=== PATIENT | female | born 1960 | race American Indian/Alaskan Native ===

== ENCOUNTER 2017-02-01 12:24 | Inpatient (IN) | payer MEDICAID, MEDICARE ==
[2017-02-01 12:34] VITALS: BMI 25.0
[2017-02-01] MEDS ORDERED: Glucagon Recombinant 1 mg Inj IV STA (12:58)
--- NOTE | 2017-02-01 13:14 | RAD ---
HISTORY: pain after eating COMPARISON: 05/27/2016 FINDINGS: LUNGS: No active pulmonary disease. PLEURA: Possible very small left pleural effusion. Vague opacity at left costophrenic angle. No evidence of right pleural effusion. CARDIOVASCULAR: Normal. OSSEOUS STRUCTURES: No significant abnormalities. VISUALIZED UPPER ABDOMEN: Normal. OTHER FINDINGS: None. IMPRESSION: Possible small left pleural effusion. Otherwise unremarkable examination.
--- NOTE | 2017-02-01 13:18 | C.PDOC ---
History Of Present Illness 57 y/o female presents to the ED with complaints of foreign body sensation in her chest since eating a hotdog 2 days ago. Pt has been able to tolerate liquids and solids, has eaten a turkey sandwich and drank tea and water since without vomiting. She reports having pain after eating and drinking. Pt scheduled for dialysis today. Denies SOB, vomiting, diarrhea or any other complaints. Time Seen by Provider: 02/01/17 12:32 Chief Complaint (Nursing): Foreign Body History Per: Patient History/Exam Limitations: no limitations Onset/Duration Of Symptoms: Days Current Symptoms Are (Timing): Still Present Severity: Mild Recent travel outside of the [place]: No Past Medical History Reviewed: Historical Data, Nursing Documentation, Vital Signs Vital Signs: Last Vital Signs Temp 98.2 F 02/01/17 12:34 Pulse 75 02/01/17 12:34 Resp 18 02/01/17 12:34 BP 153/82 H 02/01/17 12:34 Pulse Ox 97 02/01/17 13:22 - Medical History PMH: Anxiety, CHF, Dementia, Diabetes, HIV, HTN, Hyperthyroidism, Hypothyroidism , End Stage Renal Disease, Chronic Kidney Disease - [facility] Procedures CENTRAL VENOUS CATHETER PLACEMENT WITH GUIDANCE (09/12/13) FLUOROSCOPY OF RIGHT HEART USING LOW OSMOLAR CONTRAST (05/25/16) HEMODIALYSIS (08/26/14) IMMOBILIZATION OF RIGHT LOWER EXTREMITY USING CAST (05/25/16) IMMOBILIZATION OF RIGHT UPPER LEG USING SPLINT (05/25/16) INSERTION OF INFUSION DEV INTO INF VENA CAVA, PERC APPROACH (04/02/16) INSERTION OF INFUSION DEVICE INTO R [facility], PERC APPROACH (05/25/16) PERFORMANCE OF URINARY FILTRATION, MULTIPLE (05/25/16) REMOVAL OF INFUSION DEVICE FROM LOWER VEIN, PERC APPROACH (04/02/16) REPOSITION RIGHT LOWER FEMUR, EXTERNAL APPROACH (05/25/16) TRANSFUSE NONAUT RED BLOOD CELLS IN PERIPH VEIN, PERC (05/25/16) Family History: States: Unknown Family Hx - Social History Hx Tobacco Use: Yes (former smoker) Hx Alcohol Use: No Hx Substance Use: No - Immunization History Hx Tetanus Toxoid Vaccination: Yes Hx Influenza Vaccination: No Hx Pneumococcal Vaccination: No Review Of Systems Except As Marked, All Systems Reviewed And Found Negative. Constitutional: Negative for: Fever ENT: Positive for: Other (foreign body sensation in chest) Respiratory: Negative for: Shortness of Breath Gastrointestinal: Negative for: Vomiting, Diarrhea Physical Exam - Physical Exam Appears: Non-toxic, No Acute Distress Skin: Warm, Dry, No Rash Head: Atraumatic, Normacephalic Oral Mucosa: Moist Throat: Normal, No Erythema Neck: Normal, Normal ROM, Supple Chest: Symmetrical Cardiovascular: Rhythm Regular, No Murmur Respiratory: Normal Breath Sounds, No Rales, No Rhonchi, No Wheezing Gastrointestinal/Abdominal: Normal Exam, Soft, No Tenderness Extremity: Normal ROM, Other (Right AKA) Neurological/Psych: Oriented x3, Normal Speech ED Course And Treatment - Laboratory Results Result Diagrams: 02/01/17 13:44 02/01/17 13:44 ECG: Interpreted By Me, Viewed By Me ECG Rhythm: Sinus Rhythm Interpretation Of ECG: No acute ischemia Rate From EC (BPM) O2 Sat by Pulse Oximetry: 97 (room air) Pulse Ox Interpretation: Normal Progress Note: Plan: EKG, labs, CXR, glucagon, pepcid, zofran Disposition - Disposition Disposition: HOSPITALIZED Disposition Time: 13:59 Condition: STABLE - Clinical Impression Clinical Impression: Dysphagia - Scribe Statement The provider has reviewed the documentation as recorded by the Jesus Vital Provider Attestation: All medical record entries made by the Jesus were at my direction and personally dictated by me. I have reviewed the chart and agree that the record accurately reflects my personal performance of the history, physical exam, medical decision making, and the department course for this patient. I have also personally directed, reviewed, and agree with the discharge instructions and disposition.
[2017-02-01] MEDS ORDERED: Glucagon Recombinant 1 mg Inj ONE (13:40)
[2017-02-01 13:51] LABS: BASO % 0.9 % (0.0-2.0); EOS % 0.8 % (0.0-4.0); HEMOGLOBIN 11.6 g/dL (11.0-16.0); LYMPH # 1.2 K/uL (1.0-4.3); LYMPH % 21.8 % (20.0-40.0); MEAN CELL VOLUME 91.8 fL (81.0-99.0); MEAN CORPUSCULAR HEMOGLOBIN 29.2 pg (27.0-31.0); MEAN CORPUSCULAR HGB CONC 31.8 g/dL (33.0-37.0); MEAN PLATELET VOLUME 8.8 fL (7.2-11.7); MONO # 0.6 K/uL (0.0-0.8); MONO % 9.8 % (0.0-10.0); NEUT # 3.8 K/uL (1.8-7.0); NEUT % 66.7 % (50.0-75.0); NRBC % 0.1 % (0.0-2.0); RBC 3.98 Mil/uL (3.80-5.20); WHITE BLOOD COUNT 5.6 K/uL (4.8-10.8)
[2017-02-01 13:58] LABS: ALBUMIN 3.9 g/dL (3.5-5.0); INR 0.9; PROTHROMBIN TIME 10.7 SECONDS (9.7-12.2)
[2017-02-01 14:01] LABS: ALB/GLOB RATIO 0.7 (1.0-2.1)
[2017-02-01 14:02] LABS: CALCIUM 6.7 mg/dl (8.6-10.4)
[2017-02-01] MEDS ORDERED: Fluconazole IV 200mg/100 ml NS 100 MG in Premixed IV 1 EA IVPB SCH (15:45)
[2017-02-01] MEDS ORDERED: Brimonidine 0.2% Opth Sol (5ml) OU SCH (15:45)
--- NOTE | 2017-02-01 18:05 | CP.PCM.PN ---
Subjective - Date & Time of Evaluation Date of Evaluation: 02/01/17 Time of Evaluation: 09:20 - Subjective Subjective: clinically same Objective - Vital Signs/Intake and Output Vital Signs (last 24 hours): Temp Pulse Resp BP Pulse Ox 98.6 F 78 20 142/74 95 02/01/17 17:00 02/01/17 17:00 02/01/17 17:00 02/01/17 17:00 02/01/17 17:00 - Medications Medications: Current Medications Azithromycin (Zithromax) 1,200 mg PO Q7D [facility] Brimonidine Tartrate (Alphagan 0.2% Opht) 0 ml OS Q12H [facility] Cinacalcet (Sensipar) 60 mg PO DAILY [facility] Emtricitabine/Tenofovir (Truvada 200 Mg-300 Mg) 1 tab PO DAILY [facility] Famotidine (Pepcid) 20 mg PO DAILY [facility] Heparin Sodium (Porcine) (Heparin) 5,000 units SC Q8 [facility] Fluconazole (Diflucan Iv 100 Mg/50 Ml Ns) 50 mls @ 100 mls/hr IVPB Q24H [facility] Insulin Human Regular (Novolin R) 0 unit SC ACHS [facility] PRN Reason: Protocol Lopinavir/Ritonavir (Kaletra 200-50 Mg) 2 cap PO BID [facility] Magnesium Citrate (Citrate Of Mag) 300 ml PO DAILY [facility] Metoprolol Tartrate (Lopressor) 12.5 mg PO BID [facility] Nateglinide (Starlix) 60 mg PO DAILY [facility] Nystatin (Nystatin Oral Susp) 5 ml PO TID [facility] Raltegravir (Isentress) 400 mg PO BID [facility] Sevelamer Carbonate (Renvela) 800 mg PO TID [facility] Timolol Maleate (Timoptic 0.5% Ophth Soln) 1 drop OS BID [facility] Trimethoprim/Sulfamethoxazole (Bactrim Ds Tab) 1 tab PO MWF [facility] Vancomycin/Sodium Chloride (Vancocin) 1 gm IVPB MWF [facility] - Labs Labs: PT 10.7 SECONDS (9.7-12.2) 02/01/17 13:44 INR 0.9 02/01/17 13:44 APTT 33 SECONDS (21-34) 02/01/17 13:44 - Constitutional Appears: Well - Head Exam Head Exam: ATRAUMATIC, NORMAL INSPECTION, NORMOCEPHALIC - Eye Exam Eye Exam: EOMI, Normal appearance, PERRL Pupil Exam: NORMAL ACCOMODATION, PERRL - ENT Exam ENT Exam: Mucous Membranes Moist, Normal Exam - Neck Exam Neck Exam: Full ROM, Normal Inspection. absent: Lymphadenopathy - Respiratory Exam Respiratory Exam: Decreased Breath Sounds - Cardiovascular Exam Cardiovascular Exam: REGULAR RHYTHM, +S1, +S2 - GI/Abdominal Exam GI & Abdominal Exam: Soft, Diminished Bowel Sounds - Rectal Exam Rectal Exam: Deferred
--- NOTE | 2017-02-01 18:06 | CP.PCM.HP ---
Past Patient History - Infectious Disease Hx of Infectious Diseases: None - Past Medical History & Family History Past Medical History?: Yes - Past Social History Smoking Status: Former Smoker - CARDIAC Hx Congestive Heart Failure: Yes Hx Hypertension: Yes - PULMONARY Hx Respiratory Disorders: No - NEUROLOGICAL Hx Dementia: Yes - HEENT Hx HEENT Problems: Yes Hx Glaucoma: Yes (L Eye) - RENAL Hx Chronic Kidney Disease: Yes - ENDOCRINE/METABOLIC Hx Hyperthyroidism: Yes Hx Hypothyroidism: Yes - HEMATOLOGICAL/ONCOLOGICAL Hx Human Immunodeficiency Virus (HIV): Yes - INTEGUMENTARY Hx Dermatological Problems: No - MUSCULOSKELETAL/RHEUMATOLOGICAL Hx Musculoskeletal Disorders: Yes Hx Falls: Yes Other/Comment: right bka - GASTROINTESTINAL Hx Gastrointestinal Disorders: No - GENITOURINARY/GYNECOLOGICAL Hx Genitourinary Disorders: Yes Other/Comment: oliguria, on hemodialysis MWF - PSYCHIATRIC Hx Anxiety: Yes Hx Substance Use: No - SURGICAL HISTORY Hx Surgeries: Yes Hx Amputation: Yes (RIGHT BKA) Hx Orthopedic Surgery: Yes Hx Vascular Access Device: Yes (R lower back area) - ANESTHESIA Hx Anesthesia: Yes Hx Anesthesia Reactions: No Hx Malignant Hyperthermia: No Meds Allergies/Adverse Reactions: Allergies Allergy/AdvReac Type Severity Reaction Status Date / Time No Known Allergies Allergy Verified 02/01/17 12:33 Physical Exam - Constitutional Appears: Well - Head Exam Head Exam: ATRAUMATIC, NORMAL INSPECTION, NORMOCEPHALIC - Eye Exam Eye Exam: EOMI, Normal appearance, PERRL Pupil Exam: NORMAL ACCOMODATION, PERRL - ENT Exam ENT Exam: Mucous Membranes Moist, Normal Exam - Neck Exam Neck exam: Positive for: Normal Inspection - Respiratory Exam Respiratory Exam: Decreased Breath Sounds - Cardiovascular Exam Cardiovascular Exam: REGULAR RHYTHM, +S1, +S2 - GI/Abdominal Exam GI & Abdominal Exam: Diminished Bowel Sounds, Soft - Rectal Exam Rectal Exam: Deferred Results - Vital Signs Recent Vital Signs: Last Vital Signs Temp 98.6 F 02/01/17 17:00 Pulse 78 02/01/17 17:00 Resp 20 02/01/17 17:00 BP 142/74 02/01/17 17:00 Pulse Ox 95 02/01/17 17:00 - Labs Result Diagrams: 02/01/17 13:44 02/01/17 13:44
[2017-02-01] MEDS: (Novolin R) Insulin Human Regular 100 units/ml vial SC SCH ×2 (22:07→22:11)
[2017-02-01] MEDS: Nystatin 100,000 Units/ml Oral Susp 5 ml UD PO SCH (22:08)
[2017-02-01] MEDS: Lopinavir/Ritonavir Tab PO SCH (22:09)
[2017-02-01] MEDS: Fluconazole IV 100mg/50 ml NS 50 ML IVPB SCH (22:11)
--- NOTE | 2017-02-01 23:45 | CP.PCM.CON ---
History of Present Illness - History of Present Illness History of Present Illness: REASONS FOR CONSULT : ESRD ON HD [facility] .. NEEDS HD NOW .. PT WAS SEEN ON HD ANEMIA OF CKD .. OLD RECORDS ALL REVIEWED .. PT WAS SEEN AND EXAMINED .. WAS SEEN ON HD 57 y/o female presents to the ED with complaints of foreign body sensation in her chest since eating a hotdog 2 days ago. Pt has been able to tolerate liquids and solids, has eaten a turkey sandwich and drank tea and water since without vomiting. She reports having pain after eating and drinking. Pt scheduled for dialysis today. Denies SOB, vomiting, diarrhea or any other complaints. Time Seen by Provider: 02/01/17 12:32 Chief Complaint (Nursing): Foreign Body History Per: Patient History/Exam Limitations: no limitations Onset/Duration Of Symptoms: Days Current Symptoms Are (Timing): Still Present Severity: Mild Recent travel outside of the [place]: No Past Medical History Reviewed: Historical Data, Nursing Documentation, Vital Signs Vital Signs: Past Patient History - Infectious Disease Hx of Infectious Diseases: None - Past Medical History & Family History Past Medical History?: Yes - Past Social History Smoking Status: Never Smoked - CARDIAC Hx Congestive Heart Failure: Yes Hx Hypertension: Yes - PULMONARY Hx Respiratory Disorders: No - NEUROLOGICAL Hx Dementia: Yes - HEENT Hx HEENT Problems: Yes Hx Glaucoma: Yes (L Eye) - RENAL Hx Chronic Kidney Disease: Yes Date of Last Dialysis Treatment: 05/23/16 - ENDOCRINE/METABOLIC Hx Hyperthyroidism: Yes Hx Hypothyroidism: Yes - HEMATOLOGICAL/ONCOLOGICAL Hx Human Immunodeficiency Virus (HIV): Yes - INTEGUMENTARY Hx Dermatological Problems: No - MUSCULOSKELETAL/RHEUMATOLOGICAL Hx Musculoskeletal Disorders: Yes Hx Falls: Yes Other/Comment: right bka - GASTROINTESTINAL Hx Gastrointestinal Disorders: No - GENITOURINARY/GYNECOLOGICAL Hx Genitourinary Disorders: Yes Other/Comment: oliguria, on hemodialysis MWF - PSYCHIATRIC Hx Anxiety: Yes Hx Substance Use: No - SURGICAL HISTORY Hx Surgeries: Yes Hx Amputation: Yes (RIGHT BKA) Hx Orthopedic Surgery: Yes Hx Vascular Access Device: Yes (R lower back area) - ANESTHESIA Hx Anesthesia: Yes Hx Anesthesia Reactions: No Hx Malignant Hyperthermia: No Meds Allergies/Adverse Reactions: Allergies Allergy/AdvReac Type Severity Reaction Status Date / Time No Known Allergies Allergy Verified 02/01/17 12:33 - Medications Medications: Current Medications Azithromycin (Zithromax) 1,200 mg PO Q7D [facility] Last Admin: 02/01/17 22:23 Dose: 1,200 mg Brimonidine Tartrate (Alphagan 0.2% Opht) 0 ml OS Q12H [facility] Cinacalcet (Sensipar) 60 mg PO DAILY [facility] Emtricitabine/Tenofovir (Truvada 200 Mg-300 Mg) 1 tab PO DAILY [facility] Heparin Sodium (Porcine) (Heparin) 5,000 units SC Q8 [facility] Last Admin: 02/01/17 22:08 Dose: 5,000 units Heparin Sodium (Porcine) (Heparin) 6,500 units IVP MWF [facility] Stop: 02/04/17 21:01 Last Admin: 02/01/17 21:25 Dose: 6,500 units Fluconazole (Diflucan Iv 100 Mg/50 Ml Ns) 50 mls @ 100 mls/hr IVPB Q24H [facility] Last Admin: 02/01/17 22:11 Dose: 100 mls/hr Insulin Human Regular (Novolin R) 0 unit SC ACHS [facility] PRN Reason: Protocol Last Admin: 02/01/17 22:11 Dose: Not Given Lopinavir/Ritonavir (Kaletra 200-50 Mg) 2 cap PO BID [facility] Last Admin: 02/01/17 22:09 Dose: 2 cap Magnesium Citrate (Citrate Of Mag) 300 ml PO DAILY [facility] Metoprolol Tartrate (Lopressor) 12.5 mg PO BID [facility] Last Admin: 02/01/17 22:08 Dose: 12.5 mg Nateglinide (Starlix) 60 mg PO DAILY [facility] Nystatin (Nystatin Oral Susp) 5 ml PO TID [facility] Last Admin: 02/01/17 22:08 Dose: 5 ml Pantoprazole Sodium (Protonix Inj) 40 mg IVP DAILY [facility] Last Admin: 02/01/17 22:07 Dose: 40 mg Raltegravir (Isentress) 400 mg PO BID [facility] Last Admin: 02/01/17 22:09 Dose: 400 mg Sevelamer Carbonate (Renvela) 800 mg PO TID [facility] Last Admin: 02/01/17 22:13 Dose: Not Given Timolol Maleate (Timoptic 0.5% Ophth Soln) 1 drop OS BID [facility] Last Admin: 02/01/17 22:07 Dose: 1 applic Trimethoprim/Sulfamethoxazole (Bactrim Ds Tab) 1 tab PO MWF [facility] Vancomycin/Sodium Chloride (Vancocin) 1 gm IVPB MWF [facility] Results - Vital Signs Recent Vital Signs: Last Vital Signs Temp 99.8 F H 02/01/17 23:32 Pulse 85 02/01/17 23:32 Resp 20 02/01/17 23:32 BP 121/61 02/01/17 23:32 Pulse Ox 95 02/01/17 23:32 - Labs Result Diagrams: 02/01/17 13:44 02/01/17 13:44 Labs: Laboratory Results - last 24 hr 02/01/17 02/01/17 20:29 21:47 POC Glucose (mg/dL) 75 119 H Assessment & Plan - Assessment and Plan (Free Text) Assessment: ESRD ON HD M W F .. NOW SEEN ON HD .. CASE D/W HD RN ANRMIS OF CKD .. HGB > 10 .. NO EPO MULTIPLE CO MORBIDITIES P : C/O CURRENT CARE C/O PRESENT MANAGRMRNT WILL F/U CLOSELY - Date & Time Date: 02/01/17 Time: 17:00
[2017-02-02] MEDS: Brimonidine 0.2% Opth Sol (5ml) OS SCH ×2 (05:06→17:47)
--- NOTE | 2017-02-02 07:41 | CP.PCM.CON ---
<Lyssa Grant - Last Filed: 02/02/17 10:01> History of Present Illness - History of Present Illness History of Present Illness: Gastoenterology Fellow/PGY5 Consult Note 57 year old female with history of HIV on HAART therapy, Diabetes, Right BKA, Diabetes, Hypertension, left eye Glaucoma, and systolic CHF 40-45% presenting with epigastric pain. Patient describes eating a hot dog three days ago and feeling as though it did not completely pass with pain at her epigastrium. She notes being able to eat and drink daily without nausea or vomiting. She had a turkey sandwich two nights ago without dysphagia or odynophagia. She drank hot tea yesterday morning which relieved sensation of food stuck in throat. She presented to ER yesterday due to persistent epigastric pain described as acid reflux. Associated indigestion, heartburn, bloating, and indigestion. Denies diarrhea, constipation, melena, hematochezia, unintentional weight loss, chest pain, shortness of breath, or excessive salivation. Tolerated sips of water in ER and clear liquid diet overnight without nausea or vomiting. No prior EGD or colonoscopy. Family- denies colon cancer or stomach cancer Social- quit tobacco 5 years ago( previous 1 pack per week), denies alcohol or illicit drug use Surgery- R BKA, RUE AV fistula Review of Systems - Review of Systems Review of Systems: 12-point review of systems negative except for as above Past Patient History - Infectious Disease Hx of Infectious Diseases: None - Past Medical History & Family History Past Medical History?: Yes - Past Social History Smoking Status: Never Smoked - CARDIAC Hx Congestive Heart Failure: Yes Hx Hypertension: Yes - PULMONARY Hx Respiratory Disorders: No - NEUROLOGICAL Hx Dementia: Yes - HEENT Hx HEENT Problems: Yes Hx Glaucoma: Yes (L Eye) - RENAL Hx Chronic Kidney Disease: Yes Date of Last Dialysis Treatment: 05/23/16 - ENDOCRINE/METABOLIC Hx Hyperthyroidism: Yes Hx Hypothyroidism: Yes - HEMATOLOGICAL/ONCOLOGICAL Hx Human Immunodeficiency Virus (HIV): Yes - INTEGUMENTARY Hx Dermatological Problems: No - MUSCULOSKELETAL/RHEUMATOLOGICAL Hx Musculoskeletal Disorders: Yes Hx Falls: Yes Other/Comment: right bka - GASTROINTESTINAL Hx Gastrointestinal Disorders: No - GENITOURINARY/GYNECOLOGICAL Hx Genitourinary Disorders: Yes Other/Comment: oliguria, on hemodialysis MWF - PSYCHIATRIC Hx Anxiety: Yes Hx Substance Use: No - SURGICAL HISTORY Hx Surgeries: Yes Hx Amputation: Yes (RIGHT BKA) Hx Orthopedic Surgery: Yes Hx Vascular Access Device: Yes (R lower back area) - ANESTHESIA Hx Anesthesia: Yes Hx Anesthesia Reactions: No Hx Malignant Hyperthermia: No Meds Allergies/Adverse Reactions: Allergies Allergy/AdvReac Type Severity Reaction Status Date / Time No Known Allergies Allergy Verified 02/01/17 12:33 - Medications Medications: Current Medications Azithromycin (Zithromax) 1,200 mg PO Q7D [facility] Last Admin: 02/01/17 22:23 Dose: 1,200 mg Brimonidine Tartrate (Alphagan 0.2% Opht) 0 ml OS Q12H [facility] Last Admin: 02/02/17 05:06 Dose: 1 drop Cinacalcet (Sensipar) 60 mg PO DAILY [facility] Emtricitabine/Tenofovir (Truvada 200 Mg-300 Mg) 1 tab PO DAILY [facility] Heparin Sodium (Porcine) (Heparin) 5,000 units SC Q8 [facility] Last Admin: 02/02/17 06:06 Dose: 5,000 units Heparin Sodium (Porcine) (Heparin) 6,500 units IVP MWF [facility] Stop: 02/04/17 21:01 Last Admin: 02/01/17 21:25 Dose: 6,500 units Fluconazole (Diflucan Iv 100 Mg/50 Ml Ns) 50 mls @ 100 mls/hr IVPB Q24H [facility] Last Admin: 02/01/17 22:11 Dose: 100 mls/hr Insulin Human Regular (Novolin R) 0 unit SC ACHS [facility] PRN Reason: Protocol Last Admin: 02/01/17 22:11 Dose: Not Given Lopinavir/Ritonavir (Kaletra 200-50 Mg) 2 cap PO BID [facility] Last Admin: 02/01/17 22:09 Dose: 2 cap Magnesium Citrate (Citrate Of Mag) 300 ml PO DAILY [facility] Metoprolol Tartrate (Lopressor) 12.5 mg PO BID [facility] Last Admin: 02/01/17 22:08 Dose: 12.5 mg Nateglinide (Starlix) 60 mg PO DAILY [facility] Nystatin (Nystatin Oral Susp) 5 ml PO TID [facility] Last Admin: 02/01/17 22:08 Dose: 5 ml Pantoprazole Sodium (Protonix Inj) 40 mg IVP DAILY [facility] Last Admin: 02/01/17 22:07 Dose: 40 mg Raltegravir (Isentress) 400 mg PO BID [facility] Last Admin: 02/01/17 22:09 Dose: 400 mg Sevelamer Carbonate (Renvela) 800 mg PO TID [facility] Last Admin: 02/01/17 22:13 Dose: Not Given Timolol Maleate (Timoptic 0.5% Ophth Soln) 1 drop OS BID [facility] Last Admin: 02/01/17 22:07 Dose: 1 applic Trimethoprim/Sulfamethoxazole (Bactrim Ds Tab) 1 tab PO [facility] Vancomycin/Sodium Chloride (Vancocin) 1 gm IVPB [facility] Physical Exam - Constitutional Appears: Non-toxic, No Acute Distress - Head Exam Head Exam: ATRAUMATIC, NORMOCEPHALIC - Eye Exam Eye Exam: EOMI, PERRL Pupil Exam: PERRL. absent: Miosis, Mydriatic - ENT Exam ENT Exam: Mucous Membranes Moist, Normal Oropharynx - Neck Exam Neck exam: Positive for: Full Rom, Normal Inspection - Respiratory Exam Respiratory Exam: Clear to Auscultation Bilateral. absent: Rales, Rhonchi, Wheezes - Cardiovascular Exam Cardiovascular Exam: RRR, +S1, +S2. absent: Gallop, Rubs - GI/Abdominal Exam GI & Abdominal Exam: Normal Bowel Sounds, Soft, Tenderness. absent: Distended, Firm, Guarding, Organomegaly, Rebound, Rigid Additional comments: mild epigastric tenderness to palpation - Extremities Exam Extremities exam: Negative for: pedal edema Additional comments: right BKA, left heel dried pressure ulcer - Neurological Exam Neurological exam: Alert - Psychiatric Exam Psychiatric exam: Normal Affect, Normal Mood - Skin Skin Exam: Dry, Intact, Normal Color, Warm Results - Vital Signs Recent Vital Signs: Last Vital Signs Temp 99.8 F H 02/01/17 23:32 Pulse 85 02/01/17 23:32 Resp 20 02/01/17 23:32 BP 121/61 02/01/17 23:32 Pulse Ox 95 02/01/17 23:32 - Labs Result Diagrams: 02/01/17 13:44 02/01/17 13:44 Labs: Laboratory Results - last 24 hr 02/01/17 02/01/17 20:29 21:47 POC Glucose (mg/dL) 75 119 H Assessment & Plan - Assessment and Plan (Free Text) Assessment: 57 year old female with history of HIV on HAART therapy, Diabetes, Right BKA, Diabetes, Hypertension, left eye Glaucoma, and systolic CHF 40-45% presenting with epigastric pain. Active treatment of resolved foreign body sensation and dyspepsia. No prior EGD or colonoscopy. Plan: >tolerating clear liquids >advance to full liquid diet >continue PPI daily >supportive care: anti-emetics, IVFs >will benefit from elective endoscopic evaluation to evaluate for esophagitis, H pylori Gastritis >will benefit form elective colonoscopy for CRC screening >will follow clinical course <Micha Forbes - Last Filed: 02/02/17 11:42> Meds - Medications Medications: Current Medications Azithromycin (Zithromax) 1,200 mg PO Q7D [facility] Last Admin: 02/01/17 22:23 Dose: 1,200 mg Brimonidine Tartrate (Alphagan 0.2% Opht) 0 ml OS Q12H [facility] Last Admin: 02/02/17 05:06 Dose: 1 drop Cinacalcet (Sensipar) 60 mg PO DAILY [facility] Last Admin: 02/02/17 10:46 Dose: Not Given Emtricitabine/Tenofovir (Truvada 200 Mg-300 Mg) 1 tab PO DAILY [facility] Last Admin: 02/02/17 10:46 Dose: Not Given Heparin Sodium (Porcine) (Heparin) 5,000 units SC Q8 [facility] Last Admin: 02/02/17 06:06 Dose: 5,000 units Heparin Sodium (Porcine) (Heparin) 6,500 units IVP MWF [facility] Stop: 02/04/17 21:01 Last Admin: 02/01/17 21:25 Dose: 6,500 units Fluconazole (Diflucan Iv 100 Mg/50 Ml Ns) 50 mls @ 100 mls/hr IVPB Q24H [facility] Last Admin: 02/01/17 22:11 Dose: 100 mls/hr Insulin Human Regular (Novolin R) 0 unit SC ACHS [facility] PRN Reason: Protocol Last Admin: 02/02/17 07:46 Dose: Not Given Lopinavir/Ritonavir (Kaletra 200-50 Mg) 2 cap PO BID [facility] Last Admin: 02/02/17 10:45 Dose: Not Given Magnesium Citrate (Citrate Of Mag) 300 ml PO DAILY [facility] Last Admin: 02/02/17 10:45 Dose: Not Given Metoprolol Tartrate (Lopressor) 12.5 mg PO BID [facility] Last Admin: 02/02/17 10:45 Dose: Not Given Nateglinide (Starlix) 60 mg PO DAILY [facility] Last Admin: 02/02/17 10:46 Dose: Not Given Nystatin (Nystatin Oral Susp) 5 ml PO TID [facility] Last Admin: 02/02/17 10:45 Dose: Not Given Pantoprazole Sodium (Protonix Inj) 40 mg IVP DAILY [facility] Last Admin: 02/02/17 10:45 Dose: Not Given Raltegravir (Isentress) 400 mg PO BID [facility] Last Admin: 02/02/17 10:45 Dose: Not Given Sevelamer Carbonate (Renvela) 800 mg PO TID [facility] Last Admin: 02/02/17 10:45 Dose: Not Given Timolol Maleate (Timoptic 0.5% Oph Soln) 1 drop OS BID [facility] Last Admin: 02/02/17 10:46 Dose: Not Given Trimethoprim/Sulfamethoxazole (Bactrim Ds Tab) 1 tab PO [facility] Vancomycin/Sodium Chloride (Vancocin) 1 gm IVPB [facility] Results - Vital Signs Recent Vital Signs: Last Vital Signs Temp 99.8 F H 02/01/17 23:32 Pulse 85 02/01/17 23:32 Resp 20 02/01/17 23:32 BP 121/61 02/01/17 23:32 Pulse Ox 95 02/01/17 23:32 - Labs Result Diagrams: 02/01/17 13:44 02/01/17 13:44 Labs: Laboratory Results - last 24 hr 02/01/17 02/01/17 02/02/17 20:29 21:47 07:40 POC Glucose (mg/dL) 75 119 H 73 Attending/Attestation - Attestation I have personally seen and examined this patient.: Yes I have fully participated in the care of the patient.: Yes I have reviewed all pertinent clinical information: Yes Notes (Text): 02/02/17 11:40 57 year old female with h/o HIV on HAART, DM, Right BKA, HTN, CHF complaing of dyspepsia. 1. Dyspepsia Plan: -no real evidence of food impaction, patient is swallowing fine and tolerating liquid diet -epigsatric discomfort is improved with PPI -advance diet as tolerated -continue ppi -recommend outpatient endoscopy / colonoscopy (screening) -will sign off at this time
[2017-02-02] MEDS: (Novolin R) Insulin Human Regular 100 units/ml vial SC SCH ×4 (07:46→22:11)
[2017-02-02] MEDS: Lopinavir/Ritonavir Tab PO SCH ×2 (10:45→18:48)
[2017-02-02] MEDS: Nystatin 100,000 Units/ml Oral Susp 5 ml UD PO SCH ×3 (10:45→17:49)
[2017-02-02] MEDS: Magnesium Citrate Oral SOL (300 ml) PO SCH (10:45)
[2017-02-02] MEDS: Emtricitabine-Tenofovir 200 mg-300 mg Tab PO SCH (10:46)
--- NOTE | 2017-02-02 13:31 | CP.PCM.CON ---
Past Patient History - Infectious Disease Hx of Infectious Diseases: None - Past Medical History & Family History Past Medical History?: Yes - Past Social History Smoking Status: Never Smoked - CARDIAC Hx Congestive Heart Failure: Yes Hx Hypertension: Yes - PULMONARY Hx Respiratory Disorders: No - NEUROLOGICAL Hx Dementia: Yes - HEENT Hx HEENT Problems: Yes Hx Glaucoma: Yes (L Eye) - RENAL Hx Chronic Kidney Disease: Yes Date of Last Dialysis Treatment: 05/23/16 - ENDOCRINE/METABOLIC Hx Hyperthyroidism: Yes Hx Hypothyroidism: Yes - HEMATOLOGICAL/ONCOLOGICAL Hx Human Immunodeficiency Virus (HIV): Yes - INTEGUMENTARY Hx Dermatological Problems: No - MUSCULOSKELETAL/RHEUMATOLOGICAL Hx Musculoskeletal Disorders: Yes Hx Falls: Yes Other/Comment: right bka - GASTROINTESTINAL Hx Gastrointestinal Disorders: No - GENITOURINARY/GYNECOLOGICAL Hx Genitourinary Disorders: Yes Other/Comment: oliguria, on hemodialysis MWF - PSYCHIATRIC Hx Anxiety: Yes Hx Substance Use: No - SURGICAL HISTORY Hx Surgeries: Yes Hx Amputation: Yes (RIGHT BKA) Hx Orthopedic Surgery: Yes Hx Vascular Access Device: Yes (R lower back area) - ANESTHESIA Hx Anesthesia: Yes Hx Anesthesia Reactions: No Hx Malignant Hyperthermia: No Meds Allergies/Adverse Reactions: Allergies Allergy/AdvReac Type Severity Reaction Status Date / Time No Known Allergies Allergy Verified 02/01/17 12:33 - Medications Medications: Current Medications Azithromycin (Zithromax) 1,200 mg PO Q7D [facility] Last Admin: 02/01/17 22:23 Dose: 1,200 mg Brimonidine Tartrate (Alphagan 0.2% Opht) 0 ml OS Q12H [facility] Last Admin: 02/02/17 05:06 Dose: 1 drop Cinacalcet (Sensipar) 60 mg PO DAILY [facility] Last Admin: 02/02/17 10:46 Dose: Not Given Emtricitabine/Tenofovir (Truvada 200 Mg-300 Mg) 1 tab PO DAILY [facility] Last Admin: 02/02/17 10:46 Dose: Not Given Heparin Sodium (Porcine) (Heparin) 5,000 units SC Q8 [facility] Last Admin: 02/02/17 06:06 Dose: 5,000 units Heparin Sodium (Porcine) (Heparin) 6,500 units IVP MWF [facility] Stop: 02/04/17 21:01 Last Admin: 02/01/17 21:25 Dose: 6,500 units Fluconazole (Diflucan Iv 100 Mg/50 Ml Ns) 50 mls @ 100 mls/hr IVPB Q24H [facility] Last Admin: 02/01/17 22:11 Dose: 100 mls/hr Insulin Human Regular (Novolin R) 0 unit SC ACHS [facility] PRN Reason: Protocol Last Admin: 02/02/17 12:06 Dose: Not Given Lopinavir/Ritonavir (Kaletra 200-50 Mg) 2 cap PO BID [facility] Last Admin: 02/02/17 10:45 Dose: Not Given Magnesium Citrate (Citrate Of Mag) 300 ml PO DAILY [facility] Last Admin: 02/02/17 10:45 Dose: Not Given Metoprolol Tartrate (Lopressor) 12.5 mg PO BID [facility] Last Admin: 02/02/17 10:45 Dose: Not Given Nateglinide (Starlix) 60 mg PO DAILY [facility] Last Admin: 02/02/17 10:46 Dose: Not Given Nystatin (Nystatin Oral Susp) 5 ml PO TID [facility] Last Admin: 02/02/17 10:45 Dose: Not Given Pantoprazole Sodium (Protonix Inj) 40 mg IVP DAILY [facility] Last Admin: 02/02/17 10:45 Dose: Not Given Raltegravir (Isentress) 400 mg PO BID [facility] Last Admin: 02/02/17 10:45 Dose: Not Given Sevelamer Carbonate (Renvela) 800 mg PO TID [facility] Last Admin: 02/02/17 10:45 Dose: Not Given Timolol Maleate (Timoptic 0.5% Ophth Soln) 1 drop OS BID [facility] Last Admin: 02/02/17 10:46 Dose: Not Given Trimethoprim/Sulfamethoxazole (Bactrim Ds Tab) 1 tab PO [facility] Vancomycin/Sodium Chloride (Vancocin) 1 gm IVPB [facility] Results - Vital Signs Recent Vital Signs: Last Vital Signs Temp 99.8 F H 02/01/17 23:32 Pulse 85 02/01/17 23:32 Resp 20 02/01/17 23:32 BP 121/61 02/01/17 23:32 Pulse Ox 95 02/01/17 23:32 - Labs Result Diagrams: 02/01/17 13:44 02/01/17 13:44 Labs: Laboratory Results - last 24 hr 02/01/17 02/01/17 02/02/17 20:29 21:47 07:40 POC Glucose (mg/dL) 75 119 H 73 02/02/17 02/02/17 11:45 12:14 POC Glucose (mg/dL) 66 114 H
--- NOTE | 2017-02-02 14:24 | CP.PCM.PN ---
Subjective - Date & Time of Evaluation Date of Evaluation: 02/02/17 Time of Evaluation: 09:20 - Subjective Subjective: clinically same Objective - Vital Signs/Intake and Output Vital Signs (last 24 hours): Temp Pulse Resp BP Pulse Ox 99.8 F H 85 20 121/61 95 02/01/17 23:32 02/01/17 23:32 02/01/17 23:32 02/01/17 23:32 02/01/17 23:32 - Medications Medications: Current Medications Azithromycin (Zithromax) 1,200 mg PO Q7D [facility] Last Admin: 02/01/17 22:23 Dose: 1,200 mg Brimonidine Tartrate (Alphagan 0.2% Opht) 0 ml OS Q12H [facility] Last Admin: 02/02/17 05:06 Dose: 1 drop Cinacalcet (Sensipar) 60 mg PO DAILY [facility] Last Admin: 02/02/17 10:46 Dose: Not Given Emtricitabine/Tenofovir (Truvada 200 Mg-300 Mg) 1 tab PO DAILY [facility] Last Admin: 02/02/17 10:46 Dose: Not Given Heparin Sodium (Porcine) (Heparin) 5,000 units SC Q8 [facility] Last Admin: 02/02/17 13:35 Dose: Not Given Heparin Sodium (Porcine) (Heparin) 6,500 units IVP MWF [facility] Stop: 02/04/17 21:01 Last Admin: 02/01/17 21:25 Dose: 6,500 units Fluconazole (Diflucan Iv 100 Mg/50 Ml Ns) 50 mls @ 100 mls/hr IVPB Q24H [facility] Last Admin: 02/01/17 22:11 Dose: 100 mls/hr Insulin Human Regular (Novolin R) 0 unit SC ACHS [facility] PRN Reason: Protocol Last Admin: 02/02/17 12:06 Dose: Not Given Lopinavir/Ritonavir (Kaletra 200-50 Mg) 2 cap PO BID [facility] Last Admin: 02/02/17 10:45 Dose: Not Given Magnesium Citrate (Citrate Of Mag) 300 ml PO DAILY [facility] Last Admin: 02/02/17 10:45 Dose: Not Given Metoprolol Tartrate (Lopressor) 12.5 mg PO BID [facility] Last Admin: 02/02/17 10:45 Dose: Not Given Nateglinide (Starlix) 60 mg PO DAILY [facility] Last Admin: 02/02/17 10:46 Dose: Not Given Nystatin (Nystatin Oral Susp) 5 ml PO TID [facility] Last Admin: 02/02/17 13:35 Dose: Not Given Pantoprazole Sodium (Protonix Inj) 40 mg IVP DAILY [facility] Last Admin: 02/02/17 10:45 Dose: Not Given Raltegravir (Isentress) 400 mg PO BID [facility] Last Admin: 02/02/17 10:45 Dose: Not Given Sevelamer Carbonate (Renvela) 800 mg PO TID [facility] Last Admin: 02/02/17 13:35 Dose: Not Given Timolol Maleate (Timoptic 0.5% Ophth Soln) 1 drop OS BID [facility] Last Admin: 02/02/17 10:46 Dose: Not Given Trimethoprim/Sulfamethoxazole (Bactrim Ds Tab) 1 tab PO [facility] [place] Vancomycin/Sodium Chloride (Vancocin) 1 gm IVPB [facility] [place] - Labs Labs: PT 10.7 SECONDS (9.7-12.2) 02/01/17 13:44 INR 0.9 02/01/17 13:44 APTT 33 SECONDS (21-34) 02/01/17 13:44 - Constitutional Appears: Well - Head Exam Head Exam: ATRAUMATIC, NORMAL INSPECTION, NORMOCEPHALIC - Eye Exam Eye Exam: EOMI, Normal appearance, PERRL Pupil Exam: NORMAL ACCOMODATION, PERRL - ENT Exam ENT Exam: Mucous Membranes Moist, Normal Exam - Neck Exam Neck Exam: Full ROM, Normal Inspection. absent: Lymphadenopathy - Respiratory Exam Respiratory Exam: Decreased Breath Sounds - Cardiovascular Exam Cardiovascular Exam: REGULAR RHYTHM, +S1, +S2 - GI/Abdominal Exam GI & Abdominal Exam: Soft, Diminished Bowel Sounds - Rectal Exam Rectal Exam: Deferred
[2017-02-02] MEDS: Fluconazole IV 100mg/50 ml NS 50 ML IVPB SCH (17:49)
--- NOTE | 2017-02-02 18:05 | CP.PCM.PN ---
Subjective - Date & Time of Evaluation Date of Evaluation: 02/02/17 Time of Evaluation: 18:04 - Subjective Subjective: for hd on mon vss stable for same w/up in progress. Objective - Vital Signs/Intake and Output Vital Signs (last 24 hours): Temp Pulse Resp BP Pulse Ox 99.2 F 71 20 130/80 98 02/02/17 15:10 02/02/17 15:10 02/02/17 15:10 02/02/17 15:10 02/02/17 15:10 Intake and Output: 02/02/17 02/02/17 06:59 18:59 Intake Total 75 Balance 75 - Medications Medications: Current Medications Azithromycin (Zithromax) 1,200 mg PO Q7D [facility] Last Admin: 02/01/17 22:23 Dose: 1,200 mg Brimonidine Tartrate (Alphagan 0.2% Opht) 0 ml OS Q12H [facility] Last Admin: 02/02/17 17:47 Dose: 1 drop Cinacalcet (Sensipar) 60 mg PO DAILY [facility] Last Admin: 02/02/17 10:46 Dose: Not Given Emtricitabine/Tenofovir (Truvada 200 Mg-300 Mg) 1 tab PO DAILY [facility] Last Admin: 02/02/17 10:46 Dose: Not Given Heparin Sodium (Porcine) (Heparin) 5,000 units SC Q8 [facility] Last Admin: 02/02/17 13:35 Dose: Not Given Heparin Sodium (Porcine) (Heparin) 6,500 units IVP MWF [facility] Stop: 02/04/17 21:01 Last Admin: 02/01/17 21:25 Dose: 6,500 units Fluconazole (Diflucan Iv 100 Mg/50 Ml Ns) 50 mls @ 100 mls/hr IVPB Q24H [facility] Last Admin: 02/02/17 17:49 Dose: 100 mls/hr Insulin Human Regular (Novolin R) 0 unit SC ACHS [facility] PRN Reason: Protocol Last Admin: 02/02/17 17:59 Dose: Not Given Lopinavir/Ritonavir (Kaletra 200-50 Mg) 2 cap PO BID [facility] Last Admin: 02/02/17 10:45 Dose: Not Given Magnesium Citrate (Citrate Of Mag) 300 ml PO DAILY [facility] Last Admin: 02/02/17 10:45 Dose: Not Given Metoprolol Tartrate (Lopressor) 12.5 mg PO BID [facility] Last Admin: 02/02/17 17:48 Dose: 12.5 mg Nateglinide (Starlix) 60 mg PO DAILY [facility] Last Admin: 02/02/17 10:46 Dose: Not Given Nystatin (Nystatin Oral Susp) 5 ml PO TID [facility] Last Admin: 02/02/17 17:49 Dose: 5 ml Pantoprazole Sodium (Protonix Inj) 40 mg IVP DAILY [facility] Last Admin: 02/02/17 10:45 Dose: Not Given Raltegravir (Isentress) 400 mg PO BID [facility] Last Admin: 02/02/17 10:45 Dose: Not Given Sevelamer Carbonate (Renvela) 800 mg PO TID [facility] Last Admin: 02/02/17 17:48 Dose: 800 mg Timolol Maleate (Timoptic 0.5% Ophth Soln) 1 drop OS BID [facility] Last Admin: 02/02/17 18:00 Dose: 1 applic Trimethoprim/Sulfamethoxazole (Bactrim Ds Tab) 1 tab PO [facility] [place] Vancomycin/Sodium Chloride (Vancocin) 1 gm IVPB [facility] - Labs Labs: PT 10.7 SECONDS (9.7-12.2) 02/01/17 13:44 INR 0.9 02/01/17 13:44 APTT 33 SECONDS (21-34) 02/01/17 13:44 - Constitutional Appears: Non-toxic - Head Exam Head Exam: NORMAL INSPECTION - Eye Exam Eye Exam: Normal appearance Pupil Exam: NORMAL ACCOMODATION - ENT Exam ENT Exam: Mucous Membranes Moist - Neck Exam Neck Exam: Normal Inspection - Respiratory Exam Respiratory Exam: NORMAL BREATHING PATTERN - Cardiovascular Exam Cardiovascular Exam: REGULAR RHYTHM - GI/Abdominal Exam GI & Abdominal Exam: Soft - Neurological Exam Neurological Exam: Alert, Awake - Psychiatric Exam Psychiatric exam: Normal Affect, Normal Mood
[2017-02-03] MEDS: Brimonidine 0.2% Opth Sol (5ml) OS SCH ×3 (05:11→18:34)
[2017-02-03] MEDS: (Novolin R) Insulin Human Regular 100 units/ml vial SC SCH ×4 (08:07→21:26)
[2017-02-03] MEDS: Magnesium Citrate Oral SOL (300 ml) PO SCH (09:43)
[2017-02-03] MEDS: Lopinavir/Ritonavir Tab PO SCH ×2 (09:43→18:10)
[2017-02-03] MEDS: Nystatin 100,000 Units/ml Oral Susp 5 ml UD PO SCH ×3 (09:43→18:11)
[2017-02-03] MEDS: Emtricitabine-Tenofovir 200 mg-300 mg Tab PO SCH (09:44)
[2017-02-03] MEDS: Pantoprazole 40 mg EC Tab PO SCH (09:45)
--- NOTE | 2017-02-03 15:25 | CP.PCM.CON ---
History of Present Illness - History of Present Illness History of Present Illness: 57 y/o female presents to the ED with complaints of foreign body sensation in her chest since eating a hotdog 2 days ago. Pt has been able to tolerate liquids and solids, has eaten a turkey sandwich and drank tea and water since without vomiting. She reports having pain after eating and drinking. Pt scheduled for dialysis today. Denies SOB, vomiting, diarrhea or any other complaints. is on HD for CKD has had R BKA and is on HAART rx for HIV CD4 Unknown - Medical History PMH: Anxiety, CHF, Dementia, Diabetes, HIV, HTN, Hyperthyroidism, Hypothyroidism , End Stage Renal Disease, Chronic Kidney Disease Review of Systems - Review of Systems Systems not reviewed;Unavailable: Altered Mental Status - Constitutional Constitutional: As Per HPI - EENT Eyes: absent: As Per HPI, Blind Spots, Blurred Vision, Change in Vision, Decreased Night Vision, Diplopia, Discharge, Dry Eye, Exophthalmos, Floaters, Irritation, Itchy Eyes, Loss of Peripheral Vision, Pain, Photophobia, Requires Corrective Lenses, Sees Flashes, Spots in Vision, Tunnel Vision, Other Visual Disturbances, Loss of Vision, Other Ears: absent: As Per HPI, Decreased Hearing, Ear Discharge, Ear Pain, Tinnitus, Abnormal Hearing, Disequilibrium, Dizziness, Other Nose/Mouth/Throat: absent: As Per HPI, Epistaxis, Nasal Congestion, Nasal Discharge, Nasal Obstruction, Nasal Trauma, Nose Pain, Post Nasal Drip, Sinus Pain, Sinus Pressure, Bleeding Gums, Change in Voice, Dental Pain, Dry Mouth, Dysphagia, Halitosis, Hoarsness, Lip Swelling, Mouth Lesions, Mouth Pain, Odynophagia, Sore Throat, Throat Swelling, Tongue Swelling, Facial Pain, Neck Pain, Neck Mass, Other - Breasts Breasts: absent: As Per HPI, Change in Shape, Mass, Pain, Nipple Discharge, Nipple Inversion, Skin Changes, Swelling, Other - Cardiovascular Cardiovascular: absent: As Per HPI, Acrocyanosis, Chest Pain, Chest Pain at Rest , Chest Pain with Activity, Claudication, Diaphoresis, Dyspnea, Dyspnea on Exertion, Edema, Irregular Heart Rhythm, Pain Radiating to Arm/Neck/Jaw, Leg Edema, Leg Ulcers, Lightheadedness, Orthopnea, Palpitations, Paroxysmal Nocturnal Dyspnea, Pedal Edema, Radiating Pain, Rapid Heart Rate, Slow Heart Rate, Syncope, Other - Respiratory Respiratory: absent: As Per HPI, Cough, Dyspnea, Hemoptysis, Dyspnea on Exertion , Wheezing, Snoring, Stridor, Pain on Inspiration, Chest Congestion, Excessive Mucous Production, Change in Mucous Color, Pain with Coughing, Other - Gastrointestinal Gastrointestinal: As Per HPI - Genitourinary Genitourinary: absent: As Per HPI, Change in Urinary Stream, Difficulty Urinating, Dysuria, Flank Pain, Hematuria, Pyuria, Nocturia, Urinary Incontinence, Urinary Frequency, Urinary Hesitance, Urinary Urgency, Voiding Freq/Small Amts, Freq UTI, Hx Renal/Bladder Calculi, Hx /Renal Surgery, Bladder Distension, Other - Reproductive: Female Reproductive:Female: absent: As Per HPI, Amenorrhea, Amenorrhea/ Control, Currently Menstual, Cycle <21 Days, Cycle >35 Days, Cycle Variable, Menses 1-7 Days, Menses >/= 8 Days, Menses Variable, Cycle > 4 Weeks Between, No Menses for 6 Months, Heavy Menses, Light Menses, Normal Menses, Spotting Between Cycles , S/P Hysterectomy, Menopausal, Post Menopausal, Premenarche, Abnormal Vaginal Bleeding, Dysmenorrhea, Dyspareunia, Genital Lesions, Genital Pruritis, Pelvic Pain, Prolapse Symptoms, Sexual Dysfunction, Vaginal Discharge, Vaginal Dryness , Vaginal Odor, Vaginal Pruritis, Other - Menstruation Menstruation: absent: As Per HPI, Amenorrhea, Amenorrhea/ Control, Currently Menstual, Cycle <21 Days, Cycle >35 Days, Cycle Variable, Menses 1-7 Days, Menses >/= 8 Days, Menses Variable, Cycle > 4 Weeks Between, No Menses for 6 Months, Heavy Menses, Light Menses, Normal Menses, Spotting Between Cycles , S/P Hysterectomy, Menopausal, Post Menopausal, Premenarche, Abnormal Vaginal Bleeding, Dysmenorrhea, Other - Musculoskeletal Musculoskeletal: As Per HPI - Integumentary Integumentary: absent: As Per HPI, Acne, Alopecia, Bleeding Lesions, Change in Hair, Change in Nails, Change in Pigmentation, Changing Lesions, Dry Skin, Erythema, Furuncle, Hirsutism, Lesions, New Lesions, Non-Healing Lesions, Photosensitivity, Pruritus, Rash, Skin Pain, Skin Ulcer, Sores, Striae, Swelling , Unusual Bruising, Wounds, Jaundice, Other - Neurological Neurological: As Per HPI - Psychiatric Psychiatric: absent: As Per HPI, Abnormal Sleep Pattern, Anhedonia, Anxiety, Auditory Hallucinations, Behavioral Changes, Change in Appetite, Change in Libido, Confusion, Depression, Difficulty Concentrating, Hallucinations, Homicidal Ideation, Hopelessness, Irritability, Memory Loss, Mood Swings, Panic Attacks, Paranoia, Suicidal Ideation, Visual Hallucinations, Tactile Hallucinations, Other - Endocrine Endocrine: As Per HPI - Hematologic/Lymphatic Hematologic: absent: As Per HPI, Easy Bleeding, Easy Bruising, Lymphadenopathy, Other Past Patient History - Infectious Disease Hx of Infectious Diseases: None - Past Medical History & Family History Past Medical History?: Yes - Past Social History Smoking Status: Never Smoked - CARDIAC Hx Congestive Heart Failure: Yes Hx Hypertension: Yes - PULMONARY Hx Respiratory Disorders: No - NEUROLOGICAL Hx Dementia: Yes - HEENT Hx HEENT Problems: Yes Hx Glaucoma: Yes (L Eye) - RENAL Hx Chronic Kidney Disease: Yes Date of Last Dialysis Treatment: 05/23/16 - ENDOCRINE/METABOLIC Hx Hyperthyroidism: Yes Hx Hypothyroidism: Yes - HEMATOLOGICAL/ONCOLOGICAL Hx Human Immunodeficiency Virus (HIV): Yes - INTEGUMENTARY Hx Dermatological Problems: No - MUSCULOSKELETAL/RHEUMATOLOGICAL Hx Musculoskeletal Disorders: Yes Hx Falls: Yes Other/Comment: right bka - GASTROINTESTINAL Hx Gastrointestinal Disorders: No - GENITOURINARY/GYNECOLOGICAL Hx Genitourinary Disorders: Yes Other/Comment: oliguria, on hemodialysis MWF - PSYCHIATRIC Hx Anxiety: Yes Hx Substance Use: No - SURGICAL HISTORY Hx Surgeries: Yes Hx Amputation: Yes (RIGHT BKA) Hx Orthopedic Surgery: Yes Hx Vascular Access Device: Yes (R lower back area) - ANESTHESIA Hx Anesthesia: Yes Hx Anesthesia Reactions: No Hx Malignant Hyperthermia: No Meds Allergies/Adverse Reactions: Allergies Allergy/AdvReac Type Severity Reaction Status Date / Time No Known Allergies Allergy Verified 02/01/17 12:33 - Medications Medications: Current Medications Azithromycin (Zithromax) 1,200 mg PO Q7D [facility] Last Admin: 02/01/17 22:23 Dose: 1,200 mg Brimonidine Tartrate (Alphagan 0.2% Opht) 0 ml OS Q12H [facility] Last Admin: 02/03/17 05:11 Dose: 1 drop Cinacalcet (Sensipar) 60 mg PO DAILY [facility] Last Admin: 02/03/17 09:44 Dose: 60 mg Emtricitabine/Tenofovir (Truvada 200 Mg-300 Mg) 1 tab PO DAILY [facility] Last Admin: 02/03/17 09:44 Dose: 1 tab Heparin Sodium (Porcine) (Heparin) 5,000 units SC Q8 [facility] Last Admin: 02/03/17 13:02 Dose: Not Given Heparin Sodium (Porcine) (Heparin) 6,500 units IVP [facility] [place] Stop: 02/04/17 21:01 Last Admin: 02/01/17 21:25 Dose: 6,500 units Fluconazole (Diflucan Iv 100 Mg/50 Ml Ns) 50 mls @ 100 mls/hr IVPB Q24H [facility] Last Admin: 02/02/17 17:49 Dose: 100 mls/hr Insulin Human Regular (Novolin R) 0 unit SC ACHS [facility] PRN Reason: Protocol Last Admin: 02/03/17 11:56 Dose: Not Given Lopinavir/Ritonavir (Kaletra 200-50 Mg) 2 cap PO BID [facility] Last Admin: 02/03/17 09:43 Dose: 2 cap Magnesium Citrate (Citrate Of Mag) 300 ml PO DAILY [facility] Last Admin: 02/03/17 09:43 Dose: 300 ml Metoprolol Tartrate (Lopressor) 12.5 mg PO BID [facility] Last Admin: 02/03/17 09:44 Dose: 12.5 mg Nateglinide (Starlix) 60 mg PO DAILY [facility] Last Admin: 02/03/17 09:45 Dose: 60 mg Nystatin (Nystatin Oral Susp) 5 ml PO TID [facility] Last Admin: 02/03/17 13:02 Dose: 5 ml Pantoprazole Sodium (Protonix Ec Tab) 40 mg PO DAILY [facility] Last Admin: 02/03/17 09:45 Dose: 40 mg Raltegravir (Isentress) 400 mg PO BID [facility] Last Admin: 02/03/17 09:44 Dose: 400 mg Sevelamer Carbonate (Renvela) 800 mg PO TID [facility] Last Admin: 02/03/17 13:02 Dose: 800 mg Timolol Maleate (Timoptic 0.5% Oph Soln) 1 drop OS BID [facility] Last Admin: 02/03/17 09:44 Dose: 1 applic Trimethoprim/Sulfamethoxazole (Bactrim Ds Tab) 1 tab PO [facility] [place] Vancomycin/Sodium Chloride (Vancocin) 1 gm IVPB [facility] [place] Physical Exam - Constitutional Appears: Non-toxic, Cachectic, Chronically Ill - Head Exam Head Exam: ATRAUMATIC, NORMAL INSPECTION, NORMOCEPHALIC - Eye Exam Eye Exam: EOMI, PERRL. absent: Scleral icterus - ENT Exam ENT Exam: Mucous Membranes Dry, Normal External Ear Exam, Normal Oropharynx - Neck Exam Neck exam: Negative for: Lymphadenopathy, Thyromegaly - Respiratory Exam Respiratory Exam: Decreased Breath Sounds, Rhonchi - Cardiovascular Exam Cardiovascular Exam: REGULAR RHYTHM, +S1, +S2 - GI/Abdominal Exam GI & Abdominal Exam: Diminished Bowel Sounds, Soft. absent: Tenderness - Rectal Exam Rectal Exam: Deferred - Exam Exam: NORMAL INSPECTION - Extremities Exam Extremities exam: Negative for: pedal edema Additional comments: right BKA - Back Exam Back exam: absent: CVA tenderness (L), CVA tenderness (R) - Neurological Exam Neurological exam: Alert, CN II-XII Intact, Oriented x3, Reflexes Normal - Psychiatric Exam Psychiatric exam: Normal Mood - Skin Skin Exam: Dry, Intact Results - Vital Signs Recent Vital Signs: Last Vital Signs Temp 98.1 F 02/03/17 08:00 Pulse 65 02/03/17 08:00 Resp 20 02/03/17 08:00 BP 115/73 02/03/17 08:00 Pulse Ox 96 02/03/17 08:00 - Labs Result Diagrams: 02/01/17 13:44 02/01/17 13:44 Labs: Laboratory Results - last 24 hr 02/02/17 02/02/17 02/03/17 16:43 21:44 07:55 POC Glucose (mg/dL) 220 H 104 107 02/03/17 11:13 POC Glucose (mg/dL) 78 Assessment & Plan (1) Diabetes Status: Acute (2) Dysphagia Status: Acute (3) Anxiety disorder Status: Acute (4) HIV (human immunodeficiency virus infection) Status: Acute (5) HTN (hypertension) Status: Acute (6) End stage renal disease on dialysis Status: Chronic - Assessment and Plan (Free Text) Assessment: will check t cells observe for signs/ symptoms of dyspahagia/ odynophagia/ stridor
--- NOTE | 2017-02-03 16:06 | CP.PCM.PN ---
Subjective - Date & Time of Evaluation Date of Evaluation: 02/03/17 Time of Evaluation: 16:06 Objective - Vital Signs/Intake and Output Vital Signs (last 24 hours): Temp Pulse Resp BP Pulse Ox 98.1 F 65 20 115/73 96 02/03/17 08:00 02/03/17 08:00 02/03/17 08:00 02/03/17 08:00 02/03/17 08:00 Intake and Output: 02/03/17 02/03/17 06:59 18:59 Intake Total 450 200 Balance 450 200 - Medications Medications: Current Medications Azithromycin (Zithromax) 1,200 mg PO Q7D [facility] Last Admin: 02/01/17 22:23 Dose: 1,200 mg Brimonidine Tartrate (Alphagan 0.2% Opht) 0 ml OS Q12H [facility] Last Admin: 02/03/17 05:11 Dose: 1 drop Cinacalcet (Sensipar) 60 mg PO DAILY [facility] Last Admin: 02/03/17 09:44 Dose: 60 mg Emtricitabine/Tenofovir (Truvada 200 Mg-300 Mg) 1 tab PO DAILY [facility] Last Admin: 02/03/17 09:44 Dose: 1 tab Heparin Sodium (Porcine) (Heparin) 5,000 units SC Q8 [facility] Last Admin: 02/03/17 13:02 Dose: Not Given Heparin Sodium (Porcine) (Heparin) 6,500 units IVP MWF [facility] Stop: 02/04/17 21:01 Last Admin: 02/01/17 21:25 Dose: 6,500 units Fluconazole (Diflucan Iv 100 Mg/50 Ml Ns) 50 mls @ 100 mls/hr IVPB Q24H [facility] Last Admin: 02/02/17 17:49 Dose: 100 mls/hr Insulin Human Regular (Novolin R) 0 unit SC ACHS [facility] PRN Reason: Protocol Last Admin: 02/03/17 11:56 Dose: Not Given Lopinavir/Ritonavir (Kaletra 200-50 Mg) 2 cap PO BID [facility] Last Admin: 02/03/17 09:43 Dose: 2 cap Magnesium Citrate (Citrate Of Mag) 300 ml PO DAILY [facility] Last Admin: 02/03/17 09:43 Dose: 300 ml Metoprolol Tartrate (Lopressor) 12.5 mg PO BID [facility] Last Admin: 02/03/17 09:44 Dose: 12.5 mg Nateglinide (Starlix) 60 mg PO DAILY [facility] Last Admin: 02/03/17 09:45 Dose: 60 mg Nystatin (Nystatin Oral Susp) 5 ml PO TID [facility] Last Admin: 02/03/17 13:02 Dose: 5 ml Pantoprazole Sodium (Protonix Ec Tab) 40 mg PO DAILY [facility] Last Admin: 02/03/17 09:45 Dose: 40 mg Raltegravir (Isentress) 400 mg PO BID [facility] Last Admin: 02/03/17 09:44 Dose: 400 mg Sevelamer Carbonate (Renvela) 800 mg PO TID [facility] Last Admin: 02/03/17 13:02 Dose: 800 mg Timolol Maleate (Timoptic 0.5% [facility]) 1 drop OS BID [facility] Last Admin: 02/03/17 09:44 Dose: 1 applic Trimethoprim/Sulfamethoxazole (Bactrim Ds Tab) 1 tab PO [facility] Vancomycin/Sodium Chloride (Vancocin) 1 gm IVPB [facility] - Labs Labs: PT 10.7 SECONDS (9.7-12.2) 02/01/17 13:44 INR 0.9 02/01/17 13:44 APTT 33 SECONDS (21-34) 02/01/17 13:44
[2017-02-03] MEDS: Fluconazole IV 100mg/50 ml NS 50 ML IVPB SCH (18:09)
--- NOTE | 2017-02-03 20:54 | CP.PCM.PN ---
Subjective - Date & Time of Evaluation Date of Evaluation: 02/03/17 Time of Evaluation: 08:40 - Subjective Subjective: clinically same Objective - Vital Signs/Intake and Output Vital Signs (last 24 hours): Temp Pulse Resp BP Pulse Ox 98.1 F 60 20 121/74 98 02/03/17 16:00 02/03/17 16:00 02/03/17 16:00 02/03/17 16:00 02/03/17 16:00 Intake and Output: 02/03/17 02/04/17 18:59 06:59 Intake Total 200 Balance 200 - Medications Medications: Current Medications Azithromycin (Zithromax) 1,200 mg PO Q7D [facility] Last Admin: 02/01/17 22:23 Dose: 1,200 mg Brimonidine Tartrate (Alphagan 0.2% Opht) 0 ml OS Q12H [facility] Last Admin: 02/03/17 18:34 Dose: Not Given Cinacalcet (Sensipar) 60 mg PO DAILY [facility] Last Admin: 02/03/17 09:44 Dose: 60 mg Emtricitabine/Tenofovir (Truvada 200 Mg-300 Mg) 1 tab PO DAILY [facility] Last Admin: 02/03/17 09:44 Dose: 1 tab Heparin Sodium (Porcine) (Heparin) 5,000 units SC Q8 [facility] Last Admin: 02/03/17 13:02 Dose: Not Given Heparin Sodium (Porcine) (Heparin) 6,500 units IVP MWF [facility] Stop: 02/04/17 21:01 Last Admin: 02/01/17 21:25 Dose: 6,500 units Fluconazole (Diflucan Iv 100 Mg/50 Ml Ns) 50 mls @ 100 mls/hr IVPB Q24H [facility] Last Admin: 02/03/17 18:09 Dose: 100 mls/hr Insulin Human Regular (Novolin R) 0 unit SC ACHS [facility] PRN Reason: Protocol Last Admin: 02/03/17 18:10 Dose: Not Given Lopinavir/Ritonavir (Kaletra 200-50 Mg) 2 cap PO BID [facility] Last Admin: 02/03/17 18:10 Dose: 2 cap Magnesium Citrate (Citrate Of Mag) 300 ml PO DAILY [facility] Last Admin: 02/03/17 09:43 Dose: 300 ml Metoprolol Tartrate (Lopressor) 12.5 mg PO BID [facility] Last Admin: 02/03/17 18:10 Dose: 12.5 mg Nateglinide (Starlix) 60 mg PO DAILY [facility] Last Admin: 02/03/17 09:45 Dose: 60 mg Nystatin (Nystatin Oral Susp) 5 ml PO TID [facility] Last Admin: 02/03/17 18:11 Dose: 5 ml Pantoprazole Sodium (Protonix Ec Tab) 40 mg PO DAILY [facility] Last Admin: 02/03/17 09:45 Dose: 40 mg Raltegravir (Isentress) 400 mg PO BID [facility] Last Admin: 02/03/17 18:10 Dose: 400 mg Sevelamer Carbonate (Renvela) 800 mg PO TID [facility] Last Admin: 02/03/17 18:11 Dose: 800 mg Timolol Maleate (Timoptic 0.5% [facility]) 1 drop OS BID [facility] Last Admin: 02/03/17 18:08 Dose: 1 applic Trimethoprim/Sulfamethoxazole (Bactrim Ds Tab) 1 tab PO [facility] Vancomycin/Sodium Chloride (Vancocin) 1 gm IVPB [facility] - Labs Labs: PT 10.7 SECONDS (9.7-12.2) 02/01/17 13:44 INR 0.9 02/01/17 13:44 APTT 33 SECONDS (21-34) 02/01/17 13:44 - Constitutional Appears: Well - Head Exam Head Exam: ATRAUMATIC, NORMAL INSPECTION, NORMOCEPHALIC - Eye Exam Eye Exam: EOMI, Normal appearance, PERRL Pupil Exam: NORMAL ACCOMODATION, PERRL - ENT Exam ENT Exam: Mucous Membranes Moist, Normal Exam - Neck Exam Neck Exam: Full ROM, Normal Inspection. absent: Lymphadenopathy - Respiratory Exam Respiratory Exam: Decreased Breath Sounds - Cardiovascular Exam Cardiovascular Exam: REGULAR RHYTHM, +S1, +S2 - GI/Abdominal Exam GI & Abdominal Exam: Soft, Diminished Bowel Sounds - Rectal Exam Rectal Exam: Deferred
[2017-02-04] MEDS: Brimonidine 0.2% Opth Sol (5ml) OS SCH ×2 (05:32→18:59)
[2017-02-04] MEDS: (Novolin R) Insulin Human Regular 100 units/ml vial SC SCH ×3 (08:05→19:09)
[2017-02-04] MEDS ORDERED: NS IVPB SCH (09:00)
[2017-02-04] MEDS ORDERED: Tmp-Smz 800 mg-160 mg DS Tab PO SCH (09:00)
[2017-02-04] MEDS ORDERED: VANCOMYCIN IVPB SCH (09:00)
[2017-02-04] MEDS: Magnesium Citrate Oral SOL (300 ml) PO SCH (09:15)
[2017-02-04] MEDS: Emtricitabine-Tenofovir 200 mg-300 mg Tab PO SCH (09:16)
[2017-02-04] MEDS: Pantoprazole 40 mg EC Tab PO SCH (09:16)
[2017-02-04] MEDS: Lopinavir/Ritonavir Tab PO SCH ×2 (09:16→19:09)
[2017-02-04] MEDS: Nystatin 100,000 Units/ml Oral Susp 5 ml UD PO SCH ×3 (09:16→19:00)
[2017-02-04 09:23] LABS: BASO % 1.4 % (0.0-2.0); EOS # 0.1 K/uL (0.0-0.7); EOS % 2.4 % (0.0-4.0); HEMOGLOBIN 11.1 g/dL (11.0-16.0); LYMPH # 1.1 K/uL (1.0-4.3); LYMPH % 33.5 % (20.0-40.0); MEAN CELL VOLUME 91.6 fL (81.0-99.0); MEAN CORPUSCULAR HGB CONC 31.7 g/dL (33.0-37.0); MEAN PLATELET VOLUME 9.1 fL (7.2-11.7); MONO # 0.3 K/uL (0.0-0.8); MONO % 9.6 % (0.0-10.0); NEUT # 1.8 K/uL (1.8-7.0); NEUT % 53.1 % (50.0-75.0); NRBC % 0.1 % (0.0-2.0); RBC 3.83 Mil/uL (3.80-5.20); RED CELL DISTRIBUTION WIDTH 18.9 % (11.5-14.5); WHITE BLOOD COUNT 3.3 K/uL (4.8-10.8)
[2017-02-04 09:50] LABS: ALBUMIN 3.5 g/dL (3.5-5.0)
[2017-02-04 09:54] LABS: CALCIUM 7.3 mg/dl (8.6-10.4)
[2017-02-04 10:03] LABS: ALB/GLOB RATIO 0.7 (1.0-2.1)
[2017-02-04 10:21] LABS: HEPATITIS B SURFACE AG NEGATIVE (NEGATIVE)
[2017-02-04 10:26] LABS: HEPATITIS B CORE AB NEGATIVE (NEGATIVE)
[2017-02-04 10:38] LABS: HEPATITIS C ANTIBODY NEGATIVE (NEGATIVE)
--- NOTE | 2017-02-04 10:51 | CARD ---
APPROVED REPORT EKG Measurement Heart [id number] CT 180P41 [id number] <Conclusion> Normal sinus rhythm Septal infarct, age undetermined Abnormal ECG
[2017-02-04 11:06] LABS: HEPATITIS A IGM NEGATIVE (NEGATIVE)
[2017-02-04 12:44] VITALS: RESP 20
--- NOTE | 2017-02-04 14:12 | CP.PCM.PN ---
Subjective - Date & Time of Evaluation Date of Evaluation: 02/04/17 Time of Evaluation: 08:40 - Subjective Subjective: clinically same Objective - Vital Signs/Intake and Output Vital Signs (last 24 hours): Temp Pulse Resp BP Pulse Ox 97.7 F 59 L 20 100/34 L 93 L 02/04/17 12:05 02/04/17 12:05 02/04/17 12:05 02/04/17 12:05 02/04/17 12:05 Intake and Output: 02/04/17 02/04/17 06:59 18:59 Intake Total 550 Balance 550 - Medications Medications: Current Medications Azithromycin (Zithromax) 1,200 mg PO Q7D [facility] Last Admin: 02/01/17 22:23 Dose: 1,200 mg Brimonidine Tartrate (Alphagan 0.2% Opht) 0 ml OS Q12H [facility] Last Admin: 02/04/17 05:32 Dose: 1 drop Cinacalcet (Sensipar) 60 mg PO DAILY [facility] Last Admin: 02/04/17 09:16 Dose: Not Given Emtricitabine/Tenofovir (Truvada 200 Mg-300 Mg) 1 tab PO DAILY [facility] Last Admin: 02/04/17 09:16 Dose: Not Given Heparin Sodium (Porcine) (Heparin) 5,000 units SC Q8 [facility] Last Admin: 02/04/17 12:59 Dose: Not Given Heparin Sodium (Porcine) (Heparin) 6,500 units IVP MWF [facility] Stop: 02/04/17 21:01 Last Admin: 02/04/17 10:39 Dose: 6,500 units Fluconazole (Diflucan Iv 100 Mg/50 Ml Ns) 50 mls @ 100 mls/hr IVPB Q24H [facility] Last Admin: 02/03/17 18:09 Dose: 100 mls/hr Insulin Human Regular (Novolin R) 0 unit SC ACHS [facility] PRN Reason: Protocol Last Admin: 02/04/17 11:48 Dose: Not Given Lopinavir/Ritonavir (Kaletra 200-50 Mg) 2 cap PO BID [facility] Last Admin: 02/04/17 09:16 Dose: Not Given Magnesium Citrate (Citrate Of Mag) 300 ml PO DAILY [facility] Last Admin: 02/04/17 09:15 Dose: Not Given Metoprolol Tartrate (Lopressor) 12.5 mg PO BID [facility] Last Admin: 02/04/17 09:16 Dose: Not Given Nateglinide (Starlix) 60 mg PO DAILY [facility] Last Admin: 02/04/17 09:16 Dose: Not Given Nystatin (Nystatin Oral Susp) 5 ml PO TID [facility] Last Admin: 02/04/17 12:59 Dose: Not Given Pantoprazole Sodium (Protonix Ec Tab) 40 mg PO DAILY [facility] Last Admin: 02/04/17 09:16 Dose: Not Given Raltegravir (Isentress) 400 mg PO BID [facility] Last Admin: 02/04/17 09:16 Dose: Not Given Sevelamer Carbonate (Renvela) 800 mg PO TID [facility] Last Admin: 02/04/17 13:00 Dose: Not Given Timolol Maleate (Timoptic 0.5% [facility]) 1 drop OS BID [facility] Last Admin: 02/04/17 09:16 Dose: Not Given Trimethoprim/Sulfamethoxazole (Bactrim Ds Tab) 1 tab PO [facility] Last Admin: 02/04/17 09:00 Dose: Not Given Vancomycin/Sodium Chloride (Vancocin) 1 gm IVPB [facility] Last Admin: 02/04/17 08:00 Dose: Not Given - Labs Labs: 02/04/17 09:19 02/04/17 09:19 PT 10.7 SECONDS (9.7-12.2) 02/01/17 13:44 INR 0.9 02/01/17 13:44 APTT 33 SECONDS (21-34) 02/01/17 13:44 - Constitutional Appears: Well - Head Exam Head Exam: ATRAUMATIC, NORMAL INSPECTION, NORMOCEPHALIC - Eye Exam Eye Exam: EOMI, Normal appearance, PERRL Pupil Exam: NORMAL ACCOMODATION, PERRL - ENT Exam ENT Exam: Mucous Membranes Moist, Normal Exam - Neck Exam Neck Exam: Full ROM, Normal Inspection. absent: Lymphadenopathy - Respiratory Exam Respiratory Exam: Decreased Breath Sounds - Cardiovascular Exam Cardiovascular Exam: REGULAR RHYTHM, +S1, +S2 - GI/Abdominal Exam GI & Abdominal Exam: Soft, Diminished Bowel Sounds - Rectal Exam Rectal Exam: Deferred
--- NOTE | 2017-02-04 15:18 | CP.PCM.PN ---
Subjective - Date & Time of Evaluation Date of Evaluation: 02/04/17 Objective - Vital Signs/Intake and Output Vital Signs (last 24 hours): Temp Pulse Resp BP Pulse Ox 97.7 F 59 L 20 100/34 L 93 L 02/04/17 12:05 02/04/17 12:05 02/04/17 12:05 02/04/17 12:05 02/04/17 12:05 Intake and Output: 02/04/17 02/04/17 06:59 18:59 Intake Total 550 250 Balance 550 250 - Medications Medications: Current Medications Azithromycin (Zithromax) 1,200 mg PO Q7D [facility] Last Admin: 02/01/17 22:23 Dose: 1,200 mg Brimonidine Tartrate (Alphagan 0.2% Opht) 0 ml OS Q12H [facility] Last Admin: 02/04/17 05:32 Dose: 1 drop Cinacalcet (Sensipar) 60 mg PO DAILY [facility] Last Admin: 02/04/17 09:16 Dose: Not Given Emtricitabine/Tenofovir (Truvada 200 Mg-300 Mg) 1 tab PO DAILY [facility] Last Admin: 02/04/17 09:16 Dose: Not Given Heparin Sodium (Porcine) (Heparin) 5,000 units SC Q8 [facility] Last Admin: 02/04/17 12:59 Dose: Not Given Heparin Sodium (Porcine) (Heparin) 6,500 units IVP MWF [facility] Stop: 02/04/17 21:01 Last Admin: 02/04/17 10:39 Dose: 6,500 units Fluconazole (Diflucan Iv 100 Mg/50 Ml Ns) 50 mls @ 100 mls/hr IVPB Q24H [facility] Last Admin: 02/03/17 18:09 Dose: 100 mls/hr Insulin Human Regular (Novolin R) 0 unit SC ACHS [facility] PRN Reason: Protocol Last Admin: 02/04/17 11:48 Dose: Not Given Lopinavir/Ritonavir (Kaletra 200-50 Mg) 2 cap PO BID [facility] Last Admin: 02/04/17 09:16 Dose: Not Given Magnesium Citrate (Citrate Of Mag) 300 ml PO DAILY [facility] Last Admin: 02/04/17 09:15 Dose: Not Given Metoprolol Tartrate (Lopressor) 12.5 mg PO BID [facility] Last Admin: 07/10/17 09:16 Dose: Not Given Nateglinide (Starlix) 60 mg PO DAILY [facility] Last Admin: 02/04/17 09:16 Dose: Not Given Nystatin (Nystatin Oral Susp) 5 ml PO TID [facility] Last Admin: 02/04/17 12:59 Dose: Not Given Pantoprazole Sodium (Protonix Ec Tab) 40 mg PO DAILY [facility] Last Admin: 02/04/17 09:16 Dose: Not Given Raltegravir (Isentress) 400 mg PO BID [facility] Last Admin: 02/04/17 09:16 Dose: Not Given Sevelamer Carbonate (Renvela) 800 mg PO TID [facility] Last Admin: 02/04/17 13:00 Dose: Not Given Timolol Maleate (Timoptic 0.5% [facility]) 1 drop OS BID [facility] Last Admin: 02/04/17 09:16 Dose: Not Given Trimethoprim/Sulfamethoxazole (Bactrim Ds Tab) 1 tab PO [facility] [place] Last Admin: 02/04/17 09:00 Dose: Not Given Vancomycin/Sodium Chloride (Vancocin) 1 gm IVPB [facility] [place] Last Admin: 02/04/17 08:00 Dose: Not Given - Labs Labs: 02/04/17 09:19 02/04/17 09:19 PT 10.7 SECONDS (9.7-12.2) 02/01/17 13:44 INR 0.9 02/01/17 13:44 APTT 33 SECONDS (21-34) 02/01/17 13:44
--- NOTE | 2017-02-04 15:59 | CP.PCM.PN ---
Subjective - Date & Time of Evaluation Date of Evaluation: 02/04/17 Time of Evaluation: 15:52 - Subjective Subjective: 57 y/o female seen and examined today by Dr Renan Arias, PMHX: Anxiety, CHF, Dementia, Diabetes, HIV, HTN, Hyperthyroidism, Hypothyroidism, End Stage Renal Disease, Chronic Kidney Disease. Pt admitted for foreign body sensation in her chest since eating a hotdog 2 days ago. Pt has been able to tolerate liquids and solids, Denies SOB, vomiting, diarrhea or any other complaints. Patient awake, alert, resp easy and unlabored, NAD, no dtsphagia, no stridor or odynophagia. Pt cleared for discharge as per Dr Arias, Dr Lopez, Dr Narvaez, continue meds, HD, vancomycin for 3 more dose as per Dr. Lopez. Objective - Vital Signs/Intake and Output Vital Signs (last 24 hours): Temp Pulse Resp BP Pulse Ox 97.7 F 59 L 20 100/34 L 93 L 02/04/17 12:05 02/04/17 12:05 02/04/17 12:05 02/04/17 12:05 02/04/17 12:05 Intake and Output: 02/04/17 02/04/17 06:59 18:59 Intake Total 550 250 Balance 550 250 - Medications Medications: Current Medications Azithromycin (Zithromax) 1,200 mg PO Q7D [facility] Last Admin: 02/01/17 22:23 Dose: 1,200 mg Brimonidine Tartrate (Alphagan 0.2% Opht) 0 ml OS Q12H [facility] Last Admin: 02/04/17 05:32 Dose: 1 drop Cinacalcet (Sensipar) 60 mg PO DAILY [facility] Last Admin: 02/04/17 09:16 Dose: Not Given Emtricitabine/Tenofovir (Truvada 200 Mg-300 Mg) 1 tab PO DAILY [facility] Last Admin: 02/04/17 09:16 Dose: Not Given Heparin Sodium (Porcine) (Heparin) 5,000 units SC Q8 [facility] Last Admin: 02/04/17 12:59 Dose: Not Given Heparin Sodium (Porcine) (Heparin) 6,500 units IVP MWF [facility] Stop: 02/04/17 21:01 Last Admin: 02/04/17 10:39 Dose: 6,500 units Fluconazole (Diflucan Iv 100 Mg/50 Ml Ns) 50 mls @ 100 mls/hr IVPB Q24H [facility] Last Admin: 02/03/17 18:09 Dose: 100 mls/hr Insulin Human Regular (Novolin R) 0 unit SC ACHS [facility] PRN Reason: Protocol Last Admin: 02/04/17 11:48 Dose: Not Given Lopinavir/Ritonavir (Kaletra 200-50 Mg) 2 cap PO BID [facility] Last Admin: 02/04/17 09:16 Dose: Not Given Magnesium Citrate (Citrate Of Mag) 300 ml PO DAILY [facility] Last Admin: 02/04/17 09:15 Dose: Not Given Metoprolol Tartrate (Lopressor) 12.5 mg PO BID [facility] Last Admin: 02/04/17 09:16 Dose: Not Given Nateglinide (Starlix) 60 mg PO DAILY [facility] Last Admin: 02/04/17 09:16 Dose: Not Given Nystatin (Nystatin Oral Susp) 5 ml PO TID [facility] Last Admin: 02/04/17 12:59 Dose: Not Given Pantoprazole Sodium (Protonix Ec Tab) 40 mg PO DAILY [facility] Last Admin: 02/04/17 09:16 Dose: Not Given Raltegravir (Isentress) 400 mg PO BID [facility] Last Admin: 02/04/17 09:16 Dose: Not Given Sevelamer Carbonate (Renvela) 800 mg PO TID [facility] Last Admin: 02/04/17 13:00 Dose: Not Given Timolol Maleate (Timoptic 0.5% [facility]) 1 drop OS BID [facility] Last Admin: 02/04/17 09:16 Dose: Not Given Trimethoprim/Sulfamethoxazole (Bactrim Ds Tab) 1 tab PO F [facility] Last Admin: 02/04/17 09:00 Dose: Not Given Vancomycin/Sodium Chloride (Vancocin) 1 gm IVPB F [facility] Last Admin: 02/04/17 08:00 Dose: Not Given - Labs Labs: 02/04/17 09:19 02/04/17 09:19 PT 10.7 SECONDS (9.7-12.2) 02/01/17 13:44 INR 0.9 02/01/17 13:44 APTT 33 SECONDS (21-34) 02/01/17 13:44
[2017-02-04 16:24] VITALS: BP 121/76; PULSE 68; TEMP 97.5; O2SAT 97
[2017-02-04] MEDS ORDERED: Dextrose 50% SYRINGE Inj (50 ml) IV STA (17:41)
[2017-02-04] MEDS: Fluconazole IV 100mg/50 ml NS 50 ML IVPB SCH (19:00)
--- NOTE | 2017-02-04 19:35 | CP.PCM.PN ---
Subjective - Date & Time of Evaluation Date of Evaluation: 02/04/17 Time of Evaluation: 15:00 - Subjective Subjective: SEEN ON RENAL F/U SEEN ON HD FEELS IMPROVED W/UP IN PROGRESS ALL PREVIOUS EMR REVIEWED .. LABS REVIEWED Objective - Vital Signs/Intake and Output Vital Signs (last 24 hours): Temp Pulse Resp BP Pulse Ox 97.5 F L 68 20 121/76 97 02/04/17 16:00 02/04/17 16:00 02/04/17 16:00 02/04/17 16:00 02/04/17 16:00 Intake and Output: 02/04/17 02/05/17 18:59 06:59 Intake Total 250 Balance 250 - Medications Medications: Current Medications Azithromycin (Zithromax) 1,200 mg PO Q7D [facility] Last Admin: 02/01/17 22:23 Dose: 1,200 mg Brimonidine Tartrate (Alphagan 0.2% Opht) 0 ml OS Q12H [facility] Last Admin: 02/04/17 18:59 Dose: 1 drop Cinacalcet (Sensipar) 60 mg PO DAILY [facility] Last Admin: 02/04/17 09:16 Dose: Not Given Emtricitabine/Tenofovir (Truvada 200 Mg-300 Mg) 1 tab PO DAILY [facility] Last Admin: 02/04/17 09:16 Dose: Not Given Heparin Sodium (Porcine) (Heparin) 5,000 units SC Q8 [facility] Last Admin: 02/04/17 12:59 Dose: Not Given Heparin Sodium (Porcine) (Heparin) 6,500 units IVP MWF [facility] Stop: 02/04/17 21:01 Last Admin: 02/04/17 10:39 Dose: 6,500 units Fluconazole (Diflucan Iv 100 Mg/50 Ml Ns) 50 mls @ 100 mls/hr IVPB Q24H [facility] Last Admin: 02/04/17 19:00 Dose: 100 mls/hr Insulin Human Regular (Novolin R) 0 unit SC ACHS [facility] PRN Reason: Protocol Last Admin: 02/04/17 19:09 Dose: Not Given Lopinavir/Ritonavir (Kaletra 200-50 Mg) 2 cap PO BID [facility] Last Admin: 02/04/17 19:09 Dose: 2 cap Magnesium Citrate (Citrate Of Mag) 300 ml PO DAILY [facility] Last Admin: 02/04/17 09:15 Dose: Not Given Metoprolol Tartrate (Lopressor) 12.5 mg PO BID [facility] Last Admin: 02/04/17 18:59 Dose: 12.5 mg Nateglinide (Starlix) 60 mg PO DAILY [facility] Last Admin: 02/04/17 09:16 Dose: Not Given Nystatin (Nystatin Oral Susp) 5 ml PO TID [facility] Last Admin: 02/04/17 19:00 Dose: 5 ml Pantoprazole Sodium (Protonix Ec Tab) 40 mg PO DAILY [facility] Last Admin: 02/04/17 09:16 Dose: Not Given Raltegravir (Isentress) 400 mg PO BID [facility] Last Admin: 02/04/17 18:59 Dose: 400 mg Sevelamer Carbonate (Renvela) 800 mg PO TID [facility] Last Admin: 02/04/17 18:59 Dose: 800 mg Timolol Maleate (Timoptic 0.5% [facility]) 1 drop OS BID [facility] Last Admin: 02/04/17 19:10 Dose: 1 applic Trimethoprim/Sulfamethoxazole (Bactrim Ds Tab) 1 tab PO [facility] [place] Last Admin: 02/04/17 09:00 Dose: Not Given Vancomycin/Sodium Chloride (Vancocin) 1 gm IVPB [facility] [place] Last Admin: 02/04/17 08:00 Dose: Not Given - Labs Labs: 02/04/17 09:19 02/04/17 09:19 PT 10.7 SECONDS (9.7-12.2) 02/01/17 13:44 INR 0.9 02/01/17 13:44 APTT 33 SECONDS (21-34) 02/01/17 13:44 Assessment and Plan - Assessment and Plan (Free Text) Assessment: ESRD ON HD M W F .. TO BE C/O ANEMIA OF CKD .. HGB STABLE MULTIPLE CO MORBIDITIES P : C/O CURRENT CARE C/O PRESENT MANAGEMENT C/O CURRENT MEDS
[2017-02-06 08:38] LABS: % CD4 (T HELPER CELL) 16 Percent (30-61); % CD8 (SUPPRESSOR T CELL) 49 Percent (12-42); ABSOLUTE CD4 CELLS 142 Cells/mcL (490-1740); ABSOLUTE CD8 CELLS 425 Cells/mcL (180-1170); ABSOLUTE LYMPHOCYTES 874 Cells/mcL (850-3900); HELPER/SUPPRESSOR RATIO 0.33 Ratio (0.86-5.00)
== END 2017-02-04 20:57 | disposition home or self-care (01) | DRG 391 ==
LOC: C.ER 12:24 → C.9E 13:59 → C.3T 16:37 → OBSVTOIN 02-03 18:00
PROVIDERS: ADMIT Internal Medicine Nephrology; ATTEND Internal Medicine Nephrology
PROC: 5A1D00Z (ICD-10-PCS; principal; 2017-02-03)
DX: K30 Functional dyspepsia (principal); N18.6 End stage renal disease; I13.2 Hypertensive heart and chronic kidney disease with heart failure and with stage 5 chronic kidney disease, or end stage renal disease; B20 Human immunodeficiency virus [HIV] disease; I50.22 Chronic systolic (congestive) heart failure; E11.22 Type 2 diabetes mellitus with diabetic chronic kidney disease; D63.1 Anemia in chronic kidney disease; E03.9 Hypothyroidism, unspecified; E05.90 Thyrotoxicosis, unspecified without thyrotoxic crisis or storm; F03.90 Unspecified dementia, unspecified severity, without behavioral disturbance, psychotic disturbance, mood disturbance, and anxiety; K21.9 Gastro-esophageal reflux disease without esophagitis; F41.9 Anxiety disorder, unspecified; Z89.511 Acquired absence of right leg below knee; Z79.899 Other long term (current) drug therapy; Z99.2 Dependence on renal dialysis; Z87.891 Personal history of nicotine dependence

== ENCOUNTER 2017-04-30 13:39 | Emergency (ER) | payer MEDICARE, OTHER ==
[2017-04-30 13:39] VITALS: BMI 25.0
--- NOTE | 2017-04-30 14:49 | C.PDOC ---
History Of Present Illness pt is a 57 y/o female with known hx CRK on 3 times weekly hemodialysis.Now presents with c/o L heel ulcer. has seen her medical health researcher in past or same but has not called for an appt. Pt sees Dr smith. Pt also is IDDM,known HIV pos Time Seen by Provider: 04/30/17 14:48 Chief Complaint (Nursing): Lower Extremity Problem/Injury History Per: Patient History/Exam Limitations: no limitations Onset/Duration Of Symptoms: Persistent (2 weeks ) Current Symptoms Are (Timing): Still Present Severity: Mild Recent travel outside of the [place]: No - Hip Description Of Injury: Other (chronic R heel ulcer) Past Medical History Reviewed: Historical Data, Nursing Documentation, Vital Signs Vital Signs: Last Vital Signs Temp 98.2 F 04/30/17 18:35 Pulse 68 04/30/17 18:35 Resp 20 04/30/17 14:00 BP 176/92 H 04/30/17 18:35 Pulse Ox 97 04/30/17 20:00 - Medical History PMH: Anxiety, CHF, Dementia, Diabetes, HIV, HTN, Hyperthyroidism, Hypothyroidism , End Stage Renal Disease, Chronic Kidney Disease Denies: Kidney Stones Surgical History: No Surg Hx - [facility] Procedures CENTRAL VENOUS CATHETER PLACEMENT WITH GUIDANCE (09/12/13) FLUOROSCOPY OF RIGHT HEART USING LOW OSMOLAR CONTRAST (05/25/16) HEMODIALYSIS (08/26/14) IMMOBILIZATION OF RIGHT LOWER EXTREMITY USING CAST (05/25/16) IMMOBILIZATION OF RIGHT UPPER LEG USING SPLINT (05/25/16) INSERTION OF INFUSION DEV INTO INF VENA CAVA, PERC APPROACH (04/02/16) INSERTION OF INFUSION DEVICE INTO R ATRIUM, PERC APPROACH (05/25/16) PERFORMANCE OF URINARY FILTRATION, MULTIPLE (05/25/16) PERFORMANCE OF URINARY FILTRATION, SINGLE (02/03/17) REMOVAL OF INFUSION DEVICE FROM LOWER VEIN, PERC APPROACH (04/02/16) REPOSITION RIGHT LOWER FEMUR, EXTERNAL APPROACH (05/25/16) TRANSFUSE NONAUT RED BLOOD CELLS IN PERIPH VEIN, PERC (05/25/16) Family History: States: Unknown Family Hx - Social History Hx Tobacco Use: Yes (former smoker) Hx Alcohol Use: No Hx Substance Use: No - Immunization History Hx Tetanus Toxoid Vaccination: Yes Hx Influenza Vaccination: No Hx Pneumococcal Vaccination: No Review Of Systems Constitutional: Negative for: Fever, Chills Cardiovascular: Negative for: Chest Pain Respiratory: Negative for: Cough, Shortness of Breath Musculoskeletal: Positive for: Foot Pain (left heel pain ) Skin: Negative for: Rash Neurological: Negative for: Weakness, Numbness Physical Exam - Physical Exam Appears: Non-toxic, No Acute Distress Skin: Warm, Dry Head: Atraumatic, Normacephalic Eye(s): bilateral: Normal Inspection, PERRL, EOMI Ear(s): Bilateral: Normal Nose: Normal, No Discharge Oral Mucosa: Moist Throat: Normal, No Erythema, No Exudate Chest: Symmetrical, No Deformity Cardiovascular: Rhythm Regular (S1 and S2 within normal limits ), No Murmur Respiratory: No Rales, No Rhonchi, No Wheezing, Other (clear to auscultation bilaterally ) Gastrointestinal/Abdominal: Soft, No Tenderness, No Distention, No Guarding, No Rebound Extremity: No Calf Tenderness, Other (AV fistula present to left antecubital fossa. Left heel ulcer, grade two without obvious exudate or discharge, necrotic with exposure only of subQ tissue. ) Neurological/Psych: Other (awake, alert, and with cognitive impairment) ED Course And Treatment O2 Sat by Pulse Oximetry: 97 (RA) - Other Rad L heel X-Ray: Viewed By Me Interpretation: no evidence for osteo Progress Note: spoke with podiatry resident who will be down to see pt. Podiatry resident evaluated patient ay bed side and agrees patient does not need antibiotics. Heel ulcer can be managed with topical collagenase. Medical Decision Making Medical Decision Making: Impression: Diabetic foot ulcer not requiring antibiotics but instead follow up with medical health researcher Dr. Alonso. Disposition Discussed With : Tracy Alonso Doctor Will See Patient In The: Office Counseled Patient/Family Regarding: Studies Performed, Diagnosis - Disposition Referrals: Tracy Alonso DPM [Doctor Podiatric Medicine] - Disposition: HOME/ ROUTINE Disposition Time: 17:51 Condition: FAIR Prescriptions: Collagenase [Santyl] 30 applic EXT DAILY #100 tube Collagenase [Santyl] 30 applic EXT TID #100 tube Forms: [employer] (Spanish) - Scribe Statement The provider has reviewed the documentation as recorded by the Scribe Charlotte Browne All medical record entries made by the Scribe were at my direction and personally dictated by me. I have reviewed the chart and agree that the record accurately reflects my personal performance of the history, physical exam, medical decision making, and the department course for this patient. I have also personally directed, reviewed, and agree with the discharge instructions and disposition.
--- NOTE | 2017-04-30 15:44 | RAD ---
PROCEDURE: Left Foot Radiographs. HISTORY: diabetic foot ulcer COMPARISON: None. FINDINGS: BONES: Extensive osteopenia suggests osteoporosis. No displaced fractures identified throughout the left foot or suspicious lytic or blastic change. No definite periosteal reaction is identified. Soft tissue ulcer is seen at the posterior heel. No definite pattern suggests calcaneal osteomyelitis at this time. MRI is more sensitive than radiography however. A mild plantar calcaneal spurs identified. JOINTS: Diffuse osteoarthritis seen throughout the joints of the forefoot midfoot and with hammertoe deformities appreciated throughout the left foot digits diffusely. SOFT TISSUES: Vascular calcifications are seen diffusely throughout the dorsal as well as plantar foot soft tissues in incidentally anterior and posterior ankle as well. OTHER FINDINGS: None. IMPRESSION: No definite displaced fracture or pattern to suggest osteomyelitis throughout the left foot as discussed above. A heel soft tissue ulcer is suggested. MRI is more sensitive for evaluation of osteomyelitis and can be performed if clinically warranted. Diffuse degenerative disease appears [id number] severity. Vascular calcifications seen in the dorsal as well as plantar foot soft tissues diffusely.
[2017-04-30 18:36] VITALS: TEMP 98.2
[2017-04-30 19:36] VITALS: O2SAT 97
--- NOTE | 2017-04-30 19:52 | CP.PCM.CON ---
History of Present Illness - History of Present Illness History of Present Illness: 57 y/o female with PMH of IDDM, CKD with 3 times weekly hemodialysis, & HIV presents to ER concerning left foot heel ulceration. Pt says the wound is chronic and has gotten worse over the past month. Tried contacting her previous podiatrists Dr. Elder and Gavin (whom she admits she hasn't seen in a at least 1 year). They suggested the patient come to their office, however patient decided to come to ER instead. Pt reports that there is pain, graded a throbbing 4/10 at peak, localized to the left heel. She noted some bloody non- pus filled drainage a week ago which spiked her concern, this symptom has since resolved. She and her home and school visitor keep the wound clean with hydrogen peroxide and alcohol washes. She denies recent f/c/cp/sob/n/v/d. Past Patient History - Infectious Disease Hx of Infectious Diseases: None - Past Medical History & Family History Past Medical History?: Yes - Past Social History Smoking Status: Never Smoked - CARDIAC Hx Congestive Heart Failure: Yes Hx Hypertension: Yes - PULMONARY Hx Respiratory Disorders: No - NEUROLOGICAL Hx Dementia: Yes - HEENT Hx HEENT Problems: Yes Hx Glaucoma: Yes (L Eye) - RENAL Hx Chronic Kidney Disease: Yes Hx Kidney Stones: No - ENDOCRINE/METABOLIC Hx Hyperthyroidism: Yes Hx Hypothyroidism: Yes - HEMATOLOGICAL/ONCOLOGICAL Hx Human Immunodeficiency Virus (HIV): Yes - INTEGUMENTARY Hx Dermatological Problems: No - MUSCULOSKELETAL/RHEUMATOLOGICAL Hx Musculoskeletal Disorders: Yes Hx Falls: Yes Other/Comment: right bka - GASTROINTESTINAL Hx Gastrointestinal Disorders: No - GENITOURINARY/GYNECOLOGICAL Hx Genitourinary Disorders: Yes Other/Comment: oliguria, on hemodialysis MWF - PSYCHIATRIC Hx Anxiety: Yes Hx Substance Use: No - SURGICAL HISTORY Hx Surgeries: Yes Hx Amputation: Yes (RIGHT BKA) Hx Orthopedic Surgery: Yes Hx Vascular Access Device: Yes (R lower back area) - ANESTHESIA Hx Anesthesia: Yes Hx Anesthesia Reactions: No Hx Malignant Hyperthermia: No Meds Home Medications: Home Medication List Medication Instructions Recorded Confirmed Type Collagenase [Santyl] 30 applic EXT DAILY #100 tube 04/30/17 Rx Collagenase [Santyl] 30 applic EXT TID #100 tube 04/30/17 Rx Allergies/Adverse Reactions: Allergies Allergy/AdvReac Type Severity Reaction Status Date / Time No Known Allergies Allergy Verified 02/01/17 12:33 Physical Exam - Constitutional Appears: Well, Non-toxic, No Acute Distress - Extremities Exam Additional comments: Left Lower extremity focused. Right lower lag absent due to priro Below knee level amputation VASC: DP and PT pulses graded 2/4 and 1/4 respectively. Mild non-pitting edema noted at level of ankle and rearfoot. Capillary refill time <5 seconds to digits. Temperature runs warm to cold proximal to distal with localized area of calor to lateral aspect of rearfoot. DERM: Full thickness ulceration measuring 3.2 x 4 x 1.9 cm to posterior lateral aspect of heel. Ulcerative bed is 70% necrotic central core with fibro-granular ring and hyperkeratotic scaling periwound skin. No noted fluctuance, no undermining nor tunneling of margins. Ulcer probes down to level of capsule. No periwound erythema, though periwound discoloration noted. Mal-odor noted. No active drainage. No inter-digital macerations NERUO: Protective sensation grossly diminished. ORTHO: Pedal muscle strength graded 5/5 in all 4 major muscle groups. No gross deformities noted. Lower leg muscle mass mildy decreased for patient demographic , muscle tone within normal limits. Tenderness to direct palpation to ulcer bed. - Neurological Exam Neurological exam: Alert, Oriented x3 - Psychiatric Exam Psychiatric exam: Normal Affect, Normal Mood Results - Vital Signs Recent Vital Signs: Last Vital Signs Temp 98.2 F 04/30/17 18:35 Pulse 68 04/30/17 18:35 Resp 20 04/30/17 14:00 BP 176/92 H 04/30/17 18:35 Pulse Ox 97 04/30/17 19:35 Assessment & Plan - Assessment and Plan (Free Text) Assessment: 57 year odl female with left heel full thickness ulceration secondary to pressure and diabetic neuropathy. Plan: Pt evaluated and treated. Chart and vitals reviewed. Seen with attending Dr. Alonso. Left foot radiographs were evaluated, no signs of acute osteomyelitis, no soft tissue emphysema. Aseptic sharp debridement of all non-viable necrotic, hyperkeratic, and fibrotic tissue. Area of tissue removed totalled 9 cm^2 Wound culture of left foot ulcer taken. Prescribed Collagenase for enzymatic outpatient debridement of wound base. Detailed to patient to apply directly to ulcer bed with saline soaked gauze and wrap with dry sterile dressing. . cleanse ulcer site with saline, dressed with betadine soaked 4x4 and DSD. Ordered for wound care nurse visitations. Pt to followup in office with Dr. Alonso on outpatient basis within 1 week. - Date & Time Date: 04/30/17 Time: 16:30
[2017-04-30 20:44] VITALS: BP 155/85; PULSE 84; RESP 16
== END 2017-04-30 20:42 | disposition home or self-care (01) ==
LOC: C.ER 13:39
DX: L89.629 Pressure ulcer of left heel, unspecified stage (principal); E11.40 Type 2 diabetes mellitus with diabetic neuropathy, unspecified; Z79.4 Long term (current) use of insulin

== ENCOUNTER 2017-05-28 10:07 | Inpatient (IN) | payer MEDICARE, OTHER ==
[2017-05-28 10:07] VITALS: BMI 25.0
--- NOTE | 2017-05-28 10:58 | C.PDOC ---
History Of Present Illness 57 year old female with a history of DM and End Stage Kidney Failure, presents to the ED for evaluation of painful left heel ulcer. Patient reports increased odor with drainage since this morning. Patient was referred to the ED for evaluation by histologic technician, Dr. Keyonna Alonso. Patient received dialysis yesterday and ulcer is regularly cleaned and re-dressed. She denies fever, trauma, or other complaints at this time. Time Seen by Provider: 05/28/17 10:31 Chief Complaint (Nursing): Lower Extremity Problem/Injury History Per: Patient, Family History/Exam Limitations: no limitations Onset/Duration Of Symptoms: Hrs Current Symptoms Are (Timing): Still Present Recent travel outside of the [place]: No Additional History Per: Prior Records Past Medical History Reviewed: Historical Data, Nursing Documentation, Vital Signs Vital Signs: Last Vital Signs Temp 99.2 F 05/28/17 13:30 Pulse 80 05/28/17 13:30 Resp 20 05/28/17 13:30 BP 148/83 05/28/17 13:30 Pulse Ox 100 05/28/17 14:24 - Medical History PMH: Anxiety, CHF, Dementia, Diabetes, HIV, HTN, Hyperthyroidism, Hypothyroidism , End Stage Renal Disease, Chronic Kidney Disease - [facility] Procedures CENTRAL VENOUS CATHETER PLACEMENT WITH GUIDANCE (09/12/13) FLUOROSCOPY OF RIGHT HEART USING LOW OSMOLAR CONTRAST (05/25/16) HEMODIALYSIS (08/26/14) IMMOBILIZATION OF RIGHT LOWER EXTREMITY USING CAST (05/25/16) IMMOBILIZATION OF RIGHT UPPER LEG USING SPLINT (05/25/16) INSERTION OF INFUSION DEV INTO INF VENA CAVA, PERC APPROACH (04/02/16) INSERTION OF INFUSION DEVICE INTO R ATRIUM, PERC APPROACH (05/25/16) PERFORMANCE OF URINARY FILTRATION, MULTIPLE (05/25/16) PERFORMANCE OF URINARY FILTRATION, SINGLE (02/03/17) REMOVAL OF INFUSION DEVICE FROM LOWER VEIN, PERC APPROACH (04/02/16) REPOSITION RIGHT LOWER FEMUR, EXTERNAL APPROACH (05/25/16) TRANSFUSE NONAUT RED BLOOD CELLS IN PERIPH VEIN, PERC (05/25/16) Family History: States: Unknown Family Hx - Social History Hx Tobacco Use: Yes (former smoker) Hx Alcohol Use: No Hx Substance Use: No - Immunization History Hx Tetanus Toxoid Vaccination: Yes Hx Influenza Vaccination: Yes Hx Pneumococcal Vaccination: No Review Of Systems Constitutional: Negative for: Fever, Chills Cardiovascular: Negative for: Chest Pain, Palpitations Respiratory: Negative for: Cough, Shortness of Breath Gastrointestinal: Negative for: Nausea, Vomiting Skin: Positive for: Other (left heel ulcer ) Physical Exam - Physical Exam Appears: Non-toxic, No Acute Distress Skin: Warm, Dry Head: Atraumatic, Normacephalic, No Tenderness Eye(s): bilateral: Normal Inspection, PERRL, EOMI Oral Mucosa: Moist Neck: Supple Chest: Symmetrical, No Deformity Cardiovascular: Rhythm Regular, No Murmur Respiratory: No Rales, No Rhonchi, No Wheezing, Other (clear to auscultation bilaterally ) Gastrointestinal/Abdominal: Soft, No Tenderness, No Distention, No Guarding, No Rebound Back: No CVA Tenderness, No Decreased ROM, Other (shunt present to right back ) Extremity: Normal ROM, No Calf Tenderness, Deformity (Right BKA), Other (3cm x 2cm left heel ulcer with drainage, malodor, and surrounding edema. ) Neurological/Psych: Oriented x3, Normal Speech ED Course And Treatment - Laboratory Results Result Diagrams: 05/28/17 12:12 05/28/17 12:12 Lab Interpretation: No Acute Changes O2 Sat by Pulse Oximetry: 100 (RA) Progress Note: XR of the left foot was ordered along with blood work and wound culture. Podiatry resident evaluates patient at bedside, also asked to add Bone scan of extremity. - Physician Consult Information Time Consulting Physician Contacted: 11:05 Physician Contacted: Gus Alonso Outcome Of Conversation: Dr. Alonso referred patient to the ED and agrees with plan and admission for left heel ulcer, osteo, DM diagnosis. Patient to be admitted to Dr Bonilla service, he will see as consult; also requests vascular and ID consults Disposition - Disposition Disposition: HOSPITALIZED Disposition Time: 10:40 Condition: STABLE - POA Present On Arrival: Poor Glycemic Control, Pressure Ulcer - Clinical Impression Clinical Impression: ESRD (end stage renal disease), Diabetes, Foot ulcer, left, Osteomyelitis - PA / KEY ACCOUNT DIRECTOR / Resident Statement MD/DO has reviewed & agrees with the documentation as recorded. - Scribe Statement The provider has reviewed the documentation as recorded by the Scribe Charlotte Browne All medical record entries made by the Scribe were at my direction and personally dictated by me. I have reviewed the chart and agree that the record accurately reflects my personal performance of the history, physical exam, medical decision making, and the department course for this patient. I have also personally directed, reviewed, and agree with the discharge instructions and disposition. Decision To Admit - Pt Status Changed To: Hospital Disposition Of: Inpatient - Admit Certification Admit to Inpatient:: After my assessment, the patient will require hospitalization for at least two midnights. This is because of the severity of symptoms shown, intensity of services needed, and/or the medical risk in this patient being treated as an outpatient. - InPatient: Physician Admission Certification: I certify that this patient requires 2 or more midnights of care for the following reason:: Patient to be admitted for osteomyelitis from foot ulcer. Consult podiatry, ID, Vascular - . Bed Request Type: Regular Admitting Physician: Glenny Bonilla Patient Diagnosis: ESRD (end stage renal disease), Diabetes, Foot ulcer, left, Osteomyelitis
--- NOTE | 2017-05-28 11:08 | CP.PCM.CON ---
<Vangie Delgado - Last Filed: 05/28/17 11:04> History of Present Illness - History of Present Illness History of Present Illness: 57 y/o female with pmhx of Anxiety, CHF, Dementia, Diabetes, HIV, HTN, Hyperthyroidism, Hypothyroidism, End Stage Renal Disease, Chronic Kidney Disease , seen at bedside for left posterior heel wound. Patient was sent from Dr. Alonso 's office when he noticed drainage, and foul smelling odor from the left foot. Patient states that she has mild pain in her foot. She is contracted at the knee and it is difficult for her to lift her leg. Melo has a BKA on the right lower extremity. Patient denies any other pedal complaints. She denies n/ f/v/d/c/sob. Review of Systems - Constitutional Constitutional: As Per HPI Past Patient History - Infectious Disease Hx of Infectious Diseases: None - Past Medical History & Family History Past Medical History?: Yes - Past Social History Smoking Status: Never Smoked - CARDIAC Hx Congestive Heart Failure: Yes Hx Hypertension: Yes - PULMONARY Hx Respiratory Disorders: No - NEUROLOGICAL Hx Dementia: Yes - HEENT Hx HEENT Problems: Yes Hx Glaucoma: Yes (L Eye) - RENAL Hx Chronic Kidney Disease: Yes Hx Kidney Stones: No - ENDOCRINE/METABOLIC Hx Hyperthyroidism: Yes Hx Hypothyroidism: Yes - HEMATOLOGICAL/ONCOLOGICAL Hx Human Immunodeficiency Virus (HIV): Yes - INTEGUMENTARY Hx Dermatological Problems: No - MUSCULOSKELETAL/RHEUMATOLOGICAL Hx Musculoskeletal Disorders: Yes Hx Falls: Yes Other/Comment: right bka - GASTROINTESTINAL Hx Gastrointestinal Disorders: No - GENITOURINARY/GYNECOLOGICAL Hx Genitourinary Disorders: Yes Other/Comment: oliguria, on hemodialysis MWF - PSYCHIATRIC Hx Anxiety: Yes Hx Substance Use: No - SURGICAL HISTORY Hx Surgeries: Yes Hx Amputation: Yes (RIGHT BKA) Hx Orthopedic Surgery: Yes Hx Vascular Access Device: Yes (R lower back area) - ANESTHESIA Hx Anesthesia: Yes Hx Anesthesia Reactions: No Hx Malignant Hyperthermia: No Meds Allergies/Adverse Reactions: Allergies Allergy/AdvReac Type Severity Reaction Status Date / Time No Known Allergies Allergy Verified 02/01/17 12:33 Physical Exam - Constitutional Appears: Well, Non-toxic, No Acute Distress - Extremities Exam Additional comments: 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 focused: Vasc: lightly palpable DP and PT pulses, TG wnl, CFT < 4 sec to all digits Neuro: grossly diminished derm: posterior heel ulceration measuring 3cm x 4cm on the lateral aspect, fibrous base, necrotic edges, necrotic eschar on the posteromedial aspect, severe malodor, no purulence, serous drainage noted on bandage, no underlying fluctuance, no ascending cellulitis, diffuse xerosis noted plantarly ortho: contracted lower extremity, pain on palpation of posterior heel - Neurological Exam Neurological exam: Alert, Oriented x3 Results - Vital Signs Recent Vital Signs: Last Vital Signs Temp 98.8 F 05/28/17 10:16 Pulse 78 05/28/17 10:16 Resp 18 05/28/17 10:16 BP 141/59 L 05/28/17 10:16 Pulse Ox 100 05/28/17 10:57 Assessment & Plan - Assessment and Plan (Free Text) Assessment: 57 y/o female with pmhx of Anxiety, CHF, Dementia, Diabetes, HIV, HTN, Hyperthyroidism, Hypothyroidism, End Stage Renal Disease, Chronic Kidney Disease , seen at bedside in the ED for left foot unstageable ulceration of posterior heel secondary to pressure Plan: patient evaluated and chart reviewed discussed in detail with attending Dr. Alonso labs and vitals reviewed; afebrile f/u CBC, BMP f/u x rays of foot f/u bone scan patient to be admitted for IV abx ID consult placed Vasc consult placed wound cx taken of left foot cleansed wound with sterilenormal saline, applied xeroform, DSD to left foot podiatry will continue to follow while patient remains in house <Gus Alonso - Last Filed: 05/28/17 12:39> Meds - Medications Medications: Current Medications Sodium Hypochlorite (Dakins Solution 0.25%) 0 ml TOP DAILY KATARINA Results - Vital Signs Recent Vital Signs: Last Vital Signs Temp 98.8 F 05/28/17 10:16 Pulse 78 05/28/17 10:16 Resp 18 05/28/17 10:16 BP 141/59 L 05/28/17 10:16 Pulse Ox 100 05/28/17 11:28 - Labs Result Diagrams: 05/28/17 12:12 05/28/17 12:12 Labs: Laboratory Results - last 24 hr 05/28/17 05/28/17 12:12 12:12 WBC 6.5 D RBC 3.68 L Hgb 10.3 L Hct 33.0 L MCV 89.6 D MCH 28.1 MCHC 31.3 L RDW 20.9 H Plt Count 219 MPV 8.4 Neut % (Auto) 81.6 H Lymph % (Auto) 10.6 L [place] % (Auto) 7.2 Eos % (Auto) 0.3 Baso % (Auto) 0.3 Neut # 5.3 Lymph # 0.7 L [place] # 0.5 Eos # 0.0 Baso # 0.0 Sodium 138 Potassium 3.5 L Chloride 95 L Carbon Dioxide 31 H Anion Gap 16 BUN 31 H Creatinine 5.1 H Est GFR ( Amer) 11 Est GFR (Non-Af Amer) 9 Random Glucose 67 Calcium 8.7 Total Bilirubin 0.6 AST 15 ALT 11 Alkaline Phosphatase 132 H Total Protein 9.9 H Albumin 3.9 Globulin 6.0 H Albumin/Globulin Ratio 0.7 L Attending/Attestation - Attestation I have personally seen and examined this patient.: Yes I have fully participated in the care of the patient.: Yes I have reviewed all pertinent clinical information: Yes Notes (Text): 05/28/17 12:[address] Sinclair and Dr. Lopez for further work up of non healing diabetic ulcer of left heel.
[2017-05-28 12:17] LABS: BASO % 0.3 % (0.0-2.0); EOS % 0.3 % (0.0-4.0); LYMPH # 0.7 K/uL (1.0-4.3); LYMPH % 10.6 % (20.0-40.0); MEAN CORPUSCULAR HEMOGLOBIN 28.1 pg (27.0-31.0); MEAN CORPUSCULAR HGB CONC 31.3 g/dL (33.0-37.0); MEAN PLATELET VOLUME 8.4 fL (7.2-11.7); MONO # 0.5 K/uL (0.0-0.8); MONO % 7.2 % (0.0-10.0); NRBC % 0.1 % (0.0-2.0); RED CELL DISTRIBUTION WIDTH 20.9 % (11.5-14.5)
[2017-05-28 12:20] LABS: MEAN CELL VOLUME 89.6 fL (81.0-99.0); WHITE BLOOD COUNT 6.5 K/uL (4.8-10.8)
[2017-05-28 12:28] LABS: POTASSIUM 3.5 mmol/L (3.6-5.2)
[2017-05-28 12:31] LABS: BILIRUBIN,TOTAL 0.6 mg/dL (0.2-1.3); TOTAL PROTEIN 9.9 g/dL (6.3-8.3)
[2017-05-28 12:32] LABS: ALB/GLOB RATIO 0.7 (1.0-2.1); CALCIUM 8.7 mg/dl (8.6-10.4)
--- NOTE | 2017-05-28 15:26 | RAD ---
PROCEDURE: Left Foot Radiographs. HISTORY: foot ulcer, poss osteo COMPARISON: None. FINDINGS: BONES: Generalized osteopenia. No fracture. No periosteal reaction. Inferior calcaneal spurring. Hammertoe orientations JOINTS: Normal. SOFT TISSUES: Phleboliths and atherosclerotic arterial vascular calcifications Large posterior heel ulcer. No subjacent periosteal reaction or cortical destruction here to suggest contiguous osteomyelitis OTHER FINDINGS: First metatarsal-phalangeal joint osteoarthrosis. Metatarsus adductus IMPRESSION: Large heel ulcer without radiographic evidence of osteomyelitis. Close follow-up recommended. Consider MRI of the left hindfoot .
--- NOTE | 2017-05-28 16:30 | CP.PCM.CON ---
History of Present Illness - History of Present Illness History of Present Illness: VASCULAR SURGERY CONSULT NOTE FOR DR. BRIAN 57 year old female with a past medical history of Diabetes Mellitus, End Stage Renal Disease on dialysis, and HIV presented to the ED today for evaluation of a painful left foot ulcer. Patient states that the ulcer started about 2 weeks ago. The ulcer progressively worsened and was advised by her cuff presser, Dr. Alonso, to come to the hospital this morning. Patient states the pain is intermittent and burning in nature and rates the pain 8/10. At home, patient has been taking Tylenol for pain relief. There is no radiation of the pain and patient is not experiencing any numbness or tingling. Patient normally receives dialysis on Saturday, Saturday, Saturday. Patient denies any other compliant at this time. ROS: Denies AREVALO, fever, chills, chest pain, palpitations, shortness of breath, cough, nausea, vomiting, constipation, diarrhea, numbness, tingling Positive for left heel ulcer PMHx: Anxiety, CHF, DM, HIV, HTN, ESRD, CKD PSHx: Right BKA Allergies: NKDA Social: denies alcohol or recreational drug abuse; denies smoking but has smoked in the past Family Hx: Mother - DM; Father - HTN Review of Systems - Review of Systems All systems: reviewed and no additional remarkable complaints except (As per HPI ) - Constitutional Constitutional: As Per HPI Past Patient History - Infectious Disease Hx of Infectious Diseases: None - Past Medical History & Family History Past Medical History?: Yes - Past Social History Smoking Status: Former Smoker Alcohol: None Drugs: Denies - CARDIAC Hx Congestive Heart Failure: Yes Hx Hypertension: Yes - PULMONARY Hx Respiratory Disorders: No - NEUROLOGICAL Hx Dementia: Yes - HEENT Hx HEENT Problems: Yes Hx Glaucoma: Yes (L Eye) - RENAL Hx Chronic Kidney Disease: Yes Hx Dialysis: Yes Date of Last Dialysis Treatment: 05/27/17 - ENDOCRINE/METABOLIC Hx Hyperthyroidism: Yes Hx Hypothyroidism: Yes - HEMATOLOGICAL/ONCOLOGICAL Hx Human Immunodeficiency Virus (HIV): Yes - INTEGUMENTARY Hx Dermatological Problems: No - MUSCULOSKELETAL/RHEUMATOLOGICAL Hx Musculoskeletal Disorders: Yes Hx Falls: Yes Other/Comment: right bka - GASTROINTESTINAL Hx Gastrointestinal Disorders: No - GENITOURINARY/GYNECOLOGICAL Hx Genitourinary Disorders: Yes Other/Comment: oliguria, on hemodialysis MWF - PSYCHIATRIC Hx Anxiety: Yes Hx Substance Use: No - SURGICAL HISTORY Hx Surgeries: Yes Hx Amputation: Yes (RIGHT BKA) Hx Orthopedic Surgery: Yes Hx Vascular Access Device: Yes (R lower back area for HD) - ANESTHESIA Hx Anesthesia: Yes Hx Anesthesia Reactions: No Hx Malignant Hyperthermia: No Meds Allergies/Adverse Reactions: Allergies Allergy/AdvReac Type Severity Reaction Status Date / Time No Known Allergies Allergy Verified 02/01/17 12:33 - Medications Medications: Current Medications Acetaminophen (Tylenol 325mg Tab) 650 mg PO Q6 PRN PRN Reason: Pain, Mild (1-3) Ondansetron HCl (Zofran Inj) 4 mg IVP Q4 PRN PRN Reason: Nausea/Vomiting Sodium Hypochlorite (Dakins Solution 0.25%) 0 ml TOP DAILY [facility] Physical Exam - Constitutional Appears: Non-toxic, No Acute Distress, Chronically Ill - Head Exam Head Exam: ATRAUMATIC, NORMAL INSPECTION, NORMOCEPHALIC - Eye Exam Eye Exam: EOMI, PERRL - Respiratory Exam Respiratory Exam: Wheezes (bilaterally) - Cardiovascular Exam Cardiovascular Exam: REGULAR RHYTHM, +S1, +S2 - GI/Abdominal Exam GI & Abdominal Exam: Normal Bowel Sounds, Soft. absent: Distended, Tenderness - Extremities Exam Extremities exam: Negative for: calf tenderness Additional comments: left heel ulcer 3cm x 4cm (malodorous, necrotic skin) posterior tibial and dorsalis pedis Doppler signals present +1 pitting edema left leg left foot warm to touch - Neurological Exam Neurological exam: Alert, Oriented x3 - Psychiatric Exam Psychiatric exam: Normal Affect, Normal Mood - Skin Skin Exam: Dry, Warm Results - Vital Signs Recent Vital Signs: Last Vital Signs Temp 99.2 F 05/28/17 13:30 Pulse 80 05/28/17 13:30 Resp 20 05/28/17 13:30 BP 148/83 05/28/17 13:30 Pulse Ox 100 05/28/17 14:28 - Labs Result Diagrams: 05/28/17 12:12 05/28/17 12:12 Labs: Laboratory Results - last 24 hr 05/28/17 05/28/17 12:12 12:12 WBC 6.5 D RBC 3.68 L Hgb 10.3 L Hct 33.0 L MCV 89.6 D MCH 28.1 MCHC 31.3 L RDW 20.9 H Plt Count 219 MPV 8.4 Neut % (Auto) 81.6 H Lymph % (Auto) 10.[address] [place] % (Auto) 7.2 Eos % (Auto) 0.3 Baso % (Auto) 0.3 Neut # 5.3 Lymph # 0.[address] [place] # 0.5 Eos # 0.0 Baso # 0.0 Sodium 138 Potassium 3.5 L Chloride 95 L Carbon Dioxide 31 H Anion Gap 16 BUN 31 H Creatinine 5.1 H Est GFR ( Amer) 11 Est GFR (Non-Af Amer) 9 Random Glucose 67 Calcium 8.7 Total Bilirubin 0.6 AST 15 ALT 11 Alkaline Phosphatase 132 H Total Protein 9.9 H Albumin 3.9 Globulin 6.0 H Albumin/Globulin Ratio 0.7 L Assessment & Plan - Assessment and Plan (Free Text) Assessment: 57 year old female with past medical history of DM, ESRD, HIV, HTN with a chronic non healing left heel ulcer Plan: Ordered CTA Continue dressing changes per podiatry May need debridement Repeat electrolytes PRN Iv Abx per ID Pain Management Discussed plan with Dr. Yahir Martinez PGY-3
[2017-05-28] MEDS: Tramadol 25 mg PO PRN (22:17)
--- NOTE | 2017-05-28 22:21 | CP.PCM.HP ---
History of Present Illness - History of Present Illness History of Present Illness: Chief concern: Left heel ulcer foul-smelling History of present illness: 57-year-old female with a history of end-stage renal disease on dialysis, receiving hemodialysis on Saturday. Patient went to see Dr. Alonso the machine maintenance mechanic today, after examining the patient he suggested that patient has a possibly of left foot ulcer with foul-smelling, infected. Social history adjusted the patient has to go to the emergency room for possible inpatient management. Patient is currently having increasing pain over the leg, foul-smelling discharge noted from the legs especially in the heel. Patient also having some fever like reaction, chills noted. She was on antibiotic from the beginning. Patient has a hemodialysis catheter in the inferior vena cava on the backside. Patient had old shunt in the both upper extremity. Complaining of more pain. No fever or chills at this time. No vomiting or diarrhea. Past medical history: Patient has a history of diabetes, hypertension, renal insufficiency, on dialysis, history of human immunodeficiency virus infection, on medication. Diabetic foot, peripheral vascular disease, high cholesterol and hypertension. Surgical history include right below-knee amputation. Patient also has a multiply AV shunt. Currently having hemodialysis catheter in the inferior vena cava on the backside. Allergies: No known drug allergy Personal history: Nonsmoker nonalcoholic Patient is not bleeding much. Patient is is a hemodialysis regular basis Review of system Currently having no headache, no chest pain or shortness of breath. She denied any history of NM or stroke in the past. Right below-knee limitation noted. No abdominal pain. Normal BM On examination: Patient is somewhat in pain, no distress. Chest good air entry. Regular. Patient Has a Scar Tissues over the Both Upper Extremities for Old AV Shunt. Hemodialysis Catheter in the Back Noted. Foul-Smelling Ulcer in the Left Leg and the Foot Noted. Right Below-Knee Limitation. Patient's Labs Reviewed WBC Is Normal. Mildly Elevated Neutrophil Count Noted. She Underwent Angiogram, Awaiting Results. 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 Patient came to the office and hospitalized with the left foot foul-smelling ulcer, infected. Patient is currently admitted, for IV antibiotic. Infectious disease evaluation. Podiatry evaluation. Vascular surgery consultation. Wound consultation. Pain management. Patient is currently also needing hemodialysis, will get nephrology evaluation. Baron infante. Overall prognosis is guarded. Patient is at high risk for a below-knee amputation of the left leg also. Present on Admission - Present on Admission Any Indicators Present on Admission: No History of DVT/PE: No History of Uncontrolled Diabetes: Yes Urinary Catheter: No Decubitus Ulcer Present: No Past Patient History - Infectious Disease Hx of Infectious Diseases: None - Past Medical History & Family History Past Medical History?: Yes - Past Social History Smoking Status: Former Smoker Alcohol: None Drugs: Denies - CARDIAC Hx Congestive Heart Failure: Yes Hx Hypertension: Yes - PULMONARY Hx Respiratory Disorders: No - NEUROLOGICAL Hx Dementia: Yes - HEENT Hx HEENT Problems: Yes Hx Glaucoma: Yes (L Eye) - RENAL Hx Chronic Kidney Disease: Yes Hx Dialysis: Yes Date of Last Dialysis Treatment: 05/27/17 - ENDOCRINE/METABOLIC Hx Hyperthyroidism: Yes Hx Hypothyroidism: Yes - HEMATOLOGICAL/ONCOLOGICAL Hx Human Immunodeficiency Virus (HIV): Yes - INTEGUMENTARY Hx Dermatological Problems: No - MUSCULOSKELETAL/RHEUMATOLOGICAL Hx Musculoskeletal Disorders: Yes Hx Falls: Yes Other/Comment: right bka - GASTROINTESTINAL Hx Gastrointestinal Disorders: No - GENITOURINARY/GYNECOLOGICAL Hx Genitourinary Disorders: Yes Other/Comment: oliguria, on hemodialysis MWF - PSYCHIATRIC Hx Anxiety: Yes Hx Substance Use: No - SURGICAL HISTORY Hx Surgeries: Yes Hx Amputation: Yes (RIGHT BKA) Hx Orthopedic Surgery: Yes Hx Vascular Access Device: Yes (R lower back area for HD) - ANESTHESIA Hx Anesthesia: Yes Hx Anesthesia Reactions: No Hx Malignant Hyperthermia: No Meds Allergies/Adverse Reactions: Allergies Allergy/AdvReac Type Severity Reaction Status Date / Time No Known Allergies Allergy Verified 02/01/17 12:33 Results - Vital Signs Recent Vital Signs: Last Vital Signs Temp 100.0 F H 05/28/17 15:15 Pulse 71 05/28/17 15:15 Resp 20 05/28/17 15:15 BP 129/73 05/28/17 15:15 Pulse Ox 100 05/28/17 15:15 - Labs Result Diagrams: 05/28/17 12:12 05/28/17 12:12 Labs: Laboratory Results - last 24 hr 05/28/17 05/28/17 05/28/17 12:12 12:12 17:13 WBC 6.5 D RBC 3.68 L Hgb 10.3 L Hct 33.0 L MCV 89.6 D MCH 28.1 MCHC 31.3 L RDW 20.9 H Plt Count 219 MPV 8.4 Neut % (Auto) 81.6 H Lymph % (Auto) 10.6 L [place] % (Auto) 7.2 Eos % (Auto) 0.3 Baso % (Auto) 0.3 Neut # 5.3 Lymph # 0.7 L [place] # 0.5 Eos # 0.0 Baso # 0.0 Sodium 138 Potassium 3.5 L Chloride 95 L Carbon Dioxide 31 H Anion Gap 16 BUN 31 H Creatinine 5.1 H Est GFR ( Amer) 11 Est GFR (Non-Af Amer) 9 POC Glucose (mg/dL) 77 Random Glucose 67 Calcium 8.7 Total Bilirubin 0.6 AST 15 ALT 11 Alkaline Phosphatase 132 H Total Protein 9.9 H Albumin 3.9 Globulin 6.0 H Albumin/Globulin Ratio 0.7 L 05/28/17 21:16 WBC RBC Hgb Hct MCV MCH MCHC RDW Plt Count MPV Neut % (Auto) Lymph % (Auto) [place] % (Auto) Eos % (Auto) Baso % (Auto) Neut # Lymph # [place] # Eos # Baso # Sodium Potassium Chloride Carbon Dioxide Anion Gap BUN Creatinine Est GFR ( Amer) Est GFR (Non-Af Amer) POC Glucose (mg/dL) 107 Random Glucose Calcium Total Bilirubin AST ALT Alkaline Phosphatase Total Protein Albumin Globulin Albumin/Globulin Ratio
--- NOTE | 2017-05-28 23:56 | CP.PCM.CON ---
History of Present Illness - History of Present Illness History of Present Illness: REASONS FOR CONSULT : ESRD ON HD M W ANEMIA OF CKD .. ON HD M W ALL PREVIOUS EMR REVIEWED PT WAS SEEN AND EXAMINED PT IS WELL KNOWN TO US .. ON HD W F 57 year old female with a history of DM and End Stage Kidney Failure, presents to the ED for evaluation of painful left heel ulcer. Patient reports increased odor with drainage since this morning. Patient was referred to the ED for evaluation by security escort, Dr. Keyonna Alonso. Patient received dialysis yesterday and ulcer is regularly cleaned and re-dressed. She denies fever, trauma, or other complaints at this time. Time Seen by Provider: 05/28/17 10:31 Chief Complaint (Nursing): Lower Extremity Problem/Injury History Per: Patient, Family History/Exam Limitations: no limitations Onset/Duration Of Symptoms: Hrs Current Symptoms Are (Timing): Still Present Recent travel outside of the [place]: No Additional History Per: Prior Records Past Medical History Reviewed: Historical Data, Nursing Documentation, Vital Signs Vital Signs: Last Vital Signs Temp 99.2 F 05/28/17 13:30 Pulse 80 05/28/17 13:30 Resp 20 05/28/17 13:30 BP 148/83 05/28/17 13:30 Pulse Ox 100 05/28/17 14:24 - Medical History PMH: Anxiety, CHF, Dementia, Diabetes, HIV, HTN, Hyperthyroidism, Hypothyroidism , End Stage Renal Disease, Chronic Kidney Disease Past Patient History - Infectious Disease Hx of Infectious Diseases: None - Past Medical History & Family History Past Medical History?: Yes - Past Social History Smoking Status: Former Smoker Alcohol: None Drugs: Denies - CARDIAC Hx Congestive Heart Failure: Yes Hx Hypertension: Yes - PULMONARY Hx Respiratory Disorders: No - NEUROLOGICAL Hx Dementia: Yes - HEENT Hx HEENT Problems: Yes Hx Glaucoma: Yes (L Eye) - RENAL Hx Chronic Kidney Disease: Yes Hx Dialysis: Yes Date of Last Dialysis Treatment: 05/27/17 - ENDOCRINE/METABOLIC Hx Hyperthyroidism: Yes Hx Hypothyroidism: Yes - HEMATOLOGICAL/ONCOLOGICAL Hx Human Immunodeficiency Virus (HIV): Yes - INTEGUMENTARY Hx Dermatological Problems: No - MUSCULOSKELETAL/RHEUMATOLOGICAL Hx Musculoskeletal Disorders: Yes Hx Falls: Yes Other/Comment: right bka - GASTROINTESTINAL Hx Gastrointestinal Disorders: No - GENITOURINARY/GYNECOLOGICAL Hx Genitourinary Disorders: Yes Other/Comment: oliguria, on hemodialysis MWF - PSYCHIATRIC Hx Anxiety: Yes Hx Substance Use: No - SURGICAL HISTORY Hx Surgeries: Yes Hx Amputation: Yes (RIGHT BKA) Hx Orthopedic Surgery: Yes Hx Vascular Access Device: Yes (R lower back area for HD) - ANESTHESIA Hx Anesthesia: Yes Hx Anesthesia Reactions: No Hx Malignant Hyperthermia: No Meds Allergies/Adverse Reactions: Allergies Allergy/AdvReac Type Severity Reaction Status Date / Time No Known Allergies Allergy Verified 02/01/17 12:33 - Medications Medications: Current Medications Acetaminophen (Tylenol 325mg Tab) 650 mg PO Q6 PRN PRN Reason: Pain, Mild (1-3) Last Admin: 05/28/17 17:46 Dose: 650 mg Acetaminophen (Tylenol 325mg Tab) 650 mg PO Q6 PRN PRN Reason: Fever >100.4 F Brimonidine Tartrate (Alphagan 0.2% Opht) 0 ml OU Q12 [facility] Cinacalcet (Sensipar) 60 mg PO DAILY [facility] Collagenase (Santyl) 0 gm EXT TID [facility] Emtricitabine/Tenofovir (Truvada 200 Mg-300 Mg) 1 tab PO DAILY [facility] Epoetin Alonso (Procrit) 10,000 unit IV MWF [facility] Famotidine (Pepcid) 20 mg PO DAILY [facility] Home Med (Nateglinide) 60 mg PO DAILY [facility] Vancomycin/Sodium Chloride (Vancomycin 1 Gm/Ns 200 Ml) 1 gm in 200 mls @ 133 mls/hr IVPB MWF [facility] Stop: 06/03/17 09:01 Lopinavir/Ritonavir (Kaletra 200-50 Mg) 2 cap PO BID [facility] Magnesium Citrate (Citrate Of Mag) 300 ml PO DAILY [facility] Metoprolol Tartrate (Lopressor) 12.5 mg PO BID [facility] Nystatin (Nystatin Oral Susp) 5 ml PO TID [facility] Ondansetron HCl (Zofran Inj) 4 mg IVP Q4 PRN PRN Reason: Nausea/Vomiting Pantoprazole Sodium (Protonix Ec Tab) 40 mg PO DAILY [facility] Pneumococcal Polyvalent Vaccine (Pneumovax 23 Vaccine) 0.5 ml IM .ONCE ONE Stop: 05/30/17 10:01 Raltegravir (Isentress) 400 mg PO BID [facility] Sevelamer Carbonate (Renvela) 800 mg PO TID [facility] Sodium Hypochlorite (Dakins Solution 0.25%) 0 ml TOP DAILY [facility] Timolol Maleate (Timoptic 0.5% Ophth Soln) 1 drop OS BID [facility] Tramadol HCl (Ultram) 25 mg PO TID PRN PRN Reason: Pain, severe (8-10) Last Admin: 05/28/17 22:17 Dose: 25 mg Trimethoprim/Sulfamethoxazole (Bactrim Ds Tab) 1 tab PO MWF [facility] Results - Vital Signs Recent Vital Signs: Last Vital Signs Temp 100.0 F H 05/28/17 15:15 Pulse 71 05/28/17 15:15 Resp 20 05/28/17 15:15 BP 129/73 05/28/17 15:15 Pulse Ox 100 05/28/17 15:15 - Labs Result Diagrams: 05/28/17 12:12 05/28/17 12:12 Labs: Laboratory Results - last 24 hr 05/28/17 05/28/17 05/28/17 12:12 12:12 17:13 WBC 6.5 D RBC 3.68 L Hgb 10.3 L Hct 33.0 L MCV 89.6 D MCH 28.1 MCHC 31.3 L RDW 20.9 H Plt Count 219 MPV 8.4 Neut % (Auto) 81.6 H Lymph % (Auto) 10.6 L [place] % (Auto) 7.2 Eos % (Auto) 0.3 Baso % (Auto) 0.3 Neut # 5.3 Lymph # 0.7 L [place] # 0.5 Eos # 0.0 Baso # 0.0 Sodium 138 Potassium 3.5 L Chloride 95 L Carbon Dioxide 31 H Anion Gap 16 BUN 31 H Creatinine 5.1 H Est GFR ( Amer) 11 Est GFR (Non-Af Amer) 9 POC Glucose (mg/dL) 77 Random Glucose 67 Calcium 8.7 Total Bilirubin 0.6 AST 15 ALT 11 Alkaline Phosphatase 132 H Total Protein 9.9 H Albumin 3.9 Globulin 6.0 H Albumin/Globulin Ratio 0.7 L 05/28/17 21:16 WBC RBC Hgb Hct MCV MCH MCHC RDW Plt Count MPV Neut % (Auto) Lymph % (Auto) [place] % (Auto) Eos % (Auto) Baso % (Auto) Neut # Lymph # [place] # Eos # Baso # Sodium Potassium Chloride Carbon Dioxide Anion Gap BUN Creatinine Est GFR ( Amer) Est GFR (Non-Af Amer) POC Glucose (mg/dL) 107 Random Glucose Calcium Total Bilirubin AST ALT Alkaline Phosphatase Total Protein Albumin Globulin Albumin/Globulin Ratio Assessment & Plan - Assessment and Plan (Free Text) Assessment: ESRD ON HD M W F .. WILL SCHEDULE HER FOR HD IN AM ANEMIA OF CKD .. H/H STABLE MULTIPLE CO MORBIDITIES P : HD IN AM AND C/O CURRENT CARE - Date & Time Date: 05/28/17 Time: 17:00
[2017-05-29] MEDS ORDERED: Home Med 1 UNIT (Vancomycin 1 Gm [Vancomycin 1gm In Normal Saline Addvantage] 1 GM) IVPB SCH (09:00)
--- NOTE | 2017-05-29 09:51 | CT ---
PROCEDURE: CT Angiography Abdomen, Pelvis and Lower Extremity with Contrast HISTORY: PAD, non-healing daibetic foot ulcer COMPARISON: None. TECHNIQUE: Technique: CT angiography of the abdomen, pelvis and bilateral lower extremities performed in the arterial phase of enhancement. Coronal and sagittal reformats, and well as rotating MIP images of the vessels generated at the workstation. Intravenous contrast dose: 150 milliliters Omnipaque 350 Radiation dose: Total exam DLP = 2778.23 MGy-cm. This CT exam was performed using one or more of the following dose reduction techniques: Automated exposure control, adjustment of the mA and/or kV according to patient size, and/or use of iterative reconstruction technique. FINDINGS: CT ANGIOGRAPHY: ABDOMINAL AORTA:: The abdominal aorta is unremarkable. MAJOR AORTIC BRANCHES: Celiac [place]: Unremarkable. Superior mesenteric artery: Moderate calcific plaque of the SMA and also proximal right colic branch. Inferior mesenteric artery: Unremarkable. Renal arteries: Bilateral stenotic renal arteries. Atretic kidneys. PELVIC ARTERIES: Right Common Iliac: Moderate calcific plaque at the proximal segment otherwise unremarkable. Right External Iliac: Unremarkable. Right Internal Iliac: Unremarkable. Left Common Iliac: Moderate calcific plaque in the proximal segment otherwise unremarkable. Left External Iliac: Unremarkable. Left Internal Iliac: Unremarkable. RIGHT LOWER EXTREMITY ARTERIES: Right Common Femoral: Moderate plaque of the common femoral artery with mild stenosis. Right Superficial Femoral: Severely stenotic proximally then occludes in the mid and distal segments. Right Profunda Femoris: Unremarkable. Right Popliteal:Occluded. Below-knee amputation. LEFT LOWER EXTREMITY ARTERIES: Left Common Femoral: Moderate plaque of the common femoral artery with mild stenosis. Left Superficial Femoral: Moderate plaque. Multiple areas of moderate stenosis in the proximal and segment. Distal occlusion of the SFA with no reconsitution. Left Profunda Femoris: Unremarkable. Left Popliteal: OCCLUDED. Tibial peroneal artery: Severely calcified with severe stenosis. Anterior tibial artery: Unremarkable. Posterior tibial artery: Heavily calcified and occludes in the proximal segment with possible distal reconstitution. Peroneal artery: Heavily calcified and occludes in the mid segment Dorsalis pedis artery: NON-ANGIOGRAPHIC ASPECT OF THE EXAM: LOWER THORAX: Unremarkable. LIVER: Unremarkable. No gross lesion or ductal dilatation. GALLBLADDER AND BILE DUCTS: Cholecystectomy PANCREAS: Unremarkable. No gross lesion or ductal dilatation. SPLEEN: Unremarkable. ADRENALS: Unremarkable. No mass. KIDNEYS AND URETERS: Atretic kidneys. Patient renal failure. STOMACH AND BOWEL: Limited evaluation without PO contrast. No obvious mass. APPENDIX: PERITONEUM: Unremarkable. No free fluid. No free air. LYMPH NODES: Unremarkable. No enlarged lymph nodes. BLADDER: Underdistended, limiting its evaluation. REPRODUCTIVE: BONES: No acute fracture. OTHER FINDINGS: Translumbar hemodialysis catheter terminates in the right atrium IMPRESSION: CT ANGIOGRAM ABDOMEN/ PELVIS: 1. No significant stenosis in the abdominal aorta or its major branches. 2. Iliac arteries are unremarkable. LEFT LOWER EXTREMITY CT ANGIOGRAM: 1. The multiple areas of stenosis throughout the SFA. There is moderate to severe stenosis in the proximal mid segment. The SFA is occluded distally with no definite reconstitution. 2. Popliteal artery is occluded. 3. The tibioperoneal artery is heavily calcified and severely stenotic. 4. The anterior tibial artery is patent unremarkable. The posterior tibial artery calcified and occludes in the proximal segment with possible distal reconstitution. The peroneal artery occludes in distal segment. RIGHT LOWER EXTREMITY CT ANGIOGRAM: 1. Femoral artery profunda femoral artery are unremarkable. 2. Superficial femoral was occluded 3. Below-knee amputation.
[2017-05-29] MEDS ORDERED: Emtricitabine-Tenofovir 200 mg-300 mg Tab PO SCH ×2 (10:00)
[2017-05-29] MEDS ORDERED: Enoxaparin 30 mg Syringe SC SCH (10:00)
[2017-05-29] MEDS ORDERED: Dakin's Topical 0.25%-Half Strength (480 ml) TOP SCH (10:00)
[2017-05-29] MEDS ORDERED: NATEGLINIDE 60 MG PO SCH (10:00)
[2017-05-29] MEDS: Brimonidine 0.2% Opth Sol (5ml) OU SCH ×2 (10:04→21:22)
[2017-05-29] MEDS: Tmp-Smz 800 mg-160 mg DS Tab PO SCH (10:06)
[2017-05-29] MEDS: Lopinavir/Ritonavir Tab PO SCH ×2 (10:07→18:00)
[2017-05-29] MEDS: Nystatin 100,000 Units/ml Oral Susp 5 ml UD PO SCH ×3 (10:08→17:55)
[2017-05-29] MEDS: Collagenase 250 Units/gm Ointment(30 gm) EXT SCH ×3 (10:09→18:00)
[2017-05-29] MEDS: Pantoprazole 40 mg EC Tab PO SCH (10:09)
[2017-05-29] MEDS: Vancomycin 1 gm/NS 200 ml 1 GM/200 ML BAG IVPB SCH (10:11)
[2017-05-29] MEDS: Magnesium Citrate Oral SOL (300 ml) PO SCH (10:30)
[2017-05-29] MEDS: Tramadol 25 mg PO PRN (10:38)
[2017-05-29] MEDS: Epoetin Alfa 10,000 unit/ml Dialysis IV SCH (12:32)
--- NOTE | 2017-05-29 13:09 | CP.PCM.PN ---
Subjective - Date & Time of Evaluation Date of Evaluation: 05/29/17 Time of Evaluation: 13:00 - Subjective Subjective: SEEN ON RENAL F/U HD TO START SHORTLY FEELS IMPROVED Objective - Vital Signs/Intake and Output Vital Signs (last 24 hours): Temp Pulse Resp BP Pulse Ox 98.5 F 76 16 83/32 L 95 05/29/17 09:38 05/29/17 10:10 05/29/17 10:10 05/29/17 12:40 05/29/17 09:38 - Medications Medications: Current Medications Acetaminophen (Tylenol 325mg Tab) 650 mg PO Q6 PRN PRN Reason: Pain, Mild (1-3) Last Admin: 05/28/17 17:46 Dose: 650 mg Acetaminophen (Tylenol 325mg Tab) 650 mg PO Q6 PRN PRN Reason: Fever >100.4 F Brimonidine Tartrate (Alphagan 0.2% Opht) 0 ml OU Q12 [facility] Last Admin: 05/29/17 10:04 Dose: 1 drop Cinacalcet (Sensipar) 60 mg PO DAILY [facility] Last Admin: 05/29/17 10:10 Dose: 60 mg Collagenase (Santyl) 0 gm EXT TID [facility] Last Admin: 05/29/17 10:09 Dose: 1 applic Emtricitabine/Tenofovir (Truvada 200 Mg-300 Mg) 1 tab PO DAILY [facility] Epoetin Alonso (Procrit) 10,[address] [facility] Last Admin: 05/29/17 12:32 Dose: 10,000 unit Famotidine (Pepcid) 20 mg PO DAILY [facility] Last Admin: 05/29/17 10:08 Dose: 20 mg Heparin Sodium (Porcine) (Heparin) 5,000 units SC Q8 [facility] Home Med (Nateglinide) 60 mg PO DAILY [facility] Vancomycin/Sodium Chloride (Vancomycin 1 Gm/Ns 200 Ml) 1 gm in 200 mls @ 133 mls/hr IVPB [facility] Stop: 06/03/17 09:01 Lopinavir/Ritonavir (Kaletra 200-50 Mg) 2 cap PO BID [facility] Last Admin: 05/29/17 10:07 Dose: 2 cap Magnesium Citrate (Citrate Of Mag) 300 ml PO DAILY [facility] Last Admin: 05/29/17 10:30 Dose: 300 ml Metoprolol Tartrate (Lopressor) 12.5 mg PO BID [facility] Last Admin: 05/29/17 12:07 Dose: Not Given Nystatin (Nystatin Oral Susp) 5 ml PO TID [facility] Last Admin: 05/29/17 10:08 Dose: 5 ml Ondansetron HCl (Zofran Inj) 4 mg IVP Q4 PRN PRN Reason: Nausea/Vomiting Pantoprazole Sodium (Protonix Ec Tab) 40 mg PO DAILY [facility] Last Admin: 05/29/17 10:09 Dose: 40 mg Pneumococcal Polyvalent Vaccine (Pneumovax 23 Vaccine) 0.5 ml IM .ONCE ONE Stop: 05/30/17 10:01 Raltegravir (Isentress) 400 mg PO BID [facility] Last Admin: 05/29/17 10:07 Dose: 400 mg Sevelamer Carbonate (Renvela) 800 mg PO TID [facility] Last Admin: 05/29/17 10:09 Dose: 800 mg Sodium Hypochlorite (Dakins Solution 0.25%) 0 ml TOP DAILY [facility] Last Admin: 05/29/17 10:23 Dose: 1 applic Timolol Maleate (Timoptic 0.5% Ophth Soln) 1 drop OS BID [facility] Last Admin: 05/29/17 10:10 Dose: 1 applic Tramadol HCl (Ultram) 25 mg PO TID PRN PRN Reason: Pain, severe (8-10) Last Admin: 05/29/17 10:38 Dose: 25 mg Trimethoprim/Sulfamethoxazole (Bactrim Ds Tab) 1 tab PO MWF [facility] Last Admin: 05/29/17 10:06 Dose: 1 tab - Labs Labs: 05/28/17 12:12 05/28/17 12:12 Assessment and Plan - Assessment and Plan (Free Text) Assessment: ESRD ON HD M W F .. ANEMIA OF CKD .. H/H STABLE FEELS IMPROVED p : C/O CURRENT CARE
--- NOTE | 2017-05-29 14:33 | CP.PCM.PN ---
<Gina Arias - Last Filed: 05/29/17 14:29> Subjective - Date & Time of Evaluation Date of Evaluation: 05/29/17 Time of Evaluation: 12:30 - Subjective Subjective: 57 y/o female seen and evaluated at bedside in dialysis with Dr. Alonso this afternoon. Patient appeared to be resting comfortably in her bed in NAD. Patient is AAOx3 and denies of any acute overnight events. Patient denies of any recent F/N/V/C/shortness of breath/chest pain/calf pain/headache/diarrhea. Patient denies of any other pedal complains at this time. Objective - Vital Signs/Intake and Output Vital Signs (last 24 hours): Temp Pulse Resp BP Pulse Ox 98.1 F 76 20 108/65 94 L 05/29/17 12:55 05/29/17 12:55 05/29/17 12:55 05/29/17 12:55 05/29/17 12:55 - Medications Medications: Current Medications Acetaminophen (Tylenol 325mg Tab) 650 mg PO Q6 PRN PRN Reason: Pain, Mild (1-3) Last Admin: 05/28/17 17:46 Dose: 650 mg Acetaminophen (Tylenol 325mg Tab) 650 mg PO Q6 PRN PRN Reason: Fever >100.4 F Brimonidine Tartrate (Alphagan 0.2% Opht) 0 ml OU Q12 [facility] Last Admin: 05/29/17 10:04 Dose: 1 drop Cinacalcet (Sensipar) 60 mg PO DAILY [facility] Last Admin: 05/29/17 10:10 Dose: 60 mg Collagenase (Santyl) 0 gm EXT TID [facility] Last Admin: 05/29/17 10:09 Dose: 1 applic Emtricitabine/Tenofovir (Truvada 200 Mg-300 Mg) 1 tab PO DAILY [facility] Epoetin Alonso (Procrit) 10,000 unit IV MWF [facility] Last Admin: 05/29/17 12:32 Dose: 10,000 unit Famotidine (Pepcid) 20 mg PO DAILY [facility] Last Admin: 05/29/17 10:08 Dose: 20 mg Heparin Sodium (Porcine) (Heparin) 5,000 units SC Q8 [facility] Home Med (Nateglinide) 60 mg PO DAILY [facility] Vancomycin/Sodium Chloride (Vancomycin 1 Gm/Ns 200 Ml) 1 gm in 200 mls @ 133 mls/hr IVPB MWF [facility] Stop: 06/03/17 09:01 Lopinavir/Ritonavir (Kaletra 200-50 Mg) 2 cap PO BID [facility] Last Admin: 05/29/17 10:07 Dose: 2 cap Magnesium Citrate (Citrate Of Mag) 300 ml PO DAILY [facility] Last Admin: 05/29/17 10:30 Dose: 300 ml Metoprolol Tartrate (Lopressor) 12.5 mg PO BID [facility] Last Admin: 05/29/17 12:07 Dose: Not Given Nystatin (Nystatin Oral Susp) 5 ml PO TID [facility] Last Admin: 05/29/17 10:08 Dose: 5 ml Ondansetron HCl (Zofran Inj) 4 mg IVP Q4 PRN PRN Reason: Nausea/Vomiting Pantoprazole Sodium (Protonix Ec Tab) 40 mg PO DAILY [facility] Last Admin: 05/29/17 10:09 Dose: 40 mg Pneumococcal Polyvalent Vaccine (Pneumovax 23 Vaccine) 0.5 ml IM .ONCE ONE Stop: 05/30/17 10:01 Raltegravir (Isentress) 400 mg PO BID [facility] Last Admin: 05/29/17 10:07 Dose: 400 mg Sevelamer Carbonate (Renvela) 800 mg PO TID [facility] Last Admin: 05/29/17 10:09 Dose: 800 mg Sodium Hypochlorite (Dakins Solution 0.25%) 0 ml TOP DAILY [facility] Last Admin: 05/29/17 10:23 Dose: 1 applic Timolol Maleate (Timoptic 0.5% Oph Soln) 1 drop OS BID [facility] Last Admin: 05/29/17 10:10 Dose: 1 applic Tramadol HCl (Ultram) 25 mg PO TID PRN PRN Reason: Pain, severe (8-10) Last Admin: 05/29/17 10:38 Dose: 25 mg Trimethoprim/Sulfamethoxazole (Bactrim Ds Tab) 1 tab PO F [facility] Last Admin: 05/29/17 10:06 Dose: 1 tab - Labs Labs: 05/28/17 12:12 05/28/17 12:12 - Constitutional Appears: Well, Non-toxic, No Acute Distress - Extremities Exam Additional comments: 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 focused: Vasc: lightly palpable DP and PT pulses, TG wnl, CFT < 4 sec to all digits Derm: posterior heel ulceration measuring 3cm x 4cm on the lateral aspect, fibrous base, necrotic edges, necrotic eschar on the posteromedial aspect, malodor decreased but still present, no purulence, mild serous drainage noted on bandage, no underlying fluctuance, no ascending cellulitis, diffuse xerosis noted plantarly Neuro: grossly diminished Ortho: contracted lower extremity, pain on palpation of posterior heel - Neurological Exam Neurological Exam: Alert, Awake, Oriented x3 - Psychiatric Exam Psychiatric exam: Normal Affect, Normal Mood Assessment and Plan - Assessment and Plan (Free Text) Assessment: 57 y/o female with pmhx of Anxiety, CHF, Dementia, Diabetes, HIV, HTN, Hyperthyroidism, Hypothyroidism, End Stage Renal Disease, Chronic Kidney Disease , seen at bedside in dialysis for left foot unstageable ulceration of posterior heel secondary to pressure Plan: Patient evaluated and chart reviewed with attending Dr. Alonso labs and vitals reviewed; afebrile WBC @ 6.5 from yesterday X-ray: No evidence of active OM Bone scan - pending Remain on IV abx as per ID - Vancomycin Vasc consult placed, inputs appreciated - occlusion of the SFA and popliteal artery noted on LLE on angio. Anterior tibial artery is patent. Posterior tibial artery is calcified and occludes in the proximal segment. Peroneal artery occludes in distal segment Wound cx taken of left foot - pending cleansed wound with sterile normal saline, applied DSD to left foot podiatry will continue to follow while patient remains in house <Gus Alonso - Last Filed: 05/29/17 21:48> Objective - Vital Signs/Intake and Output Vital Signs (last 24 hours): Temp Pulse Resp BP Pulse Ox 99.3 F 71 20 119/76 100 05/29/17 15:00 05/29/17 15:00 05/29/17 15:00 05/29/17 15:00 05/29/17 15:00 - Medications Medications: Current Medications Acetaminophen (Tylenol 325mg Tab) 650 mg PO Q6 PRN PRN Reason: Pain, Mild (1-3) Last Admin: 05/28/17 17:46 Dose: 650 mg Acetaminophen (Tylenol 325mg Tab) 650 mg PO Q6 PRN PRN Reason: Fever >100.4 F Brimonidine Tartrate (Alphagan 0.2% Opht) 0 ml OU Q12 [facility] Last Admin: 05/29/17 21:22 Dose: 1 drop Cinacalcet (Sensipar) 60 mg PO DAILY [facility] Last Admin: 05/29/17 10:10 Dose: 60 mg Collagenase (Santyl) 0 gm EXT TID [facility] Last Admin: 05/29/17 14:10 Dose: 1 applic Epoetin Alonso (Procrit) 10,000 unit IV [facility] Last Admin: 05/29/17 12:32 Dose: 10,000 unit Famotidine (Pepcid) 20 mg PO DAILY [facility] Last Admin: 05/29/17 10:08 Dose: 20 mg Heparin Sodium (Porcine) (Heparin) 5,000 units SC Q8 [facility] Last Admin: 05/29/17 21:23 Dose: 5,000 units Home Med (Nateglinide) 60 mg PO DAILY [facility] Vancomycin/Sodium Chloride (Vancomycin 1 Gm/Ns 200 Ml) 1 gm in 200 mls @ 133 mls/hr IVPB MWF [facility] Stop: 06/03/17 09:01 Last Admin: 05/29/17 10:11 Dose: 133 mls/hr Cefepime HCl (Maxipime Iv 1 Gm Premix) 1 gm in 50 mls @ 100 mls/hr IVPB Q24H [facility] Last Admin: 05/29/17 18:12 Dose: 100 mls/hr Lopinavir/Ritonavir (Kaletra 200-50 Mg) 2 cap PO BID [facility] Last Admin: 05/29/17 18:00 Dose: 2 cap Magnesium Citrate (Citrate Of Mag) 300 ml PO DAILY [facility] Last Admin: 05/29/17 10:30 Dose: 300 ml Metoprolol Tartrate (Lopressor) 12.5 mg PO BID [facility] Last Admin: 05/29/17 17:55 Dose: 12.5 mg Nystatin (Nystatin Oral Susp) 5 ml PO TID [facility] Last Admin: 05/29/17 17:55 Dose: 5 ml Ondansetron HCl (Zofran Inj) 4 mg IVP Q4 PRN PRN Reason: Nausea/Vomiting Pantoprazole Sodium (Protonix Ec Tab) 40 mg PO DAILY [facility] Last Admin: 05/29/17 10:09 Dose: 40 mg Pneumococcal Polyvalent Vaccine (Pneumovax 23 Vaccine) 0.5 ml IM .ONCE ONE Stop: 05/30/17 10:01 Raltegravir (Isentress) 400 mg PO BID [facility] Last Admin: 05/29/17 18:00 Dose: 400 mg Sevelamer Carbonate (Renvela) 800 mg PO TID [facility] Last Admin: 05/29/17 17:55 Dose: 800 mg Sodium Hypochlorite (Dakins Solution 0.25%) 0 ml TOP DAILY [facility] Last Admin: 05/29/17 10:23 Dose: 1 applic Timolol Maleate (Timoptic 0.5% Oph Soln) 1 drop OS BID [facility] Last Admin: 05/29/17 10:10 Dose: 1 applic Tramadol HCl (Ultram) 25 mg PO TID PRN PRN Reason: Pain, severe (8-10) Last Admin: 05/29/17 10:38 Dose: 25 mg Trimethoprim/Sulfamethoxazole (Bactrim Ds Tab) 1 tab PO MWF [facility] Last Admin: 05/29/17 10:06 Dose: 1 tab - Labs Labs: 05/28/17 12:12 05/28/17 12:12 Attending/Attestation - Attestation I have personally seen and examined this patient.: Yes I have fully participated in the care of the patient.: Yes I have reviewed all pertinent clinical information, including history, physical exam and plan: Yes Notes (Text): 05/29/17 21:48 Vasc work up in progress. Cont with local wound care for now.
--- NOTE | 2017-05-29 16:22 | CP.PCM.CON ---
History of Present Illness - History of Present Illness History of Present Illness: 57 year old female presented to the ED for evaluation of a painful left foot ulcer which started about 2 weeks ago. The ulcer progressively worsened and was advised by her editor department, Dr. Alonso, to come to the hospital Found to have severer left heel ulcer with necrotic tissue and Vascular, Podiatric and ID eval in progress Hx HIV on HAART rx with reportedly good response ROS: Denies AREVALO, fever, chills, chest pain, palpitations, shortness of breath, cough, nausea, vomiting, constipation, diarrhea, numbness, tingling Positive for left heel ulcer PMHx: Anxiety, CHF, DM, HIV, HTN, ESRD, CKD PSHx: Right BKA Allergies: NKDA Social: denies alcohol or recreational drug abuse; denies smoking but has smoked in the past Family Hx: Mother - DM; Father - HTN Review of Systems - Constitutional Constitutional: As Per HPI - EENT Eyes: As Per HPI, Blind Spots, Blurred Vision Ears: absent: As Per HPI, Decreased Hearing, Ear Discharge, Ear Pain, Tinnitus, Abnormal Hearing, Disequilibrium, Dizziness, Other Nose/Mouth/Throat: absent: As Per HPI, Epistaxis, Nasal Congestion, Nasal Discharge, Nasal Obstruction, Nasal Trauma, Nose Pain, Post Nasal Drip, Sinus Pain, Sinus Pressure, Bleeding Gums, Change in Voice, Dental Pain, Dry Mouth, Dysphagia, Halitosis, Hoarsness, Lip Swelling, Mouth Lesions, Mouth Pain, Odynophagia, Sore Throat, Throat Swelling, Tongue Swelling, Facial Pain, Neck Pain, Neck Mass, Other - Breasts Breasts: absent: As Per HPI, Change in Shape, Mass, Pain, Nipple Discharge, Nipple Inversion, Skin Changes, Swelling, Other - Cardiovascular Cardiovascular: absent: As Per HPI, Acrocyanosis, Chest Pain, Chest Pain at Rest , Chest Pain with Activity, Claudication, Diaphoresis, Dyspnea, Dyspnea on Exertion, Edema, Irregular Heart Rhythm, Pain Radiating to Arm/Neck/Jaw, Leg Edema, Leg Ulcers, Lightheadedness, Orthopnea, Palpitations, Paroxysmal Nocturnal Dyspnea, Pedal Edema, Radiating Pain, Rapid Heart Rate, Slow Heart Rate, Syncope, Other - Respiratory Respiratory: absent: As Per HPI, Cough, Dyspnea, Hemoptysis, Dyspnea on Exertion , Wheezing, Snoring, Stridor, Pain on Inspiration, Chest Congestion, Excessive Mucous Production, Change in Mucous Color, Pain with Coughing, Other - Gastrointestinal Gastrointestinal: absent: As Per HPI, Abdominal Pain, Belching, Bloating, Change in Bowel Habits, Change in Stool Character, Coffee Ground Emesis, Constipation, Cramping, Diarrhea, Dyspepsia, Dysphagia, Early Satiety, Excessive Flatus, Fecal Incontinence, Heartburn, Hematemesis, Hematochezia, Loose Stools, Melena, Nausea, Odynophagia, Temesmus, Vomiting, Other - Genitourinary Genitourinary: absent: As Per HPI, Change in Urinary Stream, Difficulty Urinating, Dysuria, Flank Pain, Hematuria, Pyuria, Nocturia, Urinary Incontinence, Urinary Frequency, Urinary Hesitance, Urinary Urgency, Voiding Freq/Small Amts, Freq UTI, Hx Renal/Bladder Calculi, Hx /Renal Surgery, Bladder Distension, Other - Reproductive: Female Reproductive:Female: absent: As Per HPI, Amenorrhea, Amenorrhea/ Control, Currently Menstual, Cycle <21 Days, Cycle >35 Days, Cycle Variable, Menses 1-7 Days, Menses >/= 8 Days, Menses Variable, Cycle > 4 Weeks Between, No Menses for 6 Months, Heavy Menses, Light Menses, Normal Menses, Spotting Between Cycles , S/P Hysterectomy, Menopausal, Post Menopausal, Premenarche, Abnormal Vaginal Bleeding, Dysmenorrhea, Dyspareunia, Genital Lesions, Genital Pruritis, Pelvic Pain, Prolapse Symptoms, Sexual Dysfunction, Vaginal Discharge, Vaginal Dryness , Vaginal Odor, Vaginal Pruritis, Other - Menstruation Menstruation: absent: As Per HPI, Amenorrhea, Amenorrhea/ Control, Currently Menstual, Cycle <21 Days, Cycle >35 Days, Cycle Variable, Menses 1-7 Days, Menses >/= 8 Days, Menses Variable, Cycle > 4 Weeks Between, No Menses for 6 Months, Heavy Menses, Light Menses, Normal Menses, Spotting Between Cycles , S/P Hysterectomy, Menopausal, Post Menopausal, Premenarche, Abnormal Vaginal Bleeding, Dysmenorrhea, Other - Musculoskeletal Musculoskeletal: As Per HPI - Integumentary Integumentary: As Per HPI, Skin Pain, Wounds - Neurological Neurological: As Per HPI - Psychiatric Psychiatric: absent: As Per HPI, Abnormal Sleep Pattern, Anhedonia, Anxiety, Auditory Hallucinations, Behavioral Changes, Change in Appetite, Change in Libido, Confusion, Depression, Difficulty Concentrating, Hallucinations, Homicidal Ideation, Hopelessness, Irritability, Memory Loss, Mood Swings, Panic Attacks, Paranoia, Suicidal Ideation, Visual Hallucinations, Tactile Hallucinations, Other - Endocrine Endocrine: absent: As Per HPI, Change in Body Appearance, Change in Libido, Cold Intolorance, Deepening of Voice, Excessive Sweating, Fatigue, Flushing, Heat Intolorance, Increase in Ring/Shoe/Hat Size, Palpitations, Polydipsia, Polyphagia, Polyuria, Other - Hematologic/Lymphatic Hematologic: absent: As Per HPI, Easy Bleeding, Easy Bruising, Lymphadenopathy, Other Past Patient History - Infectious Disease Hx of Infectious Diseases: None - Past Medical History & Family History Past Medical History?: Yes - Past Social History Smoking Status: Former Smoker Alcohol: None Drugs: Denies - CARDIAC Hx Congestive Heart Failure: Yes Hx Hypertension: Yes - PULMONARY Hx Respiratory Disorders: No - NEUROLOGICAL Hx Dementia: Yes - HEENT Hx HEENT Problems: Yes Hx Glaucoma: Yes (L Eye) - RENAL Hx Chronic Kidney Disease: Yes Hx Dialysis: Yes Date of Last Dialysis Treatment: 05/27/17 - ENDOCRINE/METABOLIC Hx Hyperthyroidism: Yes Hx Hypothyroidism: Yes - HEMATOLOGICAL/ONCOLOGICAL Hx Human Immunodeficiency Virus (HIV): Yes - INTEGUMENTARY Hx Dermatological Problems: No - MUSCULOSKELETAL/RHEUMATOLOGICAL Hx Musculoskeletal Disorders: Yes Hx Falls: Yes Other/Comment: right bka - GASTROINTESTINAL Hx Gastrointestinal Disorders: No - GENITOURINARY/GYNECOLOGICAL Hx Genitourinary Disorders: Yes Other/Comment: oliguria, on hemodialysis MWF - PSYCHIATRIC Hx Anxiety: Yes Hx Substance Use: No - SURGICAL HISTORY Hx Surgeries: Yes Hx Amputation: Yes (RIGHT BKA) Hx Orthopedic Surgery: Yes Hx Vascular Access Device: Yes (R lower back area for HD) - ANESTHESIA Hx Anesthesia: Yes Hx Anesthesia Reactions: No Hx Malignant Hyperthermia: No Meds Allergies/Adverse Reactions: Allergies Allergy/AdvReac Type Severity Reaction Status Date / Time No Known Allergies Allergy Verified 02/01/17 12:33 - Medications Medications: Current Medications Acetaminophen (Tylenol 325mg Tab) 650 mg PO Q6 PRN PRN Reason: Pain, Mild (1-3) Last Admin: 05/28/17 17:46 Dose: 650 mg Acetaminophen (Tylenol 325mg Tab) 650 mg PO Q6 PRN PRN Reason: Fever >100.4 F Brimonidine Tartrate (Alphagan 0.2% Opht) 0 ml OU Q12 [facility] Last Admin: 05/29/17 10:04 Dose: 1 drop Cinacalcet (Sensipar) 60 mg PO DAILY [facility] Last Admin: 05/29/17 10:10 Dose: 60 mg Collagenase (Santyl) 0 gm EXT TID [facility] Last Admin: 05/29/17 14:10 Dose: 1 applic Emtricitabine/Tenofovir (Truvada 200 Mg-300 Mg) 1 tab PO DAILY [facility] Epoetin Alonso (Procrit) 10,000 unit IV MWF [facility] Last Admin: 05/29/17 12:32 Dose: 10,000 unit Famotidine (Pepcid) 20 mg PO DAILY [facility] Last Admin: 05/29/17 10:08 Dose: 20 mg Heparin Sodium (Porcine) (Heparin) 5,000 units SC Q8 [facility] Last Admin: 05/29/17 15:00 Dose: 5,000 units Home Med (Nateglinide) 60 mg PO DAILY [facility] Vancomycin/Sodium Chloride (Vancomycin 1 Gm/Ns 200 Ml) 1 gm in 200 mls @ 133 mls/hr IVPB MWF [facility] Stop: 06/03/17 09:01 Last Admin: 05/29/17 10:11 Dose: 133 mls/hr Lopinavir/Ritonavir (Kaletra 200-50 Mg) 2 cap PO BID [facility] Last Admin: 05/29/17 10:07 Dose: 2 cap Magnesium Citrate (Citrate Of Mag) 300 ml PO DAILY [facility] Last Admin: 05/29/17 10:30 Dose: 300 ml Metoprolol Tartrate (Lopressor) 12.5 mg PO BID [facility] Last Admin: 05/29/17 12:07 Dose: Not Given Nystatin (Nystatin Oral Susp) 5 ml PO TID [facility] Last Admin: 05/29/17 15:00 Dose: Not Given Ondansetron HCl (Zofran Inj) 4 mg IVP Q4 PRN PRN Reason: Nausea/Vomiting Pantoprazole Sodium (Protonix Ec Tab) 40 mg PO DAILY [facility] Last Admin: 05/29/17 10:09 Dose: 40 mg Pneumococcal Polyvalent Vaccine (Pneumovax 23 Vaccine) 0.5 ml IM .ONCE ONE Stop: 05/30/17 10:01 Raltegravir (Isentress) 400 mg PO BID [facility] Last Admin: 05/29/17 10:07 Dose: 400 mg Sevelamer Carbonate (Renvela) 800 mg PO TID [facility] Last Admin: 05/29/17 14:11 Dose: 800 mg Sodium Hypochlorite (Dakins Solution 0.25%) 0 ml TOP DAILY [facility] Last Admin: 05/29/17 10:23 Dose: 1 applic Timolol Maleate (Timoptic 0.5% Ophth Soln) 1 drop OS BID [facility] Last Admin: 05/29/17 10:10 Dose: 1 applic Tramadol HCl (Ultram) 25 mg PO TID PRN PRN Reason: Pain, severe (8-10) Last Admin: 05/29/17 10:38 Dose: 25 mg Trimethoprim/Sulfamethoxazole (Bactrim Ds Tab) 1 tab PO MWF [facility] Last Admin: 05/29/17 10:06 Dose: 1 tab Physical Exam - Constitutional Appears: Non-toxic, Cachectic, Chronically Ill - Head Exam Head Exam: ATRAUMATIC, NORMAL INSPECTION, NORMOCEPHALIC - Eye Exam Eye Exam: absent: Scleral icterus - ENT Exam ENT Exam: Mucous Membranes Dry, Normal External Ear Exam - Neck Exam Neck exam: Negative for: Lymphadenopathy - Respiratory Exam Respiratory Exam: Decreased Breath Sounds, Rhonchi - Cardiovascular Exam Cardiovascular Exam: REGULAR RHYTHM, +S1, +S2 - GI/Abdominal Exam GI & Abdominal Exam: Diminished Bowel Sounds, Soft. absent: Tenderness - Rectal Exam Rectal Exam: Deferred - Exam Exam: NORMAL INSPECTION - Extremities Exam Extremities exam: Positive for: pedal edema Additional comments: RIGHT BKA LEFT HEEL NECROTIC PULSE DIMINISHED - Back Exam Back exam: absent: CVA tenderness (L), CVA tenderness (R) - Neurological Exam Neurological exam: Alert, CN II-XII Intact, Oriented x3, Reflexes Normal - Psychiatric Exam Psychiatric exam: Depressed - Skin Skin Exam: Dry Results - Vital Signs Recent Vital Signs: Last Vital Signs Temp 99.3 F 05/29/17 15:00 Pulse 71 05/29/17 15:00 Resp 20 05/29/17 15:00 BP 119/76 05/29/17 15:00 Pulse Ox 100 05/29/17 15:00 - Labs Result Diagrams: 05/28/17 12:12 05/28/17 12:12 Labs: Laboratory Results - last 24 hr 05/28/17 05/28/17 05/29/17 17:13 21:16 07:36 POC Glucose (mg/dL) 77 107 63 L 05/29/17 05/29/17 05/29/17 08:51 11:45 16:05 POC Glucose (mg/dL) 134 H 79 137 H Assessment & Plan (1) Foot ulcer, left Status: Acute (2) Bandemia Status: Acute - Assessment and Plan (Free Text) Assessment: AWAIT BONE SCAN, VASCULAR EVAL AND CULTURES CONT IV ANTIBIOTICS
--- NOTE | 2017-05-29 16:31 | CP.PCM.PN ---
Subjective - Date & Time of Evaluation Date of Evaluation: 05/29/17 Time of Evaluation: 11:00 - Subjective Subjective: VASCULAR SURGERY CONSULT NOTE FOR DR. BRIAN Patient seen and examined at bedside. She had dialysis today. Has pain in her foot. Objective - Vital Signs/Intake and Output Vital Signs (last 24 hours): Temp Pulse Resp BP Pulse Ox 99.3 F 71 20 119/76 100 05/29/17 15:00 05/29/17 15:00 05/29/17 15:00 05/29/17 15:00 05/29/17 15:00 - Medications Medications: Current Medications Acetaminophen (Tylenol 325mg Tab) 650 mg PO Q6 PRN PRN Reason: Pain, Mild (1-3) Last Admin: 05/28/17 17:46 Dose: 650 mg Acetaminophen (Tylenol 325mg Tab) 650 mg PO Q6 PRN PRN Reason: Fever >100.4 F Brimonidine Tartrate (Alphagan 0.2% Opht) 0 ml OU Q12 [facility] Last Admin: 05/29/17 10:04 Dose: 1 drop Cinacalcet (Sensipar) 60 mg PO DAILY [facility] Last Admin: 05/29/17 10:10 Dose: 60 mg Collagenase (Santyl) 0 gm EXT TID [facility] Last Admin: 05/29/17 14:10 Dose: 1 applic Emtricitabine/Tenofovir (Truvada 200 Mg-300 Mg) 1 tab PO DAILY [facility] Epoetin Alonso (Procrit) 10,000 unit IV MWF [facility] Last Admin: 05/29/17 12:32 Dose: 10,000 unit Famotidine (Pepcid) 20 mg PO DAILY [facility] Last Admin: 05/29/17 10:08 Dose: 20 mg Heparin Sodium (Porcine) (Heparin) 5,000 units SC Q8 [facility] Last Admin: 05/29/17 15:00 Dose: 5,000 units Home Med (Nateglinide) 60 mg PO DAILY [facility] Vancomycin/Sodium Chloride (Vancomycin 1 Gm/Ns 200 Ml) 1 gm in 200 mls @ 133 mls/hr IVPB MWF [facility] Stop: 06/03/17 09:01 Last Admin: 05/29/17 10:11 Dose: 133 mls/hr Lopinavir/Ritonavir (Kaletra 200-50 Mg) 2 cap PO BID [facility] Last Admin: 05/29/17 10:07 Dose: 2 cap Magnesium Citrate (Citrate Of Mag) 300 ml PO DAILY [facility] Last Admin: 05/29/17 10:30 Dose: 300 ml Metoprolol Tartrate (Lopressor) 12.5 mg PO BID [facility] Last Admin: 05/29/17 12:07 Dose: Not Given Nystatin (Nystatin Oral Susp) 5 ml PO TID [facility] Last Admin: 05/29/17 15:00 Dose: Not Given Ondansetron HCl (Zofran Inj) 4 mg IVP Q4 PRN PRN Reason: Nausea/Vomiting Pantoprazole Sodium (Protonix Ec Tab) 40 mg PO DAILY [facility] Last Admin: 05/29/17 10:09 Dose: 40 mg Pneumococcal Polyvalent Vaccine (Pneumovax 23 Vaccine) 0.5 ml IM .ONCE ONE Stop: 05/30/17 10:01 Raltegravir (Isentress) 400 mg PO BID [facility] Last Admin: 05/29/17 10:07 Dose: 400 mg Sevelamer Carbonate (Renvela) 800 mg PO TID [facility] Last Admin: 05/29/17 14:11 Dose: 800 mg Sodium Hypochlorite (Dakins Solution 0.25%) 0 ml TOP DAILY [facility] Last Admin: 05/29/17 10:23 Dose: 1 applic Timolol Maleate (Timoptic 0.5% Oph Soln) 1 drop OS BID [facility] Last Admin: 05/29/17 10:10 Dose: 1 applic Tramadol HCl (Ultram) 25 mg PO TID PRN PRN Reason: Pain, severe (8-10) Last Admin: 05/29/17 10:38 Dose: 25 mg Trimethoprim/Sulfamethoxazole (Bactrim Ds Tab) 1 tab PO MWF [facility] Last Admin: 05/29/17 10:06 Dose: 1 tab - Labs Labs: 05/28/17 12:12 05/28/17 12:12 - Constitutional Appears: Non-toxic, No Acute Distress, Chronically Ill - Respiratory Exam Respiratory Exam: NORMAL BREATHING PATTERN. absent: Respiratory Distress - Cardiovascular Exam Cardiovascular Exam: +S1, +S2 - Extremities Exam Additional comments: left foot dressing clean/dry/intact - Neurological Exam Neurological Exam: Alert, Awake Assessment and Plan - Assessment and Plan (Free Text) Assessment: 57 year old female with past medical history of DM, ESRD, HIV, HTN with a chronic non healing left heel ulcer - CTA: left SFA stenosis, SFA occluded distally with no definite reconstitution , popliteal artery occluded - Angio tomorrow - NPO past midnight - Heparin held at 1 AM - Iv Abx per ID Discussed plan with Dr. Yahir Martinez PGY-3
[2017-05-29] MEDS: Cefepime IV 1 gm in Dextrose 1 GM/50 ML BAG IVPB SCH (18:12)
--- NOTE | 2017-05-30 01:03 | CP.PCM.PN ---
Subjective - Date & Time of Evaluation Date of Evaluation: 05/29/17 Time of Evaluation: 22:00 - Subjective Subjective: She has a pain over the left leg. But slightly tolerable. Taking tramadol. Received hemodialysis today No chest pain. Patient seen by infectious disease, vascular surgery. Possible surgical intervention tomorrow. Continue the current treatment, antibiotic and will follow the patient Objective - Vital Signs/Intake and Output Vital Signs (last 24 hours): Temp Pulse Resp BP Pulse Ox 99.3 F 71 20 119/76 100 05/29/17 15:00 05/29/17 15:00 05/29/17 15:00 05/29/17 15:00 05/29/17 15:00 - Medications Medications: Current Medications Acetaminophen (Tylenol 325mg Tab) 650 mg PO Q6 PRN PRN Reason: Pain, Mild (1-3) Last Admin: 05/28/17 17:46 Dose: 650 mg Acetaminophen (Tylenol 325mg Tab) 650 mg PO Q6 PRN PRN Reason: Fever >100.4 F Brimonidine Tartrate (Alphagan 0.2% Opht) 0 ml OU Q12 [facility] Last Admin: 05/29/17 21:22 Dose: 1 drop Cinacalcet (Sensipar) 60 mg PO DAILY [facility] Last Admin: 05/29/17 10:10 Dose: 60 mg Collagenase (Santyl) 0 gm EXT TID [facility] Last Admin: 05/29/17 14:10 Dose: 1 applic Epoetin Alonso (Procrit) 10,000 unit IV [facility] [place] Last Admin: 05/29/17 12:32 Dose: 10,000 unit Famotidine (Pepcid) 20 mg PO DAILY [facility] Last Admin: 05/29/17 10:08 Dose: 20 mg Heparin Sodium (Porcine) (Heparin) 5,000 units SC Q8 [facility] Last Admin: 05/29/17 21:23 Dose: 5,000 units Home Med (Nateglinide) 60 mg PO DAILY [facility] Vancomycin/Sodium Chloride (Vancomycin 1 Gm/Ns 200 Ml) 1 gm in 200 mls @ 133 mls/hr IVPB [facility] [place] Stop: 06/03/17 09:01 Last Admin: 05/29/17 10:11 Dose: 133 mls/hr Cefepime HCl (Maxipime Iv 1 Gm Premix) 1 gm in 50 mls @ 100 mls/hr IVPB [facility] Last Admin: 05/29/17 18:12 Dose: 100 mls/hr Lopinavir/Ritonavir (Kaletra 200-50 Mg) 2 cap PO BID [facility] Last Admin: 05/29/17 18:00 Dose: 2 cap Magnesium Citrate (Citrate Of Mag) 300 ml PO DAILY [facility] Last Admin: 05/29/17 10:30 Dose: 300 ml Metoprolol Tartrate (Lopressor) 12.5 mg PO BID [facility] Last Admin: 05/29/17 17:55 Dose: 12.5 mg Nystatin (Nystatin Oral Susp) 5 ml PO TID [facility] Last Admin: 05/29/17 17:55 Dose: 5 ml Ondansetron HCl (Zofran Inj) 4 mg IVP Q4 PRN PRN Reason: Nausea/Vomiting Pantoprazole Sodium (Protonix Ec Tab) 40 mg PO DAILY [facility] Last Admin: 05/29/17 10:09 Dose: 40 mg Pneumococcal Polyvalent Vaccine (Pneumovax 23 Vaccine) 0.5 ml IM .ONCE ONE Stop: 05/30/17 10:01 Raltegravir (Isentress) 400 mg PO BID [facility] Last Admin: 05/29/17 18:00 Dose: 400 mg Sevelamer Carbonate (Renvela) 800 mg PO TID [facility] Last Admin: 05/29/17 17:55 Dose: 800 mg Sodium Hypochlorite (Dakins Solution 0.25%) 0 ml TOP DAILY [facility] Last Admin: 05/29/17 10:23 Dose: 1 applic Timolol Maleate (Timoptic 0.5% Oph Soln) 1 drop OS BID [facility] Last Admin: 05/29/17 10:10 Dose: 1 applic Tramadol HCl (Ultram) 25 mg PO TID PRN PRN Reason: Pain, severe (8-10) Last Admin: 05/29/17 10:38 Dose: 25 mg Trimethoprim/Sulfamethoxazole (Bactrim Ds Tab) 1 tab PO MWF [facility] Last Admin: 05/29/17 10:06 Dose: 1 tab - Labs Labs: 05/28/17 12:12 05/28/17 12:12
[2017-05-30] MEDS ORDERED: Morphine 4 MG/ML VIAL IV ONE (04:01)
[2017-05-30 08:34] LABS: BASO % 0.4 % (0.0-2.0); EOS # 0.1 K/uL (0.0-0.7); HEMATOCRIT 32.5 % (34.0-47.0); LYMPH # 0.8 K/uL (1.0-4.3); LYMPH % 14.9 % (20.0-40.0); MEAN CELL VOLUME 89.3 fL (81.0-99.0); MEAN CORPUSCULAR HEMOGLOBIN 28.3 pg (27.0-31.0); MEAN CORPUSCULAR HGB CONC 31.7 g/dL (33.0-37.0); MEAN PLATELET VOLUME 8.7 fL (7.2-11.7); MONO # 0.4 K/uL (0.0-0.8); MONO % 8.1 % (0.0-10.0); RED CELL DISTRIBUTION WIDTH 20.6 % (11.5-14.5); WHITE BLOOD COUNT 5.2 K/uL (4.8-10.8)
[2017-05-30 09:06] LABS: ALB/GLOB RATIO 0.6 (1.0-2.1); BILIRUBIN,TOTAL 0.6 mg/dL (0.2-1.3); TOTAL PROTEIN 9.6 g/dL (6.3-8.3)
[2017-05-30 09:07] LABS: CALCIUM 9.2 mg/dl (8.6-10.4)
[2017-05-30] MEDS: Brimonidine 0.2% Opth Sol (5ml) OU SCH ×2 (09:40→21:11)
[2017-05-30] MEDS: Nystatin 100,000 Units/ml Oral Susp 5 ml UD PO SCH ×3 (09:40→18:03)
[2017-05-30] MEDS: Lopinavir/Ritonavir Tab PO SCH ×2 (09:40→18:00)
[2017-05-30] MEDS: Pantoprazole 40 mg EC Tab PO SCH (09:41)
[2017-05-30] MEDS: Collagenase 250 Units/gm Ointment(30 gm) EXT SCH ×4 (09:43→18:05)
[2017-05-30] MEDS: Dakin's Topical 0.25%-Half Strength (480 ml) TOP SCH (09:44)
[2017-05-30] MEDS: Magnesium Citrate Oral SOL (300 ml) PO SCH (09:45)
[2017-05-30] MEDS ORDERED: Pneumococcal 23-Valent Vaccine IM ONE (10:00)
[2017-05-30] MEDS ORDERED: DiphenhydrAMINE 50 mg/ml Inj ONE (11:03)
[2017-05-30] MEDS ORDERED: Propofol 10 mg/ml Inj (20 ML) ONE (11:03)
[2017-05-30] MEDS ORDERED: Midazolam 2 MG/2 ML VIAL ONE (11:03)
[2017-05-30] MEDS ORDERED: Etomidate 20 mg/10ml Inj IV ONE (12:25)
[2017-05-30] MEDS ORDERED: ePHEDrine 50 mg/ml Inj ONE (12:25)
[2017-05-30] MEDS ORDERED: Iohexol 350mg/ml 100 ML ONE (12:50)
[2017-05-30] MEDS ORDERED: Iodixanol 320 MG/ML 100 ML BOTTLE IV ONE (12:52)
--- NOTE | 2017-05-30 13:08 | NM ---
PROCEDURE: Whole Body Bone Scan HISTORY: Left Leg: Foot ulcer COMPARISON: 05/28/2017 left foot radiographs TECHNIQUE: Following administration of 23.5 miCu of Tc MDP multiplanar whole body images were obtained. FINDINGS: Flow component: Increased flow to the visualize left lower extremity including left ankle and foot. Blood pool component: No focal accumulation of radionuclide with respect to visualized osseous structures. 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 Other findings: None. IMPRESSION: Findings consistent with cellulitis without evidence of acute osteomyelitis. Concordant results (preliminary interpretation) provided by [facility]. Procedure Completed: 17:14 Preliminary ([facility]) Report: Dictated and Authenticated: 17:27 Final Interpretation: 13:02 May 30, 2017
[2017-05-30] MEDS ORDERED: Ketamine 50 mg/ml Inj (10 ml) ONE (13:31)
--- NOTE | 2017-05-30 15:12 | PCM.SURG1 ---
Surgeon's Initial Post Op Note - Surgeon's Notes Surgeon: Dr. Sinclair Manager Analysis: Tahira PGY1 Type of Anesthesia: IV Sedation Anesthesia Administered By: Dr. Dean Pre-Operative Diagnosis: Peripheral artery Disease Operative Findings: see operative report Post-Operative Diagnosis: Peripheral artery Disease Operation Performed: Aortofemoral Angiogram with bilateral run-off, selective catheterization of left femoral artery, pathway arthrecetomy of superficial femoralartery, popliteal artery and anterior tibialis artery, balloon angioplasty of superficial femoral artery, popliteal artery and anterior tibialis artery, Drug eluting balloon angioplasty of superficial femoral artery , popliteal artery and anterior tibialis artery, stent placement x 2 in superficial femoral/popliteal artery Specimen/Specimens Removed: N/A Estimated Blood Loss: EBL {In ML}: 15 Blood Products Given: N/A Drains Used: No Drains Post-Op Condition: Good Date of Surgery/Procedure: 05/30/17 Time of Surgery/Procedure: 01:00
[2017-05-30] MEDS: Cefepime IV 1 gm in Dextrose 1 GM/50 ML BAG IVPB SCH (18:00)
--- NOTE | 2017-05-30 18:46 | CP.PCM.PN ---
Subjective - Date & Time of Evaluation Date of Evaluation: 05/30/17 Time of Evaluation: 08:00 - Subjective Subjective: s/p angioplasty wound + ESBL gram neg merrem added Objective - Vital Signs/Intake and Output Vital Signs (last 24 hours): Temp Pulse Resp BP Pulse Ox 97.9 F 62 20 110/70 96 05/30/17 16:40 05/30/17 16:40 05/30/17 16:40 05/30/17 16:40 05/30/17 16:40 Intake and Output: 05/30/17 05/30/17 06:59 18:59 Intake Total 0 0 Balance 0 0 - Medications Medications: Current Medications Acetaminophen (Tylenol 325mg Tab) 650 mg PO Q6 PRN PRN Reason: Pain, Mild (1-3) Last Admin: 05/28/17 17:46 Dose: 650 mg Acetaminophen (Tylenol 325mg Tab) 650 mg PO Q6 PRN PRN Reason: Fever >100.4 F Aspirin (Ecotrin) 81 mg PO DAILY [facility] Last Admin: 05/30/17 17:10 Dose: 81 mg Brimonidine Tartrate (Alphagan 0.2% Opht) 0 ml OU Q12 [facility] Last Admin: 05/30/17 09:40 Dose: 1 drop Cinacalcet (Sensipar) 60 mg PO DAILY [facility] Last Admin: 05/30/17 09:41 Dose: Not Given Clopidogrel Bisulfate (Plavix) 75 mg PO DAILY [facility] Collagenase (Santyl) 0 gm EXT TID [facility] Last Admin: 05/30/17 18:05 Dose: 1 applic Epoetin Alonso (Procrit) 10,000 unit IV [facility] [place] Last Admin: 05/29/17 12:32 Dose: 10,000 unit Famotidine (Pepcid) 20 mg PO DAILY [facility] Last Admin: 05/30/17 09:40 Dose: Not Given Heparin Sodium (Porcine) (Heparin) 5,000 units SC Q8 [facility] Last Admin: 05/29/17 21:23 Dose: 5,000 units Home Med (Nateglinide) 60 mg PO DAILY [facility] Vancomycin/Sodium Chloride (Vancomycin 1 Gm/Ns 200 Ml) 1 gm in 200 mls @ 133 mls/hr IVPB MWF [facility] Stop: 06/03/17 09:01 Last Admin: 05/29/17 10:11 Dose: 133 mls/hr Meropenem 500 mg/ Sodium (Chloride) 100 mls @ 100 mls/hr IVPB Q12 [facility] Lopinavir/Ritonavir (Kaletra 200-50 Mg) 2 cap PO BID [facility] Last Admin: 05/30/17 18:00 Dose: 2 cap Magnesium Citrate (Citrate Of Mag) 300 ml PO DAILY [facility] Last Admin: 05/30/17 09:45 Dose: Not Given Metoprolol Tartrate (Lopressor) 12.5 mg PO BID [facility] Last Admin: 05/30/17 18:01 Dose: 12.5 mg Nystatin (Nystatin Oral Susp) 5 ml PO TID [facility] Last Admin: 05/30/17 18:03 Dose: 5 ml Ondansetron HCl (Zofran Inj) 4 mg IVP Q4 PRN PRN Reason: Nausea/Vomiting Pantoprazole Sodium (Protonix Ec Tab) 40 mg PO DAILY [facility] Last Admin: 05/30/17 09:41 Dose: Not Given Raltegravir (Isentress) 400 mg PO BID [facility] Last Admin: 05/30/17 18:02 Dose: 400 mg Sevelamer Carbonate (Renvela) 800 mg PO TID [facility] Last Admin: 05/30/17 18:01 Dose: 800 mg Sodium Hypochlorite (Dakins Solution 0.25%) 0 ml TOP DAILY [facility] Last Admin: 05/30/17 09:44 Dose: 1 applic Timolol Maleate (Timoptic 0.5% Oph Soln) 1 drop OS BID [facility] Last Admin: 05/30/17 18:05 Dose: 1 applic Tramadol HCl (Ultram) 25 mg PO TID PRN PRN Reason: Pain, severe (8-10) Last Admin: 05/29/17 10:38 Dose: 25 mg Trimethoprim/Sulfamethoxazole (Bactrim Ds Tab) 1 tab PO MWF [facility] Last Admin: 05/29/17 10:06 Dose: 1 tab - Labs Labs: 05/30/17 08:21 05/30/17 08:21 PT 11.6 SECONDS (9.7-12.2) 05/30/17 08:21 INR 1.0 05/30/17 08:21 APTT 32 SECONDS (21-34) 05/30/17 08:21 - Constitutional Appears: Non-toxic - Head Exam Head Exam: NORMOCEPHALIC - Eye Exam Eye Exam: PERRL - ENT Exam ENT Exam: Mucous Membranes Moist - Respiratory Exam Respiratory Exam: Decreased Breath Sounds - Cardiovascular Exam Cardiovascular Exam: REGULAR RHYTHM - GI/Abdominal Exam GI & Abdominal Exam: Distended, Soft - Rectal Exam Rectal Exam: Deferred Assessment and Plan (1) Foot ulcer, left Status: Acute (2) Bandemia Status: Acute - Assessment and Plan (Free Text) Plan: consider mri iv antibiotics adjusted may need debridement prognosis guarded
--- NOTE | 2017-05-30 18:55 | CP.PCM.PN ---
Subjective - Date & Time of Evaluation Date of Evaluation: 05/30/17 Time of Evaluation: 14:00 - Subjective Subjective: SEEN ON RENAL F/U HD WAS DONE EARLIER S/P L E ANGIOGRAM / PLAST Objective - Vital Signs/Intake and Output Vital Signs (last 24 hours): Temp Pulse Resp BP Pulse Ox 97.9 F 62 20 110/70 96 05/30/17 16:40 05/30/17 16:40 05/30/17 16:40 05/30/17 16:40 05/30/17 16:40 Intake and Output: 05/30/17 05/30/17 06:59 18:59 Intake Total 0 0 Balance 0 0 - Medications Medications: Current Medications Acetaminophen (Tylenol 325mg Tab) 650 mg PO Q6 PRN PRN Reason: Pain, Mild (1-3) Last Admin: 05/28/17 17:46 Dose: 650 mg Acetaminophen (Tylenol 325mg Tab) 650 mg PO Q6 PRN PRN Reason: Fever >100.4 F Aspirin (Ecotrin) 81 mg PO DAILY [facility] Last Admin: 05/30/17 17:10 Dose: 81 mg Brimonidine Tartrate (Alphagan 0.2% Opht) 0 ml OU Q12 [facility] Last Admin: 05/30/17 09:40 Dose: 1 drop Cinacalcet (Sensipar) 60 mg PO DAILY [facility] Last Admin: 05/30/17 09:41 Dose: Not Given Clopidogrel Bisulfate (Plavix) 75 mg PO DAILY [facility] Collagenase (Santyl) 0 gm EXT TID [facility] Last Admin: 05/30/17 18:05 Dose: 1 applic Epoetin Alonso (Procrit) 10,000 unit IV [facility] [place] Last Admin: 05/29/17 12:32 Dose: 10,000 unit Famotidine (Pepcid) 20 mg PO DAILY [facility] Last Admin: 05/30/17 09:40 Dose: Not Given Heparin Sodium (Porcine) (Heparin) 5,000 units SC Q8 [facility] Last Admin: 05/29/17 21:23 Dose: 5,000 units Home Med (Nateglinide) 60 mg PO DAILY [facility] Vancomycin/Sodium Chloride (Vancomycin 1 Gm/Ns 200 Ml) 1 gm in 200 mls @ 133 mls/hr IVPB [facility] [place] Stop: 06/03/17 09:01 Last Admin: 05/29/17 10:11 Dose: 133 mls/hr Meropenem 500 mg/ Sodium (Chloride) 100 mls @ 100 mls/hr IVPB Q12 [facility] Lopinavir/Ritonavir (Kaletra 200-50 Mg) 2 cap PO BID [facility] Last Admin: 05/30/17 18:00 Dose: 2 cap Magnesium Citrate (Citrate Of Mag) 300 ml PO DAILY [facility] Last Admin: 05/30/17 09:45 Dose: Not Given Metoprolol Tartrate (Lopressor) 12.5 mg PO BID [facility] Last Admin: 05/30/17 18:01 Dose: 12.5 mg Nystatin (Nystatin Oral Susp) 5 ml PO TID [facility] Last Admin: 05/30/17 18:03 Dose: 5 ml Ondansetron HCl (Zofran Inj) 4 mg IVP Q4 PRN PRN Reason: Nausea/Vomiting Pantoprazole Sodium (Protonix Ec Tab) 40 mg PO DAILY [facility] Last Admin: 05/30/17 09:41 Dose: Not Given Raltegravir (Isentress) 400 mg PO BID [facility] Last Admin: 05/30/17 18:02 Dose: 400 mg Sevelamer Carbonate (Renvela) 800 mg PO TID [facility] Last Admin: 05/30/17 18:01 Dose: 800 mg Sodium Hypochlorite (Dakins Solution 0.25%) 0 ml TOP DAILY [facility] Last Admin: 05/30/17 09:44 Dose: 1 applic Timolol Maleate (Timoptic 0.5% Ophth Soln) 1 drop OS BID [facility] Last Admin: 05/30/17 18:05 Dose: 1 applic Tramadol HCl (Ultram) 25 mg PO TID PRN PRN Reason: Pain, severe (8-10) Last Admin: 05/29/17 10:38 Dose: 25 mg Trimethoprim/Sulfamethoxazole (Bactrim Ds Tab) 1 tab PO MWF [facility] Last Admin: 05/29/17 10:06 Dose: 1 tab - Labs Labs: 05/30/17 08:21 05/30/17 08:21 PT 11.6 SECONDS (9.7-12.2) 05/30/17 08:21 INR 1.0 05/30/17 08:21 APTT 32 SECONDS (21-34) 05/30/17 08:21 Assessment and Plan - Assessment and Plan (Free Text) Assessment: ESRD ON HD T T S .. TO BE C/O ANEMIA OF CKD .. H/H STABLE MULTIPLE CO MORBIDITIES P : C/O CURRENT CARE C/O PRESENT MEDS
[2017-05-30] MEDS: Meropenem 500 MG in Dextrose 5% In Water 100 ML IVPB SCH (21:14)
[2017-05-31] MEDS: Tramadol 25 mg PO PRN ×2 (04:09→12:35)
--- NOTE | 2017-05-31 08:53 | VAS ---
DATE: 05/30/2017 PREOPERATIVE DIAGNOSIS: Gangrene of the left foot. POSTOPERATIVE DIAGNOSIS: Gangrene of the left foot. PROCEDURE CARRIED OUT: Aortofemoral angiogram via right groin with selective catheterization of the left femoral artery, balloon angioplasty, drug-coated balloon angioplasty, atherectomy and stenting of the left superficial femoral and popliteal artery, and atherectomy and balloon angioplasty of the anterior tibial artery. SURGEON: Aden Sinclair Jr., MD DIRECTOR BUSINESS SYSTEMS: None. ANESTHESIOLOGIST: Bridger Donovan CRNA ANESTHESIA: Local with sedation. INDICATIONS: The patient is a 57-year-old woman, on dialysis with diabetes and previous amputation of the contralateral side. OPERATIVE FINDINGS: 1. The renal arteries are not well visualized on the present exam. 2. There is an indwelling vena cava catheter for hemodialysis. FINDINGS: The aorta and iliac arteries are free of significant occlusive disease. Both common iliac, internal iliac and common femoral arteries were widely patent. Limited views were taken through the pelvis, particularly of the right side. The proximal portion of both superficial femoral arteries were widely patent. On the left side, the superficial femoral artery occluded and above Fermin's canal reconstituted behind the knee. Below this, there was 1-vessel runoff via the anterior tibial artery, which is the only major vessel, which extended into the foot. Subsequent films demonstrated complete improvement and flow through the superficial, popliteal and anterior tibial arteries with placement of the stents. Subsequent to the performance of the diagnostic arteriogram, a stiff-angled Glidewire was advanced over the aortic bifurcation, exchanged for an Amplatz wire and the catheter delivered to the mid portion of the superficial femoral artery. Using road-mapping technique, the lesion was grasped. An access was obtained into the anterior tibial artery. This was subsequently exchanged for an 0.014 wire on which we used atherectomy device. This was subsequently touch-up with a 4 and a 5 mm balloon with good cosmetic results, but due to the patient's condition and the long occlusion, we then applied a 5-mm [employer] stent distally and a Zilver stent more proximally with use of the drug-coated balloon distally. The anterior tibial artery was widely patent. No additional interventions were taken on this beyond the initial atherectomy and balloon angioplasty. Thus at the end of the procedure, we had a patent superficial, femoral, popliteal artery and wide open flow into the anterior tibial artery down to the foot. The catheter was then withdrawn and pressure was applied to the groin. So, operation carried out: 1. Aortofemoral angiogram via right groin with selected catheterization of the left femoral artery. 2. Pathway atherectomy of the superficial femoral, popliteal, and anterior tibial artery. Balloon angioplasty using a drug-coated balloon of the same vessels and then deployment of a [employer] and then [employer] stent measuring 5 and then more proximally a 6 mm stent in the left popliteal and superficial femoral artery. Pressure was then applied to the groin and a Perclose device deployed. Blood loss was 50 to 100 mL. Operation carried out as mentioned. Aden Sinclair Jr., MD
[2017-05-31 10:00] LABS: BASO % 0.6 % (0.0-2.0); EOS # 0.1 K/uL (0.0-0.7); EOS % 1.1 % (0.0-4.0); HEMATOCRIT 30.8 % (34.0-47.0); LYMPH # 0.7 K/uL (1.0-4.3); LYMPH % 9.9 % (20.0-40.0); MEAN CELL VOLUME 88.7 fL (81.0-99.0); MEAN CORPUSCULAR HGB CONC 31.6 g/dL (33.0-37.0); MEAN PLATELET VOLUME 8.3 fL (7.2-11.7); MONO # 0.5 K/uL (0.0-0.8); MONO % 7.5 % (0.0-10.0); NRBC % 0.1 % (0.0-2.0); PLATELET COUNT 216 K/uL (130-400); RED CELL DISTRIBUTION WIDTH 20.9 % (11.5-14.5); WHITE BLOOD COUNT 6.8 K/uL (4.8-10.8)
--- NOTE | 2017-05-31 10:07 | CP.PCM.PN ---
Subjective - Date & Time of Evaluation Date of Evaluation: 05/30/17 Time of Evaluation: 10:07 - Subjective Subjective: Foul-smelling discharge from the left heel noted. 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 Will be getting hemodialysis. Continue the current antibiotic treatment and will follow the patient Objective - Vital Signs/Intake and Output Vital Signs (last 24 hours): Temp Pulse Resp BP Pulse Ox 97.9 F 68 18 110/54 L 97 05/31/17 09:40 05/31/17 09:40 05/31/17 09:40 05/31/17 09:55 05/31/17 09:40 Intake and Output: 05/31/17 05/31/17 06:59 18:59 Intake Total 120 Balance 120 - Medications Medications: Current Medications Acetaminophen (Tylenol 325mg Tab) 650 mg PO Q6 PRN PRN Reason: Pain, Mild (1-3) Last Admin: 05/28/17 17:46 Dose: 650 mg Acetaminophen (Tylenol 325mg Tab) 650 mg PO Q6 PRN PRN Reason: Fever >100.4 F Aspirin (Ecotrin) 81 mg PO DAILY [facility] Last Admin: 05/30/17 17:10 Dose: 81 mg Brimonidine Tartrate (Alphagan 0.2% Opht) 0 ml OU Q12 [facility] Last Admin: 05/30/17 21:11 Dose: 1 drop Cinacalcet (Sensipar) 60 mg PO DAILY [facility] Last Admin: 05/30/17 09:41 Dose: Not Given Clopidogrel Bisulfate (Plavix) 75 mg PO DAILY [facility] Collagenase (Santyl) 0 gm EXT TID [facility] Last Admin: 05/30/17 18:00 Dose: Not Given Epoetin Alonso (Procrit) 10,000 unit IV MWF [facility] Last Admin: 05/29/17 12:32 Dose: 10,000 unit Famotidine (Pepcid) 20 mg PO DAILY [facility] Last Admin: 05/30/17 09:40 Dose: Not Given Heparin Sodium (Porcine) (Heparin) 5,000 units SC Q8 [facility] Last Admin: 05/31/17 05:04 Dose: 5,000 units Heparin Sodium (Porcine) (Heparin) 2,000 units IVP MWF [facility] Stop: 06/05/17 09:01 Heparin Sodium (Porcine) (Heparin) 6,800 units IVP MWF [facility] Stop: 06/05/17 09:01 Home Med (Nateglinide) 60 mg PO DAILY [facility] Vancomycin/Sodium Chloride (Vancomycin 1 Gm/Ns 200 Ml) 1 gm in 200 mls @ 133 mls/hr IVPB MWF [facility] Stop: 06/03/17 09:01 Last Admin: 05/29/17 10:11 Dose: 133 mls/hr Meropenem 500 mg/ Dextrose 100 mls @ 100 mls/hr IVPB Q12 [facility] Last Admin: 05/30/17 21:14 Dose: 100 mls/hr Lopinavir/Ritonavir (Kaletra 200-50 Mg) 2 cap PO BID [facility] Last Admin: 05/30/17 18:00 Dose: 2 cap Magnesium Citrate (Citrate Of Mag) 300 ml PO DAILY [facility] Last Admin: 05/30/17 09:45 Dose: Not Given Metoprolol Tartrate (Lopressor) 12.5 mg PO BID [facility] Last Admin: 05/30/17 18:01 Dose: 12.5 mg Nystatin (Nystatin Oral Susp) 5 ml PO TID [facility] Last Admin: 05/30/17 18:03 Dose: 5 ml Ondansetron HCl (Zofran Inj) 4 mg IVP Q4 PRN PRN Reason: Nausea/Vomiting Pantoprazole Sodium (Protonix Ec Tab) 40 mg PO DAILY [facility] Last Admin: 05/30/17 09:41 Dose: Not Given Raltegravir (Isentress) 400 mg PO BID [facility] Last Admin: 05/30/17 18:02 Dose: 400 mg Sevelamer Carbonate (Renvela) 800 mg PO TID [facility] Last Admin: 05/30/17 18:01 Dose: 800 mg Sodium Hypochlorite (Dakins Solution 0.25%) 0 ml TOP DAILY [facility] Last Admin: 05/30/17 09:44 Dose: 1 applic Timolol Maleate (Timoptic 0.5% Ophth Soln) 1 drop OS BID [facility] Last Admin: 05/30/17 18:05 Dose: 1 applic Tramadol HCl (Ultram) 25 mg PO TID PRN PRN Reason: Pain, severe (8-10) Last Admin: 05/31/17 04:09 Dose: 25 mg Trimethoprim/Sulfamethoxazole (Bactrim Ds Tab) 1 tab PO [facility] Last Admin: 05/29/17 10:06 Dose: 1 tab - Labs Labs: 05/31/17 09:56 05/30/17 08:21 PT 11.6 SECONDS (9.7-12.2) 05/30/17 08:21 INR 1.0 05/30/17 08:21 APTT 32 SECONDS (21-34) 05/30/17 08:21
[2017-05-31 10:12] LABS: POTASSIUM 5.9 mmol/L (3.6-5.2)
[2017-05-31 10:14] LABS: ALB/GLOB RATIO 0.7 (1.0-2.1); BILIRUBIN,TOTAL 0.9 mg/dL (0.2-1.3); TOTAL PROTEIN 7.8 g/dL (6.3-8.3)
[2017-05-31 10:29] LABS: EOSINOPHIL 2 % (0-4); NEUTROPHIL 78 % (50-75); TOTAL CELLS COUNTED 100
[2017-05-31] MEDS: Pantoprazole 40 mg EC Tab PO SCH (10:47)
[2017-05-31] MEDS: Brimonidine 0.2% Opth Sol (5ml) OU SCH ×2 (10:54→21:33)
[2017-05-31] MEDS: Tmp-Smz 800 mg-160 mg DS Tab PO SCH (10:54)
[2017-05-31] MEDS: Magnesium Citrate Oral SOL (300 ml) PO SCH (10:55)
[2017-05-31] MEDS: Dakin's Topical 0.25%-Half Strength (480 ml) TOP SCH (10:56)
[2017-05-31] MEDS: Vancomycin 1 gm/NS 200 ml 1 GM/200 ML BAG IVPB SCH (10:59)
[2017-05-31] MEDS: Collagenase 250 Units/gm Ointment(30 gm) EXT SCH ×4 (10:59→18:17)
[2017-05-31] MEDS: Meropenem 500 MG in Dextrose 5% In Water 100 ML IVPB SCH ×2 (11:00→21:29)
[2017-05-31] MEDS: Lopinavir/Ritonavir Tab PO SCH ×2 (11:00→18:15)
[2017-05-31] MEDS: Nystatin 100,000 Units/ml Oral Susp 5 ml UD PO SCH ×4 (11:00→18:15)
[2017-05-31] MEDS: Epoetin Alfa 10,000 unit/ml Dialysis IV SCH (12:02)
--- NOTE | 2017-05-31 13:07 | CP.PCM.PN ---
Subjective - Date & Time of Evaluation Date of Evaluation: 05/31/17 Time of Evaluation: 13:04 - Subjective Subjective: Pt seen at bedside for f/u left heel non healing ulcer. Bone scan is negative for OM. Pt is s/p stent left leg. Discussed case with Dr. Lopez and Dr. Sinclair. Feel at present to treat with local wound care and IV abx and send pt to [facility]. Pt is still at high risk for BK or AK amp. Objective - Vital Signs/Intake and Output Vital Signs (last 24 hours): Temp Pulse Resp BP Pulse Ox 98 F 78 20 89/52 L 96 05/31/17 12:40 05/31/17 12:40 05/31/17 12:40 05/31/17 12:40 05/31/17 12:40 Intake and Output: 05/31/17 05/31/17 06:59 18:59 Intake Total 120 Balance 120 - Medications Medications: Current Medications Acetaminophen (Tylenol 325mg Tab) 650 mg PO Q6 PRN PRN Reason: Pain, Mild (1-3) Last Admin: 05/31/17 10:50 Dose: 650 mg Acetaminophen (Tylenol 325mg Tab) 650 mg PO Q6 PRN PRN Reason: Fever >100.4 F Aspirin (Ecotrin) 81 mg PO DAILY [facility] Last Admin: 05/31/17 11:01 Dose: Not Given Brimonidine Tartrate (Alphagan 0.2% Opht) 0 ml OU Q12 [facility] Last Admin: 05/31/17 10:54 Dose: Not Given Cinacalcet (Sensipar) 60 mg PO DAILY [facility] Last Admin: 05/31/17 10:59 Dose: Not Given Clopidogrel Bisulfate (Plavix) 75 mg PO DAILY [facility] Last Admin: 05/31/17 11:00 Dose: Not Given Collagenase (Santyl) 0 gm EXT TID [facility] Last Admin: 05/31/17 10:59 Dose: Not Given Epoetin Alonso (Procrit) 10,000 unit IV MWF [facility] Last Admin: 05/31/17 12:02 Dose: 10,000 unit Famotidine (Pepcid) 20 mg PO DAILY [facility] Last Admin: 05/31/17 10:47 Dose: 20 mg Heparin Sodium (Porcine) (Heparin) 5,000 units SC Q8 [facility] Last Admin: 05/31/17 05:04 Dose: 5,000 units Heparin Sodium (Porcine) (Heparin) 2,000 units IVP [facility] Stop: 06/05/17 09:01 Last Admin: 05/31/17 10:31 Dose: 2,000 units Heparin Sodium (Porcine) (Heparin) 6,800 units IVP [facility] Stop: 06/05/17 09:01 Last Admin: 05/31/17 12:47 Dose: Not Given Home Med (Nateglinide) 60 mg PO DAILY [facility] Vancomycin/Sodium Chloride (Vancomycin 1 Gm/Ns 200 Ml) 1 gm in 200 mls @ 133 mls/hr IVPB [facility] Stop: 06/03/17 09:01 Last Admin: 05/31/17 10:59 Dose: Not Given Meropenem 500 mg/ Dextrose 100 mls @ 100 mls/hr IVPB Q12 [facility] Last Admin: 05/31/17 11:00 Dose: Not Given Lopinavir/Ritonavir (Kaletra 200-50 Mg) 2 cap PO BID [facility] Last Admin: 05/31/17 11:00 Dose: Not Given Magnesium Citrate (Citrate Of Mag) 300 ml PO DAILY [facility] Last Admin: 05/31/17 10:55 Dose: Not Given Metoprolol Tartrate (Lopressor) 12.5 mg PO BID [facility] Last Admin: 05/31/17 11:00 Dose: Not Given Nystatin (Nystatin Oral Susp) 5 ml PO TID [facility] Last Admin: 05/31/17 11:00 Dose: Not Given Ondansetron HCl (Zofran Inj) 4 mg IVP Q4 PRN PRN Reason: Nausea/Vomiting Last Admin: 05/31/17 10:58 Dose: 4 mg Pantoprazole Sodium (Protonix Ec Tab) 40 mg PO DAILY [facility] Last Admin: 05/31/17 10:47 Dose: 40 mg Raltegravir (Isentress) 400 mg PO BID [facility] Last Admin: 05/31/17 11:00 Dose: Not Given Sevelamer Carbonate (Renvela) 800 mg PO TID [facility] Last Admin: 05/31/17 11:00 Dose: Not Given Sodium Hypochlorite (Dakins Solution 0.25%) 0 ml TOP DAILY [facility] Last Admin: 05/31/17 10:56 Dose: Not Given Timolol Maleate (Timoptic 0.5% [facility] Soln) 1 drop OS BID [facility] Last Admin: 05/31/17 10:59 Dose: Not Given Tramadol HCl (Ultram) 25 mg PO TID PRN PRN Reason: Pain, severe (8-10) Last Admin: 05/31/17 12:35 Dose: 25 mg Trimethoprim/Sulfamethoxazole (Bactrim Ds Tab) 1 tab PO [facility] Last Admin: 05/31/17 10:54 Dose: Not Given - Labs Labs: 05/31/17 09:56 05/31/17 09:56 PT 11.6 SECONDS (9.7-12.2) 05/30/17 08:21 INR 1.0 05/30/17 08:21 APTT 32 SECONDS (21-34) 05/30/17 08:21
--- NOTE | 2017-05-31 16:32 | CP.PCM.PN ---
Subjective - Date & Time of Evaluation Date of Evaluation: 05/31/17 Time of Evaluation: 08:00 - Subjective Subjective: discussed on rounds iv rx in progress will treat for 6-8 weeks Objective - Vital Signs/Intake and Output Vital Signs (last 24 hours): Temp Pulse Resp BP Pulse Ox 98 F 78 20 89/52 L 96 05/31/17 12:40 05/31/17 12:40 05/31/17 12:40 05/31/17 12:40 05/31/17 12:40 Intake and Output: 05/31/17 05/31/17 06:59 18:59 Intake Total 120 Balance 120 - Medications Medications: Current Medications Acetaminophen (Tylenol 325mg Tab) 650 mg PO Q6 PRN PRN Reason: Pain, Mild (1-3) Last Admin: 05/31/17 10:50 Dose: 650 mg Acetaminophen (Tylenol 325mg Tab) 650 mg PO Q6 PRN PRN Reason: Fever >100.4 F Aspirin (Ecotrin) 81 mg PO DAILY [facility] Last Admin: 05/31/17 11:01 Dose: Not Given Brimonidine Tartrate (Alphagan 0.2% Opht) 0 ml OU Q12 [facility] Last Admin: 05/31/17 10:54 Dose: Not Given Cinacalcet (Sensipar) 60 mg PO DAILY [facility] Last Admin: 05/31/17 10:59 Dose: Not Given Clopidogrel Bisulfate (Plavix) 75 mg PO DAILY [facility] Last Admin: 05/31/17 11:00 Dose: Not Given Collagenase (Santyl) 0 gm EXT TID [facility] Last Admin: 05/31/17 13:59 Dose: Not Given Epoetin Alonso (Procrit) 10,000 unit IV [facility] [place] Last Admin: 05/31/17 12:02 Dose: 10,000 unit Famotidine (Pepcid) 20 mg PO DAILY [facility] Last Admin: 05/31/17 10:47 Dose: 20 mg Heparin Sodium (Porcine) (Heparin) 5,000 units SC Q8 [facility] Last Admin: 05/31/17 13:57 Dose: Not Given Heparin Sodium (Porcine) (Heparin) 2,000 units IVP [facility] [place] Stop: 06/05/17 09:01 Last Admin: 05/31/17 10:31 Dose: 2,000 units Heparin Sodium (Porcine) (Heparin) 6,800 units IVP [facility] [place] Stop: 06/05/17 09:01 Last Admin: 05/31/17 13:14 Dose: 6,800 units Home Med (Nateglinide) 60 mg PO DAILY [facility] Vancomycin/Sodium Chloride (Vancomycin 1 Gm/Ns 200 Ml) 1 gm in 200 mls @ 133 mls/hr IVPB MWF [facility] Stop: 06/03/17 09:01 Last Admin: 05/31/17 10:59 Dose: Not Given Meropenem 500 mg/ Dextrose 100 mls @ 100 mls/hr IVPB Q12 [facility] Last Admin: 05/31/17 11:00 Dose: Not Given Lopinavir/Ritonavir (Kaletra 200-50 Mg) 2 cap PO BID [facility] Last Admin: 05/31/17 11:00 Dose: Not Given Magnesium Citrate (Citrate Of Mag) 300 ml PO DAILY [facility] Last Admin: 05/31/17 10:55 Dose: Not Given Metoprolol Tartrate (Lopressor) 12.5 mg PO BID [facility] Last Admin: 05/31/17 11:00 Dose: Not Given Nystatin (Nystatin Oral Susp) 5 ml PO TID [facility] Last Admin: 05/31/17 14:01 Dose: Not Given Ondansetron HCl (Zofran Inj) 4 mg IVP Q4 PRN PRN Reason: Nausea/Vomiting Last Admin: 05/31/17 10:58 Dose: 4 mg Pantoprazole Sodium (Protonix Ec Tab) 40 mg PO DAILY [facility] Last Admin: 05/31/17 10:47 Dose: 40 mg Raltegravir (Isentress) 400 mg PO BID [facility] Last Admin: 05/31/17 11:00 Dose: Not Given Sevelamer Carbonate (Renvela) 800 mg PO TID [facility] Last Admin: 05/31/17 13:52 Dose: 800 mg Sodium Hypochlorite (Dakins Solution 0.25%) 0 ml TOP DAILY [facility] Last Admin: 05/31/17 10:56 Dose: Not Given Timolol Maleate (Timoptic 0.5% Ophth Soln) 1 drop OS BID [facility] Last Admin: 05/31/17 10:59 Dose: Not Given Tramadol HCl (Ultram) 25 mg PO TID PRN PRN Reason: Pain, severe (8-10) Last Admin: 05/31/17 12:35 Dose: 25 mg Trimethoprim/Sulfamethoxazole (Bactrim Ds Tab) 1 tab PO MWF [facility] Last Admin: 05/31/17 10:54 Dose: Not Given - Labs Labs: 05/31/17 09:56 05/31/17 09:56 PT 11.6 SECONDS (9.7-12.2) 05/30/17 08:21 INR 1.0 05/30/17 08:21 APTT 32 SECONDS (21-34) 05/30/17 08:21 - Constitutional Appears: Non-toxic, Chronically Ill - Head Exam Head Exam: NORMOCEPHALIC - Eye Exam Eye Exam: PERRL - ENT Exam ENT Exam: Mucous Membranes Dry - Neck Exam Neck Exam: absent: Lymphadenopathy - Respiratory Exam Respiratory Exam: Decreased Breath Sounds - Cardiovascular Exam Cardiovascular Exam: REGULAR RHYTHM - GI/Abdominal Exam GI & Abdominal Exam: Distended, Soft - Rectal Exam Rectal Exam: Deferred - Exam Exam: NORMAL INSPECTION - Extremities Exam Extremities Exam: Pedal Edema, Tenderness - Back Exam Back Exam: absent: CVA tenderness (L), CVA tenderness (R) - Neurological Exam Neurological Exam: Alert, Awake Assessment and Plan (1) Foot ulcer, left Status: Acute (2) Bandemia Status: Acute - Assessment and Plan (Free Text) Assessment: rx as om for 6-8 weeks s/p angioplasty
--- NOTE | 2017-05-31 17:54 | CP.PCM.PN ---
Subjective - Date & Time of Evaluation Date of Evaluation: 05/31/17 Time of Evaluation: 07:00 - Subjective Subjective: VASCULAR SURGERY CONSULT NOTE FOR DR. BRIAN Patient seen and examined at bedside. She is doing well and her only complaint is that she is "sleepy". Objective - Vital Signs/Intake and Output Vital Signs (last 24 hours): Temp Pulse Resp BP Pulse Ox 98 F 88 20 100/63 95 05/31/17 16:00 05/31/17 16:00 05/31/17 16:00 05/31/17 16:00 05/31/17 16:00 Intake and Output: 05/31/17 05/31/17 06:59 18:59 Intake Total 120 100 Balance 120 100 - Medications Medications: Current Medications Acetaminophen (Tylenol 325mg Tab) 650 mg PO Q6 PRN PRN Reason: Pain, Mild (1-3) Last Admin: 05/31/17 10:50 Dose: 650 mg Acetaminophen (Tylenol 325mg Tab) 650 mg PO Q6 PRN PRN Reason: Fever >100.4 F Aspirin (Ecotrin) 81 mg PO DAILY [facility] Last Admin: 05/31/17 11:01 Dose: Not Given Brimonidine Tartrate (Alphagan 0.2% Opht) 0 ml OU Q12 [facility] Last Admin: 05/31/17 10:54 Dose: Not Given Cinacalcet (Sensipar) 60 mg PO DAILY [facility] Last Admin: 05/31/17 10:59 Dose: Not Given Clopidogrel Bisulfate (Plavix) 75 mg PO DAILY [facility] Last Admin: 05/31/17 11:00 Dose: Not Given Collagenase (Santyl) 0 gm EXT TID [facility] Last Admin: 05/31/17 13:59 Dose: Not Given Epoetin Alonso (Procrit) 10,000 unit IV [facility] Last Admin: 05/31/17 12:02 Dose: 10,000 unit Famotidine (Pepcid) 20 mg PO DAILY [facility] Last Admin: 05/31/17 10:47 Dose: 20 mg Heparin Sodium (Porcine) (Heparin) 5,000 units SC Q8 [facility] Last Admin: 05/31/17 13:57 Dose: Not Given Heparin Sodium (Porcine) (Heparin) 2,000 units IVP [facility] Stop: 06/05/17 09:01 Last Admin: 05/31/17 10:31 Dose: 2,000 units Heparin Sodium (Porcine) (Heparin) 6,800 units IVP [facility] Stop: 06/05/17 09:01 Last Admin: 05/31/17 13:14 Dose: 6,800 units Home Med (Nateglinide) 60 mg PO DAILY [facility] Vancomycin/Sodium Chloride (Vancomycin 1 Gm/Ns 200 Ml) 1 gm in 200 mls @ 133 mls[facility] Stop: 06/03/17 09:01 Last Admin: 05/31/17 10:59 Dose: Not Given Meropenem 500 mg/ Dextrose 100 mls @ 100 mls/hr IVPB Q12 [facility] Last Admin: 05/31/17 11:00 Dose: Not Given Lopinavir/Ritonavir (Kaletra 200-50 Mg) 2 cap PO BID [facility] Last Admin: 05/31/17 11:00 Dose: Not Given Magnesium Citrate (Citrate Of Mag) 300 ml PO DAILY [facility] Last Admin: 05/31/17 10:55 Dose: Not Given Metoprolol Tartrate (Lopressor) 12.5 mg PO BID [facility] Last Admin: 05/31/17 11:00 Dose: Not Given Nystatin (Nystatin Oral Susp) 5 ml PO TID [facility] Last Admin: 05/31/17 14:01 Dose: Not Given Ondansetron HCl (Zofran Inj) 4 mg IVP Q4 PRN PRN Reason: Nausea/Vomiting Last Admin: 05/31/17 10:58 Dose: 4 mg Pantoprazole Sodium (Protonix Ec Tab) 40 mg PO DAILY [facility] Last Admin: 05/31/17 10:47 Dose: 40 mg Raltegravir (Isentress) 400 mg PO BID [facility] Last Admin: 05/31/17 11:00 Dose: Not Given Sevelamer Carbonate (Renvela) 800 mg PO TID [facility] Last Admin: 05/31/17 13:52 Dose: 800 mg Sodium Hypochlorite (Dakins Solution 0.25%) 0 ml TOP DAILY [facility] Last Admin: 05/31/17 10:56 Dose: Not Given Timolol Maleate (Timoptic 0.5% Ophth Soln) 1 drop OS BID [facility] Last Admin: 05/31/17 10:59 Dose: Not Given Tramadol HCl (Ultram) 25 mg PO TID PRN PRN Reason: Pain, severe (8-10) Last Admin: 05/31/17 12:35 Dose: 25 mg Trimethoprim/Sulfamethoxazole (Bactrim Ds Tab) 1 tab PO MWF [facility] Last Admin: 05/31/17 10:54 Dose: Not Given - Labs Labs: 05/31/17 09:56 05/31/17 09:56 PT 11.6 SECONDS (9.7-12.2) 05/30/17 08:21 INR 1.0 05/30/17 08:21 APTT 32 SECONDS (21-34) 05/30/17 08:21 - Constitutional Appears: Non-toxic, No Acute Distress, Chronically Ill - Respiratory Exam Respiratory Exam: NORMAL BREATHING PATTERN. absent: Respiratory Distress - Cardiovascular Exam Cardiovascular Exam: +S1, +S2 - Extremities Exam Additional comments: Left foot warm, dressing clean/dry/intact on foot Pressure dressing intact R groin: clean/dry/intact, no edema, no hematoma - Neurological Exam Neurological Exam: Alert, Awake - Psychiatric Exam Psychiatric exam: Normal Affect, Normal Mood - Skin Skin Exam: Dry, Normal Color Assessment and Plan - Assessment and Plan (Free Text) Assessment: 57 year old female with past medical history of DM, ESRD, HIV, HTN with a chronic non healing left heel ulcer s/p angio with balloon angioplasty, pathway arthrectomy, stent placement POD#1 - CTA: left SFA stenosis, SFA occluded distally with no definite reconstitution , popliteal artery occluded - Dressing changes per podiatry - May resume Heparin - Iv Abx per ID Will discuss plan with Dr. Yahir Martinez PGY-3
--- NOTE | 2017-05-31 18:49 | CP.PCM.PN ---
Subjective - Date & Time of Evaluation Date of Evaluation: 05/31/17 Time of Evaluation: 14:00 - Subjective Subjective: SEEN ON RENAL F/U FEELS IMPROVED .. ALL PREVIOUS EMR REVIEWED HAD HD TODAY .. TOLERATED WELL .. NO UF BP WAS LOW Objective - Vital Signs/Intake and Output Vital Signs (last 24 hours): Temp Pulse Resp BP Pulse Ox 98 F 88 20 100/63 95 05/31/17 16:00 05/31/17 16:00 05/31/17 16:00 05/31/17 16:00 05/31/17 16:00 Intake and Output: 05/31/17 05/31/17 06:59 18:59 Intake Total 120 100 Balance 120 100 - Medications Medications: Current Medications Acetaminophen (Tylenol 325mg Tab) 650 mg PO Q6 PRN PRN Reason: Pain, Mild (1-3) Last Admin: 05/31/17 10:50 Dose: 650 mg Acetaminophen (Tylenol 325mg Tab) 650 mg PO Q6 PRN PRN Reason: Fever >100.4 F Aspirin (Ecotrin) 81 mg PO DAILY [facility] Last Admin: 05/31/17 11:01 Dose: Not Given Brimonidine Tartrate (Alphagan 0.2% Opht) 0 ml OU Q12 [facility] Last Admin: 05/31/17 10:54 Dose: Not Given Cinacalcet (Sensipar) 60 mg PO DAILY [facility] Last Admin: 05/31/17 10:59 Dose: Not Given Clopidogrel Bisulfate (Plavix) 75 mg PO DAILY [facility] Last Admin: 05/31/17 11:00 Dose: Not Given Collagenase (Santyl) 0 gm EXT TID [facility] Last Admin: 05/31/17 18:17 Dose: 1 applic Epoetin Alonso (Procrit) 10,000 unit IV [facility] Last Admin: 05/31/17 12:02 Dose: 10,000 unit Famotidine (Pepcid) 20 mg PO DAILY [facility] Last Admin: 05/31/17 10:47 Dose: 20 mg Heparin Sodium (Porcine) (Heparin) 5,000 units SC Q8 [facility] Last Admin: 05/31/17 13:57 Dose: Not Given Heparin Sodium (Porcine) (Heparin) 2,000 units IVP [facility] Stop: 06/05/17 09:01 Last Admin: 05/31/17 10:31 Dose: 2,000 units Heparin Sodium (Porcine) (Heparin) 6,800 units IVP MWF [facility] Stop: 06/05/17 09:01 Last Admin: 05/31/17 13:14 Dose: 6,800 units Home Med (Nateglinide) 60 mg PO DAILY [facility] Vancomycin/Sodium Chloride (Vancomycin 1 Gm/Ns 200 Ml) 1 gm in 200 mls @ 133 mls/hr IVPB MWF [facility] Stop: 06/03/17 09:01 Last Admin: 05/31/17 10:59 Dose: Not Given Meropenem 500 mg/ Dextrose 100 mls @ 100 mls/hr IVPB Q12 [facility] Last Admin: 05/31/17 11:00 Dose: Not Given Lopinavir/Ritonavir (Kaletra 200-50 Mg) 2 cap PO BID [facility] Last Admin: 05/31/17 18:15 Dose: 2 cap Magnesium Citrate (Citrate Of Mag) 300 ml PO DAILY [facility] Last Admin: 05/31/17 10:55 Dose: Not Given Metoprolol Tartrate (Lopressor) 12.5 mg PO BID [facility] Last Admin: 05/31/17 18:25 Dose: Not Given Nystatin (Nystatin Oral Susp) 5 ml PO TID [facility] Last Admin: 05/31/17 18:15 Dose: 5 ml Ondansetron HCl (Zofran Inj) 4 mg IVP Q4 PRN PRN Reason: Nausea/Vomiting Last Admin: 05/31/17 10:58 Dose: 4 mg Pantoprazole Sodium (Protonix Ec Tab) 40 mg PO DAILY [facility] Last Admin: 05/31/17 10:47 Dose: 40 mg Raltegravir (Isentress) 400 mg PO BID [facility] Last Admin: 05/31/17 18:15 Dose: 400 mg Sevelamer Carbonate (Renvela) 800 mg PO TID [facility] Last Admin: 05/31/17 18:15 Dose: 800 mg Sodium Hypochlorite (Dakins Solution 0.25%) 0 ml TOP DAILY [facility] Last Admin: 05/31/17 10:56 Dose: Not Given Timolol Maleate (Timoptic 0.5% Ophth Soln) 1 drop OS BID [facility] Last Admin: 05/31/17 18:24 Dose: 1 applic Tramadol HCl (Ultram) 25 mg PO TID PRN PRN Reason: Pain, severe (8-10) Last Admin: 05/31/17 12:35 Dose: 25 mg Trimethoprim/Sulfamethoxazole (Bactrim Ds Tab) 1 tab PO MWF [facility] Last Admin: 05/31/17 10:54 Dose: Not Given - Labs Labs: 05/31/17 09:56 05/31/17 09:56 PT 11.6 SECONDS (9.7-12.2) 05/30/17 08:21 INR 1.0 05/30/17 08:21 APTT 32 SECONDS (21-34) 05/30/17 08:21 Assessment and Plan - Assessment and Plan (Free Text) Assessment: ESRD ON HD M W F ANEMIA OF CKD .. H/H STABLE SEVERE PVD .. S/P ANGIOGRAM / PLASTY P : C/O CURRENT CARE FOR JOO .. I PREFERE PT IS SENT TO [facility] ,, I GO THERE AND THEY HAVE HD WELL [facility] ,, WILL D/W SW
[2017-06-01] MEDS: Meropenem 500 MG in Dextrose 5% In Water 100 ML IVPB SCH ×2 (09:52→21:43)
[2017-06-01] MEDS: Nystatin 100,000 Units/ml Oral Susp 5 ml UD PO SCH ×3 (09:53→17:40)
[2017-06-01] MEDS: Lopinavir/Ritonavir Tab PO SCH ×2 (09:55→17:33)
[2017-06-01] MEDS: Pantoprazole 40 mg EC Tab PO SCH (09:55)
[2017-06-01] MEDS: Magnesium Citrate Oral SOL (300 ml) PO SCH (09:56)
[2017-06-01] MEDS: Collagenase 250 Units/gm Ointment(30 gm) EXT SCH ×3 (09:58→17:39)
[2017-06-01] MEDS: Dakin's Topical 0.25%-Half Strength (480 ml) TOP SCH (09:59)
[2017-06-01] MEDS: Brimonidine 0.2% Opth Sol (5ml) OU SCH ×2 (09:59→21:44)
[2017-06-01] MEDS: Tramadol 25 mg PO PRN (10:03)
--- NOTE | 2017-06-01 13:30 | CP.PCM.PN ---
Subjective - Date & Time of Evaluation Date of Evaluation: 06/01/17 Time of Evaluation: 13:26 - Subjective Subjective: 57 y/o female seen and evaluated at bedside. Patient appeared to be resting comfortably in her bed in [facility]. Patient is AAOx3 and denies of any acute overnight events. Patient denies of any recent F/N/V/C/shortness of breath/ chest pain/calf pain/headache/diarrhea. Patient denies of any other pedal complains at this time. Objective - Vital Signs/Intake and Output Vital Signs (last 24 hours): Temp Pulse Resp BP Pulse Ox 99.1 F 67 20 106/69 97 06/01/17 08:00 06/01/17 08:00 06/01/17 08:00 06/01/17 08:00 06/01/17 08:00 Intake and Output: 06/01/17 06/01/17 06:59 18:59 Intake Total 430 Balance 430 - Medications Medications: Current Medications Acetaminophen (Tylenol 325mg Tab) 650 mg PO Q6 PRN PRN Reason: Pain, Mild (1-3) Last Admin: 05/31/17 10:50 Dose: 650 mg Acetaminophen (Tylenol 325mg Tab) 650 mg PO Q6 PRN PRN Reason: Fever >100.4 F Aspirin (Ecotrin) 81 mg PO DAILY [facility] Last Admin: 06/01/17 09:54 Dose: 81 mg Brimonidine Tartrate (Alphagan 0.2% Opht) 0 ml OU Q12 [facility] Last Admin: 06/01/17 09:59 Dose: 1 drop Cinacalcet (Sensipar) 60 mg PO DAILY [facility] Last Admin: 06/01/17 09:53 Dose: 60 mg Clopidogrel Bisulfate (Plavix) 75 mg PO DAILY [facility] Last Admin: 06/01/17 09:54 Dose: 75 mg Collagenase (Santyl) 0 gm EXT TID [facility] Last Admin: 06/01/17 09:58 Dose: 1 applic Epoetin Alonso (Procrit) 10,000 unit IV [facility] [place] Last Admin: 05/31/17 12:02 Dose: 10,000 unit Famotidine (Pepcid) 20 mg PO DAILY [facility] Last Admin: 06/01/17 09:53 Dose: 20 mg Heparin Sodium (Porcine) (Heparin) 2,000 units IVP [facility] [place] Stop: 06/05/17 09:01 Last Admin: 05/31/17 10:31 Dose: 2,000 units Heparin Sodium (Porcine) (Heparin) 6,800 units IVP [facility] [place] Stop: 06/05/17 09:01 Last Admin: 05/31/17 13:14 Dose: 6,800 units Heparin Sodium (Porcine) (Heparin) 5,000 units SC Q12 [facility] Last Admin: 06/01/17 10:17 Dose: Not Given Home Med (Nateglinide) 60 mg PO DAILY [facility] Vancomycin/Sodium Chloride (Vancomycin 1 Gm/Ns 200 Ml) 1 gm in 200 mls @ 133 mls/hr IVPB [facility] [place] Stop: 06/03/17 09:01 Last Admin: 05/31/17 10:59 Dose: Not Given Meropenem 500 mg/ Dextrose 100 mls @ 100 mls/hr IVPB Q12 [facility] Last Admin: 06/01/17 09:52 Dose: 100 mls/hr Lopinavir/Ritonavir (Kaletra 200-50 Mg) 2 cap PO BID [facility] Last Admin: 06/01/17 09:55 Dose: 2 cap Magnesium Citrate (Citrate Of Mag) 300 ml PO DAILY [facility] Last Admin: 06/01/17 09:56 Dose: 300 ml Metoprolol Tartrate (Lopressor) 12.5 mg PO BID [facility] Last Admin: 06/01/17 09:54 Dose: 12.5 mg Nystatin (Nystatin Oral Susp) 5 ml PO TID [facility] Last Admin: 06/01/17 09:53 Dose: 5 ml Ondansetron HCl (Zofran Inj) 4 mg IVP Q4 PRN PRN Reason: Nausea/Vomiting Last Admin: 05/31/17 10:58 Dose: 4 mg Pantoprazole Sodium (Protonix Ec Tab) 40 mg PO DAILY [facility] Last Admin: 06/01/17 09:55 Dose: 40 mg Raltegravir (Isentress) 400 mg PO BID [facility] Last Admin: 06/01/17 09:55 Dose: 400 mg Sevelamer Carbonate (Renvela) 800 mg PO TID [facility] Last Admin: 06/01/17 10:16 Dose: 800 mg Sodium Hypochlorite (Dakins Solution 0.25%) 0 ml TOP DAILY [facility] Last Admin: 06/01/17 09:59 Dose: 1 applic Timolol Maleate (Timoptic 0.5% Ophth Soln) 1 drop OS BID [facility] Last Admin: 06/01/17 10:00 Dose: 1 applic Tramadol HCl (Ultram) 25 mg PO TID PRN PRN Reason: Pain, severe (8-10) Last Admin: 06/01/17 10:03 Dose: 25 mg Trimethoprim/Sulfamethoxazole (Bactrim Ds Tab) 1 tab PO MWF [facility] Last Admin: 05/31/17 10:54 Dose: Not Given - Labs Labs: 05/31/17 09:56 05/31/17 09:56 PT 11.6 SECONDS (9.7-12.2) 05/30/17 08:21 INR 1.0 05/30/17 08:21 APTT 32 SECONDS (21-34) 05/30/17 08:21 - Constitutional Appears: Well, Non-toxic, No Acute Distress - Extremities Exam Additional comments: 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 focused: Vasc: lightly palpable DP and PT pulses, TG wnl, CFT < 4 sec to all digits Derm: posterior heel ulceration measuring 3cm x 4cm on the lateral aspect, fibrous base, necrotic edges, necrotic eschar on the posteromedial aspect, malodor decreased but still present, no purulence, mild serous drainage noted on bandage, minimal underlying fluctuance, no ascending cellulitis, diffuse xerosis noted plantarly Neuro: grossly diminished Ortho: contracted lower extremity, pain on palpation of posterior heel - Neurological Exam Neurological Exam: Alert, Awake, Oriented x3 - Psychiatric Exam Psychiatric exam: Normal Affect, Normal Mood Assessment and Plan - Assessment and Plan (Free Text) Assessment: 57 y/o female with pmhx of Anxiety, CHF, Dementia, Diabetes, HIV, HTN, Hyperthyroidism, Hypothyroidism, End Stage Renal Disease, Chronic Kidney Disease , seen at bedside in dialysis for left foot unstageable ulceration of posterior heel secondary to pressure Plan: Patient seen and evaluated at bedside labs and vitals reviewed; afebrile WBC @ 6.8 from yesterday X-ray: No evidence of active OM Bone scan - cellulitis, no acute OM Remain on IV abx as per ID cleansed wound with Daikins solution, applied DSD to left foot Continue PT Order for multipodus boots placed podiatry will continue to follow while patient remains in house
--- NOTE | 2017-06-01 18:22 | CP.PCM.PN ---
Subjective - Date & Time of Evaluation Date of Evaluation: 06/01/17 Time of Evaluation: 13:00 - Subjective Subjective: SEEN ON RENAL F/U FEELS IMPROVED ON HD M W F ON IVAB FOR CELLULITIS ALL PREVIOUS EMR REVIEWED Objective - Vital Signs/Intake and Output Vital Signs (last 24 hours): Temp Pulse Resp BP Pulse Ox 98.9 F 70 20 114/72 96 06/01/17 15:00 06/01/17 15:00 06/01/17 15:00 06/01/17 15:00 06/01/17 15:00 Intake and Output: 06/01/17 06/01/17 06:59 18:59 Intake Total 430 Balance 430 - Medications Medications: Current Medications Acetaminophen (Tylenol 325mg Tab) 650 mg PO Q6 PRN PRN Reason: Pain, Mild (1-3) Last Admin: 05/31/17 10:50 Dose: 650 mg Acetaminophen (Tylenol 325mg Tab) 650 mg PO Q6 PRN PRN Reason: Fever >100.4 F Aspirin (Ecotrin) 81 mg PO DAILY [facility] Last Admin: 06/01/17 09:54 Dose: 81 mg Brimonidine Tartrate (Alphagan 0.2% Opht) 0 ml OU Q12 [facility] Last Admin: 06/01/17 09:59 Dose: 1 drop Cinacalcet (Sensipar) 60 mg PO DAILY [facility] Last Admin: 06/01/17 09:53 Dose: 60 mg Clopidogrel Bisulfate (Plavix) 75 mg PO DAILY [facility] Last Admin: 06/01/17 09:54 Dose: 75 mg Collagenase (Santyl) 0 gm EXT TID [facility] Last Admin: 06/01/17 17:39 Dose: 1 applic Epoetin Alonso (Procrit) 10,000 unit IV [facility] [place] Last Admin: 05/31/17 12:02 Dose: 10,000 unit Famotidine (Pepcid) 20 mg PO DAILY [facility] Last Admin: 06/01/17 09:53 Dose: 20 mg Heparin Sodium (Porcine) (Heparin) 2,000 units IVP [facility] Stop: 06/05/17 09:01 Last Admin: 05/31/17 10:31 Dose: 2,000 units Heparin Sodium (Porcine) (Heparin) 6,800 units IVP [facility] Stop: 06/05/17 09:01 Last Admin: 05/31/17 13:14 Dose: 6,800 units Heparin Sodium (Porcine) (Heparin) 5,000 units SC Q12 [facility] Last Admin: 06/01/17 10:17 Dose: Not Given Home Med (Nateglinide) 60 mg PO DAILY [facility] Vancomycin/Sodium Chloride (Vancomycin 1 Gm/Ns 200 Ml) 1 gm in 200 mls @ 133 mls/hr IVPB MWF [facility] Stop: 06/03/17 09:01 Last Admin: 05/31/17 10:59 Dose: Not Given Meropenem 500 mg/ Dextrose 100 mls @ 100 mls/hr IVPB Q12 [facility] Last Admin: 06/01/17 09:52 Dose: 100 mls/hr Lopinavir/Ritonavir (Kaletra 200-50 Mg) 2 cap PO BID [facility] Last Admin: 06/01/17 17:33 Dose: 2 cap Magnesium Citrate (Citrate Of Mag) 300 ml PO DAILY [facility] Last Admin: 06/01/17 09:56 Dose: 300 ml Metoprolol Tartrate (Lopressor) 12.5 mg PO BID [facility] Last Admin: 06/01/17 17:32 Dose: 12.5 mg Nystatin (Nystatin Oral Susp) 5 ml PO TID [facility] Last Admin: 06/01/17 17:40 Dose: Not Given Ondansetron HCl (Zofran Inj) 4 mg IVP Q4 PRN PRN Reason: Nausea/Vomiting Last Admin: 05/31/17 10:58 Dose: 4 mg Pantoprazole Sodium (Protonix Ec Tab) 40 mg PO DAILY [facility] Last Admin: 06/01/17 09:55 Dose: 40 mg Raltegravir (Isentress) 400 mg PO BID [facility] Last Admin: 06/01/17 17:33 Dose: 400 mg Sevelamer Carbonate (Renvela) 800 mg PO TID [facility] Last Admin: 06/01/17 17:33 Dose: 800 mg Sodium Hypochlorite (Dakins Solution 0.25%) 0 ml TOP DAILY [facility] Last Admin: 06/01/17 09:59 Dose: 1 applic Timolol Maleate (Timoptic 0.5% Ophth Soln) 1 drop OS BID [facility] Last Admin: 06/01/17 17:40 Dose: 1 applic Tramadol HCl (Ultram) 25 mg PO TID PRN PRN Reason: Pain, severe (8-10) Last Admin: 06/01/17 10:03 Dose: 25 mg Trimethoprim/Sulfamethoxazole (Bactrim Ds Tab) 1 tab PO MWF [facility] Last Admin: 05/31/17 10:54 Dose: Not Given - Labs Labs: 05/31/17 09:56 05/31/17 09:56 PT 11.6 SECONDS (9.7-12.2) 05/30/17 08:21 INR 1.0 05/30/17 08:21 APTT 32 SECONDS (21-34) 05/30/17 08:21
--- NOTE | 2017-06-01 22:55 | CP.PCM.PN ---
Subjective - Date & Time of Evaluation Date of Evaluation: 06/01/17 Time of Evaluation: 22:55 - Subjective Subjective: Patient is to do hemodialysis. Feeling slightly better. No chest pain or shortness of breath Seen the clinical product manager. Possible I&D in next week. And will follow the patient Objective - Vital Signs/Intake and Output Vital Signs (last 24 hours): Temp Pulse Resp BP Pulse Ox 98.9 F 70 20 114/72 96 06/01/17 15:00 06/01/17 15:00 06/01/17 15:00 06/01/17 15:00 06/01/17 15:00 Intake and Output: 06/01/17 06/02/17 18:59 05:59 Intake Total 350 Balance 350 - Medications Medications: Current Medications Acetaminophen (Tylenol 325mg Tab) 650 mg PO Q6 PRN PRN Reason: Pain, Mild (1-3) Last Admin: 05/31/17 10:50 Dose: 650 mg Acetaminophen (Tylenol 325mg Tab) 650 mg PO Q6 PRN PRN Reason: Fever >100.4 F Aspirin (Ecotrin) 81 mg PO DAILY [facility] Last Admin: 06/01/17 09:54 Dose: 81 mg Brimonidine Tartrate (Alphagan 0.2% Opht) 0 ml OU Q12 [facility] Last Admin: 06/01/17 21:44 Dose: 1 drop Cinacalcet (Sensipar) 60 mg PO DAILY [facility] Last Admin: 06/01/17 09:53 Dose: 60 mg Clopidogrel Bisulfate (Plavix) 75 mg PO DAILY [facility] Last Admin: 06/01/17 09:54 Dose: 75 mg Collagenase (Santyl) 0 gm EXT TID [facility] Last Admin: 06/01/17 17:39 Dose: 1 applic Epoetin Alonso (Procrit) 10,000 unit IV [facility] Last Admin: 05/31/17 12:02 Dose: 10,000 unit Famotidine (Pepcid) 20 mg PO DAILY [facility] Last Admin: 06/01/17 09:53 Dose: 20 mg Heparin Sodium (Porcine) (Heparin) 2,000 units IVP [facility] Stop: 06/05/17 09:01 Last Admin: 05/31/17 10:31 Dose: 2,000 units Heparin Sodium (Porcine) (Heparin) 6,800 units IVP [facility] Stop: 06/05/17 09:01 Last Admin: 05/31/17 13:14 Dose: 6,800 units Heparin Sodium (Porcine) (Heparin) 5,000 units SC Q12 [facility] Last Admin: 06/01/17 21:44 Dose: 5,000 units Home Med (Nateglinide) 60 mg PO DAILY [facility] Vancomycin/Sodium Chloride (Vancomycin 1 Gm/Ns 200 Ml) 1 gm in 200 mls @ 133 mls/hr IVPB MWF [facility] Stop: 06/03/17 09:01 Last Admin: 05/31/17 10:59 Dose: Not Given Meropenem 500 mg/ Dextrose 100 mls @ 100 mls/hr IVPB Q12 [facility] Last Admin: 06/01/17 21:43 Dose: 100 mls/hr Lopinavir/Ritonavir (Kaletra 200-50 Mg) 2 cap PO BID [facility] Last Admin: 06/01/17 17:33 Dose: 2 cap Magnesium Citrate (Citrate Of Mag) 300 ml PO DAILY [facility] Last Admin: 06/01/17 09:56 Dose: 300 ml Metoprolol Tartrate (Lopressor) 12.5 mg PO BID [facility] Last Admin: 06/01/17 17:32 Dose: 12.5 mg Nystatin (Nystatin Oral Susp) 5 ml PO TID [facility] Last Admin: 06/01/17 17:40 Dose: Not Given Ondansetron HCl (Zofran Inj) 4 mg IVP Q4 PRN PRN Reason: Nausea/Vomiting Last Admin: 05/31/17 10:58 Dose: 4 mg Pantoprazole Sodium (Protonix Ec Tab) 40 mg PO DAILY [facility] Last Admin: 06/01/17 09:55 Dose: 40 mg Raltegravir (Isentress) 400 mg PO BID [facility] Last Admin: 06/01/17 17:33 Dose: 400 mg Sevelamer Carbonate (Renvela) 800 mg PO TID [facility] Last Admin: 06/01/17 17:33 Dose: 800 mg Sodium Hypochlorite (Dakins Solution 0.25%) 0 ml TOP DAILY [facility] Last Admin: 06/01/17 09:59 Dose: 1 applic Timolol Maleate (Timoptic 0.5% Ophth Soln) 1 drop OS BID [facility] Last Admin: 06/01/17 17:40 Dose: 1 applic Tramadol HCl (Ultram) 25 mg PO TID PRN PRN Reason: Pain, severe (8-10) Last Admin: 06/01/17 10:03 Dose: 25 mg Trimethoprim/Sulfamethoxazole (Bactrim Ds Tab) 1 tab PO [facility] Last Admin: 05/31/17 10:54 Dose: Not Given - Labs Labs: 05/31/17 09:56 05/31/17 09:56 PT 11.6 SECONDS (9.7-12.2) 05/30/17 08:21 INR 1.0 05/30/17 08:21 APTT 32 SECONDS (21-34) 05/30/17 08:21
[2017-06-02] MEDS: Meropenem 500 MG in Dextrose 5% In Water 100 ML IVPB SCH ×2 (10:15→21:48)
[2017-06-02] MEDS: Nystatin 100,000 Units/ml Oral Susp 5 ml UD PO SCH ×2 (10:16→17:14)
[2017-06-02] MEDS: Tramadol 25 mg PO PRN (10:17)
[2017-06-02] MEDS: Pantoprazole 40 mg EC Tab PO SCH (10:17)
[2017-06-02] MEDS: Magnesium Citrate Oral SOL (300 ml) PO SCH (10:18)
[2017-06-02] MEDS: Lopinavir/Ritonavir Tab PO SCH ×2 (10:21→17:17)
[2017-06-02] MEDS: Collagenase 250 Units/gm Ointment(30 gm) EXT SCH ×2 (10:57→17:14)
[2017-06-02] MEDS: Brimonidine 0.2% Opth Sol (5ml) OU SCH ×2 (10:58→21:49)
[2017-06-02] MEDS: Dakin's Topical 0.25%-Half Strength (480 ml) TOP SCH (10:58)
--- NOTE | 2017-06-02 14:24 | CP.PCM.PN ---
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 Objective - Vital Signs/Intake and Output Vital Signs (last 24 hours): Temp Pulse Resp BP Pulse Ox 98.5 F 71 20 108/67 96 06/02/17 08:45 06/02/17 08:45 06/02/17 08:45 06/02/17 08:45 06/02/17 08:45 Intake and Output: 06/02/17 06/02/17 06:59 18:59 Intake Total 500 Balance 500 - Medications Medications: Current Medications Acetaminophen (Tylenol 325mg Tab) 650 mg PO Q6 PRN PRN Reason: Pain, Mild (1-3) Last Admin: 05/31/17 10:50 Dose: 650 mg Acetaminophen (Tylenol 325mg Tab) 650 mg PO Q6 PRN PRN Reason: Fever >100.4 F Aspirin (Ecotrin) 81 mg PO DAILY [facility] Last Admin: 06/02/17 10:18 Dose: 81 mg Brimonidine Tartrate (Alphagan 0.2% Opht) 0 ml OU Q12 [facility] Last Admin: 06/02/17 10:58 Dose: 1 drop Cinacalcet (Sensipar) 60 mg PO DAILY [facility] Last Admin: 06/02/17 10:21 Dose: 60 mg Clopidogrel Bisulfate (Plavix) 75 mg PO DAILY [facility] Last Admin: 06/02/17 10:17 Dose: 75 mg Collagenase (Santyl) 0 gm EXT TID [facility] Last Admin: 06/02/17 10:57 Dose: 1 applic Epoetin Alonso (Procrit) 10,000 unit IV [facility] [place] Last Admin: 05/31/17 12:02 Dose: 10,000 unit Famotidine (Pepcid) 20 mg PO DAILY [facility] Last Admin: 06/02/17 10:18 Dose: 20 mg Heparin Sodium (Porcine) (Heparin) 2,000 units IVP [facility] Stop: 06/05/17 09:01 Last Admin: 05/31/17 10:31 Dose: 2,000 units Heparin Sodium (Porcine) (Heparin) 6,800 units IVP [facility] Stop: 06/05/17 09:01 Last Admin: 05/31/17 13:14 Dose: 6,800 units Heparin Sodium (Porcine) (Heparin) 5,000 units SC Q12 [facility] Last Admin: 06/02/17 10:19 Dose: 5,000 units Home Med (Nateglinide) 60 mg PO DAILY [facility] Vancomycin/Sodium Chloride (Vancomycin 1 Gm/Ns 200 Ml) 1 gm in 200 mls @ 133 mls/hr IVPB MWF [facility] Stop: 06/03/17 09:01 Last Admin: 05/31/17 10:59 Dose: Not Given Meropenem 500 mg/ Dextrose 100 mls @ 100 mls/hr IVPB Q12 [facility] Last Admin: 06/02/17 10:15 Dose: 100 mls/hr Lopinavir/Ritonavir (Kaletra 200-50 Mg) 2 cap PO BID [facility] Last Admin: 06/02/17 10:21 Dose: 2 cap Magnesium Citrate (Citrate Of Mag) 300 ml PO DAILY [facility] Last Admin: 06/02/17 10:18 Dose: 300 ml Metoprolol Tartrate (Lopressor) 12.5 mg PO BID [facility] Last Admin: 06/02/17 10:17 Dose: 12.5 mg Nystatin (Nystatin Oral Susp) 5 ml PO TID [facility] Last Admin: 06/02/17 10:16 Dose: 5 ml Ondansetron HCl (Zofran Inj) 4 mg IVP Q4 PRN PRN Reason: Nausea/Vomiting Last Admin: 05/31/17 10:58 Dose: 4 mg Pantoprazole Sodium (Protonix Ec Tab) 40 mg PO DAILY [facility] Last Admin: 06/02/17 10:17 Dose: 40 mg Raltegravir (Isentress) 400 mg PO BID [facility] Last Admin: 06/02/17 10:21 Dose: 400 mg Sevelamer Carbonate (Renvela) 800 mg PO TID [facility] Last Admin: 06/02/17 14:17 Dose: 800 mg Sodium Hypochlorite (Dakins Solution 0.25%) 0 ml TOP DAILY [facility] Last Admin: 06/02/17 10:58 Dose: 1 applic Timolol Maleate (Timoptic 0.5% Ophth Soln) 1 drop OS BID [facility] Last Admin: 06/02/17 10:57 Dose: 1 applic Tramadol HCl (Ultram) 25 mg PO TID PRN PRN Reason: Pain, severe (8-10) Last Admin: 06/02/17 10:17 Dose: 25 mg Trimethoprim/Sulfamethoxazole (Bactrim Ds Tab) 1 tab PO MWF [facility] Last Admin: 05/31/17 10:54 Dose: Not Given - Labs Labs: 05/31/17 09:56 05/31/17 09:56 PT 11.6 SECONDS (9.7-12.2) 05/30/17 08:21 INR 1.0 05/30/17 08:21 APTT 32 SECONDS (21-34) 05/30/17 08:21 - Constitutional Appears: Non-toxic, Chronically Ill - Head Exam Head Exam: NORMOCEPHALIC - Eye Exam Eye Exam: PERRL. absent: Scleral icterus - ENT Exam ENT Exam: Mucous Membranes Dry - Neck Exam Neck Exam: absent: Lymphadenopathy - Respiratory Exam Respiratory Exam: Decreased Breath Sounds, Clear to Ausculation Bilateral - Cardiovascular Exam Cardiovascular Exam: REGULAR RHYTHM - GI/Abdominal Exam GI & Abdominal Exam: Distended, Soft - Rectal Exam Rectal Exam: Deferred - Exam Exam: NORMAL INSPECTION - Extremities Exam Extremities Exam: absent: Pedal Edema - Back Exam Back Exam: absent: CVA tenderness (L), CVA tenderness (R) - Neurological Exam Neurological Exam: Alert, Awake, Oriented x3 - Psychiatric Exam Psychiatric exam: Depressed - Skin Skin Exam: Dry Assessment and Plan (1) Foot ulcer, left Status: Acute (2) Bandemia Status: Acute - Assessment and Plan (Free Text) Plan: cont merrem for 6-8 weeks
--- NOTE | 2017-06-02 18:02 | CP.PCM.PN ---
Subjective - Date & Time of Evaluation Date of Evaluation: 06/02/17 Time of Evaluation: 13:59 - Subjective Subjective: 57 y/o female seen and evaluated at bedside. Patient appeared to be resting comfortably in her bed in [facility]. Patient is AAOx3 and denies of any acute overnight events. Patient states that pain to her foot is increased slightly since yesterday. Patient denies of any recent F/N/V/C/shortness of breath/chest pain/calf pain/headache/diarrhea. Patient denies of any other pedal complains at this time. Objective - Vital Signs/Intake and Output Vital Signs (last 24 hours): Temp Pulse Resp BP Pulse Ox 98.5 F 71 20 108/67 96 06/02/17 08:45 06/02/17 08:45 06/02/17 08:45 06/02/17 08:45 06/02/17 08:45 Intake and Output: 06/02/17 06/02/17 06:59 18:59 Intake Total 500 Balance 500 - Medications Medications: Current Medications Acetaminophen (Tylenol 325mg Tab) 650 mg PO Q6 PRN PRN Reason: Pain, Mild (1-3) Last Admin: 05/31/17 10:50 Dose: 650 mg Acetaminophen (Tylenol 325mg Tab) 650 mg PO Q6 PRN PRN Reason: Fever >100.4 F Aspirin (Ecotrin) 81 mg PO DAILY [facility] Last Admin: 06/02/17 10:18 Dose: 81 mg Brimonidine Tartrate (Alphagan 0.2% Opht) 0 ml OU Q12 [facility] Last Admin: 06/02/17 10:58 Dose: 1 drop Cinacalcet (Sensipar) 60 mg PO DAILY [facility] Last Admin: 06/02/17 10:21 Dose: 60 mg Clopidogrel Bisulfate (Plavix) 75 mg PO DAILY [facility] Last Admin: 06/02/17 10:17 Dose: 75 mg Collagenase (Santyl) 0 gm EXT TID [facility] Last Admin: 06/02/17 17:14 Dose: Not Given Epoetin Alonso (Procrit) 10,000 unit IV MWF [facility] Last Admin: 05/31/17 12:02 Dose: 10,000 unit Famotidine (Pepcid) 20 mg PO DAILY [facility] Last Admin: 06/02/17 10:18 Dose: 20 mg Heparin Sodium (Porcine) (Heparin) 2,000 units IVP [facility] Stop: 06/05/17 09:01 Last Admin: 05/31/17 10:31 Dose: 2,000 units Heparin Sodium (Porcine) (Heparin) 6,800 units IVP [facility] Stop: 06/05/17 09:01 Last Admin: 05/31/17 13:14 Dose: 6,800 units Heparin Sodium (Porcine) (Heparin) 5,000 units SC Q12 [facility] Last Admin: 06/02/17 10:19 Dose: 5,000 units Home Med (Nateglinide) 60 mg PO DAILY [facility] Vancomycin/Sodium Chloride (Vancomycin 1 Gm/Ns 200 Ml) 1 gm in 200 mls @ 133 mls/hr IVPB [facility] Stop: 06/03/17 09:01 Last Admin: 05/31/17 10:59 Dose: Not Given Meropenem 500 mg/ Dextrose 100 mls @ 100 mls/hr IVPB Q12 [facility] Last Admin: 06/02/17 10:15 Dose: 100 mls/hr Lopinavir/Ritonavir (Kaletra 200-50 Mg) 2 cap PO BID [facility] Last Admin: 06/02/17 17:17 Dose: 2 cap Magnesium Citrate (Citrate Of Mag) 300 ml PO DAILY [facility] Last Admin: 06/02/17 10:18 Dose: 300 ml Metoprolol Tartrate (Lopressor) 12.5 mg PO BID [facility] Last Admin: 06/02/17 17:16 Dose: 12.5 mg Nystatin (Nystatin Oral Susp) 5 ml PO TID [facility] Last Admin: 06/02/17 17:14 Dose: Not Given Ondansetron HCl (Zofran Inj) 4 mg IVP Q4 PRN PRN Reason: Nausea/Vomiting Last Admin: 05/31/17 10:58 Dose: 4 mg Pantoprazole Sodium (Protonix Ec Tab) 40 mg PO DAILY [facility] Last Admin: 06/02/17 10:17 Dose: 40 mg Raltegravir (Isentress) 400 mg PO BID [facility] Last Admin: 06/02/17 17:16 Dose: 400 mg Sevelamer Carbonate (Renvela) 800 mg PO TID [facility] Last Admin: 06/02/17 17:16 Dose: 800 mg Sodium Hypochlorite (Dakins Solution 0.25%) 0 ml TOP DAILY [facility] Last Admin: 06/02/17 10:58 Dose: 1 applic Timolol Maleate (Timoptic 0.5% Ophth Soln) 1 drop OS BID [facility] Last Admin: 06/02/17 17:18 Dose: 1 applic Tramadol HCl (Ultram) 25 mg PO TID PRN PRN Reason: Pain, severe (8-10) Last Admin: 06/02/17 10:17 Dose: 25 mg Trimethoprim/Sulfamethoxazole (Bactrim Ds Tab) 1 tab PO MWF [facility] Last Admin: 05/31/17 10:54 Dose: Not Given - Labs Labs: 05/31/17 09:56 05/31/17 09:56 PT 11.6 SECONDS (9.7-12.2) 05/30/17 08:21 INR 1.0 05/30/17 08:21 APTT 32 SECONDS (21-34) 05/30/17 08:21 - Constitutional Appears: Well, Non-toxic, No Acute Distress - Extremities Exam Additional comments: 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 focused: Vasc: lightly palpable DP and PT pulses, TG wnl, CFT < 4 sec to all digits Derm: posterior heel ulceration measuring 3cm x 4cm on the lateral aspect, fibrous base, necrotic edges, necrotic eschar on the posteromedial aspect, malodor increased from yesterday, larry/green drainage noted from wound site, minimal underlying fluctuance, no ascending cellulitis, diffuse xerosis noted plantarly Neuro: grossly diminished Ortho: contracted lower extremity, pain on palpation of posterior heel - Neurological Exam Neurological Exam: Alert, Awake, Oriented x3 - Psychiatric Exam Psychiatric exam: Normal Affect, Normal Mood Assessment and Plan - Assessment and Plan (Free Text) Assessment: 57 y/o female with pmhx of Anxiety, CHF, Dementia, Diabetes, HIV, HTN, Hyperthyroidism, Hypothyroidism, End Stage Renal Disease, Chronic Kidney Disease , seen at bedside in dialysis for left foot unstageable ulceration of posterior heel secondary to pressure Plan: Patient seen and evaluated at bedside labs and vitals reviewed; afebrile X-ray: No evidence of active OM Bone scan - cellulitis, no acute OM Remain on IV abx as per ID cleansed wound with Daikins solution, applied DSD to left foot Continue PT Multipodus boot worn Per Dr. Alonso patient will be taken to OR for I and D of wound either 06/04 or 06/05. DOCUMENTATION OF MEDICAL OPTIMIZATION NEEDED podiatry will continue to follow while patient remains in house
--- NOTE | 2017-06-02 18:53 | CP.PCM.PN ---
Subjective - Date & Time of Evaluation Date of Evaluation: 06/02/17 Time of Evaluation: 18:52 - Subjective Subjective: Patient is not in any pain. Comfortable Eating okay. On antibiotic. On antiretroviral treatment. 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 Objective - Vital Signs/Intake and Output Vital Signs (last 24 hours): Temp Pulse Resp BP Pulse Ox 98.4 F 60 20 112/64 99 06/02/17 15:59 06/02/17 15:59 06/02/17 15:59 06/02/17 15:59 06/02/17 15:59 Intake and Output: 06/02/17 06/02/17 06:59 18:59 Intake Total 500 Balance 500 - Medications Medications: Current Medications Acetaminophen (Tylenol 325mg Tab) 650 mg PO Q6 PRN PRN Reason: Pain, Mild (1-3) Last Admin: 05/31/17 10:50 Dose: 650 mg Acetaminophen (Tylenol 325mg Tab) 650 mg PO Q6 PRN PRN Reason: Fever >100.4 F Aspirin (Ecotrin) 81 mg PO DAILY [facility] Last Admin: 06/02/17 10:18 Dose: 81 mg Brimonidine Tartrate (Alphagan 0.2% Opht) 0 ml OU Q12 [facility] Last Admin: 06/02/17 10:58 Dose: 1 drop Cinacalcet (Sensipar) 60 mg PO DAILY [facility] Last Admin: 06/02/17 10:21 Dose: 60 mg Clopidogrel Bisulfate (Plavix) 75 mg PO DAILY [facility] Last Admin: 06/02/17 10:17 Dose: 75 mg Collagenase (Santyl) 0 gm EXT TID [facility] Last Admin: 06/02/17 17:14 Dose: Not Given Epoetin Alonso (Procrit) 10,000 unit IV [facility] Last Admin: 05/31/17 12:02 Dose: 10,000 unit Famotidine (Pepcid) 20 mg PO DAILY [facility] Last Admin: 06/02/17 10:18 Dose: 20 mg Heparin Sodium (Porcine) (Heparin) 2,000 units IVP [facility] Stop: 06/05/17 09:01 Last Admin: 05/31/17 10:31 Dose: 2,000 units Heparin Sodium (Porcine) (Heparin) 6,800 units IVP [facility] Stop: 06/05/17 09:01 Last Admin: 05/31/17 13:14 Dose: 6,800 units Heparin Sodium (Porcine) (Heparin) 5,000 units SC Q12 [facility] Last Admin: 06/02/17 10:19 Dose: 5,000 units Home Med (Nateglinide) 60 mg PO DAILY [facility] Vancomycin/Sodium Chloride (Vancomycin 1 Gm/Ns 200 Ml) 1 gm in 200 mls @ 133 mls/hr IVPB MWF [facility] Stop: 06/03/17 09:01 Last Admin: 05/31/17 10:59 Dose: Not Given Meropenem 500 mg/ Dextrose 100 mls @ 100 mls/hr IVPB Q12 [facility] Last Admin: 06/02/17 10:15 Dose: 100 mls/hr Lopinavir/Ritonavir (Kaletra 200-50 Mg) 2 cap PO BID [facility] Last Admin: 06/02/17 17:17 Dose: 2 cap Magnesium Citrate (Citrate Of Mag) 300 ml PO DAILY [facility] Last Admin: 06/02/17 10:18 Dose: 300 ml Metoprolol Tartrate (Lopressor) 12.5 mg PO BID [facility] Last Admin: 06/02/17 17:16 Dose: 12.5 mg Nystatin (Nystatin Oral Susp) 5 ml PO TID [facility] Last Admin: 06/02/17 17:14 Dose: Not Given Ondansetron HCl (Zofran Inj) 4 mg IVP Q4 PRN PRN Reason: Nausea/Vomiting Last Admin: 05/31/17 10:58 Dose: 4 mg Pantoprazole Sodium (Protonix Ec Tab) 40 mg PO DAILY [facility] Last Admin: 06/02/17 10:17 Dose: 40 mg Raltegravir (Isentress) 400 mg PO BID [facility] Last Admin: 06/02/17 17:16 Dose: 400 mg Sevelamer Carbonate (Renvela) 800 mg PO TID [facility] Last Admin: 06/02/17 17:16 Dose: 800 mg Sodium Hypochlorite (Dakins Solution 0.25%) 0 ml TOP DAILY [facility] Last Admin: 06/02/17 10:58 Dose: 1 applic Timolol Maleate (Timoptic 0.5% Ophth Soln) 1 drop OS BID [facility] Last Admin: 06/02/17 17:18 Dose: 1 applic Tramadol HCl (Ultram) 25 mg PO TID PRN PRN Reason: Pain, severe (8-10) Last Admin: 06/02/17 10:17 Dose: 25 mg Trimethoprim/Sulfamethoxazole (Bactrim Ds Tab) 1 tab PO MWF [facility] Last Admin: 05/31/17 10:54 Dose: Not Given - Labs Labs: 05/31/17 09:56 05/31/17 09:56 PT 11.6 SECONDS (9.7-12.2) 05/30/17 08:21 INR 1.0 05/30/17 08:21 APTT 32 SECONDS (21-34) 05/30/17 08:21
[2017-06-03 06:31] LABS: HEMATOCRIT 30.2 % (34.0-47.0); MEAN CELL VOLUME 88.9 fL (81.0-99.0); MEAN CORPUSCULAR HEMOGLOBIN 28.1 pg (27.0-31.0); MEAN CORPUSCULAR HGB CONC 31.7 g/dL (33.0-37.0); MEAN PLATELET VOLUME 8.3 fL (7.2-11.7); RED CELL DISTRIBUTION WIDTH 20.9 % (11.5-14.5); WHITE BLOOD COUNT 5.2 K/uL (4.8-10.8)
[2017-06-03 06:54] LABS: ALB/GLOB RATIO 0.6 (1.0-2.1); BILIRUBIN,TOTAL 0.5 mg/dL (0.2-1.3); CALCIUM 9.1 mg/dl (8.6-10.4); POTASSIUM 4.7 mmol/L (3.6-5.2); TOTAL PROTEIN 8.7 g/dL (6.3-8.3)
[2017-06-03] MEDS: Tmp-Smz 800 mg-160 mg DS Tab PO SCH ×2 (10:00→14:54)
[2017-06-03] MEDS: Vancomycin 1 gm/NS 200 ml 1 GM/200 ML BAG IVPB SCH ×2 (10:00→14:51)
[2017-06-03] MEDS: Brimonidine 0.2% Opth Sol (5ml) OU SCH ×2 (10:02→21:53)
[2017-06-03] MEDS: Magnesium Citrate Oral SOL (300 ml) PO SCH ×2 (10:24→14:56)
[2017-06-03] MEDS: Dakin's Topical 0.25%-Half Strength (480 ml) TOP SCH (10:24)
[2017-06-03] MEDS: Lopinavir/Ritonavir Tab PO SCH ×2 (10:26→17:49)
[2017-06-03] MEDS: Meropenem 500 MG in Dextrose 5% In Water 100 ML IVPB SCH ×2 (10:27→16:50)
[2017-06-03] MEDS: Nystatin 100,000 Units/ml Oral Susp 5 ml UD PO SCH ×3 (10:28→18:50)
[2017-06-03] MEDS: Pantoprazole 40 mg EC Tab PO SCH ×2 (10:29→14:55)
[2017-06-03] MEDS: Collagenase 250 Units/gm Ointment(30 gm) EXT SCH ×3 (10:31→18:50)
--- NOTE | 2017-06-03 11:55 | CP.PCM.PN ---
Subjective - Date & Time of Evaluation Date of Evaluation: 06/03/17 Time of Evaluation: 07:00 - Subjective Subjective: increased foul smelling discharge from heel for or cont IV merrem Objective - Vital Signs/Intake and Output Vital Signs (last 24 hours): Temp Pulse Resp BP Pulse Ox 97.7 F 69 16 80/44 L 96 06/03/17 10:35 06/03/17 10:57 06/03/17 10:35 06/03/17 11:23 06/03/17 10:57 Intake and Output: 06/03/17 06/03/17 06:59 18:59 Intake Total 520 Balance 520 - Medications Medications: Current Medications Acetaminophen (Tylenol 325mg Tab) 650 mg PO Q6 PRN PRN Reason: Pain, Mild (1-3) Last Admin: 05/31/17 10:50 Dose: 650 mg Acetaminophen (Tylenol 325mg Tab) 650 mg PO Q6 PRN PRN Reason: Fever >100.4 F Aspirin (Ecotrin) 81 mg PO DAILY [facility] Last Admin: 06/03/17 10:25 Dose: Not Given Brimonidine Tartrate (Alphagan 0.2% Opht) 0 ml OU Q12 [facility] Last Admin: 06/03/17 10:02 Dose: 1 drop Cinacalcet (Sensipar) 60 mg PO DAILY [facility] Last Admin: 06/03/17 10:32 Dose: Not Given Clopidogrel Bisulfate (Plavix) 75 mg PO DAILY [facility] Last Admin: 06/03/17 10:28 Dose: Not Given Collagenase (Santyl) 0 gm EXT TID [facility] Last Admin: 06/03/17 10:31 Dose: Not Given Epoetin Alonso (Procrit) 10,000 unit IV [facility] Last Admin: 05/31/17 12:02 Dose: 10,000 unit Famotidine (Pepcid) 20 mg PO DAILY [facility] Last Admin: 06/03/17 10:28 Dose: Not Given Heparin Sodium (Porcine) (Heparin) 6,800 units IVP [facility] Stop: 06/05/17 09:01 Last Admin: 05/31/17 13:14 Dose: 6,800 units Heparin Sodium (Porcine) (Heparin) 5,000 units SC Q12 [facility] Last Admin: 06/03/17 10:25 Dose: Not Given Home Med (Nateglinide) 60 mg PO DAILY [facility] Meropenem 500 mg/ Dextrose 100 mls @ 100 mls/hr IVPB Q12 [facility] Last Admin: 06/03/17 10:27 Dose: Not Given Lopinavir/Ritonavir (Kaletra 200-50 Mg) 2 cap PO BID [facility] Last Admin: 06/03/17 10:26 Dose: Not Given Magnesium Citrate (Citrate Of Mag) 300 ml PO DAILY [facility] Last Admin: 06/03/17 10:24 Dose: Not Given Metoprolol Tartrate (Lopressor) 12.5 mg PO BID [facility] Last Admin: 06/03/17 10:26 Dose: Not Given Nystatin (Nystatin Oral Susp) 5 ml PO TID [facility] Last Admin: 06/03/17 10:28 Dose: Not Given Ondansetron HCl (Zofran Inj) 4 mg IVP Q4 PRN PRN Reason: Nausea/Vomiting Last Admin: 05/31/17 10:58 Dose: 4 mg Pantoprazole Sodium (Protonix Ec Tab) 40 mg PO DAILY [facility] Last Admin: 06/03/17 10:29 Dose: Not Given Raltegravir (Isentress) 400 mg PO BID [facility] Last Admin: 06/03/17 10:26 Dose: Not Given Sevelamer Carbonate (Renvela) 800 mg PO TID [facility] Last Admin: 06/03/17 10:29 Dose: Not Given Sodium Hypochlorite (Dakins Solution 0.25%) 0 ml TOP DAILY [facility] Last Admin: 06/03/17 10:24 Dose: Not Given Timolol Maleate (Timoptic 0.5% Oph Soln) 1 drop OS BID [facility] Last Admin: 06/03/17 10:02 Dose: 1 applic Tramadol HCl (Ultram) 25 mg PO TID PRN PRN Reason: Pain, severe (8-10) Last Admin: 06/02/17 10:17 Dose: 25 mg Trimethoprim/Sulfamethoxazole (Bactrim Ds Tab) 1 tab PO MWF [facility] Last Admin: 06/03/17 10:00 Dose: Not Given - Labs Labs: 06/03/17 06:24 06/03/17 06:24 PT 11.6 SECONDS (9.7-12.2) 05/30/17 08:21 INR 1.0 05/30/17 08:21 APTT 32 SECONDS (21-34) 05/30/17 08:21 - Constitutional Appears: Non-toxic, Chronically Ill - Head Exam Head Exam: NORMOCEPHALIC - Eye Exam Eye Exam: PERRL - ENT Exam ENT Exam: Mucous Membranes Dry - Neck Exam Neck Exam: absent: Lymphadenopathy - Respiratory Exam Respiratory Exam: Decreased Breath Sounds, Rhonchi - Cardiovascular Exam Cardiovascular Exam: REGULAR RHYTHM - GI/Abdominal Exam GI & Abdominal Exam: Distended, Soft - Rectal Exam Rectal Exam: Deferred - Exam Exam: NORMAL INSPECTION - Extremities Exam Extremities Exam: Pedal Edema, Tenderness. absent: Calf Tenderness - Back Exam Back Exam: absent: CVA tenderness (L), CVA tenderness (R) - Neurological Exam Neurological Exam: Alert, Awake, Oriented x3 Assessment and Plan (1) Foot ulcer, left Status: Acute (2) Bandemia Status: Acute - Assessment and Plan (Free Text) Plan: for OR Dr Bessy Alonso
--- NOTE | 2017-06-03 12:15 | CP.PCM.PN ---
<Vangie Delgado - Last Filed: 06/03/17 12:12> Subjective - Date & Time of Evaluation Date of Evaluation: 06/03/17 Time of Evaluation: 12:12 - Subjective Subjective: 57 y/o female seen and evaluated at bedside with attending Dr. Alonso regarding left heel ulceration. Patient appeared to be resting comfortably in her bed in [facility]. Patient is AAOx3 and denies of any acute overnight events. Patient states that pain to her foot is increased slightly since yesterday. Patient denies of any recent F/N/V/C/shortness of breath/chest pain/calf pain/headache/diarrhea. Patient denies of any other pedal complains at this time. Objective - Vital Signs/Intake and Output Vital Signs (last 24 hours): Temp Pulse Resp BP Pulse Ox 97.7 F 69 16 80/44 L 96 06/03/17 10:35 06/03/17 10:57 06/03/17 10:35 06/03/17 11:23 06/03/17 10:57 Intake and Output: 06/03/17 06/03/17 06:59 18:59 Intake Total 520 Balance 520 - Medications Medications: Current Medications Acetaminophen (Tylenol 325mg Tab) 650 mg PO Q6 PRN PRN Reason: Pain, Mild (1-3) Last Admin: 05/31/17 10:50 Dose: 650 mg Acetaminophen (Tylenol 325mg Tab) 650 mg PO Q6 PRN PRN Reason: Fever >100.4 F Aspirin (Ecotrin) 81 mg PO DAILY [facility] Last Admin: 06/03/17 10:25 Dose: Not Given Brimonidine Tartrate (Alphagan 0.2% Opht) 0 ml OU Q12 [facility] Last Admin: 06/03/17 10:02 Dose: 1 drop Cinacalcet (Sensipar) 60 mg PO DAILY [facility] Last Admin: 06/03/17 10:32 Dose: Not Given Clopidogrel Bisulfate (Plavix) 75 mg PO DAILY [facility] Last Admin: 06/03/17 10:28 Dose: Not Given Collagenase (Santyl) 0 gm EXT TID [facility] Last Admin: 06/03/17 10:31 Dose: Not Given Epoetin Alonso (Procrit) 10,000 unit IV MWF [facility] Last Admin: 05/31/17 12:02 Dose: 10,000 unit Famotidine (Pepcid) 20 mg PO DAILY [facility] Last Admin: 06/03/17 10:28 Dose: Not Given Heparin Sodium (Porcine) (Heparin) 5,000 units SC Q12 [facility] Last Admin: 06/03/17 10:25 Dose: Not Given Home Med (Nateglinide) 60 mg PO DAILY [facility] Meropenem 500 mg/ Dextrose 100 mls @ 100 mls/hr IVPB Q12 [facility] Last Admin: 06/03/17 10:27 Dose: Not Given Lopinavir/Ritonavir (Kaletra 200-50 Mg) 2 cap PO BID [facility] Last Admin: 06/03/17 10:26 Dose: Not Given Magnesium Citrate (Citrate Of Mag) 300 ml PO DAILY [facility] Last Admin: 06/03/17 10:24 Dose: Not Given Metoprolol Tartrate (Lopressor) 12.5 mg PO BID [facility] Last Admin: 06/03/17 10:26 Dose: Not Given Nystatin (Nystatin Oral Susp) 5 ml PO TID [facility] Last Admin: 06/03/17 10:28 Dose: Not Given Ondansetron HCl (Zofran Inj) 4 mg IVP Q4 PRN PRN Reason: Nausea/Vomiting Last Admin: 05/31/17 10:58 Dose: 4 mg Pantoprazole Sodium (Protonix Ec Tab) 40 mg PO DAILY [facility] Last Admin: 06/03/17 10:29 Dose: Not Given Raltegravir (Isentress) 400 mg PO BID [facility] Last Admin: 06/03/17 10:26 Dose: Not Given Sevelamer Carbonate (Renvela) 800 mg PO TID [facility] Last Admin: 06/03/17 10:29 Dose: Not Given Sodium Hypochlorite (Dakins Solution 0.25%) 0 ml TOP DAILY [facility] Last Admin: 06/03/17 10:24 Dose: Not Given Timolol Maleate (Timoptic 0.5% Ophth Soln) 1 drop OS BID [facility] Last Admin: 06/03/17 10:02 Dose: 1 applic Tramadol HCl (Ultram) 25 mg PO TID PRN PRN Reason: Pain, severe (8-10) Last Admin: 06/02/17 10:17 Dose: 25 mg Trimethoprim/Sulfamethoxazole (Bactrim Ds Tab) 1 tab PO MWF [facility] Last Admin: 06/03/17 10:00 Dose: Not Given - Labs Labs: 06/03/17 06:24 06/03/17 06:24 PT 11.6 SECONDS (9.7-12.2) 05/30/17 08:21 INR 1.0 05/30/17 08:21 APTT 32 SECONDS (21-34) 05/30/17 08:21 - Constitutional Appears: Well, Non-toxic, No Acute Distress - Extremities Exam Additional comments: 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 focused: Vasc: lightly palpable DP and PT pulses, TG wnl, CFT < 4 sec to all digits Derm: posterior heel ulceration measuring 3cm x 4cm on the lateral aspect, fibrous base, necrotic edges, necrotic eschar on the posteromedial aspect, malodor increased from yesterday, larry/green drainage noted from wound site, minimal underlying fluctuance, no ascending cellulitis, diffuse xerosis noted plantarly Neuro: grossly diminished Ortho: contracted lower extremity, pain on palpation of posterior heel - Neurological Exam Neurological Exam: Alert, Awake, Oriented x3 - Psychiatric Exam Psychiatric exam: Normal Affect, Normal Mood Assessment and Plan - Assessment and Plan (Free Text) Assessment: 57 y/o female seen at bedside for left heel ulceration Plan: patient evaluated and chart reviewed seen at bedside with attending Dr. Alonso labs and vitals reviewed; WBC 5.2, afebrile X-ray: No evidence of active OM Bone scan - cellulitis, no acute OM Remain on IV abx as per ID cleansed wound with saline, applied DSD to left foot Continue PT Multipodus boot worn patient to OR tomorrow for left heel wound debridement at 2pm with Dr. Alonso, patient aware that this is a limb salvage procedure due to severity of infection and was explained all risks, benefits, complications- patient understands that next step may proceed to BKA awaiting medical optimization, Dr. Bonilla aware consent signed and in the chart patient to be NPO after midnight tonight Heparin held for tomorrow podiatry will continue to follow while patient remains in house <Gus Alonso - Last Filed: 06/04/17 08:12> Objective - Vital Signs/Intake and Output Vital Signs (last 24 hours): Temp Pulse Resp BP Pulse Ox 98.3 F 72 20 101/57 L 97 06/04/17 00:00 06/04/17 00:00 06/04/17 00:00 06/04/17 00:00 06/04/17 00:00 Intake and Output: 06/04/17 06/04/17 06:59 18:59 Intake Total 300 100 Balance 300 100 - Medications Medications: Current Medications Acetaminophen (Tylenol 325mg Tab) 650 mg PO Q6 PRN PRN Reason: Pain, Mild (1-3) Last Admin: 05/31/17 10:50 Dose: 650 mg Acetaminophen (Tylenol 325mg Tab) 650 mg PO Q6 PRN PRN Reason: Fever >100.4 F Aspirin (Ecotrin) 81 mg PO DAILY [facility] Last Admin: 06/03/17 14:55 Dose: 81 mg Brimonidine Tartrate (Alphagan 0.2% Opht) 0 ml OU Q12 [facility] Last Admin: 06/03/17 21:53 Dose: 1 drop Cinacalcet (Sensipar) 60 mg PO DAILY [facility] Last Admin: 06/03/17 14:54 Dose: 60 mg Clopidogrel Bisulfate (Plavix) 75 mg PO DAILY [facility] Last Admin: 06/03/17 14:55 Dose: 75 mg Collagenase (Santyl) 0 gm EXT TID [facility] Last Admin: 06/03/17 18:50 Dose: 1 applic Epoetin [facility]onso ([facility]) [facility] Last Admin: 06/03/17 13:21 Dose: 10,000 unit Famotidine (Pepcid) 20 mg PO DAILY [facility] Last Admin: 06/03/17 14:55 Dose: 20 mg Heparin Sodium (Porcine) (Heparin) 5,000 units SC Q12 [facility] Last Admin: 06/03/17 10:25 Dose: Not Given Home Med (Nateglinide) 60 mg PO DAILY [facility] Meropenem 500 mg/ Dextrose 100 mls @ 100 mls/hr IVPB Q12H [facility] Last Admin: 06/04/17 04:34 Dose: 100 mls/hr Vancomycin/Sodium Chloride (Vancomycin 1 Gm/Ns 200 Ml) 1 gm in 200 mls @ 133 mls/hr IVPB MWF [facility] Stop: 06/10/17 09:01 Lopinavir/Ritonavir (Kaletra 200-50 Mg) 2 cap PO BID [facility] Last Admin: 06/03/17 17:49 Dose: 2 cap Magnesium Citrate (Citrate Of Mag) 300 ml PO DAILY [facility] Last Admin: 06/03/17 14:56 Dose: Not Given Metoprolol Tartrate (Lopressor) 12.5 mg PO BID [facility] Last Admin: 06/03/17 17:48 Dose: 12.5 mg Nystatin (Nystatin Oral Susp) 5 ml PO TID [facility] Last Admin: 06/03/17 18:50 Dose: Not Given Ondansetron HCl (Zofran Inj) 4 mg IVP Q4 PRN PRN Reason: Nausea/Vomiting Last Admin: 05/31/17 10:58 Dose: 4 mg Pantoprazole Sodium (Protonix Ec Tab) 40 mg PO DAILY [facility] Last Admin: 06/03/17 14:55 Dose: 40 mg Raltegravir (Isentress) 400 mg PO BID [facility] Last Admin: 06/03/17 17:49 Dose: 400 mg Sevelamer Carbonate (Renvela) 800 mg PO TID [facility] Last Admin: 06/03/17 17:48 Dose: 800 mg Sodium Hypochlorite (Dakins Solution 0.25%) 0 ml TOP DAILY [facility] Last Admin: 06/03/17 10:24 Dose: Not Given Timolol Maleate (Timoptic 0.5% Ophth Soln) 1 drop OS BID [facility] Last Admin: 06/03/17 18:50 Dose: 1 applic Tramadol HCl (Ultram) 25 mg PO TID PRN PRN Reason: Pain, severe (8-10) Last Admin: 06/02/17 10:17 Dose: 25 mg Trimethoprim/Sulfamethoxazole (Bactrim Ds Tab) 1 tab PO MWF [facility] Last Admin: 06/03/17 14:54 Dose: 1 tab - Labs Labs: 06/03/17 06:24 06/03/17 06:24 PT 11.6 SECONDS (9.7-12.2) 05/30/17 08:21 INR 1.0 05/30/17 08:21 APTT 32 SECONDS (21-34) 05/30/17 08:21 Attending/Attestation - Attestation I have personally seen and examined this patient.: Yes I have fully participated in the care of the patient.: Yes I have reviewed all pertinent clinical information, including history, physical exam and plan: Yes
[2017-06-03] MEDS: Epoetin Alfa 10,000 unit/ml Dialysis IV SCH (13:21)
--- NOTE | 2017-06-03 16:16 | CP.PCM.PN ---
Subjective - Date & Time of Evaluation Date of Evaluation: 06/03/17 Time of Evaluation: 16:14 - Subjective Subjective: PT SEEN TODAY SEVERAL TIMES; TOLERATED HD. NO NEW COMPLAINTS ASIDE FROM LEFT FOOT PAIN. PT IS FOR OR TOMORROW WITH PODIATRY FOR DEBRIDEMENT OF WOUND. LEATHER PATCHER DISCUSSED WITH DR. ALBERTO AND PT TO CONTINUE THE IV ABX FOR 8 WEEKS FOR TREATMENT OF OSTEO. ALSO DISCUSSED WITH NEPHRO REGARDING PICC LINE AND PER DR. TYLER IT IS OK TO INSERT PICC LINE FOR ABX TREATMENT. PT NOW CONSIDERING [facility] FOR IV ABX AND WOUND CARE, SHE LIVES AT HOME AND THERE IS A CONCERN THAT HER SON CANNOT PROVIDE ALL THE CARE SHE REQUIRES RIGHT NOW. SW CAN REFER TO [facility] IF PT AGREES; SHE WILL THINK ABOUT IT AND GIVE ANSWER TOMORROW MORNING. LEATHER PATCHER TO F /U WITH PT TOMORROW. CASE AND PLANS DISCUSSED WITH DR. HOLLEY. NO FURTHER ORDERS. Objective - Vital Signs/Intake and Output Vital Signs (last 24 hours): Temp Pulse Resp BP Pulse Ox 97.5 F L 74 20 130/67 96 06/03/17 15:00 06/03/17 15:00 06/03/17 15:00 06/03/17 15:00 06/03/17 15:00 Intake and Output: 06/03/17 06/03/17 06:59 18:59 Intake Total 520 Balance 520 - Medications Medications: Current Medications Acetaminophen (Tylenol 325mg Tab) 650 mg PO Q6 PRN PRN Reason: Pain, Mild (1-3) Last Admin: 05/31/17 10:50 Dose: 650 mg Acetaminophen (Tylenol 325mg Tab) 650 mg PO Q6 PRN PRN Reason: Fever >100.4 F Aspirin (Ecotrin) 81 mg PO DAILY [facility] Last Admin: 06/03/17 14:55 Dose: 81 mg Brimonidine Tartrate (Alphagan 0.2% Opht) 0 ml OU Q12 [facility] Last Admin: 06/03/17 10:02 Dose: 1 drop Cinacalcet (Sensipar) 60 mg PO DAILY [facility] Last Admin: 06/03/17 14:54 Dose: 60 mg Clopidogrel Bisulfate (Plavix) 75 mg PO DAILY [facility] Last Admin: 06/03/17 14:55 Dose: 75 mg Collagenase (Santyl) 0 gm EXT TID [facility] Last Admin: 06/03/17 14:59 Dose: Not Given Epoetin Alonso (Procrit) 10,000 unit IV MWF [facility] Last Admin: 06/03/17 13:21 Dose: 10,000 unit Famotidine (Pepcid) 20 mg PO DAILY [facility] Last Admin: 06/03/17 14:55 Dose: 20 mg Heparin Sodium (Porcine) (Heparin) 5,000 units SC Q12 [facility] Last Admin: 06/03/17 10:25 Dose: Not Given Home Med (Nateglinide) 60 mg PO DAILY [facility] Meropenem 500 mg/ Dextrose 100 mls @ 100 mls/hr IVPB Q12H [facility] Lopinavir/Ritonavir (Kaletra 200-50 Mg) 2 cap PO BID [facility] Last Admin: 06/03/17 10:26 Dose: Not Given Magnesium Citrate (Citrate Of Mag) 300 ml PO DAILY [facility] Last Admin: 06/03/17 14:56 Dose: Not Given Metoprolol Tartrate (Lopressor) 12.5 mg PO BID [facility] Last Admin: 06/03/17 10:26 Dose: Not Given Nystatin (Nystatin Oral Susp) 5 ml PO TID [facility] Last Admin: 06/03/17 15:00 Dose: Not Given Ondansetron HCl (Zofran Inj) 4 mg IVP Q4 PRN PRN Reason: Nausea/Vomiting Last Admin: 05/31/17 10:58 Dose: 4 mg Pantoprazole Sodium (Protonix Ec Tab) 40 mg PO DAILY [facility] Last Admin: 06/03/17 14:55 Dose: 40 mg Raltegravir (Isentress) 400 mg PO BID [facility] Last Admin: 06/03/17 10:26 Dose: Not Given Sevelamer Carbonate (Renvela) 800 mg PO TID [facility] Last Admin: 06/03/17 14:53 Dose: 800 mg Sodium Hypochlorite (Dakins Solution 0.25%) 0 ml TOP DAILY [facility] Last Admin: 06/03/17 10:24 Dose: Not Given Timolol Maleate (Timoptic 0.5% Ophth Soln) 1 drop OS BID [facility] Last Admin: 06/03/17 10:02 Dose: 1 applic Tramadol HCl (Ultram) 25 mg PO TID PRN PRN Reason: Pain, severe (8-10) Last Admin: 06/02/17 10:17 Dose: 25 mg Trimethoprim/Sulfamethoxazole (Bactrim Ds Tab) 1 tab PO MWF [facility] Last Admin: 06/03/17 14:54 Dose: 1 tab - Labs Labs: 06/03/17 06:24 06/03/17 06:24 PT 11.6 SECONDS (9.7-12.2) 05/30/17 08:21 INR 1.0 05/30/17 08:21 APTT 32 SECONDS (21-34) 05/30/17 08:21
--- NOTE | 2017-06-03 18:51 | CP.PCM.PN ---
Subjective - Date & Time of Evaluation Date of Evaluation: 06/03/17 Time of Evaluation: 14:00 - Subjective Subjective: SEEN ON RENAL F/U COMPLETED HER HD EARLIER TODAY C/O PAIN ON L FOOT ALL PREVIOUS EMR REVIEWED Objective - Vital Signs/Intake and Output Vital Signs (last 24 hours): Temp Pulse Resp BP Pulse Ox 97.5 F L 74 20 130/67 96 06/03/17 15:00 06/03/17 15:00 06/03/17 15:00 06/03/17 15:00 06/03/17 15:00 Intake and Output: 06/03/17 06/03/17 06:59 18:59 Intake Total 520 350 Balance 520 350 - Medications Medications: Current Medications Acetaminophen (Tylenol 325mg Tab) 650 mg PO Q6 PRN PRN Reason: Pain, Mild (1-3) Last Admin: 05/31/17 10:50 Dose: 650 mg Acetaminophen (Tylenol 325mg Tab) 650 mg PO Q6 PRN PRN Reason: Fever >100.4 F Aspirin (Ecotrin) 81 mg PO DAILY [facility] Last Admin: 06/03/17 14:55 Dose: 81 mg Brimonidine Tartrate (Alphagan 0.2% Opht) 0 ml OU Q12 [facility] Last Admin: 06/03/17 10:02 Dose: 1 drop Cinacalcet (Sensipar) 60 mg PO DAILY [facility] Last Admin: 06/03/17 14:54 Dose: 60 mg Clopidogrel Bisulfate (Plavix) 75 mg PO DAILY [facility] Last Admin: 06/03/17 14:55 Dose: 75 mg Collagenase (Santyl) 0 gm EXT TID [facility] Last Admin: 06/03/17 14:59 Dose: Not Given Epoetin Alonso (Procrit) 10,000 unit IV MWF [facility] Last Admin: 06/03/17 13:21 Dose: 10,000 unit Famotidine (Pepcid) 20 mg PO DAILY [facility] Last Admin: 06/03/17 14:55 Dose: 20 mg Heparin Sodium (Porcine) (Heparin) 5,000 units SC Q12 [facility] Last Admin: 06/03/17 10:25 Dose: Not Given Home Med (Nateglinide) 60 mg PO DAILY [facility] Meropenem 500 mg/ Dextrose 100 mls @ 100 mls/hr IVPB Q12H [facility] Last Admin: 06/03/17 16:50 Dose: 100 mls/hr Vancomycin/Sodium Chloride (Vancomycin 1 Gm/Ns 200 Ml) 1 gm in 200 mls @ 133 mls/hr IVPB MWF [facility] Stop: 06/10/17 09:01 Lopinavir/Ritonavir (Kaletra 200-50 Mg) 2 cap PO BID [facility] Last Admin: 06/03/17 17:49 Dose: 2 cap Magnesium Citrate (Citrate Of Mag) 300 ml PO DAILY [facility] Last Admin: 06/03/17 14:56 Dose: Not Given Metoprolol Tartrate (Lopressor) 12.5 mg PO BID [facility] Last Admin: 06/03/17 17:48 Dose: 12.5 mg Nystatin (Nystatin Oral Susp) 5 ml PO TID [facility] Last Admin: 06/03/17 15:00 Dose: Not Given Ondansetron HCl (Zofran Inj) 4 mg IVP Q4 PRN PRN Reason: Nausea/Vomiting Last Admin: 05/31/17 10:58 Dose: 4 mg Pantoprazole Sodium (Protonix Ec Tab) 40 mg PO DAILY [facility] Last Admin: 06/03/17 14:55 Dose: 40 mg Raltegravir (Isentress) 400 mg PO BID [facility] Last Admin: 06/03/17 17:49 Dose: 400 mg Sevelamer Carbonate (Renvela) 800 mg PO TID [facility] Last Admin: 06/03/17 17:48 Dose: 800 mg Sodium Hypochlorite (Dakins Solution 0.25%) 0 ml TOP DAILY [facility] Last Admin: 06/03/17 10:24 Dose: Not Given Timolol Maleate (Timoptic 0.5% [facility] Soln) 1 drop OS BID [facility] Last Admin: 06/03/17 10:02 Dose: 1 applic Tramadol HCl (Ultram) 25 mg PO TID PRN PRN Reason: Pain, severe (8-10) Last Admin: 06/02/17 10:17 Dose: 25 mg Trimethoprim/Sulfamethoxazole (Bactrim Ds Tab) 1 tab PO [facility] [place] [facility] Last Admin: 06/03/17 14:54 Dose: 1 tab - Labs Labs: 06/03/17 06:24 06/03/17 06:24 PT 11.6 SECONDS (9.7-12.2) 05/30/17 08:21 INR 1.0 05/30/17 08:21 APTT 32 SECONDS (21-34) 05/30/17 08:21 Assessment and Plan - Assessment and Plan (Free Text) Assessment: ESRD ON HD M W F .. TO BE C/O ANEMIA OF CKD .. H/H STABLE L FOOT CELLULITIS AND OSTEOMYELITIS MULTIPLE CO MORBIDITIES P : C/O CURRENT CARE C/O PRESENT MANAGEMENT TO TRANSFERE [facility] NEEDS IVAB FOR [address] ALBERTO
[2017-06-04] MEDS: Meropenem 500 MG in Dextrose 5% In Water 100 ML IVPB SCH ×2 (04:34→16:51)
--- NOTE | 2017-06-04 08:17 | CP.PCM.PN ---
Subjective - Date & Time of Evaluation Date of Evaluation: 06/04/17 Time of Evaluation: 08:14 - Subjective Subjective: Pt for OR today at 2PM. Discussed case at length with patient and her son, Dilip by phone. They both understand that this is a limb salvage procedure. We will try and cut out the and necrotic tissue. If healing is compromised due to her comorbidities and limited circulation, future surgery may be needed or ultimately she may need a BK or AK amp. Pt is aware and understands all risks and alternatives and has signed the consent. Pt will be on assisted IV abx afterwards and will be placed in subacute rehab. Objective - Vital Signs/Intake and Output Vital Signs (last 24 hours): Temp Pulse Resp BP Pulse Ox 98.3 F 72 20 101/57 L 97 06/04/17 00:00 06/04/17 00:00 06/04/17 00:00 06/04/17 00:00 06/04/17 00:00 Intake and Output: 06/04/17 06/04/17 06:59 18:59 Intake Total 300 100 Balance 300 100 - Medications Medications: Current Medications Acetaminophen (Tylenol 325mg Tab) 650 mg PO Q6 PRN PRN Reason: Pain, Mild (1-3) Last Admin: 05/31/17 10:50 Dose: 650 mg Acetaminophen (Tylenol 325mg Tab) 650 mg PO Q6 PRN PRN Reason: Fever >100.4 F Aspirin (Ecotrin) 81 mg PO DAILY [facility] Last Admin: 06/03/17 14:55 Dose: 81 mg Brimonidine Tartrate (Alphagan 0.2% Opht) 0 ml OU Q12 [facility] Last Admin: 06/03/17 21:53 Dose: 1 drop Cinacalcet (Sensipar) 60 mg PO DAILY [facility] Last Admin: 06/03/17 14:54 Dose: 60 mg Clopidogrel Bisulfate (Plavix) 75 mg PO DAILY [facility] Last Admin: 06/03/17 14:55 Dose: 75 mg Collagenase (Santyl) 0 gm EXT TID [facility] Last Admin: 06/03/17 18:50 Dose: 1 applic Epoetin Alonso (Procrit) 10,000 unit IV MWF [facility] Last Admin: 06/03/17 13:21 Dose: 10,000 unit Famotidine (Pepcid) 20 mg PO DAILY [facility] Last Admin: 06/03/17 14:55 Dose: 20 mg Heparin Sodium (Porcine) (Heparin) 5,000 units SC Q12 [facility] Last Admin: 06/03/17 10:25 Dose: Not Given Home Med (Nateglinide) 60 mg PO DAILY [facility] Meropenem 500 mg/ Dextrose 100 mls @ 100 mls/hr IVPB Q12H [facility] Last Admin: 06/04/17 04:34 Dose: 100 mls/hr Vancomycin/Sodium Chloride (Vancomycin 1 Gm/Ns 200 Ml) 1 gm in 200 mls @ 133 mls/hr IVPB MWF [facility] Stop: 06/10/17 09:01 Lopinavir/Ritonavir (Kaletra 200-50 Mg) 2 cap PO BID [facility] Last Admin: 06/03/17 17:49 Dose: 2 cap Magnesium Citrate (Citrate Of Mag) 300 ml PO DAILY [facility] Last Admin: 06/03/17 14:56 Dose: Not Given Metoprolol Tartrate (Lopressor) 12.5 mg PO BID [facility] Last Admin: 06/03/17 17:48 Dose: 12.5 mg Nystatin (Nystatin Oral Susp) 5 ml PO TID [facility] Last Admin: 06/03/17 18:50 Dose: Not Given Ondansetron HCl (Zofran Inj) 4 mg IVP Q4 PRN PRN Reason: Nausea/Vomiting Last Admin: 05/31/17 10:58 Dose: 4 mg Pantoprazole Sodium (Protonix Ec Tab) 40 mg PO DAILY [facility] Last Admin: 06/03/17 14:55 Dose: 40 mg Raltegravir (Isentress) 400 mg PO BID [facility] Last Admin: 06/03/17 17:49 Dose: 400 mg Sevelamer Carbonate (Renvela) 800 mg PO TID [facility] Last Admin: 06/03/17 17:48 Dose: 800 mg Sodium Hypochlorite (Dakins Solution 0.25%) 0 ml TOP DAILY [facility] Last Admin: 06/03/17 10:24 Dose: Not Given Timolol Maleate (Timoptic 0.5% Ophth Soln) 1 drop OS BID [facility] Last Admin: 06/03/17 18:50 Dose: 1 applic Tramadol HCl (Ultram) 25 mg PO TID PRN PRN Reason: Pain, severe (8-10) Last Admin: 06/02/17 10:17 Dose: 25 mg Trimethoprim/Sulfamethoxazole (Bactrim Ds Tab) 1 tab PO MWF [facility] Last Admin: 06/03/17 14:54 Dose: 1 tab - Labs Labs: 06/03/17 06:24 06/03/17 06:24 PT 11.6 SECONDS (9.7-12.2) 05/30/17 08:21 INR 1.0 05/30/17 08:21 APTT 32 SECONDS (21-34) 05/30/17 08:21
[2017-06-04] MEDS: Brimonidine 0.2% Opth Sol (5ml) OU SCH ×2 (09:06→21:56)
[2017-06-04] MEDS: Lopinavir/Ritonavir Tab PO SCH ×2 (09:06→17:33)
[2017-06-04] MEDS: Magnesium Citrate Oral SOL (300 ml) PO SCH (09:06)
[2017-06-04] MEDS: Nystatin 100,000 Units/ml Oral Susp 5 ml UD PO SCH ×3 (09:06→17:33)
[2017-06-04] MEDS: Dakin's Topical 0.25%-Half Strength (480 ml) TOP SCH (09:06)
[2017-06-04] MEDS: Collagenase 250 Units/gm Ointment(30 gm) EXT SCH ×3 (09:07→17:36)
[2017-06-04] MEDS: Pantoprazole 40 mg EC Tab PO SCH (09:07)
--- NOTE | 2017-06-04 10:02 | PCM.SURG1 ---
Surgeon's Initial Post Op Note - Surgeon's Notes Surgeon: Baron Kelly MD Web Developer Programmer: NONE Pre-Operative Diagnosis: Poor venous access, central venous occlusion Operative Findings: Patent right bracial vein. Occluded subclavian vein. Axillary vein stenosis. Post-Operative Diagnosis: Poor venous access, central venous occlusion Operation Performed: Single lumen midline picc placement, 10 cm. Tip in brachial vein. Unable to advance picc beyond axillary vein stenosis. Specimen/Specimens Removed: NONE Estimated Blood Loss: EBL {In ML}: 2 Blood Products Given: N/A Drains Used: No Drains Post-Op Condition: Fair Date of Surgery/Procedure: 06/04/17 Time of Surgery/Procedure: 10:00
--- NOTE | 2017-06-04 10:04 | CP.PCM.PN ---
Subjective - Date & Time of Evaluation Date of Evaluation: 06/04/17 Time of Evaluation: 10:01 - Subjective Subjective: PT CURRENTLY NOT IN ROOM. DOWN IN IR FOR PICC LINE INSERTION NOW. PT IS MEDICALLY STABLE AND CLEARED FOR DEBRIDEMENT WITH PODIATRY TODAY AT 2PM. POLYTECHNIC TEACHER WILL F/U WITH PT. WILL ALSO DISCUSS D/C PLANS WITH PT AND POSS JOO. NO FURTHER ORDERS FOR NOW. Objective - Vital Signs/Intake and Output Vital Signs (last 24 hours): Temp Pulse Resp BP Pulse Ox 98.2 F 70 20 109/59 L 98 06/04/17 08:50 06/04/17 08:50 06/04/17 08:50 06/04/17 08:50 06/04/17 08:50 Intake and Output: 06/04/17 06/04/17 06:59 18:59 Intake Total 300 100 Balance 300 100 - Medications Medications: Current Medications Acetaminophen (Tylenol 325mg Tab) 650 mg PO Q6 PRN PRN Reason: Pain, Mild (1-3) Last Admin: 05/31/17 10:50 Dose: 650 mg Acetaminophen (Tylenol 325mg Tab) 650 mg PO Q6 PRN PRN Reason: Fever >100.4 F Aspirin (Ecotrin) 81 mg PO DAILY [facility] Last Admin: 06/04/17 09:06 Dose: Not Given Brimonidine Tartrate (Alphagan 0.2% Opht) 0 ml OU Q12 [facility] Last Admin: 06/04/17 09:06 Dose: Not Given Cinacalcet (Sensipar) 60 mg PO DAILY [facility] Last Admin: 06/04/17 09:07 Dose: Not Given Clopidogrel Bisulfate (Plavix) 75 mg PO DAILY [facility] Last Admin: 06/04/17 09:06 Dose: Not Given Collagenase (Santyl) 0 gm EXT TID [facility] Last Admin: 06/04/17 09:07 Dose: Not Given Epoetin Alonso (Procrit) 10,000 unit IV MWF [facility] Last Admin: 06/03/17 13:21 Dose: 10,000 unit Famotidine (Pepcid) 20 mg PO DAILY [facility] Last Admin: 06/04/17 09:06 Dose: Not Given Heparin Sodium (Porcine) (Heparin) 5,000 units SC Q12 [facility] Last Admin: 06/03/17 10:25 Dose: Not Given Home Med (Nateglinide) 60 mg PO DAILY [facility] Meropenem 500 mg/ Dextrose 100 mls @ 100 mls/hr IVPB Q12H [facility] Last Admin: 06/04/17 04:34 Dose: 100 mls/hr Vancomycin/Sodium Chloride (Vancomycin 1 Gm/Ns 200 Ml) 1 gm in 200 mls @ 133 mls/hr IVPB MWF [facility] Stop: 06/10/17 09:01 Lopinavir/Ritonavir (Kaletra 200-50 Mg) 2 cap PO BID [facility] Last Admin: 06/04/17 09:06 Dose: Not Given Magnesium Citrate (Citrate Of Mag) 300 ml PO DAILY [facility] Last Admin: 06/04/17 09:06 Dose: Not Given Metoprolol Tartrate (Lopressor) 12.5 mg PO BID [facility] Last Admin: 06/04/17 09:06 Dose: Not Given Nystatin (Nystatin Oral Susp) 5 ml PO TID [facility] Last Admin: 06/04/17 09:06 Dose: Not Given Ondansetron HCl (Zofran Inj) 4 mg IVP Q4 PRN PRN Reason: Nausea/Vomiting Last Admin: 05/31/17 10:58 Dose: 4 mg Pantoprazole Sodium (Protonix Ec Tab) 40 mg PO DAILY [facility] Last Admin: 06/04/17 09:07 Dose: Not Given Raltegravir (Isentress) 400 mg PO BID [facility] Last Admin: 06/04/17 09:06 Dose: Not Given Sevelamer Carbonate (Renvela) 800 mg PO TID [facility] Last Admin: 06/04/17 09:07 Dose: Not Given Sodium Hypochlorite (Dakins Solution 0.25%) 0 ml TOP DAILY [facility] Last Admin: 06/04/17 09:06 Dose: Not Given Timolol Maleate (Timoptic 0.5% Ophth Soln) 1 drop OS BID [facility] Last Admin: 06/04/17 09:07 Dose: Not Given Tramadol HCl (Ultram) 25 mg PO TID PRN PRN Reason: Pain, severe (8-10) Last Admin: 06/02/17 10:17 Dose: 25 mg Trimethoprim/Sulfamethoxazole (Bactrim Ds Tab) 1 tab PO [facility] [place] Last Admin: 06/03/17 14:54 Dose: 1 tab - Labs Labs: 06/03/17 06:24 06/03/17 06:24 PT 11.6 SECONDS (9.7-12.2) 05/30/17 08:21 INR 1.0 05/30/17 08:21 APTT 32 SECONDS (21-34) 05/30/17 08:21
[2017-06-04] MEDS ORDERED: Lidocaine 1% Inj (20ml) ONE (13:08)
[2017-06-04] MEDS ORDERED: Bupivacaine 0.5% Inj(30mL) ONE (13:08)
[2017-06-04] MEDS ORDERED: Sodium Chloride 0.9% 1,000 ML IV ONE (13:35)
[2017-06-04] MEDS ORDERED: Midazolam 2 MG/2 ML VIAL ONE (13:39)
[2017-06-04] MEDS ORDERED: Propofol 10 mg/ml Inj (20 ML) ONE (13:39)
[2017-06-04] MEDS ORDERED: Bacitracin Ointment 30 GM TUBE ONE (14:13)
--- NOTE | 2017-06-04 14:26 | PCM.SURG1 ---
Surgeon's Initial Post Op Note - Surgeon's Notes Surgeon: Dr. beaulieu Wood Gluer: Dr. Delgado [id number] Type of Anesthesia: IV Sedation, Local Anesthesia Administered By: martín Pre-Operative Diagnosis: left heel chronic nonhealing ulcer Operative Findings: see dictation Post-Operative Diagnosis: same Operation Performed: left heel wound debridement Specimen/Specimens Removed: soft tissue Estimated Blood Loss: EBL {In ML}: 2 Blood Products Given: N/A Drains Used: No Drains Post-Op Condition: Good Date of Surgery/Procedure: 06/04/17 Time of Surgery/Procedure: 14:26
[2017-06-04] MEDS ORDERED: Oxycodone/Acetaminophen 5/325 mg Tab PO PRN (14:32)
[2017-06-04] MEDS ORDERED: HYDROmorphone 0.5 mg/0.5 ml ISec IVP PRN (14:44)
[2017-06-04] MEDS: Sodium Chloride 0.9% 1,000 ML IV SCH ×2 (16:00→23:45)
--- NOTE | 2017-06-04 18:58 | CP.PCM.PN ---
Subjective - Date & Time of Evaluation Date of Evaluation: 06/04/17 Time of Evaluation: 14:00 - Subjective Subjective: SEEN ON RENAL F/U ON HD M W F RECIEVED PICC LINE .. A/P L FOOT DEBRIDEBMENT ALL PREVIOUS EMR REVIEWED Objective - Vital Signs/Intake and Output Vital Signs (last 24 hours): Temp Pulse Resp BP Pulse Ox 98.0 F 62 11 L 125/61 100 06/04/17 15:30 06/04/17 15:30 06/04/17 15:30 06/04/17 15:30 06/04/17 15:30 Intake and Output: 06/04/17 06/04/17 06:59 18:59 Intake Total 300 100 Balance 300 100 - Medications Medications: Current Medications Acetaminophen (Tylenol 325mg Tab) 650 mg PO Q6 PRN PRN Reason: Pain, Mild (1-3) Last Admin: 05/31/17 10:50 Dose: 650 mg Acetaminophen (Tylenol 325mg Tab) 650 mg PO Q6 PRN PRN Reason: Fever >100.4 F Acetaminophen (Tylenol 325mg Tab) 650 mg PO Q6 PRN PRN Reason: Pain, Mild (1-3) Aspirin (Ecotrin) 81 mg PO DAILY [facility] Last Admin: 06/04/17 09:06 Dose: Not Given Brimonidine Tartrate (Alphagan 0.2% Opht) 0 ml OU Q12 [facility] Last Admin: 06/04/17 09:06 Dose: Not Given Cinacalcet (Sensipar) 60 mg PO DAILY [facility] Last Admin: 06/04/17 09:07 Dose: Not Given Clopidogrel Bisulfate (Plavix) 75 mg PO DAILY [facility] Last Admin: 06/04/17 09:06 Dose: Not Given Collagenase (Santyl) 0 gm EXT TID [facility] Last Admin: 06/04/17 17:36 Dose: Not Given Epoetin Alonso (Procrit) 10,000 unit IV MWF [facility] Last Admin: 06/03/17 13:21 Dose: 10,000 unit Famotidine (Pepcid) 20 mg PO DAILY [facility] Last Admin: 06/04/17 09:06 Dose: Not Given Heparin Sodium (Porcine) (Heparin) 5,000 units SC Q12 [facility] Last Admin: 06/03/17 10:25 Dose: Not Given Home Med (Nateglinide) 60 mg PO DAILY [facility] Meropenem 500 mg/ Dextrose 100 mls @ 100 mls/hr IVPB Q12H [facility] Last Admin: 06/04/17 16:51 Dose: 100 mls/hr Vancomycin HCl 1 gm/ Sodium (Chloride) 250 mls @ 133 mls/hr IVPB MWF [facility] Stop: 06/10/17 09:01 Sodium Chloride (Sodium Chloride 0.9%) 1,000 mls @ 100 mls/hr IV .Q10H [facility] Lopinavir/Ritonavir (Kaletra 200-50 Mg) 2 cap PO BID [facility] Last Admin: 06/04/17 17:33 Dose: 2 cap Magnesium Citrate (Citrate Of Mag) 300 ml PO DAILY [facility] Last Admin: 06/04/17 09:06 Dose: Not Given Metoprolol Tartrate (Lopressor) 12.5 mg PO BID [facility] Last Admin: 06/04/17 17:32 Dose: 12.5 mg Nystatin (Nystatin Oral Susp) 5 ml PO TID [facility] Last Admin: 06/04/17 17:33 Dose: 5 ml Ondansetron HCl (Zofran Inj) 4 mg IVP Q4 PRN PRN Reason: Nausea/Vomiting Last Admin: 05/31/17 10:58 Dose: 4 mg Oxycodone/Acetaminophen (Percocet 5/325 Mg Tab) 1 tab PO Q4H PRN PRN Reason: Pain, moderate (4-7) Stop: 06/07/17 14:33 Pantoprazole Sodium (Protonix Ec Tab) 40 mg PO DAILY [facility] Last Admin: 06/04/17 09:07 Dose: Not Given Raltegravir (Isentress) 400 mg PO BID [facility] Last Admin: 06/04/17 17:32 Dose: 400 mg Sevelamer Carbonate (Renvela) 800 mg PO TID [facility] Last Admin: 06/04/17 17:32 Dose: 800 mg Sodium Hypochlorite (Dakins Solution 0.25%) 0 ml TOP DAILY [facility] Last Admin: 06/04/17 09:06 Dose: Not Given Timolol Maleate (Timoptic 0.5% Ophth Soln) 1 drop OS BID [facility] Last Admin: 06/04/17 17:34 Dose: 1 applic Tramadol HCl (Ultram) 25 mg PO TID PRN PRN Reason: Pain, severe (8-10) Last Admin: 06/02/17 10:17 Dose: 25 mg Trimethoprim/Sulfamethoxazole (Bactrim Ds Tab) 1 tab PO MWF [facility] Last Admin: 06/03/17 14:54 Dose: 1 tab - Labs Labs: 06/03/17 06:24 06/03/17 06:24 PT 11.6 SECONDS (9.7-12.2) 05/30/17 08:21 INR 1.0 05/30/17 08:21 APTT 32 SECONDS (21-34) 05/30/17 08:21 Assessment and Plan - Assessment and Plan (Free Text) Assessment: ESRD ON HD M W F .. TO BE C/O ANEMIA OF CKD .. H/H STABLE MULTIPLE CO MORBIDITIES S/P PICC LINE .. NEEDS IVAB FOR 8 WEEKS PER ID S/P DEBRIDENMENT OF L FOOT OSTEOMEYLITIS P : C/O CURRENT CARE C/O PRESENT MANAGEMENT TO TRANSFER [facility]
--- NOTE | 2017-06-04 20:29 | CP.PCM.PN ---
Subjective - Date & Time of Evaluation Date of Evaluation: 06/04/17 Time of Evaluation: 20:28 - Subjective Subjective: pt underwent wound debrima today doing ok c/o pain stable vitals chest clear will f/u Objective - Vital Signs/Intake and Output Vital Signs (last 24 hours): Temp Pulse Resp BP Pulse Ox 98.0 F 62 11 L 125/61 100 06/04/17 15:30 06/04/17 15:30 06/04/17 15:30 06/04/17 15:30 06/04/17 15:30 Intake and Output: 06/04/17 06/05/17 18:59 06:59 Intake Total 100 Balance 100 - Medications Medications: Current Medications Acetaminophen (Tylenol 325mg Tab) 650 mg PO Q6 PRN PRN Reason: Pain, Mild (1-3) Last Admin: 05/31/17 10:50 Dose: 650 mg Acetaminophen (Tylenol 325mg Tab) 650 mg PO Q6 PRN PRN Reason: Fever >100.4 F Acetaminophen (Tylenol 325mg Tab) 650 mg PO Q6 PRN PRN Reason: Pain, Mild (1-3) Aspirin (Ecotrin) 81 mg PO DAILY [facility] Last Admin: 06/04/17 09:06 Dose: Not Given Brimonidine Tartrate (Alphagan 0.2% Opht) 0 ml OU Q12 [facility] Last Admin: 06/04/17 09:06 Dose: Not Given Cinacalcet (Sensipar) 60 mg PO DAILY [facility] Last Admin: 06/04/17 09:07 Dose: Not Given Clopidogrel Bisulfate (Plavix) 75 mg PO DAILY [facility] Last Admin: 06/04/17 09:06 Dose: Not Given Collagenase (Santyl) 0 gm EXT TID [facility] Last Admin: 06/04/17 17:36 Dose: Not Given Epoetin Alonso (Procrit) 10,000 unit IV MWF [facility] Last Admin: 06/03/17 13:21 Dose: 10,000 unit Famotidine (Pepcid) 20 mg PO DAILY [facility] Last Admin: 06/04/17 09:06 Dose: Not Given Heparin Sodium (Porcine) (Heparin) 5,000 units SC Q12 [facility] Last Admin: 06/03/17 10:25 Dose: Not Given Home Med (Nateglinide) 60 mg PO DAILY [facility] Meropenem 500 mg/ Dextrose 100 mls @ 100 mls/hr IVPB Q12H [facility] Last Admin: 06/04/17 16:51 Dose: 100 mls/hr Vancomycin HCl 1 gm/ Sodium (Chloride) 250 mls @ 133 mls/hr IVPB MWF [facility] Stop: 06/10/17 09:01 Sodium Chloride (Sodium Chloride 0.9%) 1,000 mls @ 100 mls/hr IV .Q10H [facility] Lopinavir/Ritonavir (Kaletra 200-50 Mg) 2 cap PO BID [facility] Last Admin: 06/04/17 17:33 Dose: 2 cap Magnesium Citrate (Citrate Of Mag) 300 ml PO DAILY [facility] Last Admin: 06/04/17 09:06 Dose: Not Given Metoprolol Tartrate (Lopressor) 12.5 mg PO BID [facility] Last Admin: 06/04/17 17:32 Dose: 12.5 mg Nystatin (Nystatin Oral Susp) 5 ml PO TID [facility] Last Admin: 06/04/17 17:33 Dose: 5 ml Ondansetron HCl (Zofran Inj) 4 mg IVP Q4 PRN PRN Reason: Nausea/Vomiting Last Admin: 05/31/17 10:58 Dose: 4 mg Oxycodone/Acetaminophen (Percocet 5/325 Mg Tab) 1 tab PO Q4H PRN PRN Reason: Pain, moderate (4-7) Stop: 06/07/17 14:33 Pantoprazole Sodium (Protonix Ec Tab) 40 mg PO DAILY [facility] Last Admin: 06/04/17 09:07 Dose: Not Given Raltegravir (Isentress) 400 mg PO BID [facility] Last Admin: 06/04/17 17:32 Dose: 400 mg Sevelamer Carbonate (Renvela) 800 mg PO TID [facility] Last Admin: 06/04/17 17:32 Dose: 800 mg Sodium Hypochlorite (Dakins Solution 0.25%) 0 ml TOP DAILY [facility] Last Admin: 06/04/17 09:06 Dose: Not Given Timolol Maleate (Timoptic 0.5% Ophth Soln) 1 drop OS BID [facility] Last Admin: 06/04/17 17:34 Dose: 1 applic Tramadol HCl (Ultram) 25 mg PO TID PRN PRN Reason: Pain, severe (8-10) Last Admin: 06/02/17 10:17 Dose: 25 mg Trimethoprim/Sulfamethoxazole (Bactrim Ds Tab) 1 tab PO MWF [facility] Last Admin: 06/03/17 14:54 Dose: 1 tab - Labs Labs: 06/03/17 06:24 06/03/17 06:24 PT 11.6 SECONDS (9.7-12.2) 05/30/17 08:21 INR 1.0 05/30/17 08:21 APTT 32 SECONDS (21-34) 05/30/17 08:21
[2017-06-05] MEDS: Meropenem 500 MG in Dextrose 5% In Water 100 ML IVPB SCH ×2 (04:00→16:00)
[2017-06-05] MEDS: Magnesium Citrate Oral SOL (300 ml) PO SCH ×2 (08:41→11:56)
[2017-06-05] MEDS: Lopinavir/Ritonavir Tab PO SCH ×3 (08:42→18:40)
[2017-06-05] MEDS: Pantoprazole 40 mg EC Tab PO SCH ×2 (08:44→11:59)
[2017-06-05] MEDS: Tmp-Smz 800 mg-160 mg DS Tab PO SCH (08:44)
[2017-06-05] MEDS: Epoetin Alfa 10,000 unit/ml Dialysis IV SCH (11:13)
[2017-06-05] MEDS: Brimonidine 0.2% Opth Sol (5ml) OU SCH ×2 (11:56→21:32)
[2017-06-05] MEDS: Dakin's Topical 0.25%-Half Strength (480 ml) TOP SCH (11:57)
[2017-06-05] MEDS: Nystatin 100,000 Units/ml Oral Susp 5 ml UD PO SCH ×3 (11:59→18:40)
[2017-06-05] MEDS: Sodium Chloride 0.9% 1,000 ML IV SCH ×2 (12:00→20:59)
[2017-06-05] MEDS: Collagenase 250 Units/gm Ointment(30 gm) EXT SCH ×3 (12:00→18:42)
--- NOTE | 2017-06-05 12:06 | CP.PCM.PN ---
Subjective - Date & Time of Evaluation Date of Evaluation: 06/05/17 Time of Evaluation: 07:00 - Subjective Subjective: s/p debridement IV rx in progress Bone scan reportedly neg cont rx for min 3 weeks then re-evaluate Objective - Vital Signs/Intake and Output Vital Signs (last 24 hours): Temp Pulse Resp BP Pulse Ox 97.7 F 65 17 149/78 100 06/05/17 09:16 06/05/17 09:16 06/05/17 09:16 06/05/17 11:46 06/05/17 09:16 Intake and Output: 06/05/17 06/05/17 06:59 18:59 Intake Total 1670 Balance 1670 - Medications Medications: Current Medications Acetaminophen (Tylenol 325mg Tab) 650 mg PO Q6 PRN PRN Reason: Pain, Mild (1-3) Last Admin: 05/31/17 10:50 Dose: 650 mg Acetaminophen (Tylenol 325mg Tab) 650 mg PO Q6 PRN PRN Reason: Fever >100.4 F Acetaminophen (Tylenol 325mg Tab) 650 mg PO Q6 PRN PRN Reason: Pain, Mild (1-3) Aspirin (Ecotrin) 81 mg PO DAILY [facility] Last Admin: 06/05/17 11:57 Dose: Not Given Brimonidine Tartrate (Alphagan 0.2% Opht) 0 ml OU Q12 [facility] Last Admin: 06/05/17 11:56 Dose: Not Given Cinacalcet (Sensipar) 60 mg PO DAILY [facility] Last Admin: 06/05/17 12:00 Dose: Not Given Clopidogrel Bisulfate (Plavix) 75 mg PO DAILY [facility] Last Admin: 06/05/17 11:59 Dose: Not Given Collagenase (Santyl) 0 gm EXT TID [facility] Last Admin: 06/05/17 12:00 Dose: Not Given Epoetin Alonso (Procrit) 10,000 unit IV [facility] [place] [facility] Last Admin: 06/05/17 11:13 Dose: 10,000 unit Famotidine (Pepcid) 20 mg PO DAILY [facility] Last Admin: 06/05/17 11:59 Dose: Not Given Heparin Sodium (Porcine) (Heparin) 5,000 units SC Q12 [facility] Last Admin: 06/03/17 10:25 Dose: Not Given Heparin Sodium (Porcine) (Heparin) 6,800 units IVP [facility] [place] Last Admin: 06/05/17 12:00 Dose: 6,800 units Home Med (Nateglinide) 60 mg PO DAILY [facility] Meropenem 500 mg/ Dextrose 100 mls @ 100 mls/hr IVPB Q12H [facility] Last Admin: 06/05/17 04:00 Dose: 100 mls/hr Vancomycin HCl 1 gm/ Sodium (Chloride) 250 mls @ 133 mls/hr IVPB [facility] [place] [facility] Stop: 06/10/17 09:01 Last Admin: 06/05/17 12:01 Dose: Not Given Sodium Chloride (Sodium Chloride 0.9%) 1,000 mls @ 100 mls/hr IV .Q10H [facility] Last Admin: 06/05/17 12:00 Dose: Not Given Lopinavir/Ritonavir (Kaletra 200-50 Mg) 2 cap PO BID [facility] Last Admin: 06/05/17 11:58 Dose: Not Given Magnesium Citrate (Citrate Of Mag) 300 ml PO DAILY [facility] Last Admin: 06/05/17 11:56 Dose: Not Given Metoprolol Tartrate (Lopressor) 12.5 mg PO BID [facility] Last Admin: 06/05/17 11:58 Dose: Not Given Nystatin (Nystatin Oral Susp) 5 ml PO TID [facility] Last Admin: 06/05/17 11:59 Dose: Not Given Ondansetron HCl (Zofran Inj) 4 mg IVP Q4 PRN PRN Reason: Nausea/Vomiting Last Admin: 05/31/17 10:58 Dose: 4 mg Oxycodone/Acetaminophen (Percocet 5/325 Mg Tab) 1 tab PO Q4H PRN PRN Reason: Pain, moderate (4-7) Stop: 06/07/17 14:33 Last Admin: 06/05/17 11:36 Dose: 1 tab Pantoprazole Sodium (Protonix Ec Tab) 40 mg PO DAILY [facility] Last Admin: 06/05/17 11:59 Dose: Not Given Raltegravir (Isentress) 400 mg PO BID [facility] Last Admin: 06/05/17 11:58 Dose: Not Given Sevelamer Carbonate (Renvela) 800 mg PO TID [facility] Last Admin: 06/05/17 12:00 Dose: Not Given Sodium Hypochlorite (Dakins Solution 0.25%) 0 ml TOP DAILY [facility] Last Admin: 06/05/17 11:57 Dose: Not Given Timolol Maleate (Timoptic 0.5% Ophth Soln) 1 drop OS BID [facility] Last Admin: 06/05/17 12:00 Dose: Not Given Tramadol HCl (Ultram) 25 mg PO TID PRN PRN Reason: Pain, severe (8-10) Last Admin: 06/02/17 10:17 Dose: 25 mg Trimethoprim/Sulfamethoxazole (Bactrim Ds Tab) 1 tab PO MWF [facility] Last Admin: 06/05/17 08:44 Dose: 1 tab - Labs Labs: 06/03/17 06:24 06/03/17 06:24 PT 11.6 SECONDS (9.7-12.2) 05/30/17 08:21 INR 1.0 05/30/17 08:21 APTT 32 SECONDS (21-34) 05/30/17 08:21 - Constitutional Appears: Non-toxic - Head Exam Head Exam: NORMOCEPHALIC - Eye Exam Eye Exam: PERRL - ENT Exam ENT Exam: Mucous Membranes Dry - Neck Exam Neck Exam: absent: Lymphadenopathy - Respiratory Exam Respiratory Exam: Decreased Breath Sounds - Cardiovascular Exam Cardiovascular Exam: REGULAR RHYTHM - GI/Abdominal Exam GI & Abdominal Exam: Distended, Soft - Rectal Exam Rectal Exam: Deferred - Exam Exam: NORMAL INSPECTION - Extremities Exam Extremities Exam: absent: Pedal Edema - Back Exam Back Exam: absent: CVA tenderness (L), CVA tenderness (R) - Neurological Exam Neurological Exam: Alert, Awake, Oriented x3 Assessment and Plan (1) Foot ulcer, left Status: Acute (2) Bandemia Status: Acute
--- NOTE | 2017-06-05 12:23 | SPECPROC ---
PROCEDURE: Date of procedure: 06/04/2017 Procedure: 1. Placement of a right arm midline PICC with ultrasound and fluoroscopic guidance, CPT 54345 2. PICC tip confirmation with spot radiograph and is in the brachial vein Medications: 2cc 1 percent lidocaine Total Fluoro time: 30 seconds Radiation: 4.2 MGy EBL: 2 cc HISTORY: Poor venous access, renal failure TECHNIQUE: Following informed consent and procedure time-out, the patient was placed supine on the interventional table and the right arm prepped and draped in the usual sterile fashion. Fluoroscopic image showed right subclavian vein stent. Ultrasound showed a small but patent and compressible right brachial vein. The basilic vein is not identified. There is a failed right arm transposed brachial basilic AV fistula. After the skin was anesthetized with lidocaine, the basilic vein was accessed with micro micropuncture technique using ultrasound guidance. A guidewire was then advanced under fluoroscopic guidance into the vein. There is difficulty advancing guidewire centrally secondary to the axillary vein stenosis and possible occlusion of the subclavian. The length of the single-lumen 4 Khmer PICC was trimmed to 10 centimeters and advanced through a peel-away sheath. The PICC was position with tip of PICC confirm a spot radiograph the brachial vein. The PICC was secured to the patient's skin. The PICC was flushed. A biopatch and sterile dressing was applied. 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 Unable to advance the PICC centrally. The single-lumen PICC was trimmed to an centimeters in position with tip in the brachial. The PICC may be used.
--- NOTE | 2017-06-05 12:36 | CP.PCM.PN ---
Subjective - Date & Time of Evaluation Date of Evaluation: 06/05/17 Time of Evaluation: 12:32 - Subjective Subjective: PT IN DIALYSIS. UNABLE TO EVAL PT AT THIS TIME. BONE SCAN REVIEWED AND NEG FOR OM (SEE OFFICIAL REPORT). DISCUSSED PLAN FOR IV ABX WITH DR. ALBERTO AND PT TO CONTINUE IV MEROPENEM 500 MG IV Q12 FOR 3 MORE WEEKS. SP PICC INSERTION AND LEFT HEEL WOUND DEBRIDEMENT YESTERDAY. WILL D/C TO [facility] ONCE PT IS CLEARED BY PODIATRY TEAM. LINER HELPER TO F/U FOR APPROPRIATE D/C PLAN. NO FURTHER ORDERS AT THIS TIME. Objective - Vital Signs/Intake and Output Vital Signs (last 24 hours): Temp Pulse Resp BP Pulse Ox 98 F 58 L 16 112/56 L 100 06/05/17 12:15 06/05/17 12:15 06/05/17 12:15 06/05/17 12:15 06/05/17 12:15 Intake and Output: 06/05/17 06/05/17 06:59 18:59 Intake Total 1670 Balance 1670 - Medications Medications: Current Medications Acetaminophen (Tylenol 325mg Tab) 650 mg PO Q6 PRN PRN Reason: Pain, Mild (1-3) Last Admin: 05/31/17 10:50 Dose: 650 mg Acetaminophen (Tylenol 325mg Tab) 650 mg PO Q6 PRN PRN Reason: Fever >100.4 F Acetaminophen (Tylenol 325mg Tab) 650 mg PO Q6 PRN PRN Reason: Pain, Mild (1-3) Aspirin (Ecotrin) 81 mg PO DAILY [facility] Last Admin: 06/05/17 11:57 Dose: Not Given Brimonidine Tartrate (Alphagan 0.2% Opht) 0 ml OU Q12 [facility] Last Admin: 06/05/17 11:56 Dose: Not Given Cinacalcet (Sensipar) 60 mg PO DAILY [facility] Last Admin: 06/05/17 12:00 Dose: Not Given Clopidogrel Bisulfate (Plavix) 75 mg PO DAILY [facility] Last Admin: 06/05/17 11:59 Dose: Not Given Collagenase (Santyl) 0 gm EXT TID [facility] Last Admin: 06/05/17 12:00 Dose: Not Given Epoetin Alonso (Procrit) 10,000 unit IV MWF [facility] Last Admin: 06/05/17 11:13 Dose: 10,000 unit Famotidine (Pepcid) 20 mg PO DAILY [facility] Last Admin: 06/05/17 11:59 Dose: Not Given Heparin Sodium (Porcine) (Heparin) 5,000 units SC Q12 [facility] Last Admin: 06/03/17 10:25 Dose: Not Given Heparin Sodium (Porcine) (Heparin) 6,800 units IVP [facility] [place] Last Admin: 06/05/17 12:00 Dose: 6,800 units Home Med (Nateglinide) 60 mg PO DAILY [facility] Meropenem 500 mg/ Dextrose 100 mls @ 100 mls/hr IVPB Q12H [facility] Last Admin: 06/05/17 04:00 Dose: 100 mls/hr Vancomycin HCl 1 gm/ Sodium (Chloride) 250 mls @ 133 mls/hr IVPB [facility] Stop: 06/10/17 09:01 Last Admin: 06/05/17 12:01 Dose: Not Given Sodium Chloride (Sodium Chloride 0.9%) 1,000 mls @ 100 mls/hr IV .Q10H [facility] Last Admin: 06/05/17 12:00 Dose: Not Given Lopinavir/Ritonavir (Kaletra 200-50 Mg) 2 cap PO BID [facility] Last Admin: 06/05/17 11:58 Dose: Not Given Magnesium Citrate (Citrate Of Mag) 300 ml PO DAILY [facility] Last Admin: 06/05/17 11:56 Dose: Not Given Metoprolol Tartrate (Lopressor) 12.5 mg PO BID [facility] Last Admin: 06/05/17 11:58 Dose: Not Given Nystatin (Nystatin Oral Susp) 5 ml PO TID [facility] Last Admin: 06/05/17 11:59 Dose: Not Given Ondansetron HCl (Zofran Inj) 4 mg IVP Q4 PRN PRN Reason: Nausea/Vomiting Last Admin: 05/31/17 10:58 Dose: 4 mg Oxycodone/Acetaminophen (Percocet 5/325 Mg Tab) 1 tab PO Q4H PRN PRN Reason: Pain, moderate (4-7) Stop: 06/07/17 14:33 Last Admin: 06/05/17 11:36 Dose: 1 tab Pantoprazole Sodium (Protonix Ec Tab) 40 mg PO DAILY [facility] Last Admin: 06/05/17 11:59 Dose: Not Given Raltegravir (Isentress) 400 mg PO BID [facility] Last Admin: 06/05/17 11:58 Dose: Not Given Sevelamer Carbonate (Renvela) 800 mg PO TID [facility] Last Admin: 06/05/17 12:00 Dose: Not Given Sodium Hypochlorite (Dakins Solution 0.25%) 0 ml TOP DAILY [facility] Last Admin: 06/05/17 11:57 Dose: Not Given Timolol Maleate (Timoptic 0.5% Oph Soln) 1 drop OS BID [facility] Last Admin: 06/05/17 12:00 Dose: Not Given Tramadol HCl (Ultram) 25 mg PO TID PRN PRN Reason: Pain, severe (8-10) Last Admin: 06/02/17 10:17 Dose: 25 mg Trimethoprim/Sulfamethoxazole (Bactrim Ds Tab) 1 tab PO F [facility] Last Admin: 06/05/17 08:44 Dose: 1 tab - Labs Labs: 06/03/17 06:24 06/03/17 06:24 PT 11.6 SECONDS (9.7-12.2) 05/30/17 08:21 INR 1.0 05/30/17 08:21 APTT 32 SECONDS (21-34) 05/30/17 08:21
--- NOTE | 2017-06-05 13:18 | CP.PCM.PN ---
Subjective - Date & Time of Evaluation Date of Evaluation: 06/05/17 Time of Evaluation: 11:45 - Subjective Subjective: Podiatry: Patient seen along with resident Dr Delgado. Patient had debridement of ulceration left foot yesterday. The wound was redressed. There is still some necrotic tissue and we will order santyl to assist with additional debridement. Patient is comfortable and was seen while in dialysis. To continue daily wound care as ordered. Objective - Vital Signs/Intake and Output Vital Signs (last 24 hours): Temp Pulse Resp BP Pulse Ox 98 F 58 L 16 112/56 L 100 06/05/17 12:15 06/05/17 12:15 06/05/17 12:15 06/05/17 12:15 06/05/17 12:15 Intake and Output: 06/05/17 06/05/17 06:59 18:59 Intake Total 1670 Balance 1670 - Medications Medications: Current Medications Acetaminophen (Tylenol 325mg Tab) 650 mg PO Q6 PRN PRN Reason: Fever >100.4 F Acetaminophen (Tylenol 325mg Tab) 650 mg PO Q6 PRN PRN Reason: Pain, Mild (1-3) Aspirin (Ecotrin) 81 mg PO DAILY [facility] Last Admin: 06/05/17 11:57 Dose: Not Given Brimonidine Tartrate (Alphagan 0.2% Opht) 0 ml OU Q12 [facility] Last Admin: 06/05/17 11:56 Dose: Not Given Cinacalcet (Sensipar) 60 mg PO DAILY [facility] Last Admin: 06/05/17 12:00 Dose: Not Given Clopidogrel Bisulfate (Plavix) 75 mg PO DAILY [facility] Last Admin: 06/05/17 11:59 Dose: Not Given Collagenase (Santyl) 0 gm EXT TID [facility] Last Admin: 06/05/17 12:00 Dose: Not Given Epoetin Alonso (Procrit) 10,000 unit IV MWF [facility] Last Admin: 06/05/17 11:13 Dose: 10,000 unit Famotidine (Pepcid) 20 mg PO DAILY [facility] Last Admin: 06/05/17 11:59 Dose: Not Given Heparin Sodium (Porcine) (Heparin) 5,000 units SC Q12 [facility] Last Admin: 06/03/17 10:25 Dose: Not Given Heparin Sodium (Porcine) (Heparin) 6,800 units IVP MWF [facility] Last Admin: 06/05/17 12:00 Dose: 6,800 units Home Med (Nateglinide) 60 mg PO DAILY [facility] Meropenem 500 mg/ Dextrose 100 mls @ 100 mls/hr IVPB Q12H [facility] Last Admin: 06/05/17 04:00 Dose: 100 mls/hr Sodium Chloride (Sodium Chloride 0.9%) 1,000 mls @ 100 mls/hr IV .Q10H [facility] Last Admin: 06/05/17 12:00 Dose: Not Given Lopinavir/Ritonavir (Kaletra 200-50 Mg) 2 cap PO BID [facility] Last Admin: 06/05/17 11:58 Dose: Not Given Magnesium Citrate (Citrate Of Mag) 300 ml PO DAILY [facility] Last Admin: 06/05/17 11:56 Dose: Not Given Metoprolol Tartrate (Lopressor) 12.5 mg PO BID [facility] Last Admin: 06/05/17 11:58 Dose: Not Given Nystatin (Nystatin Oral Susp) 5 ml PO TID [facility] Last Admin: 06/05/17 11:59 Dose: Not Given Ondansetron HCl (Zofran Inj) 4 mg IVP Q4 PRN PRN Reason: Nausea/Vomiting Last Admin: 05/31/17 10:58 Dose: 4 mg Oxycodone/Acetaminophen (Percocet 5/325 Mg Tab) 1 tab PO Q4H PRN PRN Reason: Pain, moderate (4-7) Stop: 06/07/17 14:33 Last Admin: 06/05/17 11:36 Dose: 1 tab Pantoprazole Sodium (Protonix Ec Tab) 40 mg PO DAILY [facility] Last Admin: 06/05/17 11:59 Dose: Not Given Raltegravir (Isentress) 400 mg PO BID [facility] Last Admin: 06/05/17 11:58 Dose: Not Given Sevelamer Carbonate (Renvela) 800 mg PO TID [facility] Last Admin: 06/05/17 12:00 Dose: Not Given Sodium Hypochlorite (Dakins Solution 0.25%) 0 ml TOP DAILY [facility] Last Admin: 06/05/17 11:57 Dose: Not Given Timolol Maleate (Timoptic 0.5% Ophth Soln) 1 drop OS BID [facility] Last Admin: 06/05/17 12:00 Dose: Not Given Tramadol HCl (Ultram) 25 mg PO TID PRN PRN Reason: Pain, severe (8-10) Last Admin: 06/02/17 10:17 Dose: 25 mg Trimethoprim/Sulfamethoxazole (Bactrim Ds Tab) 1 tab PO [facility] Last Admin: 06/05/17 08:44 Dose: 1 tab - Labs Labs: 06/03/17 06:24 06/03/17 06:24 PT 11.6 SECONDS (9.7-12.2) 05/30/17 08:21 INR 1.0 05/30/17 08:21 APTT 32 SECONDS (21-34) 05/30/17 08:21
[2017-06-05 16:33] VITALS: RESP 20
--- NOTE | 2017-06-05 20:43 | CP.PCM.PN ---
Subjective - Date & Time of Evaluation Date of Evaluation: 06/05/17 Time of Evaluation: 14:00 - Subjective Subjective: SEEN ON RENAL F/U SEEN ON HD ALL PREVIOUS EMR REVIEWED FOR POSSIBLE TRANSFERE TO [facility] FOR [facility] Objective - Vital Signs/Intake and Output Vital Signs (last 24 hours): Temp Pulse Resp BP Pulse Ox 98.1 F 61 20 124/79 99 06/05/17 15:15 06/05/17 15:15 06/05/17 15:15 06/05/17 15:15 06/05/17 15:15 Intake and Output: 06/05/17 06/06/17 18:59 06:59 Intake Total 500 Output Total 0 Balance 500 - Medications Medications: Current Medications Acetaminophen (Tylenol 325mg Tab) 650 mg PO Q6 PRN PRN Reason: Fever >100.4 F Acetaminophen (Tylenol 325mg Tab) 650 mg PO Q6 PRN PRN Reason: Pain, Mild (1-3) Ascorbic Acid (Vitamin C 500 Mg Tab) 500 mg PO DAILY [facility] Aspirin (Ecotrin) 81 mg PO DAILY [facility] Last Admin: 06/05/17 11:57 Dose: Not Given Brimonidine Tartrate (Alphagan 0.2% Opht) 0 ml OU Q12 [facility] Last Admin: 06/05/17 11:56 Dose: Not Given Cinacalcet (Sensipar) 60 mg PO DAILY [facility] Last Admin: 06/05/17 12:00 Dose: Not Given Clopidogrel Bisulfate (Plavix) 75 mg PO DAILY [facility] Last Admin: 06/05/17 11:59 Dose: Not Given Collagenase (Santyl) 0 gm EXT TID [facility] Last Admin: 06/05/17 18:42 Dose: Not Given Collagenase (Santyl) 0 gm TOP DAILY [facility] Epoetin Alonso (Procrit) 10,000 unit IV MWF [facility] Last Admin: 06/05/17 11:13 Dose: 10,000 unit Famotidine (Pepcid) 20 mg PO DAILY [facility] Last Admin: 06/05/17 11:59 Dose: Not Given Heparin Sodium (Porcine) (Heparin) 5,000 units SC Q12 [facility] Last Admin: 06/03/17 10:25 Dose: Not Given Heparin Sodium (Porcine) (Heparin) 6,800 units IVP MWF [facility] Last Admin: 06/05/17 12:00 Dose: 6,800 units Home Med (Nateglinide) 60 mg PO DAILY [facility] Meropenem 500 mg/ Dextrose 100 mls @ 100 mls/hr IVPB Q12H [facility] Last Admin: 06/05/17 16:00 Dose: 100 mls/hr Sodium Chloride (Sodium Chloride 0.9%) 1,000 mls @ 100 mls/hr IV .Q10H [facility] Last Admin: 06/05/17 12:00 Dose: Not Given Lopinavir/Ritonavir (Kaletra 200-50 Mg) 2 cap PO BID [facility] Last Admin: 06/05/17 18:40 Dose: 2 cap Magnesium Citrate (Citrate Of Mag) 300 ml PO DAILY [facility] Last Admin: 06/05/17 11:56 Dose: Not Given Metoprolol Tartrate (Lopressor) 12.5 mg PO BID [facility] Last Admin: 06/05/17 18:40 Dose: 12.5 mg Nystatin (Nystatin Oral Susp) 5 ml PO TID [facility] Last Admin: 06/05/17 18:40 Dose: 5 ml Ondansetron HCl (Zofran Inj) 4 mg IVP Q4 PRN PRN Reason: Nausea/Vomiting Last Admin: 05/31/17 10:58 Dose: 4 mg Oxycodone/Acetaminophen (Percocet 5/325 Mg Tab) 1 tab PO Q4H PRN PRN Reason: Pain, moderate (4-7) Stop: 06/07/17 14:33 Last Admin: 06/05/17 11:36 Dose: 1 tab Pantoprazole Sodium (Protonix Ec Tab) 40 mg PO DAILY [facility] Last Admin: 06/05/17 11:59 Dose: Not Given Raltegravir (Isentress) 400 mg PO BID [facility] Last Admin: 06/05/17 18:00 Dose: 400 mg Sevelamer Carbonate (Renvela) 800 mg PO TID [facility] Last Admin: 06/05/17 13:28 Dose: 800 mg Sodium Hypochlorite (Dakins Solution 0.25%) 0 ml TOP DAILY [facility] Last Admin: 06/05/17 11:57 Dose: Not Given Timolol Maleate (Timoptic 0.5% Ophth Soln) 1 drop OS BID [facility] Last Admin: 06/05/17 18:50 Dose: 1 applic Tramadol HCl (Ultram) 25 mg PO TID PRN PRN Reason: Pain, severe (8-10) Last Admin: 06/02/17 10:17 Dose: 25 mg Trimethoprim/Sulfamethoxazole (Bactrim Ds Tab) 1 tab PO MWF [facility] Last Admin: 06/05/17 08:44 Dose: 1 tab Vitamin B Complex/Vit C/Folic Acid (Nephro-Carlos) 1 tab PO 0800 [facility] - Labs Labs: 06/03/17 06:24 06/03/17 06:24 PT 11.6 SECONDS (9.7-12.2) 05/30/17 08:21 INR 1.0 05/30/17 08:21 APTT 32 SECONDS (21-34) 05/30/17 08:21 Assessment and Plan - Assessment and Plan (Free Text) Assessment: ESRD ON HD M W F ANEMIA OF CKD ON EPO L LED CELLULITIS .. ON IVAB MULTIPLE MED PROBLEMS P : C/O CURRENT CARE FOR D/C TO SELECT WHEN STABLE
[2017-06-06] MEDS: Meropenem 500 MG in Dextrose 5% In Water 100 ML IVPB SCH ×2 (04:18→17:41)
[2017-06-06] MEDS ORDERED: Multivitamin Vitamin B Complex (Nephro-Vite) Tab PO SCH (08:00)
--- NOTE | 2017-06-06 08:15 | CP.PCM.PN ---
Subjective - Date & Time of Evaluation Date of Evaluation: 05/31/17 Time of Evaluation: 08:15 - Subjective Subjective: Complaining of abdominal pain No nausea vomiting. Currently doing well. We'll continue the current treatment. Objective - Vital Signs/Intake and Output Vital Signs (last 24 hours): Temp Pulse Resp BP Pulse Ox 97.9 F 59 L 20 109/61 99 06/06/17 04:45 06/06/17 04:45 06/06/17 04:45 06/06/17 04:45 06/06/17 04:45 - Medications Medications: Current Medications Acetaminophen (Tylenol 325mg Tab) 650 mg PO Q6 PRN PRN Reason: Fever >100.4 F Acetaminophen (Tylenol 325mg Tab) 650 mg PO Q6 PRN PRN Reason: Pain, Mild (1-3) Ascorbic Acid (Vitamin C 500 Mg Tab) 500 mg PO DAILY [facility] Aspirin (Ecotrin) 81 mg PO DAILY [facility] Last Admin: 06/05/17 11:57 Dose: Not Given Brimonidine Tartrate (Alphagan 0.2% Opht) 0 ml OU Q12 [facility] Last Admin: 06/05/17 21:32 Dose: 1 drop Cinacalcet (Sensipar) 60 mg PO DAILY [facility] Last Admin: 06/05/17 12:00 Dose: Not Given Clopidogrel Bisulfate (Plavix) 75 mg PO DAILY [facility] Last Admin: 06/05/17 11:59 Dose: Not Given Collagenase (Santyl) 0 gm EXT TID [facility] Last Admin: 06/05/17 18:42 Dose: Not Given Collagenase (Santyl) 0 gm TOP DAILY [facility] Epoetin [facility]onso (Procrit) [facility] Last Admin: 06/05/17 11:13 Dose: 10,000 unit Famotidine (Pepcid) 20 mg PO DAILY [facility] Last Admin: 06/05/17 11:59 Dose: Not Given Heparin Sodium (Porcine) (Heparin) 5,000 units SC Q12 [facility] Last Admin: 06/03/17 10:25 Dose: Not Given Heparin Sodium (Porcine) (Heparin) 6,800 units IVP MWF [facility] Last Admin: 06/05/17 12:00 Dose: 6,800 units Home Med (Nateglinide) 60 mg PO DAILY [facility] Meropenem 500 mg/ Dextrose 100 mls @ 100 mls/hr IVPB Q12H [facility] Last Admin: 06/06/17 04:18 Dose: 100 mls/hr Lopinavir/Ritonavir (Kaletra 200-50 Mg) 2 cap PO BID [facility] Last Admin: 06/05/17 18:40 Dose: 2 cap Magnesium Citrate (Citrate Of Mag) 300 ml PO DAILY [facility] Last Admin: 06/05/17 11:56 Dose: Not Given Metoprolol Tartrate (Lopressor) 12.5 mg PO BID [facility] Last Admin: 06/05/17 18:40 Dose: 12.5 mg Nystatin (Nystatin Oral Susp) 5 ml PO TID [facility] Last Admin: 06/05/17 18:40 Dose: 5 ml Ondansetron HCl (Zofran Inj) 4 mg IVP Q4 PRN PRN Reason: Nausea/Vomiting Last Admin: 05/31/17 10:58 Dose: 4 mg Oxycodone/Acetaminophen (Percocet 5/325 Mg Tab) 1 tab PO Q4H PRN PRN Reason: Pain, moderate (4-7) Stop: 06/07/17 14:33 Last Admin: 06/05/17 11:36 Dose: 1 tab Pantoprazole Sodium (Protonix Ec Tab) 40 mg PO DAILY [facility] Last Admin: 06/05/17 11:59 Dose: Not Given Raltegravir (Isentress) 400 mg PO BID [facility] Last Admin: 06/05/17 18:00 Dose: 400 mg Sevelamer Carbonate (Renvela) 800 mg PO TID [facility] Last Admin: 06/05/17 18:00 Dose: 800 mg Sodium Hypochlorite (Dakins Solution 0.25%) 0 ml TOP DAILY [facility] Last Admin: 06/05/17 11:57 Dose: Not Given Timolol Maleate (Timoptic 0.5% Ophth Soln) 1 drop OS BID [facility] Last Admin: 06/05/17 18:50 Dose: 1 applic Tramadol HCl (Ultram) 25 mg PO TID PRN PRN Reason: Pain, severe (8-10) Last Admin: 06/02/17 10:17 Dose: 25 mg Trimethoprim/Sulfamethoxazole (Bactrim Ds Tab) 1 tab PO MWF [facility] Last Admin: 06/05/17 08:44 Dose: 1 tab Vitamin B Complex/Vit C/Folic Acid (Nephro-Carlos) 1 tab PO 0800 [facility] - Labs Labs: 06/03/17 06:24 06/03/17 06:24 PT 11.6 SECONDS (9.7-12.2) 05/30/17 08:21 INR 1.0 05/30/17 08:21 APTT 32 SECONDS (21-34) 05/30/17 08:21
--- NOTE | 2017-06-06 08:17 | CP.PCM.PN ---
Subjective - Date & Time of Evaluation Date of Evaluation: 06/05/17 Time of Evaluation: : - Subjective Subjective: Patient is comfortable. PICC line done. Possibly patient will be planning to go to rehabilitation. Objective - Vital Signs/Intake and Output Vital Signs (last 24 hours): Temp Pulse Resp BP Pulse Ox 97.9 F 59 L 20 109/61 99 06/06/17 04:45 06/06/17 04:45 06/06/17 04:45 06/06/17 04:45 06/06/17 04:45 - Medications Medications: Current Medications Acetaminophen (Tylenol 325mg Tab) 650 mg PO Q6 PRN PRN Reason: Fever >100.4 F Acetaminophen (Tylenol 325mg Tab) 650 mg PO Q6 PRN PRN Reason: Pain, Mild (1-3) Ascorbic Acid (Vitamin C 500 Mg Tab) 500 mg PO DAILY [facility] Aspirin (Ecotrin) 81 mg PO DAILY [facility] Last Admin: 06/05/17 11:57 Dose: Not Given Brimonidine Tartrate (Alphagan 0.2% Opht) 0 ml OU Q12 [facility] Last Admin: 06/05/17 21:32 Dose: 1 drop Cinacalcet (Sensipar) 60 mg PO DAILY [facility] Last Admin: 06/05/17 12:00 Dose: Not Given Clopidogrel Bisulfate (Plavix) 75 mg PO DAILY [facility] Last Admin: 06/05/17 11:59 Dose: Not Given Collagenase (Santyl) 0 gm EXT TID [facility] Last Admin: 06/05/17 18:42 Dose: Not Given Collagenase (Santyl) 0 gm TOP DAILY [facility] Epoetin Alonso (Procrit) 10,000 unit IV MWF [facility] Last Admin: 06/05/17 11:13 Dose: 10,000 unit Famotidine (Pepcid) 20 mg PO DAILY [facility] Last Admin: 06/05/17 11:59 Dose: Not Given Heparin Sodium (Porcine) (Heparin) 5,000 units SC Q12 [facility] Last Admin: 06/03/17 10:25 Dose: Not Given Heparin Sodium (Porcine) (Heparin) 6,800 units IVP MWF [facility] Last Admin: 06/05/17 12:00 Dose: 6,800 units Home Med (Nateglinide) 60 mg PO DAILY [facility] Meropenem 500 mg/ Dextrose 100 mls @ 100 mls/hr IVPB Q12H [facility] Last Admin: 06/06/17 04:18 Dose: 100 mls/hr Lopinavir/Ritonavir (Kaletra 200-50 Mg) 2 cap PO BID [facility] Last Admin: 06/05/17 18:40 Dose: 2 cap Magnesium Citrate (Citrate Of Mag) 300 ml PO DAILY [facility] Last Admin: 06/05/17 11:56 Dose: Not Given Metoprolol Tartrate (Lopressor) 12.5 mg PO BID [facility] Last Admin: 06/05/17 18:40 Dose: 12.5 mg Nystatin (Nystatin Oral Susp) 5 ml PO TID [facility] Last Admin: 06/05/17 18:40 Dose: 5 ml Ondansetron HCl (Zofran Inj) 4 mg IVP Q4 PRN PRN Reason: Nausea/Vomiting Last Admin: 05/31/17 10:58 Dose: 4 mg Oxycodone/Acetaminophen (Percocet 5/325 Mg Tab) 1 tab PO Q4H PRN PRN Reason: Pain, moderate (4-7) Stop: 06/07/17 14:33 Last Admin: 06/05/17 11:36 Dose: 1 tab Pantoprazole Sodium (Protonix Ec Tab) 40 mg PO DAILY [facility] Last Admin: 06/05/17 11:59 Dose: Not Given Raltegravir (Isentress) 400 mg PO BID [facility] Last Admin: 06/05/17 18:00 Dose: 400 mg Sevelamer Carbonate (Renvela) 800 mg PO TID [facility] Last Admin: 06/05/17 18:00 Dose: 800 mg Sodium Hypochlorite (Dakins Solution 0.25%) 0 ml TOP DAILY [facility] Last Admin: 06/05/17 11:57 Dose: Not Given Timolol Maleate (Timoptic 0.5% Ophth Soln) 1 drop OS BID [facility] Last Admin: 06/05/17 18:50 Dose: 1 applic Tramadol HCl (Ultram) 25 mg PO TID PRN PRN Reason: Pain, severe (8-10) Last Admin: 06/02/17 10:17 Dose: 25 mg Trimethoprim/Sulfamethoxazole (Bactrim Ds Tab) 1 tab PO MWF [facility] Last Admin: 06/05/17 08:44 Dose: 1 tab Vitamin B Complex/Vit C/Folic Acid (Nephro-Carlos) 1 tab PO 0800 [facility] - Labs Labs: 06/03/17 06:24 06/03/17 06:24 PT 11.6 SECONDS (9.7-12.2) 05/30/17 08:21 INR 1.0 05/30/17 08:21 APTT 32 SECONDS (21-34) 05/30/17 08:21
--- NOTE | 2017-06-06 08:35 | OP ---
PROCEDURE DATE: 06/04/2017 PREOPERATIVE DIAGNOSIS: Left heel chronic nonhealing ulceration. POSTOPERATIVE DIAGNOSIS: Left heel chronic nonhealing ulceration. PROCEDURE: Left heel wound debridement. SURGEON: Gus Parker CORPORATE AFFAIRS MANAGER: Vangie Delgado DPM, PGY-2 TYPE OF ANESTHESIA: IV sedation with local. ANESTHESIA ADMINISTERED BY: Lynda Sanchez MD INDICATION: The patient is a 57-year-old female with the above-mentioned diagnosis. The patient has exhausted all conservative treatment at this time and now requires surgical intervention. The patient signed the consent after careful explanation of risks, benefits, complications and alternatives for surgical procedure. No guarantees were given nor implied. N.p.o. status was confirmed prior to bringing the patient to the operating room. PREPARATION: The patient was brought into the operating room and placed on the operating room table in the prone position. Time-out was performed for identification of the correct patient and procedure. After induction of IV sedation, the lower extremity was then prepped and draped in a normal sterile manner and the procedure began. No tourniquet was used during the procedure. DESCRIPTION OF PROCEDURE: Left heel wound debridement with Misonix. Attention was then directed to the left posterior aspect of the heel where a 5 cm x 6 cm x 0.5 cm ulceration with severe malodor, fibrous base, hyperkeratotic border and no purulence was noted on the left foot on the posterior heel. Using Misonix, the posterior heel ulceration was excisionally debrided of all fibrotic and nonviable tissue until fresh and healthy bleeding granular tissue appeared. About 16 mL of 1:1 mixture of 1% lidocaine plain and 0.5% Marcaine plain was injected in a local block type fashion just proximal to the ulceration site. The wound was then copiously irrigated with sterile normal saline and the wound was then dressed with bacitracin, Adaptic, 4x4 gauze, Kerlix, Coban and Oneal. POSTOPERATIVE CONDITION: The patient tolerated the anesthesia and the procedure well and was escorted to the recovery room with vital signs stable and neurovascular status intact to the left leg. The patient will be monitored closely in the hospital and will follow up with Dr. Alonso as an outpatient. Vangie Delgado DPM
[2017-06-06] MEDS: Pantoprazole 40 mg EC Tab PO SCH (09:43)
[2017-06-06] MEDS: Nystatin 100,000 Units/ml Oral Susp 5 ml UD PO SCH ×3 (09:44→17:38)
[2017-06-06] MEDS: Lopinavir/Ritonavir Tab PO SCH ×2 (09:47→17:46)
[2017-06-06] MEDS: Dakin's Topical 0.25%-Half Strength (480 ml) TOP SCH (09:52)
[2017-06-06] MEDS: Collagenase 250 Units/gm Ointment(30 gm) EXT SCH ×2 (09:53→13:55)
[2017-06-06] MEDS: Brimonidine 0.2% Opth Sol (5ml) OU SCH (09:54)
[2017-06-06] MEDS: Magnesium Citrate Oral SOL (300 ml) PO SCH (09:55)
[2017-06-06] MEDS ORDERED: Collagenase 250 Units/gm Ointment(30 gm) TOP SCH (10:00)
[2017-06-06 11:52] LABS: BASO # 0.1 K/uL (0.0-0.2); BASO % 1.1 % (0.0-2.0); EOS # 0.1 K/uL (0.0-0.7); EOS % 2.4 % (0.0-4.0); HEMATOCRIT 33.8 % (34.0-47.0); LYMPH # 1.2 K/uL (1.0-4.3); LYMPH % 26.3 % (20.0-40.0); MEAN CELL VOLUME 90.4 fL (81.0-99.0); MEAN CORPUSCULAR HGB CONC 30.9 g/dL (33.0-37.0); MEAN PLATELET VOLUME 8.1 fL (7.2-11.7); MONO # 0.6 K/uL (0.0-0.8); MONO % 13.5 % (0.0-10.0); NRBC % 0.5 % (0.0-2.0); RED CELL DISTRIBUTION WIDTH 21.1 % (11.5-14.5); WHITE BLOOD COUNT 4.6 K/uL (4.8-10.8)
[2017-06-06 11:54] LABS: POTASSIUM 4.5 mmol/L (3.6-5.2)
[2017-06-06 11:55] LABS: BILIRUBIN,TOTAL 0.8 mg/dL (0.2-1.3)
[2017-06-06 11:56] LABS: ALB/GLOB RATIO 0.8 (1.0-2.1); CALCIUM 7.9 mg/dl (8.6-10.4); TOTAL PROTEIN 8.1 g/dL (6.3-8.3)
--- NOTE | 2017-06-06 15:31 | CP.PCM.PN ---
Subjective - Date & Time of Evaluation Date of Evaluation: 06/06/17 Time of Evaluation: 03:00 - Subjective Subjective: Podiatry Patient seen at bedside along with Dr Delgado. Redressed left heel. There is less necrosis of the wound. Using santyl ointment at present. Patient advised us that she is being transferred to rehab. I advised her to make arrangements to come to our office sometime next week. Objective - Vital Signs/Intake and Output Vital Signs (last 24 hours): Temp Pulse Resp BP Pulse Ox 98.4 F 59 L 20 105/65 99 06/06/17 09:23 06/06/17 09:45 06/06/17 09:23 06/06/17 09:45 06/06/17 09:45 - Medications Medications: Current Medications Acetaminophen (Tylenol 325mg Tab) 650 mg PO Q6 PRN PRN Reason: Fever >100.4 F Acetaminophen (Tylenol 325mg Tab) 650 mg PO Q6 PRN PRN Reason: Pain, Mild (1-3) Ascorbic Acid (Vitamin C 500 Mg Tab) 500 mg PO DAILY [facility] Last Admin: 06/06/17 10:11 Dose: Not Given Aspirin (Ecotrin) 81 mg PO DAILY [facility] Last Admin: 06/06/17 09:49 Dose: 81 mg Brimonidine Tartrate (Alphagan 0.2% Opht) 0 ml OU Q12 [facility] Last Admin: 06/06/17 09:54 Dose: 1 drop Cinacalcet (Sensipar) 60 mg PO DAILY [facility] Last Admin: 06/06/17 10:56 Dose: Not Given Clopidogrel Bisulfate (Plavix) 75 mg PO DAILY [facility] Last Admin: 06/06/17 09:45 Dose: 75 mg Collagenase (Santyl) 0 gm EXT TID [facility] Last Admin: 06/06/17 13:55 Dose: Not Given Collagenase (Santyl) 0 gm TOP DAILY [facility] Last Admin: 06/06/17 10:55 Dose: Not Given Epoetin Alonso (Procrit) 10,000 unit IV MWF [facility] Last Admin: 06/05/17 11:13 Dose: 10,000 unit Famotidine (Pepcid) 20 mg PO DAILY [facility] Last Admin: 06/06/17 09:44 Dose: 20 mg Heparin Sodium (Porcine) (Heparin) 5,000 units SC Q12 [facility] Last Admin: 06/03/17 10:25 Dose: Not Given Heparin Sodium (Porcine) (Heparin) 6,800 units IVP MWF [facility] Last Admin: 06/05/17 12:00 Dose: 6,800 units Home Med (Nateglinide) 60 mg PO DAILY [facility] Meropenem 500 mg/ Dextrose 100 mls @ 100 mls/hr IVPB Q12H [facility] Last Admin: 06/06/17 04:18 Dose: 100 mls/hr Lopinavir/Ritonavir (Kaletra 200-50 Mg) 2 cap PO BID [facility] Last Admin: 06/06/17 09:47 Dose: 2 cap Magnesium Citrate (Citrate Of Mag) 300 ml PO DAILY [facility] Last Admin: 06/06/17 09:55 Dose: Not Given Metoprolol Tartrate (Lopressor) 12.5 mg PO BID [facility] Last Admin: 06/06/17 10:04 Dose: Not Given Nystatin (Nystatin Oral Susp) 5 ml PO TID [facility] Last Admin: 06/06/17 13:57 Dose: Not Given Ondansetron HCl (Zofran Inj) 4 mg IVP Q4 PRN PRN Reason: Nausea/Vomiting Last Admin: 05/31/17 10:58 Dose: 4 mg Oxycodone/Acetaminophen (Percocet 5/325 Mg Tab) 1 tab PO Q4H PRN PRN Reason: Pain, moderate (4-7) Stop: 06/07/17 14:33 Last Admin: 06/05/17 11:36 Dose: 1 tab Pantoprazole Sodium (Protonix Ec Tab) 40 mg PO DAILY [facility] Last Admin: 06/06/17 09:43 Dose: 40 mg Raltegravir (Isentress) 400 mg PO BID [facility] Last Admin: 06/06/17 09:46 Dose: 400 mg Sevelamer Carbonate (Renvela) 800 mg PO TID [facility] Last Admin: 06/06/17 13:56 Dose: Not Given Sodium Hypochlorite (Dakins Solution 0.25%) 0 ml TOP DAILY [facility] Last Admin: 06/06/17 09:52 Dose: 1 applic Timolol Maleate (Timoptic 0.5% Ophth Soln) 1 drop OS BID [facility] Last Admin: 06/06/17 09:54 Dose: 1 applic Tramadol HCl (Ultram) 25 mg PO TID PRN PRN Reason: Pain, severe (8-10) Last Admin: 06/02/17 10:17 Dose: 25 mg Trimethoprim/Sulfamethoxazole (Bactrim Ds Tab) 1 tab PO MWF [facility] Last Admin: 06/05/17 08:44 Dose: 1 tab Vitamin B Complex/Vit C/Folic Acid (Nephro-Carlos) 1 tab PO 0800 [facility] Last Admin: 06/06/17 09:47 Dose: 1 tab - Labs Labs: 06/06/17 11:46 06/06/17 11:35 PT 11.6 SECONDS (9.7-12.2) 05/30/17 08:21 INR 1.0 05/30/17 08:21 APTT 32 SECONDS (21-34) 05/30/17 08:21
[2017-06-06 15:55] VITALS: BP 101/66; PULSE 63; TEMP 97.9; O2SAT 98
--- NOTE | 2017-06-06 15:59 | CP.PCM.PN ---
Subjective - Date & Time of Evaluation Date of Evaluation: 06/06/17 Time of Evaluation: 15:56 - Subjective Subjective: PT CLEARED FOR D/C TO [facility] TODAY PER DR. REINOSO'S DISCUSSION WITH ME YESTERDAY. DR. BRIAN CLEARED YESTERDAY. PER ID CONTINUE MEROPENEM 500 MG IV Q12 X3 MORE WKS (06/06/17-06/27/17). DISCUSSED WITH PODIATRY TEAM AND DR. WALTERS---F/U IN OFFICE IN 1 WEEK (MAY GO FROM [facility]) AND CONTINUE LOCAL WOUND CARE (PER DR. ALAS CLEAN WOUND WITH NS, APPLY SANTLY ,AND DSD ONCE A DAY) . PT TO BE DC WITH PICC LINE. TO BE PLACED UNDER THE SERVICE OF DR. REINOSO. DISCUSSED ALL PLANS AND CONCERNS WITH PT AND SON STEPHANIE AND HE IS IN AGREEMENT WITH PLAN FOR SAR. TALBERT TO ARRANGE TRANSPORTATION TO [facility] TODAY. NO FURTHER ORDERS. Objective - Vital Signs/Intake and Output Vital Signs (last 24 hours): Temp Pulse Resp BP Pulse Ox 97.9 F 63 20 101/66 98 06/06/17 15:00 06/06/17 15:00 06/06/17 15:00 06/06/17 15:00 06/06/17 15:00 Intake and Output: 06/06/17 06/06/17 06:59 18:59 Intake Total 700 Balance 700 - Medications Medications: Current Medications Acetaminophen (Tylenol 325mg Tab) 650 mg PO Q6 PRN PRN Reason: Fever >100.4 F Acetaminophen (Tylenol 325mg Tab) 650 mg PO Q6 PRN PRN Reason: Pain, Mild (1-3) Ascorbic Acid (Vitamin C 500 Mg Tab) 500 mg PO DAILY [facility] Last Admin: 06/06/17 10:11 Dose: Not Given Aspirin (Ecotrin) 81 mg PO DAILY [facility] Last Admin: 06/06/17 09:49 Dose: 81 mg Brimonidine Tartrate (Alphagan 0.2% Opht) 0 ml OU Q12 [facility] Last Admin: 06/06/17 09:54 Dose: 1 drop Cinacalcet (Sensipar) 60 mg PO DAILY [facility] Last Admin: 06/06/17 10:56 Dose: Not Given Clopidogrel Bisulfate (Plavix) 75 mg PO DAILY [facility] Last Admin: 06/06/17 09:45 Dose: 75 mg Collagenase (Santyl) 0 gm EXT TID [facility] Last Admin: 06/06/17 13:55 Dose: Not Given Collagenase (Santyl) 0 gm TOP DAILY [facility] Last Admin: 06/06/17 10:55 Dose: Not Given Epoetin Alonso (Procrit) 10,000 unit IV MWF [facility] Last Admin: 06/05/17 11:13 Dose: 10,000 unit Famotidine (Pepcid) 20 mg PO DAILY [facility] Last Admin: 06/06/17 09:44 Dose: 20 mg Heparin Sodium (Porcine) (Heparin) 5,000 units SC Q12 [facility] Last Admin: 06/03/17 10:25 Dose: Not Given Heparin Sodium (Porcine) ([facility]) 6,[facility] Last Admin: 06/05/17 12:00 Dose: 6,800 units Home Med (Nateglinide) 60 mg PO DAILY [facility] Meropenem 500 mg/ Dextrose 100 mls @ 100 mls/hr IVPB Q12H [facility] Last Admin: 06/06/17 04:18 Dose: 100 mls/hr Lopinavir/Ritonavir (Kaletra 200-50 Mg) 2 cap PO BID [facility] Last Admin: 06/06/17 09:47 Dose: 2 cap Magnesium Citrate (Citrate Of Mag) 300 ml PO DAILY [facility] Last Admin: 06/06/17 09:55 Dose: Not Given Metoprolol Tartrate (Lopressor) 12.5 mg PO BID [facility] Last Admin: 06/06/17 10:04 Dose: Not Given Nystatin (Nystatin Oral Susp) 5 ml PO TID [facility] Last Admin: 06/06/17 13:57 Dose: Not Given Ondansetron HCl (Zofran Inj) 4 mg IVP Q4 PRN PRN Reason: Nausea/Vomiting Last Admin: 05/31/17 10:58 Dose: 4 mg Oxycodone/Acetaminophen (Percocet 5/325 Mg Tab) 1 tab PO Q4H PRN PRN Reason: Pain, moderate (4-7) Stop: 06/07/17 14:33 Last Admin: 06/05/17 11:36 Dose: 1 tab Pantoprazole Sodium (Protonix Ec Tab) 40 mg PO DAILY [facility] Last Admin: 06/06/17 09:43 Dose: 40 mg Raltegravir (Isentress) 400 mg PO BID [facility] Last Admin: 06/06/17 09:46 Dose: 400 mg Sevelamer Carbonate (Renvela) 800 mg PO TID [facility] Last Admin: 06/06/17 13:56 Dose: Not Given Sodium Hypochlorite (Dakins Solution 0.25%) 0 ml TOP DAILY [facility] Last Admin: 06/06/17 09:52 Dose: 1 applic Timolol Maleate (Timoptic 0.5% Ophth Soln) 1 drop OS BID [facility] Last Admin: 06/06/17 09:54 Dose: 1 applic Tramadol HCl (Ultram) 25 mg PO TID PRN PRN Reason: Pain, severe (8-10) Last Admin: 06/02/17 10:17 Dose: 25 mg Trimethoprim/Sulfamethoxazole (Bactrim Ds Tab) 1 tab PO MWF [facility] Last Admin: 06/05/17 08:44 Dose: 1 tab Vitamin B Complex/Vit C/Folic Acid (Nephro-Carlos) 1 tab PO 0800 [facility] Last Admin: 06/06/17 09:47 Dose: 1 tab - Labs Labs: 06/06/17 11:46 06/06/17 11:35 PT 11.6 SECONDS (9.7-12.2) 05/30/17 08:21 INR 1.0 05/30/17 08:21 APTT 32 SECONDS (21-34) 05/30/17 08:21
--- NOTE | 2017-06-19 22:13 | CP.PCM.PN ---
Subjective - Date & Time of Evaluation Date of Evaluation: 06/03/17 Time of Evaluation: 22:15 - Subjective Subjective: Patient is feeling better. Seen by vascular surgery, nephrology. Seen by also infectious disease. Patient will need at least a 6 weeks of antibiotic. Clinically stable otherwise. Will continue to monitor. Once cleared patient will be possibly cancer the rehabilitation Objective - Vital Signs/Intake and Output Vital Signs (last 24 hours): Temp Pulse Resp BP Pulse Ox 97.9 F 63 20 101/66 98 06/06/17 15:00 06/06/17 15:00 06/06/17 15:00 06/06/17 15:00 06/06/17 15:00 - Labs Labs: 06/06/17 11:46 06/06/17 11:35 PT 11.6 SECONDS (9.7-12.2) 05/30/17 08:21 INR 1.0 05/30/17 08:21 APTT 32 SECONDS (21-34) 05/30/17 08:21
--- NOTE | 2017-06-19 22:13 | CP.PCM.PN ---
Subjective - Date & Time of Evaluation Date of Evaluation: 05/31/17 Time of Evaluation: 22:14 - Subjective Subjective: Patient is feeling better. Seen by vascular surgery, nephrology. Seen by also infectious disease. Patient will need at least a 6 weeks of antibiotic. Clinically stable otherwise. Will continue to monitor. Once cleared patient will be possibly transfer to the rehabilitation Objective - Vital Signs/Intake and Output Vital Signs (last 24 hours): Temp Pulse Resp BP Pulse Ox 97.9 F 63 20 101/66 98 06/06/17 15:00 06/06/17 15:00 06/06/17 15:00 06/06/17 15:00 06/06/17 15:00 - Labs Labs: 06/06/17 11:46 06/06/17 11:35 PT 11.6 SECONDS (9.7-12.2) 05/30/17 08:21 INR 1.0 05/30/17 08:21 APTT 32 SECONDS (21-34) 05/30/17 08:21
--- NOTE | 2017-06-19 22:13 | CP.PCM.DIS ---
Provider - Provider Date of Admission: 05/28/17 11:18 Attending physician: Glenny Reinoso MD Time Spent in preparation of Discharge (in minutes): 45 Hospital Course - Lab Results Lab Results: Micro Results 06/04/17 15:00 Foot - Left Gram Stain - Final 06/04/17 15:00 Foot - Left Wound Culture - Final Proteus Mirabilis 05/28/17 12:45 Blood Blood Culture - Final NO GROWTH AFTER 5 DAYS 05/28/17 12:45 Blood Gram Stain - Final TEST NOT PERFORMED 05/28/17 12:15 Blood Blood Culture - Final NO GROWTH AFTER 5 DAYS 05/28/17 12:15 Blood Gram Stain - Final TEST NOT PERFORMED 05/28/17 10:53 Foot - Left Gram Stain - Final 05/28/17 10:53 Foot - Left Wound Culture - Final Escherichia Coli Proteus Mirabilis Most Recent Lab Values WBC 4.6 K/uL (4.8-10.8) L 06/06/17 11:46 RBC 3.74 Mil/uL (3.80-5.20) L 06/06/17 11:46 Hgb 10.5 g/dL (11.0-16.0) L 06/06/17 11:46 Hct 33.8 % (34.0-47.0) L 06/06/17 11:46 MCV 90.4 fL (81.0-99.0) 06/06/17 11:46 MCH 28.0 pg (27.0-31.0) 06/06/17 11:46 MCHC 30.9 g/dL (33.0-37.0) L 06/06/17 11:46 RDW 21.1 % (11.5-14.5) H 06/06/17 11:46 Plt Count 279 K/uL (130-400) 06/06/17 11:46 MPV 8.1 fL (7.2-11.7) 06/06/17 11:46 Neut % (Auto) 56.7 % (50.0-75.0) 06/06/17 11:46 Lymph % (Auto) 26.3 % (20.0-40.0) 06/06/17 11:46 [place] % (Auto) 13.5 % (0.0-10.0) H 06/06/17 11:46 Eos % (Auto) 2.4 % (0.0-4.0) 06/06/17 11:46 Baso % (Auto) 1.1 % (0.0-2.0) 06/06/17 11:46 Neut # 2.6 K/uL (1.8-7.0) 06/06/17 11:46 Lymph # 1.2 K/uL (1.0-4.3) 06/06/17 11:46 [place] # 0.6 K/uL (0.0-0.8) 06/06/17 11:46 Eos # 0.1 K/uL (0.0-0.7) 06/06/17 11:46 Baso # 0.1 K/uL (0.0-0.2) 06/06/17 11:46 Neutrophils % (Manual) 78 % (50-75) H 05/31/17 09:56 Band Neutrophils % 1 % (0-2) 05/31/17 09:56 Lymphocytes % (Manual) 10 % (20-40) L 05/31/17 09:56 Monocytes % (Manual) 9 % (0-10) 05/31/17 09:56 Eosinophils % (Manual) 2 % (0-4) 05/31/17 09:56 Platelet Estimate Normal (NORMAL) 05/31/17 09:56 Hypochromasia (manual) Slight 05/31/17 09:56 Poikilocytosis (manual Slight 05/31/17 09:56 Anisocytosis (manual) Slight 05/31/17 09:56 Target Cells Slight 05/31/17 09:56 Ovalocytes Slight 05/31/17 09:56 [place] Cells Slight 05/31/17 09:56 PT 11.6 SECONDS (9.7-12.2) 05/30/17 08:21 INR 1.0 05/30/17 08:21 APTT 32 SECONDS (21-34) 05/30/17 08:21 Sodium 133 mmol/L (132-148) 06/06/17 11:35 Potassium 4.5 mmol/L (3.6-5.2) 06/06/17 11:35 Chloride 95 mmol/L (98-107) L 06/06/17 11:35 Carbon Dioxide 27 mmol/L (22-30) 06/06/17 11:35 Anion Gap 16 (10-20) 06/06/17 11:35 BUN 23 mg/dL (7-17) H 06/06/17 11:35 Creatinine 5.2 mg/dL (0.7-1.2) H 06/06/17 11:35 Est GFR ( Amer) 10 06/06/17 11:35 Est GFR (Non-Af Amer) 9 06/06/17 11:35 POC Glucose (mg/dL) 89 mg/dL (65-110) 06/06/17 16:15 Random Glucose 82 mg/dL (65-105) 06/06/17 11:35 Calcium 7.9 mg/dl (8.6-10.4) L 06/06/17 11:35 Total Bilirubin 0.8 mg/dL (0.2-1.3) 06/06/17 11:35 AST 21 U/L (14-36) 06/06/17 11:35 ALT 14 U/L (9-52) 06/06/17 11:35 Alkaline Phosphatase 116 U/L (38-126) 06/06/17 11:35 Total Protein 8.1 g/dL (6.3-8.3) 06/06/17 11:35 Albumin 3.5 g/dL (3.5-5.0) 06/06/17 11:35 Globulin 4.6 gm/dL (2.2-3.9) H 06/06/17 11:35 Albumin/Globulin Ratio 0.8 (1.0-2.1) L 06/06/17 11:35 Beta HCG, Quant < 2.39 mIU/ML 05/30/17 08:21 Absolute Lymphs (Flow) 808 Cells/mcL (850-3900) L 05/30/17 08:21 % CD4 Cells 8 Percent (30-61) L 05/30/17 08:21 Absolute CD4 Count 64 Cells/mcL (490-1740) L 05/30/17 08:21 T-Help/Suppress Ratio 0.20 Ratio (0.86-5.00) L 05/30/17 08:21 % CD8 Cells 41 Percent (12-42) 05/30/17 08:21 Absolute CD8 Count 328 Cells/mcL (180-1170) 05/30/17 08:21 T-Lymph Analys Comment See note 05/30/17 08:21 - Hospital Course Hospital Course: Chief concern: Left heel ulcer foul-smelling History of present illness: 57-year-old female with a history of end-stage renal disease on dialysis, receiving hemodialysis on Saturday. Patient went to see Dr. Alonso the oil well drilling manager today, after examining the patient he suggested that patient has a possibly of left foot ulcer with foul-smelling, infected. Social history adjusted the patient has to go to the emergency room for possible inpatient management. Patient is currently having increasing pain over the leg, foul-smelling discharge noted from the legs especially in the heel. Patient also having some fever like reaction, chills noted. She was on antibiotic from the beginning. Patient has a hemodialysis catheter in the inferior vena cava on the backside. Patient had old shunt in the both upper extremity. Complaining of more pain. No fever or chills at this time. No vomiting or diarrhea. Past medical history: Patient has a history of diabetes, hypertension, renal insufficiency, on dialysis, history of human immunodeficiency virus infection, on medication. Diabetic foot, peripheral vascular disease, high cholesterol and hypertension. Surgical history include right below-knee amputation. Patient also has a multiply AV shunt. Currently having hemodialysis catheter in the inferior vena cava on the backside. Allergies: No known drug allergy Personal history: Nonsmoker nonalcoholic Patient is not bleeding much. Patient is is a hemodialysis regular basis Review of system Currently having no headache, no chest pain or shortness of breath. She denied any history of [place] or stroke in the past. Right below-knee limitation noted. No abdominal pain. Normal BM On examination: Patient is somewhat in pain, no distress. Chest good air entry. Regular. Patient Has a Scar Tissues over the Both Upper Extremities for Old AV Shunt. Hemodialysis Catheter in the Back Noted. Foul-Smelling Ulcer in the Left Leg and the Foot Noted. Right Below-Knee Limitation. Patient's Labs Reviewed WBC Is Normal. Mildly Elevated Neutrophil Count Noted. She Underwent Angiogram, Awaiting Results. Assessment/Merchandise Presentation Associate: 57-year-old Female with a History of End-Stage Degenerative Disease on Dialysis , hypertension, peripheral vascular disease, hiv, diabetes, right below-knee on the dictation. Patient came to the office and hospitalized with the left foot foul-smelling ulcer, infected. Patient is currently admitted, for IV antibiotic. Infectious disease evaluation. Podiatry evaluation. Vascular surgery consultation. Wound consultation. Pain management. Patient is currently also needing hemodialysis, will get nephrology evaluation. Baron infante. Overall prognosis is guarded. Patient is at high risk for a below-knee amputation of the left leg also. patient underwent a vascular procedure Aortofemoral Angiogram with bilateral run-off, selective catheterization of left femoral artery, pathway arthrecetomy of superficial femoralartery, popliteal artery and anterior tibialis artery, balloon angioplasty of superficial femoral artery, popliteal artery and anterior tibialis artery, Drug eluting balloon angioplasty of superficial femoral artery, popliteal artery and anterior tibialis artery, stent placement x 2 in superficial femoral/popliteal artery patient also underwent a left leg, incision, drainage and wound debridement was done patient likely stable. She will need long-term IV antibiotic she will need PICC line. She will be discharged to rehabilitati. Clinical stable. Medications reviewed. Final diagnosis: Cellulitis of the left leg. Ischemic leg. Status post vascularization. End-stage renal disease on dialysis. Chronic HIV infection. Discharge Exam - Head Exam Head Exam: NORMOCEPHALIC Discharge Plan - Follow Up Plan Condition: STABLE Disposition: REHAB FACILITY/REHAB UNIT Instructions: Dialysis Diet (DC), Diabetic Foot Care (DC), Diabetic Hypoglycemia (DC), Diabetes Mellitus Type 2 in Adults (DC), End Stage Kidney Disease (DC) Additional Instructions: -PLACE UNDER THE SERVICE OF DR. REINOSO WHILE AT [facility]---CALL UPON ARRIVAL WITH BED ASSIGNMENT AND FOR ADMITTING ORDERS. -PER DR. LOPEZ (ID) RECOMMENDATIONS FOR THE FOLLOWING ANTIBIOTICS TO BE CONTINUED: MEROPENEM 500 MG IV Q12 HOURS X3 MORE WEEKS (START 06/06/17 AND LAST DOSE TO BE GIVEN ON 06/27/17). -PLEASE HAVE MRS. GREENE FOLLOW UP WITH DR. WALTERS (PODIATRY) IN THE OFFICE IN 1 WEEK (BY 06/13/17)---CALL OFFICE TO ARRANGE VISIT AND ARRANGE TRANSPORTATION TO AND FROM THE OFFICE. -CONTINUE WOUND CARE TO LEFT HEEL PER PODIATRY ORDERS: CLEAN HEEL WOUND WITH NS , APPLY SANTYL, AND APPLY DRY/STERILE DRESSING ONCE A DAY. MAY CHANGE DRESSING PRN IF SOILED. -PHYSICAL THERAPY TOLERATED. -ENCOURAGE OUT OF BED TO CHAIR. -PICC LINE CARE PER FACILITY PROTOCOL. -FALL PRECAUTIONS PER FACILITY PROTOCOL. -CONTINUE DIALYSIS USUAL. -FOR FURTHER ORDERS, CONTACT DR. REINOSO'S OFFICE. -PLEASE CALL STEPHANIE FUNG ON CELL PHONE WHEN PT ARRIVES TO [place] [place]: . Referrals: Tresa Cao MD [Staff Provider] - Tripp Lopez MD [Staff Provider] - Aden Sinclair Jr., MD [Staff Provider] - Glenny Reinoso MD [Staff Provider] - Gus Alonso DPM [Staff Provider] -
== END 2017-06-06 20:12 | DRG 969 ==
LOC: C.ER 10:07 → C.9E 11:18 → C.3T 13:19
PROVIDERS: ADMIT Internal Medicine; ATTEND Internal Medicine
PROC: 5A1D70Z Performance of Urinary Filtration, Intermittent, Less than 6 Hours Per Day (ICD-10-PCS; 2017-05-29)
PROC: 04CL3ZZ Extirpation of Matter from Left Femoral Artery, Percutaneous Approach (ICD-10-PCS; 2017-05-30)
PROC: 047L34Z Dilation of Left Femoral Artery with Drug-eluting Intraluminal Device, Percutaneous Approach (ICD-10-PCS; 2017-05-30)
PROC: 047L3DZ Dilation of Left Femoral Artery with Intraluminal Device, Percutaneous Approach (ICD-10-PCS; 2017-05-30)
PROC: B41DYZZ Fluoroscopy of Aorta and Bilateral Lower Extremity Arteries using Other Contrast (ICD-10-PCS; 2017-05-30)
PROC: 05H333Z Insertion of Infusion Device into Right Innominate Vein, Percutaneous Approach (ICD-10-PCS; 2017-06-04)
PROC: 0HBNXZZ Excision of Left Foot Skin, External Approach (ICD-10-PCS; principal; 2017-06-04 14:00)
DX: B20 Human immunodeficiency virus [HIV] disease (principal); N18.6 End stage renal disease; F03.90 Unspecified dementia, unspecified severity, without behavioral disturbance, psychotic disturbance, mood disturbance, and anxiety; I13.2 Hypertensive heart and chronic kidney disease with heart failure and with stage 5 chronic kidney disease, or end stage renal disease; E11.22 Type 2 diabetes mellitus with diabetic chronic kidney disease; L03.116 Cellulitis of left lower limb; E11.621 Type 2 diabetes mellitus with foot ulcer; L97.429 Non-pressure chronic ulcer of left heel and midfoot with unspecified severity; I70.244 Atherosclerosis of native arteries of left leg with ulceration of heel and midfoot; I50.9 Heart failure, unspecified; Z99.2 Dependence on renal dialysis; E78.00 Pure hypercholesterolemia, unspecified; E03.9 Hypothyroidism, unspecified; F41.9 Anxiety disorder, unspecified; Z87.891 Personal history of nicotine dependence; D63.1 Anemia in chronic kidney disease; Z89.511 Acquired absence of right leg below knee; D72.825 Bandemia

== ENCOUNTER 2017-11-28 12:28 | Inpatient (IN) | payer MEDICARE, OTHER ==
[2017-11-28 12:28] VITALS: BMI 29.9
[2017-11-28 14:32] LABS: BASO % 0.4 % (0.0-2.0); EOS % 0.7 % (0.0-4.0); HEMOGLOBIN 12.5 g/dL (11.0-16.0); LYMPH # 0.9 K/uL (1.0-4.3); LYMPH % 13.1 % (20.0-40.0); MEAN CELL VOLUME 95.3 fL (81.0-99.0); MEAN CORPUSCULAR HGB CONC 33.5 g/dL (33.0-37.0); MEAN PLATELET VOLUME 7.9 fL (7.2-11.7); MONO # 0.5 K/uL (0.0-0.8); MONO % 6.5 % (0.0-10.0); NEUT # 5.5 K/uL (1.8-7.0); NEUT % 79.3 % (50.0-75.0); NRBC % 0.1 % (0.0-2.0); RBC 3.9 Mil/uL (3.80-5.20); RED CELL DISTRIBUTION WIDTH 21.2 % (11.5-14.5)
[2017-11-28] MEDS ORDERED: Morphine 4 MG/ML VIAL ONE ×2 (14:32→20:11)
[2017-11-28 14:42] LABS: ALB/GLOB RATIO 0.7 (1.0-2.1); ALBUMIN 3.9 g/dL (3.5-5.0); AST/SGOT 20 U/L (14-36); BLOOD UREA NITROGEN 36 mg/dL (7-17); CALCIUM 9.5 mg/dl (8.6-10.4); GFR AFRICAN-AMERICAN 10; GFR NON-AFRICAN AMERICAN 8
[2017-11-28 14:43] LABS: ALT/SGPT < 6 U/L (9-52)
[2017-11-28 14:44] LABS: PROTHROMBIN TIME 11.7 SECONDS (9.7-12.2)
--- NOTE | 2017-11-28 14:53 | C.PDOC ---
History Of Present Illness Pt c/o atraumatic left foot/ankle pain. Time Seen by Provider: 11/28/17 12:42 Chief Complaint (Nursing): Lower Extremity Problem/Injury History Per: Patient Onset/Duration Of Symptoms: Days (about 3 weeks) Current Symptoms Are (Timing): Worse Severity: Severe Additional History Per: Prior Records Past Medical History Reviewed: Historical Data, Nursing Documentation, Vital Signs Vital Signs: Last Vital Signs Temp 98.7 F 11/28/17 12:37 Pulse 84 11/28/17 14:34 Resp 15 11/28/17 14:34 BP 89/44 L 11/28/17 14:34 Pulse Ox 100 11/28/17 14:57 - Medical History PMH: Anxiety, CHF, Dementia, Diabetes, HIV, HTN, Hyperthyroidism, Hypothyroidism , End Stage Renal Disease (on hemodialysis M/W/F.), Chronic Kidney Disease Other Surgeries: Right BKA - [facility] Procedures (06/19/17) CENTRAL VENOUS CATHETER PLACEMENT WITH GUIDANCE (09/12/13) DILATION OF L FEM ART WITH DRUG-ELUT INTRA, PERC APPROACH (05/28/17) DILATION OF L FEM ART WITH INTRALUM DEV, PERC APPROACH (05/28/17) EXCISION OF LEFT FOOT SKIN, EXTERNAL APPROACH (05/28/17) EXTIRPATION OF MATTER FROM L FEM ART, PERC APPROACH (05/28/17) FLUOROSCOPY OF AORTA, BI LE ART USING OTH CONTRAST (05/28/17) FLUOROSCOPY OF RIGHT HEART USING LOW OSMOLAR CONTRAST (05/25/16) HEMODIALYSIS (08/26/14) IMMOBILIZATION OF RIGHT LOWER EXTREMITY USING CAST (05/25/16) IMMOBILIZATION OF RIGHT UPPER LEG USING SPLINT (05/25/16) INSERTION OF INFUSION DEV INTO INF VENA CAVA, PERC APPROACH (04/02/16) INSERTION OF INFUSION DEV INTO R INNOM VEIN, PERC APPROACH (05/28/17) INSERTION OF INFUSION DEVICE INTO R ATRIUM, PERC APPROACH (06/19/17) PERFORMANCE OF URINARY FILTRATION, MULTIPLE (05/25/16) PERFORMANCE OF URINARY FILTRATION, SINGLE (02/03/17) REMOVAL OF INFUSION DEVICE FROM LOWER VEIN, PERC APPROACH (04/02/16) REPOSITION RIGHT LOWER FEMUR, EXTERNAL APPROACH (05/25/16) TRANSFUSE NONAUT RED BLOOD CELLS IN PERIPH VEIN, PERC (05/25/16) ULTRASONOGRAPHY OF RIGHT SUBCLAVIAN VEIN, GUIDANCE (06/19/17) Family History: States: Unknown Family Hx - Social History Hx Tobacco Use: Yes (former smoker) Hx Alcohol Use: No Hx Substance Use: No - Immunization History Hx Tetanus Toxoid Vaccination: Yes Hx Influenza Vaccination: Yes Hx Pneumococcal Vaccination: Yes Review Of Systems Except As Marked, All Systems Reviewed And Found Negative. Constitutional: Negative for: Fever Cardiovascular: Negative for: Chest Pain Respiratory: Negative for: Shortness of Breath Gastrointestinal: Negative for: Vomiting, Abdominal Pain Musculoskeletal: Positive for: Foot Pain (left). Negative for: Back Pain Skin: Positive for: Other (Nonhealing ulcer on left heel) Neurological: Negative for: Seizures, Altered Mental Status Physical Exam - Physical Exam Appears: No Acute Distress, Chronically Ill Skin: Warm, Dry Head: Atraumatic Neck: Normal ROM, Supple Chest: Other (Dialysis catheter in right chest ) Cardiovascular: Rhythm Regular Respiratory: Normal Breath Sounds, No Accessory Muscle Use Gastrointestinal/Abdominal: Soft, No Tenderness Extremity: Normal ROM, Tenderness (left medial ankle area), Other (Right BKA) Pulses: Left Dorsalis Pedis: Absent Neurological/Psych: Oriented x3, Normal Sensation ED Course And Treatment - Laboratory Results Result Diagrams: 11/28/17 14:22 11/28/17 14:22 Lab Interpretation: No Changes Compared To Prior Results O2 Sat by Pulse Oximetry: 100 Pulse Ox Interpretation: Normal - Physician Consult Information Physician Contacted: Aden Sinclair Jr. Outcome Of Conversation: He states pt can be admitted to obtain CTA of LE's for further evaluation and treatment. He will consult. Progress - Interventions Interventions:: Observation - Medications Administered Intravenous: Opiate - Data Reviewed Data Reviewed: Lab, Old records - Continuity of Care Discussed patient case with:: Patient, ED Nurse, Covering for PMD Discussed pt. case with senior recruitment consultant/specialty: Vascular Surgery - Patient Plan Patient Plan: Admission Disposition Discussed With : Mickey Arias Comment: He accepted pt on hospitalist service. Doctor Will See Patient In The: Hospital Counseled Patient/Family Regarding: Studies Performed, Diagnosis - Disposition Disposition: HOSPITALIZED Disposition Time: 14:57 Condition: GUARDED - Clinical Impression Clinical Impression: Left foot pain, PVD (peripheral vascular disease), Ischemia of left lower extremity
--- NOTE | 2017-11-28 16:30 | CP.PCM.CON ---
History of Present Illness - History of Present Illness History of Present Illness: Vascular Surgery- Dr. Sinclair 57F pmhx significant for PVD, non-healing left heel ulcer, DM, HTN, ESRD on hemodialysis (M/W/F), HIV, presents to [facility] ED for increased pain in the left leg localized to heal at rest for 1 week. Pain is described as aching /10. PMD gave medication but only helped mildly. Left calcaneal ulcer has been present for several and never completely heals, and is seen by wound care at home. Surgery was consulted for perhipheral vascular disease assessment Denies: Fevers, chills, chest pain, shortness of breath, nausea, vomiting, diarrhea, loss of consciousness. PMH: PVD, ESRD on HD MWF, HTN, DM, HIV PSH: AVF, left heel debridement (05/2017), LLE Angio (05/2017), Cholecystectomy (10 years ago). R BKA SocialHx: former smoker quit 10+ years ago. Denies current ETOH, recreational drug use ALL: NKDA Review of Systems - Review of Systems All systems: reviewed and no additional remarkable complaints except - Constitutional Constitutional: As Per HPI Past Patient History - Infectious Disease Hx of Infectious Diseases: None - Past Medical History & Family History Past Medical History?: Yes - Past Social History Smoking Status: Former Smoker - CARDIAC Hx Congestive Heart Failure: Yes Hx Hypertension: Yes - PULMONARY Hx Respiratory Disorders: No - NEUROLOGICAL Hx Dementia: Yes - HEENT Hx HEENT Problems: Yes (wears glasses) Hx Glaucoma: Yes - RENAL Hx Chronic Kidney Disease: Yes - ENDOCRINE/METABOLIC Hx Hyperthyroidism: Yes Hx Hypothyroidism: Yes - HEMATOLOGICAL/ONCOLOGICAL Hx Human Immunodeficiency Virus (HIV): Yes - INTEGUMENTARY Hx Dermatological Problems: No - MUSCULOSKELETAL/RHEUMATOLOGICAL Hx Musculoskeletal Disorders: Yes (Right BKA) - GASTROINTESTINAL Hx Gastrointestinal Disorders: No - GENITOURINARY/GYNECOLOGICAL Hx Genitourinary Disorders: Yes Other/Comment: oliguria, on hemodialysis MWF - PSYCHIATRIC Hx Anxiety: Yes Hx Substance Use: No - SURGICAL HISTORY Hx Amputation: Yes (Right BKA) - ANESTHESIA Hx Anesthesia Reactions: No Hx Malignant Hyperthermia: No Meds Allergies/Adverse Reactions: Allergies Allergy/AdvReac Type Severity Reaction Status Date / Time No Known Allergies Allergy Verified 11/14/17 11:49 Physical Exam - Constitutional Appears: Non-toxic, No Acute Distress, Older Than Stated Age - Eye Exam Eye Exam: EOMI. absent: Normal appearance Pupil Exam: Irregular, Unequal - ENT Exam ENT Exam: Mucous Membranes Moist - Respiratory Exam Respiratory Exam: NORMAL BREATHING PATTERN. absent: Accessory Muscle Use, Respiratory Distress - Cardiovascular Exam Cardiovascular Exam: +S1, +S2. absent: Bradycardia, Tachycardia - GI/Abdominal Exam GI & Abdominal Exam: Soft. absent: Firm, Guarding, Rebound, Tenderness - Extremities Exam Extremities exam: Negative for: normal inspection Additional comments: RUE permacath RLE amputation non palpable popletial, non-dopplerable DP&PT Stage 4 left heel ulcer - Neurological Exam Neurological exam: Alert, Oriented x3 - Skin Skin Exam: Dry, Warm Results - Vital Signs Recent Vital Signs: Last Vital Signs Temp 98.7 F 11/28/17 12:37 Pulse 83 11/28/17 16:18 Resp 13 11/28/17 16:18 BP 106/42 L 11/28/17 16:18 Pulse Ox 100 11/28/17 16:18 - Labs Result Diagrams: 11/28/17 14:22 11/28/17 14:22 Labs: Laboratory Results - last 24 hr 11/28/17 11/28/17 11/28/17 14:22 14:22 14:22 WBC 7.0 D RBC 3.90 Hgb 12.5 D Hct 37.1 MCV 95.3 D MCH 32.0 H MCHC 33.5 RDW 21.2 H Plt Count 201 MPV 7.9 Neut % (Auto) 79.3 H Lymph % (Auto) 13.1 L [place] % (Auto) 6.5 Eos % (Auto) 0.7 Baso % (Auto) 0.4 Neut # (Auto) 5.5 Lymph # (Auto) 0.9 L [place] # (Auto) 0.5 Eos # (Auto) 0.0 Baso # (Auto) 0.0 PT 11.7 INR 1.0 APTT 34 Sodium 142 Potassium 4.1 Chloride 97 L Carbon Dioxide 28 Anion Gap 22 H BUN 36 H Creatinine 5.6 H Est GFR ( Amer) 10 Est GFR (Non-Af Amer) 8 Random Glucose 159 H Calcium 9.5 Total Bilirubin 0.6 AST 20 ALT < 6 L D Alkaline Phosphatase 231 H Total Creatine Kinase 62 Total Protein 9.8 H Albumin 3.9 Globulin 5.9 H Albumin/Globulin Ratio 0.7 L Assessment & Plan - Assessment and Plan (Free Text) Assessment: 57F w/ hx of PVD, chronic non-healing Left heel ulcer Plan: - plan for CTA - pending results will plan for Angio - NPO after midnight - HD as scheduled tomorrow after procedures - discussed w/ Dr. Sinclair surgical attending PGY1
[2017-11-28] MEDS: Piperacill/Tazo 2.25gm in Dex 2.25 GM/50 ML BAG IVPB SCH (17:25)
--- NOTE | 2017-11-28 17:43 | CP.PCM.HP ---
<Eunice Mistry - Last Filed: 11/28/17 17:44> History of Present Illness - History of Present Illness History of Present Illness: HPI: Patient is a 57 year old female with a past medical history HIV, PVD, HTN, HLD, chronic left heel ulcer, CKD (on HD MWF), and poorly controlled DM, who presents to the ED complaining of left foot pain of 1 week duration. Patient says its a crampy 7/10 pain that has been constant. Patient told her PCP, Dr. Jones, who gave her a pain medication that she said mildly helped. Patient says the pain is worse when her foot is touched. The pain does not change when hanging it over the edge of the bed. She told Dr. Sinclair about her pain 2 days ago and he recommended she come to the hospital. Patient also has a chronic wound on her left heel that she has had for over 2 months. Patient says she has a nurse who comes to her home for wound care. Patient admits to constipation, but otherwise denies numbness/ tingling in the leg, fever, chills , headache, dizziness, chest pain, SOB, cough, plapitations, wheezing, abdominal pain, N&V, diarrhea, dysuria, and recent travel. PCP: Dr. Moya Nephro: Dr. Orta Blow Down Helper: Dr. Alonso and Dr. Elder PMH: HIV, PVD, HTN, HLD, chronic left heel ulcer, CKD (on HD MWF), and poorly controlled DM PSH: Left AKA, multiple AV fistulas, cholecystectomy Meds: See MAR Allergies: NKDA FH: mother with DM, father with HTN SH: former smoker (10 years, 1/2 PPD); denies tobacco and alcohol use; lives with son (Dilip) and has a home visiting nurse Code Status: Full code Proxy: Son, Dilip ([phone]) Present on Admission - Present on Admission Any Indicators Present on Admission: No Review of Systems - Review of Systems All systems: reviewed and no additional remarkable complaints except (as per HPI ) Past Patient History - Infectious Disease Hx of Infectious Diseases: None - Past Medical History & Family History Past Medical History?: Yes - Past Social History Smoking Status: Former Smoker - CARDIAC Hx Congestive Heart Failure: Yes Hx Hypertension: Yes - PULMONARY Hx Respiratory Disorders: No - NEUROLOGICAL Hx Dementia: Yes - HEENT Hx HEENT Problems: Yes (wears glasses) Hx Glaucoma: Yes - RENAL Hx Chronic Kidney Disease: Yes - ENDOCRINE/METABOLIC Hx Hyperthyroidism: Yes Hx Hypothyroidism: Yes - HEMATOLOGICAL/ONCOLOGICAL Hx Human Immunodeficiency Virus (HIV): Yes - INTEGUMENTARY Hx Dermatological Problems: No - MUSCULOSKELETAL/RHEUMATOLOGICAL Hx Musculoskeletal Disorders: Yes (Right BKA) - GASTROINTESTINAL Hx Gastrointestinal Disorders: No - GENITOURINARY/GYNECOLOGICAL Hx Genitourinary Disorders: Yes Other/Comment: oliguria, on hemodialysis MWF - PSYCHIATRIC Hx Anxiety: Yes Hx Substance Use: No - SURGICAL HISTORY Hx Amputation: Yes (Right BKA) - ANESTHESIA Hx Anesthesia Reactions: No Hx Malignant Hyperthermia: No Meds Allergies/Adverse Reactions: Allergies Allergy/AdvReac Type Severity Reaction Status Date / Time No Known Allergies Allergy Verified 11/14/17 11:49 Physical Exam - Constitutional Appears: Non-toxic, No Acute Distress - Head Exam Head Exam: ATRAUMATIC, NORMAL INSPECTION, NORMOCEPHALIC - Eye Exam Eye Exam: EOMI Additional comments: Left eye with cataract - ENT Exam ENT Exam: Mucous Membranes Moist - Neck Exam Neck exam: Positive for: Normal Inspection - Respiratory Exam Respiratory Exam: Clear to Auscultation Bilateral, NORMAL BREATHING PATTERN. absent: Accessory Muscle Use, Rales, Rhonchi, Wheezes, Respiratory Distress - Cardiovascular Exam Cardiovascular Exam: RRR, +S1, +S2. absent: Bradycardia, Tachycardia, Diastolic murmur, Gallop, Rubs, Systolic Murmur - GI/Abdominal Exam GI & Abdominal Exam: Normal Bowel Sounds, Soft. absent: Distended, Tenderness - Extremities Exam Extremities exam: Positive for: pedal edema (1+ pitting), tenderness (left foot ). Negative for: pedal pulses present (unable to find with doppler) Additional comments: s/p right AKA 4 cm x 2 cm ulcer on left heel, pink base, no drainage, erythema, or malodor - Back Exam Back exam: NORMAL INSPECTION - Neurological Exam Neurological exam: Alert, Oriented x3 - Psychiatric Exam Psychiatric exam: Normal Affect, Normal Mood - Skin Skin Exam: Dry, Intact, Normal Color, Warm Results - Vital Signs Recent Vital Signs: Last Vital Signs Temp 98.7 F 11/28/17 12:37 Pulse 83 11/28/17 16:18 Resp 13 11/28/17 16:18 BP 106/42 L 11/28/17 16:18 Pulse Ox 100 11/28/17 16:18 - Labs Result Diagrams: 11/28/17 14:22 11/28/17 14:22 Labs: Laboratory Results - last 24 hr 11/28/17 11/28/17 11/28/17 14:22 14:22 14:22 WBC 7.0 D RBC 3.90 Hgb 12.5 D Hct 37.1 MCV 95.3 D MCH 32.0 H MCHC 33.5 RDW 21.2 H Plt Count 201 MPV 7.9 Neut % (Auto) 79.3 H Lymph % (Auto) 13.1 L [place] % (Auto) 6.5 Eos % (Auto) 0.7 Baso % (Auto) 0.4 Neut # (Auto) 5.5 Lymph # (Auto) 0.9 L [place] # (Auto) 0.5 Eos # (Auto) 0.0 Baso # (Auto) 0.0 PT 11.7 INR 1.0 APTT 34 Sodium 142 Potassium 4.1 Chloride 97 L Carbon Dioxide 28 Anion Gap 22 H BUN 36 H Creatinine 5.6 H Est GFR ( Amer) 10 Est GFR (Non-Af Amer) 8 Random Glucose 159 H Calcium 9.5 Total Bilirubin 0.6 AST 20 ALT < 6 L D Alkaline Phosphatase 231 H Total Creatine Kinase 62 Total Protein 9.8 H Albumin 3.9 Globulin 5.9 H Albumin/Globulin Ratio 0.7 L Assessment & Plan - Assessment and Plan (Free Text) Plan: Peripheral Vascular Disease * Dr. Sinclair consulted - help appreciated * Will do CTA with runoff in the morning before dialysis * f/u CXR, ECG, and Type and Screen in case of need for procedure * f/u Lipid panel and HbA1c * Plavix 75 mg * Aspirin 81 mg * Morphine 2 mg PRN severe pain History of ESRD on HD -- * Dr. Cao consulted - help appreciated * Patient due for dialysis tomorrow AFTER CT angio with runoff History of Chronic Left Heel Ulcer * Dr. Elder consulted - help appreciated * will refer to his recs for wound care * f/u left foot XR * f/u blood cultures History of DM * Accuchecks ACHS * Insulin SS medium dose * Hypoglycemic protocol * Hold Nateglinide * f/u HbA1c * f/u lipid panel History of HTN * continue home meds: Imdur 60 mg ACB History of HLD * Not on statin at home - will start crestor 5 mg PO HS * f/u lipid panel History of HIV * Continue home meds: Truvada and Isentress History of Left Eye Cataract * Continue home eye drops: Timolol and Brimonidine History of Constipation * Colace 100 mg BID Prophylaxis * GI not indicated however she takes pepcid 20 mg QD at home so will start this * DVT: Hold heparin in case of procedure, SCD contraindicated <Aakash Regan - Last Filed: 11/29/17 07:28> Results - Vital Signs Recent Vital Signs: Last Vital Signs Temp 98.3 F 11/29/17 02:55 Pulse 69 11/29/17 02:55 Resp 20 11/29/17 02:55 BP 100/66 11/29/17 02:55 Pulse Ox 98 11/29/17 02:55 - Labs Result Diagrams: 11/29/17 06:44 11/28/17 14:22 Labs: Laboratory Results - last 24 hr 11/28/17 11/28/17 11/28/17 14:22 14:22 14:22 WBC 7.0 D RBC 3.90 Hgb 12.5 D Hct 37.1 MCV 95.3 D MCH 32.0 H MCHC 33.5 RDW 21.2 H Plt Count 201 MPV 7.9 Neut % (Auto) 79.3 H Lymph % (Auto) 13.1 L [place] % (Auto) 6.5 Eos % (Auto) 0.7 Baso % (Auto) 0.4 Neut # (Auto) 5.5 Lymph # (Auto) 0.9 L [place] # (Auto) 0.5 Eos # (Auto) 0.0 Baso # (Auto) 0.0 PT 11.7 INR 1.0 APTT 34 Sodium 142 Potassium 4.1 Chloride 97 L Carbon Dioxide 28 Anion Gap 22 H BUN 36 H Creatinine 5.6 H Est GFR ( Amer) 10 Est GFR (Non-Af Amer) 8 POC Glucose (mg/dL) Random Glucose 159 H Calcium 9.5 Total Bilirubin 0.6 AST 20 ALT < 6 L D Alkaline Phosphatase 231 H Total Creatine Kinase 62 Total Protein 9.8 H Albumin 3.9 Globulin 5.9 H Albumin/Globulin Ratio 0.7 L Blood Type Antibody Screen 11/28/17 11/28/17 11/29/17 17:22 22:46 06:44 WBC 5.6 RBC 3.80 Hgb 11.8 Hct 36.4 MCV 95.7 MCH 31.1 H MCHC 32.5 L RDW 21.2 H Plt Count 228 MPV 8.3 Neut % (Auto) 77.8 H Lymph % (Auto) 15.1 L [place] % (Auto) 5.5 Eos % (Auto) 1.0 Baso % (Auto) 0.6 Neut # (Auto) 4.4 Lymph # (Auto) 0.9 L [place] # (Auto) 0.3 Eos # (Auto) 0.1 Baso # (Auto) 0.0 PT INR APTT Sodium Potassium Chloride Carbon Dioxide Anion Gap BUN Creatinine Est GFR ( Amer) Est GFR (Non-Af Amer) POC Glucose (mg/dL) 137 H Random Glucose Calcium Total Bilirubin AST ALT Alkaline Phosphatase Total Creatine Kinase Total Protein Albumin Globulin Albumin/Globulin Ratio Blood Type B POSITIVE Antibody Screen Negative 11/29/17 06:44 WBC RBC Hgb Hct MCV MCH MCHC RDW Plt Count MPV Neut % (Auto) Lymph % (Auto) [place] % (Auto) Eos % (Auto) Baso % (Auto) Neut # (Auto) Lymph # (Auto) [place] # (Auto) Eos # (Auto) Baso # (Auto) PT 11.3 INR 1.0 APTT 33 Sodium Potassium Chloride Carbon Dioxide Anion Gap BUN Creatinine Est GFR ( Amer) Est GFR (Non-Af Amer) POC Glucose (mg/dL) Random Glucose Calcium Total Bilirubin AST ALT Alkaline Phosphatase Total Creatine Kinase Total Protein Albumin Globulin Albumin/Globulin Ratio Blood Type Antibody Screen Attending/Attestation - Attestation I have personally seen and examined this patient.: Yes I have fully participated in the care of the patient.: Yes I have reviewed all pertinent clinical information: Yes Notes (Text): Medical attending: Patient was seen and examined by me. Agree with the above note by the resident The patient was seen in the ER with the medical administrative technician. Patient was not in any acute distress and answering questions and following commands and we discussed her left foot pain that had been ongoing for one week duration. She also has a calcaneous/heel area open wound as well. She cannot walk because of the pain. The patient has ESRD on HD. We will try to get a CT of the femoral with run off to better assess her peripheral arterial disease and then after this she will need to go to HD. The patient will also need imaging of the foot since the wound has been open for quite some time she says, and so there is a chance of osteomylitis. thank you Aakash Regan
[2017-11-28] MEDS ORDERED: Dextrose 50% SYRINGE Inj (50 ml) IV PRN (18:06)
[2017-11-28] MEDS ORDERED: Glucagon Recombinant 1 mg Inj IM PRN (18:06)
[2017-11-28] MEDS: (Novolin R) Insulin Human Regular 100 units/ml vial SC SCH (22:55)
--- NOTE | 2017-11-28 23:40 | CP.PCM.CON ---
History of Present Illness - History of Present Illness History of Present Illness: REASONS FOR CONSULT : ESRD ON HD M W ANEMIS OF CKD .. H/H STABLE ALL PREVIOUS EMR REVIEWED .. PT WAS SEEN AND EXAMINED 57F pmhx significant for PVD, non-healing left heel ulcer, DM, HTN, ESRD on hemodialysis (M/W/F), HIV, presents to [facility] ED for increased pain in the left leg localized to heal at rest for 1 week. Pain is described as aching 03/07. PMD gave medication but only helped mildly. Left calcaneal ulcer has been present for several and never completely heals, and is seen by wound care at home. Vascular surgery consult was done by dr davis Denies: Fevers, chills, chest pain, shortness of breath, nausea, vomiting, diarrhea, loss of consciousness. PMH: PVD, ESRD on HD MWF, HTN, DM, HIV PSH: AVF, left heel debridement (05/2017), LLE Angio (05/2017), Cholecystectomy (10 years ago). R BKA SocialHx: former smoker quit 10+ years ago. Denies current ETOH, recreational drug use ALL: NKDA Review of Systems - Review of Systems All systems: reviewed and no additional remarkable complaints except - Constitutional Constitutional: As Per HPI Past Patient History Past Patient History - Infectious Disease Hx of Infectious Diseases: None - Past Medical History & Family History Past Medical History?: Yes - Past Social History Smoking Status: Former Smoker - CARDIAC Hx Congestive Heart Failure: Yes Hx Hypertension: Yes - PULMONARY Hx Respiratory Disorders: No - NEUROLOGICAL Hx Dementia: Yes - HEENT Hx HEENT Problems: Yes (wears glasses) Hx Glaucoma: Yes - RENAL Hx Chronic Kidney Disease: Yes - ENDOCRINE/METABOLIC Hx Hyperthyroidism: Yes Hx Hypothyroidism: Yes - HEMATOLOGICAL/ONCOLOGICAL Hx Human Immunodeficiency Virus (HIV): Yes - INTEGUMENTARY Hx Dermatological Problems: No - MUSCULOSKELETAL/RHEUMATOLOGICAL Hx Musculoskeletal Disorders: Yes (Right BKA) - GASTROINTESTINAL Hx Gastrointestinal Disorders: No - GENITOURINARY/GYNECOLOGICAL Hx Genitourinary Disorders: Yes Other/Comment: oliguria, on hemodialysis MWF - PSYCHIATRIC Hx Anxiety: Yes Hx Substance Use: No - SURGICAL HISTORY Hx Amputation: Yes (Right BKA) - ANESTHESIA Hx Anesthesia Reactions: No Hx Malignant Hyperthermia: No Meds Allergies/Adverse Reactions: Allergies Allergy/AdvReac Type Severity Reaction Status Date / Time No Known Allergies Allergy Verified 11/14/17 11:49 - Medications Medications: Current Medications Aspirin (Ecotrin) 81 mg PO DAILY [facility] Brimonidine Tartrate (Alphagan 0.2% Opht) 0 ml OS BID [facility] Clopidogrel Bisulfate (Plavix) 75 mg PO DAILY [facility] Dextrose (Dextrose 50% Inj) 0 ml IV STAT PRN; Protocol PRN Reason: Hypoglycemia Protocol Dextrose (Glutose 15) 0 gm PO ONCE PRN; Protocol PRN Reason: Hypoglycemia Protocol Docusate Sodium (Colace) 100 mg PO BID [facility] Last Admin: 11/28/17 17:57 Dose: 100 mg Emtricitabine/Tenofovir (Truvada 200 Mg-300 Mg) 1 tab PO DAILY [facility] PRN Reason: Protocol Famotidine (Pepcid) 20 mg PO DAILY [facility] Glucagon (Glucagen Diagnostic Kit) 0 mg IM STAT PRN; Protocol PRN Reason: Hypoglycemia Protocol Piperacillin Sod/Tazobactam Sod (Zosyn 2.25 Gm Iv Premix) 2.25 gm in 50 mls @ 100 mls/hr IVPB Q8H KATARINA PRN Reason: Protocol Last Admin: 11/28/17 17:25 Dose: 100 mls/hr Dextrose (Dextrose 5% In Water 1000 Ml) 1,000 mls @ 0 mls/hr IV .Q0M PRN; Protocol; Per Protocol PRN Reason: Hypoglycemia Protocol Insulin Human Regular (Novolin R) 0 unit SC ACHS [facility] PRN Reason: Protocol Last Admin: 11/28/17 22:55 Dose: Not Given Isosorbide Mononitrate (Imdur) 60 mg PO ACB [facility] Morphine Sulfate (Morphine) 2 mg IVP Q4H PRN PRN Reason: Pain, severe (8-10) Last Admin: 11/28/17 20:11 Dose: 2 mg Raltegravir (Isentress) 400 mg PO BID [facility] PRN Reason: Protocol Last Admin: 11/28/17 17:57 Dose: 400 mg Rosuvastatin Calcium (Crestor) 5 mg PO HS [facility] Last Admin: 11/28/17 23:06 Dose: Not Given Timolol Maleate (Timoptic 0.5% Ophth Soln) 1 drop OS BID [facility] Vitamin B Complex/Vit C/Folic Acid (Nephro-Carlos) 1 tab PO 0800 [facility] Results - Vital Signs Recent Vital Signs: Last Vital Signs Temp 98.7 F 11/28/17 12:37 Pulse 79 11/28/17 21:35 Resp 13 11/28/17 21:35 BP 86/45 L 11/28/17 21:35 Pulse Ox 98 11/28/17 21:35 - Labs Result Diagrams: 11/28/17 14:22 11/28/17 14:22 Labs: Laboratory Results - last 24 hr 11/28/17 11/28/17 11/28/17 14:22 14:22 14:22 WBC 7.0 D RBC 3.90 Hgb 12.5 D Hct 37.1 MCV 95.3 D MCH 32.0 H MCHC 33.5 RDW 21.2 H Plt Count 201 MPV 7.9 Neut % (Auto) 79.3 H Lymph % (Auto) 13.1 L [place] % (Auto) 6.5 Eos % (Auto) 0.7 Baso % (Auto) 0.4 Neut # (Auto) 5.5 Lymph # (Auto) 0.9 L [place] # (Auto) 0.5 Eos # (Auto) 0.0 Baso # (Auto) 0.0 PT 11.7 INR 1.0 APTT 34 Sodium 142 Potassium 4.1 Chloride 97 L Carbon Dioxide 28 Anion Gap 22 H BUN 36 H Creatinine 5.6 H Est GFR ( Amer) 10 Est GFR (Non-Af Amer) 8 POC Glucose (mg/dL) Random Glucose 159 H Calcium 9.5 Total Bilirubin 0.6 AST 20 ALT < 6 L D Alkaline Phosphatase 231 H Total Creatine Kinase 62 Total Protein 9.8 H Albumin 3.9 Globulin 5.9 H Albumin/Globulin Ratio 0.7 L Blood Type Antibody Screen 11/28/17 11/28/17 17:22 22:46 WBC RBC Hgb Hct MCV MCH MCHC RDW Plt Count MPV Neut % (Auto) Lymph % (Auto) [place] % (Auto) Eos % (Auto) Baso % (Auto) Neut # (Auto) Lymph # (Auto) Benson # (Auto) Eos # (Auto) Baso # (Auto) PT INR APTT Sodium Potassium Chloride Carbon Dioxide Anion Gap BUN Creatinine Est GFR ( Amer) Est GFR (Non-Af Amer) POC Glucose (mg/dL) 137 H Random Glucose Calcium Total Bilirubin AST ALT Alkaline Phosphatase Total Creatine Kinase Total Protein Albumin Globulin Albumin/Globulin Ratio Blood Type B POSITIVE Antibody Screen Negative Assessment & Plan - Assessment and Plan (Free Text) Plan: ESRD ON HD .. TO BE C/O ANEMIA OF CKD . . H/H STABLE PVD .. NON HEALING HEEL ULCER MMP P : HD TO BE C/O ON NO NEED FOR EPO TRX HGB > 10 C/O CURRENT MEDS - Date & Time Date: 11/28/17 Time: 17:00
[2017-11-28] MEDS ORDERED: Ergocalciferol 50,000 Intl Units Cap PO SCH (23:45)
--- NOTE | 2017-11-29 00:17 | CT ---
EXAM: CT Angiography Bilateral Abd/Aorta & Lwr Extrem Run Off With Intravenous Contrast EXAM DATE/TIME: 11/28/2017 8:35 PM CLINICAL HISTORY: 57 years old, female; Condition or disease; Peripheral vascular disease; Additional info: Pvd TECHNIQUE: Axial computed tomographic angiography images of the bilateral abd/aorta & lwr extrem run off with intravenous contrast. All CT scans at this facility use one or more dose reduction techniques, viz.: automated exposure control; ma/kV adjustment per patient size (including targeted exams where dose is matched to indication; i.e. head); or iterative reconstruction technique. MIP reconstructed images were created and reviewed. Coronal and sagittal reformatted images were created and reviewed. CONTRAST: 150 mL of omnipaque 350 administered intravenously. COMPARISON: No relevant prior studies available. FINDINGS: Cholecystectomy clips are present. There is intrahepatic duct dilation likely secondary to cholecystectomy. There is a large area of low attenuation in the left hepatic lobe. Awaiting priors for correlation at which time recommendations will be made. A splenule is noted. The pancreas is normal. The kidneys are hypotrophic. Subcentimeter hypoattenuating lesions small to characterize. Vasculature: There are extensive atherosclerotic calcifications throughout the vasculature of the abdomen pelvis and lower extremities. There are no precontrast images submitted making it difficult to differentiate calcium from contrast left in the caliber vessels. Calcification at the origin of the celiac axis with moderate stenosis. Calcification at the origin of the SMA without significant stenosis. Probable identification of thin caliber calcified SAI images 83 through 98. Thin caliber heavily calcified renal arteries severely stenotic on the right. Probable scattered areas of occlusion on the left. Densely calcified common iliac arteries without occlusion. Densely calcified internal iliac arteries there is occlusion. The external iliac arteries are patent. Dense calcifications in the common femoral arteries bilaterally resulting in moderate stenosis on the right. Right lower extremity: [id number] amputation. Extensive dense calcification throughout the superficial femoral artery. There are probable small scattered areas of intraluminal contrast within the densely calcified amaral however the majority is occluded. Extensive calcification of the right popliteal artery also felt to be excluded. Old fracture right distal femur. Left lower extremity: Extremely dense calcifications throughout the superficial femoral artery resulting in severe stenosis proximally and occlusion distally. Conclusion of the popliteal artery. Trifurcation vessels are best seen on images 363. All 3 vessels are densely calcified. There appears to be intraluminal contrast within the anterior tibial artery. Dense rim calcifications of the peroneal and posterior tibial arteries may identification of intraluminal contrast difficult however there appear to be areas of high-grade stenosis / occlusion in the proximal peroneal artery and posterior tibial artery with complete occlusion distally. IMPRESSION: Findings as described above similar to those described in prior report. I am awaiting actual images for direct correlation. Again seen is occlusion of the left superficial femoral and popliteal. Severe stenosis/occlusion of the left peroneal artery and posterior tibial artery. Patent left anterior tibial artery. Right [id number] amputation. Large hypoattenuating area in the left hepatic lobe. Awaiting priors for correlation at which time recommendations will be made.
[2017-11-29] MEDS: Piperacill/Tazo 2.25gm in Dex 2.25 GM/50 ML BAG IVPB SCH ×3 (01:00→21:57)
--- NOTE | 2017-11-29 06:52 | RAD ---
PROCEDURE: Left Foot Radiographs. HISTORY: r/o osteo COMPARISON: Left foot radiographs 05/28/2017 FINDINGS: BONES: There is no displaced fracture or destructive bony lesion appreciable. Soft tissue deformity at the posterior heel has increased in suggests likely worsening of ulcer though no periosteal reaction or bony erosions appreciable to suggest definite osteomyelitis. MRI is available for follow-up as well. There is gross osteopenia suggesting advanced osteoporosis limiting the evaluation of the bony elements throughout the left foot. The overall appearance is not appear significantly changed compared 05/28/2017 radiographs. JOINTS: No definitive subluxation or dislocation. Degenerative cortical sclerosis appreciated throughout the joints of the left foot diffusely compatible degenerative joint disease. Chronic extension deformities of the metatarsophalangeal joints is identified with flexion deformities of the interphalangeal joints diffusely noted as well. SOFT TISSUES: Vascular calcification identified once again. Likely ulceration of posterior heel soft tissues as discussed above. OTHER FINDINGS: None. IMPRESSION: No definitive pattern of osteomyelitis including at the posterior calcaneus. Worsening of of posterior heel soft tissue ulcer is suggested. Clinically correlate. Additional findings as discussed above.
--- NOTE | 2017-11-29 06:55 | RAD ---
PROCEDURE: CHEST RADIOGRAPH, 1 VIEW HISTORY: pre op COMPARISON: Portable chest 02/01/2017. FINDINGS: LUNGS: No acute infiltrate bilaterally. PLEURA: No pneumothorax or pleural fluid seen. CARDIOVASCULAR: Stable cardiac silhouette noted. Wall stent noted in the region of the right subclavian vein with additional wall stent noted in the region of the left axillary and proximal left subclavian veins. A lengthy apparent dialysis catheter is identified placed at the right upper extremity terminating at the cavoatrial junction region. OSSEOUS STRUCTURES: No significant abnormalities. VISUALIZED UPPER ABDOMEN: Normal. OTHER FINDINGS: None. IMPRESSION: No interval acute cardiopulmonary disease appreciable. Apparent dialysis catheter placed a right upper extremity terminating at the cavoatrial junction as discussed above. Apparent venous wall stents identified bilaterally.
[2017-11-29 07:05] LABS: PROTHROMBIN TIME 11.3 SECONDS (9.7-12.2)
[2017-11-29 07:15] LABS: BASO % 0.6 % (0.0-2.0); EOS # 0.1 K/uL (0.0-0.7); HEMOGLOBIN 11.8 g/dL (11.0-16.0); LYMPH # 0.9 K/uL (1.0-4.3); LYMPH % 15.1 % (20.0-40.0); MEAN CELL VOLUME 95.7 fL (81.0-99.0); MEAN CORPUSCULAR HEMOGLOBIN 31.1 pg (27.0-31.0); MEAN CORPUSCULAR HGB CONC 32.5 g/dL (33.0-37.0); MEAN PLATELET VOLUME 8.3 fL (7.2-11.7); MONO # 0.3 K/uL (0.0-0.8); MONO % 5.5 % (0.0-10.0); NEUT # 4.4 K/uL (1.8-7.0); NEUT % 77.8 % (50.0-75.0); RBC 3.8 Mil/uL (3.80-5.20); RED CELL DISTRIBUTION WIDTH 21.2 % (11.5-14.5); WHITE BLOOD COUNT 5.6 K/uL (4.8-10.8)
[2017-11-29 07:37] LABS: ALB/GLOB RATIO 0.7 (1.0-2.1); CALCIUM 9.4 mg/dl (8.6-10.4)
[2017-11-29] MEDS: (Novolin R) Insulin Human Regular 100 units/ml vial SC SCH ×4 (08:16→22:17)
[2017-11-29] MEDS: Multivitamin Vitamin B Complex (Nephro-Vite) Tab PO SCH (08:16)
[2017-11-29] MEDS ORDERED: Ergocalciferol 50,000 Intl Units Cap PO SCH (10:00)
--- NOTE | 2017-11-29 11:02 | CP.PCM.PN ---
<Eunice Mistry - Last Filed: 11/29/17 14:23> Subjective - Date & Time of Evaluation Date of Evaluation: 11/29/17 Time of Evaluation: 10:59 - Subjective Subjective: Patient seen and examined at bedside. Patient resting comfortably in bed with no new complaints at this time. Patient is nervous about her procedure today and says she has not eaten this morning in preparation for this. She currently denies fever, chills, headache, dizziness, chest pain, SOB, palpitations, cough , abdominal pain, N&V, diarrhea, constipation, and swelling in the lower extremity. Objective - Vital Signs/Intake and Output Vital Signs (last 24 hours): Temp Pulse Resp BP Pulse Ox 98.3 F 80 21 110/63 95 11/29/17 08:00 11/29/17 08:00 11/29/17 08:00 11/29/17 08:00 11/29/17 08:00 - Medications Medications: Current Medications Aspirin (Ecotrin) 81 mg PO DAILY [facility] Brimonidine Tartrate (Alphagan 0.2% Opht) 0 ml OS BID [facility] Clopidogrel Bisulfate (Plavix) 75 mg PO DAILY [facility] Dextrose (Dextrose 50% Inj) 0 ml IV STAT PRN; Protocol PRN Reason: Hypoglycemia Protocol Dextrose (Glutose 15) 0 gm PO ONCE PRN; Protocol PRN Reason: Hypoglycemia Protocol Docusate Sodium (Colace) 100 mg PO BID [facility] Last Admin: 11/28/17 17:57 Dose: 100 mg Emtricitabine/Tenofovir (Truvada 200 Mg-300 Mg) 1 tab PO DAILY [facility] PRN Reason: Protocol Ergocalciferol (Drisdol 50,000 Intl Units Cap) 1 cap PO Q7D [facility] Famotidine (Pepcid) 20 mg PO DAILY [facility] Glucagon (Glucagen Diagnostic Kit) 0 mg IM STAT PRN; Protocol PRN Reason: Hypoglycemia Protocol Piperacillin Sod/Tazobactam Sod (Zosyn 2.25 Gm Iv Premix) 2.25 gm in 50 mls @ 100 mls/hr IVPB Q8H [facility] PRN Reason: Protocol Last Admin: 11/29/17 01:00 Dose: 100 mls/hr Dextrose (Dextrose 5% In Water 1000 Ml) 1,000 mls @ 0 mls/hr IV .Q0M PRN; Protocol; Per Protocol PRN Reason: Hypoglycemia Protocol Insulin Human Regular (Novolin R) 0 unit SC ACHS [facility] PRN Reason: Protocol Last Admin: 11/29/17 08:16 Dose: Not Given Isosorbide Mononitrate (Imdur) 60 mg PO ACB [facility] Last Admin: 11/29/17 08:15 Dose: Not Given Morphine Sulfate (Morphine) 2 mg IVP Q4H PRN PRN Reason: Pain, severe (8-10) Last Admin: 11/29/17 08:07 Dose: 2 mg Raltegravir (Isentress) 400 mg PO BID [facility] PRN Reason: Protocol Last Admin: 11/28/17 17:57 Dose: 400 mg Rosuvastatin Calcium (Crestor) 5 mg PO HS [facility] Last Admin: 11/28/17 23:06 Dose: Not Given Timolol Maleate (Timoptic 0.5% Oph Soln) 1 drop OS BID [facility] Vitamin B Complex/Vit C/Folic Acid (Nephro-Carlos) 1 tab PO 0800 [facility] Last Admin: 11/29/17 08:16 Dose: Not Given - Labs Labs: 11/29/17 06:44 11/29/17 06:44 PT 11.3 SECONDS (9.7-12.2) 11/29/17 06:44 INR 1.0 11/29/17 06:44 APTT 33 SECONDS (21-34) 11/29/17 06:44 - Constitutional Appears: Non-toxic, No Acute Distress - Head Exam Head Exam: ATRAUMATIC, NORMAL INSPECTION, NORMOCEPHALIC - Eye Exam Eye Exam: EOMI Additional comments: Left eye with cataract - ENT Exam ENT Exam: Mucous Membranes Moist - Neck Exam Neck Exam: Normal Inspection - Respiratory Exam Respiratory Exam: Clear to Ausculation Bilateral, NORMAL BREATHING PATTERN. absent: Accessory Muscle Use, Rales, Rhonchi, Wheezes, Respiratory Distress - Cardiovascular Exam Cardiovascular Exam: RRR, +S1, +S2. absent: Bradycardia, Tachycardia, Diastolic murmur, Gallop, Rubs, Murmur - GI/Abdominal Exam GI & Abdominal Exam: Soft, Normal Bowel Sounds. absent: Distended, Tenderness - Extremities Exam Extremities Exam: Pedal Edema (1+ pitting), Tenderness (left foot). absent: Calf Tenderness Additional comments: s/p right AKA 4 cm x 2 cm ulcer on left heel, pink base, no drainage, erythema, or malodor Unable to palpate pulses on the left; cold to the touch - Neurological Exam Neurological Exam: Alert, Awake, Oriented x3 - Psychiatric Exam Psychiatric exam: Normal Affect, Normal Mood - Skin Skin Exam: Dry, Intact, Normal Color, Warm Assessment and Plan - Assessment and Plan (Free Text) Plan: Peripheral Vascular Disease * Dr. Sinclair consulted - help appreciated * For procedure today * CXR, EKG, and type/screen done * CTA with runoff: severe stenosis and occlusions of the left superficial femoral artery and popliteal artery (see full report) * Lipid panel: Trig 116, Chol 131, LDL 49, HDL 29 * HbA1c 5.8 * Plavix 75 mg * Aspirin 81 mg * Morphine 2 mg PRN severe pain Transaminitis * will monitor History of ESRD on HD * Dr. Cao consulted - help appreciated * Continue dialysis as scheduled History of Chronic Left Heel Ulcer * Dr. Elder consulted - help appreciated * will refer to his recs for wound care * f/u left foot XR * f/u blood cultures History of DM * Accuchecks ACHS * Insulin SS medium dose * Hypoglycemic protocol * Hold Nateglinide * Lipid panel: Trig 116, Chol 131, LDL 49, HDL 29 * HbA1c 5.8 History of HTN * continue home meds: Imdur 60 mg ACB History of HLD * Not on statin at home - will start crestor 5 mg PO HS * Lipid panel: Trig 116, Chol 131, LDL 49, HDL 29 History of HIV * Continue home meds: Truvada and Isentress History of Left Eye Cataract * Continue home eye drops: Timolol and Brimonidine History of Constipation * Colace 100 mg BID Prophylaxis * GI not indicated however she takes pepcid 20 mg QD at home so will start this * DVT: Hold heparin in case of procedure, SCD contraindicated <Aakash Regan - Last Filed: 11/29/17 14:54> Objective - Vital Signs/Intake and Output Vital Signs (last 24 hours): Temp Pulse Resp BP Pulse Ox 98.3 F 80 21 110/63 95 11/29/17 08:00 11/29/17 08:00 11/29/17 08:00 11/29/17 08:00 11/29/17 08:00 - Medications Medications: Current Medications Aspirin (Ecotrin) 81 mg PO DAILY [facility] Last Admin: 11/29/17 11:07 Dose: Not Given Brimonidine Tartrate (Alphagan 0.2% Opht) 0 ml OS BID [facility] Last Admin: 11/29/17 11:15 Dose: 1 drop Clopidogrel Bisulfate (Plavix) 75 mg PO DAILY [facility] Last Admin: 11/29/17 11:08 Dose: Not Given Dextrose (Dextrose 50% Inj) 0 ml IV STAT PRN; Protocol PRN Reason: Hypoglycemia Protocol Dextrose (Glutose 15) 0 gm PO ONCE PRN; Protocol PRN Reason: Hypoglycemia Protocol Docusate Sodium (Colace) 100 mg PO BID [facility] Last Admin: 11/29/17 11:06 Dose: Not Given Emtricitabine/Tenofovir (Truvada 200 Mg-300 Mg) 1 tab PO DAILY [facility] PRN Reason: Protocol Last Admin: 11/29/17 11:09 Dose: Not Given Ergocalciferol (Drisdol 50,000 Intl Units Cap) 1 cap PO Q7D [facility] Last Admin: 11/29/17 11:07 Dose: Not Given Famotidine (Pepcid) 20 mg PO DAILY [facility] Last Admin: 11/29/17 11:08 Dose: Not Given Glucagon (Glucagen Diagnostic Kit) 0 mg IM STAT PRN; Protocol PRN Reason: Hypoglycemia Protocol Piperacillin Sod/Tazobactam Sod (Zosyn 2.25 Gm Iv Premix) 2.25 gm in 50 mls @ 100 mls/hr IVPB Q8H [facility] PRN Reason: Protocol Last Admin: 11/29/17 11:10 Dose: 100 mls/hr Dextrose (Dextrose 5% In Water 1000 Ml) 1,000 mls @ 0 mls/hr IV .Q0M PRN; Protocol; Per Protocol PRN Reason: Hypoglycemia Protocol Insulin Human Regular (Novolin R) 0 unit SC ACHS [facility] PRN Reason: Protocol Last Admin: 11/29/17 13:04 Dose: Not Given Isosorbide Mononitrate (Imdur) 60 mg PO ACB [facility] Last Admin: 11/29/17 08:15 Dose: Not Given Morphine Sulfate (Morphine) 2 mg IVP Q4H PRN PRN Reason: Pain, severe (8-10) Last Admin: 11/29/17 08:07 Dose: 2 mg Raltegravir (Isentress) 400 mg PO BID [facility] PRN Reason: Protocol Last Admin: 11/29/17 11:07 Dose: Not Given Rosuvastatin Calcium (Crestor) 5 mg PO HS [facility] Last Admin: 11/28/17 23:06 Dose: Not Given Timolol Maleate (Timoptic 0.5% Ophth Soln) 1 drop OS BID [facility] Last Admin: 11/29/17 11:14 Dose: 1 drop Vitamin B Complex/Vit C/Folic Acid (Nephro-Carlos) 1 tab PO 0800 [facility] Last Admin: 11/29/17 08:16 Dose: Not Given - Labs Labs: 11/29/17 06:44 11/29/17 06:44 PT 11.3 SECONDS (9.7-12.2) 11/29/17 06:44 INR 1.0 11/29/17 06:44 APTT 33 SECONDS (21-34) 11/29/17 06:44 Attending/Attestation - Attestation I have personally seen and examined this patient.: Yes I have fully participated in the care of the patient.: Yes I have reviewed all pertinent clinical information, including history, physical exam and plan: Yes Notes (Text): 11/29/17 14:51 Medical attending: Patient was seen and examined by me, agrees the above note by medical receptionist medical assistant. We saw the patient together The patient reported that she was still having ongoing pain in the left lower extremity. Like she mentioned yesterday it's very difficult for her to move around due to the pain. The foot still feels a little bit cool on palpation. X-rays of the foot returned and it reported that it didn't look to be osteomyelitis in that area. She does not have a white blood cell count or fever. She also underwent a CTA with lower extremity runoff the results of which shows that she has a lot of occlusions and near stenosis is going on, hopefully vascular surgery will be able to do something for her. Later on today she'll be undergoing hemodialysis as well thank you Aakash Regan
[2017-11-29] MEDS: Emtricitabine-Tenofovir 200 mg-300 mg Tab PO SCH (11:09)
[2017-11-29] MEDS: Brimonidine 0.2% Opth Sol (5ml) OS SCH ×2 (11:15→21:57)
[2017-11-29] MEDS ORDERED: LIDOCAINE 2% PF (2ML) ONE (13:51)
[2017-11-29] MEDS ORDERED: Lidocaine/Epinephrine 1% 1:100000 10 ML IJ ONE (13:51)
[2017-11-29] MEDS ORDERED: Lidocaine Hydrochloride 15 ML INJ ONE (13:53)
[2017-11-29] MEDS ORDERED: Iodixanol 320 MG/ML 200 ML BOTTLE IV ONE (13:54)
[2017-11-29] MEDS ORDERED: Iodixanol 320 MG/ML 100 ML BOTTLE IV ONE (14:00)
[2017-11-29] MEDS ORDERED: Midazolam 2 MG/2 ML VIAL ONE ×3 (14:35→15:34)
[2017-11-29] MEDS ORDERED: Propofol 10 mg/ml Inj (20 ML) ONE (15:46)
--- NOTE | 2017-11-29 16:27 | PCM.SURG1 ---
Surgeon's Initial Post Op Note - Surgeon's Notes Surgeon: Yahir House Worker: 0 Type of Anesthesia: IV Sedation Anesthesia Administered By: amadou Pre-Operative Diagnosis: rest pain left foot. pvd Operative Findings: left sfa occluded. single vessel run off via anterior tibial. severe pedal disease. perclose right groin Post-Operative Diagnosis: same Operation Performed: aortofemoral angiogram via right groin. slective angiogram lefrt femoral artery. pathway atherectomy sfa/pop. and 6x60 zilver stent. balloon angioplasty left anterior tibial 2mm. perclose right Specimen/Specimens Removed: 0 Estimated Blood Loss: EBL {In ML}: 55 Blood Products Given: N/A Drains Used: No Drains Post-Op Condition: Good Date of Surgery/Procedure: 11/29/17 Time of Surgery/Procedure: 16:30
--- NOTE | 2017-11-29 23:19 | CARD ---
APPROVED REPORT EKG Measurement Heart [id number] <Conclusion> Normal sinus rhythm Poor R wave progression Abnormal ECG
[2017-11-30 01:08] VITALS: RESP 20
[2017-11-30] MEDS: Piperacill/Tazo 2.25gm in Dex 2.25 GM/50 ML BAG IVPB SCH ×3 (01:56→17:24)
[2017-11-30 07:42] LABS: ALB/GLOB RATIO 0.7 (1.0-2.1); ALBUMIN 3.5 g/dL (3.5-5.0); CALCIUM 8.7 mg/dl (8.6-10.4)
--- NOTE | 2017-11-30 07:45 | CP.PCM.CON ---
History of Present Illness - History of Present Illness History of Present Illness: Podiatry Consult Note - Dr. Alonso 57F pmhx of Anxiety, CHF, Dementia, Diabetes, HIV, HTN, Hyperthyroidism, Hypothyroidism, End Stage Renal Disease, Chronic Kidney Disease seen and evaluated at bedside for chronic wound to left heel. Patient states her wound has been improving since her wound debridement in May 2017 but recently became dark in color. Patient denies any pain to her heel wound today; states the pain is more in her forefoot. Of note, patient has a BKA on the right lower extremity. Denies other pedal complaints. Denies N/V/F/D/C/SOB. Review of Systems - Review of Systems All systems: reviewed and no additional remarkable complaints except (as per HPI ) Past Patient History - Infectious Disease Hx of Infectious Diseases: None - Past Medical History & Family History Past Medical History?: Yes - Past Social History Smoking Status: Former Smoker - CARDIAC Hx Cardiac Disorders: Yes Hx Congestive Heart Failure: Yes Hx Hypertension: Yes - PULMONARY Hx Respiratory Disorders: No - NEUROLOGICAL Hx Neurological Disorder: Yes Hx Dementia: Yes - HEENT Hx HEENT Problems: Yes (wears glasses) Hx Glaucoma: Yes - RENAL Hx Chronic Kidney Disease: Yes Date of Last Dialysis Treatment: 11/27/17 - ENDOCRINE/METABOLIC Hx Hypothyroidism: Yes - HEMATOLOGICAL/ONCOLOGICAL Hx Blood Disorders: Yes Hx Human Immunodeficiency Virus (HIV): Yes - INTEGUMENTARY Hx Dermatological Problems: No - MUSCULOSKELETAL/RHEUMATOLOGICAL Hx Musculoskeletal Disorders: Yes (Right BKA) Hx Falls: Yes - GASTROINTESTINAL Hx Gastrointestinal Disorders: No - GENITOURINARY/GYNECOLOGICAL Hx Genitourinary Disorders: Yes Other/Comment: oliguria, on hemodialysis MWF - PSYCHIATRIC Hx Psychophysiologic Disorder: Yes Hx Anxiety: Yes Hx Substance Use: No - SURGICAL HISTORY Hx Surgeries: Yes Hx Amputation: Yes (Right BKA) - ANESTHESIA Hx Anesthesia: Yes Hx Anesthesia Reactions: No Hx Malignant Hyperthermia: No Meds Allergies/Adverse Reactions: Allergies Allergy/AdvReac Type Severity Reaction Status Date / Time No Known Allergies Allergy Verified 11/14/17 11:49 - Medications Medications: Current Medications Aspirin (Ecotrin) 81 mg PO DAILY [facility] Last Admin: 11/29/17 11:07 Dose: Not Given Brimonidine Tartrate (Alphagan 0.2% Opht) 0 ml OS BID [facility] Last Admin: 05/04/18 21:57 Dose: 1 drop Clopidogrel Bisulfate (Plavix) 75 mg PO DAILY [facility] Last Admin: 11/29/17 11:08 Dose: Not Given Dextrose (Dextrose 50% Inj) 0 ml IV STAT PRN; Protocol PRN Reason: Hypoglycemia Protocol Dextrose (Glutose 15) 0 gm PO ONCE PRN; Protocol PRN Reason: Hypoglycemia Protocol Docusate Sodium (Colace) 100 mg PO BID [facility] Last Admin: 11/29/17 21:56 Dose: 100 mg Emtricitabine/Tenofovir (Truvada 200 Mg-300 Mg) 1 tab PO DAILY [facility] PRN Reason: Protocol Last Admin: 11/29/17 11:09 Dose: Not Given Ergocalciferol (Drisdol 50,000 Intl Units Cap) 1 cap PO Q7D [facility] Last Admin: 11/29/17 11:07 Dose: Not Given Famotidine (Pepcid) 20 mg PO DAILY [facility] Last Admin: 11/29/17 11:08 Dose: Not Given Glucagon (Glucagen Diagnostic Kit) 0 mg IM STAT PRN; Protocol PRN Reason: Hypoglycemia Protocol Heparin Sodium (Porcine) (Heparin) 3,800 units IV MWF [facility] Stop: 12/11/17 09:01 Last Admin: 11/29/17 20:57 Dose: 3,800 units Piperacillin Sod/Tazobactam Sod (Zosyn 2.25 Gm Iv Premix) 2.25 gm in 50 mls @ 100 mls/hr IVPB Q8H [facility] PRN Reason: Protocol Last Admin: 11/30/17 01:56 Dose: 100 mls/hr Dextrose (Dextrose 5% In Water 1000 Ml) 1,000 mls @ 0 mls/hr IV .Q0M PRN; Protocol; Per Protocol PRN Reason: Hypoglycemia Protocol Insulin Human Regular (Novolin R) 0 unit SC ACHS [facility] PRN Reason: Protocol Last Admin: 11/29/17 22:17 Dose: Not Given Isosorbide Mononitrate (Imdur) 60 mg PO ACB [facility] Last Admin: 11/29/17 08:15 Dose: Not Given Morphine Sulfate (Morphine) 2 mg IVP Q4H PRN PRN Reason: Pain, severe (8-10) Last Admin: 11/29/17 08:07 Dose: 2 mg Raltegravir (Isentress) 400 mg PO BID [facility] PRN Reason: Protocol Last Admin: 11/29/17 21:56 Dose: 400 mg Rosuvastatin Calcium (Crestor) 5 mg PO HS [facility] Last Admin: 11/29/17 21:56 Dose: 5 mg Timolol Maleate (Timoptic 0.5% Ophth Soln) 1 drop OS BID [facility] Last Admin: 11/29/17 21:57 Dose: 1 drop Vitamin B Complex/Vit C/Folic Acid (Nephro-Carlos) 1 tab PO 0800 [facility] Last Admin: 11/29/17 08:16 Dose: Not Given Physical Exam - Constitutional Appears: Well, Non-toxic, No Acute Distress - Extremities Exam Additional comments: 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 focused: Vasc: lightly palpable DP and PT pulses, TG wnl, CFT < 4 sec to all digits Neuro: grossly diminished derm: posterior heel ulceration measuring 1 x 2 x 0.3 cm on the lateral aspect noted to have a necrotic base and hyperkeratotic rim; no drainage; no purulence ; no fluctuance; no ascending cellulitis; diffuse xerosis noted ortho: contracted lower extremity, pain on palpation in forefoot, no pain on palpation posterior heel - Neurological Exam Neurological exam: Alert, Oriented x3 - Psychiatric Exam Psychiatric exam: Normal Affect, Normal Mood Results - Vital Signs Recent Vital Signs: Last Vital Signs Temp 99.1 F 11/30/17 00:00 Pulse 75 11/30/17 00:00 Resp 20 11/30/17 00:00 BP 100/65 11/30/17 00:00 Pulse Ox 100 11/30/17 00:00 - Labs Result Diagrams: 11/29/17 06:44 11/29/17 06:44 Labs: Laboratory Results - last 24 hr 11/29/17 11/29/17 11/29/17 06:44 06:44 11:19 POC Glucose (mg/dL) 102 Hemoglobin A1c 5.8 AST 308 H D 11/29/17 11/29/17 11/29/17 21:19 21:22 22:14 POC Glucose (mg/dL) 48 L 35 L* 95 Hemoglobin A1c AST 11/30/17 02:18 POC Glucose (mg/dL) 112 H Hemoglobin A1c AST Assessment & Plan - Assessment and Plan (Free Text) Assessment: 57 y/o female with pmhx of Anxiety, CHF, Dementia, Diabetes, HIV, HTN, Hyperthyroidism, Hypothyroidism, End Stage Renal Disease, Chronic Kidney Disease , with nonhealing ulceration left heel Plan: Patient seen and evaluated alongside attending, Dr. Alonso Afebrile, WBC 5.6 Left foot XR: Negative for OM CTA: occlusion on L SFA and popliteal, severe stenosis/occlusion L peroneal & [employer] Angio today with vascular Continue local wound care: bactroban, DSD Podiatry will continue to follow
[2017-11-30] MEDS: (Novolin R) Insulin Human Regular 100 units/ml vial SC SCH ×4 (07:56→22:07)
[2017-11-30] MEDS: Multivitamin Vitamin B Complex (Nephro-Vite) Tab PO SCH (08:47)
--- NOTE | 2017-11-30 09:00 | CP.PCM.PN ---
<Aakash He - Last Filed: 11/30/17 16:40> Subjective - Date & Time of Evaluation Date of Evaluation: 11/30/17 Time of Evaluation: 08:05 - Subjective Subjective: PGY2 Medicine note for Dr. Regan Patient seen and examined at bedside. She is POD#1 selective angiogram left femoral artery with pathway athrectomy of the sfa/pop. She tolerated the procedure well. Patient resting comfortably, stating that her LLE is coke still cleaner to touch, but the pain has improved since having the procedure. 12 point ROS otherwise negative. Objective - Vital Signs/Intake and Output Vital Signs (last 24 hours): Temp Pulse Resp BP Pulse Ox 98.5 F 73 20 104/68 95 11/30/17 07:56 11/30/17 07:56 11/30/17 07:56 11/30/17 07:56 11/30/17 07:56 Intake and Output: 11/30/17 11/30/17 06:59 18:59 Intake Total 340 Balance 340 - Medications Medications: Current Medications Aspirin (Ecotrin) 81 mg PO DAILY [facility] Last Admin: 11/29/17 11:07 Dose: Not Given Brimonidine Tartrate (Alphagan 0.2% Opht) 0 ml OS BID [facility] Last Admin: 11/29/17 21:57 Dose: 1 drop Clopidogrel Bisulfate (Plavix) 75 mg PO DAILY [facility] Last Admin: 11/29/17 11:08 Dose: Not Given Dextrose (Dextrose 50% Inj) 0 ml IV STAT PRN; Protocol PRN Reason: Hypoglycemia Protocol Dextrose (Glutose 15) 0 gm PO ONCE PRN; Protocol PRN Reason: Hypoglycemia Protocol Docusate Sodium (Colace) 100 mg PO BID [facility] Last Admin: 11/29/17 21:56 Dose: 100 mg Emtricitabine/Tenofovir (Truvada 200 Mg-300 Mg) 1 tab PO DAILY [facility] PRN Reason: Protocol Last Admin: 11/29/17 11:09 Dose: Not Given Ergocalciferol (Drisdol 50,000 Intl Units Cap) 1 cap PO Q7D [facility] Last Admin: 11/29/17 11:07 Dose: Not Given Famotidine (Pepcid) 20 mg PO DAILY [facility] Last Admin: 11/29/17 11:08 Dose: Not Given Glucagon (Glucagen Diagnostic Kit) 0 mg IM STAT PRN; Protocol PRN Reason: Hypoglycemia Protocol Heparin Sodium (Porcine) (Heparin) 3,800 units IV MWF [facility] Stop: 12/11/17 09:01 Last Admin: 11/29/17 20:57 Dose: 3,800 units Piperacillin Sod/Tazobactam Sod (Zosyn 2.25 Gm Iv Premix) 2.25 gm in 50 mls @ 100 mls/hr IVPB Q8H [facility] PRN Reason: Protocol Last Admin: 11/30/17 01:56 Dose: 100 mls/hr Dextrose (Dextrose 5% In Water 1000 Ml) 1,000 mls @ 0 mls/hr IV .Q0M PRN; Protocol; Per Protocol PRN Reason: Hypoglycemia Protocol Insulin Human Regular (Novolin R) 0 unit SC ACHS [facility] PRN Reason: Protocol Last Admin: 11/30/17 07:56 Dose: Not Given Isosorbide Mononitrate (Imdur) 60 mg PO ACB [facility] Last Admin: 11/30/17 08:30 Dose: Not Given Morphine Sulfate (Morphine) 2 mg IVP Q4H PRN PRN Reason: Pain, severe (8-10) Last Admin: 11/29/17 08:07 Dose: 2 mg Mupirocin (Bactroban Ointment) 0 gm TOP BID [facility] Raltegravir (Isentress) 400 mg PO BID [facility] PRN Reason: Protocol Last Admin: 11/29/17 21:56 Dose: 400 mg Rosuvastatin Calcium (Crestor) 5 mg PO HS [facility] Last Admin: 11/29/17 21:56 Dose: 5 mg Timolol Maleate (Timoptic 0.5% [facility]) 1 drop OS BID [facility] Last Admin: 11/29/17 21:57 Dose: 1 drop Vitamin B Complex/Vit C/Folic Acid (Nephro-Carlos) 1 tab PO 0800 [facility] Last Admin: 11/30/17 08:47 Dose: 1 tab - Labs Labs: 11/29/17 06:44 11/30/17 07:07 PT 11.3 SECONDS (9.7-12.2) 11/29/17 06:44 INR 1.0 11/29/17 06:44 APTT 33 SECONDS (21-34) 11/29/17 06:44 - Additional Findings Additional findings: - Constitutional Appears: Non-toxic, No Acute Distress - Head Exam Head Exam: ATRAUMATIC, NORMAL INSPECTION, NORMOCEPHALIC - Eye Exam Eye Exam: EOMI Additional comments: Left eye with cataract - ENT Exam ENT Exam: Mucous Membranes Moist - Neck Exam Neck Exam: Normal Inspection - Respiratory Exam Respiratory Exam: Clear to Ausculation Bilateral, NORMAL BREATHING PATTERN. absent: Accessory Muscle Use, Rales, Rhonchi, Wheezes, Respiratory Distress - Cardiovascular Exam Cardiovascular Exam: RRR, +S1, +S2. absent: Bradycardia, Tachycardia, Diastolic murmur, Gallop, Rubs, Murmur - GI/Abdominal Exam GI & Abdominal Exam: Soft, Normal Bowel Sounds. absent: Distended, Tenderness - Extremities Exam Extremities Exam: Pedal Edema (1+ pitting), Tenderness (left foot). absent: Calf Tenderness, Pedal pulses (could not palpate DP or TP pulses on LLE) Additional comments: s/p right AKA 4 cm x 2 cm ulcer on left heel, pink base, no drainage, erythema, or malodor - Neurological Exam Neurological Exam: Alert, Awake, Oriented x3 - Psychiatric Exam Psychiatric exam: Normal Affect, Normal Mood - Skin Skin Exam: Dry, Intact, Normal Color, Warm Assessment and Plan - Assessment and Plan (Free Text) Assessment: Peripheral Vascular Disease * 11/30: POD#1 selective angiogram left femoral artery with pathway athrectomy of the sfa/pop. Tolerated procedure well. Non-palpable DP/TP pulse. * Dr. Sinclair consulted - help appreciated * CTA with runoff: severe stenosis and occlusions of the left superficial femoral artery and popliteal artery (see full report) * Lipid panel: Trig 116, Chol 131, LDL 49, HDL 29 * HbA1c 5.8 * Plavix 75 mg * Aspirin 81 mg * Morphine 2 mg PRN severe pain Transaminitis * 11/30: AST, ALT, AlkPhos down-trending. * will monitor History of ESRD on HD -- * Dr. Cao consulted - help appreciated * Continue dialysis as scheduled History of Chronic Left Heel Ulcer * 11/30: Podiatry will follow pt in house, no plan for surgery. * Dr. Elder consulted - help appreciated * will refer to his recs for wound care * blood cultures negative x1d History of DM * Accuchecks ACHS * Insulin SS medium dose * Hypoglycemic protocol * Hold Nateglinide * Lipid panel: Trig 116, Chol 131, LDL 49, HDL 29 * HbA1c 5.8 History of HTN * continue home meds: Imdur 60 mg ACB History of HLD * Not on statin at home - will start crestor 5 mg PO HS * Lipid panel: Trig 116, Chol 131, LDL 49, HDL 29 History of HIV * Continue home meds: Truvada and Isentress History of Left Eye Cataract * Continue home eye drops: Timolol and Brimonidine History of Constipation * Colace 100 mg BID Prophylaxis * GI not indicated however she takes pepcid 20 mg QD at home so will start this * DVT: Hold heparin in case of procedure, SCD contraindicated Disposition: [facility] saturday12/02/17 vs home discharge tomorrow - patient currently deciding. <Aakash Regan - Last Filed: 11/30/17 16:51> Objective - Vital Signs/Intake and Output Vital Signs (last 24 hours): Temp Pulse Resp BP Pulse Ox 98.5 F 73 20 104/68 95 11/30/17 07:56 11/30/17 07:56 11/30/17 07:56 11/30/17 07:56 11/30/17 07:56 Intake and Output: 11/30/17 11/30/17 06:59 18:59 Intake Total 340 410 Balance 340 410 - Medications Medications: Current Medications Aspirin (Ecotrin) 81 mg PO DAILY [facility] Last Admin: 11/30/17 09:22 Dose: 81 mg Brimonidine Tartrate (Alphagan 0.2% Opht) 0 ml OS BID [facility] Last Admin: 11/30/17 09:23 Dose: 1 drop Clopidogrel Bisulfate (Plavix) 75 mg PO DAILY [facility] Last Admin: 11/30/17 09:22 Dose: 75 mg Dextrose (Dextrose 50% Inj) 0 ml IV STAT PRN; Protocol PRN Reason: Hypoglycemia Protocol Dextrose (Glutose 15) 0 gm PO ONCE PRN; Protocol PRN Reason: Hypoglycemia Protocol Docusate Sodium (Colace) 100 mg PO BID [facility] Last Admin: 11/30/17 09:22 Dose: 100 mg Emtricitabine/Tenofovir (Truvada 200 Mg-300 Mg) 1 tab PO DAILY [facility] PRN Reason: Protocol Last Admin: 11/30/17 09:22 Dose: 1 tab Ergocalciferol (Drisdol 50,000 Intl Units Cap) 1 cap PO Q7D [facility] Last Admin: 11/29/17 11:07 Dose: Not Given Famotidine (Pepcid) 20 mg PO DAILY [facility] Last Admin: 11/30/17 09:22 Dose: 20 mg Glucagon (Glucagen Diagnostic Kit) 0 mg IM STAT PRN; Protocol PRN Reason: Hypoglycemia Protocol Heparin Sodium (Porcine) (Heparin) 3,800 units IV MWF [facility] Stop: 12/11/17 09:01 Last Admin: 11/29/17 20:57 Dose: 3,800 units Piperacillin Sod/Tazobactam Sod (Zosyn 2.25 Gm Iv Premix) 2.25 gm in 50 mls @ 100 mls/hr IVPB Q8H [facility] PRN Reason: Protocol Last Admin: 11/30/17 09:21 Dose: 100 mls/hr Dextrose (Dextrose 5% In Water 1000 Ml) 1,000 mls @ 0 mls/hr IV .Q0M PRN; Protocol; Per Protocol PRN Reason: Hypoglycemia Protocol Insulin Human Regular (Novolin R) 0 unit SC ACHS [facility] PRN Reason: Protocol Last Admin: 11/30/17 16:44 Dose: Not Given Isosorbide Mononitrate (Imdur) 60 mg PO ACB [facility] Last Admin: 11/30/17 08:30 Dose: Not Given Morphine Sulfate (Morphine) 2 mg IVP Q4H PRN PRN Reason: Pain, severe (8-10) Last Admin: 11/30/17 13:36 Dose: 2 mg Mupirocin (Bactroban Ointment) 0 gm TOP BID [facility] Last Admin: 11/30/17 09:24 Dose: 1 applic Raltegravir (Isentress) 400 mg PO BID [facility] PRN Reason: Protocol Last Admin: 11/30/17 09:22 Dose: 400 mg Rosuvastatin Calcium (Crestor) 5 mg PO HS [facility] Last Admin: 11/29/17 21:56 Dose: 5 mg Timolol Maleate (Timoptic 0.5% [facility]) 1 drop OS BID [facility] Last Admin: 11/30/17 09:23 Dose: 1 drop Vitamin B Complex/Vit C/Folic Acid (Nephro-Carlos) 1 tab PO 0800 [facility] Last Admin: 11/30/17 08:47 Dose: 1 tab - Labs Labs: 11/30/17 11:18 11/30/17 07:07 PT 11.3 SECONDS (9.7-12.2) 11/29/17 06:44 INR 1.0 11/29/17 06:44 APTT 33 SECONDS (21-34) 11/29/17 06:44 Attending/Attestation - Attestation I have personally seen and examined this patient.: Yes I have fully participated in the care of the patient.: Yes I have reviewed all pertinent clinical information, including history, physical exam and plan: Yes Notes (Text): Medical attending: Patient was seen and examined by me. Agree with the above note by the resident She is reporting somewhat less pain than yesterday. Yesterday she underwent angiogram of the left femoral artery with athrectomy of the sfa/popliteal The XRAYs of the foot does not suggest osteomylitis. She does not have a WBC count. thank you Aakash Regan 11/30/17 16:50
[2017-11-30] MEDS: Emtricitabine-Tenofovir 200 mg-300 mg Tab PO SCH (09:22)
[2017-11-30] MEDS: Brimonidine 0.2% Opth Sol (5ml) OS SCH ×2 (09:23→17:23)
--- NOTE | 2017-11-30 10:18 | CP.PCM.PN ---
Subjective - Date & Time of Evaluation Date of Evaluation: 11/30/17 Time of Evaluation: 10:16 - Subjective Subjective: Vascular surgery progress note for Dr. Bret Rai, PGY-1 Pt S & E at bedside at 0720 Pt reports no pain of LLE unless touched. Denies N & V, F & C, numbness or tingling. Tolerating diet. Objective - Vital Signs/Intake and Output Vital Signs (last 24 hours): Temp Pulse Resp BP Pulse Ox 98.5 F 73 20 104/68 95 11/30/17 07:56 11/30/17 07:56 11/30/17 07:56 11/30/17 07:56 11/30/17 07:56 Intake and Output: 11/30/17 11/30/17 06:59 18:59 Intake Total 340 Balance 340 - Medications Medications: Current Medications Aspirin (Ecotrin) 81 mg PO DAILY [facility] Last Admin: 11/30/17 09:22 Dose: 81 mg Brimonidine Tartrate (Alphagan 0.2% Opht) 0 ml OS BID [facility] Last Admin: 11/30/17 09:23 Dose: 1 drop Clopidogrel Bisulfate (Plavix) 75 mg PO DAILY [facility] Last Admin: 11/30/17 09:22 Dose: 75 mg Dextrose (Dextrose 50% Inj) 0 ml IV STAT PRN; Protocol PRN Reason: Hypoglycemia Protocol Dextrose (Glutose 15) 0 gm PO ONCE PRN; Protocol PRN Reason: Hypoglycemia Protocol Docusate Sodium (Colace) 100 mg PO BID [facility] Last Admin: 11/30/17 09:22 Dose: 100 mg Emtricitabine/Tenofovir (Truvada 200 Mg-300 Mg) 1 tab PO DAILY [facility] PRN Reason: Protocol Last Admin: 11/30/17 09:22 Dose: 1 tab Ergocalciferol (Drisdol 50,000 Intl Units Cap) 1 cap PO Q7D [facility] Last Admin: 11/29/17 11:07 Dose: Not Given Famotidine (Pepcid) 20 mg PO DAILY [facility] Last Admin: 11/30/17 09:22 Dose: 20 mg Glucagon (Glucagen Diagnostic Kit) 0 mg IM STAT PRN; Protocol PRN Reason: Hypoglycemia Protocol Heparin Sodium (Porcine) (Heparin) 3,800 units IV F [facility] Stop: 12/11/17 09:01 Last Admin: 11/29/17 20:57 Dose: 3,800 units Piperacillin Sod/Tazobactam Sod (Zosyn 2.25 Gm Iv Premix) 2.25 gm in 50 mls @ 100 mls/hr IVPB Q8H [facility] PRN Reason: Protocol Last Admin: 11/30/17 09:21 Dose: 100 mls/hr Dextrose (Dextrose 5% In Water 1000 Ml) 1,000 mls @ 0 mls/hr IV .Q0M PRN; Protocol; Per Protocol PRN Reason: Hypoglycemia Protocol Insulin Human Regular (Novolin R) 0 unit SC ACHS [facility] PRN Reason: Protocol Last Admin: 11/30/17 07:56 Dose: Not Given Isosorbide Mononitrate (Imdur) 60 mg PO ACB [facility] Last Admin: 11/30/17 08:30 Dose: Not Given Morphine Sulfate (Morphine) 2 mg IVP Q4H PRN PRN Reason: Pain, severe (8-10) Last Admin: 11/29/17 08:07 Dose: 2 mg Mupirocin (Bactroban Ointment) 0 gm TOP BID [facility] Last Admin: 11/30/17 09:24 Dose: 1 applic Raltegravir (Isentress) 400 mg PO BID [facility] PRN Reason: Protocol Last Admin: 11/30/17 09:22 Dose: 400 mg Rosuvastatin Calcium (Crestor) 5 mg PO HS [facility] Last Admin: 11/29/17 21:56 Dose: 5 mg Timolol Maleate (Timoptic 0.5% [facility]) 1 drop OS BID [facility] Last Admin: 11/30/17 09:23 Dose: 1 drop Vitamin B Complex/Vit C/Folic Acid (Nephro-Carlos) 1 tab PO 0800 [facility] Last Admin: 11/30/17 08:47 Dose: 1 tab - Labs Labs: 11/29/17 06:44 11/30/17 07:07 PT 11.3 SECONDS (9.7-12.2) 11/29/17 06:44 INR 1.0 11/29/17 06:44 APTT 33 SECONDS (21-34) 11/29/17 06:44 - Constitutional Appears: Non-toxic, No Acute Distress - Head Exam Head Exam: ATRAUMATIC, NORMAL INSPECTION, NORMOCEPHALIC - Eye Exam Eye Exam: EOMI, Normal appearance - ENT Exam ENT Exam: Mucous Membranes Moist, Normal Exam - Neck Exam Neck Exam: Full ROM, Normal Inspection - Respiratory Exam Respiratory Exam: NORMAL BREATHING PATTERN - Cardiovascular Exam Cardiovascular Exam: REGULAR RHYTHM, +S1, +S2 - GI/Abdominal Exam GI & Abdominal Exam: Soft. absent: Distended, Tenderness - Extremities Exam Extremities Exam: Tenderness (LLE is diffusely tender. Unable to appreciate DP or TP pulses). absent: Normal Inspection (R BKA, well healed. R groin site without masses, hematoma- dressing is clean/dry/intact. ) - Neurological Exam Neurological Exam: Alert, Awake, CN II-XII Intact, Oriented x3 - Psychiatric Exam Psychiatric exam: Normal Affect, Normal Mood - Skin Skin Exam: Dry, Intact, Normal Color, Warm Assessment and Plan - Assessment and Plan (Free Text) Assessment: 57F POD#1 s/p selective angiogram L fem artery, pathway atherectomy SFA/ popliteal, stent and balloon angioplasty of L anterior tibial Artery Plan: Monitor pulses Pain control PRN Activity as tolerated Will TARUN attending Cecelia, PGY-1
[2017-11-30 11:22] LABS: BASO % 0.3 % (0.0-2.0); EOS # 0.1 K/uL (0.0-0.7); EOS % 1.6 % (0.0-4.0); HEMOGLOBIN 11.8 g/dL (11.0-16.0); LYMPH # 0.8 K/uL (1.0-4.3); LYMPH % 15.9 % (20.0-40.0); MEAN CELL VOLUME 95.9 fL (81.0-99.0); MEAN CORPUSCULAR HEMOGLOBIN 31.6 pg (27.0-31.0); MONO # 0.5 K/uL (0.0-0.8); NEUT # 3.6 K/uL (1.8-7.0); NEUT % 72.2 % (50.0-75.0); NRBC % 0.1 % (0.0-2.0); RBC 3.74 Mil/uL (3.80-5.20); RED CELL DISTRIBUTION WIDTH 20.9 % (11.5-14.5)
--- NOTE | 2017-11-30 12:14 | VAS ---
DATE: 11/29/2017 PREOPERATIVE DIAGNOSES: Rest pain, left foot, included stents, history of peripheral vascular disease, renal failure. The patient is a 57-year-old woman who previously underwent amputation of the right leg, now being catheter. OPERATIVE FINDINGS: 1. The aorta was free of any significant occlusive disease. The renal arteries are not well visualized on the study. Both common iliac, internal iliac, and external iliac arteries were widely patent. 2. The common femoral arteries are widely patent. The profunda femoris arteries were widely patent and the superficial femoral arteries were widely patent at the origin. The patient previously had an amputation of the right leg and because of her body habitus, we did not take additional films on the right side to confine this to the left side. The superficial femoral artery was occluded and reconstituted at the level of the anterior tibial artery. Below this the anterior tibial artery continued down to the foot, that was severely diseased as it crossed the ankle joint. No additional vessels, posterior tibial or peroneal was seen distally. Subsequently, we performed diagnostic arteriogram with great difficulty. Sheath was advanced over the aortic bifurcation and positioned in the proximal portion of the superficial femoral artery, that gives a variety of techniques to get this 7-Bengali sheath over. We then heparinized the patient. We used the atherectomy device down through the popliteal. Then we took a 2-mm balloon through the origin of the anterior tibial. The subsequent films showed some spasm distally. We ballooned it again. Eventually, the pictures looked good. We could not obtain as nice as pictures as we would have liked because of the patient's constant movement and combative. At this point, we then used a 5 balloon throughout the entire previously stented area and finally had a good flow through this. Careful inspection, however, revealed that at the proximal margin of the stent, there was a residual defect. We deployed another Zilver stent in this region, a 6 mm x 60. This deployed well. Subsequent films showed brisk flow down to the anterior tibial and the procedure was terminated. The catheter was removed from the groin and a proposed device deployed. Blood loss for the procedure is 50 mL. PROCEDURE CARRIED OUT: Aortofemoral angiogram via right groin with selective catheterization of the left femoral artery, Pathway atherectomy of the left superficial and popliteal artery, balloon angioplasty of the anterior tibial artery, balloon angioplasty and stenting of the superficial femoral artery on the patient's left side. Aden Sinclair Jr., MD cc: Gus Alonso DPM
--- NOTE | 2017-11-30 16:15 | CP.PCM.PN ---
Subjective - Date & Time of Evaluation Date of Evaluation: 11/30/17 Time of Evaluation: 16:12 - Subjective Subjective: Podiatry Consult Note - Dr. Alonso 57 year old female patient evaluated at bedside for chronic wound to left heel. Patient is AAOx3 and is in NAD. Reports of pain to the left foot. Reports that the pain is constant and when she moves it or touches the foot it gets worst. Denies of acute overnight events. Denies F/N/V/C/SOB/CP/headache. No new pedal complains. Dressing was not present at the time of the visit. Objective - Vital Signs/Intake and Output Vital Signs (last 24 hours): Temp Pulse Resp BP Pulse Ox 98.5 F 73 20 104/68 95 11/30/17 07:56 11/30/17 07:56 11/30/17 07:56 11/30/17 07:56 11/30/17 07:56 Intake and Output: 11/30/17 11/30/17 06:59 18:59 Intake Total 340 410 Balance 340 410 - Medications Medications: Current Medications Aspirin (Ecotrin) 81 mg PO DAILY [facility] Last Admin: 11/30/17 09:22 Dose: 81 mg Brimonidine Tartrate (Alphagan 0.2% Opht) 0 ml OS BID [facility] Last Admin: 11/30/17 09:23 Dose: 1 drop Clopidogrel Bisulfate (Plavix) 75 mg PO DAILY [facility] Last Admin: 11/30/17 09:22 Dose: 75 mg Dextrose (Dextrose 50% Inj) 0 ml IV STAT PRN; Protocol PRN Reason: Hypoglycemia Protocol Dextrose (Glutose 15) 0 gm PO ONCE PRN; Protocol PRN Reason: Hypoglycemia Protocol Docusate Sodium (Colace) 100 mg PO BID [facility] Last Admin: 11/30/17 09:22 Dose: 100 mg Emtricitabine/Tenofovir (Truvada 200 Mg-300 Mg) 1 tab PO DAILY [facility] PRN Reason: Protocol Last Admin: 11/30/17 09:22 Dose: 1 tab Ergocalciferol (Drisdol 50,000 Intl Units Cap) 1 cap PO Q7D [facility] Last Admin: 11/29/17 11:07 Dose: Not Given Famotidine (Pepcid) 20 mg PO DAILY [facility] Last Admin: 11/30/17 09:22 Dose: 20 mg Glucagon (Glucagen Diagnostic Kit) 0 mg IM STAT PRN; Protocol PRN Reason: Hypoglycemia Protocol Heparin Sodium (Porcine) (Heparin) 3,800 units IV MWF [facility] Stop: 12/11/17 09:01 Last Admin: 11/29/17 20:57 Dose: 3,800 units Piperacillin Sod/Tazobactam Sod (Zosyn 2.25 Gm Iv Premix) 2.25 gm in 50 mls @ 100 mls/hr IVPB Q8H [facility] PRN Reason: Protocol Last Admin: 11/30/17 09:21 Dose: 100 mls/hr Dextrose (Dextrose 5% In Water 1000 Ml) 1,000 mls @ 0 mls/hr IV .Q0M PRN; Protocol; Per Protocol PRN Reason: Hypoglycemia Protocol Insulin Human Regular (Novolin R) 0 unit SC ACHS [facility] PRN Reason: Protocol Last Admin: 11/30/17 11:37 Dose: Not Given Isosorbide Mononitrate (Imdur) 60 mg PO ACB [facility] Last Admin: 11/30/17 08:30 Dose: Not Given Morphine Sulfate (Morphine) 2 mg IVP Q4H PRN PRN Reason: Pain, severe (8-10) Last Admin: 11/30/17 13:36 Dose: 2 mg Mupirocin (Bactroban Ointment) 0 gm TOP BID [facility] Last Admin: 11/30/17 09:24 Dose: 1 applic Raltegravir (Isentress) 400 mg PO BID [facility] PRN Reason: Protocol Last Admin: 11/30/17 09:22 Dose: 400 mg Rosuvastatin Calcium (Crestor) 5 mg PO HS [facility] Last Admin: 11/29/17 21:56 Dose: 5 mg Timolol Maleate (Timoptic 0.5% [facility]) 1 drop OS BID [facility] Last Admin: 11/30/17 09:23 Dose: 1 drop Vitamin B Complex/Vit C/Folic Acid (Nephro-Carlos) 1 tab PO 0800 [facility] Last Admin: 11/30/17 08:47 Dose: 1 tab - Labs Labs: 11/30/17 11:18 11/30/17 07:07 PT 11.3 SECONDS (9.7-12.2) 11/29/17 06:44 INR 1.0 11/29/17 06:44 APTT 33 SECONDS (21-34) 11/29/17 06:44 - Constitutional Appears: Well, Non-toxic, No Acute Distress - Extremities Exam Additional comments: 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 focused: Vasc: lightly palpable DP and PT pulses, TG warm to cool up to the level of midfoot and cold at the distal foot, CFT < 4 sec to all digits Neuro: grossly diminished derm: posterior heel ulceration measuring 1 x 2 x 0.3 cm on the lateral aspect noted to have a necrotic base and hyperkeratotic rim; no drainage; no purulence ; no fluctuance; no ascending cellulitis; diffuse xerosis noted ortho: contracted lower extremity, pain on palpation in forefoot, no pain on palpation posterior heel - Neurological Exam Neurological Exam: Alert, Awake, Oriented x3 - Psychiatric Exam Psychiatric exam: Normal Affect, Normal Mood Assessment and Plan - Assessment and Plan (Free Text) Assessment: 57 y/o female with pmhx of Anxiety, CHF, Dementia, Diabetes, HIV, HTN, Hyperthyroidism, Hypothyroidism, End Stage Renal Disease, Chronic Kidney Disease , with nonhealing ulceration left heel Plan: Patient seen and evaluated alongside attending, Dr. Alonso Afebrile, WBC 5.0 Left foot XR: Negative for OM CTA: occlusion on L SFA and popliteal, severe stenosis/occlusion L peroneal & [employer] S/p vascular procedure Continue local wound care: INES demarco Podiatry does not plan any surgical intervention at this time Patient is stable from podiatry standpoint Podiatry will continue to follow while in-house Follow up with Dr. Alonso as an outpatient upon discharge
--- NOTE | 2017-11-30 20:03 | CP.PCM.PN ---
Subjective - Date & Time of Evaluation Date of Evaluation: 11/30/17 Time of Evaluation: 16:00 - Subjective Subjective: SEEN ON RENAL F/U C/O LOCAL PAIN ON L FOOT HAD HER HD YESTERDAY .. TOLERATED WELL ALL PREVIOUS EMR REVIEWED ALSO WAS SEEN YESTERDAY WHILE ON HD Objective - Vital Signs/Intake and Output Vital Signs (last 24 hours): Temp Pulse Resp BP Pulse Ox 98.2 F 20 L 20 88/58 L 95 11/30/17 15:00 11/30/17 15:00 11/30/17 15:00 11/30/17 15:00 11/30/17 15:00 Intake and Output: 11/30/17 12/01/17 18:59 06:59 Intake Total 410 Balance 410 - Medications Medications: Current Medications Aspirin (Ecotrin) 81 mg PO DAILY [facility] Last Admin: 11/30/17 09:22 Dose: 81 mg Brimonidine Tartrate (Alphagan 0.2% Opht) 0 ml OS BID [facility] Last Admin: 11/30/17 17:23 Dose: 1 drop Clopidogrel Bisulfate (Plavix) 75 mg PO DAILY [facility] Last Admin: 11/30/17 09:22 Dose: 75 mg Dextrose (Dextrose 50% Inj) 0 ml IV STAT PRN; Protocol PRN Reason: Hypoglycemia Protocol Dextrose (Glutose 15) 0 gm PO ONCE PRN; Protocol PRN Reason: Hypoglycemia Protocol Docusate Sodium (Colace) 100 mg PO BID [facility] Last Admin: 11/30/17 17:24 Dose: 100 mg Emtricitabine/Tenofovir (Truvada 200 Mg-300 Mg) 1 tab PO DAILY [facility] PRN Reason: Protocol Last Admin: 11/30/17 09:22 Dose: 1 tab Ergocalciferol (Drisdol 50,000 Intl Units Cap) 1 cap PO Q7D [facility] Last Admin: 11/29/17 11:07 Dose: Not Given Famotidine (Pepcid) 20 mg PO DAILY [facility] Last Admin: 11/30/17 09:22 Dose: 20 mg Glucagon (Glucagen Diagnostic Kit) 0 mg IM STAT PRN; Protocol PRN Reason: Hypoglycemia Protocol Heparin Sodium (Porcine) (Heparin) 3,800 units IV MWF [facility] Stop: 12/11/17 09:01 Last Admin: 11/29/17 20:57 Dose: 3,800 units Piperacillin Sod/Tazobactam Sod (Zosyn 2.25 Gm Iv Premix) 2.25 gm in 50 mls @ 100 mls/hr IVPB Q8H [facility]ATARINA PRN Reason: Protocol Last Admin: 11/30/17 17:24 Dose: 100 mls/hr Dextrose (Dextrose 5% In Water 1000 Ml) 1,000 mls @ 0 mls/hr IV .Q0M PRN; Protocol; Per Protocol PRN Reason: Hypoglycemia Protocol Insulin Human Regular (Novolin R) 0 unit SC ACHS KATARINA PRN Reason: Protocol Last Admin: 11/30/17 16:44 Dose: Not Given Isosorbide Mononitrate (Imdur) 60 mg PO ACB [facility] Last Admin: 11/30/17 08:30 Dose: Not Given Morphine Sulfate (Morphine) 2 mg IVP Q4H PRN PRN Reason: Pain, severe (8-10) Last Admin: 11/30/17 13:36 Dose: 2 mg Mupirocin (Bactroban Ointment) 0 gm TOP BID [facility] Last Admin: 11/30/17 17:24 Dose: 1 applic Raltegravir (Isentress) 400 mg PO BID [facility] PRN Reason: Protocol Last Admin: 11/30/17 17:23 Dose: 400 mg Rosuvastatin Calcium (Crestor) 5 mg PO HS [facility] Last Admin: 11/29/17 21:56 Dose: 5 mg Timolol Maleate (Timoptic 0.5% [facility] Sol) 1 drop OS BID [facility] Last Admin: 11/30/17 17:23 Dose: 1 drop Vitamin B Complex/Vit C/Folic Acid (Nephro-Carlos) 1 tab PO 0800 [facility] Last Admin: 11/30/17 08:47 Dose: 1 tab - Labs Labs: 11/30/17 11:18 11/30/17 07:07 PT 11.3 SECONDS (9.7-12.2) 11/29/17 06:44 INR 1.0 11/29/17 06:44 APTT 33 SECONDS (21-34) 11/29/17 06:44 Assessment and Plan - Assessment and Plan (Free Text) Assessment: ESRD ON HD M W F ANEMIA OF CKD .. H/H STABLE S/P L LEP ANGIOPLASTY MMP P : C/O CURRENT MEDS C/O PRESENT MANAGEMENT C/O MEDS C/O HD M W F
[2017-12-01] MEDS: Piperacill/Tazo 2.25gm in Dex 2.25 GM/50 ML BAG IVPB SCH ×2 (00:27→08:50)
[2017-12-01 07:03] LABS: BASO % 0.7 % (0.0-2.0); EOS # 0.1 K/uL (0.0-0.7); EOS % 1.7 % (0.0-4.0); HEMOGLOBIN 10.9 g/dL (11.0-16.0); LYMPH # 0.9 K/uL (1.0-4.3); LYMPH % 16.5 % (20.0-40.0); MEAN CELL VOLUME 94.8 fL (81.0-99.0); MEAN CORPUSCULAR HEMOGLOBIN 31.7 pg (27.0-31.0); MEAN CORPUSCULAR HGB CONC 33.4 g/dL (33.0-37.0); MEAN PLATELET VOLUME 8.1 fL (7.2-11.7); MONO # 0.5 K/uL (0.0-0.8); MONO % 8.3 % (0.0-10.0); NEUT # 4.2 K/uL (1.8-7.0); NEUT % 72.8 % (50.0-75.0); NRBC % 0.1 % (0.0-2.0); RBC 3.44 Mil/uL (3.80-5.20); WHITE BLOOD COUNT 5.8 K/uL (4.8-10.8)
--- NOTE | 2017-12-01 07:34 | CP.PCM.PN ---
Subjective - Date & Time of Evaluation Date of Evaluation: 12/01/17 Time of Evaluation: 07:32 - Subjective Subjective: Surgery: Dr. Sinclair Patient reports pain resolving in left leg. No acute events overnight. Objective - Vital Signs/Intake and Output Vital Signs (last 24 hours): Temp Pulse Resp BP Pulse Ox 98.5 F 63 20 98/62 L 97 12/01/17 00:00 12/01/17 00:00 12/01/17 00:00 12/01/17 00:00 12/01/17 00:00 Intake and Output: 12/01/17 12/01/17 06:59 18:59 Intake Total 200 Balance 200 - Medications Medications: Current Medications Aspirin (Ecotrin) 81 mg PO DAILY [facility] Last Admin: 11/30/17 09:22 Dose: 81 mg Brimonidine Tartrate (Alphagan 0.2% Opht) 0 ml OS BID [facility] Last Admin: 11/30/17 17:23 Dose: 1 drop Clopidogrel Bisulfate (Plavix) 75 mg PO DAILY [facility] Last Admin: 11/30/17 09:22 Dose: 75 mg Dextrose (Dextrose 50% Inj) 0 ml IV STAT PRN; Protocol PRN Reason: Hypoglycemia Protocol Dextrose (Glutose 15) 0 gm PO ONCE PRN; Protocol PRN Reason: Hypoglycemia Protocol Docusate Sodium (Colace) 100 mg PO BID [facility] Last Admin: 11/30/17 17:24 Dose: 100 mg Emtricitabine/Tenofovir (Truvada 200 Mg-300 Mg) 1 tab PO DAILY [facility] PRN Reason: Protocol Last Admin: 11/30/17 09:22 Dose: 1 tab Ergocalciferol (Drisdol 50,000 Intl Units Cap) 1 cap PO Q7D [facility] Last Admin: 11/29/17 11:07 Dose: Not Given Famotidine (Pepcid) 20 mg PO DAILY [facility] Last Admin: 11/30/17 09:22 Dose: 20 mg Glucagon (Glucagen Diagnostic Kit) 0 mg IM STAT PRN; Protocol PRN Reason: Hypoglycemia Protocol Heparin Sodium (Porcine) (Heparin) 3,800 units IV MWF [facility] Stop: 12/11/17 09:01 Last Admin: 11/29/17 20:57 Dose: 3,800 units Piperacillin Sod/Tazobactam Sod (Zosyn 2.25 Gm Iv Premix) 2.25 gm in 50 mls @ 100 mls/hr IVPB Q8H [facility]INA PRN Reason: Protocol Last Admin: 12/01/17 00:27 Dose: 100 mls/hr Dextrose (Dextrose 5% In Water 1000 Ml) 1,000 mls @ 0 mls/hr IV .Q0M PRN; Protocol; Per Protocol PRN Reason: Hypoglycemia Protocol Insulin Human Regular (Novolin R) 0 unit SC ACHS [facility]INA PRN Reason: Protocol Last Admin: 11/30/17 22:07 Dose: Not Given Isosorbide Mononitrate (Imdur) 60 mg PO ACB [facility] Last Admin: 11/30/17 08:30 Dose: Not Given Morphine Sulfate (Morphine) 2 mg IVP Q4H PRN PRN Reason: Pain, severe (8-10) Last Admin: 11/30/17 13:36 Dose: 2 mg Mupirocin (Bactroban Ointment) 0 gm TOP BID [facility] Last Admin: 11/30/17 17:24 Dose: 1 applic Raltegravir (Isentress) 400 mg PO BID [facility] PRN Reason: Protocol Last Admin: 11/30/17 17:23 Dose: 400 mg Rosuvastatin Calcium (Crestor) 5 mg PO HS [facility] Last Admin: 11/30/17 21:29 Dose: 5 mg Timolol Maleate (Timoptic 0.5% [facility]) 1 drop OS BID [facility] Last Admin: 11/30/17 17:23 Dose: 1 drop Vitamin B Complex/Vit C/Folic Acid (Nephro-Carlos) 1 tab PO 0800 [facility] Last Admin: 11/30/17 08:47 Dose: 1 tab - Labs Labs: 12/01/17 06:53 11/30/17 07:07 PT 11.3 SECONDS (9.7-12.2) 11/29/17 06:44 INR 1.0 11/29/17 06:44 APTT 33 SECONDS (21-34) 11/29/17 06:44 - Constitutional Appears: Non-toxic, No Acute Distress, Chronically Ill - Head Exam Head Exam: ATRAUMATIC, NORMOCEPHALIC - Eye Exam Eye Exam: EOMI, Normal appearance - ENT Exam ENT Exam: Mucous Membranes Moist - Respiratory Exam Respiratory Exam: NORMAL BREATHING PATTERN. absent: Respiratory Distress - Cardiovascular Exam Cardiovascular Exam: REGULAR RHYTHM. absent: Tachycardia - Extremities Exam Additional comments: LLE warm, DP dopplerable Assessment and Plan - Assessment and Plan (Free Text) Assessment: 57 y/o female s/p angio of LLE with revascularization Plan: -pulse dopplerable -cont pain control -local heal wound care per pod -no further surgical intervention at this time -further recs per Dr. Yahir Velazquez PGY3
[2017-12-01 07:40] LABS: ALB/GLOB RATIO 0.8 (1.0-2.1); ALBUMIN 3.5 g/dL (3.5-5.0); CALCIUM 8.5 mg/dl (8.6-10.4)
[2017-12-01 07:44] VITALS: BP 97/61; PULSE 70; TEMP 98.8; O2SAT 96
[2017-12-01] MEDS: (Novolin R) Insulin Human Regular 100 units/ml vial SC SCH ×2 (07:58→12:09)
[2017-12-01] MEDS: Multivitamin Vitamin B Complex (Nephro-Vite) Tab PO SCH (08:50)
[2017-12-01] MEDS: Emtricitabine-Tenofovir 200 mg-300 mg Tab PO SCH (09:24)
[2017-12-01] MEDS: Brimonidine 0.2% Opth Sol (5ml) OS SCH (09:24)
--- NOTE | 2017-12-01 11:28 | CP.PCM.DIS ---
<Aakash He - Last Filed: 12/01/17 12:47> Provider - Provider Date of Admission: 11/28/17 15:01 Attending physician: Mickey Arias MD Primary care physician: Dr. Jones Consults: Vascular Surgery - Dr. Sinclair Nephrology - Dr. Cao Time Spent in preparation of Discharge (in minutes): 28 Hospital Course - Lab Results Lab Results: Micro Results 11/28/17 17:10 Blood Blood Culture - Preliminary NO GROWTH AFTER 48 HOURS 11/28/17 16:40 Blood Blood Culture - Preliminary NO GROWTH AFTER 48 HOURS Most Recent Lab Values WBC 5.8 K/uL (4.8-10.8) 12/01/17 06:53 RBC 3.44 Mil/uL (3.80-5.20) L 12/01/17 06:53 Hgb 10.9 g/dL (11.0-16.0) L 12/01/17 06:53 Hct 32.6 % (34.0-47.0) L 12/01/17 06:53 MCV 94.8 fL (81.0-99.0) 12/01/17 06:53 MCH 31.7 pg (27.0-31.0) H 12/01/17 06:53 MCHC 33.4 g/dL (33.0-37.0) 12/01/17 06:53 RDW 21.0 % (11.5-14.5) H 12/01/17 06:53 Plt Count 214 K/uL (130-400) 12/01/17 06:53 MPV 8.1 fL (7.2-11.7) 12/01/17 06:53 Neut % (Auto) 72.8 % (50.0-75.0) 12/01/17 06:53 Lymph % (Auto) 16.5 % (20.0-40.0) L 12/01/17 06:53 [place] % (Auto) 8.3 % (0.0-10.0) 12/01/17 06:53 Eos % (Auto) 1.7 % (0.0-4.0) 12/01/17 06:53 Baso % (Auto) 0.7 % (0.0-2.0) 12/01/17 06:53 Neut # (Auto) 4.2 K/uL (1.8-7.0) 12/01/17 06:53 Lymph # (Auto) 0.9 K/uL (1.0-4.3) L 12/01/17 06:53 [place] # (Auto) 0.5 K/uL (0.0-0.8) 12/01/17 06:53 Eos # (Auto) 0.1 K/uL (0.0-0.7) 12/01/17 06:53 Baso # (Auto) 0.0 K/uL (0.0-0.2) 12/01/17 06:53 PT 11.3 SECONDS (9.7-12.2) 11/29/17 06:44 INR 1.0 11/29/17 06:44 APTT 33 SECONDS (21-34) 11/29/17 06:44 Sodium 138 mmol/L (132-148) 12/01/17 06:53 Potassium 4.2 mmol/L (3.6-5.2) 12/01/17 06:53 Chloride 95 mmol/L (98-107) L 12/01/17 06:53 Carbon Dioxide 28 mmol/L (22-30) 12/01/17 06:53 Anion Gap 19 (10-20) 12/01/17 06:53 BUN 34 mg/dL (7-17) H 12/01/17 06:53 Creatinine 6.8 mg/dL (0.7-1.2) H 12/01/17 06:53 Est GFR ( Amer) 8 12/01/17 06:53 Est GFR (Non-Af Amer) 6 12/01/17 06:53 POC Glucose (mg/dL) 111 mg/dL (65-110) H 12/01/17 07:07 Random Glucose 90 mg/dL (65-105) 12/01/17 06:53 Hemoglobin A1c 5.8 % (4.2-6.5) 11/29/17 06:44 Calcium 8.5 mg/dl (8.6-10.4) L 12/01/17 06:53 Phosphorus 5.2 mg/dL (2.5-4.5) H 12/01/17 06:53 Magnesium 2.3 mg/dL (1.6-2.3) 12/01/17 06:53 Total Bilirubin 0.6 mg/dL (0.2-1.3) 12/01/17 06:53 AST 81 U/L (14-36) H D 12/01/17 06:53 ALT 63 U/L (9-52) H D 12/01/17 06:53 Alkaline Phosphatase 279 U/L (38-126) H 12/01/17 06:53 Total Creatine Kinase 62 U/L (30-135) 11/28/17 14:22 Total Protein 8.1 g/dL (6.3-8.3) 12/01/17 06:53 Albumin 3.5 g/dL (3.5-5.0) 12/01/17 06:53 Globulin 4.7 gm/dL (2.2-3.9) H 12/01/17 06:53 Albumin/Globulin Ratio 0.8 (1.0-2.1) L 12/01/17 06:53 Triglycerides 116 mg/dL (0-149) D 11/29/17 06:44 Cholesterol 131 mg/dL (0-199) 11/29/17 06:44 LDL Cholesterol Direct 49 mg/dL (0-129) 11/29/17 06:44 HDL Cholesterol 29 mg/dL (30-70) L 11/29/17 06:44 Blood Type B POSITIVE 11/28/17 17:22 Antibody Screen Negative 11/28/17 17:22 - Hospital Course Hospital Course: Upon hospital admission: Patient is a 57 year old female with a past medical history HIV, PVD, HTN, HLD, chronic left heel ulcer, CKD (on HD MWF), and poorly controlled DM, who presents to the ED complaining of left foot pain of 1 week duration. Patient says its a crampy 7/10 pain that has been constant. Patient told her PCP, Dr. Jones, who gave her a pain medication that she said mildly helped. Patient says the pain is worse when her foot is touched. The pain does not change when hanging it over the edge of the bed. She told Dr. Sinclair about her pain 2 days ago and he recommended she come to the hospital. Patient also has a chronic wound on her left heel that she has had for over 2 months. Patient says she has a nurse who comes to her home for wound care. Patient admits to constipation, but otherwise denies numbness/ tingling in the leg, fever, chills, headache, dizziness, chest pain, SOB, cough, plapitations, wheezing, abdominal pain, N&V, diarrhea, dysuria, and recent travel. PCP: Dr. Moya Nephro: Dr. Orta Consulting Nurse: Dr. Alonso and Dr. Elder PMH: HIV, PVD, HTN, HLD, chronic left heel ulcer, CKD (on HD MWF), and poorly controlled DM PSH: Left AKA, multiple AV fistulas, cholecystectomy Meds: See SEP Allergies: NKDA FH: mother with DM, father with HTN SH: former smoker (10 years, 1/2 PPD); denies tobacco and alcohol use; lives with son (Dilip) and has a home visiting nurse Code Status: Full code Proxy: Son, Dilip ([phone]) During hospital course, the patient was evaluated and treated for the following : (1) Peripheral Vascular Disease. Patient was worked up with a CTA with runoff : showing severe stenosis and occlusions of the left superficial femoral artery and popliteal artery (see full report). She was taken to the OR by Dr. Sinclair (vascular surgery) who performed a selective angiogram left femoral artery with pathway athrectomy of the sfa/pop (on 11/29/17). She tolerated the procedure well , and although there were Non-palpable DP/TP pulses, they were measured with doppler. Her home meds of Plavix 75, ASA 81 were continued. She reported mild improvement in pain / tenderness to that lower extremity after blood flow was restored. (2) History of Chronic Left Heel Ulcer - she was followed by podiatry in house who did not recommend surgery. Blood cultures remained negative. XRay did not reveal osteomyelitis, however the heel ulcer was persistent, likely due to decreased circulation to that limb. (3) History of ESRD on HD ; she was seen by Dr. Cao and receive dialysis while in house. The patient did well during this admission, responded well to treatment, and was deemed stable for discharge. Upon hospital discharge, the patient was provided with the following instructions: Patient is stable for discharge per Dr. Regan. Patient should resume all medications as outlined in this document. 1. Please make an appointment and follow up with your Primary Doctor, Dr. Jones within one week of discharge. 2. Please make an appointment and follow up with your surgeon, Dr. Sinclair, within one week of discharge. He will continue to evaluate your L leg/foot now that blood flow has been restored. 3. 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 Based on Xray, you do not have an infection of the bone there, however the ulcer should be kept clean, wrapped, and treated by a Consulting Nurse. Patient should return to ED immediately if symptoms return or worsen. Instructions discussed with patient who understood and agreed. This is a summary of the patient's hospital admission, see chart for comprehensive detail. - Date & Time of H&P Date of H&P: 11/28/17 Time of H&P: 17:22 Discharge Exam - Additional Findings Additional findings: - Constitutional Appears: Non-toxic, No Acute Distress - Head Exam Head Exam: ATRAUMATIC, NORMAL INSPECTION, NORMOCEPHALIC - Eye Exam Eye Exam: EOMI Additional comments: Left eye with cataract - ENT Exam ENT Exam: Mucous Membranes Moist - Neck Exam Neck Exam: Normal Inspection - Respiratory Exam Respiratory Exam: Clear to Ausculation Bilateral, NORMAL BREATHING PATTERN. absent: Accessory Muscle Use, Rales, Rhonchi, Wheezes, Respiratory Distress - Cardiovascular Exam Cardiovascular Exam: RRR, +S1, +S2. absent: Bradycardia, Tachycardia, Diastolic murmur, Gallop, Rubs, Murmur - GI/Abdominal Exam GI & Abdominal Exam: Soft, Normal Bowel Sounds. absent: Distended, Tenderness - Extremities Exam Extremities Exam: Pedal Edema (1+ pitting), Tenderness (left foot, mild). absent: Calf Tenderness, Pedal pulses (could not palpate DP or TP pulses on LLE) Additional comments: s/p right AKA 4 cm x 2 cm ulcer on left heel, pink base, no drainage, erythema, or malodor Left LE pulses noted via doppler Left LE warm to palpation - Neurological Exam Neurological Exam: Alert, Awake, Oriented x3 - Psychiatric Exam Psychiatric exam: Normal Affect, Normal Mood - Skin Skin Exam: Dry, Intact, Normal Color, Warm Discharge Plan - Follow Up Plan Condition: GUARDED Disposition: HOME/ ROUTINE Instructions: Peripheral Vascular (Arterial) Disease (DC) Additional Instructions: Patient is stable for discharge per Dr. Regan. Patient should resume all medications as outlined in this document. 1. Please make an appointment and follow up with your Primary Doctor, Dr. Jones within one week of discharge. 2. Please make an appointment and follow up with your surgeon, Dr. Sinclair, within one week of discharge. He will continue to evaluate your L leg/foot now that blood flow has been restored. 3. 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 Based on Xray, you do not have an infection of the bone there, however the ulcer should be kept clean, wrapped, and treated by a Consulting Nurse. Patient should return to ED immediately if symptoms return or worsen. Instructions discussed with patient who understood and agreed. Referrals: Aden Sinclair Jr., MD [Staff Provider] - <Aakash Regan - Last Filed: 12/01/17 15:36> Provider - Provider Date of Admission: 11/28/17 15:01 Attending physician: Mickey Arias MD Hospital Course - Lab Results Lab Results: Micro Results 11/28/17 17:10 Blood Blood Culture - Preliminary NO GROWTH AFTER 48 HOURS 11/28/17 16:40 Blood Blood Culture - Preliminary NO GROWTH AFTER 48 HOURS Most Recent Lab Values WBC 5.8 K/uL (4.8-10.8) 12/01/17 06:53 RBC 3.44 Mil/uL (3.80-5.20) L 12/01/17 06:53 Hgb 10.9 g/dL (11.0-16.0) L 12/01/17 06:53 Hct 32.6 % (34.0-47.0) L 12/01/17 06:53 MCV 94.8 fL (81.0-99.0) 12/01/17 06:53 MCH 31.7 pg (27.0-31.0) H 12/01/17 06:53 MCHC 33.4 g/dL (33.0-37.0) 12/01/17 06:53 RDW 21.0 % (11.5-14.5) H 12/01/17 06:53 Plt Count 214 K/uL (130-400) 12/01/17 06:53 MPV 8.1 fL (7.2-11.7) 12/01/17 06:53 Neut % (Auto) 72.8 % (50.0-75.0) 12/01/17 06:53 Lymph % (Auto) 16.5 % (20.0-40.0) L 12/01/17 06:53 [place] % (Auto) 8.3 % (0.0-10.0) 12/01/17 06:53 Eos % (Auto) 1.7 % (0.0-4.0) 12/01/17 06:53 Baso % (Auto) 0.7 % (0.0-2.0) 12/01/17 06:53 Neut # (Auto) 4.2 K/uL (1.8-7.0) 12/01/17 06:53 Lymph # (Auto) 0.9 K/uL (1.0-4.3) L 12/01/17 06:53 [place] # (Auto) 0.5 K/uL (0.0-0.8) 12/01/17 06:53 Eos # (Auto) 0.1 K/uL (0.0-0.7) 12/01/17 06:53 Baso # (Auto) 0.0 K/uL (0.0-0.2) 12/01/17 06:53 PT 11.3 SECONDS (9.7-12.2) 11/29/17 06:44 INR 1.0 11/29/17 06:44 APTT 33 SECONDS (21-34) 11/29/17 06:44 Sodium 138 mmol/L (132-148) 12/01/17 06:53 Potassium 4.2 mmol/L (3.6-5.2) 12/01/17 06:53 Chloride 95 mmol/L (98-107) L 12/01/17 06:53 Carbon Dioxide 28 mmol/L (22-30) 12/01/17 06:53 Anion Gap 19 (10-20) 12/01/17 06:53 BUN 34 mg/dL (7-17) H 12/01/17 06:53 Creatinine 6.8 mg/dL (0.7-1.2) H 12/01/17 06:53 Est GFR ( Amer) 8 12/01/17 06:53 Est GFR (Non-Af Amer) 6 12/01/17 06:53 POC Glucose (mg/dL) 147 mg/dL (65-110) H 12/01/17 11:21 Random Glucose 90 mg/dL (65-105) 12/01/17 06:53 Hemoglobin A1c 5.8 % (4.2-6.5) 11/29/17 06:44 Calcium 8.5 mg/dl (8.6-10.4) L 12/01/17 06:53 Phosphorus 5.2 mg/dL (2.5-4.5) H 12/01/17 06:53 Magnesium 2.3 mg/dL (1.6-2.3) 12/01/17 06:53 Total Bilirubin 0.6 mg/dL (0.2-1.3) 12/01/17 06:53 AST 81 U/L (14-36) H D 12/01/17 06:53 ALT 63 U/L (9-52) H D 12/01/17 06:53 Alkaline Phosphatase 279 U/L (38-126) H 12/01/17 06:53 Total Creatine Kinase 62 U/L (30-135) 11/28/17 14:22 Total Protein 8.1 g/dL (6.3-8.3) 12/01/17 06:53 Albumin 3.5 g/dL (3.5-5.0) 12/01/17 06:53 Globulin 4.7 gm/dL (2.2-3.9) H 12/01/17 06:53 Albumin/Globulin Ratio 0.8 (1.0-2.1) L 12/01/17 06:53 Triglycerides 116 mg/dL (0-149) D 11/29/17 06:44 Cholesterol 131 mg/dL (0-199) 11/29/17 06:44 LDL Cholesterol Direct 49 mg/dL (0-129) 11/29/17 06:44 HDL Cholesterol 29 mg/dL (30-70) L 11/29/17 06:44 Blood Type B POSITIVE 11/28/17 17:22 Antibody Screen Negative 11/28/17 17:22 Attending/Attestation - Attestation I have personally seen and examined this patient.: Yes I have fully participated in the care of the patient.: Yes I have reviewed all pertinent clinical information, including history, physical exam and plan: Yes Notes (Text): 12/01/17 15:28 Medical attending: Patient was seen and examined by me. Agree with the above note by the resident This is a very talkative 57 year old female who has a history of a right side AKA in the past and also ESRD on HD MWF. She comes in with the left lower extremity feeling painful and cold and difficult to find pulses. She has a history of PAD in the past and also a small open calcaneal wound on her left heel as well. She underwent a CTA of the lower extremities and angiography of LLE with revascularization. The before and after flourocopy photos showed a marked improvment. She had less pain the next day. The pulses required a doppler to be found. She did NOT want to go to a [facility] when we spoke to her about it. She wanted to go home instead. thank you Aakash Regan
--- NOTE | 2017-12-01 16:46 | CP.PCM.PN ---
Subjective - Date & Time of Evaluation Date of Evaluation: 12/01/17 Time of Evaluation: 16:44 - Subjective Subjective: Podiatry Consult Note - Dr. Alonso 57 year old female patient evaluated at bedside for chronic wound to left heel. Patient is AAOx3 and is in NAD. Denies of acute overnight events. Reports of pain to the left foot. Reports that the pain is constant and when she moves it or touches the foot it gets worst. Denies F/N/V/C/SOB/CP/headache. No new pedal complains. Objective - Vital Signs/Intake and Output Vital Signs (last 24 hours): Temp Pulse Resp BP Pulse Ox 98.8 F 70 20 97/61 L 96 12/01/17 07:43 12/01/17 07:43 12/01/17 07:43 12/01/17 07:43 12/01/17 07:43 Intake and Output: 12/01/17 12/01/17 06:59 18:59 Intake Total 200 570 Balance 200 570 - Medications Medications: Current Medications Aspirin (Ecotrin) 81 mg PO DAILY [facility] Last Admin: 12/01/17 09:24 Dose: 81 mg Brimonidine Tartrate (Alphagan 0.2% Opht) 0 ml OS BID [facility] Last Admin: 12/01/17 09:24 Dose: 1 drop Clopidogrel Bisulfate (Plavix) 75 mg PO DAILY [facility] Last Admin: 12/01/17 09:24 Dose: 75 mg Dextrose (Dextrose 50% Inj) 0 ml IV STAT PRN; Protocol PRN Reason: Hypoglycemia Protocol Dextrose (Glutose 15) 0 gm PO ONCE PRN; Protocol PRN Reason: Hypoglycemia Protocol Docusate Sodium (Colace) 100 mg PO BID [facility] Last Admin: 12/01/17 09:24 Dose: 100 mg Emtricitabine/Tenofovir (Truvada 200 Mg-300 Mg) 1 tab PO DAILY [facility] PRN Reason: Protocol Last Admin: 12/01/17 09:24 Dose: 1 tab Ergocalciferol (Drisdol 50,000 Intl Units Cap) 1 cap PO Q7D [facility] Last Admin: 11/29/17 11:07 Dose: Not Given Famotidine (Pepcid) 20 mg PO DAILY [facility] Last Admin: 12/01/17 09:24 Dose: 20 mg Glucagon (Glucagen Diagnostic Kit) 0 mg IM STAT PRN; Protocol PRN Reason: Hypoglycemia Protocol Heparin Sodium (Porcine) (Heparin) 3,800 units IV MWF [facility] Stop: 12/11/17 09:01 Last Admin: 11/29/17 20:57 Dose: 3,800 units Piperacillin Sod/Tazobactam Sod (Zosyn 2.25 Gm Iv Premix) 2.25 gm in 50 mls @ 100 mls/hr IVPB Q8H [facility] PRN Reason: Protocol Last Admin: 12/01/17 08:50 Dose: 100 mls/hr Dextrose (Dextrose 5% In Water 1000 Ml) 1,000 mls @ 0 mls/hr IV .Q0M PRN; Protocol; Per Protocol PRN Reason: Hypoglycemia Protocol Insulin Human Regular (Novolin R) 0 unit SC ACHS [facility] PRN Reason: Protocol Last Admin: 12/01/17 12:09 Dose: Not Given Isosorbide Mononitrate (Imdur) 60 mg PO ACB [facility] Last Admin: 12/01/17 08:11 Dose: Not Given Morphine Sulfate (Morphine) 2 mg IVP Q4H PRN PRN Reason: Pain, severe (8-10) Last Admin: 11/30/17 13:36 Dose: 2 mg Mupirocin (Bactroban Ointment) 0 gm TOP BID [facility] Last Admin: 12/01/17 09:25 Dose: 1 applic Raltegravir (Isentress) 400 mg PO BID [facility] PRN Reason: Protocol Last Admin: 12/01/17 09:24 Dose: 400 mg Rosuvastatin Calcium (Crestor) 5 mg PO HS [facility] Last Admin: 11/30/17 21:29 Dose: 5 mg Timolol Maleate (Timoptic 0.5% Oph Soln) 1 drop OS BID [facility] Last Admin: 12/01/17 09:24 Dose: 1 drop Vitamin B Complex/Vit C/Folic Acid (Nephro-Carlos) 1 tab PO 0800 [facility] Last Admin: 12/01/17 08:50 Dose: 1 tab - Labs Labs: 12/01/17 06:53 12/01/17 06:53 PT 11.3 SECONDS (9.7-12.2) 11/29/17 06:44 INR 1.0 11/29/17 06:44 APTT 33 SECONDS (21-34) 11/29/17 06:44 - Constitutional Appears: Well, Non-toxic, No Acute Distress - Extremities Exam Additional comments: 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 focused: Vasc: lightly palpable DP and PT pulses, TG warm to cool up to the level of midfoot and cold at the distal foot, CFT < 4 sec to all digits Neuro: grossly diminished derm: posterior heel ulceration measuring 1 x 2 x 0.3 cm on the lateral aspect noted to have a necrotic base and hyperkeratotic rim; no drainage; no purulence ; no fluctuance; no ascending cellulitis; diffuse xerosis noted ortho: contracted lower extremity, pain on palpation in forefoot, no pain on palpation posterior heel - Neurological Exam Neurological Exam: Alert, Awake, Oriented x3 - Psychiatric Exam Psychiatric exam: Normal Affect, Normal Mood Assessment and Plan - Assessment and Plan (Free Text) Assessment: 57 y/o female with pmhx of Anxiety, CHF, Dementia, Diabetes, HIV, HTN, Hyperthyroidism, Hypothyroidism, End Stage Renal Disease, Chronic Kidney Disease , with nonhealing ulceration left heel Plan: Patient seen and evaluated alongside attending, Dr. Alonso Afebrile, WBC 5.8 Left foot XR: Negative for OM CTA: occlusion on L SFA and popliteal, severe stenosis/occlusion L peroneal & [employer] S/p vascular procedure Continue local wound care: INES demarco Podiatry does not plan any surgical intervention at this time Patient is stable from podiatry standpoint Podiatry will continue to follow while in-house Follow up with Dr. Alonso as an outpatient upon discharge
--- NOTE | 2017-12-03 11:40 | CP.PCM.PN ---
Subjective - Date & Time of Evaluation Date of Evaluation: 12/01/17 Time of Evaluation: 11:00 - Subjective Subjective: SEEN ON RENAL F/U SEEN ON HD FOR D/C TODAY WE WILL F/U AN OUT PT Objective - Vital Signs/Intake and Output Vital Signs (last 24 hours): Temp Pulse Resp BP Pulse Ox 98.8 F 70 20 97/61 L 96 12/01/17 07:43 12/01/17 07:43 12/01/17 07:43 12/01/17 07:43 12/01/17 07:43 - Labs Labs: 12/01/17 06:53 12/01/17 06:53 PT 11.3 SECONDS (9.7-12.2) 11/29/17 06:44 INR 1.0 11/29/17 06:44 APTT 33 SECONDS (21-34) 11/29/17 06:44 Assessment and Plan - Assessment and Plan (Free Text) Assessment: ESRD .. ON HD ANEMIA OF CKD .. H/H STABLE A/P L ANGIOPLASTY MMP p : C/O PRESENT CARE OK FOR D/C WILL F/U AN OUT PT
== END 2017-12-01 16:46 | disposition home or self-care (01) | DRG 270 ==
LOC: C.ER 12:28 → C.9E 15:01 → C.3T 11-29 01:39
PROVIDERS: ADMIT Family Medicine; ATTEND Family Medicine
PROC: 047L34Z Dilation of Left Femoral Artery with Drug-eluting Intraluminal Device, Percutaneous Approach (ICD-10-PCS; principal; 2017-11-29)
PROC: 04CL3ZZ Extirpation of Matter from Left Femoral Artery, Percutaneous Approach (ICD-10-PCS; 2017-11-29)
PROC: 04CN3ZZ Extirpation of Matter from Left Popliteal Artery, Percutaneous Approach (ICD-10-PCS; 2017-11-29)
PROC: 047Q3ZZ Dilation of Left Anterior Tibial Artery, Percutaneous Approach (ICD-10-PCS; 2017-11-29)
DX: E11.51 Type 2 diabetes mellitus with diabetic peripheral angiopathy without gangrene (principal); B20 Human immunodeficiency virus [HIV] disease; N18.6 End stage renal disease; I13.2 Hypertensive heart and chronic kidney disease with heart failure and with stage 5 chronic kidney disease, or end stage renal disease; L97.429 Non-pressure chronic ulcer of left heel and midfoot with unspecified severity; E11.621 Type 2 diabetes mellitus with foot ulcer; F03.90 Unspecified dementia, unspecified severity, without behavioral disturbance, psychotic disturbance, mood disturbance, and anxiety; E03.9 Hypothyroidism, unspecified; E11.22 Type 2 diabetes mellitus with diabetic chronic kidney disease; E78.5 Hyperlipidemia, unspecified; I50.9 Heart failure, unspecified; Z87.891 Personal history of nicotine dependence; Z89.511 Acquired absence of right leg below knee; Z79.4 Long term (current) use of insulin; D63.1 Anemia in chronic kidney disease; Z99.2 Dependence on renal dialysis

== ENCOUNTER 2017-12-02 16:34 | Emergency (ER) | payer MEDICARE, OTHER ==
[2017-12-02 16:40] VITALS: BMI 30.7
--- NOTE | 2017-12-02 17:01 | C.PDOC ---
History Of Present Illness 57 y/o female presents to the ER complaining of mild left groin discomfort s/p surgery on 11/28/17. Patient had a surgery performed by Dr. Sinclair. Patient had full dialysis today. She did not eat anything today. Time Seen by Provider: 12/02/17 16:49 Chief Complaint (Nursing): Abdominal Pain History Per: Patient History/Exam Limitations: no limitations Onset/Duration Of Symptoms: Days Current Symptoms Are (Timing): Still Present Severity: Moderate Past Medical History Reviewed: Historical Data, Nursing Documentation, Vital Signs Vital Signs: Last Vital Signs Temp 99.2 F 12/02/17 16:40 Pulse 96 H 12/02/17 16:40 Resp 20 12/02/17 16:40 BP 129/99 H 12/02/17 16:40 Pulse Ox 97 12/02/17 18:45 - Medical History PMH: Anxiety, CHF, Dementia, Diabetes, HIV, HTN, Hyperthyroidism, Hypothyroidism , End Stage Renal Disease (on hemodialysis M/W/F.), Chronic Kidney Disease Denies: Kidney Stones Surgical History: Other Surgeries: Hx of surgeries - [facility] Procedures (06/19/17) CENTRAL VENOUS CATHETER PLACEMENT WITH GUIDANCE (09/12/13) DILATION OF L FEM ART WITH DRUG-ELUT INTRA, PERC APPROACH (05/28/17) DILATION OF L FEM ART WITH INTRALUM DEV, PERC APPROACH (05/28/17) EXCISION OF LEFT FOOT SKIN, EXTERNAL APPROACH (05/28/17) EXTIRPATION OF MATTER FROM L FEM ART, PERC APPROACH (05/28/17) FLUOROSCOPY OF AORTA, BI LE ART USING OTH CONTRAST (05/28/17) FLUOROSCOPY OF RIGHT HEART USING LOW OSMOLAR CONTRAST (05/25/16) HEMODIALYSIS (08/26/14) IMMOBILIZATION OF RIGHT LOWER EXTREMITY USING CAST (05/25/16) IMMOBILIZATION OF RIGHT UPPER LEG USING SPLINT (05/25/16) INSERTION OF INFUSION DEV INTO INF VENA CAVA, PERC APPROACH (04/02/16) INSERTION OF INFUSION DEV INTO R INNOM VEIN, PERC APPROACH (05/28/17) INSERTION OF INFUSION DEVICE INTO R ATRIUM, PERC APPROACH (06/19/17) PERFORMANCE OF URINARY FILTRATION, MULTIPLE (05/25/16) PERFORMANCE OF URINARY FILTRATION, SINGLE (02/03/17) REMOVAL OF INFUSION DEVICE FROM LOWER VEIN, PERC APPROACH (04/02/16) REPOSITION RIGHT LOWER FEMUR, EXTERNAL APPROACH (05/25/16) TRANSFUSE NONAUT RED BLOOD CELLS IN PERIPH VEIN, PERC (05/25/16) ULTRASONOGRAPHY OF RIGHT SUBCLAVIAN VEIN, GUIDANCE (06/19/17) Family History: States: No Known Family Hx - Social History Hx Tobacco Use: Yes (former smoker) Hx Alcohol Use: No Hx Substance Use: No - Immunization History Hx Tetanus Toxoid Vaccination: Yes Hx Influenza Vaccination: Yes Hx Pneumococcal Vaccination: Yes Review Of Systems Except As Marked, All Systems Reviewed And Found Negative. Constitutional: Negative for: Fever, Chills Genitourinary: Positive for: Other (left groin discomfort) Physical Exam - Physical Exam Appears: Non-toxic, No Acute Distress Skin: Normal Color, Warm, Dry Head: Atraumatic, Normacephalic Nose: Normal Oral Mucosa: Moist Neck: Supple Chest: Symmetrical Cardiovascular: Rhythm Regular Respiratory: Normal Breath Sounds, No Rales, No Rhonchi, No Wheezing Gastrointestinal/Abdominal: Normal Exam, Soft, No Tenderness Rectal: Other (left groin- negative) Extremity: Other (right BKA, minimal edema to left leg) Neurological/Psych: Oriented x3, Normal Speech ED Course And Treatment O2 Sat by Pulse Oximetry: 97 Medical Decision Making Medical Decision Making: RIGHT BKA (not L AKA as previously described) normal minor discomfort in lower abd/pelvic area, no surgical wounds to review normal L leg circulation with baseline doppler pulses defer repeat w/u per Surgery, ok for f/u as opt. Disposition Doctor Will See Patient In The: Office Counseled Patient/Family Regarding: Studies Performed, Diagnosis - Disposition Referrals: [facility] [Outside] [facility] [Outside] Aden Sinclair Jr., MD [Staff Provider] - Disposition: HOME/ ROUTINE Disposition Time: 17:26 Condition: GOOD Additional Instructions: continue your normal post-op pain meds as needed normal routine follow-up with Dr. Sinclair as scheduled. Instructions: Postoperative Pain (DC) Forms: [facility] ([place]) - Clinical Impression Clinical Impression: Post-op pain - Scribe Statement The provider has reviewed the documentation as recorded by the Scribe [place] Provider Attestation: All medical record entries made by the Scribe were at my direction and personally dictated by me. I have reviewed the chart and agree that the record accurately reflects my personal performance of the history, physical exam, medical decision making, and the department course for this patient. I have also personally directed, reviewed, and agree with the discharge instructions and disposition.
[2017-12-02 20:54] VITALS: BP 93/42; PULSE 83; RESP 16; TEMP 98.2; O2SAT 96
--- NOTE | 2017-12-03 12:40 | CARD ---
APPROVED REPORT EKG Measurement Heart [id number] <Conclusion> Normal sinus rhythm Septal infarct, age undetermined Abnormal ECG
== END 2017-12-02 23:00 | disposition home or self-care (01) ==
LOC: C.ER 16:34
DX: G89.18 Other acute postprocedural pain (principal)

== ENCOUNTER 2017-12-30 13:09 | Inpatient (IN) | payer MEDICARE, OTHER ==
[2017-12-30 13:10] VITALS: BMI 29.9
--- NOTE | 2017-12-30 13:57 | C.PDOC ---
History Of Present Illness 57 year old female with past medical history of uncontrolled DM, HTN, HLD, HIV, PAD, chronic heel ulcers, ESRD on HD [facility] sent to ER by Dr. Sinclair for foot surgery. Patient unable to provide anymore Hx but notes some mild pain to the left leg. Denies fever, chills, or other complaints at this time. PCP: Dr. Moya admits to hospitalist Nephro: Dr. Orta Vascular: Dr Sinclair Public Relations Analyst: Dr. Alonso and Dr. Elder Time Seen by Provider: 12/30/17 13:37 Chief Complaint (Nursing): Lower Extremity Problem/Injury History Per: Patient History/Exam Limitations: no limitations Onset/Duration Of Symptoms: Days Current Symptoms Are (Timing): Still Present Recent travel outside of the [place]: No Past Medical History Reviewed: Historical Data, Nursing Documentation, Vital Signs Vital Signs: Last Vital Signs Temp 98.0 F 12/30/17 13:36 Pulse 79 12/30/17 15:40 Resp 20 12/30/17 15:40 BP 102/49 L 12/30/17 15:40 Pulse Ox 100 12/30/17 16:20 - Medical History PMH: Anxiety, CHF, Dementia, Diabetes, HIV, HTN, Hyperthyroidism, Hypothyroidism , End Stage Renal Disease, Chronic Kidney Disease Surgical History: - [facility] Procedures (12/05/17) CENTRAL VENOUS CATHETER PLACEMENT WITH GUIDANCE (09/12/13) DILATION OF L FEM ART WITH DRUG-ELUT INTRA, PERC APPROACH (11/28/17) DILATION OF L FEM ART WITH INTRALUM DEV, PERC APPROACH (05/28/17) DILATION OF LEFT ANTERIOR TIBIAL ARTERY, PERC APPROACH (11/28/17) EXCISION OF LEFT FOOT SKIN, EXTERNAL APPROACH (05/28/17) EXTIRPATION OF MATTER FROM L FEM ART, PERC APPROACH (11/28/17) EXTIRPATION OF MATTER FROM L POPL ART, PERC APPROACH (11/28/17) FLUOROSCOPY OF AORTA, BI LE ART USING OTH CONTRAST (05/28/17) FLUOROSCOPY OF RIGHT HEART USING LOW OSMOLAR CONTRAST (05/25/16) HEMODIALYSIS (08/26/14) IMMOBILIZATION OF RIGHT LOWER EXTREMITY USING CAST (05/25/16) IMMOBILIZATION OF RIGHT UPPER LEG USING SPLINT (05/25/16) INSERTION OF INFUSION DEV INTO INF VENA CAVA, PERC APPROACH (04/02/16) INSERTION OF INFUSION DEV INTO R INNOM VEIN, PERC APPROACH (05/28/17) INSERTION OF INFUSION DEV INTO SUP VENA CAVA, PERC APPROACH (12/05/17) INSERTION OF INFUSION DEVICE INTO R ATRIUM, PERC APPROACH (06/19/17) PERFORMANCE OF URINARY FILTRATION, MULTIPLE (05/25/16) PERFORMANCE OF URINARY FILTRATION, SINGLE (02/03/17) REMOVAL OF INFUSION DEVICE FROM LOWER VEIN, PERC APPROACH (04/02/16) REMOVAL OF INFUSION DEVICE FROM UPPER VEIN, PERC APPROACH (12/05/17) REPOSITION RIGHT LOWER FEMUR, EXTERNAL APPROACH (05/25/16) TRANSFUSE NONAUT RED BLOOD CELLS IN PERIPH VEIN, PERC (05/25/16) ULTRASONOGRAPHY OF RIGHT SUBCLAVIAN VEIN, GUIDANCE (06/19/17) Family History: States: Unknown Family Hx - Social History Hx Tobacco Use: Yes (former smoker) Hx Alcohol Use: No Hx Substance Use: No - Immunization History Hx Tetanus Toxoid Vaccination: Yes Hx Influenza Vaccination: Yes Hx Pneumococcal Vaccination: No Review Of Systems Constitutional: Negative for: Fever, Chills Cardiovascular: Negative for: Chest Pain, Palpitations Respiratory: Negative for: Cough, Shortness of Breath Gastrointestinal: Negative for: Nausea, Vomiting Musculoskeletal: Positive for: Leg Pain Physical Exam - Physical Exam Appears: Non-toxic, Chronically Ill, Other (Elderly) Skin: Warm, Dry Head: Atraumatic, Normacephalic Eye(s): right: Normal Inspection, left: Other (Blindness) Oral Mucosa: Moist Chest: Symmetrical, No Tenderness Cardiovascular: Rhythm Regular Respiratory: Normal Breath Sounds, No Rales, No Rhonchi, No Wheezing Gastrointestinal/Abdominal: Soft, No Tenderness Extremity: Tenderness (to the left lower leg and foot), No Swelling, Other (no palpable pulse. Discoloration and necrosis to all toes. Right leg above knee amputation) Neurological/Psych: Oriented x3, Normal Speech ED Course And Treatment - Laboratory Results Result Diagrams: 12/30/17 15:19 Lab Interpretation: No Acute Changes ECG: Interpreted By Me, Viewed By Me ECG Rhythm: Sinus Rhythm ECG Interpretation: No Acute Changes Rate From EC O2 Sat by Pulse Oximetry: 100 (Room air) Pulse Ox Interpretation: Normal Medical Decision Making Medical Decision Making: Plan: * EKG * Blood work * Admission Case discussed with Dr. Sinclair who requested to have patient admitted to medicine and will see patient in the OR. Contact hospitalist for admission Disposition - Disposition Disposition: HOSPITALIZED Disposition Time: 16:18 Condition: STABLE - Clinical Impression Clinical Impression: ESRD (end stage renal disease), PVD (peripheral vascular disease), Gangrene - PA / CRITICAL CARE EDUCATOR / Resident Statement MD/DO has reviewed & agrees with the documentation as recorded. - Scribe Statement The provider has reviewed the documentation as recorded by the Scribbebo Nowak All medical record entries made by the Scribbebo were at my direction and personally dictated by me. I have reviewed the chart and agree that the record accurately reflects my personal performance of the history, physical exam, medical decision making, and the department course for this patient. I have also personally directed, reviewed, and agree with the discharge instructions and disposition. Decision To Admit - Pt Status Changed To: Hospital Disposition Of: Inpatient - Admit Certification Admit to Inpatient:: After my assessment, the patient will require hospitalization for at least two midnights. This is because of the severity of symptoms shown, intensity of services needed, and/or the medical risk in this patient being treated as an outpatient. - InPatient: Physician Admission Certification: I certify that this patient requires 2 or more midnights of care for the following reason:: patient with multiple comorbidities and necrosis of left foot will need vascular and surgical intervention. - . Bed Request Type: Regular Admitting Physician: Savannah Martines Patient Diagnosis: ESRD (end stage renal disease), PVD (peripheral vascular disease), Gangrene
[2017-12-30 15:26] LABS: BASO # 0.1 K/uL (0.0-0.2); EOS # 0.2 K/uL (0.0-0.7); EOS % 2.9 % (0.0-4.0); LYMPH % 19.8 % (20.0-40.0)
[2017-12-30 15:31] LABS: INR 0.9; LYMPH # 1.5 K/uL (1.0-4.3); MEAN CORPUSCULAR HEMOGLOBIN 34.5 pg (27.0-31.0); MEAN CORPUSCULAR HGB CONC 33.5 g/dL (33.0-37.0); MEAN PLATELET VOLUME 8.4 fL (7.2-11.7); MONO # 0.5 K/uL (0.0-0.8); MONO % 5.9 % (0.0-10.0); NEUT # 5.4 K/uL (1.8-7.0); NEUT % 70.4 % (50.0-75.0); NRBC % 0.5 % (0.0-2.0); PROTHROMBIN TIME 10.2 SECONDS (9.7-12.2); RBC 3.88 Mil/uL (3.80-5.20); RED CELL DISTRIBUTION WIDTH 21.9 % (11.5-14.5); WHITE BLOOD COUNT 7.7 K/uL (4.8-10.8)
[2017-12-30 15:32] LABS: HEMOGLOBIN 13.4 g/dL (11.0-16.0); MEAN CELL VOLUME 103.1 fL (81.0-99.0)
--- NOTE | 2017-12-30 15:51 | CP.PCM.CON ---
History of Present Illness - History of Present Illness History of Present Illness: Vascular Surgery Consult Note for Dr. Sinclair This is a 57F with a PMH of HIV, HTN, HLD, CKD on HD MWF, Poorly controlled DM, Chronic LE ulcers, she has a histgory of a Left AKA, she presents today with a black RLE which has been that way for the past week. She denies any LE pain. She denies any pain, fevers, chills, chest pain. PMH: HIV, PAD, HTN, HLD, chronic left heel ulcer, CKD (on HD MWF), and poorly controlled DM PSH: Left AKA, multiple AV fistulas, cholecystectomy, permacath placements and removals ALL: NKDA Social: Denies vices Proxy: SonDilip ([phone]) Review of Systems - Review of Systems All systems: reviewed and no additional remarkable complaints except - Constitutional Constitutional: absent: Anorexia, Chills - EENT Eyes: absent: Change in Vision - Cardiovascular Cardiovascular: absent: Chest Pain, Dyspnea - Respiratory Respiratory: absent: Dyspnea, Dyspnea on Exertion - Gastrointestinal Gastrointestinal: absent: Abdominal Pain, Bloating, Change in Stool Character, Nausea, Vomiting - Genitourinary Genitourinary: absent: Dysuria - Musculoskeletal Musculoskeletal: Numbness - Integumentary Integumentary: New Lesions, Wounds Past Patient History - Infectious Disease Hx of Infectious Diseases: None - Past Medical History & Family History Past Medical History?: Yes - Past Social History Smoking Status: Former Smoker - CARDIAC Hx Congestive Heart Failure: Yes Hx Hypertension: Yes - PULMONARY Hx Respiratory Disorders: No - NEUROLOGICAL Hx Dementia: Yes - HEENT Hx HEENT Problems: Yes (wears glasses) Hx Glaucoma: Yes - RENAL Hx Chronic Kidney Disease: Yes - ENDOCRINE/METABOLIC Hx Hyperthyroidism: Yes Hx Hypothyroidism: Yes - HEMATOLOGICAL/ONCOLOGICAL Hx Human Immunodeficiency Virus (HIV): Yes - INTEGUMENTARY Hx Dermatological Problems: No - MUSCULOSKELETAL/RHEUMATOLOGICAL Hx Musculoskeletal Disorders: Yes (Right BKA) Hx Falls: Yes - GASTROINTESTINAL Hx Gastrointestinal Disorders: No - GENITOURINARY/GYNECOLOGICAL Hx Genitourinary Disorders: Yes Other/Comment: oliguria, on hemodialysis MWF - PSYCHIATRIC Hx Anxiety: Yes Hx Substance Use: No - SURGICAL HISTORY Hx Amputation: Yes (Right BKA) Other/Comment: vascular sx LLE - ANESTHESIA Hx Anesthesia: Yes Hx Anesthesia Reactions: No Hx Malignant Hyperthermia: No Meds Allergies/Adverse Reactions: Allergies Allergy/AdvReac Type Severity Reaction Status Date / Time No Known Allergies Allergy Verified 12/30/17 13:49 Physical Exam - Constitutional Appears: Non-toxic, No Acute Distress - Head Exam Head Exam: ATRAUMATIC, NORMOCEPHALIC - Eye Exam Eye Exam: EOMI, Normal appearance - ENT Exam ENT Exam: Mucous Membranes Moist - Respiratory Exam Respiratory Exam: NORMAL BREATHING PATTERN - Cardiovascular Exam Cardiovascular Exam: +S1, +S2 - GI/Abdominal Exam GI & Abdominal Exam: Soft. absent: Distended, Firm, Tenderness - Extremities Exam Additional comments: Peripheral pulses in LE non palpable, necrotic foot. - Neurological Exam Neurological exam: Alert, Oriented x3 - Psychiatric Exam Psychiatric exam: Normal Affect, Normal Mood - Skin Skin Exam: Dry, Normal Color Results - Vital Signs Recent Vital Signs: Last Vital Signs Temp 98.0 F 12/30/17 13:36 Pulse 79 12/30/17 15:40 Resp 20 12/30/17 15:40 BP 102/49 L 12/30/17 15:40 Pulse Ox 100 12/30/17 15:40 - Labs Result Diagrams: 12/30/17 15:19 Labs: Laboratory Results - last 24 hr 12/30/17 12/30/17 15:19 15:19 WBC 7.7 RBC 3.88 Hgb 13.4 D Hct 40.1 MCV 103.1 H D MCH 34.5 H MCHC 33.5 RDW 21.9 H Plt Count 203 D MPV 8.4 Neut % (Auto) 70.4 Lymph % (Auto) 19.8 L [place] % (Auto) 5.9 Eos % (Auto) 2.9 Baso % (Auto) 1.0 Neut # (Auto) 5.4 Lymph # (Auto) 1.5 [place] # (Auto) 0.5 Eos # (Auto) 0.2 Baso # (Auto) 0.1 PT 10.2 INR 0.9 APTT 23 Assessment & Plan - Assessment and Plan (Free Text) Assessment: 57F with necrotic lower extremity Continue medical management per primary team Proeop tomorrow Plan for OR Saturday after dialysis D/W Dr. Yahir Palacios PGY2
[2017-12-30 16:44] LABS: ALB/GLOB RATIO 0.8 (1.0-2.1); ALBUMIN 3.9 g/dL (3.5-5.0); CALCIUM 8.9 mg/dl (8.6-10.4)
[2017-12-30] MEDS ORDERED: Dextrose 50% SYRINGE Inj (50 ml) IV PRN (16:47)
[2017-12-30] MEDS ORDERED: Glucagon Recombinant 1 mg Inj IM PRN (16:47)
[2017-12-30] MEDS: Lopinavir/Ritonavir Tab PO SCH (17:46)
--- NOTE | 2017-12-30 17:56 | CP.PCM.HP ---
<Fred Louis - Last Filed: 12/30/17 18:24> History of Present Illness - History of Present Illness History of Present Illness: CC: Left foot necrosis FULL CODE Son Dilip Health [facility] Proxy [phone] This patient is a 57yo F w/ a PMHx HLD, HTN, HIV undetectable, ESRD MWF schedule , DM on insulin, PAD, schedule who is coming to the hospital with a left gangrenous foot that she has had for 2-3 months at this point, but has been problematic for the past year. She currently has no complaints, and states that she only came in at the urging of her surgeon Dr. Sinclair. PMhx: uncontrolled DM, HTN, HLD, HIV, PAD, chronic heel ulcers, ESRD on HD [facility] Allergies: None Surgeries: Right BKA amputation, multiple placements for vascular access for dialysis Medications: Isentress 400mg BID, Starlix 60mg daily, metroprolol 25mg BID, procrit 10k IV MWF, isorbide mononitrate 60mg PO daily, Lopinavir/Ritonavir 200- 50 PO BID, Toprol 25mg BID, Iron pills 500mg PO TID, Vit B complex, Folic Acid Social: Lives with son, does not walk at baseline (amputation of the right extrem below the knee most recently), former smoker Present on Admission - Present on Admission Any Indicators Present on Admission: Yes History of DVT/PE: Yes History of Uncontrolled Diabetes: Yes Urinary Catheter: No Decubitus Ulcer Present: No Past Patient History - Infectious Disease Hx of Infectious Diseases: None - Past Medical History & Family History Past Medical History?: Yes - Past Social History Smoking Status: Former Smoker - CARDIAC Hx Congestive Heart Failure: Yes Hx Hypertension: Yes - PULMONARY Hx Respiratory Disorders: No - NEUROLOGICAL Hx Dementia: Yes - HEENT Hx HEENT Problems: Yes (wears glasses) Hx Glaucoma: Yes - RENAL Hx Chronic Kidney Disease: Yes - ENDOCRINE/METABOLIC Hx Hyperthyroidism: Yes Hx Hypothyroidism: Yes - HEMATOLOGICAL/ONCOLOGICAL Hx Human Immunodeficiency Virus (HIV): Yes - INTEGUMENTARY Hx Dermatological Problems: No - MUSCULOSKELETAL/RHEUMATOLOGICAL Hx Musculoskeletal Disorders: Yes (Right BKA) Hx Falls: Yes - GASTROINTESTINAL Hx Gastrointestinal Disorders: No - GENITOURINARY/GYNECOLOGICAL Hx Genitourinary Disorders: Yes Other/Comment: oliguria, on hemodialysis MWF - PSYCHIATRIC Hx Anxiety: Yes Hx Substance Use: No - SURGICAL HISTORY Hx Amputation: Yes (Right BKA) Other/Comment: vascular sx LLE - ANESTHESIA Hx Anesthesia: Yes Hx Anesthesia Reactions: No Hx Malignant Hyperthermia: No Meds Allergies/Adverse Reactions: Allergies Allergy/AdvReac Type Severity Reaction Status Date / Time No Known Allergies Allergy Verified 12/30/17 13:49 Physical Exam - Constitutional Appears: Non-toxic, Older Than Stated Age, Chronically Ill - Head Exam Head Exam: ATRAUMATIC - Eye Exam Eye Exam: absent: PERRL (left eye white, glaucoma, blind in left eye, right eye EOMI ) - ENT Exam ENT Exam: Mucous Membranes Moist - Neck Exam Neck exam: Positive for: Full Rom. Negative for: Lymphadenopathy - Respiratory Exam Respiratory Exam: Clear to Auscultation Bilateral, NORMAL BREATHING PATTERN. absent: Rales, Rhonchi, Wheezes - Cardiovascular Exam Cardiovascular Exam: REGULAR RHYTHM, +S1, +S2 - GI/Abdominal Exam GI & Abdominal Exam: Normal Bowel Sounds, Soft. absent: Tenderness - Extremities Exam Extremities exam: Negative for: calf tenderness, normal inspection (no pain) - Back Exam Back exam: NORMAL INSPECTION. absent: CVA tenderness (L), CVA tenderness (R) - Neurological Exam Neurological exam: Alert, Oriented x3 - Psychiatric Exam Psychiatric exam: Normal Affect, Normal Mood - Skin Skin Exam: Warm Results - Vital Signs Recent Vital Signs: Last Vital Signs Temp 98.0 F 12/30/17 13:36 Pulse 79 12/30/17 15:40 Resp 20 12/30/17 15:40 BP 102/49 L 12/30/17 15:40 Pulse Ox 100 12/30/17 17:17 - Labs Result Diagrams: 12/30/17 15:19 12/30/17 16:18 Labs: Laboratory Results - last 24 hr 12/30/17 12/30/17 12/30/17 15:19 15:19 16:18 WBC 7.7 RBC 3.88 Hgb 13.4 D Hct 40.1 MCV 103.1 H D MCH 34.5 H MCHC 33.5 RDW 21.9 H Plt Count 203 D MPV 8.4 Neut % (Auto) 70.4 Lymph % (Auto) 19.8 L [place] % (Auto) 5.9 Eos % (Auto) 2.9 Baso % (Auto) 1.0 Neut # (Auto) 5.4 Lymph # (Auto) 1.5 [place] # (Auto) 0.5 Eos # (Auto) 0.2 Baso # (Auto) 0.1 PT 10.2 INR 0.9 APTT 23 Sodium 137 Potassium 3.2 L Chloride 97 L Carbon Dioxide 24 Anion Gap 19 BUN 43 H Creatinine 8.0 H* D Est GFR ( Amer) 6 Est GFR (Non-Af Amer) 5 POC Glucose (mg/dL) Random Glucose 227 H Calcium 8.9 Total Bilirubin 0.5 AST 19 ALT 14 Alkaline Phosphatase 263 H D Total Protein 8.8 H Albumin 3.9 Globulin 5.0 H Albumin/Globulin Ratio 0.8 L 12/30/17 17:36 WBC RBC Hgb Hct MCV MCH MCHC RDW Plt Count MPV Neut % (Auto) Lymph % (Auto) [place] % (Auto) Eos % (Auto) Baso % (Auto) Neut # (Auto) Lymph # (Auto) [place] # (Auto) Eos # (Auto) Baso # (Auto) PT INR APTT Sodium Potassium Chloride Carbon Dioxide Anion Gap BUN Creatinine Est GFR ( Amer) Est GFR (Non-Af Amer) POC Glucose (mg/dL) 199 H Random Glucose Calcium Total Bilirubin AST ALT Alkaline Phosphatase Total Protein Albumin Globulin Albumin/Globulin Ratio Assessment & Plan - Assessment and Plan (Free Text) Assessment: 57yo F admitted for amputation of left foot 2/2 to dry gangrene Dry gangrene L Foot -Will consult vascular surgery, Dr. Sinclair. -possible amputation on Monday 01/01; will need cardiac clearance -Dr. Collins Consulted; for lexiscan 12/31; NPO after midnight 12/30 -EKG, Chest X-Ray, PT/INR ordered -Will get chest xray, EKG for possible procedure. -d/c plavix for the time being for procedures -blood cultures ordered; f/u results; patient frequently becomes bactermic -patient is already moderate/high risk for procedures given medical history CHF Systolic dysfunction -previous echo shows systolic dysfunction of 30-35% -will do lexiscan as per Dr. Collins; NPO after midnight 12/30 -patient does not look clinically fluid overloaded on exam -telemetry monitoring ESRD: -On HD MWF. Last dialysis was today. -Will consult decontamination worker, Dr. Cao who saw pt on last admission. - Will continue home medications: Nephrovite and velphoro HLD: -Continue statin therapy. -Lipid panel from 11/29/17: TG 116 Chol 131 LDL 49 HDL 29 HTN: - Continue Imdur and metoprolol. -Will continue to monitor. DM: -HgbA1c checked on 11/29/17 was 5.8. -Accuchecks ACHS. -ISS. Will hold home diabetic medications -Hypoglycemic protocol. HIV: -Will continue HIV meds: Truvada 1 tab po qd and Issentriss 400 BID. -Last CD4 count from 05/2017 was 64. Will repeat CD4 count and viral load. -Will consult ID; Dr Villegas Case discussed and seen with attending physician Fred Louis PGY2 Decision To Admit - Pt Status Changed To: Hospital Disposition Of: Inpatient - Admit Certification Admit to Inpatient:: After my assessment, the patient will require hospitalization for at least two midnights. This is because of the severity of symptoms shown, intensity of services needed, and/or the medical risk in this patient being treated as an outpatient. - InPatient: Physician Admission Certification:: dry gangrene - . Bed Request Type: Telemetry Admitting Physician: Danielle Elizabeth <Danielle Elizabeth V - Last Filed: 12/30/17 18:59> Results - Vital Signs Recent Vital Signs: Last Vital Signs Temp 98.0 F 12/30/17 13:36 Pulse 68 12/30/17 18:03 Resp 20 12/30/17 18:03 BP 98/40 L 12/30/17 18:03 Pulse Ox 100 12/30/17 18:03 - Labs Result Diagrams: 12/30/17 15:19 12/30/17 16:18 Labs: Laboratory Results - last 24 hr 12/30/17 12/30/17 12/30/17 15:19 15:19 16:18 WBC 7.7 RBC 3.88 Hgb 13.4 D Hct 40.1 MCV 103.1 H D MCH 34.5 H MCHC 33.5 RDW 21.9 H Plt Count 203 D MPV 8.4 Neut % (Auto) 70.4 Lymph % (Auto) 19.8 L [place] % (Auto) 5.9 Eos % (Auto) 2.9 Baso % (Auto) 1.0 Neut # (Auto) 5.4 Lymph # (Auto) 1.5 [place] # (Auto) 0.5 Eos # (Auto) 0.2 Baso # (Auto) 0.1 PT 10.2 INR 0.9 APTT 23 Sodium 137 Potassium 3.2 L Chloride 97 L Carbon Dioxide 24 Anion Gap 19 BUN 43 H Creatinine 8.0 H* D Est GFR ( Amer) 6 Est GFR (Non-Af Amer) 5 POC Glucose (mg/dL) Random Glucose 227 H Calcium 8.9 Total Bilirubin 0.5 AST 19 ALT 14 Alkaline Phosphatase 263 H D Total Protein 8.8 H Albumin 3.9 Globulin 5.0 H Albumin/Globulin Ratio 0.8 L 12/30/17 17:36 WBC RBC Hgb Hct MCV MCH MCHC RDW Plt Count MPV Neut % (Auto) Lymph % (Auto) [place] % (Auto) Eos % (Auto) Baso % (Auto) Neut # (Auto) Lymph # (Auto) [place] # (Auto) Eos # (Auto) Baso # (Auto) PT INR APTT Sodium Potassium Chloride Carbon Dioxide Anion Gap BUN Creatinine Est GFR ( Amer) Est GFR (Non-Af Amer) POC Glucose (mg/dL) 199 H Random Glucose Calcium Total Bilirubin AST ALT Alkaline Phosphatase Total Protein Albumin Globulin Albumin/Globulin Ratio Attending/Attestation - Attestation I have personally seen and examined this patient.: Yes I have fully participated in the care of the patient.: Yes I have reviewed all pertinent clinical information: Yes Notes (Text): Patient seen, examined, and case discussed with day-time resident. Patient seen with her son, Dilip Zhong: [phone] who is her unofficial health proxy. Patient comes in following 2 month history of left lower extremity wound associated peripheral artery disease. Patient noted her toes are becoming black. Patient denies any sensation in the toes. Patient reports she has sensation in the legs but it is less. Per discussion with the son, patient has had recent vascular stent by Dr. Sinclair about a month ago but was evaluated today upon worsening of the legs specifically necrotic toes. Patient is afebrile, no elevated white count, is ESRD, asymptomatic of blood pressure, is due for dialysis today. Will start empiric antibiotic IV in light of necrotic toes. Patient is pending OR after dialysis on Saturday per surgery Discussed with cardiology, for cardiac risk assessment in light of echocardiogram Will consult ID. Assessment/Plan 1) Dry gangrene L Foot Hx of peripheral vascular disease Left heel chronic wound * Vascular surgery: Dr. Sinclair on board--> help appreciated * Infectious Disease: Dr. Villegas on board-->help appreciated * Cardiology: Dr. Collins on board-->help appreciated * Vascular study (11/29/17): aortofemoral angiogram underwent pathway atherectomy of the left superficial and popliteal artery, balloon angioplasty of the naterior tibial artery, balloon angioplasty, and stent of the superificial femoral artery on the patient's left side * Plavix held on admission * Blood cultures ordered * Patient prior hospitalizations from 11/28/17 and 12/06/17 no bactermia noted * Patient is already moderate-high risk individual in light of co-morbiditis (DM , COPD, HTN, Lipid disorder); will ask cardiology for risk assessment 2) CHF Systolic dysfunction * upgraded to telemetry * Cardiology (Dr. Collins) on the case-->Help appreciated * Patient has had no prior cardiac evaluation in light of low EF * Patient has cardiac risk factors: diabetes, hypertension, lipid disorder, no prior hx of [place] * Recommended for Lexiscan as per Dr. Collins; NPO after midnight 12/30 * Echocardiogram (12/07/17): left ventricle is normal size. left ventricle systolic function is moderately impaired. EF: 30-35% mild to moderate global hypokinesis of the left ventricle. left ventricular diastolc function is abnormal. 3) ESRD (MWF) * Patient is due for dialysis today but did not complete regular schedule dialysis. * Dialysis consent obtained by the resident with patient and patient's son at bedside. * Prior history of infected permcath site which was removed and replaced noted in last hospitalization * patient has howard over old dialysis access fron 12/07/17 * Will need to f/u surgery in regards to staple removal * Nephrology (Dr. Cao) on consult * Procrit 10,000 unit IV MWF * Nephro-Carlos 1 tab PO daily 5) Lipid Disorder * Lipid panel from 11/29/17: TG 116 Chol 131 LDL 49 HDL 29 6) Hypertension * Imdur 60mg PO daily * Lopressor 25mg PO BID * Holding parameters for blood pressure in the medications 7) Diabetes Mellitus, Controlled * HgbA1c checked on 11/29/17 was 5.8. * Accuchecks ACHS. * ISS. Will hold home diabetic medications: Starlix * Hypoglycemic protocol 8) Known hx of HIV: * Infectious Disease (Dr. Villegas) on consult-->help appreciate * HIV RNA <1.30 non detected * Will continue HIV meds: Truvada 1 tab po qd and Issentriss 400 BID. * Last CD4 count from 11/2017 was 143 9) Prophylactic measure * Contraindications to SCD secondary to peripheral vascular disease/necrotic toes * Hold plavix (prior hx of vascular stent) in left lower extremity in light of vascular procedure * Heparin 5000 units subq 8H for DVT ppx * Patient is Full code. * Patient's son Dilip Rabago is unofficial health proxy; his phone number to contact [phone]-->can be called at anytime
--- NOTE | 2017-12-30 18:36 | RAD ---
HISTORY: Preop. COMPARISON: 12/07/2017 FINDINGS: LUNGS: No active pulmonary disease. PLEURA: No significant pleural effusion identified, no pneumothorax apparent. CARDIOVASCULAR: No radiographic findings to suggest acute or significant cardiovascular disease. Venous access catheter in stable, satisfactory position. OSSEOUS STRUCTURES: No significant abnormalities. VISUALIZED UPPER ABDOMEN: Normal. OTHER FINDINGS: Left subclavian stent incompletely visualized. IMPRESSION: No active disease. No significant interval change compared to the prior examination(s).
[2017-12-30] MEDS ORDERED: Piperacillin/Tazobact 2.275 GM in Sodium Chloride 100 ML IVPB SCH (19:00)
[2017-12-30] MEDS: Piperacillin/Tazobact 2.275 GM in Sodium Chloride 100 ML IVPB SCH (22:20)
[2017-12-30] MEDS: (Novolog) Insulin Aspart, Recombinant 100 u/ml 10 ml vial SC SCH (22:22)
--- NOTE | 2017-12-30 23:08 | CP.PCM.CON ---
History of Present Illness - History of Present Illness History of Present Illness: REASONS FOR CONSULT : ESRD ON HD M W F HYPOKALEMIA .. K 3.5 ANEMIA OF CKD .. H/H GOOD PT WAS SEEN ON RENAL CONSULT PT WAS SEEN ON HD PT IS WELL KNOWN TO ME FOR LONG TIME ..HD PT History of Present Illness - History of Present Illness History of Present Illness: CC: Left foot necrosis FULL CODE Son Dilip Health Care Proxy [phone] This patient is a 57yo F w/ a PMHx HLD, HTN, HIV undetectable, ESRD MWF schedule , DM on insulin, PAD, schedule who is coming to the hospital with a left gangrenous foot that she has had for 2-3 months at this point, but has been problematic for the past year. She currently has no complaints, and states that she only came in at the urging of her surgeon Dr. Sinclair. PMhx: uncontrolled DM, HTN, HLD, HIV, PAD, chronic heel ulcers, ESRD on HD [facility] Allergies: None Surgeries: Right BKA amputation, multiple placements for vascular access for dialysis Medications: Isentress 400mg BID, Starlix 60mg daily, metroprolol 25mg BID, procrit 10k IV MWF, isorbide mononitrate 60mg PO daily, Lopinavir/Ritonavir 200- 50 PO BID, Toprol 25mg BID, Iron pills 500mg PO TID, Vit B complex, Folic Acid Social: Lives with son, does not walk at baseline (amputation of the right extrem below the knee most recently), former smoker Present on Admission - Present on Admission Any Indicators Present on Admission: Yes History of DVT/PE: Yes History of Uncontrolled Diabetes: Yes Urinary Catheter: No Decubitus Ulcer Present: No Past Patient History - Infectious Disease Hx of Infectious Diseases: None - Past Medical History & Family History Past Medical History?: Yes - Past Social History Smoking Status: Former Smoker - CARDIAC Hx Congestive Heart Failure: Yes Hx Hypertension: Yes - PULMONARY Hx Respiratory Disorders: No - NEUROLOGICAL Hx Dementia: Yes Past Patient History - Infectious Disease Hx of Infectious Diseases: None - Past Medical History & Family History Past Medical History?: Yes - Past Social History Smoking Status: Never Smoked - CARDIAC Hx Congestive Heart Failure: Yes Hx Hypertension: Yes - PULMONARY Hx Respiratory Disorders: No - NEUROLOGICAL Hx Dementia: Yes - HEENT Hx HEENT Problems: Yes (wears glasses) Hx Glaucoma: Yes - RENAL Date of Last Dialysis Treatment: 12/30/17 - ENDOCRINE/METABOLIC Hx Hyperthyroidism: Yes Hx Hypothyroidism: Yes - HEMATOLOGICAL/ONCOLOGICAL Hx Human Immunodeficiency Virus (HIV): Yes - INTEGUMENTARY Hx Dermatological Problems: No - MUSCULOSKELETAL/RHEUMATOLOGICAL Hx Falls: Yes - GASTROINTESTINAL Hx Gastrointestinal Disorders: No - GENITOURINARY/GYNECOLOGICAL Hx Genitourinary Disorders: Yes Other/Comment: oliguria, on hemodialysis MWF - PSYCHIATRIC Hx Substance Use: No - SURGICAL HISTORY Hx Amputation: Yes (Right BKA) Other/Comment: vascular sx LLE - ANESTHESIA Hx Anesthesia: Yes Hx Anesthesia Reactions: No Hx Malignant Hyperthermia: No Meds Allergies/Adverse Reactions: Allergies Allergy/AdvReac Type Severity Reaction Status Date / Time No Known Allergies Allergy Verified 12/30/17 13:49 - Medications Medications: Current Medications Acetaminophen (Tylenol 325mg Tab) 650 mg PO Q6 PRN PRN Reason: Fever >100.4 F Dextrose (Dextrose 50% Inj) 0 ml IV STAT PRN; Protocol PRN Reason: Hypoglycemia Protocol Dextrose (Glutose 15) 0 gm PO ONCE PRN; Protocol PRN Reason: Hypoglycemia Protocol Emtricitabine/Tenofovir (Truvada 200 Mg-300 Mg) 1 tab PO Q48H [place] PRN Reason: Protocol Epoetin Alonso (Procrit) 10,000 unit IV MWF [facility] Glucagon (Glucagen Diagnostic Kit) 0 mg IM STAT PRN; Protocol PRN Reason: Hypoglycemia Protocol Heparin Sodium (Porcine) (Heparin) 5,000 units SC Q8 [facility] Last Admin: 12/30/17 22:21 Dose: 5,000 units Dextrose (Dextrose 5% In Water 1000 Ml) 1,000 mls @ 0 mls/hr IV .Q0M PRN; Protocol; Per Protocol PRN Reason: Hypoglycemia Protocol Vancomycin/Sodium Chloride (Vancomycin 1 Gm/Ns 200 Ml) 1 gm in 200 mls @ 133 mls/hr IVPB MWF [facility] PRN Reason: Protocol Stop: 01/06/18 09:01 Piperacillin Sod/Tazobactam (Sod 2.275 gm/ Sodium Chloride) 100 mls @ 200 mls/ hr IVPB Q8H [facility] PRN Reason: Protocol Insulin Aspart (Novolog) 0 unit SC ACHS [facility] PRN Reason: Protocol Last Admin: 12/30/17 22:22 Dose: Not Given Isosorbide Mononitrate (Imdur) 60 mg PO DAILY [facility] Lopinavir/Ritonavir (Kaletra 200-50 Mg) 1 cap PO BID [facility] PRN Reason: Protocol Last Admin: 12/30/17 17:46 Dose: 1 cap Metoprolol Tartrate (Lopressor) 25 mg PO BID [facility] Ondansetron HCl (Zofran Inj) 4 mg IVP Q6 PRN PRN Reason: Nausea/Vomiting Petrolatum (Desitin Original) 0 gm EXT Q8H [facility] Pneumococcal Polyvalent Vaccine (Pneumovax 23 Vaccine) 0.5 ml IM .ONCE ONE Stop: 12/31/17 10:01 Sevelamer Carbonate (Renvela) 800 mg PO TID [facility] Last Admin: 12/30/17 22:21 Dose: 800 mg Vitamin B Complex/Vit C/Folic Acid (Nephro-Carlos) 1 tab PO DAILY [facility] Results - Vital Signs Recent Vital Signs: Last Vital Signs Temp 98.0 F 12/30/17 22:25 Pulse 66 12/30/17 22:32 Resp 18 12/30/17 22:25 BP 90/60 L 12/30/17 22:32 Pulse Ox 100 12/30/17 22:25 - Labs Result Diagrams: 12/30/17 15:19 12/30/17 16:18 Labs: Laboratory Results - last 24 hr 12/30/17 12/30/17 12/30/17 15:19 15:19 16:18 WBC 7.7 RBC 3.88 Hgb 13.4 D Hct 40.1 MCV 103.1 H D MCH 34.5 H MCHC 33.5 RDW 21.9 H Plt Count 203 D MPV 8.4 Neut % (Auto) 70.4 Lymph % (Auto) 19.8 L [place] % (Auto) 5.9 Eos % (Auto) 2.9 Baso % (Auto) 1.0 Neut # (Auto) 5.4 Lymph # (Auto) 1.5 [place] # (Auto) 0.5 Eos # (Auto) 0.2 Baso # (Auto) 0.1 PT 10.2 INR 0.9 APTT 23 Sodium 137 Potassium 3.2 L Chloride 97 L Carbon Dioxide 24 Anion Gap 19 BUN 43 H Creatinine 8.0 H* D Est GFR ( Amer) 6 Est GFR (Non-Af Amer) 5 POC Glucose (mg/dL) Random Glucose 227 H Calcium 8.9 Total Bilirubin 0.5 AST 19 ALT 14 Alkaline Phosphatase 263 H D Total Protein 8.8 H Albumin 3.9 Globulin 5.0 H Albumin/Globulin Ratio 0.8 L 12/30/17 12/30/17 17:36 22:20 WBC RBC Hgb Hct MCV MCH MCHC RDW Plt Count MPV Neut % (Auto) Lymph % (Auto) [place] % (Auto) Eos % (Auto) Baso % (Auto) Neut # (Auto) Lymph # (Auto) [place] # (Auto) Eos # (Auto) Baso # (Auto) PT INR APTT Sodium Potassium Chloride Carbon Dioxide Anion Gap BUN Creatinine Est GFR ( Amer) Est GFR (Non-Af Amer) POC Glucose (mg/dL) 199 H 123 H Random Glucose Calcium Total Bilirubin AST ALT Alkaline Phosphatase Total Protein Albumin Globulin Albumin/Globulin Ratio Assessment & Plan - Assessment and Plan (Free Text) Assessment: ESRD ON HD M W F .. GETTING HER HD NOW HYPOKALEMIA .. WILL TAKE CARE OF IT ON HD ANEMIA OF CKD ,, H/H [facility] P : SCHEDULE HD M W F .. ORDERS GIVEN TO HD RN C/O PRESENT CARE C/O [facility] WILL F/U C;W[facility] VASCULAR SURGERY CONSULT .. DR MCNAIR GOVERN - Date & Time Date: 12/30/17 Time: 17:00
--- NOTE | 2017-12-31 00:05 | CP.PCM.CON ---
History of Present Illness - History of Present Illness History of Present Illness: Patient seen and evaluated For Pre Op Oredered stress test and ECHO for am Past Patient History - Infectious Disease Hx of Infectious Diseases: None - Past Medical History & Family History Past Medical History?: Yes - Past Social History Smoking Status: Never Smoked - CARDIAC Hx Congestive Heart Failure: Yes Hx Hypertension: Yes - PULMONARY Hx Respiratory Disorders: No - NEUROLOGICAL Hx Dementia: Yes - HEENT Hx HEENT Problems: Yes (wears glasses) Hx Glaucoma: Yes - RENAL Date of Last Dialysis Treatment: 12/30/17 - ENDOCRINE/METABOLIC Hx Hyperthyroidism: Yes Hx Hypothyroidism: Yes - HEMATOLOGICAL/ONCOLOGICAL Hx Human Immunodeficiency Virus (HIV): Yes - INTEGUMENTARY Hx Dermatological Problems: No - MUSCULOSKELETAL/RHEUMATOLOGICAL Hx Falls: Yes - GASTROINTESTINAL Hx Gastrointestinal Disorders: No - GENITOURINARY/GYNECOLOGICAL Hx Genitourinary Disorders: Yes Other/Comment: oliguria, on hemodialysis MWF - PSYCHIATRIC Hx Substance Use: No - SURGICAL HISTORY Hx Amputation: Yes (Right BKA) Other/Comment: vascular sx LLE - ANESTHESIA Hx Anesthesia: Yes Hx Anesthesia Reactions: No Hx Malignant Hyperthermia: No Meds Allergies/Adverse Reactions: Allergies Allergy/AdvReac Type Severity Reaction Status Date / Time No Known Allergies Allergy Verified 12/30/17 13:49 - Medications Medications: Current Medications Acetaminophen (Tylenol 325mg Tab) 650 mg PO Q6 PRN PRN Reason: Fever >100.4 F Dextrose (Dextrose 50% Inj) 0 ml IV STAT PRN; Protocol PRN Reason: Hypoglycemia Protocol Dextrose (Glutose 15) 0 gm PO ONCE PRN; Protocol PRN Reason: Hypoglycemia Protocol Emtricitabine/Tenofovir (Truvada 200 Mg-300 Mg) 1 tab PO Q48H [facility] PRN Reason: Protocol Epoetin Alonso (Procrit) 10,000 unit IV MWF ON LICENSE OF [facility] Glucagon (Glucagen Diagnostic Kit) 0 mg IM STAT PRN; Protocol PRN Reason: Hypoglycemia Protocol Heparin Sodium (Porcine) (Heparin) 5,000 units SC Q8 ON LICENSE OF [facility] Last Admin: 12/30/17 22:21 Dose: 5,000 units Dextrose (Dextrose 5% In Water 1000 Ml) 1,000 mls @ 0 mls/hr IV .Q0M PRN; Protocol; Per Protocol PRN Reason: Hypoglycemia Protocol Vancomycin/Sodium Chloride (Vancomycin 1 Gm/Ns 200 Ml) 1 gm in 200 mls @ 133 mls/hr IVPB MWF [facility] PRN Reason: Protocol Stop: 01/06/18 09:01 Piperacillin Sod/Tazobactam (Sod 2.275 gm/ Sodium Chloride) 100 mls @ 200 mls/ hr IVPB Q8H [facility] PRN Reason: Protocol Last Admin: 12/30/17 22:20 Dose: Not Given Insulin Aspart (Novolog) 0 unit SC ACHS [facility] PRN Reason: Protocol Last Admin: 12/30/17 22:22 Dose: Not Given Isosorbide Mononitrate (Imdur) 60 mg PO DAILY ON [facility] OF [facility] Lopinavir/Ritonavir (Kaletra 200-50 Mg) 1 cap PO BID [facility] PRN Reason: Protocol Last Admin: 12/30/17 17:46 Dose: 1 cap Metoprolol Tartrate (Lopressor) 25 mg PO BID ON LICENSE OF [facility] Ondansetron HCl (Zofran Inj) 4 mg IVP Q6 PRN PRN Reason: Nausea/Vomiting Petrolatum (Desitin Original) 0 gm EXT Q8H ON LICENSE OF [facility] Pneumococcal Polyvalent Vaccine (Pneumovax 23 Vaccine) 0.5 ml IM .ONCE ONE Stop: 12/31/17 10:01 Sevelamer Carbonate (Renvela) 800 mg PO TID ON LICENSE OF [facility] Last Admin: 12/30/17 22:21 Dose: 800 mg Vitamin B Complex/Vit C/Folic Acid (Nephro-Carlos) 1 tab PO DAILY ON LICENSE OF [facility] Results - Vital Signs Recent Vital Signs: Last Vital Signs Temp 98.0 F 12/30/17 22:25 Pulse 66 12/30/17 22:32 Resp 18 12/30/17 22:25 BP 90/60 L 12/30/17 22:32 Pulse Ox 100 12/30/17 22:25 - Labs Result Diagrams: 12/30/17 15:19 12/30/17 16:18 Labs: Laboratory Results - last 24 hr 12/30/17 12/30/17 12/30/17 15:19 15:19 16:18 WBC 7.7 RBC 3.88 Hgb 13.4 D Hct 40.1 MCV 103.1 H D MCH 34.5 H MCHC 33.5 RDW 21.9 H Plt Count 203 D MPV 8.4 Neut % (Auto) 70.4 Lymph % (Auto) 19.8 L [place] % (Auto) 5.9 Eos % (Auto) 2.9 Baso % (Auto) 1.0 Neut # (Auto) 5.4 Lymph # (Auto) 1.5 [place] # (Auto) 0.5 Eos # (Auto) 0.2 Baso # (Auto) 0.1 PT 10.2 INR 0.9 APTT 23 Sodium 137 Potassium 3.2 L Chloride 97 L Carbon Dioxide 24 Anion Gap 19 BUN 43 H Creatinine 8.0 H* D Est GFR ( Amer) 6 Est GFR (Non-Af Amer) 5 POC Glucose (mg/dL) Random Glucose 227 H Calcium 8.9 Total Bilirubin 0.5 AST 19 ALT 14 Alkaline Phosphatase 263 H D Total Protein 8.8 H Albumin 3.9 Globulin 5.0 H Albumin/Globulin Ratio 0.8 L 18 12/30/17 17:36 22:20 WBC RBC Hgb Hct MCV MCH MCHC RDW Plt Count MPV Neut % (Auto) Lymph % (Auto) [place] % (Auto) Eos % (Auto) Baso % (Auto) Neut # (Auto) Lymph # (Auto) [place] # (Auto) Eos # (Auto) Baso # (Auto) PT INR APTT Sodium Potassium Chloride Carbon Dioxide Anion Gap BUN Creatinine Est GFR ( Amer) Est GFR (Non-Af Amer) POC Glucose (mg/dL) 199 H 123 H Random Glucose Calcium Total Bilirubin AST ALT Alkaline Phosphatase Total Protein Albumin Globulin Albumin/Globulin Ratio
[2017-12-31] MEDS: Zinc Oxide Topical 30 gm Tube EXT SCH ×3 (00:07→17:39)
[2017-12-31] MEDS: Piperacillin/Tazobact 2.275 GM in Sodium Chloride 100 ML IVPB SCH ×4 (05:33→21:53)
--- NOTE | 2017-12-31 06:42 | CP.PCM.PN ---
<Tara Rincon - Last Filed: 12/31/17 11:09> Subjective - Date & Time of Evaluation Date of Evaluation: 12/31/17 Time of Evaluation: 06:42 - Subjective Subjective: Medicine progress note for Dr. Elizabeth Patient was seen and examined at bedside in no acute distress. Patient report feeling well and has no complaints today. She denies chest pain, dyspnea, abdominal pain, nausea, vomiting, fevers, headaches, leg pain, leg swelling, and diarrhea. She states she has not has a BM in a few days. Per nursing and overnight resident, TRACK LAYER was called for hypotension. BP was recheck and TRACK LAYER was canceled. Patient has been asymptomatic. Objective - Vital Signs/Intake and Output Vital Signs (last 24 hours): Temp Pulse Resp BP Pulse Ox 97.3 F L 58 L 20 92/57 L 100 12/30/17 23:10 12/31/17 03:15 12/30/17 23:10 12/31/17 03:15 12/30/17 23:10 - Medications Medications: Current Medications Acetaminophen (Tylenol 325mg Tab) 650 mg PO Q6 PRN PRN Reason: Fever >100.4 F Dextrose (Dextrose 50% Inj) 0 ml IV STAT PRN; Protocol PRN Reason: Hypoglycemia Protocol Dextrose (Glutose 15) 0 gm PO ONCE PRN; Protocol PRN Reason: Hypoglycemia Protocol Emtricitabine/Tenofovir (Truvada 200 Mg-300 Mg) 1 tab PO Q48H [facility] PRN Reason: Protocol Epoetin Alonso (Procrit) 10,000 unit IV [facility] Glucagon (Glucagen Diagnostic Kit) 0 mg IM STAT PRN; Protocol PRN Reason: Hypoglycemia Protocol Heparin Sodium (Porcine) (Heparin) 5,000 units SC Q8 [facility] Last Admin: 12/31/17 05:19 Dose: 5,000 units Dextrose (Dextrose 5% In Water 1000 Ml) 1,000 mls @ 0 mls/hr IV .Q0M PRN; Protocol; Per Protocol PRN Reason: Hypoglycemia Protocol Vancomycin/Sodium Chloride (Vancomycin 1 Gm/Ns 200 Ml) 1 gm in 200 mls @ 133 mls/hr IVPB [facility] PRN Reason: Protocol Stop: 01/06/18 09:01 Piperacillin Sod/Tazobactam (Sod 2.275 gm/ Sodium Chloride) 100 mls @ 200 mls/ hr IVPB Q8H [facility] PRN Reason: Protocol Last Admin: 12/31/17 05:51 Dose: 200 mls/hr Insulin Aspart (Novolog) 0 unit SC ACHS [facility] PRN Reason: Protocol Last Admin: 12/30/17 22:22 Dose: Not Given Isosorbide Mononitrate (Imdur) 60 mg PO DAILY [facility] Lopinavir/Ritonavir (Kaletra 200-50 Mg) 1 cap PO BID [facility] PRN Reason: Protocol Last Admin: 12/30/17 17:46 Dose: 1 cap Metoprolol Tartrate (Lopressor) 25 mg PO BID [facility] Ondansetron HCl (Zofran Inj) 4 mg IVP Q6 PRN PRN Reason: Nausea/Vomiting Petrolatum (Desitin Original) 0 gm EXT Q8H [facility] Last Admin: 12/31/17 00:07 Dose: Not Given Pneumococcal Polyvalent Vaccine (Pneumovax 23 Vaccine) 0.5 ml IM .ONCE ONE Stop: 12/31/17 10:01 Sevelamer Carbonate (Renvela) 800 mg PO TID [facility] Last Admin: 12/30/17 22:21 Dose: 800 mg Vitamin B Complex/Vit C/Folic Acid (Nephro-Carlos) 1 tab PO DAILY [facility] - Labs Labs: 12/30/17 15:19 12/30/17 16:18 PT 10.2 SECONDS (9.7-12.2) 12/30/17 15:19 INR 0.9 12/30/17 15:19 APTT 23 SECONDS (21-34) 12/30/17 15:19 - Additional Findings Additional findings: - Constitutional Appears: Non-toxic, Older Than Stated Age, Chronically Ill - Head Exam Head Exam: ATRAUMATIC - Eye Exam Eye Exam: absent: PERRL (left eye white, glaucoma, blind in left eye, right eye EOMI ) - ENT Exam ENT Exam: Mucous Membranes Moist - Neck Exam Neck exam: Positive for: Full Rom. Negative for: Lymphadenopathy - Respiratory Exam Respiratory Exam: Clear to Auscultation Bilateral, NORMAL BREATHING PATTERN. absent: Rales, Rhonchi, Wheezes - Cardiovascular Exam Cardiovascular Exam: REGULAR RHYTHM, +S1, +S2 - GI/Abdominal Exam GI & Abdominal Exam: Normal Bowel Sounds, Soft. absent: Tenderness - Extremities Exam Extremities exam: Right BKA, well healed scar, no ulcers noted; LLE- gangrenous/ necrotic toes; pulse non palpable - Back Exam Back exam: NORMAL INSPECTION. absent: CVA tenderness (L), CVA tenderness (R) - Neurological Exam Neurological exam: Alert, Oriented x3 - Psychiatric Exam Psychiatric exam: Normal Affect, Normal Mood - Skin Skin Exam: Warm, dry; Right chest permacath Assessment and Plan (1) Dry gangrene Status: Acute (2) CHF (congestive heart failure) Status: Acute (3) End stage renal disease on dialysis Status: Chronic (4) HTN (hypertension) Status: Chronic (5) Diabetes Status: Acute (6) HIV (human immunodeficiency virus infection) Status: Acute (7) Prophylactic measure Status: Acute - Assessment and Plan (Free Text) Plan: (1) Dry gangrene (left foot) Assessment & Plan: Hx of BKA * Vascular surgery consulted- Dr. Sinclair * ID consulted- Dr. Villegas. * Possible amputation on 01/01/18 * Cardiac clearance-> Dr. Collins consulted * Lexiscan scheduled for 12/31/17: f/u results * PreOp: EKG, Chest Xray (negative), Coags, NPO * Plavix held in prep for procedure * Blood cx: f/u results (2) CHF (congestive heart failure) * Echo (12/05/17): EF 30-35% * Cardiology consulted- Dr. Collins * Lexiscan on 12/[address] Collins * Continue to monitor on telemetry (3) End stage renal disease on dialysis * ESRD on HD: MWF schedule * Nephrology consulted- Dr. Cao * Continue nephrovite and velphoro (4) HTN (hypertension)--> currently hypotensive * Continue home medications: Imdur 60mg PO daily and Metoprolol 25mg PO BID ( parameters placed- hold for SBP <100, HR <60) * Metoprolol has not been given due to hypotension * NS bolus 250mls/hr given on 12/31/17. * Continue to monitor (5) Diabetes * A1c (11/29/17): 5.8 * Accuchecks * ISS (will hold home diabetic medications) * Hypoglycemic protocol (6) HIV (human immunodeficiency virus infection) * Continue home medication: Truvada 1tab PO daily, Issentriss 400mg PO BID * CD4 count (06/14): 64 * CD4 count: f/u results * Viral load: f/u results * ID consulted, Dr. Villegas. (7) HLD * Lipid panel from 11/29/17: TG 116 Chol 131 LDL 49 HDL 29 (8) Constipation * Colace 100mg PO BID (9) Prophylactic measure * DVT: SCDs are c/i due to PVD, gangrene; heparin 5000u SC Q8; Plavix held in prep for procedure * Full Code * Patient's son Dilip Zhong is unofficial health proxy; his phone number to contact [phone] <Danielle Elizabeth V - Last Filed: 12/31/17 12:04> Objective - Vital Signs/Intake and Output Vital Signs (last 24 hours): Temp Pulse Resp BP Pulse Ox 98.2 F 62 18 82/53 L 100 12/31/17 08:25 12/31/17 11:06 12/31/17 08:25 12/31/17 08:25 12/31/17 08:25 Intake and Output: 12/31/17 12/31/17 06:59 18:59 Intake Total 100 Balance 100 - Medications Medications: Current Medications Acetaminophen (Tylenol 325mg Tab) 650 mg PO Q6 PRN PRN Reason: Fever >100.4 F Dextrose (Dextrose 50% Inj) 0 ml IV STAT PRN; Protocol PRN Reason: Hypoglycemia Protocol Dextrose (Glutose 15) 0 gm PO ONCE PRN; Protocol PRN Reason: Hypoglycemia Protocol Docusate Sodium (Colace) 100 mg PO BID [facility] Emtricitabine/Tenofovir (Truvada 200 Mg-300 Mg) 1 tab PO Q48H [facility] PRN Reason: Protocol Glucagon (Glucagen Diagnostic Kit) 0 mg IM STAT PRN; Protocol PRN Reason: Hypoglycemia Protocol Heparin Sodium (Porcine) (Heparin) 5,000 units SC Q8 [facility] Last Admin: 12/31/17 05:19 Dose: 5,000 units Dextrose (Dextrose 5% In Water 1000 Ml) 1,000 mls @ 0 mls/hr IV .Q0M PRN; Protocol; Per Protocol PRN Reason: Hypoglycemia Protocol Vancomycin/Sodium Chloride (Vancomycin 1 Gm/Ns 200 Ml) 1 gm in 200 mls @ 133 mls/hr IVPB MWF [facility] PRN Reason: Protocol Stop: 01/06/18 09:01 Piperacillin Sod/Tazobactam (Sod 2.275 gm/ Sodium Chloride) 100 mls @ 200 mls/ hr IVPB Q8H [facility] PRN Reason: Protocol Last Admin: 12/31/17 05:51 Dose: 200 mls/hr Sodium Chloride (Sodium Chloride 0.9%) 250 mls @ 1,000 mls/hr IV .Q15M [facility] Stop: 12/31/17 12:09 Insulin Aspart (Novolog) 0 unit SC ACHS [facility] PRN Reason: Protocol Last Admin: 12/31/17 07:15 Dose: Not Given Isosorbide Mononitrate (Imdur) 60 mg PO DAILY [facility] Last Admin: 12/31/17 10:17 Dose: Not Given Lopinavir/Ritonavir (Kaletra 200-50 Mg) 1 cap PO BID [facility] PRN Reason: Protocol Last Admin: 12/31/17 10:17 Dose: Not Given Metoprolol Tartrate (Lopressor) 25 mg PO BID [facility] Last Admin: 12/31/17 10:17 Dose: Not Given Ondansetron HCl (Zofran Inj) 4 mg IVP Q6 PRN PRN Reason: Nausea/Vomiting Petrolatum (Desitin Original) 0 gm EXT Q8H [facility] Last Admin: 12/31/17 07:52 Dose: Not Given Sevelamer Carbonate (Renvela) 800 mg PO TID [facility] Last Admin: 12/31/17 10:17 Dose: Not Given Vitamin B Complex/Vit C/Folic Acid (Nephro-Carlos) 1 tab PO DAILY [facility] Last Admin: 12/31/17 10:17 Dose: Not Given - Labs Labs: 12/30/17 15:19 12/30/17 16:18 PT 10.2 SECONDS (9.7-12.2) 12/30/17 15:19 INR 0.9 12/30/17 15:19 APTT 23 SECONDS (21-34) 12/30/17 15:19 Attending/Attestation - Attestation I have personally seen and examined this patient.: Yes I have fully participated in the care of the patient.: Yes I have reviewed all pertinent clinical information, including history, physical exam and plan: Yes Notes (Text): Patient seen, examined and case discussed with day-time resident. Clarification in regards to TRACK LAYER. There was TRACK LAYER called for hypotension overnight but it was cancelled because the blood pressure corrected without intervention. Patient completed dialysis yesterday. There are holding parameters to her blood pressure medications. Patient denies any acute symptoms except for she is unable to move her toes. Patient was seen with physical therapy this morning. She can completed the first part of her stress test and her echocardiogram this morning. Patient's blood pressure improved to 97/62 and on the telemetry 60s. Patient was given small 250 cc bolus of NS prior in light of her morning blood pressure of 82/55. We will f/u with cardiology in light of cardiac risk assessment. The plan is for surgery tomorrow following dialysis for necrotic toes over her left foot. Patient is on empiric antibiotic therapy. Blood cultures on admission were received; awaiting result. Patient has not had bloodwork collected today because she is doing cardiac testing. Assessment/Plan 1) Dry gangrene L Foot Hx of peripheral vascular disease Left heel chronic wound * Vascular surgery: Dr. Sinclair on board--> help appreciated * Infectious Disease: Dr. Villegas on board-->help appreciated * Cardiology: Dr. Collins on board-->help appreciated * Vascular study (11/29/17): aortofemoral angiogram underwent pathway atherectomy of the left superficial and popliteal artery, balloon angioplasty of the naterior tibial artery, balloon angioplasty, and stent of the superificial femoral artery on the patient's left side * Plavix held on admission * Blood cultures ordered * Patient prior hospitalizations from 11/28/17 and 12/06/17 no bactermia noted * Patient is already moderate-high risk individual in light of co-morbiditis (DM , COPD, HTN, Lipid disorder); will ask cardiology for risk assessment which is currently underway * Pending stress test and echocardiogram 2) CHF Systolic dysfunction * upgraded to telemetry * Cardiology (Dr. Collins) on the case-->Help appreciated * Patient has had no prior cardiac evaluation in light of low EF * Patient has cardiac risk factors: diabetes, hypertension, lipid disorder, no prior hx of [place] * Recommended for Lexiscan as per Dr. Collins; NPO after midnight 12/30 * Echocardiogram (12/07/17): left ventricle is normal size. left ventricle systolic function is moderately impaired. EF: 30-35% mild to moderate global hypokinesis of the left ventricle. left ventricular diastolc function is abnormal. * pending stress and echocardiogram 3) ESRD (MWF) * Patient is due for dialysis today but did not complete regular schedule dialysis. * Dialysis consent obtained by the resident with patient and patient's son at bedside. * Prior history of infected permcath site which was removed and replaced noted in last hospitalization * patient has howard over old dialysis access fron 12/07/17 * Will need to f/u surgery in regards to staple removal * Nephrology (Dr. Cao) on consult * Procrit 10,000 unit IV MWF * Nephro-Carlos 1 tab PO daily 5) Lipid Disorder * Lipid panel from 11/29/17: TG 116 Chol 131 LDL 49 HDL 29 6) Hypertension, History of Hypotension * Patient is asymptomatic at her borderline low blood pressure * Given 250 cc bolus X2 during the day; npo for cardiac testing * Holding parameters for blood pressure in the medications * Imdur 60mg PO daily * Lopressor 25mg PO BID 7) Diabetes Mellitus, Controlled * HgbA1c checked on 11/29/17 was 5.8. * Accuchecks Q6H--->will change to achs after completion for cardiac testing today * ISS. Will hold home diabetic medications: Starlix * Hypoglycemic protocol 8) Known hx of HIV: * Infectious Disease (Dr. Villegas) on consult-->help appreciated * HIV RNA <1.30 non detected * Will continue HIV meds: Truvada 1 tab po qd and Issentriss 400 BID. * Last CD4 count from 11/2017 was 143 9) Prophylactic measure * Contraindications to SCD secondary to peripheral vascular disease/necrotic toes * Hold plavix (prior hx of vascular stent) in left lower extremity in light of vascular procedure * Heparin 5000 units subq 8H for DVT ppx * Patient is Full code. * Patient's son Dilip Rabago is unofficial health proxy; his phone number to contact [phone]-->can be called at anytime
[2017-12-31] MEDS: (Novolog) Insulin Aspart, Recombinant 100 u/ml 10 ml vial SC SCH ×4 (07:15→22:32)
[2017-12-31] MEDS ORDERED: Sodium Chloride 0.9% 250 ML IV ONE ×2 (09:41→11:55)
[2017-12-31] MEDS ORDERED: Pneumococcal 23-Valent Vaccine IM ONE (10:00)
[2017-12-31] MEDS: Multivitamin Vitamin B Complex (Nephro-Vite) Tab PO SCH (10:17)
[2017-12-31] MEDS: Lopinavir/Ritonavir Tab PO SCH ×2 (10:17→17:38)
--- NOTE | 2017-12-31 10:58 | CP.PCM.PN ---
Subjective - Date & Time of Evaluation Date of Evaluation: 12/31/17 Time of Evaluation: 10:56 - Subjective Subjective: Surgery Pt seen and examined. No acute events. Denies fever, nausea, diarrhea. Pt for Echo and stress test for preop today. Had HD last night Objective - Vital Signs/Intake and Output Vital Signs (last 24 hours): Temp Pulse Resp BP Pulse Ox 98.2 F 57 L 18 82/53 L 100 12/31/17 08:25 12/31/17 08:25 12/31/17 08:25 12/31/17 08:25 12/31/17 08:25 Intake and Output: 12/31/17 12/31/17 06:59 18:59 Intake Total 100 Balance 100 - Medications Medications: Current Medications Acetaminophen (Tylenol 325mg Tab) 650 mg PO Q6 PRN PRN Reason: Fever >100.4 F Dextrose (Dextrose 50% Inj) 0 ml IV STAT PRN; Protocol PRN Reason: Hypoglycemia Protocol Dextrose (Glutose 15) 0 gm PO ONCE PRN; Protocol PRN Reason: Hypoglycemia Protocol Emtricitabine/Tenofovir (Truvada 200 Mg-300 Mg) 1 tab PO Q48H [facility] PRN Reason: Protocol Glucagon (Glucagen Diagnostic Kit) 0 mg IM STAT PRN; Protocol PRN Reason: Hypoglycemia Protocol Heparin Sodium (Porcine) (Heparin) 5,000 units SC Q8 [facility] Last Admin: 12/31/17 05:19 Dose: 5,000 units Dextrose (Dextrose 5% In Water 1000 Ml) 1,000 mls @ 0 mls/hr IV .Q0M PRN; Protocol; Per Protocol PRN Reason: Hypoglycemia Protocol Vancomycin/Sodium Chloride (Vancomycin 1 Gm/Ns 200 Ml) 1 gm in 200 mls @ 133 mls/hr IVPB MWF [facility] PRN Reason: Protocol Stop: 01/06/18 09:01 Piperacillin Sod/Tazobactam (Sod 2.275 gm/ Sodium Chloride) 100 mls @ 200 mls/ hr IVPB Q8H [facility] PRN Reason: Protocol Last Admin: 12/31/17 05:51 Dose: 200 mls/hr Insulin Aspart (Novolog) 0 unit SC ACHS [facility] PRN Reason: Protocol Last Admin: 12/31/17 07:15 Dose: Not Given Isosorbide Mononitrate (Imdur) 60 mg PO DAILY [facility] Last Admin: 12/31/17 10:17 Dose: Not Given Lopinavir/Ritonavir (Kaletra 200-50 Mg) 1 cap PO BID [facility] PRN Reason: Protocol Last Admin: 12/31/17 10:17 Dose: Not Given Metoprolol Tartrate (Lopressor) 25 mg PO BID [facility] Last Admin: 12/31/17 10:17 Dose: Not Given Ondansetron HCl (Zofran Inj) 4 mg IVP Q6 PRN PRN Reason: Nausea/Vomiting Petrolatum (Desitin Original) 0 gm EXT Q8H [facility] Last Admin: 12/31/17 07:52 Dose: Not Given Sevelamer Carbonate (Renvela) 800 mg PO TID [facility] Last Admin: 12/31/17 10:17 Dose: Not Given Vitamin B Complex/Vit C/Folic Acid (Nephro-Carlos) 1 tab PO DAILY [facility] Last Admin: 12/31/17 10:17 Dose: Not Given - Labs Labs: 12/30/17 15:19 12/30/17 16:18 PT 10.2 SECONDS (9.7-12.2) 12/30/17 15:19 INR 0.9 12/30/17 15:19 APTT 23 SECONDS (21-34) 12/30/17 15:19 - Constitutional Appears: No Acute Distress - Head Exam Head Exam: ATRAUMATIC, NORMAL INSPECTION, NORMOCEPHALIC - Eye Exam Eye Exam: EOMI, Normal appearance, PERRL Pupil Exam: NORMAL ACCOMODATION, PERRL - ENT Exam ENT Exam: Mucous Membranes Moist, Normal Exam - Neck Exam Neck Exam: Full ROM, Normal Inspection. absent: Lymphadenopathy - Respiratory Exam Respiratory Exam: Clear to Ausculation Bilateral, NORMAL BREATHING PATTERN - Cardiovascular Exam Cardiovascular Exam: REGULAR RHYTHM, +S1, +S2. absent: Murmur - GI/Abdominal Exam GI & Abdominal Exam: Soft, Normal Bowel Sounds. absent: Tenderness - Extremities Exam Extremities Exam: absent: Full ROM, Normal Inspection Additional comments: R BKA. L LE necrotic wound - Back Exam Back Exam: NORMAL INSPECTION - Neurological Exam Neurological Exam: Alert, Awake, CN II-XII Intact, Oriented x3 - Psychiatric Exam Psychiatric exam: Normal Affect, Normal Mood - Skin Skin Exam: Dry, Intact, Normal Color, Warm Assessment and Plan - Assessment and Plan (Free Text) Assessment: 57F with necrotic lower extremity Continue medical management per primary team Proeop Plan for OR Saturday after dialysis D/W Dr. Sinclair
[2017-12-31] MEDS ORDERED: Sodium Chloride 0.9% 1,000 ML IV ONE (11:30)
--- NOTE | 2017-12-31 12:38 | CARD ---
APPROVED REPORT EKG Measurement Heart [id number] <Conclusion> Normal sinus rhythm Cannot rule out Anterior infarct, age undetermined T wave abnormality, consider lateral ischemia Abnormal ECG
--- NOTE | 2017-12-31 13:31 | CP.PCM.CON ---
History of Present Illness - History of Present Illness History of Present Illness: dictated Past Patient History - Infectious Disease Hx of Infectious Diseases: None - Past Medical History & Family History Past Medical History?: Yes - Past Social History Smoking Status: Never Smoked - CARDIAC Hx Congestive Heart Failure: Yes Hx Hypertension: Yes - PULMONARY Hx Respiratory Disorders: No - NEUROLOGICAL Hx Dementia: Yes - HEENT Hx HEENT Problems: Yes (wears glasses) Hx Glaucoma: Yes - RENAL Date of Last Dialysis Treatment: 12/30/17 - ENDOCRINE/METABOLIC Hx Hyperthyroidism: Yes Hx Hypothyroidism: Yes - HEMATOLOGICAL/ONCOLOGICAL Hx Human Immunodeficiency Virus (HIV): Yes - INTEGUMENTARY Hx Dermatological Problems: No - MUSCULOSKELETAL/RHEUMATOLOGICAL Hx Falls: Yes - GASTROINTESTINAL Hx Gastrointestinal Disorders: No - GENITOURINARY/GYNECOLOGICAL Hx Genitourinary Disorders: Yes Other/Comment: oliguria, on hemodialysis MWF - PSYCHIATRIC Hx Substance Use: No - SURGICAL HISTORY Hx Amputation: Yes (Right BKA) Other/Comment: vascular sx LLE - ANESTHESIA Hx Anesthesia: Yes Hx Anesthesia Reactions: No Hx Malignant Hyperthermia: No Meds Allergies/Adverse Reactions: Allergies Allergy/AdvReac Type Severity Reaction Status Date / Time No Known Allergies Allergy Verified 12/30/17 13:49 - Medications Medications: Current Medications Acetaminophen (Tylenol 325mg Tab) 650 mg PO Q6 PRN PRN Reason: Fever >100.4 F Dextrose (Dextrose 50% Inj) 0 ml IV STAT PRN; Protocol PRN Reason: Hypoglycemia Protocol Dextrose (Glutose 15) 0 gm PO ONCE PRN; Protocol PRN Reason: Hypoglycemia Protocol Docusate Sodium (Colace) 100 mg PO BID [facility] Emtricitabine/Tenofovir (Truvada 200 Mg-300 Mg) 1 tab PO Q48H [facility] PRN Reason: Protocol Glucagon (Glucagen Diagnostic Kit) 0 mg IM STAT PRN; Protocol PRN Reason: Hypoglycemia Protocol Heparin Sodium (Porcine) (Heparin) 5,000 units SC Q8 [facility] Last Admin: 12/31/17 05:19 Dose: 5,000 units Dextrose (Dextrose 5% In Water 1000 Ml) 1,000 mls @ 0 mls/hr IV .Q0M PRN; Protocol; Per Protocol PRN Reason: Hypoglycemia Protocol Vancomycin/Sodium Chloride (Vancomycin 1 Gm/Ns 200 Ml) 1 gm in 200 mls @ 133 mls/hr IVPB MWF [facility] PRN Reason: Protocol Stop: 01/06/18 09:01 Piperacillin Sod/Tazobactam (Sod 2.275 gm/ Sodium Chloride) 100 mls @ 200 mls/ hr IVPB Q8H [facility] PRN Reason: Protocol Last Admin: 12/31/17 05:51 Dose: 200 mls/hr Insulin Aspart (Novolog) 0 unit SC ACHS [facility] PRN Reason: Protocol Last Admin: 12/31/17 13:17 Dose: Not Given Isosorbide Mononitrate (Imdur) 60 mg PO DAILY [facility] Last Admin: 12/31/17 10:17 Dose: Not Given Lopinavir/Ritonavir (Kaletra 200-50 Mg) 1 cap PO BID [facility] PRN Reason: Protocol Last Admin: 12/31/17 10:17 Dose: Not Given Metoprolol Tartrate (Lopressor) 25 mg PO BID [facility] Last Admin: 12/31/17 10:17 Dose: Not Given Ondansetron HCl (Zofran Inj) 4 mg IVP Q6 PRN PRN Reason: Nausea/Vomiting Petrolatum (Desitin Original) 0 gm EXT Q8H [facility] Last Admin: 12/31/17 07:52 Dose: Not Given Sevelamer Carbonate (Renvela) 800 mg PO TID [facility] Last Admin: 12/31/17 10:17 Dose: Not Given Vitamin B Complex/Vit C/Folic Acid (Nephro-Carlos) 1 tab PO DAILY [facility] Last Admin: 12/31/17 10:17 Dose: Not Given Results - Vital Signs Recent Vital Signs: Last Vital Signs Temp 98.2 F 12/31/17 08:25 Pulse 62 12/31/17 11:06 Resp 18 12/31/17 08:25 BP 82/53 L 12/31/17 08:25 Pulse Ox 100 12/31/17 08:25 - Labs Result Diagrams: 12/30/17 15:19 12/30/17 16:18 Labs: Laboratory Results - last 24 hr 12/30/17 12/30/17 12/30/17 15:19 15:19 16:18 WBC 7.7 RBC 3.88 Hgb 13.4 D Hct 40.1 MCV 103.1 H D MCH 34.5 H MCHC 33.5 RDW 21.9 H Plt Count 203 D MPV 8.4 Neut % (Auto) 70.4 Lymph % (Auto) 19.8 L [place] % (Auto) 5.9 Eos % (Auto) 2.9 Baso % (Auto) 1.0 Neut # (Auto) 5.4 Lymph # (Auto) 1.5 [place] # (Auto) 0.5 Eos # (Auto) 0.2 Baso # (Auto) 0.1 PT 10.2 INR 0.9 APTT 23 Sodium 137 Potassium 3.2 L Chloride 97 L Carbon Dioxide 24 Anion Gap 19 BUN 43 H Creatinine 8.0 H* D Est GFR ( Amer) 6 Est GFR (Non-Af Amer) 5 POC Glucose (mg/dL) Random Glucose 227 H Calcium 8.9 Total Bilirubin 0.5 AST 19 ALT 14 Alkaline Phosphatase 263 H D Total Protein 8.8 H Albumin 3.9 Globulin 5.0 H Albumin/Globulin Ratio 0.8 L 12/30/17 12/30/17 12/31/17 17:36 22:20 06:18 WBC RBC Hgb Hct MCV MCH MCHC RDW Plt Count MPV Neut % (Auto) Lymph % (Auto) [place] % (Auto) Eos % (Auto) Baso % (Auto) Neut # (Auto) Lymph # (Auto) [place] # (Auto) Eos # (Auto) Baso # (Auto) PT INR APTT Sodium Potassium Chloride Carbon Dioxide Anion Gap BUN Creatinine Est GFR ( Amer) Est GFR (Non-Af Amer) POC Glucose (mg/dL) 199 H 123 H 110 Random Glucose Calcium Total Bilirubin AST ALT Alkaline Phosphatase Total Protein Albumin Globulin Albumin/Globulin Ratio 12/31/17 13:17 WBC RBC Hgb Hct MCV MCH MCHC RDW Plt Count MPV Neut % (Auto) Lymph % (Auto) [place] % (Auto) Eos % (Auto) Baso % (Auto) Neut # (Auto) Lymph # (Auto) [place] # (Auto) Eos # (Auto) Baso # (Auto) PT INR APTT Sodium Potassium Chloride Carbon Dioxide Anion Gap BUN Creatinine Est GFR ( Amer) Est GFR (Non-Af Amer) POC Glucose (mg/dL) 123 H Random Glucose Calcium Total Bilirubin AST ALT Alkaline Phosphatase Total Protein Albumin Globulin Albumin/Globulin Ratio
--- NOTE | 2017-12-31 15:18 | CP.PCM.PN ---
Subjective - Date & Time of Evaluation Date of Evaluation: 12/31/17 Time of Evaluation: 15:00 - Subjective Subjective: SEEN ON RENAL F/U FEELS THE SAME L LEG IS ISCHEMIC .. FOR AMPUTATION ALL PREVIOUS EMR REVIEWED Objective - Vital Signs/Intake and Output Vital Signs (last 24 hours): Temp Pulse Resp BP Pulse Ox 98.2 F 62 18 114/78 100 12/31/17 08:25 12/31/17 13:45 12/31/17 08:25 12/31/17 13:45 12/31/17 08:25 Intake and Output: 12/31/17 12/31/17 06:59 18:59 Intake Total 100 850 Balance 100 850 - Medications Medications: Current Medications Acetaminophen (Tylenol 325mg Tab) 650 mg PO Q6 PRN PRN Reason: Fever >100.4 F Dextrose (Dextrose 50% Inj) 0 ml IV STAT PRN; Protocol PRN Reason: Hypoglycemia Protocol Dextrose (Glutose 15) 0 gm PO ONCE PRN; Protocol PRN Reason: Hypoglycemia Protocol Docusate Sodium (Colace) 100 mg PO BID [facility] Emtricitabine/Tenofovir (Truvada 200 Mg-300 Mg) 1 tab PO Q48H [facility] PRN Reason: Protocol Glucagon (Glucagen Diagnostic Kit) 0 mg IM STAT PRN; Protocol PRN Reason: Hypoglycemia Protocol Heparin Sodium (Porcine) (Heparin) 5,000 units SC Q8 [facility] Last Admin: 12/31/17 13:43 Dose: 5,000 units Dextrose (Dextrose 5% In Water 1000 Ml) 1,000 mls @ 0 mls/hr IV .Q0M PRN; Protocol; Per Protocol PRN Reason: Hypoglycemia Protocol Vancomycin/Sodium Chloride (Vancomycin 1 Gm/Ns 200 Ml) 1 gm in 200 mls @ 133 mls/hr IVPB MWF [facility] PRN Reason: Protocol Stop: 01/06/18 09:01 Piperacillin Sod/Tazobactam (Sod 2.275 gm/ Sodium Chloride) 100 mls @ 200 mls/ hr IVPB Q8H [facility] PRN Reason: Protocol Last Admin: 12/31/17 13:43 Dose: 200 mls/hr Insulin Aspart (Novolog) 0 unit SC ACHS [facility] PRN Reason: Protocol Last Admin: 12/31/17 13:17 Dose: Not Given Isosorbide Mononitrate (Imdur) 60 mg PO DAILY [facility] Last Admin: 12/31/17 10:17 Dose: Not Given Lopinavir/Ritonavir (Kaletra 200-50 Mg) 1 cap PO BID [facility] PRN Reason: Protocol Last Admin: 12/31/17 10:17 Dose: Not Given Metoprolol Tartrate (Lopressor) 25 mg PO BID [facility] Last Admin: 12/31/17 10:17 Dose: Not Given Ondansetron HCl (Zofran Inj) 4 mg IVP Q6 PRN PRN Reason: Nausea/Vomiting Petrolatum (Desitin Original) 0 gm EXT Q8H [facility] Last Admin: 12/31/17 07:52 Dose: Not Given Sevelamer Carbonate (Renvela) 800 mg PO TID [facility] Last Admin: 12/31/17 13:43 Dose: 800 mg Vitamin B Complex/Vit C/Folic Acid (Nephro-Carlos) 1 tab PO DAILY [facility] Last Admin: 12/31/17 10:17 Dose: Not Given - Labs Labs: 12/30/17 15:19 12/30/17 16:18 PT 10.2 SECONDS (9.7-12.2) 12/30/17 15:19 INR 0.9 12/30/17 15:19 APTT 23 SECONDS (21-34) 12/30/17 15:19 Assessment and Plan - Assessment and Plan (Free Text) Assessment: ESRD ON HD M W F .. TO BE C/O L LEG ISCHEMIA .. FOR AMPUTAATION C/O PRESENT CARE MEDS REVIEWED ORDERS WRITTEN
[2017-12-31] MEDS: Emtricitabine-Tenofovir 200 mg-300 mg Tab PO SCH (17:38)
[2018-01-01] MEDS: Zinc Oxide Topical 30 gm Tube EXT SCH ×3 (01:29→17:46)
--- NOTE | 2018-01-01 05:35 | CARD ---
APPROVED REPORT Protocol: LEXISCAN Test Type: LEXISCAN Test Indications: PRE OP Medical History: CHEST PAIN Target HR: 165 bpm Resting ECG: normal Resting Heart Rate: 63 bpm Resting Blood Pressure: 126/80mmHg submaximum (85%): 140 bpm TEST SUMMARY PREINFSNHYPERV.26:[id number]/80.0. INFUSIONDOSE 100:300.00.01.064/.1. [id number]/80.1. POST EXERCISE Reason for Termination: Protocol Completed Target HR: No Max HR: 64 bpm 48% of Maximum Predicted HR: 165 bpm Exercise duration: 00:30 min:sec, 0 Stage Exercise capacity: 1.0METs Max Blood Pressure: 128/80mmHg Blood Pressure response to exercise: normal resting BP - appropriate response Heart Rate response to exercise: appropriate Chest Pain: No, none Angina index: 0 Arrhythmia: No, none ST Change: No, none Deviation: 0 mm INTERPRETATION Stress EKG Conclusion: NEGATIVE LEXISCAN STRESS TEST NORMAL BP RESPONSE TO LEXISCAN NUCLEAR STUDIES TO BE READ SEPARATELY EXAM: Myocardial Perfusion STRESS/REST Imaging Protocol The imaging protocol used to acquire images was Stress Tc-99m/rest Tc-99m 1 day Stress Spect myocardial perfusion imaging was performed in supine position 45 minutes following the injection of 12.5 mCi of Tc-99 Myoview. Gated Rest Spect was performed 55 minutes after intravenous 32.5 mci Tc-99 Myoview injection. The images were gated to evaluate regional wall motion and calculate ventricular ejection fraction.Images were reconstructed using backfilter projection method in short horizontal and verticle long axis. Spect slices were generated. RESTING DATA EDV68.27tlXH3.00L/min ESV36.00mlMyocardial Pwvp104.00g Av. Heart Rate64.00bpm EF47.00% STRESS DATA EDV63.72luIJ2.40L/min ESV29.00mlMyocardial Hidc050.00g EF54.00% Regional WT score at stress:3.00 Regional WM score at stress:0.00 Summed WT score at stress:17.00 Av. Heart Rate70.00bpmSummed WM score at stress:18.00 LV Perf. Quant 17 Seg. SSS1.00 17 Seg. SRS6.00 17 Seg. SDS0.00 Stress Defect Extent (% LAD)0.00Rest Defect Extent (% LAD)0.00Rev. Defect Extent (% LAD)0.00 Stress Defect Extent (% LCX)10.00Rest Defect Extent (% LCX)37.50Rev. Defect Extent (% LCX)0.00 Stress Defect Extent (% RCA)1.10Rest Defect Extent (% RCA)5.60Rev. Defect Extent (% RCA)0.00 Stress Defect Extent (% MAURA)5.90Rest Defect Extent (% MAURA)13.70Rev. Defect Extent (% MAURA)0.00 Left Ventricle LV Function:Left ventricle systolic function is borderline. The Ejection Fraction is 50-55%. Conclusion 1. No stress induced ischemia. EF 45-55% (Low normal)
[2018-01-01] MEDS: Piperacillin/Tazobact 2.275 GM in Sodium Chloride 100 ML IVPB SCH (05:58)
--- NOTE | 2018-01-01 07:14 | CP.PCM.PN ---
<Tara Rincon - Last Filed: 01/01/18 12:58> Subjective - Date & Time of Evaluation Date of Evaluation: 01/01/18 Time of Evaluation: 07:09 - Subjective Subjective: Medicine progress note for Dr. Elizabeth Patient was seen and examined at bedside in no acute distress. Patient report feeling anxious about her surgery and admits to abdominal pain due to her anxiety. She states she still has not has a BM. She denies chest pain, dyspnea, nausea, vomiting, fevers, headaches, leg pain, leg swelling, and diarrhea. Objective - Vital Signs/Intake and Output Vital Signs (last 24 hours): Temp Pulse Resp BP Pulse Ox 98.3 F 65 20 98/58 L 99 12/31/17 23:10 01/01/18 05:57 12/31/17 23:10 01/01/18 05:57 12/31/17 23:10 Intake and Output: 01/01/18 01/01/18 06:59 18:59 Intake Total 700 Output Total 0 Balance 700 - Medications Medications: Current Medications Acetaminophen (Tylenol 325mg Tab) 650 mg PO Q6 PRN PRN Reason: Fever >100.4 F Dextrose (Dextrose 50% Inj) 0 ml IV STAT PRN; Protocol PRN Reason: Hypoglycemia Protocol Dextrose (Glutose 15) 0 gm PO ONCE PRN; Protocol PRN Reason: Hypoglycemia Protocol Docusate Sodium (Colace) 100 mg PO BID [facility] Last Admin: 12/31/17 17:37 Dose: 100 mg Emtricitabine/Tenofovir (Truvada 200 Mg-300 Mg) 1 tab PO Q48H [facility] PRN Reason: Protocol Last Admin: 12/31/17 17:38 Dose: 1 tab Glucagon (Glucagen Diagnostic Kit) 0 mg IM STAT PRN; Protocol PRN Reason: Hypoglycemia Protocol Dextrose (Dextrose 5% In Water 1000 Ml) 1,000 mls @ 0 mls/hr IV .Q0M PRN; Protocol; Per Protocol PRN Reason: Hypoglycemia Protocol Vancomycin/Sodium Chloride (Vancomycin 1 Gm/Ns 200 Ml) 1 gm in 200 mls @ 133 mls/hr IVPB MWF [facility] PRN Reason: Protocol Stop: 01/06/18 09:01 Piperacillin Sod/Tazobactam (Sod 2.275 gm/ Sodium Chloride) 100 mls @ 200 mls/ hr IVPB Q8H [facility] PRN Reason: Protocol Last Admin: 01/01/18 05:58 Dose: 200 mls/hr Insulin Aspart (Novolog) 0 unit SC ACHS [facility] PRN Reason: Protocol Last Admin: 12/31/17 22:32 Dose: Not Given Isosorbide Mononitrate (Imdur) 60 mg PO DAILY [facility] Last Admin: 12/31/17 10:17 Dose: Not Given Lopinavir/Ritonavir (Kaletra 200-50 Mg) 1 cap PO BID [facility] PRN Reason: Protocol Last Admin: 12/31/17 17:38 Dose: 1 cap Metoprolol Tartrate (Lopressor) 25 mg PO BID [facility] Last Admin: 12/31/17 17:42 Dose: Not Given Ondansetron HCl (Zofran Inj) 4 mg IVP Q6 PRN PRN Reason: Nausea/Vomiting Petrolatum (Desitin Original) 0 gm EXT Q8H [facility] Last Admin: 01/01/18 01:29 Dose: Not Given Sevelamer Carbonate (Renvela) 800 mg PO TID [facility] Last Admin: 12/31/17 17:37 Dose: 800 mg Vitamin B Complex/Vit C/Folic Acid (Nephro-Carlos) 1 tab PO DAILY [facility] Last Admin: 12/31/17 10:17 Dose: Not Given - Labs Labs: 12/30/17 15:19 12/30/17 16:18 PT 10.2 SECONDS (9.7-12.2) 12/30/17 15:19 INR 0.9 12/30/17 15:19 APTT 23 SECONDS (21-34) 12/30/17 15:19 - Additional Findings Additional findings: - Constitutional Appears: Non-toxic, Older Than Stated Age, Chronically Ill - Head Exam Head Exam: ATRAUMATIC - Eye Exam Eye Exam: absent: PERRL (left eye white, glaucoma, blind in left eye, right eye EOMI ) - ENT Exam ENT Exam: Mucous Membranes Moist - Neck Exam Neck exam: Positive for: Full Rom. Negative for: Lymphadenopathy - Respiratory Exam Respiratory Exam: Clear to Auscultation Bilateral, NORMAL BREATHING PATTERN. absent: Rales, Rhonchi, Wheezes - Cardiovascular Exam Cardiovascular Exam: REGULAR RHYTHM, +S1, +S2 - GI/Abdominal Exam GI & Abdominal Exam: Normal Bowel Sounds, Soft. absent: Tenderness - Extremities Exam Extremities exam: Right BKA, well healed scar, no ulcers noted; LLE- gangrenous/ necrotic toes; pulse non palpable - Back Exam Back exam: NORMAL INSPECTION. absent: CVA tenderness (L), CVA tenderness (R) - Neurological Exam Neurological exam: Alert, Oriented x3 - Psychiatric Exam Psychiatric exam: Normal Affect, Normal Mood - Skin Skin Exam: Warm, dry; Right chest permacath Assessment and Plan (1) Dry gangrene Status: Acute (2) CHF (congestive heart failure) Status: Acute (3) End stage renal disease on dialysis Status: Chronic (4) HTN (hypertension) Status: Chronic (5) Diabetes Status: Acute (6) HIV (human immunodeficiency virus infection) Status: Acute (7) Prophylactic measure Status: Acute - Assessment and Plan (Free Text) Plan: (1) Dry gangrene (left foot) Assessment & Plan: Hx of BKA * Vascular surgery consulted- Dr. Sinclair * ID consulted- Dr. Villegas. * Possible amputation on 01/01/18 * Cardiac clearance-> Dr. Collins consulted * Fabricioan scheduled for 12/31/17: no stress induced ischemia; EF 45-55%. * PreOp: EKG, Chest Xray (negative), Coags, NPO * Plavix held in prep for procedure * Blood cx: negative (2) CHF (congestive heart failure) * Echo (12/05/17): EF 30-35% * Cardiology consulted- Dr. Collins * Alisson on 12/[address] Collins * Continue to monitor on telemetry (3) End stage renal disease on dialysis * ESRD on HD: MWF schedule * Nephrology consulted- Dr. Cao * Continue nephrovite and velphoro (4) HTN (hypertension)--> currently hypotensive * Continue home medications: Imdur 60mg PO daily and Metoprolol 25mg PO BID ( parameters placed- hold for SBP <100, HR <60) * Metoprolol has not been given due to hypotension * NS bolus 250mls/hr given on 12/31/17. * Continue to monitor (5) Diabetes * A1c (11/29/17): 5.8 * Accuchecks * ISS (will hold home diabetic medications) * Hypoglycemic protocol (6) HIV (human immunodeficiency virus infection) * Continue home medication: Truvada 1tab PO daily, Issentriss 400mg PO BID * CD4 count (12/05/17): 143 * Viral load (12/05/17): not detected * ID consulted, Dr. Villegas. (7) HLD * Lipid panel from 11/29/17: TG 116 Chol 131 LDL 49 HDL 29 (8) Constipation * Colace 100mg PO BID (9) Prophylactic measure * DVT: SCDs are c/i due to PVD, gangrene; heparin 5000u SC Q8 held for procedure ; Plavix held for procedure * Full Code * Patient's son Dilip Zhong is unofficial health proxy; his phone number to contact [phone] * Pastoral care consult Disposition: Patient scheduled to go to OR after dialysis on 01/01/18. <Danielle Elizabeth V - Last Filed: 01/03/18 15:21> Objective - Vital Signs/Intake and Output Vital Signs (last 24 hours): Temp Pulse Resp BP Pulse Ox 97.0 F L 61 20 110/71 98 01/03/18 14:17 01/03/18 14:17 01/03/18 14:17 01/03/18 14:17 01/03/18 14:17 Intake and Output: 01/03/18 01/03/18 06:59 18:59 Intake Total 460 325 Balance 460 325 - Medications Medications: Current Medications Acetaminophen (Tylenol 325mg Tab) 650 mg PO Q6 PRN PRN Reason: Fever >100.4 F Alprazolam (Xanax) 0.25 mg PO DAILY PRN PRN Reason: Anxiety Stop: 01/09/18 10:01 Last Admin: 01/02/18 14:07 Dose: 0.25 mg Dextrose (Dextrose 50% Inj) 0 ml IV STAT PRN; Protocol PRN Reason: Hypoglycemia Protocol Dextrose (Glutose 15) 0 gm PO ONCE PRN; Protocol PRN Reason: Hypoglycemia Protocol Docusate Sodium (Colace) 100 mg PO BID [facility] Last Admin: 01/03/18 11:00 Dose: Not Given Emtricitabine/Tenofovir (Truvada 200 Mg-300 Mg) 1 tab PO Q48H [facility] PRN Reason: Protocol Last Admin: 01/02/18 17:46 Dose: 1 tab Glucagon (Glucagen Diagnostic Kit) 0 mg IM STAT PRN; Protocol PRN Reason: Hypoglycemia Protocol Hydromorphone HCl (Dilaudid) 1 mg IVP Q4H PRN PRN Reason: Pain, severe (8-10) Dextrose (Dextrose 5% In Water 1000 Ml) 1,000 mls @ 0 mls/hr IV .Q0M PRN; Protocol; Per Protocol PRN Reason: Hypoglycemia Protocol Vancomycin/Sodium Chloride (Vancomycin 1 Gm/Ns 200 Ml) 1 gm in 200 mls @ 133 mls/hr IVPB MWF [facility] PRN Reason: Protocol Stop: 01/06/18 09:01 Last Admin: 01/03/18 15:18 Dose: 133 mls/hr Piperacillin Sod/Tazobactam (Sod 2.25 gm/ Sodium Chloride) 100 mls @ 200 mls/ hr IVPB Q8H [facility] PRN Reason: Protocol Last Admin: 01/03/18 14:18 Dose: 200 mls/hr Insulin Aspart (Novolog) 0 unit SC ACHS [facility] PRN Reason: Protocol Last Admin: 01/03/18 12:30 Dose: Not Given Isosorbide Mononitrate (Imdur) 60 mg PO DAILY [facility] Last Admin: 01/03/18 14:19 Dose: 60 mg Lopinavir/Ritonavir (Kaletra 200-50 Mg) 1 cap PO BID [facility] PRN Reason: Protocol Last Admin: 01/03/18 14:19 Dose: 1 cap Metoprolol Tartrate (Lopressor) 25 mg PO BID [facility] Last Admin: 01/03/18 11:00 Dose: Not Given Ondansetron HCl (Zofran Inj) 4 mg IVP Q6 PRN PRN Reason: Nausea/Vomiting Oxycodone/Acetaminophen (Percocet 5/325 Mg Tab) 2 tab PO Q4H PRN PRN Reason: Pain, Mild (1-3) Stop: 01/05/18 08:25 Last Admin: 01/02/18 14:07 Dose: 2 tab Petrolatum (Desitin Original) 0 gm EXT Q8H [facility] Last Admin: 01/03/18 08:46 Dose: 1 applic Sevelamer Carbonate (Renvela) 800 mg PO TID [facility] Last Admin: 01/03/18 14:19 Dose: 800 mg Vitamin B Complex/Vit C/Folic Acid (Nephro-Carlos) 1 tab PO DAILY [facility] Last Admin: 01/03/18 14:19 Dose: 1 tab - Labs Labs: 01/03/18 11:50 01/03/18 10:27 PT 10.2 SECONDS (9.7-12.2) 12/30/17 15:19 INR 0.9 12/30/17 15:19 APTT 23 SECONDS (21-34) 12/30/17 15:19 Attending/Attestation - Attestation I have personally seen and examined this patient.: Yes I have fully participated in the care of the patient.: Yes I have reviewed all pertinent clinical information, including history, physical exam and plan: Yes Notes (Text): This is late computer entry for 01/01/18. Patient seen, examined and case discussed with medical assistant instructor. Assessment/Plan 1) Dry gangrene L Foot Hx of peripheral vascular disease Left heel chronic wound * Vascular surgery: Dr. Sinclair on board--> help appreciated * Infectious Disease: Dr. Villegas on board-->help appreciated * Cardiology: Dr. Collins on board-->help appreciated * Vascular study (11/29/17): aortofemoral angiogram underwent pathway atherectomy of the left superficial and popliteal artery, balloon angioplasty of the naterior tibial artery, balloon angioplasty, and stent of the superificial femoral artery on the patient's left side * Plavix held on admission * Blood cultures ordered * Patient prior hospitalizations from 11/28/17 and 12/06/17 no bactermia noted * Patient is already moderate-high risk individual in light of co-morbiditis (DM , COPD, HTN, Lipid disorder); will ask cardiology for risk assessment which is currently underway * Pending stress test and echocardiogram 2) CHF Systolic dysfunction * upgraded to telemetry * Cardiology (Dr. Collins) on the case-->Help appreciated * Patient has had no prior cardiac evaluation in light of low EF * Patient has cardiac risk factors: diabetes, hypertension, lipid disorder, no prior hx of HI * Recommended for Lexiscan as per Dr. Collins; NPO after midnight 12/30 * Echocardiogram (12/07/17): left ventricle is normal size. left ventricle systolic function is moderately impaired. EF: 30-35% mild to moderate global hypokinesis of the left ventricle. left ventricular diastolc function is abnormal. * pending stress and echocardiogram 3) ESRD (MWF) * Patient is due for dialysis today but did not complete regular schedule dialysis. * Dialysis consent obtained by the resident with patient and patient's son at bedside. * Prior history of infected permcath site which was removed and replaced noted in last hospitalization * patient has howard over old dialysis access fron 12/07/17 * Will need to f/u surgery in regards to staple removal * Nephrology (Dr. Cao) on consult * Procrit 10,000 unit IV MWF * Nephro-Carlos 1 tab PO daily 5) Lipid Disorder * Lipid panel from 11/29/17: TG 116 Chol 131 LDL 49 HDL 29 6) Hypertension, History of Hypotension * Patient is asymptomatic at her borderline low blood pressure * Given 250 cc bolus X2 during the day; npo for cardiac testing * Holding parameters for blood pressure in the medications * Imdur 60mg PO daily * Lopressor 25mg PO BID 7) Diabetes Mellitus, Controlled * HgbA1c checked on 11/29/17 was 5.8. * Accuchecks Q6H--->will change to achs after completion for cardiac testing today * ISS. Will hold home diabetic medications: Starlix * Hypoglycemic protocol 8) Known hx of HIV: * Infectious Disease (Dr. Villegas) on consult-->help appreciated * HIV RNA <1.30 non detected * Will continue HIV meds: Truvada 1 tab po qd and Issentriss 400 BID. * Last CD4 count from 11/2017 was 143 9) Prophylactic measure * Contraindications to SCD secondary to peripheral vascular disease/necrotic toes * Hold plavix (prior hx of vascular stent) in left lower extremity in light of vascular procedure * Heparin 5000 units subq 8H for DVT ppx * Patient is Full code. * Patient's son Dilip Rabago is unofficial health proxy; his phone number to contact [phone]-->can be called at anytime
[2018-01-01] MEDS: (Novolog) Insulin Aspart, Recombinant 100 u/ml 10 ml vial SC SCH ×4 (07:48→22:38)
--- NOTE | 2018-01-01 08:16 | CON ---
DATE: INFECTIOUS DISEASE CONSULTATION REQUESTED BY: Dr. Elizabeth. HISTORY OF PRESENT ILLNESS: This patient is a 57-year-old female. She has a history of hyperlipemia, hypertension, HIV, end-stage renal disease, and diabetes mellitus. She also has a catheter for the dialysis as she has a shunt which did not work. She is admitted with left gangrene venous foot ulcer, and now there is a left foot necrosis, and she is now aware of it and wants something to be done for it but when I went in today to see her, she was yelling and shouting. She did not want any blood to be drawn. She wanted to wait for it to be drawn on next dialysis. The patient gets sometime uncontrolled and agitated. She was complaining that her foot has become black and discolored. PAST MEDICAL HISTORY: Significant for diabetes, hypertension, hyperlipidemia, peripheral vascular disease, HIV, chronic heel ulcers, end-stage renal disease, has been on dialysis and has had multiple problems with shunts in the past. Significant for infection, HIV disease, past medical history of smoking, former smoker, CHF, no respiratory failure but she has had congestive heart failure, history of glaucoma, wears glasses, chronic kidney disease. She has hyperthyroidism and hypothyroidism also in the past. She has HIV disease. She has dermatological no problems, but she has musculoskeletal right BKA. Anesthesia in the past. ALLERGIES: NOT ALLERGIC TO ANY MEDICATION. PAST SURGICAL HISTORY: Significant for right BKA and has had multiple accesses for the dialysis. MEDICATIONS: She is on Isentress, Starlix, metoprolol, Procrit, and isosorbide. She is on Kaletra, Toprol, iron pills, B complex and folic acid. SOCIAL HISTORY: She lives with her son. She is a former smoker. She has amputation of the right lower extremity and does not ambulate. REVIEW OF SYSTEMS: She denies any headaches right now, but is angry, agitated. Denied any fevers. Has no change of vision. Denies any chest pain. No shortness of breath. No dyspnea on exertion. No abdominal pain, nausea, or vomiting. Denies any urinary complaints. Does have numbness and has new lesions on the foot with necrosis and is concerned about it. Has a has history of falls. PHYSICAL EXAMINATION: VITAL SIGNS: I find, her temperature is 98, pulse 75, blood pressure is 99/62, respirations are 20. HEENT: Head is atraumatic and normocephalic. Pupils are reacting to light, has glasses on. NECK: Supple. Has a dialysis catheter on the right side. She has AV fistulas on both arms, which do not work. HEART: S1 and S2, regular. No murmurs appreciated. LUNGS: Clear at this time. ABDOMEN: Soft, flabby, and nontender. EXTREMITIES: Right leg amputation is present. Right foot has necrotic ulcerations and discolored and cannot demarcate between the foot and leg, cannot make out the demarcation even. LABORATORY DATA: Labs are noted. Labs show white count is 7.7, hemoglobin 13.4, hematocrit 40.1, platelet count is 203. These labs are from yesterday as the patient did not allow anybody to draw labs today. There were blood cultures done, which are too negative from yesterday, and they are doing a cardiac evaluation on her. She had a myoperfusion scan today. MEDICATIONS: She is on vancomycin, Zosyn, Tylenol. She is on Colace, Truvada, glucagon that is just for the time being to keep, heparin subcutaneous every 8 hours, insulin, isosorbide. She is on Kaletra and Truvada. I think, last time she was on different medications if I remember. She is on Zosyn. She is on tenofovir/Truvada, Kaletra, metoprolol, Zosyn, Renvela, vancomycin, and ____. IMPRESSION AND PLAN: So, my impression is that this patient has a gangrene of the left foot and is encroaching on to the leg with foot necrosis. She is insulin dependent diabetic with end-stage renal disease, human immunodeficiency virus disease. She also has personality disorder, looks like that she gets agitated easy and depression. We will follow. We will continue with vancomycin and Zosyn at this time. The patient is waiting for impending surgery with the vascular surgeon and is waiting for cardiac clearance. Tammy Villegas MD
[2018-01-01] MEDS ORDERED: Epoetin Alfa 10,000 unit/ml Dialysis IV SCH (09:00)
[2018-01-01] MEDS: Vancomycin 1 gm/NS 200 ml 1 GM/200 ML BAG IVPB SCH (09:09)
[2018-01-01] MEDS: Multivitamin Vitamin B Complex (Nephro-Vite) Tab PO SCH (09:23)
[2018-01-01 09:54] LABS: ALB/GLOB RATIO 0.8 (1.0-2.1); ALBUMIN 3.7 g/dL (3.5-5.0); ALT/SGPT < 6 U/L (9-52); AST/SGOT 28 U/L (14-36); BLOOD UREA NITROGEN 35 mg/dL (7-17); CALCIUM 8.7 mg/dl (8.6-10.4); GFR AFRICAN-AMERICAN 8; GFR NON-AFRICAN AMERICAN 7
[2018-01-01] MEDS ORDERED: Propofol 10 mg/ml Inj (20 ML) ONE (10:13)
[2018-01-01] MEDS ORDERED: Midazolam 2 MG/2 ML VIAL ONE (10:13)
--- NOTE | 2018-01-01 10:13 | CP.PCM.PN ---
Subjective - Date & Time of Evaluation Date of Evaluation: 12/31/17 Time of Evaluation: 16:30 - Subjective Subjective: Patient was seen and evaluated on 12/31/17 Pre Op cardiac Risk assessment This patient is a 57yo F w/ a PMHx HLD, HTN, HIV undetectable, ESRD MWF schedule , DM on insulin, PAD, schedule who is coming to the hospital with a left gangrenous foot that she has had for 2-3 months at this point, but has been problematic for the past year. Denies chest pain and dyspnea PMhx: uncontrolled DM, HTN, HLD, HIV, PAD, chronic heel ulcers, ESRD on HD [facility] Allergies: None Surgeries: Right BKA amputation, multiple placements for vascular access for dialysis Medications: Isentress 400mg BID, Starlix 60mg daily, metroprolol 25mg BID, procrit 10k IV MWF, isorbide mononitrate 60mg PO daily, Lopinavir/Ritonavir 200- 50 PO BID, Toprol 25mg BID, Iron pills 500mg PO TID, Vit B complex, Folic Acid Social: Lives with son, does not walk at baseline (amputation of the right extrem below the knee most recently), former smoker Present on Admission - Present on Admission Any Indicators Present on Admission: Yes History of DVT/PE: Yes History of Uncontrolled Diabetes: Yes Urinary Catheter: No Decubitus Ulcer Present: No Past Patient History - Infectious Disease Hx of Infectious Diseases: None - Past Medical History & Family History Past Medical History?: Yes - Past Social History Smoking Status: Former Smoker - CARDIAC Hx Congestive Heart Failure: Yes Hx Hypertension: Yes - PULMONARY Hx Respiratory Disorders: No - NEUROLOGICAL Hx Dementia: Yes - HEENT Hx HEENT Problems: Yes (wears glasses) Hx Glaucoma: Yes - RENAL Hx Chronic Kidney Disease: Yes - ENDOCRINE/METABOLIC Hx Hyperthyroidism: Yes Hx Hypothyroidism: Yes - HEMATOLOGICAL/ONCOLOGICAL Hx Human Immunodeficiency Virus (HIV): Yes - INTEGUMENTARY Hx Dermatological Problems: No - MUSCULOSKELETAL/RHEUMATOLOGICAL Hx Musculoskeletal Disorders: Yes (Right BKA) Hx Falls: Yes - GASTROINTESTINAL Hx Gastrointestinal Disorders: No - GENITOURINARY/GYNECOLOGICAL Hx Genitourinary Disorders: Yes Other/Comment: oliguria, on hemodialysis MWF - PSYCHIATRIC Hx Anxiety: Yes Hx Substance Use: No - SURGICAL HISTORY Hx Amputation: Yes (Right BKA) Other/Comment: vascular sx LLE - ANESTHESIA Hx Anesthesia: Yes Hx Anesthesia Reactions: No Hx Malignant Hyperthermia: No Physical Exam - Constitutional Appears: Non-toxic, Older Than Stated Age, Chronically Ill - Head Exam Head Exam: ATRAUMATIC - Eye Exam Eye Exam: absent: PERRL (left eye white, glaucoma, blind in left eye, right eye EOMI ) - ENT Exam ENT Exam: Mucous Membranes Moist - Neck Exam Neck exam: Positive for: Full Rom. Negative for: Lymphadenopathy - Respiratory Exam Respiratory Exam: Clear to Auscultation Bilateral, NORMAL BREATHING PATTERN. absent: Rales, Rhonchi, Wheezes - Cardiovascular Exam Cardiovascular Exam: REGULAR RHYTHM, +S1, +S2 - GI/Abdominal Exam GI & Abdominal Exam: Normal Bowel Sounds, Soft. absent: Tenderness - Extremities Exam Extremities exam: Negative for: calf tenderness, normal inspection (no pain) - Back Exam Back exam: NORMAL INSPECTION. absent: CVA tenderness (L), CVA tenderness (R) - Neurological Exam Neurological exam: Alert, Oriented x3 - Psychiatric Exam Psychiatric exam: Normal Affect, Normal Mood - Skin Skin Exam: Warm Objective - Vital Signs/Intake and Output Vital Signs (last 24 hours): Temp Pulse Resp BP Pulse Ox 98.1 F 68 20 85/52 L 94 L 01/01/18 07:00 01/01/18 07:00 01/01/18 07:00 01/01/18 09:22 01/01/18 07:00 Intake and Output: 01/01/18 01/01/18 06:59 18:59 Intake Total 700 Output Total 0 Balance 700 - Medications Medications: Current Medications Acetaminophen (Tylenol 325mg Tab) 650 mg PO Q6 PRN PRN Reason: Fever >100.4 F Dextrose (Dextrose 50% Inj) 0 ml IV STAT PRN; Protocol PRN Reason: Hypoglycemia Protocol Dextrose (Glutose 15) 0 gm PO ONCE PRN; Protocol PRN Reason: Hypoglycemia Protocol Docusate Sodium (Colace) 100 mg PO BID [facility] Last Admin: 01/01/18 09:22 Dose: Not Given Emtricitabine/Tenofovir (Truvada 200 Mg-300 Mg) 1 tab PO Q48H [facility] PRN Reason: Protocol Last Admin: 12/31/17 17:38 Dose: 1 tab Glucagon (Glucagen Diagnostic Kit) 0 mg IM STAT PRN; Protocol PRN Reason: Hypoglycemia Protocol Dextrose (Dextrose 5% In Water 1000 Ml) 1,000 mls @ 0 mls/hr IV .Q0M PRN; Protocol; Per Protocol PRN Reason: Hypoglycemia Protocol Vancomycin/Sodium Chloride (Vancomycin 1 Gm/Ns 200 Ml) 1 gm in 200 mls @ 133 mls/hr IVPB MWF [facility] PRN Reason: Protocol Stop: 01/06/18 09:01 Last Admin: 01/01/18 09:09 Dose: 133 mls/hr Piperacillin Sod/Tazobactam (Sod 2.275 gm/ Sodium Chloride) 100 mls @ 200 mls/ hr IVPB Q8H [facility] PRN Reason: Protocol Last Admin: 01/01/18 05:58 Dose: 200 mls/hr Insulin Aspart (Novolog) 0 unit SC ACHS [facility] PRN Reason: Protocol Last Admin: 01/01/18 07:48 Dose: Not Given Isosorbide Mononitrate (Imdur) 60 mg PO DAILY [facility] Last Admin: 01/01/18 09:22 Dose: Not Given Lopinavir/Ritonavir (Kaletra 200-50 Mg) 1 cap PO BID [facility] PRN Reason: Protocol Last Admin: 12/31/17 17:38 Dose: 1 cap Metoprolol Tartrate (Lopressor) 25 mg PO BID [facility] Last Admin: 01/01/18 09:22 Dose: Not Given Ondansetron HCl (Zofran Inj) 4 mg IVP Q6 PRN PRN Reason: Nausea/Vomiting Petrolatum (Desitin Original) 0 gm EXT Q8H [facility] Last Admin: 01/01/18 09:08 Dose: Not Given Sevelamer Carbonate (Renvela) 800 mg PO TID [facility] Last Admin: 01/01/18 09:23 Dose: Not Given Vitamin B Complex/Vit C/Folic Acid (Nephro-Carlos) 1 tab PO DAILY [facility] Last Admin: 01/01/18 09:23 Dose: Not Given - Labs Labs: 12/30/17 15:19 01/01/18 09:20 PT 10.2 SECONDS (9.7-12.2) 12/30/17 15:19 INR 0.9 12/30/17 15:19 APTT 23 SECONDS (21-34) 12/30/17 15:19 Assessment and Plan - Assessment and Plan (Free Text) Assessment: (1) Dry gangrene (left foot) Assessment & Plan: Hx of BKA * Vascular surgery consulted- Dr. Sinclair * ID consulted- Dr. Villegas. * Possible amputation on 01/01/18 * PreOp: EKG, Chest Xray (negative), Coags, NPO * Plavix held in prep for procedure * Blood cx: negative (2) CHF (congestive heart failure) * Echo (12/05/17): EF 30-35% * Continue to monitor on telemetry (3) End stage renal disease on dialysis * ESRD on HD: MWF schedule * Nephrology consulted- Dr. Cao * Continue nephrovite and velphoro (4) HTN (hypertension)--> currently hypotensive * Continue home medications: Imdur 60mg PO daily and Metoprolol 25mg PO BID ( parameters placed- hold for SBP <100, HR <60) * Metoprolol has not been given due to hypotension * NS bolus 250mls/hr given on 12/31/17. * Continue to monitor (5) Diabetes * A1c (11/29/17): 5.8 * Accuchecks * ISS (will hold home diabetic medications) * Hypoglycemic protocol (6) HIV (human immunodeficiency virus infection) * Continue home medication: Truvada 1tab PO daily, Issentriss 400mg PO BID * CD4 count (12/05/17): 143 * Viral load (12/05/17): not detected * ID consulted, Dr. Villegas. (7) HLD * Lipid panel from 11/29/17: TG 116 Chol 131 LDL 49 HDL 29 (8) Constipation * Colace 100mg PO BID (9) Prophylactic measure * DVT: SCDs are c/i due to PVD, gangrene; heparin 5000u SC Q8 held for procedure ; Plavix held for procedure * Full Code * Patient's son Dilip Zhong is unofficial health proxy; his phone number to contact [phone] Pre Oprerative Cardiac Risk Assessment: 57 F with multiple cardiac risk factors and low EF (Stress test negative for exercise induced ischemia) assessed as high risk for cardiac events for AKA under general anaesthesia If benefit outweighs the risk please proceed with the surgery D/W the patient, Her son and Yahir Herrera Avoid fluid overload
[2018-01-01] MEDS ORDERED: Sodium Chloride 0.9% 1,000 ML IV ONE (10:45)
[2018-01-01] MEDS ORDERED: Etomidate 20 mg/10ml Inj IV ONE (11:00)
[2018-01-01] MEDS: HYDROmorphone 0.5 mg/0.5 ml ISec IVP PRN ×3 (12:06→22:25)
--- NOTE | 2018-01-01 12:07 | PCM.SURG1 ---
Surgeon's Initial Post Op Note - Surgeon's Notes Surgeon: Den Surfacer: WENDIE Munoz. JARRETT PandyaY2 Pre-Operative Diagnosis: Peripheral vascular disease Operative Findings: PVD, arterial stent Post-Operative Diagnosis: Peripheral vascular disease Operation Performed: left Above knee amputation Specimen/Specimens Removed: left Lower extremity above knee Estimated Blood Loss: EBL {In ML}: 300 Date of Surgery/Procedure: 01/01/18 Time of Surgery/Procedure: 11:00
[2018-01-01] MEDS ORDERED: HYDROmorphone 0.5 mg/0.5 ml ISec ONE (12:08)
[2018-01-01] MEDS ORDERED: HYDROmorphone 0.5 mg/0.5 ml ISec IVP PRN (12:09)
[2018-01-01] MEDS: Lopinavir/Ritonavir Tab PO SCH ×2 (12:59→22:00)
[2018-01-01] MEDS ORDERED: Sodium Chloride 0.9% 500 ML IV ONE ×2 (18:26→18:44)
--- NOTE | 2018-01-01 19:17 | CARD ---
APPROVED REPORT EXAM: LIMITED Two-dimensional and M-mode echocardiogram with Doppler and color Doppler. INDICATION LV Function:Systolic limited study for LV EF 2D DIMENSIONS IVSd1.0 (0.7-1.1cm)LVDd3.3 (3.9-5.9cm) PWd0.9 (0.7-1.1cm)LVDs2.9 (2.5-4.0cm) FS (%) 13.2 %LVEF (%)29.3 (>50%) M-Mode DIMENSIONS IVSd0.88 (0.7-1.1cm)LVDd3.89 (4.0-5.6cm) PWd0.79 (0.7-1.1cm)FS (%) 15 % LVDs3.31 (2.0-3.8cm)LVEF (%)32 (>50%) Mitral Valve E/A ratio0.0 TDI E/Lateral E'0.0E/Medial E'0.0 <Conclusion> This is a limited study for left ventricular ejection fraction Multiple views shows the left ventricle ejection fraction approximately is 40%. Septum and inferior wall appears to be moderately hypokinetic.
[2018-01-01] MEDS ORDERED: HYDROmorphone 0.5 mg/0.5 ml ISec IVP STA (19:48)
[2018-01-01 20:02] LABS: BASO % 0.6 % (0.0-2.0); EOS # 0.1 K/uL (0.0-0.7); EOS % 1.8 % (0.0-4.0); HEMOGLOBIN 9.2 g/dL (11.0-16.0); LYMPH # 0.7 K/uL (1.0-4.3); LYMPH % 14.8 % (20.0-40.0); MEAN CELL VOLUME 102.1 fL (81.0-99.0); MEAN CORPUSCULAR HEMOGLOBIN 32.5 pg (27.0-31.0); MEAN CORPUSCULAR HGB CONC 31.9 g/dL (33.0-37.0); MEAN PLATELET VOLUME 8.7 fL (7.2-11.7); MONO # 0.3 K/uL (0.0-0.8); MONO % 6.3 % (0.0-10.0); NEUT # 3.6 K/uL (1.8-7.0); NEUT % 76.5 % (50.0-75.0); NRBC % 0.1 % (0.0-2.0); RBC 2.84 Mil/uL (3.80-5.20); RED CELL DISTRIBUTION WIDTH 21.6 % (11.5-14.5); WHITE BLOOD COUNT 4.7 K/uL (4.8-10.8)
[2018-01-01 20:14] LABS: ALB/GLOB RATIO 0.8 (1.0-2.1); ALBUMIN 3.1 g/dL (3.5-5.0); CALCIUM 7.7 mg/dl (8.6-10.4)
--- NOTE | 2018-01-01 21:15 | OP ---
PROCEDURE DATE: 01/01/2018 PREOPERATIVE DIAGNOSIS: Gangrene of the left foot. PROCEDURE: Left above-knee amputation. SURGEON: Aden Sinclair Jr., M.D. WASH MILL OPERATOR: Dr. Rivas and Dr. Griffin. ANESTHESIA ADMINISTERED BY: Mr. Méndez. INDICATION: The patient is a 57-year-old woman who has multiple medical problems including diabetes, previous amputation of left leg, end-stage renal dialysis, and HIV who presents with a worsening foot. The patient had gangrene of the foot, underwent successful endovascular intervention, and now presents with worsening of the foot. OPERATIVE FINDINGS: 1. The previously placed stents in the femoral artery were widely patent with excellent blood flow. 2. There is excellent vascularity at the amputated site. 3. The rest of intraoperative findings were unremarkable. BLOOD LOSS: 300 mL DESCRIPTION OF PROCEDURE: Standard incision was made above the knee after skin prep was carried out. The vessels were ligated as mentioned with heavy silk sutures, both the artery and the vein. Hemostasis obtained on the rest of wound, which was carefully. The wound was approximated with Monocryl sutures and the skin closed with skin clips. Blood loss was 300 mL. Operation carried out is left above knee amputation. Aden Sinclair Jr., MD
[2018-01-01] MEDS ORDERED: Morphine 4 MG/ML VIAL IVP STA (21:42)
[2018-01-01] MEDS: Piperacillin/Tazobact 2.25 GM in Sodium Chloride 100 ML IVPB SCH (21:58)
[2018-01-02] MEDS: Zinc Oxide Topical 30 gm Tube EXT SCH ×4 (00:50→18:02)
[2018-01-02] MEDS: HYDROmorphone 0.5 mg/0.5 ml ISec IVP PRN ×3 (02:28→17:44)
[2018-01-02] MEDS: Piperacillin/Tazobact 2.25 GM in Sodium Chloride 100 ML IVPB SCH ×3 (05:38→21:46)
[2018-01-02] MEDS ORDERED: HYDROmorphone 0.5 mg/0.5 ml ISec IVP PRN (06:28)
--- NOTE | 2018-01-02 06:58 | CP.PCM.PN ---
Subjective - Date & Time of Evaluation Date of Evaluation: 01/02/18 Time of Evaluation: 06:57 - Subjective Subjective: Medicine progress note for Dr. Elizabeth Patient was seen and examined at bedside. Patient states she has pain in her left LE s/p AKA. She also reports she is "scared about whats going on with her health". Patient says she has not had a BM yet. Patient denies chest pain, dyspnea, abdominal pain, nausea, vomiting, fevers, headaches. LOANS OFFICER occurred yesterday evening due to hypotension post-dialysis. Bolus was given, CBC was ordered, 2 units of PRBC were ordered. Right EJ was inserted. Patient's bp was rechecked and increased, PRBC were not given. Objective - Vital Signs/Intake and Output Vital Signs (last 24 hours): Temp Pulse Resp BP Pulse Ox 97.4 F L 97 H 20 121/81 99 01/02/18 04:15 01/02/18 04:15 01/02/18 04:15 01/02/18 04:15 01/02/18 04:15 - Medications Medications: Current Medications Acetaminophen (Tylenol 325mg Tab) 650 mg PO Q6 PRN PRN Reason: Fever >100.4 F Alprazolam (Xanax) 0.25 mg PO DAILY PRN PRN Reason: Anxiety Stop: 01/09/18 10:01 Dextrose (Dextrose 50% Inj) 0 ml IV STAT PRN; Protocol PRN Reason: Hypoglycemia Protocol Dextrose (Glutose 15) 0 gm PO ONCE PRN; Protocol PRN Reason: Hypoglycemia Protocol Docusate Sodium (Colace) 100 mg PO BID [facility] Last Admin: 01/01/18 22:00 Dose: Not Given Emtricitabine/Tenofovir (Truvada 200 Mg-300 Mg) 1 tab PO Q48H [facility] PRN Reason: Protocol Last Admin: 12/31/17 17:38 Dose: 1 tab Glucagon (Glucagen Diagnostic Kit) 0 mg IM STAT PRN; Protocol PRN Reason: Hypoglycemia Protocol Heparin Sodium (Porcine) (Heparin) 4,600 units IVP MWF@1600 [facility] Last Admin: 01/01/18 16:43 Dose: 4,600 units Hydromorphone HCl (Dilaudid) 0.5 mg IVP Q4H PRN PRN Reason: Pain, severe (8-10) Last Admin: 01/02/18 02:28 Dose: 0.5 mg Hydromorphone HCl (Dilaudid) 1 mg IVP Q4H PRN PRN Reason: Pain, severe (8-10) Last Admin: 01/02/18 06:42 Dose: 1 mg Dextrose (Dextrose 5% In Water 1000 Ml) 1,000 mls @ 0 mls/hr IV .Q0M PRN; Protocol; Per Protocol PRN Reason: Hypoglycemia Protocol Vancomycin/Sodium Chloride (Vancomycin 1 Gm/Ns 200 Ml) 1 gm in 200 mls @ 133 mls/hr IVPB MWF [facility] PRN Reason: Protocol Stop: 01/06/18 09:01 Last Admin: 01/01/18 09:09 Dose: 133 mls/hr Piperacillin Sod/Tazobactam (Sod 2.25 gm/ Sodium Chloride) 100 mls @ 200 mls/ hr IVPB Q8H [facility] PRN Reason: Protocol Last Admin: 01/02/18 05:38 Dose: 200 mls/hr Insulin Aspart (Novolog) 0 unit SC ACHS [facility] PRN Reason: Protocol Last Admin: 01/01/18 22:38 Dose: Not Given Isosorbide Mononitrate (Imdur) 60 mg PO DAILY [facility] Last Admin: 01/01/18 09:22 Dose: Not Given Lopinavir/Ritonavir (Kaletra 200-50 Mg) 1 cap PO BID [facility] PRN Reason: Protocol Last Admin: 01/01/18 22:00 Dose: Not Given Metoprolol Tartrate (Lopressor) 25 mg PO BID [facility] Last Admin: 01/01/18 22:01 Dose: Not Given Ondansetron HCl (Zofran Inj) 4 mg IVP Q6 PRN PRN Reason: Nausea/Vomiting Petrolatum (Desitin Original) 0 gm EXT Q8H [facility] Last Admin: 01/02/18 00:50 Dose: 1 applic Sevelamer Carbonate (Renvela) 800 mg PO TID [facility] Last Admin: 01/01/18 20:06 Dose: Not Given Vitamin B Complex/Vit C/Folic Acid (Nephro-Carlos) 1 tab PO DAILY [facility] Last Admin: 01/01/18 09:23 Dose: Not Given - Labs Labs: 01/01/18 19:57 01/01/18 19:57 PT 10.2 SECONDS (9.7-12.2) 12/30/17 15:19 INR 0.9 12/30/17 15:19 APTT 23 SECONDS (21-34) 12/30/17 15:19 - Additional Findings Additional findings: - Constitutional Appears: Non-toxic, Older Than Stated Age, Chronically Ill - Head Exam Head Exam: ATRAUMATIC - Eye Exam Eye Exam: absent: PERRL (left eye white, glaucoma, blind in left eye, right eye EOMI ) - ENT Exam ENT Exam: Mucous Membranes Moist - Neck Exam Neck exam: Positive for: Full Rom, Right EJ. Negative for: Lymphadenopathy - Respiratory Exam Respiratory Exam: Clear to Auscultation Bilateral, NORMAL BREATHING PATTERN. absent: Rales, Rhonchi, Wheezes - Cardiovascular Exam Cardiovascular Exam: REGULAR RHYTHM, +S1, +S2 - GI/Abdominal Exam GI & Abdominal Exam: Normal Bowel Sounds, Soft. absent: Tenderness - Extremities Exam Extremities exam: Right BKA, well healed scar, no ulcers noted; LLE- AKA, dress - dry, intact. - Back Exam Back exam: NORMAL INSPECTION. absent: CVA tenderness (L), CVA tenderness (R) - Neurological Exam Neurological exam: Alert, Oriented x3 - Psychiatric Exam Psychiatric exam: Normal Affect, Normal Mood - Skin Skin Exam: Warm, dry; Right chest permacath Assessment and Plan (1) Dry gangrene Status: Acute (2) CHF (congestive heart failure) Status: Acute (3) End stage renal disease on dialysis Status: Chronic (4) HTN (hypertension) Status: Chronic (5) Diabetes Status: Acute (6) HIV (human immunodeficiency virus infection) Status: Acute (7) Prophylactic measure Status: Acute - Assessment and Plan (Free Text) Plan: (1) Dry gangrene (left foot) S/P Left AKA Assessment & Plan: Hx of BKA S/P left AKA (on 01/01/18) * Vascular surgery consulted- Dr. Sinclair * ID consulted- Dr. Villegas. * Cardiac clearance-> Dr. Collins consulted * Lexiscan scheduled for 12/31/17: no stress induced ischemia; EF 45-55%. * PreOp: EKG, Chest Xray (negative), Coags * Plavix held * Blood cx: negative * Continue Zosyn 2.25g IV Q8h * Continue Vanco 1gm IV MWF * Continue pain management * Percocet 2tabs Q4 prn * Dilaudid 0.5mg IV Q4 prn Note: Overnight, Patient's dressing leaking/blood soaked; pressure dressing applied by surgical physician assistant. Transfusion not required at that time. Per EMR, patient was given heparin 4,600u SC during dialysis in the afternoon, s/p AKA. (2) CHF (congestive heart failure) * Echo (12/05/17): EF 30-35% * Cardiology consulted- Dr. Collins * Lexiscan on 12/[address] Collins * Continue to monitor on telemetry (3) End stage renal disease on dialysis * ESRD on HD: MWF schedule * Nephrology consulted- Dr. Cao * Continue nephrovite and velphoro (4) HTN (hypertension)--> currently hypotensive * Continue home medications: Imdur 60mg PO daily and Metoprolol 25mg PO BID ( parameters placed- hold for SBP <100, HR <60) * Metoprolol has not been given due to hypotension * NS bolus 250mls/hr given on 12/31/17. * LOANS OFFICER called on 01/01 for hypotension s/p dialysis and AKA. 500ml Bolus given; BP improved. Patient's dressing leaking/ blood soaked; pressure dressing applied by surgical physician assistant. Transfusion not required at that time. Of note, per EMR, patient was given heparin 4,600u SC during dialysis in the afternoon, s/p AKA. * Continue to monitor (5) Diabetes * A1c (11/29/17): 5.8 * Accuchecks * ISS (will hold home diabetic medications) * Hypoglycemic protocol (6) HIV (human immunodeficiency virus infection) * Continue home medication: Truvada 1tab PO daily, Issentriss 400mg PO BID * CD4 count (12/05/17): 143 * Viral load (12/05/17): not detected * ID consulted, Dr. Villegas. (7) HLD * Lipid panel from 11/29/17: TG 116 Chol 131 LDL 49 HDL 29 (8) Constipation * Colace 100mg PO BID * Dulcolax given once (9) Anxiety * Xanax 0.25mg PO PRN (10) Prophylactic measure * DVT: heparin 4600u SC MWF per nephrology; Plavix held. * Full Code * Patient's son Dilip Zhong is unofficial health proxy; his phone number to contact [phone] * Pastoral care consult * PT Disposition: Patient s/p left AKA, POD#1.
[2018-01-02 07:44] LABS: BASO % 0.8 % (0.0-2.0); EOS % 0.4 % (0.0-4.0); HEMOGLOBIN 10.7 g/dL (11.0-16.0); LYMPH # 0.5 K/uL (1.0-4.3); LYMPH % 9.1 % (20.0-40.0); MEAN CORPUSCULAR HEMOGLOBIN 33.4 pg (27.0-31.0); MEAN CORPUSCULAR HGB CONC 31.7 g/dL (33.0-37.0); MEAN PLATELET VOLUME 9.6 fL (7.2-11.7); MONO # 0.3 K/uL (0.0-0.8); MONO % 5.4 % (0.0-10.0); NEUT % 84.3 % (50.0-75.0); NRBC % 0.1 % (0.0-2.0); PLATELET COUNT 75 K/uL (130-400); RBC 3.19 Mil/uL (3.80-5.20); RED CELL DISTRIBUTION WIDTH 21.2 % (11.5-14.5); WHITE BLOOD COUNT 5.9 K/uL (4.8-10.8)
[2018-01-02 07:45] LABS: MEAN CELL VOLUME 105.2 fL (81.0-99.0)
--- NOTE | 2018-01-02 07:52 | CP.PCM.PN ---
Subjective - Date & Time of Evaluation Date of Evaluation: 01/02/18 Time of Evaluation: 07:48 - Subjective Subjective: SURGERY NOTE FOR DR. BRIAN 57F seen and examined at bedside. Last night had an episode of hypotension after dialysis. Patient states site of amputation is tender, states she was not able to sleep. Objective - Vital Signs/Intake and Output Vital Signs (last 24 hours): Temp Pulse Resp BP Pulse Ox 97.4 F L 97 H 20 121/81 99 01/02/18 04:15 01/02/18 04:15 01/02/18 04:15 01/02/18 04:15 01/02/18 04:15 - Medications Medications: Current Medications Acetaminophen (Tylenol 325mg Tab) 650 mg PO Q6 PRN PRN Reason: Fever >100.4 F Alprazolam (Xanax) 0.25 mg PO DAILY PRN PRN Reason: Anxiety Stop: 01/09/18 10:01 Dextrose (Dextrose 50% Inj) 0 ml IV STAT PRN; Protocol PRN Reason: Hypoglycemia Protocol Dextrose (Glutose 15) 0 gm PO ONCE PRN; Protocol PRN Reason: Hypoglycemia Protocol Docusate Sodium (Colace) 100 mg PO BID [facility] Last Admin: 01/01/18 22:00 Dose: Not Given Emtricitabine/Tenofovir (Truvada 200 Mg-300 Mg) 1 tab PO Q48H [facility] PRN Reason: Protocol Last Admin: 12/31/17 17:38 Dose: 1 tab Glucagon (Glucagen Diagnostic Kit) 0 mg IM STAT PRN; Protocol PRN Reason: Hypoglycemia Protocol Heparin Sodium (Porcine) (Heparin) 4,600 units IVP MWF@1600 [facility] Last Admin: 01/01/18 16:43 Dose: 4,600 units Hydromorphone HCl (Dilaudid) 0.5 mg IVP Q4H PRN PRN Reason: Pain, severe (8-10) Last Admin: 01/02/18 02:28 Dose: 0.5 mg Hydromorphone HCl (Dilaudid) 1 mg IVP Q4H PRN PRN Reason: Pain, severe (8-10) Last Admin: 01/02/18 06:42 Dose: 1 mg Dextrose (Dextrose 5% In Water 1000 Ml) 1,000 mls @ 0 mls/hr IV .Q0M PRN; Protocol; Per Protocol PRN Reason: Hypoglycemia Protocol Vancomycin/Sodium Chloride (Vancomycin 1 Gm/Ns 200 Ml) 1 gm in 200 mls @ 133 mls/hr IVPB MWF [facility] PRN Reason: Protocol Stop: 01/06/18 09:01 Last Admin: 01/01/18 09:09 Dose: 133 mls/hr Piperacillin Sod/Tazobactam (Sod 2.25 gm/ Sodium Chloride) 100 mls @ 200 mls/ hr IVPB Q8H [facility] PRN Reason: Protocol Last Admin: 01/02/18 05:38 Dose: 200 mls/hr Insulin Aspart (Novolog) 0 unit SC ACHS [facility] PRN Reason: Protocol Last Admin: 01/01/18 22:38 Dose: Not Given Isosorbide Mononitrate (Imdur) 60 mg PO DAILY [facility] Last Admin: 01/01/18 09:22 Dose: Not Given Lopinavir/Ritonavir (Kaletra 200-50 Mg) 1 cap PO BID [facility] PRN Reason: Protocol Last Admin: 01/01/18 22:00 Dose: Not Given Metoprolol Tartrate (Lopressor) 25 mg PO BID [facility] Last Admin: 01/01/18 22:01 Dose: Not Given Ondansetron HCl (Zofran Inj) 4 mg IVP Q6 PRN PRN Reason: Nausea/Vomiting Petrolatum (Desitin Original) 0 gm EXT Q8H [facility] Last Admin: 01/02/18 00:50 Dose: 1 applic Sevelamer Carbonate (Renvela) 800 mg PO TID [facility] Last Admin: 01/01/18 20:06 Dose: Not Given Vitamin B Complex/Vit C/Folic Acid (Nephro-Carlos) 1 tab PO DAILY [facility] Last Admin: 01/01/18 09:23 Dose: Not Given - Labs Labs: 01/02/18 07:31 01/01/18 19:57 PT 10.2 SECONDS (9.7-12.2) 12/30/17 15:19 INR 0.9 12/30/17 15:19 APTT 23 SECONDS (21-34) 12/30/17 15:19 - Constitutional Appears: Non-toxic, No Acute Distress - Respiratory Exam Respiratory Exam: Clear to Ausculation Bilateral, NORMAL BREATHING PATTERN - Cardiovascular Exam Cardiovascular Exam: REGULAR RHYTHM, +S1, +S2 - GI/Abdominal Exam GI & Abdominal Exam: Soft. absent: Distended, Firm, Guarding, Rigid, Tenderness - Extremities Exam Additional comments: left lower extremity stump dressing stained with sanguionous fluid that is drying - Neurological Exam Neurological Exam: Alert, Awake Assessment and Plan - Assessment and Plan (Free Text) Assessment: 57F s/p left AKA POD1 Plan: - pain control - f/u AM labs - monitor vitals - Monitor dressing - physical therapy Further recs discuss with Dr. Den Munoz, PGY2
[2018-01-02 07:53] LABS: ALB/GLOB RATIO 0.8 (1.0-2.1); ALT/SGPT < 6 U/L (9-52); AST/SGOT 34 U/L (14-36); BLOOD UREA NITROGEN 19 mg/dL (7-17); CALCIUM 8.5 mg/dl (8.6-10.4); GFR AFRICAN-AMERICAN 13; GFR NON-AFRICAN AMERICAN 11
[2018-01-02] MEDS: (Novolog) Insulin Aspart, Recombinant 100 u/ml 10 ml vial SC SCH ×4 (08:15→22:56)
[2018-01-02 08:35] LABS: ANISOCYTOSIS MODERATE; LYMPHOCYTE 9 % (20-40); MONOCYTE 7 % (0-10); NEUTROPHIL 84 % (50-75); PLATELET ESTIMATE DECREASED (NORMAL); TOTAL CELLS COUNTED 100
[2018-01-02 08:36] LABS: OVALOCYTES SLIGHT
[2018-01-02] MEDS: Oxycodone/Acetaminophen 5/325 mg Tab PO PRN ×2 (09:32→14:07)
[2018-01-02] MEDS: Multivitamin Vitamin B Complex (Nephro-Vite) Tab PO SCH (09:35)
[2018-01-02] MEDS: Lopinavir/Ritonavir Tab PO SCH ×2 (09:36→17:46)
[2018-01-02] MEDS ORDERED: Bisacodyl 5mg EC Tab PO ONE (09:43)
[2018-01-02] MEDS: Emtricitabine-Tenofovir 200 mg-300 mg Tab PO SCH (17:46)
--- NOTE | 2018-01-02 19:22 | CP.PCM.PN ---
Subjective - Date & Time of Evaluation Date of Evaluation: 01/02/18 Time of Evaluation: 15:00 - Subjective Subjective: SEEN ON RENAL F/U PAIN ON L LEG STUMP ALL PREVIOUS EMR REVIEWED Patient was seen and examined at bedside. Patient states she has pain in her left LE s/p AKA. She also reports she is "scared about whats going on with her health". Patient says she has not had a BM yet. Patient denies chest pain, dyspnea, abdominal pain, nausea, vomiting, fevers, headaches. 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 Bolus was given, CBC was ordered, 2 units of PRBC were ordered. Right EJ was inserted. Patient's bp was rechecked and increased, PRBC were not given. Objective - Vital Signs/Intake and Output Vital Signs (last 24 hours): Temp Pulse Resp BP Pulse Ox 97.4 F L 70 20 127/77 100 01/02/18 15:15 01/02/18 17:53 01/02/18 17:53 01/02/18 17:53 01/02/18 15:15 - Medications Medications: Current Medications Acetaminophen (Tylenol 325mg Tab) 650 mg PO Q6 PRN PRN Reason: Fever >100.4 F Alprazolam (Xanax) 0.25 mg PO DAILY PRN PRN Reason: Anxiety Stop: 01/09/18 10:01 Last Admin: 01/02/18 14:07 Dose: 0.25 mg Dextrose (Dextrose 50% Inj) 0 ml IV STAT PRN; Protocol PRN Reason: Hypoglycemia Protocol Dextrose (Glutose 15) 0 gm PO ONCE PRN; Protocol PRN Reason: Hypoglycemia Protocol Docusate Sodium (Colace) 100 mg PO BID [facility] Last Admin: 01/02/18 17:46 Dose: 100 mg Emtricitabine/Tenofovir (Truvada 200 Mg-300 Mg) 1 tab PO Q48H [facility] PRN Reason: Protocol Last Admin: 01/02/18 17:46 Dose: 1 tab Glucagon (Glucagen Diagnostic Kit) 0 mg IM STAT PRN; Protocol PRN Reason: Hypoglycemia Protocol Hydromorphone HCl (Dilaudid) 0.5 mg IVP Q4H PRN PRN Reason: Pain, severe (8-10) Last Admin: 01/02/18 17:44 Dose: 0.5 mg Dextrose (Dextrose 5% In Water 1000 Ml) 1,000 mls @ 0 mls/hr IV .Q0M PRN; Protocol; Per Protocol PRN Reason: Hypoglycemia Protocol Vancomycin/Sodium Chloride (Vancomycin 1 Gm/Ns 200 Ml) 1 gm in 200 mls @ 133 mls/hr IVPB MWF [facility] PRN Reason: Protocol Stop: 01/06/18 09:01 Last Admin: 01/01/18 09:09 Dose: 133 mls/hr Piperacillin Sod/Tazobactam (Sod 2.25 gm/ Sodium Chloride) 100 mls @ 200 mls/ hr IVPB Q8H [facility] PRN Reason: Protocol Last Admin: 01/02/18 13:06 Dose: 200 mls/hr Insulin Aspart (Novolog) 0 unit SC ACHS [facility] PRN Reason: Protocol Last Admin: 01/02/18 17:43 Dose: 6 unit Isosorbide Mononitrate (Imdur) 60 mg PO DAILY [facility] Last Admin: 01/02/18 09:35 Dose: 60 mg Lopinavir/Ritonavir (Kaletra 200-50 Mg) 1 cap PO BID [facility] PRN Reason: Protocol Last Admin: 01/02/18 17:46 Dose: 1 cap Metoprolol Tartrate (Lopressor) 25 mg PO BID [facility] Last Admin: 01/02/18 09:37 Dose: 25 mg Ondansetron HCl (Zofran Inj) 4 mg IVP Q6 PRN PRN Reason: Nausea/Vomiting Oxycodone/Acetaminophen (Percocet 5/325 Mg Tab) 2 tab PO Q4H PRN PRN Reason: Pain, Mild (1-3) Stop: 01/05/18 08:25 Last Admin: 01/02/18 14:07 Dose: 2 tab Petrolatum (Desitin Original) 0 gm EXT Q8H [facility] Last Admin: 01/02/18 18:02 Dose: 1 applic Sevelamer Carbonate (Renvela) 800 mg PO TID [facility] Last Admin: 01/02/18 17:46 Dose: 800 mg Vitamin B Complex/Vit C/Folic Acid (Nephro-Carlos) 1 tab PO DAILY [facility] Last Admin: 01/02/18 09:35 Dose: 1 tab - Labs Labs: 01/02/18 07:31 01/02/18 07:31 PT 10.2 SECONDS (9.7-12.2) 12/30/17 15:19 INR 0.9 12/30/17 15:19 APTT 23 SECONDS (21-34) 12/30/17 15:19 Assessment and Plan - Assessment and Plan (Free Text) Assessment: ESRD ON HD .. TO BE C/O ANEMIA OF CKD .. H/H STABLE S/P L AKA .. HIV MMP P : C/O HD ON C/O PRESENT MEDS C/O CURRENT MANAGEMENT
--- NOTE | 2018-01-02 19:54 | PCM.RRT ---
[facility]ANK [facility]INNER Nurses Assessment - Situation Date: 01/01/18 Time SHANK SKINNER was called: 19:00 [facility]NER Responder Arrival Time:: 19:02 [facility]ANK [facility]INNER Location:: Med/Surg Room Number: 663A [facility] Reason for Call: Hypotension [facility]INNER Called By: RN - IV IV Inserted during SHANK SKINNER?: Yes - Respiratory [facility]ANK SKINNER Delivery Method: Room Air Received Nebulizer Treatments: No Was the Patient Ventilated with Bag/Mask 100% O2?: No Secretions Suctioned?: No Was the Patient Intubated?: No Was the Patient Placed on a Ventilator?: No - Medication Medications Administered During SHANK SKINNER: Lidocaine, Dilaudid 0.5mg, NS 0.9% 500ML Bolus x2 - Diagnostic Test Ordered EKG: No Chest X-Ray: No CT Scan: No - Stat Labs Ordered [facility]ANK SKINNER Stat Labs Ordered: CBC [facility]ANK SKINNER Other Labs Ordered: CMP CPR started during SHANK SKINNER?: No - Vital Signs Vital Signs: Rapid Response Vital Sign Blood Pressure 71/50 Temperature 97.1 F Oxygen Saturation 97 - Sepsis Screen Part 1 Sepsis Screen Part 1: Hypotensive - Time [facility]ANK SKINNER Ended Time SHANK SKINNER Ended: 20:10 - Vital Signs at end of SHANK SKINNER Vital Signs at end of SHANK SKINNER: Rapid Response End Vital Sign Blood Pressure 91/58 Pulse Rate 90 Respiratory Rate 16 Temperature 97.1 F O2 Sat by Pulse Oximetry 97 - Recommendations Notifications: Attending Physician, Family or Designated Caregiver - Respiratory Oxygen Delivery Method: Room Air
--- NOTE | 2018-01-02 20:00 | CP.PCM.PN ---
Subjective - Date & Time of Evaluation Date of Evaluation: 01/02/18 Time of Evaluation: 01:00 - Subjective Subjective: dictated Objective - Vital Signs/Intake and Output Vital Signs (last 24 hours): Temp Pulse Resp BP Pulse Ox 97.4 F L 70 20 127/77 100 01/02/18 15:15 01/02/18 17:53 01/02/18 17:53 01/02/18 17:53 01/02/18 15:15 - Medications Medications: Current Medications Acetaminophen (Tylenol 325mg Tab) 650 mg PO Q6 PRN PRN Reason: Fever >100.4 F Alprazolam (Xanax) 0.25 mg PO DAILY PRN PRN Reason: Anxiety Stop: 01/09/18 10:01 Last Admin: 01/02/18 14:07 Dose: 0.25 mg Dextrose (Dextrose 50% Inj) 0 ml IV STAT PRN; Protocol PRN Reason: Hypoglycemia Protocol Dextrose (Glutose 15) 0 gm PO ONCE PRN; Protocol PRN Reason: Hypoglycemia Protocol Docusate Sodium (Colace) 100 mg PO BID [facility] Last Admin: 01/02/18 17:46 Dose: 100 mg Emtricitabine/Tenofovir (Truvada 200 Mg-300 Mg) 1 tab PO Q48H [facility] PRN Reason: Protocol Last Admin: 01/02/18 17:46 Dose: 1 tab Glucagon (Glucagen Diagnostic Kit) 0 mg IM STAT PRN; Protocol PRN Reason: Hypoglycemia Protocol Hydromorphone HCl (Dilaudid) 0.5 mg IVP Q4H PRN PRN Reason: Pain, severe (8-10) Last Admin: 01/02/18 17:44 Dose: 0.5 mg Dextrose (Dextrose 5% In Water 1000 Ml) 1,000 mls @ 0 mls/hr IV .Q0M PRN; Protocol; Per Protocol PRN Reason: Hypoglycemia Protocol Vancomycin/Sodium Chloride (Vancomycin 1 Gm/Ns 200 Ml) 1 gm in 200 mls @ 133 mls/hr IVPB MWF [facility] PRN Reason: Protocol Stop: 01/06/18 09:01 Last Admin: 01/01/18 09:09 Dose: 133 mls/hr Piperacillin Sod/Tazobactam (Sod 2.25 gm/ Sodium Chloride) 100 mls @ 200 mls/ hr IVPB Q8H [facility] PRN Reason: Protocol Last Admin: 01/02/18 13:06 Dose: 200 mls/hr Insulin Aspart (Novolog) 0 unit SC ACHS [facility] PRN Reason: Protocol Last Admin: 01/02/18 17:43 Dose: 6 unit Isosorbide Mononitrate (Imdur) 60 mg PO DAILY [facility] Last Admin: 01/02/18 09:35 Dose: 60 mg Lopinavir/Ritonavir (Kaletra 200-50 Mg) 1 cap PO BID [facility] PRN Reason: Protocol Last Admin: 01/02/18 17:46 Dose: 1 cap Metoprolol Tartrate (Lopressor) 25 mg PO BID [facility] Last Admin: 01/02/18 09:37 Dose: 25 mg Ondansetron HCl (Zofran Inj) 4 mg IVP Q6 PRN PRN Reason: Nausea/Vomiting Oxycodone/Acetaminophen (Percocet 5/325 Mg Tab) 2 tab PO Q4H PRN PRN Reason: Pain, Mild (1-3) Stop: 01/05/18 08:25 Last Admin: 01/02/18 14:07 Dose: 2 tab Petrolatum (Desitin Original) 0 gm EXT Q8H [facility] Last Admin: 01/02/18 18:02 Dose: 1 applic Sevelamer Carbonate (Renvela) 800 mg PO TID [facility] Last Admin: 01/02/18 17:46 Dose: 800 mg Vitamin B Complex/Vit C/Folic Acid (Nephro-Carlos) 1 tab PO DAILY [facility] Last Admin: 01/02/18 09:35 Dose: 1 tab - Labs Labs: 01/02/18 07:31 01/02/18 07:31 PT 10.2 SECONDS (9.7-12.2) 12/30/17 15:19 INR 0.9 12/30/17 15:19 APTT 23 SECONDS (21-34) 12/30/17 15:19
--- NOTE | 2018-01-02 22:19 | CP.PCM.PN ---
Subjective - Date & Time of Evaluation Date of Evaluation: 01/02/18 Time of Evaluation: 18:10 - Subjective Subjective: Patient seen and evaluated Comfortable Denies chest pain and dyspnea Objective - Vital Signs/Intake and Output Vital Signs (last 24 hours): Temp Pulse Resp BP Pulse Ox 97.4 F L 70 20 116/77 100 01/02/18 15:15 01/02/18 17:53 01/02/18 17:53 01/02/18 21:47 01/02/18 15:15 - Medications Medications: Current Medications Acetaminophen (Tylenol 325mg Tab) 650 mg PO Q6 PRN PRN Reason: Fever >100.4 F Alprazolam (Xanax) 0.25 mg PO DAILY PRN PRN Reason: Anxiety Stop: 01/09/18 10:01 Last Admin: 01/02/18 14:07 Dose: 0.25 mg Dextrose (Dextrose 50% Inj) 0 ml IV STAT PRN; Protocol PRN Reason: Hypoglycemia Protocol Dextrose (Glutose 15) 0 gm PO ONCE PRN; Protocol PRN Reason: Hypoglycemia Protocol Docusate Sodium (Colace) 100 mg PO BID [facility] Last Admin: 01/02/18 17:46 Dose: 100 mg Emtricitabine/Tenofovir (Truvada 200 Mg-300 Mg) 1 tab PO Q48H [facility] PRN Reason: Protocol Last Admin: 01/02/18 17:46 Dose: 1 tab Glucagon (Glucagen Diagnostic Kit) 0 mg IM STAT PRN; Protocol PRN Reason: Hypoglycemia Protocol Hydromorphone HCl (Dilaudid) 0.5 mg IVP Q4H PRN PRN Reason: Pain, severe (8-10) Last Admin: 01/02/18 17:44 Dose: 0.5 mg Dextrose (Dextrose 5% In Water 1000 Ml) 1,000 mls @ 0 mls/hr IV .Q0M PRN; Protocol; Per Protocol PRN Reason: Hypoglycemia Protocol Vancomycin/Sodium Chloride (Vancomycin 1 Gm/Ns 200 Ml) 1 gm in 200 mls @ 133 mls/hr IVPB MWF [facility] PRN Reason: Protocol Stop: 01/06/18 09:01 Last Admin: 01/01/18 09:09 Dose: 133 mls/hr Piperacillin Sod/Tazobactam (Sod 2.25 gm/ Sodium Chloride) 100 mls @ 200 mls/ hr IVPB Q8H [facility] PRN Reason: Protocol Last Admin: 01/02/18 21:46 Dose: 200 mls/hr Insulin Aspart (Novolog) 0 unit SC ACHS [facility] PRN Reason: Protocol Last Admin: 01/02/18 17:43 Dose: 6 unit Isosorbide Mononitrate (Imdur) 60 mg PO DAILY [facility] Last Admin: 01/02/18 09:35 Dose: 60 mg Lopinavir/Ritonavir (Kaletra 200-50 Mg) 1 cap PO BID [facility] PRN Reason: Protocol Last Admin: 01/02/18 17:46 Dose: 1 cap Metoprolol Tartrate (Lopressor) 25 mg PO BID [facility] Last Admin: 01/02/18 21:47 Dose: 25 mg Ondansetron HCl (Zofran Inj) 4 mg IVP Q6 PRN PRN Reason: Nausea/Vomiting Oxycodone/Acetaminophen (Percocet 5/325 Mg Tab) 2 tab PO Q4H PRN PRN Reason: Pain, Mild (1-3) Stop: 01/05/18 08:25 Last Admin: 01/02/18 14:07 Dose: 2 tab Petrolatum (Desitin Original) 0 gm EXT Q8H [facility] Last Admin: 01/02/18 18:02 Dose: 1 applic Sevelamer Carbonate (Renvela) 800 mg PO TID [facility] Last Admin: 01/02/18 17:46 Dose: 800 mg Vitamin B Complex/Vit C/Folic Acid (Nephro-Carlos) 1 tab PO DAILY [facility] Last Admin: 01/02/18 09:35 Dose: 1 tab - Labs Labs: 01/02/18 07:31 01/02/18 07:31 PT 10.2 SECONDS (9.7-12.2) 12/30/17 15:19 INR 0.9 12/30/17 15:19 APTT 23 SECONDS (21-34) 12/30/17 15:19
[2018-01-03] MEDS: HYDROmorphone 0.5 mg/0.5 ml ISec IVP PRN ×5 (00:28→22:20)
[2018-01-03] MEDS: Zinc Oxide Topical 30 gm Tube EXT SCH ×3 (00:30→17:16)
--- NOTE | 2018-01-03 00:51 | PN ---
DATE: 01/02/2018 SUBJECTIVE: The patient was seen this afternoon. She was arousable, but she was and she appeared partially sedated and she is status post surgery now on the left leg, she had a BKA and she still has a catheter on the right side. She did not wanted to be examined as she was in pain, but she was groggy. PHYSICAL EXAMINATION: VITAL SIGNS: Blood pressure 131/90, , temperature 98, pulse 91. HEENT: Head was atraumatic. NECK: Supple. LUNGS: Clear and she was not in any respiratory distress. HEART: S1, S2 are regular. EXTREMITIES: I wanted to check the leg, you know the BKA, but she would not let me take up the sheet that she was covered with. LABORATORY DATA: White count was 5.9, hemoglobin 10.7, hematocrit 33.6 and platelets was 75 was low. Sodium 140, potassium 4.3, chloride 97, creatinine 4.2. ASSESSMENT AND PLAN: She has endstage renal disease and is on dialysis. 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 Plan is to continue human immunodeficiency virus medications and to continue antibiotics for wound healing of the stump and will follow. Tammy Villegas MD
[2018-01-03] MEDS: Piperacillin/Tazobact 2.25 GM in Sodium Chloride 100 ML IVPB SCH ×3 (05:46→22:23)
--- NOTE | 2018-01-03 07:05 | CP.PCM.PN ---
<Magy Riojas - Last Filed: 01/03/18 14:29> Subjective - Date & Time of Evaluation Date of Evaluation: 01/03/18 Time of Evaluation: 07:00 - Subjective Subjective: Medicine Progress Note: Patient was seen and examined at bedside during dialysis in the AM. Patient stated she had a lot of leg pain. Patient states she has not passed flatus or had a bowel movement since her surgery. Patient denies nausea, vomiting, fever or chills. Objective - Vital Signs/Intake and Output Vital Signs (last 24 hours): Temp Pulse Resp BP Pulse Ox 98.2 F 64 20 101/61 100 01/03/18 04:30 01/03/18 04:30 01/03/18 04:30 01/03/18 04:30 01/03/18 04:30 Intake and Output: 01/03/18 01/03/18 06:59 18:59 Intake Total 460 Balance 460 - Medications Medications: Current Medications Acetaminophen (Tylenol 325mg Tab) 650 mg PO Q6 PRN PRN Reason: Fever >100.4 F Alprazolam (Xanax) 0.25 mg PO DAILY PRN PRN Reason: Anxiety Stop: 01/09/18 10:01 Last Admin: 01/02/18 14:07 Dose: 0.25 mg Dextrose (Dextrose 50% Inj) 0 ml IV STAT PRN; Protocol PRN Reason: Hypoglycemia Protocol Dextrose (Glutose 15) 0 gm PO ONCE PRN; Protocol PRN Reason: Hypoglycemia Protocol Docusate Sodium (Colace) 100 mg PO BID [facility] Last Admin: 01/02/18 17:46 Dose: 100 mg Emtricitabine/Tenofovir (Truvada 200 Mg-300 Mg) 1 tab PO Q48H [facility] PRN Reason: Protocol Last Admin: 01/02/18 17:46 Dose: 1 tab Glucagon (Glucagen Diagnostic Kit) 0 mg IM STAT PRN; Protocol PRN Reason: Hypoglycemia Protocol Hydromorphone HCl (Dilaudid) 0.5 mg IVP Q4H PRN PRN Reason: Pain, severe (8-10) Last Admin: 01/03/18 05:58 Dose: 0.5 mg Dextrose (Dextrose 5% In Water 1000 Ml) 1,000 mls @ 0 mls/hr IV .Q0M PRN; Protocol; Per Protocol PRN Reason: Hypoglycemia Protocol Vancomycin/Sodium Chloride (Vancomycin 1 Gm/Ns 200 Ml) 1 gm in 200 mls @ 133 mls/hr IVPB MWF [facility] PRN Reason: Protocol Stop: 01/06/18 09:01 Last Admin: 01/01/18 09:09 Dose: 133 mls/hr Piperacillin Sod/Tazobactam (Sod 2.25 gm/ Sodium Chloride) 100 mls @ 200 mls/ hr IVPB Q8H [facility] PRN Reason: Protocol Last Admin: 01/03/18 05:46 Dose: 200 mls/hr Insulin Aspart (Novolog) 0 unit SC ACHS [facility] PRN Reason: Protocol Last Admin: 01/02/18 22:56 Dose: Not Given Isosorbide Mononitrate (Imdur) 60 mg PO DAILY [facility] Last Admin: 01/02/18 09:35 Dose: 60 mg Lopinavir/Ritonavir (Kaletra 200-50 Mg) 1 cap PO BID [facility] PRN Reason: Protocol Last Admin: 01/02/18 17:46 Dose: 1 cap Metoprolol Tartrate (Lopressor) 25 mg PO BID [facility] Last Admin: 01/02/18 21:47 Dose: 25 mg Ondansetron HCl (Zofran Inj) 4 mg IVP Q6 PRN PRN Reason: Nausea/Vomiting Oxycodone/Acetaminophen (Percocet 5/325 Mg Tab) 2 tab PO Q4H PRN PRN Reason: Pain, Mild (1-3) Stop: 01/05/18 08:25 Last Admin: 01/02/18 14:07 Dose: 2 tab Petrolatum (Desitin Original) 0 gm EXT Q8H [facility] Last Admin: 01/03/18 00:30 Dose: 1 applic Sevelamer Carbonate (Renvela) 800 mg PO TID [facility] Last Admin: 01/02/18 17:46 Dose: 800 mg Vitamin B Complex/Vit C/Folic Acid (Nephro-Carlos) 1 tab PO DAILY [facility] Last Admin: 01/02/18 09:35 Dose: 1 tab - Labs Labs: 01/02/18 07:31 01/02/18 07:31 PT 10.2 SECONDS (9.7-12.2) 12/30/17 15:19 INR 0.9 12/30/17 15:19 APTT 23 SECONDS (21-34) 12/30/17 15:19 - Constitutional Appears: In Acute Distress - Head Exam Head Exam: ATRAUMATIC, NORMAL INSPECTION - Eye Exam Eye Exam: EOMI, Normal appearance Pupil Exam: NORMAL ACCOMODATION - ENT Exam ENT Exam: Mucous Membranes Dry - Respiratory Exam Respiratory Exam: Clear to Ausculation Bilateral, NORMAL BREATHING PATTERN - Cardiovascular Exam Cardiovascular Exam: REGULAR RHYTHM, +S1, +S2 - GI/Abdominal Exam GI & Abdominal Exam: Soft, Tenderness, Hypoactive Bowel Sounds - Extremities Exam Additional comments: Right below the knee amputations and Left AKA - Neurological Exam Neurological Exam: Alert, Oriented x3 - Skin Skin Exam: Dry, Intact, Warm Additional comments: Right chest permacath; dressing - clean/dry/intact Assessment and Plan - Assessment and Plan (Free Text) Assessment: (1) Dry gangrene (left foot) S/P Left AKA Assessment & Plan: Hx of BKA S/P left AKA (on 01/01/18) * Vascular surgery consulted- Dr. Sinclair * ID consulted- Dr. Villegas. * Cardiac clearance-> Dr. Collins consulted * Amosiscmallory scheduled for 12/31/17: no stress induced ischemia; EF 45-55%. * PreOp: EKG, Chest Xray (negative), Coags * Plavix held * Blood cx: negative * Continue Zosyn 2.25g IV Q8h * Continue Vanco 1gm IV MWF * Continue pain management * Percocet 2tabs Q4 prn * Dilaudid 1mg IV Q4 prn - Patient was given one unit of PRBC 01/03/18 as H/H decreased to 7.9/23.8 (2) CHF (congestive heart failure) * Echo (12/05/17): EF 30-35% * Cardiology consulted- Dr. Collins * Amosiscmallory on 12/[address] Collins * Continue to monitor on telemetry (3) End stage renal disease on dialysis * ESRD on HD: MWF schedule * Nephrology consulted- Dr. Cao * Continue nephrovite and velphoro (4) HTN (hypertension)--> currently hypotensive * Continue home medications: Imdur 60mg PO daily and Metoprolol 25mg PO BID ( parameters placed- hold for SBP <100, HR <60) * Metoprolol has not been given due to hypotension * NS bolus 250mls/hr given on 12/31/17. * [employer] called on 01/01 for hypotension s/p dialysis and AKA. 500ml Bolus given; BP improved. Patient's dressing leaking/ blood soaked; pressure dressing applied by vice president of talent management. Transfusion not required at that time. Of note, per EMR, patient was given heparin 4,600u SC during dialysis in the afternoon, s/p AKA. * Continue to monitor (5) Diabetes * A1c (11/29/17): 5.8 * Accuchecks * ISS (will hold home diabetic medications) * Hypoglycemic protocol (6) HIV (human immunodeficiency virus infection) * Continue home medication: Truvada 1tab PO daily, Issentriss 400mg PO BID * CD4 count (12/05/17): 143 * Viral load (12/05/17): not detected * ID consulted, Dr. Villegas. (7) HLD * Lipid panel from 11/29/17: TG 116 Chol 131 LDL 49 HDL 29 (8) Constipation * Colace 100mg PO BID * Dulcolax given once * f/u Abdominal xray as patient has not passed or had a bowel movement (9) Anxiety * Xanax 0.25mg PO PRN (10) Prophylactic measure * DVT: heparin 4600u SC MWF per nephrology; Plavix held. * Full Code * Patient's son Dilip Zhong is unofficial health proxy; his phone number to contact [phone] * Pastoral care consult * PT Disposition: Patient s/p left AKA, POD#2. Possible discharge Saturday01/06/18 to [facility]. Blood work scheduled with dialysis days <Danielle Elizabeth V - Last Filed: 01/04/18 15:27> Objective - Vital Signs/Intake and Output Vital Signs (last 24 hours): Temp Pulse Resp BP Pulse Ox 98.0 F 80 20 123/72 97 01/04/18 07:45 01/04/18 07:45 01/04/18 07:45 01/04/18 10:06 01/04/18 07:45 - Medications Medications: Current Medications Acetaminophen (Tylenol 325mg Tab) 650 mg PO Q6 PRN PRN Reason: Fever >100.4 F Alprazolam (Xanax) 0.5 mg PO BID [facility] Stop: 01/11/18 14:25 Dextrose (Dextrose 50% Inj) 0 ml IV STAT PRN; Protocol PRN Reason: Hypoglycemia Protocol Dextrose (Glutose 15) 0 gm PO ONCE PRN; Protocol PRN Reason: Hypoglycemia Protocol Docusate Sodium (Colace) 100 mg PO BID [facility] Last Admin: 01/04/18 10:09 Dose: 100 mg Emtricitabine/Tenofovir (Truvada 200 Mg-300 Mg) 1 tab PO Q48H [facility] PRN Reason: Protocol Last Admin: 01/02/18 17:46 Dose: 1 tab Glucagon (Glucagen Diagnostic Kit) 0 mg IM STAT PRN; Protocol PRN Reason: Hypoglycemia Protocol Hydromorphone HCl (Dilaudid) 1 mg IVP Q4H PRN PRN Reason: Pain, severe (8-10) Last Admin: 01/04/18 14:27 Dose: 1 mg Dextrose (Dextrose 5% In Water 1000 Ml) 1,000 mls @ 0 mls/hr IV .Q0M PRN; Protocol; Per Protocol PRN Reason: Hypoglycemia Protocol Vancomycin/Sodium Chloride (Vancomycin 1 Gm/Ns 200 Ml) 1 gm in 200 mls @ 133 mls/hr IVPB MWF [facility] PRN Reason: Protocol Stop: 01/06/18 09:01 Last Admin: 01/03/18 15:18 Dose: 133 mls/hr Insulin Aspart (Novolog) 0 unit SC ACHS [facility] PRN Reason: Protocol Last Admin: 01/04/18 12:48 Dose: 1 unit Isosorbide Mononitrate (Imdur) 60 mg PO DAILY [facility] Last Admin: 01/04/18 10:09 Dose: 60 mg Lopinavir/Ritonavir (Kaletra 200-50 Mg) 1 cap PO BID [facility] PRN Reason: Protocol Last Admin: 01/04/18 10:09 Dose: 1 cap Metoprolol Tartrate (Lopressor) 25 mg PO BID [facility] Last Admin: 01/04/18 10:06 Dose: 25 mg Ondansetron HCl (Zofran Inj) 4 mg IVP Q6 PRN PRN Reason: Nausea/Vomiting Oxycodone/Acetaminophen (Percocet 5/325 Mg Tab) 2 tab PO Q4H PRN PRN Reason: Pain, Mild (1-3) Stop: 01/05/18 08:25 Last Admin: 01/04/18 08:32 Dose: 2 tab Petrolatum (Desitin Original) 0 gm EXT Q8H [facility] Last Admin: 01/04/18 10:11 Dose: 1 applic Sevelamer Carbonate (Renvela) 800 mg PO TID [facility] Last Admin: 01/04/18 14:27 Dose: 800 mg Simethicone (Mylicon Liq) 40 mg PO QID [facility] Vitamin B Complex/Vit C/Folic Acid (Nephro-Carlos) 1 tab PO DAILY [facility] Last Admin: 01/04/18 10:06 Dose: 1 tab - Labs Labs: 01/04/18 11:45 01/03/18 10:27 PT 10.2 SECONDS (9.7-12.2) 12/30/17 15:19 INR 0.9 12/30/17 15:19 APTT 23 SECONDS (21-34) 12/30/17 15:19 Attending/Attestation - Attestation I have personally seen and examined this patient.: Yes I have fully participated in the care of the patient.: Yes I have reviewed all pertinent clinical information, including history, physical exam and plan: Yes
[2018-01-03] MEDS: (Novolog) Insulin Aspart, Recombinant 100 u/ml 10 ml vial SC SCH ×4 (08:30→21:32)
--- NOTE | 2018-01-03 08:33 | CP.PCM.PN ---
Subjective - Date & Time of Evaluation Date of Evaluation: 01/03/18 Time of Evaluation: 07:00 - Subjective Subjective: SURGERY NOTE FOR DR. BRIAN 57F seen and examined at bedside. Patient resting comfortably. States pain at surgical site is improved. She is working with physical therapy. Objective - Vital Signs/Intake and Output Vital Signs (last 24 hours): Temp Pulse Resp BP Pulse Ox 97.3 F L 65 20 113/74 100 01/03/18 07:25 01/03/18 07:25 01/03/18 07:25 01/03/18 07:25 01/03/18 07:25 Intake and Output: 01/03/18 01/03/18 06:59 18:59 Intake Total 460 Balance 460 - Medications Medications: Current Medications Acetaminophen (Tylenol 325mg Tab) 650 mg PO Q6 PRN PRN Reason: Fever >100.4 F Alprazolam (Xanax) 0.25 mg PO DAILY PRN PRN Reason: Anxiety Stop: 01/09/18 10:01 Last Admin: 01/02/18 14:07 Dose: 0.25 mg Dextrose (Dextrose 50% Inj) 0 ml IV STAT PRN; Protocol PRN Reason: Hypoglycemia Protocol Dextrose (Glutose 15) 0 gm PO ONCE PRN; Protocol PRN Reason: Hypoglycemia Protocol Docusate Sodium (Colace) 100 mg PO BID [facility] Last Admin: 01/02/18 17:46 Dose: 100 mg Emtricitabine/Tenofovir (Truvada 200 Mg-300 Mg) 1 tab PO Q48H [facility] PRN Reason: Protocol Last Admin: 01/02/18 17:46 Dose: 1 tab Glucagon (Glucagen Diagnostic Kit) 0 mg IM STAT PRN; Protocol PRN Reason: Hypoglycemia Protocol Hydromorphone HCl (Dilaudid) 0.5 mg IVP Q4H PRN PRN Reason: Pain, severe (8-10) Last Admin: 01/03/18 05:58 Dose: 0.5 mg Dextrose (Dextrose 5% In Water 1000 Ml) 1,000 mls @ 0 mls/hr IV .Q0M PRN; Protocol; Per Protocol PRN Reason: Hypoglycemia Protocol Vancomycin/Sodium Chloride (Vancomycin 1 Gm/Ns 200 Ml) 1 gm in 200 mls @ 133 mls/hr IVPB MWF [facility] PRN Reason: Protocol Stop: 01/06/18 09:01 Last Admin: 01/01/18 09:09 Dose: 133 mls/hr Piperacillin Sod/Tazobactam (Sod 2.25 gm/ Sodium Chloride) 100 mls @ 200 mls/ hr IVPB Q8H [facility] PRN Reason: Protocol Last Admin: 01/03/18 05:46 Dose: 200 mls/hr Insulin Aspart (Novolog) 0 unit SC ACHS [facility] PRN Reason: Protocol Last Admin: 01/02/18 22:56 Dose: Not Given Isosorbide Mononitrate (Imdur) 60 mg PO DAILY [facility] Last Admin: 01/02/18 09:35 Dose: 60 mg Lopinavir/Ritonavir (Kaletra 200-50 Mg) 1 cap PO BID [facility] PRN Reason: Protocol Last Admin: 01/02/18 17:46 Dose: 1 cap Metoprolol Tartrate (Lopressor) 25 mg PO BID [facility] Last Admin: 01/02/18 21:47 Dose: 25 mg Ondansetron HCl (Zofran Inj) 4 mg IVP Q6 PRN PRN Reason: Nausea/Vomiting Oxycodone/Acetaminophen (Percocet 5/325 Mg Tab) 2 tab PO Q4H PRN PRN Reason: Pain, Mild (1-3) Stop: 01/05/18 08:25 Last Admin: 01/02/18 14:07 Dose: 2 tab Petrolatum (Desitin Original) 0 gm EXT Q8H [facility] Last Admin: 01/03/18 00:30 Dose: 1 applic Sevelamer Carbonate (Renvela) 800 mg PO TID [facility] Last Admin: 01/02/18 17:46 Dose: 800 mg Vitamin B Complex/Vit C/Folic Acid (Nephro-Carlos) 1 tab PO DAILY [facility] Last Admin: 01/02/18 09:35 Dose: 1 tab - Labs Labs: 01/02/18 07:31 01/02/18 07:31 PT 10.2 SECONDS (9.7-12.2) 12/30/17 15:19 INR 0.9 12/30/17 15:19 APTT 23 SECONDS (21-34) 12/30/17 15:19 - Constitutional Appears: Non-toxic, No Acute Distress - Respiratory Exam Respiratory Exam: Clear to Ausculation Bilateral, NORMAL BREATHING PATTERN - Cardiovascular Exam Cardiovascular Exam: REGULAR RHYTHM, +S1, +S2 - GI/Abdominal Exam GI & Abdominal Exam: Soft. absent: Distended, Firm, Guarding, Rigid, Tenderness , Rebound - Back Exam Additional comments: left leg site of AKA dressing intact no further signs of active bleeding JACKY wrap in place - Neurological Exam Neurological Exam: Alert, Awake - Skin Skin Exam: Dry, Intact, Normal Color, Warm Assessment and Plan - Assessment and Plan (Free Text) Assessment: 57F s/p left AKA Plan: - Pain control - F/u H&H - Remove JACKY pending H&H - Continue physical therapy Further recs discuss with Dr Yahir Munoz, PGY2
[2018-01-03 11:01] LABS: ALB/GLOB RATIO 0.9 (1.0-2.1); ALBUMIN 3.5 g/dL (3.5-5.0); CALCIUM 7.9 mg/dl (8.6-10.4)
[2018-01-03] MEDS ORDERED: HYDROmorphone 0.5 mg/0.5 ml ISec IVP STA (11:40)
[2018-01-03 11:53] LABS: BASO % 0.5 % (0.0-2.0); EOS # 0.1 K/uL (0.0-0.7); HEMOGLOBIN 7.9 g/dL (11.0-16.0); LYMPH # 0.5 K/uL (1.0-4.3); LYMPH % 7.8 % (20.0-40.0); MEAN CELL VOLUME 101.8 fL (81.0-99.0); MEAN CORPUSCULAR HEMOGLOBIN 33.7 pg (27.0-31.0); MEAN CORPUSCULAR HGB CONC 33.1 g/dL (33.0-37.0); MONO # 0.3 K/uL (0.0-0.8); MONO % 4.6 % (0.0-10.0); NEUT # 5.4 K/uL (1.8-7.0); NEUT % 86.1 % (50.0-75.0); RBC 2.34 Mil/uL (3.80-5.20); RED CELL DISTRIBUTION WIDTH 20.5 % (11.5-14.5); WHITE BLOOD COUNT 6.2 K/uL (4.8-10.8)
[2018-01-03 11:57] LABS: PLATELET COUNT 117 K/uL (130-400)
[2018-01-03 12:14] LABS: ANISOCYTOSIS MODERATE; BASOPHIL 1 % (0-2); EOSINOPHIL 1 % (0-4); LYMPHOCYTE 8 % (20-40); MONOCYTE 3 % (0-10); NEUTROPHIL 87 % (50-75); PLATELET ESTIMATE SLIGHTLY DECREASED (NORMAL); TOTAL CELLS COUNTED 100
[2018-01-03 12:15] LABS: OVALOCYTES SLIGHT
--- NOTE | 2018-01-03 12:38 | CP.PCM.CON ---
History of Present Illness - History of Present Illness History of Present Illness: 57 year old female with a history of DM, HTN, HIV, HL, ESRD on HD, PAD s/p right BKA, admitted with left gangrenous foot s/p left AKA with anemia and thrombocytopenia. The patient denies having blood problems in the past. She has mild pain related to her recent left LE amputation. Review of her blood work shows she was admitted with a normal platelet count which has nadired at 75 ,000. Past medical history: DM, HTN, HL, HIV, PAD, ESRD on HD Past surgical hisotry: left AKA, right BKA Family history: Denies hematologic and oncologic problems Social history: Denies tobacco, alcohol, and illicit drug use Allergies: NKA Review of systems: All remaining review of systems including HEENT, cardiovascular, respiratory, gastrointestinal, genitourinary, musculoskeletal, dermatologic, neurologic, and psychiatric are negative unless mentioned in the HPI. Past Patient History - Infectious Disease Hx of Infectious Diseases: None - Past Medical History & Family History Past Medical History?: Yes - Past Social History Smoking Status: Never Smoked - CARDIAC Hx Congestive Heart Failure: Yes Hx Hypertension: Yes - PULMONARY Hx Respiratory Disorders: No - NEUROLOGICAL Hx Dementia: Yes - HEENT Hx HEENT Problems: Yes (wears glasses) Hx Glaucoma: Yes - RENAL Date of Last Dialysis Treatment: 12/30/17 - ENDOCRINE/METABOLIC Hx Diabetes Mellitus Type 2: Yes - HEMATOLOGICAL/ONCOLOGICAL Hx Human Immunodeficiency Virus (HIV): Yes - INTEGUMENTARY Hx Dermatological Problems: No - MUSCULOSKELETAL/RHEUMATOLOGICAL Hx Falls: Yes - GASTROINTESTINAL Hx Gastrointestinal Disorders: No - GENITOURINARY/GYNECOLOGICAL Hx Genitourinary Disorders: Yes Other/Comment: oliguria, on hemodialysis MWF - PSYCHIATRIC Hx Substance Use: No - SURGICAL HISTORY Hx Amputation: Yes (Right BKA) Other/Comment: vascular sx LLE - ANESTHESIA Hx Anesthesia: Yes Hx Anesthesia Reactions: No Hx Malignant Hyperthermia: No Meds Allergies/Adverse Reactions: Allergies Allergy/AdvReac Type Severity Reaction Status Date / Time No Known Allergies Allergy Verified 12/30/17 13:49 - Medications Medications: Current Medications Acetaminophen (Tylenol 325mg Tab) 650 mg PO Q6 PRN PRN Reason: Fever >100.4 F Alprazolam (Xanax) 0.25 mg PO DAILY PRN PRN Reason: Anxiety Stop: 01/09/18 10:01 Last Admin: 01/02/18 14:07 Dose: 0.25 mg Dextrose (Dextrose 50% Inj) 0 ml IV STAT PRN; Protocol PRN Reason: Hypoglycemia Protocol Dextrose (Glutose 15) 0 gm PO ONCE PRN; Protocol PRN Reason: Hypoglycemia Protocol Docusate Sodium (Colace) 100 mg PO BID [facility] Last Admin: 01/02/18 17:46 Dose: 100 mg Emtricitabine/Tenofovir (Truvada 200 Mg-300 Mg) 1 tab PO Q48H [facility] PRN Reason: Protocol Last Admin: 01/02/18 17:46 Dose: 1 tab Glucagon (Glucagen Diagnostic Kit) 0 mg IM STAT PRN; Protocol PRN Reason: Hypoglycemia Protocol Hydromorphone HCl (Dilaudid) 1 mg IVP Q4H PRN PRN Reason: Pain, severe (8-10) Dextrose (Dextrose 5% In Water 1000 Ml) 1,000 mls @ 0 mls/hr IV .Q0M PRN; Protocol; Per Protocol PRN Reason: Hypoglycemia Protocol Vancomycin/Sodium Chloride (Vancomycin 1 Gm/Ns 200 Ml) 1 gm in 200 mls @ 133 mls/hr IVPB MWF [facility] PRN Reason: Protocol Stop: 01/06/18 09:01 Last Admin: 01/01/18 09:09 Dose: 133 mls/hr Piperacillin Sod/Tazobactam (Sod 2.25 gm/ Sodium Chloride) 100 mls @ 200 mls/ hr IVPB Q8H [facility] PRN Reason: Protocol Last Admin: 01/03/18 05:46 Dose: 200 mls/hr Insulin Aspart (Novolog) 0 unit SC ACHS [facility] PRN Reason: Protocol Last Admin: 01/03/18 08:30 Dose: 1 unit Isosorbide Mononitrate (Imdur) 60 mg PO DAILY [facility] Last Admin: 01/02/18 09:35 Dose: 60 mg Lopinavir/Ritonavir (Kaletra 200-50 Mg) 1 cap PO BID [facility] PRN Reason: Protocol Last Admin: 01/02/18 17:46 Dose: 1 cap Metoprolol Tartrate (Lopressor) 25 mg PO BID [facility] Last Admin: 01/02/18 21:47 Dose: 25 mg Ondansetron HCl (Zofran Inj) 4 mg IVP Q6 PRN PRN Reason: Nausea/Vomiting Oxycodone/Acetaminophen (Percocet 5/325 Mg Tab) 2 tab PO Q4H PRN PRN Reason: Pain, Mild (1-3) Stop: 01/05/18 08:25 Last Admin: 01/02/18 14:07 Dose: 2 tab Petrolatum (Desitin Original) 0 gm EXT Q8H [facility] Last Admin: 01/03/18 08:46 Dose: 1 applic Sevelamer Carbonate (Renvela) 800 mg PO TID [facility] Last Admin: 01/02/18 17:46 Dose: 800 mg Vitamin B Complex/Vit C/Folic Acid (Nephro-Carlos) 1 tab PO DAILY [facility] Last Admin: 01/02/18 09:35 Dose: 1 tab Physical Exam - Head Exam Head Exam: ATRAUMATIC - Eye Exam Eye Exam: Normal appearance - ENT Exam ENT Exam: Mucous Membranes Dry - Respiratory Exam Respiratory Exam: NORMAL BREATHING PATTERN - Cardiovascular Exam Cardiovascular Exam: +S1, +S2 - Extremities Exam Additional comments: left stump dressing Results - Vital Signs Recent Vital Signs: Last Vital Signs Temp 97.4 F L 01/03/18 12:30 Pulse 64 01/03/18 12:30 Resp 18 01/03/18 12:30 BP 108/88 01/03/18 12:30 Pulse Ox 96 01/03/18 11:00 - Labs Result Diagrams: 01/03/18 11:50 01/03/18 10:27 Labs: Laboratory Results - last 24 hr 01/02/18 01/02/18 01/02/18 07:31 16:36 21:58 WBC RBC Hgb Hct MCV MCH MCHC RDW Plt Count MPV Neut % (Auto) Lymph % (Auto) [place] % (Auto) Eos % (Auto) Baso % (Auto) Neut # (Auto) Lymph # (Auto) [place] # (Auto) Eos # (Auto) Baso # (Auto) Neutrophils % (Manual) Lymphocytes % (Manual) Monocytes % (Manual) Eosinophils % (Manual) Basophils % (Manual) Platelet Estimate Anisocytosis (manual) Macrocytosis (manual) Ovalocytes Sodium Potassium Chloride Carbon Dioxide Anion Gap BUN Creatinine Est GFR ( Amer) Est GFR (Non-Af Amer) POC Glucose (mg/dL) > 500 H* 446 H* Random Glucose Calcium Phosphorus Magnesium Total Bilirubin AST ALT Alkaline Phosphatase Total Protein Albumin Globulin Albumin/Globulin Ratio Blood Type B POSITIVE Antibody Screen Negative Crossmatch See Detail 01/02/18 01/02/18 01/03/18 21:59 22:55 01:56 WBC RBC Hgb Hct MCV MCH MCHC RDW Plt Count MPV Neut % (Auto) Lymph % (Auto) [place] % (Auto) Eos % (Auto) Baso % (Auto) Neut # (Auto) Lymph # (Auto) [place] # (Auto) Eos # (Auto) Baso # (Auto) Neutrophils % (Manual) Lymphocytes % (Manual) Monocytes % (Manual) Eosinophils % (Manual) Basophils % (Manual) Platelet Estimate Anisocytosis (manual) Macrocytosis (manual) Ovalocytes Sodium Potassium Chloride Carbon Dioxide Anion Gap BUN Creatinine Est GFR ( Amer) Est GFR (Non-Af Amer) POC Glucose (mg/dL) 152 H 170 H 166 H Random Glucose Calcium Phosphorus Magnesium Total Bilirubin AST ALT Alkaline Phosphatase Total Protein Albumin Globulin Albumin/Globulin Ratio Blood Type Antibody Screen Crossmatch 01/03/18 01/03/18 01/03/18 06:29 10:27 11:50 WBC 6.2 RBC 2.34 L Hgb 7.9 L D Hct 23.8 L MCV 101.8 H D MCH 33.7 H MCHC 33.1 RDW 20.5 H Plt Count 117 L D MPV 9.0 Neut % (Auto) 86.1 H Lymph % (Auto) 7.8 L [place] % (Auto) 4.6 Eos % (Auto) 1.0 Baso % (Auto) 0.5 Neut # (Auto) 5.4 Lymph # (Auto) 0.5 L [place] # (Auto) 0.3 Eos # (Auto) 0.1 Baso # (Auto) 0.0 Neutrophils % (Manual) 87 H Lymphocytes % (Manual) 8 L Monocytes % (Manual) 3 Eosinophils % (Manual) 1 Basophils % (Manual) 1 Platelet Estimate Slightly decreased L Anisocytosis (manual) Moderate Macrocytosis (manual) Slight Ovalocytes Slight Sodium 134 Potassium 4.1 Chloride 94 L Carbon Dioxide 27 Anion Gap 17 BUN 27 H Creatinine 5.7 H Est GFR ( Amer) 9 Est GFR (Non-Af Amer) 8 POC Glucose (mg/dL) 187 H Random Glucose 202 H Calcium 7.9 L Phosphorus 5.8 H Magnesium 2.0 Total Bilirubin 0.2 AST 38 H ALT 8 L D Alkaline Phosphatase 162 H D Total Protein 7.5 Albumin 3.5 Globulin 4.0 H Albumin/Globulin Ratio 0.9 L Blood Type Antibody Screen Crossmatch 01/03/18 12:00 WBC RBC Hgb Hct MCV MCH MCHC RDW Plt Count MPV Neut % (Auto) Lymph % (Auto) [place] % (Auto) Eos % (Auto) Baso % (Auto) Neut # (Auto) Lymph # (Auto) [place] # (Auto) Eos # (Auto) Baso # (Auto) Neutrophils % (Manual) Lymphocytes % (Manual) Monocytes % (Manual) Eosinophils % (Manual) Basophils % (Manual) Platelet Estimate Anisocytosis (manual) Macrocytosis (manual) Ovalocytes Sodium Potassium Chloride Carbon Dioxide Anion Gap BUN Creatinine Est GFR ( Amer) Est GFR (Non-Af Amer) POC Glucose (mg/dL) 140 H Random Glucose Calcium Phosphorus Magnesium Total Bilirubin AST ALT Alkaline Phosphatase Total Protein Albumin Globulin Albumin/Globulin Ratio Blood Type Antibody Screen Crossmatch Assessment & Plan (1) Thrombocytopenia Assessment and Plan: suspect consumption from recent surgery agree with ruling out HIT; heparin Ab and serotonin release assay sent hold heparin/lovenox until above resulted Status: Acute (2) Anemia Assessment and Plan: anemia of CKD, chronic disease, and recent surgical blood loss transfusion support PRN erythropoietin supplementation per renal Thank you for this interesting consult. Status: Acute
[2018-01-03] MEDS: Multivitamin Vitamin B Complex (Nephro-Vite) Tab PO SCH (14:19)
[2018-01-03] MEDS: Lopinavir/Ritonavir Tab PO SCH ×2 (14:19→17:15)
[2018-01-03] MEDS: Vancomycin 1 gm/NS 200 ml 1 GM/200 ML BAG IVPB SCH (15:18)
--- NOTE | 2018-01-03 15:59 | CP.PCM.PN ---
Subjective - Date & Time of Evaluation Date of Evaluation: 01/03/18 Time of Evaluation: 03:30 - Subjective Subjective: dictated Objective - Vital Signs/Intake and Output Vital Signs (last 24 hours): Temp Pulse Resp BP Pulse Ox 97.0 F L 61 20 110/71 98 01/03/18 14:17 01/03/18 14:17 01/03/18 14:17 01/03/18 14:17 01/03/18 14:17 Intake and Output: 01/03/18 01/03/18 06:59 18:59 Intake Total 460 325 Balance 460 325 - Medications Medications: Current Medications Acetaminophen (Tylenol 325mg Tab) 650 mg PO Q6 PRN PRN Reason: Fever >100.4 F Alprazolam (Xanax) 0.25 mg PO DAILY PRN PRN Reason: Anxiety Stop: 01/09/18 10:01 Last Admin: 01/02/18 14:07 Dose: 0.25 mg Dextrose (Dextrose 50% Inj) 0 ml IV STAT PRN; Protocol PRN Reason: Hypoglycemia Protocol Dextrose (Glutose 15) 0 gm PO ONCE PRN; Protocol PRN Reason: Hypoglycemia Protocol Docusate Sodium (Colace) 100 mg PO BID [facility] Last Admin: 01/03/18 11:00 Dose: Not Given Emtricitabine/Tenofovir (Truvada 200 Mg-300 Mg) 1 tab PO Q48H [facility] PRN Reason: Protocol Last Admin: 01/02/18 17:46 Dose: 1 tab Glucagon (Glucagen Diagnostic Kit) 0 mg IM STAT PRN; Protocol PRN Reason: Hypoglycemia Protocol Hydromorphone HCl (Dilaudid) 1 mg IVP Q4H PRN PRN Reason: Pain, severe (8-10) Dextrose (Dextrose 5% In Water 1000 Ml) 1,000 mls @ 0 mls/hr IV .Q0M PRN; Protocol; Per Protocol PRN Reason: Hypoglycemia Protocol Vancomycin/Sodium Chloride (Vancomycin 1 Gm/Ns 200 Ml) 1 gm in 200 mls @ 133 mls/hr IVPB MWF [facility] PRN Reason: Protocol Stop: 01/06/18 09:01 Last Admin: 01/03/18 15:18 Dose: 133 mls/hr Piperacillin Sod/Tazobactam (Sod 2.25 gm/ Sodium Chloride) 100 mls @ 200 mls/ hr IVPB Q8H [facility] PRN Reason: Protocol Last Admin: 01/03/18 14:18 Dose: 200 mls/hr Insulin Aspart (Novolog) 0 unit SC ACHS [facility] PRN Reason: Protocol Last Admin: 01/03/18 12:30 Dose: Not Given Isosorbide Mononitrate (Imdur) 60 mg PO DAILY [facility] Last Admin: 01/03/18 14:19 Dose: 60 mg Lopinavir/Ritonavir (Kaletra 200-50 Mg) 1 cap PO BID [facility] PRN Reason: Protocol Last Admin: 01/03/18 14:19 Dose: 1 cap Metoprolol Tartrate (Lopressor) 25 mg PO BID [facility] Last Admin: 01/03/18 11:00 Dose: Not Given Ondansetron HCl (Zofran Inj) 4 mg IVP Q6 PRN PRN Reason: Nausea/Vomiting Oxycodone/Acetaminophen (Percocet 5/325 Mg Tab) 2 tab PO Q4H PRN PRN Reason: Pain, Mild (1-3) Stop: 01/05/18 08:25 Last Admin: 01/02/18 14:07 Dose: 2 tab Petrolatum (Desitin Original) 0 gm EXT Q8H [facility] Last Admin: 01/03/18 08:46 Dose: 1 applic Sevelamer Carbonate (Renvela) 800 mg PO TID [facility] Last Admin: 01/03/18 14:19 Dose: 800 mg Vitamin B Complex/Vit C/Folic Acid (Nephro-Carlos) 1 tab PO DAILY [facility] Last Admin: 01/03/18 14:19 Dose: 1 tab - Labs Labs: 01/03/18 11:50 01/03/18 10:27 PT 10.2 SECONDS (9.7-12.2) 12/30/17 15:19 INR 0.9 12/30/17 15:19 APTT 23 SECONDS (21-34) 12/30/17 15:19
--- NOTE | 2018-01-03 16:50 | RAD ---
HISTORY: r/o obstruction COMPARISON: CT angiography of the abdomen, pelvis and lower extremities dated 11/28/2017 FINDINGS: BOWEL: Nonspecific bowel gas pattern with prominent bowel loops. BONES: Normal. OTHER FINDINGS: Right upper quadrant surgical clips. IMPRESSION: Nonspecific bowel gas pattern with prominent bowel loops. CT scan can be obtained for further evaluation as clinically warranted.
--- NOTE | 2018-01-04 00:20 | PN ---
DATE: 01/03/2018 SUBJECTIVE: The patient is now in a single room because she was shouting yesterday, and she also has HIV disease. She is status post right BKA. She just now had a left BKA. She is having thrombocytopenia, was also seen by Dr. Shipley. She had a dialysis today. Her mood changes very fast, but today she was a little bit better. PHYSICAL EXAMINATION: VITAL SIGNS: T-max is 97.4, pulse 85, blood pressure 99/63, respirations are 20. HEENT: Head is atraumatic. She wears glasses. NECK: Supple. Right side dialysis catheter present. LUNGS: Clear. No crackles or rales present. HEART: S1 and S2 are regular. ABDOMEN: Soft, flabby, nontender. EXTREMITIES: She did not allow me to see the left arm. Right BKA is unremarkable. LABORATORY DATA: Labs are noted. White count is 6.2, hemoglobin 7.9, hematocrit is 23.8, today the platelets are 117, so they are better than before, which was 75 yesterday. BUN is 27, creatinine is 5.7. She is a dialysis patient. Her alk phos is 162. She has had this chronically infected gangrenous foot. Blood cultures have been negative. MEDICATIONS: She remains on vancomycin, MWF, now which will help her with wound healing, to give it for next 2 weeks, and we will follow. IMPRESSION: She underwent left below-knee amputation for infected gangrenous foot and has peripheral vascular disease, human immunodeficiency virus disease, end-stage renal disease. PLAN: To continue with vancomycin at this time. Follow up with the vascular surgeon, and we will wait for his recommendations. Tammy Villegas MD
[2018-01-04] MEDS: Zinc Oxide Topical 30 gm Tube EXT SCH ×3 (00:41→16:10)
--- NOTE | 2018-01-04 01:18 | CP.PCM.PN ---
<Tara Rincon - Last Filed: 01/04/18 05:46> Subjective - Date & Time of Evaluation Date of Evaluation: 01/04/18 Time of Evaluation: :18 - Subjective Subjective: Medicine progress note for Dr. Elizabeth Patient was seen and examined at bedside. Patient states she still has pain in her left LE s/p AKA. Patient denies chest pain, dyspnea, abdominal pain, nausea , vomiting, fevers, headaches. No acute events overnight. Objective - Vital Signs/Intake and Output Vital Signs (last 24 hours): Temp Pulse Resp BP Pulse Ox 98.4 F 81 20 123/77 97 01/03/18 23:21 01/03/18 23:21 01/03/18 23:21 01/03/18 23:21 01/03/18 23:21 Intake and Output: 01/03/18 01/04/18 18:59 06:59 Intake Total 625 Balance 625 - Medications Medications: Current Medications Acetaminophen (Tylenol 325mg Tab) 650 mg PO Q6 PRN PRN Reason: Fever >100.4 F Alprazolam (Xanax) 0.25 mg PO DAILY PRN PRN Reason: Anxiety Stop: 01/09/18 10:01 Last Admin: 01/03/18 17:15 Dose: 0.25 mg Dextrose (Dextrose 50% Inj) 0 ml IV STAT PRN; Protocol PRN Reason: Hypoglycemia Protocol Dextrose (Glutose 15) 0 gm PO ONCE PRN; Protocol PRN Reason: Hypoglycemia Protocol Docusate Sodium (Colace) 100 mg PO BID [facility] Last Admin: 01/03/18 17:15 Dose: 100 mg Emtricitabine/Tenofovir (Truvada 200 Mg-300 Mg) 1 tab PO Q48H [facility] PRN Reason: Protocol Last Admin: 01/02/18 17:46 Dose: 1 tab Glucagon (Glucagen Diagnostic Kit) 0 mg IM STAT PRN; Protocol PRN Reason: Hypoglycemia Protocol Hydromorphone HCl (Dilaudid) 1 mg IVP Q4H PRN PRN Reason: Pain, severe (8-10) Last Admin: 01/03/18 22:20 Dose: 1 mg Dextrose (Dextrose 5% In Water 1000 Ml) 1,000 mls @ 0 mls/hr IV .Q0M PRN; Protocol; Per Protocol PRN Reason: Hypoglycemia Protocol Vancomycin/Sodium Chloride (Vancomycin 1 Gm/Ns 200 Ml) 1 gm in 200 mls @ 133 mls/hr IVPB MWF [facility] PRN Reason: Protocol Stop: 01/06/18 09:01 Last Admin: 01/03/18 15:18 Dose: 133 mls/hr Piperacillin Sod/Tazobactam (Sod 2.25 gm/ Sodium Chloride) 100 mls @ 200 mls/ hr IVPB Q8H [facility] PRN Reason: Protocol Last Admin: 01/03/18 22:23 Dose: 200 mls/hr Insulin Aspart (Novolog) 0 unit SC ACHS [facility] PRN Reason: Protocol Last Admin: 01/03/18 21:32 Dose: Not Given Isosorbide Mononitrate (Imdur) 60 mg PO DAILY [facility] Last Admin: 01/03/18 14:19 Dose: 60 mg Lopinavir/Ritonavir (Kaletra 200-50 Mg) 1 cap PO BID [facility] PRN Reason: Protocol Last Admin: 01/03/18 17:15 Dose: 1 cap Metoprolol Tartrate (Lopressor) 25 mg PO BID [facility] Last Admin: 01/03/18 17:24 Dose: Not Given Ondansetron HCl (Zofran Inj) 4 mg IVP Q6 PRN PRN Reason: Nausea/Vomiting Oxycodone/Acetaminophen (Percocet 5/325 Mg Tab) 2 tab PO Q4H PRN PRN Reason: Pain, Mild (1-3) Stop: 01/05/18 08:25 Last Admin: 01/02/18 14:07 Dose: 2 tab Petrolatum (Desitin Original) 0 gm EXT Q8H [facility] Last Admin: 01/04/18 00:41 Dose: 1 applic Sevelamer Carbonate (Renvela) 800 mg PO TID [facility] Last Admin: 01/03/18 17:15 Dose: 800 mg Vitamin B Complex/Vit C/Folic Acid (Nephro-Carlos) 1 tab PO DAILY [facility] Last Admin: 01/03/18 14:19 Dose: 1 tab - Labs Labs: 01/03/18 11:50 01/03/18 10:27 PT 10.2 SECONDS (9.7-12.2) 12/30/17 15:19 INR 0.9 12/30/17 15:19 APTT 23 SECONDS (21-34) 12/30/17 15:19 - Additional Findings Additional findings: - Constitutional Appears: Non-toxic, Older Than Stated Age, Chronically Ill - Head Exam Head Exam: ATRAUMATIC - Eye Exam Eye Exam: absent: PERRL (left eye white, glaucoma, blind in left eye, right eye EOMI ) - ENT Exam ENT Exam: Mucous Membranes Moist - Neck Exam Neck exam: Positive for: Full Rom, Right EJ. Negative for: Lymphadenopathy - Respiratory Exam Respiratory Exam: Clear to Auscultation Bilateral, NORMAL BREATHING PATTERN. absent: Rales, Rhonchi, Wheezes - Cardiovascular Exam Cardiovascular Exam: REGULAR RHYTHM, +S1, +S2 - GI/Abdominal Exam GI & Abdominal Exam: Normal Bowel Sounds, Soft. absent: Tenderness - Extremities Exam Extremities exam: Right BKA, well healed scar, no ulcers noted; LLE- AKA, dress - dry, intact. - Back Exam Back exam: NORMAL INSPECTION. absent: CVA tenderness (L), CVA tenderness (R) - Neurological Exam Neurological exam: Alert, Oriented x3 - Psychiatric Exam Psychiatric exam: Normal Affect, Normal Mood - Skin Skin Exam: Warm, dry; Right chest permacath Assessment and Plan (1) Dry gangrene Status: Acute (2) CHF (congestive heart failure) Status: Acute (3) End stage renal disease on dialysis Status: Chronic (4) HTN (hypertension) Status: Chronic (5) Diabetes Status: Acute (6) HIV (human immunodeficiency virus infection) Status: Acute (7) Prophylactic measure Status: Acute - Assessment and Plan (Free Text) Plan: (1) Dry gangrene (left foot) S/P Left AKA Assessment & Plan: Hx of BKA S/P left AKA (on 01/01/18) * Vascular surgery consulted- Dr. Sinclair * ID consulted- Dr. Villegas. * Cardiac clearance-> Dr. Collins consulted * Lexiscan scheduled for 12/31/17: no stress induced ischemia; EF 45-55%. * PreOp: EKG, Chest Xray (negative), Coags * Plavix held * Blood cx: negative * Continue Zosyn 2.25g IV Q8h * Continue Vanco 1gm IV MWF * Continue pain management * Percocet 2tabs Q4 prn * Dilaudid 1mg IV Q4 prn - Patient was given one unit of PRBC 01/03/18 as H/H decreased to 7.9/23.8 (2) CHF (congestive heart failure) * Echo (12/05/17): EF 30-35% * Cardiology consulted- Dr. Collins * Alisson on 12/[address] Collins * Continue to monitor on telemetry (3) End stage renal disease on dialysis * ESRD on HD: MWF schedule * Nephrology consulted- Dr. Cao * Continue nephrovite and velphoro (4) HTN (hypertension)--> currently hypotensive * Continue home medications: Imdur 60mg PO daily and Metoprolol 25mg PO BID ( parameters placed- hold for SBP <100, HR <60) * Metoprolol has not been given due to hypotension * NS bolus 250mls/hr given on 12/31/17. * [employer] called on 01/01 for hypotension s/p dialysis and AKA. 500ml Bolus given; BP improved. Patient's dressing leaking/ blood soaked; pressure dressing applied by surgical corsetier. Transfusion not required at that time. Of note, per EMR, patient was given heparin 4,600u SC during dialysis in the afternoon, s/p AKA. * Continue to monitor (5) Diabetes * A1c (11/29/17): 5.8 * Accuchecks * ISS (will hold home diabetic medications) * Hypoglycemic protocol (6) HIV (human immunodeficiency virus infection) * Continue home medication: Truvada 1tab PO daily, Issentriss 400mg PO BID * CD4 count (12/05/17): 143 * Viral load (12/05/17): not detected * ID consulted, Dr. Villegas. (7) HLD * Lipid panel from 11/29/17: TG 116 Chol 131 LDL 49 HDL 29 (8) Constipation * Colace 100mg PO BID * Dulcolax given once * Abdominal xray: nonspecific bowel gas pattern with prominent bowel loops (9) Anxiety * Xanax 0.25mg PO PRN (10) Thrombocytopenia * Heparin induced Ab: f/u results * Serotonin relesae assay: f/u results * Hold chemical anticoagulation; Heparin 4600u MWF discontinued. * Hem/Onc consulted, Dr. Shipley. Help appreciated. (11) Prophylactic measure * DVT: heparin 4600u SC MWF per nephrology; Plavix held. * Full Code * Patient's son Dilip Zhong is unofficial health proxy; his phone number to contact [phone] * Pastoral care consult * PT Disposition: Patient s/p left AKA. Possible discharge Saturday01/06/18 to [facility]. Blood work scheduled with dialysis days <Danielle Elizabeth V - Last Filed: 01/04/18 15:16> Objective - Vital Signs/Intake and Output Vital Signs (last 24 hours): Temp Pulse Resp BP Pulse Ox 98.0 F 80 20 123/72 97 01/04/18 07:45 01/04/18 07:45 01/04/18 07:45 01/04/18 10:06 01/04/18 07:45 - Medications Medications: Current Medications Acetaminophen (Tylenol 325mg Tab) 650 mg PO Q6 PRN PRN Reason: Fever >100.4 F Alprazolam (Xanax) 0.5 mg PO BID [facility] Stop: 01/11/18 14:25 Dextrose (Dextrose 50% Inj) 0 ml IV STAT PRN; Protocol PRN Reason: Hypoglycemia Protocol Dextrose (Glutose 15) 0 gm PO ONCE PRN; Protocol PRN Reason: Hypoglycemia Protocol Docusate Sodium (Colace) 100 mg PO BID [facility] Last Admin: 01/04/18 10:09 Dose: 100 mg Emtricitabine/Tenofovir (Truvada 200 Mg-300 Mg) 1 tab PO Q48H [facility] PRN Reason: Protocol Last Admin: 01/02/18 17:46 Dose: 1 tab Glucagon (Glucagen Diagnostic Kit) 0 mg IM STAT PRN; Protocol PRN Reason: Hypoglycemia Protocol Hydromorphone HCl (Dilaudid) 1 mg IVP Q4H PRN PRN Reason: Pain, severe (8-10) Last Admin: 01/04/18 14:27 Dose: 1 mg Dextrose (Dextrose 5% In Water 1000 Ml) 1,000 mls @ 0 mls/hr IV .Q0M PRN; Protocol; Per Protocol PRN Reason: Hypoglycemia Protocol Vancomycin/Sodium Chloride (Vancomycin 1 Gm/Ns 200 Ml) 1 gm in 200 mls @ 133 mls/hr IVPB MWF [facility] PRN Reason: Protocol Stop: 01/06/18 09:01 Last Admin: 01/03/18 15:18 Dose: 133 mls/hr Piperacillin Sod/Tazobactam (Sod 2.25 gm/ Sodium Chloride) 100 mls @ 200 mls/ hr IVPB Q8H [facility] PRN Reason: Protocol Last Admin: 01/04/18 14:27 Dose: 200 mls/hr Insulin Aspart (Novolog) 0 unit SC ACHS [facility] PRN Reason: Protocol Last Admin: 01/04/18 12:48 Dose: 1 unit Isosorbide Mononitrate (Imdur) 60 mg PO DAILY [facility] Last Admin: 01/04/18 10:09 Dose: 60 mg Lopinavir/Ritonavir (Kaletra 200-50 Mg) 1 cap PO BID [facility] PRN Reason: Protocol Last Admin: 01/04/18 10:09 Dose: 1 cap Metoprolol Tartrate (Lopressor) 25 mg PO BID [facility] Last Admin: 01/04/18 10:06 Dose: 25 mg Ondansetron HCl (Zofran Inj) 4 mg IVP Q6 PRN PRN Reason: Nausea/Vomiting Oxycodone/Acetaminophen (Percocet 5/325 Mg Tab) 2 tab PO Q4H PRN PRN Reason: Pain, Mild (1-3) Stop: 01/05/18 08:25 Last Admin: 01/04/18 08:32 Dose: 2 tab Petrolatum (Desitin Original) 0 gm EXT Q8H [facility] Last Admin: 01/04/18 10:11 Dose: 1 applic Sevelamer Carbonate (Renvela) 800 mg PO TID [facility] Last Admin: 01/04/18 14:27 Dose: 800 mg Vitamin B Complex/Vit C/Folic Acid (Nephro-Carlos) 1 tab PO DAILY [facility] Last Admin: 01/04/18 10:06 Dose: 1 tab - Labs Labs: 01/04/18 11:45 01/03/18 10:27 PT 10.2 SECONDS (9.7-12.2) 12/30/17 15:19 INR 0.9 12/30/17 15:19 APTT 23 SECONDS (21-34) 12/30/17 15:19 Attending/Attestation - Attestation I have personally seen and examined this patient.: Yes I have fully participated in the care of the patient.: Yes I have reviewed all pertinent clinical information, including history, physical exam and plan: Yes Notes (Text): Patient seen, examined and case discussed with day-time resident. Patient seen this afternoon. Patient is anxious. Patient complains about pain over the left AKA. Per vascular surgery, patient is stable for JOO from their standpoint. Will need to f/u with infectious disease in regards to IV abx. Patient's platelets have normalized. Patient's hgb 9.7 after 1 unit of PRBC transfusion Assessment/Plan 1) Dry gangrene L Foot Hx of peripheral vascular disease Left heel chronic wound * Vascular surgery: Dr. Sinclair on board--> help appreciated * Operative Note 01/01/18: skin with gangrene, anterior and posterior tibial vessels with calcific atherosclerosis; bone with reactive changes. surgical resection margin appear viable * Stable from their standpoint for JOO * Infectious Disease: Dr. Villegas on board-->help appreciated * D/c Zosyn on 01/04/18 * Vancomycin 1gm IVPB MWF (active since 01/01/18) * Will need to f/u given vascular surgery says stable for d/c * Cardiology: Dr. Collins on board-->help appreciated * Echocardiogram (01/01/18): limited study for left ventricular ejection fraction. EF:40% septum and inferior appears to be moderately hypokinetic * Stress test (01/01/18): LV systolic function is borderline. Ejection Fraction is 50-55%. No stress induced ischemia * 57 F with multiple cardiac risk factors and low EF (Stress test negative for exercise induced ischemia) assessed as high risk for cardiac events for AKA under general anaesthesia. If benefit outweighs the risk please proceed with the surgery * Vascular study (11/29/17): aortofemoral angiogram underwent pathway atherectomy of the left superficial and popliteal artery, balloon angioplasty of the naterior tibial artery, balloon angioplasty, and stent of the superificial femoral artery on the patient's left side * Plavix held on admission * Blood cultures (12/30/17): no growth after 4days X2 * Patient prior hospitalizations from 11/28/17 and 12/06/17 no bactermia noted 2) Chronic CHF Systolic dysfunction * upgraded to telemetry * Cardiology (Dr. Collins) on the case-->Help appreciated * Patient has had no prior cardiac evaluation in light of low EF * Patient has cardiac risk factors: diabetes, hypertension, lipid disorder, no prior hx of HI * Echocardiogram (01/01/18): limited study for left ventricular ejection fraction. EF:40% septum and inferior appears to be moderately hypokinetic * Stress test (01/01/18): LV systolic function is borderline. Ejection Fraction is 50-55%. No stress induced ischemia * Per Dr. Collins, 57 F with multiple cardiac risk factors and low EF (Stress test negative for exercise induced ischemia) assessed as high risk for cardiac events for AKA under general anaesthesia. If benefit outweighs the risk please proceed with the surgery * Lopressor 25mg PO BID * ARB/JACKY contraindicated secondary to ESRD 3) ESRD (MWF) * Patient completed dialysis yesterday; due for next dialysis on Saturday * Dialysis consent obtained by the resident with patient and patient's son at bedside on admission * Prior history of infected permcath site which was removed and replaced noted in last hospitalization * patient has howard over old dialysis access fron 12/07/17 * Will need to f/u surgery in regards to staple removal * Nephrology (Dr. Cao) on consult * Procrit 10,000 unit IV MWF * Nephro-Carlos 1 tab PO daily 5) Lipid Disorder * Lipid panel from 11/29/17: TG 116 Chol 131 LDL 49 HDL 29 6) Hypertension, History of Hypotension-->resolve * Holding parameters for blood pressure in the medications * Imdur 60mg PO daily * Lopressor 25mg PO BID * Patient is ESRD on Saturday, Saturday, Saturday dialysis 7) Diabetes Mellitus, Controlled * HgbA1c checked on 11/29/17 was 5.8. * Accuchecks qACHS * ISS. Will hold home diabetic medications: Starlix * Hypoglycemic protocol * Novolog sliding scale subq 8) Known hx of HIV: * Infectious Disease (Dr. Villegas) on consult-->help appreciated * HIV RNA <1.30 non detected * Will continue HIV meds: Truvada 1 tab po qd and Issentriss 400 BID. * Last CD4 count from 11/2017 was 143 9) Thrombocytopenia * Hematology-oncology (Dr. Lilo Shipley) on consult-->help appreciated * Likely secondary to surgery due to consumption * Pending HIT/CARMELLA 10) Prophylactic measure * Contraindications to SCD secondary to peripheral vascular disease/necrotic toes * Hold plavix (prior hx of vascular stent) in left lower extremity in light of vascular procedure * Anticoagulation held since prior to OR * Patient is Full code. * Patient's son Dilip Rabago is unofficial health proxy; his phone number to contact [phone]-->can be called at anytime Disposition: Per surgery, patient is stable for [facility]OO. Will need to f/u with ID if needs antibiotics on d/c on not. Platelets have normalized.
[2018-01-04] MEDS: Piperacillin/Tazobact 2.25 GM in Sodium Chloride 100 ML IVPB SCH ×2 (05:35→14:27)
[2018-01-04] MEDS: HYDROmorphone 0.5 mg/0.5 ml ISec IVP PRN ×3 (05:36→18:33)
[2018-01-04] MEDS: (Novolog) Insulin Aspart, Recombinant 100 u/ml 10 ml vial SC SCH ×4 (07:57→21:16)
--- NOTE | 2018-01-04 08:19 | CP.PCM.PN ---
Subjective - Date & Time of Evaluation Date of Evaluation: 01/03/18 Time of Evaluation: 16:10 - Subjective Subjective: Patient seen and evaluated denies chest pain and dyspnea Objective - Vital Signs/Intake and Output Vital Signs (last 24 hours): Temp Pulse Resp BP Pulse Ox 98.0 F 80 20 110/50 L 97 01/04/18 07:45 01/04/18 07:45 01/04/18 07:45 01/04/18 07:45 01/04/18 07:45 - Medications Medications: Current Medications Acetaminophen (Tylenol 325mg Tab) 650 mg PO Q6 PRN PRN Reason: Fever >100.4 F Alprazolam (Xanax) 0.25 mg PO DAILY PRN PRN Reason: Anxiety Stop: 01/09/18 10:01 Last Admin: 01/03/18 17:15 Dose: 0.25 mg Dextrose (Dextrose 50% Inj) 0 ml IV STAT PRN; Protocol PRN Reason: Hypoglycemia Protocol Dextrose (Glutose 15) 0 gm PO ONCE PRN; Protocol PRN Reason: Hypoglycemia Protocol Docusate Sodium (Colace) 100 mg PO BID [facility] Last Admin: 01/03/18 17:15 Dose: 100 mg Emtricitabine/Tenofovir (Truvada 200 Mg-300 Mg) 1 tab PO Q48H [facility] PRN Reason: Protocol Last Admin: 01/02/18 17:46 Dose: 1 tab Glucagon (Glucagen Diagnostic Kit) 0 mg IM STAT PRN; Protocol PRN Reason: Hypoglycemia Protocol Hydromorphone HCl (Dilaudid) 1 mg IVP Q4H PRN PRN Reason: Pain, severe (8-10) Last Admin: 01/04/18 05:36 Dose: 1 mg Dextrose (Dextrose 5% In Water 1000 Ml) 1,000 mls @ 0 mls/hr IV .Q0M PRN; Protocol; Per Protocol PRN Reason: Hypoglycemia Protocol Vancomycin/Sodium Chloride (Vancomycin 1 Gm/Ns 200 Ml) 1 gm in 200 mls @ 133 mls/hr IVPB MWF [facility] PRN Reason: Protocol Stop: 01/06/18 09:01 Last Admin: 01/03/18 15:18 Dose: 133 mls/hr Piperacillin Sod/Tazobactam (Sod 2.25 gm/ Sodium Chloride) 100 mls @ 200 mls/ hr IVPB Q8H [facility] PRN Reason: Protocol Last Admin: 01/04/18 05:35 Dose: 200 mls/hr Insulin Aspart (Novolog) 0 unit SC ACHS [facility] PRN Reason: Protocol Last Admin: 01/04/18 07:57 Dose: Not Given Isosorbide Mononitrate (Imdur) 60 mg PO DAILY [facility] Last Admin: 01/03/18 14:19 Dose: 60 mg Lopinavir/Ritonavir (Kaletra 200-50 Mg) 1 cap PO BID [facility] PRN Reason: Protocol Last Admin: 01/03/18 17:15 Dose: 1 cap Metoprolol Tartrate (Lopressor) 25 mg PO BID [facility] Last Admin: 01/03/18 17:24 Dose: Not Given Ondansetron HCl (Zofran Inj) 4 mg IVP Q6 PRN PRN Reason: Nausea/Vomiting Oxycodone/Acetaminophen (Percocet 5/325 Mg Tab) 2 tab PO Q4H PRN PRN Reason: Pain, Mild (1-3) Stop: 01/05/18 08:25 Last Admin: 01/02/18 14:07 Dose: 2 tab Petrolatum (Desitin Original) 0 gm EXT Q8H [facility] Last Admin: 01/04/18 00:41 Dose: 1 applic Sevelamer Carbonate (Renvela) 800 mg PO TID [facility] Last Admin: 01/03/18 17:15 Dose: 800 mg Vitamin B Complex/Vit C/Folic Acid (Nephro-Carlos) 1 tab PO DAILY [facility] Last Admin: 01/03/18 14:19 Dose: 1 tab - Labs Labs: 01/03/18 11:50 01/03/18 10:27 PT 10.2 SECONDS (9.7-12.2) 12/30/17 15:19 INR 0.9 12/30/17 15:19 APTT 23 SECONDS (21-34) 12/30/17 15:19
[2018-01-04] MEDS: Oxycodone/Acetaminophen 5/325 mg Tab PO PRN ×2 (08:32→17:16)
--- NOTE | 2018-01-04 09:30 | CP.PCM.PN ---
Subjective - Date & Time of Evaluation Date of Evaluation: 01/04/18 Time of Evaluation: 09:27 - Subjective Subjective: Vascular Surgery: Dr. Sinclair Pt seen and examined. No acute overnight events. Admits to pain in left AKA stump. Tolerating diet. Denies other complaints at this time. Denies N/V, F/C. Objective - Vital Signs/Intake and Output Vital Signs (last 24 hours): Temp Pulse Resp BP Pulse Ox 98.0 F 80 20 110/50 L 97 01/04/18 07:45 01/04/18 07:45 01/04/18 07:45 01/04/18 07:45 01/04/18 07:45 - Medications Medications: Current Medications Acetaminophen (Tylenol 325mg Tab) 650 mg PO Q6 PRN PRN Reason: Fever >100.4 F Alprazolam (Xanax) 0.25 mg PO DAILY PRN PRN Reason: Anxiety Stop: 01/09/18 10:01 Last Admin: 01/03/18 17:15 Dose: 0.25 mg Dextrose (Dextrose 50% Inj) 0 ml IV STAT PRN; Protocol PRN Reason: Hypoglycemia Protocol Dextrose (Glutose 15) 0 gm PO ONCE PRN; Protocol PRN Reason: Hypoglycemia Protocol Docusate Sodium (Colace) 100 mg PO BID [facility] Last Admin: 01/03/18 17:15 Dose: 100 mg Emtricitabine/Tenofovir (Truvada 200 Mg-300 Mg) 1 tab PO Q48H [facility] PRN Reason: Protocol Last Admin: 01/02/18 17:46 Dose: 1 tab Glucagon (Glucagen Diagnostic Kit) 0 mg IM STAT PRN; Protocol PRN Reason: Hypoglycemia Protocol Hydromorphone HCl (Dilaudid) 1 mg IVP Q4H PRN PRN Reason: Pain, severe (8-10) Last Admin: 01/04/18 05:36 Dose: 1 mg Dextrose (Dextrose 5% In Water 1000 Ml) 1,000 mls @ 0 mls/hr IV .Q0M PRN; Protocol; Per Protocol PRN Reason: Hypoglycemia Protocol Vancomycin/Sodium Chloride (Vancomycin 1 Gm/Ns 200 Ml) 1 gm in 200 mls @ 133 mls/hr IVPB MWF [facility] PRN Reason: Protocol Stop: 01/06/18 09:01 Last Admin: 01/03/18 15:18 Dose: 133 mls/hr Piperacillin Sod/Tazobactam (Sod 2.25 gm/ Sodium Chloride) 100 mls @ 200 mls/ hr IVPB Q8H [facility] PRN Reason: Protocol Last Admin: 01/04/18 05:35 Dose: 200 mls/hr Insulin Aspart (Novolog) 0 unit SC ACHS [facility] PRN Reason: Protocol Last Admin: 01/04/18 07:57 Dose: Not Given Isosorbide Mononitrate (Imdur) 60 mg PO DAILY [facility] Last Admin: 01/03/18 14:19 Dose: 60 mg Lopinavir/Ritonavir (Kaletra 200-50 Mg) 1 cap PO BID [facility] PRN Reason: Protocol Last Admin: 01/03/18 17:15 Dose: 1 cap Metoprolol Tartrate (Lopressor) 25 mg PO BID [facility] Last Admin: 01/03/18 17:24 Dose: Not Given Ondansetron HCl (Zofran Inj) 4 mg IVP Q6 PRN PRN Reason: Nausea/Vomiting Oxycodone/Acetaminophen (Percocet 5/325 Mg Tab) 2 tab PO Q4H PRN PRN Reason: Pain, Mild (1-3) Stop: 01/05/18 08:25 Last Admin: 01/04/18 08:32 Dose: 2 tab Petrolatum (Desitin Original) 0 gm EXT Q8H [facility] Last Admin: 01/04/18 00:41 Dose: 1 applic Sevelamer Carbonate (Renvela) 800 mg PO TID [facility] Last Admin: 01/03/18 17:15 Dose: 800 mg Vitamin B Complex/Vit C/Folic Acid (Nephro-Carlos) 1 tab PO DAILY [facility] Last Admin: 01/03/18 14:19 Dose: 1 tab - Labs Labs: 01/03/18 11:50 01/03/18 10:27 PT 10.2 SECONDS (9.7-12.2) 12/30/17 15:19 INR 0.9 12/30/17 15:19 APTT 23 SECONDS (21-34) 12/30/17 15:19 - Constitutional Appears: Well, No Acute Distress - Head Exam Head Exam: ATRAUMATIC, NORMOCEPHALIC - ENT Exam ENT Exam: Mucous Membranes Moist - Respiratory Exam Respiratory Exam: NORMAL BREATHING PATTERN - Cardiovascular Exam Cardiovascular Exam: RRR - GI/Abdominal Exam GI & Abdominal Exam: Soft - Extremities Exam Additional comments: L AKA stump with dressing, dry & intact, tender to palpation - Neurological Exam Neurological Exam: Alert, Awake - Skin Skin Exam: Dry, Warm Assessment and Plan - Assessment and Plan (Free Text) Assessment: 57F s/p L AKA; POD#3 Plan: - monitor H/H - ok to DC to [facility] from surgical standpoint - leave dressing in place until f/u visit in the office with Dr. Sinclair in 1 week - d/w Dr. Yahir Crooks, PGY-3
[2018-01-04] MEDS: Multivitamin Vitamin B Complex (Nephro-Vite) Tab PO SCH (10:06)
[2018-01-04] MEDS: Lopinavir/Ritonavir Tab PO SCH ×2 (10:09→17:19)
[2018-01-04 12:01] LABS: BASO % 0.5 % (0.0-2.0); EOS % 0.5 % (0.0-4.0); HEMOGLOBIN 9.4 g/dL (11.0-16.0); LYMPH # 0.6 K/uL (1.0-4.3); LYMPH % 7.4 % (20.0-40.0); MEAN CORPUSCULAR HEMOGLOBIN 31.8 pg (27.0-31.0); MEAN CORPUSCULAR HGB CONC 33.1 g/dL (33.0-37.0); MEAN PLATELET VOLUME 8.5 fL (7.2-11.7); MONO # 0.6 K/uL (0.0-0.8); MONO % 7.9 % (0.0-10.0); NEUT # 6.8 K/uL (1.8-7.0); NEUT % 83.7 % (50.0-75.0); PLATELET COUNT 136 K/uL (130-400); RBC 2.94 Mil/uL (3.80-5.20); RED CELL DISTRIBUTION WIDTH 24.1 % (11.5-14.5); WHITE BLOOD COUNT 8.1 K/uL (4.8-10.8)
[2018-01-04 12:26] LABS: ANISOCYTOSIS MODERATE; EOSINOPHIL 1 % (0-4); LYMPHOCYTE 7 % (20-40); MICROCYTOSIS SLIGHT; MONOCYTE 12 % (0-10); NEUTROPHIL 80 % (50-75); PLATELET ESTIMATE NORMAL (NORMAL); POIKILOCYTOSIS SLIGHT; TOTAL CELLS COUNTED 100
[2018-01-04 12:27] LABS: HYPOCHROMIC SLIGHT
[2018-01-04 12:28] LABS: BURR CELLS SLIGHT; OVALOCYTES SLIGHT; TEARDROP CELLS SLIGHT
[2018-01-04] MEDS ORDERED: Bisacodyl 5mg EC Tab PO ONE (15:17)
[2018-01-04] MEDS: Emtricitabine-Tenofovir 200 mg-300 mg Tab PO SCH (16:10)
[2018-01-04] MEDS: Simethicone 80 mg Chewtab PO SCH ×2 (17:18→22:40)
[2018-01-05] MEDS: Zinc Oxide Topical 30 gm Tube EXT SCH ×3 (00:55→18:37)
--- NOTE | 2018-01-05 01:27 | CP.PCM.PN ---
<Tara Rincon - Last Filed: 01/05/18 02:55> Subjective - Date & Time of Evaluation Date of Evaluation: 01/05/18 Time of Evaluation: 01:27 - Subjective Subjective: Medicine progress note for Dr. Elizabeth Patient was seen and examined at bedside. Patient appears tired, continues to fall asleep. Patient states she still has pain in her left LE s/p AKA. Patient denies chest pain, dyspnea, abdominal pain, nausea, vomiting, fevers, headaches. No acute events overnight. Objective - Vital Signs/Intake and Output Vital Signs (last 24 hours): Temp Pulse Resp BP Pulse Ox 98.6 F 78 20 121/73 97 01/04/18 23:35 01/04/18 23:35 01/04/18 23:35 01/04/18 23:35 01/04/18 23:35 - Medications Medications: Current Medications Acetaminophen (Tylenol 325mg Tab) 650 mg PO Q6 PRN PRN Reason: Fever >100.4 F Alprazolam (Xanax) 0.5 mg PO BID [facility] Stop: 01/11/18 14:25 Last Admin: 01/04/18 17:17 Dose: 0.5 mg Dextrose (Dextrose 50% Inj) 0 ml IV STAT PRN; Protocol PRN Reason: Hypoglycemia Protocol Dextrose (Glutose 15) 0 gm PO ONCE PRN; Protocol PRN Reason: Hypoglycemia Protocol Docusate Sodium (Colace) 100 mg PO BID [facility] Last Admin: 01/04/18 17:19 Dose: 100 mg Emtricitabine/Tenofovir (Truvada 200 Mg-300 Mg) 1 tab PO Q48H [facility] PRN Reason: Protocol Last Admin: 01/04/18 16:10 Dose: 1 tab Glucagon (Glucagen Diagnostic Kit) 0 mg IM STAT PRN; Protocol PRN Reason: Hypoglycemia Protocol Heparin Sodium (Porcine) (Heparin) 5,000 units SC Q12 [facility] Last Admin: 01/04/18 22:40 Dose: 5,000 units Hydromorphone HCl (Dilaudid) 1 mg IVP Q4H PRN PRN Reason: Pain, severe (8-10) Last Admin: 01/04/18 18:33 Dose: 1 mg Dextrose (Dextrose 5% In Water 1000 Ml) 1,000 mls @ 0 mls/hr IV .Q0M PRN; Protocol; Per Protocol PRN Reason: Hypoglycemia Protocol Vancomycin/Sodium Chloride (Vancomycin 1 Gm/Ns 200 Ml) 1 gm in 200 mls @ 133 mls/hr IVPB MWF [facility] PRN Reason: Protocol Stop: 01/06/18 09:01 Last Admin: 01/03/18 15:18 Dose: 133 mls/hr Insulin Aspart (Novolog) 0 unit SC ACHS [facility] PRN Reason: Protocol Last Admin: 01/04/18 21:16 Dose: Not Given Isosorbide Mononitrate (Imdur) 60 mg PO DAILY [facility] Last Admin: 01/04/18 10:09 Dose: 60 mg Lopinavir/Ritonavir (Kaletra 200-50 Mg) 1 cap PO BID [facility] PRN Reason: Protocol Last Admin: 01/04/18 17:19 Dose: 1 cap Metoprolol Tartrate (Lopressor) 25 mg PO BID [facility] Last Admin: 01/04/18 17:18 Dose: Not Given Ondansetron HCl (Zofran Inj) 4 mg IVP Q6 PRN PRN Reason: Nausea/Vomiting Oxycodone/Acetaminophen (Percocet 5/325 Mg Tab) 2 tab PO Q4H PRN PRN Reason: Pain, Mild (1-3) Stop: 01/05/18 08:25 Last Admin: 01/04/18 17:16 Dose: 2 tab Petrolatum (Desitin Original) 0 gm EXT Q8H [facility] Last Admin: 01/04/18 16:10 Dose: Not Given Sevelamer Carbonate (Renvela) 800 mg PO TID [facility] Last Admin: 01/04/18 17:17 Dose: 800 mg Simethicone (Mylicon Chew Tab) 40 mg PO QID [facility] Last Admin: 01/04/18 22:40 Dose: 40 mg Vitamin B Complex/Vit C/Folic Acid (Nephro-Carlos) 1 tab PO DAILY [facility] Last Admin: 01/04/18 10:06 Dose: 1 tab - Labs Labs: 01/04/18 11:45 01/03/18 10:27 PT 10.2 SECONDS (9.7-12.2) 12/30/17 15:19 INR 0.9 12/30/17 15:19 APTT 23 SECONDS (21-34) 12/30/17 15:19 - Additional Findings Additional findings: - Constitutional Appears: Non-toxic, Older Than Stated Age, Chronically Ill - Head Exam Head Exam: ATRAUMATIC - Eye Exam Eye Exam: absent: PERRL (left eye white, glaucoma, blind in left eye, right eye EOMI ) - ENT Exam ENT Exam: Mucous Membranes Moist - Neck Exam Neck exam: Positive for: Full Rom. Negative for: Lymphadenopathy - Respiratory Exam Respiratory Exam: Clear to Auscultation Bilateral, NORMAL BREATHING PATTERN. absent: Rales, Rhonchi, Wheezes - Cardiovascular Exam Cardiovascular Exam: REGULAR RHYTHM, +S1, +S2 - GI/Abdominal Exam GI & Abdominal Exam: Normal Bowel Sounds, Soft. absent: Tenderness - Extremities Exam Extremities exam: Right BKA, well healed scar, no ulcers noted; LLE- AKA, dress - dry, intact; mild tenderness to palpation. - Back Exam Back exam: NORMAL INSPECTION. absent: CVA tenderness (L), CVA tenderness (R) - Neurological Exam Neurological exam: lethargic - Skin Skin Exam: Warm, dry; Right chest permacath Assessment and Plan (1) Dry gangrene Status: Acute (2) CHF (congestive heart failure) Status: Acute (3) End stage renal disease on dialysis Status: Chronic (4) HTN (hypertension) Status: Chronic (5) Diabetes Status: Acute (6) HIV (human immunodeficiency virus infection) Status: Acute (7) Prophylactic measure Status: Acute - Assessment and Plan (Free Text) Plan: (1) Dry gangrene (left foot) S/P Left AKA Assessment & Plan: Hx of BKA S/P left AKA (on 01/01/18) * Vascular surgery consulted- Dr. Sinclair * ID consulted- Dr. Villegas. * Cardiac clearance-> Dr. Collins consulted * Lexiscan scheduled for 12/31/17: no stress induced ischemia; EF 45-55%. * PreOp: EKG, Chest Xray (negative), Coags * Plavix held * Blood cx: negative * Continue Zosyn 2.25g IV Q8h * Continue Vanco 1gm IV MWF * Continue pain management * Percocet 2tabs Q4 prn * Dilaudid 1mg IV Q4 prn - Patient was given one unit of PRBC 01/03/18 as H/H decreased to 7.9/23.8 (2) CHF (congestive heart failure) * Echo (12/05/17): EF 30-35% * Cardiology consulted- Dr. Collins * Amosiscmallory on 12/[address] Collins * Continue to monitor on telemetry (3) End stage renal disease on dialysis * ESRD on HD: MWF schedule * Nephrology consulted- Dr. Cao * Continue nephrovite and velphoro (4) HTN (hypertension)--> currently hypotensive * Continue home medications: Imdur 60mg PO daily and Metoprolol 25mg PO BID ( parameters placed- hold for SBP <100, HR <60) * Metoprolol has not been given due to hypotension * NS bolus 250mls/hr given on 12/31/17. * C[employer] REGISTER SERVICER called on 01/01 for hypotension s/p dialysis and AKA. 500ml Bolus given; BP improved. Patient's dressing leaking/ blood soaked; pressure dressing applied by residential interior designer. Transfusion not required at that time. Of note, per EMR, patient was given heparin 4,600u SC during dialysis in the afternoon, s/p AKA. * Continue to monitor (5) Diabetes * A1c (11/29/17): 5.8 * Accuchecks * ISS (will hold home diabetic medications) * Hypoglycemic protocol (6) HIV (human immunodeficiency virus infection) * Continue home medication: Truvada 1tab PO daily, Issentriss 400mg PO BID * CD4 count (12/05/17): 143 * Viral load (12/05/17): not detected * ID consulted, Dr. Villegas. (7) HLD * Lipid panel from 11/29/17: TG 116 Chol 131 LDL 49 HDL 29 (8) Constipation * Colace 100mg PO BID * Dulcolax given once * Abdominal xray: nonspecific bowel gas pattern with prominent bowel loops (9) Anxiety * Xanax 0.25mg PO PRN (10) Thrombocytopenia * Improving, 136 on 01/04 * Heparin induced Ab: f/u results * Serotonin relesae assay: f/u results * Hold chemical anticoagulation; Heparin 4600u MWF discontinued. * Hem/Onc consulted, Dr. Shipley. Help appreciated. (11) Prophylactic measure * DVT: heparin 4600u SC MWF per nephrology; Plavix held. * Full Code * Patient's son Dilip Zhong is unofficial health proxy; his phone number to contact [phone] * Pastoral care consult * PT Disposition: Patient s/p left AKA. Possible discharge Saturday01/06/18 to [facility]. Blood work scheduled with dialysis days. <Danielle Elizabeth V - Last Filed: 01/05/18 09:21> Objective - Vital Signs/Intake and Output Vital Signs (last 24 hours): Temp Pulse Resp BP Pulse Ox 98.1 F 85 20 123/72 97 01/05/18 07:51 01/05/18 07:51 01/05/18 07:51 01/05/18 07:51 01/05/18 07:51 - Medications Medications: Current Medications Acetaminophen (Tylenol 325mg Tab) 650 mg PO Q6 PRN PRN Reason: Fever >100.4 F Alprazolam (Xanax) 0.5 mg PO BID [facility] Stop: 01/11/18 14:25 Last Admin: 01/04/18 17:17 Dose: 0.5 mg Dextrose (Dextrose 50% Inj) 0 ml IV STAT PRN; Protocol PRN Reason: Hypoglycemia Protocol Dextrose (Glutose 15) 0 gm PO ONCE PRN; Protocol PRN Reason: Hypoglycemia Protocol Docusate Sodium (Colace) 100 mg PO BID [facility] Last Admin: 01/04/18 17:19 Dose: 100 mg Emtricitabine/Tenofovir (Truvada 200 Mg-300 Mg) 1 tab PO Q48H [facility] PRN Reason: Protocol Last Admin: 01/04/18 16:10 Dose: 1 tab Glucagon (Glucagen Diagnostic Kit) 0 mg IM STAT PRN; Protocol PRN Reason: Hypoglycemia Protocol Heparin Sodium (Porcine) (Heparin) 5,000 units SC Q12 [facility] Last Admin: 01/04/18 22:40 Dose: 5,000 units Hydromorphone HCl (Dilaudid) 1 mg IVP Q4H PRN PRN Reason: Pain, severe (8-10) Last Admin: 01/05/18 08:37 Dose: 1 mg Dextrose (Dextrose 5% In Water 1000 Ml) 1,000 mls @ 0 mls/hr IV .Q0M PRN; Protocol; Per Protocol PRN Reason: Hypoglycemia Protocol Vancomycin/Sodium Chloride (Vancomycin 1 Gm/Ns 200 Ml) 1 gm in 200 mls @ 133 mls/hr IVPB MWF [facility] PRN Reason: Protocol Stop: 01/06/18 09:01 Last Admin: 01/03/18 15:18 Dose: 133 mls/hr Insulin Aspart (Novolog) 0 unit SC ACHS [facility] PRN Reason: Protocol Last Admin: 01/05/18 07:41 Dose: Not Given Isosorbide Mononitrate (Imdur) 60 mg PO DAILY [facility] Last Admin: 01/04/18 10:09 Dose: 60 mg Lopinavir/Ritonavir (Kaletra 200-50 Mg) 1 cap PO BID [facility] PRN Reason: Protocol Last Admin: 01/04/18 17:19 Dose: 1 cap Metoprolol Tartrate (Lopressor) 25 mg PO BID [facility] Last Admin: 01/04/18 17:18 Dose: Not Given Ondansetron HCl (Zofran Inj) 4 mg IVP Q6 PRN PRN Reason: Nausea/Vomiting Petrolatum (Desitin Original) 0 gm EXT Q8H [facility] Last Admin: 01/05/18 00:55 Dose: 1 applic Sevelamer Carbonate (Renvela) 800 mg PO TID [facility] Last Admin: 01/04/18 17:17 Dose: 800 mg Simethicone (Mylicon Chew Tab) 40 mg PO QID [facility] Last Admin: 01/04/18 22:40 Dose: 40 mg Vitamin B Complex/Vit C/Folic Acid (Nephro-Carlos) 1 tab PO DAILY [facility] Last Admin: 01/04/18 10:06 Dose: 1 tab - Labs Labs: 01/04/18 11:45 01/03/18 10:27 PT 10.2 SECONDS (9.7-12.2) 12/30/17 15:19 INR 0.9 12/30/17 15:19 APTT 23 SECONDS (21-34) 12/30/17 15:19 Attending/Attestation - Attestation I have personally seen and examined this patient.: Yes I have fully participated in the care of the patient.: Yes I have reviewed all pertinent clinical information, including history, physical exam and plan: Yes Notes (Text): Patient seen, examined, and case discussed with day-time resident. Patient seen this morning. Patient reports she has had a bowel movement yesterday. patient reports pain over left AKA but it is improved compared to yesterday. Patient encouraged to eat her breakfast this morning. Patient is scheduled for dialysis tomorrow will receive blood work then. Will need to f/u infectious disease in regards antibiotic coverage for discharge planning. Blood cultures are negative. Will f/u with vascular surgery in regards to when to follow-up in the office Assessment/Plan 1) Dry gangrene L Foot Hx of peripheral vascular disease Left heel chronic wound * Vascular surgery: Dr. Sinclair on board--> help appreciated * Operative Note 01/01/18: skin with gangrene, anterior and posterior tibial vessels with calcific atherosclerosis; bone with reactive changes. surgical resection margin appear viable * Stable from their standpoint for [facility] * Infectious Disease: Dr. Villegas on board-->help appreciated * D/c Zosyn on 01/04/18 * Vancomycin 1gm IVPB MWF (active since 01/01/18) * Will need to f/u given vascular surgery says stable for d/c * Cardiology: Dr. Collins on board-->help appreciated * Echocardiogram (01/01/18): limited study for left ventricular ejection fraction. EF:40% septum and inferior appears to be moderately hypokinetic * Stress test (01/01/18): LV systolic function is borderline. Ejection Fraction is 50-55%. No stress induced ischemia * 57 F with multiple cardiac risk factors and low EF (Stress test negative for exercise induced ischemia) assessed as high risk for cardiac events for AKA under general anaesthesia. If benefit outweighs the risk please proceed with the surgery * Vascular study (11/29/17): aortofemoral angiogram underwent pathway atherectomy of the left superficial and popliteal artery, balloon angioplasty of the naterior tibial artery, balloon angioplasty, and stent of the superificial femoral artery on the patient's left side * Plavix held on admission * Blood cultures (12/30/17): no growth after 5days X2 * Patient prior hospitalizations from 11/28/17 and 12/06/17 no bactermia noted 2) Chronic CHF Systolic dysfunction * upgraded to telemetry * Cardiology (Dr. Collins) on the case-->Help appreciated * Patient has had no prior cardiac evaluation in light of low EF * Patient has cardiac risk factors: diabetes, hypertension, lipid disorder, no prior hx of IN * Echocardiogram (01/01/18): limited study for left ventricular ejection fraction. EF:40% septum and inferior appears to be moderately hypokinetic * Stress test (01/01/18): LV systolic function is borderline. Ejection Fraction is 50-55%. No stress induced ischemia * Per Dr. Collins, 57 F with multiple cardiac risk factors and low EF (Stress test negative for exercise induced ischemia) assessed as high risk for cardiac events for AKA under general anaesthesia. If benefit outweighs the risk please proceed with the surgery * Lopressor 25mg PO BID * ARB/JACKY contraindicated secondary to ESRD 3) ESRD (MWF) * Patient completed dialysis yesterday; due for next dialysis on Saturday * Dialysis consent obtained by the resident with patient and patient's son at bedside on admission * Prior history of infected permcath site which was removed and replaced noted in last hospitalization * patient has howard over old dialysis access fron 12/07/17 * Will need to f/u surgery in regards to staple removal * Nephrology (Dr. Cao) on consult * Procrit 10,000 unit IV MWF * Nephro-Carlos 1 tab PO daily 5) Lipid Disorder * Lipid panel from 11/29/17: TG 116 Chol 131 LDL 49 HDL 29 6) Hypertension, History of Hypotension-->resolve * Holding parameters for blood pressure in the medications * Imdur 60mg PO daily * Lopressor 25mg PO BID * Patient is ESRD on Saturday, Saturday, Saturday dialysis 7) Diabetes Mellitus, Controlled * HgbA1c checked on 11/29/17 was 5.8. * Accuchecks qACHS * ISS. Will hold home diabetic medications: Starlix * Hypoglycemic protocol * Novolog sliding scale subq 8) Known hx of HIV: * Infectious Disease (Dr. Villegas) on consult-->help appreciated * HIV RNA <1.30 non detected * Will continue HIV meds: Truvada 1 tab po qd and Issentriss 400 BID. * Last CD4 count from 11/2017 was 143 9) Thrombocytopenia-->normalized * Hematology-oncology (Dr. Lilo Shipley) on consult-->help appreciated * Likely secondary to surgery due to consumption * Pending HIT/CARMELLA * Platelets have normalized 10) Prophylactic measure * Contraindications to SCD secondary to peripheral vascular disease/necrotic toes * s/p AKA * Hold plavix (prior hx of vascular stent) in left lower extremity in light of vascular procedure * Resume DVT ppx * Patient is Full code. * Patient's son Dilip Rabago is unofficial health proxy; his phone number to contact [phone]-->can be called at anytime Disposition: Per surgery, patient is stable for [facility]. Will need to f/u with ID if needs antibiotics on d/c on not. Platelets have normalized.
[2018-01-05] MEDS: HYDROmorphone 0.5 mg/0.5 ml ISec IVP PRN ×3 (03:33→13:04)
[2018-01-05] MEDS: (Novolog) Insulin Aspart, Recombinant 100 u/ml 10 ml vial SC SCH ×4 (07:41→22:12)
[2018-01-05] MEDS: Simethicone 80 mg Chewtab PO SCH ×4 (10:00→21:15)
[2018-01-05] MEDS: Multivitamin Vitamin B Complex (Nephro-Vite) Tab PO SCH (10:00)
[2018-01-05] MEDS: Lopinavir/Ritonavir Tab PO SCH ×2 (10:01→18:35)
--- NOTE | 2018-01-05 19:54 | CP.PCM.PN ---
Subjective - Date & Time of Evaluation Date of Evaluation: 01/05/18 Time of Evaluation: 04:15 - Subjective Subjective: dictated Objective - Vital Signs/Intake and Output Vital Signs (last 24 hours): Temp Pulse Resp BP Pulse Ox 99.1 F 84 20 120/66 98 01/05/18 15:32 01/05/18 16:00 01/05/18 15:32 01/05/18 18:36 01/05/18 15:32 Intake and Output: 01/05/18 01/06/18 18:59 06:59 Intake Total 260 Balance 260 - Medications Medications: Current Medications Acetaminophen (Tylenol 325mg Tab) 650 mg PO Q6 PRN PRN Reason: Fever >100.4 F Alprazolam (Xanax) 0.5 mg PO BID [facility] Stop: 01/11/18 14:25 Last Admin: 01/05/18 18:36 Dose: 0.5 mg Dextrose (Dextrose 50% Inj) 0 ml IV STAT PRN; Protocol PRN Reason: Hypoglycemia Protocol Dextrose (Glutose 15) 0 gm PO ONCE PRN; Protocol PRN Reason: Hypoglycemia Protocol Docusate Sodium (Colace) 100 mg PO BID [facility] Last Admin: 01/05/18 18:37 Dose: 100 mg Emtricitabine/Tenofovir (Truvada 200 Mg-300 Mg) 1 tab PO Q48H [facility] PRN Reason: Protocol Last Admin: 01/04/18 16:10 Dose: 1 tab Glucagon (Glucagen Diagnostic Kit) 0 mg IM STAT PRN; Protocol PRN Reason: Hypoglycemia Protocol Heparin Sodium (Porcine) (Heparin) 5,000 units SC Q12 [facility] Last Admin: 01/05/18 09:59 Dose: 5,000 units Hydromorphone HCl (Dilaudid) 1 mg IVP Q4H PRN PRN Reason: Pain, severe (8-10) Last Admin: 01/05/18 13:04 Dose: 1 mg Dextrose (Dextrose 5% In Water 1000 Ml) 1,000 mls @ 0 mls/hr IV .Q0M PRN; Protocol; Per Protocol PRN Reason: Hypoglycemia Protocol Vancomycin/Sodium Chloride (Vancomycin 1 Gm/Ns 200 Ml) 1 gm in 200 mls @ 133 mls/hr IVPB MWF [facility] PRN Reason: Protocol Stop: 01/06/18 09:01 Last Admin: 01/03/18 15:18 Dose: 133 mls/hr Insulin Aspart (Novolog) 0 unit SC ACHS [facility] PRN Reason: Protocol Last Admin: 01/05/18 17:16 Dose: Not Given Isosorbide Mononitrate (Imdur) 60 mg PO DAILY [facility] Last Admin: 01/05/18 10:00 Dose: 60 mg Lopinavir/Ritonavir (Kaletra 200-50 Mg) 1 cap PO BID [facility] PRN Reason: Protocol Last Admin: 01/05/18 18:35 Dose: 1 cap Metoprolol Tartrate (Lopressor) 25 mg PO BID [facility] Last Admin: 01/05/18 18:36 Dose: 25 mg Ondansetron HCl (Zofran Inj) 4 mg IVP Q6 PRN PRN Reason: Nausea/Vomiting Petrolatum (Desitin Original) 0 gm EXT Q8H [facility] Last Admin: 01/05/18 18:37 Dose: 1 applic Sevelamer Carbonate (Renvela) 800 mg PO TID [facility] Last Admin: 01/05/18 18:36 Dose: 800 mg Simethicone (Mylicon Chew Tab) 40 mg PO QID [facility] Last Admin: 01/05/18 18:36 Dose: 40 mg Vitamin B Complex/Vit C/Folic Acid (Nephro-Carlos) 1 tab PO DAILY [facility] Last Admin: 01/05/18 10:00 Dose: 1 tab - Labs Labs: 01/04/18 11:45 01/03/18 10:27 PT 10.2 SECONDS (9.7-12.2) 12/30/17 15:19 INR 0.9 12/30/17 15:19 APTT 23 SECONDS (21-34) 12/30/17 15:19
--- NOTE | 2018-01-05 21:54 | CP.PCM.PN ---
Subjective - Date & Time of Evaluation Date of Evaluation: 01/05/18 Time of Evaluation: 15:00 - Subjective Subjective: SEEEN ON RENAL F/U ON HD M W F APPEARS SLEEPY .. ON SAT SHE WAS CONFUSED WHEN I SAW HER ALL PREVIOUUS EMR REVIEWED Objective - Vital Signs/Intake and Output Vital Signs (last 24 hours): Temp Pulse Resp BP Pulse Ox 99.1 F 84 20 120/66 98 01/05/18 15:32 01/05/18 16:00 01/05/18 15:32 01/05/18 18:36 01/05/18 15:32 Intake and Output: 01/05/18 01/06/18 18:59 06:59 Intake Total 260 Balance 260 - Medications Medications: Current Medications Acetaminophen (Tylenol 325mg Tab) 650 mg PO Q6 PRN PRN Reason: Fever >100.4 F Alprazolam (Xanax) 0.5 mg PO BID [facility] Stop: 01/11/18 14:25 Last Admin: 01/05/18 18:36 Dose: 0.5 mg Dextrose (Dextrose 50% Inj) 0 ml IV STAT PRN; Protocol PRN Reason: Hypoglycemia Protocol Dextrose (Glutose 15) 0 gm PO ONCE PRN; Protocol PRN Reason: Hypoglycemia Protocol Docusate Sodium (Colace) 100 mg PO BID [facility] Last Admin: 01/05/18 18:37 Dose: 100 mg Emtricitabine/Tenofovir (Truvada 200 Mg-300 Mg) 1 tab PO Q48H [facility] PRN Reason: Protocol Last Admin: 01/04/18 16:10 Dose: 1 tab Glucagon (Glucagen Diagnostic Kit) 0 mg IM STAT PRN; Protocol PRN Reason: Hypoglycemia Protocol Heparin Sodium (Porcine) (Heparin) 5,000 units SC Q12 [facility] Last Admin: 01/05/18 21:14 Dose: 5,000 units Hydromorphone HCl (Dilaudid) 1 mg IVP Q4H PRN PRN Reason: Pain, severe (8-10) Last Admin: 01/05/18 13:04 Dose: 1 mg Dextrose (Dextrose 5% In Water 1000 Ml) 1,000 mls @ 0 mls/hr IV .Q0M PRN; Protocol; Per Protocol PRN Reason: Hypoglycemia Protocol Vancomycin/Sodium Chloride (Vancomycin 1 Gm/Ns 200 Ml) 1 gm in 200 mls @ 133 mls/hr IVPB MWF [facility] PRN Reason: Protocol Stop: 01/06/18 09:01 Last Admin: 01/03/18 15:18 Dose: 133 mls/hr Insulin Aspart (Novolog) 0 unit SC ACHS [facility] PRN Reason: Protocol Last Admin: 01/05/18 17:16 Dose: Not Given Isosorbide Mononitrate (Imdur) 60 mg PO DAILY [facility] Last Admin: 01/05/18 10:00 Dose: 60 mg Lopinavir/Ritonavir (Kaletra 200-50 Mg) 1 cap PO BID [facility] PRN Reason: Protocol Last Admin: 01/05/18 18:35 Dose: 1 cap Metoprolol Tartrate (Lopressor) 25 mg PO BID [facility] Last Admin: 01/05/18 18:36 Dose: 25 mg Ondansetron HCl (Zofran Inj) 4 mg IVP Q6 PRN PRN Reason: Nausea/Vomiting Petrolatum (Desitin Original) 0 gm EXT Q8H [facility] Last Admin: 01/05/18 18:37 Dose: 1 applic Sevelamer Carbonate (Renvela) 800 mg PO TID [facility] Last Admin: 01/05/18 18:36 Dose: 800 mg Simethicone (Mylicon Chew Tab) 40 mg PO QID [facility] Last Admin: 01/05/18 21:15 Dose: 40 mg Vitamin B Complex/Vit C/Folic Acid (Nephro-Carlos) 1 tab PO DAILY [facility] Last Admin: 01/05/18 10:00 Dose: 1 tab - Labs Labs: 01/04/18 11:45 01/03/18 10:27 PT 10.2 SECONDS (9.7-12.2) 12/30/17 15:19 INR 0.9 12/30/17 15:19 APTT 23 SECONDS (21-34) 12/30/17 15:19 Assessment and Plan - Assessment and Plan (Free Text) Assessment: ESRD ON HD M W F .. TO BE C/O ANEMIA OF CKD .. H/H STABLE S/P L AKA .. MMP P: C/O CURRENT CARE C/O PRESENT MANAGEMENT C/O SAME MEDS
--- NOTE | 2018-01-05 21:56 | CP.PCM.PN ---
Subjective - Date & Time of Evaluation Date of Evaluation: 01/05/18 Time of Evaluation: 15:00 - Subjective Subjective: Patient seen and evaluated S/P AKA Denies chest pain and dyspnea Physical Examination - Additional Findings Additional findings: - Constitutional Appears: Non-toxic, Older Than Stated Age, Chronically Ill - Head Exam Head Exam: ATRAUMATIC - Eye Exam Eye Exam: absent: PERRL (left eye white, glaucoma, blind in left eye, right eye EOMI ) - ENT Exam ENT Exam: Mucous Membranes Moist - Neck Exam Neck exam: Positive for: Full Rom. Negative for: Lymphadenopathy - Respiratory Exam Respiratory Exam: Clear to Auscultation Bilateral, NORMAL BREATHING PATTERN. absent: Rales, Rhonchi, Wheezes - Cardiovascular Exam Cardiovascular Exam: REGULAR RHYTHM, +S1, +S2 - GI/Abdominal Exam GI & Abdominal Exam: Normal Bowel Sounds, Soft. absent: Tenderness - Extremities Exam Extremities exam: Right BKA, well healed scar, no ulcers noted; LLE- AKA, dress - dry, intact; mild tenderness to palpation. - Back Exam Back exam: NORMAL INSPECTION. absent: CVA tenderness (L), CVA tenderness (R) - Neurological Exam Neurological exam: lethargic - Skin Skin Exam: Warm, dry; Right chest permacath Objective - Vital Signs/Intake and Output Vital Signs (last 24 hours): Temp Pulse Resp BP Pulse Ox 99.1 F 84 20 120/66 98 01/05/18 15:32 01/05/18 16:00 01/05/18 15:32 01/05/18 18:36 01/05/18 15:32 Intake and Output: 01/05/18 01/06/18 18:59 06:59 Intake Total 260 Balance 260 - Medications Medications: Current Medications Acetaminophen (Tylenol 325mg Tab) 650 mg PO Q6 PRN PRN Reason: Fever >100.4 F Alprazolam (Xanax) 0.5 mg PO BID [facility] Stop: 01/11/18 14:25 Last Admin: 01/05/18 18:36 Dose: 0.5 mg Dextrose (Dextrose 50% Inj) 0 ml IV STAT PRN; Protocol PRN Reason: Hypoglycemia Protocol Dextrose (Glutose 15) 0 gm PO ONCE PRN; Protocol PRN Reason: Hypoglycemia Protocol Docusate Sodium (Colace) 100 mg PO BID [facility] Last Admin: 01/05/18 18:37 Dose: 100 mg Emtricitabine/Tenofovir (Truvada 200 Mg-300 Mg) 1 tab PO Q48H [facility] PRN Reason: Protocol Last Admin: 01/04/18 16:10 Dose: 1 tab Glucagon (Glucagen Diagnostic Kit) 0 mg IM STAT PRN; Protocol PRN Reason: Hypoglycemia Protocol Heparin Sodium (Porcine) (Heparin) 5,000 units SC Q12 [facility] Last Admin: 01/05/18 21:14 Dose: 5,000 units Hydromorphone HCl (Dilaudid) 1 mg IVP Q4H PRN PRN Reason: Pain, severe (8-10) Last Admin: 01/05/18 13:04 Dose: 1 mg Dextrose (Dextrose 5% In Water 1000 Ml) 1,000 mls @ 0 mls/hr IV .Q0M PRN; Protocol; Per Protocol PRN Reason: Hypoglycemia Protocol Vancomycin/Sodium Chloride (Vancomycin 1 Gm/Ns 200 Ml) 1 gm in 200 mls @ 133 mls/hr IVPB MWF [facility] PRN Reason: Protocol Stop: 01/06/18 09:01 Last Admin: 01/03/18 15:18 Dose: 133 mls/hr Insulin Aspart (Novolog) 0 unit SC ACHS [facility] PRN Reason: Protocol Last Admin: 01/05/18 17:16 Dose: Not Given Isosorbide Mononitrate (Imdur) 60 mg PO DAILY [facility] Last Admin: 01/05/18 10:00 Dose: 60 mg Lopinavir/Ritonavir (Kaletra 200-50 Mg) 1 cap PO BID [facility] PRN Reason: Protocol Last Admin: 01/05/18 18:35 Dose: 1 cap Metoprolol Tartrate (Lopressor) 25 mg PO BID [facility] Last Admin: 01/05/18 18:36 Dose: 25 mg Ondansetron HCl (Zofran Inj) 4 mg IVP Q6 PRN PRN Reason: Nausea/Vomiting Petrolatum (Desitin Original) 0 gm EXT Q8H [facility] Last Admin: 01/05/18 18:37 Dose: 1 applic Sevelamer Carbonate (Renvela) 800 mg PO TID [facility] Last Admin: 01/05/18 18:36 Dose: 800 mg Simethicone (Mylicon Chew Tab) 40 mg PO QID [facility] Last Admin: 01/05/18 21:15 Dose: 40 mg Vitamin B Complex/Vit C/Folic Acid (Nephro-Carlos) 1 tab PO DAILY [facility] Last Admin: 01/05/18 10:00 Dose: 1 tab - Labs Labs: 01/04/18 11:45 01/03/18 10:27 PT 10.2 SECONDS (9.7-12.2) 12/30/17 15:19 INR 0.9 12/30/17 15:19 APTT 23 SECONDS (21-34) 12/30/17 15:19 Assessment and Plan - Assessment and Plan (Free Text) Assessment: (1) Dry gangrene (left foot) S/P Left AKA Assessment & Plan: Hx of BKA S/P left AKA (on 01/01/18) * Vascular surgery consulted- Dr. Sinclair * ID consulted- Dr. Villegas. * Cardiac clearance-> Dr. Collins consulted * Lexiscan scheduled for 12/31/17: no stress induced ischemia; EF 45-55%. * PreOp: EKG, Chest Xray (negative), Coags * Plavix held * Blood cx: negative * Continue Zosyn 2.25g IV Q8h * Continue Vanco 1gm IV MWF * Continue pain management * Percocet 2tabs Q4 prn * Dilaudid 1mg IV Q4 prn - Patient was given one unit of PRBC 01/03/18 as H/H decreased to 7.9/23.8 (2) CHF (congestive heart failure) * Echo (12/05/17): EF 30-35% * Continue to monitor on telemetry (3) End stage renal disease on dialysis * ESRD on HD: MWF schedule * Nephrology consulted- Dr. Cao * Continue nephrovite and velphoro (4) HTN (hypertension)--> currently hypotensive * Continue home medications: Imdur 60mg PO daily and Metoprolol 25mg PO BID ( parameters placed- hold for SBP <100, HR <60) * Metoprolol has not been given due to hypotension * NS bolus 250mls/hr given on 12/31/17. * DISASTER RECOVERY SPECIALIST called on 01/01 for hypotension s/p dialysis and AKA. 500ml Bolus given; BP improved. Patient's dressing leaking/ blood soaked; pressure dressing applied by surgical sales representative. Transfusion not required at that time. Of note, per EMR, patient was given heparin 4,600u SC during dialysis in the afternoon, s/p AKA. * Continue to monitor (5) Diabetes * A1c (11/29/17): 5.8 * Accuchecks * ISS (will hold home diabetic medications) * Hypoglycemic protocol (6) HIV (human immunodeficiency virus infection) * Continue home medication: Truvada 1tab PO daily, Issentriss 400mg PO BID * CD4 count (12/05/17): 143 * Viral load (12/05/17): not detected * ID consulted, Dr. Villegas. (7) HLD * Lipid panel from 11/29/17: TG 116 Chol 131 LDL 49 HDL 29 (8) Constipation * Colace 100mg PO BID * Dulcolax given once * Abdominal xray: nonspecific bowel gas pattern with prominent bowel loops (9) Anxiety * Xanax 0.25mg PO PRN (10) Thrombocytopenia * Improving, 136 on 01/04 * Heparin induced Ab: f/u results * Serotonin relesae assay: f/u results * Hold chemical anticoagulation; Heparin 4600u MWF discontinued. * Hem/Onc consulted, Dr. Shipley. Help appreciated. (11) Prophylactic measure * DVT: heparin 4600u SC MWF per nephrology; Plavix held. * Full Code * Patient's son Dilip Zhong is unofficial health proxy; his phone number to contact [phone] * Pastoral care consult * PT
[2018-01-06] MEDS: Zinc Oxide Topical 30 gm Tube EXT SCH ×2 (00:33→08:48)
--- NOTE | 2018-01-06 00:47 | PN ---
DATE: 01/05/2018 SUBJECTIVE: The patient was seen today. She was awake, but she said she was falling asleep, and she still complained of pain on the left stump, and she had a dressing which appeared with JACKY bandage and looked like had some old blood on it, and she is being followed by the surgeon, and she denied any other complaints. Did complain of pain in the left AKA site. She also has right BKA from the past, and she still has a right side catheter, and she had a small right IV site on the right upper arm. PHYSICAL EXAMINATION: VITAL SIGNS: T-max is 99.1, pulse is 84, blood pressure 118/55, and respirations are 18. HEENT: Head is atraumatic. NECK: Supple. LUNGS: Clear. Decreased breath sounds on bases. HEART: S1 and S2 regular. ABDOMEN: Soft. She has the stump with the dressing and this new stump had some soiled dry blood on it, so we will wait for the vascular surgeon to evaluate it tomorrow, and she has been on vancomycin, and she had surgery done for this. The surgery was done on 01/01/2018 , today is the third day and so I want to give 6 more doses of vancomycin, covering 2 weeks for the stump and also waiting for the surgical evaluation of the stump, and we will follow. She is also HIV positive and has end-stage renal disease, so will follow and she may go to rehab soon when cleared by Vascular. Tammy Villegas MD
[2018-01-06] MEDS: HYDROmorphone 0.5 mg/0.5 ml ISec IVP PRN (01:11)
[2018-01-06] MEDS: (Novolog) Insulin Aspart, Recombinant 100 u/ml 10 ml vial SC SCH ×2 (07:45→11:30)
[2018-01-06] MEDS: Lopinavir/Ritonavir Tab PO SCH (10:00)
[2018-01-06] MEDS: Multivitamin Vitamin B Complex (Nephro-Vite) Tab PO SCH (10:00)
[2018-01-06] MEDS: Simethicone 80 mg Chewtab PO SCH ×2 (10:00→14:24)
[2018-01-06 12:02] LABS: BASO % 0.4 % (0.0-2.0); EOS # 0.1 K/uL (0.0-0.7); HEMOGLOBIN 9.4 g/dL (11.0-16.0); LYMPH # 1.4 K/uL (1.0-4.3); LYMPH % 12.2 % (20.0-40.0); MEAN CORPUSCULAR HEMOGLOBIN 30.2 pg (27.0-31.0); MEAN CORPUSCULAR HGB CONC 33.1 g/dL (33.0-37.0); MEAN PLATELET VOLUME 6.7 fL (7.2-11.7); MONO # 0.7 K/uL (0.0-0.8); MONO % 6.1 % (0.0-10.0); NEUT % 80.3 % (50.0-75.0); RBC 3.11 Mil/uL (3.80-5.20); RED CELL DISTRIBUTION WIDTH 16.9 % (11.5-14.5); WHITE BLOOD COUNT 11.2 K/uL (4.8-10.8)
[2018-01-06 12:04] LABS: MEAN CELL VOLUME 91.3 fL (81.0-99.0)
[2018-01-06 12:15] LABS: ALB/GLOB RATIO 0.8 (1.0-2.1); CALCIUM 8.1 mg/dl (8.6-10.4)
[2018-01-06] MEDS: Vancomycin 1 gm/NS 200 ml 1 GM/200 ML BAG IVPB SCH (12:55)
--- NOTE | 2018-01-06 14:01 | CP.PCM.PN ---
Subjective - Date & Time of Evaluation Date of Evaluation: 01/06/18 Time of Evaluation: 13:58 - Subjective Subjective: Medicine progress note for Dr. Rodríguez Patient was seen and examined at bedside in dialysis. Patient reports having abdominal pain. She is unsure when her last BM was, but per nursing, patient had a BM yesterday. Patient also reports having pain in the left LE. s/p AKA. Patient denies chest pain, dyspnea, abdominal pain, nausea, vomiting, fevers, headaches. No acute events overnight. Objective - Vital Signs/Intake and Output Vital Signs (last 24 hours): Temp Pulse Resp BP Pulse Ox 97.2 F L 110 H 19 149/79 96 01/06/18 12:15 01/06/18 12:15 01/06/18 12:15 01/06/18 12:15 01/06/18 12:15 Intake and Output: 01/06/18 01/06/18 06:59 18:59 Intake Total 240 Balance 240 - Medications Medications: Current Medications Acetaminophen (Tylenol 325mg Tab) 650 mg PO Q6 PRN PRN Reason: Fever >100.4 F Alprazolam (Xanax) 0.5 mg PO BID [facility] Stop: 01/11/18 14:25 Last Admin: 01/05/18 18:36 Dose: 0.5 mg Dextrose (Dextrose 50% Inj) 0 ml IV STAT PRN; Protocol PRN Reason: Hypoglycemia Protocol Dextrose (Glutose 15) 0 gm PO ONCE PRN; Protocol PRN Reason: Hypoglycemia Protocol Docusate Sodium (Colace) 100 mg PO BID [facility] Last Admin: 01/05/18 18:37 Dose: 100 mg Duloxetine HCl (Cymbalta) 30 mg PO DAILY [facility] Emtricitabine/Tenofovir (Truvada 200 Mg-300 Mg) 1 tab PO Q48H [facility] PRN Reason: Protocol Last Admin: 01/04/18 16:10 Dose: 1 tab Gabapentin (Neurontin) 100 mg PO TID [facility] Glucagon (Glucagen Diagnostic Kit) 0 mg IM STAT PRN; Protocol PRN Reason: Hypoglycemia Protocol Heparin Sodium (Porcine) (Heparin) 5,000 units SC Q12 [facility] Last Admin: 01/05/18 21:14 Dose: 5,000 units Hydromorphone HCl (Dilaudid) 1 mg IVP Q4H PRN PRN Reason: Pain, severe (8-10) Last Admin: 01/06/18 01:11 Dose: 1 mg Dextrose (Dextrose 5% In Water 1000 Ml) 1,000 mls @ 0 mls/hr IV .Q0M PRN; Protocol; Per Protocol PRN Reason: Hypoglycemia Protocol Insulin Aspart (Novolog) 0 unit SC ACHS [facility] PRN Reason: Protocol Last Admin: 01/05/18 22:12 Dose: Not Given Isosorbide Mononitrate (Imdur) 60 mg PO DAILY [facility] Last Admin: 01/05/18 10:00 Dose: 60 mg Lopinavir/Ritonavir (Kaletra 200-50 Mg) 1 cap PO BID [facility] PRN Reason: Protocol Last Admin: 01/05/18 18:35 Dose: 1 cap Metoprolol Tartrate (Lopressor) 25 mg PO BID [facility] Last Admin: 01/05/18 18:36 Dose: 25 mg Ondansetron HCl (Zofran Inj) 4 mg IVP Q6 PRN PRN Reason: Nausea/Vomiting Petrolatum (Desitin Original) 0 gm EXT Q8H [facility] Last Admin: 01/06/18 08:48 Dose: 1 applic Sevelamer Carbonate (Renvela) 800 mg PO TID [facility] Last Admin: 01/05/18 18:36 Dose: 800 mg Simethicone (Mylicon Chew Tab) 40 mg PO QID [facility] Last Admin: 01/05/18 21:15 Dose: 40 mg Vitamin B Complex/Vit C/Folic Acid (Nephro-Carlos) 1 tab PO DAILY [facility] Last Admin: 01/05/18 10:00 Dose: 1 tab - Labs Labs: 01/06/18 11:49 01/06/18 11:49 PT 10.2 SECONDS (9.7-12.2) 12/30/17 15:19 INR 0.9 12/30/17 15:19 APTT 23 SECONDS (21-34) 12/30/17 15:19 - Additional Findings Additional findings: - Constitutional Appears: Non-toxic, Older Than Stated Age, Chronically Ill - Head Exam Head Exam: ATRAUMATIC - Eye Exam Eye Exam: absent: PERRL (left eye white, glaucoma, blind in left eye, right eye EOMI ) - ENT Exam ENT Exam: Mucous Membranes Moist - Neck Exam Neck exam: Positive for: Full Rom. Negative for: Lymphadenopathy - Respiratory Exam Respiratory Exam: Clear to Auscultation Bilateral, NORMAL BREATHING PATTERN. absent: Rales, Rhonchi, Wheezes - Cardiovascular Exam Cardiovascular Exam: REGULAR RHYTHM, +S1, +S2 - GI/Abdominal Exam GI & Abdominal Exam: Normal Bowel Sounds, Tenderness(diffuse), Soft. - Extremities Exam Extremities exam: Right BKA, well healed scar, no ulcers noted; LLE- AKA, dress - dry, intact; mild tenderness to palpation. - Back Exam Back exam: NORMAL INSPECTION. absent: CVA tenderness (L), CVA tenderness (R) - Neurological Exam Neurological exam: lethargic - Skin Skin Exam: Warm, dry; Right chest permacath Assessment and Plan (1) Dry gangrene Status: Acute (2) CHF (congestive heart failure) Status: Acute (3) End stage renal disease on dialysis Status: Chronic (4) HTN (hypertension) Status: Chronic (5) Diabetes Status: Acute (6) HIV (human immunodeficiency virus infection) Status: Acute (7) Prophylactic measure Status: Acute - Assessment and Plan (Free Text) Plan: (1) Dry gangrene (left foot) S/P Left AKA Assessment & Plan: Hx of BKA S/P left AKA (on 01/01/18) * Vascular surgery consulted- Dr. Sinclair * ID consulted- Dr. Villegas. * Cardiac clearance-> Dr. Collins consulted * Alisson scheduled for 12/31/17: no stress induced ischemia; EF 45-55%. * PreOp: EKG, Chest Xray (negative), Coags * Plavix held * Blood cx: negative * Continue Zosyn 2.25g IV Q8h * Continue Vanco 1gm IV MWF * Continue pain management * Percocet 2tabs Q4 prn * Dilaudid 1mg IV Q4 prn - Patient was given one unit of PRBC 01/03/18 as H/H decreased to 7.9/23.8 (2) CHF (congestive heart failure) * Echo (12/05/17): EF 30-35% * Cardiology consulted- Dr. Collins * Alisson on 12/[address] Collins * Continue to monitor on telemetry (3) End stage renal disease on dialysis * ESRD on HD: MWF schedule * Nephrology consulted- Dr. Cao * Continue nephrovite and velphoro (4) HTN (hypertension)--> currently hypotensive * Continue home medications: Imdur 60mg PO daily and Metoprolol 25mg PO BID ( parameters placed- hold for SBP <100, HR <60) * Metoprolol has not been given due to hypotension * NS bolus 250mls/hr given on 12/31/17. * BUSINESS OBJECTS DEVELOPER called on 01/01 for hypotension s/p dialysis and AKA. 500ml Bolus given; BP improved. Patient's dressing leaking/ blood soaked; pressure dressing applied by surgical coder. Transfusion not required at that time. Of note, per EMR, patient was given heparin 4,600u SC during dialysis in the afternoon, s/p AKA. * Continue to monitor (5) Diabetes * A1c (11/29/17): 5.8 * Accuchecks * ISS (will hold home diabetic medications) * Hypoglycemic protocol (6) HIV (human immunodeficiency virus infection) * Continue home medication: Truvada 1tab PO daily, Issentriss 400mg PO BID * CD4 count (12/05/17): 143 * Viral load (12/05/17): not detected * ID consulted, Dr. Villegas. (7) HLD * Lipid panel from 11/29/17: TG 116 Chol 131 LDL 49 HDL 29 (8) Constipation * Colace 100mg PO BID * Dulcolax given once * Abdominal xray: nonspecific bowel gas pattern with prominent bowel loops (9) Anxiety * Xanax 0.25mg PO PRN (10) Thrombocytopenia * Improving, 136 on 01/04 * Heparin induced Ab: f/u results * Serotonin release assay: f/u results * Hold chemical anticoagulation; Heparin 4600u MWF discontinued. * Hem/Onc consulted, Dr. Shipley. Help appreciated. (11) Prophylactic measure * DVT: heparin 4600u SC MWF per nephrology; Plavix held. * Full Code * Patient's son Dilip Zhong is unofficial health proxy; his phone number to contact [phone] * Pastoral care consult * PT Disposition: Patient s/p left AKA. Possible discharge Saturday01/06/18 to [facility]. Blood work scheduled with dialysis days.
--- NOTE | 2018-01-06 14:15 | CP.PCM.DIS ---
<Tara Rincon - Last Filed: 01/06/18 15:42> Provider - Provider Date of Admission: 12/30/17 16:16 Attending physician: Danielle Elizabeth DO Consults: Surgery: Dr. Sinclair Cardiology: Dr. Collins Nephrology: Dr. Cao ID: Dr. Villegas Hem/Onc: Dr. Shipley Psychiatry: Dr. Boykin Time Spent in preparation of Discharge (in minutes): 45 Diagnosis - Discharge Diagnosis (1) Dry gangrene Status: Acute (2) CHF (congestive heart failure) Status: Acute (3) End stage renal disease on dialysis Status: Chronic (4) HTN (hypertension) Status: Chronic Priority: Medium (5) Diabetes Status: Acute (6) HIV (human immunodeficiency virus infection) Status: Acute (7) Prophylactic measure Status: Acute Hospital Course - Lab Results Lab Results: Micro Results 12/30/17 14:45 Blood Blood Culture - Final NO GROWTH AFTER 5 DAYS 12/30/17 14:45 Blood Gram Stain - Final TEST NOT PERFORMED 12/30/17 15:20 Blood Blood Culture - Final NO GROWTH AFTER 5 DAYS 12/30/17 15:20 Blood Gram Stain - Final TEST NOT PERFORMED Most Recent Lab Values WBC 11.2 K/uL (4.8-10.8) H 01/06/18 11:49 RBC 3.11 Mil/uL (3.80-5.20) L 01/06/18 11:49 Hgb 9.4 g/dL (11.0-16.0) L 01/06/18 11:49 Hct 28.4 % (34.0-47.0) L 01/06/18 11:49 MCV 91.3 fL (81.0-99.0) D 01/06/18 11:49 MCH 30.2 pg (27.0-31.0) 01/06/18 11:49 MCHC 33.1 g/dL (33.0-37.0) 01/06/18 11:49 RDW 16.9 % (11.5-14.5) H 01/06/18 11:49 Plt Count 597 K/uL (130-400) H D 01/06/18 11:49 MPV 6.7 fL (7.2-11.7) L 01/06/18 11:49 Neut % (Auto) 80.3 % (50.0-75.0) H 01/06/18 11:49 Lymph % (Auto) 12.2 % (20.0-40.0) L 01/06/18 11:49 Canadian % (Auto) 6.1 % (0.0-10.0) 01/06/18 11:49 Eos % (Auto) 1.0 % (0.0-4.0) 01/06/18 11:49 Baso % (Auto) 0.4 % (0.0-2.0) 01/06/18 11:49 Neut # (Auto) 9.0 K/uL (1.8-7.0) H 01/06/18 11:49 Lymph # (Auto) 1.4 K/uL (1.0-4.3) 01/06/18 11:49 Canadian # (Auto) 0.7 K/uL (0.0-0.8) 01/06/18 11:49 Eos # (Auto) 0.1 K/uL (0.0-0.7) 01/06/18 11:49 Baso # (Auto) 0.0 K/uL (0.0-0.2) 01/06/18 11:49 Neutrophils % (Manual) 80 % (50-75) H 01/04/18 11:45 Lymphocytes % (Manual) 7 % (20-40) L 01/04/18 11:45 Monocytes % (Manual) 12 % (0-10) H 01/04/18 11:45 Eosinophils % (Manual) 1 % (0-4) 01/04/18 11:45 Basophils % (Manual) 1 % (0-2) 01/03/18 11:50 Platelet Estimate Normal (NORMAL) 01/04/18 11:45 Hypochromasia (manual) Slight 01/04/18 11:45 Poikilocytosis (manual Slight 01/04/18 11:45 Anisocytosis (manual) Moderate 01/04/18 11:45 Microcytosis (manual) Slight 01/04/18 11:45 Macrocytosis (manual) Slight 01/04/18 11:45 Tear Drop Cells Slight 01/04/18 11:45 Ovalocytes Slight 01/04/18 11:45 [place] Cells Slight 01/04/18 11:45 PT 10.2 SECONDS (9.7-12.2) 12/30/17 15:19 INR 0.9 12/30/17 15:19 APTT 23 SECONDS (21-34) 12/30/17 15:19 Sodium 133 mmol/L (132-148) 01/06/18 11:49 Potassium 4.2 mmol/L (3.6-5.2) 01/06/18 11:49 Chloride 96 mmol/L (98-107) L 01/06/18 11:49 Carbon Dioxide 26 mmol/L (22-30) 01/06/18 11:49 Anion Gap 16 (10-20) 01/06/18 11:49 BUN 43 mg/dL (7-17) H 01/06/18 11:49 Creatinine 3.2 mg/dL (0.7-1.2) H 01/06/18 11:49 Est GFR ( Amer) 18 01/06/18 11:49 Est GFR (Non-Af Amer) 15 01/06/18 11:49 POC Glucose (mg/dL) 98 mg/dL (65-110) 01/06/18 11:11 Random Glucose 196 mg/dL (65-105) H 01/06/18 11:49 Calcium 8.1 mg/dl (8.6-10.4) L 01/06/18 11:49 Phosphorus 5.8 mg/dL (2.5-4.5) H 01/03/18 10:27 Magnesium 2.0 mg/dL (1.6-2.3) 01/03/18 10:27 Total Bilirubin 0.8 mg/dL (0.2-1.3) 01/06/18 11:49 AST 39 U/L (14-36) H 01/06/18 11:49 ALT 18 U/L (9-52) 01/06/18 11:49 Alkaline Phosphatase 106 U/L (38-126) 01/06/18 11:49 Total Protein 6.6 g/dL (6.3-8.3) 01/06/18 11:49 Albumin 3.0 g/dL (3.5-5.0) L 01/06/18 11:49 Globulin 3.7 gm/dL (2.2-3.9) 01/06/18 11:49 Albumin/Globulin Ratio 0.8 (1.0-2.1) L 01/06/18 11:49 Beta HCG, Quant 5.60 mIU/ML 01/01/18 09:20 Blood Type B POSITIVE 01/02/18 07:31 Antibody Screen Negative 01/02/18 07:31 Crossmatch See Detail 01/02/18 07:31 - Hospital Course Hospital Course: CC: Left foot necrosis FULL CODE Son [facility] Proxy [phone] This patient is a 57yo F w/ a PMHx HLD, HTN, HIV undetectable, ESRD MWF schedule , DM on insulin, PAD, schedule who is coming to the hospital with a left gangrenous foot that she has had for 2-3 months at this point, but has been problematic for the past year. She currently has no complaints, and states that she only came in at the urging of her surgeon Dr. Sinclair. PMhx: uncontrolled DM, HTN, HLD, HIV, PAD, chronic heel ulcers, ESRD on HD WMF Allergies: None Surgeries: Right BKA amputation, multiple placements for vascular access for dialysis Medications: Isentress 400mg BID, Starlix 60mg daily, metroprolol 25mg BID, procrit 10k IV MWF, isorbide mononitrate 60mg PO daily, Lopinavir/Ritonavir 200- 50 PO BID, Toprol 25mg BID, Iron pills 500mg PO TID, Vit B complex, Folic Acid Social: Lives with son, does not walk at baseline (amputation of the right extrem below the knee most recently), former smoker Hospital course Patient admitted from ED for foot surgery with Dr. Sinclair for left foot gangrene. [employer] called for hypotension (66/35 and 77/44) on 12/30/17, cancelled because patient's BP improved and was asymptomatic. Patient continued to have stable hypotension. Cleared by cardiology Dr. Collins for procedure based on results of myocardial perfusion scan. Patient anxious prior to surgery, pastoral services consulted. Complained of constipation, colace started. Above knee amputation of left lower extremity was performed on was 01/01/[address] Sinclair. [employer] called 01/01/18 post HD for for hypotension (62/21). Central line attempt in right groin failed, line successfully established in right EJ, bp 91/58. Patient continued to state that she was "scared for her health" and "wanted someone to care about her" after her surgery, xanax 0.25mg po prn anxiety. Patient complained of pain and would yell for help, pain management with Dilaudid 1mg iv q4h prn and percocet 2 tabs q4h prn. Patient continued to complain that she had not passed gas or had a BM. Abdominal xray ordered and showed nonspecific bowel gas pattern with prominent bowel loops. Hypotension improved. [facility] Dr. Shipley consulted for thrombocytopenia (94 and 75), heparin held, heparin induced ab and serotonin release assay ordered. Thrombocytopenia resolving, continued to complain of left lower extremity and abdominal pain. Consult psychiatry Dr. Boykin and was started on duloxetine. Patient is stable for discharge to [facility]. Patient must follow up with surgery, Dr. Sinclair, within one week of discharge. Imaging EKG 12/30/17- normal sinus rhythm, age indeterminate anterior infact with lateral T wave abnormality CXR 12/30/17- No active disease Echo 12/31/18- LVEF approximately 40%, septum and inferior amaral moderately hypokinetic (Echo 11/2017 EF 30-35%) Myocardial perfusion nuclear scan 12/31/17- no stress induced ischemia EF 45-55% Abd XR- nonspecific gas pattern with prominent bowel loops Consult Surgery Dr. Sinclair- Admit to hospital for surgery for left lower extremity gangrene. Above knee amputation of left lower extremity was performed on was 01/01/[address] Sinclair. LLE stump wrapped with JACKY bandage, remove in 1 week at follow up visit with Dr. Sinclair. Cardiology Dr. Collins- EF 45-55% based on myocardial perfusion scan. cleared for surgery. Denied chest pain and dyspnea after surgery Nephrology Dr. Cao- Patient ESRD on HD MWF and well known to diet aid. Hypokalemia managed with HD. ID Dr. Villegas- continue Vancomycin 2 weeks post surgery Quinten- Thrombocytopenia due to consumption from surgery, r/o HIT. Psychiatry Dr. Boykin- major depressive disorder, start Duloxetine This is a brief summary of the hospital course. Please see EMR for more details. Discharge Exam - Additional Findings Additional findings: - Constitutional Appears: Non-toxic, Older Than Stated Age, Chronically Ill - Head Exam Head Exam: ATRAUMATIC - Eye Exam Eye Exam: absent: PERRL (left eye white, glaucoma, blind in left eye, right eye EOMI ) - ENT Exam ENT Exam: Mucous Membranes Moist - Neck Exam Neck exam: Positive for: Full Rom. Negative for: Lymphadenopathy - Respiratory Exam Respiratory Exam: Clear to Auscultation Bilateral, NORMAL BREATHING PATTERN. absent: Rales, Rhonchi, Wheezes - Cardiovascular Exam Cardiovascular Exam: REGULAR RHYTHM, +S1, +S2 - GI/Abdominal Exam GI & Abdominal Exam: Normal Bowel Sounds, Tenderness(diffuse), Soft. - Extremities Exam Extremities exam: Right BKA, well healed scar, no ulcers noted; LLE- AKA, dress - dry, intact; mild tenderness to palpation. - Back Exam Back exam: NORMAL INSPECTION. absent: CVA tenderness (L), CVA tenderness (R) - Neurological Exam Neurological exam: lethargic - Skin Skin Exam: Warm, dry; Right chest permacath Discharge Plan - Discharge Medications Prescriptions: Vancomycin/0.9 % Sod Chloride [Vanco 1 Gram/150 ml-0.9% NaCl] 1 gm IV MWF #10 plast..bag - Follow Up Plan Condition: STABLE Disposition: HOME/ ROUTINE Instructions: Heart Failure, Adult (DC), Peripheral Vascular (Arterial) Disease (DC), Gangrene (DC), End Stage Kidney Disease (DC), Amputation, Above- the-Knee (DC), Managing Pain After Surgery, Dialysis and Diet Additional Instructions: Patient is stable for discharge to [facility] at [facility]. Patient must continue medications. Patient must follow up with surgeon, Dr. Sinclair, within one week of discharge. <Tamir Rodríguez - Last Filed: 01/10/18 14:01> Provider - Provider Date of Admission: 12/30/17 16:16 Attending physician: Tamir Rodríguez MD Hospital Course - Lab Results Lab Results: Micro Results 12/30/17 14:45 Blood Blood Culture - Final NO GROWTH AFTER 5 DAYS 12/30/17 14:45 Blood Gram Stain - Final TEST NOT PERFORMED 12/30/17 15:20 Blood Blood Culture - Final NO GROWTH AFTER 5 DAYS 12/30/17 15:20 Blood Gram Stain - Final TEST NOT PERFORMED Most Recent Lab Values WBC 11.2 K/uL (4.8-10.8) H 01/06/18 11:49 RBC 3.11 Mil/uL (3.80-5.20) L 01/06/18 11:49 Hgb 9.4 g/dL (11.0-16.0) L 01/06/18 11:49 Hct 28.4 % (34.0-47.0) L 01/06/18 11:49 MCV 91.3 fL (81.0-99.0) D 01/06/18 11:49 MCH 30.2 pg (27.0-31.0) 01/06/18 11:49 MCHC 33.1 g/dL (33.0-37.0) 01/06/18 11:49 RDW 16.9 % (11.5-14.5) H 01/06/18 11:49 Plt Count 597 K/uL (130-400) H D 01/06/18 11:49 MPV 6.7 fL (7.2-11.7) L 01/06/18 11:49 Neut % (Auto) 80.3 % (50.0-75.0) H 01/06/18 11:49 Lymph % (Auto) 12.2 % (20.0-40.0) L 01/06/18 11:49 Canadian % (Auto) 6.1 % (0.0-10.0) 01/06/18 11:49 Eos % (Auto) 1.0 % (0.0-4.0) 01/06/18 11:49 Baso % (Auto) 0.4 % (0.0-2.0) 01/06/18 11:49 Neut # (Auto) 9.0 K/uL (1.8-7.0) H 01/06/18 11:49 Lymph # (Auto) 1.4 K/uL (1.0-4.3) 01/06/18 11:49 Canadian # (Auto) 0.7 K/uL (0.0-0.8) 01/06/18 11:49 Eos # (Auto) 0.1 K/uL (0.0-0.7) 01/06/18 11:49 Baso # (Auto) 0.0 K/uL (0.0-0.2) 01/06/18 11:49 Neutrophils % (Manual) 80 % (50-75) H 01/04/18 11:45 Lymphocytes % (Manual) 7 % (20-40) L 01/04/18 11:45 Monocytes % (Manual) 12 % (0-10) H 01/04/18 11:45 Eosinophils % (Manual) 1 % (0-4) 01/04/18 11:45 Basophils % (Manual) 1 % (0-2) 01/03/18 11:50 Platelet Estimate Normal (NORMAL) 01/04/18 11:45 Hypochromasia (manual) Slight 01/04/18 11:45 Poikilocytosis (manual Slight 01/04/18 11:45 Anisocytosis (manual) Moderate 01/04/18 11:45 Microcytosis (manual) Slight 01/04/18 11:45 Macrocytosis (manual) Slight 01/04/18 11:45 Tear Drop Cells Slight 01/04/18 11:45 Ovalocytes Slight 01/04/18 11:45 [place] Cells Slight 01/04/18 11:45 PT 10.2 SECONDS (9.7-12.2) 12/30/17 15:19 INR 0.9 12/30/17 15:19 APTT 23 SECONDS (21-34) 12/30/17 15:19 Sodium 133 mmol/L (132-148) 01/06/18 11:49 Potassium 4.2 mmol/L (3.6-5.2) 01/06/18 11:49 Chloride 96 mmol/L (98-107) L 01/06/18 11:49 Carbon Dioxide 26 mmol/L (22-30) 01/06/18 11:49 Anion Gap 16 (10-20) 01/06/18 11:49 BUN 43 mg/dL (7-17) H 01/06/18 11:49 Creatinine 3.2 mg/dL (0.7-1.2) H 01/06/18 11:49 Est GFR ( Amer) 18 01/06/18 11:49 Est GFR (Non-Af Amer) 15 01/06/18 11:49 POC Glucose (mg/dL) 98 mg/dL (65-110) 01/06/18 11:11 Random Glucose 196 mg/dL (65-105) H 01/06/18 11:49 Calcium 8.1 mg/dl (8.6-10.4) L 01/06/18 11:49 Phosphorus 5.8 mg/dL (2.5-4.5) H 01/03/18 10:27 Magnesium 2.0 mg/dL (1.6-2.3) 01/03/18 10:27 Total Bilirubin 0.8 mg/dL (0.2-1.3) 01/06/18 11:49 AST 39 U/L (14-36) H 01/06/18 11:49 ALT 18 U/L (9-52) 01/06/18 11:49 Alkaline Phosphatase 106 U/L (38-126) 01/06/18 11:49 Total Protein 6.6 g/dL (6.3-8.3) 01/06/18 11:49 Albumin 3.0 g/dL (3.5-5.0) L 01/06/18 11:49 Globulin 3.7 gm/dL (2.2-3.9) 01/06/18 11:49 Albumin/Globulin Ratio 0.8 (1.0-2.1) L 01/06/18 11:49 UF Heparin Interp Negative (Negative) 01/03/18 12:03 Beta HCG, Quant 5.60 mIU/ML 01/01/18 09:20 Heparin-induced Plt Ab Negative (Negative) 01/03/18 12:03 CARMELLA UFH Low Dose 0.1 0 % Release 01/03/18 12:03 CARMELLA UFH Low Dose 0.5 0 % Release 01/03/18 12:03 CARMELLA UFH High Dose 100 0 % Release 01/03/18 12:03 Blood Type B POSITIVE 01/02/18 07:31 Antibody Screen Negative 01/02/18 07:31 Crossmatch See Detail 01/02/18 07:31 Attending/Attestation - Attestation I have personally seen and examined this patient.: Yes I have fully participated in the care of the patient.: Yes I have reviewed all pertinent clinical information, including history, physical exam and plan: Yes Notes (Text): (1) Dry gangrene Status: Acute (2) CHF (congestive heart failure) Chronic Diastolic Status: Acute (3) End stage renal disease on dialysis Status: Chronic (4) HTN (hypertension) Status: Chronic Priority: Medium (5) Diabetes Status: Acute (6) HIV (human immunodeficiency virus infection) Status: Acute
--- NOTE | 2018-01-06 14:28 | PCM.PSYCH ---
Initial Psychiatric Evaluation - Initial Psychiatric Evaluation Type of Admission: Voluntary Legal Status: Capacity Chief Complaint (in patient's own words): "I am feeling depressed" History of Present Illness and Precipitating Events: Patient is a 57 year old with past medical history of HLD, HTN, ESRD MWF schedule, DM on insulin, PAD who came to the hospital 2 weeks ago with left gangrenous foot that she had for 2-3 months. Patient had an AKA amputation. Patient reports feeling anxious and has feelings of depression. Patient has seen psychiatrist in the past for depression but was never prescribed any medications. Patient denies suicidal ideations. Patient denies auditory, tactile , or visual hallucinations. PMhx: uncontrolled DM, HTN, HLD, HIV, PAD, chronic heel ulcers, ESRD on HD WMF Allergies: None Surgeries: Right BKA amputation, multiple placements for vascular access for dialysis Medications: Isentress 400mg BID, Starlix 60mg daily, metroprolol 25mg BID, procrit 10k IV MWF, isorbide mononitrate 60mg PO daily, Lopinavir/Ritonavir 200- 50 PO BID, Toprol 25mg BID, Iron pills 500mg PO TID, Vit B complex, Folic Acid Social: Lives with son, does not walk at baseline (amputation of the right extrem below the knee most recently), former smoker Current Medications: Active Medications Generic Name Dose Route Start Last Admin Trade Name Freq PRN Reason Stop Dose Admin Acetaminophen 650 mg 12/30/17 16:40 Tylenol 325mg Tab PO Q6 PRN Fever >100.4 F Alprazolam 0.5 mg 01/04/18 14:24 01/05/18 18:36 Xanax PO 01/11/18 14:25 0.5 mg BID KATARINA Administration Dextrose 0 ml 12/30/17 16:47 Dextrose 50% Inj IV STAT PRN Hypoglycemia Protocol Protocol Dextrose 0 gm 12/30/17 16:47 Glutose 15 PO ONCE PRN Hypoglycemia Protocol Protocol Docusate Sodium 100 mg 12/31/17 18:00 01/06/18 10:00 Colace PO Not Given BID KATARINA Duloxetine HCl 30 mg 01/07/18 10:00 Cymbalta PO DAILY KATARINA Emtricitabine/Tenofovir 1 tab 12/31/17 16:45 01/04/18 16:10 Truvada 200 Mg-300 Mg PO 1 tab Q48H KATARINA Administration Protocol Gabapentin 100 mg 01/06/18 14:00 Neurontin PO TID KATARINA Glucagon 0 mg 12/30/17 16:47 Glucagen Diagnostic Kit IM STAT PRN Hypoglycemia Protocol Protocol Heparin Sodium (Porcine) 5,000 units 01/04/18 22:00 01/06/18 10:00 Heparin SC Not Given Q12 KATARINA Hydromorphone HCl 1 mg 01/03/18 11:42 01/06/18 01:11 Dilaudid IVP 1 mg Q4H PRN Administration Pain, severe (8-10) Dextrose 1,000 mls @ 0 mls/hr 12/30/17 16:47 Dextrose 5% In Water 1000 Ml IV .Q0M PRN Hypoglycemia Protocol Protocol Per Protocol Insulin Aspart 0 unit 12/30/17 22:00 01/05/18 22:12 Novolog SC Not Given ACHS KATARINA Protocol Isosorbide Mononitrate 60 mg 12/31/17 10:00 01/06/18 10:00 Imdur PO Not Given DAILY KATARINA Lopinavir/Ritonavir 1 cap 12/30/17 18:00 01/06/18 10:00 Kaletra 200-50 Mg PO Not Given BID [facility] Protocol Metoprolol Tartrate 25 mg 12/30/17 18:29 01/06/18 10:00 Lopressor PO Not Given BID KATARINA Ondansetron HCl 4 mg 12/30/17 16:40 Zofran Inj IVP Q6 PRN Nausea/Vomiting Petrolatum 0 gm 12/30/17 16:45 01/06/18 08:48 Desitin Original EXT 1 applic Q8H KATARINA Administration Sevelamer Carbonate 800 mg 12/30/17 22:15 01/05/18 18:36 Renvela PO 800 mg TID KATARINA Administration Simethicone 40 mg 01/04/18 18:00 01/05/18 21:15 Mylicon Chew Tab PO 40 mg QID KATARINA Administration Vitamin B Complex/Vit C/Folic Acid 1 tab 12/31/17 10:00 01/05/18 10:00 Nephro-Carlos PO 1 tab DAILY KATARINA Administration Past Psychiatric History - Past Psychiatric History Previous Treatment History: None Pertinent Medical Hx (Current Medical&Sleep Prob, Allergies): Allergies Allergy/AdvReac Type Severity Reaction Status Date / Time No Known Allergies Allergy Verified 12/30/17 13:49 Epoetin Aolnso [Procrit] 10,000 unit IV MWF #0 ml 06/05/16 Menthol/Zinc Oxide [Calmoseptine Ointment] 1 applic TP Q8H 06/14/17 Folic Acid/Vit B Complex and C [Nephro-Carlos Tablet] 0.8 mg PO BID 12/05/17 Glyburide [Micronase] 1 tab PO BID 12/05/17 Isosorbide Mononitrate [Imdur] 60 mg PO DAILY 12/05/17 Lopinavir/Ritonavir [Kaletra 200-50 mg] 1 cap PO BID 12/05/17 Nateglinide [Starlix] 60 mg PO DAILY 12/05/17 Raltegravir Potassium [Isentress] 400 mg PO BID 12/05/17 Sucroferric Oxyhydroxide [Velphoro] 500 mg PO TID 12/05/17 Emtricitabine/Tenofovir Diso [Truvada 200 MG-300 MG] 1 tab PO Q48H tab Vancomycin/0.9 % Sod Chloride [Vanco 1 Gram/150 ml-0.9% NaCl] 1 gm IV MWF #10 plast..bag 12/10/17 ALPRAZolam [Xanax] 0.5 mg PO BID PRN tab 01/06/18 Acetaminophen [Tylenol 325mg tab] 650 mg PO Q6 PRN tab 01/06/18 DULoxetine [Cymbalta] 30 mg PO DAILY ecc 01/06/18 Docusate [Colace] 100 mg PO BID cap 01/06/18 Gabapentin [Neurontin] 100 mg PO TID cap 01/06/18 HYDROmorphone [Dilaudid] 1 mg IVP Q4H PRN #24 cartridge 01/06/18 Heparin 5,000 units SC Q12 vial 01/06/18 Simethicone [Mylicon Chew Tab] 40 mg PO QID chew 01/06/18 Review of Systems - Review of Systems All systems: reviewed and no additional remarkable complaints except - Neurological Neurological: UNREMARKABLE - Psychiatric Psychiatric: Anxiety, Depression, Difficulty Concentrating, Hopelessness. absent: Auditory Hallucinations, Hallucinations, Homicidal Ideation, Paranoia, Suicidal Ideation, Visual Hallucinations, Tactile Hallucinations Mental Status Examination - Personal Presentation Personal Presentation: Looks stated age - Affect Affect: Constricted - Motor Activity Motor Activity: Calm - Reliability in Providing Information Reliability in Providing Information: Fair - Speech Speech: Disorganized - Mood Mood: Depressed, Anxious - Formal Thought Process Formal Thought Process: No Impairment - Cognitive Functions Orientation: Person, Place Sensorium: Alert DSM 5 DX - DSM 5 DSM 5 Diagnosis: Major Depressive Disorder - moderate Generalized anxiety d/o - Recommended/Plan of Treatment Treatment Recommendations and Plan of Treatment: Start Duloxetine Individual therapy Psychoeducation and support Encourage compliance with meds and after care Refer to outpatient program Teach healthy lifestyle methods, i.e. diet, exercise, meditation Smoking cessation 35 min
[2018-01-06 16:17] VITALS: BP 109/70; RESP 20; TEMP 98.3; O2SAT 100
[2018-01-06 16:33] VITALS: PULSE 91
--- NOTE | 2018-01-06 19:57 | CP.PCM.PN ---
Subjective - Date & Time of Evaluation Date of Evaluation: 01/06/18 Time of Evaluation: 13:00 - Subjective Subjective: SEEN ON RENAL F/U SEEN ON HD FOR D/C TO REHAB AFTER HD SEEN BY PSYCH LABS REVIEWED Objective - Vital Signs/Intake and Output Vital Signs (last 24 hours): Temp Pulse Resp BP Pulse Ox 98.3 F 91 H 20 109/70 100 01/06/18 15:16 01/06/18 16:00 01/06/18 15:16 01/06/18 15:16 01/06/18 15:16 - Labs Labs: 01/06/18 11:49 01/06/18 11:49 PT 10.2 SECONDS (9.7-12.2) 12/30/17 15:19 INR 0.9 12/30/17 15:19 APTT 23 SECONDS (21-34) 12/30/17 15:19 Assessment and Plan - Assessment and Plan (Free Text) Assessment: ESRD ON HD M W F ANEMIA OF CKD .. H/H OK S/P L MARCELINO .. DARIANA P : C/O CURRENT CARE C/O PRESENT MANAGEMENT
--- NOTE | 2018-01-09 06:51 | PQF GENQUE ---
This form is a permanent part of the medical record To Bhakti Sinclair MD, Patient is a 57 year old with past Medical of HLD, HTN,ESRD MWF Schedule, DM on Insulin, PVD who cam in to the Hospital 2 weks ago with left Gangreneous foot that she had for 2-3 months. Patient had Left AKA amputation on 01/01/18 Please specify if HIGH/ LOW (Distal) / PROXIMAL AMPUTATION. Thank you, Clarification of your documentation is requested to better reflect the severity of illness and intensity of treatment of your patient. Indicators present [] Specify: [] [] Specify: [] [] Specify: [] [] Specify: [] Location in the medical record that reflects the above clinical findings: [] Treatment Provided: [] PHYSICIAN'S RESPONSE Based on your medical judgment of the clinical indicators outlined above please clarify the following: [] Practitioner response [] If unable to determine, please check the box, sign and date. Present On Admission (POA) Indicator: [] Present at the time of admission [] Not present at the time of admission [] Clinically Undetermined In responding to this query, please exercise your independent professional judgment. The fact that a question is asked does not imply that any particular answer is desired or expected. Thank you for your clarification on this documentation. If you have any questions please call:[ ] * Thank you, [Lakeshia Pacheco, [facility] ] motorcycle delivery driver RICHIE
== END 2018-01-06 17:00 | disposition home or self-care (01) | DRG 239 ==
LOC: C.ER 13:09 → C.9E 16:16 → C.3T 17:35 → C.9E 17:53 → C.6T 18:13
PROVIDERS: ADMIT Internal Medicine; ATTEND Internal Medicine
PROC: 5A1D70Z Performance of Urinary Filtration, Intermittent, Less than 6 Hours Per Day (ICD-10-PCS; principal; 2017-12-30)
PROC: 0Y6D0Z1 Detachment at Left Upper Leg, High, Open Approach (ICD-10-PCS; 2018-01-01)
DX: E11.52 Type 2 diabetes mellitus with diabetic peripheral angiopathy with gangrene (principal); N18.6 End stage renal disease; I13.2 Hypertensive heart and chronic kidney disease with heart failure and with stage 5 chronic kidney disease, or end stage renal disease; I50.22 Chronic systolic (congestive) heart failure; I96 Gangrene, not elsewhere classified; F41.9 Anxiety disorder, unspecified; I95.3 Hypotension of hemodialysis; F60.9 Personality disorder, unspecified; F32.9 Major depressive disorder, single episode, unspecified; F03.90 Unspecified dementia, unspecified severity, without behavioral disturbance, psychotic disturbance, mood disturbance, and anxiety; Z79.4 Long term (current) use of insulin; E11.621 Type 2 diabetes mellitus with foot ulcer; L97.529 Non-pressure chronic ulcer of other part of left foot with unspecified severity; Z99.2 Dependence on renal dialysis; Z86.711 Personal history of pulmonary embolism; E87.6 Hypokalemia; E78.5 Hyperlipidemia, unspecified; E11.22 Type 2 diabetes mellitus with diabetic chronic kidney disease; E03.9 Hypothyroidism, unspecified; K59.00 Constipation, unspecified; Z87.891 Personal history of nicotine dependence; Z89.511 Acquired absence of right leg below knee; Z21 Asymptomatic human immunodeficiency virus [HIV] infection status; D63.1 Anemia in chronic kidney disease; D69.59 Other secondary thrombocytopenia; J44.9 Chronic obstructive pulmonary disease, unspecified; E11.65 Type 2 diabetes mellitus with hyperglycemia

== ENCOUNTER 2018-01-11 18:58 | Emergency (ER) | payer MEDICARE, OTHER ==
[2018-01-11 18:59] VITALS: BMI 29.9
--- NOTE | 2018-01-11 19:22 | C.PDOC ---
History Of Present Illness The patient is brought to the ED by ambulance for evaluation after she slid and fell out of her wheelchair at her snf earlier today. Patient states she fell onto her face, and is able to remember the event. As per her son who is present at bedside, patient is at her baseline mental status. Patient denies loss of consciousness and has no complaints at this time. - HPI Time Seen by Provider: 01/11/18 19:21 Chief Complaint (Nursing): Trauma History Per: Patient, EMS, Family (son ) History/Exam Limitations: no limitations Onset/Duration Of Symptoms: Hrs Severity: None Pain Scale Rating Of: 0 Recent travel outside of the [place]: No Additional History Per: Patient, EMS, Family Past Medical History Reviewed: Historical Data, Nursing Documentation, Vital Signs Vital Signs: Last Vital Signs Temp 97.5 F L 01/11/18 19:08 Pulse 82 01/11/18 20:32 Resp 20 01/11/18 20:32 BP 94/53 L 01/11/18 20:32 Pulse Ox 100 01/11/18 21:16 - Medical History PMH: Anxiety, CHF, Dementia, Diabetes, HIV, HTN, Hyperthyroidism, Hypothyroidism , End Stage Renal Disease, Chronic Kidney Disease Denies: Kidney Stones Surgical History: No Surg Hx - [facility] Procedures (12/30/17) CENTRAL VENOUS CATHETER PLACEMENT WITH GUIDANCE (09/12/13) DETACHMENT AT LEFT UPPER LEG, HIGH, OPEN APPROACH (12/30/17) DILATION OF L FEM ART WITH DRUG-ELUT INTRA, PERC APPROACH (11/28/17) DILATION OF L FEM ART WITH INTRALUM DEV, PERC APPROACH (05/28/17) DILATION OF LEFT ANTERIOR TIBIAL ARTERY, PERC APPROACH (11/28/17) EXCISION OF LEFT FOOT SKIN, EXTERNAL APPROACH (05/28/17) EXTIRPATION OF MATTER FROM L FEM ART, PERC APPROACH (11/28/17) EXTIRPATION OF MATTER FROM L POPL ART, PERC APPROACH (11/28/17) FLUOROSCOPY OF AORTA, BI LE ART USING OTH CONTRAST (05/28/17) FLUOROSCOPY OF RIGHT HEART USING LOW OSMOLAR CONTRAST (05/25/16) HEMODIALYSIS (08/26/14) IMMOBILIZATION OF RIGHT LOWER EXTREMITY USING CAST (05/25/16) IMMOBILIZATION OF RIGHT UPPER LEG USING SPLINT (05/25/16) INSERTION OF INFUSION DEV INTO INF VENA CAVA, PERC APPROACH (04/02/16) INSERTION OF INFUSION DEV INTO R INNOM VEIN, PERC APPROACH (05/28/17) INSERTION OF INFUSION DEV INTO SUP VENA CAVA, PERC APPROACH (12/05/17) INSERTION OF INFUSION DEVICE INTO R ATRIUM, PERC APPROACH (06/19/17) PERFORMANCE OF URINARY FILTRATION, MULTIPLE (05/25/16) PERFORMANCE OF URINARY FILTRATION, SINGLE (02/03/17) REMOVAL OF INFUSION DEVICE FROM LOWER VEIN, PERC APPROACH (04/02/16) REMOVAL OF INFUSION DEVICE FROM UPPER VEIN, PERC APPROACH (12/05/17) REPOSITION RIGHT LOWER FEMUR, EXTERNAL APPROACH (05/25/16) TRANSFUSE NONAUT RED BLOOD CELLS IN PERIPH VEIN, PERC (05/25/16) ULTRASONOGRAPHY OF RIGHT SUBCLAVIAN VEIN, GUIDANCE (06/19/17) Family History: States: Unknown Family Hx - Social History Hx Tobacco Use: Yes (former smoker) Hx Alcohol Use: No Hx Substance Use: No - Immunization History Hx Tetanus Toxoid Vaccination: Yes Hx Influenza Vaccination: Yes Hx Pneumococcal Vaccination: No Review Of Systems Constitutional: Negative for: Fever, Chills Eyes: Negative for: Pain, Vision Change ENT: Negative for: Nose Pain Cardiovascular: Negative for: Chest Pain, Palpitations Respiratory: Negative for: Cough, Shortness of Breath Gastrointestinal: Negative for: Nausea, Vomiting Musculoskeletal: Negative for: Neck Pain Skin: Negative for: Rash, Lesions, Jaundice, Bruising Neurological: Negative for: Weakness, Numbness, Change in Speech, Confusion, Altered Mental Status, Headache, Dizziness, Other (loss of consciousness) Physical Exam - Physical Exam Appears: Non-toxic, No Acute Distress Skin: Warm, Dry Head: Abrasion (0.3cm, superficial, to left scientologist region ) Eye(s): bilateral: Normal Inspection Nose: No Epistaxis, No Deformity, No Tenderness, No Septal Hematoma Oral Mucosa: Moist Teeth: Other (poor dentition) Neck: Supple Chest: Symmetrical, No Deformity, No Tenderness, Other (dialysis port to right chest wall ) Cardiovascular: Rhythm Regular, No Murmur Respiratory: No Rales, No Rhonchi, No Wheezing Gastrointestinal/Abdominal: Soft, No Tenderness, No Distention Back: Normal Inspection Extremity: Other (dialysis graft to left upper extremity. bilateral above-knee amputations, with left amputation recently done. wound is clean and dry. ) Pulses: Left Femoral: Normal, Right Femoral: Normal Neurological/Psych: Oriented x3, Other (at baseline status (as per son at bedside)) Gait: Unable To Assess ED Course And Treatment O2 Sat by Pulse Oximetry: 100 (on RA) Pulse Ox Interpretation: Normal - CT Scan/US CT head Other Rad Studies (CT/US): Read By Radiologist, Radiology Report Reviewed CT/US Interpretation: IMPRESSION: 1. No acute findings. 2. Moderately advanced generalized cortical atrophy with chronic microvascular ischemic changes in. the deep white matter. No change. 3. Chronic deformity related to the floor of the right orbit may be related to previous trauma. Thank you for allowing us to participate in the care of your patient. Dictated and Authenticated by: Lilia Hughes MD. 01/11/2018 8:58 PM Eastern Time ([place] & [place]) CT orbits Other Rad Studies (CT/US): Read By Radiologist, Radiology Report Reviewed CT/US Interpretation: IMPRESSION: [facility]. 1. No acute findings. 2. Multiple missing teeth with periapical bone resorption noted involving the 2 anteriormost remaining. teeth within the maxillary alveolar ridge. No evidence of extraosseous inflammation or abscess. 3. Chronic deformity of the floor of the right orbit suggesting previous trauma. 4. Debris within the right external auditory canal. Direct inspection and clinical correlation suggested. Thank you for allowing us to participate in the care of your patient. Dictated and Authenticated by: Lilia Hughes MD. 01/11/2018 9:11 PM Eastern Time ( [place] & [place]) Progress Note: CT Head and CT Orbits/Facial ordered. Disposition Counseled Patient/Family Regarding: Studies Performed, Diagnosis, Need For Followup - Disposition Referrals: Reji Wallace MD [Staff Provider] - Disposition: HOME/ ROUTINE Disposition Time: 19:21 Condition: FAIR Instructions: Contusion (DC), Minor Head Injury (DC) Forms: [facility] (Albanian) - Clinical Impression Clinical Impression: Fall, Minor head injury without loss of consciousness - Scribe Statement The provider has reviewed the documentation as recorded by the Scribe (Rani Arias) Provider Attestation: All medical record entries made by the Scribe were at my direction and personally dictated by me. I have reviewed the chart and agree that the record accurately reflects my personal performance of the history, physical exam, medical decision making, and the department course for this patient. I have also personally directed, reviewed, and agree with the discharge instructions and disposition.
--- NOTE | 2018-01-11 20:59 | CT ---
EXAM: CT Head Without Intravenous Contrast EXAM DATE/TIME: Exam ordered 01/11/2018 7:28 PM CLINICAL HISTORY: 58 years old, female; Pain; Headache and other: Fall; Patient HX: 07-17-16 TECHNIQUE: Axial computed tomography images of the head/brain without intravenous contrast. All CT scans at this facility use one or more dose reduction techniques, viz.: automated exposure control; ma/kV adjustment per patient size (including targeted exams where dose is matched to indication; i.e. head); or iterative reconstruction technique. COMPARISON: CT - HEAD W/O CONTRAST 2016-07-17 10:23 FINDINGS: Brain: There appears to be herniation of a portion of the extraconal fat and inferior rectus muscle of the right orbit into the right maxillary sinus. There is moderately advanced generalized cortical atrophy. Low density is noted within the periventricular white matter extending into the conley radiata and the centrum semiovale bilaterally. No hemorrhage. Ventricles: There is ventriculomegaly commensurate with the degree of cortical atrophy present.. Bones/joints: Unremarkable. No acute fracture. Soft tissues: Unremarkable. Sinuses: Unremarkable as visualized. No acute sinusitis. Mastoid air cells: Unremarkable as visualized. No mastoid effusion. IMPRESSION: 1. No acute findings. 2. Moderately advanced generalized cortical atrophy with chronic microvascular ischemic changes in the deep white matter. No change. 3. Chronic deformity related to the floor of the right orbit may be related to previous trauma.
--- NOTE | 2018-01-11 21:11 | CT ---
EXAM: CT Temporal Bones Without Intravenous Contrast EXAM DATE/TIME: Exam ordered 01/11/2018 7:28 PM CLINICAL HISTORY: 58 years old, female; Pain; Face pain; Patient HX: 12-14; Additional info: Fall TECHNIQUE: Axial computed tomography images of the temporal bones without intravenous contrast. All CT scans at this facility use one or more dose reduction techniques, viz.: automated exposure control; ma/kV adjustment per patient size (including targeted exams where dose is matched to indication; i.e. head); or iterative reconstruction technique. Coronal and sagittal reformatted images were created and reviewed. COMPARISON: CT - HEAD W/O CONTRAST 2016-07-17 10:23 FINDINGS: Right ossicles and middle ear: Unremarkable. Right cochlea: Unremarkable. Right vestibule: Unremarkable. Right semicircular canals: Unremarkable. Right vestibular and cochlear aqueducts: Unremarkable. Right facial nerve canal: Unremarkable. Right internal auditory canal: Unremarkable. Right external auditory canal: Debris is noted within the right external auditory canal. Right carotid canal: Unremarkable. Right jugular foramen: Unremarkable. Right mastoid air cells: Unremarkable. Right temporomandibular joint: Unremarkable. Left ossicles and middle ear: Unremarkable. Left cochlea: Unremarkable. Left vestibule: Unremarkable. Left semicircular canals: Unremarkable. Left vestibular and cochlear aqueducts: Unremarkable. Left facial nerve canal: Unremarkable. Left internal auditory canal: Unremarkable. Left external auditory canal: Unremarkable. Left carotid canal: See below. Left jugular foramen: Unremarkable. Left mastoid air cells: Unremarkable. Left temporomandibular joint: Unremarkable. Bones/joints: . No acute fracture. Soft tissues: Unremarkable. Vasculature: Calcification is noted of the carotid arteries bilaterally. Orbits: There is a defect noted within the floor of the right orbit. Extraconal fat and a portion of the inferior rectus herniates into the roof of the right maxillary sinus. Dental: There are multiple missing teeth.There is mild bone resorption noted at the root surrounding the roots of the 2 teeth located anteriorly within the maxillary alveolar ridge IMPRESSION: 1. No acute findings. 2. Multiple missing teeth with periapical bone resorption noted involving the 2 anteriormost remaining teeth within the maxillary alveolar ridge. No evidence of extraosseous inflammation or abscess 3. Chronic deformity of the floor of the right orbit suggesting previous trauma 4. Debris within the right external auditory canal. Direct inspection and clinical correlation suggested.
[2018-01-11 23:39] VITALS: BP 102/66; PULSE 100; RESP 19; TEMP 98.9; O2SAT 97
== END 2018-01-11 23:52 | disposition home or self-care (01) ==
LOC: C.ER 18:58
DX: S09.90XA Unspecified injury of head, initial encounter (principal); W05.0XXA Fall from non-moving wheelchair, initial encounter; Y92.129 Unspecified place in nursing home as the place of occurrence of the external cause

== ENCOUNTER 2018-01-22 11:24 | Inpatient (IN) | payer MEDICARE, OTHER ==
[2018-01-22 11:25] VITALS: BMI 29.9
[2018-01-22 12:31] LABS: VENOUS BLOOD GAS BASE EXCESS 9.1 mmol/L (0.0-2.0); VENOUS BLOOD GAS PCO2 53 mmHg (40-60); VENOUS BLOOD GAS PO2 25 mm/Hg (30-55); VENOUS BLOOD PH 7.43 (7.32-7.43)
[2018-01-22] MEDS ORDERED: Cefepime 1 GM in Sodium Chloride 0.9% 50 ML IVPB STA (12:31)
[2018-01-22 12:49] LABS: PROTHROMBIN TIME 11.1 SECONDS (9.7-12.2)
[2018-01-22 12:56] LABS: ALB/GLOB RATIO 0.7 (1.0-2.1); CALCIUM 10.8 mg/dl (8.6-10.4)
[2018-01-22 13:29] LABS: BASO # 0.1 K/uL (0.0-0.2); EOS % 0.1 % (0.0-4.0); NRBC % 0.1 % (0.0-2.0)
[2018-01-22 13:31] LABS: TROPONIN I 0.057 ng/mL (0.00-0.120)
[2018-01-22 13:38] LABS: BASO % 0.8 % (0.0-2.0); LYMPH % 7.3 % (20.0-40.0); MEAN CORPUSCULAR HEMOGLOBIN 30.9 pg (27.0-31.0); MEAN CORPUSCULAR HGB CONC 32.2 g/dL (33.0-37.0); MEAN PLATELET VOLUME 8.3 fL (7.2-11.7); MONO # 1.2 K/uL (0.0-0.8); MONO % 8.7 % (0.0-10.0); NEUT # 11.7 K/uL (1.8-7.0); NEUT % 83.1 % (50.0-75.0); RBC 2.08 Mil/uL (3.80-5.20); RED CELL DISTRIBUTION WIDTH 22.3 % (11.5-14.5)
[2018-01-22 13:41] LABS: HEMOGLOBIN 6.4 g/dL (11.0-16.0); MEAN CELL VOLUME 96.1 fL (81.0-99.0); PLATELET COUNT 307 K/uL (130-400)
--- NOTE | 2018-01-22 13:47 | C.PDOC ---
Time Seen by Provider: 01/22/18 12:16 Chief Complaint (Nursing): Abnormal Skin Integrity Past Medical History Vital Signs: Last Vital Signs Temp 102.5 F H 01/22/18 12:04 Pulse 107 H 01/22/18 11:31 Resp 20 01/22/18 11:31 BP 98/48 L 01/22/18 11:31 Pulse Ox 99 01/22/18 11:31 - Medical History PMH: Anxiety, CHF, Dementia, Diabetes, HIV, HTN, Hyperthyroidism, Hypothyroidism , End Stage Renal Disease, Chronic Kidney Disease Denies: Kidney Stones Surgical History: - [facility] Procedures (12/30/17) CENTRAL VENOUS CATHETER PLACEMENT WITH GUIDANCE (09/12/13) DETACHMENT AT LEFT UPPER LEG, HIGH, OPEN APPROACH (12/30/17) DILATION OF L FEM ART WITH DRUG-ELUT INTRA, PERC APPROACH (11/28/17) DILATION OF L FEM ART WITH INTRALUM DEV, PERC APPROACH (05/28/17) DILATION OF LEFT ANTERIOR TIBIAL ARTERY, PERC APPROACH (11/28/17) EXCISION OF LEFT FOOT SKIN, EXTERNAL APPROACH (05/28/17) EXTIRPATION OF MATTER FROM L FEM ART, PERC APPROACH (11/28/17) EXTIRPATION OF MATTER FROM L POPL ART, PERC APPROACH (11/28/17) FLUOROSCOPY OF AORTA, BI LE ART USING OTH CONTRAST (05/28/17) FLUOROSCOPY OF RIGHT HEART USING LOW OSMOLAR CONTRAST (05/25/16) HEMODIALYSIS (08/26/14) IMMOBILIZATION OF RIGHT LOWER EXTREMITY USING CAST (05/25/16) IMMOBILIZATION OF RIGHT UPPER LEG USING SPLINT (05/25/16) INSERTION OF INFUSION DEV INTO INF VENA CAVA, PERC APPROACH (04/02/16) INSERTION OF INFUSION DEV INTO R INNOM VEIN, PERC APPROACH (05/28/17) INSERTION OF INFUSION DEV INTO SUP VENA CAVA, PERC APPROACH (12/05/17) INSERTION OF INFUSION DEVICE INTO R ATRIUM, PERC APPROACH (06/19/17) PERFORMANCE OF URINARY FILTRATION, MULTIPLE (05/25/16) PERFORMANCE OF URINARY FILTRATION, SINGLE (02/03/17) REMOVAL OF INFUSION DEVICE FROM LOWER VEIN, PERC APPROACH (04/02/16) REMOVAL OF INFUSION DEVICE FROM UPPER VEIN, PERC APPROACH (12/05/17) REPOSITION RIGHT LOWER FEMUR, EXTERNAL APPROACH (05/25/16) TRANSFUSE NONAUT RED BLOOD CELLS IN PERIPH VEIN, PERC (05/25/16) ULTRASONOGRAPHY OF RIGHT SUBCLAVIAN VEIN, GUIDANCE (06/19/17) Family History: States: Unknown Family Hx - Social History Hx Tobacco Use: Yes (former smoker) Hx Alcohol Use: No Hx Substance Use: No - Immunization History Hx Tetanus Toxoid Vaccination: Yes Hx Influenza Vaccination: Yes Hx Pneumococcal Vaccination: No ED Course And Treatment - Laboratory Results Result Diagrams: 01/22/18 13:10 01/22/18 12:20 O2 Sat by Pulse Oximetry: [address] Aakash Regan Doctor Will See Patient In The: Hospital Counseled Patient/Family Regarding: Studies Performed, Diagnosis - Disposition Referrals: Rajinder Machado MD [Staff Provider] - Disposition: HOSPITALIZED Disposition Time: 13:47 Condition: FAIR Forms: [facility] (Jordanian) - Clinical Impression Clinical Impression: Cellulitis, Hypotension, GI bleed
--- NOTE | 2018-01-22 13:52 | CP.PCM.HP ---
History of Present Illness - History of Present Illness History of Present Illness: Medicine H&P CC: Left foot necrosis FULL CODE Son Dilip Health Care Proxy [phone] HPI: This 58yo F with PMHx of recent L AKA 2/2 Dry [place], HLD, HTN, HIV ( undetectable), ESRD on dialysis MWF, DM (on insulin), PAD - is brought to the emergency department from her [facility] with complaints of a fever, weakness , fatigue, and AMS for several days. She had followup with Dr. Sinclair 2 days ago on 01/20/18, who advised the patient to return to [facility] based on the appearance of her L AKA. In the ED, the patient is extremely altered and lethargic during exam, and history is provided by her son Dilip. He admits that she is typically AAOx3, however over the past 5 days, she has been increasingly more confused and lethargic, with decreased appetite and oral intake. She is on dialysis MWF, and her last session was 01/20, although it was stopped early because the patient became very agitated and began to scream. She has been receiving Vanco 1Gm IV MWF with dialysis. She was last discharge from [facility] to [facility] on 01/06/18. She returned to the ED on 01/11/18 after falling out of her wheelchair, and striking her face. CT head and CT orbit at that time were negative and she returned to [facility] for ongoing treatment. Further ROS unobtainable due to the patients mental status and inability to respond. ED Course - Pt was hypotensive, anemic with Hgb 6.4, and unresponsive to a bolus of NS 0.9 at 500cc. She received Vanco 1Gm IVPB, Cefepime 1Gm IVPB, Tylenol 650mg supp, and was type/crossed. She was sent immediately to the ICU for further care. PMHx: uncontrolled DM, HTN, HLD, HIV, PAD, chronic heel ulcers, ESRD on HD [facility] Allergies: None Surgeries: Right BKA amputation, multiple placements for vascular access for dialysis Medications: Isentress 400mg BID, Starlix 60mg daily, metroprolol 25mg BID, procrit 10k IV MWF, isorbide mononitrate 60mg PO daily, Lopinavir/Ritonavir 200- 50 PO BID, Toprol 25mg BID, Iron pills 500mg PO TID, Vit B complex, Folic Acid Social: Lives with son, does not walk at baseline (amputation of the right extrem below the knee most recently), former smoker Present on Admission - Present on Admission Any Indicators Present on Admission: No Review of Systems - Review of Systems Systems not reviewed;Unavailable: Acuity of Condition, Altered Mental Status Past Patient History - Infectious Disease Hx of Infectious Diseases: None - Past Medical History & Family History Past Medical History?: Yes - Past Social History Smoking Status: Never Smoked - CARDIAC Hx Congestive Heart Failure: Yes Hx Hypertension: Yes - PULMONARY Hx Respiratory Disorders: No - NEUROLOGICAL Hx Dementia: Yes - HEENT Hx HEENT Problems: Yes (wears glasses) Hx Glaucoma: Yes - RENAL Hx Chronic Kidney Disease: Yes Hx Kidney Stones: No - ENDOCRINE/METABOLIC Hx Hyperthyroidism: Yes Hx Hypothyroidism: Yes - HEMATOLOGICAL/ONCOLOGICAL Hx Human Immunodeficiency Virus (HIV): Yes - INTEGUMENTARY Hx Dermatological Problems: No - MUSCULOSKELETAL/RHEUMATOLOGICAL Hx Falls: Yes - GASTROINTESTINAL Hx Gastrointestinal Disorders: No - GENITOURINARY/GYNECOLOGICAL Hx Genitourinary Disorders: Yes Other/Comment: oliguria, on hemodialysis MWF - PSYCHIATRIC Hx Anxiety: Yes Hx Substance Use: No - SURGICAL HISTORY Hx Amputation: Yes (Right BKA/ LEFT BKA) Other/Comment: vascular sx LLE - ANESTHESIA Hx Anesthesia: Yes Hx Anesthesia Reactions: No Hx Malignant Hyperthermia: No Meds Allergies/Adverse Reactions: Allergies Allergy/AdvReac Type Severity Reaction Status Date / Time No Known Allergies Allergy Verified 01/22/18 11:38 Physical Exam - Additional Findings Additional findings: - Constitutional Appears: Non-toxic, Older Than Stated Age, Chronically Ill - Head Exam Head Exam: ATRAUMATIC - Eye Exam Eye Exam: absent: PERRL (left eye white, glaucoma, blind in left eye; right eye EOMI ) - ENT Exam ENT Exam: Mucous Membranes Moist - Neck Exam Neck exam: Positive for: Full Rom. Negative for: Lymphadenopathy - Respiratory Exam Respiratory Exam: Clear to Auscultation Bilateral, Decreased Breath Sounds. absent: Rales, Rhonchi, Wheezes -shallow respirations - Cardiovascular Exam Cardiovascular Exam: Tachycardic, +S1, +S2; absent: murmurs, palpitations - GI/Abdominal Exam GI & Abdominal Exam: Decreased Bowel Sounds, Soft. absent: Tenderness - Extremities Exam Extremities exam: -Right BKA, well healed scar, no ulcers noted; -Left AKA, tenderness to palpation, stump infection with necrotic tissue at the surgical site and medial AKA (necrotic tissue extends 1/3 up the length of the thigh in a 3 inch band -the L thigh is 1.5x the diameter of the R - Back Exam Back exam: NORMAL INSPECTION. absent: CVA tenderness (L), CVA tenderness (R) - Neurological Exam Neurological exam: lethargic - Skin Skin Exam: Warm, dry; Right chest permacath Results - Vital Signs Recent Vital Signs: Last Vital Signs Temp 102.5 F H 01/22/18 12:04 Pulse 107 H 01/22/18 11:31 Resp 20 01/22/18 11:31 BP 98/48 L 01/22/18 11:31 Pulse Ox 99 01/22/18 13:47 - Labs Result Diagrams: 01/22/18 13:10 01/22/18 12:20 Labs: Laboratory Results - last 24 hr 01/22/18 01/22/18 01/22/18 11:32 12:20 12:20 WBC RBC Hgb Hct MCV MCH MCHC RDW Plt Count MPV Neut % (Auto) Lymph % (Auto) Loving % (Auto) Eos % (Auto) Baso % (Auto) Neut # (Auto) Lymph # (Auto) Loving # (Auto) Eos # (Auto) Baso # (Auto) PT 11.1 INR 1.0 APTT 27 pO2 VBG pH VBG pCO2 VBG HCO3 VBG Total CO2 VBG O2 Sat (Calc) VBG Base Excess VBG Potassium Glucose Lactate Sodium 140 Potassium 3.5 L Chloride 96 L Carbon Dioxide 34 H Anion Gap 13 BUN 35 H Creatinine 4.4 H Est GFR ( Amer) 13 Est GFR (Non-Af Amer) 10 POC Glucose (mg/dL) 165 H Random Glucose 155 H Calcium 10.8 H Magnesium Total Bilirubin 0.7 AST 35 ALT 20 Alkaline Phosphatase 133 H D Total Creatine Kinase Troponin I Total Protein 7.5 Albumin 3.0 L Globulin 4.5 H Albumin/Globulin Ratio 0.7 L Venous Blood Potassium Blood Type Antibody Screen 01/22/18 01/22/18 01/22/18 12:26 12:51 13:02 WBC RBC Hgb Hct MCV MCH MCHC RDW Plt Count MPV Neut % (Auto) Lymph % (Auto) Loving % (Auto) Eos % (Auto) Baso % (Auto) Neut # (Auto) Lymph # (Auto) Loving # (Auto) Eos # (Auto) Baso # (Auto) PT INR APTT pO2 25 L VBG pH 7.43 VBG pCO2 53 VBG HCO3 30.7 VBG Total CO2 36.8 H VBG O2 Sat (Calc) 61.2 VBG Base Excess 9.1 H VBG Potassium 3.4 L Glucose 162 H Lactate 1.1 Sodium 139.0 Potassium Chloride 107.0 Carbon Dioxide Anion Gap BUN Creatinine Est GFR ( Amer) Est GFR (Non-Af Amer) POC Glucose (mg/dL) Random Glucose Calcium Magnesium 2.6 H Total Bilirubin AST ALT Alkaline Phosphatase Total Creatine Kinase 158 H Troponin I 0.0570 Total Protein Albumin Globulin Albumin/Globulin Ratio Venous Blood Potassium 3.4 L Blood Type B POSITIVE Antibody Screen Negative 01/22/18 13:10 WBC 14.0 H RBC 2.08 L Hgb 6.4 L* D Hct 20.0 L MCV 96.1 D MCH 30.9 MCHC 32.2 L RDW 22.3 H Plt Count 307 D MPV 8.3 Neut % (Auto) 83.1 H Lymph % (Auto) 7.3 L Loving % (Auto) 8.7 Eos % (Auto) 0.1 Baso % (Auto) 0.8 Neut # (Auto) 11.7 H Lymph # (Auto) 1.0 Loving # (Auto) 1.2 H Eos # (Auto) 0.0 Baso # (Auto) 0.1 PT INR APTT pO2 VBG pH VBG pCO2 VBG HCO3 VBG Total CO2 VBG O2 Sat (Calc) VBG Base Excess VBG Potassium Glucose Lactate Sodium Potassium Chloride Carbon Dioxide Anion Gap BUN Creatinine Est GFR ( Amer) Est GFR (Non-Af Amer) POC Glucose (mg/dL) Random Glucose Calcium Magnesium Total Bilirubin AST ALT Alkaline Phosphatase Total Creatine Kinase Troponin I Total Protein Albumin Globulin Albumin/Globulin Ratio Venous Blood Potassium Blood Type Antibody Screen Assessment & Plan - Assessment and Plan (Free Text) Assessment: Sepsis likely 2/2 Surgical Site Infection of L AKA Hx of R BKA s/p left AKA (on 01/01/18) * Vascular surgery consulted- Dr. Sinclair * ID consulted- Dr. Villegas. * Cardiac clearance-> Dr. Collins consulted * prior Lexiscan 12/31/17: no stress induced ischemia; EF 45-55%. * f/u wound culture * f/u blood culture * f/u urine culture * f/u Vanco trough on 01/29/18 before HD * Vanco 1gm IV MWF * Zosyn 2.25g IV Q6H * L Femur XR 01/22: Status post [id number] amputation, well-circumscribed round osteolytic area in the distal femur proximal to the amputation is nonspecific, the differential considerations include Addi's abscess, benign and malignant neoplasm. MRI of the femur without and with intravenous contrast would be helpful for further characterization. see full report * MRI with and w/o contrast to be arranged by Nephrology once pt more stable Hypotension * BP 98/48 on admission, did not respond to 500cc fluid bolus * If no response to additional fluids / blood products in ICU, start levophed. * CXR 01/22: no active pulm dz, see full report. Anemia * Hgb 6.4 on admission * f/u stool occult blood * type and cross * patient to be transfused 2u PRBC over 4hrs * tylenol 650mg and Benadryl 25mg prior to transfusion. Hx of Systolic CHF (HFrEF) * heart failure with reduced EF * Echo (12/05/17): EF 30-35% * Cardiology consulted- Dr. Collins * Lexiscan 12/31/17: no stress induced ischemia; EF 45-55%. * Continue to monitor. * Hold Imdur 60mg PO qd * Hold Metroprolol 25mg PO BID End stage renal disease on dialysis * ESRD on HD: MWF schedule * Nephrology consulted- Dr. Dominguez * Continue nephrovite and Renvela HTN (hypertension)--> currently hypotensive * Hold Imdur 60mg PO qd * Hold Metroprolol 25mg PO BID * Continue to monitor Diabetes * A1c (11/29/17): 5.8 * Accuchecks * ISS (will hold home diabetic medications) * Hypoglycemic protocol HIV (human immunodeficiency virus infection) * Continue home medication: Truvada 1tab PO daily, Issentriss 400mg PO BID * CD4 count (12/05/17): 143 * Viral load (12/05/17): not detected * ID consulted, Dr. Villegas. Hx HLD * Lipid panel from 11/29/17: TG 116 Chol 131 LDL 49 HDL 29 Hx Constipation * Colace 100mg PO BID * Dulcolax 10mg ND PRN * Simethicone Hx Anxiety * HOLD Xanax 0.25mg PO PRN Hx Thrombocytopenia * pt developed thrombocytopenia on prior adimssion 12/30-01/06/18. * Hold chemical anticoagulation * Monitor Prophylactic measure * DVT: Hold chemical anticoag * Full Code * Protonix 40mg IVP qD * NPO for likely surgery tomorrow 01/23. * Patient's son Dilip Zhong is unofficial health proxy; his phone number to contact [phone] Julianna Arias - Date & Time Date: 01/22/18 Time: 13:52
[2018-01-22] MEDS ORDERED: Vancomycin 1 gm/NS 200 ml 1 GM/200 ML BAG IVPB ONE (14:00)
--- NOTE | 2018-01-22 14:01 | CP.PCM.CON ---
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 She had followup with Dr. Sinclair 2 days ago on 01/20/18, who advised the patient to return to [facility] based on the appearance of her L AKA. In the ED, the patient is extremely altered and lethargic during exam, and history is provided by her son Dilip. He admits that she is typically AAOx3, however over the past 5 days, she has been increasingly more confused and lethargic, with decreased appetite and oral intake. She is on dialysis MWF, and her last session was 01/20, although it was stopped early because the patient became very agitated and began to scream. She has been receiving Vanco 1Gm IV MWF with dialysis. She was last discharge from [facility] to [facility] on 01/06/18. She returned to the ED on 01/11/18 after falling out of her wheelchair, and striking her face. CT head and CT orbit at that time were negative and she returned to [facility] for ongoing treatment. Further ROS unobtainable due to the patients mental status and inability to respond. ED Course - pt received Vanco 1Gm IVPB, Cefepime 1Gm IVPB, and Tylenol 650mg supp. She was given a bolus of NS 0.9 at 500cc, but her BP did not respond. She was sent immediately to the ICU for further care. PMHx: uncontrolled DM, HTN, HLD, HIV, PAD, chronic heel ulcers, ESRD on HD [facility] Allergies: None Surgeries: Right BKA amputation, multiple placements for vascular access for dialysis Medications: Isentress 400mg BID, Starlix 60mg daily, metroprolol 25mg BID, procrit 10k IV MWF, isorbide mononitrate 60mg PO daily, Lopinavir/Ritonavir 200- 50 PO BID, Toprol 25mg BID, Iron pills 500mg PO TID, Vit B complex, Folic Acid Social: Lives with son, does not walk at baseline (amputation of the right extrem below the knee most recently), former smoker FULL CODE Son Dilip Health Care Proxy [phone] Past Patient History - Infectious Disease Hx of Infectious Diseases: None - Past Medical History & Family History Past Medical History?: Yes - Past Social History Smoking Status: Never Smoked - CARDIAC Hx Congestive Heart Failure: Yes Hx Hypertension: Yes - PULMONARY Hx Respiratory Disorders: No - NEUROLOGICAL Hx Dementia: Yes - HEENT Hx HEENT Problems: Yes (wears glasses) Hx Glaucoma: Yes - RENAL Hx Chronic Kidney Disease: Yes Hx Kidney Stones: No - ENDOCRINE/METABOLIC Hx Hyperthyroidism: Yes Hx Hypothyroidism: Yes - HEMATOLOGICAL/ONCOLOGICAL Hx Human Immunodeficiency Virus (HIV): Yes - INTEGUMENTARY Hx Dermatological Problems: No - MUSCULOSKELETAL/RHEUMATOLOGICAL Hx Falls: Yes - GASTROINTESTINAL Hx Gastrointestinal Disorders: No - GENITOURINARY/GYNECOLOGICAL Hx Genitourinary Disorders: Yes Other/Comment: oliguria, on hemodialysis MWF - PSYCHIATRIC Hx Anxiety: Yes Hx Substance Use: No - SURGICAL HISTORY Hx Amputation: Yes (Right BKA/ LEFT BKA) Other/Comment: vascular sx LLE - ANESTHESIA Hx Anesthesia: Yes Hx Anesthesia Reactions: No Hx Malignant Hyperthermia: No Meds Allergies/Adverse Reactions: Allergies Allergy/AdvReac Type Severity Reaction Status Date / Time No Known Allergies Allergy Verified 01/22/18 11:38 - Medications Medications: Current Medications Vancomycin/Sodium Chloride (Vancomycin 1 Gm/Ns 200 Ml) 1 gm in 200 mls @ 133.333 mls/hr IVPB ONCE ONE PRN Reason: Protocol Stop: 01/22/18 15:29 Cefepime HCl 1 gm/ Sodium (Chloride) 50 mls @ 100 mls/hr IVPB ONCE ONE PRN Reason: Protocol Stop: 01/22/18 16:29 Physical Exam - Constitutional Appears: Toxic - Head Exam Head Exam: ATRAUMATIC, NORMAL INSPECTION, NORMOCEPHALIC - Eye Exam Eye Exam: EOMI, Normal appearance, PERRL Pupil Exam: NORMAL ACCOMODATION - ENT Exam ENT Exam: Mucous Membranes Dry - Respiratory Exam Respiratory Exam: Clear to Auscultation Bilateral - Cardiovascular Exam Cardiovascular Exam: Tachycardia Additional comments: Right permacath noted - GI/Abdominal Exam GI & Abdominal Exam: Normal Bowel Sounds, Soft. absent: Distended, Tenderness - Extremities Exam Additional comments: left AVF - no thrill noted -Right BKA, well healed scar, no ulcers noted; -Left AKA, tenderness to palpation, stump infection with necrotic tissue at the surgical site and medial AKA (necrotic tissue extends 1/3 up the length of the thigh in a 3 inch band -the L thigh is 1.5x the diameter of the R - Neurological Exam Neurological exam: Alert - Skin Skin Exam: Dry, Normal Color, Warm Results - Vital Signs Recent Vital Signs: Last Vital Signs Temp 102.5 F H 01/22/18 12:04 Pulse 107 H 01/22/18 11:31 Resp 20 01/22/18 11:31 BP 98/48 L 01/22/18 11:31 Pulse Ox 99 01/22/18 13:47 - Labs Result Diagrams: 01/22/18 13:10 01/22/18 12:20 Labs: Laboratory Results - last 24 hr 01/22/18 01/22/18 01/22/18 11:32 12:20 12:20 WBC RBC Hgb Hct MCV MCH MCHC RDW Plt Count MPV Neut % (Auto) Lymph % (Auto) Noble % (Auto) Eos % (Auto) Baso % (Auto) Neut # (Auto) Lymph # (Auto) Noble # (Auto) Eos # (Auto) Baso # (Auto) PT 11.1 INR 1.0 APTT 27 pO2 VBG pH VBG pCO2 VBG HCO3 VBG Total CO2 VBG O2 Sat (Calc) VBG Base Excess VBG Potassium Glucose Lactate Sodium 140 Potassium 3.5 L Chloride 96 L Carbon Dioxide 34 H Anion Gap 13 BUN 35 H Creatinine 4.4 H Est GFR ( Amer) 13 Est GFR (Non-Af Amer) 10 POC Glucose (mg/dL) 165 H Random Glucose 155 H Calcium 10.8 H Magnesium Total Bilirubin 0.7 AST 35 ALT 20 Alkaline Phosphatase 133 H D Total Creatine Kinase Troponin I Total Protein 7.5 Albumin 3.0 L Globulin 4.5 H Albumin/Globulin Ratio 0.7 L Venous Blood Potassium Blood Type Antibody Screen 01/22/18 01/22/18 01/22/18 12:26 12:51 13:02 WBC RBC Hgb Hct MCV MCH MCHC RDW Plt Count MPV Neut % (Auto) Lymph % (Auto) Noble % (Auto) Eos % (Auto) Baso % (Auto) Neut # (Auto) Lymph # (Auto) Noble # (Auto) Eos # (Auto) Baso # (Auto) PT INR APTT pO2 25 L VBG pH 7.43 VBG pCO2 53 VBG HCO3 30.7 VBG Total CO2 36.8 H VBG O2 Sat (Calc) 61.2 VBG Base Excess 9.1 H VBG Potassium 3.4 L Glucose 162 H Lactate 1.1 Sodium 139.0 Potassium Chloride 107.0 Carbon Dioxide Anion Gap BUN Creatinine Est GFR ( Amer) Est GFR (Non-Af Amer) POC Glucose (mg/dL) Random Glucose Calcium Magnesium 2.6 H Total Bilirubin AST ALT Alkaline Phosphatase Total Creatine Kinase 158 H Troponin I 0.0570 Total Protein Albumin Globulin Albumin/Globulin Ratio Venous Blood Potassium 3.4 L Blood Type B POSITIVE Antibody Screen Negative 01/22/18 13:10 WBC 14.0 H RBC 2.08 L Hgb 6.4 L* D Hct 20.0 L MCV 96.1 D MCH 30.9 MCHC 32.2 L RDW 22.3 H Plt Count 307 D MPV 8.3 Neut % (Auto) 83.1 H Lymph % (Auto) 7.3 L Noble % (Auto) 8.7 Eos % (Auto) 0.1 Baso % (Auto) 0.8 Neut # (Auto) 11.7 H Lymph # (Auto) 1.0 Noble # (Auto) 1.2 H Eos # (Auto) 0.0 Baso # (Auto) 0.1 PT INR APTT pO2 VBG pH VBG pCO2 VBG HCO3 VBG Total CO2 VBG O2 Sat (Calc) VBG Base Excess VBG Potassium Glucose Lactate Sodium Potassium Chloride Carbon Dioxide Anion Gap BUN Creatinine Est GFR ( Amer) Est GFR (Non-Af Amer) POC Glucose (mg/dL) Random Glucose Calcium Magnesium Total Bilirubin AST ALT Alkaline Phosphatase Total Creatine Kinase Troponin I Total Protein Albumin Globulin Albumin/Globulin Ratio Venous Blood Potassium Blood Type Antibody Screen Assessment & Plan - Assessment and Plan (Free Text) Assessment: This is a 58 year old female with PMHx of 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 Plan: Neuro: A: AMS - Likely 2/2 sepsis Cardio: A: Hypotension - s/p 500cc bolus - Will give 2 units of PRBCs - If continued hypotension - will start on pressors A: HF with rEF Systolic Dysfunction - Echo (12/05/17): EF 30-35% - Lexiscan scheduled for 12/31/17: no stress induced ischemia; EF 45-55% A: Hx Hypertension, HLD - Imdur 60mg PO daily and Metoprolol 25mg PO BID- HELD due to sepsis - Lipid panel from 11/29/17: TG 116 Chol 131 LDL 49 HDL 29 GI: A: Hx Constipation - Colace 100mg PO BID, Dulcolax PRN Endo: A: T2DM - Accuchecks - A1c (11/29/17): 5.8 - ISS - low - Hypoglycemic Protocol Renal: A: ESRD on HD MWF with R permacath, failed L AVF??, oliguria -- Nephrology consulted Dr. Dominguez/ Pooja - Restarted Nephrovite and Renvela Heme/Onc: A: Anemia, anemia of chronic disease - Baseline hemoglobin 9-10s - 6.4 on admission - Will be transfused 2 units PRBCs 01/22 A: HIV -- Dr. Villegas Consulted - Restarted Truvada Q48H - CD4 count (12/05/17): 143 - Viral load (12/05/17): not detected ID: A: Sepsis -- Dr. Sinclair consulted -- Dr. Villegas consulted - S/P Left AKA on 01/01/18 - nonhhealing - Lactate 1.1, repeat - Started Vanco 1 gram MWF, Zosyn Q6H (renally)- F/U vanco random, trough - Tylenol, dilaudid PRN for pain - F/U oliveira cultures Prophylaxis: - Protonix - SCDs, VTE c/i due to anemia - PT /OT - NPO for now 2/2 lethargy, AMS _ FULL CODE - Will attempt to place TLC - Son Dilip Zhong is unofficial health proxy; his phone number to contact [phone] Virginia Braker DO, PGY-1 <Rajinder Machado - Last Filed: 01/22/18 17:05> Meds - Medications Medications: Current Medications Acetaminophen (Tylenol 325mg Tab) 650 mg PO Q6 PRN PRN Reason: Fever >100.4 F Acetaminophen (Tylenol 325mg Tab) 650 mg PO Q6 PRN PRN Reason: Pain, Mild (1-3) Bisacodyl (Dulcolax) 10 mg WI ONCE PRN PRN Reason: Constipation Dextrose (Dextrose 50% Inj) 0 ml IV STAT PRN; Protocol PRN Reason: Hypoglycemia Protocol Dextrose (Glutose 15) 0 gm PO ONCE PRN; Protocol PRN Reason: Hypoglycemia Protocol Docusate Sodium (Colace) 100 mg PO BID KATARINA Emtricitabine/Tenofovir (Truvada 200 Mg-300 Mg) 1 tab PO Q48H KATARINA PRN Reason: Protocol Epoetin Alonso (Procrit) 10,000 unit IV MWF [facility] Glucagon (Glucagen Diagnostic Kit) 0 mg IM STAT PRN; Protocol PRN Reason: Hypoglycemia Protocol Hydromorphone HCl (Dilaudid) 1 mg IVP Q6H PRN PRN Reason: Pain, severe (8-10) Hydromorphone HCl (Dilaudid) 0.5 mg IVP Q4H PRN PRN Reason: Pain, moderate (4-7) Vancomycin/Sodium Chloride (Vancomycin 1 Gm/Ns 200 Ml) 1 gm in 200 mls @ 133 mls/hr IVPB MWF [facility] PRN Reason: Protocol Stop: 01/29/18 09:01 Amikacin Sulfate 500 mg/ (Sodium Chloride) 102 mls @ 204 mls/hr IVPB ONCE ONE PRN Reason: Protocol Stop: 01/22/18 17:29 Piperacillin Sod/Tazobactam Sod (Zosyn 2.25 Gm Iv Premix) 2.25 gm in 50 mls @ 100 mls/hr IVPB Q6H KATARINA PRN Reason: Protocol Dextrose (Dextrose 5% In Water 1000 Ml) 1,000 mls @ 0 mls/hr IV .Q0M PRN; Protocol; Per Protocol PRN Reason: Hypoglycemia Protocol Insulin Human Regular (Novolin R) 0 unit SC Q6H KATARINA PRN Reason: Protocol Pantoprazole Sodium (Protonix Inj) 40 mg IVP DAILY [facility] Sevelamer Carbonate (Renvela) 800 mg PO TID KATARINA Simethicone (Mylicon Chew Tab) 80 mg PO QID [facility] Vitamin B Complex/Vit C/Folic Acid (Nephro-Carlos) 1 tab PO DAILY [facility] Results - Vital Signs Recent Vital Signs: Last Vital Signs Temp 100.4 F H 01/22/18 15:42 Pulse 85 01/22/18 16:12 Resp 27 H 01/22/18 16:12 BP 83/35 L 01/22/18 16:12 Pulse Ox 100 01/22/18 16:12 - Labs Result Diagrams: 01/22/18 13:10 01/22/18 12:20 Labs: Laboratory Results - last 24 hr 01/22/18 01/22/18 01/22/18 11:32 12:20 12:20 WBC RBC Hgb Hct MCV MCH MCHC RDW Plt Count MPV Neut % (Auto) Lymph % (Auto) Noble % (Auto) Eos % (Auto) Baso % (Auto) Neut # (Auto) Lymph # (Auto) Noble # (Auto) Eos # (Auto) Baso # (Auto) Neutrophils % (Manual) Band Neutrophils % Lymphocytes % (Manual) Monocytes % (Manual) Platelet Estimate Polychromasia Hypochromasia (manual) Anisocytosis (manual) PT 11.1 INR 1.0 APTT 27 Puncture Site pCO2 pO2 HCO3 ABG pH ABG Total CO2 ABG O2 Saturation ABG Base Excess Sedrick Test ABG Potassium VBG pH VBG pCO2 VBG HCO3 VBG Total CO2 VBG O2 Sat (Calc) VBG Base Excess VBG Potassium A-a O2 Difference Respiratory Index Glucose Lactate Liter Flow FiO2 Crit Value Called To Crit Value Called By Crit Value Read Back Blood Gas Notified Time Sodium 140 Potassium 3.5 L Chloride 96 L Carbon Dioxide 34 H Anion Gap 13 BUN 35 H Creatinine 4.4 H Est GFR ( Amer) 13 Est GFR (Non-Af Amer) 10 POC Glucose (mg/dL) 165 H Random Glucose 155 H Calcium 10.8 H Magnesium Total Bilirubin 0.7 AST 35 ALT 20 Alkaline Phosphatase 133 H D Total Creatine Kinase Troponin I Total Protein 7.5 Albumin 3.0 L Globulin 4.5 H Albumin/Globulin Ratio 0.7 L Arterial Blood Potassium Venous Blood Potassium Blood Type Antibody Screen 01/22/18 01/22/18 01/22/18 12:26 12:51 13:02 WBC RBC Hgb Hct MCV MCH MCHC RDW Plt Count MPV Neut % (Auto) Lymph % (Auto) Noble % (Auto) Eos % (Auto) Baso % (Auto) Neut # (Auto) Lymph # (Auto) Noble # (Auto) Eos # (Auto) Baso # (Auto) Neutrophils % (Manual) Band Neutrophils % Lymphocytes % (Manual) Monocytes % (Manual) Platelet Estimate Polychromasia Hypochromasia (manual) Anisocytosis (manual) PT INR APTT Puncture Site pCO2 pO2 25 L HCO3 ABG pH ABG Total CO2 ABG O2 Saturation ABG Base Excess Sedrick Test ABG Potassium VBG pH 7.43 VBG pCO2 53 VBG HCO3 30.7 VBG Total CO2 36.8 H VBG O2 Sat (Calc) 61.2 VBG Base Excess 9.1 H VBG Potassium 3.4 L A-a O2 Difference Respiratory Index Glucose 162 H Lactate 1.1 Liter Flow FiO2 Crit Value Called To Crit Value Called By Crit Value Read Back Blood Gas Notified Time Sodium 139.0 Potassium Chloride 107.0 Carbon Dioxide Anion Gap BUN Creatinine Est GFR ( Amer) Est GFR (Non-Af Amer) POC Glucose (mg/dL) Random Glucose Calcium Magnesium 2.6 H Total Bilirubin AST ALT Alkaline Phosphatase Total Creatine Kinase 158 H Troponin I 0.0570 Total Protein Albumin Globulin Albumin/Globulin Ratio Arterial Blood Potassium Venous Blood Potassium 3.4 L Blood Type B POSITIVE Antibody Screen Negative 01/22/18 01/22/18 01/22/18 13:10 15:50 16:34 WBC 14.0 H RBC 2.08 L Hgb 6.4 L* D Hct 20.0 L MCV 96.1 D MCH 30.9 MCHC 32.2 L RDW 22.3 H Plt Count 307 D MPV 8.3 Neut % (Auto) 83.1 H Lymph % (Auto) 7.3 L Noble % (Auto) 8.7 Eos % (Auto) 0.1 Baso % (Auto) 0.8 Neut # (Auto) 11.7 H Lymph # (Auto) 1.0 Noble # (Auto) 1.2 H Eos # (Auto) 0.0 Baso # (Auto) 0.1 Neutrophils % (Manual) 76 H Band Neutrophils % 12 H* Lymphocytes % (Manual) 6 L Monocytes % (Manual) 6 Platelet Estimate Normal Polychromasia Slight Hypochromasia (manual) Slight Anisocytosis (manual) Slight PT INR APTT Puncture Site Dcath pCO2 49 H pO2 37 L* HCO3 29.6 H ABG pH 7.43 ABG Total CO2 34.0 H ABG O2 Saturation 80.9 L ABG Base Excess 6.9 H Sedrick Test Na ABG Potassium 3.1 L VBG pH VBG pCO2 VBG HCO3 VBG Total CO2 VBG O2 Sat (Calc) VBG Base Excess VBG Potassium A-a O2 Difference 130.0 Respiratory Index 3.5 Glucose 174 H Lactate 0.6 L Liter Flow 3.0 FiO2 32.0 Crit Value Called To Dr gordon Crit Value Called By [facility] Crit Value Read Back Y Blood Gas Notified Time 1600 Sodium 140.0 Potassium Chloride 105.0 Carbon Dioxide Anion Gap BUN Creatinine Est GFR ( Amer) Est GFR (Non-Af Amer) POC Glucose (mg/dL) 172 H Random Glucose Calcium Magnesium Total Bilirubin AST ALT Alkaline Phosphatase Total Creatine Kinase Troponin I Total Protein Albumin Globulin Albumin/Globulin Ratio Arterial Blood Potassium 3.1 L Venous Blood Potassium Blood Type Antibody Screen Attending/Attestation - Attestation I have personally seen and examined this patient.: Yes I have fully participated in the care of the patient.: Yes I have reviewed all pertinent clinical information: Yes Notes (Text): 01/22/18 17:03 patient seen and examined 58-year-old female admitted to intensive care unit for hypotension, fever, change in mental status and infected stump started on IV antibiotics Surgical consult and possible AKA tomorrow Transfuse packed RBCs Hemodialysis is on hold secondary to hypotension Culture and sensitivity
[2018-01-22 14:02] LABS: ANISOCYTOSIS SLIGHT; BANDS 12 % (0-2); LYMPHOCYTE 6 % (20-40); MONOCYTE 6 % (0-10); NEUTROPHIL 76 % (50-75); PLATELET ESTIMATE NORMAL (NORMAL); TOTAL CELLS COUNTED 100
[2018-01-22 14:03] LABS: HYPOCHROMIC SLIGHT; POLYCHROMIC SLIGHT
--- NOTE | 2018-01-22 14:08 | C.PDOC ---
History Of Present Illness 58-year-old female, PMhx includes dementia, brought to the emergency department from alf with complaints of a fever, s/p left leg AKA, increased redness to the stump. Pt is unable to provide further Hx due to dementia. Time Seen by Provider: 01/22/18 12:16 Chief Complaint (Nursing): Abnormal Skin Integrity History Per: EMS History/Exam Limitations: clinical condition Past Medical History Reviewed: Historical Data, Nursing Documentation, Vital Signs Vital Signs: Last Vital Signs Temp 98.3 F 01/22/18 22:27 Pulse 72 01/23/18 01:29 Resp 21 01/23/18 01:29 BP 96/46 L 01/23/18 01:29 Pulse Ox 100 01/23/18 01:29 - Medical History PMH: Anxiety, CHF, Dementia, Diabetes, HIV, HTN, Hyperthyroidism, Hypothyroidism , End Stage Renal Disease, Chronic Kidney Disease Surgical History: - [facility] Procedures (12/30/17) CENTRAL VENOUS CATHETER PLACEMENT WITH GUIDANCE (09/12/13) DETACHMENT AT LEFT UPPER LEG, HIGH, OPEN APPROACH (12/30/17) DILATION OF L FEM ART WITH DRUG-ELUT INTRA, PERC APPROACH (11/28/17) DILATION OF L FEM ART WITH INTRALUM DEV, PERC APPROACH (05/28/17) DILATION OF LEFT ANTERIOR TIBIAL ARTERY, PERC APPROACH (11/28/17) EXCISION OF LEFT FOOT SKIN, EXTERNAL APPROACH (05/28/17) EXTIRPATION OF MATTER FROM L FEM ART, PERC APPROACH (11/28/17) EXTIRPATION OF MATTER FROM L POPL ART, PERC APPROACH (11/28/17) FLUOROSCOPY OF AORTA, BI LE ART USING OTH CONTRAST (05/28/17) FLUOROSCOPY OF RIGHT HEART USING LOW OSMOLAR CONTRAST (05/25/16) HEMODIALYSIS (08/26/14) IMMOBILIZATION OF RIGHT LOWER EXTREMITY USING CAST (05/25/16) IMMOBILIZATION OF RIGHT UPPER LEG USING SPLINT (05/25/16) INSERTION OF INFUSION DEV INTO INF VENA CAVA, PERC APPROACH (04/02/16) INSERTION OF INFUSION DEV INTO R INNOM VEIN, PERC APPROACH (05/28/17) INSERTION OF INFUSION DEV INTO SUP VENA CAVA, PERC APPROACH (12/05/17) INSERTION OF INFUSION DEVICE INTO R ATRIUM, PERC APPROACH (06/19/17) PERFORMANCE OF URINARY FILTRATION, MULTIPLE (05/25/16) PERFORMANCE OF URINARY FILTRATION, SINGLE (02/03/17) REMOVAL OF INFUSION DEVICE FROM LOWER VEIN, PERC APPROACH (04/02/16) REMOVAL OF INFUSION DEVICE FROM UPPER VEIN, PERC APPROACH (12/05/17) REPOSITION RIGHT LOWER FEMUR, EXTERNAL APPROACH (05/25/16) TRANSFUSE NONAUT RED BLOOD CELLS IN PERIPH VEIN, PERC (05/25/16) ULTRASONOGRAPHY OF RIGHT SUBCLAVIAN VEIN, GUIDANCE (06/19/17) Family History: States: No Known Family Hx - Social History Hx Tobacco Use: Yes (former smoker) Hx Alcohol Use: No Hx Substance Use: No - Immunization History Hx Tetanus Toxoid Vaccination: Yes Hx Influenza Vaccination: Yes Hx Pneumococcal Vaccination: No Review Of Systems Review Of Systems: ROS cannot be obtained secondary to pt's inabilty to answer questions. Physical Exam - Physical Exam Appears: Non-toxic, No Acute Distress Skin: Warm, Dry, Pale Head: Atraumatic, Normacephalic Eye(s): bilateral: Conjunctiva Pale Nose: Normal Oral Mucosa: Dry Neck: Normal ROM Chest: Symmetrical Cardiovascular: Rhythm Regular, No Murmur Respiratory: Normal Breath Sounds, No Decreased Breath Sounds, No Accessory Muscle Use Gastrointestinal/Abdominal: Soft, No Tenderness, No Guarding, No Rebound Extremity: Swelling, Other (Left lower extremity: AKA with swelling and blistering to stump. Right lower extremity: BKA.) Neurological/Psych: Other (Dementia) ED Course And Treatment - Laboratory Results Result Diagrams: 01/23/18 06:18 01/23/18 06:19 Interpretation Of ECG: Poor R wave progression. Occasional PVCs. T wave flattening. Rate From EC O2 Sat by Pulse Oximetry: 99 (RA) Pulse Ox Interpretation: Normal Critical Care Time - Critical Care Note Total Time (in mins): 45 Documented critical care: time excludes all time spent performing seperately billable procedures. Medical Decision Making Medical Decision Making: resident care manager rn was paged * 12:33 * 13:00 * 13:30 Dr Sinclair was paged * 13:00 13:26 Case was [id number] with ICU attending Dr Machado, will evaluate pt at bedside. Requests two units of packed RBC's Dr. Bonilla covering for Dr. Wallace is away, will page hospitalist (covering for Dr Bonilla) 13:[address] Sinclair, states will evaluate pt. 13:44 Case discussed with director surgical, aware of pt and findings. Disposition - Disposition Disposition: HOSPITALIZED Disposition Time: 13:45 Condition: SERIOUS - Clinical Impression Clinical Impression: Cellulitis, Hypotension, GI bleed - Scribe Statement The provider has reviewed the documentation as recorded by the Scribe (Dax Marte) All medical record entries made by the Scribe were at my direction and personally dictated by me. I have reviewed the chart and agree that the record accurately reflects my personal performance of the history, physical exam, medical decision making, and the department course for this patient. I have also personally directed, reviewed, and agree with the discharge instructions and disposition.
[2018-01-22] MEDS ORDERED: Sodium Chloride 0.9% 500 ML IV ONE (14:10)
--- NOTE | 2018-01-22 14:12 | RAD ---
PROCEDURE: Left Femur Radiographs. HISTORY: pain COMPARISON: None. TECHNIQUE: AP and Lateral Radiographs of the left femur. FINDINGS: FEMUR: Status post of below-knee amputation, there is diffuse bone demineralization. There is no acute fracture. There is a well circumscribed and round osteolytic area in the distal femur proximal to the amputation. There is narrow zone of transition without definite evidence of internal matrix. SOFT TISSUES: Multiple surgical clips in the amputation stump OTHER FINDINGS: There is a superficial femoral artery endovascular stent graft. IMPRESSION: Status post [id number] amputation, well-circumscribed round osteolytic area in the distal femur proximal to the amputation is nonspecific, the differential considerations include Addi's abscess, benign and malignant neoplasm. MRI of the femur without and with intravenous contrast would be helpful for further characterization
[2018-01-22] MEDS ORDERED: HYDROmorphone 0.5 mg/0.5 ml ISec IVP PRN ×2 (14:14→15:35)
--- NOTE | 2018-01-22 14:23 | CP.PCM.CON ---
History of Present Illness - History of Present Illness History of Present Illness: SURGERY CONSULT NOTE FOR DR. BRIAN 58F presents with left infected AKA stump. Patient seen in office yesterday and was told to come to ED. Patient complaining of pain at the site. She feels weak and fatigue. Denies chest pain, shortness of breath, abdominal pain. Past Patient History - Infectious Disease Hx of Infectious Diseases: None - Past Medical History & Family History Past Medical History?: Yes - Past Social History Smoking Status: Never Smoked - CARDIAC Hx Congestive Heart Failure: Yes Hx Hypertension: Yes - PULMONARY Hx Respiratory Disorders: No - NEUROLOGICAL Hx Dementia: Yes - HEENT Hx HEENT Problems: Yes (wears glasses) Hx Glaucoma: Yes - RENAL Hx Chronic Kidney Disease: Yes - ENDOCRINE/METABOLIC Hx Hyperthyroidism: Yes Hx Hypothyroidism: Yes - HEMATOLOGICAL/ONCOLOGICAL Hx Human Immunodeficiency Virus (HIV): Yes - INTEGUMENTARY Hx Dermatological Problems: No - MUSCULOSKELETAL/RHEUMATOLOGICAL Hx Falls: Yes - GASTROINTESTINAL Hx Gastrointestinal Disorders: No - GENITOURINARY/GYNECOLOGICAL Hx Genitourinary Disorders: Yes Other/Comment: oliguria, on hemodialysis MWF - PSYCHIATRIC Hx Anxiety: Yes Hx Substance Use: No - SURGICAL HISTORY Hx Amputation: Yes (Right BKA/ LEFT BKA) Other/Comment: vascular sx LLE - ANESTHESIA Hx Anesthesia: Yes Hx Anesthesia Reactions: No Hx Malignant Hyperthermia: No Meds Allergies/Adverse Reactions: Allergies Allergy/AdvReac Type Severity Reaction Status Date / Time No Known Allergies Allergy Verified 01/22/18 11:38 - Medications Medications: Current Medications Hydromorphone HCl (Dilaudid) 0.5 mg IVP Q4H PRN PRN Reason: Pain, severe (8-10) Vancomycin/Sodium Chloride (Vancomycin 1 Gm/Ns 200 Ml) 1 gm in 200 mls @ 133.333 mls/hr IVPB ONCE ONE PRN Reason: Protocol Stop: 01/22/18 15:29 Last Admin: 01/22/18 13:55 Dose: 133.333 mls/hr Piperacillin Sod/Tazobactam Sod (Zosyn 2.25 Gm Iv Premix) 2.25 gm in 50 mls @ 100 mls/hr IVPB Q6H [facility] PRN Reason: Protocol Vancomycin/Sodium Chloride (Vancomycin 1 Gm/Ns 200 Ml) 1 gm in 200 mls @ 133 mls/hr IVPB MWF [facility] PRN Reason: Protocol Stop: 01/29/18 09:01 Physical Exam - Constitutional Appears: Toxic - Head Exam Head Exam: ATRAUMATIC - Eye Exam Eye Exam: EOMI, PERRL - Respiratory Exam Respiratory Exam: Clear to Auscultation Bilateral, NORMAL BREATHING PATTERN - Cardiovascular Exam Cardiovascular Exam: REGULAR RHYTHM, +S1, +S2 - GI/Abdominal Exam GI & Abdominal Exam: Soft. absent: Distended, Firm, Guarding, Rebound, Rigid, Tenderness - Extremities Exam Additional comments: left AKA stump infection, necrotic tissue right BKA stump CDI - Skin Skin Exam: Dry, Intact Results - Vital Signs Recent Vital Signs: Last Vital Signs Temp 102.5 F H 01/22/18 12:04 Pulse 107 H 01/22/18 11:31 Resp 20 01/22/18 11:31 BP 98/48 L 01/22/18 11:31 Pulse Ox 99 01/22/18 14:19 - Labs Result Diagrams: 01/22/18 13:10 01/22/18 12:20 Labs: Laboratory Results - last 24 hr 01/22/18 01/22/18 01/22/18 11:32 12:20 12:20 WBC RBC Hgb Hct MCV MCH MCHC RDW Plt Count MPV Neut % (Auto) Lymph % (Auto) [place] % (Auto) Eos % (Auto) Baso % (Auto) Neut # (Auto) Lymph # (Auto) [place] # (Auto) Eos # (Auto) Baso # (Auto) Neutrophils % (Manual) Band Neutrophils % Lymphocytes % (Manual) Monocytes % (Manual) Platelet Estimate Polychromasia Hypochromasia (manual) Anisocytosis (manual) PT 11.1 INR 1.0 APTT 27 pO2 VBG pH VBG pCO2 VBG HCO3 VBG Total CO2 VBG O2 Sat (Calc) VBG Base Excess VBG Potassium Glucose Lactate Sodium 140 Potassium 3.5 L Chloride 96 L Carbon Dioxide 34 H Anion Gap 13 BUN 35 H Creatinine 4.4 H Est GFR ( Amer) 13 Est GFR (Non-Af Amer) 10 POC Glucose (mg/dL) 165 H Random Glucose 155 H Calcium 10.8 H Magnesium Total Bilirubin 0.7 AST 35 ALT 20 Alkaline Phosphatase 133 H D Total Creatine Kinase Troponin I Total Protein 7.5 Albumin 3.0 L Globulin 4.5 H Albumin/Globulin Ratio 0.7 L Venous Blood Potassium Blood Type Antibody Screen 01/22/18 01/22/18 01/22/18 12:26 12:51 13:02 WBC RBC Hgb Hct MCV MCH MCHC RDW Plt Count MPV Neut % (Auto) Lymph % (Auto) [place] % (Auto) Eos % (Auto) Baso % (Auto) Neut # (Auto) Lymph # (Auto) [place] # (Auto) Eos # (Auto) Baso # (Auto) Neutrophils % (Manual) Band Neutrophils % Lymphocytes % (Manual) Monocytes % (Manual) Platelet Estimate Polychromasia Hypochromasia (manual) Anisocytosis (manual) PT INR APTT pO2 25 L VBG pH 7.43 VBG pCO2 53 VBG HCO3 30.7 VBG Total CO2 36.8 H VBG O2 Sat (Calc) 61.2 VBG Base Excess 9.1 H VBG Potassium 3.4 L Glucose 162 H Lactate 1.1 Sodium 139.0 Potassium Chloride 107.0 Carbon Dioxide Anion Gap BUN Creatinine Est GFR ( Amer) Est GFR (Non-Af Amer) POC Glucose (mg/dL) Random Glucose Calcium Magnesium 2.6 H Total Bilirubin AST ALT Alkaline Phosphatase Total Creatine Kinase 158 H Troponin I 0.0570 Total Protein Albumin Globulin Albumin/Globulin Ratio Venous Blood Potassium 3.4 L Blood Type B POSITIVE Antibody Screen Negative 01/22/18 13:10 WBC 14.0 H RBC 2.08 L Hgb 6.4 L* D Hct 20.0 L MCV 96.1 D MCH 30.9 MCHC 32.2 L RDW 22.3 H Plt Count 307 D MPV 8.3 Neut % (Auto) 83.1 H Lymph % (Auto) 7.3 L [place] % (Auto) 8.7 Eos % (Auto) 0.1 Baso % (Auto) 0.8 Neut # (Auto) 11.7 H Lymph # (Auto) 1.0 [place] # (Auto) 1.2 H Eos # (Auto) 0.0 Baso # (Auto) 0.1 Neutrophils % (Manual) 76 H Band Neutrophils % 12 H* Lymphocytes % (Manual) 6 L Monocytes % (Manual) 6 Platelet Estimate Normal Polychromasia Slight Hypochromasia (manual) Slight Anisocytosis (manual) Slight PT INR APTT pO2 VBG pH VBG pCO2 VBG HCO3 VBG Total CO2 VBG O2 Sat (Calc) VBG Base Excess VBG Potassium Glucose Lactate Sodium Potassium Chloride Carbon Dioxide Anion Gap BUN Creatinine Est GFR ( Amer) Est GFR (Non-Af Amer) POC Glucose (mg/dL) Random Glucose Calcium Magnesium Total Bilirubin AST ALT Alkaline Phosphatase Total Creatine Kinase Troponin I Total Protein Albumin Globulin Albumin/Globulin Ratio Venous Blood Potassium Blood Type Antibody Screen Assessment & Plan - Assessment and Plan (Free Text) Assessment: 58F with infected left AKA stump, shock likely 2/2 sepsis Plan: Medical optimization ICU admission Plan for left AKA tomorrow Discussed with Dr. Yahir Munoz, PGY2
[2018-01-22] MEDS: Emtricitabine-Tenofovir 200 mg-300 mg Tab PO SCH (14:30)
[2018-01-22] MEDS: Piperacill/Tazo 2.25gm in Dex 2.25 GM/50 ML BAG IVPB SCH ×2 (14:30→22:00)
[2018-01-22] MEDS ORDERED: HYDROmorphone 1 mg/ml ISec IVP PRN (14:42)
[2018-01-22] MEDS ORDERED: Piperacill/Tazo 2.25gm in Dex 2.25 GM/50 ML BAG IVPB SCH (15:00)
--- NOTE | 2018-01-22 15:18 | RAD ---
HISTORY: fever COMPARISON: 12/30/2017. FINDINGS: The right-sided dialysis catheter terminates in the right atrium. There is stable appearance of bilateral subclavian and axillary endovascular stents. LUNGS: The lungs are clear. PLEURA: No significant pleural effusion identified, no pneumothorax apparent. CARDIOVASCULAR: Normal. OSSEOUS STRUCTURES: No significant abnormalities. VISUALIZED UPPER ABDOMEN: Normal. OTHER FINDINGS: None. IMPRESSION: No active pulmonary disease.
--- NOTE | 2018-01-22 15:50 | CP.PCM.CON ---
History of Present Illness - History of Present Illness History of Present Illness: This 58 years of age female known with end stage renal disease on maintenance hemodialysis Saturday and Saturday. As outpatient. She was admitted with fever and hypotension low blood pressure and complaining of pain. The history goes when she has recently amputation above-knee on the left leg and she supposedly receiving IV antibiotics at the subacute rehabilitation. And she came back because of weakness and the above findings and hemoglobin was 6.4 The patient appeared to be chronically ill and in severe pain and hypotensive and it was very hard to get complete history. The past medical history as noted was diabetes end stage renal disease on dialysis Saturday. Multiple surgical history including recent one above-knee amputation and previous below knee amputation on the right side Review of system as noted below Review of Systems - Review of Systems Systems not reviewed;Unavailable: Respiratory Distress - Constitutional Constitutional: Anorexia, Chills - EENT Eyes: Blurred Vision - Cardiovascular Cardiovascular: absent: Chest Pain, Edema, Pedal Edema - Respiratory Respiratory: absent: Cough, Hemoptysis, Chest Congestion - Gastrointestinal Gastrointestinal: absent: Abdominal Pain, Coffee Ground Emesis - Genitourinary Genitourinary: Nocturia - Musculoskeletal Musculoskeletal: Abnormal Gait, Muscle Weakness - Neurological Neurological: Abnormal Gait, Confusion. absent: Headaches - Endocrine Endocrine: Fatigue - Hematologic/Lymphatic Hematologic: absent: Easy Bleeding Past Patient History - Infectious Disease Hx of Infectious Diseases: None - Past Medical History & Family History Past Medical History?: Yes - Past Social History Smoking Status: Never Smoked - CARDIAC Hx Congestive Heart Failure: Yes Hx Hypertension: Yes - PULMONARY Hx Respiratory Disorders: No - NEUROLOGICAL Hx Dementia: Yes - HEENT Hx HEENT Problems: Yes (wears glasses) Hx Glaucoma: Yes - RENAL Hx Chronic Kidney Disease: Yes Hx Kidney Stones: No - ENDOCRINE/METABOLIC Hx Hyperthyroidism: Yes Hx Hypothyroidism: Yes - HEMATOLOGICAL/ONCOLOGICAL Hx Human Immunodeficiency Virus (HIV): Yes - INTEGUMENTARY Hx Dermatological Problems: No - MUSCULOSKELETAL/RHEUMATOLOGICAL Hx Falls: Yes - GASTROINTESTINAL Hx Gastrointestinal Disorders: No - GENITOURINARY/GYNECOLOGICAL Hx Genitourinary Disorders: Yes Other/Comment: oliguria, on hemodialysis MWF - PSYCHIATRIC Hx Anxiety: Yes Hx Substance Use: No - SURGICAL HISTORY Hx Amputation: Yes (Right BKA/ LEFT BKA) Other/Comment: vascular sx LLE - ANESTHESIA Hx Anesthesia: Yes Hx Anesthesia Reactions: No Hx Malignant Hyperthermia: No Meds Allergies/Adverse Reactions: Allergies Allergy/AdvReac Type Severity Reaction Status Date / Time No Known Allergies Allergy Verified 01/22/18 11:38 - Medications Medications: Current Medications Acetaminophen (Tylenol 325mg Tab) 650 mg PO Q6 PRN PRN Reason: Fever >100.4 F Acetaminophen (Tylenol 325mg Tab) 650 mg PO Q6 PRN PRN Reason: Pain, Mild (1-3) Bisacodyl (Dulcolax) 10 mg MS ONCE PRN PRN Reason: Constipation Docusate Sodium (Colace) 100 mg PO BID [facility] Emtricitabine/Tenofovir (Truvada 200 Mg-300 Mg) 1 tab PO Q48H [facility]INA PRN Reason: Protocol Epoetin Alonso (Procrit) 10,000 unit IV MWF [facility] Hydromorphone HCl (Dilaudid) 1 mg IVP Q6H PRN PRN Reason: Pain, severe (8-10) Hydromorphone HCl (Dilaudid) 0.5 mg IVP Q4H PRN PRN Reason: Pain, moderate (4-7) Piperacillin Sod/Tazobactam Sod (Zosyn 2.25 Gm Iv Premix) 2.25 gm in 50 mls @ 100 mls/hr IVPB Q6H [facility] PRN Reason: Protocol Vancomycin/Sodium Chloride (Vancomycin 1 Gm/Ns 200 Ml) 1 gm in 200 mls @ 133 mls/hr IVPB MWF [facility] PRN Reason: Protocol Stop: 01/29/18 09:01 Amikacin Sulfate 500 mg/ (Sodium Chloride) 102 mls @ 204 mls/hr IVPB ONCE ONE PRN Reason: Protocol Stop: 01/22/18 16:29 Insulin Human Regular (Novolin R) 0 unit SC ACHS [facility] PRN Reason: Protocol Pantoprazole Sodium (Protonix Inj) 40 mg IVP DAILY [facility] Sevelamer Carbonate (Renvela) 800 mg PO TID [facility] Vitamin B Complex/Vit C/Folic Acid (Nephro-Carlos) 1 tab PO DAILY [facility] Physical Exam - Constitutional Appears: No Acute Distress - ENT Exam ENT Exam: Mucous Membranes Dry - Neck Exam Neck exam: Negative for: Lymphadenopathy - Respiratory Exam Respiratory Exam: NORMAL BREATHING PATTERN. absent: Chest Wall Tenderness - Cardiovascular Exam Cardiovascular Exam: absent: Gallop, JVD, Rubs - GI/Abdominal Exam GI & Abdominal Exam: Normal Bowel Sounds. absent: Guarding - Extremities Exam Extremities exam: Negative for: calf tenderness Additional comments: Infected left above-knee stump. Recent surgery. And above the stump approximately 2 inchesskin gangrenous and appeared to be necrotic and necrosis surrounding most of the leg aroung with 2 inches wide and old amputation below knee on the right - Back Exam Back exam: absent: CVA tenderness (L), CVA tenderness (R) - Neurological Exam Neurological exam: Altered - Psychiatric Exam Psychiatric exam: Agitated Results - Vital Signs Recent Vital Signs: Last Vital Signs Temp 100.5 F H 01/22/18 14:23 Pulse 91 H 01/22/18 14:23 Resp 30 H 01/22/18 14:23 BP 82/44 L 01/22/18 14:23 Pulse Ox 100 01/22/18 14:23 - Labs Result Diagrams: 01/22/18 13:10 01/22/18 12:20 Labs: Laboratory Results - last 24 hr 01/22/18 01/22/18 01/22/18 11:32 12:20 12:20 WBC RBC Hgb Hct MCV MCH MCHC RDW Plt Count MPV Neut % (Auto) Lymph % (Auto) [place] % (Auto) Eos % (Auto) Baso % (Auto) Neut # (Auto) Lymph # (Auto) [place] # (Auto) Eos # (Auto) Baso # (Auto) Neutrophils % (Manual) Band Neutrophils % Lymphocytes % (Manual) Monocytes % (Manual) Platelet Estimate Polychromasia Hypochromasia (manual) Anisocytosis (manual) PT 11.1 INR 1.0 APTT 27 pO2 VBG pH VBG pCO2 VBG HCO3 VBG Total CO2 VBG O2 Sat (Calc) VBG Base Excess VBG Potassium Glucose Lactate Sodium 140 Potassium 3.5 L Chloride 96 L Carbon Dioxide 34 H Anion Gap 13 BUN 35 H Creatinine 4.4 H Est GFR ( Amer) 13 Est GFR (Non-Af Amer) 10 POC Glucose (mg/dL) 165 H Random Glucose 155 H Calcium 10.8 H Magnesium Total Bilirubin 0.7 AST 35 ALT 20 Alkaline Phosphatase 133 H D Total Creatine Kinase Troponin I Total Protein 7.5 Albumin 3.0 L Globulin 4.5 H Albumin/Globulin Ratio 0.7 L Venous Blood Potassium Blood Type Antibody Screen 01/22/18 01/22/18 01/22/18 12:26 12:51 13:02 WBC RBC Hgb Hct MCV MCH MCHC RDW Plt Count MPV Neut % (Auto) Lymph % (Auto) [place] % (Auto) Eos % (Auto) Baso % (Auto) Neut # (Auto) Lymph # (Auto) [place] # (Auto) Eos # (Auto) Baso # (Auto) Neutrophils % (Manual) Band Neutrophils % Lymphocytes % (Manual) Monocytes % (Manual) Platelet Estimate Polychromasia Hypochromasia (manual) Anisocytosis (manual) PT INR APTT pO2 25 L VBG pH 7.43 VBG pCO2 53 VBG HCO3 30.7 VBG Total CO2 36.8 H VBG O2 Sat (Calc) 61.2 VBG Base Excess 9.1 H VBG Potassium 3.4 L Glucose 162 H Lactate 1.1 Sodium 139.0 Potassium Chloride 107.0 Carbon Dioxide Anion Gap BUN Creatinine Est GFR ( Amer) Est GFR (Non-Af Amer) POC Glucose (mg/dL) Random Glucose Calcium Magnesium 2.6 H Total Bilirubin AST ALT Alkaline Phosphatase Total Creatine Kinase 158 H Troponin I 0.0570 Total Protein Albumin Globulin Albumin/Globulin Ratio Venous Blood Potassium 3.4 L Blood Type B POSITIVE Antibody Screen Negative 01/22/18 13:10 WBC 14.0 H RBC 2.08 L Hgb 6.4 L* D Hct 20.0 L MCV 96.1 D MCH 30.9 MCHC 32.2 L RDW 22.3 H Plt Count 307 D MPV 8.3 Neut % (Auto) 83.1 H Lymph % (Auto) 7.3 L [place] % (Auto) 8.7 Eos % (Auto) 0.1 Baso % (Auto) 0.8 Neut # (Auto) 11.7 H Lymph # (Auto) 1.0 [place] # (Auto) 1.2 H Eos # (Auto) 0.0 Baso # (Auto) 0.1 Neutrophils % (Manual) 76 H Band Neutrophils % 12 H* Lymphocytes % (Manual) 6 L Monocytes % (Manual) 6 Platelet Estimate Normal Polychromasia Slight Hypochromasia (manual) Slight Anisocytosis (manual) Slight PT INR APTT pO2 VBG pH VBG pCO2 VBG HCO3 VBG Total CO2 VBG O2 Sat (Calc) VBG Base Excess VBG Potassium Glucose Lactate Sodium Potassium Chloride Carbon Dioxide Anion Gap BUN Creatinine Est GFR ( Amer) Est GFR (Non-Af Amer) POC Glucose (mg/dL) Random Glucose Calcium Magnesium Total Bilirubin AST ALT Alkaline Phosphatase Total Creatine Kinase Troponin I Total Protein Albumin Globulin Albumin/Globulin Ratio Venous Blood Potassium Blood Type Antibody Screen Assessment & Plan - Assessment and Plan (Free Text) Assessment: End stage renal disease on maintenance hemodialysis Saturday. Patient admitted with septic shock with low blood pressure. And perhaps hemorrhagic shock with low hemoglobin 6.4 This patient make it very difficult to start dialysis with systolic blood pressure around 80 therefore patient need stabilization given blood transfusion before we'll give dialysis. In addition treatment of septic shock as per intensive care unit team and follow -up with surgery
[2018-01-22 16:00] LABS: ARTERIAL BLOOD GAS HCO3 29.6 mmol/L (21-28); ARTERIAL BLOOD GAS O2 SAT 80.9 % (95-98); ARTERIAL BLOOD GAS PCO2 49 mm/Hg (35-45); ARTERIAL BLOOD GAS PH 7.43 (7.35-7.45); ARTERIAL BLOOD GAS PO2 37 mm/Hg (80-100)
[2018-01-22] MEDS ORDERED: Cefepime IV 1 gm in Dextrose 1 GM/50 ML BAG IVPB ONE (16:00)
[2018-01-22] MEDS ORDERED: Cefepime 1 GM in Sodium Chloride 0.9% 50 ML IVPB ONE (16:00)
[2018-01-22] MEDS ORDERED: (Novolin R) Insulin Human Regular 100 units/ml vial SC SCH ×2 (16:00→16:30)
[2018-01-22] MEDS ORDERED: Dextrose 50% SYRINGE Inj (50 ml) IV PRN (16:27)
[2018-01-22] MEDS ORDERED: Glucagon Recombinant 1 mg Inj IM PRN (16:27)
[2018-01-22] MEDS ORDERED: Piperacillin/Tazobact 2.25 GM in Sodium Chloride 0.9% 50 ML IV SCH (16:30)
[2018-01-22] MEDS ORDERED: DiphenhydrAMINE 12.5 mg/5 ml LIQ UD (5 ml) PO PRN (17:09)
[2018-01-22] MEDS: Simethicone 80 mg Chewtab PO SCH ×2 (18:00→22:18)
--- NOTE | 2018-01-22 18:35 | PCM.PROC ---
Procedures Attestation:: I certify that I have explained the specified Operation(s) or Procedure(s), risks, benefits and reasonable alternatives to the Patient and/or other person responsible. The opportunity was given to ask questions and all questions answered - Central Line Placement Right Femoral Triple Lumen Catheter Aseptic technique was employed throughout the procedure: Hand Hygiene done prior to procedure, Full sterile barriers (mask, hair cover, sterile gown, sterile gloves), Full body sterile drape, Chloraprep Antiseptic: 2 minute prep for Femoral CVP Time Out Performed: Yes Pt. Placed on Pulse Ox Monitor: Yes Central Line Prep: Chlorhexidine-Alcohol Combination Local Anesthesia Used: Lidocaine 1% Amount of Anesthesia Used (mls): 5 Ultrasound Used for Placement: Yes Central Line Lumen Inserted: triple Central Line Length: 16 cm Post Procedure: Sutured in Place, Good Blood Return (except in white cap lumen; no venous return ), All Ports Aspirated, Flushed, Capped, Sterile Dressing Applied Secured by: Securement device Post procedure dressing: Gauze, Clear vapor permeable, Chlorhexidine disc ( Biopatch) Post Procedure X-Ray: No Patient Tolerated Procedure: Well, No Complications Immediate Complications: None
--- NOTE | 2018-01-22 22:49 | CP.PCM.CON ---
Past Patient History - Infectious Disease Hx of Infectious Diseases: None - Past Medical History & Family History Past Medical History?: Yes - Past Social History Smoking Status: Never Smoked - CARDIAC Hx Congestive Heart Failure: Yes Hx Hypertension: Yes - PULMONARY Hx Respiratory Disorders: No - NEUROLOGICAL Hx Dementia: Yes - HEENT Hx HEENT Problems: Yes (wears glasses) Hx Glaucoma: Yes - RENAL Hx Chronic Kidney Disease: Yes - ENDOCRINE/METABOLIC Hx Hyperthyroidism: Yes Hx Hypothyroidism: Yes - HEMATOLOGICAL/ONCOLOGICAL Hx Human Immunodeficiency Virus (HIV): Yes - INTEGUMENTARY Hx Dermatological Problems: No - MUSCULOSKELETAL/RHEUMATOLOGICAL Hx Falls: Yes - GASTROINTESTINAL Hx Gastrointestinal Disorders: No - GENITOURINARY/GYNECOLOGICAL Hx Genitourinary Disorders: Yes Other/Comment: oliguria, on hemodialysis MWF - PSYCHIATRIC Hx Anxiety: Yes Hx Substance Use: No - SURGICAL HISTORY Hx Amputation: Yes (Right BKA/ LEFT BKA) Other/Comment: vascular sx LLE - ANESTHESIA Hx Anesthesia: Yes Hx Anesthesia Reactions: No Hx Malignant Hyperthermia: No Meds Allergies/Adverse Reactions: Allergies Allergy/AdvReac Type Severity Reaction Status Date / Time No Known Allergies Allergy Verified 01/22/18 11:38 - Medications Medications: Current Medications Acetaminophen (Tylenol 325mg Tab) 650 mg PO Q6 PRN PRN Reason: Fever >100.4 F Acetaminophen (Tylenol 325mg Tab) 650 mg PO Q6 PRN PRN Reason: Pain, Mild (1-3) Bisacodyl (Dulcolax) 10 mg ND ONCE PRN PRN Reason: Constipation Dextrose (Dextrose 50% Inj) 0 ml IV STAT PRN; Protocol PRN Reason: Hypoglycemia Protocol Dextrose (Glutose 15) 0 gm PO ONCE PRN; Protocol PRN Reason: Hypoglycemia Protocol Diphenhydramine HCl (Benadryl) 25 mg PO ONCE PRN PRN Reason: rx prior to blood transfusion Docusate Sodium (Colace) 100 mg PO BID [facility] Last Admin: 01/22/18 17:57 Dose: Not Given Emtricitabine/Tenofovir (Truvada 200 Mg-300 Mg) 1 tab PO Q48H KATARINA PRN Reason: Protocol Last Admin: 01/22/18 14:30 Dose: Not Given Epoetin Alonso (Procrit) 10,000 unit IV MWF [facility] Glucagon (Glucagen Diagnostic Kit) 0 mg IM STAT PRN; Protocol PRN Reason: Hypoglycemia Protocol Hydromorphone HCl (Dilaudid) 1 mg IVP Q6H PRN PRN Reason: Pain, severe (8-10) Hydromorphone HCl (Dilaudid) 0.5 mg IVP Q4H PRN PRN Reason: Pain, moderate (4-7) Vancomycin/Sodium Chloride (Vancomycin 1 Gm/Ns 200 Ml) 1 gm in 200 mls @ 133 mls/hr IVPB MWF [facility] PRN Reason: Protocol Stop: 01/29/18 09:01 Piperacillin Sod/Tazobactam Sod (Zosyn 2.25 Gm Iv Premix) 2.25 gm in 50 mls @ 100 mls/hr IVPB Q6H KATARINA PRN Reason: Protocol Last Admin: 01/22/18 22:00 Dose: 100 mls/hr Dextrose (Dextrose 5% In Water 1000 Ml) 1,000 mls @ 0 mls/hr IV .Q0M PRN; Protocol; Per Protocol PRN Reason: Hypoglycemia Protocol Norepinephrine Bitartrate 4 mg (/ Dextrose) 254 mls @ 15.24 mls/hr IV .[id number] PRN; Protocol; 4 MCG/MIN PRN Reason: TITRATE PER MD ORDER Last Titration: 01/22/18 19:00 Dose: 10 mcg/min, 38.1 mls/hr Insulin Human Regular (Novolin R) 0 unit SC Q6 KATARINA PRN Reason: Protocol Pantoprazole Sodium (Protonix Inj) 40 mg IVP DAILY [facility] Sevelamer Carbonate (Renvela) 800 mg PO TID [facility] Last Admin: 01/22/18 18:00 Dose: Not Given Simethicone (Mylicon Chew Tab) 80 mg PO QID [facility] Last Admin: 01/22/18 22:18 Dose: Not Given Vitamin B Complex/Vit C/Folic Acid (Nephro-Carlos) 1 tab PO DAILY [facility] Results - Vital Signs Recent Vital Signs: Last Vital Signs Temp 98.3 F 01/22/18 22:27 Pulse 78 01/22/18 22:27 Resp 21 01/22/18 22:27 BP 97/38 L 01/22/18 22:27 Pulse Ox 100 01/22/18 20:40 - Labs Result Diagrams: 01/22/18 13:10 01/22/18 12:20 Labs: Laboratory Results - last 24 hr 01/22/18 01/22/18 01/22/18 11:32 12:20 12:20 WBC RBC Hgb Hct MCV MCH MCHC RDW Plt Count MPV Neut % (Auto) Lymph % (Auto) [place] % (Auto) Eos % (Auto) Baso % (Auto) Neut # (Auto) Lymph # (Auto) [place] # (Auto) Eos # (Auto) Baso # (Auto) Neutrophils % (Manual) Band Neutrophils % Lymphocytes % (Manual) Monocytes % (Manual) Platelet Estimate Polychromasia Hypochromasia (manual) Anisocytosis (manual) PT 11.1 INR 1.0 APTT 27 Puncture Site pCO2 pO2 HCO3 ABG pH ABG Total CO2 ABG O2 Saturation ABG Base Excess Sedrick Test ABG Potassium VBG pH VBG pCO2 VBG HCO3 VBG Total CO2 VBG O2 Sat (Calc) VBG Base Excess VBG Potassium A-a O2 Difference Respiratory Index Glucose Lactate Liter Flow FiO2 Crit Value Called To Crit Value Called By Crit Value Read Back Blood Gas Notified Time Sodium 140 Potassium 3.5 L Chloride 96 L Carbon Dioxide 34 H Anion Gap 13 BUN 35 H Creatinine 4.4 H Est GFR ( Amer) 13 Est GFR (Non-Af Amer) 10 POC Glucose (mg/dL) 165 H Random Glucose 155 H Calcium 10.8 H Magnesium Total Bilirubin 0.7 AST 35 ALT 20 Alkaline Phosphatase 133 H D Total Creatine Kinase Troponin I Total Protein 7.5 Albumin 3.0 L Globulin 4.5 H Albumin/Globulin Ratio 0.7 L Arterial Blood Potassium Venous Blood Potassium Blood Type Antibody Screen 01/22/18 01/22/18 01/22/18 12:26 12:51 13:02 WBC RBC Hgb Hct MCV MCH MCHC RDW Plt Count MPV Neut % (Auto) Lymph % (Auto) [place] % (Auto) Eos % (Auto) Baso % (Auto) Neut # (Auto) Lymph # (Auto) [place] # (Auto) Eos # (Auto) Baso # (Auto) Neutrophils % (Manual) Band Neutrophils % Lymphocytes % (Manual) Monocytes % (Manual) Platelet Estimate Polychromasia Hypochromasia (manual) Anisocytosis (manual) PT INR APTT Puncture Site pCO2 pO2 25 L HCO3 ABG pH ABG Total CO2 ABG O2 Saturation ABG Base Excess Sedrick Test ABG Potassium VBG pH 7.43 VBG pCO2 53 VBG HCO3 30.7 VBG Total CO2 36.8 H VBG O2 Sat (Calc) 61.2 VBG Base Excess 9.1 H VBG Potassium 3.4 L A-a O2 Difference Respiratory Index Glucose 162 H Lactate 1.1 Liter Flow FiO2 Crit Value Called To Crit Value Called By Crit Value Read Back Blood Gas Notified Time Sodium 139.0 Potassium Chloride 107.0 Carbon Dioxide Anion Gap BUN Creatinine Est GFR ( Amer) Est GFR (Non-Af Amer) POC Glucose (mg/dL) Random Glucose Calcium Magnesium 2.6 H Total Bilirubin AST ALT Alkaline Phosphatase Total Creatine Kinase 158 H Troponin I 0.0570 Total Protein Albumin Globulin Albumin/Globulin Ratio Arterial Blood Potassium Venous Blood Potassium 3.4 L Blood Type B POSITIVE Antibody Screen Negative 01/22/18 01/22/18 01/22/18 13:10 15:50 16:34 WBC 14.0 H RBC 2.08 L Hgb 6.4 L* D Hct 20.0 L MCV 96.1 D MCH 30.9 MCHC 32.2 L RDW 22.3 H Plt Count 307 D MPV 8.3 Neut % (Auto) 83.1 H Lymph % (Auto) 7.3 L [place] % (Auto) 8.7 Eos % (Auto) 0.1 Baso % (Auto) 0.8 Neut # (Auto) 11.7 H Lymph # (Auto) 1.0 [place] # (Auto) 1.2 H Eos # (Auto) 0.0 Baso # (Auto) 0.1 Neutrophils % (Manual) 76 H Band Neutrophils % 12 H* Lymphocytes % (Manual) 6 L Monocytes % (Manual) 6 Platelet Estimate Normal Polychromasia Slight Hypochromasia (manual) Slight Anisocytosis (manual) Slight PT INR APTT Puncture Site [place] pCO2 49 H pO2 37 L* HCO3 29.6 H ABG pH 7.43 ABG Total CO2 34.0 H ABG O2 Saturation 80.9 L ABG Base Excess 6.9 H Sedrick Test Na ABG Potassium 3.1 L VBG pH VBG pCO2 VBG HCO3 VBG Total CO2 VBG O2 Sat (Calc) VBG Base Excess VBG Potassium A-a O2 Difference 130.0 Respiratory Index 3.5 Glucose 174 H Lactate 0.6 L Liter Flow 3.0 FiO2 32.0 Crit Value Called To Dr gordon Crit Value Called By [facility] Crit Value Read Back Y Blood Gas Notified Time 1600 Sodium 140.0 Potassium Chloride 105.0 Carbon Dioxide Anion Gap BUN Creatinine Est GFR ( Amer) Est GFR (Non-Af Amer) POC Glucose (mg/dL) 172 H Random Glucose Calcium Magnesium Total Bilirubin AST ALT Alkaline Phosphatase Total Creatine Kinase Troponin I Total Protein Albumin Globulin Albumin/Globulin Ratio Arterial Blood Potassium 3.1 L Venous Blood Potassium Blood Type Antibody Screen
[2018-01-22] MEDS: (Novolin R) Insulin Human Regular 100 units/ml vial SC SCH (23:52)
[2018-01-23] MEDS: Piperacill/Tazo 2.25gm in Dex 2.25 GM/50 ML BAG IVPB SCH (04:30)
[2018-01-23] MEDS: (Novolin R) Insulin Human Regular 100 units/ml vial SC SCH ×3 (06:00→18:53)
[2018-01-23 06:22] LABS: BASO # 0.1 K/uL (0.0-0.2); BASO % 0.6 % (0.0-2.0); EOS % 0.3 % (0.0-4.0); HEMOGLOBIN 10.5 g/dL (11.0-16.0); LYMPH # 0.7 K/uL (1.0-4.3); LYMPH % 5.1 % (20.0-40.0); MEAN CELL VOLUME 89.6 fL (81.0-99.0); MEAN CORPUSCULAR HGB CONC 32.4 g/dL (33.0-37.0); MEAN PLATELET VOLUME 7.8 fL (7.2-11.7); MONO # 0.8 K/uL (0.0-0.8); MONO % 6.3 % (0.0-10.0); NEUT # 11.7 K/uL (1.8-7.0); NEUT % 87.7 % (50.0-75.0); NRBC % 0.1 % (0.0-2.0); PLATELET COUNT 330 K/uL (130-400); RBC 3.63 Mil/uL (3.80-5.20); RED CELL DISTRIBUTION WIDTH 20.9 % (11.5-14.5); WHITE BLOOD COUNT 13.3 K/uL (4.8-10.8)
[2018-01-23 06:42] LABS: ALB/GLOB RATIO 0.7 (1.0-2.1); CALCIUM 10.8 mg/dl (8.6-10.4)
[2018-01-23 08:18] LABS: ANISOCYTOSIS MODERATE; BANDS 17 % (0-2); LYMPHOCYTE 4 % (20-40); MONOCYTE 7 % (0-10); MYELOCYTE 1 % (0-0); NEUTROPHIL 71 % (50-75); PLATELET ESTIMATE NORMAL (NORMAL); TOTAL CELLS COUNTED 100
[2018-01-23 08:19] LABS: TOXIC GRANULATION PRESENT
[2018-01-23] MEDS: Meropenem 500 MG in Sodium Chloride 0.9% 100 ML IVPB SCH ×2 (09:26→22:04)
[2018-01-23] MEDS ORDERED: Midazolam 2 MG/2 ML VIAL ONE (10:16)
[2018-01-23] MEDS ORDERED: Etomidate 20 mg/10ml Inj IV ONE (10:50)
--- NOTE | 2018-01-23 11:11 | CP.CCUPN ---
Addendum entered and electronically signed by Virginia Myers DO 01/23/18 11:45 : Patient transfused 1 unit intra op, will be transfused another unit now. Total 4 units throughout this admission thus far. Original Note: <Virginia Myers - Last Filed: 01/23/18 11:14> CCU Subjective - Physician Review Subjective (Free Text): Patient was seen and examined at bedside. She is still altered, moaning, not responding to questions. She is currently on LEVO drip. CCU Objective - Vital Signs / Intake & Output Vital Signs (Last 4 hours): Vital Signs Pulse Resp BP Pulse Ox 01/23/18 07:50 99 01/23/18 07:46 73 12 101/45 L 100 01/23/18 07:42 73 24 95/42 L 100 01/23/18 07:09 85 23 86/36 L 100 01/23/18 07:00 75 21 87/43 L 100 Intake and Output (Last 8hrs): Intake & Output 01/22/18 01/23/18 01/23/18 22:59 06:59 14:59 Intake Total 1446.2 708.8 370 Output Total 0 0 0 Balance 1446.2 708.8 370 Weight 172 lb 13.478 oz Intake: IV 0 254 325 Intake, IV Amount 221.2 454.8 45 Right Upper arm 0 0 distal port of right 171.2 304.8 45 femoral cath medial port [id number] 50 150 Oral 0 0 0 Blood Product 975 Red Blood Cells Cpd As1 325 Lr Unit [id number] Red Blood Cells Cpd As1 325 Lr Unit [id number] Albumin 100 Other 150 Red Blood Cells Cpd As1 50 Lr Unit [id number] Red Blood Cells Cpd As1 100 Lr Unit [id number] Output: Urine 0 0 0 Urine, Voided 0 0 0 Stool 0 0 0 - Physical Exam Head: Positive for: Atraumatic, Normocephalic Pupils: Positive for: PERRL Extroacular Muscles: Positive for: EOMI Conjunctiva: Positive for: Normal Mouth: Positive for: Dry Respiratory/Chest: Positive for: Clear to Auscultation Cardiovascular: Positive for: Regular Rate and Rhythm Abdomen: Positive for: Normal Bowel Sounds. Negative for: Tenderness, Distention Upper Extremity: Positive for: Other (left AVF - no thrill noted ) Lower Extremity: Positive for: Other Neurological: Positive for: GCS=15, CN II-XII Intact Skin: Positive for: Warm, Dry Psychiatric: Positive for: Alert, Lethargic Other physical findings (Free Text): -Right BKA, well healed scar, no ulcers noted; -Left AKA, tenderness to palpation, stump infection with necrotic tissue at the surgical site and medial AKA (necrotic tissue extends 1/3 up the length of the thigh in a 3 inch band -the L thigh is 1.5x the diameter of the R - Medications Active Medications: Active Medications Generic Name Dose Route Start Last Admin Trade Name Freq PRN Reason Stop Dose Admin Acetaminophen 650 mg 01/22/18 14:22 Tylenol 325mg Tab PO Q6 PRN Fever >100.4 F Acetaminophen 650 mg 01/22/18 14:38 Tylenol 325mg Tab PO Q6 PRN Pain, Mild (1-3) Bisacodyl 10 mg 01/22/18 14:31 Dulcolax IA ONCE PRN Constipation Dextrose 0 ml 01/22/18 16:27 Dextrose 50% Inj IV STAT PRN Hypoglycemia Protocol Protocol Dextrose 0 gm 01/22/18 16:27 Glutose 15 PO ONCE PRN Hypoglycemia Protocol Protocol Docusate Sodium 100 mg 01/22/18 18:00 01/22/18 17:57 Colace PO Not Given BID [facility] Emtricitabine/Tenofovir 1 tab 01/22/18 14:30 01/22/18 14:30 Truvada 200 Mg-300 Mg PO Not Given Q48H [facility] Protocol Epoetin Alonso 10,000 unit 01/24/18 09:[address] [facility] Glucagon 0 mg 01/22/18 16:27 Glucagen Diagnostic Kit IM STAT PRN Hypoglycemia Protocol Protocol Hydromorphone HCl 1 mg 01/22/18 14:42 Dilaudid IVP Q6H PRN Pain, severe (8-10) Hydromorphone HCl 0.5 mg 01/22/18 15:35 Dilaudid IVP Q4H PRN Pain, moderate (4-7) Vancomycin/Sodium Chloride 1 gm in 200 mls @ 133 mls/hr 01/24/18 09:00 Vancomycin 1 Gm/Ns 200 Ml IVPB 01/29/18 09:01 [facility] Protocol Dextrose 1,000 mls @ 0 mls/hr 01/22/18 16:27 Dextrose 5% In Water 1000 Ml IV .Q0M PRN Hypoglycemia Protocol Protocol Per Protocol Norepinephrine Bitartrate 4 mg 254 mls @ 15.24 mls/hr 01/22/18 18:18 07:00 / Dextrose IV 12 mcg/min .[id number] PRN 45.72 mls/hr TITRATE PER MD ORDER Titration Protocol 4 MCG/MIN Meropenem 500 mg/ Sodium 100 mls @ 100 mls/hr 01/23/18 10:00 01/23/18 09:26 Chloride IVPB 100 mls Q12 KATARINA Administration Protocol Insulin Human Regular 0 unit 01/23/18 00:00 01/23/18 06:00 Novolin R SC Not Given Q6 KATARINA Protocol Pantoprazole Sodium 40 mg 01/23/18 10:00 Protonix Inj IVP DAILY KATARINA Sevelamer Carbonate 800 mg 01/22/18 18:00 01/22/18 18:00 Renvela PO Not Given TID KATARINA Simethicone 80 mg 01/22/18 18:00 01/22/18 22:18 Mylicon Chew Tab PO Not Given QID KATARINA Vitamin B Complex/Vit C/Folic Acid 1 tab 01/23/18 10:00 Nephro-Carlos PO DAILY KATARINA - Patient Studies Lab Studies: Microbiology Studies 01/22/18 Unknown Gram Stain - Final Leg - Left Lab Studies 01/23/18 01/23/18 01/23/18 Range/Units 06:51 06:19 06:19 WBC (4.8-10.8) K/uL RBC (3.80-5.20) Mil/uL Hgb (11.0-16.0) g/dL Hct (34.0-47.0) % MCV (81.0-99.0) fL MCH (27.0-31.0) pg MCHC (33.0-37.0) g/dL RDW (11.5-14.5) % Plt Count (130-400) K/uL MPV (7.2-11.7) fL Neut % (Auto) (50.0-75.0) % Lymph % (Auto) (20.0-40.0) % [place] % (Auto) (0.0-10.0) % Eos % (Auto) (0.0-4.0) % Baso % (Auto) (0.0-2.0) % Neut # (Auto) (1.8-7.0) K/uL Lymph # (Auto) (1.0-4.3) K/uL [place] # (Auto) (0.0-0.8) K/uL Eos # (Auto) (0.0-0.7) K/uL Baso # (Auto) (0.0-0.2) K/uL Neutrophils % (Manual) (50-75) % Band Neutrophils % (0-2) % Lymphocytes % (Manual) (20-40) % Monocytes % (Manual) (0-10) % Myelocytes % (0-0) % Toxic Granulation Platelet Estimate (NORMAL) Polychromasia Hypochromasia (manual) Anisocytosis (manual) PT (9.7-12.2) SECONDS INR APTT (21-34) SECONDS Puncture Site pCO2 (35-45) mm/Hg pO2 (30-55) mm/Hg HCO3 (21-28) mmol/L ABG pH (7.35-7.45) ABG Total CO2 (22-28) mmol/L ABG O2 Saturation (95-98) % ABG Base Excess (-2.0-3.0) mmol/L Sedrick Test ABG Potassium (3.6-5.2) mmol/L VBG pH (7.32-7.43) VBG pCO2 (40-60) mmHg VBG HCO3 mmol/L VBG Total CO2 (22-28) mmol/L VBG O2 Sat (Calc) (40-65) % VBG Base Excess (0.0-2.0) mmol/L VBG Potassium (3.6-5.2) mmol/L A-a O2 Difference mm/Hg Respiratory Index Glucose (65-105) mg/dl Lactate (0.7-2.1) mmol/L Liter Flow FiO2 % Crit Value Called To Crit Value Called By Crit Value Read Back Blood Gas Notified Time Sodium 138 (132-148) mmol/L Potassium 3.6 (3.6-5.2) mmol/L Chloride 98 (98-107) mmol/L Carbon Dioxide 30 (22-30) mmol/L Anion Gap 15 (10-20) BUN 42 H (7-17) mg/dL Creatinine 4.8 H (0.7-1.2) mg/dL Est GFR ( Amer) 11 Est GFR (Non-Af Amer) 9 POC Glucose (mg/dL) 221 H (65-110) mg/dL Random Glucose 208 H (65-105) mg/dL Calcium 10.8 H (8.6-10.4) mg/dl Phosphorus 3.0 (2.5-4.5) mg/dL Magnesium 2.5 H (1.6-2.3) mg/dL Total Bilirubin 0.8 (0.2-1.3) mg/dL AST 29 (14-36) U/L ALT 19 (9-52) U/L Alkaline Phosphatase 123 (38-126) U/L Total Creatine Kinase (30-135) U/L Troponin I (0.00-0.120) ng/mL Total Protein 7.3 (6.3-8.3) g/dL Albumin 3.0 L (3.5-5.0) g/dL Globulin 4.4 H (2.2-3.9) gm/dL Albumin/Globulin Ratio 0.7 L (1.0-2.1) Arterial Blood Potassium (3.6-5.2) mmol/L Venous Blood Potassium (3.6-5.2) mmol/L Random Vancomycin 22.0 ug/mL Blood Type Antibody Screen 01/23/18 01/22/18 01/22/18 Range/Units 06:18 23:26 16:34 WBC 13.3 H (4.8-10.8) K/uL RBC 3.63 L (3.80-5.20) Mil/uL Hgb 10.5 L D (11.0-16.0) g/dL Hct 32.5 L (34.0-47.0) % MCV 89.6 D (81.0-99.0) fL MCH 29.0 (27.0-31.0) pg MCHC 32.4 L (33.0-37.0) g/dL RDW 20.9 H (11.5-14.5) % Plt Count 330 (130-400) K/uL MPV 7.8 (7.2-11.7) fL Neut % (Auto) 87.7 H (50.0-75.0) % Lymph % (Auto) 5.1 L (20.0-40.0) % [place] % (Auto) 6.3 (0.0-10.0) % Eos % (Auto) 0.3 (0.0-4.0) % Baso % (Auto) 0.6 (0.0-2.0) % Neut # (Auto) 11.7 H (1.8-7.0) K/uL Lymph # (Auto) 0.7 L (1.0-4.3) K/uL [place] # (Auto) 0.8 (0.0-0.8) K/uL Eos # (Auto) 0.0 (0.0-0.7) K/uL Baso # (Auto) 0.1 (0.0-0.2) K/uL Neutrophils % (Manual) 71 (50-75) % Band Neutrophils % 17 H* (0-2) % Lymphocytes % (Manual) 4 L (20-40) % Monocytes % (Manual) 7 (0-10) % Myelocytes % 1 H (0-0) % Toxic Granulation Present Platelet Estimate Normal (NORMAL) Polychromasia Hypochromasia (manual) Anisocytosis (manual) Moderate PT (9.7-12.2) SECONDS INR APTT (21-34) SECONDS Puncture Site pCO2 (35-45) mm/Hg pO2 (30-55) mm/Hg HCO3 (21-28) mmol/L ABG pH (7.35-7.45) ABG Total CO2 (22-28) mmol/L ABG O2 Saturation (95-98) % ABG Base Excess (-2.0-3.0) mmol/L Sedrick Test ABG Potassium (3.6-5.2) mmol/L VBG pH (7.32-7.43) VBG pCO2 (40-60) mmHg VBG HCO3 mmol/L VBG Total CO2 (22-28) mmol/L VBG O2 Sat (Calc) (40-65) % VBG Base Excess (0.0-2.0) mmol/L VBG Potassium (3.6-5.2) mmol/L A-a O2 Difference mm/Hg Respiratory Index Glucose (65-105) mg/dl Lactate (0.7-2.1) mmol/L Liter Flow FiO2 % Crit Value Called To Crit Value Called By Crit Value Read Back Blood Gas Notified Time Sodium (132-148) mmol/L Potassium (3.6-5.2) mmol/L Chloride (98-107) mmol/L Carbon Dioxide (22-30) mmol/L Anion Gap (10-20) BUN (7-17) mg/dL Creatinine (0.7-1.2) mg/dL Est GFR ( Amer) Est GFR (Non-Af Amer) POC Glucose (mg/dL) 213 H 172 H (65-110) mg/dL Random Glucose (65-105) mg/dL Calcium (8.6-10.4) mg/dl Phosphorus (2.5-4.5) mg/dL Magnesium (1.6-2.3) mg/dL Total Bilirubin (0.2-1.3) mg/dL AST (14-36) U/L ALT (9-52) U/L Alkaline Phosphatase (38-126) U/L Total Creatine Kinase (30-135) U/L Troponin I (0.00-0.120) ng/mL Total Protein (6.3-8.3) g/dL Albumin (3.5-5.0) g/dL Globulin (2.2-3.9) gm/dL Albumin/Globulin Ratio (1.0-2.1) Arterial Blood Potassium (3.6-5.2) mmol/L Venous Blood Potassium (3.6-5.2) mmol/L Random Vancomycin ug/mL Blood Type Antibody Screen 01/22/18 01/22/18 01/22/18 Range/Units 15:50 13:10 13:02 WBC 14.0 H (4.8-10.8) K/uL RBC 2.08 L (3.80-5.20) Mil/uL Hgb 6.4 L* D (11.0-16.0) g/dL Hct 20.0 L (34.0-47.0) % MCV 96.1 D (81.0-99.0) fL MCH 30.9 (27.0-31.0) pg MCHC 32.2 L (33.0-37.0) g/dL RDW 22.3 H (11.5-14.5) % Plt Count 307 D (130-400) K/uL MPV 8.3 (7.2-11.7) fL Neut % (Auto) 83.1 H (50.0-75.0) % Lymph % (Auto) 7.3 L (20.0-40.0) % [place] % (Auto) 8.7 (0.0-10.0) % Eos % (Auto) 0.1 (0.0-4.0) % Baso % (Auto) 0.8 (0.0-2.0) % Neut # (Auto) 11.7 H (1.8-7.0) K/uL Lymph # (Auto) 1.0 (1.0-4.3) K/uL [place] # (Auto) 1.2 H (0.0-0.8) K/uL Eos # (Auto) 0.0 (0.0-0.7) K/uL Baso # (Auto) 0.1 (0.0-0.2) K/uL Neutrophils % (Manual) 76 H (50-75) % Band Neutrophils % 12 H* (0-2) % Lymphocytes % (Manual) 6 L (20-40) % Monocytes % (Manual) 6 (0-10) % Myelocytes % (0-0) % Toxic Granulation Platelet Estimate Normal (NORMAL) Polychromasia Slight Hypochromasia (manual) Slight Anisocytosis (manual) Slight PT (9.7-12.2) SECONDS INR APTT (21-34) SECONDS Puncture Site Dcath pCO2 49 H (35-45) mm/Hg pO2 37 L* (30-55) mm/Hg HCO3 29.6 H (21-28) mmol/L ABG pH 7.43 (7.35-7.45) ABG Total CO2 34.0 H (22-28) mmol/L ABG O2 Saturation 80.9 L (95-98) % ABG Base Excess 6.9 H (-2.0-3.0) mmol/L Sedrick Test Na ABG Potassium 3.1 L (3.6-5.2) mmol/L VBG pH (7.32-7.43) VBG pCO2 (40-60) mmHg VBG HCO3 mmol/L VBG Total CO2 (22-28) mmol/L VBG O2 Sat (Calc) (40-65) % VBG Base Excess (0.0-2.0) mmol/L VBG Potassium (3.6-5.2) mmol/L A-a O2 Difference 130.0 mm/Hg Respiratory Index 3.5 Glucose 174 H (65-105) mg/dl Lactate 0.6 L (0.7-2.1) mmol/L Liter Flow 3.0 FiO2 32.0 % Crit Value Called To Dr gordon Crit Value Called By [facility] Crit Value Read Back Y Blood Gas Notified Time 1600 Sodium 140.0 (132-148) mmol/L Potassium (3.6-5.2) mmol/L Chloride 105.0 (98-107) mmol/L Carbon Dioxide (22-30) mmol/L Anion Gap (10-20) BUN (7-17) mg/dL Creatinine (0.7-1.2) mg/dL Est GFR ( Amer) Est GFR (Non-Af Amer) POC Glucose (mg/dL) (65-110) mg/dL Random Glucose (65-105) mg/dL Calcium (8.6-10.4) mg/dl Phosphorus (2.5-4.5) mg/dL Magnesium 2.6 H (1.6-2.3) mg/dL Total Bilirubin (0.2-1.3) mg/dL AST (14-36) U/L ALT (9-52) U/L Alkaline Phosphatase (38-126) U/L Total Creatine Kinase 158 H (30-135) U/L Troponin I 0.0570 (0.00-0.120) ng/mL Total Protein (6.3-8.3) g/dL Albumin (3.5-5.0) g/dL Globulin (2.2-3.9) gm/dL Albumin/Globulin Ratio (1.0-2.1) Arterial Blood Potassium 3.1 L (3.6-5.2) mmol/L Venous Blood Potassium (3.6-5.2) mmol/L Random Vancomycin ug/mL Blood Type Antibody Screen 01/22/18 01/22/18 01/22/18 Range/Units 12:51 12:26 12:20 WBC (4.8-10.8) K/uL RBC (3.80-5.20) Mil/uL Hgb (11.0-16.0) g/dL Hct (34.0-47.0) % MCV (81.0-99.0) fL MCH (27.0-31.0) pg MCHC (33.0-37.0) g/dL RDW (11.5-14.5) % Plt Count (130-400) K/uL MPV (7.2-11.7) fL Neut % (Auto) (50.0-75.0) % Lymph % (Auto) (20.0-40.0) % [place] % (Auto) (0.0-10.0) % Eos % (Auto) (0.0-4.0) % Baso % (Auto) (0.0-2.0) % Neut # (Auto) (1.8-7.0) K/uL Lymph # (Auto) (1.0-4.3) K/uL [place] # (Auto) (0.0-0.8) K/uL Eos # (Auto) (0.0-0.7) K/uL Baso # (Auto) (0.0-0.2) K/uL Neutrophils % (Manual) (50-75) % Band Neutrophils % (0-2) % Lymphocytes % (Manual) (20-40) % Monocytes % (Manual) (0-10) % Myelocytes % (0-0) % Toxic Granulation Platelet Estimate (NORMAL) Polychromasia Hypochromasia (manual) Anisocytosis (manual) PT (9.7-12.2) SECONDS INR APTT (21-34) SECONDS Puncture Site pCO2 (35-45) mm/Hg pO2 25 L (30-55) mm/Hg HCO3 (21-28) mmol/L ABG pH (7.35-7.45) ABG Total CO2 (22-28) mmol/L ABG O2 Saturation (95-98) % ABG Base Excess (-2.0-3.0) mmol/L Sedrick Test ABG Potassium (3.6-5.2) mmol/L VBG pH 7.43 (7.32-7.43) VBG pCO2 53 (40-60) mmHg VBG HCO3 30.7 mmol/L VBG Total CO2 36.8 H (22-28) mmol/L VBG O2 Sat (Calc) 61.2 (40-65) % VBG Base Excess 9.1 H (0.0-2.0) mmol/L VBG Potassium 3.4 L (3.6-5.2) mmol/L A-a O2 Difference mm/Hg Respiratory Index Glucose 162 H (65-105) mg/dl Lactate 1.1 (0.7-2.1) mmol/L Liter Flow FiO2 % Crit Value Called To Crit Value Called By Crit Value Read Back Blood Gas Notified Time Sodium 139.0 140 (132-148) mmol/L Potassium 3.5 L (3.6-5.2) mmol/L Chloride 107.0 96 L (98-107) mmol/L Carbon Dioxide 34 H (22-30) mmol/L Anion Gap 13 (10-20) BUN 35 H (7-17) mg/dL Creatinine 4.4 H (0.7-1.2) mg/dL Est GFR ( Amer) 13 Est GFR (Non-Af Amer) 10 POC Glucose (mg/dL) (65-110) mg/dL Random Glucose 155 H (65-105) mg/dL Calcium 10.8 H (8.6-10.4) mg/dl Phosphorus (2.5-4.5) mg/dL Magnesium (1.6-2.3) mg/dL Total Bilirubin 0.7 (0.2-1.3) mg/dL AST 35 (14-36) U/L ALT 20 (9-52) U/L Alkaline Phosphatase 133 H D (38-126) U/L Total Creatine Kinase (30-135) U/L Troponin I (0.00-0.120) ng/mL Total Protein 7.5 (6.3-8.3) g/dL Albumin 3.0 L (3.5-5.0) g/dL Globulin 4.5 H (2.2-3.9) gm/dL Albumin/Globulin Ratio 0.7 L (1.0-2.1) Arterial Blood Potassium (3.6-5.2) mmol/L Venous Blood Potassium 3.4 L (3.6-5.2) mmol/L Random Vancomycin ug/mL Blood Type B POSITIVE Antibody Screen Negative 01/22/18 01/22/18 Range/Units 12:20 11:32 WBC (4.8-10.8) K/uL RBC (3.80-5.20) Mil/uL Hgb (11.0-16.0) g/dL Hct (34.0-47.0) % MCV (81.0-99.0) fL MCH (27.0-31.0) pg MCHC (33.0-37.0) g/dL RDW (11.5-14.5) % Plt Count (130-400) K/uL MPV (7.2-11.7) fL Neut % (Auto) (50.0-75.0) % Lymph % (Auto) (20.0-40.0) % [place] % (Auto) (0.0-10.0) % Eos % (Auto) (0.0-4.0) % Baso % (Auto) (0.0-2.0) % Neut # (Auto) (1.8-7.0) K/uL Lymph # (Auto) (1.0-4.3) K/uL [place] # (Auto) (0.0-0.8) K/uL Eos # (Auto) (0.0-0.7) K/uL Baso # (Auto) (0.0-0.2) K/uL Neutrophils % (Manual) (50-75) % Band Neutrophils % (0-2) % Lymphocytes % (Manual) (20-40) % Monocytes % (Manual) (0-10) % Myelocytes % (0-0) % Toxic Granulation Platelet Estimate (NORMAL) Polychromasia Hypochromasia (manual) Anisocytosis (manual) PT 11.1 (9.7-12.2) SECONDS INR 1.0 APTT 27 (21-34) SECONDS Puncture Site pCO2 (35-45) mm/Hg pO2 (30-55) mm/Hg HCO3 (21-28) mmol/L ABG pH (7.35-7.45) ABG Total CO2 (22-28) mmol/L ABG O2 Saturation (95-98) % ABG Base Excess (-2.0-3.0) mmol/L Sedrick Test ABG Potassium (3.6-5.2) mmol/L VBG pH (7.32-7.43) VBG pCO2 (40-60) mmHg VBG HCO3 mmol/L VBG Total CO2 (22-28) mmol/L VBG O2 Sat (Calc) (40-65) % VBG Base Excess (0.0-2.0) mmol/L VBG Potassium (3.6-5.2) mmol/L A-a O2 Difference mm/Hg Respiratory Index Glucose (65-105) mg/dl Lactate (0.7-2.1) mmol/L Liter Flow FiO2 % Crit Value Called To Crit Value Called By Crit Value Read Back Blood Gas Notified Time Sodium (132-148) mmol/L Potassium (3.6-5.2) mmol/L Chloride (98-107) mmol/L Carbon Dioxide (22-30) mmol/L Anion Gap (10-20) BUN (7-17) mg/dL Creatinine (0.7-1.2) mg/dL Est GFR ( Amer) Est GFR (Non-Af Amer) POC Glucose (mg/dL) 165 H (65-110) mg/dL Random Glucose (65-105) mg/dL Calcium (8.6-10.4) mg/dl Phosphorus (2.5-4.5) mg/dL Magnesium (1.6-2.3) mg/dL Total Bilirubin (0.2-1.3) mg/dL AST (14-36) U/L ALT (9-52) U/L Alkaline Phosphatase (38-126) U/L Total Creatine Kinase (30-135) U/L Troponin I (0.00-0.120) ng/mL Total Protein (6.3-8.3) g/dL Albumin (3.5-5.0) g/dL Globulin (2.2-3.9) gm/dL Albumin/Globulin Ratio (1.0-2.1) Arterial Blood Potassium (3.6-5.2) mmol/L Venous Blood Potassium (3.6-5.2) mmol/L Random Vancomycin ug/mL Blood Type Antibody Screen Laboratory Results - last 24 hr 01/22/18 01/22/18 01/22/18 11:32 12:20 12:20 WBC RBC Hgb Hct MCV MCH MCHC RDW Plt Count MPV Neut % (Auto) Lymph % (Auto) [place] % (Auto) Eos % (Auto) Baso % (Auto) Neut # (Auto) Lymph # (Auto) [place] # (Auto) Eos # (Auto) Baso # (Auto) Neutrophils % (Manual) Band Neutrophils % Lymphocytes % (Manual) Monocytes % (Manual) Myelocytes % Toxic Granulation Platelet Estimate Polychromasia Hypochromasia (manual) Anisocytosis (manual) PT 11.1 INR 1.0 APTT 27 Puncture Site pCO2 pO2 HCO3 ABG pH ABG Total CO2 ABG O2 Saturation ABG Base Excess Sedrick Test ABG Potassium VBG pH VBG pCO2 VBG HCO3 VBG Total CO2 VBG O2 Sat (Calc) VBG Base Excess VBG Potassium A-a O2 Difference Respiratory Index Glucose Lactate Liter Flow FiO2 Crit Value Called To Crit Value Called By Crit Value Read Back Blood Gas Notified Time Sodium 140 Potassium 3.5 L Chloride 96 L Carbon Dioxide 34 H Anion Gap 13 BUN 35 H Creatinine 4.4 H Est GFR ( Amer) 13 Est GFR (Non-Af Amer) 10 POC Glucose (mg/dL) 165 H Random Glucose 155 H Calcium 10.8 H Phosphorus Magnesium Total Bilirubin 0.7 AST 35 ALT 20 Alkaline Phosphatase 133 H D Total Creatine Kinase Troponin I Total Protein 7.5 Albumin 3.0 L Globulin 4.5 H Albumin/Globulin Ratio 0.7 L Arterial Blood Potassium Venous Blood Potassium Random Vancomycin Blood Type Antibody Screen 01/22/18 01/22/18 01/22/18 12:26 12:51 13:02 WBC RBC Hgb Hct MCV MCH MCHC RDW Plt Count MPV Neut % (Auto) Lymph % (Auto) [place] % (Auto) Eos % (Auto) Baso % (Auto) Neut # (Auto) Lymph # (Auto) [place] # (Auto) Eos # (Auto) Baso # (Auto) Neutrophils % (Manual) Band Neutrophils % Lymphocytes % (Manual) Monocytes % (Manual) Myelocytes % Toxic Granulation Platelet Estimate Polychromasia Hypochromasia (manual) Anisocytosis (manual) PT INR APTT Puncture Site pCO2 pO2 25 L HCO3 ABG pH ABG Total CO2 ABG O2 Saturation ABG Base Excess Sedrick Test ABG Potassium VBG pH 7.43 VBG pCO2 53 VBG HCO3 30.7 VBG Total CO2 36.8 H VBG O2 Sat (Calc) 61.2 VBG Base Excess 9.1 H VBG Potassium 3.4 L A-a O2 Difference Respiratory Index Glucose 162 H Lactate 1.1 Liter Flow FiO2 Crit Value Called To Crit Value Called By Crit Value Read Back Blood Gas Notified Time Sodium 139.0 Potassium Chloride 107.0 Carbon Dioxide Anion Gap BUN Creatinine Est GFR ( Amer) Est GFR (Non-Af Amer) POC Glucose (mg/dL) Random Glucose Calcium Phosphorus Magnesium 2.6 H Total Bilirubin AST ALT Alkaline Phosphatase Total Creatine Kinase 158 H Troponin I 0.0570 Total Protein Albumin Globulin Albumin/Globulin Ratio Arterial Blood Potassium Venous Blood Potassium 3.4 L Random Vancomycin Blood Type B POSITIVE Antibody Screen Negative 01/22/18 01/22/18 01/22/18 13:10 15:50 16:34 WBC 14.0 H RBC 2.08 L Hgb 6.4 L* D Hct 20.0 L MCV 96.1 D MCH 30.9 MCHC 32.2 L RDW 22.3 H Plt Count 307 D MPV 8.3 Neut % (Auto) 83.1 H Lymph % (Auto) 7.3 L [place] % (Auto) 8.7 Eos % (Auto) 0.1 Baso % (Auto) 0.8 Neut # (Auto) 11.7 H Lymph # (Auto) 1.0 [place] # (Auto) 1.2 H Eos # (Auto) 0.0 Baso # (Auto) 0.1 Neutrophils % (Manual) 76 H Band Neutrophils % 12 H* Lymphocytes % (Manual) 6 L Monocytes % (Manual) 6 Myelocytes % Toxic Granulation Platelet Estimate Normal Polychromasia Slight Hypochromasia (manual) Slight Anisocytosis (manual) Slight PT INR APTT Puncture Site Dcath pCO2 49 H pO2 37 L* HCO3 29.6 H ABG pH 7.43 ABG Total CO2 34.0 H ABG O2 Saturation 80.9 L ABG Base Excess 6.9 H Sedrick Test Na ABG Potassium 3.1 L VBG pH VBG pCO2 VBG HCO3 VBG Total CO2 VBG O2 Sat (Calc) VBG Base Excess VBG Potassium A-a O2 Difference 130.0 Respiratory Index 3.5 Glucose 174 H Lactate 0.6 L Liter Flow 3.0 FiO2 32.0 Crit Value Called To Dr gordon Crit Value Called By Diego sanidad Crit Value Read Back Y Blood Gas Notified Time 1600 Sodium 140.0 Potassium Chloride 105.0 Carbon Dioxide Anion Gap BUN Creatinine Est GFR ( Amer) Est GFR (Non-Af Amer) POC Glucose (mg/dL) 172 H Random Glucose Calcium Phosphorus Magnesium Total Bilirubin AST ALT Alkaline Phosphatase Total Creatine Kinase Troponin I Total Protein Albumin Globulin Albumin/Globulin Ratio Arterial Blood Potassium 3.1 L Venous Blood Potassium Random Vancomycin Blood Type Antibody Screen 01/22/18 01/23/18 01/23/18 23:26 06:18 06:19 WBC 13.3 H RBC 3.63 L Hgb 10.5 L D Hct 32.5 L MCV 89.6 D MCH 29.0 MCHC 32.4 L RDW 20.9 H Plt Count 330 MPV 7.8 Neut % (Auto) 87.7 H Lymph % (Auto) 5.1 L [place] % (Auto) 6.3 Eos % (Auto) 0.3 Baso % (Auto) 0.6 Neut # (Auto) 11.7 H Lymph # (Auto) 0.7 L [place] # (Auto) 0.8 Eos # (Auto) 0.0 Baso # (Auto) 0.1 Neutrophils % (Manual) 71 Band Neutrophils % 17 H* Lymphocytes % (Manual) 4 L Monocytes % (Manual) 7 Myelocytes % 1 H Toxic Granulation Present Platelet Estimate Normal Polychromasia Hypochromasia (manual) Anisocytosis (manual) Moderate PT INR APTT Puncture Site pCO2 pO2 HCO3 ABG pH ABG Total CO2 ABG O2 Saturation ABG Base Excess Sedrick Test ABG Potassium VBG pH VBG pCO2 VBG HCO3 VBG Total CO2 VBG O2 Sat (Calc) VBG Base Excess VBG Potassium A-a O2 Difference Respiratory Index Glucose Lactate Liter Flow FiO2 Crit Value Called To Crit Value Called By Crit Value Read Back Blood Gas Notified Time Sodium Potassium Chloride Carbon Dioxide Anion Gap BUN Creatinine Est GFR ( Amer) Est GFR (Non-Af Amer) POC Glucose (mg/dL) 213 H Random Glucose Calcium Phosphorus Magnesium Total Bilirubin AST ALT Alkaline Phosphatase Total Creatine Kinase Troponin I Total Protein Albumin Globulin Albumin/Globulin Ratio Arterial Blood Potassium Venous Blood Potassium Random Vancomycin 22.0 Blood Type Antibody Screen 01/23/18 01/23/18 06:19 06:51 WBC RBC Hgb Hct MCV MCH MCHC RDW Plt Count MPV Neut % (Auto) Lymph % (Auto) [place] % (Auto) Eos % (Auto) Baso % (Auto) Neut # (Auto) Lymph # (Auto) [place] # (Auto) Eos # (Auto) Baso # (Auto) Neutrophils % (Manual) Band Neutrophils % Lymphocytes % (Manual) Monocytes % (Manual) Myelocytes % Toxic Granulation Platelet Estimate Polychromasia Hypochromasia (manual) Anisocytosis (manual) PT INR APTT Puncture Site pCO2 pO2 HCO3 ABG pH ABG Total CO2 ABG O2 Saturation ABG Base Excess Sedrick Test ABG Potassium VBG pH VBG pCO2 VBG HCO3 VBG Total CO2 VBG O2 Sat (Calc) VBG Base Excess VBG Potassium A-a O2 Difference Respiratory Index Glucose Lactate Liter Flow FiO2 Crit Value Called To Crit Value Called By Crit Value Read Back Blood Gas Notified Time Sodium 138 Potassium 3.6 Chloride 98 Carbon Dioxide 30 Anion Gap 15 BUN 42 H Creatinine 4.8 H Est GFR ( Amer) 11 Est GFR (Non-Af Amer) 9 POC Glucose (mg/dL) 221 H Random Glucose 208 H Calcium 10.8 H Phosphorus 3.0 Magnesium 2.5 H Total Bilirubin 0.8 AST 29 ALT 19 Alkaline Phosphatase 123 Total Creatine Kinase Troponin I Total Protein 7.3 Albumin 3.0 L Globulin 4.4 H Albumin/Globulin Ratio 0.7 L Arterial Blood Potassium Venous Blood Potassium Random Vancomycin Blood Type Antibody Screen EKG/Cardiology Studies: Cardiology / EKG Studies 01/22/18 11:58 EKG [ELECTROCARDIOGRAM] Stat Comment: Mode Of Transportation: STRETCHER Reason For Exam: fever 01/22/18 12:27 EKG [ELECTROCARDIOGRAM] Stat Comment: Mode Of Transportation: STRETCHER Reason For Exam: fever Fingerstick Blood Sugar Results: 221 Critical Care Progress Note - Nutrition Nutrition: Nutrition Category Date Time Status NPO Diet [DIET] Diets 01/23/18 Breakfast Active Assessment/Plan - Assessment and Plan (Free Text) Assessment: This is a 58 year old female with PMHx of 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 Plan: Neuro: A: AMS - Likely 2/2 sepsis Cardio: A: Hypotension - s/p 500cc bolus - S/p 2 units of PRBCs 01/22 - Currently on Levo A: HF with rEF Systolic Dysfunction - Echo (12/05/17): EF 30-35% - Lexiscan scheduled for 12/31/17: no stress induced ischemia; EF 45-55% A: Hx Hypertension, HLD - Imdur 60mg PO daily and Metoprolol 25mg PO BID- HELD due to sepsis - Lipid panel from 11/29/17: TG 116 Chol 131 LDL 49 HDL 29 GI: A: Hx Constipation - Colace 100mg PO BID, Dulcolax PRN Endo: A: T2DM - Accuchecks - A1c (11/29/17): 5.8 - ISS - low - Hypoglycemic Protocol Renal: A: ESRD on HD MWF with R permacath, failed L AVF??, oliguria -- Nephrology consulted Dr. Dominguez/ oPoja - Restarted Nephrovite and Renvela Heme/Onc: A: Anemia, anemia of chronic disease - Baseline hemoglobin 9-10s - 6.4 on admission - Transfused 2 units PRBCs 01/22 - Continue to monitor A: HIV -- Dr. Villegas Consulted - Restarted Truvada Q48H - CD4 count (12/05/17): 143 - Viral load (12/05/17): not detected ID: A: Sepsis -- Dr. Sinclair consulted -- Dr. 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 - Started Vanco 1 gram MWF, Zosyn Q6H (renally)- vanco random 22 - Lactate 1.1, follow up serial post op - Tylenol, dilaudid PRN for pain - Wound gram negative - F/U oliveira cultures Prophylaxis: - Protonix - SCDs, VTE c/i due to anemia - PT /OT - NPO for now 2/2 lethargy, AMS - will advance as tolerated _ FULL CODE - Will attempt to place TLC - Son Dilip Zhong is unofficial health proxy; his phone number to contact [phone] Virginia Patel DO, PGY-1 <Jayesh Beaver - Last Filed: 01/24/18 18:59> CCU Objective - Vital Signs / Intake & Output Vital Signs (Last 4 hours): Vital Signs Temp Pulse Resp BP Pulse Ox 01/24/18 18:00 86 15 100 01/24/18 17:45 86 20 100 01/24/18 17:38 85 16 99/49 L 99 01/24/18 17:33 86 7 L 118/41 L 100 01/24/18 17:30 86 21 100 01/24/18 17:15 87 16 100 01/24/18 17:03 91 H 18 99/49 L 100 01/24/18 17:00 87 0 L 100 01/24/18 16:45 86 0 L 100 01/24/18 16:33 87 5 L 125/47 L 100 01/24/18 16:30 85 0 L 100 01/24/18 16:15 83 22 100 01/24/18 16:03 83 0 L 107/31 L 100 01/24/18 16:00 99.1 F 83 0 L 100 01/24/18 15:47 84 0 L 117/27 L 100 01/24/18 15:45 83 4 L 100 01/24/18 15:32 84 12 118/26 L 100 01/24/18 15:30 80 0 L 100 01/24/18 15:17 81 5 L 111/24 L 100 01/24/18 15:15 80 8 L 100 01/24/18 15:02 83 10 L 115/22 L 100 01/24/18 15:00 86 7 L 100 Intake and Output (Last 8hrs): Intake & Output 01/24/18 01/24/18 01/24/18 06:59 14:59 22:59 Intake Total 558.2 1059.0 620.0 Output Total 0 0 0 Balance 558.2 1059.0 620.0 Weight 170 lb 4.8 oz Intake: IV 254 14 250 Intake, IV Amount 304.2 800.0 150.0 Right Shoulder 300 Right Subclavian 304.2 500.0 150.0 Tube Feeding 45 120 Other 200 100 Output: Urine 0 0 0 Urine, Voided 0 0 0 Stool 0 0 0 - Medications Active Medications: Active Medications Generic Name Dose Route Start Last Admin Trade Name Freq PRN Reason Stop Dose Admin Acetaminophen 650 mg 01/22/18 14:22 Tylenol 325mg Tab PO Q6 PRN Fever >100.4 F Acetaminophen 650 mg 01/22/18 14:38 Tylenol 325mg Tab PO Q6 PRN Pain, Mild (1-3) Bisacodyl 10 mg 01/22/18 14:31 01/24/18 10:15 Dulcolax IA 10 mg ONCE PRN Administration Constipation Dextrose 0 ml 01/22/18 16:27 Dextrose 50% Inj IV STAT PRN Hypoglycemia Protocol Protocol Dextrose 0 gm 01/22/18 16:27 Glutose 15 PO ONCE PRN Hypoglycemia Protocol Protocol Docusate Sodium 100 mg 01/22/18 18:00 01/24/18 17:33 Colace PO 100 mg BID KATARINA Administration Emtricitabine/Tenofovir 1 tab 01/22/18 14:30 01/24/18 14:44 Truvada 200 Mg-300 Mg PO 1 tab Q48H KATARINA Administration Protocol Epoetin Alonso 10,000 unit 01/24/18 09:00 01/24/18 17:15 Procrit IV 10,[address] [facility] Administration Glucagon 0 mg 01/22/18 16:27 Glucagen Diagnostic Kit IM STAT PRN Hypoglycemia Protocol Protocol Hydrocortisone Sodium Succinate 100 mg 01/24/18 09:00 01/24/18 17:32 Solu-Cortef IV 100 mg Q8H KATARINA Administration Hydromorphone HCl 0.5 mg 01/24/18 08:47 Dilaudid IVP Q6H PRN Pain, moderate (4-7) Vancomycin/Sodium Chloride 1 gm in 200 mls @ 133 mls/hr 01/24/18 09:00 10:23 Vancomycin 1 Gm/Ns 200 Ml IVPB 01/29/18 09:01 133 mls/hr F KATARINA Administration Protocol Dextrose 1,000 mls @ 0 mls/hr 01/22/18 16:27 Dextrose 5% In Water 1000 Ml IV .Q0M PRN Hypoglycemia Protocol Protocol Per Protocol Norepinephrine Bitartrate 4 mg 254 mls @ 15.24 mls/hr 01/22/18 18:18 17:38 / Dextrose IV 10 mcg/min .[id number] PRN 38.1 mls/hr TITRATE PER MD ORDER Administration Protocol 4 MCG/MIN Meropenem 500 mg/ Sodium 100 mls @ 100 mls/hr 01/23/18 10:00 01/24/18 09:49 Chloride IVPB 100 mls/hr Q12 KATARINA Administration Protocol Insulin Human Regular 0 unit 01/24/18 12:00 01/24/18 17:35 Novolin R SC 4 u Q6 KATARINA Administration Protocol Midodrine 5 mg 01/24/18 10:00 01/24/18 17:33 Proamatine PO 5 mg TID KATARINA Administration Pantoprazole Sodium 40 mg 01/23/18 10:00 01/24/18 10:07 Protonix Inj IVP 40 mg DAILY KATARINA Administration Sevelamer Carbonate 800 mg 01/22/18 18:00 01/24/18 17:33 Renvela PO 800 mg TID KATARINA Administration Simethicone 80 mg 01/22/18 18:00 01/24/18 17:33 Mylicon Chew Tab PO 80 mg QID KATARINA Administration Vitamin B Complex/Vit C/Folic Acid 1 tab 01/23/18 10:00 01/24/18 10:30 Nephro-Carlos PO 1 tab DAILY KATARINA Administration - Patient Studies Lab Studies: Microbiology Studies 01/23/18 11:00 Gram Stain - Final Thigh - Left Wound Culture - Preliminary Gram Negative Jose Alfredo 01/22/18 Unknown Gram Stain - Final Leg - Left Wound Culture - Final Pseudomonas Aeruginosa 01/22/18 12:15 Blood Culture - Preliminary Blood-Venous Gram Positive Cocci Gram Stain - Final 01/22/18 11:45 S.aureus & Coag-Neg Staph PNA FISH - Final Blood-Venous Blood Culture - Preliminary Gram Positive Cocci Gram Stain - Final 01/22/18 14:57 MRSA Culture (Admit) - Final Naris MRSA NOT DETECTED Lab Studies 01/24/18 01/24/18 01/24/18 Range/Units 17:26 11:21 09:11 WBC (4.8-10.8) K/uL RBC (3.80-5.20) Mil/uL Hgb (11.0-16.0) g/dL Hct (34.0-47.0) % MCV (81.0-99.0) fL MCH (27.0-31.0) pg MCHC (33.0-37.0) g/dL RDW (11.5-14.5) % Plt Count (130-400) K/uL MPV (7.2-11.7) fL Neut % (Auto) (50.0-75.0) % Lymph % (Auto) (20.0-40.0) % [place] % (Auto) (0.0-10.0) % Eos % (Auto) (0.0-4.0) % Baso % (Auto) (0.0-2.0) % Neut # (Auto) (1.8-7.0) K/uL Lymph # (Auto) (1.0-4.3) K/uL [place] # (Auto) (0.0-0.8) K/uL Eos # (Auto) (0.0-0.7) K/uL Baso # (Auto) (0.0-0.2) K/uL Neutrophils % (Manual) (50-75) % Lymphocytes % (Manual) (20-40) % Monocytes % (Manual) (0-10) % Platelet Estimate (NORMAL) Polychromasia Hypochromasia (manual) Anisocytosis (manual) pO2 34 (30-55) mm/Hg VBG pH 7.38 (7.32-7.43) VBG pCO2 47 (40-60) mmHg VBG HCO3 25.6 mmol/L VBG Total CO2 29.2 H (22-28) mmol/L VBG O2 Sat (Calc) 70.9 H (40-65) % VBG Base Excess 2.0 (0.0-2.0) mmol/L VBG Potassium 4.1 (3.6-5.2) mmol/L Glucose 506 H* D (65-105) mg/dl Lactate 1.6 (0.7-2.1) mmol/L Liter Flow 4.0 Crit Value Called To Dr jayesh beaver Crit Value Called By Dorys schofield hatchery laborer Crit Value Read Back Y Blood Gas Notified Time 915 Sodium 128.0 L (132-148) mmol/L Potassium (3.6-5.2) mmol/L Chloride 96.0 L (98-107) mmol/L Carbon Dioxide (22-30) mmol/L Anion Gap (10-20) BUN (7-17) mg/dL Creatinine (0.7-1.2) mg/dL Est GFR ( Amer) Est GFR (Non-Af Amer) POC Glucose (mg/dL) 232 H 274 H (65-110) mg/dL Random Glucose (65-105) mg/dL Calcium (8.6-10.4) mg/dl Phosphorus (2.5-4.5) mg/dL Magnesium (1.6-2.3) mg/dL Total Bilirubin (0.2-1.3) mg/dL AST (14-36) U/L ALT (9-52) U/L Alkaline Phosphatase (38-126) U/L Total Protein (6.3-8.3) g/dL Albumin (3.5-5.0) g/dL Globulin (2.2-3.9) gm/dL Albumin/Globulin Ratio (1.0-2.1) Venous Blood Potassium 4.1 (3.6-5.2) mmol/L Vancomycin Trough (5.0-10.0) ug/mL 01/24/18 01/24/18 01/24/18 Range/Units 06:14 06:14 06:14 WBC 19.0 H (4.8-10.8) K/uL RBC 3.42 L (3.80-5.20) Mil/uL Hgb 10.1 L (11.0-16.0) g/dL Hct 30.4 L (34.0-47.0) % MCV 89.1 (81.0-99.0) fL MCH 29.7 (27.0-31.0) pg MCHC 33.3 (33.0-37.0) g/dL RDW 17.9 H (11.5-14.5) % Plt Count 306 (130-400) K/uL MPV 8.0 (7.2-11.7) fL Neut % (Auto) 91.0 H (50.0-75.0) % Lymph % (Auto) 3.0 L (20.0-40.0) % [place] % (Auto) 6.0 (0.0-10.0) % Eos % (Auto) 0.0 (0.0-4.0) % Baso % (Auto) 0.0 (0.0-2.0) % Neut # (Auto) 17.0 H (1.8-7.0) K/uL Lymph # (Auto) 0.6 L (1.0-4.3) K/uL [place] # (Auto) 1.2 H (0.0-0.8) K/uL Eos # (Auto) 0.0 (0.0-0.7) K/uL Baso # (Auto) 0.0 (0.0-0.2) K/uL Neutrophils % (Manual) 90 H (50-75) % Lymphocytes % (Manual) 4 L (20-40) % Monocytes % (Manual) 6 (0-10) % Platelet Estimate Normal (NORMAL) Polychromasia Slight Hypochromasia (manual) Slight Anisocytosis (manual) Slight pO2 (30-55) mm/Hg VBG pH (7.32-7.43) VBG pCO2 (40-60) mmHg VBG HCO3 mmol/L VBG Total CO2 (22-28) mmol/L VBG O2 Sat (Calc) (40-65) % VBG Base Excess (0.0-2.0) mmol/L VBG Potassium (3.6-5.2) mmol/L Glucose (65-105) mg/dl Lactate (0.7-2.1) mmol/L Liter Flow Crit Value Called To Crit Value Called By Crit Value Read Back Blood Gas Notified Time Sodium 139 (132-148) mmol/L Potassium 2.9 L (3.6-5.2) mmol/L Chloride 109 H (98-107) mmol/L Carbon Dioxide 21 L (22-30) mmol/L Anion Gap 11 (10-20) BUN 37 H (7-17) mg/dL Creatinine 3.8 H (0.7-1.2) mg/dL Est GFR ( Amer) 15 Est GFR (Non-Af Amer) 12 POC Glucose (mg/dL) (65-110) mg/dL Random Glucose 242 H (65-105) mg/dL Calcium 7.0 L (8.6-10.4) mg/dl Phosphorus 2.6 (2.5-4.5) mg/dL Magnesium 1.6 (1.6-2.3) mg/dL Total Bilirubin 0.2 (0.2-1.3) mg/dL AST 18 (14-36) U/L ALT 21 (9-52) U/L Alkaline Phosphatase 66 (38-126) U/L Total Protein 4.3 L (6.3-8.3) g/dL Albumin 1.7 L D (3.5-5.0) g/dL Globulin 2.7 (2.2-3.9) gm/dL Albumin/Globulin Ratio 0.6 L (1.0-2.1) Venous Blood Potassium (3.6-5.2) mmol/L Vancomycin Trough 16.3 H (5.0-10.0) ug/mL 01/24/18 01/23/18 01/23/18 Range/Units 05:42 23:44 16:06 WBC (4.8-10.8) K/uL RBC (3.80-5.20) Mil/uL Hgb (11.0-16.0) g/dL Hct (34.0-47.0) % MCV (81.0-99.0) fL MCH (27.0-31.0) pg MCHC (33.0-37.0) g/dL RDW (11.5-14.5) % Plt Count (130-400) K/uL MPV (7.2-11.7) fL Neut % (Auto) (50.0-75.0) % Lymph % (Auto) (20.0-40.0) % [place] % (Auto) (0.0-10.0) % Eos % (Auto) (0.0-4.0) % Baso % (Auto) (0.0-2.0) % Neut # (Auto) (1.8-7.0) K/uL Lymph # (Auto) (1.0-4.3) K/uL [place] # (Auto) (0.0-0.8) K/uL Eos # (Auto) (0.0-0.7) K/uL Baso # (Auto) (0.0-0.2) K/uL Neutrophils % (Manual) (50-75) % Lymphocytes % (Manual) (20-40) % Monocytes % (Manual) (0-10) % Platelet Estimate (NORMAL) Polychromasia Hypochromasia (manual) Anisocytosis (manual) pO2 (30-55) mm/Hg VBG pH (7.32-7.43) VBG pCO2 (40-60) mmHg VBG HCO3 mmol/L VBG Total CO2 (22-28) mmol/L VBG O2 Sat (Calc) (40-65) % VBG Base Excess (0.0-2.0) mmol/L VBG Potassium (3.6-5.2) mmol/L Glucose (65-105) mg/dl Lactate (0.7-2.1) mmol/L Liter Flow Crit Value Called To Crit Value Called By Crit Value Read Back Blood Gas Notified Time Sodium (132-148) mmol/L Potassium (3.6-5.2) mmol/L Chloride (98-107) mmol/L Carbon Dioxide (22-30) mmol/L Anion Gap (10-20) BUN (7-17) mg/dL Creatinine (0.7-1.2) mg/dL Est GFR ( Amer) Est GFR (Non-Af Amer) POC Glucose (mg/dL) 316 H 360 H 341 H (65-110) mg/dL Random Glucose (65-105) mg/dL Calcium (8.6-10.4) mg/dl Phosphorus (2.5-4.5) mg/dL Magnesium (1.6-2.3) mg/dL Total Bilirubin (0.2-1.3) mg/dL AST (14-36) U/L ALT (9-52) U/L Alkaline Phosphatase (38-126) U/L Total Protein (6.3-8.3) g/dL Albumin (3.5-5.0) g/dL Globulin (2.2-3.9) gm/dL Albumin/Globulin Ratio (1.0-2.1) Venous Blood Potassium (3.6-5.2) mmol/L Vancomycin Trough (5.0-10.0) ug/mL Laboratory Results - last 24 hr 01/23/18 01/23/18 01/24/18 16:06 23:44 05:42 WBC RBC Hgb Hct MCV MCH MCHC RDW Plt Count MPV Neut % (Auto) Lymph % (Auto) [place] % (Auto) Eos % (Auto) Baso % (Auto) Neut # (Auto) Lymph # (Auto) [place] # (Auto) Eos # (Auto) Baso # (Auto) Neutrophils % (Manual) Lymphocytes % (Manual) Monocytes % (Manual) Platelet Estimate Polychromasia Hypochromasia (manual) Anisocytosis (manual) pO2 VBG pH VBG pCO2 VBG HCO3 VBG Total CO2 VBG O2 Sat (Calc) VBG Base Excess VBG Potassium Glucose Lactate Liter Flow Crit Value Called To Crit Value Called By Crit Value Read Back Blood Gas Notified Time Sodium Potassium Chloride Carbon Dioxide Anion Gap BUN Creatinine Est GFR ( Amer) Est GFR (Non-Af Amer) POC Glucose (mg/dL) 341 H 360 H 316 H Random Glucose Calcium Phosphorus Magnesium Total Bilirubin AST ALT Alkaline Phosphatase Total Protein Albumin Globulin Albumin/Globulin Ratio Venous Blood Potassium Vancomycin Trough 01/24/18 01/24/18 01/24/18 06:14 06:14 06:14 WBC 19.0 H RBC 3.42 L Hgb 10.1 L Hct 30.4 L MCV 89.1 MCH 29.7 MCHC 33.3 RDW 17.9 H Plt Count 306 MPV 8.0 Neut % (Auto) 91.0 H Lymph % (Auto) 3.0 L [place] % (Auto) 6.0 Eos % (Auto) 0.0 Baso % (Auto) 0.0 Neut # (Auto) 17.0 H Lymph # (Auto) 0.6 L [place] # (Auto) 1.2 H Eos # (Auto) 0.0 Baso # (Auto) 0.0 Neutrophils % (Manual) 90 H Lymphocytes % (Manual) 4 L Monocytes % (Manual) 6 Platelet Estimate Normal Polychromasia Slight Hypochromasia (manual) Slight Anisocytosis (manual) Slight pO2 VBG pH VBG pCO2 VBG HCO3 VBG Total CO2 VBG O2 Sat (Calc) VBG Base Excess VBG Potassium Glucose Lactate Liter Flow Crit Value Called To Crit Value Called By Crit Value Read Back Blood Gas Notified Time Sodium 139 Potassium 2.9 L Chloride 109 H Carbon Dioxide 21 L Anion Gap 11 BUN 37 H Creatinine 3.8 H Est GFR ( Amer) 15 Est GFR (Non-Af Amer) 12 POC Glucose (mg/dL) Random Glucose 242 H Calcium 7.0 L Phosphorus 2.6 Magnesium 1.6 Total Bilirubin 0.2 AST 18 ALT 21 Alkaline Phosphatase 66 Total Protein 4.3 L Albumin 1.7 L D Globulin 2.7 Albumin/Globulin Ratio 0.6 L Venous Blood Potassium Vancomycin Trough 16.3 H 01/24/18 01/24/18 01/24/18 09:11 11:21 17:26 WBC RBC Hgb Hct MCV MCH MCHC RDW Plt Count MPV Neut % (Auto) Lymph % (Auto) [place] % (Auto) Eos % (Auto) Baso % (Auto) Neut # (Auto) Lymph # (Auto) [place] # (Auto) Eos # (Auto) Baso # (Auto) Neutrophils % (Manual) Lymphocytes % (Manual) Monocytes % (Manual) Platelet Estimate Polychromasia Hypochromasia (manual) Anisocytosis (manual) pO2 34 VBG pH 7.38 VBG pCO2 47 VBG HCO3 25.6 VBG Total CO2 29.2 H VBG O2 Sat (Calc) 70.9 H VBG Base Excess 2.0 VBG Potassium 4.1 Glucose 506 H* D Lactate 1.6 Liter Flow 4.0 Crit Value Called To Dr jayesh beaver Crit Value Called By Dorys schofield hatchery laborer Crit Value Read Back Y Blood Gas Notified Time 915 Sodium 128.0 L Potassium Chloride 96.0 L Carbon Dioxide Anion Gap BUN Creatinine Est GFR ( Amer) Est GFR (Non-Af Amer) POC Glucose (mg/dL) 274 H 232 H Random Glucose Calcium Phosphorus Magnesium Total Bilirubin AST ALT Alkaline Phosphatase Total Protein Albumin Globulin Albumin/Globulin Ratio Venous Blood Potassium 4.1 Vancomycin Trough Critical Care Progress Note - Nutrition Nutrition: Nutrition Category Date Time Status NPO Diet [DIET] Diets 01/23/18 Breakfast Active Assessment/Plan - Assessment and Plan (Free Text) Plan: Above patient seen and examined at bedside post op. PAtient was hypotensive requiring pressors. EBL 400 ml verbal signout. 1 unit of blood infused post op. -Septic shock -ESRD on HD -PVD -Continue to resusitate patient Above resident documents my clinical findings and management. - Date & Time Date: 01/23/18 Time: 19:00
--- NOTE | 2018-01-23 11:23 | PCM.SURG1 ---
Surgeon's Initial Post Op Note - Surgeon's Notes Surgeon: MD Yahir [employer] Professor: JARRETT MunozY2 Pre-Operative Diagnosis: Left amputation stump infection/necrosis/gangrene Operative Findings: purulent fluid in infected stump Post-Operative Diagnosis: same Operation Performed: Left Above knee amputation above infected tissue Specimen/Specimens Removed: Infected portion of left leg stump Estimated Blood Loss: EBL {In ML}: 400 Date of Surgery/Procedure: 01/23/18 Time of Surgery/Procedure: 11:20
[2018-01-23] MEDS: Simethicone 80 mg Chewtab PO SCH ×3 (11:43→22:04)
[2018-01-23] MEDS: Multivitamin Vitamin B Complex (Nephro-Vite) Tab PO SCH (11:43)
[2018-01-23 13:34] LABS: BASO % 0.3 % (0.0-2.0); EOS % 0.2 % (0.0-4.0); LYMPH % 6.4 % (20.0-40.0); MEAN CELL VOLUME 88.3 fL (81.0-99.0); MEAN CORPUSCULAR HEMOGLOBIN 29.1 pg (27.0-31.0); MONO # 0.9 K/uL (0.0-0.8); MONO % 6.4 % (0.0-10.0); NEUT # 12.9 K/uL (1.8-7.0); NEUT % 86.7 % (50.0-75.0); NRBC % 0.2 % (0.0-2.0); PLATELET COUNT 327 K/uL (130-400); RBC 3.42 Mil/uL (3.80-5.20); RED CELL DISTRIBUTION WIDTH 18.9 % (11.5-14.5); WHITE BLOOD COUNT 14.8 K/uL (4.8-10.8)
[2018-01-23 13:58] LABS: TROPONIN I 0.06 ng/mL (0.00-0.120)
[2018-01-23 14:00] LABS: ALB/GLOB RATIO 0.7 (1.0-2.1); ALBUMIN 2.3 g/dL (3.5-5.0); CALCIUM 9.2 mg/dl (8.6-10.4)
[2018-01-23 14:18] LABS: BANDS 24 % (0-2); LYMPHOCYTE 10 % (20-40); MONOCYTE 4 % (0-10); MYELOCYTE 2 % (0-0); NEUTROPHIL 60 % (50-75); TOTAL CELLS COUNTED 100
[2018-01-23 14:19] LABS: ANISOCYTOSIS MODERATE; HYPOCHROMIC SLIGHT; PLATELET ESTIMATE NORMAL (NORMAL)
[2018-01-23 14:20] LABS: TARGET CELLS SLIGHT
--- NOTE | 2018-01-23 15:18 | CP.PCM.CON ---
History of Present Illness - History of Present Illness History of Present Illness: dictated Past Patient History - Infectious Disease Hx of Infectious Diseases: None - Past Medical History & Family History Past Medical History?: Yes - Past Social History Smoking Status: Never Smoked - CARDIAC Hx Congestive Heart Failure: Yes Hx Hypertension: Yes - PULMONARY Hx Respiratory Disorders: No - NEUROLOGICAL Hx Dementia: Yes - HEENT Hx HEENT Problems: Yes (wears glasses) Hx Glaucoma: Yes - RENAL Hx Chronic Kidney Disease: Yes - ENDOCRINE/METABOLIC Hx Hyperthyroidism: Yes Hx Hypothyroidism: Yes - HEMATOLOGICAL/ONCOLOGICAL Hx Human Immunodeficiency Virus (HIV): Yes - INTEGUMENTARY Hx Dermatological Problems: No - MUSCULOSKELETAL/RHEUMATOLOGICAL Hx Falls: Yes - GASTROINTESTINAL Hx Gastrointestinal Disorders: No - GENITOURINARY/GYNECOLOGICAL Hx Genitourinary Disorders: Yes Other/Comment: oliguria, on hemodialysis MWF - PSYCHIATRIC Hx Anxiety: Yes Hx Substance Use: No - SURGICAL HISTORY Hx Amputation: Yes (Right BKA/ LEFT BKA) Other/Comment: vascular sx LLE - ANESTHESIA Hx Anesthesia: Yes Hx Anesthesia Reactions: No Hx Malignant Hyperthermia: No Meds Allergies/Adverse Reactions: Allergies Allergy/AdvReac Type Severity Reaction Status Date / Time No Known Allergies Allergy Verified 01/22/18 11:38 - Medications Medications: Current Medications Acetaminophen (Tylenol 325mg Tab) 650 mg PO Q6 PRN PRN Reason: Fever >100.4 F Acetaminophen (Tylenol 325mg Tab) 650 mg PO Q6 PRN PRN Reason: Pain, Mild (1-3) Bisacodyl (Dulcolax) 10 mg W[place] ONCE PRN PRN Reason: Constipation Dextrose (Dextrose 50% Inj) 0 ml IV STAT PRN; Protocol PRN Reason: Hypoglycemia Protocol Dextrose (Glutose 15) 0 gm PO ONCE PRN; Protocol PRN Reason: Hypoglycemia Protocol Docusate Sodium (Colace) 100 mg PO BID [facility] Last Admin: 01/23/18 11:43 Dose: Not Given Emtricitabine/Tenofovir (Truvada 200 Mg-300 Mg) 1 tab PO Q48H KATARINA PRN Reason: Protocol Last Admin: 01/22/18 14:30 Dose: Not Given Epoetin Alonso (Procrit) 10,000 unit IV MWF [facility] Glucagon (Glucagen Diagnostic Kit) 0 mg IM STAT PRN; Protocol PRN Reason: Hypoglycemia Protocol Hydromorphone HCl (Dilaudid) 0.5 mg IVP Q4H PRN PRN Reason: Pain, moderate (4-7) Vancomycin/Sodium Chloride (Vancomycin 1 Gm/Ns 200 Ml) 1 gm in 200 mls @ 133 mls/hr IVPB MWF K[facility]INA PRN Reason: Protocol Stop: 01/29/18 09:01 Dextrose (Dextrose 5% In Water 1000 Ml) 1,000 mls @ 0 mls/hr IV .Q0M PRN; Protocol; Per Protocol PRN Reason: Hypoglycemia Protocol Norepinephrine Bitartrate 4 mg (/ Dextrose) 254 mls @ 15.24 mls/hr IV .[id number] PRN; Protocol; 4 MCG/MIN PRN Reason: TITRATE PER MD ORDER Last Titration: 01/23/18 07:00 Dose: 12 mcg/min, 45.72 mls/hr Meropenem 500 mg/ Sodium (Chloride) 100 mls @ 100 mls/hr IVPB Q12 KATARINA PRN Reason: Protocol Last Admin: 01/23/18 09:26 Dose: 100 mls Insulin Human Regular (Novolin R) 0 unit SC Q6 KATARINA PRN Reason: Protocol Last Admin: 01/23/18 06:00 Dose: Not Given Pantoprazole Sodium (Protonix Inj) 40 mg IVP DAILY [facility] Last Admin: 01/23/18 11:43 Dose: Not Given Sevelamer Carbonate (Renvela) 800 mg PO TID [facility] Last Admin: 01/23/18 11:43 Dose: Not Given Simethicone (Mylicon Chew Tab) 80 mg PO QID [facility] Last Admin: 01/23/18 11:43 Dose: Not Given Vitamin B Complex/Vit C/Folic Acid (Nephro-Carlos) 1 tab PO DAILY [facility] Last Admin: 01/23/18 11:43 Dose: Not Given Results - Vital Signs Recent Vital Signs: Last Vital Signs Temp 98.6 F 01/23/18 04:00 Pulse 73 01/23/18 07:46 Resp 12 01/23/18 07:46 BP 101/45 L 01/23/18 07:46 Pulse Ox 99 01/23/18 07:50 - Labs Result Diagrams: 01/23/18 13:29 01/23/18 13:29 Labs: Laboratory Results - last 24 hr 06/27/18 06/27/18 06/27/18 12:51 15:50 16:34 WBC RBC Hgb Hct MCV MCH MCHC RDW Plt Count MPV Neut % (Auto) Lymph % (Auto) Chaves % (Auto) Eos % (Auto) Baso % (Auto) Neut # (Auto) Lymph # (Auto) Chaves # (Auto) Eos # (Auto) Baso # (Auto) Neutrophils % (Manual) Band Neutrophils % Lymphocytes % (Manual) Monocytes % (Manual) Myelocytes % Toxic Granulation Platelet Estimate Hypochromasia (manual) Anisocytosis (manual) Target Cells Puncture Site Dcath pCO2 49 H pO2 37 L* HCO3 29.6 H ABG pH 7.43 ABG Total CO2 34.0 H ABG O2 Saturation 80.9 L ABG Base Excess 6.9 H Sedrick Test Na ABG Potassium 3.1 L A-a O2 Difference 130.0 Respiratory Index 3.5 Sodium 140.0 Chloride 105.0 Glucose 174 H Lactate 0.6 L Liter Flow 3.0 FiO2 32.0 Crit Value Called To Dr gordon Crit Value Called By [facility] Crit Value Read Back Y Blood Gas Notified Time 1600 Potassium Carbon Dioxide Anion Gap BUN Creatinine Est GFR ( Amer) Est GFR (Non-Af Amer) POC Glucose (mg/dL) 172 H Random Glucose Lactic Acid Calcium Phosphorus Magnesium Total Bilirubin AST ALT Alkaline Phosphatase Troponin I Total Protein Albumin Globulin Albumin/Globulin Ratio Arterial Blood Potassium 3.1 L Random Vancomycin Blood Type B POSITIVE Antibody Screen Negative 01/22/18 01/23/18 01/23/18 23:26 06:18 06:19 WBC 13.3 H RBC 3.63 L Hgb 10.5 L D Hct 32.5 L MCV 89.6 D MCH 29.0 MCHC 32.4 L RDW 20.9 H Plt Count 330 MPV 7.8 Neut % (Auto) 87.7 H Lymph % (Auto) 5.1 L Chaves % (Auto) 6.3 Eos % (Auto) 0.3 Baso % (Auto) 0.6 Neut # (Auto) 11.7 H Lymph # (Auto) 0.7 L Chaves # (Auto) 0.8 Eos # (Auto) 0.0 Baso # (Auto) 0.1 Neutrophils % (Manual) 71 Band Neutrophils % 17 H* Lymphocytes % (Manual) 4 L Monocytes % (Manual) 7 Myelocytes % 1 H Toxic Granulation Present Platelet Estimate Normal Hypochromasia (manual) Anisocytosis (manual) Moderate Target Cells Puncture Site pCO2 pO2 HCO3 ABG pH ABG Total CO2 ABG O2 Saturation ABG Base Excess Sedrick Test ABG Potassium A-a O2 Difference Respiratory Index Sodium Chloride Glucose Lactate Liter Flow FiO2 Crit Value Called To Crit Value Called By Crit Value Read Back Blood Gas Notified Time Potassium Carbon Dioxide Anion Gap BUN Creatinine Est GFR ( Amer) Est GFR (Non-Af Amer) POC Glucose (mg/dL) 213 H Random Glucose Lactic Acid Calcium Phosphorus Magnesium Total Bilirubin AST ALT Alkaline Phosphatase Troponin I Total Protein Albumin Globulin Albumin/Globulin Ratio Arterial Blood Potassium Random Vancomycin 22.0 Blood Type Antibody Screen 01/23/18 01/23/18 01/23/18 06:19 06:51 11:54 WBC RBC Hgb Hct MCV MCH MCHC RDW Plt Count MPV Neut % (Auto) Lymph % (Auto) Chaves % (Auto) Eos % (Auto) Baso % (Auto) Neut # (Auto) Lymph # (Auto) Chaves # (Auto) Eos # (Auto) Baso # (Auto) Neutrophils % (Manual) Band Neutrophils % Lymphocytes % (Manual) Monocytes % (Manual) Myelocytes % Toxic Granulation Platelet Estimate Hypochromasia (manual) Anisocytosis (manual) Target Cells Puncture Site pCO2 pO2 HCO3 ABG pH ABG Total CO2 ABG O2 Saturation ABG Base Excess Sedrick Test ABG Potassium A-a O2 Difference Respiratory Index Sodium 138 Chloride 98 Glucose Lactate Liter Flow FiO2 Crit Value Called To Crit Value Called By Crit Value Read Back Blood Gas Notified Time Potassium 3.6 Carbon Dioxide 30 Anion Gap 15 BUN 42 H Creatinine 4.8 H Est GFR ( Amer) 11 Est GFR (Non-Af Amer) 9 POC Glucose (mg/dL) 221 H 267 H Random Glucose 208 H Lactic Acid Calcium 10.8 H Phosphorus 3.0 Magnesium 2.5 H Total Bilirubin 0.8 AST 29 ALT 19 Alkaline Phosphatase 123 Troponin I Total Protein 7.3 Albumin 3.0 L Globulin 4.4 H Albumin/Globulin Ratio 0.7 L Arterial Blood Potassium Random Vancomycin Blood Type Antibody Screen 01/23/18 01/23/18 01/23/18 13:29 13:29 13:29 WBC 14.8 H RBC 3.42 L Hgb 10.0 L Hct 30.2 L MCV 88.3 MCH 29.1 MCHC 33.0 RDW 18.9 H Plt Count 327 MPV 8.0 Neut % (Auto) 86.7 H Lymph % (Auto) 6.4 L Chaves % (Auto) 6.4 Eos % (Auto) 0.2 Baso % (Auto) 0.3 Neut # (Auto) 12.9 H Lymph # (Auto) 1.0 Chaves # (Auto) 0.9 H Eos # (Auto) 0.0 Baso # (Auto) 0.0 Neutrophils % (Manual) 60 Band Neutrophils % 24 H* Lymphocytes % (Manual) 10 L Monocytes % (Manual) 4 Myelocytes % 2 H Toxic Granulation Platelet Estimate Normal Hypochromasia (manual) Slight Anisocytosis (manual) Moderate Target Cells Slight Puncture Site pCO2 pO2 HCO3 ABG pH ABG Total CO2 ABG O2 Saturation ABG Base Excess Sedrick Test ABG Potassium A-a O2 Difference Respiratory Index Sodium 132 Chloride 98 Glucose Lactate Liter Flow FiO2 Crit Value Called To Crit Value Called By Crit Value Read Back Blood Gas Notified Time Potassium 3.5 L Carbon Dioxide 24 Anion Gap 13 BUN 40 H Creatinine 4.3 H Est GFR ( Amer) 13 Est GFR (Non-Af Amer) 11 POC Glucose (mg/dL) Random Glucose 391 H Lactic Acid 1.3 Calcium 9.2 Phosphorus 3.4 Magnesium 2.1 Total Bilirubin 0.7 AST 32 ALT 14 Alkaline Phosphatase 89 Troponin I 0.0600 Total Protein 5.6 L Albumin 2.3 L D Globulin 3.3 Albumin/Globulin Ratio 0.7 L Arterial Blood Potassium Random Vancomycin Blood Type Antibody Screen
--- NOTE | 2018-01-23 20:12 | CP.PCM.PN ---
Subjective - Date & Time of Evaluation Date of Evaluation: 01/23/18 Time of Evaluation: 19:45 - Subjective Subjective: Hospitalist Covering for Dr. Janneth Bonilla Patient was seen and examined at 7:45 PM ICU Bed #3 58 year old female with an extensive medical history (please assessment and plans below) was admitted for treatment for necrotic Left AKA surgical site. She underwent further amputation of the site 01/23/18. She is awake but not responsive to questioning of ROS or to following commands Physical Exam - Additional Findings Additional findings: - Constitutional Appears: Toxic, Older Than Stated Age, Chronically Ill - Head Exam Head Exam: ATRAUMATIC - Eye Exam Eye Exam: absent: PERRL (left eye white, glaucoma, blind in left eye) - ENT Exam ENT Exam: Mucous membranes are dry - Neck Exam Neck exam: Positive for: Full Rom. Negative for: Lymphadenopathy - Respiratory Exam Respiratory Exam: Clear to Auscultation Bilateral, Decreased Breath Sounds. absent: Rales, Rhonchi, Wheezes -shallow respirations and exam is limited by lack of patient participation - Cardiovascular Exam Cardiovascular Exam: Tachycardic, +S1, +S2; absent: murmurs, palpitations - GI/Abdominal Exam GI & Abdominal Exam: Decreased Bowel Sounds, Soft. absent: Tenderness - Extremities Exam Extremities exam: -Right BKA, well healed scar, no ulcers noted; -Left AKA with clean dry dressings - Back Exam Back exam: NORMAL INSPECTION. absent: CVA tenderness (L), CVA tenderness (R) - Neurological Exam Neurological exam: lethargic - Skin Skin Exam: Warm, dry; Right chest permacath Assessment & Plan - Assessment and Plan (Free Text) Assessment: Sepsis likely 2/2 Surgical Site Infection of L AKA Hx of R BKA S/P Left AKA (on 01/01/18) and further amputation on 01/23/18 * Vascular surgery consulted- Dr. Sinclair * ID consulted- Dr. Villegas. * Cardiac clearance-> Dr. Collins consulted * prior Lexiscan 12/31/17: no stress induced ischemia; EF 45-55%. * Left Leg Wound culture 01/22/18 shows Gram Negative Rods: F/U Sensitivities * F/U blood culture * R/U urine culture * F/U Vanco trough on 01/29/18 before HD * Vanco 1gm IV MWF * Merapenem 500 mg IV Q8H * L Femur XR 01/22: Status post [id number] amputation, well-circumscribed round osteolytic area in the distal femur proximal to the amputation is nonspecific, the differential considerations include Addi's abscess, benign and malignant neoplasm. MRI of the femur without and with intravenous contrast would be helpful for further characterization. see full report * MRI with and w/o contrast to be arranged by Nephrology once pt more stable Hypotension * BP 98/48 on admission, did not respond to 500cc fluid bolus * Currently on Norepinephrin Drip * CXR 01/22: no active pulm dz, see full report. Anemia * Hgb 6.4 on admission and currently 05/27.2 * F/U stool occult blood * Recieved 2 units 01/22/18 and 01/23/18 Hx of Systolic CHF (HFrEF) * Heart failure with reduced EF * Echo (12/05/17): EF 30-35% * Cardiology consulted- Dr. Collins * Lexiscan 12/31/17: no stress induced ischemia; EF 45-55%. * Continue to monitor. * Hold Imdur 60mg PO qd * Hold Metroprolol 25mg PO BID End stage renal disease on dialysis * ESRD on HD: MWF schedule * Nephrology consulted- Dr. Dominguez * Continue nephrovite and Renvela HTN (hypertension)--> currently hypotensive * Hold Imdur 60mg PO qd * Hold Metroprolol 25mg PO BID * Continue to monitor Diabetes * A1c (11/29/17): 5.8 * Accuchecks * ISS (will hold home diabetic medications) Q6H * Hypoglycemic protocol HIV (human immunodeficiency virus infection) * Continue home medication: Truvada 1tab PO daily, Issentriss 400mg PO BID * CD4 count (12/05/17): 143 * Viral load (12/05/17): not detected * ID consulted, Dr. Villegas. Hx HLD * Lipid panel from 11/29/17: TG 116 Chol 131 LDL 49 HDL 29 Hx Constipation * Colace 100mg PO BID * Dulcolax 10mg MT PRN * Simethicone Hx Anxiety * HOLD Xanax 0.25mg PO PRN Hx Thrombocytopenia * Pt developed thrombocytopenia on prior adimssion 12/30-01/06/18. * Hold chemical anticoagulation in light of this history and current need for PRBC transfusions * Monitor Prophylactic measure * DVT: Hold chemical anticoagulation * Full Code * Protonix 40mg IVP 1x/day * Dilaudid 0.5 mg IV Q4H PRN Severe Pain * Tylenol 650 mg PO Q6H PRN Fever * Patient's son Dilip Zhong is unofficial health proxy. His phone number to contact [phone] Mickey Arias D.O. Objective - Vital Signs/Intake and Output Vital Signs (last 24 hours): Temp Pulse Resp BP Pulse Ox 99.2 F 107 H 26 H 107/47 L 100 01/23/18 16:23 01/23/18 20:09 01/23/18 18:26 01/23/18 20:09 01/23/18 18:26 Intake and Output: 01/23/18 01/24/18 18:59 06:59 Intake Total 1517.4 254 Output Total 0 Balance 1517.4 254 - Medications Medications: Current Medications Acetaminophen (Tylenol 325mg Tab) 650 mg PO Q6 PRN PRN Reason: Fever >100.4 F Acetaminophen (Tylenol 325mg Tab) 650 mg PO Q6 PRN PRN Reason: Pain, Mild (1-3) Bisacodyl (Dulcolax) 10 mg [place] ONCE PRN PRN Reason: Constipation Dextrose (Dextrose 50% Inj) 0 ml IV STAT PRN; Protocol PRN Reason: Hypoglycemia Protocol Dextrose (Glutose 15) 0 gm PO ONCE PRN; Protocol PRN Reason: Hypoglycemia Protocol Docusate Sodium (Colace) 100 mg PO BID [facility] Last Admin: 01/23/18 18:40 Dose: Not Given Emtricitabine/Tenofovir (Truvada 200 Mg-300 Mg) 1 tab PO Q48H KATARINA PRN Reason: Protocol Last Admin: 01/22/18 14:30 Dose: Not Given Epoetin Alonso (Procrit) 10,000 unit IV MWF [facility] Glucagon (Glucagen Diagnostic Kit) 0 mg IM STAT PRN; Protocol PRN Reason: Hypoglycemia Protocol Hydromorphone HCl (Dilaudid) 0.5 mg IVP Q4H PRN PRN Reason: Pain, moderate (4-7) Vancomycin/Sodium Chloride (Vancomycin 1 Gm/Ns 200 Ml) 1 gm in 200 mls @ 133 mls/hr IVPB MWF [facility]INA PRN Reason: Protocol Stop: 01/29/18 09:01 Dextrose (Dextrose 5% In Water 1000 Ml) 1,000 mls @ 0 mls/hr IV .Q0M PRN; Protocol; Per Protocol PRN Reason: Hypoglycemia Protocol Norepinephrine Bitartrate 4 mg (/ Dextrose) 254 mls @ 15.24 mls/hr IV .[id number] PRN; Protocol; 4 MCG/MIN PRN Reason: TITRATE PER MD ORDER Last Admin: 01/23/18 20:09 Dose: 12 mcg/min, 45.72 mls/hr Meropenem 500 mg/ Sodium (Chloride) 100 mls @ 100 mls/hr IVPB Q12 KATARINA PRN Reason: Protocol Last Admin: 01/23/18 09:26 Dose: 100 mls Insulin Human Regular (Novolin R) 0 unit SC Q6 KATARINA PRN Reason: Protocol Last Admin: 01/23/18 18:53 Dose: 4 u Pantoprazole Sodium (Protonix Inj) 40 mg IVP DAILY [facility] Last Admin: 01/23/18 11:43 Dose: Not Given Sevelamer Carbonate (Renvela) 800 mg PO TID [facility] Last Admin: 01/23/18 18:40 Dose: Not Given Simethicone (Mylicon Chew Tab) 80 mg PO QID [facility] Last Admin: 01/23/18 18:40 Dose: Not Given Vitamin B Complex/Vit C/Folic Acid (Nephro-Carlos) 1 tab PO DAILY [facility] Last Admin: 01/23/18 11:43 Dose: Not Given - Labs Labs: 01/23/18 13:29 01/23/18 13:29 PT 11.1 SECONDS (9.7-12.2) 01/22/18 12:20 INR 1.0 01/22/18 12:20 APTT 27 SECONDS (21-34) 01/22/18 12:20
--- NOTE | 2018-01-23 22:04 | OP ---
PROCEDURE DATE: 01/23/2018 PREOPERATIVE DIAGNOSIS: Infected stump. POSTOPERATIVE DIAGNOSIS: Infected stump. PROCEDURE CARRIED OUT: Revision of left above-knee amputation with high-thigh amputation. SURGEON: Aden Sinclair Jr., MD TRAVELING FREIGHT AGENT: Dr. Griffin. ANESTHESIOLOGIST: Ms. Lugo. INDICATIONS: The patient is a middle-aged woman with renal insufficiency, HIV, end-stage renal disease, bilateral amputations, dialysis access failure, presents with a non-healed stump with extensive infection. OPERATIVE FINDINGS: A very high thigh amputation was carried out. DESCRIPTION OF PROCEDURE: The patient was given general anesthesia and intravenous antibiotics previously administered. The area that was necrotic was more above this and an inch higher to this, the skin was divided. The bone was divided at much higher level . Cultures were taken as there was some pus. The wound was then approximated, and skin clips and nylon sutures applied. Blood loss during the procedure was 400 mL. Operation carried out was revision of left above-knee amputation with high-thigh amputation. One unit of packed cells was transfused. Aden Sinclair Jr., MD
--- NOTE | 2018-01-23 23:58 | CP.PCM.PN ---
Subjective - Date & Time of Evaluation Date of Evaluation: 01/23/18 Time of Evaluation: 15:10 - Subjective Subjective: Patient seen and evaluated s/p surgery No cardiac events noted will continue to monitor Objective - Vital Signs/Intake and Output Vital Signs (last 24 hours): Temp Pulse Resp BP Pulse Ox 99.2 F 106 H 27 H 111/42 L 100 01/23/18 20:00 01/23/18 20:11 01/23/18 20:11 01/23/18 20:11 01/23/18 20:11 Intake and Output: 01/23/18 01/24/18 18:59 06:59 Intake Total 1517.4 337.4 Output Total 0 0 Balance 1517.4 337.4 - Medications Medications: Current Medications Acetaminophen (Tylenol 325mg Tab) 650 mg PO Q6 PRN PRN Reason: Fever >100.4 F Acetaminophen (Tylenol 325mg Tab) 650 mg PO Q6 PRN PRN Reason: Pain, Mild (1-3) Bisacodyl (Dulcolax) 10 mg [place] ONCE PRN PRN Reason: Constipation Dextrose (Dextrose 50% Inj) 0 ml IV STAT PRN; Protocol PRN Reason: Hypoglycemia Protocol Dextrose (Glutose 15) 0 gm PO ONCE PRN; Protocol PRN Reason: Hypoglycemia Protocol Docusate Sodium (Colace) 100 mg PO BID [facility] Last Admin: 01/23/18 18:40 Dose: Not Given Emtricitabine/Tenofovir (Truvada 200 Mg-300 Mg) 1 tab PO Q48H KATARINA PRN Reason: Protocol Last Admin: 01/22/18 14:30 Dose: Not Given Epoetin Alonso (Procrit) 10,000 unit IV [facility] Glucagon (Glucagen Diagnostic Kit) 0 mg IM STAT PRN; Protocol PRN Reason: Hypoglycemia Protocol Hydromorphone HCl (Dilaudid) 0.5 mg IVP Q4H PRN PRN Reason: Pain, moderate (4-7) Last Admin: 01/23/18 22:07 Dose: 0.5 mg Vancomycin/Sodium Chloride (Vancomycin 1 Gm/Ns 200 Ml) 1 gm in 200 mls @ 133 mls/hr IVPB [facility] PRN Reason: Protocol Stop: 01/29/18 09:01 Dextrose (Dextrose 5% In Water 1000 Ml) 1,000 mls @ 0 mls/hr IV .Q0M PRN; Protocol; Per Protocol PRN Reason: Hypoglycemia Protocol Norepinephrine Bitartrate 4 mg (/ Dextrose) 254 mls @ 15.24 mls/hr IV .[id number] PRN; Protocol; 4 MCG/MIN PRN Reason: TITRATE PER MD ORDER Last Admin: 01/23/18 20:09 Dose: 12 mcg/min, 45.72 mls/hr Meropenem 500 mg/ Sodium (Chloride) 100 mls @ 100 mls/hr IVPB Q12 KATARINA PRN Reason: Protocol Last Admin: 01/23/18 22:04 Dose: 100 mls/hr Insulin Human Regular (Novolin R) 0 unit SC Q6 KATARINA PRN Reason: Protocol Last Admin: 01/23/18 18:53 Dose: 4 u Pantoprazole Sodium (Protonix Inj) 40 mg IVP DAILY [facility] Last Admin: 01/23/18 11:43 Dose: Not Given Sevelamer Carbonate (Renvela) 800 mg PO TID [facility] Last Admin: 01/23/18 18:40 Dose: Not Given Simethicone (Mylicon Chew Tab) 80 mg PO QID [facility] Last Admin: 01/23/18 22:04 Dose: Not Given Vitamin B Complex/Vit C/Folic Acid (Nephro-Carlos) 1 tab PO DAILY [facility] Last Admin: 01/23/18 11:43 Dose: Not Given - Labs Labs: 01/23/18 13:29 01/23/18 13:29 PT 11.1 SECONDS (9.7-12.2) 01/22/18 12:20 INR 1.0 01/22/18 12:20 APTT 27 SECONDS (21-34) 01/22/18 12:20
[2018-01-24] MEDS: (Novolin R) Insulin Human Regular 100 units/ml vial SC SCH ×4 (00:13→17:35)
--- NOTE | 2018-01-24 02:29 | CON ---
DATE: 01/23/2018 HISTORY OF PRESENT ILLNESS: The patient is a 58-year-old female who has had left AKA secondary to gangrene. She has had multiple admissions here. She has end-stage renal disease. Her dialysis sites are also running out. She has had catheter sepsis before, hyperlipidemia, hypertension. She has HIV disease, on medications. She has peripheral artery disease. She has amputee of the right as well as left AKA which was done recently, now comes in with hypotension and left foot necrosis. She underwent another revision of left AKA, revised again because of necrosis, and she is still sedated. I was asked to evaluate her, and we gave her vancomycin yesterday, and she will be getting, and the son is at the bedside, and she is opening her eyes poorly at this time, and remains hypotensive, on norepinephrine. CAT scan also was done, and the patient was the patient came in with hypotension at this time, unresponsive, and volume overload and she may be septic probably from the left stump necrosis, and in the ER, her hemoglobin was 6.4, and she was given vancomycin and cefepime, and SHE HAS NO ALLERGIES. Surgeries, right BKA, multiple placements of vascular access for dialysis. MEDICATIONS: She has been on Isentress, Starlix, metoprolol, Procrit, isosorbide, Kaletra, Toprol XL, iron, vitamin B, and folic acid. SOCIAL HISTORY: She lives with her son, does not ambulate, but at this time, she is coming from the rehab we are told, and she is a former smoker. PAST MEDICAL HISTORY: As above. She came in with altered mental status, hypotensive. She does have history of HIV disease, and she has history of smoking. She has CHF, hypertension. Respiratory: No issues, but she has mostly been on oxygen before. Has dementia, glaucoma, kidney problem issues are present as she has end-stage renal disease, has had multiple dialysis catheters and access problems. She also has hypothyroidism, HIV disease. No skin problems. History of falls are present, and she has disorders that she does not make much urine and is on good dialysis, history of anxiety and mood swings and depression. Surgical history of right BKA before and left BKA recently and she has had vascular surgeries on her legs before. She is not allergic to any medicine. Her medications we are giving her is, she is on Tylenol, Dulcolax, Dextrose. She is on Colace. Colace was not given we are going to start tomorrow as she is n.p.o. at this time. She is on meropenem 500 every 12 hours, norepinephrine, and she is on vancomycin Saturday, Saturday and Saturday. Today, her random level was high. She also received amikacin yesterday. PHYSICAL EXAMINATION: VITAL SIGNS: On examination now, I find her temperature is 98.6; her blood pressure was 95/42, is in 90s; respirations, heart rate is 98, respiratory rate 39. HEENT: Head is atraumatic, normocephalic. Face appears puffy as she is missing her glasses. Tongue is dry. NECK: Supple. JVP is flat. LUNGS: Decreased breath sounds bilaterally. HEART: S1, S2 is tachycardic. She has a dialysis catheter on the right side. She also received blood 2 units today. ABDOMEN: Soft, nontender. No guarding, no rigidity present. EXTREMITIES: Left leg has a stump and the right leg stump is unremarkable at this time. Labs are noted. Labs show white count is 14.8, hemoglobin 10, hematocrit 30.2, platelet count is 327, bands are 24. Sodium is 132, potassium 3.5, chlorides are 98, CO2 is 21, glucose is 391 right now but she is n.p.o. Blood culture, wound culture shows gram-negative rods and her chest x-ray was done. Chest x-ray, no active disease. So my impression is that she became probably hypotensive with altered mental status, most likely due to sepsis from the left stump infection, she is on vasopressors at this time. Remains acutely ill with end-stage renal disease, human immunodeficiency virus disease. We will start her medications tomorrow, and at this time, we will continue with the Merrem as well as vancomycin, and we will follow. Tammy Villegas MD
[2018-01-24 06:21] LABS: HEMOGLOBIN 10.1 g/dL (11.0-16.0); MEAN CELL VOLUME 89.1 fL (81.0-99.0); MEAN CORPUSCULAR HEMOGLOBIN 29.7 pg (27.0-31.0); MEAN CORPUSCULAR HGB CONC 33.3 g/dL (33.0-37.0); PLATELET COUNT 306 K/uL (130-400); RBC 3.42 Mil/uL (3.80-5.20); RED CELL DISTRIBUTION WIDTH 17.9 % (11.5-14.5)
[2018-01-24 06:39] LABS: ALB/GLOB RATIO 0.6 (1.0-2.1); ALBUMIN 1.7 g/dL (3.5-5.0)
--- NOTE | 2018-01-24 08:31 | CP.CCUPN ---
<Virginia Myers - Last Filed: 01/24/18 09:27> CCU Subjective - Physician Review Subjective (Free Text): Patient was seen and examined at bedside. Patient is still lethargic, responds to painful stimuli, still nonverbal. CCU Objective - Vital Signs / Intake & Output Vital Signs (Last 4 hours): Vital Signs Temp Pulse Resp BP Pulse Ox 01/24/18 07:52 99.5 F 95 H 20 114/39 L 100 01/24/18 07:00 91 H 33 H 100 01/24/18 06:56 90 34 H 92/45 L 100 01/24/18 06:41 91 H 33 H 90/40 L 100 01/24/18 06:26 90 32 H 97/38 L 100 01/24/18 06:11 90 30 H 83/50 L 100 01/24/18 06:00 90 34 H 100 01/24/18 05:57 90 34 H 82/44 L 100 01/24/18 05:56 90 34 H 100 01/24/18 05:41 94 H 36 H 86/35 L 100 01/24/18 05:26 93 H 37 H 96/47 L 100 01/24/18 05:11 106 H 40 H 95/39 L 97 01/24/18 05:00 93 H 23 97 01/24/18 04:56 93 H 32 H 101/36 L 100 01/24/18 04:41 96 H 31 H 101/34 L 100 Intake and Output (Last 8hrs): Intake & Output 01/23/18 01/24/18 01/24/18 22:59 06:59 14:59 Intake Total 1024.2 558.2 37.5 Output Total 0 0 0 Balance 1024.2 558.2 37.5 Weight 170 lb 4.8 oz Intake: IV 254 254 Intake, IV Amount 440.2 304.2 37.5 Right Shoulder 100 Right Subclavian 166.8 304.2 37.5 medial port rt.[id number] 173.4 Oral 5 Blood Product 325 Red Blood Cells Cpd As1 325 Lr Unit [id number] Output: Urine 0 0 0 Urine, Voided 0 0 0 Stool 0 0 0 - Physical Exam Head: Positive for: Atraumatic, Normocephalic Pupils: Positive for: PERRL Extroacular Muscles: Positive for: EOMI Conjunctiva: Positive for: Normal Mouth: Positive for: Dry Respiratory/Chest: Positive for: Clear to Auscultation Cardiovascular: Positive for: Regular Rate and Rhythm Abdomen: Positive for: Normal Bowel Sounds. Negative for: Tenderness, Distention Upper Extremity: Positive for: Other (left AVF - no thrill noted ) Lower Extremity: Positive for: Other Neurological: Positive for: GCS=15, CN II-XII Intact Skin: Positive for: Warm, Dry Psychiatric: Positive for: Alert, Lethargic Other physical findings (Free Text): -Right BKA, well healed scar, no ulcers noted; -Left AKA- wrapped. Dressing C/D/I - Medications Active Medications: Active Medications Generic Name Dose Route Start Last Admin Trade Name Freq PRN Reason Stop Dose Admin Acetaminophen 650 mg 01/22/18 14:22 Tylenol 325mg Tab PO Q6 PRN Fever >100.4 F Acetaminophen 650 mg 01/22/18 14:38 Tylenol 325mg Tab PO Q6 PRN Pain, Mild (1-3) Bisacodyl 10 mg 01/22/18 14:31 Dulcolax [place] ONCE PRN Constipation Dextrose 0 ml 01/22/18 16:27 Dextrose 50% Inj IV STAT PRN Hypoglycemia Protocol Protocol Dextrose 0 gm 01/22/18 16:27 Glutose 15 PO ONCE PRN Hypoglycemia Protocol Protocol Docusate Sodium 100 mg 01/22/18 18:00 01/23/18 18:40 Colace PO Not Given BID [facility] Emtricitabine/Tenofovir 1 tab 01/22/18 14:30 01/22/18 14:30 Truvada 200 Mg-300 Mg PO Not Given Q48H [facility] Protocol Epoetin Alonso 10,000 unit 01/24/18 09:00 Procrit IV [facility] Glucagon 0 mg 01/22/18 16:27 Glucagen Diagnostic Kit IM STAT PRN Hypoglycemia Protocol Protocol Hydromorphone HCl 0.5 mg 01/22/18 15:35 01/23/18 22:07 Dilaudid IVP 0.5 mg Q4H PRN Administration Pain, moderate (4-7) Vancomycin/Sodium Chloride 1 gm in 200 mls @ 133 mls/hr 01/24/18 09:00 Vancomycin 1 Gm/Ns 200 Ml IVPB 01/29/18 09:01 [facility] Protocol Dextrose 1,000 mls @ 0 mls/hr 01/22/18 16:27 Dextrose 5% In Water 1000 Ml IV .Q0M PRN Hypoglycemia Protocol Protocol Per Protocol Norepinephrine Bitartrate 4 mg 254 mls @ 15.24 mls/hr 01/22/18 18:18 02:53 / Dextrose IV 10 mcg/min .[id number] PRN 38.1 mls/hr TITRATE PER MD ORDER Administration Protocol 4 MCG/MIN Meropenem 500 mg/ Sodium 100 mls @ 100 mls/hr 01/23/18 10:00 01/23/18 22:04 Chloride IVPB 100 mls/hr Q12 KATARINA Administration Protocol Potassium Chloride 20 meq in 100 mls @ 50 mls/hr 01/24/18 07:08 01/24/18 07: 45 Potassium Chloride 20 Meq/100 Ml IVPB 01/24/18 09:07 50 mls/hr ONCE ONE Administration Insulin Human Regular 0 unit 01/23/18 00:00 01/24/18 06:01 Novolin R SC 4 u Q6 KATARINA Administration Protocol Pantoprazole Sodium 40 mg 01/23/18 10:00 01/23/18 11:43 Protonix Inj IVP Not Given DAILY KATARINA Sevelamer Carbonate 800 mg 01/22/18 18:00 01/23/18 18:40 Renvela PO Not Given TID KATARINA Simethicone 80 mg 01/22/18 18:00 01/23/18 22:04 Mylicon Chew Tab PO Not Given QID KATARINA Vitamin B Complex/Vit C/Folic Acid 1 tab 01/23/18 10:00 01/23/18 11:43 Nephro-Carlos PO Not Given DAILY KATARINA - Patient Studies Lab Studies: Microbiology Studies 01/22/18 11:45 S.aureus & Coag-Neg Staph PNA FISH - Final Blood-Venous Blood Culture - Preliminary Gram Positive Cocci Gram Stain - Final 01/22/18 12:15 Blood Culture - Preliminary Blood-Venous NO GROWTH AFTER 24 HOURS 01/22/18 14:57 MRSA Culture (Admit) - Final Naris MRSA NOT DETECTED 01/23/18 11:00 Gram Stain - Final Thigh - Left 01/22/18 Unknown Gram Stain - Final Leg - Left Wound Culture - Preliminary Gram Negative Jose Alfredo Lab Studies 01/24/18 01/24/18 01/24/18 Range/Units 06:14 06:14 06:14 WBC 19.0 H (4.8-10.8) K/uL RBC 3.42 L (3.80-5.20) Mil/uL Hgb 10.1 L (11.0-16.0) g/dL Hct 30.4 L (34.0-47.0) % MCV 89.1 (81.0-99.0) fL MCH 29.7 (27.0-31.0) pg MCHC 33.3 (33.0-37.0) g/dL RDW 17.9 H (11.5-14.5) % Plt Count 306 (130-400) K/uL MPV 8.0 (7.2-11.7) fL Neut % (Auto) (50.0-75.0) % Lymph % (Auto) (20.0-40.0) % [place] % (Auto) (0.0-10.0) % Eos % (Auto) (0.0-4.0) % Baso % (Auto) (0.0-2.0) % Neut # (Auto) (1.8-7.0) K/uL Lymph # (Auto) (1.0-4.3) K/uL [place] # (Auto) (0.0-0.8) K/uL Eos # (Auto) (0.0-0.7) K/uL Baso # (Auto) (0.0-0.2) K/uL Neutrophils % (Manual) (50-75) % Band Neutrophils % (0-2) % Lymphocytes % (Manual) (20-40) % Monocytes % (Manual) (0-10) % Myelocytes % (0-0) % Platelet Estimate (NORMAL) Hypochromasia (manual) Anisocytosis (manual) Target Cells Sodium 139 (132-148) mmol/L Potassium 2.9 L (3.6-5.2) mmol/L Chloride 109 H (98-107) mmol/L Carbon Dioxide 21 L (22-30) mmol/L Anion Gap 11 (10-20) BUN 37 H (7-17) mg/dL Creatinine 3.8 H (0.7-1.2) mg/dL Est GFR ( Amer) 15 Est GFR (Non-Af Amer) 12 POC Glucose (mg/dL) (65-110) mg/dL Random Glucose 242 H (65-105) mg/dL Lactic Acid (0.7-2.1) mmol/L Calcium 7.0 L (8.6-10.4) mg/dl Phosphorus 2.6 (2.5-4.5) mg/dL Magnesium 1.6 (1.6-2.3) mg/dL Total Bilirubin 0.2 (0.2-1.3) mg/dL AST 18 (14-36) U/L ALT 21 (9-52) U/L Alkaline Phosphatase 66 (38-126) U/L Troponin I (0.00-0.120) ng/mL Total Protein 4.3 L (6.3-8.3) g/dL Albumin 1.7 L D (3.5-5.0) g/dL Globulin 2.7 (2.2-3.9) gm/dL Albumin/Globulin Ratio 0.6 L (1.0-2.1) Vancomycin Trough 16.3 H (5.0-10.0) ug/mL Blood Type Antibody Screen 01/24/18 01/23/18 01/23/18 Range/Units 05:42 23:44 16:06 WBC (4.8-10.8) K/uL RBC (3.80-5.20) Mil/uL Hgb (11.0-16.0) g/dL Hct (34.0-47.0) % MCV (81.0-99.0) fL MCH (27.0-31.0) pg MCHC (33.0-37.0) g/dL RDW (11.5-14.5) % Plt Count (130-400) K/uL MPV (7.2-11.7) fL Neut % (Auto) (50.0-75.0) % Lymph % (Auto) (20.0-40.0) % [place] % (Auto) (0.0-10.0) % Eos % (Auto) (0.0-4.0) % Baso % (Auto) (0.0-2.0) % Neut # (Auto) (1.8-7.0) K/uL Lymph # (Auto) (1.0-4.3) K/uL [place] # (Auto) (0.0-0.8) K/uL Eos # (Auto) (0.0-0.7) K/uL Baso # (Auto) (0.0-0.2) K/uL Neutrophils % (Manual) (50-75) % Band Neutrophils % (0-2) % Lymphocytes % (Manual) (20-40) % Monocytes % (Manual) (0-10) % Myelocytes % (0-0) % Platelet Estimate (NORMAL) Hypochromasia (manual) Anisocytosis (manual) Target Cells Sodium (132-148) mmol/L Potassium (3.6-5.2) mmol/L Chloride (98-107) mmol/L Carbon Dioxide (22-30) mmol/L Anion Gap (10-20) BUN (7-17) mg/dL Creatinine (0.7-1.2) mg/dL Est GFR ( Amer) Est GFR (Non-Af Amer) POC Glucose (mg/dL) 316 H 360 H 341 H (65-110) mg/dL Random Glucose (65-105) mg/dL Lactic Acid (0.7-2.1) mmol/L Calcium (8.6-10.4) mg/dl Phosphorus (2.5-4.5) mg/dL Magnesium (1.6-2.3) mg/dL Total Bilirubin (0.2-1.3) mg/dL AST (14-36) U/L ALT (9-52) U/L Alkaline Phosphatase (38-126) U/L Troponin I (0.00-0.120) ng/mL Total Protein (6.3-8.3) g/dL Albumin (3.5-5.0) g/dL Globulin (2.2-3.9) gm/dL Albumin/Globulin Ratio (1.0-2.1) Vancomycin Trough (5.0-10.0) ug/mL Blood Type Antibody Screen 01/23/18 01/23/18 01/23/18 Range/Units 13:29 13:29 13:29 WBC 14.8 H (4.8-10.8) K/uL RBC 3.42 L (3.80-5.20) Mil/uL Hgb 10.0 L (11.0-16.0) g/dL Hct 30.2 L (34.0-47.0) % MCV 88.3 (81.0-99.0) fL MCH 29.1 (27.0-31.0) pg MCHC 33.0 (33.0-37.0) g/dL RDW 18.9 H (11.5-14.5) % Plt Count 327 (130-400) K/uL MPV 8.0 (7.2-11.7) fL Neut % (Auto) 86.7 H (50.0-75.0) % Lymph % (Auto) 6.4 L (20.0-40.0) % [place] % (Auto) 6.4 (0.0-10.0) % Eos % (Auto) 0.2 (0.0-4.0) % Baso % (Auto) 0.3 (0.0-2.0) % Neut # (Auto) 12.9 H (1.8-7.0) K/uL Lymph # (Auto) 1.0 (1.0-4.3) K/uL [place] # (Auto) 0.9 H (0.0-0.8) K/uL Eos # (Auto) 0.0 (0.0-0.7) K/uL Baso # (Auto) 0.0 (0.0-0.2) K/uL Neutrophils % (Manual) 60 (50-75) % Band Neutrophils % 24 H* (0-2) % Lymphocytes % (Manual) 10 L (20-40) % Monocytes % (Manual) 4 (0-10) % Myelocytes % 2 H (0-0) % Platelet Estimate Normal (NORMAL) Hypochromasia (manual) Slight Anisocytosis (manual) Moderate Target Cells Slight Sodium 132 (132-148) mmol/L Potassium 3.5 L (3.6-5.2) mmol/L Chloride 98 (98-107) mmol/L Carbon Dioxide 24 (22-30) mmol/L Anion Gap 13 (10-20) BUN 40 H (7-17) mg/dL Creatinine 4.3 H (0.7-1.2) mg/dL Est GFR ( Amer) 13 Est GFR (Non-Af Amer) 11 POC Glucose (mg/dL) (65-110) mg/dL Random Glucose 391 H (65-105) mg/dL Lactic Acid 1.3 (0.7-2.1) mmol/L Calcium 9.2 (8.6-10.4) mg/dl Phosphorus 3.4 (2.5-4.5) mg/dL Magnesium 2.1 (1.6-2.3) mg/dL Total Bilirubin 0.7 (0.2-1.3) mg/dL AST 32 (14-36) U/L ALT 14 (9-52) U/L Alkaline Phosphatase 89 (38-126) U/L Troponin I 0.0600 (0.00-0.120) ng/mL Total Protein 5.6 L (6.3-8.3) g/dL Albumin 2.3 L D (3.5-5.0) g/dL Globulin 3.3 (2.2-3.9) gm/dL Albumin/Globulin Ratio 0.7 L (1.0-2.1) Vancomycin Trough (5.0-10.0) ug/mL Blood Type Antibody Screen 01/23/18 01/22/18 Range/Units 11:54 12:51 WBC (4.8-10.8) K/uL RBC (3.80-5.20) Mil/uL Hgb (11.0-16.0) g/dL Hct (34.0-47.0) % MCV (81.0-99.0) fL MCH (27.0-31.0) pg MCHC (33.0-37.0) g/dL RDW (11.5-14.5) % Plt Count (130-400) K/uL MPV (7.2-11.7) fL Neut % (Auto) (50.0-75.0) % Lymph % (Auto) (20.0-40.0) % [place] % (Auto) (0.0-10.0) % Eos % (Auto) (0.0-4.0) % Baso % (Auto) (0.0-2.0) % Neut # (Auto) (1.8-7.0) K/uL Lymph # (Auto) (1.0-4.3) K/uL [place] # (Auto) (0.0-0.8) K/uL Eos # (Auto) (0.0-0.7) K/uL Baso # (Auto) (0.0-0.2) K/uL Neutrophils % (Manual) (50-75) % Band Neutrophils % (0-2) % Lymphocytes % (Manual) (20-40) % Monocytes % (Manual) (0-10) % Myelocytes % (0-0) % Platelet Estimate (NORMAL) Hypochromasia (manual) Anisocytosis (manual) Target Cells Sodium (132-148) mmol/L Potassium (3.6-5.2) mmol/L Chloride (98-107) mmol/L Carbon Dioxide (22-30) mmol/L Anion Gap (10-20) BUN (7-17) mg/dL Creatinine (0.7-1.2) mg/dL Est GFR ( Amer) Est GFR (Non-Af Amer) POC Glucose (mg/dL) 267 H (65-110) mg/dL Random Glucose (65-105) mg/dL Lactic Acid (0.7-2.1) mmol/L Calcium (8.6-10.4) mg/dl Phosphorus (2.5-4.5) mg/dL Magnesium (1.6-2.3) mg/dL Total Bilirubin (0.2-1.3) mg/dL AST (14-36) U/L ALT (9-52) U/L Alkaline Phosphatase (38-126) U/L Troponin I (0.00-0.120) ng/mL Total Protein (6.3-8.3) g/dL Albumin (3.5-5.0) g/dL Globulin (2.2-3.9) gm/dL Albumin/Globulin Ratio (1.0-2.1) Vancomycin Trough (5.0-10.0) ug/mL Blood Type B POSITIVE Antibody Screen Negative Laboratory Results - last 24 hr 01/22/18 01/23/18 01/23/18 12:51 11:54 13:29 WBC RBC Hgb Hct MCV MCH MCHC RDW Plt Count MPV Neut % (Auto) Lymph % (Auto) [place] % (Auto) Eos % (Auto) Baso % (Auto) Neut # (Auto) Lymph # (Auto) [place] # (Auto) Eos # (Auto) Baso # (Auto) Neutrophils % (Manual) Band Neutrophils % Lymphocytes % (Manual) Monocytes % (Manual) Myelocytes % Platelet Estimate Hypochromasia (manual) Anisocytosis (manual) Target Cells Sodium Potassium Chloride Carbon Dioxide Anion Gap BUN Creatinine Est GFR ( Amer) Est GFR (Non-Af Amer) POC Glucose (mg/dL) 267 H Random Glucose Lactic Acid 1.3 Calcium Phosphorus Magnesium Total Bilirubin AST ALT Alkaline Phosphatase Troponin I Total Protein Albumin Globulin Albumin/Globulin Ratio Vancomycin Trough Blood Type B POSITIVE Antibody Screen Negative 01/23/18 01/23/18 01/23/18 13:29 13:29 16:06 WBC 14.8 H RBC 3.42 L Hgb 10.0 L Hct 30.2 L MCV 88.3 MCH 29.1 MCHC 33.0 RDW 18.9 H Plt Count 327 MPV 8.0 Neut % (Auto) 86.7 H Lymph % (Auto) 6.4 L [place] % (Auto) 6.4 Eos % (Auto) 0.2 Baso % (Auto) 0.3 Neut # (Auto) 12.9 H Lymph # (Auto) 1.0 [place] # (Auto) 0.9 H Eos # (Auto) 0.0 Baso # (Auto) 0.0 Neutrophils % (Manual) 60 Band Neutrophils % 24 H* Lymphocytes % (Manual) 10 L Monocytes % (Manual) 4 Myelocytes % 2 H Platelet Estimate Normal Hypochromasia (manual) Slight Anisocytosis (manual) Moderate Target Cells Slight Sodium 132 Potassium 3.5 L Chloride 98 Carbon Dioxide 24 Anion Gap 13 BUN 40 H Creatinine 4.3 H Est GFR ( Amer) 13 Est GFR (Non-Af Amer) 11 POC Glucose (mg/dL) 341 H Random Glucose 391 H Lactic Acid Calcium 9.2 Phosphorus 3.4 Magnesium 2.1 Total Bilirubin 0.7 AST 32 ALT 14 Alkaline Phosphatase 89 Troponin I 0.0600 Total Protein 5.6 L Albumin 2.3 L D Globulin 3.3 Albumin/Globulin Ratio 0.7 L Vancomycin Trough Blood Type Antibody Screen 01/23/18 01/24/18 01/24/18 23:44 05:42 06:14 WBC RBC Hgb Hct MCV MCH MCHC RDW Plt Count MPV Neut % (Auto) Lymph % (Auto) [place] % (Auto) Eos % (Auto) Baso % (Auto) Neut # (Auto) Lymph # (Auto) [place] # (Auto) Eos # (Auto) Baso # (Auto) Neutrophils % (Manual) Band Neutrophils % Lymphocytes % (Manual) Monocytes % (Manual) Myelocytes % Platelet Estimate Hypochromasia (manual) Anisocytosis (manual) Target Cells Sodium Potassium Chloride Carbon Dioxide Anion Gap BUN Creatinine Est GFR ( Amer) Est GFR (Non-Af Amer) POC Glucose (mg/dL) 360 H 316 H Random Glucose Lactic Acid Calcium Phosphorus Magnesium Total Bilirubin AST ALT Alkaline Phosphatase Troponin I Total Protein Albumin Globulin Albumin/Globulin Ratio Vancomycin Trough 16.3 H Blood Type Antibody Screen 01/24/18 01/24/18 06:14 06:14 WBC 19.0 H RBC 3.42 L Hgb 10.1 L Hct 30.4 L MCV 89.1 MCH 29.7 MCHC 33.3 RDW 17.9 H Plt Count 306 MPV 8.0 Neut % (Auto) Lymph % (Auto) [place] % (Auto) Eos % (Auto) Baso % (Auto) Neut # (Auto) Lymph # (Auto) [place] # (Auto) Eos # (Auto) Baso # (Auto) Neutrophils % (Manual) Band Neutrophils % Lymphocytes % (Manual) Monocytes % (Manual) Myelocytes % Platelet Estimate Hypochromasia (manual) Anisocytosis (manual) Target Cells Sodium 139 Potassium 2.9 L Chloride 109 H Carbon Dioxide 21 L Anion Gap 11 BUN 37 H Creatinine 3.8 H Est GFR ( Amer) 15 Est GFR (Non-Af Amer) 12 POC Glucose (mg/dL) Random Glucose 242 H Lactic Acid Calcium 7.0 L Phosphorus 2.6 Magnesium 1.6 Total Bilirubin 0.2 AST 18 ALT 21 Alkaline Phosphatase 66 Troponin I Total Protein 4.3 L Albumin 1.7 L D Globulin 2.7 Albumin/Globulin Ratio 0.6 L Vancomycin Trough Blood Type Antibody Screen Fingerstick Blood Sugar Results: 360 Critical Care Progress Note - Nutrition Nutrition: Nutrition Category Date Time Status NPO Diet [DIET] Diets 01/23/18 Breakfast Active Assessment/Plan - Assessment and Plan (Free Text) Assessment: This is a 58 year old female with PMHx of 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 S/P left AKA 01/22/18 Transfused total 4 units PRBCs on this admission. Currently titrating off Levo. Plan: Neuro: A: AMS - Likely 2/2 sepsis Cardio: A: Hypotension -resolving - s/p 500cc bolus - S/p 4 units of PRBCs 01/21,01/22 - Currently on Levo; titrating - Started Midodrine 5mg PO TID, Solu- cortef A: HF with rEF Systolic Dysfunction - Echo (12/05/17): EF 30-35% - Lexiscan scheduled for 12/31/17: no stress induced ischemia; EF 45-55% A: Hx Hypertension, HLD - Imdur 60mg PO daily and Metoprolol 25mg PO BID- HELD due to hypotension - Lipid panel from 11/29/17: TG 116 Chol 131 LDL 49 HDL 29 GI: A: Hx Constipation - Colace 100mg PO BID, Dulcolax PRN Endo: A: T2DM - Accuchecks - A1c (11/29/17): 5.8 - ISS - high - May need long acting; now that tube feeds will be started - Hypoglycemic Protocol Renal: A: ESRD on HD MWF with R permacath, failed L AVF??, oliguria -- Nephrology consulted Dr. Dominguez/ Pooja - Restarted Nephrovite and Renvela Heme/Onc: A: Anemia, anemia of chronic disease - Baseline hemoglobin 9-10s - 6.4 on admission - S/p 4 units of PRBCs 01/21,01/22 - Continue to monitor A: HIV -- Dr. Villegas Consulted - Restarted Truvada Q48H - CD4 count (12/05/17): 143 - Viral load (12/05/17): not detected ID: A: Sepsis -- Dr. Sinclair consulted -- Dr. 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 - Started Vanco 1 gram MWF, Zosyn Q6H (renally)- vanco random 22, Amikacin 2nd dose 01/24 - Lactate 1.1, follow up serial post op - Tylenol, dilaudid PRN for pain - Wound: Proteus - BC - gram + cocci x 2 Prophylaxis: - Protonix - SCDs, VTE c/i due to anemia - PT /OT - NPO for now 2/2 lethargy, AMS - will advance as tolerated - NGT - tube feedings _ FULL CODE - Case management referral for [facility] placement - Son Dilip Zhong is unofficial health proxy; his phone number to contact [phone] Virginia Patel DO, PGY-1 <Jayesh Beaver M - Last Filed: 01/24/18 19:01> CCU Objective - Vital Signs / Intake & Output Vital Signs (Last 4 hours): Vital Signs Temp Pulse Resp BP Pulse Ox 01/24/18 18:00 86 15 100 01/24/18 17:45 86 20 100 01/24/18 17:38 85 16 99/49 L 99 01/24/18 17:33 86 7 L 118/41 L 100 01/24/18 17:30 86 21 100 01/24/18 17:15 87 16 100 01/24/18 17:03 91 H 18 99/49 L 100 01/24/18 17:00 87 0 L 100 01/24/18 16:45 86 0 L 100 01/24/18 16:33 87 5 L 125/47 L 100 01/24/18 16:30 85 0 L 100 01/24/18 16:15 83 22 100 01/24/18 16:03 83 0 L 107/31 L 100 01/24/18 16:00 99.1 F 83 0 L 100 01/24/18 15:47 84 0 L 117/27 L 100 01/24/18 15:45 83 4 L 100 01/24/18 15:32 84 12 118/26 L 100 01/24/18 15:30 80 0 L 100 01/24/18 15:17 81 5 L 111/24 L 100 01/24/18 15:15 80 8 L 100 01/24/18 15:02 83 10 L 115/22 L 100 Intake and Output (Last 8hrs): Intake & Output 01/24/18 01/24/18 01/24/18 06:59 14:59 22:59 Intake Total 558.2 1059.0 620.0 Output Total 0 0 0 Balance 558.2 1059.0 620.0 Weight 170 lb 4.8 oz Intake: IV 254 14 250 Intake, IV Amount 304.2 800.0 150.0 Right Shoulder 300 Right Subclavian 304.2 500.0 150.0 Tube Feeding 45 120 Other 200 100 Output: Urine 0 0 0 Urine, Voided 0 0 0 Stool 0 0 0 - Medications Active Medications: Active Medications Generic Name Dose Route Start Last Admin Trade Name Freq PRN Reason Stop Dose Admin Acetaminophen 650 mg 01/22/18 14:22 Tylenol 325mg Tab PO Q6 PRN Fever >100.4 F Acetaminophen 650 mg 01/22/18 14:38 Tylenol 325mg Tab PO Q6 PRN Pain, Mild (1-3) Bisacodyl 10 mg 01/22/18 14:31 01/24/18 10:15 Dulcolax [place] 10 mg ONCE PRN Administration Constipation Dextrose 0 ml 01/22/18 16:27 Dextrose 50% Inj IV STAT PRN Hypoglycemia Protocol Protocol Dextrose 0 gm 01/22/18 16:27 Glutose 15 PO ONCE PRN Hypoglycemia Protocol Protocol Docusate Sodium 100 mg 01/22/18 18:00 01/24/18 17:33 Colace PO 100 mg BID KATARNIA Administration Emtricitabine/Tenofovir 1 tab 01/22/18 14:30 01/24/18 14:44 Truvada 200 Mg-300 Mg PO 1 tab Q48H KATARINA Administration Protocol Epoetin Alonso 10,000 unit 01/24/18 09:00 01/24/18 17:15 Procrit IV 10,000 unit MWF KATARINA Administration Glucagon 0 mg 01/22/18 16:27 Glucagen Diagnostic Kit IM STAT PRN Hypoglycemia Protocol Protocol Hydrocortisone Sodium Succinate 100 mg 01/24/18 09:00 01/24/18 17:32 Solu-Cortef IV 100 mg Q8H KATARINA Administration Hydromorphone HCl 0.5 mg 01/24/18 08:47 Dilaudid IVP Q6H PRN Pain, moderate (4-7) Vancomycin/Sodium Chloride 1 gm in 200 mls @ 133 mls/hr 01/24/18 09:00 10:23 Vancomycin 1 Gm/Ns 200 Ml IVPB 01/29/18 09:01 133 mls/hr MWF KATARINA Administration Protocol Dextrose 1,000 mls @ 0 mls/hr 01/22/18 16:27 Dextrose 5% In Water 1000 Ml IV .Q0M PRN Hypoglycemia Protocol Protocol Per Protocol Norepinephrine Bitartrate 4 mg 254 mls @ 15.24 mls/hr 01/22/18 18:18 17:38 / Dextrose IV 10 mcg/min .[id number] PRN 38.1 mls/hr TITRATE PER MD ORDER Administration Protocol 4 MCG/MIN Meropenem 500 mg/ Sodium 100 mls @ 100 mls/hr 01/23/18 10:00 01/24/18 09:49 Chloride IVPB 100 mls/hr Q12 KATARINA Administration Protocol Insulin Human Regular 0 unit 01/24/18 12:00 01/24/18 17:35 Novolin R SC 4 u Q6 KATARINA Administration Protocol Midodrine 5 mg 01/24/18 10:00 01/24/18 17:33 Proamatine PO 5 mg TID KATARINA Administration Pantoprazole Sodium 40 mg 01/23/18 10:00 01/24/18 10:07 Protonix Inj IVP 40 mg DAILY KATARINA Administration Sevelamer Carbonate 800 mg 01/22/18 18:00 01/24/18 17:33 Renvela PO 800 mg TID KATARINA Administration Simethicone 80 mg 01/22/18 18:00 01/24/18 17:33 Mylicon Chew Tab PO 80 mg QID KATARINA Administration Vitamin B Complex/Vit C/Folic Acid 1 tab 01/23/18 10:00 01/24/18 10:30 Nephro-Carlos PO 1 tab DAILY KATARINA Administration - Patient Studies Lab Studies: Microbiology Studies 01/23/18 11:00 Gram Stain - Final Thigh - Left Wound Culture - Preliminary Gram Negative Jose Alfredo 01/22/18 Unknown Gram Stain - Final Leg - Left Wound Culture - Final Pseudomonas Aeruginosa 01/22/18 12:15 Blood Culture - Preliminary Blood-Venous Gram Positive Cocci Gram Stain - Final 01/22/18 11:45 S.aureus & Coag-Neg Staph PNA FISH - Final Blood-Venous Blood Culture - Preliminary Gram Positive Cocci Gram Stain - Final 01/22/18 14:57 MRSA Culture (Admit) - Final Naris MRSA NOT DETECTED Lab Studies 0601/24/18 01/24/18 Range/Units 17:26 11:21 09:11 WBC (4.8-10.8) K/uL RBC (3.80-5.20) Mil/uL Hgb (11.0-16.0) g/dL Hct (34.0-47.0) % MCV (81.0-99.0) fL MCH (27.0-31.0) pg MCHC (33.0-37.0) g/dL RDW (11.5-14.5) % Plt Count (130-400) K/uL MPV (7.2-11.7) fL Neut % (Auto) (50.0-75.0) % Lymph % (Auto) (20.0-40.0) % [place] % (Auto) (0.0-10.0) % Eos % (Auto) (0.0-4.0) % Baso % (Auto) (0.0-2.0) % Neut # (Auto) (1.8-7.0) K/uL Lymph # (Auto) (1.0-4.3) K/uL [place] # (Auto) (0.0-0.8) K/uL Eos # (Auto) (0.0-0.7) K/uL Baso # (Auto) (0.0-0.2) K/uL Neutrophils % (Manual) (50-75) % Lymphocytes % (Manual) (20-40) % Monocytes % (Manual) (0-10) % Platelet Estimate (NORMAL) Polychromasia Hypochromasia (manual) Anisocytosis (manual) pO2 34 (30-55) mm/Hg VBG pH 7.38 (7.32-7.43) VBG pCO2 47 (40-60) mmHg VBG HCO3 25.6 mmol/L VBG Total CO2 29.2 H (22-28) mmol/L VBG O2 Sat (Calc) 70.9 H (40-65) % VBG Base Excess 2.0 (0.0-2.0) mmol/L VBG Potassium 4.1 (3.6-5.2) mmol/L Glucose 506 H* D (65-105) mg/dl Lactate 1.6 (0.7-2.1) mmol/L Liter Flow 4.0 Crit Value Called To Dr jayesh beaver Crit Value Called By Dorys schofield chinchilla farmer Crit Value Read Back Y Blood Gas Notified Time 915 Sodium 128.0 L (132-148) mmol/L Potassium (3.6-5.2) mmol/L Chloride 96.0 L (98-107) mmol/L Carbon Dioxide (22-30) mmol/L Anion Gap (10-20) BUN (7-17) mg/dL Creatinine (0.7-1.2) mg/dL Est GFR ( Amer) Est GFR (Non-Af Amer) POC Glucose (mg/dL) 232 H 274 H (65-110) mg/dL Random Glucose (65-105) mg/dL Calcium (8.6-10.4) mg/dl Phosphorus (2.5-4.5) mg/dL Magnesium (1.6-2.3) mg/dL Total Bilirubin (0.2-1.3) mg/dL AST (14-36) U/L ALT (9-52) U/L Alkaline Phosphatase (38-126) U/L Total Protein (6.3-8.3) g/dL Albumin (3.5-5.0) g/dL Globulin (2.2-3.9) gm/dL Albumin/Globulin Ratio (1.0-2.1) Venous Blood Potassium 4.1 (3.6-5.2) mmol/L Vancomycin Trough (5.0-10.0) ug/mL 01/24/18 01/24/18 01/24/18 Range/Units 06:14 06:14 06:14 WBC 19.0 H (4.8-10.8) K/uL RBC 3.42 L (3.80-5.20) Mil/uL Hgb 10.1 L (11.0-16.0) g/dL Hct 30.4 L (34.0-47.0) % MCV 89.1 (81.0-99.0) fL MCH 29.7 (27.0-31.0) pg MCHC 33.3 (33.0-37.0) g/dL RDW 17.9 H (11.5-14.5) % Plt Count 306 (130-400) K/uL MPV 8.0 (7.2-11.7) fL Neut % (Auto) 91.0 H (50.0-75.0) % Lymph % (Auto) 3.0 L (20.0-40.0) % [place] % (Auto) 6.0 (0.0-10.0) % Eos % (Auto) 0.0 (0.0-4.0) % Baso % (Auto) 0.0 (0.0-2.0) % Neut # (Auto) 17.0 H (1.8-7.0) K/uL Lymph # (Auto) 0.6 L (1.0-4.3) K/uL [place] # (Auto) 1.2 H (0.0-0.8) K/uL Eos # (Auto) 0.0 (0.0-0.7) K/uL Baso # (Auto) 0.0 (0.0-0.2) K/uL Neutrophils % (Manual) 90 H (50-75) % Lymphocytes % (Manual) 4 L (20-40) % Monocytes % (Manual) 6 (0-10) % Platelet Estimate Normal (NORMAL) Polychromasia Slight Hypochromasia (manual) Slight Anisocytosis (manual) Slight pO2 (30-55) mm/Hg VBG pH (7.32-7.43) VBG pCO2 (40-60) mmHg VBG HCO3 mmol/L VBG Total CO2 (22-28) mmol/L VBG O2 Sat (Calc) (40-65) % VBG Base Excess (0.0-2.0) mmol/L VBG Potassium (3.6-5.2) mmol/L Glucose (65-105) mg/dl Lactate (0.7-2.1) mmol/L Liter Flow Crit Value Called To Crit Value Called By Crit Value Read Back Blood Gas Notified Time Sodium 139 (132-148) mmol/L Potassium 2.9 L (3.6-5.2) mmol/L Chloride 109 H (98-107) mmol/L Carbon Dioxide 21 L (22-30) mmol/L Anion Gap 11 (10-20) BUN 37 H (7-17) mg/dL Creatinine 3.8 H (0.7-1.2) mg/dL Est GFR ( Amer) 15 Est GFR (Non-Af Amer) 12 POC Glucose (mg/dL) (65-110) mg/dL Random Glucose 242 H (65-105) mg/dL Calcium 7.0 L (8.6-10.4) mg/dl Phosphorus 2.6 (2.5-4.5) mg/dL Magnesium 1.6 (1.6-2.3) mg/dL Total Bilirubin 0.2 (0.2-1.3) mg/dL AST 18 (14-36) U/L ALT 21 (9-52) U/L Alkaline Phosphatase 66 (38-126) U/L Total Protein 4.3 L (6.3-8.3) g/dL Albumin 1.7 L D (3.5-5.0) g/dL Globulin 2.7 (2.2-3.9) gm/dL Albumin/Globulin Ratio 0.6 L (1.0-2.1) Venous Blood Potassium (3.6-5.2) mmol/L Vancomycin Trough 16.3 H (5.0-10.0) ug/mL 01/24/18 01/23/18 01/23/18 Range/Units 05:42 23:44 16:06 WBC (4.8-10.8) K/uL RBC (3.80-5.20) Mil/uL Hgb (11.0-16.0) g/dL Hct (34.0-47.0) % MCV (81.0-99.0) fL MCH (27.0-31.0) pg MCHC (33.0-37.0) g/dL RDW (11.5-14.5) % Plt Count (130-400) K/uL MPV (7.2-11.7) fL Neut % (Auto) (50.0-75.0) % Lymph % (Auto) (20.0-40.0) % [place] % (Auto) (0.0-10.0) % Eos % (Auto) (0.0-4.0) % Baso % (Auto) (0.0-2.0) % Neut # (Auto) (1.8-7.0) K/uL Lymph # (Auto) (1.0-4.3) K/uL [place] # (Auto) (0.0-0.8) K/uL Eos # (Auto) (0.0-0.7) K/uL Baso # (Auto) (0.0-0.2) K/uL Neutrophils % (Manual) (50-75) % Lymphocytes % (Manual) (20-40) % Monocytes % (Manual) (0-10) % Platelet Estimate (NORMAL) Polychromasia Hypochromasia (manual) Anisocytosis (manual) pO2 (30-55) mm/Hg VBG pH (7.32-7.43) VBG pCO2 (40-60) mmHg VBG HCO3 mmol/L VBG Total CO2 (22-28) mmol/L VBG O2 Sat (Calc) (40-65) % VBG Base Excess (0.0-2.0) mmol/L VBG Potassium (3.6-5.2) mmol/L Glucose (65-105) mg/dl Lactate (0.7-2.1) mmol/L Liter Flow Crit Value Called To Crit Value Called By Crit Value Read Back Blood Gas Notified Time Sodium (132-148) mmol/L Potassium (3.6-5.2) mmol/L Chloride (98-107) mmol/L Carbon Dioxide (22-30) mmol/L Anion Gap (10-20) BUN (7-17) mg/dL Creatinine (0.7-1.2) mg/dL Est GFR ( Amer) Est GFR (Non-Af Amer) POC Glucose (mg/dL) 316 H 360 H 341 H (65-110) mg/dL Random Glucose (65-105) mg/dL Calcium (8.6-10.4) mg/dl Phosphorus (2.5-4.5) mg/dL Magnesium (1.6-2.3) mg/dL Total Bilirubin (0.2-1.3) mg/dL AST (14-36) U/L ALT (9-52) U/L Alkaline Phosphatase (38-126) U/L Total Protein (6.3-8.3) g/dL Albumin (3.5-5.0) g/dL Globulin (2.2-3.9) gm/dL Albumin/Globulin Ratio (1.0-2.1) Venous Blood Potassium (3.6-5.2) mmol/L Vancomycin Trough (5.0-10.0) ug/mL Laboratory Results - last 24 hr 01/23/18 01/23/18 01/24/18 16:06 23:44 05:42 WBC RBC Hgb Hct MCV MCH MCHC RDW Plt Count MPV Neut % (Auto) Lymph % (Auto) [place] % (Auto) Eos % (Auto) Baso % (Auto) Neut # (Auto) Lymph # (Auto) [place] # (Auto) Eos # (Auto) Baso # (Auto) Neutrophils % (Manual) Lymphocytes % (Manual) Monocytes % (Manual) Platelet Estimate Polychromasia Hypochromasia (manual) Anisocytosis (manual) pO2 VBG pH VBG pCO2 VBG HCO3 VBG Total CO2 VBG O2 Sat (Calc) VBG Base Excess VBG Potassium Glucose Lactate Liter Flow Crit Value Called To Crit Value Called By Crit Value Read Back Blood Gas Notified Time Sodium Potassium Chloride Carbon Dioxide Anion Gap BUN Creatinine Est GFR ( Amer) Est GFR (Non-Af Amer) POC Glucose (mg/dL) 341 H 360 H 316 H Random Glucose Calcium Phosphorus Magnesium Total Bilirubin AST ALT Alkaline Phosphatase Total Protein Albumin Globulin Albumin/Globulin Ratio Venous Blood Potassium Vancomycin Trough 01/24/18 01/24/18 01/24/18 06:14 06:14 06:14 WBC 19.0 H RBC 3.42 L Hgb 10.1 L Hct 30.4 L MCV 89.1 MCH 29.7 MCHC 33.3 RDW 17.9 H Plt Count 306 MPV 8.0 Neut % (Auto) 91.0 H Lymph % (Auto) 3.0 L [place] % (Auto) 6.0 Eos % (Auto) 0.0 Baso % (Auto) 0.0 Neut # (Auto) 17.0 H Lymph # (Auto) 0.6 L [place] # (Auto) 1.2 H Eos # (Auto) 0.0 Baso # (Auto) 0.0 Neutrophils % (Manual) 90 H Lymphocytes % (Manual) 4 L Monocytes % (Manual) 6 Platelet Estimate Normal Polychromasia Slight Hypochromasia (manual) Slight Anisocytosis (manual) Slight pO2 VBG pH VBG pCO2 VBG HCO3 VBG Total CO2 VBG O2 Sat (Calc) VBG Base Excess VBG Potassium Glucose Lactate Liter Flow Crit Value Called To Crit Value Called By Crit Value Read Back Blood Gas Notified Time Sodium 139 Potassium 2.9 L Chloride 109 H Carbon Dioxide 21 L Anion Gap 11 BUN 37 H Creatinine 3.8 H Est GFR ( Amer) 15 Est GFR (Non-Af Amer) 12 POC Glucose (mg/dL) Random Glucose 242 H Calcium 7.0 L Phosphorus 2.6 Magnesium 1.6 Total Bilirubin 0.2 AST 18 ALT 21 Alkaline Phosphatase 66 Total Protein 4.3 L Albumin 1.7 L D Globulin 2.7 Albumin/Globulin Ratio 0.6 L Venous Blood Potassium Vancomycin Trough 16.3 H 01/24/18 01/24/18 01/24/18 09:11 11:21 17:26 WBC RBC Hgb Hct MCV MCH MCHC RDW Plt Count MPV Neut % (Auto) Lymph % (Auto) [place] % (Auto) Eos % (Auto) Baso % (Auto) Neut # (Auto) Lymph # (Auto) [place] # (Auto) Eos # (Auto) Baso # (Auto) Neutrophils % (Manual) Lymphocytes % (Manual) Monocytes % (Manual) Platelet Estimate Polychromasia Hypochromasia (manual) Anisocytosis (manual) pO2 34 VBG pH 7.38 VBG pCO2 47 VBG HCO3 25.6 VBG Total CO2 29.2 H VBG O2 Sat (Calc) 70.9 H VBG Base Excess 2.0 VBG Potassium 4.1 Glucose 506 H* D Lactate 1.6 Liter Flow 4.0 Crit Value Called To Dr jayesh beaver Crit Value Called By Dorys schofield chinchilla farmer Crit Value Read Back Y Blood Gas Notified Time 915 Sodium 128.0 L Potassium Chloride 96.0 L Carbon Dioxide Anion Gap BUN Creatinine Est GFR ( Amer) Est GFR (Non-Af Amer) POC Glucose (mg/dL) 274 H 232 H Random Glucose Calcium Phosphorus Magnesium Total Bilirubin AST ALT Alkaline Phosphatase Total Protein Albumin Globulin Albumin/Globulin Ratio Venous Blood Potassium 4.1 Vancomycin Trough Critical Care Progress Note - Nutrition Nutrition: Nutrition Category Date Time Status NPO Diet [DIET] Diets 01/23/18 Breakfast Active Assessment/Plan - Assessment and Plan (Free Text) Plan: Above patient seen and examined at bedside with above resident PAtient's pressor requirement improving. -COntinue broad spectrum abx, f.u culture -suspect ESBL requiring contact isolation -restart oral diet as tolerated. - Date & Time Date: 01/24/18 Time: 19:01
[2018-01-24] MEDS ORDERED: Amikacin 1000 mg/4 ml Inj IVPB ONE (08:53)
--- NOTE | 2018-01-24 09:05 | CP.PCM.PN ---
Subjective - Date & Time of Evaluation Date of Evaluation: 01/24/18 Time of Evaluation: 08:30 - Subjective Subjective: seen and examined by me. patient is lethargic,Respond to pain,nonverbal. On Levophed, Levophed drip running via blue port of dialysis catheter.Poor venous access Objective - Vital Signs/Intake and Output Vital Signs (last 24 hours): Temp Pulse Resp BP Pulse Ox 99.5 F 95 H 20 114/39 L 100 01/24/18 07:52 01/24/18 07:52 01/24/18 07:52 01/24/18 07:52 01/24/18 07:52 Intake and Output: 01/24/18 01/24/18 06:59 18:59 Intake Total 1079.0 37.5 Output Total 0 0 Balance 1079.0 37.5 - Medications Medications: Current Medications Acetaminophen (Tylenol 325mg Tab) 650 mg PO Q6 PRN PRN Reason: Fever >100.4 F Acetaminophen (Tylenol 325mg Tab) 650 mg PO Q6 PRN PRN Reason: Pain, Mild (1-3) Amikacin Sulfate (Amikacin) 1,160 mg 15 mg/kg (1160 mg) IVPB ONCE ONE PRN Reason: Protocol Stop: 01/24/18 08:54 Bisacodyl (Dulcolax) 10 mg OR ONCE PRN PRN Reason: Constipation Dextrose (Dextrose 50% Inj) 0 ml IV STAT PRN; Protocol PRN Reason: Hypoglycemia Protocol Dextrose (Glutose 15) 0 gm PO ONCE PRN; Protocol PRN Reason: Hypoglycemia Protocol Docusate Sodium (Colace) 100 mg PO BID [facility] Last Admin: 01/23/18 18:40 Dose: Not Given Emtricitabine/Tenofovir (Truvada 200 Mg-300 Mg) 1 tab PO Q48H [facility] PRN Reason: Protocol Last Admin: 01/22/18 14:30 Dose: Not Given Epoetin Alonso (Procrit) 10,000 unit IV MWF [facility] Glucagon (Glucagen Diagnostic Kit) 0 mg IM STAT PRN; Protocol PRN Reason: Hypoglycemia Protocol Hydrocortisone Sodium Succinate (Solu-Cortef) 100 mg IV Q8H [facility] Hydromorphone HCl (Dilaudid) 0.5 mg IVP Q6H PRN PRN Reason: Pain, moderate (4-7) Vancomycin/Sodium Chloride (Vancomycin 1 Gm/Ns 200 Ml) 1 gm in 200 mls @ 133 mls/hr IVPB MWF [facility] PRN Reason: Protocol Stop: 01/29/18 09:01 Dextrose (Dextrose 5% In Water 1000 Ml) 1,000 mls @ 0 mls/hr IV .Q0M PRN; Protocol; Per Protocol PRN Reason: Hypoglycemia Protocol Norepinephrine Bitartrate 4 mg (/ Dextrose) 254 mls @ 15.24 mls/hr IV .[id number] PRN; Protocol; 4 MCG/MIN PRN Reason: TITRATE PER MD ORDER Last Admin: 01/24/18 02:53 Dose: 10 mcg/min, 38.1 mls/hr Meropenem 500 mg/ Sodium (Chloride) 100 mls @ 100 mls/hr IVPB Q12 [facility] PRN Reason: Protocol Last Admin: 01/23/18 22:04 Dose: 100 mls/hr Potassium Chloride (Potassium Chloride 20 Meq/100 Ml) 20 meq in 100 mls @ 50 mls/hr IVPB ONCE ONE Stop: 01/24/18 09:07 Last Admin: 01/24/18 07:45 Dose: 50 mls/hr Insulin Human Regular (Novolin R) 0 unit SC Q6 [facility] PRN Reason: Protocol Last Admin: 01/24/18 06:01 Dose: 4 u Midodrine (Proamatine) 5 mg PO TID [facility] Pantoprazole Sodium (Protonix Inj) 40 mg IVP DAILY [facility] Last Admin: 01/23/18 11:43 Dose: Not Given Sevelamer Carbonate (Renvela) 800 mg PO TID [facility] Last Admin: 01/23/18 18:40 Dose: Not Given Simethicone (Mylicon Chew Tab) 80 mg PO QID [facility] Last Admin: 01/23/18 22:04 Dose: Not Given Vitamin B Complex/Vit C/Folic Acid (Nephro-Carlos) 1 tab PO DAILY [facility] Last Admin: 01/23/18 11:43 Dose: Not Given - Labs Labs: 01/24/18 06:14 01/24/18 06:14 PT 11.1 SECONDS (9.7-12.2) 01/22/18 12:20 INR 1.0 01/22/18 12:20 APTT 27 SECONDS (21-34) 01/22/18 12:20 - Constitutional Appears: Chronically Ill - Head Exam Head Exam: ATRAUMATIC - Eye Exam Eye Exam: Normal appearance - ENT Exam ENT Exam: Mucous Membranes Moist - Respiratory Exam Respiratory Exam: Clear to Ausculation Bilateral - Cardiovascular Exam Cardiovascular Exam: REGULAR RHYTHM - GI/Abdominal Exam GI & Abdominal Exam: Soft, Normal Bowel Sounds - Extremities Exam Extremities Exam: absent: Full ROM, Normal Inspection (aka) - Neurological Exam Neurological Exam: Altered (nonverbal,respond to pain) - Psychiatric Exam Psychiatric exam: absent: Normal Mood (respond to pain) - Skin Skin Exam: Dry Assessment and Plan - Assessment and Plan (Free Text) Assessment: This 58yo F with PMHx of recent L AKA 2/2 Dry [place], HLD, HTN, HIV ( undetectable), ESRD on dialysis MWF, DM (on insulin), PAD - is brought to the emergency department from her longterm with complaints of a fever, weakness , fatigue, and AMS for several days. She had followup with Dr. Sinclair 2 days ago on 01/20/18, who advised the patient to return to [facility] based on the appearance of her L AKA. In the ED, the patient is extremely altered and lethargic .Pt was hypotensive, anemic with Hgb 6.4, and unresponsive to a bolus of NS 0.9 at 500cc. She received Vanco 1Gm IVPB, Cefepime 1Gm IVPB, Tylenol 650mg supp, and was type/crossed and admitted to ICU for further care. Plan: 1. Sepsis Her sepsis is likely due to left aka stump infection S/P Left AKA (on 01/01/18) She went for further amputation of infected stump on 01/23/[address] Sinclair Wound culture positive for pseudomonoas sensitive to merrem blood culture x2 done on 01/22 positive for gram positive cocci -follow sensitivity continue Vanco on MWF and Merapenem as per ID follow infectious disease Dr Villegas (L Femur XR 01/22: Status post [id number] amputation, well-circumscribed round osteolytic area in the distal femur proximal to the amputation is nonspecific, the differential considerations include Addi's abscess, benign and malignant neoplasm. MRI of the femur without and with intravenous contrast would be helpful for further characterization. see full report Planning for MRI with and w/o contrast to be arranged by Nephrology once pt more stable 2. Hypotension- on levophed continue midodrine 3.Anemia s/p blood transfusion today's hemoglobin is 10 4. Hx of Systolic CHF-stable Imdur 60mg PO qd and Metroprolol 25mg PO BID on hold 5. End stage renal disease on dialysis ESRD on HD: MWF schedule Nephrology consulted- Dr. Dominguez on nephrovite and Renvela 6.HTN (hypertension)--> currently hypotensive 7. Diabetes FS with insulin coverage 8.HIV (human immunodeficiency virus infection) Continue home medication: Truvada 1tab PO daily, Issentriss 400mg PO BID (CD4 count 143 and Viral load not detected(12/05/17)) 9 Hx HLD 10 .Hx Anxiety 11. Hx Thrombocytopenia 12. Prophylactic measure DVT: Hold chemical anticoagulation Full Code Protonix for Gi prophy Her prognosis poor.I spoke to her son Dilip.He is very positive he believes that she will come out like last time. Patient's son Dilip Zhong is unofficial health proxy. His phone number to contact [phone]
[2018-01-24 09:15] LABS: VENOUS BLOOD GAS PCO2 47 mmHg (40-60); VENOUS BLOOD GAS PO2 34 mm/Hg (30-55); VENOUS BLOOD PH 7.38 (7.32-7.43)
[2018-01-24] MEDS ORDERED: (Novolin R) Insulin Human Regular 100 units/ml vial SC ONE (09:26)
--- NOTE | 2018-01-24 09:38 | CP.PCM.PN ---
Subjective - Date & Time of Evaluation Date of Evaluation: 01/24/18 Time of Evaluation: 09:36 - Subjective Subjective: Surgery PT seen and examined. Pt underwent surgery yesterday. Pt looks lethargic. Response to pain stimuli and verbal stimuli. Opens her eyes. Pt is on pressers. Dressing C/D/I. Objective - Vital Signs/Intake and Output Vital Signs (last 24 hours): Temp Pulse Resp BP Pulse Ox 99.5 F 87 36 H 89/29 L 95 01/24/18 07:52 01/24/18 09:02 01/24/18 09:02 01/24/18 09:02 01/24/18 09:02 Intake and Output: 01/24/18 01/24/18 06:59 18:59 Intake Total 1079.0 112.5 Output Total 0 0 Balance 1079.0 112.5 - Medications Medications: Current Medications Acetaminophen (Tylenol 325mg Tab) 650 mg PO Q6 PRN PRN Reason: Fever >100.4 F Acetaminophen (Tylenol 325mg Tab) 650 mg PO Q6 PRN PRN Reason: Pain, Mild (1-3) Bisacodyl (Dulcolax) 10 mg NM ONCE PRN PRN Reason: Constipation Dextrose (Dextrose 50% Inj) 0 ml IV STAT PRN; Protocol PRN Reason: Hypoglycemia Protocol Dextrose (Glutose 15) 0 gm PO ONCE PRN; Protocol PRN Reason: Hypoglycemia Protocol Docusate Sodium (Colace) 100 mg PO BID [facility] Last Admin: 01/23/18 18:40 Dose: Not Given Emtricitabine/Tenofovir (Truvada 200 Mg-300 Mg) 1 tab PO Q48H [facility] PRN Reason: Protocol Last Admin: 01/22/18 14:30 Dose: Not Given Epoetin Alonso (Procrit) 10,000 unit IV MWF [facility] Glucagon (Glucagen Diagnostic Kit) 0 mg IM STAT PRN; Protocol PRN Reason: Hypoglycemia Protocol Hydrocortisone Sodium Succinate (Solu-Cortef) 100 mg IV Q8H [facility] Hydromorphone HCl (Dilaudid) 0.5 mg IVP Q6H PRN PRN Reason: Pain, moderate (4-7) Vancomycin/Sodium Chloride (Vancomycin 1 Gm/Ns 200 Ml) 1 gm in 200 mls @ 133 mls/hr IVPB MWF [facility] PRN Reason: Protocol Stop: 01/29/18 09:01 Dextrose (Dextrose 5% In Water 1000 Ml) 1,000 mls @ 0 mls/hr IV .Q0M PRN; Protocol; Per Protocol PRN Reason: Hypoglycemia Protocol Norepinephrine Bitartrate 4 mg (/ Dextrose) 254 mls @ 15.24 mls/hr IV .[id number] PRN; Protocol; 4 MCG/MIN PRN Reason: TITRATE PER MD ORDER Last Admin: 01/24/18 02:53 Dose: 10 mcg/min, 38.1 mls/hr Meropenem 500 mg/ Sodium (Chloride) 100 mls @ 100 mls/hr IVPB Q12 [facility] PRN Reason: Protocol Last Admin: 01/23/18 22:04 Dose: 100 mls/hr Amikacin Sulfate 1,160 mg/ (Sodium Chloride) 254.64 mls @ 250 mls/hr IV ONCE ONE Stop: 01/24/18 11:01 Insulin Human Regular (Novolin R) 0 unit SC Q6 [facility] PRN Reason: Protocol Midodrine (Proamatine) 5 mg PO TID [facility] Pantoprazole Sodium (Protonix Inj) 40 mg IVP DAILY [facility] Last Admin: 01/23/18 11:43 Dose: Not Given Sevelamer Carbonate (Renvela) 800 mg PO TID [facility] Last Admin: 01/23/18 18:40 Dose: Not Given Simethicone (Mylicon Chew Tab) 80 mg PO QID [facility] Last Admin: 01/23/18 22:04 Dose: Not Given Vitamin B Complex/Vit C/Folic Acid (Nephro-Carlos) 1 tab PO DAILY [facility] Last Admin: 01/23/18 11:43 Dose: Not Given - Labs Labs: 01/24/18 06:14 01/24/18 06:14 PT 11.1 SECONDS (9.7-12.2) 01/22/18 12:20 INR 1.0 01/22/18 12:20 APTT 27 SECONDS (21-34) 01/22/18 12:20 - Constitutional Appears: In Acute Distress - Head Exam Head Exam: ATRAUMATIC, NORMAL INSPECTION, NORMOCEPHALIC - Eye Exam Eye Exam: EOMI, Normal appearance, PERRL Pupil Exam: NORMAL ACCOMODATION, PERRL - ENT Exam ENT Exam: Mucous Membranes Moist, Normal Exam - Neck Exam Neck Exam: Full ROM, Normal Inspection. absent: Lymphadenopathy - Respiratory Exam Respiratory Exam: NORMAL BREATHING PATTERN - Cardiovascular Exam Cardiovascular Exam: REGULAR RHYTHM, +S1, +S2 - GI/Abdominal Exam GI & Abdominal Exam: Soft. absent: Distended, Firm, Guarding, Rigid, Tenderness - Exam Exam: NORMAL INSPECTION - Extremities Exam Extremities Exam: absent: Full ROM, Joint Swelling, Normal Inspection, Pedal Edema Additional comments: AKA dressing C/D/I. No bleeding noted. - Neurological Exam Neurological Exam: Altered, Awake. absent: Alert, Normal Gait, Oriented x3 - Skin Skin Exam: Dry, Warm Assessment and Plan - Assessment and Plan (Free Text) Assessment: POD 1 s/p AKA revision L leg Leukocytosis -ICU management -Poor prognosis -Recommend palliative care DW Dr. Sinclair
[2018-01-24] MEDS: Meropenem 500 MG in Sodium Chloride 0.9% 100 ML IVPB SCH ×2 (09:49→21:34)
[2018-01-24] MEDS ORDERED: AMIKACIN IV ONE (10:00)
[2018-01-24] MEDS ORDERED: SODIUM CHLORIDE 0.9% IV ONE (10:00)
[2018-01-24] MEDS: Simethicone 80 mg Chewtab PO SCH ×4 (10:06→21:35)
[2018-01-24] MEDS: Vancomycin 1 gm/NS 200 ml 1 GM/200 ML BAG IVPB SCH (10:23)
[2018-01-24] MEDS: Multivitamin Vitamin B Complex (Nephro-Vite) Tab PO SCH (10:30)
--- NOTE | 2018-01-24 10:53 | VASCLAB ---
PROCEDURE: Right Lower Extremity Venous Duplex Exam. HISTORY: Pain PRIORS: Last exam 09/29/2008, normal. TECHNIQUE: Right common femoral, femoral, popliteal and posterior tibial, peroneal and great saphenous veins were evaluated. Flow was assessed with color Doppler, compressibility, assessment of phasic flow and augmentation response. Report prepared by VALERIE Granger FINDINGS: RIGHT: 1. Common Femoral Vein: 1.1. Dressing in the groin. 2. Femoral Vein: 2.1. Compressibility - Fully compressible: Thrombus - None: Flow - Phasic: Augmentation -Normal: Reflux - None. 3. Popliteal Vein: 3.1. Compressibility - Fully compressible: Thrombus - None: Flow - Phasic: Augmentation -Normal: Reflux - None. 4. Posterior Tibial Vein: 4.1. BKA 5. Peroneal Vein: 5.1. BKA 6. Great Saphenous Vein: (upper) 6.1. Compressibility - Fully compressible: Thrombus -None: Flow - Phasic: Augmentation - Normal: Reflux - None. OTHER FINDINGS: IMPRESSION: 1. Compressible right femoral and popliteal veins, with normal phasic venous flow. No DVT. 2. Right BKA.
[2018-01-24 10:59] LABS: LYMPH # 0.6 K/uL (1.0-4.3); MONO # 1.2 K/uL (0.0-0.8)
[2018-01-24 11:02] LABS: LYMPHOCYTE 4 % (20-40); MONOCYTE 6 % (0-10); NEUTROPHIL 90 % (50-75); TOTAL CELLS COUNTED 100
[2018-01-24 11:04] LABS: ANISOCYTOSIS SLIGHT; PLATELET ESTIMATE NORMAL (NORMAL)
[2018-01-24 11:05] LABS: HYPOCHROMIC SLIGHT
[2018-01-24 11:06] LABS: POLYCHROMIC SLIGHT
--- NOTE | 2018-01-24 13:36 | CP.PCM.PN ---
Subjective - Date & Time of Evaluation Date of Evaluation: 01/24/18 Time of Evaluation: 11:05 - Subjective Subjective: Patient and bed poorly responsive perhaps she was sedated Blood pressure remained low less than 90 on Levophed Objective - Vital Signs/Intake and Output Vital Signs (last 24 hours): Temp Pulse Resp BP Pulse Ox 98.4 F 89 0 L 106/42 L 100 01/24/18 12:00 01/24/18 13:01 01/24/18 13:01 01/24/18 13:01 01/24/18 13:01 Intake and Output: 01/24/18 01/24/18 06:59 18:59 Intake Total 1079.0 796.5 Output Total 0 0 Balance 1079.0 796.5 - Medications Medications: Current Medications Acetaminophen (Tylenol 325mg Tab) 650 mg PO Q6 PRN PRN Reason: Fever >100.4 F Acetaminophen (Tylenol 325mg Tab) 650 mg PO Q6 PRN PRN Reason: Pain, Mild (1-3) Bisacodyl (Dulcolax) 10 mg CA ONCE PRN PRN Reason: Constipation Last Admin: 01/24/18 10:15 Dose: 10 mg Dextrose (Dextrose 50% Inj) 0 ml IV STAT PRN; Protocol PRN Reason: Hypoglycemia Protocol Dextrose (Glutose 15) 0 gm PO ONCE PRN; Protocol PRN Reason: Hypoglycemia Protocol Docusate Sodium (Colace) 100 mg PO BID [facility] Last Admin: 01/24/18 10:07 Dose: 100 mg Emtricitabine/Tenofovir (Truvada 200 Mg-300 Mg) 1 tab PO Q48H [facility] PRN Reason: Protocol Last Admin: 01/22/18 14:30 Dose: Not Given Epoetin Alonso (Procrit) 10,[address] [facility] Glucagon (Glucagen Diagnostic Kit) 0 mg IM STAT PRN; Protocol PRN Reason: Hypoglycemia Protocol Hydrocortisone Sodium Succinate (Solu-Cortef) 100 mg IV Q8H [facility] Last Admin: 01/24/18 09:38 Dose: 100 mg Hydromorphone HCl (Dilaudid) 0.5 mg IVP Q6H PRN PRN Reason: Pain, moderate (4-7) Vancomycin/Sodium Chloride (Vancomycin 1 Gm/Ns 200 Ml) 1 gm in 200 mls @ 133 mls/hr IVPB [facility] PRN Reason: Protocol Stop: 01/29/18 09:01 Last Admin: 01/24/18 10:23 Dose: 133 mls/hr Dextrose (Dextrose 5% In Water 1000 Ml) 1,000 mls @ 0 mls/hr IV .Q0M PRN; Protocol; Per Protocol PRN Reason: Hypoglycemia Protocol Norepinephrine Bitartrate 4 mg (/ Dextrose) 254 mls @ 15.24 mls/hr IV .[id number] PRN; Protocol; 4 MCG/MIN PRN Reason: TITRATE PER MD ORDER Last Titration: 01/24/18 10:33 Dose: 10 mcg/min, 38.1 mls/hr Meropenem 500 mg/ Sodium (Chloride) 100 mls @ 100 mls/hr IVPB Q12 [facility] PRN Reason: Protocol Last Admin: 01/24/18 09:49 Dose: 100 mls/hr Insulin Human Regular (Novolin R) 0 unit SC Q6 [facility] PRN Reason: Protocol Last Admin: 01/24/18 12:35 Dose: 4 u Midodrine (Proamatine) 5 mg PO TID [facility] Last Admin: 01/24/18 10:09 Dose: 5 mg Pantoprazole Sodium (Protonix Inj) 40 mg IVP DAILY [facility] Last Admin: 01/24/18 10:07 Dose: 40 mg Sevelamer Carbonate (Renvela) 800 mg PO TID [facility] Last Admin: 01/24/18 10:07 Dose: 800 mg Simethicone (Mylicon Chew Tab) 80 mg PO QID [facility] Last Admin: 01/24/18 10:06 Dose: 80 mg Vitamin B Complex/Vit C/Folic Acid (Nephro-Carlos) 1 tab PO DAILY [facility] Last Admin: 01/24/18 10:30 Dose: 1 tab - Labs Labs: 01/24/18 06:14 01/24/18 06:14 PT 11.1 SECONDS (9.7-12.2) 01/22/18 12:20 INR 1.0 01/22/18 12:20 APTT 27 SECONDS (21-34) 01/22/18 12:20 - Constitutional Appears: No Acute Distress - ENT Exam ENT Exam: Mucous Membranes Moist - Neck Exam Neck Exam: absent: Lymphadenopathy - Respiratory Exam Respiratory Exam: absent: Chest Wall Tenderness - Cardiovascular Exam Cardiovascular Exam: absent: JVD, Rubs - GI/Abdominal Exam GI & Abdominal Exam: Soft, Normal Bowel Sounds - Back Exam Back Exam: CVA tenderness (R). absent: CVA tenderness (L) - Neurological Exam Neurological Exam: Altered - Psychiatric Exam Psychiatric exam: Flat Affect Assessment and Plan (1) End stage renal disease Assessment & Plan: Patient remained poorly responsive perhaps she was sedated. 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 right and also status post debridement yesterday above the stump PMHx: uncontrolled DM, HTN, HLD, HIV, PAD, chronic heel ulcers, ESRD on HD WMF Allergies: None Surgeries: Right BKA amputation, multiple placements for vascular access for dialysis Medications: Isentress 400mg BID, Starlix 60mg daily, metroprolol 25mg BID, procrit 10k IV MWF, isorbide mononitrate 60mg PO daily, Lopinavir/Ritonavir 200- 50 PO BID, Toprol 25mg BID, Iron pills 500mg PO TID, Vit B complex, Folic Acid Social: Lives with son, does not walk at baseline (amputation of the right extrem below the knee most recently), former smoker Status: Acute (2) Cellulitis Status: Acute (3) GI bleed Status: Acute (4) Hypotension Status: Acute (5) Anemia Status: Acute
[2018-01-24] MEDS: Emtricitabine-Tenofovir 200 mg-300 mg Tab PO SCH (14:44)
[2018-01-24] MEDS: Epoetin Alfa 10,000 unit/ml Dialysis IV SCH (17:15)
--- NOTE | 2018-01-24 18:35 | CP.PCM.PN ---
Subjective - Date & Time of Evaluation Date of Evaluation: 01/24/18 Time of Evaluation: 04:00 - Subjective Subjective: dictated Objective - Vital Signs/Intake and Output Vital Signs (last 24 hours): Temp Pulse Resp BP Pulse Ox 99.1 F 86 15 99/49 L 100 01/24/18 16:00 01/24/18 18:00 01/24/18 18:00 01/24/18 17:38 01/24/18 18:00 Intake and Output: 01/24/18 01/24/18 06:59 18:59 Intake Total 1079.0 1379.0 Output Total 0 0 Balance 1079.0 1379.0 - Medications Medications: Current Medications Acetaminophen (Tylenol 325mg Tab) 650 mg PO Q6 PRN PRN Reason: Fever >100.4 F Acetaminophen (Tylenol 325mg Tab) 650 mg PO Q6 PRN PRN Reason: Pain, Mild (1-3) Bisacodyl (Dulcolax) 10 mg [place] ONCE PRN PRN Reason: Constipation Last Admin: 01/24/18 10:15 Dose: 10 mg Dextrose (Dextrose 50% Inj) 0 ml IV STAT PRN; Protocol PRN Reason: Hypoglycemia Protocol Dextrose (Glutose 15) 0 gm PO ONCE PRN; Protocol PRN Reason: Hypoglycemia Protocol Docusate Sodium (Colace) 100 mg PO BID [facility] Last Admin: 01/24/18 17:33 Dose: 100 mg Emtricitabine/Tenofovir (Truvada 200 Mg-300 Mg) 1 tab PO Q48H [facility] PRN Reason: Protocol Last Admin: 01/24/18 14:44 Dose: 1 tab Epoetin Alonso (Procrit) 10,000 unit IV MWF [facility] Last Admin: 01/24/18 17:15 Dose: 10,000 unit Glucagon (Glucagen Diagnostic Kit) 0 mg IM STAT PRN; Protocol PRN Reason: Hypoglycemia Protocol Hydrocortisone Sodium Succinate (Solu-Cortef) 100 mg IV Q8H [facility] Last Admin: 01/24/18 17:32 Dose: 100 mg Hydromorphone HCl (Dilaudid) 0.5 mg IVP Q6H PRN PRN Reason: Pain, moderate (4-7) Vancomycin/Sodium Chloride (Vancomycin 1 Gm/Ns 200 Ml) 1 gm in 200 mls @ 133 mls/hr IVPB MWF [facility] PRN Reason: Protocol Stop: 01/29/18 09:01 Last Admin: 01/24/18 10:23 Dose: 133 mls/hr Dextrose (Dextrose 5% In Water 1000 Ml) 1,000 mls @ 0 mls/hr IV .Q0M PRN; Protocol; Per Protocol PRN Reason: Hypoglycemia Protocol Norepinephrine Bitartrate 4 mg (/ Dextrose) 254 mls @ 15.24 mls/hr IV .[id number] PRN; Protocol; 4 MCG/MIN PRN Reason: TITRATE PER MD ORDER Last Admin: 01/24/18 17:38 Dose: 10 mcg/min, 38.1 mls/hr Meropenem 500 mg/ Sodium (Chloride) 100 mls @ 100 mls/hr IVPB Q12 [facility] PRN Reason: Protocol Last Admin: 01/24/18 09:49 Dose: 100 mls/hr Insulin Human Regular (Novolin R) 0 unit SC Q6 [facility] PRN Reason: Protocol Last Admin: 01/24/18 17:35 Dose: 4 u Midodrine (Proamatine) 5 mg PO TID [facility] Last Admin: 01/24/18 17:33 Dose: 5 mg Pantoprazole Sodium (Protonix Inj) 40 mg IVP DAILY [facility] Last Admin: 01/24/18 10:07 Dose: 40 mg Sevelamer Carbonate (Renvela) 800 mg PO TID [facility] Last Admin: 01/24/18 17:33 Dose: 800 mg Simethicone (Mylicon Chew Tab) 80 mg PO QID [facility] Last Admin: 01/24/18 17:33 Dose: 80 mg Vitamin B Complex/Vit C/Folic Acid (Nephro-Carlos) 1 tab PO DAILY [facility] Last Admin: 01/24/18 10:30 Dose: 1 tab - Labs Labs: 01/24/18 06:14 01/24/18 06:14 PT 11.1 SECONDS (9.7-12.2) 01/22/18 12:20 INR 1.0 01/22/18 12:20 APTT 27 SECONDS (21-34) 01/22/18 12:20
--- NOTE | 2018-01-24 22:13 | CP.PCM.PN ---
Subjective - Date & Time of Evaluation Date of Evaluation: 01/24/18 Time of Evaluation: 14:10 - Subjective Subjective: Patient is lethargic,Respond to pain,nonverbal. On Levophed, Levophed drip running via blue port of dialysis catheter.Poor venous access Physical Examination - Constitutional Appears: Chronically Ill - Head Exam Head Exam: ATRAUMATIC - Eye Exam Eye Exam: Normal appearance - ENT Exam ENT Exam: Mucous Membranes Moist - Respiratory Exam Respiratory Exam: Clear to Ausculation Bilateral - Cardiovascular Exam Cardiovascular Exam: REGULAR RHYTHM - GI/Abdominal Exam GI & Abdominal Exam: Soft, Normal Bowel Sounds - Extremities Exam Extremities Exam: absent: Full ROM, Normal Inspection (aka) - Neurological Exam Neurological Exam: Altered (nonverbal,respond to pain) - Psychiatric Exam Psychiatric exam: absent: Normal Mood (respond to pain) - Skin Skin Exam: Dry This 58yo F with PMHx of recent L AKA 2/2 Dry [place], HLD, HTN, HIV ( undetectable), ESRD on dialysis MWF, DM (on insulin), PAD - is brought to the emergency department from her longterm with complaints of a fever, weakness , fatigue, and AMS for several days. She had followup with Dr. Sinclair 2 days ago on 01/20/18, who advised the patient to return to [facility] based on the appearance of her L AKA. In the ED, the patient is extremely altered and lethargic .Pt was hypotensive, anemic with Hgb 6.4, and unresponsive to a bolus of NS 0.9 at 500cc. She received Vanco 1Gm IVPB, Cefepime 1Gm IVPB, Tylenol 650mg supp, and was type/crossed and admitted to ICU for further care. Plan: 1. Sepsis Her sepsis is likely due to left aka stump infection S/P Left AKA (on 01/01/18) She went for further amputation of infected stump on 01/23/[address] Sinclair Wound culture positive for pseudomonoas sensitive to merrem blood culture x2 done on 01/22 positive for gram positive cocci -follow sensitivity continue Vanco on MWF and Merapenem as per ID follow infectious disease Dr Villegas (L Femur XR 01/22: Status post [id number] amputation, well-circumscribed round osteolytic area in the distal femur proximal to the amputation is nonspecific, the differential considerations include Addi's abscess, benign and malignant neoplasm. MRI of the femur without and with intravenous contrast would be helpful for further characterization. see full report Planning for MRI with and w/o contrast to be arranged by Nephrology once pt more stable 2. Hypotension- on levophed continue midodrine 3.Anemia s/p blood transfusion today's hemoglobin is 10 4. Hx of Systolic CHF-stable Imdur 60mg PO qd and Metroprolol 25mg PO BID on hold 5. End stage renal disease on dialysis ESRD on HD: MWF schedule Nephrology consulted- Dr. Dominguez on nephrovite and Renvela 6.HTN (hypertension)--> currently hypotensive 7. Diabetes FS with insulin coverage 8.HIV (human immunodeficiency virus infection) Continue home medication: Truvada 1tab PO daily, Issentriss 400mg PO BID (CD4 count 143 and Viral load not detected(12/05/17)) 9 Hx HLD 10 .Hx Anxiety 11. Hx Thrombocytopenia 12. Prophylactic measure DVT: Hold chemical anticoagulation Full Code Protonix for Gi prophy Objective - Vital Signs/Intake and Output Vital Signs (last 24 hours): Temp Pulse Resp BP Pulse Ox 98.1 F 75 0 L 96/25 L 100 01/24/18 20:00 01/24/18 20:45 01/24/18 20:45 01/24/18 20:33 01/24/18 20:45 Intake and Output: 01/24/18 01/25/18 18:59 06:59 Intake Total 1679.0 150.0 Output Total 0 0 Balance 1679.0 150.0 - Medications Medications: Current Medications Acetaminophen (Tylenol 325mg Tab) 650 mg PO Q6 PRN PRN Reason: Fever >100.4 F Acetaminophen (Tylenol 325mg Tab) 650 mg PO Q6 PRN PRN Reason: Pain, Mild (1-3) Bisacodyl (Dulcolax) 10 mg [place] ONCE PRN PRN Reason: Constipation Last Admin: 01/24/18 10:15 Dose: 10 mg Dextrose (Dextrose 50% Inj) 0 ml IV STAT PRN; Protocol PRN Reason: Hypoglycemia Protocol Dextrose (Glutose 15) 0 gm PO ONCE PRN; Protocol PRN Reason: Hypoglycemia Protocol Docusate Sodium (Colace) 100 mg PO BID [facility] Last Admin: 01/24/18 17:33 Dose: 100 mg Emtricitabine/Tenofovir (Truvada 200 Mg-300 Mg) 1 tab PO Q48H [facility] PRN Reason: Protocol Last Admin: 01/24/18 14:44 Dose: 1 tab Epoetin Alonso (Procrit) 10,000 unit IV MWF [facility] Last Admin: 01/24/18 17:15 Dose: 10,000 unit Glucagon (Glucagen Diagnostic Kit) 0 mg IM STAT PRN; Protocol PRN Reason: Hypoglycemia Protocol Hydrocortisone Sodium Succinate (Solu-Cortef) 100 mg IV Q8H [facility] Last Admin: 01/24/18 17:32 Dose: 100 mg Hydromorphone HCl (Dilaudid) 0.5 mg IVP Q6H PRN PRN Reason: Pain, moderate (4-7) Vancomycin/Sodium Chloride (Vancomycin 1 Gm/Ns 200 Ml) 1 gm in 200 mls @ 133 mls/hr IVPB MWF [facility] PRN Reason: Protocol Stop: 01/29/18 09:01 Last Admin: 01/24/18 10:23 Dose: 133 mls/hr Dextrose (Dextrose 5% In Water 1000 Ml) 1,000 mls @ 0 mls/hr IV .Q0M PRN; Protocol; Per Protocol PRN Reason: Hypoglycemia Protocol Norepinephrine Bitartrate 4 mg (/ Dextrose) 254 mls @ 15.24 mls/hr IV .[id number] PRN; Protocol; 4 MCG/MIN PRN Reason: TITRATE PER MD ORDER Last Admin: 01/24/18 17:38 Dose: 10 mcg/min, 38.1 mls/hr Meropenem 500 mg/ Sodium (Chloride) 100 mls @ 100 mls/hr IVPB Q12 [facility] PRN Reason: Protocol Last Admin: 01/24/18 21:34 Dose: 100 mls/hr Insulin Human Regular (Novolin R) 0 unit SC Q6 [facility] PRN Reason: Protocol Last Admin: 01/24/18 17:35 Dose: 4 u Midodrine (Proamatine) 5 mg PO TID [facility] Last Admin: 01/24/18 17:33 Dose: 5 mg Pantoprazole Sodium (Protonix Inj) 40 mg IVP DAILY [facility] Last Admin: 01/24/18 10:07 Dose: 40 mg Sevelamer Carbonate (Renvela) 800 mg PO TID [facility] Last Admin: 01/24/18 17:33 Dose: 800 mg Simethicone (Mylicon Chew Tab) 80 mg PO QID [facility] Last Admin: 01/24/18 21:35 Dose: 80 mg Vitamin B Complex/Vit C/Folic Acid (Nephro-Carlos) 1 tab PO DAILY [facility] Last Admin: 01/24/18 10:30 Dose: 1 tab - Labs Labs: 01/24/18 06:14 01/24/18 06:14 PT 11.1 SECONDS (9.7-12.2) 01/22/18 12:20 INR 1.0 01/22/18 12:20 APTT 27 SECONDS (21-34) 01/22/18 12:20
--- NOTE | 2018-01-24 22:30 | PN ---
DATE: 01/24/2018 SUBJECTIVE: When I went today to see her I saw that the blood cultures were positive for GPCs. She has been on vancomycin as well as Merrem. She remains hypotensive on Levophed. She was very sedated, but basically unresponsive, but most of the times I find her drowsy in the past, may be the sedation is there. Whole family was around her bedside, and the sons are aware that there is a positive blood culture, and I think she will again need the change of the catheter. At some point, we will discuss with Dr. Sinclair, but remains on Levophed at this time and her white count has also gone up. She did receive big dose of amikacin from the patternmaker hand today, which will help her. We will not give any more amikacin until she gets another dialysis done, may be we can put her on 500 after each dialysis if needed, which I will do next few days. PHYSICAL EXAMINATION: VITAL SIGNS: She is afebrile, otherwise. Pulse is 90, blood pressure 98/24, saturation 100%. GENERAL: She is sedated. NECK: Supple. LUNGS: Clear. Decreased breath sounds bilaterally. HEART: S1 and S2 present. ABDOMEN: Soft. Nontender. EXTREMITIES: She has a dressing on the left stump, which she had surgery. LABORATORY DATA: White count 19, hemoglobin 10.1, hematocrit 30.4, platelet count is 306. Her chemistry shows potassium 2.9, BUN 37, creatinine 3.8. We will leave that to the renal attending. Microwise, her culture shows gram negatives in the wound. Wound culture is positive for Pseudomonas. Blood cultures are positive for GPCs so they may be of different origin. Pseudomonas is sensitive to meropenem and is also sensitive to gentamicin. I will put her on gentamicin post dialysis, and we will follow, and she also remains on vancomycin at this point. We will also order an echocardiogram I have not done on this admission. I will see the echo. IMPRESSION: This patient has gram positive septicemia with end-stage renal disease, possibly catheter sepsis, she has had many time in the past. She is status post left stump re-surgery done for the necrosis of the stump, and she is human immunodeficiency virus positive. We will continue with the treatment, and we will follow. I would just repeat a CD4, CDA count but I have done it recently so we will hold off on that. At this time, we will treat her for the septicemia, and we will follow. Tammy Villegas MD
[2018-01-25] MEDS: (Novolin R) Insulin Human Regular 100 units/ml vial SC SCH ×4 (00:15→18:05)
[2018-01-25 05:51] LABS: VENOUS BLOOD GAS BASE EXCESS 1.7 mmol/L (0.0-2.0); VENOUS BLOOD GAS PCO2 48 mmHg (40-60); VENOUS BLOOD GAS PO2 36 mm/Hg (30-55); VENOUS BLOOD PH 7.37 (7.32-7.43)
[2018-01-25 06:41] LABS: BASO # 0.2 K/uL (0.0-0.2); BASO % 1.2 % (0.0-2.0); HEMOGLOBIN 9.7 g/dL (11.0-16.0); LYMPH # 0.5 K/uL (1.0-4.3); LYMPH % 2.8 % (20.0-40.0); MEAN CELL VOLUME 89.8 fL (81.0-99.0); MEAN CORPUSCULAR HGB CONC 32.3 g/dL (33.0-37.0); MEAN PLATELET VOLUME 8.3 fL (7.2-11.7); MONO # 0.5 K/uL (0.0-0.8); NEUT # 16.7 K/uL (1.8-7.0); NRBC % 0.1 % (0.0-2.0); PLATELET COUNT 285 K/uL (130-400); RBC 3.35 Mil/uL (3.80-5.20); RED CELL DISTRIBUTION WIDTH 18.3 % (11.5-14.5)
[2018-01-25 07:02] LABS: ALB/GLOB RATIO 0.7 (1.0-2.1); ALBUMIN 2.6 g/dL (3.5-5.0); CALCIUM 10.2 mg/dl (8.6-10.4)
[2018-01-25 08:06] LABS: BANDS 1 % (0-2); EOSINOPHIL 1 % (0-4); LYMPHOCYTE 3 % (20-40); MONOCYTE 2 % (0-10); NEUTROPHIL 93 % (50-75); PLATELET ESTIMATE NORMAL (NORMAL); TOTAL CELLS COUNTED 100
[2018-01-25 08:19] LABS: ANISOCYTOSIS MODERATE; HYPOCHROMIC SLIGHT; POLYCHROMIC SLIGHT
[2018-01-25 08:20] LABS: LARGE PLATELETS PRESENT
--- NOTE | 2018-01-25 08:26 | CP.PCM.PN ---
Subjective - Date & Time of Evaluation Date of Evaluation: 01/25/18 Time of Evaluation: 08:17 - Subjective Subjective: Vascular Surgery Progress Note For Dr. Sinclair This 58F was seen and evaluated this AM at bedside no acute events overnight. She appears more awake this AM. She is requiring less pressor support. Dressing clean dry and intact. Objective - Vital Signs/Intake and Output Vital Signs (last 24 hours): Temp Pulse Resp BP Pulse Ox 98.5 F 68 5 L 100/27 L 100 01/25/18 04:00 01/25/18 07:30 01/25/18 07:30 01/25/18 07:03 01/25/18 07:30 Intake and Output: 01/25/18 01/25/18 06:59 18:59 Intake Total 1588.5 62.5 Output Total 0 0 Balance 1588.5 62.5 - Medications Medications: Current Medications Acetaminophen (Tylenol 325mg Tab) 650 mg PO Q6 PRN PRN Reason: Fever >100.4 F Acetaminophen (Tylenol 325mg Tab) 650 mg PO Q6 PRN PRN Reason: Pain, Mild (1-3) Bisacodyl (Dulcolax) 10 mg [place] ONCE PRN PRN Reason: Constipation Last Admin: 01/24/18 10:15 Dose: 10 mg Dextrose (Dextrose 50% Inj) 0 ml IV STAT PRN; Protocol PRN Reason: Hypoglycemia Protocol Dextrose (Glutose 15) 0 gm PO ONCE PRN; Protocol PRN Reason: Hypoglycemia Protocol Docusate Sodium (Colace) 100 mg PO BID [facility] Last Admin: 01/24/18 17:33 Dose: 100 mg Emtricitabine/Tenofovir (Truvada 200 Mg-300 Mg) 1 tab PO Q48H [facility] PRN Reason: Protocol Last Admin: 01/24/18 14:44 Dose: 1 tab Epoetin Alonso (Procrit) 10,000 unit IV MWF [facility] Last Admin: 01/24/18 17:15 Dose: 10,000 unit Glucagon (Glucagen Diagnostic Kit) 0 mg IM STAT PRN; Protocol PRN Reason: Hypoglycemia Protocol Hydrocortisone Sodium Succinate (Solu-Cortef) 100 mg IV Q8H [facility] Last Admin: 01/25/18 00:14 Dose: 100 mg Hydromorphone HCl (Dilaudid) 0.5 mg IVP Q6H PRN PRN Reason: Pain, moderate (4-7) Vancomycin/Sodium Chloride (Vancomycin 1 Gm/Ns 200 Ml) 1 gm in 200 mls @ 133 mls/hr IVPB MWF [facility] PRN Reason: Protocol Stop: 01/29/18 09:01 Last Admin: 01/24/18 10:23 Dose: 133 mls/hr Dextrose (Dextrose 5% In Water 1000 Ml) 1,000 mls @ 0 mls/hr IV .Q0M PRN; Protocol; Per Protocol PRN Reason: Hypoglycemia Protocol Norepinephrine Bitartrate 4 mg (/ Dextrose) 254 mls @ 15.24 mls/hr IV .[id number] PRN; Protocol; 4 MCG/MIN PRN Reason: TITRATE PER MD ORDER Last Titration: 01/25/18 05:35 Dose: 6 mcg/min, 22.86 mls/hr Meropenem 500 mg/ Sodium (Chloride) 100 mls @ 100 mls/hr IVPB Q12 [facility] PRN Reason: Protocol Last Admin: 01/24/18 21:34 Dose: 100 mls/hr Insulin Human Regular (Novolin R) 0 unit SC Q6 [facility] PRN Reason: Protocol Last Admin: 01/25/18 05:34 Dose: 10 u Midodrine (Proamatine) 5 mg PO TID [facility] Last Admin: 01/24/18 17:33 Dose: 5 mg Pantoprazole Sodium (Protonix Inj) 40 mg IVP DAILY [facility] Last Admin: 01/24/18 10:07 Dose: 40 mg Sevelamer Carbonate (Renvela) 800 mg PO TID [facility] Last Admin: 01/24/18 17:33 Dose: 800 mg Simethicone (Mylicon Chew Tab) 80 mg PO QID [facility] Last Admin: 01/24/18 21:35 Dose: 80 mg Vitamin B Complex/Vit C/Folic Acid (Nephro-Carlos) 1 tab PO DAILY [facility] Last Admin: 01/24/18 10:30 Dose: 1 tab - Labs Labs: 01/25/18 06:32 01/25/18 06:33 PT 11.1 SECONDS (9.7-12.2) 01/22/18 12:20 INR 1.0 01/22/18 12:20 APTT 27 SECONDS (21-34) 01/22/18 12:20 - Constitutional Appears: Toxic - Head Exam Head Exam: ATRAUMATIC - Eye Exam Eye Exam: EOMI - Respiratory Exam Respiratory Exam: NORMAL BREATHING PATTERN - Cardiovascular Exam Cardiovascular Exam: REGULAR RHYTHM - GI/Abdominal Exam GI & Abdominal Exam: Soft - Extremities Exam Additional comments: Left lower extremity dressing clean dry and intact and in place - Neurological Exam Neurological Exam: Awake. absent: Alert Assessment and Plan - Assessment and Plan (Free Text) Assessment: POD 2 s/p AKA revision L leg - Continue management per ICU team - Recommend palliative care DW Dr. Yahir Palacios PGY2
--- NOTE | 2018-01-25 08:28 | CP.PCM.PN ---
Subjective - Date & Time of Evaluation Date of Evaluation: 01/25/18 Time of Evaluation: 08:28 - Subjective Subjective: seen and examined by me this morning Lying on bed moaning. Lethargic No sob on levophed has right arm edema,positive radial pulse with doppler Objective - Vital Signs/Intake and Output Vital Signs (last 24 hours): Temp Pulse Resp BP Pulse Ox 98.5 F 68 5 L 100/27 L 100 01/25/18 04:00 01/25/18 07:30 01/25/18 07:30 01/25/18 07:03 01/25/18 07:30 Intake and Output: 01/25/18 01/25/18 06:59 18:59 Intake Total 1588.5 62.5 Output Total 0 0 Balance 1588.5 62.5 - Medications Medications: Current Medications Acetaminophen (Tylenol 325mg Tab) 650 mg PO Q6 PRN PRN Reason: Fever >100.4 F Acetaminophen (Tylenol 325mg Tab) 650 mg PO Q6 PRN PRN Reason: Pain, Mild (1-3) Bisacodyl (Dulcolax) 10 mg [place] ONCE PRN PRN Reason: Constipation Last Admin: 01/24/18 10:15 Dose: 10 mg Dextrose (Dextrose 50% Inj) 0 ml IV STAT PRN; Protocol PRN Reason: Hypoglycemia Protocol Dextrose (Glutose 15) 0 gm PO ONCE PRN; Protocol PRN Reason: Hypoglycemia Protocol Docusate Sodium (Colace) 100 mg PO BID [facility] Last Admin: 01/24/18 17:33 Dose: 100 mg Emtricitabine/Tenofovir (Truvada 200 Mg-300 Mg) 1 tab PO Q48H [facility] PRN Reason: Protocol Last Admin: 01/24/18 14:44 Dose: 1 tab Epoetin Alonso (Procrit) 10,000 unit IV MWF [facility] Last Admin: 01/24/18 17:15 Dose: 10,000 unit Glucagon (Glucagen Diagnostic Kit) 0 mg IM STAT PRN; Protocol PRN Reason: Hypoglycemia Protocol Hydrocortisone Sodium Succinate (Solu-Cortef) 100 mg IV Q8H [facility] Last Admin: 01/25/18 00:14 Dose: 100 mg Hydromorphone HCl (Dilaudid) 0.5 mg IVP Q6H PRN PRN Reason: Pain, moderate (4-7) Vancomycin/Sodium Chloride (Vancomycin 1 Gm/Ns 200 Ml) 1 gm in 200 mls @ 133 mls/hr IVPB MWF [facility] PRN Reason: Protocol Stop: 01/29/18 09:01 Last Admin: 01/24/18 10:23 Dose: 133 mls/hr Dextrose (Dextrose 5% In Water 1000 Ml) 1,000 mls @ 0 mls/hr IV .Q0M PRN; Protocol; Per Protocol PRN Reason: Hypoglycemia Protocol Norepinephrine Bitartrate 4 mg (/ Dextrose) 254 mls @ 15.24 mls/hr IV .[id number] PRN; Protocol; 4 MCG/MIN PRN Reason: TITRATE PER MD ORDER Last Titration: 01/25/18 05:35 Dose: 6 mcg/min, 22.86 mls/hr Meropenem 500 mg/ Sodium (Chloride) 100 mls @ 100 mls/hr IVPB Q12 [facility] PRN Reason: Protocol Last Admin: 01/24/18 21:34 Dose: 100 mls/hr Insulin Human Regular (Novolin R) 0 unit SC Q6 [facility] PRN Reason: Protocol Last Admin: 01/25/18 05:34 Dose: 10 u Midodrine (Proamatine) 5 mg PO TID [facility] Last Admin: 01/24/18 17:33 Dose: 5 mg Pantoprazole Sodium (Protonix Inj) 40 mg IVP DAILY [facility] Last Admin: 01/24/18 10:07 Dose: 40 mg Sevelamer Carbonate (Renvela) 800 mg PO TID [facility] Last Admin: 01/24/18 17:33 Dose: 800 mg Simethicone (Mylicon Chew Tab) 80 mg PO QID [facility] Last Admin: 01/24/18 21:35 Dose: 80 mg Vitamin B Complex/Vit C/Folic Acid (Nephro-Carlos) 1 tab PO DAILY [facility] Last Admin: 01/24/18 10:30 Dose: 1 tab - Labs Labs: 01/25/18 06:32 01/25/18 06:33 PT 11.1 SECONDS (9.7-12.2) 01/22/18 12:20 INR 1.0 01/22/18 12:20 APTT 27 SECONDS (21-34) 01/22/18 12:20 Assessment and Plan - Assessment and Plan (Free Text) Plan: 1. Sepsis Her sepsis is likely due to left aka stump infection S/P Left AKA (on 01/01/18) She went for further amputation of infected stump on 01/23/[address] Sinclair Wound culture positive for pseudomonoas and Enterobactor sensitive to merrem blood culture x2 done on 01/22 positive for gram positive cocci sensitivity noted.we will continue vanco continue Vanco on MWF and Merapenem as per ID.s/p Amikacin d/w Dr mireles.we will do a random vanco level (L Femur XR 01/22: Status post [id number] amputation, well-circumscribed round osteolytic area in the distal femur proximal to the amputation is nonspecific, the differential considerations include Addi's abscess, benign and malignant neoplasm. MRI of the femur without and with intravenous contrast would be helpful for further characterization. see full report Planning for MRI with and w/o contrast to be arranged by Nephrology once pt more stable 2. Hypotension-Remains on levophed continue midodrine 3.Anemia s/p blood transfusion monitor Hb 4. Hx of Systolic CHF-stable Imdur 60mg PO qd and Metroprolol 25mg PO BID on hold 5. End stage renal disease on dialysis not getting dialysis today due to low blood pressure d/w DR Machado who spoke to renal ESRD on HD: MWF schedule Nephrology consulted- Dr. Dominguez on nephrovite and Renvela 6.HTN (hypertension)--> currently hypotensive 7. Diabetes FS with insulin coverage 8.HIV (human immunodeficiency virus infection) Continue home medication: Truvada 1tab PO daily, Issentriss 400mg PO BID (CD4 count 143 and Viral load not detected(12/05/17)) 9 Hx HLD 10. right arm edema Doppler - DVT negative 11. Prophylactic measure DVT: Hold chemical anticoagulation Full Code Protonix for Gi prophy Her prognosis poor.I spoke to her son Dilip yesterday.He is in denial and wants us to try our best to make her better. He is very positive and he believes that she will come out like last time. Patient's son Dilip Zhong is unofficial health proxy. His phone number to contact [phone]
[2018-01-25] MEDS: Multivitamin Vitamin B Complex (Nephro-Vite) Tab PO SCH (09:48)
[2018-01-25] MEDS: Simethicone 80 mg Chewtab PO SCH ×4 (09:48→21:31)
[2018-01-25] MEDS: Meropenem 500 MG in Sodium Chloride 0.9% 100 ML IVPB SCH ×2 (09:48→21:30)
[2018-01-25] MEDS: HYDROmorphone 0.5 mg/0.5 ml ISec IVP PRN ×2 (09:57→19:04)
--- NOTE | 2018-01-25 13:12 | CP.CCUPN ---
CCU Subjective - Physician Review Events Since Last Encounter (Free Text): 01/25/18 13:10 patient seen and examined in the intensive care unit. POD 2 s/p AKA revision L leg Remains on Levophed for hypotension DVT negative right arm Afebrile Patient is moaning CCU Objective - Vital Signs / Intake & Output Vital Signs (Last 4 hours): Vital Signs BP 01/25/18 09:49 101/47 L Intake and Output (Last 8hrs): Intake & Output 01/24/18 01/25/18 01/25/18 22:59 06:59 14:59 Intake Total 1125.0 1083.5 129.5 Output Total 0 0 0 Balance 1125.0 1083.5 129.5 Weight 170 lb 4.8 oz Intake: IV 250 441 67 Intake, IV Amount 400.0 262.5 22.5 Right Shoulder 100 Right Subclavian 300.0 262.5 22.5 Tube Feeding 275 320 40 Other 200 60 Output: Urine 0 0 0 Urine, Voided 0 0 0 Stool 0 0 0 - Physical Exam Head: Positive for: Atraumatic, Normocephalic Pupils: Positive for: PERRL Extroacular Muscles: Positive for: EOMI Conjunctiva: Positive for: Normal Mouth: Positive for: Dry Respiratory/Chest: Positive for: Clear to Auscultation Cardiovascular: Positive for: Regular Rate and Rhythm Abdomen: Positive for: Normal Bowel Sounds. Negative for: Tenderness, Distention Upper Extremity: Positive for: Other (left AVF - no thrill noted ) Lower Extremity: Positive for: Other Neurological: Positive for: GCS=15, CN II-XII Intact Skin: Positive for: Warm, Dry Psychiatric: Positive for: Alert, Lethargic - Medications Active Medications: Active Medications Generic Name Dose Route Start Last Admin Trade Name Freq PRN Reason Stop Dose Admin Acetaminophen 650 mg 01/22/18 14:22 01/25/18 09:48 Tylenol 325mg Tab PO 650 mg Q6 PRN Administration Fever >100.4 F Acetaminophen 650 mg 01/22/18 14:38 Tylenol 325mg Tab PO Q6 PRN Pain, Mild (1-3) Bisacodyl 10 mg 01/22/18 14:31 01/24/18 10:15 Dulcolax DE 10 mg ONCE PRN Administration Constipation Dextrose 0 ml 01/22/18 16:27 Dextrose 50% Inj IV STAT PRN Hypoglycemia Protocol Protocol Dextrose 0 gm 01/22/18 16:27 Glutose 15 PO ONCE PRN Hypoglycemia Protocol Protocol Docusate Sodium 100 mg 01/22/18 18:00 01/25/18 09:48 Colace PO 100 mg BID KATARINA Administration Emtricitabine/Tenofovir 1 tab 01/22/18 14:30 01/24/18 14:44 Truvada 200 Mg-300 Mg PO 1 tab Q48H KATARINA Administration Protocol Epoetin Alonso 10,000 unit 01/24/18 09:00 01/24/18 17:15 Procrit IV 10,000 unit [facility] KATARINA Administration Glucagon 0 mg 01/22/18 16:27 Glucagen Diagnostic Kit IM STAT PRN Hypoglycemia Protocol Protocol Hydrocortisone Sodium Succinate 100 mg 01/25/18 10:00 01/25/18 09:47 Solu-Cortef IV 100 mg Q12H KATARINA Administration Hydromorphone HCl 0.5 mg 01/24/18 08:47 01/25/18 09:57 Dilaudid IVP 0.5 mg Q6H PRN Administration Pain, moderate (4-7) Vancomycin/Sodium Chloride 1 gm in 200 mls @ 133 mls/hr 01/24/18 09:00 10:23 Vancomycin 1 Gm/Ns 200 Ml IVPB 01/29/18 09:01 133 mls/hr F KATARINA Administration Protocol Dextrose 1,000 mls @ 0 mls/hr 01/22/18 16:27 Dextrose 5% In Water 1000 Ml IV .Q0M PRN Hypoglycemia Protocol Protocol Per Protocol Meropenem 500 mg/ Sodium 100 mls @ 100 mls/hr 01/23/18 10:00 01/25/18 09:48 Chloride IVPB 100 mls/hr Q12 KATARINA Administration Protocol Norepinephrine Bitartrate 4 mg 250 mls @ 15 mls/hr 01/25/18 09:30 / Sodium Chloride IV .[id number] PRN TITRATE PER MD ORDER Protocol 4 MCG/MIN Insulin Human Regular 0 unit 01/24/18 12:00 01/25/18 05:34 Novolin R SC 10 u Q6 KATARINA Administration Protocol Midodrine 5 mg 01/24/18 10:00 01/25/18 09:48 Proamatine PO 5 mg TID KATARINA Administration Pantoprazole Sodium 40 mg 01/23/18 10:00 01/25/18 09:47 Protonix Inj IVP 40 mg DAILY KATARINA Administration Sevelamer Carbonate 800 mg 01/22/18 18:00 01/25/18 09:48 Renvela PO 800 mg TID KATARINA Administration Simethicone 80 mg 01/22/18 18:00 01/25/18 09:48 Mylicon Chew Tab PO 80 mg QID KATARINA Administration Vitamin B Complex/Vit C/Folic Acid 1 tab 01/23/18 10:00 01/25/18 09:48 Nephro-Carlos PO 1 tab DAILY KATARINA Administration - Patient Studies Lab Studies: Microbiology Studies 01/22/18 11:45 S.aureus & Coag-Neg Staph PNA FISH - Final Blood-Venous Blood Culture - Final Coagulase Neg Staphylococcus Gram Stain - Final 01/23/18 11:00 Gram Stain - Final Thigh - Left Wound Culture - Final Enterobacter Cloacae Ssp Cloac 01/22/18 12:15 Blood Culture - Preliminary Blood-Venous Staphylococcus Sp Coag Neg Gram Stain - Final Lab Studies 01/25/18 01/25/18 01/25/18 Range/Units 12:38 06:33 06:32 WBC 18.0 H (4.8-10.8) K/uL RBC 3.35 L (3.80-5.20) Mil/uL Hgb 9.7 L (11.0-16.0) g/dL Hct 30.1 L (34.0-47.0) % MCV 89.8 (81.0-99.0) fL MCH 29.0 (27.0-31.0) pg MCHC 32.3 L (33.0-37.0) g/dL RDW 18.3 H (11.5-14.5) % Plt Count 285 (130-400) K/uL MPV 8.3 (7.2-11.7) fL Neut % (Auto) 93.0 H (50.0-75.0) % Lymph % (Auto) 2.8 L (20.0-40.0) % [place] % (Auto) 3.0 (0.0-10.0) % Eos % (Auto) 0.0 (0.0-4.0) % Baso % (Auto) 1.2 (0.0-2.0) % Neut # (Auto) 16.7 H (1.8-7.0) K/uL Lymph # (Auto) 0.5 L (1.0-4.3) K/uL [place] # (Auto) 0.5 (0.0-0.8) K/uL Eos # (Auto) 0.0 (0.0-0.7) K/uL Baso # (Auto) 0.2 (0.0-0.2) K/uL Neutrophils % (Manual) 93 H (50-75) % Band Neutrophils % 1 (0-2) % Lymphocytes % (Manual) 3 L (20-40) % Monocytes % (Manual) 2 (0-10) % Eosinophils % (Manual) 1 (0-4) % Platelet Estimate Normal (NORMAL) Large Platelets Present Polychromasia Slight Hypochromasia (manual) Slight Anisocytosis (manual) Moderate pO2 (30-55) mm/Hg VBG pH (7.32-7.43) VBG pCO2 (40-60) mmHg VBG HCO3 mmol/L VBG Total CO2 (22-28) mmol/L VBG O2 Sat (Calc) (40-65) % VBG Base Excess (0.0-2.0) mmol/L VBG Potassium (3.6-5.2) mmol/L Sodium 132 (132-148) mmol/l Chloride 96 L (98-107) mmol/L Glucose (65-105) mg/dl Lactate (0.7-2.1) mmol/L Liter Flow Crit Value Called To Crit Value Called By Crit Value Read Back Blood Gas Notified Time Potassium 4.8 (3.6-5.2) mmol/L Carbon Dioxide 26 (22-30) mmol/L Anion Gap 15 (10-20) BUN 62 H (7-17) mg/dL Creatinine 5.4 H (0.7-1.2) mg/dL Est GFR ( Amer) 10 Est GFR (Non-Af Amer) 8 POC Glucose (mg/dL) 377 H (65-110) mg/dL Random Glucose 332 H (65-105) mg/dL Calcium 10.2 (8.6-10.4) mg/dl Phosphorus 4.1 (2.5-4.5) mg/dL Magnesium 2.6 H (1.6-2.3) mg/dL Total Bilirubin 0.6 (0.2-1.3) mg/dL AST 35 (14-36) U/L ALT 11 (9-52) U/L Alkaline Phosphatase 112 (38-126) U/L Total Protein 6.4 (6.3-8.3) g/dL Albumin 2.6 L D (3.5-5.0) g/dL Globulin 3.8 (2.2-3.9) gm/dL Albumin/Globulin Ratio 0.7 L (1.0-2.1) Venous Blood Potassium (3.6-5.2) mmol/L 01/25/18 01/25/18 01/24/18 Range/Units 05:33 05:20 23:57 WBC (4.8-10.8) K/uL RBC (3.80-5.20) Mil/uL Hgb (11.0-16.0) g/dL Hct (34.0-47.0) % MCV (81.0-99.0) fL MCH (27.0-31.0) pg MCHC (33.0-37.0) g/dL RDW (11.5-14.5) % Plt Count (130-400) K/uL MPV (7.2-11.7) fL Neut % (Auto) (50.0-75.0) % Lymph % (Auto) (20.0-40.0) % [place] % (Auto) (0.0-10.0) % Eos % (Auto) (0.0-4.0) % Baso % (Auto) (0.0-2.0) % Neut # (Auto) (1.8-7.0) K/uL Lymph # (Auto) (1.0-4.3) K/uL [place] # (Auto) (0.0-0.8) K/uL Eos # (Auto) (0.0-0.7) K/uL Baso # (Auto) (0.0-0.2) K/uL Neutrophils % (Manual) (50-75) % Band Neutrophils % (0-2) % Lymphocytes % (Manual) (20-40) % Monocytes % (Manual) (0-10) % Eosinophils % (Manual) (0-4) % Platelet Estimate (NORMAL) Large Platelets Polychromasia Hypochromasia (manual) Anisocytosis (manual) pO2 36 (30-55) mm/Hg VBG pH 7.37 (7.32-7.43) VBG pCO2 48 (40-60) mmHg VBG HCO3 25.4 mmol/L VBG Total CO2 29.2 H (22-28) mmol/L VBG O2 Sat (Calc) 74.0 H (40-65) % VBG Base Excess 1.7 (0.0-2.0) mmol/L VBG Potassium 4.2 (3.6-5.2) mmol/L Sodium 132.0 (132-148) mmol/l Chloride 98.0 (98-107) mmol/L Glucose 438 H* (65-105) mg/dl Lactate 1.1 (0.7-2.1) mmol/L Liter Flow 3.0 Crit Value Called To Trang icu clerk Crit Value Called By Justyna torres rt Crit Value Read Back Y Blood Gas Notified Time 555 Potassium (3.6-5.2) mmol/L Carbon Dioxide (22-30) mmol/L Anion Gap (10-20) BUN (7-17) mg/dL Creatinine (0.7-1.2) mg/dL Est GFR ( Amer) Est GFR (Non-Af Amer) POC Glucose (mg/dL) 357 H 308 H (65-110) mg/dL Random Glucose (65-105) mg/dL Calcium (8.6-10.4) mg/dl Phosphorus (2.5-4.5) mg/dL Magnesium (1.6-2.3) mg/dL Total Bilirubin (0.2-1.3) mg/dL AST (14-36) U/L ALT (9-52) U/L Alkaline Phosphatase (38-126) U/L Total Protein (6.3-8.3) g/dL Albumin (3.5-5.0) g/dL Globulin (2.2-3.9) gm/dL Albumin/Globulin Ratio (1.0-2.1) Venous Blood Potassium 4.2 (3.6-5.2) mmol/L 01/24/18 Range/Units 17:26 WBC (4.8-10.8) K/uL RBC (3.80-5.20) Mil/uL Hgb (11.0-16.0) g/dL Hct (34.0-47.0) % MCV (81.0-99.0) fL MCH (27.0-31.0) pg MCHC (33.0-37.0) g/dL RDW (11.5-14.5) % Plt Count (130-400) K/uL MPV (7.2-11.7) fL Neut % (Auto) (50.0-75.0) % Lymph % (Auto) (20.0-40.0) % [place] % (Auto) (0.0-10.0) % Eos % (Auto) (0.0-4.0) % Baso % (Auto) (0.0-2.0) % Neut # (Auto) (1.8-7.0) K/uL Lymph # (Auto) (1.0-4.3) K/uL [place] # (Auto) (0.0-0.8) K/uL Eos # (Auto) (0.0-0.7) K/uL Baso # (Auto) (0.0-0.2) K/uL Neutrophils % (Manual) (50-75) % Band Neutrophils % (0-2) % Lymphocytes % (Manual) (20-40) % Monocytes % (Manual) (0-10) % Eosinophils % (Manual) (0-4) % Platelet Estimate (NORMAL) Large Platelets Polychromasia Hypochromasia (manual) Anisocytosis (manual) pO2 (30-55) mm/Hg VBG pH (7.32-7.43) VBG pCO2 (40-60) mmHg VBG HCO3 mmol/L VBG Total CO2 (22-28) mmol/L VBG O2 Sat (Calc) (40-65) % VBG Base Excess (0.0-2.0) mmol/L VBG Potassium (3.6-5.2) mmol/L Sodium (132-148) mmol/l Chloride (98-107) mmol/L Glucose (65-105) mg/dl Lactate (0.7-2.1) mmol/L Liter Flow Crit Value Called To Crit Value Called By Crit Value Read Back Blood Gas Notified Time Potassium (3.6-5.2) mmol/L Carbon Dioxide (22-30) mmol/L Anion Gap (10-20) BUN (7-17) mg/dL Creatinine (0.7-1.2) mg/dL Est GFR ( Amer) Est GFR (Non-Af Amer) POC Glucose (mg/dL) 232 H (65-110) mg/dL Random Glucose (65-105) mg/dL Calcium (8.6-10.4) mg/dl Phosphorus (2.5-4.5) mg/dL Magnesium (1.6-2.3) mg/dL Total Bilirubin (0.2-1.3) mg/dL AST (14-36) U/L ALT (9-52) U/L Alkaline Phosphatase (38-126) U/L Total Protein (6.3-8.3) g/dL Albumin (3.5-5.0) g/dL Globulin (2.2-3.9) gm/dL Albumin/Globulin Ratio (1.0-2.1) Venous Blood Potassium (3.6-5.2) mmol/L Laboratory Results - last 24 hr 01/24/18 01/24/18 01/25/18 17:26 23:57 05:20 WBC RBC Hgb Hct MCV MCH MCHC RDW Plt Count MPV Neut % (Auto) Lymph % (Auto) [place] % (Auto) Eos % (Auto) Baso % (Auto) Neut # (Auto) Lymph # (Auto) [place] # (Auto) Eos # (Auto) Baso # (Auto) Neutrophils % (Manual) Band Neutrophils % Lymphocytes % (Manual) Monocytes % (Manual) Eosinophils % (Manual) Platelet Estimate Large Platelets Polychromasia Hypochromasia (manual) Anisocytosis (manual) pO2 VBG pH VBG pCO2 VBG HCO3 VBG Total CO2 VBG O2 Sat (Calc) VBG Base Excess VBG Potassium Sodium Chloride Glucose Lactate Liter Flow Crit Value Called To Crit Value Called By Crit Value Read Back Blood Gas Notified Time Potassium Carbon Dioxide Anion Gap BUN Creatinine Est GFR ( Amer) Est GFR (Non-Af Amer) POC Glucose (mg/dL) 232 H 308 H 357 H Random Glucose Calcium Phosphorus Magnesium Total Bilirubin AST ALT Alkaline Phosphatase Total Protein Albumin Globulin Albumin/Globulin Ratio Venous Blood Potassium 01/25/18 01/25/18 01/25/18 05:33 06:32 06:33 WBC 18.0 H RBC 3.35 L Hgb 9.7 L Hct 30.1 L MCV 89.8 MCH 29.0 MCHC 32.3 L RDW 18.3 H Plt Count 285 MPV 8.3 Neut % (Auto) 93.0 H Lymph % (Auto) 2.8 L [place] % (Auto) 3.0 Eos % (Auto) 0.0 Baso % (Auto) 1.2 Neut # (Auto) 16.7 H Lymph # (Auto) 0.5 L [place] # (Auto) 0.5 Eos # (Auto) 0.0 Baso # (Auto) 0.2 Neutrophils % (Manual) 93 H Band Neutrophils % 1 Lymphocytes % (Manual) 3 L Monocytes % (Manual) 2 Eosinophils % (Manual) 1 Platelet Estimate Normal Large Platelets Present Polychromasia Slight Hypochromasia (manual) Slight Anisocytosis (manual) Moderate pO2 36 VBG pH 7.37 VBG pCO2 48 VBG HCO3 25.4 VBG Total CO2 29.2 H VBG O2 Sat (Calc) 74.0 H VBG Base Excess 1.7 VBG Potassium 4.2 Sodium 132.0 132 Chloride 98.0 96 L Glucose 438 H* Lactate 1.1 Liter Flow 3.0 Crit Value Called To Trang icu clerk Crit Value Called By Justyna torres rt Crit Value Read Back Y Blood Gas Notified Time 555 Potassium 4.8 Carbon Dioxide 26 Anion Gap 15 BUN 62 H Creatinine 5.4 H Est GFR ( Amer) 10 Est GFR (Non-Af Amer) 8 POC Glucose (mg/dL) Random Glucose 332 H Calcium 10.2 Phosphorus 4.1 Magnesium 2.6 H Total Bilirubin 0.6 AST 35 ALT 11 Alkaline Phosphatase 112 Total Protein 6.4 Albumin 2.6 L D Globulin 3.8 Albumin/Globulin Ratio 0.7 L Venous Blood Potassium 4.2 01/25/18 12:38 WBC RBC Hgb Hct MCV MCH MCHC RDW Plt Count MPV Neut % (Auto) Lymph % (Auto) [place] % (Auto) Eos % (Auto) Baso % (Auto) Neut # (Auto) Lymph # (Auto) [place] # (Auto) Eos # (Auto) Baso # (Auto) Neutrophils % (Manual) Band Neutrophils % Lymphocytes % (Manual) Monocytes % (Manual) Eosinophils % (Manual) Platelet Estimate Large Platelets Polychromasia Hypochromasia (manual) Anisocytosis (manual) pO2 VBG pH VBG pCO2 VBG HCO3 VBG Total CO2 VBG O2 Sat (Calc) VBG Base Excess VBG Potassium Sodium Chloride Glucose Lactate Liter Flow Crit Value Called To Crit Value Called By Crit Value Read Back Blood Gas Notified Time Potassium Carbon Dioxide Anion Gap BUN Creatinine Est GFR ( Amer) Est GFR (Non-Af Amer) POC Glucose (mg/dL) 377 H Random Glucose Calcium Phosphorus Magnesium Total Bilirubin AST ALT Alkaline Phosphatase Total Protein Albumin Globulin Albumin/Globulin Ratio Venous Blood Potassium Fingerstick Blood Sugar Results: 357 Review of Systems - Review of Systems Systems not reviewed;Unavailable: Uncooperative Critical Care Progress Note - Nutrition Nutrition: Nutrition Category Date Time Status NPO Diet [DIET] Diets 01/23/18 Breakfast Active Assessment/Plan (1) Post-op pain Current Visit: No Status: Acute Comment: POD 2 s/p AKA revision L leg continue IV antibiotics Patient on Levophed and dialysis is on hold Case discussed with nephrology (2) End stage renal disease Current Visit: Yes Status: Acute (3) Hypotension Current Visit: Yes Status: Acute Comment: taper off levophed as tolerated
--- NOTE | 2018-01-25 16:34 | CP.PCM.PN ---
Subjective - Date & Time of Evaluation Date of Evaluation: 01/25/18 Time of Evaluation: 16:29 - Subjective Subjective: renal follow up note no events overnight vss heent normal op moist no jvd s1s2 present no resp distress abd soft awake oriented X0 ESRD/ams/shock/dm-2/anemia/dry gangrene hd mwf opt however she is hypotensive on pressors hence dialysis on hold no signs of volume overload lytes ok bp ok abx per primary team pressors management per primary team Objective - Vital Signs/Intake and Output Vital Signs (last 24 hours): Temp Pulse Resp BP Pulse Ox 98.5 F 68 5 L 101/47 L 100 01/25/18 04:00 01/25/18 07:30 01/25/18 07:30 01/25/18 09:49 01/25/18 07:30 Intake and Output: 01/25/18 01/25/18 06:59 18:59 Intake Total 1588.5 129.5 Output Total 0 0 Balance 1588.5 129.5 - Medications Medications: Current Medications Acetaminophen (Tylenol 325mg Tab) 650 mg PO Q6 PRN PRN Reason: Fever >100.4 F Last Admin: 01/25/18 09:48 Dose: 650 mg Acetaminophen (Tylenol 325mg Tab) 650 mg PO Q6 PRN PRN Reason: Pain, Mild (1-3) Bisacodyl (Dulcolax) 10 mg HI ONCE PRN PRN Reason: Constipation Last Admin: 01/24/18 10:15 Dose: 10 mg Dextrose (Dextrose 50% Inj) 0 ml IV STAT PRN; Protocol PRN Reason: Hypoglycemia Protocol Dextrose (Glutose 15) 0 gm PO ONCE PRN; Protocol PRN Reason: Hypoglycemia Protocol Docusate Sodium (Colace) 100 mg PO BID [facility] Last Admin: 01/25/18 09:48 Dose: 100 mg Emtricitabine/Tenofovir (Truvada 200 Mg-300 Mg) 1 tab PO Q48H KATARINA PRN Reason: Protocol Last Admin: 01/24/18 14:44 Dose: 1 tab Epoetin Alonso (Procrit) 10,000 unit IV MWF [facility] Last Admin: 01/24/18 17:15 Dose: 10,000 unit Glucagon (Glucagen Diagnostic Kit) 0 mg IM STAT PRN; Protocol PRN Reason: Hypoglycemia Protocol Hydrocortisone Sodium Succinate (Solu-Cortef) 100 mg IV Q12H [facility] Last Admin: 01/25/18 09:47 Dose: 100 mg Hydromorphone HCl (Dilaudid) 0.5 mg IVP Q6H PRN PRN Reason: Pain, moderate (4-7) Last Admin: 01/25/18 09:57 Dose: 0.5 mg Vancomycin/Sodium Chloride (Vancomycin 1 Gm/Ns 200 Ml) 1 gm in 200 mls @ 133 mls/hr IVPB MWF [facility] PRN Reason: Protocol Stop: 01/29/18 09:01 Last Admin: 01/24/18 10:23 Dose: 133 mls/hr Dextrose (Dextrose 5% In Water 1000 Ml) 1,000 mls @ 0 mls/hr IV .Q0M PRN; Protocol; Per Protocol PRN Reason: Hypoglycemia Protocol Meropenem 500 mg/ Sodium (Chloride) 100 mls @ 100 mls/hr IVPB Q12 KATARINA PRN Reason: Protocol Last Admin: 01/25/18 09:48 Dose: 100 mls/hr Norepinephrine Bitartrate 4 mg (/ Sodium Chloride) 250 mls @ 15 mls/hr IV .[id number] PRN; Protocol; 4 MCG/MIN PRN Reason: TITRATE PER MD ORDER Insulin Human Regular (Novolin R) 0 unit SC Q6 KATARINA PRN Reason: Protocol Last Admin: 01/25/18 12:46 Dose: 8 u Midodrine (Proamatine) 5 mg PO TID [facility] Last Admin: 01/25/18 13:44 Dose: 5 mg Pantoprazole Sodium (Protonix Inj) 40 mg IVP DAILY [facility] Last Admin: 01/25/18 09:47 Dose: 40 mg Sevelamer Carbonate (Renvela) 800 mg PO TID [facility] Last Admin: 01/25/18 13:44 Dose: 800 mg Simethicone (Mylicon Chew Tab) 80 mg PO QID [facility] Last Admin: 01/25/18 13:48 Dose: 80 mg Vitamin B Complex/Vit C/Folic Acid (Nephro-Carlos) 1 tab PO DAILY [facility] Last Admin: 01/25/18 09:48 Dose: 1 tab - Labs Labs: 01/25/18 06:32 01/25/18 06:33 PT 11.1 SECONDS (9.7-12.2) 01/22/18 12:20 INR 1.0 01/22/18 12:20 APTT 27 SECONDS (21-34) 01/22/18 12:20
--- NOTE | 2018-01-25 23:54 | CP.PCM.PN ---
Subjective - Date & Time of Evaluation Date of Evaluation: 01/25/18 Time of Evaluation: 18:20 Objective - Vital Signs/Intake and Output Vital Signs (last 24 hours): Temp Pulse Resp BP Pulse Ox 98.6 F 63 9 L 135/31 L 100 01/25/18 16:00 01/25/18 18:33 01/25/18 18:33 01/25/18 18:33 01/25/18 18:33 Intake and Output: 01/25/18 01/26/18 18:59 06:59 Intake Total 726.3 8 Output Total 0 Balance 726.3 8 - Medications Medications: Current Medications Acetaminophen (Tylenol 325mg Tab) 650 mg PO Q6 PRN PRN Reason: Fever >100.4 F Last Admin: 01/25/18 09:48 Dose: 650 mg Acetaminophen (Tylenol 325mg Tab) 650 mg PO Q6 PRN PRN Reason: Pain, Mild (1-3) Bisacodyl (Dulcolax) 10 mg NV ONCE PRN PRN Reason: Constipation Last Admin: 01/24/18 10:15 Dose: 10 mg Dextrose (Dextrose 50% Inj) 0 ml IV STAT PRN; Protocol PRN Reason: Hypoglycemia Protocol Dextrose (Glutose 15) 0 gm PO ONCE PRN; Protocol PRN Reason: Hypoglycemia Protocol Docusate Sodium (Colace) 100 mg PO BID [facility] Last Admin: 01/25/18 19:06 Dose: 100 mg Emtricitabine/Tenofovir (Truvada 200 Mg-300 Mg) 1 tab PO Q48H KATARINA PRN Reason: Protocol Last Admin: 01/24/18 14:44 Dose: 1 tab Epoetin Alonso (Procrit) 10,000 unit IV MWF [facility] Last Admin: 01/24/18 17:15 Dose: 10,000 unit Glucagon (Glucagen Diagnostic Kit) 0 mg IM STAT PRN; Protocol PRN Reason: Hypoglycemia Protocol Hydrocortisone Sodium Succinate (Solu-Cortef) 100 mg IV Q12H [facility] Last Admin: 01/25/18 21:30 Dose: 100 mg Hydromorphone HCl (Dilaudid) 0.5 mg IVP Q6H PRN PRN Reason: Pain, moderate (4-7) Last Admin: 01/25/18 19:04 Dose: 0.5 mg Vancomycin/Sodium Chloride (Vancomycin 1 Gm/Ns 200 Ml) 1 gm in 200 mls @ 133 mls/hr IVPB MWF [facility]ATARINA PRN Reason: Protocol Stop: 01/29/18 09:01 Last Admin: 01/24/18 10:23 Dose: 133 mls/hr Meropenem 500 mg/ Sodium (Chloride) 100 mls @ 100 mls/hr IVPB Q12 KATARINA PRN Reason: Protocol Last Admin: 01/25/18 21:30 Dose: 100 mls/hr Norepinephrine Bitartrate 4 mg (/ Sodium Chloride) 250 mls @ 15 mls/hr IV .[id number] PRN; Protocol; 4 MCG/MIN PRN Reason: TITRATE PER MD ORDER Last Titration: 01/25/18 19:00 Dose: 6 mcg/min, 22.5 mls/hr Insulin Human Regular (Novolin R) 0 unit SC Q6 KATARINA PRN Reason: Protocol Last Admin: 01/25/18 18:05 Dose: 12 u Midodrine (Proamatine) 5 mg PO TID [facility] Last Admin: 01/25/18 19:06 Dose: 5 mg Pantoprazole Sodium (Protonix Inj) 40 mg IVP DAILY [facility] Last Admin: 01/25/18 09:47 Dose: 40 mg Sevelamer Carbonate (Renvela) 800 mg PO TID [facility] Last Admin: 01/25/18 19:06 Dose: 800 mg Simethicone (Mylicon Chew Tab) 80 mg PO QID [facility] Last Admin: 01/25/18 21:31 Dose: 80 mg Vitamin B Complex/Vit C/Folic Acid (Nephro-Carlos) 1 tab PO DAILY [facility] Last Admin: 01/25/18 09:48 Dose: 1 tab - Labs Labs: 01/25/18 06:32 01/25/18 06:33 PT 11.1 SECONDS (9.7-12.2) 01/22/18 12:20 INR 1.0 01/22/18 12:20 APTT 27 SECONDS (21-34) 01/22/18 12:20
[2018-01-26] MEDS: (Novolin R) Insulin Human Regular 100 units/ml vial SC SCH ×4 (00:56→18:20)
[2018-01-26] MEDS: HYDROmorphone 0.5 mg/0.5 ml ISec IVP PRN ×2 (05:41→20:05)
--- NOTE | 2018-01-26 06:31 | CP.PCM.PN ---
Subjective - Date & Time of Evaluation Date of Evaluation: 01/26/18 Time of Evaluation: 06:30 - Subjective Subjective: Surgery Pt seen and examined. Pt is lethargic. Response to pain. Dressing C/D/I. Objective - Vital Signs/Intake and Output Vital Signs (last 24 hours): Temp Pulse Resp BP Pulse Ox 98.1 F 61 15 93/44 L 100 01/26/18 04:00 01/26/18 06:24 01/26/18 06:24 01/26/18 06:24 01/26/18 06:24 Intake and Output: 01/25/18 01/26/18 18:59 06:59 Intake Total 726.3 971.4 Output Total 0 Balance 726.3 971.4 - Medications Medications: Current Medications Acetaminophen (Tylenol 325mg Tab) 650 mg PO Q6 PRN PRN Reason: Fever >100.4 F Last Admin: 01/25/18 09:48 Dose: 650 mg Acetaminophen (Tylenol 325mg Tab) 650 mg PO Q6 PRN PRN Reason: Pain, Mild (1-3) Bisacodyl (Dulcolax) 10 mg [place] ONCE PRN PRN Reason: Constipation Last Admin: 01/24/18 10:15 Dose: 10 mg Dextrose (Dextrose 50% Inj) 0 ml IV STAT PRN; Protocol PRN Reason: Hypoglycemia Protocol Dextrose (Glutose 15) 0 gm PO ONCE PRN; Protocol PRN Reason: Hypoglycemia Protocol Docusate Sodium (Colace) 100 mg PO BID [facility] Last Admin: 01/25/18 19:06 Dose: 100 mg Emtricitabine/Tenofovir (Truvada 200 Mg-300 Mg) 1 tab PO Q48H KATARINA PRN Reason: Protocol Last Admin: 01/24/18 14:44 Dose: 1 tab Epoetin Alonso (Procrit) 10,000 unit IV MWF [facility] Last Admin: 01/24/18 17:15 Dose: 10,000 unit Glucagon (Glucagen Diagnostic Kit) 0 mg IM STAT PRN; Protocol PRN Reason: Hypoglycemia Protocol Hydrocortisone Sodium Succinate (Solu-Cortef) 100 mg IV Q12H [facility] Last Admin: 01/25/18 21:30 Dose: 100 mg Hydromorphone HCl (Dilaudid) 0.5 mg IVP Q6H PRN PRN Reason: Pain, moderate (4-7) Last Admin: 01/26/18 05:41 Dose: 0.5 mg Vancomycin/Sodium Chloride (Vancomycin 1 Gm/Ns 200 Ml) 1 gm in 200 mls @ 133 mls/hr IVPB MWF KATARINA PRN Reason: Protocol Stop: 01/29/18 09:01 Last Admin: 01/24/18 10:23 Dose: 133 mls/hr Meropenem 500 mg/ Sodium (Chloride) 100 mls @ 100 mls/hr IVPB Q12 KATARINA PRN Reason: Protocol Last Admin: 01/25/18 21:30 Dose: 100 mls/hr Norepinephrine Bitartrate 4 mg (/ Sodium Chloride) 250 mls @ 15 mls/hr IV .[id number] PRN; Protocol; 4 MCG/MIN PRN Reason: TITRATE PER MD ORDER Last Admin: 01/26/18 06:24 Dose: 4 mcg/min, 15 mls/hr Insulin Human Regular (Novolin R) 0 unit SC Q6 KATARINA PRN Reason: Protocol Last Admin: 01/26/18 06:28 Dose: 10 u Midodrine (Proamatine) 5 mg PO TID [facility] Last Admin: 01/25/18 19:06 Dose: 5 mg Pantoprazole Sodium (Protonix Inj) 40 mg IVP DAILY [facility] Last Admin: 01/25/18 09:47 Dose: 40 mg Sevelamer Carbonate (Renvela) 800 mg PO TID [facility] Last Admin: 01/25/18 19:06 Dose: 800 mg Simethicone (Mylicon Chew Tab) 80 mg PO QID [facility] Last Admin: 01/25/18 21:31 Dose: 80 mg Vitamin B Complex/Vit C/Folic Acid (Nephro-Carlos) 1 tab PO DAILY [facility] Last Admin: 01/25/18 09:48 Dose: 1 tab - Labs Labs: 01/25/18 06:32 01/25/18 06:33 PT 11.1 SECONDS (9.7-12.2) 01/22/18 12:20 INR 1.0 01/22/18 12:20 APTT 27 SECONDS (21-34) 01/22/18 12:20 - Constitutional Appears: In Acute Distress - Head Exam Head Exam: ATRAUMATIC, NORMAL INSPECTION, NORMOCEPHALIC - Eye Exam Eye Exam: EOMI, Normal appearance, PERRL Pupil Exam: NORMAL ACCOMODATION, PERRL - ENT Exam ENT Exam: Mucous Membranes Moist, Normal Exam - Neck Exam Neck Exam: Normal Inspection - Respiratory Exam Respiratory Exam: NORMAL BREATHING PATTERN - Cardiovascular Exam Cardiovascular Exam: REGULAR RHYTHM - GI/Abdominal Exam GI & Abdominal Exam: Soft, Normal Bowel Sounds. absent: Tenderness - Exam Exam: NORMAL INSPECTION - Extremities Exam Extremities Exam: absent: Full ROM, Normal Inspection Additional comments: L AKA stump dressing C/D/I . TTP - Back Exam Back Exam: NORMAL INSPECTION - Neurological Exam Neurological Exam: Awake. absent: Alert, Oriented x3 - Skin Skin Exam: Dry, Intact, Warm Assessment and Plan - Assessment and Plan (Free Text) Assessment: POD 3 s/p AKA revision L leg Wound cx grew enterobacter and penudomonas - Continue management per ICU team -ABX - Recommend palliative care DW Dr. Sinclair
[2018-01-26 06:59] LABS: BASO % 0.2 % (0.0-2.0); HEMOGLOBIN 9.2 g/dL (11.0-16.0); LYMPH # 0.6 K/uL (1.0-4.3); LYMPH % 3.6 % (20.0-40.0); MEAN CELL VOLUME 89.9 fL (81.0-99.0); MEAN CORPUSCULAR HEMOGLOBIN 29.2 pg (27.0-31.0); MEAN CORPUSCULAR HGB CONC 32.4 g/dL (33.0-37.0); MEAN PLATELET VOLUME 8.2 fL (7.2-11.7); MONO # 0.7 K/uL (0.0-0.8); NEUT # 16.5 K/uL (1.8-7.0); NEUT % 92.2 % (50.0-75.0); NRBC % 0.2 % (0.0-2.0); PLATELET COUNT 376 K/uL (130-400); RBC 3.14 Mil/uL (3.80-5.20); RED CELL DISTRIBUTION WIDTH 17.5 % (11.5-14.5); WHITE BLOOD COUNT 17.9 K/uL (4.8-10.8)
[2018-01-26 07:17] LABS: ALB/GLOB RATIO 0.7 (1.0-2.1); ALBUMIN 2.3 g/dL (3.5-5.0); CALCIUM 9.7 mg/dl (8.6-10.4)
--- NOTE | 2018-01-26 07:54 | CP.PCM.PN ---
Subjective - Date & Time of Evaluation Date of Evaluation: 01/26/18 Time of Evaluation: 07:50 - Subjective Subjective: Hospitalist Note: Patient seen and examined this morning. No family present this morning. Patient moaning in pain. Unable to ROS secondary to clinical condition. Objective - Vital Signs/Intake and Output Vital Signs (last 24 hours): Temp Pulse Resp BP Pulse Ox 98.1 F 59 L 9 L 108/36 L 100 01/26/18 04:00 01/26/18 07:33 01/26/18 07:33 01/26/18 07:33 01/26/18 07:33 Intake and Output: 01/26/18 01/26/18 06:59 18:59 Intake Total 1026.4 55 Balance 1026.4 55 - Medications Medications: Current Medications Acetaminophen (Tylenol 325mg Tab) 650 mg PO Q6 PRN PRN Reason: Fever >100.4 F Last Admin: 01/25/18 09:48 Dose: 650 mg Acetaminophen (Tylenol 325mg Tab) 650 mg PO Q6 PRN PRN Reason: Pain, Mild (1-3) Bisacodyl (Dulcolax) 10 mg [place] ONCE PRN PRN Reason: Constipation Last Admin: 01/24/18 10:15 Dose: 10 mg Dextrose (Dextrose 50% Inj) 0 ml IV STAT PRN; Protocol PRN Reason: Hypoglycemia Protocol Dextrose (Glutose 15) 0 gm PO ONCE PRN; Protocol PRN Reason: Hypoglycemia Protocol Docusate Sodium (Colace) 100 mg PO BID [facility] Last Admin: 01/25/18 19:06 Dose: 100 mg Emtricitabine/Tenofovir (Truvada 200 Mg-300 Mg) 1 tab PO Q48H KATARINA PRN Reason: Protocol Last Admin: 01/24/18 14:44 Dose: 1 tab Epoetin Alonso (Procrit) 10,000 unit IV MWF [facility] Last Admin: 01/24/18 17:15 Dose: 10,000 unit Glucagon (Glucagen Diagnostic Kit) 0 mg IM STAT PRN; Protocol PRN Reason: Hypoglycemia Protocol Hydrocortisone Sodium Succinate (Solu-Cortef) 100 mg IV Q12H [facility] Last Admin: 01/25/18 21:30 Dose: 100 mg Hydromorphone HCl (Dilaudid) 0.5 mg IVP Q6H PRN PRN Reason: Pain, moderate (4-7) Last Admin: 01/26/18 05:41 Dose: 0.5 mg Vancomycin/Sodium Chloride (Vancomycin 1 Gm/Ns 200 Ml) 1 gm in 200 mls @ 133 mls/hr IVPB MWF [facility]INA PRN Reason: Protocol Stop: 01/29/18 09:01 Last Admin: 01/24/18 10:23 Dose: 133 mls/hr Meropenem 500 mg/ Sodium (Chloride) 100 mls @ 100 mls/hr IVPB Q12 KATARINA PRN Reason: Protocol Last Admin: 01/25/18 21:30 Dose: 100 mls/hr Norepinephrine Bitartrate 4 mg (/ Sodium Chloride) 250 mls @ 15 mls/hr IV .[id number] PRN; Protocol; 4 MCG/MIN PRN Reason: TITRATE PER MD ORDER Last Admin: 01/26/18 06:24 Dose: 4 mcg/min, 15 mls/hr Insulin Human Regular (Novolin R) 0 unit SC Q6 KATARINA PRN Reason: Protocol Last Admin: 01/26/18 06:28 Dose: 10 u Midodrine (Proamatine) 5 mg PO TID [facility] Last Admin: 01/25/18 19:06 Dose: 5 mg Pantoprazole Sodium (Protonix Inj) 40 mg IVP DAILY [facility] Last Admin: 01/25/18 09:47 Dose: 40 mg Sevelamer Carbonate (Renvela) 800 mg PO TID [facility] Last Admin: 01/25/18 19:06 Dose: 800 mg Simethicone (Mylicon Chew Tab) 80 mg PO QID [facility] Last Admin: 01/25/18 21:31 Dose: 80 mg Vitamin B Complex/Vit C/Folic Acid (Nephro-Carlos) 1 tab PO DAILY [facility] Last Admin: 01/25/18 09:48 Dose: 1 tab - Labs Labs: 01/26/18 06:51 01/26/18 06:51 PT 11.1 SECONDS (9.7-12.2) 01/22/18 12:20 INR 1.0 01/22/18 12:20 APTT 27 SECONDS (21-34) 01/22/18 12:20 - Constitutional Appears: Non-toxic, No Acute Distress - Head Exam Head Exam: NORMAL INSPECTION Additional comments: tunnel catheter over the right side of chest: clean/dry/intact - Respiratory Exam Respiratory Exam: Decreased Breath Sounds, NORMAL BREATHING PATTERN. absent: Rales, Rhonchi - Cardiovascular Exam Cardiovascular Exam: REGULAR RHYTHM, +S1, +S2 - GI/Abdominal Exam GI & Abdominal Exam: Soft, Normal Bowel Sounds. absent: Distended, Firm, Guarding, Rigid, Tenderness, Rebound - Extremities Exam Additional comments: Right BKA: clean/dry/ Intact Left BKA: Wrapped in Netta wrap with covering over it; dry. 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 Villegas)--> help appreciated * Blood cultures (01/22/18): Coag negative Staphylococcus X2 * Left Leg Thigh (01/22/18): Pseudomonas Aerguinosea * Left Thigh (01/23/18): Enterobacter Cloacae Ssp Cloac * IV Abx: * Meropenem 500mg IVPB Q12H (Active since 01/23/18) * Vancomycin 1gm IVPB MWF * Patient is on 1 Pressor, Midodrine, SoluCortef 100mg IV Q12H * Vascular surgery: Dr. Sinclair on board--> help appreciated * Operative Note 01/01/18: skin with gangrene, anterior and posterior tibial vessels with calcific atherosclerosis; bone with reactive changes. surgical resection margin appear viable * Operative Note: 01/23/18: left amputation stump infection/necrosis/gangrene--> purulent * Cardiology: Dr. Collins on board-->help appreciated * Echocardiogram (01/01/18): limited study for left ventricular ejection fraction. EF:40% septum and inferior appears to be moderately hypokinetic * Stress test (01/01/18): LV systolic function is borderline. Ejection Fraction is 50-55%. No stress induced ischemia * 57 F with multiple cardiac risk factors and low EF (Stress test negative for exercise induced ischemia) assessed as high risk for cardiac events for AKA under general anaesthesia. If benefit outweighs the risk please proceed with the surgery 2) Chronic CHF Systolic dysfunction * Cardiology (Dr. Collins) on the case-->help appreciated * Patient has cardiac risk factors: diabetes, hypertension, lipid disorder, no prior hx of SC * Echocardiogram (01/01/18): limited study for left ventricular ejection fraction. EF:40% septum and inferior appears to be moderately hypokinetic * Stress test (01/01/18): LV systolic function is borderline. Ejection Fraction is 50-55%. No stress induced ischemia * Off anti-hypertensives secondary to hypotension * Lopressor 25mg PO BID * ARB/JACKY contraindicated secondary to ESRD 3) ESRD (MWF) * Nephrology (Dr. Cao) on consult * Procrit 10,000 unit IV MWF * Nephro-Carlos 1 tab PO daily * Renvela 800mg PO TID * Dialysis held secondary to hypotension 4) Lipid Disorder * Lipid panel from 11/29/17: TG 116 Chol 131 LDL 49 HDL 29 5) Hypertension, History of Hypotension * Patient is ESRD on Saturday, Saturday, Saturday dialysis * Patient is currently on Pressor and Midodrine 6) Diabetes Mellitus, Controlled * HgbA1c checked on 11/29/17 was 5.8. * Accuchecks q6H * ISS. Will hold home diabetic medications: Starlix * Hypoglycemic protocol * Novolog sliding scale subq 7) Known hx of HIV: * Infectious Disease (Dr. Villegas) on consult-->help appreciated * HIV RNA <1.30 non detected * Will continue HIV meds: Truvada 1 tab po qd and Issentriss 400 BID. * Last CD4 count from 11/2017 was 143 * Repeat CD4 and Lymphocytic subset per ID 8) Thrombocytopenia-->normalized * Likely secondary to surgery due to consumption prior to hospitalization * HIT/CARMELLA negative 9) History of Constipation * Colace 100mg PO BID * Ducloax 10mg SC PRN * Simethicone 10) History of Anxiety * Xanax held * Seizure precautions 11) History of Anemia * Likely due to chronic disease given sepsis and ESRD * Received blood transfusions on 01/22-01/23 * On ProCrit 12) Upper extremity swelling * Detectable pulse by doppler * No DVT 13) Prophylactic measure * Contraindications to SCD secondary to peripheral vascular disease/necrotic toes/infected AKA * No DVT noted on 01/24/18 doppler * Patient is Full code. * Patient's son Dilip Rabago is unofficial health proxy; his phone number to contact [phone]-->can be called at anytime * Right Femoral TLC 01/22/18 * Contact isolation * Seizure precautions-->chronically on Xanax. * Switch Protonix to Pepcid to renal dose to reduce risk of C. Dif
[2018-01-26 08:08] LABS: BANDS 2 % (0-2); LYMPHOCYTE 5 % (20-40); MONOCYTE 3 % (0-10); NEUTROPHIL 90 % (50-75); PLATELET ESTIMATE NORMAL (NORMAL); TOTAL CELLS COUNTED 100
[2018-01-26 08:09] LABS: ANISOCYTOSIS SLIGHT; HYPOCHROMIC SLIGHT; LARGE PLATELETS PRESENT; POLYCHROMIC SLIGHT
[2018-01-26] MEDS: Multivitamin Vitamin B Complex (Nephro-Vite) Tab PO SCH (10:21)
[2018-01-26] MEDS: Lactobacillus Acidophilus 500 MU Cap PO SCH ×2 (10:21→18:19)
[2018-01-26] MEDS: Simethicone 80 mg Chewtab PO SCH ×4 (10:21→22:00)
[2018-01-26] MEDS: Meropenem 500 MG in Sodium Chloride 0.9% 100 ML IVPB SCH ×2 (10:22→22:00)
[2018-01-26] MEDS: Emtricitabine-Tenofovir 200 mg-300 mg Tab PO SCH (14:16)
--- NOTE | 2018-01-26 15:42 | CP.CCUPN ---
CCU Subjective - Physician Review Events Since Last Encounter (Free Text): 01/26/18 15:41 patient seen and examined more responsive Wants to eat patient is on low dose Levophed drip afebrile CCU Objective - Vital Signs / Intake & Output Intake and Output (Last 8hrs): Intake & Output 01/26/18 01/26/18 01/26/18 06:59 14:59 22:59 Intake Total 708.4 55 Balance 708.4 55 Weight 171 lb 0.12 oz Intake: IV 242 Intake, IV Amount 146.4 15 Right Subclavian 146.4 15 Tube Feeding 320 40 - Physical Exam Head: Positive for: Atraumatic, Normocephalic Pupils: Positive for: PERRL Extroacular Muscles: Positive for: EOMI Conjunctiva: Positive for: Normal Mouth: Positive for: Dry Respiratory/Chest: Positive for: Clear to Auscultation Cardiovascular: Positive for: Regular Rate and Rhythm Abdomen: Positive for: Normal Bowel Sounds. Negative for: Tenderness, Distention Upper Extremity: Positive for: Other (left AVF - no thrill noted ) Lower Extremity: Positive for: Other Neurological: Positive for: GCS=15, CN II-XII Intact Skin: Positive for: Warm, Dry Psychiatric: Positive for: Alert, Lethargic - Medications Active Medications: Active Medications Generic Name Dose Route Start Last Admin Trade Name Freq PRN Reason Stop Dose Admin Acetaminophen 650 mg 01/22/18 14:22 01/25/18 09:48 Tylenol 325mg Tab PO 650 mg Q6 PRN Administration Fever >100.4 F Acetaminophen 650 mg 01/22/18 14:38 Tylenol 325mg Tab PO Q6 PRN Pain, Mild (1-3) Bisacodyl 10 mg 01/22/18 14:31 01/24/18 10:15 Dulcolax MS 10 mg ONCE PRN Administration Constipation Dextrose 0 ml 01/22/18 16:27 Dextrose 50% Inj IV STAT PRN Hypoglycemia Protocol Protocol Dextrose 0 gm 01/22/18 16:27 Glutose 15 PO ONCE PRN Hypoglycemia Protocol Protocol Docusate Sodium 100 mg 01/22/18 18:00 01/26/18 10:21 Colace PO 100 mg BID KATARINA Administration Emtricitabine/Tenofovir 1 tab 01/22/18 14:30 01/24/18 14:44 Truvada 200 Mg-300 Mg PO 1 tab Q48H KATARINA Administration Protocol Epoetin Alonso 10,000 unit 01/24/18 09:00 01/24/18 17:15 Procrit [place] 10,000 unit [facility] [place] Famotidine 20 mg 01/26/18 10:00 01/26/18 10:21 Pepcid PO 20 mg DAILY KATARINA Administration Glucagon 0 mg 01/22/18 16:27 Glucagen Diagnostic Kit IM STAT PRN Hypoglycemia Protocol Protocol Hydrocortisone Sodium Succinate 100 mg 01/25/18 10:00 01/26/18 10:22 Solu-Cortef IV 100 mg Q12H KATARINA Administration Hydromorphone HCl 0.5 mg 01/24/18 08:47 01/26/18 05:41 Dilaudid IVP 0.5 mg Q6H PRN Administration Pain, moderate (4-7) Vancomycin/Sodium Chloride 1 gm in 200 mls @ 133 mls/hr 01/24/18 09:00 10:23 Vancomycin 1 Gm/Ns 200 Ml IVPB 01/29/18 09:01 133 mls/hr [facility] [place] Protocol Meropenem 500 mg/ Sodium 100 mls @ 100 mls/hr 01/23/18 10:00 01/26/18 10:22 Chloride IVPB 100 mls/hr Q12 KATARINA Administration Protocol Norepinephrine Bitartrate 4 mg 250 mls @ 15 mls/hr 01/25/18 09:30 01/26/18 06 :24 / Sodium Chloride IV 4 mcg/min .[id number] PRN 15 mls/hr TITRATE PER MD ORDER Administration Protocol 4 MCG/MIN Insulin Human Regular 0 unit 01/24/18 12:00 01/26/18 06:28 Novolin R SC 10 u Q6 KATARINA Administration Protocol Lactobacillus Acidophilus 1 cap 01/26/18 10:00 01/26/18 10:21 Bacid Acidophilus PO 1 cap BID KATARINA Administration Midodrine 5 mg 01/24/18 10:00 01/26/18 10:21 Proamatine PO 5 mg TID KATARINA Administration Sevelamer Carbonate 800 mg 01/22/18 18:00 01/26/18 10:21 Renvela PO 800 mg TID KATARINA Administration Simethicone 80 mg 01/22/18 18:00 01/26/18 10:21 Mylicon Chew Tab PO 80 mg QID KATARINA Administration Vitamin B Complex/Vit C/Folic Acid 1 tab 01/23/18 10:00 01/26/18 10:21 Nephro-Carlos PO 1 tab DAILY KATARINA Administration - Patient Studies Lab Studies: Microbiology Studies 01/22/18 11:45 S.aureus & Coag-Neg Staph PNA FISH - Final Blood-Venous Blood Culture - Final Coagulase Neg Staphylococcus Gram Stain - Final 01/22/18 12:15 Blood Culture - Final Blood-Venous Staphylococcus Sp Coag Neg Gram Stain - Final Lab Studies 01/26/18 01/26/18 01/26/18 Range/Units 11:30 06:51 06:51 WBC 17.9 H (4.8-10.8) K/uL RBC 3.14 L (3.80-5.20) Mil/uL Hgb 9.2 L (11.0-16.0) g/dL Hct 28.2 L (34.0-47.0) % MCV 89.9 (81.0-99.0) fL MCH 29.2 (27.0-31.0) pg MCHC 32.4 L (33.0-37.0) g/dL RDW 17.5 H (11.5-14.5) % Plt Count 376 (130-400) K/uL MPV 8.2 (7.2-11.7) fL Neut % (Auto) 92.2 H (50.0-75.0) % Lymph % (Auto) 3.6 L (20.0-40.0) % Lipscomb % (Auto) 4.0 (0.0-10.0) % Eos % (Auto) 0.0 (0.0-4.0) % Baso % (Auto) 0.2 (0.0-2.0) % Neut # (Auto) 16.5 H (1.8-7.0) K/uL Lymph # (Auto) 0.6 L (1.0-4.3) K/uL Lipscomb # (Auto) 0.7 (0.0-0.8) K/uL Eos # (Auto) 0.0 (0.0-0.7) K/uL Baso # (Auto) 0.0 (0.0-0.2) K/uL Neutrophils % (Manual) 90 H (50-75) % Band Neutrophils % 2 (0-2) % Lymphocytes % (Manual) 5 L (20-40) % Monocytes % (Manual) 3 (0-10) % Platelet Estimate Normal (NORMAL) Large Platelets Present Polychromasia Slight Hypochromasia (manual) Slight Basophilic Stippling Slight Anisocytosis (manual) Slight Sodium 136 (132-148) mmol/L Potassium 4.0 (3.6-5.2) mmol/L Chloride 100 (98-107) mmol/L Carbon Dioxide 26 (22-30) mmol/L Anion Gap 13 (10-20) BUN 72 H (7-17) mg/dL Creatinine 5.4 H (0.7-1.2) mg/dL Est GFR ( Amer) 10 Est GFR (Non-Af Amer) 8 POC Glucose (mg/dL) 268 H (65-110) mg/dL Random Glucose 282 H (65-105) mg/dL Calcium 9.7 (8.6-10.4) mg/dl Phosphorus 3.1 (2.5-4.5) mg/dL Magnesium 2.5 H (1.6-2.3) mg/dL Total Bilirubin 0.5 (0.2-1.3) mg/dL AST 34 (14-36) U/L ALT 18 (9-52) U/L Alkaline Phosphatase 123 (38-126) U/L Total Protein 5.7 L (6.3-8.3) g/dL Albumin 2.3 L (3.5-5.0) g/dL Globulin 3.4 (2.2-3.9) gm/dL Albumin/Globulin Ratio 0.7 L (1.0-2.1) 01/26/18 01/25/18 01/25/18 Range/Units 06:21 23:25 17:57 WBC (4.8-10.8) K/uL RBC (3.80-5.20) Mil/uL Hgb (11.0-16.0) g/dL Hct (34.0-47.0) % MCV (81.0-99.0) fL MCH (27.0-31.0) pg MCHC (33.0-37.0) g/dL RDW (11.5-14.5) % Plt Count (130-400) K/uL MPV (7.2-11.7) fL Neut % (Auto) (50.0-75.0) % Lymph % (Auto) (20.0-40.0) % Lipscomb % (Auto) (0.0-10.0) % Eos % (Auto) (0.0-4.0) % Baso % (Auto) (0.0-2.0) % Neut # (Auto) (1.8-7.0) K/uL Lymph # (Auto) (1.0-4.3) K/uL Lipscomb # (Auto) (0.0-0.8) K/uL Eos # (Auto) (0.0-0.7) K/uL Baso # (Auto) (0.0-0.2) K/uL Neutrophils % (Manual) (50-75) % Band Neutrophils % (0-2) % Lymphocytes % (Manual) (20-40) % Monocytes % (Manual) (0-10) % Platelet Estimate (NORMAL) Large Platelets Polychromasia Hypochromasia (manual) Basophilic Stippling Anisocytosis (manual) Sodium (132-148) mmol/L Potassium (3.6-5.2) mmol/L Chloride (98-107) mmol/L Carbon Dioxide (22-30) mmol/L Anion Gap (10-20) BUN (7-17) mg/dL Creatinine (0.7-1.2) mg/dL Est GFR ( Amer) Est GFR (Non-Af Amer) POC Glucose (mg/dL) 368 H 398 H 476 H* (65-110) mg/dL Random Glucose (65-105) mg/dL Calcium (8.6-10.4) mg/dl Phosphorus (2.5-4.5) mg/dL Magnesium (1.6-2.3) mg/dL Total Bilirubin (0.2-1.3) mg/dL AST (14-36) U/L ALT (9-52) U/L Alkaline Phosphatase (38-126) U/L Total Protein (6.3-8.3) g/dL Albumin (3.5-5.0) g/dL Globulin (2.2-3.9) gm/dL Albumin/Globulin Ratio (1.0-2.1) Laboratory Results - last 24 hr 01/25/18 01/25/18 01/26/18 17:57 23:25 06:21 WBC RBC Hgb Hct MCV MCH MCHC RDW Plt Count MPV Neut % (Auto) Lymph % (Auto) Lipscomb % (Auto) Eos % (Auto) Baso % (Auto) Neut # (Auto) Lymph # (Auto) Lipscomb # (Auto) Eos # (Auto) Baso # (Auto) Neutrophils % (Manual) Band Neutrophils % Lymphocytes % (Manual) Monocytes % (Manual) Platelet Estimate Large Platelets Polychromasia Hypochromasia (manual) Basophilic Stippling Anisocytosis (manual) Sodium Potassium Chloride Carbon Dioxide Anion Gap BUN Creatinine Est GFR ( Amer) Est GFR (Non-Af Amer) POC Glucose (mg/dL) 476 H* 398 H 368 H Random Glucose Calcium Phosphorus Magnesium Total Bilirubin AST ALT Alkaline Phosphatase Total Protein Albumin Globulin Albumin/Globulin Ratio 01/26/18 01/26/18 01/26/18 06:51 06:51 11:30 WBC 17.9 H RBC 3.14 L Hgb 9.2 L Hct 28.2 L MCV 89.9 MCH 29.2 MCHC 32.4 L RDW 17.5 H Plt Count 376 MPV 8.2 Neut % (Auto) 92.2 H Lymph % (Auto) 3.6 L Lipscomb % (Auto) 4.0 Eos % (Auto) 0.0 Baso % (Auto) 0.2 Neut # (Auto) 16.5 H Lymph # (Auto) 0.6 L Lipscomb # (Auto) 0.7 Eos # (Auto) 0.0 Baso # (Auto) 0.0 Neutrophils % (Manual) 90 H Band Neutrophils % 2 Lymphocytes % (Manual) 5 L Monocytes % (Manual) 3 Platelet Estimate Normal Large Platelets Present Polychromasia Slight Hypochromasia (manual) Slight Basophilic Stippling Slight Anisocytosis (manual) Slight Sodium 136 Potassium 4.0 Chloride 100 Carbon Dioxide 26 Anion Gap 13 BUN 72 H Creatinine 5.4 H Est GFR ( Amer) 10 Est GFR (Non-Af Amer) 8 POC Glucose (mg/dL) 268 H Random Glucose 282 H Calcium 9.7 Phosphorus 3.1 Magnesium 2.5 H Total Bilirubin 0.5 AST 34 ALT 18 Alkaline Phosphatase 123 Total Protein 5.7 L Albumin 2.3 L Globulin 3.4 Albumin/Globulin Ratio 0.7 L Fingerstick Blood Sugar Results: 368 Critical Care Progress Note - Nutrition Nutrition: Nutrition Category Date Time Status NPO Diet [DIET] Diets 01/23/18 Breakfast Active Assessment/Plan (1) Post-op pain Current Visit: No Status: Acute Comment: POD 2 s/p AKA revision L leg continue IV antibiotics Patient on Levophed and dialysis is on hold Case discussed with nephrology (2) End stage renal disease Current Visit: Yes Status: Acute (3) Hypotension Current Visit: Yes Status: Acute Comment: taper off levophed as tolerated
--- NOTE | 2018-01-26 15:58 | CP.PCM.PCO ---
Physician Communication Note - Physician Communication Note Physician Communication Note: Dr. Bonilla to assume care 01/27/18 as PMD.
[2018-01-26] MEDS ORDERED: Bacitracin Ointment 30 GM TUBE TOP SCH (18:45)
--- NOTE | 2018-01-26 23:05 | CP.PCM.PN ---
Subjective - Date & Time of Evaluation Date of Evaluation: 01/26/18 Time of Evaluation: 15:10 - Subjective Subjective: Patient seen and examined this morning. No acute cardiac events noted Physical Examination - Constitutional Appears: Non-toxic, No Acute Distress - Head Exam Head Exam: NORMAL INSPECTION Additional comments: tunnel catheter over the right side of chest: clean/dry/intact - Respiratory Exam Respiratory Exam: Decreased Breath Sounds, NORMAL BREATHING PATTERN. absent: Rales, Rhonchi - Cardiovascular Exam Cardiovascular Exam: REGULAR RHYTHM, +S1, +S2 - GI/Abdominal Exam GI & Abdominal Exam: Soft, Normal Bowel Sounds. absent: Distended, Firm, Guarding, Rigid, Tenderness, Rebound - Extremities Exam Additional comments: Right BKA: clean/dry/ Intact Left BKA: Wrapped in Netta wrap with covering over it; dry. prior stains noted - Neurological Exam Neurological Exam: Awake Objective - Vital Signs/Intake and Output Vital Signs (last 24 hours): Temp Pulse Resp BP Pulse Ox 96.7 F L 66 9 L 71/26 L 100 01/26/18 20:00 01/26/18 21:01 01/26/18 21:01 01/26/18 21:01 01/26/18 21:01 Intake and Output: 01/26/18 01/27/18 18:59 06:59 Intake Total 640.0 176.3 Balance 640.0 176.3 - Medications Medications: Current Medications Acetaminophen (Tylenol 325mg Tab) 650 mg PO Q6 PRN PRN Reason: Fever >100.4 F Last Admin: 01/25/18 09:48 Dose: 650 mg Acetaminophen (Tylenol 325mg Tab) 650 mg PO Q6 PRN PRN Reason: Pain, Mild (1-3) Bisacodyl (Dulcolax) 10 mg AL ONCE PRN PRN Reason: Constipation Last Admin: 01/24/18 10:15 Dose: 10 mg Dextrose (Dextrose 50% Inj) 0 ml IV STAT PRN; Protocol PRN Reason: Hypoglycemia Protocol Dextrose (Glutose 15) 0 gm PO ONCE PRN; Protocol PRN Reason: Hypoglycemia Protocol Docusate Sodium (Colace) 100 mg PO BID [facility] Last Admin: 01/26/18 18:17 Dose: 100 mg Emtricitabine/Tenofovir (Truvada 200 Mg-300 Mg) 1 tab PO Q48H [facility] PRN Reason: Protocol Last Admin: 01/26/18 14:16 Dose: 1 tab Epoetin Alonso (Procrit) 10,000 unit IV [facility] Last Admin: 01/24/18 17:15 Dose: 10,000 unit Famotidine (Pepcid) 20 mg PO DAILY [facility] Last Admin: 01/26/18 10:21 Dose: 20 mg Glucagon (Glucagen Diagnostic Kit) 0 mg IM STAT PRN; Protocol PRN Reason: Hypoglycemia Protocol Hydrocortisone Sodium Succinate (Solu-Cortef) 100 mg IV Q12H [facility] Last Admin: 01/26/18 22:00 Dose: 100 mg Hydromorphone HCl (Dilaudid) 0.5 mg IVP Q6H PRN PRN Reason: Pain, moderate (4-7) Last Admin: 01/26/18 20:05 Dose: 0.5 mg Vancomycin/Sodium Chloride (Vancomycin 1 Gm/Ns 200 Ml) 1 gm in 200 mls @ 133 mls/hr IVPB [facility] PRN Reason: Protocol Stop: 01/29/18 09:01 Last Admin: 01/24/18 10:23 Dose: 133 mls/hr Meropenem 500 mg/ Sodium (Chloride) 100 mls @ 100 mls/hr IVPB Q12 [facility] PRN Reason: Protocol Last Admin: 01/26/18 22:00 Dose: 100 mls/hr Norepinephrine Bitartrate 4 mg (/ Sodium Chloride) 250 mls @ 15 mls/hr IV .[id number] PRN; Protocol; 4 MCG/MIN PRN Reason: TITRATE PER MD ORDER Last Admin: 01/26/18 06:24 Dose: 4 mcg/min, 15 mls/hr Gentamicin Sulfate 80 mg/ (Sodium Chloride) 102 mls @ 100 mls/hr IVPB [facility] PRN Reason: Protocol Insulin Human Regular (Novolin R) 0 unit SC Q6 [facility] PRN Reason: Protocol Last Admin: 01/26/18 18:20 Dose: 10 u Lactobacillus Acidophilus (Bacid Acidophilus) 1 cap PO BID [facility] Last Admin: 01/26/18 18:19 Dose: 1 cap Midodrine (Proamatine) 5 mg PO TID [facility] Last Admin: 01/26/18 18:18 Dose: 5 mg Sevelamer Carbonate (Renvela) 800 mg PO TID [facility] Last Admin: 01/26/18 19:19 Dose: 800 mg Simethicone (Mylicon Chew Tab) 80 mg PO QID [facility] Last Admin: 01/26/18 22:00 Dose: 80 mg Vitamin B Complex/Vit C/Folic Acid (Nephro-Carlos) 1 tab PO DAILY [facility] Last Admin: 01/26/18 10:21 Dose: 1 tab - Labs Labs: 01/26/18 06:51 01/26/18 06:51 PT 11.1 SECONDS (9.7-12.2) 01/22/18 12:20 INR 1.0 01/22/18 12:20 APTT 27 SECONDS (21-34) 01/22/18 12:20 Assessment and Plan - Assessment and Plan (Free Text) Assessment: 1) Septic Shock secondary to Infected Left AKA Wound and Bacteremia Post-operative Pain s/p Left AKA on 01/01/18 for Dry gangrene L Foot and revision on 01/23/18 * Admitted to ICU * Infectious Disease (Dr. Villegas)--> help appreciated * Blood cultures (01/22/18): Coag negative Staphylococcus X2 * Left Leg Thigh (01/22/18): Pseudomonas Aerguinosea * Left Thigh (01/23/18): Enterobacter Cloacae Ssp Cloac * IV Abx: * Meropenem 500mg IVPB Q12H (Active since 01/23/18) * Vancomycin 1gm IVPB MWF * Patient is on 1 Pressor, Midodrine, SoluCortef 100mg IV Q12H * Vascular surgery: Dr. Sinclair on board--> help appreciated * Operative Note 01/01/18: skin with gangrene, anterior and posterior tibial vessels with calcific atherosclerosis; bone with reactive changes. surgical resection margin appear viable * Operative Note: 01/23/18: left amputation stump infection/necrosis/gangrene--> purulent * Cardiology: * Echocardiogram (01/01/18): limited study for left ventricular ejection fraction. EF:40% septum and inferior appears to be moderately hypokinetic * Stress test (01/01/18): LV systolic function is borderline. Ejection Fraction is 50-55%. No stress induced ischemia * 57 F with multiple cardiac risk factors and low EF (Stress test negative for exercise induced ischemia) assessed as high risk for cardiac events for AKA under general anaesthesia. If benefit outweighs the risk please proceed with the surgery 2) Chronic CHF Systolic dysfunction * Cardiology (Dr. Collins) on the case-->help appreciated * Patient has cardiac risk factors: diabetes, hypertension, lipid disorder, no prior hx of ND * Echocardiogram (01/01/18): limited study for left ventricular ejection fraction. EF:40% septum and inferior appears to be moderately hypokinetic * Stress test (01/01/18): LV systolic function is borderline. Ejection Fraction is 50-55%. No stress induced ischemia * Off anti-hypertensives secondary to hypotension * Lopressor 25mg PO BID * ARB/JACKY contraindicated secondary to ESRD 3) ESRD (MWF) * Nephrology (Dr. Cao) on consult * Procrit 10,000 unit IV MWF * Nephro-Carlos 1 tab PO daily * Renvela 800mg PO TID * Dialysis held secondary to hypotension 4) Lipid Disorder * Lipid panel from 11/29/17: TG 116 Chol 131 LDL 49 HDL 29 5) Hypertension, History of Hypotension * Patient is ESRD on Saturday, Saturday, Saturday dialysis * Patient is currently on Pressor and Midodrine 6) Diabetes Mellitus, Controlled * HgbA1c checked on 11/29/17 was 5.8. * Accuchecks q6H * ISS. Will hold home diabetic medications: Starlix * Hypoglycemic protocol * Novolog sliding scale subq 7) Known hx of HIV: * Infectious Disease (Dr. Villegas) on consult-->help appreciated * HIV RNA <1.30 non detected * Will continue HIV meds: Truvada 1 tab po qd and Issentriss 400 BID. * Last CD4 count from 11/2017 was 143 * Repeat CD4 and Lymphocytic subset per ID 8) Thrombocytopenia-->normalized * Likely secondary to surgery due to consumption prior to hospitalization * HIT/CARMELLA negative 9) History of Constipation * Colace 100mg PO BID * Ducloax 10mg AL PRN * Simethicone 10) History of Anxiety * Xanax held * Seizure precautions 11) History of Anemia * Likely due to chronic disease given sepsis and ESRD * Received blood transfusions on 01/22-01/23 * On ProCrit 12) Upper extremity swelling * Detectable pulse by doppler * No DVT 13) Prophylactic measure * Contraindications to SCD secondary to peripheral vascular disease/necrotic toes/infected AKA * No DVT noted on 01/24/18 doppler * Patient is Full code. * Patient's son Dilip Rabago is unofficial health proxy; his phone number to contact [phone]-->can be called at anytime * Right Femoral TLC 01/22/18 * Contact isolation * Seizure precautions-->chronically on Xanax. * Switch Protonix to Pepcid to renal dose to reduce risk of C. Dif
[2018-01-27] MEDS: (Novolin R) Insulin Human Regular 100 units/ml vial SC SCH ×4 (00:20→17:49)
[2018-01-27 06:20] LABS: BASO # 0.5 K/uL (0.0-0.2); BASO % 3.1 % (0.0-2.0); HEMOGLOBIN 10.1 g/dL (11.0-16.0); LYMPH # 0.6 K/uL (1.0-4.3); LYMPH % 3.8 % (20.0-40.0); MEAN CELL VOLUME 91.3 fL (81.0-99.0); MEAN CORPUSCULAR HEMOGLOBIN 29.7 pg (27.0-31.0); MEAN CORPUSCULAR HGB CONC 32.6 g/dL (33.0-37.0); MEAN PLATELET VOLUME 8.4 fL (7.2-11.7); MONO # 0.7 K/uL (0.0-0.8); MONO % 4.2 % (0.0-10.0); NEUT # 14.9 K/uL (1.8-7.0); NEUT % 88.9 % (50.0-75.0); NRBC % 0.4 % (0.0-2.0); PLATELET COUNT 359 K/uL (130-400); RED CELL DISTRIBUTION WIDTH 17.8 % (11.5-14.5); WHITE BLOOD COUNT 16.7 K/uL (4.8-10.8)
[2018-01-27 06:35] LABS: ALB/GLOB RATIO 0.7 (1.0-2.1); ALBUMIN 2.8 g/dL (3.5-5.0); CALCIUM 10.8 mg/dl (8.6-10.4)
[2018-01-27] MEDS: HYDROmorphone 0.5 mg/0.5 ml ISec IVP PRN ×3 (07:32→21:30)
[2018-01-27 08:19] LABS: BANDS 3 % (0-2); LYMPHOCYTE 3 % (20-40); MONOCYTE 4 % (0-10); NEUTROPHIL 90 % (50-75); TOTAL CELLS COUNTED 100
[2018-01-27 08:20] LABS: ANISOCYTOSIS SLIGHT; HYPOCHROMIC SLIGHT; PLATELET ESTIMATE NORMAL (NORMAL); POLYCHROMIC SLIGHT
[2018-01-27] MEDS: Vancomycin 1 gm/NS 200 ml 1 GM/200 ML BAG IVPB SCH (09:04)
[2018-01-27] MEDS: Meropenem 500 MG in Sodium Chloride 0.9% 100 ML IVPB SCH ×2 (09:05→21:30)
[2018-01-27] MEDS: Lactobacillus Acidophilus 500 MU Cap PO SCH ×2 (09:13→17:03)
[2018-01-27] MEDS: Multivitamin Vitamin B Complex (Nephro-Vite) Tab PO SCH (10:00)
[2018-01-27] MEDS: Sevelamer Carb 0.8 gm/Packet NG SCH ×3 (10:00→17:02)
[2018-01-27] MEDS ORDERED: Vancomycin 1 gm/NS 200 ml 1 GM/200 ML BAG IVPB STA (11:01)
--- NOTE | 2018-01-27 12:24 | CP.PCM.PN ---
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 Continue with Nephrovite 1 tab/day. PRBC as needed for anemia. on KEESHA with dialysis as last Hb 10.1 Continue with phos binders, last phos level 3.5 check Vit D and PTH level Patient not on RAAS leatha as BP low side. Albumin as needed with HD for low BP. maintain hemodynamics stable Glycemic control, Dialysis consistent diet Further work up/management as per primary team Dose meds/antibiotics for ESRD status. Avoid fleets enema/magnesium based laxatives. Thanks for allowing me to participate in care of your patient. Will follow patient with you. Please call if any Qs. had d/w ICU team Dr Antolin Dominguez Office: [phone] Subjective: Noted events overnight. Patients unable to provide any hx Physical Examination: General Appearance: in no acute respiratory distress, ill appearing Vitals reviewed and noted as below Head; Atraumatic, normocephalic ENT: no ulcers no thrush. Tongue is midline. Oropharynx: no rash or ulcers. EYES: left pupil opacified Neck; supple no lymphadenopathy, no thyromegaly or bruit Lungs: Normal respiratory rate/effort. Breath sounds bilateral equal and clear anteriorly Heart: Normal rate. s1s2 normal. No rub or gallop. Extremities: no edema. No varicose veins. Rt BKA. left AKA with wound dressed Neurological: Patient is non communicative and appears delirious Skin: Warm and dry. Normal turgor. No rash. Palpitation: Normal elasticity for age Abdomen: Abdomen is soft. Bowel sounds +. There is no abdominal tenderness, no guarding/rigidity or organomegaly Psych: unable MSK: no joint tenderness or swelling. Digits and nails normal, no deformity : kidney or bladder not palpable Access: Rt permacath Labs/imaging reviewed. Past medical history, past surgical history, family history, social history, allergy reviewed and noted as below Family Hx: no hx of CKD. Non contributory Objective - Vital Signs/Intake and Output Vital Signs (last 24 hours): Temp Pulse Resp BP Pulse Ox 97.4 F L 70 16 90/42 L 100 01/27/18 08:00 01/27/18 11:00 01/27/18 11:00 01/27/18 11:00 01/27/18 11:00 Intake and Output: 01/27/18 01/27/18 06:59 18:59 Intake Total 1121.6 339.7 Balance 1121.6 339.7 - Medications Medications: Current Medications Acetaminophen (Tylenol 325mg Tab) 650 mg PO Q6 PRN PRN Reason: Fever >100.4 F Last Admin: 01/25/18 09:48 Dose: 650 mg Acetaminophen (Tylenol 325mg Tab) 650 mg PO Q6 PRN PRN Reason: Pain, Mild (1-3) Albumin Human (Albumin Human 25% (12.5 Gm/50 Ml)) 25 gm IV MWF [facility] Dextrose (Dextrose 50% Inj) 0 ml IV STAT PRN; Protocol PRN Reason: Hypoglycemia Protocol Dextrose (Glutose 15) 0 gm PO ONCE PRN; Protocol PRN Reason: Hypoglycemia Protocol Emtricitabine/Tenofovir (Truvada 200 Mg-300 Mg) 1 tab PO Q48H [facility] PRN Reason: Protocol Last Admin: 01/26/18 14:16 Dose: 1 tab Epoetin Alonso (Procrit) 10,000 unit IV MWF [facility] Last Admin: 01/24/18 17:15 Dose: 10,000 unit Famotidine (Pepcid) 20 mg PO DAILY [facility] Last Admin: 01/27/18 09:13 Dose: 20 mg Glucagon (Glucagen Diagnostic Kit) 0 mg IM STAT PRN; Protocol PRN Reason: Hypoglycemia Protocol Hydrocortisone Sodium Succinate (Solu-Cortef) 100 mg IV Q12H [facility] Last Admin: 01/27/18 09:13 Dose: 100 mg Hydromorphone HCl (Dilaudid) 0.5 mg IVP Q6H PRN PRN Reason: Pain, moderate (4-7) Last Admin: 01/27/18 07:32 Dose: 0.5 mg Meropenem 500 mg/ Sodium (Chloride) 100 mls @ 100 mls/hr IVPB Q12 [facility] PRN Reason: Protocol Last Admin: 01/27/18 09:05 Dose: 100 mls/hr Norepinephrine Bitartrate 4 mg (/ Sodium Chloride) 250 mls @ 15 mls/hr IV .[id number] PRN; Protocol; 4 MCG/MIN PRN Reason: TITRATE PER MD ORDER Last Titration: 01/27/18 09:00 Dose: 1 mcg/min, 3.75 mls/hr Gentamicin Sulfate 80 mg/ (Sodium Chloride) 102 mls @ 100 mls/hr IVPB MWF [facility] PRN Reason: Protocol Last Admin: 01/27/18 09:04 Dose: 100 mls/hr Vancomycin/Sodium Chloride (Vancomycin 1 Gm/Ns 200 Ml) 1 gm in 200 mls @ 133.333 mls/hr IVPB MWF [facility] PRN Reason: Protocol Stop: 01/27/18 12:30 Insulin Human Regular (Novolin R) 0 unit SC Q6 [facility] PRN Reason: Protocol Last Admin: 01/27/18 11:40 Dose: 4 u Lactobacillus Acidophilus (Bacid Acidophilus) 1 cap PO BID [facility] Last Admin: 01/27/18 09:13 Dose: 1 cap Midodrine (Proamatine) 5 mg PO TID [facility] Last Admin: 01/27/18 09:14 Dose: 5 mg Sevelamer Carbonate (Renvela) 0.8 gm NG TIDCC [facility] Last Admin: 01/27/18 11:40 Dose: 0.8 gm Vitamin B Complex/Vit C/Folic Acid (Nephro-Carlos) 1 tab PO DAILY [facility] Last Admin: 01/27/18 10:00 Dose: 1 tab - Labs Labs: 01/27/18 06:13 01/27/18 06:13 PT 11.1 SECONDS (9.7-12.2) 01/22/18 12:20 INR 1.0 01/22/18 12:20 APTT 27 SECONDS (21-34) 01/22/18 12:20
--- NOTE | 2018-01-27 12:46 | CP.PCM.PN ---
<Yee Person - Last Filed: 01/27/18 17:34> Subjective - Date & Time of Evaluation Date of Evaluation: 01/27/18 Time of Evaluation: 12:00 - Subjective Subjective: PYG2 Progress Note for Dr. Collins Patient seen and examined at bedside. Patient is intermittently moaning, but does answer yes and no to questions. Patient denies any chest pain, palpitations , or shortness of breath. Objective - Vital Signs/Intake and Output Vital Signs (last 24 hours): Temp Pulse Resp BP Pulse Ox 98.2 F 74 18 97/46 L 100 01/27/18 12:00 01/27/18 12:00 01/27/18 12:00 01/27/18 12:00 01/27/18 12:00 Intake and Output: 01/27/18 01/27/18 06:59 18:59 Intake Total 1121.6 423.5 Balance 1121.6 423.5 - Medications Medications: Current Medications Acetaminophen (Tylenol 325mg Tab) 650 mg PO Q6 PRN PRN Reason: Fever >100.4 F Last Admin: 01/25/18 09:48 Dose: 650 mg Acetaminophen (Tylenol 325mg Tab) 650 mg PO Q6 PRN PRN Reason: Pain, Mild (1-3) Albumin Human (Albumin Human 25% (12.5 Gm/50 Ml)) 25 gm IV MWF [facility] Dextrose (Dextrose 50% Inj) 0 ml IV STAT PRN; Protocol PRN Reason: Hypoglycemia Protocol Dextrose (Glutose 15) 0 gm PO ONCE PRN; Protocol PRN Reason: Hypoglycemia Protocol Emtricitabine/Tenofovir (Truvada 200 Mg-300 Mg) 1 tab PO Q48H [facility] PRN Reason: Protocol Last Admin: 01/26/18 14:16 Dose: 1 tab Epoetin Alonso (Procrit) 10,000 unit IV MWF [facility] Last Admin: 01/24/18 17:15 Dose: 10,000 unit Famotidine (Pepcid) 20 mg PO DAILY [facility] Last Admin: 01/27/18 09:13 Dose: 20 mg Glucagon (Glucagen Diagnostic Kit) 0 mg IM STAT PRN; Protocol PRN Reason: Hypoglycemia Protocol Hydrocortisone Sodium Succinate (Solu-Cortef) 100 mg IV Q12H [facility] Last Admin: 01/27/18 09:13 Dose: 100 mg Hydromorphone HCl (Dilaudid) 0.5 mg IVP Q6H PRN PRN Reason: Pain, moderate (4-7) Last Admin: 01/27/18 07:32 Dose: 0.5 mg Meropenem 500 mg/ Sodium (Chloride) 100 mls @ 100 mls/hr IVPB Q12 [facility] PRN Reason: Protocol Last Admin: 01/27/18 09:05 Dose: 100 mls/hr Norepinephrine Bitartrate 4 mg (/ Sodium Chloride) 250 mls @ 15 mls/hr IV .[id number] PRN; Protocol; 4 MCG/MIN PRN Reason: TITRATE PER MD ORDER Last Titration: 01/27/18 09:00 Dose: 1 mcg/min, 3.75 mls/hr Gentamicin Sulfate 80 mg/ (Sodium Chloride) 102 mls @ 100 mls/hr IVPB MWF [facility] PRN Reason: Protocol Last Admin: 01/27/18 09:04 Dose: 100 mls/hr Insulin Human Regular (Novolin R) 0 unit SC Q6 [facility] PRN Reason: Protocol Last Admin: 01/27/18 11:40 Dose: 4 u Lactobacillus Acidophilus (Bacid Acidophilus) 1 cap PO BID [facility] Last Admin: 01/27/18 09:13 Dose: 1 cap Midodrine (Proamatine) 5 mg PO TID [facility] Last Admin: 01/27/18 09:14 Dose: 5 mg Sevelamer Carbonate (Renvela) 0.8 gm NG TIDCC [facility] Last Admin: 01/27/18 11:40 Dose: 0.8 gm Vitamin B Complex/Vit C/Folic Acid (Nephro-Carlos) 1 tab PO DAILY [facility] Last Admin: 01/27/18 10:00 Dose: 1 tab - Labs Labs: 01/27/18 06:13 01/27/18 06:13 PT 11.1 SECONDS (9.7-12.2) 01/22/18 12:20 INR 1.0 01/22/18 12:20 APTT 27 SECONDS (21-34) 01/22/18 12:20 - Constitutional Appears: Non-toxic, No Acute Distress - Head Exam Head Exam: ATRAUMATIC, NORMAL INSPECTION, NORMOCEPHALIC - ENT Exam ENT Exam: Mucous Membranes Moist - Respiratory Exam Respiratory Exam: NORMAL BREATHING PATTERN - Cardiovascular Exam Cardiovascular Exam: REGULAR RHYTHM, RRR, +S1, +S2 - GI/Abdominal Exam GI & Abdominal Exam: Soft. absent: Tenderness - Back Exam Additional comments: R BKA, L AKA - Neurological Exam Neurological Exam: Alert, Awake - Psychiatric Exam Psychiatric exam: Anxious - Skin Additional comments: L MARCELINO, incision C/D/I, no erythema/necrotic tissue noted Assessment and Plan - Assessment and Plan (Free Text) Assessment: Septic shock secondary to infected Left AKA wound s/p L AKA on 01/01/18 for dry gangrene with revision on 01/23/18 Blood cultures (01/22/18): Coag negative Staphylococcus X2 Left Leg Thigh (01/22/18): Pseudomonas Aerguinosea Left Thigh (01/23/18): Enterobacter Cloacae Ssp Cloac Repeat blood cultures 01/26/18- negative continue on pain medications, abx per ID, and wound care Hypotension on Levophed drip wean off as tolerated Chronic CHF Systolic dysfunction * Patient has cardiac risk factors: diabetes, hypertension, lipid disorder, no prior hx of CT * Echocardiogram (01/01/18): limited study for left ventricular ejection fraction. EF:40% septum and inferior appears to be moderately hypokinetic * Stress test (01/01/18): LV systolic function is borderline. Ejection Fraction is 50-55%. No stress induced ischemia * On levophed drip * ECHO: mitral valve thickened, can't rule out vegetation. if clinically indicated will need MARY ANN ESRD dialysis MWF monitor BP <Dennis,Donald - Last Filed: 01/27/18 23:09> Objective - Vital Signs/Intake and Output Vital Signs (last 24 hours): Temp Pulse Resp BP Pulse Ox 97.5 F L 78 10 L 97/49 L 100 01/27/18 20:00 01/27/18 22:18 01/27/18 22:18 01/27/18 22:18 01/27/18 22:18 Intake and Output: 01/27/18 01/28/18 18:59 06:59 Intake Total 1186.3 405.2 Balance 1186.3 405.2 - Medications Medications: Current Medications Acetaminophen (Tylenol 325mg Tab) 650 mg PO Q6 PRN PRN Reason: Fever >100.4 F Last Admin: 01/25/18 09:48 Dose: 650 mg Acetaminophen (Tylenol 325mg Tab) 650 mg PO Q6 PRN PRN Reason: Pain, Mild (1-3) Albumin Human (Albumin Human 25% (12.5 Gm/50 Ml)) 25 gm IV MWF [facility] Last Admin: 01/27/18 19:19 Dose: 12.5 gm Alprazolam (Xanax) 0.25 mg PO HS PRN PRN Reason: Anxiety Stop: 02/03/18 19:30 Last Admin: 01/27/18 22:05 Dose: 0.25 mg Dextrose (Dextrose 50% Inj) 0 ml IV STAT PRN; Protocol PRN Reason: Hypoglycemia Protocol Dextrose (Glutose 15) 0 gm PO ONCE PRN; Protocol PRN Reason: Hypoglycemia Protocol Emtricitabine/Tenofovir (Truvada 200 Mg-300 Mg) 1 tab PO Q48H [facility] PRN Reason: Protocol Last Admin: 01/26/18 14:16 Dose: 1 tab Epoetin Alonso (Procrit) 10,000 unit IV [facility] Last Admin: 01/27/18 20:30 Dose: 10,000 unit Famotidine (Pepcid) 20 mg PO DAILY [facility] Last Admin: 01/27/18 09:13 Dose: 20 mg Glucagon (Glucagen Diagnostic Kit) 0 mg IM STAT PRN; Protocol PRN Reason: Hypoglycemia Protocol Heparin Sodium (Porcine) (Heparin) 5,000 units SC Q8 [facility] Last Admin: 01/27/18 21:30 Dose: 5,000 units Hydrocortisone Sodium Succinate (Solu-Cortef) 100 mg IV Q12H [facility] Last Admin: 01/27/18 22:05 Dose: 100 mg Hydromorphone HCl (Dilaudid) 0.5 mg IVP Q6H PRN PRN Reason: Pain, moderate (4-7) Last Admin: 01/27/18 21:30 Dose: 0.5 mg Meropenem 500 mg/ Sodium (Chloride) 100 mls @ 100 mls/hr IVPB Q12 [facility] PRN Reason: Protocol Last Admin: 01/27/18 21:30 Dose: 100 mls/hr Norepinephrine Bitartrate 4 mg (/ Sodium Chloride) 250 mls @ 15 mls/hr IV .[id number] PRN; Protocol; 4 MCG/MIN PRN Reason: TITRATE PER MD ORDER Last Titration: 01/27/18 09:00 Dose: 1 mcg/min, 3.75 mls/hr Gentamicin Sulfate 80 mg/ (Sodium Chloride) 102 mls @ 100 mls/hr IVPB MWF [facility] PRN Reason: Protocol Last Admin: 01/27/18 09:04 Dose: 100 mls/hr Vancomycin/Sodium Chloride (Vancomycin 1 Gm/Ns 200 Ml) 1 gm in 200 mls @ 133.333 mls/hr IVPB MWF [facility] PRN Reason: Protocol Stop: 02/03/18 10:01 Insulin Human Regular (Novolin R) 0 unit SC Q6 [facility] PRN Reason: Protocol Last Admin: 01/27/18 17:49 Dose: 6 u Lactobacillus Acidophilus (Bacid Acidophilus) 1 cap PO BID [facility] Last Admin: 01/27/18 17:03 Dose: 1 cap Midodrine (Proamatine) 5 mg PO TID [facility] Last Admin: 01/27/18 17:03 Dose: 5 mg Sevelamer Carbonate (Renvela) 0.8 gm NG TIDCC [facility] Last Admin: 01/27/18 17:02 Dose: 0.8 gm Vitamin B Complex/Vit C/Folic Acid (Nephro-Carlos) 1 tab PO DAILY [facility] Last Admin: 01/27/18 10:00 Dose: 1 tab - Labs Labs: 01/27/18 06:13 01/27/18 06:13 PT 11.1 SECONDS (9.7-12.2) 01/22/18 12:20 INR 1.0 01/22/18 12:20 APTT 27 SECONDS (21-34) 01/22/18 12:20 Assessment and Plan - Assessment and Plan (Free Text) Assessment: Patient seen and evaluated personally by nd Plan of care d/w the resident and as documented Case d/w PMD Dr. Bonilla and will hold off MARY ANN for now
--- NOTE | 2018-01-27 14:06 | CP.PCM.PN ---
Subjective - Date & Time of Evaluation Date of Evaluation: 01/27/18 Time of Evaluation: 14:05 - Subjective Subjective: Surgery: Dr. Sinclair Pt seen and examined. No acute events overnight. Pt is intermittently moaning, this is her baseline. Objective - Vital Signs/Intake and Output Vital Signs (last 24 hours): Temp Pulse Resp BP Pulse Ox 98.2 F 74 18 97/46 L 100 01/27/18 12:00 01/27/18 12:00 01/27/18 12:00 01/27/18 12:00 01/27/18 12:00 Intake and Output: 01/27/18 01/27/18 06:59 18:59 Intake Total 1121.6 423.5 Balance 1121.6 423.5 - Medications Medications: Current Medications Acetaminophen (Tylenol 325mg Tab) 650 mg PO Q6 PRN PRN Reason: Fever >100.4 F Last Admin: 01/25/18 09:48 Dose: 650 mg Acetaminophen (Tylenol 325mg Tab) 650 mg PO Q6 PRN PRN Reason: Pain, Mild (1-3) Albumin Human (Albumin Human 25% (12.5 Gm/50 Ml)) 25 gm IV MWF [facility] Dextrose (Dextrose 50% Inj) 0 ml IV STAT PRN; Protocol PRN Reason: Hypoglycemia Protocol Dextrose (Glutose 15) 0 gm PO ONCE PRN; Protocol PRN Reason: Hypoglycemia Protocol Emtricitabine/Tenofovir (Truvada 200 Mg-300 Mg) 1 tab PO Q48H [facility] PRN Reason: Protocol Last Admin: 01/26/18 14:16 Dose: 1 tab Epoetin Alonso (Procrit) 10,000 unit IV MWF [facility] Last Admin: 01/24/18 17:15 Dose: 10,000 unit Famotidine (Pepcid) 20 mg PO DAILY [facility] Last Admin: 01/27/18 09:13 Dose: 20 mg Glucagon (Glucagen Diagnostic Kit) 0 mg IM STAT PRN; Protocol PRN Reason: Hypoglycemia Protocol Hydrocortisone Sodium Succinate (Solu-Cortef) 100 mg IV Q12H [facility] Last Admin: 01/27/18 09:13 Dose: 100 mg Hydromorphone HCl (Dilaudid) 0.5 mg IVP Q6H PRN PRN Reason: Pain, moderate (4-7) Last Admin: 01/27/18 07:32 Dose: 0.5 mg Meropenem 500 mg/ Sodium (Chloride) 100 mls @ 100 mls/hr IVPB Q12 [facility] PRN Reason: Protocol Last Admin: 01/27/18 09:05 Dose: 100 mls/hr Norepinephrine Bitartrate 4 mg (/ Sodium Chloride) 250 mls @ 15 mls/hr IV .[id number] PRN; Protocol; 4 MCG/MIN PRN Reason: TITRATE PER MD ORDER Last Titration: 01/27/18 09:00 Dose: 1 mcg/min, 3.75 mls/hr Gentamicin Sulfate 80 mg/ (Sodium Chloride) 102 mls @ 100 mls/hr IVPB MWF [facility] PRN Reason: Protocol Last Admin: 01/27/18 09:04 Dose: 100 mls/hr Insulin Human Regular (Novolin R) 0 unit SC Q6 [facility] PRN Reason: Protocol Last Admin: 01/27/18 11:40 Dose: 4 u Lactobacillus Acidophilus (Bacid Acidophilus) 1 cap PO BID [facility] Last Admin: 01/27/18 09:13 Dose: 1 cap Midodrine (Proamatine) 5 mg PO TID [facility] Last Admin: 01/27/18 09:14 Dose: 5 mg Sevelamer Carbonate (Renvela) 0.8 gm NG TIDCC [facility] Last Admin: 01/27/18 11:40 Dose: 0.8 gm Vitamin B Complex/Vit C/Folic Acid (Nephro-Carlos) 1 tab PO DAILY [facility] Last Admin: 01/27/18 10:00 Dose: 1 tab - Labs Labs: 01/27/18 06:13 01/27/18 06:13 PT 11.1 SECONDS (9.7-12.2) 01/22/18 12:20 INR 1.0 01/22/18 12:20 APTT 27 SECONDS (21-34) 01/22/18 12:20 - Constitutional Appears: Non-toxic, No Acute Distress - Head Exam Head Exam: ATRAUMATIC, NORMOCEPHALIC - Eye Exam Eye Exam: EOMI - ENT Exam ENT Exam: Mucous Membranes Moist - Neck Exam Neck Exam: Full ROM - Respiratory Exam Respiratory Exam: NORMAL BREATHING PATTERN. absent: Accessory Muscle Use, Respiratory Distress - GI/Abdominal Exam GI & Abdominal Exam: Soft. absent: Tenderness - Extremities Exam Additional comments: L AKA, incision C/D/I, no erythema/necrotic tissue noted - Neurological Exam Neurological Exam: Alert, Awake Assessment and Plan - Assessment and Plan (Free Text) Assessment: 58F POD#4 revision of necrotic AKA -continue with abx per ID -c/w pain meds -Local wound care -d/w attending Clifford PGY3
--- NOTE | 2018-01-27 14:25 | CP.CCUPN ---
<Leelee Almeida - Last Filed: 01/27/18 17:51> CCU Subjective - Physician Review Subjective (Free Text): 01/27/18 14:19 58 yo female with PMHx of HLD, HTN, HIV, ESRD (dialysis M/W/F), IDDM, PAD, 4 days s/p L AKA revision 2/2 gangrenous stump infection, admitted to ICU for pressure support 2/2 to sepsis and bacteremia. No acute events overnight. Patient is altered and unable to communicate. CCU Objective - Vital Signs / Intake & Output Vital Signs (Last 4 hours): Vital Signs Temp Pulse Resp BP Pulse Ox 01/27/18 14:00 79 18 109/58 L 100 01/27/18 13:00 74 17 96/40 L 100 01/27/18 12:00 98.2 F 74 18 97/46 L 100 01/27/18 11:00 70 16 90/42 L 100 Intake and Output (Last 8hrs): Intake & Output 01/26/18 01/27/18 01/27/18 22:59 06:59 14:59 Intake Total 602.6 694.0 423.5 Balance 602.6 694.0 423.5 Weight 152 lb 1.903 oz 158 lb 11.725 oz Intake: IV 265 35 Intake, IV Amount 152.6 79.0 48.5 Right Antecubital 100 Right Subclavian 52.6 79.0 48.5 Oral 130 30 Tube Feeding 320 320 240 Albumin 100 Other: # Bowel Movements 1 1 - Physical Exam Physical Exam Limitations: Positive for: Altered Mental Status Head: Positive for: Atraumatic, Normocephalic Pupils: Positive for: PERRL Extroacular Muscles: Positive for: EOMI Conjunctiva: Positive for: Normal Mouth: Positive for: Dry Respiratory/Chest: Positive for: Clear to Auscultation. Negative for: Wheezes, Rhonchi Cardiovascular: Positive for: Regular Rate and Rhythm. Negative for: Murmurs Abdomen: Positive for: Normal Bowel Sounds. Negative for: Tenderness, Distention Upper Extremity: Positive for: Normal Inspection, Other (left AVF - no thrill noted ) Lower Extremity: Positive for: Other (B/L AKA. Left bandaged CDI). Negative for: Normal Inspection, Edema Skin: Positive for: Warm, Dry, Other (L AKA incision site, non erythematous, no drainage, bandage CDI) Psychiatric: Positive for: Alert, Lethargic - Medications Active Medications: Active Medications Generic Name Dose Route Start Last Admin Trade Name Freq PRN Reason Stop Dose Admin Acetaminophen 650 mg 01/22/18 14:22 01/25/18 09:48 Tylenol 325mg Tab PO 650 mg Q6 PRN Administration Fever >100.4 F Acetaminophen 650 mg 01/22/18 14:38 Tylenol 325mg Tab PO Q6 PRN Pain, Mild (1-3) Albumin Human 25 gm 01/27/18 12:30 Albumin Human 25% (12.5 Gm/50 Ml) IV MWF [facility] Dextrose 0 ml 01/22/18 16:27 Dextrose 50% Inj IV STAT PRN Hypoglycemia Protocol Protocol Dextrose 0 gm 01/22/18 16:27 Glutose 15 PO ONCE PRN Hypoglycemia Protocol Protocol Emtricitabine/Tenofovir 1 tab 01/22/18 14:30 01/26/18 14:16 Truvada 200 Mg-300 Mg PO 1 tab Q48H [facility] Administration Protocol Epoetin Alonso 10,000 unit 01/24/18 09:00 01/24/18 17:15 Procrit IV 10,000 unit MWF [facility] Administration Famotidine 20 mg 01/26/18 10:00 01/27/18 09:13 Pepcid PO 20 mg DAILY [facility] Administration Glucagon 0 mg 01/22/18 16:27 Glucagen Diagnostic Kit IM STAT PRN Hypoglycemia Protocol Protocol Hydrocortisone Sodium Succinate 100 mg 01/25/18 10:00 01/27/18 09:13 Solu-Cortef IV 100 mg Q12H [facility] Administration Hydromorphone HCl 0.5 mg 01/24/18 08:47 01/27/18 14:09 Dilaudid IVP 0.5 mg Q6H PRN Administration Pain, moderate (4-7) Meropenem 500 mg/ Sodium 100 mls @ 100 mls/hr 01/23/18 10:00 01/27/18 09:05 Chloride IVPB 100 mls/hr Q12 [facility]INA Administration Protocol Norepinephrine Bitartrate 4 mg 250 mls @ 15 mls/hr 01/25/18 09:30 01/27/18 09 :00 / Sodium Chloride IV 1 mcg/min .[id number] PRN 3.75 mls/hr TITRATE PER MD ORDER Titration Protocol 4 MCG/MIN Gentamicin Sulfate 80 mg/ 102 mls @ 100 mls/hr 01/27/18 09:00 01/27/18 09:04 Sodium Chloride IVPB 100 mls/hr [facility] K[facility]ARINA Administration Protocol Insulin Human Regular 0 unit 01/24/18 12:00 01/27/18 11:40 Novolin R SC 4 u Q6 [facility]INA Administration Protocol Lactobacillus Acidophilus 1 cap 01/26/18 10:00 01/27/18 09:13 Bacid Acidophilus PO 1 cap BID [facility] Administration Midodrine 5 mg 01/24/18 10:00 01/27/18 14:14 Proamatine PO 5 mg TID [facility] Administration Sevelamer Carbonate 0.8 gm 01/27/18 09:15 01/27/18 11:40 Renvela NG 0.8 gm TIDCC [facility] Administration Vitamin B Complex/Vit C/Folic Acid 1 tab 01/23/18 10:00 01/27/18 10:00 Nephro-Carlos PO 1 tab DAILY [facility] Administration - Patient Studies Lab Studies: Microbiology Studies 01/26/18 11:37 Blood Culture - Preliminary Blood NO GROWTH AFTER 24 HOURS 01/22/18 11:45 S.aureus & Coag-Neg Staph PNA FISH - Final Blood-Venous Blood Culture - Final Coagulase Neg Staphylococcus Gram Stain - Final 01/22/18 12:15 Blood Culture - Final Blood-Venous Staphylococcus Sp Coag Neg Gram Stain - Final Lab Studies 01/27/18 01/27/18 01/27/18 Range/Units 11:37 06:13 06:13 WBC 16.7 H (4.8-10.8) K/uL RBC 3.40 L (3.80-5.20) Mil/uL Hgb 10.1 L (11.0-16.0) g/dL Hct 31.0 L (34.0-47.0) % MCV 91.3 (81.0-99.0) fL MCH 29.7 (27.0-31.0) pg MCHC 32.6 L (33.0-37.0) g/dL RDW 17.8 H (11.5-14.5) % Plt Count 359 (130-400) K/uL MPV 8.4 (7.2-11.7) fL Neut % (Auto) 88.9 H (50.0-75.0) % Lymph % (Auto) 3.8 L (20.0-40.0) % [place] % (Auto) 4.2 (0.0-10.0) % Eos % (Auto) 0.0 (0.0-4.0) % Baso % (Auto) 3.1 H (0.0-2.0) % Neut # (Auto) 14.9 H (1.8-7.0) K/uL Lymph # (Auto) 0.6 L (1.0-4.3) K/uL [place] # (Auto) 0.7 (0.0-0.8) K/uL Eos # (Auto) 0.0 (0.0-0.7) K/uL Baso # (Auto) 0.5 H (0.0-0.2) K/uL Neutrophils % (Manual) 90 H (50-75) % Band Neutrophils % 3 H (0-2) % Lymphocytes % (Manual) 3 L (20-40) % Monocytes % (Manual) 4 (0-10) % Platelet Estimate Normal (NORMAL) Polychromasia Slight Hypochromasia (manual) Slight Anisocytosis (manual) Slight Sodium 134 (132-148) mmol/L Potassium 4.4 (3.6-5.2) mmol/L Chloride 97 L (98-107) mmol/L Carbon Dioxide 26 (22-30) mmol/L Anion Gap 16 (10-20) BUN 97 H (7-17) mg/dL Creatinine 5.6 H (0.7-1.2) mg/dL Est GFR ( Amer) 10 Est GFR (Non-Af Amer) 8 POC Glucose (mg/dL) 210 H (65-110) mg/dL Random Glucose 253 H (65-105) mg/dL Calcium 10.8 H (8.6-10.4) mg/dl Phosphorus 3.5 (2.5-4.5) mg/dL Magnesium 2.9 H (1.6-2.3) mg/dL Total Bilirubin 0.4 (0.2-1.3) mg/dL AST 66 H D (14-36) U/L ALT 37 (9-52) U/L Alkaline Phosphatase 234 H D (38-126) U/L Total Protein 6.6 (6.3-8.3) g/dL Albumin 2.8 L D (3.5-5.0) g/dL Globulin 3.8 (2.2-3.9) gm/dL Albumin/Globulin Ratio 0.7 L (1.0-2.1) Stool Occult Blood (NEGATIVE) 01/27/18 01/27/18 01/26/18 Range/Units 05:35 00:13 20:13 WBC (4.8-10.8) K/uL RBC (3.80-5.20) Mil/uL Hgb (11.0-16.0) g/dL Hct (34.0-47.0) % MCV (81.0-99.0) fL MCH (27.0-31.0) pg MCHC (33.0-37.0) g/dL RDW (11.5-14.5) % Plt Count (130-400) K/uL MPV (7.2-11.7) fL Neut % (Auto) (50.0-75.0) % Lymph % (Auto) (20.0-40.0) % [place] % (Auto) (0.0-10.0) % Eos % (Auto) (0.0-4.0) % Baso % (Auto) (0.0-2.0) % Neut # (Auto) (1.8-7.0) K/uL Lymph # (Auto) (1.0-4.3) K/uL [place] # (Auto) (0.0-0.8) K/uL Eos # (Auto) (0.0-0.7) K/uL Baso # (Auto) (0.0-0.2) K/uL Neutrophils % (Manual) (50-75) % Band Neutrophils % (0-2) % Lymphocytes % (Manual) (20-40) % Monocytes % (Manual) (0-10) % Platelet Estimate (NORMAL) Polychromasia Hypochromasia (manual) Anisocytosis (manual) Sodium (132-148) mmol/L Potassium (3.6-5.2) mmol/L Chloride (98-107) mmol/L Carbon Dioxide (22-30) mmol/L Anion Gap (10-20) BUN (7-17) mg/dL Creatinine (0.7-1.2) mg/dL Est GFR ( Amer) Est GFR (Non-Af Amer) POC Glucose (mg/dL) 275 H 407 H* (65-110) mg/dL Random Glucose (65-105) mg/dL Calcium (8.6-10.4) mg/dl Phosphorus (2.5-4.5) mg/dL Magnesium (1.6-2.3) mg/dL Total Bilirubin (0.2-1.3) mg/dL AST (14-36) U/L ALT (9-52) U/L Alkaline Phosphatase (38-126) U/L Total Protein (6.3-8.3) g/dL Albumin (3.5-5.0) g/dL Globulin (2.2-3.9) gm/dL Albumin/Globulin Ratio (1.0-2.1) Stool Occult Blood Negative (NEGATIVE) 01/26/18 Range/Units 17:43 WBC (4.8-10.8) K/uL RBC (3.80-5.20) Mil/uL Hgb (11.0-16.0) g/dL Hct (34.0-47.0) % MCV (81.0-99.0) fL MCH (27.0-31.0) pg MCHC (33.0-37.0) g/dL RDW (11.5-14.5) % Plt Count (130-400) K/uL MPV (7.2-11.7) fL Neut % (Auto) (50.0-75.0) % Lymph % (Auto) (20.0-40.0) % [place] % (Auto) (0.0-10.0) % Eos % (Auto) (0.0-4.0) % Baso % (Auto) (0.0-2.0) % Neut # (Auto) (1.8-7.0) K/uL Lymph # (Auto) (1.0-4.3) K/uL [place] # (Auto) (0.0-0.8) K/uL Eos # (Auto) (0.0-0.7) K/uL Baso # (Auto) (0.0-0.2) K/uL Neutrophils % (Manual) (50-75) % Band Neutrophils % (0-2) % Lymphocytes % (Manual) (20-40) % Monocytes % (Manual) (0-10) % Platelet Estimate (NORMAL) Polychromasia Hypochromasia (manual) Anisocytosis (manual) Sodium (132-148) mmol/L Potassium (3.6-5.2) mmol/L Chloride (98-107) mmol/L Carbon Dioxide (22-30) mmol/L Anion Gap (10-20) BUN (7-17) mg/dL Creatinine (0.7-1.2) mg/dL Est GFR ( Amer) Est GFR (Non-Af Amer) POC Glucose (mg/dL) 319 H (65-110) mg/dL Random Glucose (65-105) mg/dL Calcium (8.6-10.4) mg/dl Phosphorus (2.5-4.5) mg/dL Magnesium (1.6-2.3) mg/dL Total Bilirubin (0.2-1.3) mg/dL AST (14-36) U/L ALT (9-52) U/L Alkaline Phosphatase (38-126) U/L Total Protein (6.3-8.3) g/dL Albumin (3.5-5.0) g/dL Globulin (2.2-3.9) gm/dL Albumin/Globulin Ratio (1.0-2.1) Stool Occult Blood (NEGATIVE) Laboratory Results - last 24 hr 01/26/18 01/26/18 01/27/18 17:43 20:13 00:13 WBC RBC Hgb Hct MCV MCH MCHC RDW Plt Count MPV Neut % (Auto) Lymph % (Auto) [place] % (Auto) Eos % (Auto) Baso % (Auto) Neut # (Auto) Lymph # (Auto) [place] # (Auto) Eos # (Auto) Baso # (Auto) Neutrophils % (Manual) Band Neutrophils % Lymphocytes % (Manual) Monocytes % (Manual) Platelet Estimate Polychromasia Hypochromasia (manual) Anisocytosis (manual) Sodium Potassium Chloride Carbon Dioxide Anion Gap BUN Creatinine Est GFR ( Amer) Est GFR (Non-Af Amer) POC Glucose (mg/dL) 319 H 407 H* Random Glucose Calcium Phosphorus Magnesium Total Bilirubin AST ALT Alkaline Phosphatase Total Protein Albumin Globulin Albumin/Globulin Ratio Stool Occult Blood Negative 01/27/18 01/27/18 01/27/18 05:35 06:13 06:13 WBC 16.7 H RBC 3.40 L Hgb 10.1 L Hct 31.0 L MCV 91.3 MCH 29.7 MCHC 32.6 L RDW 17.8 H Plt Count 359 MPV 8.4 Neut % (Auto) 88.9 H Lymph % (Auto) 3.8 L [place] % (Auto) 4.2 Eos % (Auto) 0.0 Baso % (Auto) 3.1 H Neut # (Auto) 14.9 H Lymph # (Auto) 0.6 L [place] # (Auto) 0.7 Eos # (Auto) 0.0 Baso # (Auto) 0.5 H Neutrophils % (Manual) 90 H Band Neutrophils % 3 H Lymphocytes % (Manual) 3 L Monocytes % (Manual) 4 Platelet Estimate Normal Polychromasia Slight Hypochromasia (manual) Slight Anisocytosis (manual) Slight Sodium 134 Potassium 4.4 Chloride 97 L Carbon Dioxide 26 Anion Gap 16 BUN 97 H Creatinine 5.6 H Est GFR ( Amer) 10 Est GFR (Non-Af Amer) 8 POC Glucose (mg/dL) 275 H Random Glucose 253 H Calcium 10.8 H Phosphorus 3.5 Magnesium 2.9 H Total Bilirubin 0.4 AST 66 H D ALT 37 Alkaline Phosphatase 234 H D Total Protein 6.6 Albumin 2.8 L D Globulin 3.8 Albumin/Globulin Ratio 0.7 L Stool Occult Blood 01/27/18 11:37 WBC RBC Hgb Hct MCV MCH MCHC RDW Plt Count MPV Neut % (Auto) Lymph % (Auto) [place] % (Auto) Eos % (Auto) Baso % (Auto) Neut # (Auto) Lymph # (Auto) [place] # (Auto) Eos # (Auto) Baso # (Auto) Neutrophils % (Manual) Band Neutrophils % Lymphocytes % (Manual) Monocytes % (Manual) Platelet Estimate Polychromasia Hypochromasia (manual) Anisocytosis (manual) Sodium Potassium Chloride Carbon Dioxide Anion Gap BUN Creatinine Est GFR ( Amer) Est GFR (Non-Af Amer) POC Glucose (mg/dL) 210 H Random Glucose Calcium Phosphorus Magnesium Total Bilirubin AST ALT Alkaline Phosphatase Total Protein Albumin Globulin Albumin/Globulin Ratio Stool Occult Blood Fingerstick Blood Sugar Results: 210 Review of Systems - Review of Systems Systems not reviewed;Unavailable: Altered Mental Status Critical Care Progress Note - Prophylaxis GI Prophylaxis GI: Pepsid - Nutrition Nutrition: Nutrition Category Date Time Status NPO Diet [DIET] Diets 01/23/18 Breakfast Active Assessment/Plan - Assessment and Plan (Free Text) Assessment: 58 yo female with PMHx of HLD, HTN, HIV, ESRD (dialysis M/W/F), IDDM, PAD, 4 days s/p L AKA revision 2/2 gangrenous stump infection, admitted to ICU for pressure support 2/2 to sepsis and bacteremia. 1. Septic shock 2/2 to infected(pseudomonas, enterobacter clocae) L AKA revision and bacteremia(coag - staph) -IV Abx-Merrem 500 Q12, Vanco 1g M/W/F, Gentamicin 80mg M/W/F -pain control-Acetaminophen 650mg Q6 PRN, Dilaudid .5mg Q6 PRN -ID consult, Bakari Herrera Sadhna 2. ESRD -Dialysis today per Dr. Dominguez due to stable BP -Procrit 10,000 M/W/F -Albumin 25g M/W/F for better BP control -Nephro consult, Dr. Dominguez 3. Hypotension -resolving -Levo 1mcg, ween as tolerated -dialyze as tolerated 4. DM -tube feeds (Nepro), goal 45ml/hr -ISS -Hypoglycemic protocol 5. HIV -Truvada 200/300mg Ppx GI-Pepcid 20mg DVT-Heparin 5000SC Q8 [address]iscuss[address] attending [address] Bonilla <Glenny Bonilla - Last Filed: 02/03/18 09:11> CCU Objective - Vital Signs / Intake & Output Vital Signs (Last 4 hours): Vital Signs Temp Pulse Resp BP Pulse Ox 02/03/18 08:57 98.2 F 70 21 109/71 95 Intake and Output (Last 8hrs): Intake & Output 02/02/18 02/03/18 02/03/18 22:59 06:59 14:59 Intake Total 100 100 Balance 100 100 Intake: Oral 100 100 Other: # Voids Urine, Voided 0 0 - Medications Active Medications: Active Medications Generic Name Dose Route Start Last Admin Trade Name Freq PRN Reason Stop Dose Admin Acetaminophen 650 mg 01/22/18 14:22 01/28/18 10:21 Tylenol 325mg Tab PO 650 mg Q6 PRN Administration Fever >100.4 F Albumin Human 25 gm 01/27/18 12:30 01/31/18 19:55 Albumin Human 25% (12.5 Gm/50 Ml) IV 25 gm MWF [facility] Administration Alprazolam 0.25 mg 01/27/18 19:29 02/02/18 00:12 Xanax PO 02/03/18 19:30 0.25 mg HS PRN Administration Anxiety Dextrose 0 ml 01/22/18 16:27 Dextrose 50% Inj IV STAT PRN Hypoglycemia Protocol Protocol Dextrose 0 gm 01/22/18 16:27 Glutose 15 PO ONCE PRN Hypoglycemia Protocol Protocol Emtricitabine/Tenofovir 1 tab 01/22/18 14:30 02/03/18 09:07 Truvada 200 Mg-300 Mg PO 1 tab Q48H [facility] Administration Protocol Epoetin Alonso 10,000 unit 01/24/18 09:00 01/31/18 18:00 Procrit IV 10,000 unit [facility] Administration Famotidine 20 mg 01/26/18 10:00 02/03/18 09:00 Pepcid PO 20 mg DAILY [facility] Administration Glucagon 0 mg 01/22/18 16:27 Glucagen Diagnostic Kit IM STAT PRN Hypoglycemia Protocol Protocol Heparin Sodium (Porcine) 5,000 units 02/01/18 14:00 02/03/18 05:04 Heparin SC 5,000 units Q8 [facility] Administration Vancomycin/Sodium Chloride 1 gm in 200 mls @ 133.333 mls/hr 01/29/18 10:00 09:34 Vancomycin 1 Gm/Ns 200 Ml IVPB 02/03/18 10:01 133.333 mls/hr [facility] Administration Protocol Meropenem 500 mg/ Sodium 100 mls @ 100 mls/hr 01/28/18 22:00 02/02/18 21:58 Chloride IVPB Not Given Q12H [facility]INA Protocol Insulin Human Regular 0 unit 01/29/18 11:30 02/03/18 07:44 Novolin R SC Not Given ACHS [facility]INA Protocol Lactobacillus Acidophilus 1 cap 01/26/18 10:00 02/03/18 09:00 Bacid Acidophilus PO 1 cap BID [facility] Administration Midodrine 5 mg 01/24/18 10:00 02/03/18 09:01 Proamatine PO 5 mg TID [facility] Administration Potassium Chloride 20 meq 01/31/18 10:00 02/03/18 09:00 K-Dur 20 Meq Er Tab PO 20 meq DAILY [facility] Administration Prednisone 20 mg 02/01/18 14:15 02/03/18 09:00 Prednisone Tab PO 20 mg DAILY [facility] Administration Sevelamer Carbonate 0.8 gm 01/27/18 09:15 02/03/18 09:00 Renvela NG 0.8 gm TIDCC [facility] Administration Tramadol HCl 50 mg 01/28/18 10:08 02/02/18 04:02 Ultram PO 50 mg TID PRN Administration Pain, moderate (4-7) Vitamin B Complex/Vit C/Folic Acid 1 tab 01/23/18 10:00 02/03/18 09:00 Nephro-Carlos PO 1 tab DAILY [facility] Administration - Patient Studies Lab Studies: Microbiology Studies 01/30/18 05:12 MRSA Culture (Admit) - Final Naris MRSA NOT DETECTED Lab Studies 02/02/18 02/02/18 02/02/18 Range/Units 16:13 14:10 11:24 Sodium 136 (132-148) mmol/L Potassium 4.4 (3.6-5.2) mmol/L Chloride 99 (98-107) mmol/L Carbon Dioxide 28 (22-30) mmol/L Anion Gap 13 (10-20) BUN 40 H (7-17) mg/dL Creatinine 4.0 H (0.7-1.2) mg/dL Est GFR ( Amer) 14 Est GFR (Non-Af Amer) 12 POC Glucose (mg/dL) 250 H 126 H (65-110) mg/dL Random Glucose 177 H (65-105) mg/dL Calcium 7.8 L (8.6-10.4) mg/dl Laboratory Results - last 24 hr 02/02/18 02/02/18 02/02/18 11:24 14:10 16:13 Sodium 136 Potassium 4.4 Chloride 99 Carbon Dioxide 28 Anion Gap 13 BUN 40 H Creatinine 4.0 H Est GFR ( Amer) 14 Est GFR (Non-Af Amer) 12 POC Glucose (mg/dL) 126 H 250 H Random Glucose 177 H Calcium 7.8 L Critical Care Progress Note - Nutrition Nutrition: Nutrition Category Date Time Status Renal Diet [DIET] Diets 01/31/18 Breakfast Active Attending/Attestation - Attestation I have personally seen and examined this patient.: Yes I have fully participated in the care of the patient.: Yes I have reviewed all pertinent clinical information: Yes Notes (Text): pt is seen examined and reviewed with resident and agree with note
--- NOTE | 2018-01-27 16:56 | VASCLAB ---
PROCEDURE: Right Upper Extremity Venous Duplex Exam HISTORY: Right arm edema/swelling,r/o dvt PRIORS: No prior. TECHNIQUE: Right upper extremity, internal jugular, subclavian, axillary, brachial, ulnar, radial, basilic and upper cephalic veins were evaluated. Flow was assessed with color Doppler, compressibility, assessment of phasic flow and augmentation response. Report prepared by VALERIE Granger FINDINGS: RIGHT: 1. Internal Jugular: 1.1. Compressibility - Fully compressible: Thrombus - None : Flow - Phasic: Augmentation -Normal: Reflux - None. 2. Subclavian: 2.1. Compressibility - Fully compressible: Thrombus - None : Flow - Phasic: Augmentation -Normal: Reflux - None. 3. Axillary: 3.1. Compressibility - Fully compressible: Thrombus - None : Flow - Phasic: Augmentation -Normal: Reflux - None. 4. Brachial: 4.1. Compressibility - Fully compressible: Thrombus - None: Flow - Phasic: Augmentation -Normal: Reflux - None. 5. Ulnar: 5.1. Compressibility - Fully compressible: Thrombus - None: Flow - Phasic: Augmentation -Normal: Reflux - None. 6. Radial: 6.1. Compressibility - Fully compressible: Thrombus - None: Flow - Phasic: Augmentation - Normal: Reflux - None. 7. Cephalic: 7.1. Compressibility - Fully compressible: Thrombus - None: Flow - Phasic: Augmentation -Normal: Reflux - None. 8. Basilic: 8.1. Not visualized. OTHER FINDINGS: Right: None. IMPRESSION: Right: No evidence of vein thrombosis of the right upper extremity with excellent venous flow. Normal valve function noted of the right side. Normal venous flow noted in the left internal jugular vein.
--- NOTE | 2018-01-27 18:17 | CP.PCM.PN ---
Subjective - Date & Time of Evaluation Date of Evaluation: 01/27/18 Time of Evaluation: 03:00 - Subjective Subjective: dictated Objective - Vital Signs/Intake and Output Vital Signs (last 24 hours): Temp Pulse Resp BP Pulse Ox 97.4 F L 76 0 L 81/46 L 100 01/27/18 16:00 01/27/18 18:00 01/27/18 18:00 01/27/18 18:00 01/27/18 18:00 Intake and Output: 01/27/18 01/27/18 06:59 18:59 Intake Total 1121.6 1186.3 Balance 1121.6 1186.3 - Medications Medications: Current Medications Acetaminophen (Tylenol 325mg Tab) 650 mg PO Q6 PRN PRN Reason: Fever >100.4 F Last Admin: 01/25/18 09:48 Dose: 650 mg Acetaminophen (Tylenol 325mg Tab) 650 mg PO Q6 PRN PRN Reason: Pain, Mild (1-3) Albumin Human (Albumin Human 25% (12.5 Gm/50 Ml)) 25 gm IV MWF [facility] Dextrose (Dextrose 50% Inj) 0 ml IV STAT PRN; Protocol PRN Reason: Hypoglycemia Protocol Dextrose (Glutose 15) 0 gm PO ONCE PRN; Protocol PRN Reason: Hypoglycemia Protocol Emtricitabine/Tenofovir (Truvada 200 Mg-300 Mg) 1 tab PO Q48H [facility] PRN Reason: Protocol Last Admin: 01/26/18 14:16 Dose: 1 tab Epoetin Alonso (Procrit) 10,000 unit IV MWF [facility] Last Admin: 01/24/18 17:15 Dose: 10,000 unit Famotidine (Pepcid) 20 mg PO DAILY [facility] Last Admin: 01/27/18 09:13 Dose: 20 mg Glucagon (Glucagen Diagnostic Kit) 0 mg IM STAT PRN; Protocol PRN Reason: Hypoglycemia Protocol Heparin Sodium (Porcine) (Heparin) 5,000 units SC Q8 [facility] Hydrocortisone Sodium Succinate (Solu-Cortef) 100 mg IV Q12H [facility] Last Admin: 01/27/18 09:13 Dose: 100 mg Hydromorphone HCl (Dilaudid) 0.5 mg IVP Q6H PRN PRN Reason: Pain, moderate (4-7) Last Admin: 01/27/18 14:09 Dose: 0.5 mg Meropenem 500 mg/ Sodium (Chloride) 100 mls @ 100 mls/hr IVPB Q12 [facility]INA PRN Reason: Protocol Last Admin: 01/27/18 09:05 Dose: 100 mls/hr Norepinephrine Bitartrate 4 mg (/ Sodium Chloride) 250 mls @ 15 mls/hr IV .[id number] PRN; Protocol; 4 MCG/MIN PRN Reason: TITRATE PER MD ORDER Last Titration: 01/27/18 09:00 Dose: 1 mcg/min, 3.75 mls/hr Gentamicin Sulfate 80 mg/ (Sodium Chloride) 102 mls @ 100 mls/hr IVPB MWF [facility] PRN Reason: Protocol Last Admin: 01/27/18 09:04 Dose: 100 mls/hr Insulin Human Regular (Novolin R) 0 unit SC Q6 [facility]INA PRN Reason: Protocol Last Admin: 01/27/18 17:49 Dose: 6 u Lactobacillus Acidophilus (Bacid Acidophilus) 1 cap PO BID [facility] Last Admin: 01/27/18 17:03 Dose: 1 cap Midodrine (Proamatine) 5 mg PO TID [facility] Last Admin: 01/27/18 17:03 Dose: 5 mg Sevelamer Carbonate (Renvela) 0.8 gm NG TIDCC [facility] Last Admin: 01/27/18 17:02 Dose: 0.8 gm Vitamin B Complex/Vit C/Folic Acid (Nephro-Carlos) 1 tab PO DAILY [facility] Last Admin: 01/27/18 10:00 Dose: 1 tab - Labs Labs: 01/27/18 06:13 01/27/18 06:13 PT 11.1 SECONDS (9.7-12.2) 01/22/18 12:20 INR 1.0 01/22/18 12:20 APTT 27 SECONDS (21-34) 01/22/18 12:20
[2018-01-27] MEDS: Albumin Human 25% (12.5 gm/50 ml) IV SCH ×2 (18:35→19:19)
[2018-01-27] MEDS: Epoetin Alfa 10,000 unit/ml Dialysis IV SCH (20:30)
--- NOTE | 2018-01-28 00:03 | PN ---
DATE: 01/27/2018 SUBJECTIVE: The patient is still on low-dose Levophed. She is blind in the left eye. She is poorly responsive, but awake. PHYSICAL EXAMINATION: VITAL SIGNS: T-max is 97.4, pulse 76, blood pressure was 85/41, . She was going to get dialysis. She has a catheter. NECK: Supple. LUNGS: Clear. No crackles or rales present. HEART: S1 and S2 are regular. ABDOMEN: Soft, nontender. 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 LABORATORY DATA: Labs are noted. White count is still 16.7, hemoglobin 10.1, hematocrit 31, and platelet count is 359. Sodium is 134, potassium is 4.4, chlorides are 97, CO2 is 26, creatinine is 5.6, BUN is 97. She is a dialysis patient. She is also HIV positive. Cultures: Blood culture which was venous done two sets on 01/22/2018, both showed coagulase-negative Staph, and it is a pretty bad sensitivity with vancomycin too. The wound which they have already excised showed Enterobacter and Pseudomonas. ASSESSMENT AND PLAN: We have left her on vancomycin, Merrem, and gentamicin. Since her cultures were positive, I am going to discuss with Dr. Sinclair if the catheter needs to be changed, but she does not have many sites where the catheter can be placed. On 01/26/2018, the blood cultures are coming out negative so far. We will see. We will continue present antibiotics and check with vascular surgeon. The patient came in with a necrotic left leg stump, and she has peripheral vascular disease. She is diabetic. She has end-stage renal disease. She is human immunodeficiency virus positive. She was hypotensive when she came and still was on Levophed when I saw her. Tammy Villegas MD
[2018-01-28] MEDS: (Novolin R) Insulin Human Regular 100 units/ml vial SC SCH ×3 (00:30→18:14)
--- NOTE | 2018-01-28 00:39 | CARD ---
APPROVED REPORT EXAM: LIMITED Two-dimensional and color doppler echocardiogram. Other Information Quality : GoodRhythm : INDICATION Infection:Rule out subacute bacterial endocarditis HIV/ ESRD AORTIC VALVE The aortic valve is mildly to moderately sclerotic. The aortic valve is trileaflet. There is mild aortic regurgitation. There is no aortic valvular stenosis. Cannot exclude aortic valvular vegetation. MITRAL VALVE Mitral annular calcification is moderate. The mitral valve leaflets are thickened. There is a mobile echogenic density on the anterior mitral valve leaflet. cannot exclude vegetation. There is no evidence of mitral valve prolapse. There is no mitral valve stenosis. TRICUSPID VALVE The tricuspid valve leaflets are thickened or calcified, but open well. There is mild tricuspid regurgitation. There is no tricuspid valve prolapse or vegetation. There is no tricuspid valve stenosis. PULMONIC VALVE The pulmonic valve is not well visualized. There is trace pulmonic valvular regurgitation. <Conclusion> Limited study to r/o bacterial endocarditis There is mild aortic regurgitation. The mitral valve leaflets are thickened. There is a mobile echogenic density on the anterior mitral valve leaflet consistent with probable vegetation. There is mild tricuspid regurgitation. There is trace pulmonic valvular regurgitation.
[2018-01-28] MEDS: HYDROmorphone 0.5 mg/0.5 ml ISec IVP PRN (05:45)
--- NOTE | 2018-01-28 06:27 | CARD ---
APPROVED REPORT EKG Measurement Heart [id number] <Conclusion> Sinus tachycardia with occasional premature ventricular complexes Cannot rule out Anterior infarct, age undetermined Abnormal ECG
[2018-01-28 06:31] LABS: HEMOGLOBIN 9.4 g/dL (11.0-16.0); MEAN CELL VOLUME 90.4 fL (81.0-99.0); MEAN CORPUSCULAR HGB CONC 33.1 g/dL (33.0-37.0); MEAN PLATELET VOLUME 8.5 fL (7.2-11.7); RBC 3.13 Mil/uL (3.80-5.20); RED CELL DISTRIBUTION WIDTH 17.7 % (11.5-14.5); WHITE BLOOD COUNT 15.8 K/uL (4.8-10.8)
[2018-01-28 06:38] LABS: ALB/GLOB RATIO 0.8 (1.0-2.1); ALBUMIN 2.8 g/dL (3.5-5.0); CALCIUM 9.8 mg/dl (8.6-10.4)
--- NOTE | 2018-01-28 08:40 | CP.CCUPN ---
<Leelee Almeida - Last Filed: 01/28/18 15:54> CCU Subjective - Physician Review Subjective (Free Text): 01/27/18 14:19 58 yo female with PMHx of HLD, HTN, HIV, ESRD (dialysis M/W/F), IDDM, PAD, 4 days s/p L AKA revision 2/2 gangrenous stump infection, admitted to ICU for pressure support 2/2 to sepsis and bacteremia. No acute events overnight. Patient is altered and unable to communicate. Pt continues to have loose green stools. Patient was only able to undergo 2.5 hrs of dialysis yesterday evening due to permacath failure. Levo held at 5am and tolerating well, BP stable 01/28/18 08:37 Critical Care Time Spent (in minutes): 45 CCU Objective - Vital Signs / Intake & Output Vital Signs (Last 4 hours): Vital Signs Pulse Resp BP Pulse Ox 01/28/18 07:19 70 109/48 L 100 01/28/18 06:01 75 12 91/40 L 100 01/28/18 05:01 78 12 111/53 L 100 Intake and Output (Last 8hrs): Intake & Output 01/27/18 01/28/18 01/28/18 22:59 06:59 14:59 Intake Total 680.4 417.8 40 Balance 680.4 417.8 40 Weight 160 lb 14.999 oz Intake: IV 75 Intake, IV Amount 130.4 22.8 Right Antecubital 100 Right Subclavian 30.4 22.8 Oral 130 Tube Feeding 320 320 40 Other 100 Other: # Bowel Movements 1 2 - Physical Exam Physical Exam Limitations: Positive for: Altered Mental Status Head: Positive for: Atraumatic, Normocephalic Pupils: Positive for: PERRL Extroacular Muscles: Positive for: EOMI Conjunctiva: Positive for: Normal Mouth: Positive for: Dry Respiratory/Chest: Positive for: Clear to Auscultation. Negative for: Wheezes, Rhonchi Cardiovascular: Positive for: Regular Rate and Rhythm. Negative for: Murmurs Abdomen: Positive for: Normal Bowel Sounds. Negative for: Tenderness, Distention Upper Extremity: Positive for: Normal Inspection, Other (left AVF - no thrill noted ) Lower Extremity: Positive for: Other (B/L AKA. Left bandaged CDI). Negative for: Normal Inspection Skin: Positive for: Warm, Dry, Other (L AKA incision site, non erythematous, no drainage, bandage CDI) Psychiatric: Positive for: Lethargic - Medications Active Medications: Active Medications Generic Name Dose Route Start Last Admin Trade Name Freq PRN Reason Stop Dose Admin Acetaminophen 650 mg 01/22/18 14:22 01/25/18 09:48 Tylenol 325mg Tab PO 650 mg Q6 PRN Administration Fever >100.4 F Acetaminophen 650 mg 01/22/18 14:38 Tylenol 325mg Tab PO Q6 PRN Pain, Mild (1-3) Albumin Human 25 gm 01/27/18 12:30 01/27/18 19:19 Albumin Human 25% (12.5 Gm/50 Ml) IV 12.5 gm MWF [facility] Administration Alprazolam 0.25 mg 01/27/18 19:29 01/27/18 22:05 Xanax PO 02/03/18 19:30 0.25 mg HS PRN Administration Anxiety Dextrose 0 ml 01/22/18 16:27 Dextrose 50% Inj IV STAT PRN Hypoglycemia Protocol Protocol Dextrose 0 gm 01/22/18 16:27 Glutose 15 PO ONCE PRN Hypoglycemia Protocol Protocol Emtricitabine/Tenofovir 1 tab 01/22/18 14:30 01/26/18 14:16 Truvada 200 Mg-300 Mg PO 1 tab Q48H KATARINA Administration Protocol Epoetin Alonso 10,000 unit 01/24/18 09:00 01/27/18 20:30 Procrit IV 10,000 unit MWF [facility] Administration Famotidine 20 mg 01/26/18 10:00 01/27/18 09:13 Pepcid PO 20 mg DAILY K[facility]INA Administration Glucagon 0 mg 01/22/18 16:27 Glucagen Diagnostic Kit IM STAT PRN Hypoglycemia Protocol Protocol Heparin Sodium (Porcine) 5,000 units 01/27/18 22:00 01/28/18 05:00 Heparin SC 5,000 units Q8 K[facility]INA Administration Hydrocortisone Sodium Succinate 100 mg 01/25/18 10:00 01/27/18 22:05 Solu-Cortef IV 100 mg Q12H KATARINA Administration Hydromorphone HCl 0.5 mg 01/24/18 08:47 01/28/18 05:45 Dilaudid IVP 0.5 mg Q6H PRN Administration Pain, moderate (4-7) Meropenem 500 mg/ Sodium 100 mls @ 100 mls/hr 01/23/18 10:00 01/27/18 21:30 Chloride IVPB 100 mls/hr Q12 K[facility]INA Administration Protocol Norepinephrine Bitartrate 4 mg 250 mls @ 15 mls/hr 01/25/18 09:30 01/28/18 05 :00 / Sodium Chloride IV 0 mcg/min .[id number] PRN 0 mls/hr TITRATE PER MD ORDER Titration Protocol 4 MCG/MIN Gentamicin Sulfate 80 mg/ 102 mls @ 100 mls/hr 01/27/18 09:00 01/27/18 09:04 Sodium Chloride IVPB 100 mls/hr [facility] Administration Protocol Vancomycin/Sodium Chloride 1 gm in 200 mls @ 133.333 mls/hr 01/29/18 10:00 Vancomycin 1 Gm/Ns 200 Ml IVPB 02/03/18 10:01 [facility] Protocol Insulin Human Regular 0 unit 01/24/18 12:00 01/28/18 05:45 Novolin R SC 4 u Q6 K[facility]INA Administration Protocol Lactobacillus Acidophilus 1 cap 01/26/18 10:00 01/27/18 17:03 Bacid Acidophilus PO 1 cap BID K[facility]ARINA Administration Midodrine 5 mg 01/24/18 10:00 01/27/18 17:03 Proamatine PO 5 mg TID KATARINA Administration Sevelamer Carbonate 0.8 gm 01/27/18 09:15 01/27/18 17:02 Renvela NG 0.8 gm TIDCC K[facility]INA Administration Vitamin B Complex/Vit C/Folic Acid 1 tab 01/23/18 10:00 01/27/18 10:00 Nephro-Carlos PO 1 tab DAILY [facility]INA Administration - Patient Studies Lab Studies: Microbiology Studies 01/26/18 11:37 Blood Culture - Preliminary Blood NO GROWTH AFTER 24 HOURS Lab Studies 01/28/18 01/28/18 01/28/18 Range/Units 06:16 06:15 06:15 WBC 15.8 H (4.8-10.8) K/uL RBC 3.13 L (3.80-5.20) Mil/uL Hgb 9.4 L (11.0-16.0) g/dL Hct 28.3 L (34.0-47.0) % MCV 90.4 (81.0-99.0) fL MCH 30.0 (27.0-31.0) pg MCHC 33.1 (33.0-37.0) g/dL RDW 17.7 H (11.5-14.5) % Plt Count 317 (130-400) K/uL MPV 8.5 (7.2-11.7) fL Sodium 136 (132-148) mmol/L Potassium 3.6 (3.6-5.2) mmol/L Chloride 99 (98-107) mmol/L Carbon Dioxide 28 (22-30) mmol/L Anion Gap 13 (10-20) BUN 71 H (7-17) mg/dL Creatinine 4.1 H (0.7-1.2) mg/dL Est GFR ( Amer) 14 Est GFR (Non-Af Amer) 11 POC Glucose (mg/dL) (65-110) mg/dL Random Glucose 221 H (65-105) mg/dL Calcium 9.8 (8.6-10.4) mg/dl Phosphorus 3.2 (2.5-4.5) mg/dL Magnesium 2.6 H (1.6-2.3) mg/dL Total Bilirubin 0.4 (0.2-1.3) mg/dL AST 84 H D (14-36) U/L ALT 45 (9-52) U/L Alkaline Phosphatase 265 H (38-126) U/L Total Protein 6.2 L (6.3-8.3) g/dL Albumin 2.8 L (3.5-5.0) g/dL Globulin 3.4 (2.2-3.9) gm/dL Albumin/Globulin Ratio 0.8 L (1.0-2.1) 25-OH Vitamin D Total 37.2 (30.0-100.0) NG/ML 01/28/18 01/27/18 01/27/18 Range/Units 05:35 23:49 17:31 WBC (4.8-10.8) K/uL RBC (3.80-5.20) Mil/uL Hgb (11.0-16.0) g/dL Hct (34.0-47.0) % MCV (81.0-99.0) fL MCH (27.0-31.0) pg MCHC (33.0-37.0) g/dL RDW (11.5-14.5) % Plt Count (130-400) K/uL MPV (7.2-11.7) fL Sodium (132-148) mmol/L Potassium (3.6-5.2) mmol/L Chloride (98-107) mmol/L Carbon Dioxide (22-30) mmol/L Anion Gap (10-20) BUN (7-17) mg/dL Creatinine (0.7-1.2) mg/dL Est GFR ( Amer) Est GFR (Non-Af Amer) POC Glucose (mg/dL) 219 H 201 H 274 H (65-110) mg/dL Random Glucose (65-105) mg/dL Calcium (8.6-10.4) mg/dl Phosphorus (2.5-4.5) mg/dL Magnesium (1.6-2.3) mg/dL Total Bilirubin (0.2-1.3) mg/dL AST (14-36) U/L ALT (9-52) U/L Alkaline Phosphatase (38-126) U/L Total Protein (6.3-8.3) g/dL Albumin (3.5-5.0) g/dL Globulin (2.2-3.9) gm/dL Albumin/Globulin Ratio (1.0-2.1) 25-OH Vitamin D Total (30.0-100.0) NG/ML 01/27/18 Range/Units 11:37 WBC (4.8-10.8) K/uL RBC (3.80-5.20) Mil/uL Hgb (11.0-16.0) g/dL Hct (34.0-47.0) % MCV (81.0-99.0) fL MCH (27.0-31.0) pg MCHC (33.0-37.0) g/dL RDW (11.5-14.5) % Plt Count (130-400) K/uL MPV (7.2-11.7) fL Sodium (132-148) mmol/L Potassium (3.6-5.2) mmol/L Chloride (98-107) mmol/L Carbon Dioxide (22-30) mmol/L Anion Gap (10-20) BUN (7-17) mg/dL Creatinine (0.7-1.2) mg/dL Est GFR ( Amer) Est GFR (Non-Af Amer) POC Glucose (mg/dL) 210 H (65-110) mg/dL Random Glucose (65-105) mg/dL Calcium (8.6-10.4) mg/dl Phosphorus (2.5-4.5) mg/dL Magnesium (1.6-2.3) mg/dL Total Bilirubin (0.2-1.3) mg/dL AST (14-36) U/L ALT (9-52) U/L Alkaline Phosphatase (38-126) U/L Total Protein (6.3-8.3) g/dL Albumin (3.5-5.0) g/dL Globulin (2.2-3.9) gm/dL Albumin/Globulin Ratio (1.0-2.1) 25-OH Vitamin D Total (30.0-100.0) NG/ML Laboratory Results - last 24 hr 01/27/18 01/27/18 01/27/18 11:37 17:31 23:49 WBC RBC Hgb Hct MCV MCH MCHC RDW Plt Count MPV Sodium Potassium Chloride Carbon Dioxide Anion Gap BUN Creatinine Est GFR ( Amer) Est GFR (Non-Af Amer) POC Glucose (mg/dL) 210 H 274 H 201 H Random Glucose Calcium Phosphorus Magnesium Total Bilirubin AST ALT Alkaline Phosphatase Total Protein Albumin Globulin Albumin/Globulin Ratio 25-OH Vitamin D Total 01/28/18 01/28/18 01/28/18 05:35 06:15 06:15 WBC RBC Hgb Hct MCV MCH MCHC RDW Plt Count MPV Sodium 136 Potassium 3.6 Chloride 99 Carbon Dioxide 28 Anion Gap 13 BUN 71 H Creatinine 4.1 H Est GFR ( Amer) 14 Est GFR (Non-Af Amer) 11 POC Glucose (mg/dL) 219 H Random Glucose 221 H Calcium 9.8 Phosphorus 3.2 Magnesium 2.6 H Total Bilirubin 0.4 AST 84 H D ALT 45 Alkaline Phosphatase 265 H Total Protein 6.2 L Albumin 2.8 L Globulin 3.4 Albumin/Globulin Ratio 0.8 L 25-OH Vitamin D Total 37.2 01/28/18 06:16 WBC 15.8 H RBC 3.13 L Hgb 9.4 L Hct 28.3 L MCV 90.4 MCH 30.0 MCHC 33.1 RDW 17.7 H Plt Count 317 MPV 8.5 Sodium Potassium Chloride Carbon Dioxide Anion Gap BUN Creatinine Est GFR ( Amer) Est GFR (Non-Af Amer) POC Glucose (mg/dL) Random Glucose Calcium Phosphorus Magnesium Total Bilirubin AST ALT Alkaline Phosphatase Total Protein Albumin Globulin Albumin/Globulin Ratio 25-OH Vitamin D Total Fingerstick Blood Sugar Results: 219 Review of Systems - Review of Systems Systems not reviewed;Unavailable: Altered Mental Status Critical Care Progress Note - Ventilator Checklist DVT Prophylaxis: Yes (Heparin) - Prophylaxis GI Prophylaxis GI: Pepsid - Prophylaxis DVT Prophylaxis DVT: Heparin SQ - Nutrition Nutrition: Nutrition Category Date Time Status NPO Diet [DIET] Diets 01/23/18 Breakfast Active Assessment/Plan - Assessment and Plan (Free Text) Plan: 58 yo female with PMHx of HLD, HTN, HIV, ESRD (dialysis M/W/F), IDDM, PAD, 4 days s/p L AKA revision 2/2 gangrenous stump infection, admitted to ICU for pressure support 2/2 to sepsis and bacteremia. 1. Septic shock 2/2 to infected(pseudomonas, enterobacter clocae) L AKA revision and bacteremia(coag - staph) -IV Abx-Merrem 500 Q12, Vanco 1g M/W/F, Gentamicin 80mg M/W/F -pain control-Acetaminophen 650mg Q6 PRN, Tramadol 50mg TID NG, hold dilaudid to maintain BP, assess pain -ID consult, Bakari Herrera Sadhna 2. ESRD -incomplete dialysis 01/27 due to permacath failure -Procrit 10,000 M/W/F -Albumin 25g M/W/F for better BP control -Nephro consult, Dr. Dominguez 3. Hypotension -resolving -weened off Levo -dialyze as tolerated 4. DM -tube feeds (Nepro), decreased to 15-20/hr -ISS -Taper down solu-cortef 50mg Q12 -Hypoglycemic protocol 5. HIV -Truvada 200/300mg Ppx GI-Pepcid 20mg DVT-Heparin 5000SC Q8 Discussed with attending Dr[address] Machado <Rajinder Machado - Last Filed: 01/28/18 17:03> CCU Objective - Vital Signs / Intake & Output Intake and Output (Last 8hrs): Intake & Output 01/28/18 01/28/18 01/28/18 06:59 14:59 22:59 Intake Total 417.8 410 Output Total 0 Balance 417.8 410 Weight 160 lb Intake: IV 75 Intake, IV Amount 22.8 100 Right Subclavian 22.8 100 Oral 200 Tube Feeding 320 110 Output: Urine 0 Urine, Voided 0 Other: # Bowel Movements 2 1 - Medications Active Medications: Active Medications Generic Name Dose Route Start Last Admin Trade Name Freq PRN Reason Stop Dose Admin Acetaminophen 650 mg 01/22/18 14:22 01/28/18 10:21 Tylenol 325mg Tab PO 650 mg Q6 PRN Administration Fever >100.4 F Acetaminophen 650 mg 01/22/18 14:38 Tylenol 325mg Tab PO Q6 PRN Pain, Mild (1-3) Albumin Human 25 gm 01/27/18 12:30 01/27/18 19:19 Albumin Human 25% (12.5 Gm/50 Ml) IV 12.5 gm MWF K[facility]INA Administration Alprazolam 0.25 mg 01/27/18 19:29 01/27/18 22:05 Xanax PO 02/03/18 19:30 0.25 mg HS PRN Administration Anxiety Dextrose 0 ml 01/22/18 16:27 Dextrose 50% Inj IV STAT PRN Hypoglycemia Protocol Protocol Dextrose 0 gm 01/22/18 16:27 Glutose 15 PO ONCE PRN Hypoglycemia Protocol Protocol Emtricitabine/Tenofovir 1 tab 01/22/18 14:30 01/26/18 14:16 Truvada 200 Mg-300 Mg PO 1 tab Q48H KATARINA Administration Protocol Epoetin Alonso 10,000 unit 01/24/18 09:00 01/27/18 20:30 Procrit IV 10,000 unit MWF K[facility]INA Administration Famotidine 20 mg 01/26/18 10:00 01/28/18 10:21 Pepcid PO 20 mg DAILY KATARINA Administration Glucagon 0 mg 01/22/18 16:27 Glucagen Diagnostic Kit IM STAT PRN Hypoglycemia Protocol Protocol Heparin Sodium (Porcine) 5,000 units 01/27/18 22:00 01/28/18 05:00 Heparin SC 5,000 units Q8 KATARINA Administration Hydrocortisone Sodium Succinate 50 mg 01/28/18 10:07 01/28/18 10:24 Solu-Cortef IV 50 mg Q12H KATARINA Administration Hydromorphone HCl 0.5 mg 01/24/18 08:47 01/28/18 05:45 Dilaudid IVP 0.5 mg Q6H PRN Administration Pain, moderate (4-7) Norepinephrine Bitartrate 4 mg 250 mls @ 15 mls/hr 01/25/18 09:30 01/28/18 05 :00 / Sodium Chloride IV 0 mcg/min .[id number] PRN 0 mls/hr TITRATE PER MD ORDER Titration Protocol 4 MCG/MIN Gentamicin Sulfate 80 mg/ 102 mls @ 100 mls/hr 01/27/18 09:00 01/27/18 09:04 Sodium Chloride IVPB 100 mls/hr [facility] Administration Protocol Vancomycin/Sodium Chloride 1 gm in 200 mls @ 133.333 mls/hr 01/29/18 10:00 Vancomycin 1 Gm/Ns 200 Ml IVPB 02/03/18 10:01 [facility] Protocol Meropenem 500 mg/ Sodium 100 mls @ 100 mls/hr 01/28/18 17:00 Chloride IVPB Q12H [facility] Protocol Insulin Human Regular 0 unit 01/24/18 12:00 01/28/18 05:45 Novolin R SC 4 u Q6 KATARINA Administration Protocol Lactobacillus Acidophilus 1 cap 01/26/18 10:00 01/28/18 10:20 Bacid Acidophilus PO 1 cap BID KATARINA Administration Midodrine 5 mg 01/24/18 10:00 01/28/18 10:20 Proamatine PO 5 mg TID KATARINA Administration Sevelamer Carbonate 0.8 gm 01/27/18 09:15 01/28/18 10:21 Renvela NG 0.8 gm TIDCC KATARINA Administration Tramadol HCl 50 mg 01/28/18 10:08 Ultram PO TID PRN Pain, moderate (4-7) Vitamin B Complex/Vit C/Folic Acid 1 tab 01/23/18 10:00 01/28/18 10:21 Nephro-Carlos PO 1 tab DAILY KATARINA Administration - Patient Studies Lab Studies: Microbiology Studies 01/26/18 11:37 Blood Culture - Preliminary Blood NO GROWTH AFTER 48 HOURS Lab Studies 01/28/18 01/28/18 01/28/18 Range/Units 11:37 10:40 06:16 WBC 15.8 H (4.8-10.8) K/uL RBC 3.13 L (3.80-5.20) Mil/uL Hgb 9.4 L (11.0-16.0) g/dL Hct 28.3 L (34.0-47.0) % MCV 90.4 (81.0-99.0) fL MCH 30.0 (27.0-31.0) pg MCHC 33.1 (33.0-37.0) g/dL RDW 17.7 H (11.5-14.5) % Plt Count 317 (130-400) K/uL MPV 8.5 (7.2-11.7) fL Sodium (132-148) mmol/L Potassium (3.6-5.2) mmol/L Chloride (98-107) mmol/L Carbon Dioxide (22-30) mmol/L Anion Gap (10-20) BUN (7-17) mg/dL Creatinine (0.7-1.2) mg/dL Est GFR ( Amer) Est GFR (Non-Af Amer) POC Glucose (mg/dL) 172 H (65-110) mg/dL Random Glucose (65-105) mg/dL Calcium (8.6-10.4) mg/dl Phosphorus (2.5-4.5) mg/dL Magnesium (1.6-2.3) mg/dL Total Bilirubin (0.2-1.3) mg/dL AST (14-36) U/L ALT (9-52) U/L Alkaline Phosphatase (38-126) U/L Total Protein (6.3-8.3) g/dL Albumin (3.5-5.0) g/dL Globulin (2.2-3.9) gm/dL Albumin/Globulin Ratio (1.0-2.1) 25-OH Vitamin D Total (30.0-100.0) NG/ML C. difficile Ag & Toxin Negative (NEGATIVE) 01/28/18 01/28/18 01/28/18 Range/Units 06:15 06:15 05:35 WBC (4.8-10.8) K/uL RBC (3.80-5.20) Mil/uL Hgb (11.0-16.0) g/dL Hct (34.0-47.0) % MCV (81.0-99.0) fL MCH (27.0-31.0) pg MCHC (33.0-37.0) g/dL RDW (11.5-14.5) % Plt Count (130-400) K/uL MPV (7.2-11.7) fL Sodium 136 (132-148) mmol/L Potassium 3.6 (3.6-5.2) mmol/L Chloride 99 (98-107) mmol/L Carbon Dioxide 28 (22-30) mmol/L Anion Gap 13 (10-20) BUN 71 H (7-17) mg/dL Creatinine 4.1 H (0.7-1.2) mg/dL Est GFR ( Amer) 14 Est GFR (Non-Af Amer) 11 POC Glucose (mg/dL) 219 H (65-110) mg/dL Random Glucose 221 H (65-105) mg/dL Calcium 9.8 (8.6-10.4) mg/dl Phosphorus 3.2 (2.5-4.5) mg/dL Magnesium 2.6 H (1.6-2.3) mg/dL Total Bilirubin 0.4 (0.2-1.3) mg/dL AST 84 H D (14-36) U/L ALT 45 (9-52) U/L Alkaline Phosphatase 265 H (38-126) U/L Total Protein 6.2 L (6.3-8.3) g/dL Albumin 2.8 L (3.5-5.0) g/dL Globulin 3.4 (2.2-3.9) gm/dL Albumin/Globulin Ratio 0.8 L (1.0-2.1) 25-OH Vitamin D Total 37.2 (30.0-100.0) NG/ML C. difficile Ag & Toxin (NEGATIVE) 01/27/18 01/27/18 Range/Units 23:49 17:31 WBC (4.8-10.8) K/uL RBC (3.80-5.20) Mil/uL Hgb (11.0-16.0) g/dL Hct (34.0-47.0) % MCV (81.0-99.0) fL MCH (27.0-31.0) pg MCHC (33.0-37.0) g/dL RDW (11.5-14.5) % Plt Count (130-400) K/uL MPV (7.2-11.7) fL Sodium (132-148) mmol/L Potassium (3.6-5.2) mmol/L Chloride (98-107) mmol/L Carbon Dioxide (22-30) mmol/L Anion Gap (10-20) BUN (7-17) mg/dL Creatinine (0.7-1.2) mg/dL Est GFR ( Amer) Est GFR (Non-Af Amer) POC Glucose (mg/dL) 201 H 274 H (65-110) mg/dL Random Glucose (65-105) mg/dL Calcium (8.6-10.4) mg/dl Phosphorus (2.5-4.5) mg/dL Magnesium (1.6-2.3) mg/dL Total Bilirubin (0.2-1.3) mg/dL AST (14-36) U/L ALT (9-52) U/L Alkaline Phosphatase (38-126) U/L Total Protein (6.3-8.3) g/dL Albumin (3.5-5.0) g/dL Globulin (2.2-3.9) gm/dL Albumin/Globulin Ratio (1.0-2.1) 25-OH Vitamin D Total (30.0-100.0) NG/ML C. difficile Ag & Toxin (NEGATIVE) Laboratory Results - last 24 hr 01/27/18 01/27/18 01/28/18 17:31 23:49 05:35 WBC RBC Hgb Hct MCV MCH MCHC RDW Plt Count MPV Sodium Potassium Chloride Carbon Dioxide Anion Gap BUN Creatinine Est GFR ( Amer) Est GFR (Non-Af Amer) POC Glucose (mg/dL) 274 H 201 H 219 H Random Glucose Calcium Phosphorus Magnesium Total Bilirubin AST ALT Alkaline Phosphatase Total Protein Albumin Globulin Albumin/Globulin Ratio 25-OH Vitamin D Total C. difficile Ag & Toxin 01/28/18 01/28/18 01/28/18 06:15 06:15 06:16 WBC 15.8 H RBC 3.13 L Hgb 9.4 L Hct 28.3 L MCV 90.4 MCH 30.0 MCHC 33.1 RDW 17.7 H Plt Count 317 MPV 8.5 Sodium 136 Potassium 3.6 Chloride 99 Carbon Dioxide 28 Anion Gap 13 BUN 71 H Creatinine 4.1 H Est GFR ( Amer) 14 Est GFR (Non-Af Amer) 11 POC Glucose (mg/dL) Random Glucose 221 H Calcium 9.8 Phosphorus 3.2 Magnesium 2.6 H Total Bilirubin 0.4 AST 84 H D ALT 45 Alkaline Phosphatase 265 H Total Protein 6.2 L Albumin 2.8 L Globulin 3.4 Albumin/Globulin Ratio 0.8 L 25-OH Vitamin D Total 37.2 C. difficile Ag & Toxin 01/28/18 01/28/18 10:40 11:37 WBC RBC Hgb Hct MCV MCH MCHC RDW Plt Count MPV Sodium Potassium Chloride Carbon Dioxide Anion Gap BUN Creatinine Est GFR ( Amer) Est GFR (Non-Af Amer) POC Glucose (mg/dL) 172 H Random Glucose Calcium Phosphorus Magnesium Total Bilirubin AST ALT Alkaline Phosphatase Total Protein Albumin Globulin Albumin/Globulin Ratio 25-OH Vitamin D Total C. difficile Ag & Toxin Negative Critical Care Progress Note - Nutrition Nutrition: Nutrition Category Date Time Status Pureed [Dysphagia/Modified Consistency Diet] [DIET] Diets 01/28/18 Lunch Active Assessment/Plan (1) Post-op pain Current Visit: No Status: Acute Comment: POD 2 s/p AKA revision L leg continue IV antibiotics Patient on Levophed and dialysis is on hold Case discussed with nephrology (2) End stage renal disease Current Visit: Yes Status: Acute (3) Hypotension Current Visit: Yes Status: Acute Comment: taper off levophed as tolerated Attending/Attestation - Attestation I have personally seen and examined this patient.: Yes I have fully participated in the care of the patient.: Yes I have reviewed all pertinent clinical information: Yes Notes (Text): 01/28/18 17:00 patient seen and examined Patient is off pressors Able to eat patient is awake and responsive continue IV antibiotics
[2018-01-28] MEDS: Meropenem 500 MG in Sodium Chloride 0.9% 100 ML IVPB SCH ×2 (10:19→21:14)
[2018-01-28] MEDS: Lactobacillus Acidophilus 500 MU Cap PO SCH ×2 (10:20→18:13)
[2018-01-28] MEDS: Sevelamer Carb 0.8 gm/Packet NG SCH ×3 (10:21→18:13)
[2018-01-28] MEDS: Multivitamin Vitamin B Complex (Nephro-Vite) Tab PO SCH (10:21)
--- NOTE | 2018-01-28 15:10 | CP.PCM.PN ---
Subjective - Date & Time of Evaluation Date of Evaluation: 01/28/18 Time of Evaluation: 08:15 - Subjective Subjective: Patient seen and examined. No acute events over night. Dressing c/d/i. Objective - Vital Signs/Intake and Output Vital Signs (last 24 hours): Temp Pulse Resp BP Pulse Ox 98.1 F 80 13 81/56 L 100 01/28/18 12:00 01/28/18 11:02 01/28/18 11:02 01/28/18 11:02 01/28/18 11:02 Intake and Output: 01/28/18 01/28/18 06:59 18:59 Intake Total 823.0 410 Output Total 0 Balance 823.0 410 - Medications Medications: Current Medications Acetaminophen (Tylenol 325mg Tab) 650 mg PO Q6 PRN PRN Reason: Fever >100.4 F Last Admin: 01/28/18 10:21 Dose: 650 mg Acetaminophen (Tylenol 325mg Tab) 650 mg PO Q6 PRN PRN Reason: Pain, Mild (1-3) Albumin Human (Albumin Human 25% (12.5 Gm/50 Ml)) 25 gm IV MWF [facility] Last Admin: 01/27/18 19:19 Dose: 12.5 gm Alprazolam (Xanax) 0.25 mg PO HS PRN PRN Reason: Anxiety Stop: 02/03/18 19:30 Last Admin: 01/27/18 22:05 Dose: 0.25 mg Dextrose (Dextrose 50% Inj) 0 ml IV STAT PRN; Protocol PRN Reason: Hypoglycemia Protocol Dextrose (Glutose 15) 0 gm PO ONCE PRN; Protocol PRN Reason: Hypoglycemia Protocol Emtricitabine/Tenofovir (Truvada 200 Mg-300 Mg) 1 tab PO Q48H KATARINA PRN Reason: Protocol Last Admin: 01/26/18 14:16 Dose: 1 tab Epoetin Alonso (Procrit) 10,000 unit IV MWF [facility] Last Admin: 01/27/18 20:30 Dose: 10,000 unit Famotidine (Pepcid) 20 mg PO DAILY [facility] Last Admin: 01/28/18 10:21 Dose: 20 mg Glucagon (Glucagen Diagnostic Kit) 0 mg IM STAT PRN; Protocol PRN Reason: Hypoglycemia Protocol Heparin Sodium (Porcine) (Heparin) 5,000 units SC Q8 [facility] Last Admin: 01/28/18 05:00 Dose: 5,000 units Hydrocortisone Sodium Succinate (Solu-Cortef) 50 mg IV Q12H KATARINA Last Admin: 01/28/18 10:24 Dose: 50 mg Hydromorphone HCl (Dilaudid) 0.5 mg IVP Q6H PRN PRN Reason: Pain, moderate (4-7) Last Admin: 01/28/18 05:45 Dose: 0.5 mg Meropenem 500 mg/ Sodium (Chloride) 100 mls @ 100 mls/hr IVPB Q12 [facility] PRN Reason: Protocol Last Admin: 01/28/18 10:19 Dose: 100 mls/hr Norepinephrine Bitartrate 4 mg (/ Sodium Chloride) 250 mls @ 15 mls/hr IV .[id number] PRN; Protocol; 4 MCG/MIN PRN Reason: TITRATE PER MD ORDER Last Titration: 01/28/18 05:00 Dose: 0 mcg/min, 0 mls/hr Gentamicin Sulfate 80 mg/ (Sodium Chloride) 102 mls @ 100 mls/hr [place] [facility] [place] Reason: Protocol Last Admin: 01/27/18 09:04 Dose: 100 mls/hr Vancomycin/Sodium Chloride (Vancomycin 1 Gm/Ns 200 Ml) 1 gm in 200 mls @ 133.333 mls/hr IVPB MWF [facility] PRN Reason: Protocol Stop: 02/03/18 10:01 Insulin Human Regular (Novolin R) 0 unit SC Q6 [facility] PRN Reason: Protocol Last Admin: 01/28/18 05:45 Dose: 4 u Lactobacillus Acidophilus (Bacid Acidophilus) 1 cap PO BID [facility] Last Admin: 01/28/18 10:20 Dose: 1 cap Midodrine (Proamatine) 5 mg PO TID [facility] Last Admin: 01/28/18 10:20 Dose: 5 mg Sevelamer Carbonate (Renvela) 0.8 gm NG TIDCC [facility] Last Admin: 01/28/18 10:21 Dose: 0.8 gm Tramadol HCl (Ultram) 50 mg PO TID PRN PRN Reason: Pain, moderate (4-7) Vitamin B Complex/Vit C/Folic Acid (Nephro-Carlos) 1 tab PO DAILY [facility] Last Admin: 01/28/18 10:21 Dose: 1 tab - Labs Labs: 01/28/18 06:16 07/03/18 06:15 PT 11.1 SECONDS (9.7-12.2) 01/22/18 12:20 INR 1.0 01/22/18 12:20 APTT 27 SECONDS (21-34) 01/22/18 12:20 Assessment and Plan - Assessment and Plan (Free Text) Assessment: 58F POD#5 revision of necrotic AKA Plan: -continue with abx per ID -c/w pain meds -Local wound care -Further recs per Dr. Yahir Guillermo PG3
--- NOTE | 2018-01-28 16:41 | CP.PCM.PN ---
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 Continue with Nephrovite 1 tab/day. PRBC as needed for anemia. on KEESHA with dialysis as last Hb 9.4 Continue with phos binders, last phos level 3.2 check Vit D (37) and PTH level Patient not on RAAS leatha as BP low side. Albumin as needed with HD for low BP. maintain hemodynamics stable Glycemic control, Dialysis consistent diet Further work up/management as per primary team Dose meds/antibiotics for ESRD status. Avoid fleets enema/magnesium based laxatives. Thanks for allowing me to participate in care of your patient. Will follow patient with you. Please call if any Qs. had d/w ICU team Dr Antolin Dominguez Office: [phone] Subjective: Noted events overnight. Patients unable to provide any hx Physical Examination: General Appearance: in no acute respiratory distress, ill appearing, moaning intermittently Vitals reviewed and noted as below Head; Atraumatic, normocephalic ENT: no ulcers no thrush. Tongue is midline. Oropharynx: no rash or ulcers. EYES: left pupil opacified Neck; supple no lymphadenopathy, no thyromegaly or bruit Lungs: Normal respiratory rate/effort. Breath sounds bilateral equal and clear anteriorly Heart: Normal rate. s1s2 normal. No rub or gallop. Extremities: no edema. No varicose veins. Rt BKA. left AKA with wound dressed Neurological: Patient is non communicative and appears delirious Skin: Warm and dry. Normal turgor. No rash. Palpitation: Normal elasticity for age Abdomen: Abdomen is soft. Bowel sounds +. There is no abdominal tenderness, no guarding/rigidity or organomegaly Psych: unable MSK: no joint tenderness or swelling. Digits and nails normal, no deformity : kidney or bladder not palpable Access: Rt permacath Labs/imaging reviewed. Past medical history, past surgical history, family history, social history, allergy reviewed and noted as below Family Hx: no hx of CKD. Non contributory Objective - Vital Signs/Intake and Output Vital Signs (last 24 hours): Temp Pulse Resp BP Pulse Ox 98.1 F 80 13 81/56 L 100 01/28/18 12:00 01/28/18 11:02 01/28/18 11:02 01/28/18 11:02 01/28/18 11:02 Intake and Output: 01/28/18 01/28/18 06:59 18:59 Intake Total 823.0 410 Output Total 0 Balance 823.0 410 - Medications Medications: Current Medications Acetaminophen (Tylenol 325mg Tab) 650 mg PO Q6 PRN PRN Reason: Fever >100.4 F Last Admin: 01/28/18 10:21 Dose: 650 mg Acetaminophen (Tylenol 325mg Tab) 650 mg PO Q6 PRN PRN Reason: Pain, Mild (1-3) Albumin Human (Albumin Human 25% (12.5 Gm/50 Ml)) [facility] Admin: 01/27/18 19:19 Dose: 12.5 gm Alprazolam (Xanax) 0.25 mg PO HS PRN PRN Reason: Anxiety Stop: 02/03/18 19:30 Last Admin: 01/27/18 22:05 Dose: 0.25 mg Dextrose (Dextrose 50% Inj) 0 ml IV STAT PRN; Protocol PRN Reason: Hypoglycemia Protocol Dextrose (Glutose 15) 0 gm PO ONCE PRN; Protocol PRN Reason: Hypoglycemia Protocol Emtricitabine/Tenofovir (Truvada 200 Mg-300 Mg) 1 tab PO Q48H [facility] PRN Reason: Protocol Last Admin: 01/26/18 14:16 Dose: 1 tab Epoetin Alonso (Procrit) 10,000 unit IV MWF [facility] Last Admin: 01/27/18 20:30 Dose: 10,000 unit Famotidine (Pepcid) 20 mg PO DAILY [facility] Last Admin: 01/28/18 10:21 Dose: 20 mg Glucagon (Glucagen Diagnostic Kit) 0 mg IM STAT PRN; Protocol PRN Reason: Hypoglycemia Protocol Heparin Sodium (Porcine) (Heparin) 5,000 units SC Q8 [facility] Last Admin: 01/28/18 05:00 Dose: 5,000 units Hydrocortisone Sodium Succinate (Solu-Cortef) 50 mg IV Q12H [facility] Last Admin: 01/28/18 10:24 Dose: 50 mg Hydromorphone HCl (Dilaudid) 0.5 mg IVP Q6H PRN PRN Reason: Pain, moderate (4-7) Last Admin: 01/28/18 05:45 Dose: 0.5 mg Norepinephrine Bitartrate 4 mg (/ Sodium Chloride) 250 mls @ 15 mls/hr IV .[id number] PRN; Protocol; 4 MCG/MIN PRN Reason: TITRATE PER MD ORDER Last Titration: 01/28/18 05:00 Dose: 0 mcg/min, 0 mls/hr Gentamicin Sulfate 80 mg/ (Sodium Chloride) 102 mls @ 100 mls/hr IVPB [facility] PRN Reason: Protocol Last Admin: 01/27/18 09:04 Dose: 100 mls/hr Vancomycin/Sodium Chloride (Vancomycin 1 Gm/Ns 200 Ml) 1 gm in 200 mls @ 133.333 mls/hr IVPB [facility] PRN Reason: Protocol Stop: 02/03/18 10:01 Meropenem 500 mg/ Sodium (Chloride) 100 mls @ 100 mls/hr IVPB Q12H [facility] PRN Reason: Protocol Insulin Human Regular (Novolin R) 0 unit SC Q6 [facility] PRN Reason: Protocol Last Admin: 01/28/18 05:45 Dose: 4 u Lactobacillus Acidophilus (Bacid Acidophilus) 1 cap PO BID [facility] Last Admin: 01/28/18 10:20 Dose: 1 cap Midodrine (Proamatine) 5 mg PO TID [facility] Last Admin: 01/28/18 10:20 Dose: 5 mg Sevelamer Carbonate (Renvela) 0.8 gm NG TIDCC [facility] Last Admin: 01/28/18 10:21 Dose: 0.8 gm Tramadol HCl (Ultram) 50 mg PO TID PRN PRN Reason: Pain, moderate (4-7) Vitamin B Complex/Vit C/Folic Acid (Nephro-Carlos) 1 tab PO DAILY [facility] Last Admin: 01/28/18 10:21 Dose: 1 tab - Labs Labs: 01/28/18 06:16 01/28/18 06:15 PT 11.1 SECONDS (9.7-12.2) 01/22/18 12:20 INR 1.0 01/22/18 12:20 APTT 27 SECONDS (21-34) 01/22/18 12:20
[2018-01-28] MEDS ORDERED: Meropenem 500 MG in Sodium Chloride 0.9% 100 ML IVPB SCH (17:00)
--- NOTE | 2018-01-28 17:49 | CP.PCM.PN ---
Subjective - Date & Time of Evaluation Date of Evaluation: 01/28/18 Time of Evaluation: 03:15 - Subjective Subjective: dictated Objective - Vital Signs/Intake and Output Vital Signs (last 24 hours): Temp Pulse Resp BP Pulse Ox 98.1 F 80 13 81/56 L 100 01/28/18 12:00 01/28/18 11:02 01/28/18 11:02 01/28/18 11:02 01/28/18 11:02 Intake and Output: 01/28/18 01/28/18 06:59 18:59 Intake Total 823.0 410 Output Total 0 Balance 823.0 410 - Medications Medications: Current Medications Acetaminophen (Tylenol 325mg Tab) 650 mg PO Q6 PRN PRN Reason: Fever >100.4 F Last Admin: 01/28/18 10:21 Dose: 650 mg Acetaminophen (Tylenol 325mg Tab) 650 mg PO Q6 PRN PRN Reason: Pain, Mild (1-3) Albumin Human (Albumin Human 25% (12.5 Gm/50 Ml)) 25 gm IV MWF [facility] Last Admin: 01/27/18 19:19 Dose: 12.5 gm Alprazolam (Xanax) 0.25 mg PO HS PRN PRN Reason: Anxiety Stop: 02/03/18 19:30 Last Admin: 01/27/18 22:05 Dose: 0.25 mg Dextrose (Dextrose 50% Inj) 0 ml IV STAT PRN; Protocol PRN Reason: Hypoglycemia Protocol Dextrose (Glutose 15) 0 gm PO ONCE PRN; Protocol PRN Reason: Hypoglycemia Protocol Emtricitabine/Tenofovir (Truvada 200 Mg-300 Mg) 1 tab PO Q48H [facility] PRN Reason: Protocol Last Admin: 01/26/18 14:16 Dose: 1 tab Epoetin Alonso (Procrit) 10,000 unit IV MWF [facility] Last Admin: 01/27/18 20:30 Dose: 10,000 unit Famotidine (Pepcid) 20 mg PO DAILY [facility] Last Admin: 01/28/18 10:21 Dose: 20 mg Glucagon (Glucagen Diagnostic Kit) 0 mg IM STAT PRN; Protocol PRN Reason: Hypoglycemia Protocol Heparin Sodium (Porcine) (Heparin) 5,000 units SC Q8 [facility] Last Admin: 01/28/18 05:00 Dose: 5,000 units Hydrocortisone Sodium Succinate (Solu-Cortef) 50 mg IV Q12H [facility] Last Admin: 01/28/18 10:24 Dose: 50 mg Hydromorphone HCl (Dilaudid) 0.5 mg IVP Q6H PRN PRN Reason: Pain, moderate (4-7) Last Admin: 01/28/18 05:45 Dose: 0.5 mg Norepinephrine Bitartrate 4 mg (/ Sodium Chloride) 250 mls @ 15 mls/hr IV .[id number] PRN; Protocol; 4 MCG/MIN PRN Reason: TITRATE PER MD ORDER Last Titration: 01/28/18 05:00 Dose: 0 mcg/min, 0 mls/hr Gentamicin Sulfate 80 mg/ (Sodium Chloride) 102 mls @ 100 mls/hr IVPB [facility] PRN Reason: Protocol Last Admin: 01/27/18 09:04 Dose: 100 mls/hr Vancomycin/Sodium Chloride (Vancomycin 1 Gm/Ns 200 Ml) 1 gm in 200 mls @ 133.333 mls/hr IVPB [facility] PRN Reason: Protocol Stop: 02/03/18 10:01 Meropenem 500 mg/ Sodium (Chloride) 100 mls @ 100 mls/hr IVPB Q12H [facility] PRN Reason: Protocol Insulin Human Regular (Novolin R) 0 unit SC Q6 [facility] PRN Reason: Protocol Last Admin: 01/28/18 05:45 Dose: 4 u Lactobacillus Acidophilus (Bacid Acidophilus) 1 cap PO BID [facility] Last Admin: 01/28/18 10:20 Dose: 1 cap Midodrine (Proamatine) 5 mg PO TID [facility] Last Admin: 01/28/18 10:20 Dose: 5 mg Sevelamer Carbonate (Renvela) 0.8 gm NG TIDCC [facility] Last Admin: 01/28/18 10:21 Dose: 0.8 gm Tramadol HCl (Ultram) 50 mg PO TID PRN PRN Reason: Pain, moderate (4-7) Vitamin B Complex/Vit C/Folic Acid (Nephro-Carlos) 1 tab PO DAILY [facility] Last Admin: 01/28/18 10:21 Dose: 1 tab - Labs Labs: 01/28/18 06:16 01/28/18 06:15 PT 11.1 SECONDS (9.7-12.2) 01/22/18 12:20 INR 1.0 06/27/18 12:20 APTT 27 SECONDS (21-34) 01/22/18 12:20
[2018-01-28 18:01] LABS: % CD4 (T HELPER CELL) 11 Percent (30-61); % CD8 (SUPPRESSOR T CELL) 36 Percent (12-42); ABSOLUTE CD3 CELLS 284 Cells/mcL (840-3060); ABSOLUTE CD4 CELLS 67 Cells/mcL (490-1740); ABSOLUTE CD8 CELLS 216 Cells/mcL (180-1170); ABSOLUTE LYMPHOCYTES 593 Cells/mcL (850-3900); HELPER/SUPPRESSOR RATIO 0.31 Ratio (0.86-5.00)
[2018-01-28] MEDS: Emtricitabine-Tenofovir 200 mg-300 mg Tab PO SCH (18:14)
--- NOTE | 2018-01-28 20:19 | CP.PCM.PN ---
Subjective - Date & Time of Evaluation Date of Evaluation: 01/28/18 Time of Evaluation: 10:05 - Subjective Subjective: Patient seen and examined at bedside. No new events noted and not in distress Physical Examination - Constitutional Appears: Non-toxic, No Acute Distress - Head Exam Head Exam: ATRAUMATIC, NORMAL INSPECTION, NORMOCEPHALIC - ENT Exam ENT Exam: Mucous Membranes Moist - Respiratory Exam Respiratory Exam: NORMAL BREATHING PATTERN - Cardiovascular Exam Cardiovascular Exam: REGULAR RHYTHM, RRR, +S1, +S2 - GI/Abdominal Exam GI & Abdominal Exam: Soft. absent: Tenderness - Back Exam Additional comments: R BKA, L AKA - Neurological Exam Neurological Exam: Alert, Awake - Psychiatric Exam Psychiatric exam: Anxious - Skin Additional comments: L AKA, incision C/D/I, no erythema/necrotic tissue noted Objective - Vital Signs/Intake and Output Vital Signs (last 24 hours): Temp Pulse Resp BP Pulse Ox 98.7 F 72 12 107/44 L 100 01/28/18 16:00 01/28/18 18:01 01/28/18 18:01 01/28/18 18:01 01/28/18 18:01 Intake and Output: 01/28/18 01/29/18 18:59 06:59 Intake Total 610 Output Total 0 Balance 610 - Medications Medications: Current Medications Acetaminophen (Tylenol 325mg Tab) 650 mg PO Q6 PRN PRN Reason: Fever >100.4 F Last Admin: 01/28/18 10:21 Dose: 650 mg Acetaminophen (Tylenol 325mg Tab) 650 mg PO Q6 PRN PRN Reason: Pain, Mild (1-3) Albumin Human (Albumin Human 25% (12.5 Gm/50 Ml)) 25 gm IV MWF [facility] Last Admin: 01/27/18 19:19 Dose: 12.5 gm Alprazolam (Xanax) 0.25 mg PO HS PRN PRN Reason: Anxiety Stop: 02/03/18 19:30 Last Admin: 01/27/18 22:05 Dose: 0.25 mg Dextrose (Dextrose 50% Inj) 0 ml IV STAT PRN; Protocol PRN Reason: Hypoglycemia Protocol Dextrose (Glutose 15) 0 gm PO ONCE PRN; Protocol PRN Reason: Hypoglycemia Protocol Emtricitabine/Tenofovir (Truvada 200 Mg-300 Mg) 1 tab PO Q48H [facility] PRN Reason: Protocol Last Admin: 01/28/18 18:14 Dose: 1 tab Epoetin Alonso (Procrit) 10,000 unit IV MWF [facility] Last Admin: 01/27/18 20:30 Dose: 10,000 unit Famotidine (Pepcid) 20 mg PO DAILY [facility] Last Admin: 01/28/18 10:21 Dose: 20 mg Glucagon (Glucagen Diagnostic Kit) 0 mg IM STAT PRN; Protocol PRN Reason: Hypoglycemia Protocol Heparin Sodium (Porcine) (Heparin) 5,000 units SC Q8 [facility] Last Admin: 01/28/18 14:15 Dose: 5,000 units Hydrocortisone Sodium Succinate (Solu-Cortef) 50 mg IV Q12H [facility] Last Admin: 01/28/18 10:24 Dose: 50 mg Hydromorphone HCl (Dilaudid) 0.5 mg IVP Q6H PRN PRN Reason: Pain, moderate (4-7) Last Admin: 01/28/18 05:45 Dose: 0.5 mg Norepinephrine Bitartrate 4 mg (/ Sodium Chloride) 250 mls @ 15 mls/hr IV .[id number] PRN; Protocol; 4 MCG/MIN PRN Reason: TITRATE PER MD ORDER Last Titration: 01/28/18 05:00 Dose: 0 mcg/min, 0 mls/hr Gentamicin Sulfate 80 mg/ (Sodium Chloride) 102 mls @ 100 mls/hr IVPB [facility] PRN Reason: Protocol Last Admin: 01/27/18 09:04 Dose: 100 mls/hr Vancomycin/Sodium Chloride (Vancomycin 1 Gm/Ns 200 Ml) 1 gm in 200 mls @ 133.333 mls/hr IVPB [facility] PRN Reason: Protocol Stop: 02/03/18 10:01 Meropenem 500 mg/ Sodium (Chloride) 100 mls @ 100 mls/hr IVPB Q12H [facility] PRN Reason: Protocol Insulin Human Regular (Novolin R) 0 unit SC Q6 [facility] PRN Reason: Protocol Last Admin: 01/28/18 18:14 Dose: Not Given Lactobacillus Acidophilus (Bacid Acidophilus) 1 cap PO BID [facility] Last Admin: 01/28/18 18:13 Dose: 1 cap Midodrine (Proamatine) 5 mg PO TID [facility] Last Admin: 01/28/18 18:05 Dose: 5 mg Sevelamer Carbonate (Renvela) 0.8 gm NG TIDCC [facility] Last Admin: 01/28/18 18:13 Dose: 0.8 gm Tramadol HCl (Ultram) 50 mg PO TID PRN PRN Reason: Pain, moderate (4-7) Last Admin: 01/28/18 14:27 Dose: 50 mg Vitamin B Complex/Vit C/Folic Acid (Nephro-Carlos) 1 tab PO DAILY [facility] Last Admin: 01/28/18 10:21 Dose: 1 tab - Labs Labs: 01/28/18 06:16 01/28/18 06:15 PT 11.1 SECONDS (9.7-12.2) 01/22/18 12:20 INR 1.0 01/22/18 12:20 APTT 27 SECONDS (21-34) 01/22/18 12:20 Assessment and Plan - Assessment and Plan (Free Text) Assessment: Septic shock secondary to infected Left AKA wound s/p L AKA on 01/01/18 for dry gangrene with revision on 01/23/18 Blood cultures (01/22/18): Coag negative Staphylococcus X2 Left Leg Thigh (01/22/18): Pseudomonas Aerguinosea Left Thigh (01/23/18): Enterobacter Cloacae Ssp Cloac Repeat blood cultures 01/26/18- negative continue on pain medications, abx per ID, and wound care Hypotension on Levophed drip wean off as tolerated Chronic CHF Systolic dysfunction * Patient has cardiac risk factors: diabetes, hypertension, lipid disorder, no prior hx of ME * Echocardiogram (01/01/18): limited study for left ventricular ejection fraction. EF:40% septum and inferior appears to be moderately hypokinetic * Stress test (01/01/18): LV systolic function is borderline. Ejection Fraction is 50-55%. No stress induced ischemia * On levophed drip * ECHO: mitral valve thickened, can't rule out vegetation. if clinically indicated will need [facility] ESRD dialysis MWF monitor BP
[2018-01-29] MEDS: (Novolin R) Insulin Human Regular 100 units/ml vial SC SCH ×3 (00:15→12:36)
--- NOTE | 2018-01-29 00:16 | PN ---
DATE: 01/28/2018 SUBJECTIVE: The patient is more awake, alert. She has left eye blindness. She groans and moans and it is hard to understand what she is trying to say, but she is otherwise stable and does not appear to be in any pain, but she always was in the past also most of the time she used to be drowsy and I think she is to her baseline at this time. PHYSICAL EXAMINATION: VITAL SIGNS: Show temperature is 98.1, pulse 80, blood pressure is 81/56, respirations are 13, saturations 100%. GENERAL: We have renewed vancomycin as well as Merrem for now. She is still with the hypotension. She is status post left revision of the left stump as she came in with a necrotic stump again. HEENT: Her head is atraumatic. She is left eye blind. NECK: Supple. LUNGS: Clear. HEART: S1, S2 is regular. ABDOMEN: Soft, nontender. EXTREMITIES: Right BKA is unremarkable. Left has multiple dressings at this time. LABORATORY DATA: Labs are noted. Labs show white count is 15.8, it is coming down slowly, hemoglobin is 9.4, hematocrit 28.3, platelet count is 370. She is a dialysis patient with a BUN of 71, creatinine of 4.1, and we also sent for the CD4 count and I think Dr. Elizabeth did the HIV lymphocyte count, lymphocyte subset is pending. She is on her medications and I am also giving her gentamicin at this time. I was concerned about the catheter. However, the blood culture from 01/26/2018 is negative 48 hours, so this staph coagulase negative in the blood was probably venous blood and not from the catheter, but since two sets were positive, I would still continue vancomycin as she has had many catheter sepsis and she is still hypotensive and we can do that. Regarding change of catheter, I am not too sure, will discuss the plans with Dr. Sinclair when I can. Tammy Villegas MD
[2018-01-29 06:11] LABS: HEMOGLOBIN 9.6 g/dL (11.0-16.0); MEAN CELL VOLUME 90.9 fL (81.0-99.0); MEAN CORPUSCULAR HEMOGLOBIN 29.9 pg (27.0-31.0); MEAN CORPUSCULAR HGB CONC 32.9 g/dL (33.0-37.0); MEAN PLATELET VOLUME 8.3 fL (7.2-11.7); PLATELET COUNT 366 K/uL (130-400); RBC 3.22 Mil/uL (3.80-5.20); RED CELL DISTRIBUTION WIDTH 17.4 % (11.5-14.5); WHITE BLOOD COUNT 15.8 K/uL (4.8-10.8)
[2018-01-29 06:23] LABS: ALB/GLOB RATIO 0.8 (1.0-2.1); ALBUMIN 2.8 g/dL (3.5-5.0); CALCIUM 9.4 mg/dl (8.6-10.4)
[2018-01-29] MEDS: Sevelamer Carb 0.8 gm/Packet NG SCH ×3 (07:39→17:03)
--- NOTE | 2018-01-29 08:09 | CP.PCM.PN ---
Subjective - Date & Time of Evaluation Date of Evaluation: 01/29/18 Time of Evaluation: 08:08 - Subjective Subjective: Vascular Surgery Progress Note for Dr. Sinclair This 58M was seen and examined this AM at bedside no acute events overnight. She is no longer on levo, she is not responding appropriately to questions this AM unable to provide adequate subjective. Objective - Vital Signs/Intake and Output Vital Signs (last 24 hours): Temp Pulse Resp BP Pulse Ox 98.2 F 66 9 L 107/48 L 100 01/29/18 04:00 01/29/18 07:01 01/29/18 07:01 01/29/18 07:01 01/29/18 07:01 Intake and Output: 01/29/18 01/29/18 06:59 18:59 Intake Total 100 120 Balance 100 120 - Medications Medications: Current Medications Acetaminophen (Tylenol 325mg Tab) 650 mg PO Q6 PRN PRN Reason: Fever >100.4 F Last Admin: 01/28/18 10:21 Dose: 650 mg Acetaminophen (Tylenol 325mg Tab) 650 mg PO Q6 PRN PRN Reason: Pain, Mild (1-3) Albumin Human (Albumin Human 25% (12.5 Gm/50 Ml)) 25 gm IV MWF [facility] Last Admin: 01/27/18 19:19 Dose: 12.5 gm Alprazolam (Xanax) 0.25 mg PO HS PRN PRN Reason: Anxiety Stop: 02/03/18 19:30 Last Admin: 01/27/18 22:05 Dose: 0.25 mg Dextrose (Dextrose 50% Inj) 0 ml IV STAT PRN; Protocol PRN Reason: Hypoglycemia Protocol Dextrose (Glutose 15) 0 gm PO ONCE PRN; Protocol PRN Reason: Hypoglycemia Protocol Emtricitabine/Tenofovir (Truvada 200 Mg-300 Mg) 1 tab PO Q48H [facility] PRN Reason: Protocol Last Admin: 01/28/18 18:14 Dose: 1 tab Epoetin Alonso (Procrit) 10,000 unit IV MWF [facility] Last Admin: 01/27/18 20:30 Dose: 10,000 unit Famotidine (Pepcid) 20 mg PO DAILY [facility] Last Admin: 01/28/18 10:21 Dose: 20 mg Glucagon (Glucagen Diagnostic Kit) 0 mg IM STAT PRN; Protocol PRN Reason: Hypoglycemia Protocol Heparin Sodium (Porcine) (Heparin) 5,000 units SC Q8 [facility] Last Admin: 01/29/18 06:19 Dose: 5,000 units Hydrocortisone Sodium Succinate (Solu-Cortef) 50 mg IV Q12H [facility] Last Admin: 01/28/18 21:14 Dose: 50 mg Hydromorphone HCl (Dilaudid) 0.5 mg IVP Q6H PRN PRN Reason: Pain, moderate (4-7) Last Admin: 01/28/18 05:45 Dose: 0.5 mg Norepinephrine Bitartrate 4 mg (/ Sodium Chloride) 250 mls @ 15 mls/hr IV .[id number] PRN; Protocol; 4 MCG/MIN PRN Reason: TITRATE PER MD ORDER Last Titration: 01/28/18 05:00 Dose: 0 mcg/min, 0 mls/hr Gentamicin Sulfate 80 mg/ (Sodium Chloride) 102 mls @ 100 mls/hr IVPB [facility] [place] [place] PRN Reason: Protocol Last Admin: 01/27/18 09:04 Dose: 100 mls/hr Vancomycin/Sodium Chloride (Vancomycin 1 Gm/Ns 200 Ml) 1 gm in 200 mls @ 133.333 mls/hr IVPB [facility] [place] [place] PRN Reason: Protocol Stop: 02/03/18 10:01 Meropenem 500 mg/ Sodium (Chloride) 100 mls @ 100 mls/hr IVPB Q12H [facility] PRN Reason: Protocol Last Admin: 01/28/18 21:14 Dose: 100 mls/hr Insulin Human Regular (Novolin R) 0 unit SC Q6 [facility] PRN Reason: Protocol Last Admin: 01/29/18 06:19 Dose: 2 u Lactobacillus Acidophilus (Bacid Acidophilus) 1 cap PO BID [facility] Last Admin: 01/28/18 18:13 Dose: 1 cap Midodrine (Proamatine) 5 mg PO TID [facility] Last Admin: 01/28/18 18:05 Dose: 5 mg Sevelamer Carbonate (Renvela) 0.8 gm NG TIDCC [facility] Last Admin: 01/29/18 07:39 Dose: 0.8 gm Tramadol HCl (Ultram) 50 mg PO TID PRN PRN Reason: Pain, moderate (4-7) Last Admin: 01/28/18 14:27 Dose: 50 mg Vitamin B Complex/Vit C/Folic Acid (Nephro-Carlos) 1 tab PO DAILY [facility] Last Admin: 01/28/18 10:21 Dose: 1 tab - Labs Labs: 01/29/18 05:59 01/29/18 06:00 PT 11.1 SECONDS (9.7-12.2) 01/22/18 12:20 INR 1.0 01/22/18 12:20 APTT 27 SECONDS (21-34) 01/22/18 12:20 - Constitutional Appears: Non-toxic, No Acute Distress - Head Exam Head Exam: ATRAUMATIC, NORMOCEPHALIC - Eye Exam Eye Exam: EOMI - ENT Exam ENT Exam: Mucous Membranes Moist - Respiratory Exam Respiratory Exam: NORMAL BREATHING PATTERN - Cardiovascular Exam Cardiovascular Exam: +S1, +S2 - GI/Abdominal Exam GI & Abdominal Exam: Soft. absent: Firm, Guarding, Rigid, Tenderness - Extremities Exam Additional comments: Dressing clean dry and intact - Neurological Exam Neurological Exam: Alert, Awake - Psychiatric Exam Psychiatric exam: Normal Affect, Normal Mood - Skin Skin Exam: Dry, Intact Assessment and Plan - Assessment and Plan (Free Text) Assessment: 58F POD#6 revision of necrotic AKA Plan: -continue with abx per ID -c/w pain meds -Local wound care -Further recs per Dr. Yahir Palacios PGY3
[2018-01-29] MEDS: Lactobacillus Acidophilus 500 MU Cap PO SCH ×3 (09:38→17:03)
[2018-01-29] MEDS: Meropenem 500 MG in Sodium Chloride 0.9% 100 ML IVPB SCH ×2 (09:39→22:30)
[2018-01-29] MEDS: Multivitamin Vitamin B Complex (Nephro-Vite) Tab PO SCH ×2 (09:39→09:49)
[2018-01-29 09:54] LABS: BASO % 0.3 % (0.0-2.0); EOS # 0.4 K/uL (0.0-0.7); EOS % 2.4 % (0.0-4.0); LYMPH # 1.3 K/uL (1.0-4.3); LYMPH % 8.4 % (20.0-40.0); MONO # 0.3 K/uL (0.0-0.8); MONO % 2.2 % (0.0-10.0); NEUT # 13.7 K/uL (1.8-7.0); NEUT % 86.7 % (50.0-75.0)
[2018-01-29 09:58] LABS: BANDS 4 % (0-2); LYMPHOCYTE 8 % (20-40); METAMYELOCYTE 1 % (0-0); MONOCYTE 3 % (0-10); MYELOCYTE 4 % (0-0); NEUTROPHIL 80 % (50-75); NUCLEATED RED BLOOD CELL 4 % (0-0); PLATELET ESTIMATE NORMAL (NORMAL); TOTAL CELLS COUNTED 100
[2018-01-29 10:00] LABS: ANISOCYTOSIS SLIGHT; LARGE PLATELETS PRESENT
[2018-01-29] MEDS: Vancomycin 1 gm/NS 200 ml 1 GM/200 ML BAG IVPB SCH (10:52)
--- NOTE | 2018-01-29 12:14 | CP.PCM.PN ---
Subjective - Date & Time of Evaluation Date of Evaluation: 01/29/18 Time of Evaluation: 12:12 - Subjective Subjective: Nephrology Consultation Note Assessment: stable septic shock with left leg wound infection ? 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 Continue with Nephrovite 1 tab/day. PRBC as needed for anemia. on KEESHA with dialysis as last Hb 9.6 Continue with phos binders, last phos level 3.9 check Vit D (37) and PTH level. overall hypercalcemia better Patient not on RAAS leatha as BP low side. Albumin as needed with HD for low BP. maintain hemodynamics stable Glycemic control, Dialysis consistent diet Further work up/management as per primary team Dose meds/antibiotics for ESRD status. Avoid fleets enema/magnesium based laxatives. consider permacath exchange once pt stable, agree with ID. Thanks for allowing me to participate in care of your patient. Will follow patient with you. Please call if any Qs. had d/w ICU team Dr Antolin Dominguez Office: [phone] Subjective: Noted events overnight. Patients unable to provide any hx Physical Examination: General Appearance: in no acute respiratory distress, ill appearing, moaning intermittently Vitals reviewed and noted as below Head; Atraumatic, normocephalic ENT: no ulcers no thrush. Tongue is midline. Oropharynx: no rash or ulcers. EYES: left pupil opacified Neck; supple no lymphadenopathy, no thyromegaly or bruit Lungs: Normal respiratory rate/effort. Breath sounds bilateral equal and clear anteriorly Heart: Normal rate. s1s2 normal. No rub or gallop. Extremities: no edema. No varicose veins. Rt BKA. left AKA with wound dressed Neurological: Patient is non communicative and appears delirious Skin: Warm and dry. Normal turgor. No rash. Palpitation: Normal elasticity for age Abdomen: Abdomen is soft. Bowel sounds +. There is no abdominal tenderness, no guarding/rigidity or organomegaly Psych: unable MSK: no joint tenderness or swelling. Digits and nails normal, no deformity : kidney or bladder not palpable Access: Rt permacath Labs/imaging reviewed. Past medical history, past surgical history, family history, social history, allergy reviewed and noted as below Family Hx: no hx of CKD. Non contributory Objective - Vital Signs/Intake and Output Vital Signs (last 24 hours): Temp Pulse Resp BP Pulse Ox 97.2 F L 64 5 L 119/47 L 100 01/29/18 08:00 01/29/18 11:02 01/29/18 11:02 01/29/18 11:02 01/29/18 11:02 Intake and Output: 01/29/18 01/29/18 06:59 18:59 Intake Total 100 420 Output Total 0 Balance 100 420 - Medications Medications: Current Medications Acetaminophen (Tylenol 325mg Tab) 650 mg PO Q6 PRN PRN Reason: Fever >100.4 F Last Admin: 01/28/18 10:21 Dose: 650 mg Acetaminophen (Tylenol 325mg Tab) 650 mg PO Q6 PRN PRN Reason: Pain, Mild (1-3) Albumin Human (Albumin Human 25% (12.5 Gm/50 Ml)) 25 gm IV MWF [facility] Last Admin: 01/27/18 19:19 Dose: 12.5 gm Alprazolam (Xanax) 0.25 mg PO HS PRN PRN Reason: Anxiety Stop: 02/03/18 19:30 Last Admin: 01/27/18 22:05 Dose: 0.25 mg Dextrose (Dextrose 50% Inj) 0 ml IV STAT PRN; Protocol PRN Reason: Hypoglycemia Protocol Dextrose (Glutose 15) 0 gm PO ONCE PRN; Protocol PRN Reason: Hypoglycemia Protocol Emtricitabine/Tenofovir (Truvada 200 Mg-300 Mg) 1 tab PO Q48H [facility] PRN Reason: Protocol Last Admin: 01/28/18 18:14 Dose: 1 tab Epoetin Alonso (Procrit) 10,000 unit IV MWF [facility] Last Admin: 01/27/18 20:30 Dose: 10,000 unit Famotidine (Pepcid) 20 mg PO DAILY [facility] Last Admin: 01/29/18 09:49 Dose: Not Given Glucagon (Glucagen Diagnostic Kit) 0 mg IM STAT PRN; Protocol PRN Reason: Hypoglycemia Protocol Heparin Sodium (Porcine) (Heparin) 5,000 units SC Q8 [facility] Last Admin: 01/29/18 06:19 Dose: 5,000 units Hydrocortisone Sodium Succinate (Solu-Cortef) 50 mg IV Q12H [facility] Last Admin: 01/29/18 09:37 Dose: 50 mg Hydromorphone HCl (Dilaudid) 0.5 mg IVP Q6H PRN PRN Reason: Pain, moderate (4-7) Last Admin: 01/28/18 05:45 Dose: 0.5 mg Norepinephrine Bitartrate 4 mg (/ Sodium Chloride) 250 mls @ 15 mls/hr IV .[id number] PRN; Protocol; 4 MCG/MIN PRN Reason: TITRATE PER MD ORDER Last Titration: 01/28/18 05:00 Dose: 0 mcg/min, 0 mls/hr Gentamicin Sulfate 80 mg/ (Sodium Chloride) 102 mls @ 100 mls/hr IVPB [facility] [place] PRN Reason: Protocol Last Admin: 01/27/18 09:04 Dose: 100 mls/hr Vancomycin/Sodium Chloride (Vancomycin 1 Gm/Ns 200 Ml) 1 gm in 200 mls @ 133.333 mls/hr IVPB [facility] [place] PRN Reason: Protocol Stop: 02/03/18 10:01 Last Admin: 01/29/18 10:52 Dose: 133.333 mls/hr Meropenem 500 mg/ Sodium (Chloride) 100 mls @ 100 mls/hr IVPB Q12H [facility] PRN Reason: Protocol Last Admin: 01/29/18 09:39 Dose: 100 mls/hr Insulin Human Regular (Novolin R) 0 unit SC ACHS [facility] PRN Reason: Protocol Lactobacillus Acidophilus (Bacid Acidophilus) 1 cap PO BID [facility] Last Admin: 01/29/18 09:48 Dose: Not Given Midodrine (Proamatine) 5 mg PO TID [facility] Last Admin: 01/29/18 09:50 Dose: Not Given Sevelamer Carbonate (Renvela) 0.8 gm NG TIDCC [facility] Last Admin: 01/29/18 07:39 Dose: 0.8 gm Tramadol HCl (Ultram) 50 mg PO TID PRN PRN Reason: Pain, moderate (4-7) Last Admin: 01/28/18 14:27 Dose: 50 mg Vitamin B Complex/Vit C/Folic Acid (Nephro-Carlos) 1 tab PO DAILY [facility] Last Admin: 01/29/18 09:49 Dose: Not Given - Labs Labs: 01/29/18 05:59 01/29/18 06:00 PT 11.1 SECONDS (9.7-12.2) 01/22/18 12:20 INR 1.0 01/22/18 12:20 APTT 27 SECONDS (21-34) 01/22/18 12:20
[2018-01-29] MEDS: Epoetin Alfa 10,000 unit/ml Dialysis IV SCH (18:27)
[2018-01-29] MEDS: Albumin Human 25% (12.5 gm/50 ml) IV SCH (19:49)
--- NOTE | 2018-01-29 23:51 | CP.PCM.PN ---
Subjective - Date & Time of Evaluation Date of Evaluation: 01/29/18 Time of Evaluation: 23:51 - Subjective Subjective: Patient is being transferred to third floor now. Received hemodialysis today. Tolerated. Blood pressure slightly on the low side. Patient is somewhat restless On examination: Vital signs stable. Blood pressure is still on the low side. Chest good air entry regular heart sound nontender abdomen Patient has a left ear bony amputation healing well. Right below-knee amputation. Patient with HIV positive. End-stage renal disease on dialysis. Peripheral Vascor disease. Admitted with a sepsis now improving. Objective - Vital Signs/Intake and Output Vital Signs (last 24 hours): Temp Pulse Resp BP Pulse Ox 98.8 F 84 10 L 116/38 L 100 01/29/18 20:00 01/29/18 22:01 01/29/18 22:01 01/29/18 22:01 01/29/18 22:01 Intake and Output: 01/29/18 01/30/18 18:59 06:59 Intake Total 620 100 Output Total 0 Balance 620 100 - Medications Medications: Current Medications Acetaminophen (Tylenol 325mg Tab) 650 mg PO Q6 PRN PRN Reason: Fever >100.4 F Last Admin: 01/28/18 10:21 Dose: 650 mg Acetaminophen (Tylenol 325mg Tab) 650 mg PO Q6 PRN PRN Reason: Pain, Mild (1-3) Albumin Human (Albumin Human 25% (12.5 Gm/50 Ml)) [facility] Last Admin: 01/29/18 19:49 Dose: 25 gm Alprazolam (Xanax) 0.25 mg PO HS PRN PRN Reason: Anxiety Stop: 02/03/18 19:30 Last Admin: 01/27/18 22:05 Dose: 0.25 mg Dextrose (Dextrose 50% Inj) 0 ml IV STAT PRN; Protocol PRN Reason: Hypoglycemia Protocol Dextrose (Glutose 15) 0 gm PO ONCE PRN; Protocol PRN Reason: Hypoglycemia Protocol Emtricitabine/Tenofovir (Truvada 200 Mg-300 Mg) 1 tab PO Q48H [facility] PRN Reason: Protocol Last Admin: 01/28/18 18:14 Dose: 1 tab Epoetin Alonso (Procrit) 10,000 unit IV MWF [facility] Last Admin: 01/29/18 18:27 Dose: 10,000 unit Famotidine (Pepcid) 20 mg PO DAILY [facility] Last Admin: 01/29/18 09:49 Dose: Not Given Glucagon (Glucagen Diagnostic Kit) 0 mg IM STAT PRN; Protocol PRN Reason: Hypoglycemia Protocol Heparin Sodium (Porcine) (Heparin) 5,000 units SC Q8 [facility] Last Admin: 01/29/18 21:19 Dose: 5,000 units Hydrocortisone Sodium Succinate (Solu-Cortef) 50 mg IV Q12H [facility] Last Admin: 01/29/18 21:18 Dose: 50 mg Hydromorphone HCl (Dilaudid) 0.5 mg IVP Q6H PRN PRN Reason: Pain, moderate (4-7) Last Admin: 01/28/18 05:45 Dose: 0.5 mg Norepinephrine Bitartrate 4 mg (/ Sodium Chloride) 250 mls @ 15 mls/hr IV .[id number] PRN; Protocol; 4 MCG/MIN PRN Reason: TITRATE PER MD ORDER Last Titration: 01/28/18 05:00 Dose: 0 mcg/min, 0 mls/hr Gentamicin Sulfate 80 mg/ (Sodium Chloride) 102 mls @ 100 mls/hr IVPB [facility] [place] PRN Reason: Protocol Last Admin: 01/29/18 21:18 Dose: 100 mls/hr Vancomycin/Sodium Chloride (Vancomycin 1 Gm/Ns 200 Ml) 1 gm in 200 mls @ 133.333 mls/hr IVPB [facility] [place] PRN Reason: Protocol Stop: 02/03/18 10:01 Last Admin: 01/29/18 10:52 Dose: 133.333 mls/hr Meropenem 500 mg/ Sodium (Chloride) 100 mls @ 100 mls/hr IVPB Q12H [facility] PRN Reason: Protocol Last Admin: 01/29/18 22:30 Dose: 100 mls/hr Insulin Human Regular (Novolin R) 0 unit SC ACHS [facility] PRN Reason: Protocol Last Admin: 01/29/18 12:36 Dose: Not Given Lactobacillus Acidophilus (Bacid Acidophilus) 1 cap PO BID [facility] Last Admin: 01/29/18 17:03 Dose: 1 cap Midodrine (Proamatine) 5 mg PO TID [facility] Last Admin: 01/29/18 17:04 Dose: 5 mg Sevelamer Carbonate (Renvela) 0.8 gm NG TIDCC [facility] Last Admin: 01/29/18 17:03 Dose: 0.8 gm Tramadol HCl (Ultram) 50 mg PO TID PRN PRN Reason: Pain, moderate (4-7) Last Admin: 01/28/18 14:27 Dose: 50 mg Vitamin B Complex/Vit C/Folic Acid (Nephro-Carlos) 1 tab PO DAILY [facility] Last Admin: 01/29/18 09:49 Dose: Not Given - Labs Labs: 01/29/18 05:59 01/29/18 06:00 PT 11.1 SECONDS (9.7-12.2) 01/22/18 12:20 INR 1.0 01/22/18 12:20 APTT 27 SECONDS (21-34) 01/22/18 12:20
--- NOTE | 2018-01-30 07:19 | CP.PCM.PN ---
Subjective - Date & Time of Evaluation Date of Evaluation: 01/30/18 Time of Evaluation: 06:30 - Subjective Subjective: Vascular Surgery Progress Note for Dr. Sinclair 58M was seen and examined this AM at bedside no acute events overnight. Patient unable to provide appropriate history. Per nurse, no BM overnight. Denies f/c, v , CP, or SOB. Objective - Vital Signs/Intake and Output Vital Signs (last 24 hours): Temp Pulse Resp BP Pulse Ox 98 F 73 20 127/70 96 01/30/18 00:00 01/30/18 00:00 01/30/18 00:00 01/30/18 00:00 01/30/18 00:00 Intake and Output: 01/30/18 01/30/18 06:59 18:59 Intake Total 100 Balance 100 - Medications Medications: Current Medications Acetaminophen (Tylenol 325mg Tab) 650 mg PO Q6 PRN PRN Reason: Fever >100.4 F Last Admin: 01/28/18 10:21 Dose: 650 mg Acetaminophen (Tylenol 325mg Tab) 650 mg PO Q6 PRN PRN Reason: Pain, Mild (1-3) Albumin Human (Albumin Human 25% (12.5 Gm/50 Ml)) 25 gm IV MWF [facility] Last Admin: 01/29/18 19:49 Dose: 25 gm Alprazolam (Xanax) 0.25 mg PO HS PRN PRN Reason: Anxiety Stop: 02/03/18 19:30 Last Admin: 01/27/18 22:05 Dose: 0.25 mg Dextrose (Dextrose 50% Inj) 0 ml IV STAT PRN; Protocol PRN Reason: Hypoglycemia Protocol Dextrose (Glutose 15) 0 gm PO ONCE PRN; Protocol PRN Reason: Hypoglycemia Protocol Emtricitabine/Tenofovir (Truvada 200 Mg-300 Mg) 1 tab PO Q48H [facility] PRN Reason: Protocol Last Admin: 01/28/18 18:14 Dose: 1 tab Epoetin Alonso (Procrit) 10,000 unit IV MWF [facility] Last Admin: 01/29/18 18:27 Dose: 10,000 unit Famotidine (Pepcid) 20 mg PO DAILY [facility] Last Admin: 01/29/18 09:49 Dose: Not Given Glucagon (Glucagen Diagnostic Kit) 0 mg IM STAT PRN; Protocol PRN Reason: Hypoglycemia Protocol Heparin Sodium (Porcine) (Heparin) 5,000 units SC Q8 [facility] Last Admin: 01/30/18 05:42 Dose: 5,000 units Hydrocortisone Sodium Succinate (Solu-Cortef) 50 mg IV Q12H [facility] Last Admin: 01/29/18 21:18 Dose: 50 mg Hydromorphone HCl (Dilaudid) 0.5 mg IVP Q6H PRN PRN Reason: Pain, moderate (4-7) Last Admin: 01/28/18 05:45 Dose: 0.5 mg Norepinephrine Bitartrate 4 mg (/ Sodium Chloride) 250 mls @ 15 mls/hr IV .[id number] PRN; Protocol; 4 MCG/MIN PRN Reason: TITRATE PER MD ORDER Last Titration: 01/28/18 05:00 Dose: 0 mcg/min, 0 mls/hr Gentamicin Sulfate 80 mg/ (Sodium Chloride) 102 mls @ 100 mls/hr [place]PB [facility] PRN Reason: Protocol Last Admin: 01/29/18 21:18 Dose: 100 mls/hr Vancomycin/Sodium Chloride (Vancomycin 1 Gm/Ns 200 Ml) 1 gm in 200 mls @ 133.333 mls/hr [place]PB [facility] PRN Reason: Protocol Stop: 02/03/18 10:01 Last Admin: 01/29/18 10:52 Dose: 133.333 mls/hr Meropenem 500 mg/ Sodium (Chloride) 100 mls @ 100 mls/hr IVPB Q12H [facility] PRN Reason: Protocol Last Admin: 01/29/18 22:30 Dose: 100 mls/hr Insulin Human Regular (Novolin R) 0 unit SC ACHS [facility] PRN Reason: Protocol Last Admin: 01/29/18 12:36 Dose: Not Given Lactobacillus Acidophilus (Bacid Acidophilus) 1 cap PO BID [facility] Last Admin: 01/29/18 17:03 Dose: 1 cap Midodrine (Proamatine) 5 mg PO TID [facility] Last Admin: 01/29/18 17:04 Dose: 5 mg Sevelamer Carbonate (Renvela) 0.8 gm NG TIDCC [facility] Last Admin: 01/29/18 17:03 Dose: 0.8 gm Tramadol HCl (Ultram) 50 mg PO TID PRN PRN Reason: Pain, moderate (4-7) Last Admin: 01/28/18 14:27 Dose: 50 mg Vitamin B Complex/Vit C/Folic Acid (Nephro-Carlos) 1 tab PO DAILY [facility] Last Admin: 01/29/18 09:49 Dose: Not Given - Labs Labs: 01/29/18 05:59 01/29/18 06:00 PT 11.1 SECONDS (9.7-12.2) 01/22/18 12:20 INR 1.0 01/22/18 12:20 APTT 27 SECONDS (21-34) 01/22/18 12:20 - Constitutional Appears: Well - Head Exam Head Exam: ATRAUMATIC, NORMAL INSPECTION, NORMOCEPHALIC - Eye Exam Eye Exam: EOMI, Normal appearance, PERRL - ENT Exam ENT Exam: Mucous Membranes Moist, Normal Exam - Respiratory Exam Respiratory Exam: Clear to Ausculation Bilateral, NORMAL BREATHING PATTERN - Cardiovascular Exam Cardiovascular Exam: REGULAR RHYTHM, +S1, +S2. absent: Murmur - GI/Abdominal Exam GI & Abdominal Exam: Soft, Normal Bowel Sounds. absent: Tenderness - Neurological Exam Neurological Exam: Alert, Awake - Skin Additional comments: Left stump dressing c/d/i Assessment and Plan - Assessment and Plan (Free Text) Assessment: 58F s/p Left AKA post-op day 7 Plan: Dialysis catheter placement 01/31 NPO at midnight hold anticoagulation AM labs c/w abx per ID c/w pain control Wound care Ronaldo Sutton PGY1
[2018-01-30] MEDS: (Novolin R) Insulin Human Regular 100 units/ml vial SC SCH ×4 (07:31→21:42)
[2018-01-30] MEDS: Sevelamer Carb 0.8 gm/Packet NG SCH ×3 (08:19→17:32)
[2018-01-30] MEDS: Meropenem 500 MG in Sodium Chloride 0.9% 100 ML IVPB SCH ×2 (10:13→21:31)
[2018-01-30] MEDS: Multivitamin Vitamin B Complex (Nephro-Vite) Tab PO SCH ×2 (10:23→10:46)
[2018-01-30] MEDS: Lactobacillus Acidophilus 500 MU Cap PO SCH ×3 (10:24→17:33)
--- NOTE | 2018-01-30 11:29 | CP.PCM.PN ---
Subjective - Date & Time of Evaluation Date of Evaluation: 01/30/18 Time of Evaluation: 11:26 - Subjective Subjective: Nephrology Consultation Note Assessment: stable septic shock with left leg wound infection ? MV vegetation Diabetic chronic Kidney Disease (E11.22) Hypertensive Chronic Kidney Disease (I12.0) End stage renal disease (N18.6) dependence on hemodialysis (Z99.2) (MWF) via permacath Anemia (D64.9), Hyperphosphatemia (E83.39), Secondary Hyperparathyroidism (E21.1 ), HTN (I12.0) HIV on HAART, hx of CHF Hypercalcemia s/p Rt BKA and left AKA Altered mental status Plan: Will plan for HD tomorrow as ordered per [facility] schedule. Continue with Nephrovite 1 tab/day. PRBC as needed for anemia. on KEESHA with dialysis as last Hb 9.6 Continue with phos binders, last phos level 3.9 check Vit D (37) and PTH level. overall hypercalcemia better Patient not on RAAS leatha as BP low side. Albumin as needed with HD for low BP. maintain hemodynamics stable Glycemic control, Dialysis consistent diet Further work up/management as per primary team Dose meds/antibiotics for ESRD status. Avoid fleets enema/magnesium based laxatives. d/w vascular surgery for permacath exchange Thanks for allowing me to participate in care of your patient. Will follow patient with you. Please call if any Qs. had d/w team Dr Antolin Dominguez Office: [phone] Subjective: Noted events overnight. Patients more communicative today. denies CP /SOB used alteplase 01/29/18 due to catheter dysfunction Physical Examination: General Appearance: in no acute respiratory distress, better appearing Vitals reviewed and noted as below Head; Atraumatic, normocephalic ENT: no ulcers no thrush. Tongue is midline. Oropharynx: no rash or ulcers. EYES: left pupil opacified Neck; supple no lymphadenopathy, no thyromegaly or bruit Lungs: Normal respiratory rate/effort. Breath sounds bilateral equal and clear anteriorly Heart: Normal rate. s1s2 normal. No rub or gallop. Extremities: no edema. No varicose veins. Rt BKA. left AKA with wound dressed Neurological: Patient is communicative and awake alert today Skin: Warm and dry. Normal turgor. No rash. Palpitation: Normal elasticity for age Abdomen: Abdomen is soft. Bowel sounds +. There is no abdominal tenderness, no guarding/rigidity or organomegaly Psych: deferred MSK: no joint tenderness or swelling. Digits and nails normal, no deformity : kidney or bladder not palpable Access: Rt permacath Labs/imaging reviewed. Past medical history, past surgical history, family history, social history, allergy reviewed and noted as below Family Hx: no hx of CKD. Non contributory Objective - Vital Signs/Intake and Output Vital Signs (last 24 hours): Temp Pulse Resp BP Pulse Ox 97.4 F L 71 20 127/77 97 01/30/18 08:00 01/30/18 08:00 01/30/18 08:00 01/30/18 08:00 01/30/18 08:00 Intake and Output: 01/30/18 01/30/18 06:59 18:59 Intake Total 100 0 Output Total 0 Balance 100 0 - Medications Medications: Current Medications Acetaminophen (Tylenol 325mg Tab) 650 mg PO Q6 PRN PRN Reason: Fever >100.4 F Last Admin: 01/28/18 10:21 Dose: 650 mg Acetaminophen (Tylenol 325mg Tab) 650 mg PO Q6 PRN PRN Reason: Pain, Mild (1-3) Albumin Human (Albumin Human 25% (12.5 Gm/50 Ml)) 25 gm IV MWF [facility] Last Admin: 01/29/18 19:49 Dose: 25 gm Alprazolam (Xanax) 0.25 mg PO HS PRN PRN Reason: Anxiety Stop: 02/03/18 19:30 Last Admin: 01/27/18 22:05 Dose: 0.25 mg Dextrose (Dextrose 50% Inj) 0 ml IV STAT PRN; Protocol PRN Reason: Hypoglycemia Protocol Dextrose (Glutose 15) 0 gm PO ONCE PRN; Protocol PRN Reason: Hypoglycemia Protocol Emtricitabine/Tenofovir (Truvada 200 Mg-300 Mg) 1 tab PO Q48H [facility] PRN Reason: Protocol Last Admin: 01/28/18 18:14 Dose: 1 tab Epoetin Alonso (Procrit) 10,000 unit IV MWF [facility] Last Admin: 01/29/18 18:27 Dose: 10,000 unit Famotidine (Pepcid) 20 mg PO DAILY [facility] Last Admin: 01/30/18 10:47 Dose: Not Given Glucagon (Glucagen Diagnostic Kit) 0 mg IM STAT PRN; Protocol PRN Reason: Hypoglycemia Protocol Heparin Sodium (Porcine) (Heparin) 5,000 units SC Q8 [facility] Last Admin: 01/30/18 05:42 Dose: 5,000 units Hydrocortisone Sodium Succinate (Solu-Cortef) 50 mg IV Q12H [facility] Last Admin: 01/30/18 10:25 Dose: 50 mg Hydromorphone HCl (Dilaudid) 0.5 mg IVP Q6H PRN PRN Reason: Pain, moderate (4-7) Last Admin: 01/28/18 05:45 Dose: 0.5 mg Norepinephrine Bitartrate 4 mg (/ Sodium Chloride) 250 mls @ 15 mls/hr IV .[id number] PRN; Protocol; 4 MCG/MIN PRN Reason: TITRATE PER MD ORDER Last Titration: 01/28/18 05:00 Dose: 0 mcg/min, 0 mls/hr Gentamicin Sulfate 80 mg/ (Sodium Chloride) 102 mls @ 100 mls/hr IVPB [facility] [place] PRN Reason: Protocol Last Admin: 01/29/18 21:18 Dose: 100 mls/hr Vancomycin/Sodium Chloride (Vancomycin 1 Gm/Ns 200 Ml) 1 gm in 200 mls @ 133.333 mls/hr IVPB [facility] [place] PRN Reason: Protocol Stop: 02/03/18 10:01 Last Admin: 01/29/18 10:52 Dose: 133.333 mls/hr Meropenem 500 mg/ Sodium (Chloride) 100 mls @ 100 mls/hr IVPB Q12H [facility] PRN Reason: Protocol Last Admin: 01/30/18 10:13 Dose: 100 mls/hr Insulin Human Regular (Novolin R) 0 unit SC ACHS [facility] PRN Reason: Protocol Last Admin: 01/30/18 07:31 Dose: Not Given Lactobacillus Acidophilus (Bacid Acidophilus) 1 cap PO BID [facility] Last Admin: 01/30/18 10:45 Dose: Not Given Midodrine (Proamatine) 5 mg PO TID [facility] Last Admin: 01/29/18 17:04 Dose: 5 mg Sevelamer Carbonate (Renvela) 0.8 gm NG TIDCC [facility] Last Admin: 01/30/18 08:19 Dose: Not Given Tramadol HCl (Ultram) 50 mg PO TID PRN PRN Reason: Pain, moderate (4-7) Last Admin: 01/28/18 14:27 Dose: 50 mg Vitamin B Complex/Vit C/Folic Acid (Nephro-Carlos) 1 tab PO DAILY [facility] Last Admin: 01/30/18 10:46 Dose: Not Given - Labs Labs: 01/29/18 05:59 01/29/18 06:00 PT 11.1 SECONDS (9.7-12.2) 01/22/18 12:20 INR 1.0 01/22/18 12:20 APTT 27 SECONDS (21-34) 01/22/18 12:20
--- NOTE | 2018-01-30 11:45 | CP.PCM.PN ---
<Yee Person - Last Filed: 01/30/18 13:14> Subjective - Date & Time of Evaluation Date of Evaluation: 01/30/18 Time of Evaluation: 11:00 - Subjective Subjective: PGY2- Progress Note for Dr. Collins Patient seen and examined at bedside. Patient denies any chest pain, shortness of breath, or abdominal pain. Patient admits to bilateral leg pain. Objective - Vital Signs/Intake and Output Vital Signs (last 24 hours): Temp Pulse Resp BP Pulse Ox 97.4 F L 71 20 127/77 97 01/30/18 08:00 01/30/18 08:00 01/30/18 08:00 01/30/18 08:00 01/30/18 08:00 Intake and Output: 01/30/18 01/30/18 06:59 18:59 Intake Total 100 0 Output Total 0 Balance 100 0 - Medications Medications: Current Medications Acetaminophen (Tylenol 325mg Tab) 650 mg PO Q6 PRN PRN Reason: Fever >100.4 F Last Admin: 01/28/18 10:21 Dose: 650 mg Acetaminophen (Tylenol 325mg Tab) 650 mg PO Q6 PRN PRN Reason: Pain, Mild (1-3) Albumin Human (Albumin Human 25% (12.5 Gm/50 Ml)) 25 gm IV MWF [facility] Last Admin: 01/29/18 19:49 Dose: 25 gm Alprazolam (Xanax) 0.25 mg PO HS PRN PRN Reason: Anxiety Stop: 02/03/18 19:30 Last Admin: 01/27/18 22:05 Dose: 0.25 mg Dextrose (Dextrose 50% Inj) 0 ml IV STAT PRN; Protocol PRN Reason: Hypoglycemia Protocol Dextrose (Glutose 15) 0 gm PO ONCE PRN; Protocol PRN Reason: Hypoglycemia Protocol Emtricitabine/Tenofovir (Truvada 200 Mg-300 Mg) 1 tab PO Q48H [facility] PRN Reason: Protocol Last Admin: 01/28/18 18:14 Dose: 1 tab Epoetin Alonso (Procrit) 10,000 unit IV MWF [facility] Last Admin: 01/29/18 18:27 Dose: 10,000 unit Famotidine (Pepcid) 20 mg PO DAILY [facility] Last Admin: 01/30/18 10:47 Dose: Not Given Glucagon (Glucagen Diagnostic Kit) 0 mg IM STAT PRN; Protocol PRN Reason: Hypoglycemia Protocol Heparin Sodium (Porcine) (Heparin) 5,000 units SC Q8 [facility] Last Admin: 01/30/18 05:42 Dose: 5,000 units Hydrocortisone Sodium Succinate (Solu-Cortef) 50 mg IV Q12H [facility] Last Admin: 01/30/18 10:25 Dose: 50 mg Hydromorphone HCl (Dilaudid) 0.5 mg IVP Q6H PRN PRN Reason: Pain, moderate (4-7) Last Admin: 01/28/18 05:45 Dose: 0.5 mg Norepinephrine Bitartrate 4 mg (/ Sodium Chloride) 250 mls @ 15 mls/hr IV .[id number] PRN; Protocol; 4 MCG/MIN PRN Reason: TITRATE PER MD ORDER Last Titration: 01/28/18 05:00 Dose: 0 mcg/min, 0 mls/hr Gentamicin Sulfate 80 mg/ (Sodium Chloride) 102 mls @ 100 mls/hr [place] [facility] [place] Reason: Protocol Last Admin: 01/29/18 21:18 Dose: 100 mls/hr Vancomycin/Sodium Chloride (Vancomycin 1 Gm/Ns 200 Ml) 1 gm in 200 mls @ 133.333 mls/hr [place] [facility] [place] Reason: Protocol Stop: 02/03/18 10:01 Last Admin: 01/29/18 10:52 Dose: 133.333 mls/hr Meropenem 500 mg/ Sodium (Chloride) 100 mls @ 100 mls/hr IVPB Q12H [facility] PRN Reason: Protocol Last Admin: 01/30/18 10:13 Dose: 100 mls/hr Insulin Human Regular (Novolin R) 0 unit SC ACHS [facility] PRN Reason: Protocol Last Admin: 01/30/18 07:31 Dose: Not Given Lactobacillus Acidophilus (Bacid Acidophilus) 1 cap PO BID [facility] Last Admin: 01/30/18 10:45 Dose: Not Given Midodrine (Proamatine) 5 mg PO TID [facility] Last Admin: 01/29/18 17:04 Dose: 5 mg Sevelamer Carbonate (Renvela) 0.8 gm NG TIDCC [facility] Last Admin: 01/30/18 08:19 Dose: Not Given Tramadol HCl (Ultram) 50 mg PO TID PRN PRN Reason: Pain, moderate (4-7) Last Admin: 01/28/18 14:27 Dose: 50 mg Vitamin B Complex/Vit C/Folic Acid (Nephro-Carlos) 1 tab PO DAILY [facility] Last Admin: 01/30/18 10:46 Dose: Not Given - Labs Labs: 01/29/18 05:59 01/29/18 06:00 PT 11.1 SECONDS (9.7-12.2) 01/22/18 12:20 INR 1.0 01/22/18 12:20 APTT 27 SECONDS (21-34) 01/22/18 12:20 - Additional Findings Additional findings: - Constitutional Appears: Non-toxic, No Acute Distress - Head Exam Head Exam: ATRAUMATIC, NORMAL INSPECTION, NORMOCEPHALIC - ENT Exam ENT Exam: Mucous Membranes Moist - Respiratory Exam Respiratory Exam: NORMAL BREATHING PATTERN - Cardiovascular Exam Cardiovascular Exam: REGULAR RHYTHM, RRR, +S1, +S2 - GI/Abdominal Exam GI & Abdominal Exam: Soft. 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 with revision on 01/23/18 WBC downtrending Blood cultures (01/22/18): Coag negative Staphylococcus X2 Left Leg Thigh (01/22/18): Pseudomonas Aerg[place]osea Left Thigh (01/23/18): Enterobacter Cloacae Ssp Cloac Repeat blood cultures 01/26/18- negative after 4 days continue on pain medications, abx per ID, and wound care Hypotension off Levophed drip, transferred out of ICU on 01/29 continue to monitor BP Chronic CHF Systolic dysfunction * Patient has cardiac risk factors: diabetes, hypertension, lipid disorder, no prior hx of SD * Echocardiogram (01/01/18): limited study for left ventricular ejection fraction. EF:40% septum and inferior appears to be moderately hypokinetic * Stress test (01/01/18): LV systolic function is borderline. Ejection Fraction is 50-55%. No stress induced ischemia * off levophed * ECHO: mitral valve thickened, can't rule out vegetation. if clinically indicated will need MARY ANN ESRD dialysis MWF monitor BP Case discussed with Dr. Collins <Donald Collins - Last Filed: 01/31/18 00:40> Objective - Vital Signs/Intake and Output Vital Signs (last 24 hours): Temp Pulse Resp BP Pulse Ox 98.1 F 86 20 108/71 96 01/30/18 15:30 01/30/18 15:30 01/30/18 15:30 01/30/18 15:30 01/30/18 15:30 Intake and Output: 01/30/18 01/31/18 18:59 06:59 Intake Total 0 Output Total 0 Balance 0 - Medications Medications: Current Medications Acetaminophen (Tylenol 325mg Tab) 650 mg PO Q6 PRN PRN Reason: Fever >100.4 F Last Admin: 01/28/18 10:21 Dose: 650 mg Acetaminophen (Tylenol 325mg Tab) 650 mg PO Q6 PRN PRN Reason: Pain, Mild (1-3) Albumin Human (Albumin Human 25% (12.5 Gm/50 Ml)) 25 gm IV MWF [facility] Last Admin: 01/29/18 19:49 Dose: 25 gm Alprazolam (Xanax) 0.25 mg PO HS PRN PRN Reason: Anxiety Stop: 02/03/18 19:30 Last Admin: 01/30/18 21:34 Dose: 0.25 mg Dextrose (Dextrose 50% Inj) 0 ml IV STAT PRN; Protocol PRN Reason: Hypoglycemia Protocol Dextrose (Glutose 15) 0 gm PO ONCE PRN; Protocol PRN Reason: Hypoglycemia Protocol Emtricitabine/Tenofovir (Truvada 200 Mg-300 Mg) 1 tab PO Q48H [facility] PRN Reason: Protocol Last Admin: 01/30/18 13:36 Dose: 1 tab Epoetin Alonso (Procrit) 10,000 unit IV MWF [facility] Last Admin: 01/29/18 18:27 Dose: 10,000 unit Famotidine (Pepcid) 20 mg PO DAILY [facility] Last Admin: 01/30/18 10:47 Dose: Not Given Glucagon (Glucagen Diagnostic Kit) 0 mg IM STAT PRN; Protocol PRN Reason: Hypoglycemia Protocol Heparin Sodium (Porcine) (Heparin) 5,000 units SC Q8 [facility] Last Admin: 01/30/18 13:38 Dose: 5,000 units Hydrocortisone Sodium Succinate (Solu-Cortef) 50 mg IV Q12H [facility] Last Admin: 01/30/18 21:31 Dose: 50 mg Hydromorphone HCl (Dilaudid) 0.5 mg IVP Q6H PRN PRN Reason: Pain, moderate (4-7) Last Admin: 01/28/18 05:45 Dose: 0.5 mg Norepinephrine Bitartrate 4 mg (/ Sodium Chloride) 250 mls @ 15 mls/hr IV .[id number] PRN; Protocol; 4 MCG/MIN PRN Reason: TITRATE PER MD ORDER Last Titration: 01/28/18 05:00 Dose: 0 mcg/min, 0 mls/hr Gentamicin Sulfate 80 mg/ (Sodium Chloride) 102 mls @ 100 mls/hr [place] [facility] [place]N Reason: Protocol Last Admin: 01/29/18 21:18 Dose: 100 mls/hr Vancomycin/Sodium Chloride (Vancomycin 1 Gm/Ns 200 Ml) 1 gm in 200 mls @ 133.333 mls/hr [place] [facility] [place]N Reason: Protocol Stop: 02/03/18 10:01 Last Admin: 01/29/18 10:52 Dose: 133.333 mls/hr Meropenem 500 mg/ Sodium (Chloride) 100 mls @ 100 mls/hr IVPB Q12H [facility] PRN Reason: Protocol Last Admin: 01/30/18 21:31 Dose: 100 mls/hr Insulin Human Regular (Novolin R) 0 unit SC ACHS [facility] PRN Reason: Protocol Last Admin: 01/30/18 21:42 Dose: Not Given Lactobacillus Acidophilus (Bacid Acidophilus) 1 cap PO BID [facility] Last Admin: 01/30/18 17:33 Dose: 1 cap Midodrine (Proamatine) 5 mg PO TID [facility] Last Admin: 01/30/18 17:33 Dose: 5 mg Sevelamer Carbonate (Renvela) 0.8 gm NG TIDCC [facility] Last Admin: 01/30/18 17:32 Dose: 0.8 gm Tramadol HCl (Ultram) 50 mg PO TID PRN PRN Reason: Pain, moderate (4-7) Last Admin: 01/30/18 17:35 Dose: 50 mg Vitamin B Complex/Vit C/Folic Acid (Nephro-Carlos) 1 tab PO DAILY [facility] Last Admin: 01/30/18 10:46 Dose: Not Given - Labs Labs: 01/30/18 20:54 01/30/18 20:54 PT 11.1 SECONDS (9.7-12.2) 01/22/18 12:20 INR 1.0 01/22/18 12:20 APTT 27 SECONDS (21-34) 01/22/18 12:20 Assessment and Plan - Assessment and Plan (Free Text) Assessment: Patient seen and evaluated personally by me Plan of acre as documented
[2018-01-30] MEDS: Emtricitabine-Tenofovir 200 mg-300 mg Tab PO SCH (13:36)
--- NOTE | 2018-01-30 15:17 | CP.PCM.PN ---
Subjective - Date & Time of Evaluation Date of Evaluation: 01/30/18 Time of Evaluation: 02:35 - Subjective Subjective: dictated Objective - Vital Signs/Intake and Output Vital Signs (last 24 hours): Temp Pulse Resp BP Pulse Ox 97.4 F L 71 20 127/77 97 01/30/18 08:00 01/30/18 08:00 01/30/18 08:00 01/30/18 08:00 01/30/18 08:00 Intake and Output: 01/30/18 01/30/18 06:59 18:59 Intake Total 100 0 Output Total 0 Balance 100 0 - Medications Medications: Current Medications Acetaminophen (Tylenol 325mg Tab) 650 mg PO Q6 PRN PRN Reason: Fever >100.4 F Last Admin: 01/28/18 10:21 Dose: 650 mg Acetaminophen (Tylenol 325mg Tab) 650 mg PO Q6 PRN PRN Reason: Pain, Mild (1-3) Albumin Human (Albumin Human 25% (12.5 Gm/50 Ml)) 25 gm IV MWF [facility] Last Admin: 01/29/18 19:49 Dose: 25 gm Alprazolam (Xanax) 0.25 mg PO HS PRN PRN Reason: Anxiety Stop: 02/03/18 19:30 Last Admin: 01/27/18 22:05 Dose: 0.25 mg Dextrose (Dextrose 50% Inj) 0 ml IV STAT PRN; Protocol PRN Reason: Hypoglycemia Protocol Dextrose (Glutose 15) 0 gm PO ONCE PRN; Protocol PRN Reason: Hypoglycemia Protocol Emtricitabine/Tenofovir (Truvada 200 Mg-300 Mg) 1 tab PO Q48H [facility] PRN Reason: Protocol Last Admin: 01/30/18 13:36 Dose: 1 tab Epoetin Alonso (Procrit) 10,000 unit IV MWF [facility] Last Admin: 01/29/18 18:27 Dose: 10,000 unit Famotidine (Pepcid) 20 mg PO DAILY [facility] Last Admin: 01/30/18 10:47 Dose: Not Given Glucagon (Glucagen Diagnostic Kit) 0 mg IM STAT PRN; Protocol PRN Reason: Hypoglycemia Protocol Heparin Sodium (Porcine) (Heparin) 5,000 units SC Q8 [facility] Last Admin: 01/30/18 13:38 Dose: 5,000 units Hydrocortisone Sodium Succinate (Solu-Cortef) 50 mg IV Q12H [facility] Last Admin: 01/30/18 10:25 Dose: 50 mg Hydromorphone HCl (Dilaudid) 0.5 mg IVP Q6H PRN PRN Reason: Pain, moderate (4-7) Last Admin: 01/28/18 05:45 Dose: 0.5 mg Norepinephrine Bitartrate 4 mg (/ Sodium Chloride) 250 mls @ 15 mls/hr IV .[id number] PRN; Protocol; 4 MCG/MIN PRN Reason: TITRATE PER MD ORDER Last Titration: 01/28/18 05:00 Dose: 0 mcg/min, 0 mls/hr Gentamicin Sulfate 80 mg/ (Sodium Chloride) 102 mls @ 100 mls/hr [place] [facility] [place] Reason: Protocol Last Admin: 01/29/18 21:18 Dose: 100 mls/hr Vancomycin/Sodium Chloride (Vancomycin 1 Gm/Ns 200 Ml) 1 gm in 200 mls @ 133.333 mls/hr [place] [facility] [place]N Reason: Protocol Stop: 02/03/18 10:01 Last Admin: 01/29/18 10:52 Dose: 133.333 mls/hr Meropenem 500 mg/ Sodium (Chloride) 100 mls @ 100 mls/hr IVPB Q12H [facility] PRN Reason: Protocol Last Admin: 01/30/18 10:13 Dose: 100 mls/hr Insulin Human Regular (Novolin R) 0 unit SC ACHS [facility] PRN Reason: Protocol Last Admin: 01/30/18 12:01 Dose: Not Given Lactobacillus Acidophilus (Bacid Acidophilus) 1 cap PO BID [facility] Last Admin: 01/30/18 10:45 Dose: Not Given Midodrine (Proamatine) 5 mg PO TID [facility] Last Admin: 01/30/18 13:27 Dose: 5 mg Sevelamer Carbonate (Renvela) 0.8 gm NG TIDCC [facility] Last Admin: 01/30/18 12:20 Dose: 0.8 gm Tramadol HCl (Ultram) 50 mg PO TID PRN PRN Reason: Pain, moderate (4-7) Last Admin: 01/28/18 14:27 Dose: 50 mg Vitamin B Complex/Vit C/Folic Acid (Nephro-Carlos) 1 tab PO DAILY [facility] Last Admin: 01/30/18 10:46 Dose: Not Given - Labs Labs: 01/29/18 05:59 01/29/18 06:00 PT 11.1 SECONDS (9.7-12.2) 01/22/18 12:20 INR 1.0 01/22/18 12:20 APTT 27 SECONDS (21-34) 01/22/18 12:20
--- NOTE | 2018-01-30 19:03 | CP.PCM.PN ---
Subjective - Date & Time of Evaluation Date of Evaluation: 01/30/18 Time of Evaluation: 19:02 - Subjective Subjective: Patient is currently feeling well. Still having on and off pain. Received hemodialysis yesterday. Blood pressure is much better now. She is still poorly eating On examination: Vital signs stable. Chest bilateral good air entry. Regular heart sounds noted Patient has a left above-knee amputation wound is healing well. Right below-knee amputation. Assessment and recommendation: Patient is a 58-year-old female with a history of HIV, on antiretroviral treatment. Heart failure. End-stage renal disease on dialysis. Diabetes. History of diabetes related complications. Clinically stable. Continue the current treatment. Physical exercise. Possible rehab placement Objective - Vital Signs/Intake and Output Vital Signs (last 24 hours): Temp Pulse Resp BP Pulse Ox 98.1 F 86 20 108/71 96 01/30/18 15:30 01/30/18 15:30 01/30/18 15:30 01/30/18 15:30 01/30/18 15:30 Intake and Output: 01/30/18 01/31/18 18:59 06:59 Intake Total 0 Output Total 0 Balance 0 - Medications Medications: Current Medications Acetaminophen (Tylenol 325mg Tab) 650 mg PO Q6 PRN PRN Reason: Fever >100.4 F Last Admin: 01/28/18 10:21 Dose: 650 mg Acetaminophen (Tylenol 325mg Tab) 650 mg PO Q6 PRN PRN Reason: Pain, Mild (1-3) Albumin Human (Albumin Human 25% (12.5 Gm/50 Ml)) 25 gm IV MWF [facility] Last Admin: 01/29/18 19:49 Dose: 25 gm Alprazolam (Xanax) 0.25 mg PO HS PRN PRN Reason: Anxiety Stop: 02/03/18 19:30 Last Admin: 01/27/18 22:05 Dose: 0.25 mg Dextrose (Dextrose 50% Inj) 0 ml IV STAT PRN; Protocol PRN Reason: Hypoglycemia Protocol Dextrose (Glutose 15) 0 gm PO ONCE PRN; Protocol PRN Reason: Hypoglycemia Protocol Emtricitabine/Tenofovir (Truvada 200 Mg-300 Mg) 1 tab PO Q48H [facility] PRN Reason: Protocol Last Admin: 01/30/18 13:36 Dose: 1 tab Epoetin Alonso (Procrit) [facility] Last Admin: 01/29/18 18:27 Dose: 10,000 unit Famotidine (Pepcid) 20 mg PO DAILY [facility] Last Admin: 01/30/18 10:47 Dose: Not Given Glucagon (Glucagen Diagnostic Kit) 0 mg IM STAT PRN; Protocol PRN Reason: Hypoglycemia Protocol Heparin Sodium (Porcine) (Heparin) 5,000 units SC Q8 [facility] Last Admin: 01/30/18 13:38 Dose: 5,000 units Hydrocortisone Sodium Succinate (Solu-Cortef) 50 mg IV Q12H [facility] Last Admin: 01/30/18 10:25 Dose: 50 mg Hydromorphone HCl (Dilaudid) 0.5 mg IVP Q6H PRN PRN Reason: Pain, moderate (4-7) Last Admin: 01/28/18 05:45 Dose: 0.5 mg Norepinephrine Bitartrate 4 mg (/ Sodium Chloride) 250 mls @ 15 mls/hr IV .[id number] PRN; Protocol; 4 MCG/MIN PRN Reason: TITRATE PER MD ORDER Last Titration: 01/28/18 05:00 Dose: 0 mcg/min, 0 mls/hr Gentamicin Sulfate 80 mg/ (Sodium Chloride) 102 mls @ 100 mls/hr IVPB [facility] [place] PRN Reason: Protocol Last Admin: 01/29/18 21:18 Dose: 100 mls/hr Vancomycin/Sodium Chloride (Vancomycin 1 Gm/Ns 200 Ml) 1 gm in 200 mls @ 133.333 mls/hr IVPB [facility] [place] PRN Reason: Protocol Stop: 02/03/18 10:01 Last Admin: 01/29/18 10:52 Dose: 133.333 mls/hr Meropenem 500 mg/ Sodium (Chloride) 100 mls @ 100 mls/hr IVPB Q12H [facility] PRN Reason: Protocol Last Admin: 01/30/18 10:13 Dose: 100 mls/hr Insulin Human Regular (Novolin R) 0 unit SC ACHS [facility] PRN Reason: Protocol Last Admin: 01/30/18 17:34 Dose: Not Given Lactobacillus Acidophilus (Bacid Acidophilus) 1 cap PO BID [facility] Last Admin: 01/30/18 17:33 Dose: 1 cap Midodrine (Proamatine) 5 mg PO TID [facility] Last Admin: 01/30/18 17:33 Dose: 5 mg Sevelamer Carbonate (Renvela) 0.8 gm NG TIDCC [facility] Last Admin: 01/30/18 17:32 Dose: 0.8 gm Tramadol HCl (Ultram) 50 mg PO TID PRN PRN Reason: Pain, moderate (4-7) Last Admin: 01/30/18 17:35 Dose: 50 mg Vitamin B Complex/Vit C/Folic Acid (Nephro-Carlos) 1 tab PO DAILY [facility] Last Admin: 01/30/18 10:46 Dose: Not Given - Labs Labs: 01/29/18 05:59 01/29/18 06:00 PT 11.1 SECONDS (9.7-12.2) 01/22/18 12:20 INR 1.0 01/22/18 12:20 APTT 27 SECONDS (21-34) 01/22/18 12:20
--- NOTE | 2018-01-30 21:09 | PN ---
DATE: 01/30/2018 INFECTIOUS DISEASE FOLLOWUP SUBJECTIVE: The patient is now out of ICU, and she was awake, and she seemed to be calm, not complaining of any pain, no moaning or groaning. No fevers. No chest pain. No nausea, no vomiting. However, her echo report did come out to be positive for mitral valve vegetation as they see something, will probably needed a MARY ANN if she agrees, and the patient is on vancomycin and meropenem. She also had positive blood cultures which was venous, and there were coagulase-negative Staph, and she has always had a difficulty to change her catheter in the past, so we will discuss with Vascular if we should change the catheter, but definitely she will need MARY ANN, and there is a mobile density there. We will continue with IV antibiotics to cover with that. OBJECTIVE: VITAL SIGNS: T-max is 97.4, pulse 71, blood pressure 127/77, respirations are 20. HEENT: Head is atraumatic and normocephalic. Left eye, she is blind. NECK: Supple. LUNGS: Clear. No crackles or rales heard at this time. HEART: S1, S2 is regular. ABDOMEN: Soft and flabby, nontender. Left stump has dressing present. Right BKA is unremarkable. LABORATORY DATA: Labs are noted. Labs show white count is 15.8. This is from yesterday. Hemoglobin 9.6. She is a dialysis patient, and her blood cultures we had repeated were negative on 01/26/2018 and 01/30/2018, and on 01/23/2018, she had Enterobacter and Pseudomonas in that infected leg, gangrenous leg, and she had coagulase-negative Staph blood venous which probably if is the source which was pretty resistant sort of Staphylococcus epidermidis. IMPRESSION: Impression is that the patient came in with septic shock with left stump gangrene and end-stage renal disease. She also has Staphylococcus epidermidis, blood culture positive. She is a dialysis patient, has catheter in the right subclavian and now an echo is abnormal with vegetation. She is on vancomycin and Merrem at the present time, still has increased WBC count, but her blood pressure is stabilized, and she is not on any vasopressors at this time. Tammy Villegas MD [facility] # [id number]
[2018-01-30 21:11] LABS: BASO # 0.1 K/uL (0.0-0.2); BASO % 0.7 % (0.0-2.0); EOS # 0.1 K/uL (0.0-0.7); EOS % 0.7 % (0.0-4.0); HEMOGLOBIN 9.7 g/dL (11.0-16.0); LYMPH # 1.3 K/uL (1.0-4.3); LYMPH % 13.9 % (20.0-40.0); MEAN CORPUSCULAR HEMOGLOBIN 30.5 pg (27.0-31.0); MEAN CORPUSCULAR HGB CONC 32.4 g/dL (33.0-37.0); MEAN PLATELET VOLUME 8.2 fL (7.2-11.7); MONO # 0.5 K/uL (0.0-0.8); MONO % 5.4 % (0.0-10.0); NEUT # 7.2 K/uL (1.8-7.0); NEUT % 79.3 % (50.0-75.0); RBC 3.17 Mil/uL (3.80-5.20); RED CELL DISTRIBUTION WIDTH 17.7 % (11.5-14.5); WHITE BLOOD COUNT 9.1 K/uL (4.8-10.8)
[2018-01-30 21:33] LABS: CALCIUM 8.3 mg/dl (8.6-10.4)
[2018-01-30 21:34] LABS: MEAN CELL VOLUME 94.1 fL (81.0-99.0)
--- NOTE | 2018-01-31 00:42 | CP.PCM.PN ---
Subjective - Date & Time of Evaluation Date of Evaluation: 01/29/18 Time of Evaluation: 18:30 - Subjective Subjective: Subjective: Patient seen and examined at bedside. No new events noted and not in distress Physical Examination - Constitutional Appears: Non-toxic, No Acute Distress - Head Exam Head Exam: ATRAUMATIC, NORMAL INSPECTION, NORMOCEPHALIC - ENT Exam ENT Exam: Mucous Membranes Moist - Respiratory Exam Respiratory Exam: NORMAL BREATHING PATTERN - Cardiovascular Exam Cardiovascular Exam: REGULAR RHYTHM, RRR, +S1, +S2 - GI/Abdominal Exam GI & Abdominal Exam: Soft. absent: Tenderness - Back Exam Additional comments: R BKA, L AKA - Neurological Exam Neurological Exam: Alert, Awake - Psychiatric Exam Psychiatric exam: Anxious - Skin Additional comments: L AKA, incision C/D/I, no erythema/necrotic tissue noted Objective - Vital Signs/Intake and Output Vital Signs (last 24 hours): Temp Pulse Resp BP Pulse Ox 98.1 F 86 20 108/71 96 01/30/18 15:30 01/30/18 15:30 01/30/18 15:30 01/30/18 15:30 01/30/18 15:30 Intake and Output: 01/30/18 01/31/18 18:59 06:59 Intake Total 0 Output Total 0 Balance 0 - Medications Medications: Current Medications Acetaminophen (Tylenol 325mg Tab) 650 mg PO Q6 PRN PRN Reason: Fever >100.4 F Last Admin: 01/28/18 10:21 Dose: 650 mg Acetaminophen (Tylenol 325mg Tab) 650 mg PO Q6 PRN PRN Reason: Pain, Mild (1-3) Albumin Human (Albumin Human 25% (12.5 Gm/50 Ml)) 25 gm IV MWF [facility] Last Admin: 01/29/18 19:49 Dose: 25 gm Alprazolam (Xanax) 0.25 mg PO HS PRN PRN Reason: Anxiety Stop: 02/03/18 19:30 Last Admin: 01/30/18 21:34 Dose: 0.25 mg Dextrose (Dextrose 50% Inj) 0 ml IV STAT PRN; Protocol PRN Reason: Hypoglycemia Protocol Dextrose (Glutose 15) 0 gm PO ONCE PRN; Protocol PRN Reason: Hypoglycemia Protocol Emtricitabine/Tenofovir (Truvada 200 Mg-300 Mg) 1 tab PO Q48H [facility] PRN Reason: Protocol Last Admin: 01/30/18 13:36 Dose: 1 tab Epoetin Alonso (Procrit) 10,000 unit IV [facility] Last Admin: 01/29/18 18:27 Dose: 10,000 unit Famotidine (Pepcid) 20 mg PO DAILY [facility] Last Admin: 01/30/18 10:47 Dose: Not Given Glucagon (Glucagen Diagnostic Kit) 0 mg IM STAT PRN; Protocol PRN Reason: Hypoglycemia Protocol Heparin Sodium (Porcine) (Heparin) 5,000 units SC Q8 [facility] Last Admin: 01/30/18 13:38 Dose: 5,000 units Hydrocortisone Sodium Succinate (Solu-Cortef) 50 mg IV Q12H [facility] Last Admin: 01/30/18 21:31 Dose: 50 mg Hydromorphone HCl (Dilaudid) 0.5 mg IVP Q6H PRN PRN Reason: Pain, moderate (4-7) Last Admin: 01/28/18 05:45 Dose: 0.5 mg Norepinephrine Bitartrate 4 mg (/ Sodium Chloride) 250 mls @ 15 mls/hr IV .[id number] PRN; Protocol; 4 MCG/MIN PRN Reason: TITRATE PER MD ORDER Last Titration: 01/28/18 05:00 Dose: 0 mcg/min, 0 mls/hr Gentamicin Sulfate 80 mg/ (Sodium Chloride) 102 mls @ 100 mls/hr IVPB [facility] [place] PRN Reason: Protocol Last Admin: 01/29/18 21:18 Dose: 100 mls/hr Vancomycin/Sodium Chloride (Vancomycin 1 Gm/Ns 200 Ml) 1 gm in 200 mls @ 133.333 mls/hr IVPB [facility] [place] PRN Reason: Protocol Stop: 02/03/18 10:01 Last Admin: 01/29/18 10:52 Dose: 133.333 mls/hr Meropenem 500 mg/ Sodium (Chloride) 100 mls @ 100 mls/hr IVPB Q12H [facility] PRN Reason: Protocol Last Admin: 01/30/18 21:31 Dose: 100 mls/hr Insulin Human Regular (Novolin R) 0 unit SC ACHS [facility] PRN Reason: Protocol Last Admin: 01/30/18 21:42 Dose: Not Given Lactobacillus Acidophilus (Bacid Acidophilus) 1 cap PO BID [facility] Last Admin: 01/30/18 17:33 Dose: 1 cap Midodrine (Proamatine) 5 mg PO TID [facility] Last Admin: 01/30/18 17:33 Dose: 5 mg Sevelamer Carbonate (Renvela) 0.8 gm NG TIDCC [facility] Last Admin: 01/30/18 17:32 Dose: 0.8 gm Tramadol HCl (Ultram) 50 mg PO TID PRN PRN Reason: Pain, moderate (4-7) Last Admin: 01/30/18 17:35 Dose: 50 mg Vitamin B Complex/Vit C/Folic Acid (Nephro-Carlos) 1 tab PO DAILY [facility] Last Admin: 01/30/18 10:46 Dose: Not Given - Labs Labs: 01/30/18 20:54 01/30/18 20:54 PT 11.1 SECONDS (9.7-12.2) 01/22/18 12:20 INR 1.0 01/22/18 12:20 APTT 27 SECONDS (21-34) 01/22/18 12:20 Assessment and Plan - Assessment and Plan (Free Text) Assessment: Septic shock secondary to infected Left AKA wound 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 EF:40% septum and inferior appears to be moderately hypokinetic * Stress test (01/01/18): LV systolic function is borderline. Ejection Fraction is 50-55%. No stress induced ischemia * On levophed drip * ECHO: mitral valve thickened, can't rule out vegetation. if clinically indicated will need MARY ANN ESRD dialysis MWF monitor BP
[2018-01-31] MEDS: (Novolin R) Insulin Human Regular 100 units/ml vial SC SCH ×4 (07:25→22:25)
[2018-01-31] MEDS: Sevelamer Carb 0.8 gm/Packet NG SCH ×3 (07:26→17:25)
[2018-01-31] MEDS: Lactobacillus Acidophilus 500 MU Cap PO SCH ×2 (09:05→17:25)
[2018-01-31] MEDS: Meropenem 500 MG in Sodium Chloride 0.9% 100 ML IVPB SCH ×3 (09:06→22:25)
[2018-01-31] MEDS: Potassium Chloride 20 mEq ER Tab PO SCH (09:06)
[2018-01-31] MEDS: Multivitamin Vitamin B Complex (Nephro-Vite) Tab PO SCH (09:07)
[2018-01-31] MEDS: Vancomycin 1 gm/NS 200 ml 1 GM/200 ML BAG IVPB SCH ×2 (09:07→09:34)
--- NOTE | 2018-01-31 12:40 | CP.PCM.PN ---
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 PER DR. LANDIN'S NOTES , RECOMMENDING MARY ANN 2/2 TO THE ECHO REPORT FROM 01/28/18. NO DISCUSSION OF MARY ANN IN CARDIOLOGY'S NOTES. DISCUSSED THIS WITH DR. WEISS, WHO AGREES TO DO MARY ANN ON SATURDAY AT 1000. I SPOKE WITH CLARENCE IN CARDIOLOGY AND IT CAN BE ONLY BE DONE ON Saturday02/03/18 AT 1100. NOTIFIED Jacky WEISS OF TIME CHANGE. NPO AFTER MIDNIGHT ON SATURDAY MORNING. DISCUSSED WITH PRIMARY RN ANTHONY. ALSO LEFT MESSAGE FOR DR. REINOSO TO MAKE HIM AWARE OF THE PLAN. NO FURTHER ORDERS. Objective - Vital Signs/Intake and Output Vital Signs (last 24 hours): Temp Pulse Resp BP Pulse Ox 98.1 F 65 20 112/77 95 01/31/18 08:19 01/31/18 08:19 01/31/18 08:19 01/31/18 08:19 01/31/18 08:19 Intake and Output: 01/31/18 01/31/18 06:59 18:59 Intake Total 0 Balance 0 - Medications Medications: Current Medications Acetaminophen (Tylenol 325mg Tab) 650 mg PO Q6 PRN PRN Reason: Fever >100.4 F Last Admin: 01/28/18 10:21 Dose: 650 mg Acetaminophen (Tylenol 325mg Tab) 650 mg PO Q6 PRN PRN Reason: Pain, Mild (1-3) Albumin Human (Albumin Human 25% (12.5 Gm/50 Ml)) 25 gm IV MWF [facility] Last Admin: 01/29/18 19:49 Dose: 25 gm Alprazolam (Xanax) 0.25 mg PO HS PRN PRN Reason: Anxiety Stop: 02/03/18 19:30 Last Admin: 01/30/18 21:34 Dose: 0.25 mg Dextrose (Dextrose 50% Inj) 0 ml IV STAT PRN; Protocol PRN Reason: Hypoglycemia Protocol Dextrose (Glutose 15) 0 gm PO ONCE PRN; Protocol PRN Reason: Hypoglycemia Protocol Emtricitabine/Tenofovir (Truvada 200 Mg-300 Mg) 1 tab PO Q48H [facility] PRN Reason: Protocol Last Admin: 01/30/18 13:36 Dose: 1 tab Epoetin Alonso (Procrit) [facility] Last Admin: 01/29/18 18:27 Dose: 10,000 unit Famotidine (Pepcid) 20 mg PO DAILY [facility] Last Admin: 01/31/18 09:07 Dose: Not Given Glucagon (Glucagen Diagnostic Kit) 0 mg IM STAT PRN; Protocol PRN Reason: Hypoglycemia Protocol Heparin Sodium (Porcine) (Heparin) 5,000 units SC Q8 [facility] Last Admin: 01/30/18 13:38 Dose: 5,000 units Hydrocortisone Sodium Succinate (Solu-Cortef) 50 mg IV Q12H [facility] Last Admin: 01/31/18 11:00 Dose: 50 mg Hydromorphone HCl (Dilaudid) 0.5 mg IVP Q6H PRN PRN Reason: Pain, moderate (4-7) Last Admin: 01/28/18 05:45 Dose: 0.5 mg Norepinephrine Bitartrate 4 mg (/ Sodium Chloride) 250 mls @ 15 mls/hr IV .[id number] PRN; Protocol; 4 MCG/MIN PRN Reason: TITRATE PER MD ORDER Last Titration: 01/28/18 05:00 Dose: 0 mcg/min, 0 mls/hr Gentamicin Sulfate 80 mg/ (Sodium Chloride) 102 mls @ 100 mls/hr IVPB [facility] [place] PRN Reason: Protocol Last Admin: 01/31/18 09:06 Dose: Not Given Vancomycin/Sodium Chloride (Vancomycin 1 Gm/Ns 200 Ml) 1 gm in 200 mls @ 133.333 mls/hr IVPB [facility] [place] PRN Reason: Protocol Stop: 02/03/18 10:01 Last Admin: 01/31/18 09:34 Dose: 133.333 mls/hr Meropenem 500 mg/ Sodium (Chloride) 100 mls @ 100 mls/hr IVPB Q12H [facility] PRN Reason: Protocol Last Admin: 01/31/18 10:47 Dose: 100 mls/hr Insulin Human Regular (Novolin R) 0 unit SC ACHS [facility] PRN Reason: Protocol Last Admin: 01/31/18 11:48 Dose: Not Given Lactobacillus Acidophilus (Bacid Acidophilus) 1 cap PO BID [facility] Last Admin: 01/31/18 09:05 Dose: Not Given Midodrine (Proamatine) 5 mg PO TID [facility] Last Admin: 01/31/18 09:07 Dose: Not Given Potassium Chloride (K-Dur 20 Meq Er Tab) 20 meq PO DAILY [facility] Last Admin: 01/31/18 09:06 Dose: Not Given Sevelamer Carbonate (Renvela) 0.8 gm NG TIDCC [facility] Last Admin: 01/31/18 07:26 Dose: Not Given Tramadol HCl (Ultram) 50 mg PO TID PRN PRN Reason: Pain, moderate (4-7) Last Admin: 01/30/18 17:35 Dose: 50 mg Vitamin B Complex/Vit C/Folic Acid (Nephro-Carlos) 1 tab PO DAILY [facility] Last Admin: 01/31/18 09:07 Dose: Not Given - Labs Labs: 01/30/18 20:54 01/30/18 20:54 PT 11.1 SECONDS (9.7-12.2) 01/22/18 12:20 INR 1.0 01/22/18 12:20 APTT 27 SECONDS (21-34) 01/22/18 12:20
[2018-01-31] MEDS ORDERED: Lidocaine Hydrochloride 10 ML INJ ONE (12:48)
[2018-01-31] MEDS ORDERED: HEPARIN-NS 5,000 UNITS/500 ML 5,000 UNIT/500 ML BAG IV ONE (12:49)
--- NOTE | 2018-01-31 12:53 | CP.PCM.PN ---
Subjective - Date & Time of Evaluation Date of Evaluation: 01/31/18 Time of Evaluation: 12:52 - Subjective Subjective: Nephrology Consultation Note Assessment: stable septic shock with left leg wound infection ? 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 Continue with Nephrovite 1 tab/day. PRBC as needed for anemia. on KEESHA with dialysis as last Hb 9.7 Continue with phos binders, last phos level 3.9 Vit D level (37) and PTH level (23). overall hypercalcemia better Patient not on RAAS leatha as BP low side. Albumin as needed with HD for low BP. maintain hemodynamics stable Glycemic control, Dialysis consistent diet Further work up/management as per primary team Dose meds/antibiotics for ESRD status. Avoid fleets enema/magnesium based laxatives. d/w vascular surgery for permacath exchange Thanks for allowing me to participate in care of your patient. Will follow patient with you. Please call if any Qs. had d/w team Dr Antolin Dominguez Office: [phone] Subjective: Noted events overnight. Patients more communicative today. denies CP /SOB used alteplase 01/29/18 due to catheter dysfunction Physical Examination: General Appearance: in no acute respiratory distress, better appearing Vitals reviewed and noted as below Head; Atraumatic, normocephalic ENT: no ulcers no thrush. Tongue is midline. Oropharynx: no rash or ulcers. EYES: left pupil opacified Neck; supple no lymphadenopathy, no thyromegaly or bruit Lungs: Normal respiratory rate/effort. Breath sounds bilateral equal and clear anteriorly Heart: Normal rate. s1s2 normal. No rub or gallop. Extremities: no edema. No varicose veins. Rt BKA. left AKA with wound dressed Neurological: Patient is communicative and awake alert today Skin: Warm and dry. Normal turgor. No rash. Palpitation: Normal elasticity for age Abdomen: Abdomen is soft. Bowel sounds +. There is no abdominal tenderness, no guarding/rigidity or organomegaly Psych: deferred MSK: no joint tenderness or swelling. Digits and nails normal, no deformity : kidney or bladder not palpable Access: Rt permacath Labs/imaging reviewed. Past medical history, past surgical history, family history, social history, allergy reviewed and noted as below Family Hx: no hx of CKD. Non contributory Objective - Vital Signs/Intake and Output Vital Signs (last 24 hours): Temp Pulse Resp BP Pulse Ox 98.1 F 65 20 112/77 95 01/31/18 08:19 01/31/18 08:19 01/31/18 08:19 01/31/18 08:19 01/31/18 08:19 Intake and Output: 01/31/18 01/31/18 06:59 18:59 Intake Total 0 Balance 0 - Medications Medications: Current Medications Acetaminophen (Tylenol 325mg Tab) 650 mg PO Q6 PRN PRN Reason: Fever >100.4 F Last Admin: 01/28/18 10:21 Dose: 650 mg Acetaminophen (Tylenol 325mg Tab) 650 mg PO Q6 PRN PRN Reason: Pain, Mild (1-3) Albumin Human (Albumin Human 25% (12.5 Gm/50 Ml)) 25 gm IV MWF [facility] Last Admin: 01/29/18 19:49 Dose: 25 gm Alprazolam (Xanax) 0.25 mg PO HS PRN PRN Reason: Anxiety Stop: 02/03/18 19:30 Last Admin: 01/30/18 21:34 Dose: 0.25 mg Dextrose (Dextrose 50% Inj) 0 ml IV STAT PRN; Protocol PRN Reason: Hypoglycemia Protocol Dextrose (Glutose 15) 0 gm PO ONCE PRN; Protocol PRN Reason: Hypoglycemia Protocol Emtricitabine/Tenofovir (Truvada 200 Mg-300 Mg) 1 tab PO Q48H [facility] PRN Reason: Protocol Last Admin: 01/30/18 13:36 Dose: 1 tab Epoetin Alonso (Procrit) 10,000 unit IV MWF [facility] Last Admin: 01/29/18 18:27 Dose: 10,000 unit Famotidine (Pepcid) 20 mg PO DAILY [facility] Last Admin: 01/31/18 09:07 Dose: Not Given Glucagon (Glucagen Diagnostic Kit) 0 mg IM STAT PRN; Protocol PRN Reason: Hypoglycemia Protocol Heparin Sodium (Porcine) (Heparin) 5,000 units SC Q8 [facility] Last Admin: 01/30/18 13:38 Dose: 5,000 units Hydrocortisone Sodium Succinate (Solu-Cortef) 50 mg IV Q12H [facility] Last Admin: 01/31/18 11:00 Dose: 50 mg Hydromorphone HCl (Dilaudid) 0.5 mg IVP Q6H PRN PRN Reason: Pain, moderate (4-7) Last Admin: 01/28/18 05:45 Dose: 0.5 mg Norepinephrine Bitartrate 4 mg (/ Sodium Chloride) 250 mls @ 15 mls/hr IV .[id number] PRN; Protocol; 4 MCG/MIN PRN Reason: TITRATE PER MD ORDER Last Titration: 01/28/18 05:00 Dose: 0 mcg/min, 0 mls/hr Gentamicin Sulfate 80 mg/ (Sodium Chloride) 102 mls @ 100 mls/hr IVPB [facility] [place] PRN Reason: Protocol Last Admin: 01/31/18 09:06 Dose: Not Given Vancomycin/Sodium Chloride (Vancomycin 1 Gm/Ns 200 Ml) 1 gm in 200 mls @ 133.333 mls/hr IVPB [facility] [place] PRN Reason: Protocol Stop: 02/03/18 10:01 Last Admin: 01/31/18 09:34 Dose: 133.333 mls/hr Meropenem 500 mg/ Sodium (Chloride) 100 mls @ 100 mls/hr IVPB Q12H [facility] PRN Reason: Protocol Last Admin: 01/31/18 10:47 Dose: 100 mls/hr Insulin Human Regular (Novolin R) 0 unit SC ACHS [facility] PRN Reason: Protocol Last Admin: 01/31/18 11:48 Dose: Not Given Lactobacillus Acidophilus (Bacid Acidophilus) 1 cap PO BID [facility] Last Admin: 01/31/18 09:05 Dose: Not Given Midodrine (Proamatine) 5 mg PO TID [facility] Last Admin: 01/31/18 09:07 Dose: Not Given Potassium Chloride (K-Dur 20 Meq Er Tab) 20 meq PO DAILY [facility] Last Admin: 01/31/18 09:06 Dose: Not Given Sevelamer Carbonate (Renvela) 0.8 gm NG TIDCC [facility] Last Admin: 01/31/18 07:26 Dose: Not Given Tramadol HCl (Ultram) 50 mg PO TID PRN PRN Reason: Pain, moderate (4-7) Last Admin: 01/30/18 17:35 Dose: 50 mg Vitamin B Complex/Vit C/Folic Acid (Nephro-Carlos) 1 tab PO DAILY [facility] Last Admin: 01/31/18 09:07 Dose: Not Given - Labs Labs: 01/30/18 20:54 01/30/18 20:54 PT 11.1 SECONDS (9.7-12.2) 01/22/18 12:20 INR 1.0 01/22/18 12:20 APTT 27 SECONDS (21-34) 01/22/18 12:20
[2018-01-31] MEDS ORDERED: Propofol 10 mg/ml Inj (20 ML) ONE ×2 (13:07)
[2018-01-31] MEDS ORDERED: Midazolam 2 MG/2 ML VIAL ONE (13:09)
--- NOTE | 2018-01-31 13:55 | PCM.SURG1 ---
Surgeon's Initial Post Op Note - Surgeon's Notes Surgeon: Dr. Aden Sinclair Research Environmental Scientist: Ronaldo Sutton PGY1 Type of Anesthesia: IV Sedation Pre-Operative Diagnosis: ESRD Operative Findings: see operative dictation Post-Operative Diagnosis: same Operation Performed: Right Subclavian Permacatheter Exchange Specimen/Specimens Removed: none Estimated Blood Loss: EBL {In ML}: 5 Blood Products Given: N/A Drains Used: No Drains Post-Op Condition: Good Date of Surgery/Procedure: 01/31/18 Time of Surgery/Procedure: 13:55
--- NOTE | 2018-01-31 14:38 | RAD ---
HISTORY: Permacatheter Exchange COMPARISON: 01/22/2018. FINDINGS: The right-sided dialysis catheter terminates in the right atrium. There is stable appearance of bilateral subclavian endovascular stents. LUNGS: The lungs are well inflated and clear. PLEURA: No significant pleural effusion identified, no pneumothorax apparent. CARDIOVASCULAR: Normal. OSSEOUS STRUCTURES: No significant abnormalities. VISUALIZED UPPER ABDOMEN: Normal. OTHER FINDINGS: None. IMPRESSION: Right-sided dialysis catheter terminates in the right atrium. No acute findings.
--- NOTE | 2018-01-31 14:39 | RAD ---
PROCEDURE: Fluoroscopy up to 1 hr. HISTORY: INSERTION OF DIALYSIS CATH COMPARISON: None TECHNIQUE: Standard protocol for this study/examination. FINDINGS: Total fluoroscopic time 18.8 seconds. Dosimetry 0.076 mGy per meter squared. IMPRESSION: Less than 1 hr fluoroscopic time utilized during performance of the procedure.
--- NOTE | 2018-01-31 14:50 | CP.PCM.PN ---
Subjective - Date & Time of Evaluation Date of Evaluation: 01/31/18 Time of Evaluation: 03:00 - Subjective Subjective: PGY2- Progress Note for Dr. Collins Patient seen and examined at bedside. Patient denies any chest pain, shortness of breath, or abdominal pain. Patient admits to bilateral leg pain. Objective - Vital Signs/Intake and Output Vital Signs (last 24 hours): Temp Pulse Resp BP Pulse Ox 97.4 F L 65 17 131/56 L 100 01/31/18 13:52 01/31/18 14:30 01/31/18 14:30 01/31/18 14:30 01/31/18 14:30 Intake and Output: 01/31/18 01/31/18 06:59 18:59 Intake Total 0 Balance 0 - Medications Medications: Current Medications Acetaminophen (Tylenol 325mg Tab) 650 mg PO Q6 PRN PRN Reason: Fever >100.4 F Last Admin: 01/28/18 10:21 Dose: 650 mg Acetaminophen (Tylenol 325mg Tab) 650 mg PO Q6 PRN PRN Reason: Pain, Mild (1-3) Albumin Human (Albumin Human 25% (12.5 Gm/50 Ml)) 25 gm IV MWF [facility] Last Admin: 01/29/18 19:49 Dose: 25 gm Alprazolam (Xanax) 0.25 mg PO HS PRN PRN Reason: Anxiety Stop: 02/03/18 19:30 Last Admin: 01/30/18 21:34 Dose: 0.25 mg Dextrose (Dextrose 50% Inj) 0 ml IV STAT PRN; Protocol PRN Reason: Hypoglycemia Protocol Dextrose (Glutose 15) 0 gm PO ONCE PRN; Protocol PRN Reason: Hypoglycemia Protocol Emtricitabine/Tenofovir (Truvada 200 Mg-300 Mg) 1 tab PO Q48H [facility] PRN Reason: Protocol Last Admin: 01/30/18 13:36 Dose: 1 tab Epoetin Alonso (Procrit) 10,000 unit IV MWF [facility] Last Admin: 01/29/18 18:27 Dose: 10,000 unit Famotidine (Pepcid) 20 mg PO DAILY [facility] Last Admin: 01/31/18 09:07 Dose: Not Given Glucagon (Glucagen Diagnostic Kit) 0 mg IM STAT PRN; Protocol PRN Reason: Hypoglycemia Protocol Heparin Sodium (Porcine) (Heparin) 5,000 units SC Q8 [facility] Last Admin: 01/30/18 13:38 Dose: 5,000 units Hydrocortisone Sodium Succinate (Solu-Cortef) 50 mg IV Q12H [facility] Last Admin: 01/31/18 11:00 Dose: 50 mg Hydromorphone HCl (Dilaudid) 0.5 mg IVP Q6H PRN PRN Reason: Pain, moderate (4-7) Last Admin: 01/28/18 05:45 Dose: 0.5 mg Norepinephrine Bitartrate 4 mg (/ Sodium Chloride) 250 mls @ 15 mls/hr IV .[id number] PRN; Protocol; 4 MCG/MIN PRN Reason: TITRATE PER MD ORDER Last Titration: 01/28/18 05:00 Dose: 0 mcg/min, 0 mls/hr Vancomycin/Sodium Chloride (Vancomycin 1 Gm/Ns 200 Ml) 1 gm in 200 mls @ 133.333 mls/hr IVPB MWF [facility] PRN Reason: Protocol Stop: 02/03/18 10:01 Last Admin: 01/31/18 09:34 Dose: 133.333 mls/hr Meropenem 500 mg/ Sodium (Chloride) 100 mls @ 100 mls/hr IVPB Q12H [facility] PRN Reason: Protocol Last Admin: 01/31/18 10:47 Dose: 100 mls/hr Insulin Human Regular (Novolin R) 0 unit SC ACHS [facility] PRN Reason: Protocol Last Admin: 01/31/18 11:48 Dose: Not Given Lactobacillus Acidophilus (Bacid Acidophilus) 1 cap PO BID [facility] Last Admin: 01/31/18 09:05 Dose: Not Given Midodrine (Proamatine) 5 mg PO TID [facility] Last Admin: 01/31/18 14:05 Dose: Not Given Potassium Chloride (K-Dur 20 Meq Er Tab) 20 meq PO DAILY [facility] Last Admin: 01/31/18 09:06 Dose: Not Given Sevelamer Carbonate (Renvela) 0.8 gm NG TIDCC [facility] Last Admin: 01/31/18 12:00 Dose: Not Given Tramadol HCl (Ultram) 50 mg PO TID PRN PRN Reason: Pain, moderate (4-7) Last Admin: 01/30/18 17:35 Dose: 50 mg Vitamin B Complex/Vit C/Folic Acid (Nephro-Carlos) 1 tab PO DAILY [facility] Last Admin: 01/31/18 09:07 Dose: Not Given - Labs Labs: 01/30/18 20:54 01/30/18 20:54 PT 11.1 SECONDS (9.7-12.2) 01/22/18 12:20 INR 1.0 01/22/18 12:20 APTT 27 SECONDS (21-34) 01/22/18 12:20 - Additional Findings Additional findings: - Constitutional Appears: Non-toxic, No Acute Distress - Head Exam Head Exam: ATRAUMATIC, NORMAL INSPECTION, NORMOCEPHALIC - ENT Exam ENT Exam: Mucous Membranes Moist - Respiratory Exam Respiratory Exam: NORMAL BREATHING PATTERN - Cardiovascular Exam Cardiovascular Exam: REGULAR RHYTHM, RRR, +S1, +S2 right subclavian permacath covered with c/d/i dressing - GI/Abdominal Exam GI & Abdominal Exam: Soft. absent: Tenderness - Back Exam Additional comments: R BKA, L AKA - Neurological Exam Neurological Exam: Alert, Awake - Psychiatric Exam Psychiatric exam: Anxious - Skin Additional comments: L AKA, incision C/D/I, no erythema/necrotic tissue noted Assessment and Plan - Assessment and Plan (Free Text) Assessment: Assessment: Septic shock secondary to infected Left AKA wound s/p L AKA on 01/01/18 for dry gangrene with revision on 01/23/18 WBC downtrending Blood cultures (01/22/18): Coag negative Staphylococcus X2 Left Leg Thigh (01/22/18): Pseudomonas Aerguinosea Left Thigh (01/23/18): Enterobacter Cloacae Ssp Cloac Repeat blood cultures 01/26/18- negative continue on pain medications, abx per ID, and wound care Hypotension off Levophed drip, transferred out of ICU on 01/29 continue to monitor BP Chronic CHF Systolic dysfunction * Patient has cardiac risk factors: diabetes, hypertension, lipid disorder, no prior hx of [place] * Echocardiogram (01/01/18): limited study for left ventricular ejection fraction. EF:40% septum and inferior appears to be moderately hypokinetic * Stress test (01/01/18): LV systolic function is borderline. Ejection Fraction is 50-55%. No stress induced ischemia * off levophed * ECHO: mitral valve thickened, mobile echogenic density on the anterior mitral valve leaflet consistent with probable vegetation * Patient for MARY ANN on 02/03- will need to be NPO ESRD dialysis MWF monitor BP right subclavian permacath to be exchanged on 01/31/[address] Collins
--- NOTE | 2018-01-31 15:59 | CP.PCM.PN ---
Subjective - Date & Time of Evaluation Date of Evaluation: 01/31/18 Time of Evaluation: 03:55 - Subjective Subjective: dictated Objective - Vital Signs/Intake and Output Vital Signs (last 24 hours): Temp Pulse Resp BP Pulse Ox 97.5 F L 62 16 120/49 L 100 01/31/18 14:40 01/31/18 15:30 01/31/18 15:30 01/31/18 15:30 01/31/18 15:30 Intake and Output: 01/31/18 01/31/18 06:59 18:59 Intake Total 0 300 Output Total 0 Balance 0 300 - Medications Medications: Current Medications Acetaminophen (Tylenol 325mg Tab) 650 mg PO Q6 PRN PRN Reason: Fever >100.4 F Last Admin: 01/28/18 10:21 Dose: 650 mg Acetaminophen (Tylenol 325mg Tab) 650 mg PO Q6 PRN PRN Reason: Pain, Mild (1-3) Albumin Human (Albumin Human 25% (12.5 Gm/50 Ml)) 25 gm IV MWF [facility] Last Admin: 01/29/18 19:49 Dose: 25 gm Alprazolam (Xanax) 0.25 mg PO HS PRN PRN Reason: Anxiety Stop: 02/03/18 19:30 Last Admin: 01/30/18 21:34 Dose: 0.25 mg Dextrose (Dextrose 50% Inj) 0 ml IV STAT PRN; Protocol PRN Reason: Hypoglycemia Protocol Dextrose (Glutose 15) 0 gm PO ONCE PRN; Protocol PRN Reason: Hypoglycemia Protocol Emtricitabine/Tenofovir (Truvada 200 Mg-300 Mg) 1 tab PO Q48H [facility] PRN Reason: Protocol Last Admin: 01/30/18 13:36 Dose: 1 tab Epoetin Alonso (Procrit) 10,000 unit IV MWF [facility] Last Admin: 01/29/18 18:27 Dose: 10,000 unit Famotidine (Pepcid) 20 mg PO DAILY [facility] Last Admin: 01/31/18 09:07 Dose: Not Given Glucagon (Glucagen Diagnostic Kit) 0 mg IM STAT PRN; Protocol PRN Reason: Hypoglycemia Protocol Heparin Sodium (Porcine) (Heparin) 5,000 units SC Q8 [facility] Last Admin: 01/30/18 13:38 Dose: 5,000 units Hydrocortisone Sodium Succinate (Solu-Cortef) 50 mg IV Q12H [facility] Last Admin: 01/31/18 11:00 Dose: 50 mg Hydromorphone HCl (Dilaudid) 0.5 mg IVP Q6H PRN PRN Reason: Pain, moderate (4-7) Last Admin: 01/28/18 05:45 Dose: 0.5 mg Norepinephrine Bitartrate 4 mg (/ Sodium Chloride) 250 mls @ 15 mls/hr IV .[id number] PRN; Protocol; 4 MCG/MIN PRN Reason: TITRATE PER MD ORDER Last Titration: 01/28/18 05:00 Dose: 0 mcg/min, 0 mls/hr Vancomycin/Sodium Chloride (Vancomycin 1 Gm/Ns 200 Ml) 1 gm in 200 mls @ 133.333 mls/hr IVPB MWF [facility] PRN Reason: Protocol Stop: 02/03/18 10:01 Last Admin: 01/31/18 09:34 Dose: 133.333 mls/hr Meropenem 500 mg/ Sodium (Chloride) 100 mls @ 100 mls/hr IVPB Q12H [facility] PRN Reason: Protocol Last Admin: 01/31/18 10:47 Dose: 100 mls/hr Insulin Human Regular (Novolin R) 0 unit SC ACHS [facility] PRN Reason: Protocol Last Admin: 01/31/18 11:48 Dose: Not Given Lactobacillus Acidophilus (Bacid Acidophilus) 1 cap PO BID [facility] Last Admin: 01/31/18 09:05 Dose: Not Given Midodrine (Proamatine) 5 mg PO TID [facility] Last Admin: 01/31/18 14:05 Dose: Not Given Potassium Chloride (K-Dur 20 Meq Er Tab) 20 meq PO DAILY [facility] Last Admin: 01/31/18 09:06 Dose: Not Given Sevelamer Carbonate (Renvela) 0.8 gm NG TIDCC [facility] Last Admin: 01/31/18 12:00 Dose: Not Given Tramadol HCl (Ultram) 50 mg PO TID PRN PRN Reason: Pain, moderate (4-7) Last Admin: 01/30/18 17:35 Dose: 50 mg Vitamin B Complex/Vit C/Folic Acid (Nephro-Carlos) 1 tab PO DAILY [facility] Last Admin: 01/31/18 09:07 Dose: Not Given - Labs Labs: 01/30/18 20:54 01/30/18 20:54 PT 11.1 SECONDS (9.7-12.2) 01/22/18 12:20 INR 1.0 01/22/18 12:20 APTT 27 SECONDS (21-34) 01/22/18 12:20
[2018-01-31] MEDS: Dextrose 50% SYRINGE Inj (50 ml) IV STA ×2 (16:25→16:50)
[2018-01-31] MEDS: Albumin Human 25% (12.5 gm/50 ml) IV SCH ×2 (16:45→19:55)
[2018-01-31] MEDS: Epoetin Alfa 10,000 unit/ml Dialysis IV SCH (18:00)
--- NOTE | 2018-01-31 21:46 | PN ---
DATE: 01/31/2018 SUBJECTIVE: The patient is getting dialysis at this time. The new catheter placed now in the right IJ, and there is a postop note where it states right subclavian Perma-Cath exchange, and she will also need MARY ANN as there is vegetation mentioned. PHYSICAL EXAMINATION/REVIEW OF SYSTEMS: VITAL SIGNS: T-Max 97.5, blood pressure 125/49, respirations are 16, heart rate is 62. GENERAL: The patient is arousable but also bed-bound. She is very drowsy. She denies any complaints at this time. Seems to be calm. CHEST: No chest pain reported. ABDOMEN: No abdominal pain. HEENT: Head is atraumatic and she is blind with low visual acuity. NECK: Supple. LUNGS: Clear. She has a new catheter now for dialysis. HEART: S1 and S2, regular. ABDOMEN: Soft. Nontender. No guarding. No rigidity present. EXTREMITIES: She has a left AKA stump and a right BKA, unable to evaluate the stump. LABORATORY DATA: White count is 9.1, hemoglobin 9.7, hematocrit 29.8, platelet count is 293. Potassium is 3.3. Her last blood cultures were negative on 01/26/2018 and is pending. No report of ____. ASSESSMENT AND PLAN: At this time, the patient did come in with a gangrene of the stump, which has been revised since. She also had blood cultures positive. She got a new catheter now, and we are looking for the echo report to rule out endocarditis, and I will continue vancomycin and Merrem at this time and we will follow. Tammy Villegas MD
--- NOTE | 2018-01-31 22:03 | CP.PCM.PN ---
Subjective - Date & Time of Evaluation Date of Evaluation: 01/31/18 Time of Evaluation: 22:03 - Subjective Subjective: The patient today received hemodialysis. The hemodialysis catheter was exchanged at this morning. She is awake and responding. The blood pressure is slightly better. Still poorly eating On examination: Vital signs stable at this time. Blood pressure is 129/74. Regular heart tone noted. Nontender abdomen. Left above knee amputation, right BKA Chest x-ray done today showing evidence of no CHF. No pneumothorax Hemodialysis catheter in place. Assessment and recommendation: 58-year-old female with a history of HIV, on antiretroviral treatment, CHF, end- stage renal disease on dialysis, diabetes, diabetes related complication, peripheral vascular disease. Recent echocardiogram showing evidence of suspected endocarditis. Spoke to the leadite heater. Family is currently reluctant to have it transesophageal echocardiogram. In my opinion we will discuss with ID for possible intravenous antibiotic during the dialysis for treating endocarditis. We will follow the patient Objective - Vital Signs/Intake and Output Vital Signs (last 24 hours): Temp Pulse Resp BP Pulse Ox 97.5 F L 62 20 129/74 95 01/31/18 18:45 01/31/18 18:45 01/31/18 18:45 01/31/18 18:45 01/31/18 18:45 Intake and Output: 01/31/18 02/01/18 18:59 06:59 Intake Total 300 Output Total 0 Balance 300 - Medications Medications: Current Medications Acetaminophen (Tylenol 325mg Tab) 650 mg PO Q6 PRN PRN Reason: Fever >100.4 F Last Admin: 01/28/18 10:21 Dose: 650 mg Acetaminophen (Tylenol 325mg Tab) 650 mg PO Q6 PRN PRN Reason: Pain, Mild (1-3) Albumin Human (Albumin Human 25% (12.5 Gm/50 Ml)) 25 gm IV MWF [facility] Last Admin: 01/31/18 19:55 Dose: 25 gm Alprazolam (Xanax) 0.25 mg PO HS PRN PRN Reason: Anxiety Stop: 02/03/18 19:30 Last Admin: 01/30/18 21:34 Dose: 0.25 mg Dextrose (Dextrose 50% Inj) 0 ml IV STAT PRN; Protocol PRN Reason: Hypoglycemia Protocol Dextrose (Glutose 15) 0 gm PO ONCE PRN; Protocol PRN Reason: Hypoglycemia Protocol Emtricitabine/Tenofovir (Truvada 200 Mg-300 Mg) 1 tab PO Q48H [facility] PRN Reason: Protocol Last Admin: 01/30/18 13:36 Dose: 1 tab Epoetin Alonso (Procrit) 10,000 unit IV MWF [facility] Last Admin: 01/31/18 18:00 Dose: 10,000 unit Famotidine (Pepcid) 20 mg PO DAILY [facility] Last Admin: 01/31/18 09:07 Dose: Not Given Glucagon (Glucagen Diagnostic Kit) 0 mg IM STAT PRN; Protocol PRN Reason: Hypoglycemia Protocol Heparin Sodium (Porcine) (Heparin) 5,000 units SC Q8 [facility] Last Admin: 01/30/18 13:38 Dose: 5,000 units Hydrocortisone Sodium Succinate (Solu-Cortef) 50 mg IV Q12H [facility] Last Admin: 01/31/18 11:00 Dose: 50 mg Hydromorphone HCl (Dilaudid) 0.5 mg IVP Q6H PRN PRN Reason: Pain, moderate (4-7) Last Admin: 01/28/18 05:45 Dose: 0.5 mg Norepinephrine Bitartrate 4 mg (/ Sodium Chloride) 250 mls @ 15 mls/hr IV .[id number] PRN; Protocol; 4 MCG/MIN PRN Reason: TITRATE PER MD ORDER Last Titration: 01/28/18 05:00 Dose: 0 mcg/min, 0 mls/hr Vancomycin/Sodium Chloride (Vancomycin 1 Gm/Ns 200 Ml) 1 gm in 200 mls @ 133.333 mls/hr IVPB [facility] PRN Reason: Protocol Stop: 02/03/18 10:01 Last Admin: 01/31/18 09:34 Dose: 133.333 mls/hr Meropenem 500 mg/ Sodium (Chloride) 100 mls @ 100 mls/hr IVPB Q12H [facility] PRN Reason: Protocol Last Admin: 01/31/18 10:47 Dose: 100 mls/hr Insulin Human Regular (Novolin R) 0 unit SC ACHS [facility] PRN Reason: Protocol Last Admin: 01/31/18 17:25 Dose: Not Given Lactobacillus Acidophilus (Bacid Acidophilus) 1 cap PO BID [facility] Last Admin: 01/31/18 17:25 Dose: Not Given Midodrine (Proamatine) 5 mg PO TID [facility] Last Admin: 01/31/18 19:20 Dose: Not Given Potassium Chloride (K-Dur 20 Meq Er Tab) 20 meq PO DAILY [facility] Last Admin: 01/31/18 09:06 Dose: Not Given Sevelamer Carbonate (Renvela) 0.8 gm NG TIDCC [facility] Last Admin: 01/31/18 17:25 Dose: Not Given Tramadol HCl (Ultram) 50 mg PO TID PRN PRN Reason: Pain, moderate (4-7) Last Admin: 01/30/18 17:35 Dose: 50 mg Vitamin B Complex/Vit C/Folic Acid (Nephro-Carlos) 1 tab PO DAILY [facility] Last Admin: 01/31/18 09:07 Dose: Not Given - Labs Labs: 01/30/18 20:54 01/30/18 20:54 PT 11.1 SECONDS (9.7-12.2) 01/22/18 12:20 INR 1.0 01/22/18 12:20 APTT 27 SECONDS (21-34) 01/22/18 12:20
--- NOTE | 2018-01-31 23:22 | CP.PCM.PN ---
Subjective - Date & Time of Evaluation Date of Evaluation: 01/31/18 Time of Evaluation: 18:45 - Subjective Subjective: Patient seen and evaluated MARY ANN requested to r/o endocarditis Objective - Vital Signs/Intake and Output Vital Signs (last 24 hours): Temp Pulse Resp BP Pulse Ox 97.5 F L 62 20 129/74 95 01/31/18 18:45 01/31/18 18:45 01/31/18 18:45 01/31/18 18:45 01/31/18 18:45 Intake and Output: 01/31/18 02/01/18 18:59 06:59 Intake Total 300 Output Total 0 Balance 300 - Medications Medications: Current Medications Acetaminophen (Tylenol 325mg Tab) 650 mg PO Q6 PRN PRN Reason: Fever >100.4 F Last Admin: 01/28/18 10:21 Dose: 650 mg Acetaminophen (Tylenol 325mg Tab) 650 mg PO Q6 PRN PRN Reason: Pain, Mild (1-3) Albumin Human (Albumin Human 25% (12.5 Gm/50 Ml)) 25 gm IV MWF [facility] Last Admin: 01/31/18 19:55 Dose: 25 gm Alprazolam (Xanax) 0.25 mg PO HS PRN PRN Reason: Anxiety Stop: 02/03/18 19:30 Last Admin: 01/30/18 21:34 Dose: 0.25 mg Dextrose (Dextrose 50% Inj) 0 ml IV STAT PRN; Protocol PRN Reason: Hypoglycemia Protocol Dextrose (Glutose 15) 0 gm PO ONCE PRN; Protocol PRN Reason: Hypoglycemia Protocol Emtricitabine/Tenofovir (Truvada 200 Mg-300 Mg) 1 tab PO Q48H [facility] PRN Reason: Protocol Last Admin: 01/30/18 13:36 Dose: 1 tab Epoetin Alonso (Procrit) 10,000 unit IV MWF [facility] Last Admin: 01/31/18 18:00 Dose: 10,000 unit Famotidine (Pepcid) 20 mg PO DAILY [facility] Last Admin: 01/31/18 09:07 Dose: Not Given Glucagon (Glucagen Diagnostic Kit) 0 mg IM STAT PRN; Protocol PRN Reason: Hypoglycemia Protocol Heparin Sodium (Porcine) (Heparin) 5,000 units SC Q8 [facility] Last Admin: 01/30/18 13:38 Dose: 5,000 units Hydrocortisone Sodium Succinate (Solu-Cortef) 50 mg IV Q12H [facility] Last Admin: 01/31/18 22:26 Dose: Not Given Hydromorphone HCl (Dilaudid) 0.5 mg IVP Q6H PRN PRN Reason: Pain, moderate (4-7) Last Admin: 01/28/18 05:45 Dose: 0.5 mg Norepinephrine Bitartrate 4 mg (/ Sodium Chloride) 250 mls @ 15 mls/hr IV .[id number] PRN; Protocol; 4 MCG/MIN PRN Reason: TITRATE PER MD ORDER Last Titration: 01/28/18 05:00 Dose: 0 mcg/min, 0 mls/hr Vancomycin/Sodium Chloride (Vancomycin 1 Gm/Ns 200 Ml) 1 gm in 200 mls @ 133.333 mls/hr IVPB MWF [facility] PRN Reason: Protocol Stop: 02/03/18 10:01 Last Admin: 01/31/18 09:34 Dose: 133.333 mls/hr Meropenem 500 mg/ Sodium (Chloride) 100 mls @ 100 mls/hr IVPB Q12H [facility] PRN Reason: Protocol Last Admin: 01/31/18 22:25 Dose: Not Given Insulin Human Regular (Novolin R) 0 unit SC ACHS [facility] PRN Reason: Protocol Last Admin: 01/31/18 22:25 Dose: Not Given Lactobacillus Acidophilus (Bacid Acidophilus) 1 cap PO BID [facility] Last Admin: 01/31/18 17:25 Dose: Not Given Midodrine (Proamatine) 5 mg PO TID [facility] Last Admin: 01/31/18 19:20 Dose: Not Given Potassium Chloride (K-Dur 20 Meq Er Tab) 20 meq PO DAILY [facility] Last Admin: 01/31/18 09:06 Dose: Not Given Sevelamer Carbonate (Renvela) 0.8 gm NG TIDCC [facility] Last Admin: 01/31/18 17:25 Dose: Not Given Tramadol HCl (Ultram) 50 mg PO TID PRN PRN Reason: Pain, moderate (4-7) Last Admin: 01/30/18 17:35 Dose: 50 mg Vitamin B Complex/Vit C/Folic Acid (Nephro-Carlos) 1 tab PO DAILY [facility] Last Admin: 01/31/18 09:07 Dose: Not Given - Labs Labs: 01/30/18 20:54 01/30/18 20:54 PT 11.1 SECONDS (9.7-12.2) 01/22/18 12:20 INR 1.0 01/22/18 12:20 APTT 27 SECONDS (21-34) 01/22/18 12:20
[2018-02-01] MEDS: (Novolin R) Insulin Human Regular 100 units/ml vial SC SCH ×4 (08:26→21:57)
[2018-02-01] MEDS: Sevelamer Carb 0.8 gm/Packet NG SCH ×2 (08:30→17:26)
--- NOTE | 2018-02-01 09:01 | CP.PCM.PN ---
Subjective - Date & Time of Evaluation Date of Evaluation: 02/01/18 Time of Evaluation: 07:20 - Subjective Subjective: Vascular Surgery Progress Note for Dr. Sinclair 58F seen and evaluated this AM. Pt resting comfortably in bed watching tv. Pt is awake, alert this morning and responding to questions appropriately. No acute events overnight. She has pain at the amputation site and mild discomfort near the permacath. Denies any f/c, n/v/d, SOB or CP. Objective - Vital Signs/Intake and Output Vital Signs (last 24 hours): Temp Pulse Resp BP Pulse Ox 98.4 F 76 20 102/70 95 02/01/18 00:00 02/01/18 00:00 02/01/18 00:00 02/01/18 00:00 01/31/18 18:45 Intake and Output: 02/01/18 02/01/18 06:59 18:59 Intake Total 100 Balance 100 - Medications Medications: Current Medications Acetaminophen (Tylenol 325mg Tab) 650 mg PO Q6 PRN PRN Reason: Fever >100.4 F Last Admin: 01/28/18 10:21 Dose: 650 mg Acetaminophen (Tylenol 325mg Tab) 650 mg PO Q6 PRN PRN Reason: Pain, Mild (1-3) Albumin Human (Albumin Human 25% (12.5 Gm/50 Ml)) 25 gm IV MWF [facility] Last Admin: 01/31/18 19:55 Dose: 25 gm Alprazolam (Xanax) 0.25 mg PO HS PRN PRN Reason: Anxiety Stop: 02/03/18 19:30 Last Admin: 01/30/18 21:34 Dose: 0.25 mg Dextrose (Dextrose 50% Inj) 0 ml IV STAT PRN; Protocol PRN Reason: Hypoglycemia Protocol Dextrose (Glutose 15) 0 gm PO ONCE PRN; Protocol PRN Reason: Hypoglycemia Protocol Emtricitabine/Tenofovir (Truvada 200 Mg-300 Mg) 1 tab PO Q48H [facility] PRN Reason: Protocol Last Admin: 01/30/18 13:36 Dose: 1 tab Epoetin Alonso (Procrit) 10,000 unit IV MWF [facility] Last Admin: 01/31/18 18:00 Dose: 10,000 unit Famotidine (Pepcid) 20 mg PO DAILY [facility] Last Admin: 07/06/18 09:07 Dose: Not Given Glucagon (Glucagen Diagnostic Kit) 0 mg IM STAT PRN; Protocol PRN Reason: Hypoglycemia Protocol Heparin Sodium (Porcine) (Heparin) 5,000 units SC Q8 [facility] Last Admin: 01/30/18 13:38 Dose: 5,000 units Hydrocortisone Sodium Succinate (Solu-Cortef) 50 mg IV Q12H [facility] Last Admin: 01/31/18 22:26 Dose: Not Given Hydromorphone HCl (Dilaudid) 0.5 mg IVP Q6H PRN PRN Reason: Pain, moderate (4-7) Last Admin: 01/28/18 05:45 Dose: 0.5 mg Norepinephrine Bitartrate 4 mg (/ Sodium Chloride) 250 mls @ 15 mls/hr IV .[id number] PRN; Protocol; 4 MCG/MIN PRN Reason: TITRATE PER MD ORDER Last Titration: 01/28/18 05:00 Dose: 0 mcg/min, 0 mls/hr Vancomycin/Sodium Chloride (Vancomycin 1 Gm/Ns 200 Ml) 1 gm in 200 mls @ 133.333 mls/hr IVPB MWF [facility] PRN Reason: Protocol Stop: 02/03/18 10:01 Last Admin: 01/31/18 09:34 Dose: 133.333 mls/hr Meropenem 500 mg/ Sodium (Chloride) 100 mls @ 100 mls/hr IVPB Q12H [facility] PRN Reason: Protocol Last Admin: 01/31/18 22:25 Dose: Not Given Insulin Human Regular (Novolin R) 0 unit SC ACHS [facility] PRN Reason: Protocol Last Admin: 02/01/18 08:26 Dose: Not Given Lactobacillus Acidophilus (Bacid Acidophilus) 1 cap PO BID [facility] Last Admin: 01/31/18 17:25 Dose: Not Given Midodrine (Proamatine) 5 mg PO TID [facility] Last Admin: 01/31/18 19:20 Dose: Not Given Potassium Chloride (K-Dur 20 Meq Er Tab) 20 meq PO DAILY [facility] Last Admin: 01/31/18 09:06 Dose: Not Given Sevelamer Carbonate (Renvela) 0.8 gm NG TIDCC [facility] Last Admin: 02/01/18 08:30 Dose: 0.8 gm Tramadol HCl (Ultram) 50 mg PO TID PRN PRN Reason: Pain, moderate (4-7) Last Admin: 01/30/18 17:35 Dose: 50 mg Vitamin B Complex/Vit C/Folic Acid (Nephro-Carlos) 1 tab PO DAILY [facility] Last Admin: 01/31/18 09:07 Dose: Not Given - Labs Labs: 01/30/18 20:54 01/30/18 20:54 PT 11.1 SECONDS (9.7-12.2) 01/22/18 12:20 INR 1.0 01/22/18 12:20 APTT 27 SECONDS (21-34) 01/22/18 12:20 - Constitutional Appears: Well, Non-toxic, No Acute Distress - Head Exam Head Exam: ATRAUMATIC, NORMAL INSPECTION, NORMOCEPHALIC - Eye Exam Eye Exam: EOMI Additional comments: cataract - Respiratory Exam Respiratory Exam: Clear to Ausculation Bilateral, NORMAL BREATHING PATTERN - Cardiovascular Exam Cardiovascular Exam: REGULAR RHYTHM, +S1, +S2. absent: Murmur - GI/Abdominal Exam GI & Abdominal Exam: Soft, Normal Bowel Sounds. absent: Tenderness - Extremities Exam Additional comments: dressings over left leg c/d/i - Neurological Exam Neurological Exam: Alert, Awake - Psychiatric Exam Psychiatric exam: Normal Affect, Normal Mood - Skin Skin Exam: Dry, Intact, Normal Color, Warm Additional comments: dressings over permacath c/d/i no erythema or drainage Assessment and Plan - Assessment and Plan (Free Text) Assessment: 58F s/p L AKA POD9 and permacath exchange POD1 Plan: okay for dialysis c/w abx per ID c/w pain control Wound care further recs per Dr. Yahir Sutton PGY1
[2018-02-01] MEDS: Potassium Chloride 20 mEq ER Tab PO SCH (10:33)
[2018-02-01] MEDS: Multivitamin Vitamin B Complex (Nephro-Vite) Tab PO SCH (10:33)
[2018-02-01] MEDS: Lactobacillus Acidophilus 500 MU Cap PO SCH ×2 (10:34→17:26)
[2018-02-01] MEDS: Meropenem 500 MG in Sodium Chloride 0.9% 100 ML IVPB SCH ×2 (10:39→21:57)
[2018-02-01] MEDS: Emtricitabine-Tenofovir 200 mg-300 mg Tab PO SCH (14:35)
--- NOTE | 2018-02-01 16:25 | CP.PCM.PN ---
Subjective - Date & Time of Evaluation Date of Evaluation: 02/01/18 Time of Evaluation: 16:24 - Subjective Subjective: The patient today received hemodialysis. The hemodialysis catheter was exchanged at this morning. She is awake and responding. The blood pressure is slightly better. Still poorly eating On examination: Vital signs stable at this time. Blood pressure is 129/74. Regular heart tone noted. Nontender abdomen. Left above knee amputation, right BKA Chest x-ray done today showing evidence of no CHF. No pneumothorax Hemodialysis catheter in place. Assessment and recommendation: 58-year-old female with a history of HIV, on antiretroviral treatment, CHF, end- stage renal disease on dialysis, diabetes, diabetes related complication, peripheral vascular disease. Recent echocardiogram showing evidence of suspected endocarditis. 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 Family is currently reluctant to have it transesophageal echocardiogram. In my opinion we will discuss with ID for possible intravenous antibiotic during the dialysis for treating endocarditis. We will follow the patient Objective - Vital Signs/Intake and Output Vital Signs (last 24 hours): Temp Pulse Resp BP Pulse Ox 98.6 F 80 20 90/69 L 97 02/01/18 08:00 02/01/18 08:00 02/01/18 08:00 02/01/18 08:00 02/01/18 08:00 Intake and Output: 02/01/18 02/01/18 06:59 18:59 Intake Total 100 Balance 100 - Medications Medications: Current Medications Acetaminophen (Tylenol 325mg Tab) 650 mg PO Q6 PRN PRN Reason: Fever >100.4 F Last Admin: 01/28/18 10:21 Dose: 650 mg Albumin Human (Albumin Human 25% (12.5 Gm/50 Ml)) 25 gm IV MWF [facility] Last Admin: 01/31/18 19:55 Dose: 25 gm Alprazolam (Xanax) 0.25 mg PO HS PRN PRN Reason: Anxiety Stop: 02/03/18 19:30 Last Admin: 01/30/18 21:34 Dose: 0.25 mg Dextrose (Dextrose 50% Inj) 0 ml IV STAT PRN; Protocol PRN Reason: Hypoglycemia Protocol Dextrose (Glutose 15) 0 gm PO ONCE PRN; Protocol PRN Reason: Hypoglycemia Protocol Emtricitabine/Tenofovir (Truvada 200 Mg-300 Mg) 1 tab PO Q48H [facility] PRN Reason: Protocol Last Admin: 02/01/18 14:35 Dose: 1 tab Epoetin Alonso (Procrit) 10,000 unit IV MWF [facility] Last Admin: 01/31/18 18:00 Dose: 10,000 unit Famotidine (Pepcid) 20 mg PO DAILY [facility] Last Admin: 02/01/18 10:37 Dose: 20 mg Glucagon (Glucagen Diagnostic Kit) 0 mg IM STAT PRN; Protocol PRN Reason: Hypoglycemia Protocol Heparin Sodium (Porcine) (Heparin) 5,000 units SC Q8 [facility] Last Admin: 02/01/18 15:01 Dose: 5,000 units Vancomycin/Sodium Chloride (Vancomycin 1 Gm/Ns 200 Ml) 1 gm in 200 mls @ 133.333 mls/hr IVPB MWF [facility] PRN Reason: Protocol Stop: 02/03/18 10:01 Last Admin: 01/31/18 09:34 Dose: 133.333 mls/hr Meropenem 500 mg/ Sodium (Chloride) 100 mls @ 100 mls/hr IVPB Q12H [facility] PRN Reason: Protocol Last Admin: 02/01/18 10:39 Dose: Not Given Insulin Human Regular (Novolin R) 0 unit SC ACHS [facility] PRN Reason: Protocol Last Admin: 02/01/18 12:37 Dose: Not Given Lactobacillus Acidophilus (Bacid Acidophilus) 1 cap PO BID [facility] Last Admin: 02/01/18 10:34 Dose: 1 cap Midodrine (Proamatine) 5 mg PO TID [facility] Last Admin: 02/01/18 14:33 Dose: Not Given Potassium Chloride (K-Dur 20 Meq Er Tab) 20 meq PO DAILY [facility] Last Admin: 02/01/18 10:33 Dose: 20 meq Prednisone (Prednisone Tab) 20 mg PO DAILY [facility] Last Admin: 02/01/18 14:32 Dose: 20 mg Sevelamer Carbonate (Renvela) 0.8 gm NG TIDCC [facility] Last Admin: 02/01/18 08:30 Dose: 0.8 gm Tramadol HCl (Ultram) 50 mg PO TID PRN PRN Reason: Pain, moderate (4-7) Last Admin: 02/01/18 10:38 Dose: 50 mg Vitamin B Complex/Vit C/Folic Acid (Nephro-Carlos) 1 tab PO DAILY [facility] Last Admin: 02/01/18 10:33 Dose: 1 tab - Labs Labs: 07/05/18 20:54 01/30/18 20:54 PT 11.1 SECONDS (9.7-12.2) 01/22/18 12:20 INR 1.0 01/22/18 12:20 APTT 27 SECONDS (21-34) 01/22/18 12:20
--- NOTE | 2018-02-01 18:17 | CP.PCM.PN ---
Subjective - Date & Time of Evaluation Date of Evaluation: 02/01/18 Time of Evaluation: 18:16 - Subjective Subjective: Nephrology Consultation Note Assessment: stable septic shock with left leg wound infection ? 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 Continue with Nephrovite 1 tab/day. PRBC as needed for anemia. on KEESHA with dialysis as last Hb 9.7 Continue with phos binders, last phos level 3.9 Vit D level (37) and PTH level (23). overall hypercalcemia better Patient not on RAAS leatha as BP low side. Albumin as needed with HD for low BP. maintain hemodynamics stable Glycemic control, Dialysis consistent diet Further work up/management as per primary team Dose meds/antibiotics for ESRD status. Avoid fleets enema/magnesium based laxatives. d/w vascular surgery for permacath exchange, done 01/31/18 Thanks for allowing me to participate in care of your patient. Will follow patient with you. Please call if any Qs. had d/w team Dr Antolin Dominguez Office: [phone] Subjective: Noted events overnight. Patients denies CP/SOB used alteplase 01/29/18 due to catheter dysfunction Physical Examination: General Appearance: in no acute respiratory distress, better appearing Vitals reviewed and noted as below Head; Atraumatic, normocephalic ENT: no ulcers no thrush. Tongue is midline. Oropharynx: no rash or ulcers. EYES: left pupil opacified Neck; supple no lymphadenopathy, no thyromegaly or bruit Lungs: Normal respiratory rate/effort. Breath sounds bilateral equal and clear anteriorly Heart: Normal rate. s1s2 normal. No rub or gallop. Extremities: no edema. No varicose veins. Rt BKA. left AKA with wound dressed Neurological: Patient is communicative and awake alert today Skin: Warm and dry. Normal turgor. No rash. Palpitation: Normal elasticity for age Abdomen: Abdomen is soft. Bowel sounds +. There is no abdominal tenderness, no guarding/rigidity or organomegaly Psych: deferred MSK: no joint tenderness or swelling. Digits and nails normal, no deformity : kidney or bladder not palpable Access: Rt permacath Labs/imaging reviewed. Past medical history, past surgical history, family history, social history, allergy reviewed and noted as below Family Hx: no hx of CKD. Non contributory Objective - Vital Signs/Intake and Output Vital Signs (last 24 hours): Temp Pulse Resp BP Pulse Ox 98.6 F 80 20 90/69 L 97 02/01/18 08:00 02/01/18 08:00 02/01/18 08:00 02/01/18 08:00 02/01/18 08:00 Intake and Output: 02/01/18 02/01/18 06:59 18:59 Intake Total 100 Balance 100 - Medications Medications: Current Medications Acetaminophen (Tylenol 325mg Tab) 650 mg PO Q6 PRN PRN Reason: Fever >100.4 F Last Admin: 01/28/18 10:21 Dose: 650 mg Albumin Human (Albumin Human 25% (12.5 Gm/50 Ml)) 25 gm IV MWF [facility] Last Admin: 01/31/18 19:55 Dose: 25 gm Alprazolam (Xanax) 0.25 mg PO HS PRN PRN Reason: Anxiety Stop: 02/03/18 19:30 Last Admin: 01/30/18 21:34 Dose: 0.25 mg Dextrose (Dextrose 50% Inj) 0 ml IV STAT PRN; Protocol PRN Reason: Hypoglycemia Protocol Dextrose (Glutose 15) 0 gm PO ONCE PRN; Protocol PRN Reason: Hypoglycemia Protocol Emtricitabine/Tenofovir (Truvada 200 Mg-300 Mg) 1 tab PO Q48H [facility] PRN Reason: Protocol Last Admin: 02/01/18 14:35 Dose: 1 tab Epoetin Alonso (Procrit) 10,000 unit IV MWF [facility] Last Admin: 01/31/18 18:00 Dose: 10,000 unit Famotidine (Pepcid) 20 mg PO DAILY [facility] Last Admin: 02/01/18 10:37 Dose: 20 mg Glucagon (Glucagen Diagnostic Kit) 0 mg IM STAT PRN; Protocol PRN Reason: Hypoglycemia Protocol Heparin Sodium (Porcine) (Heparin) 5,000 units SC Q8 [facility] Last Admin: 02/01/18 15:01 Dose: 5,000 units Vancomycin/Sodium Chloride (Vancomycin 1 Gm/Ns 200 Ml) 1 gm in 200 mls @ 133.333 mls/hr IVPB MWF [facility] PRN Reason: Protocol Stop: 02/03/18 10:01 Last Admin: 01/31/18 09:34 Dose: 133.333 mls/hr Meropenem 500 mg/ Sodium (Chloride) 100 mls @ 100 mls/hr IVPB Q12H [facility] PRN Reason: Protocol Last Admin: 02/01/18 10:39 Dose: Not Given Insulin Human Regular (Novolin R) 0 unit SC ACHS [facility] PRN Reason: Protocol Last Admin: 02/01/18 17:10 Dose: Not Given Lactobacillus Acidophilus (Bacid Acidophilus) 1 cap PO BID [facility] Last Admin: 02/01/18 17:26 Dose: 1 cap Midodrine (Proamatine) 5 mg PO TID [facility] Last Admin: 02/01/18 17:32 Dose: 5 mg Potassium Chloride (K-Dur 20 Meq Er Tab) 20 meq PO DAILY [facility] Last Admin: 02/01/18 10:33 Dose: 20 meq Prednisone (Prednisone Tab) 20 mg PO DAILY [facility] Last Admin: 02/01/18 14:32 Dose: 20 mg Sevelamer Carbonate (Renvela) 0.8 gm NG TIDCC [facility] Last Admin: 02/01/18 17:26 Dose: 0.8 gm Tramadol HCl (Ultram) 50 mg PO TID PRN PRN Reason: Pain, moderate (4-7) Last Admin: 02/01/18 10:38 Dose: 50 mg Vitamin B Complex/Vit C/Folic Acid (Nephro-Carlos) 1 tab PO DAILY [facility] Last Admin: 02/01/18 10:33 Dose: 1 tab - Labs Labs: 01/30/18 20:54 01/30/18 20:54 PT 11.1 SECONDS (9.7-12.2) 01/22/18 12:20 INR 1.0 01/22/18 12:20 APTT 27 SECONDS (21-34) 01/22/18 12:20
[2018-02-02] MEDS: (Novolin R) Insulin Human Regular 100 units/ml vial SC SCH ×4 (08:11→21:59)
[2018-02-02] MEDS: Sevelamer Carb 0.8 gm/Packet NG SCH ×3 (08:53→17:52)
[2018-02-02] MEDS: Meropenem 500 MG in Sodium Chloride 0.9% 100 ML IVPB SCH ×2 (08:59→21:58)
[2018-02-02] MEDS: Lactobacillus Acidophilus 500 MU Cap PO SCH ×2 (09:00→17:53)
[2018-02-02] MEDS: Multivitamin Vitamin B Complex (Nephro-Vite) Tab PO SCH (09:01)
[2018-02-02] MEDS: Potassium Chloride 20 mEq ER Tab PO SCH (09:02)
--- NOTE | 2018-02-02 11:58 | CP.PCM.PN ---
Subjective - Date & Time of Evaluation Date of Evaluation: 02/02/18 Time of Evaluation: 11:57 - Subjective Subjective: Nephrology Consultation Note Assessment: stable septic shock with left leg wound infection ? 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 Continue with Nephrovite 1 tab/day. PRBC as needed for anemia. on KEESHA with dialysis as last Hb 9.7 Continue with phos binders, last phos level 3.9 Vit D level (37) and PTH level (23). overall hypercalcemia better Patient not on RAAS leatha as BP low side. Albumin as needed with HD for low BP. maintain hemodynamics stable Glycemic control, Dialysis consistent diet Further work up/management as per primary team Dose meds/antibiotics for ESRD status. Avoid fleets enema/magnesium based laxatives. d/w vascular surgery for permacath exchange, done 01/31/18 Thanks for allowing me to participate in care of your patient. Will follow patient with you. Please call if any Qs. had d/w team Dr Antolin Dominguez Office: [phone] Subjective: Noted events overnight. Patients denies CP/SOB used alteplase 01/29/18 due to catheter dysfunction Physical Examination: General Appearance: in no acute respiratory distress, better appearing Vitals reviewed and noted as below Head; Atraumatic, normocephalic ENT: no ulcers no thrush. Tongue is midline. Oropharynx: no rash or ulcers. EYES: left pupil opacified Neck; supple no lymphadenopathy, no thyromegaly or bruit Lungs: Normal respiratory rate/effort. Breath sounds bilateral equal and clear anteriorly Heart: Normal rate. s1s2 normal. No rub or gallop. Extremities: no edema. No varicose veins. Rt BKA. left AKA with wound dressed Neurological: Patient is communicative and awake alert today Skin: Warm and dry. Normal turgor. No rash. Palpitation: Normal elasticity for age Abdomen: Abdomen is soft. Bowel sounds +. There is no abdominal tenderness, no guarding/rigidity or organomegaly Psych: deferred MSK: no joint tenderness or swelling. Digits and nails normal, no deformity : kidney or bladder not palpable Access: Rt permacath Labs/imaging reviewed. Past medical history, past surgical history, family history, social history, allergy reviewed and noted as below Family Hx: no hx of CKD. Non contributory Objective - Vital Signs/Intake and Output Vital Signs (last 24 hours): Temp Pulse Resp BP Pulse Ox 97.6 F 69 20 105/68 99 02/02/18 08:00 02/02/18 08:00 02/02/18 08:00 02/02/18 08:00 02/02/18 08:00 Intake and Output: 02/02/18 02/02/18 06:59 18:59 Intake Total 180 Balance 180 - Medications Medications: Current Medications Acetaminophen (Tylenol 325mg Tab) 650 mg PO Q6 PRN PRN Reason: Fever >100.4 F Last Admin: 01/28/18 10:21 Dose: 650 mg Albumin Human (Albumin Human 25% (12.5 Gm/50 Ml)) 25 gm IV MWF [facility] Last Admin: 01/31/18 19:55 Dose: 25 gm Alprazolam (Xanax) 0.25 mg PO HS PRN PRN Reason: Anxiety Stop: 02/03/18 19:30 Last Admin: 02/02/18 00:12 Dose: 0.25 mg Dextrose (Dextrose 50% Inj) 0 ml IV STAT PRN; Protocol PRN Reason: Hypoglycemia Protocol Dextrose (Glutose 15) 0 gm PO ONCE PRN; Protocol PRN Reason: Hypoglycemia Protocol Emtricitabine/Tenofovir (Truvada 200 Mg-300 Mg) 1 tab PO Q48H [facility] PRN Reason: Protocol Last Admin: 02/01/18 14:35 Dose: 1 tab Epoetin Alonso (Procrit) 10,000 unit IV MWF [facility] Last Admin: 01/31/18 18:00 Dose: 10,000 unit Famotidine (Pepcid) 20 mg PO DAILY [facility] Last Admin: 02/02/18 09:00 Dose: 20 mg Glucagon (Glucagen Diagnostic Kit) 0 mg IM STAT PRN; Protocol PRN Reason: Hypoglycemia Protocol Heparin Sodium (Porcine) (Heparin) 5,000 units SC Q8 [facility] Last Admin: 02/02/18 05:51 Dose: 5,000 units Vancomycin/Sodium Chloride (Vancomycin 1 Gm/Ns 200 Ml) 1 gm in 200 mls @ 133.333 mls/hr IVPB MWF [facility] PRN Reason: Protocol Stop: 02/03/18 10:01 Last Admin: 01/31/18 09:34 Dose: 133.333 mls/hr Meropenem 500 mg/ Sodium (Chloride) 100 mls @ 100 mls/hr IVPB Q12H [facility] PRN Reason: Protocol Last Admin: 02/02/18 08:59 Dose: Not Given Insulin Human Regular (Novolin R) 0 unit SC ACHS [facility] PRN Reason: Protocol Last Admin: 02/02/18 11:40 Dose: Not Given Lactobacillus Acidophilus (Bacid Acidophilus) 1 cap PO BID [facility] Last Admin: 02/02/18 09:00 Dose: 1 cap Midodrine (Proamatine) 5 mg PO TID [facility] Last Admin: 02/02/18 09:02 Dose: Not Given Potassium Chloride (K-Dur 20 Meq Er Tab) 20 meq PO DAILY [facility] Last Admin: 02/02/18 09:02 Dose: Not Given Prednisone (Prednisone Tab) 20 mg PO DAILY [facility] Last Admin: 02/02/18 09:02 Dose: 20 mg Sevelamer Carbonate (Renvela) 0.8 gm NG TIDCC [facility] Last Admin: 02/02/18 11:40 Dose: 0.8 gm Tramadol HCl (Ultram) 50 mg PO TID PRN PRN Reason: Pain, moderate (4-7) Last Admin: 02/02/18 04:02 Dose: 50 mg Vitamin B Complex/Vit C/Folic Acid (Nephro-Carlos) 1 tab PO DAILY [facility] Last Admin: 02/02/18 09:01 Dose: Not Given - Labs Labs: 01/30/18 20:54 01/30/18 20:54 PT 11.1 SECONDS (9.7-12.2) 01/22/18 12:20 INR 1.0 01/22/18 12:20 APTT 27 SECONDS (21-34) 01/22/18 12:20
[2018-02-02 14:34] LABS: CALCIUM 7.8 mg/dl (8.6-10.4)
--- NOTE | 2018-02-02 17:24 | CP.PCM.PN ---
Subjective - Date & Time of Evaluation Date of Evaluation: 02/02/18 Time of Evaluation: 03:00 - Subjective Subjective: dictated Objective - Vital Signs/Intake and Output Vital Signs (last 24 hours): Temp Pulse Resp BP Pulse Ox 97.8 F 78 20 97/59 L 99 02/02/18 15:00 02/02/18 15:00 02/02/18 15:00 02/02/18 15:00 02/02/18 08:00 Intake and Output: 02/02/18 02/02/18 06:59 18:59 Intake Total 180 Balance 180 - Medications Medications: Current Medications Acetaminophen (Tylenol 325mg Tab) 650 mg PO Q6 PRN PRN Reason: Fever >100.4 F Last Admin: 01/28/18 10:21 Dose: 650 mg Albumin Human (Albumin Human 25% (12.5 Gm/50 Ml)) [facility] Last Admin: 01/31/18 19:55 Dose: 25 gm Alprazolam (Xanax) 0.25 mg PO HS PRN PRN Reason: Anxiety Stop: 02/03/18 19:30 Last Admin: 02/02/18 00:12 Dose: 0.25 mg Dextrose (Dextrose 50% Inj) 0 ml IV STAT PRN; Protocol PRN Reason: Hypoglycemia Protocol Dextrose (Glutose 15) 0 gm PO ONCE PRN; Protocol PRN Reason: Hypoglycemia Protocol Emtricitabine/Tenofovir (Truvada 200 Mg-300 Mg) 1 tab PO Q48H [facility] PRN Reason: Protocol Last Admin: 02/01/18 14:35 Dose: 1 tab Epoetin Alonso (Procrit) 10,000 unit IV MWF [facility] Last Admin: 01/31/18 18:00 Dose: 10,000 unit Famotidine (Pepcid) 20 mg PO DAILY [facility] Last Admin: 02/02/18 09:00 Dose: 20 mg Glucagon (Glucagen Diagnostic Kit) 0 mg IM STAT PRN; Protocol PRN Reason: Hypoglycemia Protocol Heparin Sodium (Porcine) (Heparin) 5,000 units SC Q8 [facility] Last Admin: 02/02/18 14:02 Dose: 5,000 units Vancomycin/Sodium Chloride (Vancomycin 1 Gm/Ns 200 Ml) 1 gm in 200 mls @ 133.333 mls/hr [place]PB [facility] [place]N Reason: Protocol Stop: 02/03/18 10:01 Last Admin: 01/31/18 09:34 Dose: 133.333 mls/hr Meropenem 500 mg/ Sodium (Chloride) 100 mls @ 100 mls/hr IVPB Q12H [facility] PRN Reason: Protocol Last Admin: 02/02/18 08:59 Dose: Not Given Insulin Human Regular (Novolin R) 0 unit SC ACHS [facility] PRN Reason: Protocol Last Admin: 02/02/18 11:40 Dose: Not Given Lactobacillus Acidophilus (Bacid Acidophilus) 1 cap PO BID [facility] Last Admin: 02/02/18 09:00 Dose: 1 cap Midodrine (Proamatine) 5 mg PO TID [facility] Last Admin: 02/02/18 14:10 Dose: Not Given Potassium Chloride (K-Dur 20 Meq Er Tab) 20 meq PO DAILY [facility] Last Admin: 02/02/18 09:02 Dose: Not Given Prednisone (Prednisone Tab) 20 mg PO DAILY [facility] Last Admin: 02/02/18 09:02 Dose: 20 mg Sevelamer Carbonate (Renvela) 0.8 gm NG TIDCC [facility] Last Admin: 02/02/18 11:40 Dose: 0.8 gm Tramadol HCl (Ultram) 50 mg PO TID PRN PRN Reason: Pain, moderate (4-7) Last Admin: 02/02/18 04:02 Dose: 50 mg Vitamin B Complex/Vit C/Folic Acid (Nephro-Carlos) 1 tab PO DAILY [facility] Last Admin: 02/02/18 09:01 Dose: Not Given - Labs Labs: 01/30/18 20:54 02/02/18 14:10 PT 11.1 SECONDS (9.7-12.2) 01/22/18 12:20 INR 1.0 01/22/18 12:20 APTT 27 SECONDS (21-34) 01/22/18 12:20
--- NOTE | 2018-02-02 20:02 | CP.PCM.PN ---
Subjective - Date & Time of Evaluation Date of Evaluation: 02/02/18 Time of Evaluation: 20:01 - Subjective Subjective: Patient is awake and responding. No pain noted. Will be getting the hemodialysis tomorrow. Will hold off the n.p.o. As discussed with the cardiology, because of the high risk that transesophageal echocardiogram is off. 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 Patient will need antibiotic as per ID. We will discuss with ID tomorrow about the duration. And will follow the patient Objective - Vital Signs/Intake and Output Vital Signs (last 24 hours): Temp Pulse Resp BP Pulse Ox 97.8 F 78 20 97/59 L 99 02/02/18 15:00 02/02/18 15:00 02/02/18 15:00 02/02/18 15:00 02/02/18 08:00 - Medications Medications: Current Medications Acetaminophen (Tylenol 325mg Tab) 650 mg PO Q6 PRN PRN Reason: Fever >100.4 F Last Admin: 01/28/18 10:21 Dose: 650 mg Albumin Human (Albumin Human 25% (12.5 Gm/50 Ml)) 25 gm IV MWF [facility] Last Admin: 01/31/18 19:55 Dose: 25 gm Alprazolam (Xanax) 0.25 mg PO HS PRN PRN Reason: Anxiety Stop: 02/03/18 19:30 Last Admin: 02/02/18 00:12 Dose: 0.25 mg Dextrose (Dextrose 50% Inj) 0 ml IV STAT PRN; Protocol PRN Reason: Hypoglycemia Protocol Dextrose (Glutose 15) 0 gm PO ONCE PRN; Protocol PRN Reason: Hypoglycemia Protocol Emtricitabine/Tenofovir (Truvada 200 Mg-300 Mg) 1 tab PO Q48H [facility] PRN Reason: Protocol Last Admin: 02/01/18 14:35 Dose: 1 tab Epoetin Alonso (Procrit) 10,000 unit IV MWF [facility] Last Admin: 01/31/18 18:00 Dose: 10,000 unit Famotidine (Pepcid) 20 mg PO DAILY [facility] Last Admin: 02/02/18 09:00 Dose: 20 mg Glucagon (Glucagen Diagnostic Kit) 0 mg IM STAT PRN; Protocol PRN Reason: Hypoglycemia Protocol Heparin Sodium (Porcine) (Heparin) 5,000 units SC Q8 [facility] Last Admin: 02/02/18 14:02 Dose: 5,000 units Vancomycin/Sodium Chloride (Vancomycin 1 Gm/Ns 200 Ml) 1 gm in 200 mls @ 133.333 mls/hr IVPB MWF [facility] PRN Reason: Protocol Stop: 02/03/18 10:01 Last Admin: 01/31/18 09:34 Dose: 133.333 mls/hr Meropenem 500 mg/ Sodium (Chloride) 100 mls @ 100 mls/hr IVPB Q12H [facility] PRN Reason: Protocol Last Admin: 02/02/18 08:59 Dose: Not Given Insulin Human Regular (Novolin R) 0 unit SC ACHS [facility] PRN Reason: Protocol Last Admin: 02/02/18 17:10 Dose: 6 unit Lactobacillus Acidophilus (Bacid Acidophilus) 1 cap PO BID [facility] Last Admin: 02/02/18 17:53 Dose: 1 cap Midodrine (Proamatine) 5 mg PO TID [facility] Last Admin: 02/02/18 17:53 Dose: 5 mg Potassium Chloride (K-Dur 20 Meq Er Tab) 20 meq PO DAILY [facility] Last Admin: 02/02/18 09:02 Dose: Not Given Prednisone (Prednisone Tab) 20 mg PO DAILY [facility] Last Admin: 02/02/18 09:02 Dose: 20 mg Sevelamer Carbonate (Renvela) 0.8 gm NG TIDCC [facility] Last Admin: 02/02/18 17:52 Dose: 0.8 gm Tramadol HCl (Ultram) 50 mg PO TID PRN PRN Reason: Pain, moderate (4-7) Last Admin: 02/02/18 04:02 Dose: 50 mg Vitamin B Complex/Vit C/Folic Acid (Nephro-Carlos) 1 tab PO DAILY [facility] Last Admin: 02/02/18 09:01 Dose: Not Given - Labs Labs: 01/30/18 20:54 02/02/18 14:10 PT 11.1 SECONDS (9.7-12.2) 01/22/18 12:20 INR 1.0 01/22/18 12:20 APTT 27 SECONDS (21-34) 01/22/18 12:20
--- NOTE | 2018-02-02 22:01 | PN ---
DATE: 02/02/2018 SUBJECTIVE: The patient was arousable today. I told her that she needs a test to be done to look over her heart valve, and she seems to refuse it. We will discuss it tomorrow again. She is mostly very drowsy but it seems that she was denying it. PHYSICAL EXAMINATION: VITAL SIGNS: T-max is 97.8; pulse 78; blood pressure is on the low side, 97/59; respirations at 20. She is running low with her IV sites. HEENT: Head is atraumatic. NECK: Supple. LUNGS: Clear. HEART: S1 and S2 are regular. ABDOMEN: Soft and nontender. No guarding, no rigidity present. EXTREMITIES: Left stump has a dressing. Right BKA is unremarkable. LABORATORY DATA: Her white count was normal at 9.1, but she came in with septic shock and with infection of the left leg stump, and now her blood cultures were coagulase negative. ASSESSMENT AND PLAN: We obtained the catheter also which was done on 01/31/2018. 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 For any reason, she does not get a transesophageal echocardiography done. Then, she will have to continue vancomycin on dialysis days, and that is the only way I think. If she refuses a transesophageal echocardiography, I would continue vancomycin on dialysis and at present, she was also on Merrem, but now we are running out of intravenous sites, and so she did not get , so I would discuss this situation with Dr. Bonilla and see if she can receive vancomycin on dialysis days. The culture was positive on 01/22/2018, so I would like to give this until 02/22/2018, which is another three weeks. We will follow up. She also has human immunodeficiency virus disease for which she is on medications. Tammy Villegas MD
--- NOTE | 2018-02-02 23:00 | CP.PCM.PN ---
Subjective - Date & Time of Evaluation Date of Evaluation: 02/02/18 Time of Evaluation: 17:20 - Subjective Subjective: Patient seen and evaluated denies chest pain, dyspnea or fever Left message for son ID recommends MARY ANN Possible MARY ANN Saturday if patient and son agrees Objective - Vital Signs/Intake and Output Vital Signs (last 24 hours): Temp Pulse Resp BP Pulse Ox 97.8 F 78 20 97/59 L 99 02/02/18 15:00 02/02/18 15:00 02/02/18 15:00 02/02/18 15:00 02/02/18 08:00 Intake and Output: 02/02/18 02/03/18 18:59 06:59 Intake Total 100 Balance 100 - Medications Medications: Current Medications Acetaminophen (Tylenol 325mg Tab) 650 mg PO Q6 PRN PRN Reason: Fever >100.4 F Last Admin: 01/28/18 10:21 Dose: 650 mg Albumin Human (Albumin Human 25% (12.5 Gm/50 Ml)) 25 gm IV MWF [facility] Last Admin: 01/31/18 19:55 Dose: 25 gm Alprazolam (Xanax) 0.25 mg PO HS PRN PRN Reason: Anxiety Stop: 02/03/18 19:30 Last Admin: 02/02/18 00:12 Dose: 0.25 mg Dextrose (Dextrose 50% Inj) 0 ml IV STAT PRN; Protocol PRN Reason: Hypoglycemia Protocol Dextrose (Glutose 15) 0 gm PO ONCE PRN; Protocol PRN Reason: Hypoglycemia Protocol Emtricitabine/Tenofovir (Truvada 200 Mg-300 Mg) 1 tab PO Q48H [facility] PRN Reason: Protocol Last Admin: 02/01/18 14:35 Dose: 1 tab Epoetin Alonso (Procrit) 10,000 unit IV MWF [facility] Last Admin: 01/31/18 18:00 Dose: 10,000 unit Famotidine (Pepcid) 20 mg PO DAILY [facility] Last Admin: 02/02/18 09:00 Dose: 20 mg Glucagon (Glucagen Diagnostic Kit) 0 mg IM STAT PRN; Protocol PRN Reason: Hypoglycemia Protocol Heparin Sodium (Porcine) (Heparin) 5,000 units SC Q8 [facility] Last Admin: 02/02/18 22:00 Dose: 5,000 units Vancomycin/Sodium Chloride (Vancomycin 1 Gm/Ns 200 Ml) 1 gm in 200 mls @ 133.333 mls/hr IVPB MWF [facility] PRN Reason: Protocol Stop: 02/03/18 10:01 Last Admin: 01/31/18 09:34 Dose: 133.333 mls/hr Meropenem 500 mg/ Sodium (Chloride) 100 mls @ 100 mls/hr IVPB Q12H [facility] PRN Reason: Protocol Last Admin: 02/02/18 21:58 Dose: Not Given Insulin Human Regular (Novolin R) 0 unit SC ACHS [facility] PRN Reason: Protocol Last Admin: 02/02/18 21:59 Dose: Not Given Lactobacillus Acidophilus (Bacid Acidophilus) 1 cap PO BID [facility] Last Admin: 02/02/18 17:53 Dose: 1 cap Midodrine (Proamatine) 5 mg PO TID [facility] Last Admin: 02/02/18 17:53 Dose: 5 mg Potassium Chloride (K-Dur 20 Meq Er Tab) 20 meq PO DAILY [facility] Last Admin: 02/02/18 09:02 Dose: Not Given Prednisone (Prednisone Tab) 20 mg PO DAILY [facility] Last Admin: 02/02/18 09:02 Dose: 20 mg Sevelamer Carbonate (Renvela) 0.8 gm NG TIDCC [facility] Last Admin: 02/02/18 17:52 Dose: 0.8 gm Tramadol HCl (Ultram) 50 mg PO TID PRN PRN Reason: Pain, moderate (4-7) Last Admin: 02/02/18 04:02 Dose: 50 mg Vitamin B Complex/Vit C/Folic Acid (Nephro-Carlos) 1 tab PO DAILY [facility] Last Admin: 02/02/18 09:01 Dose: Not Given - Labs Labs: 01/30/18 20:54 02/02/18 14:10 PT 11.1 SECONDS (9.7-12.2) 01/22/18 12:20 INR 1.0 01/22/18 12:20 APTT 27 SECONDS (21-34) 01/22/18 12:20
[2018-02-03] MEDS: (Novolin R) Insulin Human Regular 100 units/ml vial SC SCH ×3 (07:44→16:30)
[2018-02-03] MEDS: Lactobacillus Acidophilus 500 MU Cap PO SCH ×2 (09:00→17:43)
[2018-02-03] MEDS: Sevelamer Carb 0.8 gm/Packet NG SCH ×3 (09:00→17:43)
[2018-02-03] MEDS: Potassium Chloride 20 mEq ER Tab PO SCH (09:00)
[2018-02-03] MEDS: Multivitamin Vitamin B Complex (Nephro-Vite) Tab PO SCH (09:00)
[2018-02-03] MEDS: Emtricitabine-Tenofovir 200 mg-300 mg Tab PO SCH ×2 (09:07→14:45)
--- NOTE | 2018-02-03 09:51 | OP ---
PROCEDURE DATE: 01/31/2018 PREOPERATIVE DIAGNOSES: Possible port infection, malfunctioning Perm-A-Cath. POSTOPERATIVE DIAGNOSES: Possible port infection, malfunctioning Perm-A-Cath. PROCEDURE CARRIED OUT: Removal of Perm-A-Cath and placement of a new Perm-A-Cath through the right subclavian vein with C-arm fluoroscopy. SURGEON: Aden Sinclair Jr., MD. RADIO FREQUENCY DESIGN ENGINEER: Ronaldo Grande. ANESTHESIOLOGIST: Jf Morales INDICATIONS: A 58-year-old woman with multiple medical problems and only catheter existent in her right subclavian vein. OPERATIVE FINDINGS: The old catheter was removed. There was no pus, purulence, etc., around it. A wire was inserted through this. New catheter was then placed in the lower position closer to the right ventricle. It was flushed with heparinized saline with good return and the procedure was terminated. Blood loss for the procedure was 20 mL. Operation carried out is Perm-A-Cath to the right subclavian vein. Catheter originated on the right chest wall, went through the subclavian vein, and terminated in superior vena cava and right atrium. Aden Sinclair Jr., MD
[2018-02-03] MEDS: Vancomycin 1 gm/NS 200 ml 1 GM/200 ML BAG IVPB SCH (11:39)
[2018-02-03] MEDS: Meropenem 500 MG in Sodium Chloride 0.9% 100 ML IVPB SCH (11:39)
--- NOTE | 2018-02-03 12:23 | CP.PCM.PN ---
Subjective - Date & Time of Evaluation Date of Evaluation: 02/03/18 Time of Evaluation: 12:22 - Subjective Subjective: Nephrology Consultation Note Assessment: stable septic shock with left leg wound infection ? 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 Continue with Nephrovite 1 tab/day. PRBC as needed for anemia. on KEESHA with dialysis as last Hb 9.7 Continue with phos binders, last phos level 3.9 Vit D level (37) and PTH level (23). overall hypercalcemia better Patient not on RAAS leatha as BP low side. Albumin as needed with HD for low BP. maintain hemodynamics stable Glycemic control, Dialysis consistent diet Further work up/management as per primary team Dose meds/antibiotics for ESRD status. Avoid fleets enema/magnesium based laxatives. d/w vascular surgery for permacath exchange, done 01/31/18 stop daily KCL supplements, can give as needed basis for hypokalemia Thanks for allowing me to participate in care of your patient. Will follow patient with you. Please call if any Qs. had d/w team Dr Antolin Dominguez Office: [phone] Subjective: Noted events overnight. Patients denies CP/SOB. feels usual health used alteplase 01/29/18 due to catheter dysfunction Physical Examination: General Appearance: in no acute respiratory distress, better appearing Vitals reviewed and noted as below Head; Atraumatic, normocephalic ENT: no ulcers no thrush. Tongue is midline. Oropharynx: no rash or ulcers. EYES: left pupil opacified Neck; supple no lymphadenopathy, no thyromegaly or bruit Lungs: Normal respiratory rate/effort. Breath sounds bilateral equal and clear anteriorly Heart: Normal rate. s1s2 normal. No rub or gallop. Extremities: no edema. No varicose veins. Rt BKA. left AKA with wound dressed Neurological: Patient is communicative and awake alert today Skin: Warm and dry. Normal turgor. No rash. Palpitation: Normal elasticity for age Abdomen: Abdomen is soft. Bowel sounds +. There is no abdominal tenderness, no guarding/rigidity or organomegaly Psych: deferred MSK: no joint tenderness or swelling. Digits and nails normal, no deformity : kidney or bladder not palpable Access: Rt permacath Labs/imaging reviewed. Past medical history, past surgical history, family history, social history, allergy reviewed and noted as below Family Hx: no hx of CKD. Non contributory Objective - Vital Signs/Intake and Output Vital Signs (last 24 hours): Temp Pulse Resp BP Pulse Ox 98.2 F 70 21 109/71 95 02/03/18 08:57 02/03/18 08:57 02/03/18 08:57 02/03/18 08:57 02/03/18 08:57 Intake and Output: 02/03/18 02/03/18 06:59 18:59 Intake Total 200 Balance 200 - Medications Medications: Current Medications Acetaminophen (Tylenol 325mg Tab) 650 mg PO Q6 PRN PRN Reason: Fever >100.4 F Last Admin: 01/28/18 10:21 Dose: 650 mg Albumin Human (Albumin Human 25% (12.5 Gm/50 Ml)) 25 gm IV MWF [facility] Last Admin: 01/31/18 19:55 Dose: 25 gm Alprazolam (Xanax) 0.25 mg PO HS PRN PRN Reason: Anxiety Stop: 02/03/18 19:30 Last Admin: 02/02/18 00:12 Dose: 0.25 mg Dextrose (Dextrose 50% Inj) 0 ml IV STAT PRN; Protocol PRN Reason: Hypoglycemia Protocol Dextrose (Glutose 15) 0 gm PO ONCE PRN; Protocol PRN Reason: Hypoglycemia Protocol Emtricitabine/Tenofovir (Truvada 200 Mg-300 Mg) 1 tab PO Q48H [facility] PRN Reason: Protocol Last Admin: 02/03/18 09:07 Dose: 1 tab Epoetin Alonso (Procrit) 10,000 unit IV MWF [facility] Last Admin: 01/31/18 18:00 Dose: 10,000 unit Famotidine (Pepcid) 20 mg PO DAILY [facility] Last Admin: 02/03/18 09:00 Dose: 20 mg Glucagon (Glucagen Diagnostic Kit) 0 mg IM STAT PRN; Protocol PRN Reason: Hypoglycemia Protocol Heparin Sodium (Porcine) (Heparin) 5,000 units SC Q8 [facility] Last Admin: 02/03/18 05:04 Dose: 5,000 units Meropenem 500 mg/ Sodium (Chloride) 100 mls @ 100 mls/hr IVPB Q12H [facility] PRN Reason: Protocol Last Admin: 02/03/18 11:39 Dose: Not Given Insulin Human Regular (Novolin R) 0 unit SC ACHS [facility] PRN Reason: Protocol Last Admin: 02/03/18 11:38 Dose: Not Given Lactobacillus Acidophilus (Bacid Acidophilus) 1 cap PO BID [facility] Last Admin: 02/03/18 09:00 Dose: 1 cap Midodrine (Proamatine) 5 mg PO TID [facility] Last Admin: 02/03/18 09:01 Dose: 5 mg Prednisone (Prednisone Tab) 20 mg PO DAILY [facility] Last Admin: 02/03/18 09:00 Dose: 20 mg Sevelamer Carbonate (Renvela) 0.8 gm NG TIDCC [facility] Last Admin: 02/03/18 11:39 Dose: Not Given Tramadol HCl (Ultram) 50 mg PO TID PRN PRN Reason: Pain, moderate (4-7) Last Admin: 02/02/18 04:02 Dose: 50 mg Vitamin B Complex/Vit C/Folic Acid (Nephro-Carlos) 1 tab PO DAILY [facility] Last Admin: 02/03/18 09:00 Dose: 1 tab - Labs Labs: 01/30/18 20:54 02/02/18 14:10 PT 11.1 SECONDS (9.7-12.2) 01/22/18 12:20 INR 1.0 01/22/18 12:20 APTT 27 SECONDS (21-34) 01/22/18 12:20
[2018-02-03] MEDS ORDERED: Vancomycin 1 gm/NS 200 ml 1 GM/200 ML BAG IVPB SCH ×4 (13:32→15:00)
--- NOTE | 2018-02-03 14:53 | CP.PCM.PN ---
Subjective - Date & Time of Evaluation Date of Evaluation: 02/03/18 Time of Evaluation: 02:45 - Subjective Subjective: dictated Objective - Vital Signs/Intake and Output Vital Signs (last 24 hours): Temp Pulse Resp BP Pulse Ox 98.2 F 70 21 109/71 95 02/03/18 08:57 02/03/18 08:57 02/03/18 08:57 02/03/18 08:57 02/03/18 08:57 Intake and Output: 02/03/18 02/03/18 06:59 18:59 Intake Total 200 Balance 200 - Medications Medications: Current Medications Acetaminophen (Tylenol 325mg Tab) 650 mg PO Q6 PRN PRN Reason: Fever >100.4 F Last Admin: 01/28/18 10:21 Dose: 650 mg Albumin Human (Albumin Human 25% (12.5 Gm/50 Ml)) 25 gm IV [facility] Last Admin: 01/31/18 19:55 Dose: 25 gm Alprazolam (Xanax) 0.25 mg PO HS PRN PRN Reason: Anxiety Stop: 02/03/18 19:30 Last Admin: 02/02/18 00:12 Dose: 0.25 mg Dextrose (Dextrose 50% Inj) 0 ml IV STAT PRN; Protocol PRN Reason: Hypoglycemia Protocol Dextrose (Glutose 15) 0 gm PO ONCE PRN; Protocol PRN Reason: Hypoglycemia Protocol Emtricitabine/Tenofovir (Truvada 200 Mg-300 Mg) 1 tab PO Q48H [facility] PRN Reason: Protocol Last Admin: 02/03/18 14:45 Dose: Not Given Epoetin Alonso (Procrit) 10,000 unit IV [facility] Last Admin: 01/31/18 18:00 Dose: 10,000 unit Famotidine (Pepcid) 20 mg PO DAILY [facility] Last Admin: 02/03/18 09:00 Dose: 20 mg Glucagon (Glucagen Diagnostic Kit) 0 mg IM STAT PRN; Protocol PRN Reason: Hypoglycemia Protocol Heparin Sodium (Porcine) (Heparin) 5,000 units SC Q8 [facility] Last Admin: 02/03/18 14:02 Dose: Not Given Vancomycin/Sodium Chloride (Vancomycin 1 Gm/Ns 200 Ml) 1 gm in 200 mls @ 133.333 mls/hr IVPB [facility] Stop: 02/08/18 15:01 Insulin Human Regular (Novolin R) 0 unit SC ACHS [facility] PRN Reason: Protocol Last Admin: 02/03/18 11:38 Dose: Not Given Lactobacillus Acidophilus (Bacid Acidophilus) 1 cap PO BID [facility] Last Admin: 02/03/18 09:00 Dose: 1 cap Midodrine (Proamatine) 5 mg PO TID [facility] Last Admin: 02/03/18 14:03 Dose: Not Given Prednisone (Prednisone Tab) 20 mg PO DAILY [facility] Last Admin: 02/03/18 09:00 Dose: 20 mg Sevelamer Carbonate (Renvela) 0.8 gm NG TIDCC [facility] Last Admin: 02/03/18 11:39 Dose: Not Given Tramadol HCl (Ultram) 50 mg PO TID PRN PRN Reason: Pain, moderate (4-7) Last Admin: 02/02/18 04:02 Dose: 50 mg Vitamin B Complex/Vit C/Folic Acid (Nephro-Carlos) 1 tab PO DAILY [facility] Last Admin: 02/03/18 09:00 Dose: 1 tab - Labs Labs: 01/30/18 20:54 02/02/18 14:10 PT 11.1 SECONDS (9.7-12.2) 01/22/18 12:20 INR 1.0 01/22/18 12:20 APTT 27 SECONDS (21-34) 01/22/18 12:20
[2018-02-03] MEDS: Albumin Human 25% (12.5 gm/50 ml) IV SCH (15:20)
[2018-02-03] MEDS: Epoetin Alfa 10,000 unit/ml Dialysis IV SCH (15:23)
--- NOTE | 2018-02-03 15:29 | CP.PCM.PN ---
<Yee Person - Last Filed: 02/03/18 16:39> Subjective - Date & Time of Evaluation Date of Evaluation: 02/03/18 Time of Evaluation: 14:00 - Subjective Subjective: PGY2- Progress Note for Dr. Collins Patient seen and examined while getting dialysis. Patient did not want to be bothered. Patient told me to "go away." Patient would not let me examine her. Objective - Vital Signs/Intake and Output Vital Signs (last 24 hours): Temp Pulse Resp BP Pulse Ox 98.2 F 70 21 109/71 95 02/03/18 08:57 02/03/18 08:57 02/03/18 08:57 02/03/18 08:57 02/03/18 08:57 Intake and Output: 02/03/18 02/03/18 06:59 18:59 Intake Total 200 Balance 200 - Medications Medications: Current Medications Acetaminophen (Tylenol 325mg Tab) 650 mg PO Q6 PRN PRN Reason: Fever >100.4 F Last Admin: 01/28/18 10:21 Dose: 650 mg Albumin Human (Albumin Human 25% (12.5 Gm/50 Ml)) 25 gm IV MWF [facility] Last Admin: 02/03/18 15:20 Dose: 25 gm Alprazolam (Xanax) 0.25 mg PO HS PRN PRN Reason: Anxiety Stop: 02/03/18 19:30 Last Admin: 02/02/18 00:12 Dose: 0.25 mg Dextrose (Dextrose 50% Inj) 0 ml IV STAT PRN; Protocol PRN Reason: Hypoglycemia Protocol Dextrose (Glutose 15) 0 gm PO ONCE PRN; Protocol PRN Reason: Hypoglycemia Protocol Emtricitabine/Tenofovir (Truvada 200 Mg-300 Mg) 1 tab PO Q48H [facility] PRN Reason: Protocol Last Admin: 02/03/18 14:45 Dose: Not Given Epoetin Alonso (Procrit) 10,000 unit IV MWF [facility] Last Admin: 02/03/18 15:23 Dose: 10,000 unit Famotidine (Pepcid) 20 mg PO DAILY [facility] Last Admin: 02/03/18 09:00 Dose: 20 mg Glucagon (Glucagen Diagnostic Kit) 0 mg IM STAT PRN; Protocol PRN Reason: Hypoglycemia Protocol Heparin Sodium (Porcine) (Heparin) 5,000 units SC Q8 [facility] Last Admin: 02/03/18 14:02 Dose: Not Given Vancomycin/Sodium Chloride (Vancomycin 1 Gm/Ns 200 Ml) 1 gm in 200 mls @ 133.333 mls/hr IVPB MWF [facility] Stop: 02/08/18 15:01 Last Admin: 02/03/18 15:19 Dose: 133.333 mls/hr Insulin Human Regular (Novolin R) 0 unit SC ACHS [facility] PRN Reason: Protocol Last Admin: 02/03/18 11:38 Dose: Not Given Lactobacillus Acidophilus (Bacid Acidophilus) 1 cap PO BID [facility] Last Admin: 02/03/18 09:00 Dose: 1 cap Midodrine (Proamatine) 5 mg PO TID [facility] Last Admin: 02/03/18 14:03 Dose: Not Given Prednisone (Prednisone Tab) 20 mg PO DAILY [facility] Last Admin: 02/03/18 09:00 Dose: 20 mg Sevelamer Carbonate (Renvela) 0.8 gm NG TIDCC [facility] Last Admin: 02/03/18 11:39 Dose: Not Given Tramadol HCl (Ultram) 50 mg PO TID PRN PRN Reason: Pain, moderate (4-7) Last Admin: 02/02/18 04:02 Dose: 50 mg Trimethoprim/Sulfamethoxazole (Bactrim Ds Tab) 1 tab PO [facility] [place] [place] PRN Reason: Protocol Vitamin B Complex/Vit C/Folic Acid (Nephro-Carlos) 1 tab PO DAILY [facility] Last Admin: 02/03/18 09:00 Dose: 1 tab - Labs Labs: 01/30/18 20:54 02/02/18 14:10 PT 11.1 SECONDS (9.7-12.2) 01/22/18 12:20 INR 1.0 01/22/18 12:20 APTT 27 SECONDS (21-34) 01/22/18 12:20 - Additional Findings Additional findings: - Constitutional Appears: Non-toxic, No Acute Distress - Head Exam Head Exam: ATRAUMATIC, NORMAL INSPECTION, NORMOCEPHALIC - ENT Exam ENT Exam: Mucous Membranes Moist - Respiratory Exam Respiratory Exam: NORMAL BREATHING PATTERN - Cardiovascular Exam Cardiovascular Exam: REGULAR RHYTHM, RRR, +S1, +S2 right subclavian permacath covered with c/d/i dressing - GI/Abdominal Exam GI & Abdominal Exam: Soft. 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 EF:40% septum and inferior appears to be moderately hypokinetic * Stress test (01/01/18): LV systolic function is borderline. Ejection Fraction is 50-55%. No stress induced ischemia * off levophed * ECHO: mitral valve thickened, mobile echogenic density on the anterior mitral valve leaflet consistent with probable vegetation * Patient will not be getting MARY ANN 2/2 high risk * patient being treated for endocarditis with Bactrim and Vanco ESRD dialysis MWF monitor BP right subclavian permacath exchanged on 01/31/[address] Collins <Donald Collins - Last Filed: 02/03/18 22:33> Objective - Vital Signs/Intake and Output Vital Signs (last 24 hours): Temp Pulse Resp BP Pulse Ox 98.3 F 93 H 18 94/54 L 97 02/03/18 17:23 02/03/18 17:23 02/03/18 17:23 02/03/18 17:23 02/03/18 17:23 - Labs Labs: 01/30/18 20:54 02/02/18 14:10 PT 11.1 SECONDS (9.7-12.2) 01/22/18 12:20 INR 1.0 01/22/18 12:20 APTT 27 SECONDS (21-34) 01/22/18 12:20 Assessment and Plan - Assessment and Plan (Free Text) Assessment: Patient seen and evaluated personally by me. Plan of care d/w the emergency medical services coordinator and as documented
[2018-02-03 17:06] VITALS: O2SAT 97
[2018-02-03 17:25] VITALS: BP 94/54; PULSE 93; RESP 18; TEMP 98.3
--- NOTE | 2018-02-03 17:46 | CP.PCM.PN ---
Subjective - Date & Time of Evaluation Date of Evaluation: 02/03/18 Time of Evaluation: 17:46 - Subjective Subjective: Alert, oriented, denies acute pain, NAD. Objective - Vital Signs/Intake and Output Vital Signs (last 24 hours): Temp Pulse Resp BP Pulse Ox 98.3 F 93 H 18 94/54 L 97 02/03/18 17:23 02/03/18 17:23 02/03/18 17:23 02/03/18 17:23 02/03/18 17:23 Intake and Output: 02/03/18 02/03/18 06:59 18:59 Intake Total 200 Balance 200 - Medications Medications: Current Medications Acetaminophen (Tylenol 325mg Tab) 650 mg PO Q6 PRN PRN Reason: Fever >100.4 F Last Admin: 01/28/18 10:21 Dose: 650 mg Albumin Human (Albumin Human 25% (12.5 Gm/50 Ml)) 25 gm IV [facility] [place] Last Admin: 02/03/18 15:20 Dose: 25 gm Alprazolam (Xanax) 0.25 mg PO HS PRN PRN Reason: Anxiety Stop: 02/03/18 19:30 Last Admin: 02/02/18 00:12 Dose: 0.25 mg Dextrose (Dextrose 50% Inj) 0 ml IV STAT PRN; Protocol PRN Reason: Hypoglycemia Protocol Dextrose (Glutose 15) 0 gm PO ONCE PRN; Protocol PRN Reason: Hypoglycemia Protocol Emtricitabine/Tenofovir (Truvada 200 Mg-300 Mg) 1 tab PO Q48H [facility] PRN Reason: Protocol Last Admin: 02/03/18 14:45 Dose: Not Given Epoetin Alonso (Procrit) 10,000 unit IV [facility] [place] Last Admin: 02/03/18 15:23 Dose: 10,000 unit Famotidine (Pepcid) 20 mg PO DAILY [facility] Last Admin: 02/03/18 09:00 Dose: 20 mg Glucagon (Glucagen Diagnostic Kit) 0 mg IM STAT PRN; Protocol PRN Reason: Hypoglycemia Protocol Heparin Sodium (Porcine) (Heparin) 5,000 units SC Q8 [facility] Last Admin: 02/03/18 14:02 Dose: Not Given Vancomycin/Sodium Chloride (Vancomycin 1 Gm/Ns 200 Ml) 1 gm in 200 mls @ 133.333 mls/hr IVPB [facility] [place] Stop: 02/08/18 15:01 Last Admin: 02/03/18 15:19 Dose: 133.333 mls/hr Insulin Human Regular (Novolin R) 0 unit SC ACHS [facility] PRN Reason: Protocol Last Admin: 02/03/18 11:38 Dose: Not Given Lactobacillus Acidophilus (Bacid Acidophilus) 1 cap PO BID [facility] Last Admin: 02/03/18 09:00 Dose: 1 cap Midodrine (Proamatine) 5 mg PO TID [facility] Last Admin: 02/03/18 14:03 Dose: Not Given Prednisone (Prednisone Tab) 20 mg PO DAILY [facility] Last Admin: 02/03/18 09:00 Dose: 20 mg Sevelamer Carbonate (Renvela) 0.8 gm NG TIDCC [facility] Last Admin: 02/03/18 11:39 Dose: Not Given Tramadol HCl (Ultram) 50 mg PO TID PRN PRN Reason: Pain, moderate (4-7) Last Admin: 02/02/18 04:02 Dose: 50 mg Trimethoprim/Sulfamethoxazole (Bactrim Ds Tab) 1 tab PO MWF [facility] PRN Reason: Protocol Vitamin B Complex/Vit C/Folic Acid (Nephro-Carlos) 1 tab PO DAILY [facility] Last Admin: 02/03/18 09:00 Dose: 1 tab - Labs Labs: 01/30/18 20:54 02/02/18 14:10 PT 11.1 SECONDS (9.7-12.2) 01/22/18 12:20 INR 1.0 01/22/18 12:20 APTT 27 SECONDS (21-34) 01/22/18 12:20 Assessment and Plan - Assessment and Plan (Free Text) Assessment: Patient admitted with infected stump, ESRD on HD, seen and examined. Alert, awake, NAD. Discussed with DR Villegas and DR Bonilla , plan to discharge to [facility] rehab on vanco after HD X 3 weeks and po bactrim. The son made aware of the discharge plan.
--- NOTE | 2018-02-03 20:32 | PN ---
DATE: 02/03/2018 INFECTIOUS DISEASE FOLLOWUP NOTE SUBJECTIVE: The patient is getting dialysis at this time, and they are planning to discharge her. She still complains of leg pains, probably has chronic pain because she is diabetic with neuropathy. PHYSICAL EXAMINATION: VITAL SIGNS: T-max is 98.2; pulse 70; blood pressure 109/71; respirations are 20. HEENT: Head is atraumatic, normocephalic. Left eye blindness. NECK: Supple. LUNGS: Clear. No crackles or rales present. HEART: S1 and S2 are regular. ABDOMEN: Soft and nontender. No guarding, no rigidity present. EXTREMITIES: Right BKA is present. Left BKA with wound dressing unable to see because she has expensive dressing at this time. ASSESSMENT AND PLAN: She has a new dialysis catheter placed as she did have coagulase negative in two sets. She also had an echo done, which is suspicious for mitral vegetation; however, she refused for MARY ANN, so I am going to continue vancomycin for three more weeks and also her CD4 count was 67, probably due to sepsis may increase in the future, but at this time, I would at least put her on PCP treatment with bacterium every other day after dialysis, and hopefully, she tolerated that well, and the patient did come in with septic shock with a left leg infection with Pseudomonas and Enterobacter but that part of the leg is gone now, and the blood cultures were coagulase negative Staph, and probably is the same source for the endocarditis. She is to continue antibiotics for three more weeks. She did get antibiotics here from 01/22/2018 so and it is almost two weeks she got it here, and we will . Vancomycin IV to be given and on dialyses for next three weeks. We will follow up the echo report and to continue the HIV medications. Tammy Villegas MD
--- NOTE | 2018-02-04 20:06 | CP.PCM.DIS ---
Provider - Provider Date of Admission: 01/22/18 13:45 Attending physician: Glenny Bonilla MD Time Spent in preparation of Discharge (in minutes): 45 Hospital Course - Lab Results Lab Results: Micro Results 01/30/18 05:12 [facility] MRSA Culture (Admit) - Final MRSA NOT DETECTED 01/26/18 11:37 Blood Blood Culture - Final NO GROWTH AFTER 5 DAYS 01/26/18 11:37 Blood Gram Stain - Final TEST NOT PERFORMED 01/22/18 11:45 Blood-Venous S.aureus & Coag-Neg Staph PNA FISH - Final 01/22/18 11:45 Blood-Venous Blood Culture - Final Coagulase Neg Staphylococcus 01/22/18 11:45 Blood-Venous Gram Stain - Final 01/22/18 12:15 Blood-Venous Blood Culture - Final Staphylococcus Sp Coag Neg 01/22/18 12:15 Blood-Venous Gram Stain - Final 01/23/18 11:00 Thigh - Left Gram Stain - Final 01/23/18 11:00 Thigh - Left Wound Culture - Final Enterobacter Cloacae Ssp Cloac 01/22/18 Unknown Leg - Left Gram Stain - Final 01/22/18 Unknown Leg - Left Wound Culture - Final Pseudomonas Aeruginosa 01/22/18 14:57 [facility] MRSA Culture (Admit) - Final MRSA NOT DETECTED Most Recent Lab Values WBC 9.1 K/uL (4.8-10.8) 01/30/18 20:54 RBC 3.17 Mil/uL (3.80-5.20) L 01/30/18 20:54 Hgb 9.7 g/dL (11.0-16.0) L 01/30/18 20:54 Hct 29.8 % (34.0-47.0) L 01/30/18 20:54 MCV 94.1 fL (81.0-99.0) D 01/30/18 20:54 MCH 30.5 pg (27.0-31.0) 01/30/18 20:54 MCHC 32.4 g/dL (33.0-37.0) L 01/30/18 20:54 RDW 17.7 % (11.5-14.5) H 01/30/18 20:54 Plt Count 293 K/uL (130-400) 01/30/18 20:54 MPV 8.2 fL (7.2-11.7) 01/30/18 20:54 Neut % (Auto) 79.3 % (50.0-75.0) H 01/30/18 20:54 Lymph % (Auto) 13.9 % (20.0-40.0) L 01/30/18 20:54 [place] % (Auto) 5.4 % (0.0-10.0) 01/30/18 20:54 Eos % (Auto) 0.7 % (0.0-4.0) 01/30/18 20:54 Baso % (Auto) 0.7 % (0.0-2.0) 01/30/18 20:54 Neut # (Auto) 7.2 K/uL (1.8-7.0) H 01/30/18 20:54 Lymph # (Auto) 1.3 K/uL (1.0-4.3) 01/30/18 20:54 [place] # (Auto) 0.5 K/uL (0.0-0.8) 01/30/18 20:54 Eos # (Auto) 0.1 K/uL (0.0-0.7) 01/30/18 20:54 Baso # (Auto) 0.1 K/uL (0.0-0.2) 01/30/18 20:54 Neutrophils % (Manual) 80 % (50-75) H 01/29/18 05:59 Band Neutrophils % 4 % (0-2) H 01/29/18 05:59 Lymphocytes % (Manual) 8 % (20-40) L 01/29/18 05:59 Monocytes % (Manual) 3 % (0-10) 01/29/18 05:59 Eosinophils % (Manual) 1 % (0-4) 01/25/18 06:32 Metamyelocytes % 1 % (0-0) H 01/29/18 05:59 Myelocytes % 4 % (0-0) H 01/29/18 05:59 Nucleated RBC % 4 % (0-0) H 01/29/18 05:59 Toxic Granulation Present 01/23/18 06:18 Platelet Estimate Normal (NORMAL) 01/29/18 05:59 Large Platelets Present 01/29/18 05:59 Polychromasia Slight 01/27/18 06:13 Hypochromasia (manual) Slight 01/27/18 06:13 Basophilic Stippling Slight 01/26/18 06:51 Anisocytosis (manual) Slight 01/29/18 05:59 Target Cells Slight 01/23/18 13:29 PT 11.1 SECONDS (9.7-12.2) 01/22/18 12:20 INR 1.0 01/22/18 12:20 APTT 27 SECONDS (21-34) 01/22/18 12:20 Puncture Site Dcath 01/22/18 15:50 pCO2 49 mm/Hg (35-45) H 01/22/18 15:50 pO2 36 mm/Hg (30-55) 01/25/18 05:33 HCO3 29.6 mmol/L (21-28) H 01/22/18 15:50 ABG pH 7.43 (7.35-7.45) 01/22/18 15:50 ABG Total CO2 34.0 mmol/L (22-28) H 01/22/18 15:50 ABG O2 Saturation 80.9 % (95-98) L 01/22/18 15:50 ABG Base Excess 6.9 mmol/L (-2.0-3.0) H 01/22/18 15:50 [place] Test Na 01/22/18 15:50 ABG Potassium 3.1 mmol/L (3.6-5.2) L 01/22/18 15:50 VBG pH 7.37 (7.32-7.43) 01/25/18 05:33 VBG pCO2 48 mmHg (40-60) 01/25/18 05:33 VBG HCO3 25.4 mmol/L 01/25/18 05:33 VBG Total CO2 29.2 mmol/L (22-28) H 01/25/18 05:33 VBG O2 Sat (Calc) 74.0 % (40-65) H 01/25/18 05:33 VBG Base Excess 1.7 mmol/L (0.0-2.0) 01/25/18 05:33 VBG Potassium 4.2 mmol/L (3.6-5.2) 01/25/18 05:33 A-a O2 Difference 130.0 mm/Hg 01/22/18 15:50 Respiratory Index 3.5 01/22/18 15:50 Sodium 132.0 mmol/l (132-148) 01/25/18 05:33 Chloride 98.0 mmol/L (98-107) 01/25/18 05:33 Glucose 438 mg/dl (65-105) H* 01/25/18 05:33 Lactate 1.1 mmol/L (0.7-2.1) 01/25/18 05:33 Liter Flow 3.0 01/25/18 05:33 FiO2 32.0 % 01/22/18 15:50 Crit Value Called To Trang agricultural technical officer 01/25/18 05:33 Crit Value Called By Justyna torres rt 01/25/18 05:33 Crit Value Read Back Y 01/25/18 05:33 Blood Gas Notified Time 555 01/25/18 05:33 Sodium 136 mmol/L (132-148) 02/02/18 14:10 Potassium 4.4 mmol/L (3.6-5.2) 02/02/18 14:10 Chloride 99 mmol/L (98-107) 02/02/18 14:10 Carbon Dioxide 28 mmol/L (22-30) 02/02/18 14:10 Anion Gap 13 (10-20) 02/02/18 14:10 BUN 40 mg/dL (7-17) H 02/02/18 14:10 Creatinine 4.0 mg/dL (0.7-1.2) H 02/02/18 14:10 Est GFR ( Amer) 14 02/02/18 14:10 Est GFR (Non-Af Amer) 12 02/02/18 14:10 POC Glucose (mg/dL) 191 mg/dL (65-110) H 02/03/18 16:22 Random Glucose 177 mg/dL (65-105) H 02/02/18 14:10 Lactic Acid 1.3 mmol/L (0.7-2.1) 01/23/18 13:29 Calcium 7.8 mg/dl (8.6-10.4) L 02/02/18 14:10 Phosphorus 3.9 mg/dL (2.5-4.5) 01/29/18 06:00 Magnesium 2.6 mg/dL (1.6-2.3) H 01/29/18 06:00 Total Bilirubin 0.6 mg/dL (0.2-1.3) 01/29/18 06:00 AST 67 U/L (14-36) H D 01/29/18 06:00 ALT 39 U/L (9-52) 01/29/18 06:00 Alkaline Phosphatase 150 U/L (38-126) H D 01/29/18 06:00 Total Creatine Kinase 158 U/L (30-135) H 01/22/18 13:02 Troponin I 0.0600 ng/mL (0.00-0.120) 01/23/18 13:29 Total Protein 6.2 g/dL (6.3-8.3) L 01/29/18 06:00 Albumin 2.8 g/dL (3.5-5.0) L 01/29/18 06:00 Globulin 3.4 gm/dL (2.2-3.9) 01/29/18 06:00 Albumin/Globulin Ratio 0.8 (1.0-2.1) L 01/29/18 06:00 25-OH Vitamin D Total 37.2 NG/ML (30.0-100.0) 01/28/18 06:15 PTH Intact Whole Molec 23 pg/mL (14-64) 01/28/18 06:15 Arterial Blood Potassium 3.1 mmol/L (3.6-5.2) L 01/22/18 15:50 Venous Blood Potassium 4.2 mmol/L (3.6-5.2) 01/25/18 05:33 Stool Occult Blood Negative (NEGATIVE) 01/26/18 20:13 Vancomycin Trough 16.3 ug/mL (5.0-10.0) H 01/24/18 06:14 Random Vancomycin 22.0 ug/mL 01/23/18 06:19 Absolute Lymphs (Flow) 593 Cells/mcL (850-3900) L 01/26/18 11:37 % CD3 Cells 48 Percent (57-85) L 01/26/18 11:37 Absolute CD3 Count 284 Cells/mcL (840-3060) L 01/26/18 11:37 % CD4 Cells 11 Percent (30-61) L 01/26/18 11:37 Absolute CD4 Count 67 Cells/mcL (490-1740) L 01/26/18 11:37 T-Help/Suppress Ratio 0.31 Ratio (0.86-5.00) L 01/26/18 11:37 % CD8 Cells 36 Percent (12-42) 01/26/18 11:37 Absolute CD8 Count 216 Cells/mcL (180-1170) 01/26/18 11:37 T-Lymph Analys Comment See note 01/26/18 11:37 C. difficile Ag & Toxin Negative (NEGATIVE) 01/28/18 10:40 Blood Type B POSITIVE 01/22/18 12:51 Antibody Screen Negative 01/22/18 12:51 - Hospital Course Hospital Course: History: 58-year-old female with a history of left below-knee amputation, hypertension, hyperlipidemia, HIV, end-stage renal disease on dialysis, diabetes, peripheral vascular disease. Patient admitted initially to the hospital with altered mental status for several days, with fever and fatigue and weakness. Patient admitted to the hospital because of the worsening left below-knee amputation stump. Patient also having increasing confusion, lethargy, decreased oral intake and appetite. Patient was also noted to have hypertension, anemia, unresponsive, admitted to the intensive care unit with septic shock. Patient was placed on antibiotic. She was also placed on norepinephrine drip. Slowly condition got better. Course in the hospital: Patient underwent left the stump amputation revision was done, and also drainage was done. Cultures were taken. Procedure was done on 01/23/2018. Following that the patient was placed on antibiotic. Patient had a multiple microbiological organisms, including coagulase-negative staph aureus in the blood culture, and also Pseudomonas and Enterobacter in the wound culture. Because of the Staphylococcus the patient underwent right subclavian permacath exchange was done. Patient underwent echocardiogram on 01/25/2018 to rule out endocarditis. There is a possibility of mobile echogenic density in the anterior mitral valve , consistent with vegetation. I discussed with infectious disease. I also spoke to the military logistics specialist. Given the high risk and no benefit transesophageal echocardiogram was on hold. Meanwhile will continue the antibiotic intravenously during the hemodialysis vancomycin as recommended by the infectious disease. Patient clinically improved markedly, she is eating well, she is tolerating the medication. Sleep clinically stable. She will be discharged to rehab. Medications reviewed and will be continued in the rehab. She will also be receiving hemodialysis. Discuss with the treatment team. I also left a message on patient's son. Will follow the patient as needed Discharge Exam - Head Exam Head Exam: ATRAUMATIC, NORMAL INSPECTION, NORMOCEPHALIC Discharge Plan - Follow Up Plan Condition: GOOD Disposition: REHAB FACILITY/REHAB UNIT Instructions: Heart Failure, Adult (DC), Cellulitis (Skin Infection), Adult (DC ), Low Blood Pressure (DC), Cellulitis (DC) Referrals: Rajinder Machado MD [Staff Provider] - Glenny Bonilla MD [Staff Provider] - Tammy Villegsa MD [Staff Provider] -
--- NOTE | 2018-02-04 20:08 | CP.PCM.PN ---
Subjective - Date & Time of Evaluation Date of Evaluation: 01/28/18 Time of Evaluation: 20:06 - Subjective Subjective: Patient clinically no new changes noted. On Levophed low-dose. Blood pressures on the low side. Tolerating the dialysis On examination: Vital signs unstable. Chest good air entry regular heart sounds nontender abdomen Assessment and recognition: 58-year-old female with history of end-stage renal disease on dialysis in hypertension high HIV positive diabetes. Peripheral vascular disease. Admitted with sepsis. Currently on antibiotic. Levophed. Continue the current treatment. Slow weaning as tolerated will follow-up the patient Objective - Vital Signs/Intake and Output Vital Signs (last 24 hours): Temp Pulse Resp BP Pulse Ox 98.3 F 93 H 18 94/54 L 97 02/03/18 17:23 02/03/18 17:23 02/03/18 17:23 02/03/18 17:23 02/03/18 17:23 - Labs Labs: 01/30/18 20:54 02/02/18 14:10 PT 11.1 SECONDS (9.7-12.2) 01/22/18 12:20 INR 1.0 01/22/18 12:20 APTT 27 SECONDS (21-34) 01/22/18 12:20
[2018-02-05] MEDS ORDERED: Tmp-Smz 800 mg-160 mg DS Tab PO SCH (09:00)
== END 2018-02-03 18:09 | DRG 474 ==
LOC: C.ER 11:24 → C.9I 13:45 → C.3T 01-29 22:28
PROVIDERS: ADMIT Internal Medicine; ATTEND Internal Medicine
PROC: 0Y6J0Z1 Detachment at Left Lower Leg, High, Open Approach (ICD-10-PCS; principal; 2018-01-23 11:45)
PROC: 5A1D70Z Performance of Urinary Filtration, Intermittent, Less than 6 Hours Per Day (ICD-10-PCS; 2018-01-27)
PROC: 5A1D70Z Performance of Urinary Filtration, Intermittent, Less than 6 Hours Per Day (ICD-10-PCS; 2018-01-29)
PROC: 02PY33Z Removal of Infusion Device from Great Vessel, Percutaneous Approach (ICD-10-PCS; 2018-01-31)
PROC: 02HV33Z Insertion of Infusion Device into Superior Vena Cava, Percutaneous Approach (ICD-10-PCS; 2018-01-31)
PROC: 5A1D70Z Performance of Urinary Filtration, Intermittent, Less than 6 Hours Per Day (ICD-10-PCS; 2018-01-31)
PROC: 5A1D70Z Performance of Urinary Filtration, Intermittent, Less than 6 Hours Per Day (ICD-10-PCS; 2018-02-03)
DX: T87.44 Infection of amputation stump, left lower extremity (principal); B20 Human immunodeficiency virus [HIV] disease; N18.6 End stage renal disease; R65.21 Severe sepsis with septic shock; A41.9 Sepsis, unspecified organism; E11.52 Type 2 diabetes mellitus with diabetic peripheral angiopathy with gangrene; I13.2 Hypertensive heart and chronic kidney disease with heart failure and with stage 5 chronic kidney disease, or end stage renal disease; I50.22 Chronic systolic (congestive) heart failure; N25.81 Secondary hyperparathyroidism of renal origin; I38 Endocarditis, valve unspecified; D63.8 Anemia in other chronic diseases classified elsewhere; D69.6 Thrombocytopenia, unspecified; E03.9 Hypothyroidism, unspecified; E11.22 Type 2 diabetes mellitus with diabetic chronic kidney disease; E11.40 Type 2 diabetes mellitus with diabetic neuropathy, unspecified; E78.5 Hyperlipidemia, unspecified; E83.52 Hypercalcemia; F03.90 Unspecified dementia, unspecified severity, without behavioral disturbance, psychotic disturbance, mood disturbance, and anxiety; G89.29 Other chronic pain; H40.9 Unspecified glaucoma; H54.62 Unqualified visual loss, left eye, normal vision right eye; Z79.4 Long term (current) use of insulin; Z87.891 Personal history of nicotine dependence; Z89.511 Acquired absence of right leg below knee; Z91.81 History of falling; Z99.2 Dependence on renal dialysis

== ENCOUNTER 2018-03-08 16:58 | Emergency (ER) | payer MEDICARE, OTHER ==
[2018-03-08 16:58] VITALS: BMI 29.9
[2018-03-08] MEDS ORDERED: Morphine 4 MG/ML VIAL ONE (18:00)
[2018-03-08 18:03] LABS: BASO % 0.6 % (0.0-2.0); EOS # 0.1 K/uL (0.0-0.7); EOS % 1.3 % (0.0-4.0); HEMOGLOBIN 12.6 g/dL (11.0-16.0); LYMPH % 20.4 % (20.0-40.0); MEAN CELL VOLUME 96.5 fL (81.0-99.0); MEAN CORPUSCULAR HEMOGLOBIN 30.3 pg (27.0-31.0); MEAN CORPUSCULAR HGB CONC 31.4 g/dL (33.0-37.0); MEAN PLATELET VOLUME 8.1 fL (7.2-11.7); MONO # 0.5 K/uL (0.0-0.8); NEUT # 3.4 K/uL (1.8-7.0); NEUT % 68.7 % (50.0-75.0); NRBC % 0.1 % (0.0-2.0); RBC 4.17 Mil/uL (3.80-5.20); RED CELL DISTRIBUTION WIDTH 21.4 % (11.5-14.5)
[2018-03-08 18:14] LABS: ALB/GLOB RATIO 1.1 (1.0-2.1); ALBUMIN 3.9 g/dL (3.5-5.0); CALCIUM 9.6 mg/dl (8.6-10.4)
--- NOTE | 2018-03-08 19:26 | CT ---
Date of service: 03/08/2018 PROCEDURE: CT Abdomen and Pelvis without intravenous contrast HISTORY: Abdominal pain started this morning. COMPARISON: Comparison is made to the previous study dated 08/28/2016 TECHNIQUE: Axial and reformatted coronal and sagittal CT images of the abdomen and pelvis were obtained without IV or oral contrast administration.. Contrast dose: 0 Radiation dose: Total exam DLP = 1084.85 mGy-cm. This CT exam was performed using one or more of the following dose reduction techniques: Automated exposure control, adjustment of the mA and/or kV according to patient size, and/or use of iterative reconstruction technique. FINDINGS: LOWER THORAX: UnremarkableThere is a small right pleural effusion. The heart is enlarged. . LIVER: Unremarkable. No gross lesion or ductal dilatation. GALLBLADDER AND BILE DUCTS: Status post cholecystectomy. PANCREAS: Unremarkable. No gross lesion or ductal dilatation. SPLEEN: Unremarkable. ADRENALS: Unremarkable. No mass. KIDNEYS AND URETERS: The kidneys are small in size. No evidence of hydronephrosis. Vascular calcification are noted. VASCULATURE: Diffuse vascular calcification is noted. . No aortic aneurysm. Multiple collateral vessels noted in the anterior abdominal and pelvic wall. BOWEL: Unremarkable. No obstruction. No gross mural thickening. APPENDIX: Unremarkable. Normal appendix. PERITONEUM: Unremarkable. No free fluid. No free air. LYMPH NODES: Unremarkable. No enlarged lymph nodes. BLADDER: Unremarkable. REPRODUCTIVE: No evidence of acute pathology BONES: There are lytic bony lesions again seen in the lumbar spine. Interval appearance of lytic bony lesion at L3 vertebral body since the previous exam. OTHER FINDINGS: Mild soft tissue edema noted. IMPRESSION: No CT evidence of acute pathology in the abdomen and pelvis.
--- NOTE | 2018-03-08 19:50 | C.PDOC ---
Time Seen by Provider: 03/08/18 17:11 Chief Complaint (Nursing): Abdominal Pain History Per: Patient Onset/Duration Of Symptoms: Hrs (since this morning) Current Symptoms Are (Timing): Still Present Severity: Moderate Radiation Of Pain To:: None Quality Of Discomfort: "Pain" Associated Symptoms: Nausea, Vomiting, Diarrhea Last Bowel Movement: Today Additional History Per: Prior Records Abnormal Vaginal Bleeding: No Past Medical History Reviewed: Historical Data, Nursing Documentation, Vital Signs Vital Signs: Last Vital Signs Temp 99.2 F 03/08/18 17:14 Pulse 90 03/08/18 17:14 Resp 20 03/08/18 17:14 BP 147/78 03/08/18 17:14 Pulse Ox 98 03/08/18 19:55 - Medical History PMH: Anxiety, CHF, Dementia, Diabetes, HIV, HTN, Hyperthyroidism, Hypothyroidism , End Stage Renal Disease, Chronic Kidney Disease Surgical History: Cholecystectomy - [facility] Procedures (01/22/18) CENTRAL VENOUS CATHETER PLACEMENT WITH GUIDANCE (09/12/13) DETACHMENT AT LEFT LOWER LEG, HIGH, OPEN APPROACH (01/22/18) DETACHMENT AT LEFT UPPER LEG, HIGH, OPEN APPROACH (12/30/17) DILATION OF L FEM ART WITH DRUG-ELUT INTRA, PERC APPROACH (11/28/17) DILATION OF L FEM ART WITH INTRALUM DEV, PERC APPROACH (05/28/17) DILATION OF LEFT ANTERIOR TIBIAL ARTERY, PERC APPROACH (11/28/17) EXCISION OF LEFT FOOT SKIN, EXTERNAL APPROACH (05/28/17) EXTIRPATION OF MATTER FROM L FEM ART, PERC APPROACH (11/28/17) EXTIRPATION OF MATTER FROM L POPL ART, PERC APPROACH (11/28/17) FLUOROSCOPY OF AORTA, BI LE ART USING OTH CONTRAST (05/28/17) FLUOROSCOPY OF RIGHT HEART USING LOW OSMOLAR CONTRAST (05/25/16) HEMODIALYSIS (08/26/14) IMMOBILIZATION OF RIGHT LOWER EXTREMITY USING CAST (05/25/16) IMMOBILIZATION OF RIGHT UPPER LEG USING SPLINT (05/25/16) INSERTION OF INFUSION DEV INTO INF VENA CAVA, PERC APPROACH (04/02/16) INSERTION OF INFUSION DEV INTO R INNOM VEIN, PERC APPROACH (05/28/17) INSERTION OF INFUSION DEV INTO SUP VENA CAVA, PERC APPROACH (01/22/18) INSERTION OF INFUSION DEVICE INTO R ATRIUM, PERC APPROACH (06/19/17) PERFORMANCE OF URINARY FILTRATION, MULTIPLE (05/25/16) PERFORMANCE OF URINARY FILTRATION, SINGLE (02/03/17) REMOVAL OF INFUSION DEVICE FROM GREAT VESSEL, PERC APPROACH (01/22/18) REMOVAL OF INFUSION DEVICE FROM LOWER VEIN, PERC APPROACH (04/02/16) REMOVAL OF INFUSION DEVICE FROM UPPER VEIN, PERC APPROACH (12/05/17) REPOSITION RIGHT LOWER FEMUR, EXTERNAL APPROACH (05/25/16) TRANSFUSE NONAUT RED BLOOD CELLS IN PERIPH VEIN, PERC (05/25/16) ULTRASONOGRAPHY OF RIGHT SUBCLAVIAN VEIN, GUIDANCE (06/19/17) Family History: States: Unknown Family Hx - Social History Hx Tobacco Use: Yes (former smoker) Hx Alcohol Use: No Hx Substance Use: No - Immunization History Hx Tetanus Toxoid Vaccination: Yes Hx Influenza Vaccination: Yes Hx Pneumococcal Vaccination: No Review Of Systems Except As Marked, All Systems Reviewed And Found Negative. Constitutional: Negative for: Fever Eyes: Positive for: Other (Left eye infection (pt states she has eye drops for it)) Cardiovascular: Negative for: Chest Pain Respiratory: Negative for: Shortness of Breath Gastrointestinal: Positive for: Nausea, Vomiting, Abdominal Pain, Diarrhea. Negative for: Melena, Hematochezia, Hematemesis Musculoskeletal: Negative for: Neck Pain, Back Pain Physical Exam - Physical Exam Appears: Non-toxic, No Acute Distress, Chronically Ill Skin: Normal Color, Warm, Dry Head: Atraumatic Eye(s): right: PERRL, left: Other (Opacified cornea, discharge.) Neck: Normal ROM, Supple Cardiovascular: Rhythm Regular Respiratory: Normal Breath Sounds, No Accessory Muscle Use Gastrointestinal/Abdominal: Soft, Tenderness, No Guarding, No Rebound Back: No CVA Tenderness Extremity: Other (BKAs) Neurological/Psych: Oriented x3 ED Course And Treatment - Laboratory Results Result Diagrams: 03/08/18 17:59 03/08/18 17:59 Lab Interpretation: No Acute Changes O2 Sat by Pulse Oximetry: 98 Pulse Ox Interpretation: Normal - CT Scan/US CT abd/pelv Other Rad Studies (CT/US): Read By Radiologist, Radiology Report Reviewed CT/US Interpretation: IMPRESSION: No CT evidence of acute pathology in the abdomen and pelvis. Progress Note: Pt feels much better and wants to go home. Abdominal pain resolved. Reassessment Condition: Improved Progress - Interventions Interventions:: Observation - Medications Administered Intravenous: Antiemetic, Opiate, Other (PPI) - Data Reviewed Data Reviewed: Lab, Diagnostic imaging, Old records - Patient Status Patient status: Mostly improved - Continuity of Care Discussed patient case with:: Patient, ED Nurse - Patient Plan Patient Plan: Discharge, F/U with PCP, Continue present meds Disposition Counseled Patient/Family Regarding: Studies Performed, Diagnosis, Need For Followup - Disposition Disposition: HOME/ ROUTINE Disposition Time: 19:54 Condition: IMPROVED Additional Instructions: Follow up with your doctor within 2 days. Return to the ER if you develop fever , worsening of symptoms or if you have any other concerns. Instructions: Acute Abdomen (Belly Pain), Adult (DC) Forms: [employer] ([place]oz[place]ican) - Clinical Impression Clinical Impression: Abdominal pain
[2018-03-08 23:48] VITALS: BP 134/78; PULSE 78; RESP 18; TEMP 98.4; O2SAT 97
== END 2018-03-08 23:45 | disposition home or self-care (01) ==
LOC: C.ER 16:58
DX: R10.9 Unspecified abdominal pain (principal); I12.0 Hypertensive chronic kidney disease with stage 5 chronic kidney disease or end stage renal disease; N18.6 End stage renal disease; Z87.891 Personal history of nicotine dependence
CPT/HCPCS: 74176; 80053; 83690; 85025; 96374; 96375; 99285; C9113; J2270; J2405

== ENCOUNTER 2018-04-24 00:24 | Emergency (ER) | payer MEDICARE, OTHER ==
[2018-04-24 00:24] VITALS: BMI 29.9
--- NOTE | 2018-04-24 00:57 | C.PDOC ---
History Of Present Illness 58 year old female with PMHx of HIV with unknown CD4 count and dialysis, presents to the ED BIBA complaining of abdominal pain. She reports she has been constipated for the last few days. She denies any other medical complaints. Time Seen by Provider: 04/24/18 00:41 Chief Complaint (Nursing): GI Problem Past Medical History Reviewed: Historical Data, Nursing Documentation, Vital Signs Vital Signs: Last Vital Signs Temp 98.1 F 04/24/18 00:28 Pulse 96 H 04/24/18 00:28 Resp 20 04/24/18 00:28 BP 102/40 L 04/24/18 00:28 Pulse Ox 97 04/24/18 00:28 - Medical History PMH: Anxiety, CHF, Dementia, Diabetes, HIV, HTN, Hyperthyroidism, Hypothyroidism, End Stage Renal Disease, Chronic Kidney Disease Denies: Kidney Stones Surgical History: Cholecystectomy - [facility] Procedures (01/22/18) CENTRAL VENOUS CATHETER PLACEMENT WITH GUIDANCE (09/12/13) DETACHMENT AT LEFT LOWER LEG, HIGH, OPEN APPROACH (01/22/18) DETACHMENT AT LEFT UPPER LEG, HIGH, OPEN APPROACH (12/30/17) DILATION OF L FEM ART WITH DRUG-ELUT INTRA, PERC APPROACH (11/28/17) DILATION OF L FEM ART WITH INTRALUM DEV, PERC APPROACH (05/28/17) DILATION OF LEFT ANTERIOR TIBIAL ARTERY, PERC APPROACH (11/28/17) EXCISION OF LEFT FOOT SKIN, EXTERNAL APPROACH (05/28/17) EXTIRPATION OF MATTER FROM L FEM ART, PERC APPROACH (11/28/17) EXTIRPATION OF MATTER FROM L POPL ART, PERC APPROACH (11/28/17) FLUOROSCOPY OF AORTA, BI LE ART USING OTH CONTRAST (05/28/17) FLUOROSCOPY OF RIGHT HEART USING LOW OSMOLAR CONTRAST (05/25/16) HEMODIALYSIS (08/26/14) IMMOBILIZATION OF RIGHT LOWER EXTREMITY USING CAST (05/25/16) IMMOBILIZATION OF RIGHT UPPER LEG USING SPLINT (05/25/16) INSERTION OF INFUSION DEV INTO INF VENA CAVA, PERC APPROACH (04/02/16) INSERTION OF INFUSION DEV INTO R INNOM VEIN, PERC APPROACH (05/28/17) INSERTION OF INFUSION DEV INTO SUP VENA CAVA, PERC APPROACH (01/22/18) INSERTION OF INFUSION DEVICE INTO R ATRIUM, PERC APPROACH (06/19/17) PERFORMANCE OF URINARY FILTRATION, MULTIPLE (05/25/16) PERFORMANCE OF URINARY FILTRATION, SINGLE (02/03/17) REMOVAL OF INFUSION DEVICE FROM GREAT VESSEL, PERC APPROACH (01/22/18) REMOVAL OF INFUSION DEVICE FROM LOWER VEIN, PERC APPROACH (04/02/16) REMOVAL OF INFUSION DEVICE FROM UPPER VEIN, PERC APPROACH (12/05/17) REPOSITION RIGHT LOWER FEMUR, EXTERNAL APPROACH (05/25/16) TRANSFUSE NONAUT RED BLOOD CELLS IN PERIPH VEIN, PERC (05/25/16) ULTRASONOGRAPHY OF RIGHT SUBCLAVIAN VEIN, GUIDANCE (06/19/17) Family History: States: No Known Family Hx - Social History Hx Tobacco Use: Yes (former smoker) Hx Alcohol Use: No Hx Substance Use: No - Immunization History Hx Tetanus Toxoid Vaccination: Yes Hx Influenza Vaccination: Yes Hx Pneumococcal Vaccination: No Review Of Systems Except As Marked, All Systems Reviewed And Found Negative. Constitutional: Negative for: Fever, Chills Gastrointestinal: Positive for: Abdominal Pain, Other (constipation ). Negative for: Nausea, Vomiting Physical Exam - Physical Exam Appears: Toxic Skin: Warm, Dry Head: Normacephalic Eye(s): bilateral: Normal Inspection Nose: Normal Oral Mucosa: Moist Neck: Normal ROM Chest: Symmetrical Cardiovascular: Rhythm Regular Respiratory: Normal Breath Sounds, No Rales, No Rhonchi Gastrointestinal/Abdominal: Tenderness (mild non focal tenderness ) Extremity: Other (Bilateral BKA) Neurological/Psych: Oriented x3 ED Course And Treatment - Laboratory Results Result Diagrams: 04/24/18 01:06 04/24/18 01:06 O2 Sat by Pulse Oximetry: 97 (RA) Pulse Ox Interpretation: Normal - CT Scan/US CT ABD/PEL Other Rad Studies (CT/US): Read By Radiologist, Radiology Report Reviewed CT/US Interpretation: Name:LUANA GREENE Exam Date:Apr 24, 2018 1:43:01 AM EDT. Modality Type:CT\SR. Description:CT - ABDOMEN AND PELVIS. Gender:F Laterality:Not applicable. :64 Referring Physician:Anival Carver (DO). EXAM: CT Abdomen and Pelvis Without IV contrast. CLINICAL HISTORY: Abd pain and constipation pt. unable to raise her arm. TECHNIQUE: Axial computed tomography images of the abdomen and pelvis without intravenous contrast. CONTRAST: No IV contrast. COMPARISON: None provided. FINDINGS: LUNG BASES: The lung bases appear clear. No pleural effusions are seen. LIVER: Unremarkable. GALLBLADDER AND BILE DUCTS: S/p cholecystectomy. Surgical clips are noted in the gallbladder fossa. PANCREAS: Unremarkable. SPLEEN: Unremarkable. ADRENAL GLANDS: Unremarkable. KIDNEYS, URETERS, AND BLADDER: The kidneys appear within normal limits. There is no hydronephrosis or hydroureter. No urinary calculi are seen. STOMACH AND BOWEL: Large amount of fecal material is seen throughout the colon and especially rectosigmoid compatible with fecal impaction. APPENDIX: No evidence of acute appendicitis on CT examination. PERITONEUM: No free fluid. No free air. LYMPH NODES: No lymphadenopathy is evident. REPRODUCTIVE: Status post complete hysterectomy. VASCULATURE: No evidence of abdominal aortic aneurysm. BONES: No aggressive appearing osseous lesion. No acute osseous pathology evident. IMPRESSION: Fecal impaction. . Electronically signed on Apr 24, 2018 2:07:22 AM EDT by: Donald Roca M.D., AGUS Certified By ABR & CBCCT. Fellowship Trained MRI and CT Specialist Medical Decision Making Medical Decision Making: suspect constipation - Orders: - Labwork - Bloodwork 0210 Patient was reassessed. CT shows fecal impaction. given enema large bm in er. pain resolved. asking for dc. Disposition - Disposition Disposition: HOME/ ROUTINE Disposition Time: 04:45 Condition: STABLE Additional Instructions: return to er with worsening symptoms or concerns. Prescriptions: Polyethylene Glycol 3350 [Miralax] 17 gm PO DAILY PRN #1 ml PRN Reason: Constipation Instructions: Fecal Impaction, Acute Abdomen (Belly Pain) Forms: [employer] ([place]wana) - Clinical Impression Clinical Impression: Abdominal pain, Constipation - Scribe Statement The provider has reviewed the documentation as recorded by the Scribe Suzanne Gill All medical record entries made by the Scribe were at my direction and personally dictated by me. I have reviewed the chart and agree that the record accurately reflects my personal performance of the history, physical exam, medical decision making, and the department course for this patient. I have also personally directed, reviewed, and agree with the discharge instructions and disposition.
[2018-04-24 01:15] LABS: BASO % 0.7 % (0.0-2.0); EOS # 0.1 K/uL (0.0-0.7); EOS % 1.8 % (0.0-4.0); HEMOGLOBIN 12.1 g/dL (11.0-16.0); LYMPH # 1.2 K/uL (1.0-4.3); LYMPH % 35.4 % (20.0-40.0); MEAN CELL VOLUME 91.2 fL (81.0-99.0); MEAN CORPUSCULAR HGB CONC 32.9 g/dL (33.0-37.0); MEAN PLATELET VOLUME 8.3 fL (7.2-11.7); MONO # 0.2 K/uL (0.0-0.8); MONO % 5.7 % (0.0-10.0); NEUT % 56.4 % (50.0-75.0); NRBC % 0.1 % (0.0-2.0); RBC 4.04 Mil/uL (3.80-5.20); RED CELL DISTRIBUTION WIDTH 21.3 % (11.5-14.5); WHITE BLOOD COUNT 3.5 K/uL (4.8-10.8)
[2018-04-24 01:27] LABS: PROTHROMBIN TIME 10.7 SECONDS (9.7-12.2)
[2018-04-24 01:31] LABS: ALB/GLOB RATIO 1.1 (1.0-2.1); ALBUMIN 4.3 g/dL (3.5-5.0); CALCIUM 9.5 mg/dl (8.6-10.4)
[2018-04-24 04:45] VITALS: BP 123/78; PULSE 70; RESP 14; TEMP 98.6
[2018-04-24 05:42] VITALS: O2SAT 97
--- NOTE | 2018-04-24 09:23 | CT ---
Date of service: 04/24/2018 PROCEDURE: CT Abdomen and Pelvis without intravenous contrast HISTORY: abd pain/constipation COMPARISON: 03/08/2018 TECHNIQUE: Technique. Contrast dose: None Radiation dose: Total exam DLP = 1006 mGy-cm. This CT exam was performed using one or more of the following dose reduction techniques: Automated exposure control, adjustment of the mA and/or kV according to patient size, and/or use of iterative reconstruction technique. FINDINGS: LOWER THORAX: Coronary artery multiple stents present . Cardiomegaly. Currently no effusion noted LIVER: Limited evaluation without IV contrast. GALLBLADDER AND BILE DUCTS: Cholecystectomy status with clips PANCREAS: Unremarkable. SPLEEN: Unremarkable. ADRENALS: Unremarkable. No mass. KIDNEYS AND URETERS: Bilateral atrophic appearing kidneys left renal hypodensity upper pole similar-appearing possible renal cysts. VASCULATURE: Severe and extensive atherosclerotic vascular calcification throughout the abdomen and pelvis. No aortic aneurysm. Anterior lower abdominal subcutaneous collateral vessels present-similar appearing BOWEL: Extensive stool throughout colon No obstruction. No gross mural thickening. APPENDIX: Unremarkable. Normal appendix. PERITONEUM: Unremarkable. No free fluid. No free air. LYMPH NODES: Unremarkable. No enlarged lymph nodes. BLADDER: Unremarkable. REPRODUCTIVE: The uterus is not identified-markedly atrophic appearing and/or previously removed. No change in this is status appreciated BONES: There are sub cortical endplate bordering multiple lytic and/or cystic appearing lesions of the lumbar spine these involve the superior and inferior endplate regions of L3 the superior L2 and the superior L1 vertebral body endplates. No compression fractures present. These findings were noted previously. Correlate clinically-unusually prominent Schmorl's node indentations other a vertebral body cystic lesions benign and malignant are also inconsistent considerations. More superior endplate findings are more likely benign OTHER FINDINGS: None. IMPRESSION: No bowel obstruction appreciated. Fecal impaction compatible with constipation. . Concordant results (preliminary interpretation) provided by [facility]. Other findings as above.
== END 2018-04-24 04:44 | disposition home or self-care (01) ==
LOC: C.ER 00:24
DX: K59.00 Constipation, unspecified (principal); R10.9 Unspecified abdominal pain

== ENCOUNTER 2018-07-14 15:00 | Inpatient (IN) | payer MEDICARE, OTHER ==
[2018-07-14 15:00] VITALS: BMI 29.9
--- NOTE | 2018-07-14 15:27 | C.PDOC ---
History Of Present Illness 58 yo female brought to ED by family for evaluation of weakness, slurred speech developed over the day. As per son, " she did not eat anything today but took all her medication". At present time, pt is awake, appears slight somnolent. Denies any active complaints at present time. FSBS 40 PMHx: uncontrolled DM, HTN, HLD, HIV, PAD, chronic heel ulcers, ESRD on HD [facility] Allergies: None Surgeries: Right BKA amputation, multiple placements for vascular access for dialysis Medications: Isentress 400mg BID, Starlix 60mg daily, metroprolol 25mg BID, procrit 10k IV MWF, isorbide mononitrate 60mg PO daily, Lopinavir/Ritonavir 200-50 PO BID, Toprol 25mg BID, Time Seen by Provider: 07/14/18 15:05 Chief Complaint (Nursing): Chest Pain History Per: Patient, Family Past Medical History Reviewed: Historical Data, Nursing Documentation, Vital Signs Vital Signs: Last Vital Signs Temp 97.6 F 07/14/18 15:04 Pulse 59 L 07/14/18 15:04 Resp 18 07/14/18 15:04 BP 111/61 07/14/18 15:04 Pulse Ox 100 07/14/18 15:04 - Medical History PMH: Anxiety, CHF, Dementia, Diabetes, HIV, HTN, Hyperthyroidism, Hypothy roidism, End Stage Renal Disease, Chronic Kidney Disease Denies: Kidney Stones Surgical History: Cholecystectomy - [facility] Procedures (01/22/18) CENTRAL VENOUS CATHETER PLACEMENT WITH GUIDANCE (09/12/13) DETACHMENT AT LEFT LOWER LEG, HIGH, OPEN APPROACH (01/22/18) DETACHMENT AT LEFT UPPER LEG, HIGH, OPEN APPROACH (12/30/17) DILATION OF L FEM ART WITH DRUG-ELUT INTRA, PERC APPROACH (11/28/17) DILATION OF L FEM ART WITH INTRALUM DEV, PERC APPROACH (05/28/17) DILATION OF LEFT ANTERIOR TIBIAL ARTERY, PERC APPROACH (11/28/17) EXCISION OF LEFT FOOT SKIN, EXTERNAL APPROACH (05/28/17) EXTIRPATION OF MATTER FROM L FEM ART, PERC APPROACH (11/28/17) EXTIRPATION OF MATTER FROM L POPL ART, PERC APPROACH (11/28/17) FLUOROSCOPY OF AORTA, BI LE ART USING OTH CONTRAST (05/28/17) FLUOROSCOPY OF RIGHT HEART USING LOW OSMOLAR CONTRAST (05/25/16) HEMODIALYSIS (08/26/14) IMMOBILIZATION OF RIGHT LOWER EXTREMITY USING CAST (05/25/16) IMMOBILIZATION OF RIGHT UPPER LEG USING SPLINT (05/25/16) INSERTION OF INFUSION DEV INTO INF VENA CAVA, PERC APPROACH (04/02/16) INSERTION OF INFUSION DEV INTO R INNOM VEIN, PERC APPROACH (05/28/17) INSERTION OF INFUSION DEV INTO SUP VENA CAVA, PERC APPROACH (01/22/18) INSERTION OF INFUSION DEVICE INTO R ATRIUM, PERC APPROACH (06/19/17) PERFORMANCE OF URINARY FILTRATION, MULTIPLE (05/25/16) PERFORMANCE OF URINARY FILTRATION, SINGLE (02/03/17) REMOVAL OF INFUSION DEVICE FROM GREAT VESSEL, PERC APPROACH (01/22/18) REMOVAL OF INFUSION DEVICE FROM LOWER VEIN, PERC APPROACH (04/02/16) REMOVAL OF INFUSION DEVICE FROM UPPER VEIN, PERC APPROACH (12/05/17) REPOSITION RIGHT LOWER FEMUR, EXTERNAL APPROACH (05/25/16) TRANSFUSE NONAUT RED BLOOD CELLS IN PERIPH VEIN, PERC (05/25/16) ULTRASONOGRAPHY OF RIGHT SUBCLAVIAN VEIN, GUIDANCE (06/19/17) Family History: States: Unknown Family Hx - Social History Hx Tobacco Use: Yes (former smoker) Hx Alcohol Use: No Hx Substance Use: No - Immunization History Hx Tetanus Toxoid Vaccination: Yes Hx Influenza Vaccination: Yes Hx Pneumococcal Vaccination: No Review Of Systems Except As Marked, All Systems Reviewed And Found Negative. Constitutional: Negative for: Fever Cardiovascular: Negative for: Chest Pain, Palpitations Gastrointestinal: Negative for: Nausea, Vomiting, Abdominal Pain, Diarrhea Musculoskeletal: Negative for: Neck Pain Neurological: Positive for: Altered Mental Status Physical Exam - Physical Exam Appears: Well, Non-toxic, Other (slight somnolent) Skin: Normal Color, Warm Head: Normacephalic Eye(s): bilateral: PERRL Nose: No Flaring Oral Mucosa: Moist Throat: No Drooling Neck: Trachea Midline Chest: Other ((+) Right upper chest dialysis cath, appears displaced. No surround edema, erythema, no discharge) Cardiovascular: Rhythm Regular, No Murmur, No JVD Respiratory: No Decreased Breath Sounds, No Accessory Muscle Use, No Stridor, No Wheezing Gastrointestinal/Abdominal: Soft, No Tenderness, No Distention, No Guarding Extremity: Other (B/L BKA) Neurological/Psych: Oriented x3, Normal Speech ED Course And Treatment - Laboratory Results Result Diagrams: 07/14/18 17:40 07/14/18 17:40 Lab Interpretation: No Changes Compared To Prior Results ECG: Interpreted By Me, Viewed By Me (and Ed attending) Interpretation Of ECG: Sinus zaki@56/min,1st degree AVB, LAD, no acute ST-T Changes O2 Sat by Pulse Oximetry: 100 Pulse Ox Interpretation: Normal - Radiology CXR: Interpreted by Me, Viewed By Me CXR Interpretation: Yes: No Acute Disease, Other (similar to previous study) Progress Note: Case discussed with , diagnostics review and admisison recommend. On re-eval, pt appears AAO#3 now, comfortable, more awake. Tolerate PO well in ED. repeat FSBS 88. Case discussed with , will eval pt in hospital. case discussed with and admission arranged to tele. Critical Care Time - Critical Care Note Total Time (in mins): 50 Documented critical care: time excludes all time spent performing seperately billable procedures. Disposition - Disposition Disposition: HOSPITALIZED Disposition Time: 17:50 Condition: STABLE Forms: [facility] ([place]) - Clinical Impression Clinical Impression: ESRD (end stage renal disease), Hypoglycemia associated with diabetes, Complications, dialysis, catheter, mechanical
[2018-07-14] MEDS ORDERED: Sodium Chloride 0.9% 1,000 ML IV ONE (15:38)
[2018-07-14] MEDS ORDERED: Dextrose 50% SYRINGE Inj (50 ml) ONE (15:41)
[2018-07-14] MEDS ORDERED: Dextrose 50% SYRINGE Inj (50 ml) IV STA (15:44)
[2018-07-14 17:33] LABS: ARTERIAL BLOOD GAS HCO3 19.5 mmol/L (21-28); ARTERIAL BLOOD GAS O2 SAT 66.3 % (95-98); ARTERIAL BLOOD GAS PCO2 50 mm/Hg (35-45); ARTERIAL BLOOD GAS PH 7.25 (7.35-7.45); ARTERIAL BLOOD GAS PO2 37 mm/Hg (80-100); ARTERIAL BLOOD GAS TCO2 23.4 mmol/L (22-28)
[2018-07-14 17:43] LABS: EOS # 0.1 K/uL (0.0-0.7); EOS % 2.7 % (0.0-4.0); HEMOGLOBIN 12.1 g/dL (11.0-16.0); LYMPH % 23.9 % (20.0-40.0); MEAN CELL VOLUME 100.9 fL (81.0-99.0); MEAN CORPUSCULAR HEMOGLOBIN 33.2 pg (27.0-31.0); MEAN CORPUSCULAR HGB CONC 32.9 g/dL (33.0-37.0); MEAN PLATELET VOLUME 8.6 fL (7.2-11.7); MONO # 0.2 K/uL (0.0-0.8); MONO % 6.1 % (0.0-10.0); NEUT # 2.7 K/uL (1.8-7.0); NEUT % 66.3 % (50.0-75.0); RBC 3.65 Mil/uL (3.80-5.20); RED CELL DISTRIBUTION WIDTH 17.1 % (11.5-14.5)
[2018-07-14 17:51] LABS: PROTHROMBIN TIME 10.8 SECONDS (9.7-12.2)
[2018-07-14 17:57] LABS: ALB/GLOB RATIO 1.1 (1.0-2.1); ALBUMIN 3.9 g/dL (3.5-5.0); CALCIUM 8.9 mg/dl (8.6-10.4)
[2018-07-14 18:07] LABS: TROPONIN I 0.02 ng/mL (0.00-0.120)
--- NOTE | 2018-07-14 18:42 | RAD ---
Date of service: 07/14/2018 PROCEDURE: CHEST RADIOGRAPH, 1 VIEW HISTORY: abd pain COMPARISON: 01/31/2018 FINDINGS: LUNGS: No new infiltrate. PLEURA: No pneumothorax or pleural fluid seen. CARDIOVASCULAR: Mild atherosclerotic change of the aorta. Unchanged. OSSEOUS STRUCTURES: No significant abnormalities. VISUALIZED UPPER ABDOMEN: Normal. OTHER FINDINGS: Vascular stents are identified. Right catheter has been removed since prior study. IMPRESSION: No active disease.
--- NOTE | 2018-07-14 19:02 | CP.PCM.CON ---
History of Present Illness - History of Present Illness History of Present Illness: Vascular Surgery Consult Re: permacath dislodging HPI: 58F brought to ED by family for evaluation of weakness, slurred speech that developed over the day. Found to have glucose of 40. At present time, pt is awake and states that her permacath is falling out. No other complaints at this time. PMH: HIV, PAD, HTN, HLD, chronic left heel ulcer, CKD (on HD MWF), and poorly controlled DM PSH: Left AKA, multiple AV fistulas, cholecystectomy, permacath placements and removals SH: Denies Tobacco, EtOH, and drug use FH: Noncontributory All: NKDA Meds: See MAR Review of Systems - Review of Systems All systems: reviewed and no additional remarkable complaints except (as per HPI) Past Patient History - Infectious Disease Hx of Infectious Diseases: None - Past Medical History & Family History Past Medical History?: Yes - Past Social History Smoking Status: Never Smoked - CARDIAC Hx Congestive Heart Failure: Yes Hx Hypertension: Yes - PULMONARY Hx Respiratory Disorders: No - NEUROLOGICAL Hx Dementia: Yes - HEENT Hx HEENT Problems: Yes (wears glasses) Hx Glaucoma: Yes - RENAL Hx Chronic Kidney Disease: Yes Hx Kidney Stones: No - ENDOCRINE/METABOLIC Hx Hyperthyroidism: Yes Hx Hypothyroidism: Yes - HEMATOLOGICAL/ONCOLOGICAL Hx Human Immunodeficiency Virus (HIV): Yes - INTEGUMENTARY Hx Dermatological Problems: No - MUSCULOSKELETAL/RHEUMATOLOGICAL Hx Falls: Yes - GASTROINTESTINAL Hx Gastrointestinal Disorders: No - GENITOURINARY/GYNECOLOGICAL Hx Genitourinary Disorders: Yes Other/Comment: oliguria, on hemodialysis MWF - PSYCHIATRIC Hx Anxiety: Yes Hx Substance Use: No - SURGICAL HISTORY Hx Cholecystectomy: Yes - ANESTHESIA Hx Anesthesia: Yes Hx Anesthesia Reactions: No Hx Malignant Hyperthermia: No Meds Allergies/Adverse Reactions: Allergies Allergy/AdvReac Type Severity Reaction Status Date / Time No Known Allergies Allergy Verified 01/22/18 11:38 Physical Exam - Constitutional Appears: Non-toxic, No Acute Distress - Head Exam Head Exam: ATRAUMATIC, NORMOCEPHALIC - Eye Exam Eye Exam: EOMI. absent: Scleral icterus - ENT Exam ENT Exam: Mucous Membranes Moist Additional comments: trachea midline - Neck Exam Neck exam: Positive for: Full Rom. Negative for: Tenderness - Respiratory Exam Respiratory Exam: NORMAL BREATHING PATTERN. absent: Chest Wall Tenderness, Respiratory Distress Additional comments: R permacath appears to be almost entirely dislodged - Cardiovascular Exam Cardiovascular Exam: +S1, +S2. absent: Tachycardia - GI/Abdominal Exam GI & Abdominal Exam: Soft. absent: Distended, Tenderness - Rectal Exam Rectal Exam: Deferred - Extremities Exam Extremities exam: Positive for: normal capillary refill Additional comments: R BKA - Back Exam Back exam: absent: CVA tenderness (L), CVA tenderness (R) - Neurological Exam Neurological exam: Alert, Oriented x3 - Skin Skin Exam: Dry, Warm Results - Vital Signs Recent Vital Signs: Last Vital Signs Temp 97.6 F 07/14/18 15:04 Pulse 56 L 07/14/18 17:46 Resp 18 07/14/18 17:46 BP 133/39 L 07/14/18 17:46 Pulse Ox 100 07/14/18 18:36 - Labs Result Diagrams: 07/14/18 17:40 07/14/18 17:40 Labs: Laboratory Results - last 24 hr 07/14/18 07/14/18 07/14/18 15:35 15:36 17:09 WBC RBC Hgb Hct MCV MCH MCHC RDW Plt Count MPV Neut % (Auto) Lymph % (Auto) [place] % (Auto) Eos % (Auto) Baso % (Auto) Neut # (Auto) Lymph # (Auto) [place] # (Auto) Eos # (Auto) Baso # (Auto) PT INR APTT Puncture Site pCO2 pO2 HCO3 ABG pH ABG Total CO2 ABG O2 Saturation ABG Base Excess [place]rick Test ABG Potassium Sodium Chloride Glucose Lactate Potassium Carbon Dioxide Anion Gap BUN Creatinine Est GFR ( Amer) Est GFR (Non-Af Amer) POC Glucose (mg/dL) 41 L 48 L 97 Random Glucose Calcium Phosphorus Magnesium Total Bilirubin AST ALT Alkaline Phosphatase Troponin I Total Protein Albumin Globulin Albumin/Globulin Ratio Lipase Arterial Blood Potassium 07/14/18 07/14/18 07/14/18 17:31 17:40 17:40 WBC 4.0 L RBC 3.65 L Hgb 12.1 Hct 36.8 MCV 100.9 H D MCH 33.2 H MCHC 32.9 L RDW 17.1 H Plt Count 139 MPV 8.6 Neut % (Auto) 66.3 Lymph % (Auto) 23.9 [place] % (Auto) 6.1 Eos % (Auto) 2.7 Baso % (Auto) 1.0 Neut # (Auto) 2.7 Lymph # (Auto) 1.0 [place] # (Auto) 0.2 Eos # (Auto) 0.1 Baso # (Auto) 0.0 PT 10.8 INR 1.0 APTT 36 H Puncture Site Venous pCO2 50 H pO2 37 L* HCO3 19.5 L ABG pH 7.25 L ABG Total CO2 23.4 ABG O2 Saturation 66.3 L ABG Base Excess -5.6 L Sedrick Test Na ABG Potassium 4.5 Sodium 140.0 Chloride 108.0 H Glucose 63 L Lactate 1.8 Potassium Carbon Dioxide Anion Gap BUN Creatinine Est GFR ( Amer) Est GFR (Non-Af Amer) POC Glucose (mg/dL) Random Glucose Calcium Phosphorus Magnesium Total Bilirubin AST ALT Alkaline Phosphatase Troponin I Total Protein Albumin Globulin Albumin/Globulin Ratio Lipase Arterial Blood Potassium 4.5 07/14/18 17:40 WBC RBC Hgb Hct MCV MCH MCHC RDW Plt Count MPV Neut % (Auto) Lymph % (Auto) [place] % (Auto) Eos % (Auto) Baso % (Auto) Neut # (Auto) Lymph # (Auto) [place] # (Auto) Eos # (Auto) Baso # (Auto) PT INR APTT Puncture Site pCO2 pO2 HCO3 ABG pH ABG Total CO2 ABG O2 Saturation ABG Base Excess Sedrick Test ABG Potassium Sodium 136 Chloride 98 Glucose Lactate Potassium 5.1 Carbon Dioxide 25 Anion Gap 18 BUN 59 H Creatinine 6.9 H Est GFR ( Amer) 7 Est GFR (Non-Af Amer) 6 POC Glucose (mg/dL) Random Glucose 88 Calcium 8.9 Phosphorus 6.0 H Magnesium 2.4 H Total Bilirubin 0.4 AST 22 ALT 20 Alkaline Phosphatase 210 H D Troponin I 0.0200 Total Protein 7.5 Albumin 3.9 Globulin 3.7 Albumin/Globulin Ratio 1.1 Lipase 82 Arterial Blood Potassium - Imaging and Cardiology Chest x-ray Status: Image reviewed by me Assessment & Plan - Assessment and Plan (Free Text) Assessment: 58F with dislodged permacath Plan: OR tomorrow for removal and replacement of permacath NPO p MN AM labs gentle IVF p MN D/W Dr. Yahir Velazquez PGY4
[2018-07-15] MEDS ORDERED: Emtricitabine-Tenofovir 200 mg-300 mg Tab PO SCH (01:15)
[2018-07-15] MEDS ORDERED: Dextrose 50% SYRINGE Inj (50 ml) IV STA (06:48)
[2018-07-15] MEDS ORDERED: Dextrose 50% SYRINGE Inj (50 ml) ONE ×2 (06:52→11:35)
[2018-07-15 07:51] LABS: EOS # 0.1 K/uL (0.0-0.7); EOS % 3.6 % (0.0-4.0); HEMOGLOBIN 12.3 g/dL (11.0-16.0); LYMPH % 36.2 % (20.0-40.0); MEAN CELL VOLUME 101.8 fL (81.0-99.0); MEAN CORPUSCULAR HEMOGLOBIN 33.4 pg (27.0-31.0); MEAN CORPUSCULAR HGB CONC 32.8 g/dL (33.0-37.0); MEAN PLATELET VOLUME 9.1 fL (7.2-11.7); MONO # 0.1 K/uL (0.0-0.8); MONO % 4.2 % (0.0-10.0); NEUT # 1.5 K/uL (1.8-7.0); RBC 3.68 Mil/uL (3.80-5.20); RED CELL DISTRIBUTION WIDTH 17.4 % (11.5-14.5); WHITE BLOOD COUNT 2.7 K/uL (4.8-10.8)
[2018-07-15] MEDS: (Novolin R) Insulin Human Regular 100 units/ml vial SC SCH ×4 (07:55→21:57)
[2018-07-15 07:59] LABS: PROTHROMBIN TIME 10.6 SECONDS (9.7-12.2)
[2018-07-15 08:40] LABS: ALBUMIN 3.9 g/dL (3.5-5.0); CALCIUM 8.7 mg/dl (8.6-10.4)
[2018-07-15] MEDS: Multivitamin Vitamin B Complex (Nephro-Vite) Tab PO SCH (10:42)
[2018-07-15] MEDS: Emtricitabine-Tenofovir 200 mg-300 mg Tab PO SCH (12:30)
[2018-07-15] MEDS ORDERED: Propofol 10 mg/ml Inj (20 ML) ONE (14:14)
[2018-07-15] MEDS ORDERED: Midazolam 2 MG/2 ML VIAL ONE (14:14)
[2018-07-15] MEDS ORDERED: HEPARIN-NS 5,000 UNITS/500 ML 5,000 UNIT/500 ML BAG IV ONE (14:20)
[2018-07-15] MEDS ORDERED: ceFAZolin 1 gm FROZEN Premix 2 GM/100 ML ML IVPB ONE (14:23)
[2018-07-15] MEDS ORDERED: Iohexol 240 (50 ml) ONE ×2 (15:00→15:13)
[2018-07-15] MEDS ORDERED: Phenylephrine 10 mg/ml Inj ONE (15:27)
--- NOTE | 2018-07-15 15:39 | PCM.SURG1 ---
Surgeon's Initial Post Op Note - Surgeon's Notes Surgeon: Dr. Sinclair Investment Representative: Dr. Palacios Type of Anesthesia: General Endo Pre-Operative Diagnosis: ESRD Operative Findings: See operative dictation Post-Operative Diagnosis: ESRD Operation Performed: Attempted permacath insertion Specimen/Specimens Removed: Permacath Estimated Blood Loss: EBL {In ML}: 20 Blood Products Given: N/A Drains Used: No Drains Post-Op Condition: Good Date of Surgery/Procedure: 07/15/18 Time of Surgery/Procedure: 15:39
[2018-07-15] MEDS ORDERED: HYDROmorphone 0.5 mg/0.5 ml ISec IVP PRN (15:43)
[2018-07-15] MEDS ORDERED: Sod Polystyrene Sulf 15 gm/60 ml Susp PO ONE ×2 (16:40→17:34)
--- NOTE | 2018-07-15 17:09 | RAD ---
HISTORY: Attempted Central venous access bilaterally COMPARISON: Chest x-ray performed 07/14/18 TECHNIQUE: Chest, one view. FINDINGS: Examination limited by habitus, patient obliquity, and marked hypoinflation. LUNGS: No focal consolidation. Please note that chest x-ray has limited sensitivity for the detection of pulmonary masses. PLEURA: No significant pleural effusion identified. No definite pneumothorax . CARDIOVASCULAR: Cardiomegaly. Atherosclerotic calcification present. 3 vascular stents re-identified. OSSEOUS STRUCTURES: Degenerative changes. VISUALIZED UPPER ABDOMEN: Right upper quadrant surgical clips. OTHER FINDINGS: None. IMPRESSION: Hypoinflation. Three vascular stents re-identified. Cholecystectomy clips.
--- NOTE | 2018-07-15 17:54 | RAD ---
Date of service: 07/15/2018 PROCEDURE: Intraoperative Fluoroscopy. HISTORY: RENAL FAILURE FINDINGS: Fluoroscopic assistance was provided. Fluoroscopy time = 138.5 sec. Radiation dose = 39.97 mGy. Please refer to the operative report from GILBERTO Plummer.
--- NOTE | 2018-07-15 20:04 | CARD ---
APPROVED REPORT Date of service: 07/14/2018 EKG Measurement Heart [id number] <Conclusion> Sinus bradycardia with 1st degree AV block Cannot rule out Anterior infarct, age undetermined Abnormal ECG
--- NOTE | 2018-07-15 23:53 | CP.PCM.HP ---
Past Patient History - Infectious Disease Hx of Infectious Diseases: None - Past Medical History & Family History Past Medical History?: Yes - Past Social History Smoking Status: Never Smoked - CARDIAC Hx Congestive Heart Failure: Yes Hx Hypertension: Yes - PULMONARY Hx Respiratory Disorders: No - NEUROLOGICAL Hx Dementia: Yes - HEENT Hx HEENT Problems: Yes (wears glasses) Hx Glaucoma: Yes - RENAL Hx Chronic Kidney Disease: Yes Hx Kidney Stones: No - ENDOCRINE/METABOLIC Hx Hyperthyroidism: Yes Hx Hypothyroidism: Yes - HEMATOLOGICAL/ONCOLOGICAL Hx Human Immunodeficiency Virus (HIV): Yes - INTEGUMENTARY Hx Dermatological Problems: No - MUSCULOSKELETAL/RHEUMATOLOGICAL Hx Falls: Yes - GASTROINTESTINAL Hx Gastrointestinal Disorders: No - GENITOURINARY/GYNECOLOGICAL Hx Genitourinary Disorders: Yes Other/Comment: oliguria, on hemodialysis MWF - PSYCHIATRIC Hx Anxiety: Yes Hx Substance Use: No - SURGICAL HISTORY Hx Cholecystectomy: Yes - ANESTHESIA Hx Anesthesia: Yes Hx Anesthesia Reactions: No Hx Malignant Hyperthermia: No Meds Allergies/Adverse Reactions: Allergies Allergy/AdvReac Type Severity Reaction Status Date / Time No Known Allergies Allergy Verified 01/22/18 11:38 Results - Vital Signs Recent Vital Signs: Last Vital Signs Temp 97.2 F L 07/15/18 17:00 Pulse 85 07/15/18 17:00 Resp 20 07/15/18 17:00 BP 96/61 L 07/15/18 17:00 Pulse Ox 97 07/15/18 17:00 - Labs Result Diagrams: 07/15/18 07:47 07/15/18 07:47 Labs: Laboratory Results - last 24 hr 07/15/18 07/15/18 07/15/18 06:42 06:44 07:29 WBC RBC Hgb Hct MCV MCH MCHC RDW Plt Count MPV Neut % (Auto) Lymph % (Auto) [place] % (Auto) Eos % (Auto) Baso % (Auto) Neut # (Auto) Lymph # (Auto) [place] # (Auto) Eos # (Auto) Baso # (Auto) PT INR APTT Sodium Potassium Chloride Carbon Dioxide Anion Gap BUN Creatinine Est GFR ( Amer) Est GFR (Non-Af Amer) POC Glucose (mg/dL) 64 L 53 L 188 H Random Glucose Hemoglobin A1c Calcium Phosphorus Magnesium Total Bilirubin AST ALT Alkaline Phosphatase Total Protein Albumin Globulin Albumin/Globulin Ratio 07/15/18 07/15/18 07/15/18 07:47 07:47 07:47 WBC 2.7 L RBC 3.68 L Hgb 12.3 Hct 37.4 MCV 101.8 H MCH 33.4 H MCHC 32.8 L RDW 17.4 H Plt Count 151 MPV 9.1 Neut % (Auto) 55.0 Lymph % (Auto) 36.2 [place] % (Auto) 4.2 Eos % (Auto) 3.6 Baso % (Auto) 1.0 Neut # (Auto) 1.5 L Lymph # (Auto) 1.0 [place] # (Auto) 0.1 Eos # (Auto) 0.1 Baso # (Auto) 0.0 PT 10.6 INR 1.0 APTT 41 H D Sodium 138 Potassium 5.7 H Chloride 103 Carbon Dioxide 21 L Anion Gap 20 BUN 66 H Creatinine 7.4 H* Est GFR ( Amer) 7 Est GFR (Non-Af Amer) 6 POC Glucose (mg/dL) Random Glucose 141 H Hemoglobin A1c Calcium 8.7 Phosphorus 6.2 H Magnesium 2.4 H Total Bilirubin 0.5 AST 24 ALT 18 Alkaline Phosphatase 223 H Total Protein 7.8 Albumin 3.9 Globulin 3.9 Albumin/Globulin Ratio 1.0 07/15/18 07/15/18 07/15/18 10:00 11:18 11:30 WBC RBC Hgb Hct MCV MCH MCHC RDW Plt Count MPV Neut % (Auto) Lymph % (Auto) [place] % (Auto) Eos % (Auto) Baso % (Auto) Neut # (Auto) Lymph # (Auto) [place] # (Auto) Eos # (Auto) Baso # (Auto) PT INR APTT Sodium Potassium Chloride Carbon Dioxide Anion Gap BUN Creatinine Est GFR ( Amer) Est GFR (Non-Af Amer) POC Glucose (mg/dL) 68 59 L Random Glucose Hemoglobin A1c 5.2 Calcium Phosphorus Magnesium Total Bilirubin AST ALT Alkaline Phosphatase Total Protein Albumin Globulin Albumin/Globulin Ratio 07/15/18 07/15/18 07/15/18 12:04 17:18 17:22 WBC RBC Hgb Hct MCV MCH MCHC RDW Plt Count MPV Neut % (Auto) Lymph % (Auto) [place] % (Auto) Eos % (Auto) Baso % (Auto) Neut # (Auto) Lymph # (Auto) [place] # (Auto) Eos # (Auto) Baso # (Auto) PT INR APTT Sodium Potassium Chloride Carbon Dioxide Anion Gap BUN Creatinine Est GFR ( Amer) Est GFR (Non-Af Amer) POC Glucose (mg/dL) 166 H 61 L 76 Random Glucose Hemoglobin A1c Calcium Phosphorus Magnesium Total Bilirubin AST ALT Alkaline Phosphatase Total Protein Albumin Globulin Albumin/Globulin Ratio 07/15/18 07/15/18 17:44 20:57 WBC RBC Hgb Hct MCV MCH MCHC RDW Plt Count MPV Neut % (Auto) Lymph % (Auto) [place] % (Auto) Eos % (Auto) Baso % (Auto) Neut # (Auto) Lymph # (Auto) [place] # (Auto) Eos # (Auto) Baso # (Auto) PT INR APTT Sodium Potassium Chloride Carbon Dioxide Anion Gap BUN Creatinine Est GFR ( Amer) Est GFR (Non-Af Amer) POC Glucose (mg/dL) 79 175 H Random Glucose Hemoglobin A1c Calcium Phosphorus Magnesium Total Bilirubin AST ALT Alkaline Phosphatase Total Protein Albumin Globulin Albumin/Globulin Ratio
--- NOTE | 2018-07-16 03:07 | OP ---
PROCEDURE DATE: 07/14/2018 PREOPERATIVE DIAGNOSIS: Renal failure, lost catheter. POSTOPERATIVE DIAGNOSIS: Renal failure, lost catheter. PROCEDURE: Attempt at placement of PermCath via right subclavian, left subclavian, right femoral, left femoral vein. SURGEON: Aden Sinclair Jr., MD. ASSISTANTS: Oscar Palacios DO ANESTHESIOLOGIST: ____ OBSERVATION ASSISTANT. INDICATIONS: The patient is a 58- year-old woman with a variety of medical problems, bilateral knee amputation. Has a multiple catheters. She came in yesterday with a catheter falling out of her chest. OPERATIVE FINDINGS: Preoperative fluoroscopy demonstrated the catheter was no longer in the vein. DESCRIPTION OF PROCEDURE: The patient was given general anesthesia. We attempted at placing catheter via every system and there was stent in place in thrombosed vessels which we saw on the angiogram procedure. Because of this, we abandoned the procedure and were unable to place the catheter. The patient was given general anesthesia and intravenous antibiotics. The right subclavian vein was cannulated and the guidewire advanced centrally. We advanced a sheath over this. We took a venogram that basically showed the central veins were occluded on this side. We then went to the left groin where we saw the vein in the groin, attempted to place catheter again. Both iliac bifurcations and it appeared the the vena cava was occluded. Because of this we abandoned any attempts of placement here. We then went to the right groin and the left subclavian vein facing similar problems, unable to advance the catheter. We then abandoned all attempts. My feeling is that the best attempt would probably be to attempt to place a peritoneal dialysis catheter. This will be reviewed with the patient. Aden Sinclair Jr., MD
[2018-07-16] MEDS ORDERED: Tmp-Smz 800 mg-160 mg DS Tab PO SCH (09:00)
[2018-07-16] MEDS: Multivitamin Vitamin B Complex (Nephro-Vite) Tab PO SCH (11:36)
[2018-07-16] MEDS: (Novolin R) Insulin Human Regular 100 units/ml vial SC SCH ×5 (11:36→21:18)
[2018-07-16] MEDS ORDERED: Midazolam 2 MG/2 ML VIAL ONE (14:02)
[2018-07-16] MEDS ORDERED: Propofol 10 mg/ml Inj (20 ML) ONE (14:03)
[2018-07-16] MEDS ORDERED: Lidocaine Hydrochloride 10 ML INJ ONE (14:16)
[2018-07-16 14:22] LABS: MEAN CELL VOLUME 101.4 fL (81.0-99.0); MEAN CORPUSCULAR HEMOGLOBIN 33.6 pg (27.0-31.0); MEAN CORPUSCULAR HGB CONC 33.1 g/dL (33.0-37.0); MEAN PLATELET VOLUME 9.1 fL (7.2-11.7); RBC 3.29 Mil/uL (3.80-5.20); RED CELL DISTRIBUTION WIDTH 17.4 % (11.5-14.5)
[2018-07-16] MEDS ORDERED: ceFAZolin 1 gm in NS 1 GM/100 ML BAG IVPB ONE (14:26)
[2018-07-16 14:38] LABS: ALB/GLOB RATIO 1.1 (1.0-2.1); ALBUMIN 3.8 g/dL (3.5-5.0); CALCIUM 8.2 mg/dl (8.6-10.4)
[2018-07-16] MEDS ORDERED: Iohexol 240 (50 ml) ONE (14:39)
--- NOTE | 2018-07-16 15:11 | PCM.SURG1 ---
Surgeon's Initial Post Op Note - Surgeon's Notes Surgeon: Baron Kelly MD Diagnostics Sales Developer: NONE Type of Anesthesia: IV Sedation Pre-Operative Diagnosis: REnal failure, central venous occlusion, IVC occlusion. Operative Findings: US showed a patent hepatic vein. Post-Operative Diagnosis: REnal failure, central venous occlusion, IVC occlusion. Operation Performed: Transhepatic HD catheter placement, 19 cm cuff to tip. Specimen/Specimens Removed: NONE Estimated Blood Loss: EBL {In ML}: 5 Blood Products Given: N/A Drains Used: No Drains Post-Op Condition: Fair Date of Surgery/Procedure: 07/16/18 Time of Surgery/Procedure: 15:05
[2018-07-16] MEDS: HYDROmorphone 0.5 mg/0.5 ml ISec IVP PRN ×2 (15:13→15:30)
[2018-07-16 20:34] VITALS: RESP 20
--- NOTE | 2018-07-17 03:10 | PN ---
DATE: 07/16/2018 SUBJECTIVE: The patient is status post PermCath placement by Interventional Radiology, and the patient is undergoing dialysis at the moment. She is still hypoglycemic. She feels weak. She is afebrile. PHYSICAL EXAMINATION: VITAL SIGNS: Blood pressure 90/54, pulse 86, respiratory rate 20, and temperature 97.7. LUNGS: Decreased air entry. CARDIOVASCULAR SYSTEM: S1 and S2, regular. ABDOMEN: Soft. LABORATORY DATA: WBC is 3, hemoglobin 11, hematocrit 33.3, platelets 141. Sodium 138, potassium 4.7, chloride 99, bicarbonate 21, BUN 71, creatinine , calcium 8.2, and phosphorus 6.7. ASSESSMENT: 1. End-stage renal disease for hemodialysis. 2. Type 2 diabetes, off antidiabetic medications, on AccuCheck. Blood sugars are low on D10. 3. Hypertension. PLAN: Hemodialysis. Monitor the patient. Kiran Hernandez MD
--- NOTE | 2018-07-17 04:47 | HP ---
CHIEF COMPLAINT: Weakness, slurring of speech for one day. HISTORY OF PRESENT ILLNESS: This is a 58-year-old female with history of multiple medical problems, including acquired immunodeficiency syndrome; peripheral arterial disease with left above-knee amputation; hypertension; hyperlipidemia; chronic ulcer on the foot; CKD, supposed to be on hemodialysis, but she has not been having dialysis due to poor compliance; poorly controlled diabetes, status post left above-knee amputation; multiple AV fistula; cholecystectomy; PermCath placement and removal, who is noncompliant with diet, medication, and followup. She just stopped doing dialysis. On the day prior to admission, she started having generalized weakness, tiredness, anorexia, malaise, and fatigue. The patient is a poor historian. She denies any fevers or chills. She denies any abdominal pain, nausea, vomiting, or diarrhea. She denies any polyuria, polydipsia, or polyphagia. She denies any hematuria or pyuria. She denies any sneezing, itchy eyes, or itchy nose. CURRENT MEDICATIONS: She is supposed to be on Bactrim, Renvela, Compazine, Neurontin, multivitamin, Truvada, Colace, Cymbalta, Tylenol, MiraLax, Starlix, heparin, Dilaudid, Procrit, and Maalox. SOCIAL HISTORY: Ex-smoker, ex-EtOH user. PAST MEDICAL HISTORY: 1. AIDS, unknown details. No known CD4 count, no known viral load. It is not even sure if she is compliant. 2. Diabetes, poorly controlled. 3. Hypertension. 4. PAD. PHYSICAL EXAMINATION: GENERAL: An elderly middle-aged female. At the moment, she denies any distress. VITAL SIGNS: Blood pressure 115/51, pulse 57, respiratory rate 14, and temperature 97. SKIN: No rashes. She has clean healed scar, left AKA stump. HEENT: Atraumatic and normocephalic. Negative PERRLA. Negative jaundice. Extraocular movements are intact. NECK: Supple. No JVD. No lymph node. No thyromegaly. CHEST: Chest wall, bilateral symmetrical expansion. LUNGS: Clear. No rale. No rhonchi. CARDIOVASCULAR SYSTEM: PMI not localized. S1 and S2 regular. ABDOMEN: Soft and nontender. Bowel sounds are positive. PELVIC: Refused. RECTAL: Refused. EXTREMITIES: Left AKA stump is clean. The right leg has chronic changes in the feet. CENTRAL NERVOUS SYSTEM: Awake, alert, and oriented x3. Cranial nerves II through XII are normal. Power 5/5 x4. ASSESSMENT: 1. End-stage renal disease. Needs to be dialyzed with lack of exercise. 2. Acquired immunodeficiency syndrome. 3. Type 2 diabetes, poorly controlled with diabetic nephropathy. 4. Hypertension. PLAN: Admit. Vascular consult. Monitor the patient. Kiran Hernandez MD
[2018-07-17] MEDS: (Novolin R) Insulin Human Regular 100 units/ml vial SC SCH ×3 (08:06→16:53)
--- NOTE | 2018-07-17 08:15 | CP.PCM.PN ---
Subjective - Date & Time of Evaluation Date of Evaluation: 07/17/18 Time of Evaluation: 07:05 - Subjective Subjective: Surgery Progress note. Dr. Sinclair Pt seen and examined at bedside this morning. Pt obtained a transhepatic HD catheter placed yesterday by IR. Denies any complaints. No F/C. No Abd pain. Permacath site clean, dry and intact. Pt planning on getting HD today. Objective - Vital Signs/Intake and Output Vital Signs (last 24 hours): Temp Pulse Resp BP Pulse Ox 98.2 F 92 H 20 117/60 98 07/16/18 23:20 07/16/18 23:20 07/16/18 23:20 07/16/18 23:20 07/16/18 23:20 Intake and Output: 07/17/18 07/17/18 06:59 18:59 Intake Total 250 Balance 250 - Medications Medications: Current Medications Acetaminophen (Tylenol 325mg Tab) 650 mg PO Q6 PRN PRN Reason: Fever >100.4 F Docusate Sodium (Colace) 100 mg PO BID [facility] Last Admin: 07/16/18 18:00 Dose: Not Given Duloxetine HCl (Cymbalta) 30 mg PO DAILY [facility] Last Admin: 07/16/18 11:35 Dose: Not Given Emtricitabine/Tenofovir (Truvada 200 Mg-300 Mg) 1 tab PO Q48H [facility]; Protocol Last Admin: 07/15/18 12:30 Dose: Not Given Gabapentin (Neurontin) 100 mg PO TID [facility] Last Admin: 07/16/18 18:00 Dose: Not Given Heparin Sodium (Porcine) (Heparin) 5,000 units SC Q8 [facility] Last Admin: 07/17/18 05:49 Dose: 5,000 units Heparin Sodium (Porcine) (Heparin) 2,000 units IVP MWF [facility] Last Admin: 07/16/18 16:17 Dose: 2,000 units Heparin Sodium (Porcine) (Heparin) 3,700 units IVP MWF [facility] Last Admin: 07/16/18 18:26 Dose: 3,700 units Dextrose (Dextrose 10% In Water) 1,000 mls @ 40 mls/hr IV .Q24H [facility] Last Admin: 07/17/18 05:51 Dose: 40 mls/hr Insulin Human Regular (Novolin R) 0 unit SC ACHS [facility]; Protocol Last Admin: 07/16/18 21:18 Dose: Not Given Prochlorperazine (Compazine Rectal Supp) 25 mg RC BID PRN PRN Reason: Nausea/Vomiting Sevelamer Carbonate (Renvela) 800 mg PO TID [facility] Last Admin: 07/16/18 18:00 Dose: Not Given Trimethoprim/Sulfamethoxazole (Bactrim Ds Tab) 1 tab PO MWF [facility]; Protocol Last Admin: 07/16/18 11:35 Dose: Not Given Vitamin B Complex/Vit C/Folic Acid (Nephro-Carlos) 1 tab PO DAILY [facility] Last Admin: 07/16/18 11:36 Dose: Not Given - Labs Labs: 07/16/18 14:14 07/16/18 14:14 PT 10.6 SECONDS (9.7-12.2) 07/15/18 07:47 INR 1.0 07/15/18 07:47 APTT 41 SECONDS (21-34) H D 07/15/18 07:47 - Constitutional Appears: Non-toxic, No Acute Distress - Head Exam Head Exam: ATRAUMATIC, NORMAL INSPECTION, NORMOCEPHALIC - Eye Exam Eye Exam: EOMI, Normal appearance. absent: Scleral icterus - ENT Exam ENT Exam: Mucous Membranes Moist - Respiratory Exam Respiratory Exam: NORMAL BREATHING PATTERN. absent: Accessory Muscle Use, Respiratory Distress - Cardiovascular Exam Cardiovascular Exam: absent: JVD - GI/Abdominal Exam GI & Abdominal Exam: Soft. absent: Distended, Guarding, Tenderness, Rebound Additional comments: Right flank dressing clean, dry and intact - Extremities Exam Extremities Exam: Normal Inspection - Neurological Exam Neurological Exam: Alert, Awake, Oriented x3 - Psychiatric Exam Psychiatric exam: Normal Affect, Normal Mood - Skin Skin Exam: Dry, Intact, Normal Color, Warm Assessment and Plan - Assessment and Plan (Free Text) Assessment: 58yo F s/p Transhepatic HD catheter placement by IR. POD 1 Plan: - Please call surgery/IR department with any other concerns regarding HD access - No further surgical intervention warranted at this time Further recs as per Dr. Yahir Andrade PGY2 Surgery
[2018-07-17] MEDS: Multivitamin Vitamin B Complex (Nephro-Vite) Tab PO SCH (09:25)
--- NOTE | 2018-07-17 12:21 | RAD ---
PROCEDURE: Date of procedure: 07/16/2018 Procedure: 1. Placement of transhepatic tunneled hemodialysis catheter Medications: 8cc 1 percent lidocaine, IV sedation and physiologic monitoring performed by the anesthesiologist. EBL: 5 cm Radiation: 11.54 MGy Fluoro time: 48 seconds Images: 2 HISTORY: Renal failure requiring hemodialysis, central venous occlusion TECHNIQUE: Patient chronic occlusion of the central veins which were previously stented. The infrarenal IVC is atretic making a translumbar catheter placement not possible. Informed consent is obtained for transhepatic hemodialysis catheter placement. Following informed consent and procedure time-out, the patient was placed supine on the interventional table and the skin was marked. The patient's abdomen was prepped and draped in the usual sterile fashion. Ultrasound of patient's liver showed a patent hepatic vein. After the patient sedated by the anesthesiologist, a 21 gauge Chiba needle was advanced percutaneously under direct ultrasound guidance into the right hepatic vein. An 018 guidewire was advanced through the needle into right atrium. Accustick coaxial dilator was advanced over the needle and position within right atrium. A venogram was then performed confirming position of the catheter. A 19 centimeter cuff to tip hemodialysis catheter was then tunneled under the skin. The venotomy was then serially dilated to accommodate the peel-away sheath. The hemodialysis catheter was then advanced through a peel-away sheath. The catheter is positioned with tip at the cavoatrial junction confirm with fluoroscopic image. The catheter was tested and has adequate blood flow for hemodialysis. The catheter was flushed and locked with heparin per specified amount. The catheter secured to the skin with a 0 silk suture. IMPRESSION: Placement of transhepatic tunneled hemodialysis catheter 19 cm cuff-to-tip. The catheter tip is confirmed with spot radiograph and is at the cavoatrial junction. The catheter is functional and ready for use.
[2018-07-17] MEDS: Emtricitabine-Tenofovir 200 mg-300 mg Tab PO SCH (12:39)
--- NOTE | 2018-07-17 13:47 | CP.PCM.CON ---
History of Present Illness - History of Present Illness History of Present Illness: Nephrology Consultation Note: Assessment: Stable dialysis access dysfunction, hypoglycemia Diabetic chronic Kidney Disease (E11.22) Hypertensive Chronic Kidney Disease (I12.0) End stage renal disease (N18.6) dependence on hemodialysis (Z99.2) (MWF) via catheter Anemia (D64.9), Hyperphosphatemia (E83.39), Secondary Hyperparathyroidism (E21.1), HTN (I12.0) HIV on HAART Plan: for HD today once has new access in place plan for next HD tomorrow continue with Nephrovite 1 tab/day. PRBC as needed for anemia. not On KEESHA last Hb 12 Continue with phos binders home dose, last phos level 6 BP control with meds as ordered. Patient not on RAAS leatha but may add if BP high Glycemic control, Dialysis consistent diet Further work up/management as per primary team Dose meds/antibiotics (if needed) for ESRD status. Avoid fleets enema/magnesium based laxatives. d/c plan once has functional dialysis access Thanks for allowing me to participate in care of your patient. Will follow patient with you. Please call if any Qs. had d/w team Dr Antolin Dominguez Office: [phone] Chief Complaint; low sugar HPI: Pt is a 58 y/o F with hx of ESRD on hemodialysis (MWF) via PC, chronic anemia, hyperphosphatemia, secondary hyperparathyroidism, Diabetes Mellitus, hypertension, HIV on HAART b/l lower extremity amputation came as catheter was almost dislodged and she was having low sugar Denies chest pain, palpitation, shortness of breath, leg swelling she is on HD x [address] Falk @ [facility] ROS: denies any other complaints. sugar better on D5 drip. no SOB/chest pain All other negative. Physical Examination: General Appearance: Comfortable, in no acute respiratory distress, co-operative . Vitals reviewed and noted as below Head; Atraumatic, normocephalic ENT: no ulcers no thrush. Tongue is midline. Oropharynx: no rash or ulcers. EYES: Rt Pupil round and reactive to light accommodation. Eye muscles and extraocular movement intact. Sclera is anicteric. left pupil opacified Neck; supple no lymphadenopathy, no thyromegaly or bruit Lungs: Normal respiratory rate/effort. Breath sounds bilateral equal and clear Heart: Normal rate. s1s2 normal. No rub or gallop. Extremities: no edema. No varicose veins. has Rt BKA and left leg amputation Neurological: Patient is alert, awake and oriented to person, place and time. No focal deficit. Strength bilateral appropriate and equal Skin: Warm and dry. Normal turgor. No rash. Palpitation: Normal elasticity for age Abdomen: Abdomen is soft. Bowel sounds +. There is no abdominal tenderness, no guarding/rigidity or organomegaly Psych: normal insight and normal affect/mood MSK: no joint tenderness or swelling. Digits and nails normal, no deformity : kidney or bladder not palpable Access: permacath but dislodged Labs/imaging reviewed. Past medical history, past surgical history, family history, social history, allergy reviewed and noted as below Family Hx: no hx of CKD. Non contributory Past Patient History - Infectious Disease Hx of Infectious Diseases: None - Past Medical History & Family History Past Medical History?: Yes - Past Social History Smoking Status: Never Smoked - CARDIAC Hx Congestive Heart Failure: Yes Hx Hypertension: Yes - PULMONARY Hx Respiratory Disorders: No - NEUROLOGICAL Hx Dementia: Yes - HEENT Hx HEENT Problems: Yes (wears glasses) Hx Glaucoma: Yes - RENAL Hx Chronic Kidney Disease: Yes Hx Kidney Stones: No - ENDOCRINE/METABOLIC Hx Hyperthyroidism: Yes Hx Hypothyroidism: Yes - HEMATOLOGICAL/ONCOLOGICAL Hx Human Immunodeficiency Virus (HIV): Yes - INTEGUMENTARY Hx Dermatological Problems: No - MUSCULOSKELETAL/RHEUMATOLOGICAL Hx Falls: Yes - GASTROINTESTINAL Hx Gastrointestinal Disorders: No - GENITOURINARY/GYNECOLOGICAL Hx Genitourinary Disorders: Yes Other/Comment: oliguria, on hemodialysis MWF - PSYCHIATRIC Hx Anxiety: Yes Hx Substance Use: No - SURGICAL HISTORY Hx Cholecystectomy: Yes - ANESTHESIA Hx Anesthesia: Yes Hx Anesthesia Reactions: No Hx Malignant Hyperthermia: No Meds Allergies/Adverse Reactions: Allergies Allergy/AdvReac Type Severity Reaction Status Date / Time No Known Allergies Allergy Verified 01/22/18 11:38 - Medications Medications: Current Medications Acetaminophen (Tylenol 325mg Tab) 650 mg PO Q6 PRN PRN Reason: Fever >100.4 F Docusate Sodium (Colace) 100 mg PO BID [facility] Duloxetine HCl (Cymbalta) 30 mg PO DAILY [facility] Emtricitabine/Tenofovir (Truvada 200 Mg-300 Mg) 1 tab PO Q48H [facility]; Protocol Gabapentin (Neurontin) 100 mg PO TID [facility] Last Admin: 07/15/18 10:42 Dose: 100 mg Heparin Sodium (Porcine) (Heparin) 5,000 units SC Q8 [facility] Last Admin: 07/15/18 06:25 Dose: Not Given Dextrose (Dextrose 10% In Water) 1,000 mls @ 40 mls/hr IV .Q24H [facility] Last Admin: 07/15/18 08:28 Dose: 40 mls/hr Insulin Human Regular (Novolin R) 0 unit SC ACHS [facility]; Protocol Last Admin: 07/15/18 07:55 Dose: Not Given Prochlorperazine (Compazine Rectal Supp) 25 mg RC BID PRN PRN Reason: Nausea/Vomiting Sevelamer Carbonate (Renvela) 800 mg PO TID [facility] Last Admin: 07/15/18 10:36 Dose: Not Given Trimethoprim/Sulfamethoxazole (Bactrim Ds Tab) 1 tab PO MWF [facility]; Protocol Vitamin B Complex/Vit C/Folic Acid (Nephro-Carlos) 1 tab PO DAILY [facility] Last Admin: 07/15/18 10:42 Dose: 1 tab Results - Vital Signs Recent Vital Signs: Last Vital Signs Temp 98.4 F 07/15/18 08:48 Pulse 63 07/15/18 08:48 Resp 20 07/15/18 08:48 BP 108/53 L 07/15/18 08:48 Pulse Ox 97 07/15/18 08:48 - Labs Result Diagrams: 07/16/18 14:14 07/16/18 14:14 Labs: Laboratory Results - last 24 hr 07/14/18 07/14/18 07/14/18 15:35 15:36 17:09 WBC RBC Hgb Hct MCV MCH MCHC RDW Plt Count MPV Neut % (Auto) Lymph % (Auto) Alcorn % (Auto) Eos % (Auto) Baso % (Auto) Neut # (Auto) Lymph # (Auto) Alcorn # (Auto) Eos # (Auto) Baso # (Auto) PT INR APTT Puncture Site pCO2 pO2 HCO3 ABG pH ABG Total CO2 ABG O2 Saturation ABG Base Excess Sedrick Test ABG Potassium Sodium Chloride Glucose Lactate Potassium Carbon Dioxide Anion Gap BUN Creatinine Est GFR ( Amer) Est GFR (Non-Af Amer) POC Glucose (mg/dL) 41 L 48 L 97 Random Glucose Hemoglobin A1c Calcium Phosphorus Magnesium Total Bilirubin AST ALT Alkaline Phosphatase Troponin I Total Protein Albumin Globulin Albumin/Globulin Ratio Lipase Arterial Blood Potassium 07/14/18 07/14/18 07/14/18 17:31 17:40 17:40 WBC 4.0 L RBC 3.65 L Hgb 12.1 Hct 36.8 MCV 100.9 H D MCH 33.2 H MCHC 32.9 L RDW 17.1 H Plt Count 139 MPV 8.6 Neut % (Auto) 66.3 Lymph % (Auto) 23.9 Alcorn % (Auto) 6.1 Eos % (Auto) 2.7 Baso % (Auto) 1.0 Neut # (Auto) 2.7 Lymph # (Auto) 1.0 Alcorn # (Auto) 0.2 Eos # (Auto) 0.1 Baso # (Auto) 0.0 PT 10.8 INR 1.0 APTT 36 H Puncture Site Venous pCO2 50 H pO2 37 L* HCO3 19.5 L ABG pH 7.25 L ABG Total CO2 23.4 ABG O2 Saturation 66.3 L ABG Base Excess -5.6 L Sedrick Test Na ABG Potassium 4.5 Sodium 140.0 Chloride 108.0 H Glucose 63 L Lactate 1.8 Potassium Carbon Dioxide Anion Gap BUN Creatinine Est GFR ( Amer) Est GFR (Non-Af Amer) POC Glucose (mg/dL) Random Glucose Hemoglobin A1c Calcium Phosphorus Magnesium Total Bilirubin AST ALT Alkaline Phosphatase Troponin I Total Protein Albumin Globulin Albumin/Globulin Ratio Lipase Arterial Blood Potassium 4.5 07/14/18 07/14/18 07/15/18 17:40 21:22 06:42 WBC RBC Hgb Hct MCV MCH MCHC RDW Plt Count MPV Neut % (Auto) Lymph % (Auto) Alcorn % (Auto) Eos % (Auto) Baso % (Auto) Neut # (Auto) Lymph # (Auto) Alcorn # (Auto) Eos # (Auto) Baso # (Auto) PT INR APTT Puncture Site pCO2 pO2 HCO3 ABG pH ABG Total CO2 ABG O2 Saturation ABG Base Excess Sedrick Test ABG Potassium Sodium 136 Chloride 98 Glucose Lactate Potassium 5.1 Carbon Dioxide 25 Anion Gap 18 BUN 59 H Creatinine 6.9 H Est GFR ( Amer) 7 Est GFR (Non-Af Amer) 6 POC Glucose (mg/dL) 96 64 L Random Glucose 88 Hemoglobin A1c Calcium 8.9 Phosphorus 6.0 H Magnesium 2.4 H Total Bilirubin 0.4 AST 22 ALT 20 Alkaline Phosphatase 210 H D Troponin I 0.0200 Total Protein 7.5 Albumin 3.9 Globulin 3.7 Albumin/Globulin Ratio 1.1 Lipase 82 Arterial Blood Potassium 07/15/18 07/15/18 07/15/18 06:44 07:29 07:47 WBC 2.7 L RBC 3.68 L Hgb 12.3 Hct 37.4 MCV 101.8 H MCH 33.4 H MCHC 32.8 L RDW 17.4 H Plt Count 151 MPV 9.1 Neut % (Auto) 55.0 Lymph % (Auto) 36.2 Alcorn % (Auto) 4.2 Eos % (Auto) 3.6 Baso % (Auto) 1.0 Neut # (Auto) 1.5 L Lymph # (Auto) 1.0 Alcorn # (Auto) 0.1 Eos # (Auto) 0.1 Baso # (Auto) 0.0 PT INR APTT Puncture Site pCO2 pO2 HCO3 ABG pH ABG Total CO2 ABG O2 Saturation ABG Base Excess Sedrick Test ABG Potassium Sodium Chloride Glucose Lactate Potassium Carbon Dioxide Anion Gap BUN Creatinine Est GFR ( Amer) Est GFR (Non-Af Amer) POC Glucose (mg/dL) 53 L 188 H Random Glucose Hemoglobin A1c Calcium Phosphorus Magnesium Total Bilirubin AST ALT Alkaline Phosphatase Troponin I Total Protein Albumin Globulin Albumin/Globulin Ratio Lipase Arterial Blood Potassium 07/15/18 07/15/18 07/15/18 07:47 07:47 10:00 WBC RBC Hgb Hct MCV MCH MCHC RDW Plt Count MPV Neut % (Auto) Lymph % (Auto) Alcorn % (Auto) Eos % (Auto) Baso % (Auto) Neut # (Auto) Lymph # (Auto) Alcorn # (Auto) Eos # (Auto) Baso # (Auto) PT 10.6 INR 1.0 APTT 41 H D Puncture Site pCO2 pO2 HCO3 ABG pH ABG Total CO2 ABG O2 Saturation ABG Base Excess Sedrick Test ABG Potassium Sodium 138 Chloride 103 Glucose Lactate Potassium 5.7 H Carbon Dioxide 21 L Anion Gap 20 BUN 66 H Creatinine 7.4 H* Est GFR ( Amer) 7 Est GFR (Non-Af Amer) 6 POC Glucose (mg/dL) Random Glucose 141 H Hemoglobin A1c 5.2 Calcium 8.7 Phosphorus 6.2 H Magnesium 2.4 H Total Bilirubin 0.5 AST 24 ALT 18 Alkaline Phosphatase 223 H Troponin I Total Protein 7.8 Albumin 3.9 Globulin 3.9 Albumin/Globulin Ratio 1.0 Lipase Arterial Blood Potassium 07/15/18 07/15/18 07/15/18 11:18 11:30 12:04 WBC RBC Hgb Hct MCV MCH MCHC RDW Plt Count MPV Neut % (Auto) Lymph % (Auto) Alcorn % (Auto) Eos % (Auto) Baso % (Auto) Neut # (Auto) Lymph # (Auto) Alcorn # (Auto) Eos # (Auto) Baso # (Auto) PT INR APTT Puncture Site pCO2 pO2 HCO3 ABG pH ABG Total CO2 ABG O2 Saturation ABG Base Excess Sedrick Test ABG Potassium Sodium Chloride Glucose Lactate Potassium Carbon Dioxide Anion Gap BUN Creatinine Est GFR ( Amer) Est GFR (Non-Af Amer) POC Glucose (mg/dL) 68 59 L 166 H Random Glucose Hemoglobin A1c Calcium Phosphorus Magnesium Total Bilirubin AST ALT Alkaline Phosphatase Troponin I Total Protein Albumin Globulin Albumin/Globulin Ratio Lipase Arterial Blood Potassium
--- NOTE | 2018-07-17 13:49 | CP.PCM.PN ---
Subjective - Date & Time of Evaluation Date of Evaluation: 07/16/18 Time of Evaluation: 16:35 - Subjective Subjective: Nephrology Consultation Note: Assessment: Stable dialysis access dysfunction, hypoglycemia Diabetic chronic Kidney Disease (E11.22) Hypertensive Chronic Kidney Disease (I12.0) End stage renal disease (N18.6) dependence on hemodialysis (Z99.2) (MWF) via catheter Anemia (D64.9), Hyperphosphatemia (E83.39), Secondary Hyperparathyroidism (E21.1), HTN (I12.0) HIV on HAART Plan: for HD today once has new access in place. Pt for transhepatic dialysis catheter placement by IR continue with Nephrovite 1 tab/day. PRBC as needed for anemia. not On KEESHA last Hb 12 Continue with phos binders home dose, last phos level 6 BP control with meds as ordered. Patient not on RAAS leatha but may add if BP high Glycemic control, Dialysis consistent diet Further work up/management as per primary team Dose meds/antibiotics (if needed) for ESRD status. Avoid fleets enema/magnesium based laxatives. d/c plan once has functional dialysis access Thanks for allowing me to participate in care of your patient. Will follow patient with you. Please call if any Qs. had d/w team Dr Antolin Dominguez Office: [phone] Chief Complaint; low sugar HPI: Pt is a 58 y/o F with hx of ESRD on hemodialysis (MWF) via PC, chronic anemia, hyperphosphatemia, secondary hyperparathyroidism, Diabetes Mellitus, hypertension, HIV on HAART b/l lower extremity amputation came as catheter was almost dislodged and she was having low sugar Denies chest pain, palpitation, shortness of breath, leg swelling she is on HD x [address] Falk @ [facility] ROS: denies any other complaints. sugar better on D5 drip. no SOB/chest pain All other negative. Physical Examination: General Appearance: Comfortable, in no acute respiratory distress, co-operative . Vitals reviewed and noted as below Head; Atraumatic, normocephalic ENT: no ulcers no thrush. Tongue is midline. Oropharynx: no rash or ulcers. EYES: Rt Pupil round and reactive to light accommodation. Eye muscles and extraocular movement intact. Sclera is anicteric. left pupil opacified Neck; supple no lymphadenopathy, no thyromegaly or bruit Lungs: Normal respiratory rate/effort. Breath sounds bilateral equal and clear Heart: Normal rate. s1s2 normal. No rub or gallop. Extremities: no edema. No varicose veins. has Rt BKA and left leg amputation Neurological: Patient is alert, awake and oriented to person, place and time. No focal deficit. Strength bilateral appropriate and equal Skin: Warm and dry. Normal turgor. No rash. Palpitation: Normal elasticity for age Abdomen: Abdomen is soft. Bowel sounds +. There is no abdominal tenderness, no guarding/rigidity or organomegaly Psych: normal insight and normal affect/mood MSK: no joint tenderness or swelling. Digits and nails normal, no deformity : kidney or bladder not palpable Access: none Labs/imaging reviewed. Past medical history, past surgical history, family history, social history, al lergy reviewed and noted as below Family Hx: no hx of CKD. Non contributory Objective - Vital Signs/Intake and Output Vital Signs (last 24 hours): Temp Pulse Resp BP Pulse Ox 97 F L 73 13 132/58 L 100 07/16/18 16:15 07/16/18 16:15 07/16/18 16:15 07/16/18 16:15 07/16/18 16:15 Intake and Output: 07/16/18 07/16/18 06:59 18:59 Intake Total 820 870 Balance 820 870 - Medications Medications: Current Medications Acetaminophen (Tylenol 325mg Tab) 650 mg PO Q6 PRN PRN Reason: Fever >100.4 F Docusate Sodium (Colace) 100 mg PO BID [facility] Last Admin: 07/16/18 11:35 Dose: Not Given Duloxetine HCl (Cymbalta) 30 mg PO DAILY [facility] Last Admin: 07/16/18 11:35 Dose: Not Given Emtricitabine/Tenofovir (Truvada 200 Mg-300 Mg) 1 tab PO Q48H [facility]; Protocol Last Admin: 07/15/18 12:30 Dose: Not Given Gabapentin (Neurontin) 100 mg PO TID [facility] Last Admin: 07/16/18 14:39 Dose: Not Given Heparin Sodium (Porcine) (Heparin) 5,000 units SC Q8 [facility] Last Admin: 07/16/18 14:38 Dose: Not Given Heparin Sodium (Porcine) (Heparin) 2,000 units IVP MWF [facility] Last Admin: 07/16/18 16:17 Dose: 2,000 units Hydromorphone HCl (Dilaudid) 0.5 mg IVP Q5M PRN PRN Reason: Pain, severe (8-10) Stop: 07/16/18 17:08 Last Admin: 07/16/18 15:30 Dose: 0.5 mg Dextrose (Dextrose 10% In Water) 1,000 mls @ 40 mls/hr IV .Q24H [facility] Last Admin: 07/16/18 11:45 Dose: 40 mls/hr Insulin Human Regular (Novolin R) 0 unit SC ACHS [facility]; Protocol Last Admin: 07/16/18 11:38 Dose: Not Given Prochlorperazine (Compazine Rectal Supp) 25 mg RC BID PRN PRN Reason: Nausea/Vomiting Sevelamer Carbonate (Renvela) 800 mg PO TID [facility] Last Admin: 07/16/18 14:39 Dose: Not Given Trimethoprim/Sulfamethoxazole (Bactrim Ds Tab) 1 tab PO [facility]; Protocol Last Admin: 07/16/18 11:35 Dose: Not Given Vitamin B Complex/Vit C/Folic Acid (Nephro-Carlos) 1 tab PO DAILY [facility] Last Admin: 07/16/18 11:36 Dose: Not Given - Labs Labs: 07/16/18 14:14 07/16/18 14:14 PT 10.6 SECONDS (9.7-12.2) 07/15/18 07:47 INR 1.0 07/15/18 07:47 APTT 41 SECONDS (21-34) H D 07/15/18 07:47
--- NOTE | 2018-07-17 13:50 | CP.PCM.PN ---
Subjective - Date & Time of Evaluation Date of Evaluation: 07/17/18 Time of Evaluation: 11:00 - Subjective Subjective: Nephrology Consultation Note: Assessment: Stable dialysis access dysfunction, hypoglycemia Diabetic chronic Kidney Disease (E11.22) Hypertensive Chronic Kidney Disease (I12.0) End stage renal disease (N18.6) dependence on hemodialysis (Z99.2) (MWF) via catheter Anemia (D64.9), Hyperphosphatemia (E83.39), Secondary Hyperparathyroidism (E21.1), HTN (I12.0) HIV on HAART Plan: for HD tomorrow as MWF schedule. tolerated HD yesterday well continue with Nephrovite 1 tab/day. PRBC as needed for anemia. not On KEESHA last Hb 12 Continue with phos binders home dose, last phos level 6 BP control with meds as ordered. Patient not on RAAS leatha but may add if BP high Glycemic control, Dialysis consistent diet Further work up/management as per primary team Dose meds/antibiotics (if needed) for ESRD status. Avoid fleets enema/magnesium based laxatives. d/c plan. pt stable from renal perspective appreciate IR and vascular input Thanks for allowing me to participate in care of your patient. Will follow patient with you. Please call if any Qs. had d/w team Dr Antolin Dominguez Office: [phone] Chief Complaint; low sugar HPI: Pt is a 58 y/o F with hx of ESRD on hemodialysis (MWF) via PC, chronic anemia, hyperphosphatemia, secondary hyperparathyroidism, Diabetes Mellitus, hypertension, HIV on HAART b/l lower extremity amputation came as catheter was almost dislodged and she was having low sugar Denies chest pain, palpitation, shortness of breath, leg swelling she is on HD x [address] Falk @ [facility] ROS: denies any other complaints. sugar better on D5 drip. no SOB/chest pain All other negative. Physical Examination: General Appearance: Comfortable, in no acute respiratory distress, co-operative . Vitals reviewed and noted as below Head; Atraumatic, normocephalic ENT: no ulcers no thrush. Tongue is midline. Oropharynx: no rash or ulcers. EYES: Rt Pupil round and reactive to light accommodation. Eye muscles and extraocular movement intact. Sclera is anicteric. left pupil opacified Neck; supple no lymphadenopathy, no thyromegaly or bruit Lungs: Normal respiratory rate/effort. Breath sounds bilateral equal and clear Heart: Normal rate. s1s2 normal. No rub or gallop. Extremities: no edema. No varicose veins. has Rt BKA and left leg amputation Neurological: Patient is alert, awake and oriented to person, place and time. No focal deficit. Strength bilateral appropriate and equal Skin: Warm and dry. Normal turgor. No rash. Palpitation: Normal elasticity for age Abdomen: Abdomen is soft. Bowel sounds +. There is no abdominal tenderness, no guarding/rigidity or organomegaly Psych: normal insight and normal affect/mood MSK: no joint tenderness or swelling. Digits and nails normal, no deformity : kidney or bladder not palpable Access: RUQ transhepatic pc Labs/imaging reviewed. Past medical history, past surgical history, family history, social history, allergy reviewed and noted as below Family Hx: no hx of CKD. Non contributory Objective - Vital Signs/Intake and Output Vital Signs (last 24 hours): Temp Pulse Resp BP Pulse Ox 99.3 F 84 20 111/71 100 07/17/18 08:50 07/17/18 08:50 07/17/18 08:50 07/17/18 08:50 07/17/18 08:50 Intake and Output: 07/17/18 07/17/18 06:59 18:59 Intake Total 250 Balance 250 - Medications Medications: Current Medications Acetaminophen (Tylenol 325mg Tab) 650 mg PO Q6 PRN PRN Reason: Fever >100.4 F Docusate Sodium (Colace) 100 mg PO BID [facility] Last Admin: 07/17/18 09:21 Dose: 100 mg Duloxetine HCl (Cymbalta) 30 mg PO DAILY [facility] Last Admin: 07/17/18 09:21 Dose: 30 mg Emtricitabine/Tenofovir (Truvada 200 Mg-300 Mg) 1 tab PO Q48H [facility]; Protocol Last Admin: 07/17/18 12:39 Dose: 1 tab Gabapentin (Neurontin) 100 mg PO TID [facility] Last Admin: 07/17/18 13:31 Dose: 100 mg Heparin Sodium (Porcine) (Heparin) 5,000 units SC Q8 [facility] Last Admin: 07/17/18 13:31 Dose: 5,000 units Heparin Sodium (Porcine) (Heparin) 2,000 units IVP [facility] Last Admin: 07/16/18 16:17 Dose: 2,000 units Heparin Sodium (Porcine) (Heparin) 3,700 units IVP [facility] Last Admin: 07/16/18 18:26 Dose: 3,700 units Insulin Human Regular (Novolin R) 0 unit SC ACHS [facility]; Protocol Last Admin: 07/17/18 12:40 Dose: 1 unit Prochlorperazine (Compazine Rectal Supp) 25 mg RC BID PRN PRN Reason: Nausea/Vomiting Sevelamer Carbonate (Renvela) 800 mg PO TID [facility] Last Admin: 07/17/18 13:31 Dose: 800 mg Trimethoprim/Sulfamethoxazole (Bactrim Ds Tab) 1 tab PO [facility]; Protocol Last Admin: 07/16/18 11:35 Dose: Not Given Vitamin B Complex/Vit C/Folic Acid (Nephro-Carlos) 1 tab PO DAILY [facility] Last Admin: 07/17/18 09:25 Dose: 1 tab - Labs Labs: 07/16/18 14:14 07/16/18 14:14 PT 10.6 SECONDS (9.7-12.2) 07/15/18 07:47 INR 1.0 07/15/18 07:47 APTT 41 SECONDS (21-34) H D 07/15/18 07:47
[2018-07-17 16:05] VITALS: BP 135/72; PULSE 88; O2SAT 96
--- NOTE | 2018-07-17 16:50 | CP.PCM.PN ---
Subjective - Date & Time of Evaluation Date of Evaluation: 07/17/18 Time of Evaluation: 11:35 - Subjective Subjective: Patient seen today, denies any complaints a febrile s/pTranshepatic HD catheter placement, and patient received HD yesterday Objective - Vital Signs/Intake and Output Vital Signs (last 24 hours): Temp Pulse Resp BP Pulse Ox 101.0 F H 88 20 135/72 96 07/17/18 15:30 07/17/18 15:30 07/17/18 15:30 07/17/18 15:30 07/17/18 15:30 Intake and Output: 07/17/18 07/17/18 06:59 18:59 Intake Total 250 610 Balance 250 610 - Medications Medications: Current Medications Acetaminophen (Tylenol 325mg Tab) 650 mg PO Q6 PRN PRN Reason: Fever >100.4 F Docusate Sodium (Colace) 100 mg PO BID [facility] Last Admin: 07/17/18 09:21 Dose: 100 mg Duloxetine HCl (Cymbalta) 30 mg PO DAILY [facility] Last Admin: 07/17/18 09:21 Dose: 30 mg Emtricitabine/Tenofovir (Truvada 200 Mg-300 Mg) 1 tab PO Q48H [facility]; Protocol Last Admin: 07/17/18 12:39 Dose: 1 tab Gabapentin (Neurontin) 100 mg PO TID [facility] Last Admin: 07/17/18 13:31 Dose: 100 mg Heparin Sodium (Porcine) (Heparin) 5,000 units SC Q8 [facility] Last Admin: 07/17/18 13:31 Dose: 5,000 units Heparin Sodium (Porcine) (Heparin) 2,000 units IVP MWF [facility] Last Admin: 07/16/18 16:17 Dose: 2,000 units Heparin Sodium (Porcine) (Heparin) 3,700 units IVP MWF [facility] Last Admin: 07/16/18 18:26 Dose: 3,700 units Insulin Human Regular (Novolin R) 0 unit SC ACHS [facility]; Protocol Last Admin: 07/17/18 12:40 Dose: 1 unit Prochlorperazine (Compazine Rectal Supp) 25 mg RC BID PRN PRN Reason: Nausea/Vomiting Sevelamer Carbonate (Renvela) 800 mg PO TID [facility] Last Admin: 07/17/18 13:31 Dose: 800 mg Trimethoprim/Sulfamethoxazole (Bactrim Ds Tab) 1 tab PO MWF [facility]; Protocol Last Admin: 07/16/18 11:35 Dose: Not Given Vitamin B Complex/Vit C/Folic Acid (Nephro-Carlos) 1 tab PO DAILY [facility] Last Admin: 07/17/18 09:25 Dose: 1 tab - Labs Labs: 07/16/18 14:14 07/16/18 14:14 PT 10.6 SECONDS (9.7-12.2) 07/15/18 07:47 INR 1.0 07/15/18 07:47 APTT 41 SECONDS (21-34) H D 07/15/18 07:47 Assessment and Plan - Assessment and Plan (Free Text) Assessment: A/P 58 yr old female with PMH HIV, PAD, HTN, HLD, ESRD ON HD MWF)and poorly controlled DM admitted with hypoglycemia and no cath for HD s/p s/pTranshepatic HD catheter placement and patietn received HD yesterday BS - stable D/W Dr. Dominguez , stable for discharge from nephrology standpoint and [place] [facility] [place] D//w Dr. Hernandez , cleared for discharge home today Patient instructed not to take blood sugar pills any more
[2018-07-17 18:35] VITALS: TEMP 99.6
--- NOTE | 2018-07-17 22:25 | CP.PCM.DIS ---
Provider - Provider Date of Admission: 07/16/18 17:39 Attending physician: Kiran Hernandez MD Consults: 07/14/18 18:26 Physician Consult Stat Comment: Consulting Provider: Antolin Dominguez Consulting Physician: Antolin Dominguez Reason for Consult: ESRD on HD Physician Consult Stat Comment: Consulting Provider: Aden Sinclair Jr. Consulting Physician: Aden Sinclair Jr. Reason for Consult: dialysis cath displacement 07/15/18 15:44 Radiology Consult Routine Comment: Consulting Provider: Baron Kelly Consulting Physician: Baron Kelly Reason for Consult: [facility] Course - Lab Results Lab Results: Micro Results 07/14/18 17:30 Blood Blood Culture - Preliminary NO GROWTH AFTER 3 DAYS 07/14/18 16:00 Blood Blood Culture - Preliminary NO GROWTH AFTER 3 DAYS Most Recent Lab Values WBC 3.0 K/uL (4.8-10.8) L 07/16/18 14:14 RBC 3.29 Mil/uL (3.80-5.20) L 07/16/18 14:14 Hgb 11.0 g/dL (11.0-16.0) 07/16/18 14:14 Hct 33.3 % (34.0-47.0) L 07/16/18 14:14 MCV 101.4 fL (81.0-99.0) H 07/16/18 14:14 MCH 33.6 pg (27.0-31.0) H 07/16/18 14:14 MCHC 33.1 g/dL (33.0-37.0) 07/16/18 14:14 RDW 17.4 % (11.5-14.5) H 07/16/18 14:14 Plt Count 141 K/uL (130-400) 07/16/18 14:14 MPV 9.1 fL (7.2-11.7) 07/16/18 14:14 Neut % (Auto) 55.0 % (50.0-75.0) 07/15/18 07:47 Lymph % (Auto) 36.2 % (20.0-40.0) 07/15/18 07:47 Fulton % (Auto) 4.2 % (0.0-10.0) 07/15/18 07:47 Eos % (Auto) 3.6 % (0.0-4.0) 07/15/18 07:47 Baso % (Auto) 1.0 % (0.0-2.0) 07/15/18 07:47 Neut # (Auto) 1.5 K/uL (1.8-7.0) L 07/15/18 07:47 Lymph # (Auto) 1.0 K/uL (1.0-4.3) 07/15/18 07:47 Fulton # (Auto) 0.1 K/uL (0.0-0.8) 07/15/18 07:47 Eos # (Auto) 0.1 K/uL (0.0-0.7) 07/15/18 07:47 Baso # (Auto) 0.0 K/uL (0.0-0.2) 07/15/18 07:47 PT 10.6 SECONDS (9.7-12.2) 07/15/18 07:47 INR 1.0 07/15/18 07:47 APTT 41 SECONDS (21-34) H D 07/15/18 07:47 Puncture Site Venous 07/14/18 17:31 pCO2 50 mm/Hg (35-45) H 07/14/18 17:31 pO2 37 mm/Hg (80-100) L* 07/14/18 17:31 HCO3 19.5 mmol/L (21-28) L 07/14/18 17:31 ABG pH 7.25 (7.35-7.45) L 07/14/18 17:31 ABG Total CO2 23.4 mmol/L (22-28) 07/14/18 17:31 ABG O2 Saturation 66.3 % (95-98) L 07/14/18 17:31 ABG Base Excess -5.6 mmol/L (-2.0-3.0) L 07/14/18 17:31 Sedrick Test Na 07/14/18 17:31 ABG Potassium 4.5 mmol/L (3.6-5.2) 07/14/18 17:31 Sodium 140.0 mmol/l (132-148) 07/14/18 17:31 Chloride 108.0 mmol/L (98-107) H 07/14/18 17:31 Glucose 63 mg/dl (65-105) L 07/14/18 17:31 Lactate 1.8 mmol/L (0.7-2.1) 07/14/18 17:31 Sodium 138 mmol/L (132-148) 07/16/18 14:14 Potassium 4.7 mmol/L (3.6-5.2) 07/16/18 14:14 Chloride 99 mmol/L (98-107) 07/16/18 14:14 Carbon Dioxide 21 mmol/L (22-30) L 07/16/18 14:14 Anion Gap 22 (10-20) H 07/16/18 14:14 BUN 71 mg/dL (7-17) H 07/16/18 14:14 Creatinine 8.2 mg/dL (0.7-1.2) H* 07/16/18 14:14 Est GFR ( Amer) 6 07/16/18 14:14 Est GFR (Non-Af Amer) 5 07/16/18 14:14 POC Glucose (mg/dL) 121 mg/dL (65-110) H 07/17/18 16:13 Random Glucose 87 mg/dL (65-105) D 07/16/18 14:14 Hemoglobin A1c 5.2 % (4.2-6.5) 07/15/18 10:00 Calcium 8.2 mg/dl (8.6-10.4) L 07/16/18 14:14 Phosphorus 6.6 mg/dL (2.5-4.5) H 07/16/18 14:14 Magnesium 2.3 mg/dL (1.6-2.3) 07/16/18 14:14 Total Bilirubin 0.4 mg/dL (0.2-1.3) 07/16/18 14:14 AST 32 U/L (14-36) 07/16/18 14:14 ALT 14 U/L (9-52) 07/16/18 14:14 Alkaline Phosphatase 192 U/L (38-126) H 07/16/18 14:14 Troponin I 0.0200 ng/mL (0.00-0.120) 07/14/18 17:40 Total Protein 7.2 g/dL (6.3-8.3) 07/16/18 14:14 Albumin 3.8 g/dL (3.5-5.0) 07/16/18 14:14 Globulin 3.4 gm/dL (2.2-3.9) 07/16/18 14:14 Albumin/Globulin Ratio 1.1 (1.0-2.1) 07/16/18 14:14 Lipase 82 U/L (23-300) 07/14/18 17:40 Arterial Blood Potassium 4.5 mmol/L (3.6-5.2) 07/14/18 17:31 Discharge Exam - Head Exam Head Exam: ATRAUMATIC, NORMAL INSPECTION, NORMOCEPHALIC Discharge Plan - Follow Up Plan Condition: STABLE Disposition: HOME/ ROUTINE Instructions: Diabetes Exchange Diet, Heart Failure, Adult (DC), Diabetes Diet , End Stage Kidney Disease (DC), Dialysis Catheter (DC), Dialysis and Diet Additional Instructions: Please continue HD as scheduled MWF at [facility] Please follow up with Dr. Hernandez office in 1 week PLEASE DO NOT TAKE ANY BLOOD SUGAR MEDICATIONS Referrals: Kiran Hernandez MD [Staff Provider] -
--- NOTE | 2018-07-18 08:25 | DS ---
DISCHARGE DIAGNOSES: 1. End-stage renal disease. 2. Acquired immunodeficiency syndrome. 3. Hypertension. 4. Type 2 diabetes. HISTORY OF PRESENT ILLNESS: The patient is a 58-year-old -[place]ish female with history of end-stage renal disease. She is due to be on hemodialysis. She stopped doing hemodialysis as she lost her dialysis access and the patient has been noncompliant with diet, medications, and followup. The patient does not regularly follow with any clinic. She does not see Infection Disease on a regular basis. The patient does not know her CD4 count or viral load. The patient was admitted because she started having generalized weakness, tiredness, nausea, and she was found to be uremic. She was evaluated by Vascular Surgery and then later on because of failure to obtain dialysis access, the patient underwent intervention radiology and a catheter was placed and the patient underwent hemodialysis. She is being discharged with outpatient followup. PHYSICAL EXAMINATION: VITAL SIGNS: Blood pressure 135/72, pulse 88, respiratory 20, and temperature 99.6. LUNGS: Clear. CVS: S1 and S2, regular. ABDOMEN: Soft. SKIN: Left AKA stump is clean and healed. PLAN: Discharge the patient. The patient will continue her HAART medication and she will be followed up by me in one week. CONDITION UPON DISCHARGE: Stable. Kiran Hernandez MD
== END 2018-07-17 20:55 | disposition home or self-care (01) | DRG 314 ==
LOC: C.ER 15:00 → INTOOBSV 17:50 → C.9E 17:50 → C.6T 19:03 → OBSVTOIN 07-16 17:39
PROVIDERS: ADMIT Internal Medicine; ATTEND Internal Medicine
PROC: B518ZZZ Fluoroscopy of Superior Vena Cava (ICD-10-PCS; 2018-07-15)
PROC: B517ZZZ Fluoroscopy of Left Subclavian Vein (ICD-10-PCS; 2018-07-15)
PROC: B516ZZZ Fluoroscopy of Right Subclavian Vein (ICD-10-PCS; principal; 2018-07-15 14:30)
PROC: 0JH83XZ Insertion of Tunneled Vascular Access Device into Abdomen Subcutaneous Tissue and Fascia, Percutaneous Approach (ICD-10-PCS; 2018-07-16)
PROC: 06H433Z Insertion of Infusion Device into Hepatic Vein, Percutaneous Approach (ICD-10-PCS; 2018-07-16)
PROC: 02HV33Z Insertion of Infusion Device into Superior Vena Cava, Percutaneous Approach (ICD-10-PCS; 2018-07-16)
PROC: B51 Imaging, Veins, Fluoroscopy (ICD-10-PCS; 2018-07-16)
PROC: B518ZZA Fluoroscopy of Superior Vena Cava, Guidance (ICD-10-PCS; 2018-07-16)
PROC: BF45ZZZ Ultrasonography of Liver (ICD-10-PCS; 2018-07-16)
PROC: 5A1D70Z Performance of Urinary Filtration, Intermittent, Less than 6 Hours Per Day (ICD-10-PCS; 2018-07-16)
DX: T82.41XA Breakdown (mechanical) of vascular dialysis catheter, initial encounter (principal); N18.6 End stage renal disease; I82.220 Acute embolism and thrombosis of inferior vena cava; B20 Human immunodeficiency virus [HIV] disease; I13.2 Hypertensive heart and chronic kidney disease with heart failure and with stage 5 chronic kidney disease, or end stage renal disease; E11.22 Type 2 diabetes mellitus with diabetic chronic kidney disease; N25.81 Secondary hyperparathyroidism of renal origin; E11.65 Type 2 diabetes mellitus with hyperglycemia; E11.51 Type 2 diabetes mellitus with diabetic peripheral angiopathy without gangrene; D64.9 Anemia, unspecified; E83.39 Other disorders of phosphorus metabolism; E03.9 Hypothyroidism, unspecified; E11.21 Type 2 diabetes mellitus with diabetic nephropathy; E11.649 Type 2 diabetes mellitus with hypoglycemia without coma; E78.5 Hyperlipidemia, unspecified; F03.90 Unspecified dementia, unspecified severity, without behavioral disturbance, psychotic disturbance, mood disturbance, and anxiety; E21.1 Secondary hyperparathyroidism, not elsewhere classified; I50.9 Heart failure, unspecified; Y71.2 Prosthetic and other implants, materials and accessory cardiovascular devices associated with adverse incidents; H40.9 Unspecified glaucoma; Z89.511 Acquired absence of right leg below knee; Z87.891 Personal history of nicotine dependence; Z79.4 Long term (current) use of insulin; Z79.899 Other long term (current) drug therapy; Z99.2 Dependence on renal dialysis; Z91.11 Patient's noncompliance with dietary regimen; Z90.49 Acquired absence of other specified parts of digestive tract; Z91.14 Patient's other noncompliance with medication regimen; Z89.612 Acquired absence of left leg above knee

== ENCOUNTER 2018-11-11 19:09 | Inpatient (IN) | payer MEDICARE, OTHER ==
[2018-11-11 19:09] VITALS: BMI 40.5
[2018-11-11] MEDS ORDERED: Tramadol 25 mg PO STA (19:51)
[2018-11-11 23:02] LABS: BASO % 0.7 % (0.0-2.0); EOS % 0.4 % (0.0-4.0); LYMPH # 0.9 K/uL (1.0-4.3); LYMPH % 15.2 % (20.0-40.0); MEAN CELL VOLUME 95.9 fL (81.0-99.0); MEAN CORPUSCULAR HEMOGLOBIN 30.7 pg (27.0-31.0); MEAN PLATELET VOLUME 8.6 fL (7.2-11.7); MONO # 0.3 K/uL (0.0-0.8); MONO % 4.7 % (0.0-10.0); NEUT # 4.9 K/uL (1.8-7.0); NRBC % 0.1 % (0.0-2.0); RBC 5.13 Mil/uL (3.80-5.20); WHITE BLOOD COUNT 6.2 K/uL (4.8-10.8)
[2018-11-11 23:04] LABS: HEMOGLOBIN 15.7 g/dL (11.0-16.0)
[2018-11-11] MEDS ORDERED: Emtricitabine-Tenofovir 200 mg-300 mg Tab PO SCH (23:30)
--- NOTE | 2018-11-12 00:29 | C.PDOC ---
History Of Present Illness 58 year old female presents via EMS for right shoulder pain. Patient was at home reaching out to grab something while in her wheelchair when she fell and all her body weight went onto the right side causing her to land on her right shoulder. Since then patient has not been able to move the right arm. She has Hx of ESRD on hemodialysis, diabetes, and bilateral knee amputation. Denies weakness, numbness, head injury, or other injury. Time Seen by Provider: 11/11/18 19:40 Chief Complaint (Nursing): Upper Extremity Problem/Injury History Per: Patient History/Exam Limitations: no limitations Onset/Duration Of Symptoms: Hrs Current Symptoms Are (Timing): Still Present Exacerbating Factor(s): Movement Recent travel outside of the [place]: No Past Medical History Reviewed: Historical Data, Nursing Documentation, Vital Signs Vital Signs: Last Vital Signs Temp 98.0 F 11/11/18 19:28 Pulse 78 11/11/18 23:16 Resp 20 11/11/18 23:16 BP 148/78 11/11/18 23:16 Pulse Ox 97 11/11/18 23:16 - Medical History PMH: Anxiety, CHF, Dementia, Diabetes, HIV, HTN, Hyperthyroidism, Hypothyroidism, End Stage Renal Disease, Chronic Kidney Disease Denies: Kidney Stones Surgical History: Cholecystectomy - [facility] Procedures (07/16/18) CENTRAL VENOUS CATHETER PLACEMENT WITH GUIDANCE (09/12/13) DETACHMENT AT LEFT LOWER LEG, HIGH, OPEN APPROACH (01/22/18) DETACHMENT AT LEFT UPPER LEG, HIGH, OPEN APPROACH (12/30/17) DILATION OF L FEM ART WITH DRUG-ELUT INTRA, PERC APPROACH (11/28/17) DILATION OF L FEM ART WITH INTRALUM DEV, PERC APPROACH (05/28/17) DILATION OF LEFT ANTERIOR TIBIAL ARTERY, PERC APPROACH (11/28/17) EXCISION OF LEFT FOOT SKIN, EXTERNAL APPROACH (05/28/17) EXTIRPATION OF MATTER FROM L FEM ART, PERC APPROACH (11/28/17) EXTIRPATION OF MATTER FROM L POPL ART, PERC APPROACH (11/28/17) FLUOROSCOPY OF AORTA, BI LE ART USING OTH CONTRAST (05/28/17) FLUOROSCOPY OF LEFT SUBCLAVIAN VEIN (07/16/18) FLUOROSCOPY OF PORTAL AND SPLANCHNIC VEINS, GUIDANCE (07/16/18) FLUOROSCOPY OF RIGHT HEART USING LOW OSMOLAR CONTRAST (05/25/16) FLUOROSCOPY OF RIGHT SUBCLAVIAN VEIN (07/16/18) FLUOROSCOPY OF SUPERIOR VENA CAVA (07/16/18) FLUOROSCOPY OF SUPERIOR VENA CAVA, GUIDANCE (07/16/18) HEMODIALYSIS (08/26/14) IMMOBILIZATION OF RIGHT LOWER EXTREMITY USING CAST (05/25/16) IMMOBILIZATION OF RIGHT UPPER LEG USING SPLINT (05/25/16) INSERTION OF INFUSION DEV INTO HEPATIC VEIN, PERC APPROACH (07/16/18) INSERTION OF INFUSION DEV INTO INF VENA CAVA, PERC APPROACH (04/02/16) INSERTION OF INFUSION DEV INTO R INNOM VEIN, PERC APPROACH (05/28/17) INSERTION OF INFUSION DEV INTO SUP VENA CAVA, PERC APPROACH (07/16/18) INSERTION OF INFUSION DEVICE INTO R ATRIUM, PERC APPROACH (06/19/17) INSERTION OF VAD INTO ABD SUBCU/FASCIA, PERC APPROACH (07/16/18) PERFORMANCE OF URINARY FILTRATION, MULTIPLE (05/25/16) PERFORMANCE OF URINARY FILTRATION, SINGLE (02/03/17) REMOVAL OF INFUSION DEVICE FROM GREAT VESSEL, PERC APPROACH (01/22/18) REMOVAL OF INFUSION DEVICE FROM LOWER VEIN, PERC APPROACH (04/02/16) REMOVAL OF INFUSION DEVICE FROM UPPER VEIN, PERC APPROACH (12/05/17) REPOSITION RIGHT LOWER FEMUR, EXTERNAL APPROACH (05/25/16) TRANSFUSE NONAUT RED BLOOD CELLS IN PERIPH VEIN, PERC (05/25/16) ULTRASONOGRAPHY OF LIVER (07/16/18) ULTRASONOGRAPHY OF RIGHT SUBCLAVIAN VEIN, GUIDANCE (06/19/17) Family History: States: Unknown Family Hx - Social History Hx Tobacco Use: Yes (former smoker) Hx Alcohol Use: No Hx Substance Use: No - Immunization History Hx Tetanus Toxoid Vaccination: Yes Hx Influenza Vaccination: Yes Hx Pneumococcal Vaccination: No Review Of Systems Cardiovascular: Negative for: Chest Pain, Palpitations Respiratory: Negative for: Cough, Shortness of Breath Musculoskeletal: Positive for: Shoulder Pain (Right) Neurological: Negative for: Weakness, Numbness Physical Exam - Physical Exam Appears: Non-toxic Skin: Normal Color, Warm Head: Atraumatic, Normacephalic Eye(s): bilateral: Normal Inspection Chest: Symmetrical, No Tenderness (Clavicular) Cardiovascular: Rhythm Regular Respiratory: Normal Breath Sounds, No Rales, No Rhonchi, No Wheezing Gastrointestinal/Abdominal: Soft, No Tenderness Back: No Vertebral Tenderness, No Paraspinal Tenderness Extremity: No Normal ROM (unable to move Rt shoulder), Tenderness (right shoulder ), Other (Limited ROM of right upper extremity secondary to pain. Chronic appearing hyperpigmentation to bilateral hands, right more than left. Bilateral knee amputations. .) Pulses: Left Radial: Normal, Right Radial: Normal Neurological/Psych: Oriented x3, Normal Speech ED Course And Treatment - Laboratory Results Result Diagrams: 11/11/18 22:49 O2 Sat by Pulse Oximetry: 97 (Room air) Pulse Ox Interpretation: Normal - Other Rad Right shoulder x-ray X-Ray: Interpreted by Me, Viewed By Me Interpretation: Humeral head fracture with dislocation. Right elbow x-ray X-Ray: Interpreted by Me, Viewed By Me Interpretation: No acute fracture or dislocation. Progress Note: X-ray showed positive humeral head fracture and dislocation. Dis cussed with Dr. Fuentes, ortho button sewer hand, who requests CT and to have patient follow up at his office. Patient received morphine IM. Patient unable to lay down for CT due to pain and states she cannot use her wheelchair due to the pain and is due for dialysis tomorrow. Case discussed with Dr. Armstrong who accepts patient to her service for pain management. Labs attempted and CBC resulted but CMP grossly hemolyzed. Dr Armstrong made aware of this. Pt placed in a sling by RN. Ortho consult for Dr Fuentes Disposition - Disposition Disposition: HOSPITALIZED Disposition Time: 23:40 Condition: STABLE - Clinical Impression Clinical Impression: ESRD (end stage renal disease), Fracture, humerus, head, Intractable pain - PA / COOK CHIEF / Resident Statement MD/DO has reviewed & agrees with the documentation as recorded. - Scribe Statement The provider has reviewed the documentation as recorded by the Scribe Tripp Nowak All medical record entries made by the Philomenaibbebo were at my direction and personally dictated by me. I have reviewed the chart and agree that the record accurately reflects my personal performance of the history, physical exam, medical decision making, and the department course for this patient. I have also personally directed, reviewed, and agree with the discharge instructions and disposition.
[2018-11-12] MEDS ORDERED: (Novolin R) Insulin Human Regular 100 units/ml vial SC SCH (07:30)
--- NOTE | 2018-11-12 08:07 | RAD ---
Right shoulder three views HISTORY: Fall. COMPARISON: None available. FINDINGS: Markedly limited study given suboptimal patient positioning and technique. Prominent fracture deformity at the humeral head neck junction with 1.7 centimeter medial distraction of the distal humeral fracture. Humeral head is only well visualized on 1 image, limiting evaluation for location. Correlation with CT scan may be helpful if clinically indicated. Right axillary stent in place. Venous congestion with patchy increased markings at the right lung base. Bilateral hilar prominence. Cardiomegaly. Tubing projects over the right rosie abdomen. Surgical clips in the right upper abdomen. Impression: Prominent distracted fracture at the right proximal humerus at the head neck junction. Correlation with CT scan may be helpful if clinically indicated.
--- NOTE | 2018-11-12 08:25 | CP.PCM.CON ---
History of Present Illness - History of Present Illness History of Present Illness: Orthopedic consultation Dr. Fuentes 58F complains of right shoulder pain after fall from wheelchair yesterday. RHD. Non ambulatory with B AKA. Denies pain in other extremities. Denies head/neck/back pain. Denies numbness/tingling. Denies CP/SOB/dizziness/n/v. PMH: ESRD on HD MWF, DM, HTN, PVD, HIV (last CD4 here 01/2018 69) NKDA Review of Systems - Review of Systems All systems: reviewed and no additional remarkable complaints except - Musculoskeletal Musculoskeletal: As Per HPI Past Patient History - Infectious Disease Hx of Infectious Diseases: None - Past Medical History & Family History Past Medical History?: Yes Past Family History: Reviewed and not pertinent - Past Social History Smoking Status: Former Smoker - CARDIAC Hx Congestive Heart Failure: Yes Hx Hypertension: Yes - PULMONARY Hx Respiratory Disorders: No - NEUROLOGICAL Hx Dementia: Yes - HEENT Hx HEENT Problems: Yes (wears glasses) Hx Glaucoma: Yes - RENAL Hx Chronic Kidney Disease: Yes Hx Kidney Stones: No - ENDOCRINE/METABOLIC Hx Hyperthyroidism: Yes Hx Hypothyroidism: Yes - HEMATOLOGICAL/ONCOLOGICAL Hx Human Immunodeficiency Virus (HIV): Yes - INTEGUMENTARY Hx Dermatological Problems: No - MUSCULOSKELETAL/RHEUMATOLOGICAL Hx Falls: Yes - GASTROINTESTINAL Hx Gastrointestinal Disorders: No - GENITOURINARY/GYNECOLOGICAL Hx Genitourinary Disorders: Yes Other/Comment: oliguria, on hemodialysis MWF - PSYCHIATRIC Hx Anxiety: Yes Hx Substance Use: No - SURGICAL HISTORY Hx Cholecystectomy: Yes - ANESTHESIA Hx Anesthesia: Yes Hx Anesthesia Reactions: No Hx Malignant Hyperthermia: No Meds Allergies/Adverse Reactions: Allergies Allergy/AdvReac Type Severity Reaction Status Date / Time No Known Allergies Allergy Verified 11/11/18 19:31 - Medications Medications: Current Medications Alprazolam (Xanax) 0.25 mg PO HS KTAARINA Stop: 11/19/18 22:01 Emtricitabine/Tenofovir (Truvada 200 Mg-300 Mg) 1 tab PO Q48H KATARINA; Protocol Famotidine (Pepcid) 20 mg PO HS KATARINA Heparin Sodium (Porcine) (Heparin) 5,000 units SC Q12 KAT[facility]INA Insulin Human Regular (Novolin R) 1 unit SC ACHS [facility]; Protocol Last Admin: 11/12/18 07:29 Dose: Not Given Metoprolol Tartrate (Lopressor) 25 mg PO BID KATARINA Morphine Sulfate (Morphine) 2 mg IM Q6 PRN PRN Reason: Pain, moderate (4-7) Physical Exam - Constitutional Appears: No Acute Distress - Head Exam Head Exam: ATRAUMATIC - Neck Exam Neck exam: Positive for: Full Rom, Normal Inspection - Respiratory Exam Respiratory Exam: NORMAL BREATHING PATTERN - Extremities Exam Additional comments: TTP to shoulder and scapula, generalized right sided rib tenderness - Expanded Upper Extremities Exam Right Shoulder exam: swelling, tenderness Elbow exam: normal inspection (non tender to elbow) Neuro motor exam: finger 2-5 abduction intact, thumb abduction, thumb IP flexion intact, thumb opposition intact, wrist extension intact Neurosensory exam: median nerve intact, radial nerve intact, ulnar nerve intact Vascular exam: radial pulse, normal capillary refill - Neurological Exam Neurological exam: Alert, Oriented x3 - Psychiatric Exam Psychiatric exam: Normal Affect, Normal Mood - Skin Skin Exam: Dry, Intact, Normal Color, Warm Results - Vital Signs Recent Vital Signs: Last Vital Signs Temp 97.5 F L 11/12/18 07:00 Pulse 62 11/12/18 07:00 Resp 20 11/12/18 07:00 BP 148/76 11/12/18 07:00 Pulse Ox 100 11/12/18 07:00 - Labs Result Diagrams: 11/11/18 22:49 Labs: Laboratory Results - last 24 hr 11/11/18 11/11/18 11/12/18 22:49 23:32 06:30 WBC 6.2 D RBC 5.13 Hgb 15.7 D Hct 49.1 H MCV 95.9 D MCH 30.7 MCHC 32.0 L RDW 20.0 H Plt Count 153 MPV 8.6 Neut % (Auto) 79.0 H Lymph % (Auto) 15.2 L [place] % (Auto) 4.7 Eos % (Auto) 0.4 Baso % (Auto) 0.7 Neut # (Auto) 4.9 Lymph # (Auto) 0.9 L [place] # (Auto) 0.3 Eos # (Auto) 0.0 Baso # (Auto) 0.0 POC Glucose (mg/dL) 139 H 130 H - Impressions Impression: atient Name / ID : JC CRAFT María / [id number] Exam Date : 11/11/2018 19:58:57 ( Approved ) Study Comment : Sex / Age : F / 58Y Creator : Denilson Hoyt MD Dictator : Denilson Hoyt MD Cushion Padder : Public Health Clinical Nurse Specialist : Denilson Hoyt MD Approver2 : Report Date : 11/12/2018 08:04:21 My Comment : Right shoulder three views HISTORY: Fall. COMPARISON: None available. FINDINGS: Markedly limited study given suboptimal patient positioning and technique. Prominent fracture deformity at the humeral head neck junction with 1.7 centimeter medial distraction of the distal humeral fracture. Humeral head is only well visualized on 1 image, limiting evaluation for location. Correlation with CT scan may be helpful if clinically indicated. Right axillary stent in place. Venous congestion with patchy increased markings at the right lung base. Bilateral hilar prominence. Cardiomegaly. Tubing projects over the right rosie abdomen. Surgical clips in the right upper abdomen. Impression: Prominent distracted fracture at the right proximal humerus at the head neck junction. Correlation with CT scan may be helpful if clinically indicated. atient Name / ID : JC CRAFT J / [id number] Exam Date : 11/11/2018 19:58:35 ( Approved ) Study Comment : Sex / Age : Y Creator : Bailey Lyman MD Dictator : Bailey Lyman MD Cushion Padder : Public Health Clinical Nurse Specialist : Bailey Lyman MD Approver2 : Report Date : 11/12/2018 08:50:45 My Comment : Date of service: 11/11/2018 PROCEDURE: Radiographs of the right elbow. HISTORY: shoulder pain, fall COMPARISON: No prior. TECHNIQUE: 3 views obtained. FINDINGS: BONES: Examination is limited due to patient positioning. Allowing for this, bone alignment and mineralization are normal. No acute displaced fracture or dislocation. JOINTS: Normal. No osteoarthritis. SOFT TISSUES: Normal. JOINT EFFUSION: None. OTHER FINDINGS: None. IMPRESSION: Limited examination due to patient positioning. Allowing for this, no acute displaced fracture or dislocation. Please note occult fractures cannot be excl uded on plain radiographs. If there is a persistent clinical concern, an MRI of the elbow may be performed for further evaluation. Assessment & Plan (1) Closed fracture of right proximal humerus Assessment and Plan: CT scan not completed as patient did not tolerate first attempt, stressed need for imaging with patient, will attempt again case d/w Dr. Fuentes, will review CT and determine plan NWB RUE with sling at this time PT/OT for ADLs/bed mobility Status: Acute
--- NOTE | 2018-11-12 08:54 | RAD ---
Date of service: 11/11/2018 PROCEDURE: Radiographs of the right elbow. HISTORY: shoulder pain, fall COMPARISON: No prior. TECHNIQUE: 3 views obtained. FINDINGS: BONES: Examination is limited due to patient positioning. Allowing for this, bone alignment and mineralization are normal. No acute displaced fracture or dislocation. JOINTS: Normal. No osteoarthritis. SOFT TISSUES: Normal. JOINT EFFUSION: None. OTHER FINDINGS: None. IMPRESSION: Limited examination due to patient positioning. Allowing for this, no acute displaced fracture or dislocation. Please note occult fractures cannot be excluded on plain radiographs. If there is a persistent clinical concern, an MRI of the elbow may be performed for further evaluation.
[2018-11-12] MEDS: Emtricitabine-Tenofovir 200 mg-300 mg Tab PO SCH (11:18)
[2018-11-12] MEDS: (Novolin R) Insulin Human Regular 100 units/ml vial SC SCH ×3 (11:52→22:12)
[2018-11-12 15:58] LABS: INR 1.1; PROTHROMBIN TIME 11.6 SECONDS (9.7-12.2)
[2018-11-12 16:10] LABS: ALBUMIN 3.7 g/dL (3.5-5.0); AST/SGOT 16 U/L (14-36); BLOOD UREA NITROGEN 43 mg/dL (7-17); CALCIUM 7.8 mg/dl (8.6-10.4); GFR NON-AFRICAN AMERICAN 6
--- NOTE | 2018-11-12 16:15 | CT ---
Date of service: 11/12/2018 PROCEDURE: CT scan of the right shoulder without contrast PROCEDURE: INDICATION: Fall TECHNIQUE: Multiple axial images were obtained with slice thickness of 2.5 mm. Coronal and sagittal reformatted images were obtained. Iterative reconstruction was used. Radiation dose: Total exam DLP = 549.75 mGy-cm. PROCEDURE: This CT exam was performed using one or more of the following dose reduction techniques: Automated exposure control, adjustment of the mA and/or kV according to patient size, and/or use of iterative reconstruction technique. COMPARISON: Plain radiographs from 11/11/2018. FINDINGS: There is an acute comminuted impacted displaced fracture in the neck of the humerus with 1 shaft with medial displacement without significant angulation. There is diffuse bone demineralization. Bone alignment is normal. The acromioclavicular and glenohumeral joints are preserved. There is severe subcutaneous edema and foci of air in the lateral subcutaneous tissues which may be related to penetrating injury. Evaluation of the periarticular muscles and tendons is limited on noncontrast CT examination IMPRESSION: Acute comminuted impacted displaced fracture in the neck of the humerus with 1 shaft with medial displacement. No evidence for dislocation. Significant surrounding subcutaneous edema. Evaluation of muscles and tendons is limited on noncontrast CT examination. Underlying muscle contusion cannot be entirely excluded.
[2018-11-12 16:16] LABS: ALT/SGPT < 6 U/L (9-52)
--- NOTE | 2018-11-12 16:18 | RAD ---
Date of service: 11/12/2018 PROCEDURE: Radiographs of the Chest and Right Ribs. HISTORY: Fall with right rib pain COMPARISON: Comparison made with chest radiograph dated 07/15/2018. Correlation also made with concurrent CT scan of the right shoulder which partially imaged the right lateral chest wall. TECHNIQUE: Frontal radiograph of the chest and multiple oblique radiographs of the right ribs were obtained. 4 views obtained. FINDINGS: RIGHT RIBS: Evaluation for rib fractures somewhat limited due to low lung volumes poor inspiration and large body habitus which partially obscures fine soft tissue and bone detail. No definitive evidence of acute left-sided displaced rib fractures identified however clinical if symptoms persist and occult fracture suspected clinically consider follow-up CT scan chest. LUNGS: There are endovascular stent grafts seen region of the right subclavian vein and left brachiocephalic vein. Right lower lobe atelectasis and small right-sided effusion. PLEURA: No obvious pneumothorax. CARDIOVASCULAR: Normal cardiac size. No pulmonary vascular congestion. No aortic atherosclerotic calcification present OTHER FINDINGS: Redemonstrated is a displaced fracture of the left humeral head/neck. Double-lumen catheter is seen overlying the right upper quadrant of the abdomen extending medially and superiorly possibly extending into the IVC. Clinical correlation recommended.. Clinical correlation recommended. Cholecystectomy clips are present. IMPRESSION: Right-sided effusion and right basilar atelectasis. Apparent in situ dialysis catheter which traverses the right upper quadrant of the abdomen and appears to terminate in the IVC. No definitive evidence of acute displaced right-sided rib fracture however given the patient's large body habitus poor inspiration and low lung volumes, evaluation somewhat limited. If symptoms persist or occult fracture suspected clinically recommend as above. Follow-up CT chest.
[2018-11-13] MEDS: (Novolin R) Insulin Human Regular 100 units/ml vial SC SCH ×4 (07:46→21:45)
--- NOTE | 2018-11-13 08:39 | CP.PCM.PN ---
Subjective - Date & Time of Evaluation Date of Evaluation: 11/13/18 Time of Evaluation: 09:24 - Subjective Subjective: Patient complaining of right shoulder pain, uncontrolled with medication. Denies numbness/tingling. No new complaints at this time. Objective - Vital Signs/Intake and Output Vital Signs (last 24 hours): Temp Pulse Resp BP Pulse Ox 98.8 F 74 20 113/73 96 11/13/18 07:05 11/13/18 07:05 11/13/18 07:05 11/13/18 07:05 11/13/18 07:05 - Medications Medications: Current Medications Alprazolam (Xanax) 0.25 mg PO HS [facility] Stop: 11/19/18 22:01 Last Admin: 11/12/18 22:49 Dose: 0.25 mg Emtricitabine/Tenofovir (Truvada 200 Mg-300 Mg) 1 tab PO Q48H [facility]; Protocol Last Admin: 11/12/18 11:18 Dose: 1 tab Famotidine (Pepcid) 20 mg PO [facility] Last Admin: 11/12/18 22:49 Dose: 20 mg Heparin Sodium (Porcine) (Heparin) 5,000 units SC Q12 [facility] Last Admin: 11/12/18 22:49 Dose: 5,000 units Heparin Sodium (Porcine) (Heparin (For Dialysis)) 3,700 units IVP MWF [facility] Last Admin: 11/12/18 17:47 Dose: 3,700 units Insulin Human Regular (Novolin R) 0 unit SC ACHS [facility]; Protocol Last Admin: 11/13/18 07:46 Dose: Not Given Metoprolol Tartrate (Lopressor) 25 mg PO BID [facility] Last Admin: 11/12/18 17:30 Dose: Not Given Morphine Sulfate (Morphine) 2 mg IM Q6 PRN PRN Reason: Pain, moderate (4-7) Last Admin: 11/12/18 14:44 Dose: 2 mg - Labs Labs: 11/11/18 22:49 11/12/18 15:46 PT 11.6 SECONDS (9.7-12.2) 11/12/18 15:46 INR 1.1 11/12/18 15:46 - Constitutional Appears: Well, No Acute Distress - Extremities Exam Additional comments: +ROM fingers/wrist, sensation intact, fingers warm - Neurological Exam Neurological Exam: Altered, Awake, Oriented x3 - Skin Skin Exam: Dry, Intact, Normal Color, Warm Additional comments: Right arm: no wounds. Healed scars to post/medial arm. No erythema. Tender near fracture, non tender to mid arm. Swelling from fracture. No mass/fluctuance. Assessment and Plan (1) Closed fracture of right proximal humerus Assessment & Plan: CT report noted, air noted in right arm not in proximity to fracture site MAR reviewed and patient received IM injection of morphine in right deltoid, this explains air seen on CT rib series negative Dr. Fuentes notified of above, states that we will attempt conservative mgmt of fracture with sling and pain medication at this time due to patient comorbidities and increased risk of complications from surgery. PT/OT orthopedically stable for discharge at this time maintain sling at all times patient can follow up in office i 1 week call for appt [phone] Status: Acute Radiology Interpretation - Radiology Interpretation #2 Interpretation: atient Name / ID : JC Daniel / [id number] Exam Date : 11/12/2018 14:03:04 ( Approved ) Study Comment : Sex / Age : F / 58Y Creator : Ollie Huston MD Dictator : Ollie Huston MD Script Supervisor : [employer] Account Executive : Ollie Huston MD Approver2 : Report Date : 11/12/2018 16:13:09 My Comment : Date of service: 11/12/2018 PROCEDURE: Radiographs of the Chest and Right Ribs. HISTORY: Fall with right rib pain COMPARISON: Comparison made with chest radiograph dated 07/15/2018. Correlation also made with concurrent CT scan of the right shoulder which partially imaged the right lateral chest wall. TECHNIQUE: Frontal radiograph of the chest and multiple oblique radiographs of the right ribs were obtained. 4 views obtained. FINDINGS: RIGHT RIBS: Evaluation for rib fractures somewhat limited due to low lung volumes poor inspiration and large body habitus which partially obscures fine soft tissue and bone detail. No definitive evidence of acute left-sided displaced rib fractures identified however clinical if symptoms persist and occult fracture suspected clinically consider follow-up CT scan chest. LUNGS: There are endovascular stent grafts seen region of the right subclavian vein and left brachiocephalic vein. Right lower lobe atelectasis and small right-sided effusion. PLEURA: No obvious pneumothorax. CARDIOVASCULAR: Normal cardiac size. No pulmonary vascular congestion. No aortic atherosclerotic calcification present OTHER FINDINGS: Redemonstrated is a displaced fracture of the left humeral head/neck. Double-lumen catheter is seen overlying the right upper quadrant of the abdomen extending medially and superiorly possibly extending into the IVC. Clinical correlation recommended.. Clinical correlation recommended. Cholecystectomy clips are present. IMPRESSION: Right-sided effusion and right basilar atelectasis. Apparent in situ dialysis catheter which traverses the right upper quadrant of the abdomen and appears to terminate in the IVC. No definitive evidence of acute displaced right-sided rib fracture however given the patient's large body habitus poor inspiration and low lung volumes, evaluation somewhat limited. If symptoms persist or occult fracture suspected clinically recommend as above. Follow-up CT chest. - Radiology Interpretation #3 Interpretation: tient Name / ID : JC Daniel / [id number] Exam Date : 11/12/2018 14:59:05 ( Approved ) Study Comment : Sex / Age : F / 58Y Creator : Marika Terrell Dictator : Bailey Lyman MD Script Supervisor : [employer] Account Executive : Bailey Lyman MD Approver2 : Report Date : 11/12/2018 15:24:06 My Comment : Date of service: 11/12/2018 PROCEDURE: CT scan of the right shoulder without contrast PROCEDURE: INDICATION: Fall TECHNIQUE: Multiple axial images were obtained with slice thickness of 2.5 mm. Coronal and sagittal reformatted images were obtained. Iterative reconstruction was used. Radiation dose: Total exam DLP = 549.75 mGy-cm. PROCEDURE: This CT exam was performed using one or more of the following dose reduction techniques: Automated exposure control, adjustment of the mA and/or kV according to patient size, and/or use of iterative reconstruction technique. COMPARISON: Plain radiographs from 11/11/2018. FINDINGS: There is an acute comminuted impacted displaced fracture in the neck of the humerus with 1 shaft with medial displacement without significant angulation. There is diffuse bone demineralization. Bone alignment is normal. The acromioclavicular and glenohumeral joints are preserved. There is severe subcutaneous edema and foci of air in the lateral subcutaneous tissues which may be related to penetrating injury. Evaluation of the periarticular muscles and tendons is limited on noncontrast CT examination IMPRESSION: Acute comminuted impacted displaced fracture in the neck of the humerus with 1 shaft with medial displacement. No evidence for dislocation. Significant surrounding subcutaneous edema. Evaluation of muscles and tendons is limited on noncontrast CT examination. Underlying muscle contusion cannot be entirely excluded.
[2018-11-13 08:41] LABS: MEAN CELL VOLUME 96.6 fL (81.0-99.0); MEAN CORPUSCULAR HEMOGLOBIN 30.8 pg (27.0-31.0); MEAN CORPUSCULAR HGB CONC 31.9 g/dL (33.0-37.0); MEAN PLATELET VOLUME 9.1 fL (7.2-11.7); RBC 4.46 Mil/uL (3.80-5.20); RED CELL DISTRIBUTION WIDTH 19.2 % (11.5-14.5); WHITE BLOOD COUNT 3.3 K/uL (4.8-10.8)
[2018-11-13 08:51] LABS: HEMOGLOBIN 13.7 g/dL (11.0-16.0)
[2018-11-13 08:52] LABS: IRON 41 ug/dL (37-170)
--- NOTE | 2018-11-13 08:55 | HP ---
The patient is a 58-year-old female. The patient was seen and examined at the bedside on 11/12/2018. CHIEF COMPLAINT: Right extremity pain. HISTORY OF PRESENT ILLNESS: Ms. Amena Zhong is a 58-year-old female with past medical history of congestive heart failure; anxiety; dementia; hypertension; hyperthyroidism; end-stage renal disease, on hemodialysis and fall. The patient was at home and reached out to grab something while in her wheelchair when she fell and all of her body weight went on to the right side causing her to land on the right shoulder. Since then the patient is not able to move right arm. She has end-stage renal disease, on hemodialysis. I saw the patient IN HER room and she was hungry but complaining about extremity pain. No fever. No chills. No hematuria. No hematochezia. No headache or dizziness. PAST MEDICAL HISTORY: History of cholecystectomy; chronic kidney disease, on hemodialysis; abnormal thyroid; hypertension; HIV; diabetes; dementia; congestive heart failure; anxiety. FAMILY HISTORY: Unknown. SOCIAL HISTORY: Tobacco, yes, former smoker. Alcohol, no. Substance abuse, no. REVIEW OF SYSTEMS: The patient was seen and examined at bedside in the dialysis center, complaining about upper extremity pain, right side and abdominal pain and feeling hungry. No fever. No chills. No hematuria. No hematochezia. No headache. No dizziness. No chest pain. No palpitation. PHYSICAL EXAMINATION: VITAL SIGNS: Temperature 98, pulse 78, respiratory rate 20, blood pressure 148/78, pulse oxymetry 97. HEENT: Head, normocephalic and atraumatic. Eyes, PERRLA. Extraocular muscles intact. Conjunctivae clear. Nose patent. Mucous membranes moist. NECK: Supple. No carotid bruits, JVD, or thyromegaly. CHEST: Bilaterally symmetrical. HEART: S1 and S2 positive. LUNGS: Clear to auscultation. ABDOMEN: Soft. Bowel sounds present. No organomegaly. EXTREMITIES: The right shoulder unable to move, tender. Bilateral below-knee amputation. NEUROLOGIC: The patient is awake and alert. Follows simple commands. LABORATORY DATA: White blood cell 6.2, hemoglobin 15.7, hematocrit 49.1, platelet 153. Sodium 136, potassium 5, BUN 43, creatinine 7.6, and glucose 132. ASSESSMENT AND PLAN: Ms. Amena Zhong is a 58-year-old female with renal insufficiency, on hemodialysis; uncontrolled diabetes mellitus with hypocalcemia; history of multiple comorbidities. Upper extremity CT done and chest x-ray done. The patient has history of human immunodeficiency virus, anxiety, congestive heart failure, dementia, diabetes mellitus, hypertension, thyroid problem, end-stage renal disease, cholecystectomy. CAT scan shows acute comminuted, impacted displaced fracture in the neck of the humerus with first shaft medial displacement with no evidence of dislocation. Underlying acute contusions cannot be excluded. The patient is wheelchair bound. Orthopedic, Dr. Fuentes is on the case. Physical therapy and occupational therapy in, discussion with the nursing staff doing pain management. We will follow. Doretha Sherman MD MTDD
[2018-11-13 08:58] LABS: TOTAL IRON BINDING CAPACITY 187 ug/dL (250-450)
[2018-11-13 09:01] LABS: % IRON SATURATION 22 (20-55)
[2018-11-13 11:46] LABS: CALCIUM 8.4 mg/dl (8.6-10.4)
[2018-11-13 12:48] LABS: FOLATE 10.5 ng/mL
--- NOTE | 2018-11-14 06:26 | PN ---
DATE: 11/13/2018 SUBJECTIVE: The patient is a 58-year-old female. The patient was seen and examined at the bedside on 11/13/2018. Complaining about upper extremity pain. No fever. No chills. No headache or dizziness. No chest pain. No palpitation. Right shoulder range of motion is zero. PHYSICAL EXAMINATION: VITAL SIGNS: Temperature 98.8, pulse 74, respiratory rate 20, blood pressure 113/70, pulse oximetry 96. HEENT: Head: Normocephalic, atraumatic. Eyes: PERRLA. Extraocular movements are intact. Conjunctivae clear. Nose patent. Mucous membranes moist. NECK: Supple. No carotid bruits. No JVD or thyromegaly. CHEST: Bilaterally symmetrical. HEART: S1 and S2 positive. LUNGS: Clear to auscultation. ABDOMEN: Soft. Bowel sounds present. No organomegaly. EXTREMITIES: Lower extremity amputation. Above knee bilaterally. Right shoulder range of motion is decreased. NEUROLOGIC: The patient is awake, alert. Follows simple commands. MEDICATIONS: Pepcid, heparin, insulin, metoprolol, morphine. LABORATORY DATA: White blood cells 6, hemoglobin 15.7, hematocrit 49.1, platelets 136. Sodium 136, potassium 5, BUN 43, creatinine 7.3, glucose 149. ASSESSMENT AND PLAN: Mr. Amena Zhong is a 58-year-old lady with renal insufficiency, getting dialysis three times a week, hyperglycemia. Has closed fracture of the right proximal humerus. CT report noted. MRI reviewed . Dr. Fuentes notified and according to him, the patient needs a treatment conservatively of fracture with sling and pain medication at this time due to the patient's comorbidity and increased risk of complications from surgery, PT/OT and physical exam rehab. History of cholecystectomy, abnormal thyroid, hypertension, dermatitis, congestive heart failure, anxiety. Repeat labs. Physical therapy. We will follow up. Doretha Sherman MD MTDD
[2018-11-14] MEDS: (Novolin R) Insulin Human Regular 100 units/ml vial SC SCH ×4 (07:55→22:13)
--- NOTE | 2018-11-14 10:21 | CP.PCM.PN ---
Subjective - Date & Time of Evaluation Date of Evaluation: 11/14/18 Time of Evaluation: 10:18 - Subjective Subjective: Patient seen in HD. Dr. Sherman at bedside. D/w attg regarding concerns of prolonged healing for right prox humerus fx and pt is wheelchair bound and RHD. Concerns relayed to Dr. Fuentes. Patient states arm pain is better today. Objective - Vital Signs/Intake and Output Vital Signs (last 24 hours): Temp Pulse Resp BP Pulse Ox 99.0 F 75 20 117/71 100 11/14/18 07:00 11/14/18 07:00 11/14/18 07:00 11/14/18 07:00 11/14/18 07:00 Intake and Output: 11/14/18 11/14/18 06:59 18:59 Intake Total 240 Balance 240 - Medications Medications: Current Medications Alprazolam (Xanax) 0.25 mg PO BID PRN PRN Reason: Anxiety Stop: 11/21/18 10:01 Last Admin: 11/14/18 08:13 Dose: 0.25 mg Emtricitabine/Tenofovir (Truvada 200 Mg-300 Mg) 1 tab PO Q48H [facility]; Protocol Last Admin: 11/12/18 11:18 Dose: 1 tab Famotidine (Pepcid) 20 mg PO HS [facility] Last Admin: 11/13/18 21:06 Dose: 20 mg Heparin Sodium (Porcine) (Heparin) 5,000 units SC Q12 [facility] Last Admin: 11/13/18 21:06 Dose: 5,000 units Heparin Sodium (Porcine) (Heparin (For Dialysis)) 3,700 units IVP MWF [facility] Last Admin: 11/12/18 17:47 Dose: 3,700 units Insulin Human Regular (Novolin R) 0 unit SC ACHS [facility]; Protocol Last Admin: 11/14/18 07:55 Dose: Not Given Metoprolol Tartrate (Lopressor) 25 mg PO BID [facility] Last Admin: 11/13/18 18:39 Dose: Not Given Morphine Sulfate (Morphine) 2 mg IM Q6 PRN PRN Reason: Pain, moderate (4-7) Last Admin: 11/13/18 10:35 Dose: 2 mg - Labs Labs: 11/13/18 08:23 11/13/18 10:58 PT 11.6 SECONDS (9.7-12.2) 11/12/18 15:46 INR 1.1 11/12/18 15:46 - Extremities Exam Additional comments: RUE: +ROM fingers/wrist, sensation intact, swelling as expected, fingers warm Assessment and Plan (1) Closed fracture of right proximal humerus Assessment & Plan: CT report noted, air noted in right arm not in proximity to fracture site MAR reviewed and patient received IM injection of morphine in right deltoid, this explains air seen on CT rib series negative Dr. Fuentes notified of above PT/OT maintain sling at all times d/w Dr. Fuentes Status: Acute
[2018-11-14] MEDS: Emtricitabine-Tenofovir 200 mg-300 mg Tab PO SCH (13:34)
--- NOTE | 2018-11-15 03:55 | PN ---
DATE: 11/14/2018 SUBJECTIVE: The patient is a 58-year-old female. The patient was seen and examined at bedside on 11/14/2018. The patient was seen in dialysis center. She is getting better. She has a right proximal humerus fracture. Orthopedics is on the case. I have discussion done with the orthopedic chief medical director and the patient's son, the patient's nursing staff. Maybe, the patient has to go to rehab. PHYSICAL EXAMINATION: VITAL SIGNS: Temperature 97, pulse 75, respiratory rate 20, blood pressure 117/71, and pulse oximetry 100%. HEENT: Head; normocephalic and atraumatic. Eyes; PERRLA. Extraocular muscles intact. Conjunctivae are clear. Nose is patent. Mucous membranes are moist. NECK: Supple. No carotid bruits. No JVD. No thyromegaly. CHEST: Bilaterally symmetrical. HEART: S1 and S2 positive. LUNGS: Clear to auscultation. ABDOMEN: Soft. Bowel sounds present. No organomegaly. EXTREMITIES: No edema. No cyanosis. NEUROLOGIC: The patient is awake and alert. Follows simple commands. MEDICATIONS: Xanax, Pepcid, heparin, insulin, metoprolol, morphine. LABORATORY DATA: White blood cells 3.3, hemoglobin 13.7, hematocrit 43.1, platelets 133. Sodium 137, potassium 4.9, BUN 13, creatinine 5.2, and glucose 109. ASSESSMENT AND PLAN: Ms. Amena Zhong is a 58-year-old lady with leukopenia, renal insufficiency, on hemodialysis, hyperglycemia, has closed fracture of the right proximal humerus. CT report noted, rib series negative. Dr. Fuentes knows about the patient's condition. . The patient will need good physical therapy. all that time. I have discussion done with the patient's son, the patient, and the chief medical director. Meanwhile, continue further treatment. Gastrointestinal and deep venous thrombosis prophylaxis. Repeat labs. We will follow up. Doretha Sherman MD
[2018-11-15] MEDS: (Novolin R) Insulin Human Regular 100 units/ml vial SC SCH ×4 (07:58→21:24)
[2018-11-15 08:34] LABS: BASO % 0.6 % (0.0-2.0); EOS # 0.1 K/uL (0.0-0.7); EOS % 2.1 % (0.0-4.0); LYMPH # 0.7 K/uL (1.0-4.3); LYMPH % 19.1 % (20.0-40.0); MEAN CORPUSCULAR HEMOGLOBIN 29.5 pg (27.0-31.0); MEAN CORPUSCULAR HGB CONC 31.4 g/dL (33.0-37.0); MEAN PLATELET VOLUME 8.7 fL (7.2-11.7); MONO # 0.4 K/uL (0.0-0.8); MONO % 10.1 % (0.0-10.0); NEUT # 2.4 K/uL (1.8-7.0); NEUT % 68.1 % (50.0-75.0); NRBC % 0.2 % (0.0-2.0); RBC 3.86 Mil/uL (3.80-5.20); WHITE BLOOD COUNT 3.5 K/uL (4.8-10.8)
[2018-11-15 08:37] LABS: HEMOGLOBIN 11.4 g/dL (11.0-16.0); MEAN CELL VOLUME 93.9 fL (81.0-99.0)
[2018-11-15 08:42] LABS: ALBUMIN 3.6 g/dL (3.5-5.0); AST/SGOT 15 U/L (14-36); BLOOD UREA NITROGEN 27 mg/dL (7-17); CALCIUM 8.6 mg/dl (8.6-10.4); GFR NON-AFRICAN AMERICAN 9
[2018-11-15 08:45] LABS: ALT/SGPT < 6 U/L (9-52)
--- NOTE | 2018-11-15 12:47 | CP.PCM.CON ---
History of Present Illness - History of Present Illness History of Present Illness: Nephrology Consultation Note: Assessment: Stable Fall and Rt humeral fracture Diabetic chronic Kidney Disease (E11.22) Hypertensive Chronic Kidney Disease (I12.0) End stage renal disease (N18.6) dependence on hemodialysis (Z99.2) (MWF) via PC Anemia (D64.9), Hyperphosphatemia (E83.39), Secondary Hyperparathyroidism (E21.1), HTN (I12.0) HIV on HAART Plan: for HD today as MWF schedule. tolerated HD yesterday well continue with Nephrovite 1 tab/day. PRBC as needed for anemia. not On KEESHA last Hb>10 Continue with phos binders home dose, last phos level: check BP control with meds as ordered. Patient not on RAAS leatha but may add if BP high. BP usually on low side Glycemic control, Dialysis consistent diet Further work up/management as per primary team Dose meds/antibiotics (if needed) for ESRD status. Avoid fleets enema/magnesium based laxatives. ortho following Thanks for allowing me to participate in care of your patient. Will follow patient with you. Please call if any Qs. had d/w team Dr Antolin Dominguez Office: [phone] Chief Complaint; fall HPI: Pt is a 58 y/o F with hx of ESRD on hemodialysis (MWF) via PC (trans- hepatic), chronic anemia, hyperphosphatemia, secondary hyperparathyroidism, Diabetes Mellitus, hypertension, HIV on HAART b/l lower extremity amputation came with fall and had Rt humeral fracture. Denies chest pain, palpitation, shortness of breath, thigh swelling she is on HD x [address] Falk @ [facility] ROS: no SOB/chest pain. c/o Rt arm pain. Rest all other negative. Physical Examination: General Appearance: Comfortable, in no acute respiratory distress, co-operative . Vitals reviewed and noted as below Head; Atraumatic, normocephalic ENT: no ulcers no thrush. Tongue is midline. Oropharynx: no rash or ulcers. EYES: Rt Pupil round and reactive to light accommodation. Eye muscles and extraocular movement intact. Sclera is anicteric. left pupil opacified Neck; supple no lymphadenopathy, no thyromegaly or bruit Lungs: Normal respiratory rate/effort. Breath sounds bilateral equal and clear Heart: Normal rate. s1s2 normal. No rub or gallop. Extremities: no edema. No varicose veins. has Rt BKA and left leg amputation Neurological: Patient is alert, awake and oriented to person, place and time. No focal deficit. Strength bilateral appropriate and equal Skin: Warm and dry. Normal turgor. No rash. Palpitation: Normal elasticity for age Abdomen: Abdomen is soft. Bowel sounds +. There is no abdominal tenderness, no guarding/rigidity or organomegaly Psych: normal insight and normal affect/mood MSK: Rt arm in sling, Digits and nails normal, no deformity : kidney or bladder not palpable Access: RUQ trans-hepatic pc Labs/imaging reviewed. Past medical history, past surgical history, family history, social history, allergy reviewed and noted as below Family Hx: no hx of CKD. Non contributory Past Patient History - Infectious Disease Hx of Infectious Diseases: None - Past Medical History & Family History Past Medical History?: Yes Past Family History: Reviewed and not pertinent - Past Social History Smoking Status: Former Smoker - CARDIAC Hx Congestive Heart Failure: Yes Hx Hypertension: Yes - PULMONARY Hx Respiratory Disorders: No - NEUROLOGICAL Hx Dementia: Yes - HEENT Hx HEENT Problems: Yes (wears glasses) Hx Glaucoma: Yes - RENAL Hx Chronic Kidney Disease: Yes Hx Kidney Stones: No - ENDOCRINE/METABOLIC Hx Hypothyroidism: Yes - HEMATOLOGICAL/ONCOLOGICAL Hx Human Immunodeficiency Virus (HIV): Yes - INTEGUMENTARY Hx Dermatological Problems: No - MUSCULOSKELETAL/RHEUMATOLOGICAL Hx Falls: Yes - GASTROINTESTINAL Hx Gastrointestinal Disorders: No - GENITOURINARY/GYNECOLOGICAL Hx Genitourinary Disorders: Yes Other/Comment: oliguria, on hemodialysis MWF - PSYCHIATRIC Hx Anxiety: Yes Hx Substance Use: No - SURGICAL HISTORY Hx Cholecystectomy: Yes - ANESTHESIA Hx Anesthesia: Yes Hx Anesthesia Reactions: No Hx Malignant Hyperthermia: No Meds Allergies/Adverse Reactions: Allergies Allergy/AdvReac Type Severity Reaction Status Date / Time No Known Allergies Allergy Verified 11/11/18 19:31 - Medications Medications: Current Medications Alprazolam (Xanax) 0.25 mg PO HS [facility] Stop: 11/19/18 22:01 Emtricitabine/Tenofovir (Truvada 200 Mg-300 Mg) 1 tab PO Q48H [facility]; Protocol Last Admin: 11/12/18 11:18 Dose: 1 tab Famotidine (Pepcid) 20 mg PO HS [facility] Last Admin: 11/12/18 11:18 Dose: 20 mg Heparin Sodium (Porcine) (Heparin) 5,000 units SC Q12 [facility] Last Admin: 11/12/18 11:18 Dose: 5,000 units Insulin Human Regular (Novolin R) 0 unit SC ACHS [facility]; Protocol Last Admin: 11/12/18 11:52 Dose: Not Given Metoprolol Tartrate (Lopressor) 25 mg PO BID [facility] Last Admin: 11/12/18 11:18 Dose: 25 mg Morphine Sulfate (Morphine) 2 mg IM Q6 PRN PRN Reason: Pain, moderate (4-7) Last Admin: 11/12/18 14:44 Dose: 2 mg Results - Vital Signs Recent Vital Signs: Last Vital Signs Temp 97.5 F L 11/12/18 07:00 Pulse 62 11/12/18 07:00 Resp 20 11/12/18 07:00 BP 141/73 11/12/18 11:18 Pulse Ox 100 11/12/18 07:00 - Labs Result Diagrams: 11/15/18 08:21 11/15/18 08:21 Labs: Laboratory Results - last 24 hr 11/11/18 11/11/18 11/12/18 22:49 23:32 06:30 WBC 6.2 D RBC 5.13 Hgb 15.7 D Hct 49.1 H MCV 95.9 D MCH 30.7 MCHC 32.0 L RDW 20.0 H Plt Count 153 MPV 8.6 Neut % (Auto) 79.0 H Lymph % (Auto) 15.2 L Isabella % (Auto) 4.7 Eos % (Auto) 0.4 Baso % (Auto) 0.7 Neut # (Auto) 4.9 Lymph # (Auto) 0.9 L Isabella # (Auto) 0.3 Eos # (Auto) 0.0 Baso # (Auto) 0.0 POC Glucose (mg/dL) 139 H 130 H 11/12/18 11:15 WBC RBC Hgb Hct MCV MCH MCHC RDW Plt Count MPV Neut % (Auto) Lymph % (Auto) Isabella % (Auto) Eos % (Auto) Baso % (Auto) Neut # (Auto) Lymph # (Auto) Isabella # (Auto) Eos # (Auto) Baso # (Auto) POC Glucose (mg/dL) 151 H
--- NOTE | 2018-11-15 12:48 | CP.PCM.PN ---
Subjective - Date & Time of Evaluation Date of Evaluation: 11/13/18 Time of Evaluation: 14:12 - Subjective Subjective: Nephrology Consultation Note: Assessment: Stable Fall and Rt humeral fracture Diabetic chronic Kidney Disease (E11.22) Hypertensive Chronic Kidney Disease (I12.0) End stage renal disease (N18.6) dependence on hemodialysis (Z99.2) (MWF) via PC Anemia (D64.9), Hyperphosphatemia (E83.39), Secondary Hyperparathyroidism (E21.1), HTN (I12.0) HIV on HAART Plan: Plan for HD as MWF schedule. tolerated HD yesterday well continue with Nephrovite 1 tab/day. PRBC as needed for anemia. not On KEESHA last Hb>10 Continue with phos binders home dose, last phos level: check BP control with meds as ordered. Patient not on RAAS leatha but may add if BP high. BP usually on low side Glycemic control, Dialysis consistent diet Further work up/management as per primary team Dose meds/antibiotics (if needed) for ESRD status. Avoid fleets enema/magnesium based laxatives. ortho following Thanks for allowing me to participate in care of your patient. Will follow patient with you. Please call if any Qs. had d/w team Dr Antolin Dominguez Office: [phone] Chief Complaint; fall HPI: Pt is a 58 y/o F with hx of ESRD on hemodialysis (MWF) via PC (trans- hepatic), chronic anemia, hyperphosphatemia, secondary hyperparathyroidism, Diabetes Mellitus, hypertension, HIV on HAART b/l lower extremity amputation came with fall and had Rt humeral fracture. Denies chest pain, palpitation, shortness of breath, thigh swelling she is on HD x [address] Falk @ [facility] ROS: no SOB/chest pain. c/o Rt arm pain. Rest all other negative. Physical Examination: General Appearance: Comfortable, in no acute respiratory distress, co-operative . Vitals reviewed and noted as below Head; Atraumatic, normocephalic ENT: no ulcers no thrush. Tongue is midline. Oropharynx: no rash or ulcers. EYES: Rt Pupil round and reactive to light accommodation. Eye muscles and extraocular movement intact. Sclera is anicteric. left pupil opacified Neck; supple no lymphadenopathy, no thyromegaly or bruit Lungs: Normal respiratory rate/effort. Breath sounds bilateral equal and clear Heart: Normal rate. s1s2 normal. No rub or gallop. Extremities: no edema. No varicose veins. has Rt BKA and left leg amputation Neurological: Patient is alert, awake and oriented to person, place and time. No focal deficit. Strength bilateral appropriate and equal Skin: Warm and dry. Normal turgor. No rash. Palpitation: Normal elasticity for age Abdomen: Abdomen is soft. Bowel sounds +. There is no abdominal tenderness, no guarding/rigidity or organomegaly Psych: normal insight and normal affect/mood MSK: Rt arm in sling, Digits and nails normal, no deformity : kidney or bladder not palpable Access: RUQ trans-hepatic pc Labs/imaging reviewed. Past medical history, past surgical history, family history, social history, allergy reviewed and noted as below Family Hx: no hx of CKD. Non contributory Objective - Vital Signs/Intake and Output Vital Signs (last 24 hours): Temp Pulse Resp BP Pulse Ox 98.8 F 74 20 121/71 96 11/13/18 07:05 11/13/18 07:05 11/13/18 07:05 11/13/18 10:44 11/13/18 07:05 - Medications Medications: Current Medications Alprazolam (Xanax) 0.25 mg PO HS [facility] Stop: 11/19/18 22:01 Last Admin: 11/12/18 22:49 Dose: 0.25 mg Emtricitabine/Tenofovir (Truvada 200 Mg-300 Mg) 1 tab PO Q48H [facility]; Protocol Last Admin: 11/12/18 11:18 Dose: 1 tab Famotidine (Pepcid) 20 mg PO HS [facility] Last Admin: 11/12/18 22:49 Dose: 20 mg Heparin Sodium (Porcine) (Heparin) 5,000 units SC Q12 [facility] Last Admin: 11/13/18 10:45 Dose: 5,000 units Heparin Sodium (Porcine) (Heparin (For Dialysis)) 3,700 units IVP MWF [facility] Last Admin: 11/12/18 17:47 Dose: 3,700 units Insulin Human Regular (Novolin R) 0 unit SC ACHS [facility]; Protocol Last Admin: 11/13/18 12:09 Dose: Not Given Metoprolol Tartrate (Lopressor) 25 mg PO BID [facility] Last Admin: 11/13/18 10:44 Dose: 25 mg Morphine Sulfate (Morphine) 2 mg IM Q6 PRN PRN Reason: Pain, moderate (4-7) Last Admin: 11/13/18 10:35 Dose: 2 mg - Labs Labs: 11/13/18 08:23 11/13/18 10:58 PT 11.6 SECONDS (9.7-12.2) 11/12/18 15:46 INR 1.1 11/12/18 15:46
--- NOTE | 2018-11-15 12:49 | CP.PCM.PN ---
Subjective - Date & Time of Evaluation Date of Evaluation: 11/14/18 Time of Evaluation: 13:49 - Subjective Subjective: Nephrology Consultation Note: Assessment: Stable Fall and Rt humeral fracture Diabetic chronic Kidney Disease (E11.22) Hypertensive Chronic Kidney Disease (I12.0) End stage renal disease (N18.6) dependence on hemodialysis (Z99.2) (MWF) via PC Anemia (D64.9), Hyperphosphatemia (E83.39), Secondary Hyperparathyroidism (E21.1), HTN (I12.0) HIV on HAART Plan: Plan for HD as MWF schedule. tolerated HD yesterday well continue with Nephrovite 1 tab/day. PRBC as needed for anemia. not On KEESHA last Hb>10 Continue with phos binders home dose, last phos level: check BP control with meds as ordered. Patient not on RAAS leatha but may add if BP high. BP usually on low side Glycemic control, Dialysis consistent diet Further work up/management as per primary team Dose meds/antibiotics (if needed) for ESRD status. Avoid fleets enema/magnesium based laxatives. ortho following Thanks for allowing me to participate in care of your patient. Will follow patient with you. Please call if any Qs. had d/w team Dr Antolin Dominguez Office: [phone] Chief Complaint; fall HPI: Pt is a 58 y/o F with hx of ESRD on hemodialysis (MWF) via PC (trans- hepatic), chronic anemia, hyperphosphatemia, secondary hyperparathyroidism, Diabetes Mellitus, hypertension, HIV on HAART b/l lower extremity amputation came with fall and had Rt humeral fracture. Denies chest pain, palpitation, shortness of breath, thigh swelling she is on HD x [address] Falk @ [facility] ROS: no SOB/chest pain. c/o Rt arm pain but better. Rest all other negative. Physical Examination: seen during HD General Appearance: Comfortable, in no acute respiratory distress, co-operative . Vitals reviewed and noted as below Head; Atraumatic, normocephalic ENT: no ulcers no thrush. Tongue is midline. Oropharynx: no rash or ulcers. EYES: Rt Pupil round and reactive to light accommodation. Eye muscles and extraocular movement intact. Sclera is anicteric. left pupil opacified Neck; supple no lymphadenopathy, no thyromegaly or bruit Lungs: Normal respiratory rate/effort. Breath sounds bilateral equal and clear Heart: Normal rate. s1s2 normal. No rub or gallop. Extremities: no edema. No varicose veins. has Rt BKA and left leg amputation Neurological: Patient is alert, awake and oriented to person, place and time. No focal deficit. Strength bilateral appropriate and equal Skin: Warm and dry. Normal turgor. No rash. Palpitation: Normal elasticity for age Abdomen: Abdomen is soft. Bowel sounds +. There is no abdominal tenderness, no guarding/rigidity or organomegaly Psych: normal insight and normal affect/mood MSK: Rt arm in sling, Digits and nails normal, no deformity : kidney or bladder not palpable Access: RUQ trans-hepatic pc Labs/imaging reviewed. Past medical history, past surgical history, family history, social history, allergy reviewed and noted as below Family Hx: no hx of CKD. Non contributory Objective - Vital Signs/Intake and Output Vital Signs (last 24 hours): Temp Pulse Resp BP Pulse Ox 98.0 F 96 H 18 108/60 100 11/14/18 12:50 11/14/18 12:50 11/14/18 12:50 11/14/18 12:50 11/14/18 12:50 Intake and Output: 11/14/18 11/14/18 06:59 18:59 Intake Total 240 Balance 240 - Medications Medications: Current Medications Alprazolam (Xanax) 0.25 mg PO BID PRN PRN Reason: Anxiety Stop: 11/21/18 10:01 Last Admin: 11/14/18 08:13 Dose: 0.25 mg Emtricitabine/Tenofovir (Truvada 200 Mg-300 Mg) 1 tab PO Q48H [facility]; Protocol Last Admin: 11/14/18 13:34 Dose: 1 tab Famotidine (Pepcid) 20 mg PO HS [facility] Last Admin: 11/13/18 21:06 Dose: 20 mg Heparin Sodium (Porcine) (Heparin) 5,000 units SC Q12 [facility] Last Admin: 11/14/18 11:36 Dose: Not Given Heparin Sodium (Porcine) (Heparin (For Dialysis)) 3,700 units IVP MWF [facility] Last Admin: 11/12/18 17:47 Dose: 3,700 units Insulin Human Regular (Novolin R) 0 unit SC ACHS [facility]; Protocol Last Admin: 11/14/18 11:37 Dose: Not Given Metoprolol Tartrate (Lopressor) 25 mg PO BID [facility] Last Admin: 11/14/18 11:37 Dose: Not Given Morphine Sulfate (Morphine) 2 mg IM Q6 PRN PRN Reason: Pain, moderate (4-7) Last Admin: 11/13/18 10:35 Dose: 2 mg - Labs Labs: 11/13/18 08:23 11/13/18 10:58 PT 11.6 SECONDS (9.7-12.2) 11/12/18 15:46 INR 1.1 11/12/18 15:46
--- NOTE | 2018-11-15 12:49 | CP.PCM.PN ---
Subjective - Date & Time of Evaluation Date of Evaluation: 11/15/18 Time of Evaluation: 12:49 - Subjective Subjective: Nephrology Consultation Note: Assessment: Stable Fall and Rt humeral fracture Diabetic chronic Kidney Disease (E11.22) Hypertensive Chronic Kidney Disease (I12.0) End stage renal disease (N18.6) dependence on hemodialysis (Z99.2) (MWF) via PC Anemia (D64.9), Hyperphosphatemia (E83.39), Secondary Hyperparathyroidism (E21.1), HTN (I12.0) HIV on HAART Plan: Plan for HD as MWF schedule. tolerated HD yesterday well continue with Nephrovite 1 tab/day. PRBC as needed for anemia. not On KEESHA last Hb>10 Continue with phos binders home dose, last phos level: check BP control with meds as ordered. Patient not on RAAS leatha but may add if BP high. BP usually on low side Glycemic control, Dialysis consistent diet Further work up/management as per primary team Dose meds/antibiotics (if needed) for ESRD status. Avoid fleets enema/magnesium based laxatives. ortho following Thanks for allowing me to participate in care of your patient. Will follow patient with you. Please call if any Qs. had d/w team Dr Antolin Dominguez Office: [phone] Chief Complaint; fall HPI: Pt is a 58 y/o F with hx of ESRD on hemodialysis (MWF) via PC (trans- hepatic), chronic anemia, hyperphosphatemia, secondary hyperparathyroidism, Diabetes Mellitus, hypertension, HIV on HAART b/l lower extremity amputation came with fall and had Rt humeral fracture. Denies chest pain, palpitation, shortness of breath, thigh swelling she is on HD x [address] Falk @ [facility] ROS: no SOB/chest pain. c/o Rt arm pain but better. Rest all other negative. Physical Examination: General Appearance: Comfortable, in no acute respiratory distress, co-operative . Vitals reviewed and noted as below Head; Atraumatic, normocephalic ENT: no ulcers no thrush. Tongue is midline. Oropharynx: no rash or ulcers. EYES: Rt Pupil round and reactive to light accommodation. Eye muscles and extraocular movement intact. Sclera is anicteric. left pupil opacified Neck; supple no lymphadenopathy, no thyromegaly or bruit Lungs: Normal respiratory rate/effort. Breath sounds bilateral equal and clear Heart: Normal rate. s1s2 normal. No rub or gallop. Extremities: no edema. No varicose veins. has Rt BKA and left leg amputation Neurological: Patient is alert, awake and oriented to person, place and time. No focal deficit. Strength bilateral appropriate and equal Skin: Warm and dry. Normal turgor. No rash. Palpitation: Normal elasticity for age Abdomen: Abdomen is soft. Bowel sounds +. There is no abdominal tenderness, no guarding/rigidity or organomegaly Psych: normal insight and normal affect/mood MSK: Rt arm in sling, Digits and nails normal, no deformity : kidney or bladder not palpable Access: RUQ trans-hepatic pc Labs/imaging reviewed. Past medical history, past surgical history, family history, social history, allergy reviewed and noted as below Family Hx: no hx of CKD. Non contributory Objective - Vital Signs/Intake and Output Vital Signs (last 24 hours): Temp Pulse Resp BP Pulse Ox 9839 F H 83 20 77/52 L 96 11/15/18 07:00 11/15/18 07:00 11/15/18 07:00 11/15/18 07:00 11/15/18 07:00 Intake and Output: 11/15/18 11/15/18 06:59 18:59 Intake Total 200 Balance 200 - Medications Medications: Current Medications Albumin Human (Albumin Human 25% (12.5 Gm/50 Ml)) 25 gm IV MWF PRN PRN Reason: Give during HD if BP <90/50 Alprazolam (Xanax) 0.25 mg PO BID PRN PRN Reason: Anxiety Stop: 11/21/18 10:01 Last Admin: 11/14/18 08:13 Dose: 0.25 mg Emtricitabine/Tenofovir (Truvada 200 Mg-300 Mg) 1 tab PO Q48H [facility]; Protocol Last Admin: 11/14/18 13:34 Dose: 1 tab Famotidine (Pepcid) 20 mg PO HS [facility] Last Admin: 11/14/18 21:21 Dose: 20 mg Heparin Sodium (Porcine) (Heparin (For Dialysis)) 3,700 units IVP MWF [facility] Last Admin: 11/12/18 17:47 Dose: 3,700 units Insulin Human Regular (Novolin R) 0 unit SC ACHS [facility]; Protocol Last Admin: 11/15/18 11:48 Dose: Not Given Metoprolol Tartrate (Lopressor) 25 mg PO BID [facility] Last Admin: 11/15/18 09:20 Dose: Not Given Morphine Sulfate (Morphine) 2 mg IM Q6 PRN PRN Reason: Pain, moderate (4-7) Last Admin: 11/15/18 09:03 Dose: 2 mg Vitamin B Complex/Vit C/Folic Acid (Nephro-Carlos) 1 tab PO 0800 [facility] - Labs Labs: 11/15/18 08:21 11/15/18 08:21 PT 11.6 SECONDS (9.7-12.2) 11/12/18 15:46 INR 1.1 11/12/18 15:46
[2018-11-16] MEDS: (Novolin R) Insulin Human Regular 100 units/ml vial SC SCH ×4 (07:32→21:24)
[2018-11-16 08:34] LABS: EOS # 0.1 K/uL (0.0-0.7); EOS % 3.3 % (0.0-4.0); HEMOGLOBIN 11.7 g/dL (11.0-16.0); LYMPH % 25.7 % (20.0-40.0); MEAN CELL VOLUME 94.3 fL (81.0-99.0); MEAN CORPUSCULAR HEMOGLOBIN 30.5 pg (27.0-31.0); MEAN CORPUSCULAR HGB CONC 32.3 g/dL (33.0-37.0); MEAN PLATELET VOLUME 8.9 fL (7.2-11.7); MONO # 0.5 K/uL (0.0-0.8); MONO % 12.2 % (0.0-10.0); NEUT # 2.2 K/uL (1.8-7.0); NEUT % 57.8 % (50.0-75.0); NRBC % 0.1 % (0.0-2.0); RBC 3.83 Mil/uL (3.80-5.20); RED CELL DISTRIBUTION WIDTH 19.1 % (11.5-14.5); WHITE BLOOD COUNT 3.8 K/uL (4.8-10.8)
[2018-11-16] MEDS: Multivitamin Vitamin B Complex (Nephro-Vite) Tab PO SCH (09:00)
[2018-11-16 09:04] LABS: ALB/GLOB RATIO 1.1 (1.0-2.1); ALBUMIN 3.8 g/dL (3.5-5.0); ALT/SGPT < 6 U/L (9-52); AST/SGOT 20 U/L (14-36); BLOOD UREA NITROGEN 49 mg/dL (7-17); CALCIUM 8.3 mg/dl (8.6-10.4); GFR NON-AFRICAN AMERICAN 6
[2018-11-16] MEDS: Emtricitabine-Tenofovir 200 mg-300 mg Tab PO SCH (09:48)
--- NOTE | 2018-11-16 11:56 | CP.PCM.PN ---
Subjective - Date & Time of Evaluation Date of Evaluation: 11/16/18 Time of Evaluation: 11:55 - Subjective Subjective: Nephrology Consultation Note: Assessment: Stable Fall and Rt humeral fracture Hypotension, chronic Diabetic chronic Kidney Disease (E11.22) Hypertensive Chronic Kidney Disease (I12.0) End stage renal disease (N18.6) dependence on hemodialysis (Z99.2) (MWF) via PC Anemia (D64.9), Hyperphosphatemia (E83.39), Secondary Hyperparathyroidism (E21.1), HTN (I12.0) HIV on HAART Plan: Plan for HD as MWF schedule. tolerated HD yesterday well continue with Nephrovite 1 tab/day. PRBC as needed for anemia. not On KEESHA last Hb>10 Continue with phos binders home dose, last phos level: check Patient not on RAAS leatha but may add if BP high. BP usually on low side, will add midodrine prn. check am cortisol level. Glycemic control, Dialysis consistent diet Further work up/management as per primary team Dose meds/antibiotics (if needed) for ESRD status. Avoid fleets enema/magnesium based laxatives. ortho following Thanks for allowing me to participate in care of your patient. Will follow patient with you. Please call if any Qs. had d/w team Dr Antolin Dominguez Office: [phone] Chief Complaint; fall HPI: Pt is a 58 y/o F with hx of ESRD on hemodialysis (MWF) via PC (trans- hepatic), chronic anemia, hyperphosphatemia, secondary hyperparathyroidism, Diabetes Mellitus, hypertension, HIV on HAART b/l lower extremity amputation came with fall and had Rt humeral fracture. Denies chest pain, palpitation, shortness of breath, thigh swelling she is on HD x [address] Falk @ [facility] ROS: no SOB/chest pain. Rest all other negative. Physical Examination: General Appearance: Comfortable, in no acute respiratory distress, co-operative . Vitals reviewed and noted as below Head; Atraumatic, normocephalic ENT: no ulcers no thrush. Tongue is midline. Oropharynx: no rash or ulcers. EYES: Rt Pupil round and reactive to light accommodation. Eye muscles and extraocular movement intact. Sclera is anicteric. left pupil opacified Neck; supple no lymphadenopathy, no thyromegaly or bruit Lungs: Normal respiratory rate/effort. Breath sounds bilateral equal and clear Heart: Normal rate. s1s2 normal. No rub or gallop. Extremities: no edema. No varicose veins. has Rt BKA and left leg amputation Neurological: Patient is alert, awake and oriented to person, place and time. No focal deficit. Strength bilateral appropriate and equal Skin: Warm and dry. Normal turgor. No rash. Palpitation: Normal elasticity for age Abdomen: Abdomen is soft. Bowel sounds +. There is no abdominal tenderness, no guarding/rigidity or organomegaly Psych: normal insight and normal affect/mood MSK: Rt arm in sling, Digits and nails normal, no deformity : kidney or bladder not palpable Access: RUQ trans-hepatic pc Labs/imaging reviewed. Past medical history, past surgical history, family history, social history, allergy reviewed and noted as below Family Hx: no hx of CKD. Non contributory Objective - Vital Signs/Intake and Output Vital Signs (last 24 hours): Temp Pulse Resp BP Pulse Ox 97.5 F L 79 20 86/46 L 97 11/16/18 07:00 11/16/18 07:00 11/16/18 07:00 11/16/18 07:00 11/16/18 07:00 - Medications Medications: Current Medications Albumin Human (Albumin Human 25% (12.5 Gm/50 Ml)) 25 gm IV MWF PRN PRN Reason: Give during HD if BP <90/50 Alprazolam (Xanax) 0.25 mg PO BID PRN PRN Reason: Anxiety Stop: 11/21/18 10:01 Last Admin: 11/14/18 08:13 Dose: 0.25 mg Emtricitabine/Tenofovir (Truvada 200 Mg-300 Mg) 1 tab PO Q48H [facility]; Protocol Last Admin: 11/16/18 09:48 Dose: Not Given Famotidine (Pepcid) 20 mg PO HS [facility] Last Admin: 11/15/18 22:00 Dose: Not Given Heparin Sodium (Porcine) (Heparin (For Dialysis)) 3,700 units IVP MWF [facility] Last Admin: 11/12/18 17:47 Dose: 3,700 units Insulin Human Regular (Novolin R) 0 unit SC ACHS [facility]; Protocol Last Admin: 11/16/18 07:32 Dose: Not Given Metoprolol Tartrate (Lopressor) 25 mg PO BID [facility] Last Admin: 11/15/18 17:53 Dose: Not Given Midodrine (Proamatine) 10 mg PO TID PRN PRN Reason: if BP <90/50 Morphine Sulfate (Morphine) 2 mg IM Q6 PRN PRN Reason: Pain, moderate (4-7) Last Admin: 11/15/18 09:03 Dose: 2 mg Vitamin B Complex/Vit C/Folic Acid (Nephro-Carlos) 1 tab PO 0800 [facility] Last Admin: 11/16/18 09:00 Dose: Not Given - Labs Labs: 11/16/18 08:20 11/16/18 08:20 PT 11.6 SECONDS (9.7-12.2) 11/12/18 15:46 INR 1.1 11/12/18 15:46
--- NOTE | 2018-11-17 06:50 | PN ---
DATE: 11/15/2018 SUBJECTIVE: The patient is a 58-year-old female. The patient was seen and examined at bedside on 11/15/2018. The patient is looking comfortable. No fever. No chills. No hematuria, no hematochezia. No headache, no dizziness. No chest pain, no palpitation. PHYSICAL EXAMINATION: VITAL SIGNS: Temperature 98.3, pulse 83, respiratory rate 20, blood pressure 77/52, pulse oximetry 96. HEENT: Head: Normocephalic and atraumatic. Eyes: PERRLA. Extraocular muscles intact. Conjunctivae clear. Nose patent. Mucous membranes moist. NECK: Supple. No carotid bruits, no JVD or thyromegaly. CHEST: Bilaterally symmetrical. HEART: S1, S2 positive. LUNGS: Clear to auscultation. ABDOMEN: Soft. Bowel sounds present. No organomegaly. EXTREMITIES: No edema. No cyanosis. NEUROLOGIC: The patient is awake and alert, moving all four extremities. No focal deficits. MEDICATIONS: Xanax and HIV medication, Pepcid, heparin and NovoLog, Lopressor, morphine. LABORATORY DATA: White blood cells 3.5, hemoglobin 11.4, hematocrit 36.3, platelets 144. Sodium 133, potassium 4.1, BUN 27, creatinine 5.1, glucose 111. ASSESSMENT: Ms. Amena Zhong is a 58-year-old lady with hypochloremia, renal insufficiency, hypoglycemia, getting hemodialysis three times a week status post fall, right humerus fracture, diabetic chronic kidney disease, hypertensive chronic kidney disease, hyperphosphatemia, secondary hyperparathyroidism. PLAN: Continue dialysis, continue Nephro-Carlos , packed RBC as needed when hemoglobin dropped less than 10. Phosphorus binders dose, last phosphorus level checked. Try to control blood pressure. Due to fracture of the extremity, the patient needs rehab, but surgeon is on the case. Reverse Engineer is on the case, the pain management. Discussion done with the patient that she needs rehab which she agrees, even son agrees, waiting for the social professionals's input, shows approval, we will come back. Doretha Sherman MD
[2018-11-17] MEDS: (Novolin R) Insulin Human Regular 100 units/ml vial SC SCH ×2 (07:45→11:33)
[2018-11-17] MEDS: Multivitamin Vitamin B Complex (Nephro-Vite) Tab PO SCH (08:04)
--- NOTE | 2018-11-17 09:13 | PN ---
DATE: 11/16/2018 SUBJECTIVE: The patient is a 58-year-old female. The patient was seen and examined on the beside, looking comfortable. No fever. No chills. No headache. No dizziness. No chest pain. No palpitation. As per the patient, pain is getting better. No hematuria or hematochezia. PHYSICAL EXAMINATION: VITAL SIGNS: Temperature 98.3, pulse 83, respiratory rate 20, blood pressure 77/52, and pulse oximetry 96%. HEENT: Head; normocephalic and atraumatic. Eyes; PERRLA. Extraocular muscles are intact. Conjunctivae clear. Nose patent. Mucous membranes moist. NECK: Supple. No carotid bruit, JVD, or thyromegaly. CHEST: Bilaterally symmetrical. HEART: S1 and S2 positive. LUNGS: Clear to auscultation. ABDOMEN: Soft. Bowel sounds are present. No organomegaly. EXTREMITIES: Upper extremity; one extremity has AV fistula, other extremity has pain. Right extremity has fracture, so range of motion is decreased in both lower extremities, has amputation. MEDICATIONS: Albumin, Xanax, HIV medications, Pepcid, heparin, insulin, metoprolol. LABORATORY DATA: White blood cells 3.5, hemoglobin 11.4, hematocrit 36.3 and platelets 144. Sodium 133, potassium 4.1, BUN 27, creatinine 4.1 and glucose 111. ASSESSMENT AND PLAN: The patient is a 58-year-old lady with leukopenia, renal insufficiency, getting hemodialysis, hyperglycemia, hypochloremia, history of fall and right humerus fracture, diabetic nephropathy, diabetic retinopathy, diabetic neuropathy, hypertensive chronic kidney disease, hyperphosphatemia, secondary hyperparathyroidism, hypertension, human immunodeficiency virus on highly active antiretroviral therapy. The patient is getting dialysis on Saturday, Saturday, and Saturday as scheduled. Continue nephro vitamins, packed red blood cells if hemoglobin drop than 10. Continue phosphate binders, glycemic control. The patient is very deconditioned, is not able to do activities of daily living, looking for subacute rehabilitation. Discussion done with the patient and the patient's son. Repeat labs. We will follow up. Doretha Sherman MD [facility] # [id number]
[2018-11-17] MEDS ORDERED: Albumin Human 25% (12.5 gm/50 ml) IV PRN (10:20)
--- NOTE | 2018-11-17 11:05 | CP.PCM.PN ---
Subjective - Date & Time of Evaluation Date of Evaluation: 11/17/18 Time of Evaluation: 11:04 - Subjective Subjective: Nephrology Consultation Note: Assessment: Stable Fall and Rt humeral fracture Hypotension, chronic Diabetic chronic Kidney Disease (E11.22) Hypertensive Chronic Kidney Disease (I12.0) End stage renal disease (N18.6) dependence on hemodialysis (Z99.2) (MWF) via PC Anemia (D64.9), Hyperphosphatemia (E83.39), Secondary Hyperparathyroidism (E21.1), HTN (I12.0) HIV on HAART Plan: Plan for HD as MWF schedule. continue with Nephrovite 1 tab/day. PRBC as needed for anemia. not On KEESHA last Hb>10 Continue with phos binders home dose, last phos level: check Patient not on RAAS leatha as BP usually on low side, will add midodrine and IV albumin prn. sent am cortisol level:11 Glycemic control, Dialysis consistent diet Further work up/management as per primary team Dose meds/antibiotics (if needed) for ESRD status. Avoid fleets enema/magnesium based laxatives. ortho following. pt for conservative management and JOO placement. Thanks for allowing me to participate in care of your patient. Will follow patient with you. Please call if any Qs. had d/w team Dr Antolin Dominguez Office: [phone] Chief Complaint; fall HPI: Pt is a 58 y/o F with hx of ESRD on hemodialysis (MWF) via PC (trans-he patic), chronic anemia, hyperphosphatemia, secondary hyperparathyroidism, Diabetes Mellitus, hypertension, HIV on HAART b/l lower extremity amputation came with fall and had Rt humeral fracture. Denies chest pain, palpitation, shortness of breath, thigh swelling she is on HD x [address] Falk @ [facility] ROS: no SOB/chest pain. Rest all other negative. Physical Examination: seen during HD General Appearance: Comfortable, in no acute respiratory distress, co-operative . Vitals reviewed and noted as below Head; Atraumatic, normocephalic ENT: no ulcers no thrush. Tongue is midline. Oropharynx: no rash or ulcers. EYES: Rt Pupil round and reactive to light accommodation. Eye muscles and extraocular movement intact. Sclera is anicteric. left pupil opacified Neck; supple no lymphadenopathy, no thyromegaly or bruit Lungs: Normal respiratory rate/effort. Breath sounds bilateral equal and clear Heart: Normal rate. s1s2 normal. No rub or gallop. Extremities: no edema. No varicose veins. has Rt BKA and left leg amputation Neurological: Patient is alert, awake and oriented to person, place and time. No focal deficit. Strength bilateral appropriate and equal Skin: Warm and dry. Normal turgor. No rash. Palpitation: Normal elasticity for age Abdomen: Abdomen is soft. Bowel sounds +. There is no abdominal tenderness, no guarding/rigidity or organomegaly Psych: normal insight and normal affect/mood MSK: Rt arm in sling, Digits and nails normal, no deformity : kidney or bladder not palpable Access: RUQ trans-hepatic pc Labs/imaging reviewed. Past medical history, past surgical history, family history, social history, allergy reviewed and noted as below Family Hx: no hx of CKD. Non contributory Objective - Vital Signs/Intake and Output Vital Signs (last 24 hours): Temp Pulse Resp BP Pulse Ox 97.9 F 69 18 110/59 L 100 11/17/18 09:20 11/17/18 09:20 11/17/18 09:20 11/17/18 10:50 11/17/18 09:20 - Medications Medications: Current Medications Albumin Human (Albumin Human 25% (12.5 Gm/50 Ml)) 25 gm IV MWF PRN PRN Reason: Give during HD if BP <90/50 Alprazolam (Xanax) 0.25 mg PO BID PRN PRN Reason: Anxiety Stop: 11/21/18 10:01 Last Admin: 11/16/18 21:53 Dose: 0.25 mg Famotidine (Pepcid) 20 mg PO HS KATARINA Last Admin: 11/16/18 21:53 Dose: 20 mg Heparin Sodium (Porcine) (Heparin (For Dialysis)) 3,700 units IVP MWF K[facility]INA Last Admin: 11/17/18 10:45 Dose: 3,700 units Insulin Human Regular (Novolin R) 0 unit SC ACHS [facility]; Protocol Last Admin: 11/17/18 07:45 Dose: Not Given Ketorolac Tromethamine (Toradol) 10 mg PO Q6 PRN PRN Reason: Pain, moderate (4-7) Last Admin: 11/17/18 09:11 Dose: 10 mg Metoprolol Tartrate (Lopressor) 25 mg PO BID [facility] Last Admin: 11/15/18 17:53 Dose: Not Given Midodrine (Proamatine) 10 mg PO TID PRN PRN Reason: if BP <90/50 Last Admin: 11/17/18 10:38 Dose: 10 mg Morphine Sulfate (Morphine) 2 mg IM Q6 PRN PRN Reason: Pain, severe (8-10) Stop: 11/20/18 12:00 Vitamin B Complex/Vit C/Folic Acid (Nephro-Carlos) 1 tab PO 0800 [facility] Last Admin: 11/17/18 08:04 Dose: 1 tab - Labs Labs: 11/16/18 08:20 11/16/18 08:20 PT 11.6 SECONDS (9.7-12.2) 11/12/18 15:46 INR 1.1 11/12/18 15:46
--- NOTE | 2018-11-17 11:50 | CP.PCM.PN ---
Subjective - Date & Time of Evaluation Date of Evaluation: 11/17/18 Time of Evaluation: 11:50 - Subjective Subjective: Orthopedic progress note for Dr. Fuentes Patient seen and examined at bedside in dialysis. Pain is well controlled to the R shoulder. She offers no other complaints. Denies CP/SOb/dizziness/fever. Objective - Vital Signs/Intake and Output Vital Signs (last 24 hours): Temp Pulse Resp BP Pulse Ox 97.9 F 69 18 100/50 L 100 11/17/18 09:20 11/17/18 09:20 11/17/18 09:20 11/17/18 11:20 11/17/18 09:20 - Medications Medications: Current Medications Albumin Human (Albumin Human 25% (12.5 Gm/50 Ml)) 25 gm IV MWF PRN PRN Reason: Give during HD if BP <90/50 Alprazolam (Xanax) 0.25 mg PO BID PRN PRN Reason: Anxiety Stop: 11/21/18 10:01 Last Admin: 11/16/18 21:53 Dose: 0.25 mg Famotidine (Pepcid) 20 mg PO [facility] Last Admin: 11/16/18 21:53 Dose: 20 mg Heparin Sodium (Porcine) (Heparin (For Dialysis)) 3,700 units IVP MWF [facility] Last Admin: 11/17/18 10:45 Dose: 3,700 units Heparin Sodium (Porcine) (Heparin (For Dialysis)) 2,000 units IVP MWF [facility] Last Admin: 11/17/18 11:14 Dose: 2,000 units Insulin Human Regular (Novolin R) 0 unit SC [facility]; Protocol Last Admin: 11/17/18 11:33 Dose: Not Given Ketorolac Tromethamine (Toradol) 10 mg PO Q6 PRN PRN Reason: Pain, moderate (4-7) Last Admin: 11/17/18 09:11 Dose: 10 mg Metoprolol Tartrate (Lopressor) 25 mg PO BID [facility] Last Admin: 11/15/18 17:53 Dose: Not Given Midodrine (Proamatine) 10 mg PO TID PRN PRN Reason: if BP <90/50 Last Admin: 11/17/18 10:38 Dose: 10 mg Morphine Sulfate (Morphine) 2 mg IM Q6 PRN PRN Reason: Pain, severe (8-10) Stop: 11/20/18 12:00 Vitamin B Complex/Vit C/Folic Acid (Nephro-Carlos) 1 tab PO 0800 [facility] Last Admin: 11/17/18 08:04 Dose: 1 tab - Labs Labs: 11/16/18 08:20 11/16/18 08:20 PT 11.6 SECONDS (9.7-12.2) 11/12/18 15:46 INR 1.1 11/12/18 15:46 - Extremities Exam Additional comments: RUE: sling in place no lesions, no erythema sensation and motor intact AXN/MN/Un/Rn radial pulse intact Assessment and Plan (1) Closed fracture of right proximal humerus Assessment & Plan: -Despite being dependent on manual wheel chair, Dr. Fuentes recommends nonoperative management due to patient's multiple comorbidities -Continue sling immobilization RUE -recommend obtain automated wheelchair -orthopedically stable for discharge -f/u in office in 7-10 days -d/w Dr. Fuentes who agrees with above Status: Acute
[2018-11-17 12:46] VITALS: PULSE 86; RESP 16
[2018-11-17 13:14] VITALS: BP 103/64; TEMP 97.4; O2SAT 96
--- NOTE | 2018-11-17 18:06 | PCM.HF ---
Heart Failure Core Measure JACKY Inhibitor Prescribed: No Contraindication/Reason for not providing: ESRD Beta-Jorge L Prescribed: Metoprolol Succinate Angiotensin II Receptor Jorge L Prescribed: No Contraindication/Reason for not providing: ESRD - Follow up Will be discharged to: Detention Facility ([facility]
== END 2018-11-17 16:26 | DRG 562 ==
LOC: C.ER 19:09 → C.9E 23:26 → C.6T 11-12 00:31 → OBSVTOIN 11-14 14:57 → C.6T 11-16 10:01
PROVIDERS: ADMIT Internal Medicine; ATTEND Internal Medicine
PROC: 5A1D70Z Performance of Urinary Filtration, Intermittent, Less than 6 Hours Per Day (ICD-10-PCS; principal; 2018-11-14)
DX: S42.291A Other displaced fracture of upper end of right humerus, initial encounter for closed fracture (principal); N18.6 End stage renal disease; I13.2 Hypertensive heart and chronic kidney disease with heart failure and with stage 5 chronic kidney disease, or end stage renal disease; J98.11 Atelectasis; N25.81 Secondary hyperparathyroidism of renal origin; Z90.49 Acquired absence of other specified parts of digestive tract; W05.0XXA Fall from non-moving wheelchair, initial encounter; Z21 Asymptomatic human immunodeficiency virus [HIV] infection status; E11.65 Type 2 diabetes mellitus with hyperglycemia; Z99.2 Dependence on renal dialysis; I50.9 Heart failure, unspecified; F03.90 Unspecified dementia, unspecified severity, without behavioral disturbance, psychotic disturbance, mood disturbance, and anxiety; E11.22 Type 2 diabetes mellitus with diabetic chronic kidney disease; F41.9 Anxiety disorder, unspecified; E11.51 Type 2 diabetes mellitus with diabetic peripheral angiopathy without gangrene; Z87.891 Personal history of nicotine dependence; E03.9 Hypothyroidism, unspecified; D63.1 Anemia in chronic kidney disease; Z79.4 Long term (current) use of insulin

== ENCOUNTER 2018-12-04 08:47 | Day surgery (SDC) | payer MEDICARE, OTHER ==
[2018-12-04] MEDS ORDERED: Lidocaine 2% MPF (5 ml) Inj ONE (09:44)
[2018-12-04 09:45] VITALS: BMI 24.9
[2018-12-04 10:12] LABS: INR 1.1; PROTHROMBIN TIME 11.5 SECONDS (9.7-12.2)
[2018-12-04] MEDS ORDERED: Midazolam 2 MG/2 ML VIAL ONE (10:44)
--- NOTE | 2018-12-04 11:20 | CP.SDSHP ---
Same Day Surgery H & P - History Proposed Procedure: HD catheter exchange Pre-Op Diagnosis: esrd - Allergies Allergies: Allergies No Known Allergies Allergy (Verified 11/11/18 19:31) - Impression Impression: Pt with ESRD and multiple failed AVF along with central venous occlusion. Pt with a failing transhepatic AVF. Pt. Evaluated Today:Candidate for Anesthesia & Procedure: Yes (ASA 3 Malampati 3) - Date & Time Date: 12/04/18 Time: 11:15 Short Stay Discharge - Short Stay Discharge Admitting Diagnosis/Reason for Visit: TRANSHEPATIC CATHETER REVISION Disposition: HOME/ ROUTINE
--- NOTE | 2018-12-04 11:28 | PCM.SURG1 ---
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 Post-Operative Diagnosis: esrd Operation Performed: New HD catheter placed, 27 cm cuff to tip. Specimen/Specimens Removed: NONE Estimated Blood Loss: EBL {In ML}: 5 Blood Products Given: N/A Drains Used: No Drains Post-Op Condition: Fair Date of Surgery/Procedure: 12/04/18 Time of Surgery/Procedure: 11:20
== END 2018-12-04 12:46 | disposition home or self-care (01) ==
LOC: C.SPRAD 08:47
PROVIDERS: ATTEND Radiology Vascular & Interventional Radiology
DX: I13.2 Hypertensive heart and chronic kidney disease with heart failure and with stage 5 chronic kidney disease, or end stage renal disease (principal); E11.22 Type 2 diabetes mellitus with diabetic chronic kidney disease; N18.6 End stage renal disease; I50.9 Heart failure, unspecified; E78.5 Hyperlipidemia, unspecified
CPT/HCPCS: 36415; 36582; 77001; 82948; 85610; C1750; C1769; J1644; J2250; J3010